=== PATIENT | female | born 1950 | race Caucasian/White ===

== ENCOUNTER 2019-10-04 13:48 | Emergency (ER) | payer OTHER, SELFPAY ==
[2019-10-04 13:49] VITALS: BP 160/74; PULSE 90; RESP 17; TEMP 36.7; O2SAT 99; BMI 17.9
--- NOTE | 2019-10-04 14:24 | EKG12_ITS ---
Test Reason : Blood Pressure : / mmHG Vent. Rate : 082 BPM Atrial Rate : 082 BPM P-R Int : 166 ms QRS Dur : 082 ms QT Int : 362 ms P-R-T Axes : 075 058 069 degrees QTc Int : 422 ms Normal sinus rhythm Normal ECG Confirmed by BRYANNA ALMANZAR MD ([id number]), assignment desk editor GLEN MARK ([id number]) on 10/06/2019 1:47:32 PM Referred By: AUGUSTIN Confirmed By:BRYANNA ALMANZAR MD
--- NOTE | 2019-10-04 14:24 | RAD_ITS ---
STUDY: X-RAY CHEST REASON FOR EXAM: Female, 68 years old. Cough and chest pain for 2 days. TECHNIQUE: PA and lateral views of the chest. COMPARISON: 10/11/2015. FINDINGS: There is an infiltrate in right middle lobe likely due to pneumonia. There is no demonstrated pleural abnormality. Normal size heart. Normal mediastinum and maria d. Normal visualized pulmonary arteries. Normal visualized aortic arch and descending thoracic aorta. Normal visualized thoracic spine. Normal visualized ribs, clavicles, and shoulders. There is no demonstrated abnormality of the visualized soft tissue structures of the upper abdomen. RAD/Chest PA and Lateral IMPRESSION: Right middle lobe infiltrate likely due to pneumonia. Electronically Signed: Gildardo Fleming MD at 14:59 EST Tel , Service support ,
[2019-10-04] MEDS: 0.9% Normal Saline 1,000 ML 999 ML IV (14:35)
[2019-10-04] MEDS: Acetaminophen 500 MG Tablet 1000 MG PO (14:35)
[2019-10-04 14:49] LABS: Absolute Lymphocyte Count 2.75 X10^3/uL (0.83-4.51); Absolute Neutrophil Count 14.6 X10^3/uL (2.0-7.7); Basophil# 0.04 X10^3/uL; Basophil% 0.2 % (0-1); Eosinophil# 0.08 X10^3/uL; Eosinophils% 0.4 % (0-5); Hematocrit 36.5 % (37-47); Hemoglobin 11.9 g/dL (12.0-15.0); Lymphocyte # 2.75 X10^3/ul (4.0); Lymphocyte % 14.4 % (19-41); Mean Corp Hgb Conc 32.6 g/dL (32-36); Mean Corpuscular Hgb 31.2 pg (27.0-32.0); Mean Corpuscular Volume 95.5 fL (81-99); Mean Platelet Vol. 9.9 fl (6.2-12.0); Monocyte# 1.49 X10^3/uL; Monocyte% 7.8 % (0-10); NRBC Flagged by Analyzer 0 % (0-5); Neutrophil # 14.58 X10^3/uL (2.7-7.7); Neutrophil % 76.6 % (47-70); Platelet Count 224 K/mm3 (150-450); RBC Distribution Width CV 13.7 % (11.6-14.6); RBC Distribution Width SD 48.5 fl (35.1-43.9); Red Blood Count 3.82 M/mm3 (4.2-5.4); White Blood Count 19.1 K/mm3 (4.4-11.0)
[2019-10-04 15:00] VITALS: BP 132/58; PULSE 84; RESP 13; O2SAT 99
[2019-10-04 15:15] LABS: Anion Gap 4 (5-15); BUN 19 mg/dL (7-18); BUN/Creat Ratio 20.8 RATIO (10-20); Calcium,Total 9.7 mg/dL (8.5-10.1); Chloride 104 mmol/L (98-107); Creatinine, Serum 0.91 mg/dL (0.55-1.02); EST Glomerular Filtration Rate 65 mL/min (>60); Est Glom Filt Rate - Afr Amer 78 mL/min (>60); Estimated Creatinine Clearance 38.32 ml/min; Glucose 93 mg/dL (74-106); Potassium 3.4 mmol/L (3.5-5.1); Sodium Level 138 mmol/L (136-145)
[2019-10-04 16:12] LABS: Lactic Acid 0.9 mmol/L (0.4-1.9)
--- NOTE | 2019-10-04 16:43 | ED.DCSUM_ITS ---
- ER Visit Summary Date of Service: 10/04/19 Chief Complaint: Cough History of Present Illness: The patient is a [address] Graham. She reports she has a cough that began 2 days ago. She denies any difficulty breathing. Her cough is nonproductive. She reports she had a fever to 100.5 degrees and chills. She does complain of myalgias and a headache that is 4-10 in severity. She does have a history of similar headaches. Patient reports that she has right-sided chest pain that began yesterday. Is a constant pain. It is aching and 7 out of 10 in severity. Is increased with deep breaths. There is no change with exertion. She did not have a flu shot this year. Physical Examination: Vitals: Stable. Afebrile. General: Well-nourished and well-developed. Head: Normocephalic atraumatic. Neck: Supple, no lymphadenopathy. No JVD. Nontender. Cardiovascular: Regular rate and rhythm. No murmurs. Respiratory: No respiratory distress. Clear to auscultation bilaterally. Abdominal: Soft, nontender, nondistended, normal bowel sounds. No guarding, rebound, or peritoneal signs. Back: Nontender. Extremities: Nontender, no edema. Skin: Normal color, no rash. Neurologic: Alert and oriented ?3. Cranial nerves II through XII are intact. Normal strength and sensation. Psych: Normal affect. Test Results: EKG is sinus at [address] changes. Troponin is negative despite greater than 12 hours of constant pain. Influenza is negative. Lactic acid is 0.9. Chem-7 shows a potassium of 3.4 and BUN of 19. CBC shows a white count of 19.1 with 77 segmented neutrophils and 14 lymphocytes. H&H is 11.9 36.5. Clinical Impression(s) from Imaging Studies Chest X-Ray 10/04/19 14:24 IMPRESSION: Right middle lobe infiltrate likely due to pneumonia. Electronically Signed: Gildardo Fleming MD at 14:59 EST Tel , Service support , Emergency Department Course and Treatment: Patient was given a dose of doxycycline IV. Her port score is 60. She feels well and would like to go home. Treatment Plan: Patient be discharged with doxycycline. Instructed to follow-up with her primary care physician in 5 days for another exam. Return to the emergency department for any worsening symptoms. Disposition: To home in improved and stable condition. Impression: 1. Pneumonia. This note was generated with [employer] dictation software. It may contain incorrect words, spelling, and punctuation that were not noted in review of the chart prior to signing ED Disposition - Plan for ED Patient: Instructions: PNEUMONIA (Adult) Prescriptions: Doxycycline 100 mg PO BID #14 cap Transmission Status: Pending to [facility]/pharmacy #[id number] Referrals: Fabian Graham MD [Primary Care Provider] - 3-5 Days
[2019-10-04 17:33] VITALS: BP 146/79; PULSE 82; RESP 20; O2SAT 97
[2019-10-04] MEDS: Doxycycline 100 MG CAPSULE PO (17:33)
--- NOTE | 2019-10-04 17:34 | ED.RN ---
THIS NURSE REVIEWED D/C INSTRUCTIONS WITH PT. PT VERBALIZED UNDERSTANDING OF INSTRUCTIONS. IV D/C. PT TOLERATED WELL. PT DENIES FURTHER NEEDS OR QUESTIONS AT THIS TIME. PT AMBULATES FROM ROOM ON OWN WITHOUT ASSISTANCE FROM STAFF
== END 2019-10-04 17:35 | disposition home or self-care (01) ==
PROVIDERS: Emergency Provider Emergency Medicine; Family Provider Family Medicine; PCP Family Medicine
DX: J18.9 Pneumonia, unspecified organism (principal); I10 Essential (primary) hypertension; Z79.899 Other long term (current) drug therapy
CPT/HCPCS: 71046; 80048; 83605; 84484; 85025; 87040; 87804; 93005; 96361; 96365; 96366; 99284; J7030; A4216

== ENCOUNTER → 2019-11-27 14:21 | Outpatient (CLI) | payer OTHER, SELFPAY ==
[2019-12-01 20:07] LABS: Alternaria tenuis <0.10 kU/L (Class 0); Ash, White <0.10 kU/L (Class 0); Aspergillus fumigatus <0.10 kU/L (Class 0); Bermuda Grass <0.10 kU/L (Class 0); Birch <0.10 kU/L (Class 0); Black Walnut <0.10 kU/L (Class 0); Cat Hair / Dander,Stand <0.10 kU/L (Class 0); Cedar, Mountain <0.10 kU/L (Class 0); Cladosporium herbarum <0.10 kU/L (Class 0); Cockroach, American <0.10 kU/L (Class 0); Cottonwood <0.10 kU/L (Class 0); D farinae Mite <0.10 kU/L (Class 0); D pteronyssinus <0.10 kU/L (Class 0); Dog Epithelia <0.10 kU/L (Class 0); Elm, American White <0.10 kU/L (Class 0); Immunoglobulin E < 2 IU/mL (6-495); Maple/Box Elder <0.10 kU/L (Class 0); Mulberry, White <0.10 kU/L (Class 0); Oak, White <0.10 kU/L (Class 0); Pecan <0.10 kU/L (Class 0); Penicillium Notatum <0.10 kU/L (Class 0); Pigweed, Rough <0.10 kU/L (Class 0); Ragweed, Short/Common <0.10 kU/L (Class 0); Russian Thistle <0.10 kU/L (Class 0); Sheep Sorrel <0.10 kU/L (Class 0); Sycamore, American <0.10 kU/L (Class 0); Timothy Grass <0.10 kU/L (Class 0)
[2019-12-01 21:23] LABS: Mouse Urine <0.10 kU/L (Class 0)
== END ==
PROVIDERS: PCP Family Medicine; Referring Provider Otolaryngology; Visit Provider Otolaryngology
DX: T78.40XA Allergy, unspecified, initial encounter (principal)
CPT/HCPCS: 36415; 82785; 86003

== ENCOUNTER → 2020-04-30 13:29 | Outpatient (CLI) | payer OTHER, SELFPAY ==
--- NOTE | 2020-04-30 13:44 | STE_ITS ---
Reason For Study: CHEST PAIN/PALPS Stress Results Protocol: Kurt Protocol Maximum Predicted HR: 149 bpm Target HR: 127 bpm % Maximum Predicted HR: 90 % DurationHeart Rate Stage (mm:ss) (bpm) BP Comment BASELINE 71 122/76 STAGE 1 3:00 110 182/58 STAGE 2 3:00 134 220/56SL SOB, BP ELEVATED, NO CHEST PAIN RECOVERY 86 150/60 Stress Duration: 6:00 mm:ss Maximum Stress HR: 134 bpm Baseline Echocardiogram Findings Stress Echo Wall motion Data Resting WM Intermediate WM Stress WM Interpretation Summary Exercise stress echo. 69-year-old lady with a history of hypertension. Stress protocol: Resting EKG demonstrates normal sinus rhythm with a rate of 73 bpm normal intervals are noted resting blood pressure is 122/76 mmHg. The patient exercised according to regular Kurt protocol for total duration of 6 minutes. The maximum heart rate was 144 bpm which was 96% of maximum predicted heart rate the maximum workload was 7 metabolic equivalents. The patient maintained sinus rhythm throughout the recording. At rest there were no ST or T wave changes noted to suggest ischemia at peak exercise upsloping ST changes only were noted with intermediate criteria for ischemia. The resting blood pressure was 122/76 with a peak blood pressure of 220/56 mmHg. Hypertensive response to exercise was noted. Stress echocardiographic images. Resting echocardiographic images demonstrated normal left ventricular systolic function with normal wall thickness there was mild mitral calcification noted. The estimated ejection fraction at rest was 55%. At peak exercise there was thickening of all barnes reduction in low ventricular cavity size and peaking of ejection fraction approximately 65%. No ischemia was noted. Conclusion: Normal exercise stress echo with no evidence of ischemia at a moderate workload. Normal resting and stress echocardiographic images. Good functional capacity. Ordering Physician: Renita Calderon Referring Physician: Renita Calderon Performed By: Prema Bledsoe, HALIE, RVT
== END ==
PROVIDERS: PCP Family Medicine; Referring Provider Registered Nurse; Visit Provider Registered Nurse
DX: R07.9 Chest pain, unspecified (principal); R00.2 Palpitations
CPT/HCPCS: 93017; 93350

== ENCOUNTER → 2020-07-08 15:55 | Outpatient (CLI) | payer OTHER, SELFPAY ==
--- NOTE | 2020-07-08 16:00 | BD_ITS ---
PROCEDURE: DUAL ENERGY X-RAY ABSORPTIOMETRY / DXA REASON FOR EXAM: Female, 69 years old. Screening exam TECHNIQUE: Bone Mineral Density (BMD) measurements of lumbar spine and bilateral hips were obtained. COMPARISON: None. FINDINGS: Lumbar Spine (L1-L2): (0.888) g/cm2/ T-score (-2.3) / Z-score (-0.6) Right Femur Total: (0.701) g/cm2/ T-score (-2.4) / Z-score (-0.9) BD/Dexa Bone Density Study IMPRESSION: The patient is considered osteopenic, as outlined above, according to World Health Organization (WHO) criteria. Fracture risk is moderate. Reference Information: The T-score is the number of standard deviations above or below the standard which is normal for young adults at their peak bone mineral density. The World Health Organization (WHO) interprets the T-scores as follows: Above -1 Normal bone density Between -1 and -2.5 Osteopenia Equal to / or below -2.5 Osteoporosis As a practical clinical guideline, osteopenia may be graded as follows: Mild -1 through -1.5 Moderate -1.6 through -2.0 Severe -2.1 through -2.4 The Z-score is the number of standard deviations above or below age-matched controls. A Z-score of less than -1.5 would be considered abnormal. References: 1. NIH Osteoporosis and Related Bone Diseases http://www.osteo.org 2. International Society for Clinical Densitometry http://www.iscd.org 3. National Osteoporosis Foundation http://www.nof.org Electronically Signed: Reilly Klein MD at 23:55 EDT , Service support ,
== END ==
PROVIDERS: PCP Family Medicine; Referring Provider Registered Nurse; Visit Provider Registered Nurse
DX: Z78.0 Asymptomatic menopausal state (principal)
CPT/HCPCS: 77080

== ENCOUNTER 2020-11-19 10:09 | Emergency (ER) | payer OTHER, SELFPAY ==
[2020-11-19 10:09] VITALS: BP 93/49; PULSE 84; RESP 18; TEMP 36.2; O2SAT 98; BMI 18.9
--- NOTE | 2020-11-19 10:41 | CT_ITS ---
STUDY: CT ABDOMEN AND PELVIS WITH CONTRAST REASON FOR EXAM: Female, 70 years old. DIARRHEA SINCE SUNDAY. ABDOMINAL PAIN. RADIATION DOSAGE (If Supplied By Facility): CTDIvol = ( 7.505 ) mGy, DLP = ( 238.60 ) mGycm TECHNIQUE: Transaxial images were obtained from the dome of the diaphragm to the symphysis pubis without oral contrast. IV 100mL Isovue-370 was administered. Sagittal and coronal images were reconstructed. Individualized dose optimization techniques were used for this CT. COMPARISON: None. FINDINGS: There is a 5.5 mm well-defined nodule in the central inferior portion of the right breast. Minimal increased markings in the lingular segment of the left upper lobe suggestive of atelectasis. The visualized portions of the heart are within normal limits. Normal liver. Normal gallbladder and extrahepatic biliary system. Normal spleen. Normal pancreas. Normal bilateral adrenal glands. 1.3 cm cyst in the upper pole of the right kidney. Normal left kidney. Normal visualized stomach. Normal small intestine. There are scattered colonic diverticula consistent with diverticulosis. The appendix is visualized and appears normal. There is diffuse atherosclerotic calcification of the abdominal aorta, without a demonstrated aneurysm. Normal inferior vena cava. There is borderline retroperitoneal lymphadenopathy with enlarged nodes no greater than 10mm in the short axis diameter. Normal urinary bladder. There is enlargement of uterus for the patient''s stated age. Within the body of uterus, is a 1.3 cm x 1.3 cm fibroid. Normal abdominal wall. There are degenerative changes of the visualized lumbar spine. Mild dextroscoliosis. CT/Abdomen/Pelvis W IV Cont ONLY IMPRESSION: Fibroid uterus. Sigmoid diverticulosis. Electronically Signed: Chris Mejia MD at 12:19 EST , Service support ,
--- NOTE | 2020-11-19 10:41 | ED.DCSUM_ITS ---
History of Present Illness Chief Complaint: Nausea/Vomiting/Diarrhea Informant: Patient Narrative: 70-year-old female presenting with diarrhea and nausea. She states she has been this way for the last 5 days. She does report a history of having problems with her diet for many years. She states that this started being worse after she had C. difficile colitis. Patient denies any recent antibiotics use. She states that she ate something that did not agree with her now she has diarrhea and nausea. She has generalized abdominal pain. She states that she has not followed up to have this problem addressed because she always feels like she is going to get better. She denies fever, urinary complaints, vaginal complaints, black or bloody stools. She does relate a history of having to eat very slowly and only certain foods. She is also lactose intolerant. She states that if she goes to her daughter's house to spend time with the family she cannot eat over there because of the high activity and it makes her nauseous. - Past Medical History (1) Gastroenteritis Status: Chronic (2) History of Clostridium difficile colitis Status: Chronic (3) Osteoarthritis Status: Chronic Past Medical History - Allergies and Home Meds Allergies/Adverse Reactions: Allergies Sulfa (Sulfonamide Antibiotics) Allergy (Verified 11/19/20 10:11) Unknown azithromycin [From Zithromax Z-Bruce] Adverse Reaction (Verified 11/19/20 10:11) Nausea Primary Care Physician: Fabian Graham MD [Primary Care Provider] - Prior records reviewed: Yes Past Medical History: - - Reviewed in problem list Surgical History: noncontributory Lives: Alone Smoking Status: Never smoker Alcohol: None Drugs: None - Family History Paternal Family History: Family History (Last Updated 02/14/18 @ 13:32 by Zenobia Thayer) Mother Hypertension Family History: Reports: No pertinent history - No History of colon cancer in first-degree family relative. Review of Systems General: Denies: Chills, Fever, Sweats Eyes: Denies: Visual changes - bilaterally, Diplopia ENT: Denies: Rhinorrhea, Sore throat Cardiovascular: Denies: Chest pain, Palpitations Respiratory: Denies: Dyspnea, Cough, Dyspnea on exertion Gastrointestinal: Reports: Abdominal pain, Nausea, Diarrhea Genitourinary: Denies: Dysuria, Hematuria, Frequency Musculoskeletal: Denies: Back pain, Extremity Pain Skin: Denies: Rash, Wounds Neurological: Denies: Headache, Weakness, Numbness Psych: Denies: Depression, Anxiety Physical Exam Vital Signs/Narrative: Vital Signs Temp Pulse Resp BP Pulse Ox 11/19/20 10:09 97.1 F L 84 18 93/49 L 98 General: Well nourished, No Acute Distress Head: Normocephalic, Atraumatic Eyes: Perrl, EOMI. Negative for: Scleral icterus ENT: Moist mucous membranes, No rhinorrhea Cardiovascular: Regular rate, Regular rhythm Respiratory: No distress, CTA bilaterally Abdomen: Soft, Nondistended, Tender - Mild generalized tenderness. Abdomen is nonperitoneal. No focal tenderness palpated. Extremities: Nontender, No edema Skin: Normal color, No rash. Negative for: Cyanosis, Diaphoresis Neurological: Alert, Oriented x3, Cranial nerves II-XII grossly intact Psychological: Normal affect, Normal Mood Diagnostic/Tx/Re-eval Clinical Impression(s) from Imaging Studies Abdomen/Pelvis CT 11/19/20 10:41 IMPRESSION: Fibroid uterus. Sigmoid diverticulosis. Electronically Signed: Chris Mejia MD at 12:19 EST , Service support , Laboratory Data 11/19/20 11/19/20 11/19/20 11:00 11:00 12:20 WBC 7.5 RBC 4.08 L Hgb 12.5 Hct 38.1 MCV 93.4 MCH 30.6 MCHC 32.8 RDW Std Deviation 45.0 H RDW Coeff of Pat 13.1 Plt Count 283 MPV 10.6 Immature Gran % (Auto) 0.500 Neut % (Auto) 73.9 H Lymph % (Auto) 21.1 [place] % (Auto) 4.1 Eos % (Auto) 0.1 Baso % (Auto) 0.3 Absolute Neuts (auto) 5.5 Absolute Lymphs (auto) 1.58 Nucleated RBC % 0 Sodium 135 L Potassium 3.7 Chloride 100 Carbon Dioxide 19.0 L Anion Gap 16 H BUN 29 H Creatinine 1.16 H Estim Creat Clear Calc 30.45 Est GFR (MDRD) Af Amer 59 L Est GFR (MDRD) Non-Af 49 L BUN/Creatinine Ratio 25.0 H Glucose 67 L Calcium 9.9 Total Bilirubin 0.50 AST 37 ALT 28 Alkaline Phosphatase 124 H Total Protein 7.7 Albumin 3.9 Globulin 3.8 Albumin/Globulin Ratio 1.0 Lipase 60 L Urine Color Yellow Urine Clarity Clear Urine pH 5.0 Ur Specific [place] 1.015 Urine Protein 15 H Urine Glucose (UA) Normal Urine Ketones 150 H Urine Occult Blood Negative Urine Nitrite Negative Urine Bilirubin Negative Urine Urobilinogen Normal Ur Leukocyte Esterase Negative Urine RBC 0 SEEN Urine WBC 0 SEEN Ur Squamous Epith Cells 0 SEEN Urine Bacteria 0 SEEN Urine Mucus 0 SEEN - Medical Decision Making Presents for concern of dehydration as she has had chronic diarrhea which is worsened over the last several days. She does state that she has generalized abdominal pain as well. Patient's lab work shows that she is dehydrated and she is given a liter of IV fluids. She was given Zofran for her nausea and on reevaluation she felt improved. CT of the abdomen pelvis shows no acute process. Patient will be given a prescription for Zofran for home so that she can stay hydrated. I recommended that she follow-up with her PCP for possible GI referral. She acknowledged understanding. Patient to be discharged at this time. Impression: 1. Nausea 2. Diarrhea 3. Abdominal pain ED Disposition - Plan for ED Patient: Disposition: Home or Assisted Living Instructions: ED Vomiting and Diarrhea ... Prescriptions: Ondansetron [Zofran Odt] 4 mg PO Q8H PRN PRN #14 tab PRN Reason: Nausea Transmission Status: Received by [facility]/pharmacy #[id number] Referrals: Fabian Graham MD [Primary Care Provider] -
[2020-11-19] MEDS: 0.9% Normal Saline 1,000 ML 1000 ML IV (11:01)
[2020-11-19] MEDS: Ondansetron 4 MG/2 ML Vial IV (11:03)
[2020-11-19 11:19] LABS: Absolute Lymphocyte Count 1.58 X10^3/uL (0.83-4.51); Absolute Neutrophil Count 5.5 X10^3/uL (2.0-7.7); Basophil# 0.02 X10^3/uL; Basophil% 0.3 % (0-1); Eosinophil# 0.01 X10^3/uL; Eosinophils% 0.1 % (0-5); Hematocrit 38.1 % (37-47); Hemoglobin 12.5 g/dL (12.0-15.0); Lymphocyte # 1.58 X10^3/ul (4.0); Lymphocyte % 21.1 % (19-41); Mean Corp Hgb Conc 32.8 g/dL (32-36); Mean Corpuscular Hgb 30.6 pg (27.0-32.0); Mean Corpuscular Volume 93.4 fL (81-99); Mean Platelet Vol. 10.6 fl (6.2-12.0); Monocyte# 0.31 X10^3/uL; Monocyte% 4.1 % (0-10); NRBC Flagged by Analyzer 0 % (0-5); Neutrophil # 5.54 X10^3/uL (2.7-7.7); Neutrophil % 73.9 % (47-70); Platelet Count 283 K/mm3 (150-450); RBC Distribution Width CV 13.1 % (11.6-14.6); Red Blood Count 4.08 M/mm3 (4.2-5.4); White Blood Count 7.5 K/mm3 (4.4-11.0)
[2020-11-19 11:37] LABS: AST(SGOT) 37 U/L (15-37); Alanine Aminotransfer ALT/SGPT 28 U/L (13-56); Albumin, Serum 3.9 g/dL (3.2-5.0); Alkaline Phosphatase 124 U/L (45-117); Anion Gap 16 (5-15); BUN 29 mg/dL (7-18); Calcium,Total 9.9 mg/dL (8.5-10.1); Chloride 100 mmol/L (98-107); Creatinine, Serum 1.16 mg/dL (0.55-1.02); EST Glomerular Filtration Rate 49 mL/min (>60); Est Glom Filt Rate - Afr Amer 59 mL/min (>60); Estimated Creatinine Clearance 30.45 ml/min; Globulin 3.8 g/dL (2.2-4.2); Glucose 67 mg/dL (74-106); Lipase 60 U/L (73-393); Potassium 3.7 mmol/L (3.5-5.1); Protein, Total 7.7 g/dL (6.4-8.2); Sodium Level 135 mmol/L (136-145)
[2020-11-19 12:24] VITALS: BP 147/46; PULSE 84; RESP 16; O2SAT 99
[2020-11-19 12:26] LABS: Bacteria 0 SEEN /hpf (None Seen); Mucous, Urine 0 SEEN /hpf (<or=2+); Red Blood Cells-Urine 0 SEEN /hpf (0-5); Squamous Epithelial Cells - UA 0 SEEN /hpf (5-10); White Blood Cells 0 SEEN /hpf (0-5)
[2020-11-19 12:30] LABS: Color, Urine Yellow (Yellow); Glucose, Dipstick Normal (Normal); Leukocyte Esterase-Dipstick Negative /ul (Negative); Nitrite-Dipstick Negative (Negative); Occult Blood-Urine Negative /ul (Negative); Protein-Dipstick 15 mg/dl (Negative); Specific Gravity, Urine 1.015 (1.002-1.030); Urine Bilirubin Dipstick Negative (Negative); Urine Clarity Clear (Clear); Urine Urobilinogen Normal (Normal)
[2020-11-19 12:34] LABS: Ketone-Dipstick 150 mg/dl (Negative)
== END 2020-11-19 12:52 | disposition home or self-care (01) ==
PROVIDERS: Emergency Provider Student in an Organized Health Care Education/Training Program; PCP Family Medicine
DX: R11.2 Nausea with vomiting, unspecified (principal); R19.7 Diarrhea, unspecified; R10.9 Unspecified abdominal pain; Z86.19 Personal history of other infectious and parasitic diseases
CPT/HCPCS: 74177; 80053; 81001; 83690; 85025; 96374; 99283; J7030; Q9967; J2405

== ENCOUNTER → 2020-11-22 09:34 | Outpatient (CLI) | payer OTHER, SELFPAY ==
[2020-11-22 07:51] VITALS: BMI 18.9
[2020-11-22] MEDS: 0.9% Normal Saline 1,000 ML 666.7 ML IV ×2 (09:59→11:31)
[2020-11-22] MEDS: 0.9% NaCl Peripheral Flush Adult/Peds IV (09:59)
[2020-11-22 10:00] VITALS: BP 135/41; PULSE 79; RESP 16; TEMP 36.1; O2SAT 99; BMI 18.9
[2020-11-22 13:07] VITALS: BP 138/54; PULSE 79
== END ==
PROVIDERS: PCP Family Medicine; Referring Provider Surgery; Visit Provider Surgery
DX: R19.7 Diarrhea, unspecified (principal); E86.0 Dehydration
CPT/HCPCS: 96369; 96370 ×2; 96360; 96361; J7030; A4216

== ENCOUNTER 2020-11-23 05:22 | Day surgery (SDC) | payer OTHER, SELFPAY ==
[2020-11-22 07:51] VITALS: BMI 18.9
[2020-11-22 10:00] VITALS: BMI 18.9
[2020-11-23] VITALS (7 sets, daily range): BP systolic 143–175; BP diastolic 59–75; PULSE 72–81; RESP 16; TEMP 36.1–36.7; O2SAT 97–100; BMI 18.1
--- NOTE | 2020-11-23 06:06 | PCM.HP.BLA ---
Problem List (1) Diarrhea Status: Acute Qualifiers: (2) Dehydration Status: Acute History and Physical Date of Admission: 11/23/20 Intake Visit Reasons: diarrhea Chief Complaint: diarrhea Allergies Sulfa (Sulfonamide Antibiotics) Allergy (Verified 11/22/20 07:53) Unknown azithromycin [From Zithromax Z-Bruce] Adverse Reaction (Verified 11/22/20 07:53) Nausea Medications Glucosamine/MSM/Chondroitin A [Glucosamine Chondroit MSM Tab] 1 ea PO DAILY 10/11/15 [History Confirmed 11/22/20] Lisinopril [Zestril] 20 mg PO DAILY 10/11/15 [History Confirmed 11/22/20] Multivitamin [Daily Multiple Vitamin] 1 ea PO DAILY 10/11/15 [History Confirmed 11/22/20] Loratadine [Claritin] 10 mg PO DAILY 02/04/17 [History Confirmed 11/22/20] hydrochlorothiazide 12.5 mg capsule 12.5 mg PO QDAY 02/14/18 [History Confirmed 11/22/20] potassium chloride 20 mEq tablet,extended release 8 meq PO BID 02/14/18 [History Confirmed 11/22/20] Ondansetron [Zofran Odt] 4 mg PO Q8H PRN PRN #14 tab 11/19/20 [Rx Confirmed 11/22/20] PFSH Medical History Hemorrhoid (Acute) History of Clostridium difficile colitis (Chronic) Osteoarthritis (Chronic) Chronic back pain (Acute) Hypertension (Chronic) Syncope (Acute) Gastroenteritis (Chronic) Diarrhea (Acute) Fatigue (Acute) Nausea (Acute) Sleep apnea (Acute) Weight loss (Acute) Surgical History S/P tonsillectomy (Acute) S/P colonoscopy (Acute ~01/2007) Family History (Updated 11/22/20 @ 07:51 by Shelby Gallego) Mother Hypertension Father Heart disease Cancer skin cancer Social History (Updated 11/22/20 @ 08:[address] Mikael Dominguez MD) Smoking Status: Never smoker alcohol intake: never substance use type: does not use HPI HPI HPI: LAURENCE KOROMA, is a 70 F who presents to the office today for surgical consultation regarding an acute exacerbation of her diarrhea. She was referred by Dr. Fabian Graham and a written copy of my surgical consult recommendations will return to him. This is a 70-year-old female. She has had problems with diarrhea dating all the way back to 2006. She states that she was hospitalized for 13 days with what ended up being C. difficile colitis. She had a colonoscopy done by Dr. Arnold Millan at that time. The patient states that it was very uncomfortable throughout the entire procedure and that because of that she has been very hesitant to proceed with another. She was actually seen by Dr. Alonzo from 2 years ago when his colonoscopy was recommended. The patient declined to did not schedule because of her previous episode. She states a week ago she had a takeout meal from [employer]. Soon thereafter she became ill. She had profuse diarrhea. She states that as she has been prescribed before she tried some Imodium. She states that first 4 days running she had diarrhea felt she was dehydrated she started taking her electrolyte drink. Now this is similar to multiple episodes that she has had. She did not notice any bright red blood per rectum or melena. Her concern this occasion is that the episode has lasted longer. It is for that reason then she went to the [facility] emergency room on November 19, 2020. A CT scan was obtained with contrast. This demonstrated an incidental 5.5 mm well-defined nodule in the central inferior portion of the right breast. She had had screening mammography done at [facility] May 2020 which were interpreted as normal. The CT scan also showed a fibroid uterus and sigmoid diverticulosis. There was borderline retroperitoneal adenopathy. To my view the gallbladder wall is very prominent. It measures only 2 mm. Radiology interpreted as normal. Her laboratory demonstrated a BUN of 29 and a creatinine of 1.16 with an estimated GFR of 49. Albumin was 3.9. Total protein 7.7. Lipase was 60. Alkaline phosphatase slightly elevated 124. The remainder of the liver function tests were normal. Potassium was normal at 3.7. Her white blood cell count was 7.5 with a hemoglobin 12.5 hematocrit 38.1 platelet count 283,000 with 73.9% neutrophils. The patient by report received a liter IV fluid and was discharged home. Then as an outpatient she submitted a stool analysis to the [facility]. Initial reports suggest that C. difficile and fecal leukocytes are still pending. Her fecal fat was negative. Other review suggesting Shigella and E. coli and Campylobacter and Shiga toxin and Salmonella were all not detected Abdomen/Pelvis CT [facility] [address] [place] [address] Abdomen/Pelvis W IV Cont ONLY MR#: [id number]:[id number] Name: LAURENCE KOROMA [facility] #:[id number] : 1950F 70 From: Chris Mejia MD PCP:Dr. Fabian Graham MD Status:REG ER Study:Abdomen/Pelvis W IV Cont ONLY Date of Exam:11/19/20 Exam#[id number] Ordering Dr: Garry Edwards DO STUDY: CT ABDOMEN AND PELVIS WITH CONTRAST REASON FOR EXAM: Female, 70 years old. DIARRHEA SINCE SUNDAY. ABDOMINAL PAIN. RADIATION DOSAGE (If Supplied By Facility): CTDIvol = ( 7.505 ) mGy, DLP = ( 238.60 ) mGycm TECHNIQUE: Transaxial images were obtained from the dome of the diaphragm to the symphysis pubis without oral contrast. IV 100mL Isovue-370 was administered. Sagittal and coronal images were reconstructed. Individualized dose optimization techniques were used for this CT. COMPARISON: None. FINDINGS: There is a 5.5 mm well-defined nodule in the central inferior portion of the right breast. Minimal increased markings in the lingular segment of the left upper lobe suggestive of atelectasis. The visualized portions of the heart are within normal limits. Normal liver. Normal gallbladder and extrahepatic biliary system. Normal spleen. Normal pancreas. Normal bilateral adrenal glands. 1.3 cm cyst in the upper pole of the right kidney. Normal left kidney. Normal visualized stomach. Normal small intestine. There are scattered colonic diverticula consistent with diverticulosis. The appendix is visualized and appears normal. There is diffuse atherosclerotic calcification of the abdominal aorta, without a demonstrated aneurysm. Normal inferior vena cava. There is borderline retroperitoneal lymphadenopathy with enlarged nodes no greater than 10mm in the short axis diameter. Normal urinary bladder. There is enlargement of uterus for the patient''s stated age. Within the body of uterus, is a 1.3 cm x 1.3 cm fibroid. Normal abdominal wall. There are degenerative changes of the visualized lumbar spine. Mild dextroscoliosis. CT/Abdomen/Pelvis W IV Cont ONLY IMPRESSION: Fibroid uterus. Sigmoid diverticulosis. Electronically Signed: Chris Mejia MD at 12:19 EST , Service support , HPI HPI HPI: LAURENCE KOROMA, is a 70 F who presents to the office today for Exam Const General: cooperative, frail appearing Nutritional Appearance: underweight Orientation: alert, awake Other: Patient appears fatigued and weak, appears somewhat pale HENMT Head: normal to inspection Eyes General: appearance normal, both eyes and all related structures Resp Effort & Inspection: normal respiratory effort Auscultation: clear to auscultation bilaterally Cardio Rate: regular rate Rhythm: regular rhythm GI Palpation: soft, no hepatosplenomegaly Auscultation: normal bowel sounds Musc Cervical Spine: normal cervical lordosis Neuro General: alert Cognition: normal cognition Extrem General: no calf tenderness Psych Mood: anxious mood Assessment & Plan Problems 1. Diarrhea, unspecified type R19.7 2. Dehydration E86.0 Plan When just discussing treatment options with the patient she became acutely unwell feeling lightheaded and dizzy. She was placed on the exam table and had a cool washcloth applied. Her heart rate did remain steady and easily palpable at the wrist. This seemed to be more of a anxiety response. I propose for the patient a combined esophagogastroduodenoscopy with possible biopsy and colonoscopy with possible biopsy or polypectomy as indicated. Inspection for eosinophilic esophagitis and H. pylori duodenal biopsy and microcytic colitis will be pursued. Subsequent to this if not revealing then I would consider a outpatient gallbladder ultrasound and hepatobiliary scan. Apparently the patient's mother later in her age had profuse diarrhea and ended up having abnormal gallbladder testing had her gallbladder removed and the diarrhea was resolved. If none of the above is revealing that I would consider either bar tacker sewing machine or GI referral. Her findings at that time would then be much more consistent with irritable bowel syndrome. It is of additional note that as of November 17, 2020 COVID-19 testing was negative. In detail with the patient's daughter present I discussed technique benefit risk complications alternatives. She has had an opportunity to ask and have questions answered. I have concerns that she will not be able to tolerate her bowel prep. Therefore 1 day prior to the planned prep I anticipate an outpatient treatment with 2 L of normal saline. Her incidentally identified right breast mass on CT apparently was not noted on her [facility] mammograms of May 2020. With that in mind I recommend that we obtain a right breast ultrasound. We are still awaiting her [facility] results of her fecal leukocytes and C. difficile I appreciate the opportunity of assisting with her surgical care. 70 minutes was spent in chart review and direct patient interview and planning management. Copy: Dr. Fabian Dominguez M.D., F.A.C.S. I have re-examined the patient. There are no clinical changes since date of exam. Procedure Criteria Procedure Type: Elective COVID Risk Discussion: The surgeon/proceduralist and patient have discussed in detail the risk of exposure to and/or potential harm posed by the COVID-19 virus with having a surgery/procedure at this time versus the risk of delaying the surgery/procedure. It is not possible to know either the risk of delaying the surgery or procedure or chance of getting an infection with perfect accuracy, but a joint decision was made between the patient and the surgeon/proceduralist to proceed at this time with the scheduled surgery/procedure as indicated on the consent form.
[2020-11-23] MEDS: Lactated Ringers 1,000 ML 100 ML IV (06:08)
--- NOTE | 2020-11-23 06:30 | EGD_PTH ---
PATIENT: LAURENCE KOROMA LOC: EN U#:[id number] AGE/SX: 70/F ROOM: RE11/23/[address]: Dr. Mikael Dominguez MD : 1950 BED: DIS: 11/23/2020 SPEC #: [id number] RECD: 11/23/20 11:48 STATUS: [place] #: [id number] YAMILET: 11/23/20 06:[address]: Mikael Dominguez DEPT: SURGICAL PATHOLOGY RECD BY: Starla Zarco ENTERED: 11/23/20 12:49 SP TYPE: EGD BIOPSY CRYSTAL DR: Dr. Fabian Graham MD Tissues: A - Duodenum, NOS B - Gastric mucous membrane C - Esophagus, NOS D - Esophagus, NOS E - Cecum, NOS F - COLON BIOPSY G - Ascending colon Procedures: Surgery Specimen Level IV HEADER OPERATION: [place] [place] DIAGNOSIS: Diarrhea, dehydration TISSUE SUBMITTED: A - Duodenum biopsy, B - Antrum biopsy for H. pylori and path, C - Distal esophagus biopsy, D - Mid esophagus biopsy, E - Biopsy of cecal polyp, F - Random colon biopsies, G - Ascending colon biopsy MICROSCOPIC DIAGNOSIS A. Duodenum, biopsy: Fragments of duodenal mucosa with focal minimal superficial erosion and associated acute and chronic inflammation. B. Antrum, biopsy: Mild gastritis. See microscopic description and comment. C. Distal esophagus, biopsy: Fragments of squamous mucosa with mild chronic inflammation. D. Mid esophagus, biopsy: Fragments of squamous epithelium, no pathologic diagnosis. E. Cecal polyp, biopsy: A fragment of colonic mucosa with focal minimal adenomatous changes. F. Colon, random biopsy: Fragments of colonic mucosa, no pathologic diagnosis. G. Ascending colon, biopsy: A fragment of colonic mucosa, no pathologic diagnosis. SJ:carmen 11/24/2020 COMMENT B. The results of immunohistochemistry for Helicobacter pylori will be reported separately ([id number]). Case has been reviewed in consultation with Dr. Raymond who concurs with the above diagnosis. IDC:AM MICROSCOPIC DESCRIPTION Slides are reviewed. B. The specimen shows fragments of gastric mucosa with chronic inflammatory cell infiltrates in the lamina propria consisting of lymphocytes and plasma cells, consistent with mild chronic gastritis. GROSS DESCRIPTION A - Received in fixative is one container labeled with the patient's name and designated duodenum biopsy. The specimen consists of multiple irregular fragments of light cifuentes soft tissue that in aggregate measure 1 x 0.3 x 0.1 cm. The specimen is totally submitted in one cassette. B - Received in fixative is one container labeled with the patient's name and designated antrum biopsy. The specimen consists of one irregular fragment of light cifuentes soft tissue that measures 0.3 x 0.3 x 0.1 cm. The specimen is totally submitted in one cassette. C - Received in fixative is one container labeled with the patient's name and designated distal esophagus. The specimen consists of multiple irregular fragments of light cifuentes soft tissue that in aggregate measure 0.5 x 0.5 x 0.1 cm. The specimen is totally submitted in one cassette. D - Received in fixative is one container labeled with the patient's name and designated mid esophagus biopsy. The specimen consists of two irregular fragments of light cifuentes soft tissue that in aggregate measure 0.5 x 0.2 x 0.1 cm. The specimen is totally submitted in one cassette. E - Received in fixative is one container labeled with the patient's name and designated biopsy of cecal polyp. The specimen consists of multiple irregular fragments of light cifuentes soft tissue that in aggregate measure 0.6 x 0.4 x 0.1 cm. The specimen is totally submitted in one cassette. F - Received in fixative is one container labeled with the patient's name and designated random colon biopsy. The specimen consists of multiple irregular fragments of light cifuentes soft tissue that in aggregate measure 1.5 x 0.5 x 0.1 cm. The specimen is totally submitted in one cassette. G - Received in fixative is one container labeled with the patient's name and designated ascending colon biopsy. The specimen consists of one irregular fragment of light cifuentes soft tissue that measures 0.3 x 0.2 x 0.1 cm. The specimen is totally submitted in one cassette. / SJ:rg 11/23/20 TC:3 CPT: 33544 x7
--- NOTE | 2020-11-23 06:30 | IMM_PTH ---
PATIENT: LAURENCE KOROMA LOC: EN U#:[id number] AGE/SX: 70/F ROOM: RE11/23/[address]: Dr. Mikael Dominguez MD : 1950 BED: DIS: 11/23/2020 SPEC #: [id number] RECD: 11/23/20 14:46 STATUS: [place] #: [id number] YAMILET: 11/23/20 06:[address]: Mikael Dominguez DEPT: IMMUNOHISTOCHEMISTRY RECD BY: Sirisha Gallagher ENTERED: 11/23/20 14:46 SP TYPE: IMMUNO OTHR DR: Dr. Fabian Graham MD Tissues: B - Stomach, NOS Procedures: H Pylori (initial) PHYSICIAN & INSTITUTION [place] [address] SPECIMEN INFORMATION: Tissue Source: B - Antrum biopsy Clinical Info: Diarrhea, dehydration Specimen Number: [id number] CPT code: 37896 METHODOLOGY: Deparaffinized sections of prefer/formalin-fixed tissue or PAP/DQ stained slides are incubated with monoclonal/polyclonal antibodies/oligonucleotide probes. Localization is made via biotin free immunoperoxidase method. Appropriate controls are performed and reacted as expected. Results on target cell population are indicated in the following table: RESULTS: ANTIBODY / CLONE RESULT Block B H Pylori (polyclonal) negative These tests were developed and their performance characteristics determined by [facility]. They may not have been cleared or approved by the U.S. Food and Drug Administration. The FDA has determined that such clearance or approval is not necessary. INTERPRETATION: B. Antrum, biopsy: Negative for Helicobacter pylori organisms. SJ:carmen 11/24/2020
--- NOTE | 2020-11-23 07:24 | OP.CCLET_ITS ---
11/23/2020 Fabian Graham MD Re : Upper GI endoscopy procedure for Paz Harrington Dear Dr. Graham This procedure was performed on Monday, November 23, 2020. My impressions and recommendations are as follows: Impressions : - LA Grade A reflux esophagitis. Biopsied. - Mild Schatzki ring. - 2 cm hiatal hernia. - Normal mid esophagus. Biopsied. - Chronic gastritis. Biopsied. - Duodenitis. Biopsied. Recommendations : - Discharge patient to home. - Resume previous diet. - Continue present medications. - Telephone my office for pathology results in 1 week. My findings are described in the full procedure note, which is enclosed. If I can be of further assistance, please feel free to contact me at Doctor phone number(s): Work: . Sincerely, Mikael Dominguez MD 11/23/2020 7:24:00 AM This report has been signed electronically.
--- NOTE | 2020-11-23 07:24 | OP.EGD_ITS ---
Patient Name: Paz Harrington Procedure Date: 11/23/2020 6:10 AM Date of : 1950 Age: 70 Procedure: Upper GI endoscopy Indications: Generalized abdominal pain Providers: Mikael Dominguez MD Referring MD: Mikael Dominguez MD Medicines: See the Anesthesia note for documentation of the administered medications Complications: No immediate complications. Procedure: Pre-Anesthesia Assessment: - Prior to the procedure, a History and Physical was performed, and patient medications and allergies were reviewed. The patient's tolerance of previous anesthesia was also reviewed. The risks and benefits of the procedure and the sedation options and risks were discussed with the patient. All questions were answered, and informed consent was obtained. Prior Anticoagulants: The patient has taken no previous anticoagulant or antiplatelet agents. ASA Grade Assessment: II - A patient with mild systemic disease. After reviewing the risks and benefits, the patient was deemed in satisfactory condition to undergo the procedure. After obtaining informed consent, the endoscope was passed under direct vision. Throughout the procedure, the patient's blood pressure, pulse, and oxygen saturations were monitored continuously. The gastroscope was introduced through the mouth, and advanced to the second part of duodenum. The upper GI endoscopy was accomplished without difficulty. The patient tolerated the procedure well. Scope In: 6:41:27 AM Scope Out: 6:50:07 AM Total Procedure Duration Time 0 hours 8 minutes 40 seconds Findings: LA Grade A (one or more mucosal breaks less than 5 mm, not extending between tops of 2 mucosal folds) esophagitis with no bleeding was found 38 cm from the incisors. Biopsies were taken with a cold forceps for histology. A mild Schatzki ring was found at the gastroesophageal junction. A 2 cm hiatal hernia was present. The mid esophagus was normal. Biopsies were taken with a cold forceps for histology. Diffuse mild inflammation characterized by erythema was found in the gastric antrum. Biopsies were taken with a cold forceps for histology. Diffuse moderate inflammation characterized by shallow ulcerations was found in the duodenal bulb. Biopsies were taken with a cold forceps for histology. Impression: - LA Grade A reflux esophagitis. Biopsied. - Mild Schatzki ring. - 2 cm hiatal hernia. - Normal mid esophagus. Biopsied. - Chronic gastritis. Biopsied. - Duodenitis. Biopsied. Recommendation: - Discharge patient to home. - Resume previous diet. - Continue present medications. - Telephone my office for pathology results in 1 week. Procedure Code(s): --- Professional --- 01904, Esophagogastroduodenoscopy, flexible, transoral; with biopsy, single or multiple Diagnosis Code(s): --- Professional --- K21.0, Gastro-esophageal reflux disease with esophagitis K22.2, Esophageal obstruction K44.9, Diaphragmatic hernia without obstruction or gangrene K29.50, Unspecified chronic gastritis without bleeding K29.80, Duodenitis without bleeding R10.84, Generalized abdominal pain CPT copyright 2017 [employer]. All rights reserved. The codes documented in this report are preliminary and upon type caster review may be revised to meet current compliance requirements. Mikael Dominguez MD 11/23/2020 7:24:00 AM This report has been signed electronically. Number of Addenda: 0 Note Initiated On: 11/23/2020 6:10 AM
--- NOTE | 2020-11-23 07:29 | OP.CCLET_ITS ---
11/23/2020 Fabian Graham MD Re : Colonoscopy procedure for Paz Harrington Dear Dr. Graham This procedure was performed on Monday, November 23, 2020. My impressions and recommendations are as follows: Impressions : - Decreased sphincter tone found on digital rectal exam. - Diverticulosis in the sigmoid colon. - Diverticulosis in the entire examined colon. - One 5 mm polyp in the cecum, removed with a cold biopsy forceps. Resected and retrieved. - Multiple non-bleeding colonic angiodysplastic lesions. Biopsied. - Tortuous colon. Biopsied. Recommendations : - Discharge patient to home. - Resume previous diet. - Continue present medications. - Repeat colonoscopy in 5 years for surveillance based on pathology results. - Telephone my office for pathology results in 1 week. My findings are described in the full procedure note, which is enclosed. If I can be of further assistance, please feel free to contact me at Doctor phone number(s): Work: . Sincerely, Mikael Dominguez MD 11/23/2020 7:28:53 AM This report has been signed electronically.
--- NOTE | 2020-11-23 07:29 | OP.COLON_ITS ---
Patient Name: Paz Harrington Procedure Date: 11/23/2020 6:52 AM Date of : 1950 Age: 70 Procedure: Colonoscopy Indications: Chronic diarrhea Providers: Mikael Dominguez MD Referring MD: Mikael Dominguez MD Medicines: See the Anesthesia note for documentation of the administered medications Patient Profile: Last Colonoscopy: 2006. Complications: No immediate complications. Procedure: Pre-Anesthesia Assessment: - Prior to the procedure, a History and Physical was performed, and patient medications and allergies were reviewed. The patient's tolerance of previous anesthesia was also reviewed. The risks and benefits of the procedure and the sedation options and risks were discussed with the patient. All questions were answered, and informed consent was obtained. Prior Anticoagulants: The patient has taken no previous anticoagulant or antiplatelet agents. ASA Grade Assessment: II - A patient with mild systemic disease. After reviewing the risks and benefits, the patient was deemed in satisfactory condition to undergo the procedure. After I obtained informed consent, the scope was passed under direct vision. Throughout the procedure, the patient's blood pressure, pulse, and oxygen saturations were monitored continuously. The Colonoscope was introduced through the anus and advanced to the cecum, identified by appendiceal orifice and ileocecal valve. The colonoscopy was performed without difficulty. The patient tolerated the procedure well. The quality of the bowel preparation was good. The ileocecal valve and the appendiceal orifice were photographed. Scope In: 6:54:22 AM Scope Withdrawal Time 0 hours 12 minutes 55 seconds Scope Out: 7:14:44 AM Total Procedure Duration Time 0 hours 20 minutes 22 seconds Findings: The digital rectal exam findings include decreased sphincter tone. Multiple diverticula were found in the sigmoid colon. Scattered diverticula were found in the entire colon. A 5 mm polyp was found in the cecum. The polyp was sessile. The polyp was removed with a cold biopsy forceps. Resection and retrieval were complete. Multiple small patchy angiodysplastic lesions without bleeding were found in the ascending colon. Biopsies were taken with a cold forceps for histology. The colon (entire examined portion) was moderately tortuous. Advancing the scope required using manual pressure. Biopsies for histology were taken with a cold forceps from the entire colon for evaluation of microscopic colitis. Impression: - Decreased sphincter tone found on digital rectal exam. - Diverticulosis in the sigmoid colon. - Diverticulosis in the entire examined colon. - One 5 mm polyp in the cecum, removed with a cold biopsy forceps. Resected and retrieved. - Multiple non-bleeding colonic angiodysplastic lesions. Biopsied. - Tortuous colon. Biopsied. Recommendation: - Discharge patient to home. - Resume previous diet. - Continue present medications. - Repeat colonoscopy in 5 years for surveillance based on pathology results. - Telephone my office for pathology results in 1 week. Procedure Code(s): --- Professional --- 75110, Colonoscopy, flexible; with biopsy, single or multiple Diagnosis Code(s): --- Professional --- K62.89, Other specified diseases of anus and rectum D12.0, Benign neoplasm of cecum K55.20, Angiodysplasia of colon without hemorrhage K52.9, Noninfective gastroenteritis and colitis, unspecified K57.30, Diverticulosis of large intestine without perforation or abscess without bleeding Q43.8, Other specified congenital malformations of intestine CPT copyright 2017 [employer]. All rights reserved. The codes documented in this report are preliminary and upon home school coordinator review may be revised to meet current compliance requirements. Mikael Dominguez MD 11/23/2020 7:28:53 AM This report has been signed electronically. Number of Addenda: 0 Note Initiated On: 11/23/2020 6:52 AM
== END 2020-11-23 09:04 | disposition home or self-care (01) ==
LOC: EN 05:22 → AC 05:22
PROVIDERS: PCP Family Medicine; Referring Provider Family Medicine; Visit Provider Surgery
PROC: 0DJD8ZZ Inspection of Lower Intestinal Tract, Via Natural or Artificial Opening Endoscopic (ICD-10-PCS; CPT 45378; principal; 2020-11-23 06:25)
DX: K52.9 Noninfective gastroenteritis and colitis, unspecified (principal); Z20.828 Contact with and (suspected) exposure to other viral communicable diseases; E86.0 Dehydration; Z79.899 Other long term (current) drug therapy; G47.30 Sleep apnea, unspecified; I10 Essential (primary) hypertension; M19.90 Unspecified osteoarthritis, unspecified site; Z87.19 Personal history of other diseases of the digestive system; N63.10 Unspecified lump in the right breast, unspecified quadrant; D25.9 Leiomyoma of uterus, unspecified; K57.30 Diverticulosis of large intestine without perforation or abscess without bleeding; K22.2 Esophageal obstruction; K44.9 Diaphragmatic hernia without obstruction or gangrene; K21.00 Gastro-esophageal reflux disease with esophagitis, without bleeding; K29.50 Unspecified chronic gastritis without bleeding; K29.80 Duodenitis without bleeding; Q43.8 Other specified congenital malformations of intestine; K55.20 Angiodysplasia of colon without hemorrhage
CPT/HCPCS: 43239; 45380; 87426; 88305; 88342; C9803; J7120

== ENCOUNTER → 2020-11-25 10:50 | Outpatient (CLI) | payer OTHER, SELFPAY ==
[2020-11-22 07:51] VITALS: BMI 18.9
[2020-11-23 05:43] VITALS: BMI 18.1
--- NOTE | 2020-11-25 10:51 | US_ITS ---
STUDY: ULTRASOUND BREAST - RIGHT REASON FOR EXAM: Female, 70 years old. Right breast nodule TECHNIQUE: Axial and longitudinal images of the RIGHT breast were performed with a high resolution ultrasound transducer. # OF IMAGES: 22 COMPARISON: None. FINDINGS: RIGHT Breast: There is a lesion in the retroareolar area. The lesion measures 5 x 4 x 5 mm in size. Slightly medial and superior to the level of the nipple. Posterior Enhancement: Yes. Posterior Shadowing: Margins: Sharp and jagged. Echogenicity: Hypoechoic. Compression effect on Shape: No change. US/Breast Limited Unilateral IMPRESSION: Suspicious retroareolar mass measures 5 mm. Ultrasound-guided biopsy is recommended. ASSESSMENT CATEGORY: BIRADS Category 4: Suspicious - Biopsy Should Be Considered. A letter regarding these results will be sent to the patient by the facility within 30 days. Electronically Signed: Angela Velazquez MD at 4:59 EST Tel , Service support ,
== END ==
PROVIDERS: PCP Family Medicine; Visit Provider Surgery
DX: N63.10 Unspecified lump in the right breast, unspecified quadrant (principal)
CPT/HCPCS: 76642

== ENCOUNTER 2020-12-16 09:47 | Outpatient (RCR) | payer OTHER, SELFPAY ==
[2020-12-16] MEDS: COVID-19 VACC, MRNA(PFIZER)/PF 30 MCG/0.3 ML SYRINGE IM (17:43)
[2021-01-06] MEDS: COVID-19 VACC, MRNA(PFIZER)/PF 30 MCG/0.3 ML SYRINGE IM (17:29)
== END 2021-03-22 23:59 ==
LOC: IMMUN 09:47
PROVIDERS: PCP Family Medicine; Referring Provider Family Medicine; Visit Provider Family Medicine
DX: Z23 Encounter for immunization (principal)
CPT/HCPCS: 0001A; 0002A; 91300

== ENCOUNTER → 2021-09-09 14:41 | Outpatient (CLI) | payer OTHER, SELFPAY ==
--- NOTE | 2021-09-09 14:47 | CT_ITS ---
INDICATION: SINUSITIS EXAMINATION: CT SINUSES - CT Sinuses W/O Contrast Injection TECHNIQUE: Helically acquired images were obtained of the paranasal sinuses. A radiation dose optimization technique was used for this scan. IV Contrast dosage and agent: COMPARISON: None. FINDINGS: FRONTAL SINUSES AND RECESSES: Mild right mucosal thickening. Left frontal sinus is clear. ETHMOID AIR CELLS: Mild bilateral ethmoid sinus mucosal thickening. MAXILLARY SINUSES: Clear. OSTIOMEATAL COMPLEXES: Clear and normally formed. SPHENOID SINUSES: Near complete opacification of the right sphenoid sinus. Trace left sphenoid sinus mucosal thickening. SPHENOETHMOIDAL RECESSES: Clear. ANCILLARY FINDINGS: NASAL TURBINATES: Unremarkable. NASAL SEPTUM: Midline. ORBITS: Unremarkable. VISUALIZED DENTITION: No periodontal osseous erosion. ANTERIOR CRANIAL FOSSA: Unremarkable. BONES: No destructive osseous lesions. No acute findings. CT/Sinus/Facial Bone IMPRESSION: Sinusitis predominantly involving the right sphenoid sinus and mild involvement of the right frontal, bilateral ethmoid, and left sphenoid sinus. Electronically Signed: Sekou Huff MD at 15:30 EST Tel , Service support ,
== END ==
PROVIDERS: PCP Family Medicine; Visit Provider Otolaryngology
DX: J32.8 Other chronic sinusitis (principal)
CPT/HCPCS: 70486

== ENCOUNTER 2022-01-11 13:05 | Emergency (ER) | payer OTHER, SELFPAY ==
[2022-01-11 13:06] VITALS: BP 181/72; PULSE 82; RESP 16; TEMP 36.4; O2SAT 99; BMI 18.7
--- NOTE | 2022-01-11 13:28 | ED.VIS.GI ---
HPI HPI - GI History of Present Illness Chief Complaint: Weakness Detail of Chief Complaint: Nausea and vomiting. Informant: patient Nausea/Vomiting/Emesis GI Symptom: Positive for Nausea and Vomiting Onset: Today Severity: Mild Diarrhea/Melena/Hematochezia GI Symptom: Negative for Diarrhea and Melena Associated Symptoms Associated Symptoms: Negative for Dysuria, Frequency, Hematuria and Urgency Narrative Narrative: 71-year-old female states she does not does not feel well. States she was feeling fine the last several days. Today around noon she started with nausea vomiting. Denies abdominal pain. Denies any chest pain. Denies any fever or chills. No diarrhea. No dysuria. States she has had normal bowel movements recently. She denies being around anyone else it has been sick. She was driven in to the emergency department by coworkers that she had episode nausea and vomiting on the way in. Prior similar symptoms: No Recent Illness/Hospitalization: No PFSH PFS Medical History (Updated 01/11/22 @ 14:[address] Black Jo MD) Chronic back pain Dehydration Diarrhea Diarrhea Fatigue Gastroenteritis Hemorrhoid History of Clostridium difficile colitis Hypertension Nausea Osteoarthritis Sleep apnea Syncope Weight loss Home Medications lisinopril 20 mg PO DAILY 10/11/15 [History Last Taken 11/23/20] multivitamin 1 ea PO DAILY 10/11/15 [History Last Taken Unknown] hydrochlorothiazide 12.5 mg capsule 12.5 mg PO QDAY 02/14/18 [History Last Taken Unknown] potassium chloride 20 mEq tablet,extended release 8 meq PO BID 02/14/18 [History Last Taken Unknown] gymnema leaf (bulk) 1 gm MC DAILY 11/22/20 [History Last Taken Unknown] ondansetron 4 mg PO Q6H PRN #7 tab 01/11/22 [Rx Last Taken Unknown] Allergy/AdvReac Type Severity Reaction Status Date / Time Sulfa (Sulfonamide Allergy Unknown Verified 01/11/22 13:08 Antibiotics) azithromycin AdvReac Nausea Verified 01/11/22 13:08 [From Zithromax Z-Bruce] Family History Mother Hypertension Father Heart disease Cancer skin cancer Surgical History S/P colonoscopy (~01/2007) S/P tonsillectomy Social History Smoking Status: Never smoker alcohol intake: never substance use type: does not use ROS ROS ED ROS Narrative Nausea and vomiting. Review of Systems ROS Unobtainable: Denies due to encephalopathy Constitutional Constitutional ED: Denies fever(s) or subjective ENT ENT ED: Denies ear pain Cardiovascular Cardiovascular: Denies chest pain or palpitations Respiratory/Chest Respiratory/Chest: Denies cough or dyspnea Gastrointestinal Gastrointestinal: Reports nausea and vomiting; Denies abdominal pain, constipation or diarrhea Genitourinary Genitourinary ED: Denies dysuria Musculoskeletal Musculoskeletal: Denies myalgias Integumentary Denies rash Neurologic Neurologic: Denies headache(s) Psychiatric Psychiatric: Denies depression Endocrine Endocrinology: Denies polyuria Hematologic/Lymphatic Hematologic/Lymphatic: Denies easy bruising Allergic/Immunologic Allergic/Immunologic ED: Denies urticaria EXAM Physical Exam Narrative Exam Narrative: 71-year-old female no acute distress. Vital signs stable afebrile. Initial blood pressure 181/72. She does not look septic or toxic. She is in no distress. H EENT exam unremarkable. Pupils round reactive light. No facial droop. Normal speech. Neck nontender. Lungs clear to auscultation bilaterally. Heart regular rate and rhythm no murmur. Chest wall nontender. Abdomen soft nontender. Nondistended normal bowel sounds no peritoneal signs. Moving all 4 extremities. Equal symmetrical confidential investigator strength. Dorsi plantarflexion intact. Neurologically she is awake and alert. Answering questions and following commands. Const Vital Signs: 01/11/22 13:06 01/11/22 13:31 Temperature 97.6 F L Temperature Source Temporal Pulse Rate 82 Respiratory Rate 16 Respiratory Effort Normal Non-Labored Respiratory Pattern Normal Blood Pressure 181/72 H Blood Pressure Mean 108 Pulse Ox 99 Oxygen Delivery Method Room Air Positive well nourished and well developed; Negative for obese, cachectic, contractures or unkempt General Appearance ED: well developed and NAD; Negative for unkempt, cachectic, contractures or pallor Nutritional Appearance: Negative for cachectic or obese HEENT Reports moist mucous membranes normocephalic and atraumatic; Negative for trauma or tenderness Eyes PERRL and EOMs intact bilaterally General Eye ED: Negative for pale conjunctiva or scleral icterus Neck no lymphadenopathy, supple and no JVD General: Negative for tenderness Resp normal respiratory effort and clear to auscultation bilaterally Auscultation: Negative for rales, rhonchi or wheezes Cardio regular rate, regular rhythm, S1 normal heart sound, S2 normal heart sound and no murmurs GI non-tender, non-distended and no masses Auscultation: normoactive bowel sounds Palpation: soft; Negative for tender, guarding or rigid Back/Spine no CVA tenderness General Back: Negative for CVA tenderness Extremity full ROM General Extremety ED: Negative for edema or tenderness General Extremity: Negative for edema Neuro moves all extremities Sensorium / Orientation: alert, oriented to person, oriented to place and oriented to time; Negative for confused, lethargic or stuporous Motor Exam: strength 5/5 throughout Psych mental status grossly normal and thought process normal Appearance: Negative for unkempt Skin no wounds General Skin Exam: Negative for jaundice or pallor Lesions: no lesions Rashes: no rashes MDM MDM MDM Narrative Medical decision making narrative: 71-year-old female with nausea vomiting. Really no other complaints to states she does not feel well. Exam benign. She will be treated with IV fluids. IV Zofran. Screening labs. EKG was obtained is unremarkable. Repeat exam patient is feeling better after IV Zofran. She is receiving IV fluids. She is awake and alert. She knows day, month and president. Daughter thought initially she seemed confused. Due to the nausea vomiting and confusion confusion I did order a CT of the brain. At this time she did not have any neurological deficits. She is awake and alert. Acting appropriately. Clinically I think this is a viral syndrome. Patient doing well at 3:05 PM. She will be discharged home. Radiologist read her CAT scan is no acute process. Test results were discussed with her and her daughter. Lab Data Attestation: I reviewed the patient's lab results. Lab results narrative: CBC. White blood cell count 8.1. H&H 12 and 37. Platelets normal. Electrolytes show potassium of 2.9. Anion gap is 7. BUN 24 creatinine 0.79. Liver enzymes unremarkable. Alk phos of 124. Glucose 123. Labs: Laboratory Results - last 24 hr 01/11/22 01/11/22 13:25 13:25 WBC 8.1 RBC 4.10 L Hgb 12.6 Hct 37.4 MCV 91.2 MCH 30.7 MCHC 33.7 RDW Std Deviation 44.7 H RDW Coeff of Pat 13.2 Plt Count 248 MPV 10.5 Immature Gran % (Auto) 0.200 Neut % (Auto) 41.3 L Lymph % (Auto) 48.2 H [place] % (Auto) 7.7 Eos % (Auto) 2.1 Baso % (Auto) 0.5 Absolute Neuts (auto) 3.3 Absolute Lymphs (auto) 3.88 Nucleated RBC % 0 Sodium 140 Potassium 2.9 L Chloride 106 Carbon Dioxide 27.0 Anion Gap 7 BUN 24 H Creatinine 0.79 Estim Creat Clear Calc 34.44 Est GFR (MDRD) Af Amer 92 Est GFR (MDRD) Non-Af 76 BUN/Creatinine Ratio 30.5 H Glucose 123 H Calcium 9.6 Total Bilirubin 0.30 AST 27 ALT 37 Alkaline Phosphatase 124 H Total Protein 7.4 Albumin 3.8 Globulin 3.6 Albumin/Globulin Ratio 1.1 Radiography Diagnostic Testing: Clinical Impression(s) from Imaging Studies Brain CT 01/11/22 13:55 IMPRESSION: Chronic involutional changes of the brain. Electronically Signed: Chris Mejia MD at 14:48 EDT , Rhythm Strip Rhythm Strip: Sinus Rhythm Rate: 70 Ectopy: None EKG Initial EKG: Attestation: I personally reviewed and interpreted this EKG as follows: Interpretation: Sinus Rhythm and No Acute Injury Pattern Comments: Normal sinus rhythm rate is 70 no acute signs of SD nor ischemia. Discharge Plan Triage Chief Complaint: Weakness ED Provider: Black Jo Dx/Rx/DC Orders Clinical Impression: Viral syndrome, Nausea & vomiting Instructions: ED Viral Syndrome (Adult), ED Vomiting (Adult) Prescriptions: New ondansetron 4 mg tablet,disintegrating 4 mg PO Q6H PRN (Reason: nausea and vomiting) Qty: 7 RF: 0 No Action potassium chloride 20 mEq tablet extended release 8 meq PO BID RF: 0 hydrochlorothiazide 12.5 mg capsule 12.5 mg PO QDAY RF: 0 multivitamin 1 EACH tablet 1 ea PO DAILY RF: 0 lisinopril 10 MG tablet 20 mg PO DAILY RF: 0 gymnema leaf (bulk) 1 GM powder 1 gm MC DAILY RF: 0 Primary Care Provider: Fabian Graham Referrals: Fabian Graham MD [Primary Care Provider] - 3-5 Days Activity Restrictions/Additional Instructions: Plenty of fluids and rest. Zofran as needed for nausea. Follow-up with your doctor return emergency department if you are feeling worse. Disposition Disposition: Home, Self Care
[2022-01-11 13:35] LABS: Absolute Lymphocyte Count 3.88 X10^3/uL (0.83-4.51); Absolute Neutrophil Count 3.3 X10^3/uL (2.0-7.7); Basophil# 0.04 X10^3/uL; Basophil% 0.5 % (0-1); Eosinophil# 0.17 X10^3/uL; Eosinophils% 2.1 % (0-5); Hematocrit 37.4 % (37-47); Hemoglobin 12.6 g/dL (12.0-15.0); Lymphocyte # 3.88 X10^3/ul (0.83-4.51); Lymphocyte % 48.2 % (19-41); Mean Corp Hgb Conc 33.7 g/dL (32-36); Mean Corpuscular Hgb 30.7 pg (27.0-32.0); Mean Corpuscular Volume 91.2 fL (81-99); Mean Platelet Vol. 10.5 fl (6.2-12.0); Monocyte# 0.62 X10^3/uL; Monocyte% 7.7 % (0-10); NRBC Flagged by Analyzer 0 % (0-5); Neutrophil # 3.32 X10^3/uL (2.7-7.7); Neutrophil % 41.3 % (47-70); Platelet Count 248 K/mm3 (150-450); RBC Distribution Width CV 13.2 % (11.6-14.6); RBC Distribution Width SD 44.7 fl (35.1-43.9); White Blood Count 8.1 K/mm3 (4.4-11.0)
--- NOTE | 2022-01-11 13:47 | EKG12_ITS ---
Test Reason : DIZZINESS Blood Pressure : / mmHG Vent. Rate : 070 BPM Atrial Rate : 070 BPM P-R Int : 172 ms QRS Dur : 086 ms QT Int : 404 ms P-R-T Axes : 080 071 078 degrees QTc Int : 436 ms Normal sinus rhythm Normal ECG Confirmed by MARITO VALERIO, BERENICE ([id number]), film editor YONAS CRUZ ([id number]) on 01/13/2022 2:13:27 PM Referred By: LISA Confirmed By:CHARLINE DEVI MD
[2022-01-11] MEDS: Ondansetron 4 MG/2 ML Vial IV (13:48)
[2022-01-11] MEDS: 0.9% Normal Saline 1,000 ML 1000 ML IV (13:49)
[2022-01-11 13:51] LABS: ALB/GLOB Ratio 1.1 RATIO (0.9-2.4); AST(SGOT) 27 U/L (15-37); Alanine Aminotransfer ALT/SGPT 37 U/L (13-56); Albumin, Serum 3.8 g/dL (3.2-5.0); Alkaline Phosphatase 124 U/L (45-117); Anion Gap 7 (5-15); BUN 24 mg/dL (7-18); BUN/Creat Ratio 30.5 RATIO (10-20); Calcium,Total 9.6 mg/dL (8.5-10.1); Chloride 106 mmol/L (98-107); Creatinine, Serum 0.79 mg/dL (0.55-1.02); EST Glomerular Filtration Rate 76 mL/min (>60); Est Glom Filt Rate - Afr Amer 92 mL/min (>60); Estimated Creatinine Clearance 34.44 ml/min; Globulin 3.6 g/dL (2.2-4.2); Glucose 123 mg/dL (74-106); Potassium 2.9 mmol/L (3.5-5.1); Protein, Total 7.4 g/dL (6.4-8.2); Sodium Level 140 mmol/L (136-145)
--- NOTE | 2022-01-11 13:55 | CT_ITS ---
STUDY: CT BRAIN WITHOUT CONTRAST REASON FOR EXAM: Female, 71 years old. Confusion RADIATION DOSAGE (If Supplied By Facility): CTDIvol = ( 44.99 ) mGy, DLP = ( 779.24 ) mGycm TECHNIQUE: Transaxial CT imaging of the brain was performed without administration of intravenous contrast material. Individualized dose optimization techniques were used for this CT. COMPARISON: Comparison is made with prior examination dated 09/09/2021. FINDINGS: Normal soft tissue structures. Normal calvarium. There is mild cerebral atrophy with widening of the extra-axial spaces and ventricular dilatation. There are areas of decreased attenuation within the white matter tracts of the supratentorial brain, consistent with microvascular disease changes. Normal basal ganglia and thalami. Normal brainstem. Normal cerebellum. There is no intracranial hemorrhage. There are no findings of an acute ischemic infarction. Normal visualized paranasal sinuses. CT/Brain/Head without Contrast IMPRESSION: Chronic involutional changes of the brain. Electronically Signed: Chris Mejia MD at 14:48 EDT ,
[2022-01-11 15:29] VITALS: BP 133/60; PULSE 73; RESP 17; O2SAT 98
== END 2022-01-11 15:31 | disposition home or self-care (01) ==
PROVIDERS: Emergency Provider Emergency Medicine; PCP Family Medicine; Visit Provider Emergency Medicine
DX: B34.9 Viral infection, unspecified (principal); R11.2 Nausea with vomiting, unspecified; I10 Essential (primary) hypertension; G47.30 Sleep apnea, unspecified; Z79.899 Other long term (current) drug therapy
CPT/HCPCS: 70450; 80053; 85025; 93005; 96361; 96374; 99283; J7030; A4216; J2405

== ENCOUNTER → 2023-03-15 | Outpatient (CLI) | payer OTHER, SELFPAY ==
[2023-03-15 15:54] LABS: Creatinine, Serum 0.72 mg/dL (0.55-1.02); EST Glomerular Filtration Rate 85 mL/min (>60); Est Glom Filt Rate - Afr Amer 103 mL/min (>60)
== END | disposition home or self-care (01) ==
LOC: LAB 14:03
PROVIDERS: PCP Family Medicine; Visit Provider Surgery Trauma Surgery
DX: I77.3 Arterial fibromuscular dysplasia (principal)
CPT/HCPCS: 36415; 82565

== ENCOUNTER → 2023-03-26 | Outpatient (CLI) | payer OTHER, SELFPAY ==
--- NOTE | 2023-03-26 16:35 | CT_ITS ---
STUDY: CTA HEAD AND NECK WITH CONTRAST REASON FOR EXAM: Female, 72 years old. 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 dysplasia RADIATION DOSAGE (If Supplied By Facility): CTDIvol = ( 22.32 ) mGy, DLP = ( 1229.82 ) mGycm TECHNIQUE: CT angiography was performed with a multi-detector CT scanner. Data acquisition was obtained from the skull base through the vertex following intravenous administration of IV 100mL Isovue-370. MIP images were reconstructed from the axial data set. Post-processing of the angiographic images was performed, with multiplanar reformation and 3D reconstruction. Individualized dose optimization techniques were used for this CT. COMPARISON: No relevant priors. FINDINGS: Normal bilateral petrous carotid arteries. There is calcified plaque formation of the right cavernous carotid artery, without a cross-sectional luminal stenosis. There is calcified plaque formation of the left cavernous carotid artery, without a cross-sectional luminal stenosis. Normal right A1 segments of the anterior cerebral artery. Normal left A1 segments of the anterior cerebral artery. Normal intact anterior communicating artery (ACOM). Normal bilateral A2 segments of the anterior cerebral arteries. Normal right M1 and M2 segments of the middle cerebral arteries, with a normal M1 bifurcation. Normal left M1 and M2 segments of the middle cerebral arteries, with a normal M1 bifurcation. Normal right posterior communicating artery (PCOM). Normal left posterior communicating artery (PCOM). Normal bilateral vertebral arteries. Normal basilar artery with a normal basilar bifurcation. The visualized bilateral superior cerebellar (SCA) arteries are normal. Normal bilateral P1, P2 and visualized P3 segments of the posterior cerebral arteries. There is no demonstrated aneurysm of the [place]. Mild degree of cerebral atrophy. Punctate calcifications in the basal ganglia bilaterally. Tiny hypodensity seen in the right lobe of the thyroid. AORTIC ARCH: There is atherosclerotic calcific plaque formation of the aortic arch and great vessels arising from the aortic arch, without a hemodynamically significant stenosis. There is a normal origin of the brachiocephalic, left common carotid, and left subclavian arteries. Atherosclerotic plaque formation at the origin of the left subclavian artery. RIGHT CAROTID ARTERIES: Normal right common carotid artery (CCA). Normal right common carotid bulb. There is mild atherosclerotic plaque formation of the origin of the right internal carotid artery with less than 50% cross sectional diameter stenosis. Normal visualized cervical portion of the right internal carotid artery. There is mild atherosclerotic plaque formation of the origin of the right external carotid artery with less than 50% cross sectional diameter stenosis. LEFT CAROTID ARTERIES: Normal left common carotid artery (CCA). Normal left common carotid bulb. Normal origin of the left internal carotid (ICA) artery without a hemodynamically significant stenosis. Normal visualized cervical portion of the left internal carotid artery. There is mild atherosclerotic plaque formation of the origin of the left external carotid artery with less than 50% cross sectional diameter stenosis. VERTEBRAL ARTERIES: Normal bilateral vertebral arteries. CT/CTA Head AND Neck W/ Contrast IMPRESSION: Mild plaque formation at the origin of the right internal carotid artery causing less than 50% stenosis. Calcific plaque at the origin of both right and left external carotid arteries causing less than 50% narrowing. Electronically Signed: Chris Mejia MD at 8:24 EDT ,
== END | disposition home or self-care (01) ==
LOC: CT 16:29
PROVIDERS: PCP Family Medicine; Referring Provider Surgery Trauma Surgery; Visit Provider Surgery Trauma Surgery
DX: Q89.9 Congenital malformation, unspecified (principal)
CPT/HCPCS: 70496; 70498; Q9967

== ENCOUNTER 2023-04-19 06:29 | Emergency (ER) | payer OTHER, SELFPAY ==
[2023-04-19 06:31] VITALS: BP 143/60; PULSE 86; RESP 18; TEMP 37.1; O2SAT 97; BMI 19.8
--- NOTE | 2023-04-19 07:11 | CT_ITS ---
STUDY: CT ABDOMEN AND PELVIS WITH CONTRAST REASON FOR EXAM: Female, 72 years old. LLQ pain, diarrhea RADIATION DOSAGE (If Supplied By Facility): CTDIvol = ( 8.71 ) mGy, DLP = ( 238.82 ) mGycm TECHNIQUE: Transaxial images were obtained from the dome of the diaphragm to the symphysis pubis without oral contrast. IV 100mL Isovue-300 was administered. Sagittal and coronal images were reconstructed. Individualized dose optimization techniques were used for this CT. COMPARISON: Comparison is made with prior study dated November 19, 2020. FINDINGS: Minimal linear atelectasis at the left lung base. Tiny subcentimeter cyst in the posterior aspect of the right lobe of the liver as seen on axial image #16. The visualized portions of the heart are within normal limits. Normal liver. Normal gallbladder and extrahepatic biliary system. Normal spleen. Normal pancreas. Normal bilateral adrenal glands. 7 mm cyst in the lateral aspect of the right kidney. Normal left kidney. Normal visualized stomach. Normal small intestine. There is diverticulosis, with thickening of the colon wall, and pericolonic inflammation changes consistent with acute diverticulitis. Small amount of free fluid in the cul-de-sac. The appendix is visualized and appears normal. There is diffuse atherosclerotic calcification of the abdominal aorta and its major visceral branches, without a demonstrated aneurysm. Normal inferior vena cava. Normal retroperitoneum. Normal urinary bladder. Fibroid uterus. Normal abdominal wall. There are degenerative changes of the visualized lumbar spine. Mild dextroscoliosis of the lumbar spine. CT/Abdomen/Pelvis W IV Cont ONLY IMPRESSION: Edematous changes seen in the sigmoid colon. Sigmoid diverticulosis and mild degree of diverticulitis. Small amount of fluid is seen in the cul-de-sac. Fibroid uterus. Electronically Signed: Chris Mejia MD at 9:25 EDT ,
--- NOTE | 2023-04-19 07:12 | EX.ED.DYSGE1 ---
HPI History of Present Illness Chief Complaint: Abd Pain Informant: patient Narrative Narrative: Patient presents with a nominal pain. Patient states she felt fine until shortly after lunch yesterday. She just had noodles peas and carrots which she has commonly. She also had a chocolate chip cookie made by somebody at home. She states sometimes she does not tolerate gluten and chocolate but sometimes she will. After eating the cookie she has had abdominal discomfort. She describes a diffuse area but all below the umbilicus. She denies nausea but states that she has not thrown up but feels sort of ill like she could. I think this likely is some mild nausea. She has also had diarrhea. It is mucousy white and has had a few spots of blood in it. She is not on any blood thinners. She denies any history of colitis but has had C. difficile colitis after antibiotics. But she has not had antibiotics recently. Vancomycin took care of that for her. She denies any abdominal surgeries. She has had colonoscopies. She knows that it showed she had C. difficile colitis but does not recall if it showed diverticulitis. No urinary symptoms. No back pain. She was also concerned because her blood pressure is normally about 150 and it was about 115-119 by EMS. She is also concerned that maybe the heat yesterday because of this. When she got into her car she started let the air conditioning run before she got in it but she heard on the news that the heat can cause problems with your digestive system. She was also concerned that she had some redness of her feet yesterday in the heat even though it is gone. They were not swollen. [facility] Medical History (Updated 04/19/23 @ 10:[address] Keenan Bowser MD) Aortic insufficiency Chronic back pain Dehydration Diarrhea Elevated plasma metanephrines Essential hypertension Fatigue LALO (generalized anxiety disorder) Gastroenteritis Hemorrhoid History of Clostridium difficile colitis Insomnia Nausea Osteoarthritis Osteoporosis Sleep apnea Syncope Weight loss Home Medications multivitamin 1 ea PO DAILY 10/11/15 [History Last Taken Unknown] hydrochlorothiazide 12.5 mg capsule 12.5 mg PO QDAY 02/14/18 [History Last Taken Unknown] potassium chloride 20 mEq tablet,extended release 8 meq PO BID 02/14/18 [History Last Taken Unknown] gymnema leaf (bulk) 100 % powder 1 g miscellaneous DAILY 11/22/20 [History Last Taken Unknown] calcium carbonate 600 mg calcium (1,500 mg) tablet 600 mg PO BID 03/15/23 [History Last Taken Unknown] acyclovir 800 mg tablet 800 mg PO DAILY FEVER BLISTER 04/18/23 [History Last Taken Unknown] alendronate 70 mg tablet 70 mg PO QWEEK 04/18/23 [History Last Taken Unknown] glucosamine 750 ql-ddzaqwozbc-otk no.1 625 mg-C 30 at-fqbh-fygd tablet 1 tab PO BID 04/18/23 [History Last Taken Unknown] lisinopril 40 mg tablet 40 mg PO DAILY 04/18/23 [History Last Taken Unknown] amoxicillin 875 mg-potassium clavulanate 125 mg tablet 875 mg (0.875 x 875-125 mg) PO Q12H #20 TABLETS 04/19/23 [Rx Last Taken Unknown] hydrocodone-acetaminophen 5-325mg 5mg-325mg 1 tab PO Q6H PRN PRN Pain 3 days #10 TABLETS 04/19/23 [Rx Last Taken Unknown] ondansetron 4 mg disintegrating tablet 4 mg PO Q8H PRN PRN Nausea #10 tabs 04/19/23 [Rx Last Taken Unknown] Allergy/AdvReac Type Severity Reaction Status Date / Time Sulfa (Sulfonamide Allergy Intermediate Hives Verified 04/19/23 06:34 Antibiotics) azithromycin AdvReac Nausea Verified 04/19/23 06:34 [From Zithromax Z-Bruce] Family History (Updated 04/19/23 @ 09:18 by Susan Orosco) Mother Hypertension Father Heart disease Cancer skin cancer Grandmother Heart disease CVA (cerebral vascular accident) Surgical History (Updated 04/19/23 @ 09:23 by Susan Orosco) History of colonoscopy History of tonsillectomy Social History Smoking Status: Never smoker alcohol intake: never substance use type: does not use ROS ROS ED ROS Narrative A complete review of systems was performed and is negative except as documented in the history of present illness. Some specific details below. Constitutional: No recent fevers but she might have had chills. EYE: No visual complaints or pain. ENT: No difficulty swallowing. No swelling. No pain. CV: No chest pain or palpitations. Respiratory: No dyspnea. No hemoptysis. No difficulty taking breaths. GI: Please see history of present illness. : No frequency dysuria or hematuria. Musculoskeletal: No recent trauma. No pains. Skin: No rash. Nondiaphoretic. Neuro: No weakness or numbness. Endocrine: No polyuria or polydipsia. EXAM Physical Exam Narrative Exam Narrative: CONSTITUTIONAL: Patient is nontoxic in appearance. The patient looks comfortable. HEENT: No notable trauma. Mucous membranes minimally dry. No sinus tenderness. No indication of pain with swallowing. EYES: No conjunctival injection. No proptosis. CARDIOVASCULAR: Regular rate. Regular rhythm. No notable murmur. No JVD. RESPIRATORY: No respiratory distress. Breathing is unlabored. No wheezes. No rhonchi. No rales. No pain with a deep breath. GASTROINTESTINAL: Not distended. Bowel sounds are normal. She does have some mild tenderness near the left lower quadrant even though she describes the pain as both sides she is only tender toward the left. There is no guarding rebound or mass noted. GENITOURINARY: No tenderness over the bladder. No CVA tenderness. MUSCULOSKELETAL: Atraumatic. No peripheral edema. No cord. No tenderness along the deep venous system. No asymmetry. NEUROLOGICAL: Patient is alert and appropriate. No focal deficit noted. SKIN: No noted rashes. No diaphoresis. PSYCHIATRIC: Patient is calm. Mood is appropriate. Const Vital Signs: 04/19/23 06:31 Temperature 98.7 F Temperature Source Temporal Pulse Rate 86 Respiratory Rate 18 Blood Pressure 143/60 H Blood Pressure Mean 87 Pulse Ox 97 Oxygen Delivery Method Room Air MDM MDM MDM Narrative Medical decision making narrative: My independent interpretation the patient's CT scan does show signs of sigmoid region diverticulitis. Final reading is pending. Patient's CBC shows elevated white count at 14.9. Normal hemoglobin and platelets. Patient's electrolytes show no marked abnormalities. She does have mild elevation of the glucose at 150 that can be followed. Patient's liver function test showed no acute process. Final CT reading does show findings consistent with diverticulitis. I had a long discussion again with the patient. I explained that there are newer studies stating that you can treat diverticulitis that is mild with just clear liquid diet slow advancing. We normally use antibiotics here. Patient would like to start antibiotics. I explained this does have a higher risk of C. difficile colitis but its not an unreasonable plan. She should still follow the clear liquid diet for at least a couple days. I will write for some pain meds. I will write for nausea medication. She states she has a very sensitive person and is very sensitive to all meds. I explained that she can use pain meds and nausea meds only on a as needed basis. We discussed reasons to return. I also explained she should follow-up with her physician to make sure she is improving. Lab Data Attestation: I reviewed the patient's lab results. Labs: Laboratory Results - last 24 hr 04/19/23 04/19/23 06:45 08:30 WBC 14.9 H RBC 4.14 L Hgb 12.6 Hct 38.0 MCV 91.8 MCH 30.4 MCHC 33.2 RDW Std Deviation 45.5 H RDW Coeff of Pat 13.4 Plt Count 242 MPV 10.9 Immature Gran % (Auto) 0.500 Neut % (Auto) 77.3 H Lymph % (Auto) 12.8 L Mcmullen % (Auto) 9.1 Eos % (Auto) 0.1 Baso % (Auto) 0.2 Absolute Neuts (auto) 11.5 H Absolute Lymphs (auto) 1.90 Nucleated RBC % 0 Sodium 136 Potassium 3.9 Chloride 104 Carbon Dioxide 24.0 Anion Gap 8 BUN 19 H Creatinine 0.96 Estim Creat Clear Calc 36.93 Est GFR (MDRD) Af Amer 73 Est GFR (MDRD) Non-Af 60 BUN/Creatinine Ratio 19.8 Glucose 150 H Calcium 8.9 Total Bilirubin 0.70 AST 18 ALT 16 Alkaline Phosphatase 87 Total Protein 7.2 Albumin 3.3 Globulin 3.9 Albumin/Globulin Ratio 0.8 L Urine Color Yellow Urine Clarity Sl. Cloudy Urine pH 7.0 Ur Specific [place] 1.010 Urine Protein 15 H Urine Glucose (UA) Normal Urine Ketones Negative Urine Occult Blood 10 H Urine Nitrite Negative Urine Bilirubin Negative Urine Urobilinogen Normal Ur Leukocyte Esterase 25 H Urine RBC 0 SEEN Urine WBC 0-5 SEEN Ur Squamous Epith Cells 0 SEEN Urine Bacteria 0 SEEN Hyaline Casts 0-5 SEEN Urine Mucus 0 SEEN Radiography Diagnostic Testing: Clinical Impression(s) from Imaging Studies Abdomen/Pelvis CT 04/19/23 07:11 IMPRESSION: Edematous changes seen in the sigmoid colon. Sigmoid diverticulosis and mild degree of diverticulitis. Small amount of fluid is seen in the cul-de-sac. Fibroid uterus. Electronically Signed: Chris Mejia MD at 9:25 EDT , Discharge Plan Triage Chief Complaint: Abd Pain ED Provider: Keenan Bowser Dx/Rx/DC Orders Clinical Impression: Diverticulitis, Hyperglycemia, Leukocytosis Instructions: ED Diverticulitis Prescriptions: New hydrocodone-acetaminophen [hydrocodone-acetaminophen] 5-325 mg tablet 1 tab PO Q6H PRN PRN (Reason: Pain) 3 Days Qty: 10 0RF ondansetron [ondansetron] 4 mg tablet,disintegrating 4 mg PO Q8H PRN PRN (Reason: Nausea) Qty: 10 0RF amoxicillin-pot clavulanate [amoxicillin-pot clavulanate] 875-125 mg tablet 875 mg PO Q12H Qty: 20 0RF No Action potassium chloride 20 mEq tablet extended release 8 meq PO BID hydrochlorothiazide 12.5 mg capsule 12.5 mg PO QDAY calcium carbonate 600 mg calcium (1,500 mg) tablet 600 mg PO BID alendronate 70 mg tablet 70 mg PO QWEEK acyclovir 800 mg tablet 800 mg PO DAILY lisinopril 40 mg tablet 40 mg PO DAILY vaahdaxy-sxge-qjz4-C-joan-bosw 750-625-30 mg tablet 1 tab PO BID Rx Instructions: give after food/meal multivitamin 1 EACH tablet 1 ea PO DAILY Patient Comments: supplement gymnema leaf (bulk) 1 GM powder 1 g MC DAILY Primary Care Provider: Fabian Graham Referrals: Fabian Graham MD [Primary Care Provider] - 3-5 Days Disposition Disposition: Home, Self Care
[2023-04-19] MEDS: 0.9% Normal Saline 1,000 ML 1000 ML IV (07:27)
[2023-04-19] MEDS: Ondansetron 4 MG/2 ML Vial IV (07:27)
[2023-04-19 07:41] LABS: Absolute Neutrophil Count 11.5 X10^3/uL (2.0-7.7); Basophil# 0.03 X10^3/uL; Basophil% 0.2 % (0-1); Eosinophil# 0.02 X10^3/uL; Eosinophils% 0.1 % (0-5); Hemoglobin 12.6 g/dL (12.0-15.0); Lymphocyte % 12.8 % (19-41); Mean Corp Hgb Conc 33.2 g/dL (32-36); Mean Corpuscular Hgb 30.4 pg (27.0-32.0); Mean Corpuscular Volume 91.8 fL (81-99); Mean Platelet Vol. 10.9 fl (6.2-12.0); Monocyte# 1.36 X10^3/uL; Monocyte% 9.1 % (0-10); NRBC Flagged by Analyzer 0 % (0-5); Neutrophil % 77.3 % (47-70); Platelet Count 242 K/mm3 (150-450); RBC Distribution Width CV 13.4 % (11.6-14.6); RBC Distribution Width SD 45.5 fl (35.1-43.9); Red Blood Count 4.14 M/mm3 (4.2-5.4); White Blood Count 14.9 K/mm3 (4.4-11.0)
[2023-04-19 07:57] LABS: ALB/GLOB Ratio 0.8 RATIO (0.9-2.4); AST(SGOT) 18 U/L (15-37); Alanine Aminotransfer ALT/SGPT 16 U/L (13-56); Albumin, Serum 3.3 g/dL (3.2-5.0); Alkaline Phosphatase 87 U/L (45-117); Anion Gap 8 (5-15); BUN 19 mg/dL (7-18); BUN/Creat Ratio 19.8 RATIO (10-20); Calcium,Total 8.9 mg/dL (8.5-10.1); Chloride 104 mmol/L (98-107); Creatinine, Serum 0.96 mg/dL (0.55-1.02); EST Glomerular Filtration Rate 60 mL/min (>60); Est Glom Filt Rate - Afr Amer 73 mL/min (>60); Estimated Creatinine Clearance 36.93 ml/min; Globulin 3.9 g/dL (2.2-4.2); Glucose 150 mg/dL (74-106); Potassium 3.9 mmol/L (3.5-5.1); Protein, Total 7.2 g/dL (6.4-8.2); Sodium Level 136 mmol/L (136-145)
[2023-04-19 08:30] VITALS: RESP 18
[2023-04-19 08:32] LABS: Bacteria 0 SEEN /hpf (None Seen); Mucous, Urine 0 SEEN /hpf (<or=2+); Red Blood Cells-Urine 0 SEEN /hpf (0-5); Squamous Epithelial Cells - UA 0 SEEN /hpf (5-10)
[2023-04-19 08:50] LABS: Color, Urine Yellow (Yellow); Glucose, Dipstick Normal (Normal); Ketone-Dipstick Negative (Negative); Leukocyte Esterase-Dipstick 25 /ul (Negative); Nitrite-Dipstick Negative (Negative); Occult Blood-Urine 10 /ul (Negative); Protein-Dipstick 15 mg/dl (Negative); Urine Bilirubin Dipstick Negative (Negative); Urine Clarity Sl. Cloudy (Clear); Urine Urobilinogen Normal (Normal)
[2023-04-19 09:08] LABS: Hyaline Cast 0-5 SEEN /lpf (0-5); White Blood Cells 0-5 SEEN /hpf (0-5)
== END 2023-04-19 10:21 | disposition home or self-care (01) ==
PROVIDERS: Emergency Provider Emergency Medicine; PCP Family Medicine; Visit Provider Emergency Medicine
DX: K57.32 Diverticulitis of large intestine without perforation or abscess without bleeding (principal); R73.9 Hyperglycemia, unspecified; D72.829 Elevated white blood cell count, unspecified; I10 Essential (primary) hypertension; M54.9 Dorsalgia, unspecified; G47.30 Sleep apnea, unspecified; G89.29 Other chronic pain; Z79.899 Other long term (current) drug therapy
CPT/HCPCS: 74177; 80053; 81001; 85025; 96361; 96374; 99284; J7030; Q9967; A4216; J2405

== ENCOUNTER 2023-04-27 05:43 | Inpatient (IN) | payer OTHER, MEDICARE, SELFPAY ==
[2023-04-27] VITALS (8 sets, daily range): BP systolic 105–146; BP diastolic 46–61; PULSE 79–95; RESP 14–20; TEMP 36.1–37.7; O2SAT 98–100; BMI 19.3
--- NOTE | 2023-04-27 05:54 | EKG12_ITS ---
Test Reason : DIZZINESS Blood Pressure : / mmHG Vent. Rate : 082 BPM Atrial Rate : 082 BPM P-R Int : 176 ms QRS Dur : 086 ms QT Int : 360 ms P-R-T Axes : 080 070 067 degrees QTc Int : 420 ms Normal sinus rhythm Normal ECG Confirmed by YOHAN VALERIO, BRYANNA ([id number]), editor managing newspaper YONAS CRUZ ([id number]) on 05/07/2023 12:16:19 PM Referred By: Confirmed By:BRYANNA ALMANZAR MD
--- NOTE | 2023-04-27 05:54 | CT_ITS ---
STUDY: CT ABDOMEN AND PELVIS WITH CONTRAST REASON FOR EXAM: Female, 72 years old. nausea, diarrhea, hypertension RADIATION DOSAGE (If Supplied By Facility): CTDIvol = ( 9.96 ) mGy, DLP = ( 306.56 ) mGycm TECHNIQUE: Transaxial images were obtained from the dome of the diaphragm to the symphysis pubis without oral contrast. ml of 75mL Isovue-370 contrast was administered. Sagittal and coronal images were reconstructed. Individualized dose optimization techniques were used for this CT. COMPARISON: CT of abdomen and pelvis dated April 19, 2023 FINDINGS: The visualized lung bases are unremarkable. The visualized portions of the heart are within normal limits. Stable small cysts near the falciform ligament of the liver. The liver is otherwise normal. A small amount of perihepatic ascites is also present. Normal gallbladder and extrahepatic biliary system. Normal spleen. Normal pancreas. Normal bilateral adrenal glands. Normal right kidney. Normal left kidney. Normal visualized stomach. Normal small intestine. There is mild thickening of the wall of the sigmoid colon. A few diverticula of the sigmoid colon are redemonstrated and are not inflamed. Unremarkable remaining aspects of the colon. Not The appendix is visualized and appears normal. There is diffuse atherosclerotic calcification of the abdominal aorta, without a demonstrated aneurysm. Normal inferior vena cava. Normal retroperitoneum. Normal urinary bladder. Small right side fibroid redemonstrated. Small amount of ascites or trace fluid noted in the pelvic cul-de-sac. Normal abdominal wall. There are diffuse degenerative changes of the visualized lumbar spine. CT/Abdomen/Pelvis W IV Cont ONLY IMPRESSION: Mild colitis 1. There is mild thickening of the wall of the sigmoid colon. A few diverticula of the sigmoid colon are redemonstrated and are not inflamed. Unremarkable remaining aspects of the colon. Not The appendix is visualized and appears normal. 2. Small amount of abdominal and pelvic ascites. Electronically Signed: Reilly Klein MD at 8:19 EDT Reading Location ID and State: [id number] / [facility] , Service support ,
--- NOTE | 2023-04-27 05:55 | EX.ED.DYSGE1 ---
HPI <Dr. Kaye Gardner MD - Last Filed: 04/27/23 07:02> History of Present Illness Chief Complaint: Hypotension Informant: patient Narrative Narrative: Patient presents via EMS secondary to dizziness and near syncope. Patient was seen in the ER last week with abdominal pain. She was diagnosed with diverticulitis and started on Augmentin. Shared decision making was made as the patient does have a history of C. difficile. Patient states that she has been trying to follow a clear liquid diet with everything he is running through her and she is having large amounts of diarrhea. She denies fever or chills. She has mild pain to the right lower quadrant. She denies having fever or chills. She states she is still urinating. Tonight she felt very lightheaded and as if her vision was going black and that prompted her to call EMS. EMS notes on arrival her initial blood pressure was 60/40. [facility] <Dr. Kaye Gardner MD - Last Filed: 04/27/23 07:02> [facility] Medical History Aortic insufficiency Chronic back pain Dehydration Diarrhea Elevated plasma metanephrines Essential hypertension Fatigue LALO (generalized anxiety disorder) Gastroenteritis Hemorrhoid History of Clostridium difficile colitis Insomnia Nausea Osteoarthritis Osteoporosis Sleep apnea Syncope Weight loss Home Medications multivitamin 1 ea PO DAILY 10/11/15 [History Last Taken Unknown] hydrochlorothiazide 12.5 mg capsule 12.5 mg PO QDAY 02/14/18 [History Last Taken Unknown] potassium chloride 20 mEq tablet,extended release 8 meq PO BID 02/14/18 [History Last Taken Unknown] gymnema leaf (bulk) 100 % powder 1 g miscellaneous DAILY 11/22/20 [History Last Taken Unknown] calcium carbonate 600 mg calcium (1,500 mg) tablet 600 mg PO BID 03/15/23 [History Last Taken Unknown] acyclovir 800 mg tablet 800 mg PO DAILY FEVER BLISTER 04/18/23 [History Last Taken Unknown] alendronate 70 mg tablet 70 mg PO QWEEK 04/18/23 [History Last Taken Unknown] glucosamine 750 yg-hgoildsuya-aen no.1 625 mg-C 30 kl-sfei-vvic tablet 1 tab PO BID 04/18/23 [History Last Taken Unknown] lisinopril 40 mg tablet 40 mg PO DAILY 04/18/23 [History Last Taken Unknown] amoxicillin 875 mg-potassium clavulanate 125 mg tablet 875 mg (0.875 x 875-125 mg) PO Q12H #20 TABLETS 04/19/23 [Rx Last Taken Unknown] hydrocodone-acetaminophen 5-325mg 5mg-325mg 1 tab PO Q6H PRN PRN Pain 3 days #10 TABLETS 04/19/23 [Rx Last Taken Unknown] ondansetron 4 mg disintegrating tablet 4 mg PO Q8H PRN PRN Nausea #10 tabs 04/19/23 [Rx Last Taken Unknown] Allergy/AdvReac Type Severity Reaction Status Date / Time Sulfa (Sulfonamide Allergy Intermediate Hives Verified 04/27/23 05:52 Antibiotics) azithromycin AdvReac Nausea Verified 04/27/23 05:52 [From Zithromax Z-Bruce] Family History Mother Hypertension Father Heart disease Cancer skin cancer Grandmother Heart disease CVA (cerebral vascular accident) Surgical History History of colonoscopy History of tonsillectomy Social History Smoking Status: Never smoker alcohol intake: never substance use type: does not use ROS <Dr. Kaye Gardner MD - Last Filed: 04/27/23 07:02> ROS ED Constitutional Constitutional ED: Denies chills or fever(s) Eyes Eyes: Denies change in vision or discharge from eye(s) ENT ENT ED: Denies discharge from eye(s), rhinorrhea or sore throat Cardiovascular Cardiovascular: Denies chest pain or palpitations Respiratory/Chest Respiratory/Chest: Denies cough or dyspnea Gastrointestinal Gastrointestinal: Reports abdominal pain and diarrhea; Denies vomiting Genitourinary Genitourinary ED: Denies dysuria Musculoskeletal Musculoskeletal: Denies back pain or extremity pain Integumentary Denies Abrasions or rash Neurologic Neurologic: Reports weakness; Denies headache(s) Psychiatric Psychiatric: Denies anxiety or depression Allergic/Immunologic Allergic/Immunologic ED: Denies lip swelling or urticaria EXAM <Dr. Kaye Gardner MD - Last Filed: 04/27/23 07:02> Physical Exam Const Vital Signs: 04/27/23 05:45 04/27/23 05:49 04/27/23 06:23 Temperature 97.0 F L Temperature Source Temporal Pulse Rate 79 85 Respiratory Rate 20 H 16 Respiratory Effort Normal Respiratory Pattern Normal Blood Pressure 105/46 L 115/46 L Blood Pressure Mean 65 69 Pulse Ox 98 98 Oxygen Delivery Method Room Air Room Air Positive well nourished and well developed General Appearance ED: well developed HEENT Reports dry mucous membranes Mouth ED: Yes dry mucous membranes Mouth: dry mucous membranes Eyes EOMs intact bilaterally Neck no lymphadenopathy Chest Wall inspection of chest normal and palpation of chest normal Resp normal respiratory effort and clear to auscultation bilaterally Cardio regular rate and regular rhythm GI GI Narrative: Mild lower abdominal tenderness palpation. No guarding or rebound. Hypoactive bowel sounds are present. Extremity normal to inspection Neuro oriented x3 Neuro Narrative: No focal neurologic deficits. Psych mental status grossly normal Skin no rashes or lesions noted <Dr. Tavon Rodriguez DO - Last Filed: 04/27/23 09:02> Physical Exam Const Vital Signs: 04/27/23 05:45 04/27/23 05:49 04/27/23 06:23 Temperature 97.0 F L Temperature Source Temporal Pulse Rate 79 85 Respiratory Rate 20 H 16 Respiratory Effort Normal Respiratory Pattern Normal Blood Pressure 105/46 L 115/46 L Blood Pressure Mean 65 69 Pulse Ox 98 98 Oxygen Delivery Method Room Air Room Air MDM <Dr. Kaye Gardner MD - Last Filed: 04/27/23 07:02> [facility] MDM Narrative Medical decision making narrative: IV fluids have been initiated by EMS. At time of my initial evaluation her systolic blood pressure is around 120. Additional IV fluid bolus was ordered. Labwork obtained to evaluate for leukocytosis, anemia, and electrolyte derangement. CT scan of the abdomen pelvis ordered to evaluate for progression of diverticulitis. Stool studies ordered given the patient's copious diarrhea and history of C. difficile. Lab Data Labs: Laboratory Results - last 24 hr 04/27/23 06:17 WBC 17.0 H RBC 4.12 L Hgb 12.4 Hct 38.4 MCV 93.2 MCH 30.1 MCHC 32.3 RDW Std Deviation 45.3 H RDW Coeff of Pat 13.2 Plt Count 266 MPV 10.2 Immature Gran % (Auto) 0.500 Neut % (Auto) 74.8 H Lymph % (Auto) 15.0 L [place] % (Auto) 9.2 Eos % (Auto) 0.1 Baso % (Auto) 0.4 Absolute Neuts (auto) 12.7 H Absolute Lymphs (auto) 2.54 Nucleated RBC % 0 Differential Comment SCANNED Diff Path Review February foll Sodium 133 L Potassium 3.7 Chloride 101 Carbon Dioxide 17.0 L Anion Gap 15 BUN 13 Creatinine 1.20 H Estim Creat Clear Calc 29.22 Est GFR (MDRD) Af Amer 56 L Est GFR (MDRD) Non-Af 47 L BUN/Creatinine Ratio 10.8 Glucose 70 L Calcium 8.9 Total Bilirubin 0.50 Direct Bilirubin 0.14 AST 27 ALT 24 Alkaline Phosphatase 72 Troponin I High Sens 6 Total Protein 6.6 Albumin 2.9 L Globulin 3.7 Lipase 18 Radiography Diagnostic Testing: Clinical Impression(s) from Imaging Studies Abdomen/Pelvis CT 04/27/23 05:54 IMPRESSION: Mild colitis 1. There is mild thickening of the wall of the sigmoid colon. A few diverticula of the sigmoid colon are redemonstrated and are not inflamed. Unremarkable remaining aspects of the colon. Not The appendix is visualized and appears normal. 2. Small amount of abdominal and pelvic ascites. Electronically Signed: Reilly Klein MD at 8:19 EDT , EKG Initial EKG: Attestation: I personally reviewed and interpreted this EKG as follows: Interpretation: Sinus Rhythm (Sinus 82 with no acute ischemia.) Treatment and Re-Evaluation :: Patient systolic blood pressure has remained between 105 and 125 since arrival to the emergency room. CBC reveals white count to be elevated to 17.0. This is increased when compared to her labs from 1 week ago. Differential reveals 75% neutrophils. Remainder blood work is pending at this time. Patient be signed out to oncoming physician for further evaluation and disposition. <Dr. Tavon Rodriguez, DO - Last Filed: 04/27/23 09:02> [facility] Lab Data Attestation: I reviewed the patient's lab results. Lab results narrative: DBC with mild leukocytosis concerning for systemic inflammation, no significant anemia or thrombocytopenia noted BMP without significant electrolyte abnormalities, there is no anion gap to suggest endorgan hypoperfusion, the patient's carbon dioxide is low and this test would suggest a component of metabolic acidosis there is mild acute kidney injury Lipase is wnl indicating no pancreatic inflammation. LFTs show no evidence of hepatobiliary pathology. Troponin is negative, no evidence of myocardial ischemia Initial EKG with normal sinus rhythm, normal axis, normal intervals, no STEMI Labs: Laboratory Results - last 24 hr 04/27/23 06:17 WBC 17.0 H RBC 4.12 L Hgb 12.4 Hct 38.4 MCV 93.2 MCH 30.1 MCHC 32.3 RDW Std Deviation 45.3 H RDW Coeff of Pat 13.2 Plt Count 266 MPV 10.2 Immature Gran % (Auto) 0.500 Neut % (Auto) 74.8 H Lymph % (Auto) 15.0 L [place] % (Auto) 9.2 Eos % (Auto) 0.1 Baso % (Auto) 0.4 Absolute Neuts (auto) 12.7 H Absolute Lymphs (auto) 2.54 Nucleated RBC % 0 Differential Comment SCANNED Diff Path Review May foll Sodium 133 L Potassium 3.7 Chloride 101 Carbon Dioxide 17.0 L Anion Gap 15 BUN 13 Creatinine 1.20 H Estim Creat Clear Calc 29.22 Est GFR (MDRD) Af Amer 56 L Est GFR (MDRD) Non-Af 47 L BUN/Creatinine Ratio 10.8 Glucose 70 L Calcium 8.9 Total Bilirubin 0.50 Direct Bilirubin 0.14 AST 27 ALT 24 Alkaline Phosphatase 72 Troponin I High Sens 6 Total Protein 6.6 Albumin 2.9 L Globulin 3.7 Lipase 18 Radiography Diagnostic Testing: Clinical Impression(s) from Imaging Studies Abdomen/Pelvis CT 04/27/23 05:54 IMPRESSION: Mild colitis 1. There is mild thickening of the wall of the sigmoid colon. A few diverticula of the sigmoid colon are redemonstrated and are not inflamed. Unremarkable remaining aspects of the colon. Not The appendix is visualized and appears normal. 2. Small amount of abdominal and pelvic ascites. Electronically Signed: Reilly Klein MD at 8:19 EDT Reading Location ID and State: [id number] / [place] , Service support , Treatment and Re-Evaluation :: Patient systolic blood pressure has remained between 105 and 125 since arrival to the emergency room. CBC reveals white count to be elevated to 17.0. This is increased when compared to her labs from 1 week ago. Differential reveals 75% neutrophils. Remainder blood work is pending at this time. Patient be signed out to oncoming physician for further evaluation and disposition. Patient was received from Dr. Quinteros at 7 AM No acute events under my care. Patient made hemodynamically stable. Repeat abdominal exam is benign. CT scan showed no evidence of perforated diverticula. Labs consistent with dehydration. Likely patient has C. difficile. Sent ova parasites, stool culture and C. difficile. Given the patient advanced age, hypotension multiple recent ED visits and inability to take oral antibiotics will admit for observation, hydration and further evaluation. Discussed the case with Dr. Guan. Discharge Plan Dx/Rx/DC Orders Clinical Impression: Near syncope, Hypotension, EVELYN (acute kidney injury) Disposition Disposition: Acute Care Hospital [facility]
[2023-04-27] MEDS: 0.9% Normal Saline 1,000 ML 1000 ML IV (06:05)
[2023-04-27 06:22] LABS: Absolute Lymphocyte Count 2.54 X10^3/uL (0.83-4.51); Absolute Neutrophil Count 12.7 X10^3/uL (2.0-7.7); Basophil# 0.07 X10^3/uL; Basophil% 0.4 % (0-1); Eosinophil# 0.01 X10^3/uL; Eosinophils% 0.1 % (0-5); Hematocrit 38.4 % (37-47); Hemoglobin 12.4 g/dL (12.0-15.0); Lymphocyte # 2.54 X10^3/ul (0.83-4.51); Mean Corp Hgb Conc 32.3 g/dL (32-36); Mean Corpuscular Hgb 30.1 pg (27.0-32.0); Mean Corpuscular Volume 93.2 fL (81-99); Mean Platelet Vol. 10.2 fl (6.2-12.0); Monocyte# 1.56 X10^3/uL; Monocyte% 9.2 % (0-10); NRBC Flagged by Analyzer 0 % (0-5); Neutrophil # 12.68 X10^3/uL (2.7-7.7); Neutrophil % 74.8 % (47-70); POSITIVE DIFFERENTIAL YES; Platelet Count 266 K/mm3 (150-450); RBC Distribution Width CV 13.2 % (11.6-14.6); RBC Distribution Width SD 45.3 fl (35.1-43.9); Red Blood Count 4.12 M/mm3 (4.2-5.4)
[2023-04-27 06:43] LABS: Differential Indicated SCAN CRITERIA MET
[2023-04-27] MEDS: 0.9% Normal Saline 1,000 ML 150 ML IV (07:08)
[2023-04-27 07:09] LABS: Differential Comment SCANNED
[2023-04-27 07:43] LABS: AST(SGOT) 27 U/L (15-37); Alanine Aminotransfer ALT/SGPT 24 U/L (13-56); Albumin, Serum 2.9 g/dL (3.2-5.0); Alkaline Phosphatase 72 U/L (45-117); Anion Gap 15 (5-15); BUN 13 mg/dL (7-18); BUN/Creat Ratio 10.8 RATIO (10-20); Bilirubin, Direct 0.14 mg/dL (0.00-0.30); Calcium,Total 8.9 mg/dL (8.5-10.1); Chloride 101 mmol/L (98-107); EST Glomerular Filtration Rate 47 mL/min (>60); Est Glom Filt Rate - Afr Amer 56 mL/min (>60); Estimated Creatinine Clearance 29.22 ml/min; Globulin 3.7 g/dL (2.2-4.2); Glucose 70 mg/dL (74-106); Potassium 3.7 mmol/L (3.5-5.1); Protein, Total 6.6 g/dL (6.4-8.2); Sodium Level 133 mmol/L (136-145)
[2023-04-27 07:55] LABS: Lipase 18 U/L (13-75); Troponin-I HS 6 pg/mL (3.0-54.0)
--- NOTE | 2023-04-27 08:58 | NURSING ---
DR MADAN HOYT
--- NOTE | 2023-04-27 09:04 | PCM.HP.STD ---
HPI - General General Date of Admission: 04/27/23 Date of Service: 04/27/23 Chief Complaint: Generalized weakness HPI Narrative LAURENCE KOROMA, is a 72 F who presents with generalized weakness. Patient had recently been diagnosed with acute diverticulitis discharged home on oral antibiotics from the emergency department. Patient reports progressive generalized weakness of 3 weeks duration. She also did notice diarrhea over the same period of time. In view of increasing fatigue patient presented to the emergency department. Patient was found to be hypotensive with systolic blood pressure in the 60s. Resuscitated with IV fluid. Patient underwent subsequent evaluation with CT of the abdomen and pelvis which demonstrated mild thickening of the wall of the sigmoid colon and a few diverticula of sigmoid colon not inflamed. She was also found to have leukocytosis. Patient was empirically started on vancomycin pending results of her C. difficile assay. Admitted to regular nursing floor for further management [facility] Medical History Aortic insufficiency Chronic back pain Dehydration Diarrhea Elevated plasma metanephrines Essential hypertension Fatigue LALO (generalized anxiety disorder) Gastroenteritis Hemorrhoid History of Clostridium difficile colitis Insomnia Nausea Osteoarthritis Osteoporosis Sleep apnea Syncope Weight loss Home Medications multivitamin 1 ea PO DAILY 10/11/15 [History Last Taken Unknown] hydrochlorothiazide 12.5 mg capsule 12.5 mg PO QDAY 02/14/18 [History Last Taken Unknown] potassium chloride 20 mEq tablet,extended release 8 meq PO BID 02/14/18 [History Last Taken Unknown] gymnema leaf (bulk) 100 % powder 1 g miscellaneous DAILY 11/22/20 [History Last Taken Unknown] calcium carbonate 600 mg calcium (1,500 mg) tablet 600 mg PO BID 03/15/23 [History Last Taken Unknown] acyclovir 800 mg tablet 800 mg PO DAILY FEVER BLISTER 04/18/23 [History Last Taken Unknown] alendronate 70 mg tablet 70 mg PO QWEEK 04/18/23 [History Last Taken Unknown] glucosamine 750 [id number]-qwz no.1 625 mg-C 30 zr-ihgq-dovp tablet 1 tab PO BID 04/18/23 [History Last Taken Unknown] lisinopril 40 mg tablet 40 mg PO DAILY 04/18/23 [History Last Taken Unknown] amoxicillin 875 mg-potassium clavulanate 125 mg tablet 875 mg (0.875 x 875-125 mg) PO Q12H #20 TABLETS 04/19/23 [Rx Last Taken Unknown] hydrocodone-acetaminophen 5-325mg 5mg-325mg 1 tab PO Q6H PRN PRN Pain 3 days #10 TABLETS 04/19/23 [Rx Last Taken Unknown] ondansetron 4 mg disintegrating tablet 4 mg PO Q8H PRN PRN Nausea #10 tabs 04/19/23 [Rx Last Taken Unknown] Allergy/AdvReac Type Severity Reaction Status Date / Time Sulfa (Sulfonamide Allergy Intermediate Hives Verified 04/27/23 05:52 Antibiotics) azithromycin AdvReac Nausea Verified 04/27/23 05:52 [From Zithromax Z-Bruce] Family History Mother Hypertension Father Heart disease Cancer skin cancer Grandmother Heart disease CVA (cerebral vascular accident) Surgical History History of colonoscopy History of tonsillectomy Social History Smoking Status: Never smoker alcohol intake: never substance use type: does not use ROS ROS Narrative GENERAL: denies fever, chills, night sweats, weight loss, anorexia HEENT: denies headache, sinus congestion, or drainage, dysphagia RESPIRATORY: denies cough, sputum production, shortness of breath, dyspnea on exertion CARDIAC: denies chest pain, palpitations, orthopnea, PND GASTROINTESTINAL: Abdominal pain and diarrhea GENITOURINARY: denies dysuria, urgency, frequency, heamaturia EXTREMITY: denies swelling MUSCULOSKELETAL: denies current joint pain or tenderness NEUROLOGIC: denies focal numbness, weakness, tingling HEMATOLOGIC: denies easy bruising and/or hemorrhage INTEGUMENT: denies rashes PSYCHIATRIC: denies suicidal or homicidal ideation Vital Signs Vital Signs Vital Signs: 04/27/23 05:45 04/27/23 05:49 04/27/23 06:23 Temperature 97.0 F L Temperature Source Temporal Pulse Rate 79 85 Respiratory Rate 20 H 16 Respiratory Effort Normal Respiratory Pattern Normal Blood Pressure 105/46 L 115/46 L Blood Pressure Mean 65 69 Pulse Ox 98 98 Oxygen Delivery Method Room Air Room Air Weight Weight: 45 kg Body Mass Index (BMI) 19.3 Physical Exam Narrative GENERAL: cooperative but frail looking HEENT: Atraumatic; normocephalic EYES; Anicteric, Normal Conjunctiva NECK; supple, normal thyroid, RESPIRATORY: Diminished to auscultation CARDIOVASCULAR: Regular S1 S2, GI: soft, normoactive bowel sounds, : No Renal angle tenderness; EXTREMITIES: No edema, no clubbing, MUSCULOSKELETAL: no muscle wasting NEURO: Awake; no lateralizing signs. SKIN: No Rash PSYCH; Flat affect Results Lab / Micro Data 04/27/23 06:17 04/27/23 06:17 Labs: Laboratory Results - last 24 hr 04/27/23 06:17: WBC 17.0 H, RBC 4.12 L, Hgb 12.4, Hct 38.4, MCV 93.2, MCH 30.1, MCHC 32.3, RDW Std Deviation 45.3 H, RDW Coeff of Pat 13.2, Plt Count 266, MPV 10.2, Immature Gran % (Auto) 0.500, Neut % (Auto) 74.8 H, Lymph % (Auto) 15.0 L, [place] % (Auto) 9.2, Eos % (Auto) 0.1, Baso % (Auto) 0.4, Absolute Neuts (auto) 12.7 H, Absolute Lymphs (auto) 2.54, Nucleated RBC % 0, Differential Comment SCANNED, Diff Path Review February, Sodium 133 L, Potassium 3.7, Chloride 101, Carbon Dioxide 17.0 L, Anion Gap 15, BUN 13, Creatinine 1.20 H, Estim Creat Clear Calc 29.22, Est GFR (MDRD) Af Amer 56 L, Est GFR (MDRD) Non-Af 47 L, BUN/Creatinine Ratio 10.8, Glucose 70 L, Calcium 8.9, Total Bilirubin 0.50, Direct Bilirubin 0.14, AST 27, ALT 24, Alkaline Phosphatase 72, Troponin I High Sens 6, Total Protein 6.6, Albumin 2.9 L, Globulin 3.7, Lipase 18 Radiology Impression Abdomen/Pelvis CT 04/27/23 05:54 IMPRESSION: Mild colitis 1. There is mild thickening of the wall of the sigmoid colon. A few diverticula of the sigmoid colon are redemonstrated and are not inflamed. Unremarkable remaining aspects of the colon. Not The appendix is visualized and appears normal. 2. Small amount of abdominal and pelvic ascites. Electronically Signed: Reilly Klein MD at 8:19 EDT Reading Location ID and State: [facility] / [place] , Service support , Assessment & Plan Assessment/Plan (1) EVELYN (acute kidney injury): (2) Hypotension: QUALIFIERS: Hypotension type: hypotension due to hypovolemia Qualified Code(s): I95.89 - Other hypotension; E86.1 - Hypovolemia (3) Diarrhea: QUALIFIERS: Diarrhea type: presumed infectious Qualified Code(s): R19.7 - Diarrhea, unspecified PLAN: Plan Patient is a 72-year-old lady presented with progressive generalized weakness with diarrhea and hypotension 1. Acute hypotension ? Secondary to hypovolemia as well as use of antihypertensive medication. Admitted to regular nursing floor patient started on IV fluid resuscitation with acute shift orthostatics ordered 2. Acute kidney injury ? Secondary to above patient on IV fluid with subsequent monitoring of electrolytes ordered 3. Diarrhea ? Presumed infectious diarrhea patient has history of C. difficile colitis. Patient was placed in enteric precautions pending results of C. difficile assay. Was also empirically started on p.o. vancomycin. CT of the abdomen and pelvis obtained demonstrated thickening of the sigmoid colon 4. Recent sigmoid diverticulitis ? There was no evidence of diverticulitis on CT of the abdomen and pelvis obtained on admission 5. Essential hypertension ? Patient antihypertensives placed on hold 6. Osteoporosis ? Patient is on alendronate q. weekly plan is to resume following patient discharge 7. Hyponatremia ? Secondary to hypovolemic hyponatremia on IV fluid with subsequent electrolytes monitoring ordered 8. DVT prophylaxis - On enoxaparin Time spent in the patient's overall evaluation,decision-making process, review of diagnostic data, adjustment of management, discussion with other providers, nursing nursing and ancillary staff involved in patient's care documentation, 75 minutes Advance planning; did discuss with the patient and family regarding advanced directives as well as CODE STATUS. Did explain the various scenarios involved ( FULL CODE, DNR CCA, DNR CCA with no intubation, and DNR CC and what each meant) elected to remain full code with CPR and intubation if needed. Order was placed. Time spent on discussion 18 minutes. Charges/Coding Visit Charges Inpatient E&M: 88078 Init Hosp L3 Procedures Hospitalists Procedures: 15121 Advncd Care Plan 30 Min
--- NOTE | 2023-04-27 09:09 | NURSING ---
301 OBS KITTOE HYPOTENSION, DIARRHEA, RENAL INSUFFICIENCY
[2023-04-27 10:50] LABS: Pathologist Review Reviewed
[2023-04-27] MEDS: KCl 20MEQ in D5NS 20 MEQ/1,000 ML IV.SOLN. 150 MEQ IV ×2 (11:21→17:59)
[2023-04-27] MEDS: Enoxaparin 30 MG/0.3 ML Syringe SC (11:24)
[2023-04-27] MEDS: Vancomycin 125 MG/5 ML Susp PO.SYRINGE PO ×3 (11:25→23:14)
--- NOTE | 2023-04-27 13:51 | CASEMGMT ---
GABBY BRUNER Discharge Planning Assessment: Face to Face with patient for initial transition planning/care coordination assessment.?GABBY BRUNER introduced self and role at [facility], pt alert, oriented x4, voices understanding, and is agreeable to participating in assessment.? Care providers, pharmacy,?and demographics verified. ? Admitting Dx: colitis, hypotension, EVELYN PCP: Santos Specialists: Russell (Vascular) Preferred Pharmacy: [facility] Insurance: MMO, MCR A Prescription Benefit:?Yes LNOK: daughter Amirah Living Arrangements: Pt [place] alone [place] a [place] with 5-6 steps to enter. Pt states she is independent with ADLs including self care and household tasks. 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 Transportation: Pt drives and denies any concerns with transportation DME/HHC/SNF: denies ? Plan: Pt states she plans to return to her own home at discharge with the support of her daughter. Denies any discharge needs or concerns at this time. Will continue to monitor and assist with DC needs as identified. Cheyenne Leon RN CM
[2023-04-27] MEDS: MELATONIN 3 MG TABLET PO (23:14)
[2023-04-28] MEDS: KCl 20MEQ in D5NS 20 MEQ/1,000 ML IV.SOLN. 150 MEQ IV (01:07)
[2023-04-28 03:01] VITALS: BP 121/55; PULSE 90; RESP 18; TEMP 36.7; O2SAT 97
[2023-04-28] MEDS: Vancomycin 125 MG/5 ML Susp PO.SYRINGE PO ×4 (06:16→23:24)
[2023-04-28 06:24] VITALS: BMI 20.7
[2023-04-28 06:38] LABS: Absolute Lymphocyte Count 1.74 X10^3/uL (0.83-4.51); Absolute Neutrophil Count 6.5 X10^3/uL (2.0-7.7); Basophil# 0.02 X10^3/uL; Basophil% 0.2 % (0-1); Eosinophil# 0.04 X10^3/uL; Eosinophils% 0.4 % (0-5); Hematocrit 31.6 % (37-47); Hemoglobin 10.3 g/dL (12.0-15.0); Lymphocyte # 1.74 X10^3/ul (0.83-4.51); Lymphocyte % 19.2 % (19-41); Mean Corp Hgb Conc 32.6 g/dL (32-36); Mean Corpuscular Hgb 29.7 pg (27.0-32.0); Mean Corpuscular Volume 91.1 fL (81-99); Mean Platelet Vol. 10.6 fl (6.2-12.0); Monocyte# 0.76 X10^3/uL; Monocyte% 8.4 % (0-10); NRBC Flagged by Analyzer 0 % (0-5); Neutrophil # 6.46 X10^3/uL (2.7-7.7); Neutrophil % 71.4 % (47-70); Platelet Count 223 K/mm3 (150-450); RBC Distribution Width CV 13.5 % (11.6-14.6); RBC Distribution Width SD 45.1 fl (35.1-43.9); Red Blood Count 3.47 M/mm3 (4.2-5.4); White Blood Count 9.1 K/mm3 (4.4-11.0)
[2023-04-28 07:05] LABS: Anion Gap 4 (5-15); BUN 5 mg/dL (7-18); BUN/Creat Ratio 9.7 RATIO (10-20); Calcium,Total 7.5 mg/dL (8.5-10.1); Chloride 118 mmol/L (98-107); Creatinine, Serum 0.52 mg/dL (0.55-1.02); EST Glomerular Filtration Rate 124 mL/min (>60); Est Glom Filt Rate - Afr Amer 150 mL/min (>60); Estimated Creatinine Clearance 35.45 ml/min; Glucose 153 mg/dL (74-106); Magnesium 1.9 mg/dL (1.6-2.6); Phosphorus 1.2 mg/dL (2.5-4.9); Potassium 3.8 mmol/L (3.5-5.1); Sodium Level 143 mmol/L (136-145)
--- NOTE | 2023-04-28 07:27 | PCM.PN.HOSP ---
Reason for Visit Reason for Visit: Diagnoses Hypovolemia (04/27/23) Other hypotension (04/27/23) Acute kidney failure, unspecified (04/27/23) Diarrhea, unspecified (04/27/23) Subjective Subjective Patient seen still complains of diarrhea. Stool for C. difficile still pending Objective Data Objective Data Vital Signs: Vital Signs Temp Pulse Resp BP Pulse Ox O2 Del Method 98.1 F 90 18 121/55 H 97 Room Air 04/28/23 03:01 04/28/23 03:01 04/28/23 03:01 04/28/23 03:01 04/28/23 03:01 04/28/23 03:22 Oxygen Delivery Method Room Air Weight: 47.9 kg Body Mass Index (BMI) 20.7 Intake & Output: Intake and Output for Last 24 Hours 04/26/23 04/27/23 04/28/23 23:59 23:59 23:59 Intake Total 2995 / 2995 1500 / 1500 Balance 2995 / 2995 1500 / 1500 Lab / Micro Data 04/28/23 05:20 04/28/23 05:20 Labs: Laboratory Results - last 24 hr 04/27/23 06:17: Diff Path Review Reviewed, Sodium 133 L, Potassium 3.7, Chloride 101, Carbon Dioxide 17.0 L, Anion Gap 15, BUN 13, Creatinine 1.20 H, Estim Creat Clear Calc 29.22, Est GFR (MDRD) Af Amer 56 L, Est GFR (MDRD) Non-Af 47 L, BUN/Creatinine Ratio 10.8, Glucose 70 L, Calcium 8.9, Total Bilirubin 0.50, Direct Bilirubin 0.14, AST 27, ALT 24, Alkaline Phosphatase 72, Troponin I High Sens 6, Total Protein 6.6, Albumin 2.9 L, Globulin 3.7, Lipase 18 04/28/23 05:20: WBC 9.1, RBC 3.47 L, Hgb 10.3 L, Hct 31.6 L, MCV 91.1, MCH 29.7, MCHC 32.6, RDW Std Deviation 45.1 H, RDW Coeff of Pat 13.5, Plt Count 223, MPV 10.6, Immature Gran % (Auto) 0.400, Neut % (Auto) 71.4 H, Lymph % (Auto) 19.2, [place] % (Auto) 8.4, Eos % (Auto) 0.4, Baso % (Auto) 0.2, Absolute Neuts (auto) 6.5, Absolute Lymphs (auto) 1.74, Nucleated RBC % 0, Sodium 143, Potassium 3.8, Chloride 118 H, Carbon Dioxide 21.0, Anion Gap 4 L, BUN 5 L, Creatinine 0.52 L, Estim Creat Clear Calc 35.45, Est GFR (MDRD) Af Amer 150, Est GFR (MDRD) Non-Af 124, BUN/Creatinine Ratio 9.7 L, Glucose 153 H, Calcium 7.5 L, Phosphorus 1.2 L, Magnesium 1.9 Radiography Diagnostic Testing: Radiology Impression Abdomen/Pelvis CT 04/27/23 05:54 IMPRESSION: Mild colitis 1. There is mild thickening of the wall of the sigmoid colon. A few diverticula of the sigmoid colon are redemonstrated and are not inflamed. Unremarkable remaining aspects of the colon. Not The appendix is visualized and appears normal. 2. Small amount of abdominal and pelvic ascites. Electronically Signed: Reilly Klein MD at 8:19 EDT Reading Location ID and State: [address] [place] [address] , Service support , Physical Exam Narrative GENERAL: cooperative but frail looking HEENT: Atraumatic; normocephalic EYES; Anicteric, Normal Conjunctiva NECK; supple, normal thyroid, RESPIRATORY: Diminished to auscultation CARDIOVASCULAR: Regular S1 S2, GI: soft, normoactive bowel sounds, : No Renal angle tenderness; EXTREMITIES: No edema, no clubbing, MUSCULOSKELETAL: no muscle wasting NEURO: Awake; no lateralizing signs. SKIN: No Rash PSYCH; Flat affect Assessment & Plan Assessment/Plan (1) EVELYN (acute kidney injury): (2) Hypotension: QUALIFIERS: Hypotension type: hypotension due to hypovolemia Qualified Code(s): I95.89 - Other hypotension; E86.1 - Hypovolemia (3) Diarrhea: QUALIFIERS: Diarrhea type: presumed infectious Qualified Code(s): R19.7 - Diarrhea, unspecified PLAN: Plan Patient is a 72-year-old lady presented with progressive generalized weakness with diarrhea and hypotension 1. Acute hypotension ? Secondary to hypovolemia as well as use of antihypertensive medication. Admitted to regular nursing floor patient started on IV fluid resuscitation with acute shift orthostatics ordered ? 04/28/2023; patient seen blood pressure has stabilized 2. Acute kidney injury ? Secondary to above patient on IV fluid with subsequent monitoring of electrolytes ordered ? 04/28/2023 EVELYN resolved 3. Diarrhea ? Presumed infectious diarrhea patient has history of C. difficile colitis. Patient was placed in enteric precautions pending results of C. difficile assay. Was also empirically started on p.o. vancomycin. CT of the abdomen and pelvis obtained demonstrated thickening of the sigmoid colon ? 04/28/2023;Patient seen still complains of diarrhea. Stool for C. difficile still pending 4. Recent sigmoid diverticulitis ? There was no evidence of diverticulitis on CT of the abdomen and pelvis obtained on admission 5. Essential hypertension ? Patient antihypertensives placed on hold 6. Osteoporosis ? Patient is on alendronate q. weekly plan is to resume following patient discharge 7. Hyponatremia ? Secondary to hypovolemic hyponatremia on IV fluid with subsequent electrolytes monitoring ordered 8. DVT prophylaxis - On enoxaparin Time spent in the patient's overall evaluation,decision-making process, review of diagnostic data, adjustment of management, discussion with other providers, nursing nursing and ancillary staff involved in patient's care documentation, 35 minutes Charges/Coding Visit Charges Inpatient E&M: 52205 [facility] [place] Hosp L2
[2023-04-28 09:00] VITALS: BP 139/61; PULSE 82; RESP 15; TEMP 37.1; O2SAT 99
[2023-04-28] MEDS: Enoxaparin 30 MG/0.3 ML Syringe SC (10:28)
[2023-04-28 14:58] VITALS: BP 154/64; PULSE 81; RESP 15; TEMP 36.7; O2SAT 99
[2023-04-28 20:49] VITALS: BP 170/67; PULSE 90; RESP 18; TEMP 37.7; O2SAT 99
[2023-04-28] MEDS: Lisinopril 40 MG Tablet PO (23:24)
[2023-04-28] MEDS: MELATONIN 3 MG TABLET PO (23:24)
[2023-04-29 03:42] VITALS: BP 152/68; PULSE 99; RESP 18; TEMP 36.8; O2SAT 98
[2023-04-29 05:26] VITALS: BMI 19.1
[2023-04-29] MEDS: Vancomycin 125 MG/5 ML Susp PO.SYRINGE PO ×4 (05:53→23:36)
[2023-04-29 06:09] LABS: Absolute Lymphocyte Count 2.69 X10^3/uL (0.83-4.51); Absolute Neutrophil Count 7.6 X10^3/uL (2.0-7.7); Basophil# 0.03 X10^3/uL; Basophil% 0.3 % (0-1); Eosinophil# 0.24 X10^3/uL; Eosinophils% 2.2 % (0-5); Hematocrit 37.1 % (37-47); Lymphocyte # 2.69 X10^3/ul (0.83-4.51); Lymphocyte % 24.1 % (19-41); Mean Corp Hgb Conc 32.3 g/dL (32-36); Mean Corpuscular Hgb 29.9 pg (27.0-32.0); Mean Corpuscular Volume 92.3 fL (81-99); Mean Platelet Vol. 10.9 fl (6.2-12.0); Monocyte# 0.57 X10^3/uL; Monocyte% 5.1 % (0-10); NRBC Flagged by Analyzer 0 % (0-5); Platelet Count 259 K/mm3 (150-450); RBC Distribution Width CV 13.5 % (11.6-14.6); RBC Distribution Width SD 46.2 fl (35.1-43.9); Red Blood Count 4.02 M/mm3 (4.2-5.4); White Blood Count 11.2 K/mm3 (4.4-11.0)
[2023-04-29 06:39] LABS: Anion Gap 5 (5-15); BUN 2 mg/dL (7-18); BUN/Creat Ratio 3.5 RATIO (10-20); Calcium,Total 8.5 mg/dL (8.5-10.1); Chloride 111 mmol/L (98-107); Creatinine, Serum 0.57 mg/dL (0.55-1.02); EST Glomerular Filtration Rate 111 mL/min (>60); Est Glom Filt Rate - Afr Amer 134 mL/min (>60); Estimated Creatinine Clearance 34.44 ml/min; Glucose 89 mg/dL (74-106); Potassium 3.7 mmol/L (3.5-5.1); Sodium Level 140 mmol/L (136-145)
--- NOTE | 2023-04-29 07:20 | PN.HOSP_ITS ---
Reason for Visit Reason for Visit: Diagnoses Hypovolemia (04/27/23) Other hypotension (04/27/23) Acute kidney failure, unspecified (04/27/23) Diarrhea, unspecified (04/27/23) Subjective Subjective Patient is to assess for significant back positive. Patient had been started on vancomycin on admission Objective Data Objective Data Vital Signs: Vital Signs Temp Pulse Resp BP Pulse Ox O2 Del Method 98.3 F 99 18 152/68 H 98 Room Air 04/29/23 03:42 04/29/23 03:42 04/29/23 03:42 04/29/23 03:42 04/29/23 03:42 04/29/23 04:00 Oxygen Delivery Method Room Air Weight: 44.2 kg Body Mass Index (BMI) 19.1 Intake & Output: Intake and Output for Last 24 Hours 04/27/23 04/28/23 04/29/23 23:59 23:59 23:59 Intake Total 2995 / 2995 2850 / 3050 300 / 300 Balance 2995 / 2995 2850 / 3050 300 / 300 Lab / Micro Data 04/29/23 05:08 04/29/23 05:08 Labs: Laboratory Results - last 24 hr 04/29/23 05:08: WBC 11.2 H, RBC 4.02 L, Hgb 12.0, Hct 37.1, MCV 92.3, MCH 29.9, MCHC 32.3, RDW Std Deviation 46.2 H, RDW Coeff of Pat 13.5, Plt Count 259, MPV 10.9, Immature Gran % (Auto) 0.300, Neut % (Auto) 68.0, Lymph % (Auto) 24.1, [place] % (Auto) 5.1, Eos % (Auto) 2.2, Baso % (Auto) 0.3, Absolute Neuts (auto) 7.6, Absolute Lymphs (auto) 2.69, Nucleated RBC % 0, Sodium 140, Potassium 3.7, Chloride 111 H, Carbon Dioxide 24.0, Anion Gap 5, BUN 2 L, Creatinine 0.57, Estim Creat Clear Calc 34.44, Est GFR (MDRD) Af Amer 134, Est GFR (MDRD) Non-Af 111, BUN/Creatinine Ratio 3.5 L, Glucose 89, Calcium 8.5 Micro: Microbiology 04/28/23 07:15 Stool Stool Lactoferrin - Final 04/28/23 07:15 Stool Enteric Bacteriology - Final 04/28/23 07:15 Stool C. difficile GDH Antigen & Toxins - Final Toxigenic C. difficile 04/28/23 07:15 Stool C. difficile DNA Amplification - Final Physical Exam Narrative GENERAL: cooperative but frail looking HEENT: Atraumatic; normocephalic EYES; Anicteric, Normal Conjunctiva NECK; supple, normal thyroid, RESPIRATORY: Diminished to auscultation CARDIOVASCULAR: Regular S1 S2, GI: soft, normoactive bowel sounds, : No Renal angle tenderness; EXTREMITIES: No edema, no clubbing, MUSCULOSKELETAL: no muscle wasting NEURO: Awake; no lateralizing signs. SKIN: No Rash PSYCH; Flat affect Assessment & Plan Assessment/Plan (1) EVELYN (acute kidney injury): (2) Hypotension: QUALIFIERS: Hypotension type: hypotension due to hypovolemia Qualified Code(s): I95.89 - Other hypotension; E86.1 - Hypovolemia (3) Diarrhea: QUALIFIERS: Diarrhea type: presumed infectious Qualified Code(s): R19.7 - Diarrhea, unspecified PLAN: Plan Patient is a 72-year-old lady presented with progressive generalized weakness with diarrhea and hypotension 1. Acute hypotension ? Secondary to hypovolemia as well as use of antihypertensive medication. Admitted to regular nursing floor patient started on IV fluid resuscitation with acute shift orthostatics ordered ? 04/28/2023; patient seen blood pressure has stabilized 2. Acute kidney injury ? Secondary to above patient on IV fluid with subsequent monitoring of electrolytes ordered ? 04/28/2023 EVELYN resolved 3. Diarrhea ? Presumed infectious diarrhea patient has history of C. difficile colitis. Patient was placed in enteric precautions pending results of C. difficile assay. Was also empirically started on p.o. vancomycin. CT of the abdomen and pelvis obtained demonstrated thickening of the sigmoid colon ? 04/28/2023;Patient seen still complains of diarrhea. Stool for C. difficile still pending ? 04/29/2023; Patient is to assess for significant back positive. Patient had been started on vancomycin on admission 4. Recent sigmoid diverticulitis ? There was no evidence of diverticulitis on CT of the abdomen and pelvis obtained on admission 5. Essential hypertension ? Patient antihypertensives placed on hold ? 04/29/2023 did resume patient antihypertensive 6. Osteoporosis ? Patient is on alendronate q. weekly plan is to resume following patient discharge 7. Hyponatremia ? Secondary to hypovolemic hyponatremia on IV fluid with subsequent electrolytes monitoring ordered 8. DVT prophylaxis - On enoxaparin Time spent in the patient's overall evaluation,decision-making process, review of diagnostic data, adjustment of management, discussion with other providers, nursing nursing and ancillary staff involved in patient's care documentation, 35 minutes Charges/Coding Visit Charges Inpatient E&M: 56859 [facility] Hosp L2
[2023-04-29 09:00] VITALS: BP 156/68; PULSE 73; RESP 18; TEMP 36.6; O2SAT 99
[2023-04-29] MEDS: Lisinopril 40 MG Tablet PO (10:27)
[2023-04-29] MEDS: Enoxaparin 30 MG/0.3 ML Syringe SC (10:27)
[2023-04-29 11:00] VITALS: PULSE 73; RESP 18; O2SAT 99
[2023-04-29] MEDS: Loratadine 10 MG Tablet PO (11:37)
[2023-04-29] MEDS: Calcium (Elemental) 500 MG Tablet PO ×2 (11:37→18:01)
[2023-04-29] MEDS: Potassium Chloride Oral Tablet 10 MEQ PO ×2 (11:37→18:01)
[2023-04-29] MEDS: hydroCHLOROthiazide 12.5mg 12.5 MG PO (11:37)
[2023-04-29] MEDS: Aspirin E.C. 81 MG Tablet PO (11:37)
[2023-04-29 15:00] VITALS: BP 154/76; PULSE 81; RESP 18; TEMP 36.6; O2SAT 99
[2023-04-29 16:43] VITALS: PULSE 81; RESP 18; O2SAT 99
[2023-04-29 21:00] VITALS: BP 143/59; PULSE 78; RESP 16; TEMP 37.8; O2SAT 100
[2023-04-29] MEDS: MELATONIN 3 MG TABLET PO (23:36)
[2023-04-30 03:00] VITALS: BP 155/73; PULSE 81; RESP 16; TEMP 36.7; O2SAT 97
[2023-04-30] MEDS: Vancomycin 125 MG/5 ML Susp PO.SYRINGE PO ×4 (05:37→23:49)
[2023-04-30 06:00] VITALS: BMI 18.6
[2023-04-30 06:18] LABS: Absolute Lymphocyte Count 2.15 X10^3/uL (0.83-4.51); Absolute Neutrophil Count 3.6 X10^3/uL (2.0-7.7); Basophil# 0.04 X10^3/uL; Basophil% 0.6 % (0-1); Eosinophil# 0.41 X10^3/uL; Eosinophils% 6.2 % (0-5); Hematocrit 33.9 % (37-47); Hemoglobin 11.7 g/dL (12.0-15.0); Lymphocyte # 2.15 X10^3/ul (0.83-4.51); Lymphocyte % 32.4 % (19-41); Mean Corp Hgb Conc 34.5 g/dL (32-36); Mean Corpuscular Volume 89.7 fL (81-99); Mean Platelet Vol. 10.1 fl (6.2-12.0); Monocyte# 0.43 X10^3/uL; Monocyte% 6.5 % (0-10); NRBC Flagged by Analyzer 0 % (0-5); Neutrophil # 3.58 X10^3/uL (2.7-7.7); Platelet Count 233 K/mm3 (150-450); RBC Distribution Width CV 13.2 % (11.6-14.6); RBC Distribution Width SD 43.8 fl (35.1-43.9); Red Blood Count 3.78 M/mm3 (4.2-5.4); White Blood Count 6.6 K/mm3 (4.4-11.0)
[2023-04-30 06:54] LABS: Anion Gap 4 (5-15); BUN 4 mg/dL (7-18); BUN/Creat Ratio 6.9 RATIO (10-20); Chloride 108 mmol/L (98-107); Creatinine, Serum 0.58 mg/dL (0.55-1.02); EST Glomerular Filtration Rate 109 mL/min (>60); Est Glom Filt Rate - Afr Amer 131 mL/min (>60); Estimated Creatinine Clearance 33.43 ml/min; Glucose 88 mg/dL (74-106); Potassium 3.5 mmol/L (3.5-5.1); Sodium Level 139 mmol/L (136-145)
[2023-04-30 09:09] VITALS: BP 153/66; PULSE 80; RESP 16; TEMP 36.6; O2SAT 98
[2023-04-30] MEDS: Aspirin E.C. 81 MG Tablet PO (09:20)
[2023-04-30] MEDS: Loratadine 10 MG Tablet PO (09:21)
[2023-04-30] MEDS: Calcium (Elemental) 500 MG Tablet PO ×2 (09:21→17:11)
[2023-04-30] MEDS: hydroCHLOROthiazide 12.5mg 12.5 MG PO (09:21)
[2023-04-30] MEDS: Potassium Chloride Oral Tablet 10 MEQ PO ×2 (09:21→17:11)
[2023-04-30] MEDS: Lisinopril 40 MG Tablet PO (09:22)
[2023-04-30] MEDS: Enoxaparin 40 MG/0.4 ML Syringe SC (10:35)
--- NOTE | 2023-04-30 12:02 | CASEMGMT ---
RN CM into pt room, pt sitting up in bed in no distress. Pt nurse reported pt would like medic alert information. Provided pt with printed handouts of options. Answered pt questions, pt denies further needs.
--- NOTE | 2023-04-30 13:01 | PCM.PN.HOSP ---
Reason for Visit Reason for Visit: Diagnoses Hypovolemia (04/27/23) Other hypotension (04/27/23) Acute kidney failure, unspecified (04/27/23) Diarrhea, unspecified (04/27/23) Subjective Subjective Feeling somewhat generally weak however better than she had been, 2 bowel movements since this a.m. and are having slightly more formed, no abdominal pain however has some increased grumbling. Tolerated full liquids Objective Data Objective Data Vital Signs: Vital Signs Temp Pulse Resp BP Pulse Ox O2 Del Method 97.9 F 80 16 153/66 H 98 Room Air 04/30/23 09:09 04/30/23 09:09 04/30/23 09:09 04/30/23 09:09 04/30/23 09:09 04/30/23 09:09 Oxygen Delivery Method Room Air Weight: 42.9 kg Body Mass Index (BMI) 18.6 Intake & Output: Intake and Output for Last 24 Hours 04/28/23 04/29/23 04/30/23 23:59 23:59 23:59 Intake Total 2850 / 3050 1200 / 1200 200 / 200 Balance 2850 / 3050 1200 / 1200 200 / 200 Lab / Micro Data 04/30/23 06:05 04/30/23 06:05 Labs: Laboratory Results - last 24 hr 04/30/23 06:05: WBC 6.6, RBC 3.78 L, Hgb 11.7 L, Hct 33.9 L, MCV 89.7, MCH 31.0, MCHC 34.5 D, RDW Std Deviation 43.8, RDW Coeff of Pat 13.2, Plt Count 233, MPV 10.1, Immature Gran % (Auto) 0.300, Neut % (Auto) 54.0, Lymph % (Auto) 32.4, [place] % (Auto) 6.5, Eos % (Auto) 6.2 H, Baso % (Auto) 0.6, Absolute Neuts (auto) 3.6, Absolute Lymphs (auto) 2.15, Nucleated RBC % 0, Sodium 139, Potassium 3.5, Chloride 108 H, Carbon Dioxide 27.0, Anion Gap 4 L, BUN 4 L, Creatinine 0.58, Estim Creat Clear Calc 33.43, Est GFR (MDRD) Af Amer 131, Est GFR (MDRD) Non-Af 109, BUN/Creatinine Ratio 6.9 L, Glucose 88, Calcium 9.0 Micro: Microbiology 04/28/23 07:15 Stool Stool Lactoferrin - Final 04/28/23 07:15 Stool Enteric Bacteriology - Final 04/28/23 07:15 Stool C. difficile GDH Antigen & Toxins - Final Toxigenic C. difficile 04/28/23 07:15 Stool C. difficile DNA Amplification - Final Physical Exam Narrative General: Alert, oriented, no apparent distress HEENT: Atraumatic, normocephalic Eyes: Anicteric, normal conjunctiva, extraocular movements grossly intact Neck: Supple Respiratory: Normal respiratory effort Cardiovascular: Regular rate GI: Soft, nontender, nondistended, active bowel sounds Extremities: No edema Musculoskeletal: Moving all extremities Neuro: No overt focal neurological deficits Skin: No rashes appreciated Psych: Cooperative Assessment & Plan Assessment/Plan (1) EVELYN (acute kidney injury): (2) Hypotension: QUALIFIERS: Hypotension type: hypotension due to hypovolemia Qualified Code(s): I95.89 - Other hypotension; E86.1 - Hypovolemia (3) Diarrhea: QUALIFIERS: Diarrhea type: presumed infectious Qualified Code(s): R19.7 - Diarrhea, unspecified (4) Clostridium difficile diarrhea: PLAN: Plan #Diarrhea secondary to C. difficile infection -In light of recent antibiotic use secondary to diverticulitis -CT abdomen pelvis on admission demonstrated mild thickening of the wall of the sigmoid colon but no inflammation of diverticula -On p.o. vancomycin every 6 hours started in the a.m. 04/27, did have previous C. difficile episode that was in 2005 so we will treat with a vancomycin taper -Will likely treat w/ vancomycin 125 mg orally 4 times daily for 10 days, 125 mg orally 2 times daily for 7 days, 125 mg orally once daily for 7 days and 125 mg every other day for 2 weeks -Advance diet today, if patient doing well and tolerating diet will consider DC tomorrow #Hypotension secondary to hypovolemia in addition to home blood pressure medications?resolved -Resolved with volume resuscitation -Advance diet as tolerating #Leukocytosis-secondary to C. difficile infection -Resolved #Acute kidney injury, prerenal, secondary to dehydration -Resolved #History of hypertension -Now that #2 has resolved patient was restarted on lisinopril and hydrochlorothiazide #DVT ppx: Lovenox subq Caitlin Cadena, MD Time spent in the patient's overall evaluation,decision-making process, review of diagnostic data, adjustment of management, discussion with other providers, nursing nursing and ancillary staff involved in patient's care documentation, 51 Minutes Charges/Coding Visit Charges Inpatient E&M: 33081 Subs Hosp L3
[2023-04-30 13:31] VITALS: BP 135/65; PULSE 79; RESP 16; TEMP 36.7; O2SAT 98
[2023-04-30 22:00] VITALS: BP 160/62; PULSE 76; RESP 16; TEMP 37; O2SAT 97
[2023-05-01 03:05] VITALS: BMI 18.4
[2023-05-01 05:00] VITALS: BP 154/77; PULSE 73; RESP 16; TEMP 36.9; O2SAT 97
[2023-05-01] MEDS: Vancomycin 125 MG/5 ML Susp PO.SYRINGE PO ×3 (05:33→16:38)
[2023-05-01 06:27] LABS: Absolute Lymphocyte Count 2.31 X10^3/uL (0.83-4.51); Basophil# 0.03 X10^3/uL; Basophil% 0.5 % (0-1); Eosinophil# 0.37 X10^3/uL; Eosinophils% 5.9 % (0-5); Hematocrit 36.5 % (37-47); Hemoglobin 12.4 g/dL (12.0-15.0); Lymphocyte # 2.31 X10^3/ul (0.83-4.51); Lymphocyte % 37.1 % (19-41); Mean Corpuscular Hgb 30.8 pg (27.0-32.0); Mean Corpuscular Volume 90.6 fL (81-99); Mean Platelet Vol. 10.8 fl (6.2-12.0); Monocyte# 0.47 X10^3/uL; Monocyte% 7.6 % (0-10); NRBC Flagged by Analyzer 0 % (0-5); Neutrophil # 3.01 X10^3/uL (2.7-7.7); Neutrophil % 48.4 % (47-70); Platelet Count 306 K/mm3 (150-450); RBC Distribution Width CV 13.2 % (11.6-14.6); RBC Distribution Width SD 44.3 fl (35.1-43.9); Red Blood Count 4.03 M/mm3 (4.2-5.4); White Blood Count 6.2 K/mm3 (4.4-11.0)
[2023-05-01 06:46] LABS: Anion Gap 4 (5-15); BUN 6 mg/dL (7-18); BUN/Creat Ratio 8.8 RATIO (10-20); Calcium,Total 9.8 mg/dL (8.5-10.1); Chloride 106 mmol/L (98-107); Creatinine, Serum 0.68 mg/dL (0.55-1.02); EST Glomerular Filtration Rate 90 mL/min (>60); Est Glom Filt Rate - Afr Amer 109 mL/min (>60); Estimated Creatinine Clearance 33.19 ml/min; Glucose 85 mg/dL (74-106); Potassium 3.9 mmol/L (3.5-5.1); Sodium Level 140 mmol/L (136-145)
[2023-05-01] MEDS: Aspirin E.C. 81 MG Tablet PO (08:20)
[2023-05-01] MEDS: Calcium (Elemental) 500 MG Tablet PO ×2 (08:20→16:38)
[2023-05-01] MEDS: Potassium Chloride Oral Tablet 10 MEQ PO ×2 (08:20→16:38)
[2023-05-01 10:22] VITALS: BP 157/62; PULSE 77; RESP 16; TEMP 36.8; O2SAT 97
[2023-05-01] MEDS: Enoxaparin 40 MG/0.4 ML Syringe SC (10:30)
[2023-05-01] MEDS: Loratadine 10 MG Tablet PO (10:30)
[2023-05-01] MEDS: Lisinopril 40 MG Tablet PO (10:30)
[2023-05-01] MEDS: hydroCHLOROthiazide 12.5mg 12.5 MG PO (10:30)
--- NOTE | 2023-05-01 11:40 | DCINST_ITS ---
Discharge Instructions Diet Discharge Diet: Light diet - advance as tolerated Activity Discharge Activity: - (Return to normal activity as tolerated) Follow Up Care Test Results: Test results from this visit will be discussed in further detail at your follow- up appointment, if applicable. Discharge Plan Admission Admit Date/Time: 04/27/23 08:58 Primary Reason for Your Visit: Diarrhea, weakness, low blood pressure Attending Provider: Caitlin Cadena Primary Care Provider: Fabian Graham Consulting Providers: Parth Guan Instructions Patient Instructions: C diff, Vancomycin Oral Capsule 125 mg Additional Instructions / Restrictions: DISCHARGE INSTRUCTIONS PLEASE READ *Please take this with you to your next doctors appointment* -You will need to complete a taper of vancomycin. You have 6 more days of vancomycin 125 mg 4 times daily followed by 125 mg orally 2 times daily for 7 days, 125 mg orally once daily for 7 days and 125 mg every other day for 2 weeks. This has been sent to your preferred pharmacy [facility] file[facility] -You indicated that you would like to follow-up with Dr. Quigley with GI upon discharge due to your intermittent GI problems and food sensitivities. Please call his office to schedule your establish care appointment (ph. [phone]) -Please call your primary care provider's office upon discharge to schedule a hospital follow up within 1 week. -For any concerning signs or symptoms please call 911 or proceed to the nearest emergency department Discharge Orders/Prescriptions Prescriptions: New vancomycin 125 mg capsule See Rx Instructions .ROUTE .COMPLEX Qty: 52 0RF Taper: Prednisone Taper 125 mg EVERY 6 HOURS for 4 Days and 0 Hour 125 mg TWICE A DAY for 7 Days and 0 Hour 125 mg DAILY for 3 Days and 0 Hour 125 mg EVERY OTHER DAY for 14 Days and 0 Hour Rx Instructions: 125 mg every 6 hours for 4 Days; 125 mg twice a day for 7 Days; 125 mg daily for 7 Days; 125 mg every other day for 14 Days Continued potassium chloride 20 mEq tablet extended release 8 meq PO BID hydrochlorothiazide 12.5 mg capsule 12.5 mg PO QDAY calcium carbonate 600 mg calcium (1,500 mg) tablet 600 mg PO BID alendronate 70 mg tablet 70 mg PO QWEEK Patient Comments: takes on sunday acyclovir 800 mg tablet 800 mg PO DAILY lisinopril 40 mg tablet 40 mg PO DAILY multivitamin 1 EACH tablet 1 ea PO DAILY Patient Comments: supplement aspirin [Ecotrin Low Strength] 81 mg tablet,delayed release (DR/EC) 81 mg PO DAILY loratadine [Claritin] 10 mg tablet 10 mg PO DAILY Held gymnema leaf (bulk) 1 GM powder 1 g MC DAILY Hold Instructions: Resume on 05/16/23. Discontinued [id number]-[id number] 750-625-30 mg tablet 1 tab PO BID Hold Instructions: Pt is ill Rx Instructions: give after food/meal hydrocodone-acetaminophen [hydrocodone-acetaminophen] 5-325 mg tablet 1 tab PO Q6H PRN PRN (Reason: Pain) 3 Days Qty: 10 0RF Hold Instructions: haven,t needed ondansetron [ondansetron] 4 mg tablet,disintegrating 4 mg PO Q8H PRN PRN (Reason: Nausea) Qty: 10 0RF Hold Instructions: doesn't need anymore amoxicillin-pot clavulanate [amoxicillin-pot clavulanate] 875-125 mg tablet 875 mg PO Q12H Qty: 20 0RF Referrals / Follow Up: Fabian Graham MD [Primary Care Provider] - Within 1 Week Aleksandar Quigley DO [Med Staff - Active Staff] - See Referral Note ( -You will need to follow-up with Dr. Quigley with GI in his office upon discharge. Please call his office to schedule an establish care appointment (ph. [phone])) Disposition Disposition (needs filled in before D/C Order can be placed): Home, Self Care
--- NOTE | 2023-05-01 11:50 | DS.PCM_ITS ---
Providers Date of Admission: 04/27/23 Date of Discharge: 05/01/23 Primary Care Physician: Dr. Fabian Graham MD Reason For Visit: HYPOTENSION, COLITIS Diagnosis Discharge Diagnosis (1) Clostridium difficile diarrhea: Status: Acute Code(s): A04.72 - Enterocolitis due to Clostridium difficile, not specified as recurrent (2) EVELYN (acute kidney injury): Status: Acute Code(s): N17.9 - Acute kidney failure, unspecified (3) Hypotension: Status: Acute Code(s): I95.9 - Hypotension, unspecified Qualifiers: Hypotension type: hypotension due to hypovolemia Qualified Code(s): I95.89 - Other hypotension; E86.1 - Hypovolemia Plan #Diarrhea secondary to C. difficile infection #Hypotension secondary to hypovolemia in addition to home blood pressure medications?resolved #Leukocytosis-secondary to C. difficile infection -Resolved #Acute kidney injury, prerenal, secondary to dehydration -Resolved #History of hypertension Medications at Discharge Home Medications multivitamin 1 ea PO DAILY supplement 10/11/15 hydrochlorothiazide 12.5 mg capsule 12.5 mg PO QDAY blood pressure 02/14/18 potassium chloride 20 mEq tablet,extended release 8 meq PO BID supplement 02/14/18 gymnema leaf (bulk) 100 % powder 1 g miscellaneous DAILY blood sugar 11/22/20 calcium carbonate 600 mg calcium (1,500 mg) tablet 600 mg PO BID supplement 03/15/23 acyclovir 800 mg tablet 800 mg PO DAILY FEVER BLISTER 04/18/23 alendronate 70 mg tablet 70 mg PO QWEEK bones 04/18/23 lisinopril 40 mg tablet 40 mg PO DAILY blood pressure 04/18/23 aspirin 81 mg tablet,delayed release (Ecotrin Low Strength) 81 mg PO DAILY blood thinner 04/27/23 loratadine 10 mg tablet (Claritin) 10 mg PO DAILY allergies 04/27/23 vancomycin 125 mg capsule See Rx Instructions .Route .COMPLEX #52 caps 05/01/23 Hospital Course Summary of Care Provided Minutes Spent on Discharge: 42 Hospital Course: 72-year-old female with history of C. difficile in 2005, anxiety, hypertension, food sensitivities presented to [facility] 04/27/2023 with generalized weakness. She had started having diarrhea and abdominal pain on 04/19 and was diagnosed with acute diverticulitis and discharged home on oral Augmentin from the ED. She is on a clear liquid diet and began to have increasi ng bowel movements and presented to the hospital and was found to have a systolic blood pressure in the 60s and was hypotensive which resolved with holding blood pressure medicines and resuscitating with IV fluids. CT abdomen and pelvis on presentation demonstrated mild thickening wall of sigmoid colon and few diverticula which were not inflamed. She was also found of leukocytosis. Given her history there is high concern for C. difficile and she was started on vancomycin, stool studies did reveal C. difficile. She inquired about an inpatient GI consult due to her various GI complaints over her life and her food sensitivities, after discussing she is agreeable to information to follow-up outpatient. She slowly had improvement in number of bowel movements and consistency and advancing diet. On day of discharge she reports she feels better than she had been though still little diffusely weak but is comfortable with going home. Discharge instructions as follows: -You will need to complete a taper of vancomycin. You have 6 more days of vancomycin 125 mg 4 times daily followed by 125 mg orally 2 times daily for 7 days, 125 mg orally once daily for 7 days and 125 mg every other day for 2 weeks. This has been sent to [facility] -You indicated that you would like to follow-up with Dr. Quigley with GI upon discharge due to your intermittent GI problems and food sensitivities. Please call his office to schedule your establish care appointment (ph. [phone]) -Please call your primary care provider's office upon discharge to schedule a hospital follow up within 1 week. -For any concerning signs or symptoms please call 911 or proceed to the nearest emergency department Physical Exam Narrative General: Alert, oriented, no apparent distress HEENT: Atraumatic, normocephalic Eyes: extraocular movements grossly intact Neck: Supple Respiratory: normal respiratory effort Cardiovascular: no edema appreciated GI: nondistended Extremities: Moving all extremities Neuro: No overt focal neurological deficits Psych: Cooperative Medical Records Data Medical Nutrition Assessment Dietitian: Malnutrition Criteria Met Start: 04/30/23 15:02 Freq: Status: Active Protocol: Document 04/30/23 15:02 NANDA (Rec: 04/30/23 15:02 [facility] [id number]) Nutrition Malnutrition Evidence of Malnutrition Exists Yes Malnutrition (severe): Acute Illness/Injury Evidenced By Suboptimal Energy Intake ( Severe),Weight Loss (Severe) Intake Problem Inadequate Oral Intake Status Inactive Problem Clinical Problem Acute Disease or Injury Related Malnutrition Etiology related to issues w/ diarrhea from taking ATB Signs/Symptoms as evidenced by clear liquid x 3 days, now advanced to full liquids and 6.5% wt loss x < 1 wk Status Active Problem Recommendation Dietitian Recommendations/Changes Will order 8 oz ensure clear tid w/ meals for increased nutrition if consumed As medically able, rec TREY to Transitional w/ goal of Regular low fiber diet Provide diet education prior to d/c as warranted by pt Weight / BMI Weight Weight: 42.6 kg Body Mass Index (BMI) 18.4 ABG / Lab / Microbiology Data 05/01/23 05:40 05/01/23 05:40 Laboratory: Laboratory Results - last 24 hr 05/01/23 05:40: WBC 6.2, RBC 4.03 L, Hgb 12.4, Hct 36.5 L, MCV 90.6, MCH 30.8, MCHC 34.0, RDW Std Deviation 44.3 H, RDW Coeff of Pat 13.2, Plt Count 306, MPV 10.8, Immature Gran % (Auto) 0.500, Neut % (Auto) 48.4, Lymph % (Auto) 37.1, Patrick % (Auto) 7.6, Eos % (Auto) 5.9 H, Baso % (Auto) 0.5, Absolute Neuts (auto) 3.0, Absolute Lymphs (auto) 2.31, Nucleated RBC % 0, Sodium 140, Potassium 3.9, Chloride 106, Carbon Dioxide 30.0, Anion Gap 4 L, BUN 6 L, Creatinine 0.68, Estim Creat Clear Calc 33.19, Est GFR (MDRD) Af Amer 109, Est GFR (MDRD) Non-Af 90, BUN/Creatinine Ratio 8.8 L, Glucose 85, Calcium 9.8 Microbiology: Microbiology 04/28/23 07:15 Stool Stool Lactoferrin - Final 04/28/23 07:15 Stool Enteric Bacteriology - Final 04/28/23 07:15 Stool C. difficile GDH Antigen & Toxins - Final Toxigenic C. difficile 04/28/23 07:15 Stool C. difficile DNA Amplification - Final D/C Instructions Discharge Diet: Light diet - advance as tolerated Meaningful Use Info Meaningful Use Diagnoses (Choose all that apply): None applicable Discharge Plan Admission Admit Date/Time: 04/27/23 08:58 Primary Reason for Your Visit: Diarrhea, weakness, low blood pressure Attending Provider: Caitlin Cadena Primary Care Provider: Fabian Graham Consulting Providers: Parth Guan Instructions Patient Instructions: C diff, Vancomycin Oral Capsule 125 mg Additional Instructions / Restrictions: DISCHARGE INSTRUCTIONS PLEASE READ *Please take this with you to your next doctors appointment* -You will need to complete a taper of vancomycin. You have 6 more days of vancomycin 125 mg 4 times daily followed by 125 mg orally 2 times daily for 7 days, 125 mg orally once daily for 7 days and 125 mg every other day for 2 weeks. This has been sent to [facility] pharmacy [facility] -You indicated that you would like to follow-up with Dr. Quigley with GI upon discharge due to your intermittent GI problems and food sensitivities. Please call his office to schedule your establish care appointment (ph. [phone]) -Please call your primary care provider's office upon discharge to schedule a hospital follow up within 1 week. -For any concerning signs or symptoms please call 911 or proceed to the nearest emergency department Discharge Orders/Prescriptions Prescriptions: New vancomycin 125 mg capsule See Rx Instructions .ROUTE .COMPLEX Qty: 52 0RF Taper: Prednisone Taper 125 mg EVERY 6 HOURS for 4 Days and 0 Hour 125 mg TWICE A DAY for 7 Days and 0 Hour 125 mg DAILY for 3 Days and 0 Hour 125 mg EVERY OTHER DAY for 14 Days and 0 Hour Rx Instructions: 125 mg every 6 hours for 4 Days; 125 mg twice a day for 7 Days; 125 mg daily for 7 Days; 125 mg every other day for 14 Days Continued potassium chloride 20 mEq tablet extended release 8 meq PO BID hydrochlorothiazide 12.5 mg capsule 12.5 mg PO QDAY calcium carbonate 600 mg calcium (1,500 mg) tablet 600 mg PO BID alendronate 70 mg tablet 70 mg PO QWEEK Patient Comments: takes on sunday acyclovir 800 mg tablet 800 mg PO DAILY lisinopril 40 mg tablet 40 mg PO DAILY multivitamin 1 EACH tablet 1 ea PO DAILY Patient Comments: supplement aspirin [Ecotrin Low Strength] 81 mg tablet,delayed release (DR/EC) 81 mg PO DAILY loratadine [Claritin] 10 mg tablet 10 mg PO DAILY Held gymnema leaf (bulk) 1 GM powder 1 g MC DAILY Hold Instructions: Resume on 05/16/23. Discontinued [id number]-[id number] 750-625-30 mg tablet 1 tab PO BID Hold Instructions: Pt is ill Rx Instructions: give after food/meal hydrocodone-acetaminophen [hydrocodone-acetaminophen] 5-325 mg tablet 1 tab PO Q6H PRN PRN (Reason: Pain) 3 Days Qty: 10 0RF Hold Instructions: haven,t needed ondansetron [ondansetron] 4 mg tablet,disintegrating 4 mg PO Q8H PRN PRN (Reason: Nausea) Qty: 10 0RF Hold Instructions: doesn't need anymore amoxicillin-pot clavulanate [amoxicillin-pot clavulanate] 875-125 mg tablet 875 mg PO Q12H Qty: 20 0RF Referrals / Follow Up: Fabian Graham MD [Primary Care Provider] - Within 1 Week Aleksandar Quigley DO [Med Staff - Active Staff] - See Referral Note ( -You will need to follow-up with Dr. Quigley with GI in his office upon discharge. Please call his office to schedule an establish care appointment (ph. [phone])) Disposition Disposition (needs filled in before D/C Order can be placed): Home, Self Care Charges/Coding Visit Charges Inpatient E&M: 43492 Disch Hosp >30min
--- NOTE | 2023-05-01 12:42 | PHA.DC_ITS ---
Pharmacy [facility] has performed discharge medication reconciliation and counseling for this patient. Patient counseled via telephone due to contact precautions. 1. VANCOMYCIN 125MG CAPSULE TAPER: 125MG PO Q6 X 4 DAYS, 125MG PO BID X 7 DAYS, 125MG PO DAILY X 7 DAYS, THEN 125MG PO EVERY OTHER DAY X 14 DAYS The patient's discharge medication list was reviewed for discrepancies and discrepancies were resolved. The patient was counseled on the following discharge medications and changes in medications for homegoing were reviewed. The Reason for Use, instructions for use, and potential side effects were reviewed for all new medications. The patient's questions regarding all of their medications were answered. The patient was able to verbally demonstrate an understanding of their discharge medications. Medications at Discharge Home Medications multivitamin 1 ea PO DAILY supplement 10/11/15 hydrochlorothiazide 12.5 mg capsule 12.5 mg PO QDAY blood pressure 02/14/18 potassium chloride 20 mEq tablet,extended release 8 meq PO BID supplement 02/14/18 gymnema leaf (bulk) 100 % powder 1 g miscellaneous DAILY blood sugar 11/22/20 calcium carbonate 600 mg calcium (1,500 mg) tablet 600 mg PO BID supplement 03/15/23 acyclovir 800 mg tablet 800 mg PO DAILY FEVER BLISTER 04/18/23 alendronate 70 mg tablet 70 mg PO QWEEK bones 04/18/23 lisinopril 40 mg tablet 40 mg PO DAILY blood pressure 04/18/23 aspirin 81 mg tablet,delayed release (Ecotrin Low Strength) 81 mg PO DAILY blood thinner 04/27/23 loratadine 10 mg tablet (Claritin) 10 mg PO DAILY allergies 04/27/23 vancomycin 125 mg capsule See Rx Instructions .Route .COMPLEX #52 caps 05/01/23
--- NOTE | 2023-05-01 13:07 | CHAPLAIN ---
Type of Pastoral Visit _x__ Initial Visit ___ Follow-up Visit ___ On-call Visit ___ General Patient Visit ___ Spiritual Assessment ___ Family Conference ___ Bereavement ___ Rapid Response ___ Code Blue ___ Other (describe below) Pastoral Care Referral From _x__ Patient ___ Family ___ Nurse ___ Physician ___ Refueling Ramp Supervisor ___ [employer] Set Up Technician ___ Other (describe below) Sacrament/Intervention _x__ Active listening ___ Anointing ___ Confucianism ___ Bereavement ___ Communion _x__ Beatris exploration ___ _x__ Life review _x__ Prayer ___ Reconciliation ___ Sacrament of Sick _x__ Supportive presence ___ Wedding ___ Other (describe below) Pastoral Comments patient gives long explanation of her health, life situation, work decisions, family, and beatris perspectives; pt is planning to go home today; pt given prayer support and opportunity to express herself; pt has concern for spiritual life of family
== END 2023-05-01 17:22 | disposition home or self-care (01) | DRG 371 ==
LOC: ED 09:02 → MS3 09:11
PROVIDERS: Emergency Medicine; Admitting Provider Internal Medicine; Emergency Provider Emergency Medicine; PCP Family Medicine; Visit Provider Internal Medicine
DX: A04.72 Enterocolitis due to Clostridium difficile, not specified as recurrent (principal); E43 Unspecified severe protein-calorie malnutrition; N17.9 Acute kidney failure, unspecified; E87.1 Hypo-osmolality and hyponatremia; Z68.1 Body mass index [BMI] 19.9 or less, adult; I95.89 Other hypotension; E86.0 Dehydration; E86.1 Hypovolemia; I10 Essential (primary) hypertension; K57.30 Diverticulosis of large intestine without perforation or abscess without bleeding; M81.0 Age-related osteoporosis without current pathological fracture; Z79.82 Long term (current) use of aspirin; Z79.899 Other long term (current) drug therapy
CPT/HCPCS: 36415; 74177; 80048; 80076; 83630; 83690; 83735; 84100; 84484; 85025; 87177; 87209; 87493; 87506; 93005; 94668; 99285; J7030; Q9967; A4216

== ENCOUNTER → 2023-08-07 | Outpatient (CLI) | payer MEDICARE, OTHER, SELFPAY ==
--- NOTE | 2023-08-07 13:47 | CT_ITS ---
STUDY: CT CHEST WITHOUT CONTRAST REASON FOR EXAM: Female, 72 years old. CP OVER READ ONLY RADIATION DOSAGE (If Supplied By Facility): CTDIvol = ( 12.19 ) mGy, DLP = ( 243.79 ) mGycm TECHNIQUE: Transaxial imaging was performed without the administration of intravenous contrast material. Individualized dose optimization techniques were used for this CT. COMPARISON: No relevant priors. FINDINGS: CHEST Findings suggestive for emphysematous changes. Focal linear scarring in the posterior aspect of the right middle lobe. There is no demonstrated pleural abnormality. There are calcifications of the coronary arteries. Calcification of the mitral valve annulus. Mild pericardial effusion along the posterior dependent portion of the pericardium. There are small lymph nodes within the mediastinum, which are normal in size and morphology most compatible with reactive lymph hyperplasia. Normal hilar regions. Normal unenhanced pulmonary arteries. There is atherosclerotic calcification of the aortic arch. There are degenerative changes of the thoracic spine. There is no demonstrated abnormality of the visualized upper abdomen. CT/Limited Chest CT Cardiac Only IMPRESSION: Coronary artery calcification. Consistent this changes with scarring in the posterior aspect of the right middle lobe. Electronically Signed: Chris eMjia MD at 15:33 EDT ,
--- NOTE | 2023-08-07 16:38 | CA.SCORE ---
Calcium Scoring Date of Study:: 08/07/23 Coronary Calcium Scoring: High-resolution Computed Tomographic imaging of the chest was performed on [08/07/23 ], with particular attention paid to the coronary arteries. Images from the examination were analyzed for the presence and extent of coronary artery calcification , using coronary calcium quantification software. The patient tolerated the procedure well and there were no complications. The results of the coronary calcification analysis are provided below. Findings Coronary Artery Left Main (LM): 0 Left Anterior Descending (LAD): 0 Left Circumflex (LCX): 0 Right Coronary Artery (RCA): 4.4 Total Agatston Score: 4.4 Percentile Rankin-50% Calcium Scoring Interpretation: Different methods to categorize the overall amount of coronary plaque. Overall amount CAC SIS Visual of coronary plaque P1 Mild -100 <2 1-2 vessels with mild amount of plaque P2 Moderate 101-300 3-4 1-2 vessels with moderate amount, 3 vessels with mild amount of plaque P3 Severe 301-999 5-7 3 vessels with moderate amount, 1 vessel with severe amount of plaque P4 Extensive >1000 >8 2-3 vessels with severe amount of plaque Calcium Score: Mild: 1-2 vessels w/mild amount of plaque Conclusion: Minimal to mild atherosclerotic plaquing noted.
== END | disposition home or self-care (01) ==
PROVIDERS: PCP Family Medicine; Referring Provider Internal Medicine Cardiovascular Disease; Visit Provider Internal Medicine Cardiovascular Disease
DX: I25.10 Atherosclerotic heart disease of native coronary artery without angina pectoris (principal); R07.89 Other chest pain
CPT/HCPCS: 75571; 76380

== ENCOUNTER 2023-11-26 23:43 | Emergency (ER) | payer MEDICARE, OTHER, SELFPAY ==
[2023-11-26 23:46] VITALS: BP 133/75; PULSE 96; RESP 18; TEMP 36.3; O2SAT 100
--- NOTE | 2023-11-26 23:57 | EDS_ITS ---
HPI HPI - GI History of Present Illness Chief Complaint: Nausea/Vomiting/Diarrhea Informant: patient, family and EMS Nausea/Vomiting/Emesis GI Symptom: Positive for Nausea and Vomiting Onset: Hours (1-2) Quality: Positive for Nonbilious; Negative for Blood streaks, Coffee ground or Hematemesis Severity: Severe Diarrhea/Melena/Hematochezia GI Symptom: Positive for Diarrhea; Negative for Melena or Hematochezia Onset: Hours (1-2) Severity: Moderate Associated Symptoms Associated Symptoms: Negative for Dysuria, Frequency or Hematuria Narrative Narrative: 73-year-old female called 911 after about an hour of intense vomiting or diarrhea. No blood. She felt she was going to pass out which is what made her call her daughter and then called 911. She did not lose consciousness. She denies any abdominal pain or fevers that she knows of. She states her stomach did not feel great earlier, also for dinner she just had a piece of toast. No travel out of the area recently. No known sick contacts with similar symptoms. She has history of C. difficile, she is not sure if the diarrhea smells similar this time. She last was on antibiotics within the past month for an ear infection, cefdinir. [facility] Medical History EVELYN (acute kidney injury) Aortic insufficiency Chronic back pain Dehydration Diarrhea Diverticulitis Elevated plasma metanephrines Essential hypertension Fatigue LALO (generalized anxiety disorder) Gastroenteritis Hemorrhoid History of Clostridium difficile colitis Hypotension Insomnia Nausea Near syncope Osteoarthritis Osteoporosis Sleep apnea Syncope Weight loss Home Medications multivitamin 1 ea PO DAILY supplement 10/11/15 [History Last Taken 04/21/23] hydrochlorothiazide 12.5 mg capsule 12.5 mg PO QDAY blood pressure 02/14/18 [History Last Taken 04/26/23] gymnema leaf (bulk) 100 % powder 1 g miscellaneous BID blood sugar 11/22/20 [History Last Taken 04/27/23] calcium carbonate 600 mg calcium (1,500 mg) tablet 600 mg PO BID supplement 03/15/23 [History Last Taken 04/21/23] alendronate 70 mg tablet 70 mg PO QWEEK bones 04/18/23 [History Last Taken 04/16/23] lisinopril 40 mg tablet 40 mg PO DAILY blood pressure 04/18/23 [History Last Taken 04/26/23] loratadine 10 mg tablet (Claritin) 10 mg PO DAILY allergies 04/27/23 [History Last Taken 04/26/23] acyclovir 800 mg tablet 800 mg PO DAILY PRN FEVER BLISTER 07/11/23 [History Last Taken Unknown] aspirin 81 mg chewable tablet 1 tab PO DAILY 11/27/23 [History Last Taken Unknown] cholecalciferol (vitamin D3) 10 mcg (400 unit) capsule (Vitamin D3) 10 mcg PO BID 11/27/23 [History Last Taken Unknown] fluticasone propionate 50 mcg/actuation nasal spray,suspension 2 spray intranasal BID 11/27/23 [History Last Taken Unknown] ondansetron 4 mg disintegrating tablet 8 mg (2 x 4 mg) PO Q8H PRN PRN Nausea #20 tabs 11/27/23 [Rx Last Taken Unknown] potassium chloride 8 mEq capsule,extended release 8 meq PO 11/27/23 [History Last Taken Unknown] Allergy/AdvReac Type Severity Reaction Status Date / Time ragweed pollen Allergy Intermediate Shortness Verified 11/26/23 23:46 of breath Sulfa (Sulfonamide Allergy Intermediate Hives Verified 11/26/23 23:46 Antibiotics) azithromycin AdvReac Nausea Verified 11/26/23 23:46 [From Zithromax Z-Bruce] Family History Mother Hypertension Father Heart disease Cancer skin cancer Grandmother Heart disease CVA (cerebral vascular accident) Surgical History History of colonoscopy History of tonsillectomy Social History Smoking Status: Never smoker alcohol intake: never substance use type: does not use ROS ROS ED Constitutional Constitutional ED: Reports fatigue; Denies chills or fever(s) Eyes Eyes: Denies change in vision or diplopia ENT ENT ED: Denies rhinorrhea or sore throat Cardiovascular Cardiovascular: Reports lightheadedness; Denies chest pain, palpitations or syncope Respiratory/Chest Respiratory/Chest: Denies cough or dyspnea Gastrointestinal Gastrointestinal: Reports diarrhea, nausea and vomiting; Denies abdominal pain or melena Genitourinary Genitourinary ED: Denies dysuria or hematuria Musculoskeletal Musculoskeletal: Denies back pain or neck pain Integumentary Denies abscess or rash Neurologic Neurologic: Denies headache(s), paresthesias or weakness Psychiatric Psychiatric: Denies suicidal thoughts EXAM Physical Exam Const Vital Signs: 11/26/23 23:46 11/27/23 00:32 Temperature 97.3 F L Temperature Source Temporal Pulse Rate 96 Respiratory Rate 18 16 Blood Pressure 133/75 H Blood Pressure Mean 94 Pulse Ox 100 Oxygen Delivery Method Room Air Positive well nourished and well developed General Appearance ED: well developed and NAD HEENT Reports moist mucous membranes normocephalic and atraumatic Eyes PERRL and EOMs intact bilaterally Neck full ROM and supple Resp normal respiratory effort and clear to auscultation bilaterally Cardio regular rate, regular rhythm and no murmurs Rate: Negative for tachycardic GI non-tender and non-distended Auscultation: normoactive bowel sounds Palpation: soft Back/Spine no CVA tenderness General Back: other FROM Extremity normal to inspection General Extremety ED: Negative for edema, pulses abnormal or tenderness General Extremity: Negative for edema or pulses abnormal Neuro oriented x3, CN's II-XII intact bilaterally and no sensory deficits noted Sensorium / Orientation: awake and alert Motor Exam: strength 5/5 throughout Psych thought process normal Mood & Affect: anxious Skin no rashes or lesions noted and no wounds MDM MDM MDM Narrative Medical decision making narrative: Patient was given IV fluids in addition to Zofran which did help her nausea, and she did feel little better. She had some diarrhea in the emergency department and we were able to get it to the lab, it was positive for white blood cell smear, negative for C. difficile, which was able to be finished during her stay. An enteric bacterial panel is sent and pending and will be run next shift. Her labs are noted. She does have some mild prerenal azotemia which we hopefully helped with all of the fluid she got here, and mild hypokalemia. Also leukocytosis. Given all this, bacterial etiologies are possible, as are viral etiologies that cause invasive/secretory diarrhea. Given her history of C. difficile and a negative test right now I do not recommend empiric treatment with antibiotics. At this time I recommend supportive care until the enteric bacterial panel returns, and at that time further decisions can be made. In the meantime I would avoid antidiarrheals, which she took prior to arrival. She takes probiotic and eat yogurt almost daily so I would recommend continuing that. After all these tests and fluids we got her up and she was not orthostatic and felt okay to go home. Lab Data Attestation: I reviewed the patient's lab results. Labs: Laboratory Results - last 24 hr 11/27/23 00:10 WBC 15.1 H RBC 4.43 Hgb 13.3 Hct 40.7 MCV 91.9 MCH 30.0 MCHC 32.7 RDW Std Deviation 47.4 H RDW Coeff of Pat 13.9 Plt Count 299 MPV 9.7 Immature Gran % (Auto) 0.900 Neut % (Auto) 78.5 H Lymph % (Auto) 12.7 L [place] % (Auto) 6.9 Eos % (Auto) 0.8 Baso % (Auto) 0.2 Absolute Neuts (auto) 11.8 H Absolute Lymphs (auto) 1.91 Nucleated RBC % 0 Sodium 143 Potassium 3.2 L Chloride 106 Carbon Dioxide 30.0 Anion Gap 7 BUN 29 H Creatinine 1.12 H Est GFR (MDRD) Af Amer 61 Est GFR (MDRD) Non-Af 50 L BUN/Creatinine Ratio 25.9 H Glucose 151 H Calcium 11.2 H Total Bilirubin 0.40 AST 20 ALT 17 Alkaline Phosphatase 92 Total Protein 8.2 Albumin 4.1 Globulin 4.1 Albumin/Globulin Ratio 1.0 Discharge Plan Triage Chief Complaint: Nausea/Vomiting/Diarrhea ED Provider: Christian Trejo Dx/Rx/DC Orders Clinical Impression: Acute infective gastroenteritis, Hypokalemia due to excessive gastrointestinal loss of potassium, Mild dehydration Instructions: ED Vomit Diarrhea Nonspec Adult Prescriptions: New ondansetron [ondansetron] 4 mg tablet,disintegrating 8 mg PO Q8H PRN PRN (Reason: Nausea) Qty: 20 0RF No Action hydrochlorothiazide 12.5 mg capsule 12.5 mg PO QDAY calcium carbonate 600 mg calcium (1,500 mg) tablet 600 mg PO BID alendronate 70 mg tablet 70 mg PO QWEEK Patient Comments: takes on sunday lisinopril 40 mg tablet 40 mg PO DAILY acyclovir 800 mg tablet 800 mg PO DAILY PRN (Reason: FEVER BLISTER) multivitamin 1 EACH tablet 1 ea PO DAILY Patient Comments: supplement gymnema leaf (bulk) 1 GM powder 1 g MC BID Hold Instructions: Resume on 05/16/23. loratadine [Claritin] 10 mg tablet 10 mg PO DAILY potassium chloride 8 mEq capsule, extended release 8 meq PO Patient Comments: Take 1 capsules by mouth two times a day. aspirin 81 mg tablet,chewable 1 tab PO DAILY fluticasone propionate 50 mcg/actuation spray,suspension 2 spray INTRANASAL BID Patient Comments: USE 2 SPRAYS IN EACH NOSTRIL ONCE DAILY. RINSE MOUTH AFTER USE. cholecalciferol (vitamin D3) [Vitamin D3] 10 mcg (400 unit) capsule 10 mcg PO BID Primary Care Provider: Fabian Graham Referrals: Fabian Graham MD [Primary Care Provider] - As soon as possible Activity Restrictions/Additional Instructions: - Use the nausea medicine as needed and do your best to stay hydrated is much as possible. Consider Gatorade or Powerade, since you may not feel like eating foods, and they have electrolytes and some sugar/calories (if you get the right kind). - Avoid antidiarrheals until you talk to your doctor about the results of the enteric bacterial PCR panel which should be performed sometime today 11/27. - Okay to continue probiotics/yogurt as tolerated/able. - Your potassium was a little low but we are not replacing it because it is a pill that tends to make people vomit more, which you already were doing. It is not significantly low. If you are drinking Gatorade/Powerade, you will help to replace some of it. Disposition Disposition: Home, Self Care
--- OUTSIDE RECORDS SUMMARY | 2023-11-27 00:15 | XMS RPT_ITS | CCD ---
Author Name Unknown Address [address] [place] [address] Organization [facility] Care Team Providers Care Grain Packer Name Role Phone Fabian Mcmullen MD Primary Care Provider KATIE GARCIA Attending Unavailable BENEDICT, FABIAN A Primary Care Unavailable KATIE GARCIA Attending Unavailable BENEDICT, FABIAN A Primary Care Unavailable BENEDICT, FABIAN A Primary Care Unavailable BENEDICT, FABIAN A Attending Unavailable BENEDICT, FABIAN A Primary Care Unavailable MOLLY LOPEZ Attending Unavailable BENEDICT, FABIAN A Primary Care Unavailable BENEDICT, FABIAN A Referring Unavailable CONSTANCE KLEIN Attending Unavailable BENEDICT, FABIAN A Primary Care Unavailable BENEDICT, FABIAN A Primary Care Unavailable BENEDICT, FABIAN A Referring Unavailable BENEDICT, FABIAN A Attending Unavailable BENEDICT, FABIAN A Primary Care Unavailable BENEDICT, FABIAN A Primary Care Unavailable NAHUN GOLDMAN Referring Unavailable BENEDICT, FABIAN A Primary Care Unavailable BENEDICT, FABIAN A Attending Unavailable CONSTANCE KLEIN Referring Unavailable CONSTANCE KLEIN Attending Unavailable BENEDICT, FABIAN A Primary Care Unavailable BENEDICT, FABIAN A Primary Care Unavailable BENEDICT, FABIAN A Attending Unavailable CONSTANCE KLEIN Attending Unavailable BENEDICT, FABIAN A Primary Care Unavailable CONSTANCE KLEIN Referring Unavailable BENEDICT, FABIAN A Primary Care Unavailable KATIE GARCIA Attending Unavailable BENEDICT, FABIAN A Primary Care Unavailable BENEDICT, FABIAN A Primary Care Unavailable BENEDICT, FABIAN A Referring Unavailable BENEDICT, FABIAN A Primary Care Unavailable BENEDICT, FABIAN A Primary Care Unavailable BENEDICT, FABIAN A Attending Unavailable BENEDICT, FABIAN A Primary Care Unavailable Allergies Allergy Classification Reported Allergen(s) Allergy Type Date of Onset Reaction(s) Facility (20 sources) Amoxicillin / Clavulanate; Translations: [AMOXICILLIN-POT CLAVULANATE] Drug Allergy 7 Intolerance [facility] Work Phone: (20 sources) Cat; Translations: [CATS] Propensity to adverse reactions 0 Intolerance [facility] Work Phone: (20 sources) Echinacea Preparation; Translations: [ECHINACEA] Drug Allergy 6 Swelling [facility] Work Phone: (20 sources) Pollen; Translations: [POLLEN] Propensity to adverse reactions 0 Intolerance [facility] Work Phone: (20 sources) Sulfonamides (Antibiotic); Translations: [SULFA (SULFONAMIDE ANTIBIOTICS)] Drug Allergy 7 Rash [facility] (20 sources) Ragweed; Translations: [RAGWEED] Propensity to adverse reactions 0 Intolerance [facility] Work Phone: Medications Current Medications Medication Drug Class(es) Dates Sig (Normalized) Sig (Original) doxycycline hyclate 100 mg oral tablet (3 sources) Tetracycline-clas s Drug Start: 08-03-2023 End: 08-10-2023 take 1 tablet by mouth twice daily doxycycline (VIBRA-TABS) 100 mg tablet Take 1 tablet by mouth two times a day for 7 days. 14 tablet 0 08/03/2023 08/10/2023 Active Completed/Discontinued Medications Medication Drug Class(es) Dates Sig (Normalized) Sig (Original) Acetaminophen / Chlorpheniramine (20 sources) Histamine-1 Receptor Antagonist End: 05-07-2023 acetaminophen/chlo rpheniramine (CORICIDIN HBP COLD AND FLU ORAL) Take by mouth. 0 05/07/2023 Discontinued Problems Active Problems Problem Classification Problem Date Documented Date Episodic/Chronic Anxiety disorders (20 sources) Generalized anxiety disorder; Translations: [Generalized anxiety disorder] Onset: 12-29-2020 12-29-2020 Chronic Chronic obstructive pulmonary disease and bronchiectasis (1 source) Bronchitis; Translations: [Bronchitis, not specified as acute or chronic] 08-03-2023 Episodic Diverticulosis and diverticulitis (19 sources) Diverticulitis; Translations: [Diverticulitis of intestine, part unspecified, without perforation or abscess without bleeding] Onset: 04-23-2023 04-23-2023 Chronic Essential hypertension (20 sources) Benign essential hypertension; Translations: [Essential (primary) hypertension] Onset: 06-13-2012 07-21-2017 Chronic Headache; including migraine (1 source) Headache; Translations: [Headache, unspecified headache type] Episodic Heart valve disorders (20 sources) Nonrheumatic aortic (valve) insufficiency; Translations: [Aortic valve disorders] Onset: 07-27-2022 Chronic Miscellaneous mental health disorders (4 sources) Primary insomnia; Translations: [Primary insomnia] Chronic Osteoporosis (20 sources) Senile osteoporosis; Translations: [Age-related osteoporosis without current pathological fracture] Onset: 11-30-2009 09-04-2022 Chronic Other circulatory disease (20 sources) 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; Translations: [Arterial fibromuscular dysplasia] Onset: 08-03-2022 Chronic Other circulatory disease (1 source) Arterial fibromuscular dysplasia; Translations: [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 dysplasia of both carotid arteries (HCC)] Onset: 04-20-2023 Chronic Other infections; including parasitic (2 sources) History of Clostridium difficile intestinal infection; Translations: [Personal history of other infectious and parasitic diseases] Onset: 11-20-2023 11-20-2023 Episodic Other lower respiratory disease (1 source) Cough; Translations: [Acute cough] Episodic Other nutritional; endocrine; and metabolic disorders (20 sources) Intolerance to lactose; Translations: [Lactose intolerance, unspecified] Onset: 11-29-2016 07-21-2017 Chronic Other upper respiratory disease (20 sources) Allergic rhinitis; Translations: [Allergic rhinitis, unspecified] Onset: 07-21-2017 07-21-2017 Chronic Other upper respiratory disease (1 source) Seasonal allergic rhinitis; Translations: [Other seasonal allergic rhinitis] Chronic Other upper respiratory disease (2 sources) Nasal sinus problem; Translations: [Other specified disorders of nose and nasal sinuses] Episodic Other upper respiratory disease (1 source) Nasal congestion; Translations: [Nasal congestion] 08-03-2023 Episodic Other upper respiratory infections (1 source) Bacterial sinusitis; Translations: [Chronic sinusitis, unspecified] Chronic Otitis media and related conditions (6 sources) Acute non-suppurative otitis media - serous; Translations: [Acute serous otitis media, right ear] Onset: 12-11-2022 Episodic Unclassified (1 source) Acute cough; Translations: [Acute cough] Onset: 08-03-2023 Past or Other Problems Problem Classification Problem Date Documented Da te Episodic/Chronic Acute and unspecified renal failure (1 source) Acute kidney failure, unspecified; Translations: [EVELYN (acute kidney injury) (HCC)] Onset: 05-07-2023 Episodic Administrative/social admission (20 sources) Advance directive discussed with patient; Translations: [Other specified counseling] Onset: 07-26-2022 Episodic Diabetes mellitus without complication (20 sources) High hemoglobin A1c level; Translations: [Other abnormal glucose] Onset: 05-14-2019 06-11-2019 Episodic Diseases of mouth; excluding dental (20 sources) Cheilitis; Translations: [Diseases of lips] Onset: 12-03-2011 07-21-2017 Episodic Immunizations and screening for infectious disease (5 sources) Exposure to streptococcal pharyngitis; Translations: [Contact with and (suspected) exposure to other bacterial communicable diseases] Onset: 12-11-2022 Episodic Intestinal infection (2 sources) Clostridium difficile colitis; Translations: [Enterocolitis due to Clostridium difficile, not specified as recurrent] Onset: 05-07-2023 05-14-2023 Episodic Mycoses (20 sources) Cheilitis caused by Carolina species; Translations: [Candidal cheilitis] Onset: 12-03-2011 07-21-2017 Episodic Other aftercare (20 sources) Patient encounter status; 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] Onset: 07-21-2017 07-06-2021 Episodic Other aftercare (1 source) Encounter for follow-up examination after completed treatment for conditions other than malignant neoplasm; Translations: [Hospital discharge follow-up] Onset: 05-07-2023 Episodic Other bone disease and musculoskeletal deformities (14 sources) Osteopenia; Translations: [Other specified disorders of bone density and structure, unspecified site] Onset: 11-30-2009 07-21-2017 Episodic Other circulatory disease (1 source) Hypotension, unspecified; Translations: [Hypotension, unspecified hypotension type] Onset: 05-07-2023 Episodic Other ear and sense organ disorders (3 sources) Otalgia, right ear; Translations: [Otalgia, unspecified] Onset: 12-11-2022 Episodic Other gastrointestinal disorders (6 sources) Loose stool; Translations: [Other fecal abnormalities] Onset: 07-10-2019 07-10-2019 Episodic Other inflammatory condition of skin (20 sources) Itching of skin; Translations: [Pruritus, unspecified] Onset: 12-03-2011 07-21-2017 Episodic Other inflammatory condition of skin (20 sources) Pruritus, unspecified; Translations: [Unspecified pruritic disorder] Onset: 12-03-2011 07-21-2017 Episodic Other nutritional; endocrine; and metabolic disorders (6 sources) Unintentional weight loss; Translations: [Abnormal weight loss] Onset: 07-10-2019 07-10-2019 Episodic Other screening for suspected conditions (not mental disorders or infectious disease) (20 sources) Catecholamine level - finding; Translations: [Other specified abnormal findings of blood chemistry] Onset: 07-21-2017 05-08-2018 Episodic Other upper respiratory disease (1 source) Other specified disorders of nose and nasal sinuses; Translations: [Sinus pressure] Onset: 12-11-2022 Episodic Other upper respiratory infections (4 sources) Sore throat symptom; Translations: [Acute pharyngitis, unspecified] Onset: 12-11-2022 Episodic Residual codes; unclassified (20 sources) Insomnia; Translations: [Insomnia, unspecified] Onset: 11-29-2016 07-21-2017 Episodic Residual codes; unclassified (1 source) Insomnia, unspecified; Translations: [Insomnia, unspecified type] Onset: 07-21-2017 Episodic Spondylosis; intervertebral disc disorders; other back problems (20 sources) Thoracic and lumbosacral neuritis; Translations: [Thoracic or lumbosacral neuritis or radiculitis, unspecified] Onset: 12-22-2008 07-21-2017 Episodic Viral infection (20 sources) Recurrent herpes simplex labialis; Translations: [Herpesviral vesicular dermatitis] Onset: 11-30-2009 07-21-2017 Episodic Results Test Name Value Interpretation Reference Range Facil ity Vital Signs Date Time Vital Sign Value Performing Clinician Paxton [email or web address] 11-16-2023 10:22-0500 Body temperature 97.7 [degF] Fabian Mcmullen MD Work Phone: [facility] 11-16-2023 10:22-0500 Body weight 44 kg Fabian Mcmullen MD Work Phone: [facility] 11-16-2023 10:22-0500 Diastolic blood pressure 74 mm[Hg] Fabian Mcmullen MD Work Phone: [facility] 11-16-2023 10:22-0500 Heart rate 76 /min Fabian Mcmullen MD Work Phone: [facility] 11-16-2023 10:22-0500 Respiratory rate 16 /min Fabian Mcmullen MD Work Phone: [facility] 11-16-2023 10:22-0500 Systolic blood pressure 148 mm[Hg] Fabian Mcmullen MD Work Phone: [facility] 08-08-2023 17:00-0400 Body height 151.1 cm Fabian Mcmullen MD Work Phone: [facility] 08-08-2023 17:00-0400 Body weight 42.64 kg Fabian Mcmullen MD Work Phone: [facility] 08-08-2023 17:00-0400 Diastolic blood pressure 68 mm[Hg] Fabian Mcmullen MD Work Phone: [facility] 08-08-2023 17:00-0400 Heart rate 84 /min Fabian Mcmullen MD Work Phone: [facility] 08-08-2023 17:00-0400 Respiratory rate 16 /min Fabian Mcmullen MD Work Phone: [facility] 08-08-2023 17:00-0400 Systolic blood pressure 128 mm[Hg] Fabian Mcmullen MD Work Phone: [facility] 08-03-2023 11:40-0400 Body temperature 99.3 [degF] Nahun Athy PA-C Work Phone: [facility] 08-03-2023 11:40-0400 Body weight 42.64 kg Nahun Athy PA-C Work Phone: [facility] 08-03-2023 11:40-0400 Diastolic blood pressure 73 mm[Hg] Nahun Athy PA-C Work Phone: [facility] 08-03-2023 11:40-0400 Heart rate 80 /min Nahun Athy PA-C Work Phone: [facility] 08-03-2023 11:40-0400 Respiratory rate 20 /min Nahun Athy PA-C Work Phone: [facility] 08-03-2023 11:40-0400 SaO2% (BldA) [Mass fraction] 98 % Nahun Athy PA-C Work Phone: [facility] 08-03-2023 11:40-0400 Systolic blood pressure 126 mm[Hg] Nahun Athy PA-C Work Phone: [facility] 05-14-2023 10:27-0400 Body weight 41.73 kg Katie Garcia [employer]IN [employer] GEOGRAPHER Work Phone: [facility] 05-14-2023 10:27-0400 Diastolic blood pressure 64 mm[Hg] Katie Garcia [employer]IN P[employer] GEOGRAPHER Work Phone: [facility] 05-14-2023 10:27-0400 Heart rate 72 /min Katie Garcia [employer]IN [employer] GEOGRAPHER Work Phone: [facility] 05-14-2023 10:27-0400 Respiratory rate 14 /min Katie Garcia TIN P[employer] GEOGRAPHER Work Phone: [facility] 05-14-2023 10:27-0400 Systolic blood pressure 120 mm[Hg] Katie Garcia TIN P[employer] GEOGRAPHER Work Phone: [facility] 04-23-2023 13:45-0400 Body temperature 98.49 [degF] Fabian Mcmullen MD Work Phone: [facility] 04-23-2023 13:45-0400 Body weight 43.09 kg Fabian Mcmullen MD Work Phone: [facility] 04-23-2023 13:45-0400 Diastolic blood pressure 64 mm[Hg] Fabian Mcmullen MD Work Phone: [facility] 04-23-2023 13:45-0400 Heart rate 89 /min Fabian Mcmullen MD Work Phone: [facility] 04-23-2023 13:45-0400 Respiratory rate 18 /min Fabian Mcmullen MD Work Phone: [facility] 04-23-2023 13:45-0400 SaO2% (BldA) [Mass fraction] 99 % Fabian Mcmullen MD Work Phone: [facility] 04-23-2023 13:45-0400 Systolic blood pressure 116 mm[Hg] Fabian Mcmullen MD Work Phone: [facility] 02-09-2023 12:19-0400 Diastolic blood pressure 56 mm[Hg] Constance Klein PA-C Work Phone: [facility] 02-09-2023 12:19-0400 Heart rate 66 /min Constance Klein PA-C Work Phone: [facility] 02-09-2023 12:19-0400 Systolic blood pressure 140 mm[Hg] Constance Klein PA-C Work Phone: [facility] 02-09-2023 11:57-0400 Body temperature 98.4 [degF] Constance Klein PA-C Work Phone: [facility] 02-09-2023 11:57-0400 Body weight 43.26 kg Constance Klein PA-C Work Phone: [facility] 02-09-2023 11:57-0400 Respiratory rate 16 /min Constance Klein PA-C Work Phone: [facility] 01-24-2023 16:18-0400 Diastolic blood pressure 70 mm[Hg] Fabian Mcmullen MD Work Phone: [facility] 01-24-2023 16:18-0400 Systolic blood pressure 172 mm[Hg] Fabian Mcmullen MD Work Phone: [facility] 01-24-2023 15:59-0400 Body weight 42.64 kg Fabian Mcmullen MD Work Phone: [facility] 01-24-2023 15:59-0400 Heart rate 64 /min Fabian Mcmullen MD Work Phone: [facility] 01-24-2023 15:59-0400 Respiratory rate 16 /min Fabian Mcmullen MD Work Phone: [facility] 01-16-2023 09:36-0400 Body temperature 97.81 [degF] Katie Garcia TIN P[employer] GEOGRAPHER Work Phone: [facility] 01-16-2023 09:36-0400 Body weight 42.19 kg Katie Garcia TIN [employer] GEOGRAPHER Work Phone: [facility] 01-16-2023 09:36-0400 Diastolic blood pressure 60 mm[Hg] Katie Garcia T[employer] P[employer] GEOGRAPHER Work Phone: [facility] 01-16-2023 09:36-0400 Heart rate 76 /min Katie Garcia T[employer] P[employer] GEOGRAPHER Work Phone: [facility] 01-16-2023 09:36-0400 Respiratory rate 14 /min Katie Garcia [employer] GEOGRAPHER Work Phone: [facility] 01-16-2023 09:36-0400 SaO2% (BldA) [Mass fraction] 99 % Katie Garcia [employer]IN P[employer] GEOGRAPHER Work Phone: [facility] 01-16-2023 09:36-0400 Systolic blood pressure 126 mm[Hg] Katie Garcia T[employer] P[employer] GEOGRAPHER Work Phone: [facility] 12-21-2022 08:27-0500 Body temperature 98.29 [degF] Fabian Mcmullen MD Work Phone: [facility] 12-21-2022 08:27-0500 Body weight 42.19 kg Fabian Mcmullen MD Work Phone: [facility] 12-21-2022 08:27-0500 Diastolic blood pressure 70 mm[Hg] Fabian Mcmullen MD Work Phone: [facility] 12-21-2022 08:27-0500 Heart rate 71 /min Fabian Mcmullen MD Work Phone: [facility] 12-21-2022 08:27-0500 Respiratory rate 14 /min Fabian Mcmullen MD Work Phone: [facility] 12-21-2022 08:27-0500 SaO2% (BldA) [Mass fraction] 100 % Fabian Mcmullen MD Work Phone: [facility] 12-21-2022 08:27-0500 Systolic blood pressure 128 mm[Hg] Fabian Mcmullen MD Work Phone: [facility] 12-11-2022 08:16-0500 Body temperature 99 [degF] Molly John [employer] GEOGR[employer]HER Work Phone: [facility] 12-11-2022 08:16-0500 Body weight 42.27 kg Molly John [employer] GEOGRAPHER Work Phone: [facility] 12-11-2022 08:16-0500 Diastolic blood pressure 78 mm[Hg] Molly John [employer] GEOGRAPHER Work Phone: [facility] 12-11-2022 08:16-0500 Heart rate 85 /min Molly John [employer] GEOGRAPHER Work Phone: [facility] 12-11-2022 08:16-0500 Respiratory rate 16 /min Molly John [employer] GEOGRAPHER Work Phone: [facility] 12-11-2022 08:16-0500 SaO2% (BldA) [Mass fraction] 100 % Molly John [employer] GEOGRAPHER Work Phone: [facility] 12-11-2022 08:16-0500 Systolic blood pressure 124 mm[Hg] Molly John [employer] GEOGR[employer]HER Work Phone: [facility] 09-06-2022 15:50-0500 Body temperature 99.39 [degF] Joelle Zurawick [employer] GEOGRAPHER Work Phone: [facility] 09-06-2022 15:50-0500 Body weight 42.82 kg Joelle Zurawick [employer] P[employer] GEOGRAPHER Work Phone: [facility] 09-06-2022 15:50-0500 Diastolic blood pressure 58 mm[Hg] Joelle Zurawick [employer] GEOGRAPHER Work Phone: [facility] 09-06-2022 15:50-0500 Heart rate 89 /min Joelle Zurawick [employer] GEOGRAPHER Work Phone: [facility] 09-06-2022 15:50-0500 Respiratory rate 16 /min Joelle Zurawick [employer]IN [employer] GEOGRAPHER Work Phone: [facility] 09-06-2022 15:50-0500 SaO2% (BldA) [Mass fraction] 97 % Joelle Zurawick [employer]IN P[employer] GEOGRAPHER Work Phone: [facility] 09-06-2022 15:50-0500 Systolic blood pressure 138 mm[Hg] Joelle Zurawick [employer] GEOGRAPHER Work Phone: [facility] 08-09-2022 15:20-0400 Body weight 42.82 kg Joelle Zurawick [employer]IN P[employer] GEOGRAPHER Work Phone: [facility] 08-09-2022 15:20-0400 Diastolic blood pressure 58 mm[Hg] Joelle Zurawick [employer] GEOGRAPHER Work Phone: [facility] 08-09-2022 15:20-0400 Heart rate 70 /min Joelle Zurawick [employer] GEOGRAPHER Work Phone: [facility] 08-09-2022 15:20-0400 Respiratory rate 14 /min Joelle Zurawick [employer] GEOGRAPHER Work Phone: [facility] 08-09-2022 15:20-0400 Systolic blood pressure 140 mm[Hg] Joelle Zurawick [employer] P[employer] GEOGRAPHER Work Phone: [facility] 07-26-2022 15:41-0400 Diastolic blood pressure 64 mm[Hg] Fabian Mcmullen MD Work Phone: [facility] 07-26-2022 15:41-0400 Systolic blood pressure 152 mm[Hg] Fabian Mcmullen MD Work Phone: [facility] 07-26-2022 15:20-0400 Body height 152.4 cm Fabian Mcmullen MD Work Phone: [facility] 07-26-2022 15:20-0400 Body weight 42.64 kg Fabian Mcmullen MD Work Phone: [facility] 07-26-2022 15:20-0400 Heart rate 70 /min Fabian Mcmullen MD Work Phone: [facility] 07-26-2022 15:20-0400 Respiratory rate 14 /min Fabian Mcmullen MD Work Phone: [facility] Encounters Encounter Date Encounter Type Care Provider Facility Start: 11-20-2023 Telephone encounter Fabian Mcmullen MD Work Phone: [facility] Procedures Date Procedure Procedure Detail Performing Clinician Start: 08-08-2023 INFLUENZA VACCINE, P RSV FREE, AGE 65+ YR, HIGH DOSE, QUADRIVALENT (FLUZONE HIGH-DOSE) Fabian Mcmullen MD Work Phone: Start: 07-30-2023 Lipid 1996 panel - S larry or Plasma Nahun Goldman PA-C Work Phone: Start: 02-27-2023 End: 02-27-2023 Mammography Bulk Order Provider Start: 01-24-2023 Lipid 1996 panel - S larry or Plasma Fabian Mcmullen MD Work Phone: Start: 12-11-2022 STREP A MOLECULAR (POC) Molly Lopez [employer] GEOGR[employer]HER Work Phone: Start: 08-09-2022 PFIZER-BIONTECH COVI D-19 BIVALENT BOOSTER VACCINE, AGE 12+ YR Joelle Katz [employer]IN [employer] GEOGRAPHER Work Phone: Start: 05-04-2021 Mammography Fabian mcbride MD Work Phone: Start: 11-23-2020 Colonoscopy Fabian mcbride MD Work Phone: Plan of Treatment Date Care Activity Detail Author Start: 07-30-2028 Lipid 1996 panel - S larry or Plasma Lipid Screening [facility] Start: 07-30-2028 Lipid panel [facility] Scre[facility] Start: 01-25-2028 Lipid 1996 panel - S larry or Plasma Lipid Screening [facility] Start: 01-25-2028 LIPID SCREEN LIPID SCREEN [facility] Start: 07-29-2027 LIPID SCREEN LIPID SCREEN [facility] Start: 07-30-2026 Diabetes Screening Diabetes Screenin g [facility] Start: 07-11-2026 LIPID SCREEN LIPID SCREEN [facility] Start: 05-07-2026 DIABETES SCREEN DIABETES SCREEN [facility] Start: 05-07-2026 Diabetes Screening Diabetes Screenin g [facility] Start: 01-24-2026 DIABETES SCREEN DIABETES SCREEN [facility] Start: 11-24-2025 COLORECTAL CANCER SCREENING COLORECTAL CANCER SCREENING [facility] Start: 11-24-2025 FECAL OCCULT BLOOD FECAL OCCULT BLOO D [facility] Start: 11-24-2025 Screening for malign ant neoplasm of colon [facility] Start: 07-29-2025 DIABETES SCREEN DIABETES SCREEN [facility] Start: 07-17-2025 DIABETES SCREEN DIABETES SCREEN [facility] Start: 01-06-2025 DIABETES SCREEN DIABETES SCREEN [facility] Start: 11-16-2024 Annual PCP Team [employer] Helper henry Disease Visit Annual PCP Team Chronic Disease Visit [facility] Start: 08-08-2024 Annual PCP Team [employer] Helper henry Disease Visit Annual PCP Team Chronic Disease Visit [facility] Start: 08-08-2024 BP Controlled (<130/80) BP Controlle d (<130/80) [facility] Start: 08-08-2024 RSV Vaccine (1 - 1-d ose 60+ series) RSV Vaccine (1 - 1-dose 60+ series) [facility] Immunizations Immunization Date Immunization Notes Care Provider Fa katy 08-08-2023 influenza (HD-IIV4) vaccine, age 65+ yr, high dose, quadrivalent, PF (FLUZONE HIGH-DOSE) Fabian Mcmullen MD Work Phone: [facility] 08-09-2022 COVID-19 booster vaccine, age 12+ yr, bivalent (SoundsupplyNTBrainsway) Joelle Katz [employer] GEOGRAPHER Work Phone: [facility] 07-26-2022 pneumococcal Conjuga te, unspecified formulation Fabian Mcmullen MD Work Phone: [facility] Work Phone: 07-26-2022 pneumococcal (PCV20) vaccine, 20 valent (PREVNAR 20) Fabian Mcmullen MD Work Phone: [facility] 07-25-2022 influenza, high dose seasonal, preservative-free Fabian Mcmullen MD Work Phone: [facility] Work Phone: 08-18-2021 COVID-19 vaccine, ag e 12+ yr (PFIZER-BIONTECH - PURPLE TOP) Fabian Mcmullen MD Work Phone: [facility] 07-06-2021 zoster vaccine recombinant Fabian Mcmullen MD Work Phone: [facility] 01-28-2021 zoster vaccine recombinant Fabian Mcmullen MD Work Phone: [facility] Work Phone: 01-06-2021 COVID-19 vaccine, ag e 12+ yr (PFIZER-BIONTECH - PURPLE TOP) Fabian Mcmullen MD Work Phone: [facility] Work Phone: 12-16-2020 COVID-19 vaccine, ag e 12+ yr (PFIZER-BIONTECH - PURPLE TOP) Fabian Mcmullen MD Work Phone: [facility] Work Phone: 10-31-2012 tetanus toxoid, redu jameson diphtheria toxoid, and acellular pertussis vaccine, adsorbed Fabian Mcmullen MD Work Phone: [facility] Payers Date Payer Category Payer Private Health Insurance [id number] 2023 Unknown [id number] 2023 Unknown [id number] 2014 Unknown MMO MMO [employer] [id number] 2014-Present [phone] [address] [address] [place] [address] Indemnity [id number] 2014 Unknown [id number] 2014 Unknown [id number] 2013 Medicare MEDICARE MEDICAR E A AND B [id number] 2013-Present [phone] [place] [address] Medicare [id number] 2013 Medicare [id number] Social History Date Type Detail Facility Start: 06-28-2016 End: 07-17-2022 Tobacco smoking status NHIS Never smoked tobacco [facility] Work Phone: Start: 01-04-2022 End: 11-20-2023 Alcohol intake Current non-drinker of alcohol (finding) [facility] Start: 04-12-2021 History SDOH Alcohol Frequency 1 [facility] Start: 04-12-2021 History SDOH Alcohol Std Drinks 98 [facility] Start: 04-12-2021 History SDOH Social Connections Phone 5 [facility] Start: 04-12-2021 History SDOH Social Connections Pentecostal 3 [facility] Start: 04-12-2021 History SDOH Physical Activity MPS 2 [facility] Start: 1950 Sex Assigned At Not on file [facility] Start: 12-27-2021 End: 09-06-2022 Exposure to SARS-CoV-2 (event) Not sure [facility] Work Phone: Start: 06-28-2016 End: 07-17-2022 Tobacco use and exposure Smokeless tobacco non-user [facility] Work Phone: Start: 04-12-2021 End: 03-08-2023 History of Social function [facility] Start: 04-12-2021 End: 03-08-2023 Social connection and isolation panel [facility] Do you belong to any clubs or organizations such as oriental orthodox groups, unions, fraternal or athletic groups, or school groups? Patient refused [facility] Are you now , , , , never or living with a partner? [facility] How often to you hav e a drink containing alcohol? Never [facility] Do you feel stress - tense, restless, nervous, or anxious, or unable to sleep at night because your mind is troubled all the time - these days [OSQ] Only a little [facility] (I/We) worried wheth er (my/our) food would run out before (I/we) got money to buy more. Never true [facility] Start: 04-12-2021 Gender identity Identifies as female gender (finding) [facility] Start: 04-12-2021 Sexual orientation Heterosexual (finding) [facility] Clinical Notes 12-03-2011 to 11-20-2023 Telephone Encounter - Kristen Griffin RN - 11/20/2023 12:36 PM ESTTelephone Encounter - Fabian Mcmullen MD - 11/20/2023 12:17 PM ESTPatient InstructionsPatient InstructionsPatient Instructions Note Date & Type Note Facility 11-20-2023 Miscellaneous Notes Formattin g of this note might be different from the original. Pt called and is notified of providers message and instructions. Pt voices understanding. Faxed Pt Snapshot to [facility] at fax # [phone]. Kristen Griffin RN Let patient know based on her last exam I would not place on a new course of antibiotics. Advise her to finish the prednisone and keep her appt with ENT. Please fax a copy of patient's Snap Shot to [facility]. Patient calls and wanted provider to know that she feels like she still feels like she has an infection in her ear. Patient reports that she has 3 tablets of prednisone left. Patient states that her ear is still plugged. Patient does have an appointment with Dr. Magallanes ENT on . Patient asking if provider has any other suggestions on antibiotics since she thinks she has ear infection? Patient asking if Dr. Magallanes's office has all information on what has been done with ear and patient's history of C-diff? Please review and advise, Corrie Harrington RN documented in this encounter [facility] 11-16-2023 Note HNO ID: [id number] Author: FABIAN MCMULLEN MD Service: ? Author Type: Physician Type: Progress Notes Filed: 11/16/2023 12:11 Note Text: Chief Complaint Patient presents with: Follow Up HPI Paz Harrington is a 73 year old female who presents here today for follow up on left ear infection. Patient indicated that she has finished the antibiotic and has seen no improvement. Still having issues hearing; pressure. Patient usually has sinus drainage. Ear feels blocked and sounds are muffled. No fevers or chills.. No facial pain. No productive cough. Has her typical sinus drainage. Office visit - 11/08/2023 Patient presents for left ear pressure and decreased hearing. Patient reports left ear feels full. Recently had covid and stopped taking her claritin daily. Denies fever, drainage or sinus pressure. Past medical history, appointments, medications, allergies reviewed. Previous Medical History PAST MEDICAL HISTORY Diagnosis Date Advance directive discussed with patient 07/26/2022 Discussed 07/2022 Age-related osteoporosis without current pathological fracture 11/30/2009 Candidal cheilitis 12/03/2011 Cheilitis: lower lip: along jennifer to lip mucosa 12/03/2011 Chronic allergic rhinitis 07/21/2017 Chronic right-sided low back pain 10/03/2016 Clostridium difficile colitis 2007 Diverticulosis 04/23/2023 Diverticulosis of colon Elevated hemoglobin A1c 05/14/2019 Elevated plasma metanephrines 01/27/2018 Saw endo and no concern for Pheo. 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 Thoracic or lumbosacral neuritis or radiculitis, unspecified 12/22/2008 Well adult exam 07/21/2017 last done: 05/14/2019 Previous Surgical History PAST SURGICAL HISTORY Procedure Laterality Date COLONOSCOPY FLX DX W/COLLJ SPEC WHEN PFRMD Colonoscopy FECAL OCCULT BLOOD TEST 07/28/2017 negative STRESS ECHO 04/30/2020 negative TONSILLECTOMY PRIMARY/SECONDARY AGE 12/> Age of 38 Family History FAMILY HISTORY Problem Relation Age of Onset Hypertension Mother Heart Father CHF Heart Paternal Grandmother Stroke Paternal Grandmother Diabetes Paternal Aunt Patient Allergies ALLERGIES Allergen Reactions Sulfa (Sulfonamide * Rash Augmentin [Amoxicil* Intolerance Patient had diarrhea and possibly a mild skin rash with prior use of Augmentin. She has subsequently taken amoxicillin and tolerated this without adverse reaction. Cats Intolerance Echinacea Swelling Pollen Intolerance Ragweed Intolerance Current Medications Current Outpatient Medications on File Prior to Visit Medication Sig Potassium Chloride (KLOR-CON 8) 8 mEq tablet Take 1 tablet by mouth two times a day. zolpidem (AMBIEN) 10 mg Take 1 tablet by mouth at bedtime as needed for up to 180 days. FOR INSOMNIA benzonatate (TESSALON PERLES) 100 mg capsule Take 2 capsules by mouth three times a day as needed. albuterol HFA (PROAIR HFA) 90 mcg/actuation inhaler Inhale 2 Puffs as instructed every 6 hours as needed. lisinopril (ZESTRIL) 40 mg tablet Take 1 tablet by mouth once daily. hydroCHLOROthiazide 12.5 mg capsule Take 1 capsule by mouth once daily. acyclovir (ZOVIRAX) 800 mg tablet 1 tablet three times daily. (Patient taking differently: 800 mg as needed.) alendronate (FOSAMAX) 70 mg tablet Take 1 tablet by mouth one time a week. In AM with cup of water on empty stomach. Nothing else by mouth and stay upright for 30 min. aspirin, enteric coated (ASPIRIN, ENTERIC COATED) 81 mg EC tablet Take 1 tablet by mouth once daily. acyclovir (ZOVIRAX) 800 mg tablet 1 tablet three times daily. cholecalciferol (VITAMIN D3) 1,000 unit tab tablet Take 1,000 Units by mouth twice daily. loratadine (CLARITIN) 10 mg tablet Take 1 tablet by mouth once daily. No current facility-administered medications on file prior to visit. Social History Social History Tobacco Use Smoking status: Never Smokeless tobacco: Never Vaping Use Vaping Use: Never used Substance Use Topics Alcohol use: No Drug use: No Review of Symptoms REVIEW OF SYSTEMS See HPI EXAM: BP 148/74 (BP Site: Left Arm, BP Position: Sitting, BP Cuff Size: Regular Adult) Pulse 76 Temp 36.5 ?C (97.7 ?F) (Tympanic) Resp 16 Wt 44 kg (97 lb) BMI 19.26 kg/m? General Appearance: Well appearing, alert, in no acute distress, well-hydrated, well nourished.. Eyes: Anicteric sclera. Pupils are equally round and reactive to light. Extraocular movements are intact. . (more content not included)... [facility] 11-16-2023 Instructions Fabian Mcmullen MD - 11/16/2023 10:[address] Mcmullen an update on how tour ear feels on Sunday 11/19 or 11/20. documented in this encounter [facility] 11-16-2023 History of Presen t illness Narrative Chief Complaint Patient presents with: Follow Up HPI Paz Harrington is a 73 year old female who presents here today for follow up on left ear infection. Patient indicated that she has finished the antibiotic and has seen no improvement. Still having issues hearing; pressure. Patient usually has sinus drainage. Ear feels blocked and sounds are muffled. No fevers or chills.. No facial pain. No productive cough. Has her typical sinus drainage. Office visit - 11/08/2023 Patient presents for left ear pressure and decreased hearing. Patient reports left ear feels full. Recently had covid and stopped taking her claritin daily. Denies fever, drainage or sinus pressure. Past medical history, appointments, medications, allergies reviewed. Previous Medical History PAST MEDICAL HISTORY Diagnosis Date Advance directive discussed with patient 07/26/2022 Discussed 07/2022 Age-related osteoporosis without current pathological fracture 11/30/2009 Candidal cheilitis 12/03/2011 Cheilitis: lower lip: along jennifer to lip mucosa 12/03/2011 Chronic allergic rhinitis 07/21/2017 Chronic right-sided low back pain 10/03/2016 Clostridium difficile colitis 2007 Diverticulosis 04/23/2023 Diverticulosis of colon Elevated hemoglobin A1c 05/14/2019 Elevated plasma metanephrines 01/27/2018 Saw endo and no concern for Pheo. 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 Thoracic or lumbosacral neuritis or radiculitis, unspecified 12/22/2008 Well adult exam 07/21/2017 last done: 05/14/2019 Previous Surgical History PAST SURGICAL HISTORY Procedure Laterality Date COLONOSCOPY FLX DX W/COLLJ SPEC WHEN PFRMD Colonoscopy FECAL OCCULT BLOOD TEST 07/28/2017 negative STRESS ECHO 04/30/2020 negative TONSILLECTOMY PRIMARY/SECONDARY AGE 12/> Age of 38 Family History FAMILY HISTORY Problem Relation Age of Onset Hypertension Mother Heart Father CHF Heart Paternal Grandmother Stroke Paternal Grandmother Diabetes Paternal Aunt Patient Allergies ALLERGIES Allergen Reactions Sulfa (Sulfonamide * Rash Augmentin [Amoxicil* Intolerance Patient had diarrhea and possibly a mild skin rash with prior use of Augmentin. She has subsequently taken amoxicillin and tolerated this without adverse reaction. Cats Intolerance Echinacea Swelling Pollen Intolerance Ragweed Intolerance Current Medications Current Outpatient Medications on File Prior to Visit Medication Sig Potassium Chloride (KLOR-CON 8) 8 mEq tablet Take 1 tablet by mouth two times a day. zolpidem (AMBIEN) 10 mg Take 1 tablet by mouth at bedtime as needed for up to 180 days. FOR INSOMNIA benzonatate (TESSALON PERLES) 100 mg capsule Take 2 capsules by mouth three times a day as needed. albuterol HFA (PROAIR HFA) 90 mcg/actuation inhaler Inhale 2 Puffs as instructed every 6 hours as needed. lisinopril (ZESTRIL) 40 mg tablet Take 1 tablet by mouth once daily. hydroCHLOROthiazide 12.5 mg capsule Take 1 capsule by mouth once daily. acyclovir (ZOVIRAX) 800 mg tablet 1 tablet three times daily. (Patient taking differently: 800 mg as needed.) alendronate (FOSAMAX) 70 mg tablet Take 1 tablet by mouth one time a week. In AM with cup of water on empty stomach. Nothing else by mouth and stay upright for 30 min. aspirin, enteric coated (ASPIRIN, ENTERIC COATED) 81 mg EC tablet Take 1 tablet by mouth once daily. acyclovir (ZOVIRAX) 800 mg tablet 1 tablet three times daily. cholecalciferol (VITAMIN D3) 1,000 unit tab tablet Take 1,000 Units by mouth twice daily. loratadine (CLARITIN) 10 mg tablet Take 1 tablet by mouth once daily. No current facility-administered medications on file prior to visit. Social History Social History Tobacco Use Smoking status: Never Smokeless tobacco: Never Vaping Use Vaping Use: Never used Substance Use Topics Alcohol use: No Drug use: No Review of Symptoms REVIEW OF SYSTEMS See HPI EXAM: BP 148/74 (BP Site: Left Arm, BP Position: Sitting, BP Cuff Size: Regular Adult) Pulse 76 Temp 36.5 C (97.7 F) (Tympanic) Resp 16 Wt 44 kg (97 lb) BMI 19.26 kg/m General Appearance: Well appearing, alert, in no acute distress, well-hydrated, well nourished.. Eyes: Anicteric sclera. Pupils are equally round and reactive to light. Extraocular movements are intact. . Ears: the right ear, canal and TM were normal. The left ear and canal were normal. The left TM is not bulging or erythematous and has a good light reflex. There is purulence behind the TM. . Nose/Sinuses: Nares normal, septum midline, mucosa normal, no drainage or sinus tenderness. Oropharynx: Lips, mucosa, and tongue normal, teeth and gums normal, oropharynx normal. Neck: Supple, no adenopathy; thyroid symmetric, normal size, no bruits. Lungs: Lungs clear to auscultation. No wheezing, rhonchi, rales.. Health Maintenance List BP Controlled (<130/80) Never done Covid-19 Vaccine( season) due on 06/15/2023 Advance Directive Discussion due on 10/15/2023 Depression Assessment due on 10/15/2023 DTaP,Tdap,Td Vaccine(2 - Td or Tdap) due on 08/08/2024 RSV Vaccine(1 - 1-dose 60+ series) due on 08/08/2024 Annual PCP Team Chronic Disease Visit due on 11/08/2024 Colorectal Cancer Screening due on 11/24/2025 Diabetes Screening due on 07/30/2026 Lipid Screening due on 07/30/2028 Bone Density Screening Completed Shingrix Vaccine Completed Pneumococcal Vaccine: 65+ Completed Mammogram Screening Discontinued Influenza Vaccine Discontinued Hepatitis C Screening Discontinued Data reviewed A/P ASSESSMENT/PLAN: 1. Eustachian tube disorder, left - ICD9: 381.9, ICD10: H69.92 (primary diagnosis) - feel this is the issue with the presence of the puss behind the TM. I do not feel she needs an extended course of antibiotics. - will treat with medrol dose pack and encouraged doing an antihistamine such as Claritin for a few weeks. 2. Non-recurrent acute serous otitis media of left ear - ICD9: 381.01, ICD10: H65.02 - see about Requested Prescriptions Signed Prescriptions Disp Refills methylPREDNISolone (MEDROL, JAEL,) 4 mg Dose-Pack 21 tablet 0 Sig: Follow dosing instructions, take with food. F/u routine of if not resolving. Patient to update me early next week. Fabian Mcmullen MD documented in this encounter [facility] 11-08-2023 Note HNO ID: [id number] Author: KATIE GARCIA APRN.GIS GEOGRAPHER Service: ? Author Type: Nurse Practitioner Type: Progress Notes Filed: 11/08/2023 18:40 Note Text: Chief Complaint No chief complaint on file. HPI Paz Harrington is a 73 year old female who presents here today for Above Complaints.. Patient presents for left ear pressure and decreased hearing. Patient reports left ear feels full. Recently had covid and stopped taking her claritin daily. Denies fever, drainage or sinus pressure. Past medical history, appointments, medications, allergies reviewed. Previous Medical History PAST MEDICAL HISTORY Diagnosis Date Advance directive discussed with patient 07/26/2022 Discussed 07/2022 Age-related osteoporosis without current pathological fracture 11/30/2009 Candidal cheilitis 12/03/2011 Cheilitis: lower lip: along jennifer to lip mucosa 12/03/2011 Chronic allergic rhinitis 07/21/2017 Chronic right-sided low back pain 10/03/2016 Clostridium difficile colitis 2007 Diverticulosis 04/23/2023 Diverticulosis of colon Elevated hemoglobin A1c 05/14/2019 Elevated plasma metanephrines 01/27/2018 Saw endo and no concern for Pheo. 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 Thoracic or lumbosacral neuritis or radiculitis, unspecified 12/22/2008 Well adult exam 07/21/2017 last done: 05/14/2019 Previous Surgical History PAST SURGICAL HISTORY Procedure Laterality Date COLONOSCOPY FLX DX W/COLLJ SPEC WHEN PFRMD Colonoscopy FECAL OCCULT BLOOD TEST 07/28/2017 negative STRESS ECHO 04/30/2020 negative TONSILLECTOMY PRIMARY/SECONDARY AGE 12/> Age of 38 Family History FAMILY HISTORY Problem Relation Age of Onset Hypertension Mother Heart Father CHF Heart Paternal Grandmother Stroke Paternal Grandmother Diabetes Paternal Aunt Patient Allergies ALLERGIES Allergen Reactions Sulfa (Sulfonamide * Rash Augmentin [Amoxicil* Intolerance Patient had diarrhea and possibly a mild skin rash with prior use of Augmentin. She has subsequently taken amoxicillin and tolerated this without adverse reaction. Cats Intolerance Echinacea Swelling Pollen Intolerance Ragweed Intolerance Current Medications Current Outpatient Medications on File Prior to Visit Medication Sig Potassium Chloride (KLOR-CON 8) 8 mEq tablet Take 1 tablet by mouth two times a day. zolpidem (AMBIEN) 10 mg Take 1 tablet by mouth at bedtime as needed for up to 180 days. FOR INSOMNIA benzonatate (TESSALON PERLES) 100 mg capsule Take 2 capsules by mouth three times a day as needed. albuterol HFA (PROAIR HFA) 90 mcg/actuation inhaler Inhale 2 Puffs as instructed every 6 hours as needed. lisinopril (ZESTRIL) 40 mg tablet Take 1 tablet by mouth once daily. hydroCHLOROthiazide 12.5 mg capsule Take 1 capsule by mouth once daily. acyclovir (ZOVIRAX) 800 mg tablet 1 tablet three times daily. (Patient taking differently: 800 mg as needed.) alendronate (FOSAMAX) 70 mg tablet Take 1 tablet by mouth one time a week. In AM with cup of water on empty stomach. Nothing else by mouth and stay upright for 30 min. aspirin, enteric coated (ASPIRIN, ENTERIC COATED) 81 mg EC tablet Take 1 tablet by mouth once daily. acyclovir (ZOVIRAX) 800 mg tablet 1 tablet three times daily. cholecalciferol (VITAMIN D3) 1,000 unit tab tablet Take 1,000 Units by mouth twice daily. loratadine (CLARITIN) 10 mg tablet Take 1 tablet by mouth once daily. No current facility-administered medications on file prior to visit. Social History Social History Tobacco Use Smoking status: Never Smokeless tobacco: Never Vaping Use Vaping Use: Never used Substance Use Topics Alcohol use: No Drug use: No Review of Symptoms REVIEW OF SYSTEMS SEE HPI EXAM: BP 134/70 Pulse 84 Resp 12 Wt 44.5 kg (98 lb) BMI 19.46 kg/m? General Appearance: Well appearing, alert, in no acute distress, well-hydrated, well nourished.. Ears: Positive findings: L TM: bulging, erythema and edema of ear canal: on left. Health Maintenance List Covid-19 Vaccine( season) due on 06/15/2023 Advance Directive Discussion due on 10/15/2023 Depression Assessment due on 10/15/2023 DTaP,Tdap,Td Vaccine(2 - Td or Tdap) due on 08/08/2024 RSV Vaccine(1 - 1-dose 60+ series) due on 08/08/2024 Mammogram Screening due on 02/28/2024 Annual PCP Team Chronic Disease Visit due on 08/08/2024 BP Controlled (<130/80) due on 10/10/2024 Colorectal Cancer Screening due on 11/15 (more content not included)... [facility] 10-10-2023 Note HNO ID: [id number] Author: Ernie Geronimo PA Service: ? Author Type: Physician Cloud Operations Engineer Type: Progress Notes Filed: 10/10/2023 4:04 PM Note Text: This note was created using SideStepriter. Subjective Paz Harrington is a 72 year old female. HPI 72-year-old female presents for sinus pressure, headache, congestion, cough x 2 days. Patient states 2 days ago she started getting sore throat, sinus congestion, postnasal drainage and cough. She has had a headache and some sinus pressure in the front of her face. No fevers. No sick contacts that she is aware of. No vomiting or diarrhea. No other complaints. She has taken Tylenol Sinus which helped with symptoms. PAST MEDICAL HISTORY Diagnosis Date Advance directive discussed with patient 07/26/2022 Discussed 07/2022 Age-related osteoporosis without current pathological fracture 11/30/2009 Candidal cheilitis 12/03/2011 Cheilitis: lower lip: along jennifer to lip mucosa 12/03/2011 Chronic allergic rhinitis 07/21/2017 Chronic right-sided low back pain 10/03/2016 Clostridium difficile colitis 2007 Diverticulosis 04/23/2023 Diverticulosis of colon Elevated hemoglobin A1c 05/14/2019 Elevated plasma metanephrines 01/27/2018 Saw endo and no concern for Pheo. 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 Thoracic or lumbosacral neuritis or radiculitis, unspecified 12/22/2008 Well adult exam 07/21/2017 last done: 05/14/2019 PAST SURGICAL HISTORY Procedure Laterality Date COLONOSCOPY FLX DX W/COLLJ SPEC WHEN PFRMD Colonoscopy FECAL OCCULT BLOOD TEST 07/28/2017 negative STRESS ECHO 04/30/2020 negative TONSILLECTOMY PRIMARY/SECONDARY AGE 12/> Age of 38 ALLERGIES Sulfa (Sulfonamide Antibiotics), Augmentin [Amoxicillin-Pot Clavulanate], Cats, Echinacea, Pollen, and Ragweed MEDICATIONS Potassium Chloride (KLOR-CON 8) 8 mEq tabletTake 1 tablet by mouth two times a day.Disp: 180 tabletRfl: 1 zolpidem (AMBIEN) 10 mgTake 1 tablet by mouth at bedtime as needed for up to 180 days. FOR INSOMNIADisp: 90 tabletRfl: 1 benzonatate (TESSALON PERLES) 100 mg capsuleTake 2 capsules by mouth three times a day as needed.Disp: 30 capsuleRfl: 0 albuterol HFA (PROAIR HFA) 90 mcg/actuation inhalerInhale 2 Puffs as instructed every 6 hours as needed.Disp: 1 EachRfl: 0 lisinopril (ZESTRIL) 40 mg tabletTake 1 tablet by mouth once daily.Disp: 30 tabletRfl: 5 hydroCHLOROthiazide 12.5 mg capsuleTake 1 capsule by mouth once daily.Disp: 90 capsuleRfl: 1 acyclovir (ZOVIRAX) 800 mg tablet1 tablet three times daily.Disp: 30 tabletRfl: 5 (Patient taking differently: 800 mg as needed.) alendronate (FOSAMAX) 70 mg tabletTake 1 tablet by mouth one time a week. In AM with cup of water on empty stomach. Nothing else by mouth and stay upright for 30 min.Disp: 12 tabletRfl: 3 aspirin, enteric coated (ASPIRIN, ENTERIC COATED) 81 mg EC tabletTake 1 tablet by mouth once daily.Disp: Rfl: acyclovir (ZOVIRAX) 800 mg tablet1 tablet three times daily.Disp: 30 tabletRfl: 1 cholecalciferol (VITAMIN D3) 1,000 unit tab tabletTake 1,000 Units by mouth twice daily.Disp: Rfl: loratadine (CLARITIN) 10 mg tabletTake 1 tablet by mouth once daily.Disp: 30 tabletRfl: 11 FAMILY HISTORY Problem Relation Age of Onset Hypertension Mother Heart Father CHF Heart Paternal Grandmother Stroke Paternal Grandmother Diabetes Paternal Aunt Social History Tobacco Use Smoking status: Never Smokeless tobacco: Never Vaping Use Vaping Use: Never used Substance Use Topics Alcohol use: No Drug use: No Review of Systems Constitutional: Negative for chills and fever. HENT: Positive for congestion, sinus pressure and sinus pain. Negative for ear pain and sore throat. Respiratory: Positive for cough. Negative for shortness of breath. Cardiovascular: Negative for chest pain. Gastrointestinal: Negative for diarrhea and vomiting. Neurological: Positive for headaches. Objective BP 110/58 Pulse 83 Temp 37 ?C (98.6 ?F) Resp 16 Wt 45 kg (99 lb 3.2 oz) SpO2 98% BMI 19.70 kg/m? Physical Exam Vitals and nursing note reviewed. Constitutional: General: She is not in acute distress. Appearance: Normal appearance. She is not toxic-appearing. HENT: Right Ear: Tympanic membrane and ear canal normal. Left Ear: Tympanic membrane and ear canal normal. Nose: Congestion present. Right Sinus: Frontal sinus tenderness present. Left Sinus: Frontal sinus tenderness present. Mouth/Throat: (more content not included)... [facility] 09-04-2023 Miscellaneous Notes Formattin g of this note is different from the original. The following approved medication requests have been transmitted electronically. Requested Prescriptions Signed Prescriptions Disp Refills Potassium Chloride (KLOR-CON 8) 8 mEq tablet 180 tablet 1 Sig: Take 1 tablet by mouth two times a day. Authorizing Provider: FABIAN MCMULLEN MD Letter mailed to provider and patient that brand Micro-K not covered and needs switched to klor-con 8. Rx pended please send to pharmacy, patient was notified on vm. Marianela Petersen Ma documented in this encounter [facility] 08-23-2023 Miscellaneous Notes Formattin g of this note might be different from the original. Message left on pt identified VM that scripts refilled. Susan Schneider Ma Et patient know scripts have been sent to [facility]: turn off the lights. The following approved medication requests have been transmitted electronically. Requested Prescriptions Signed Prescriptions Disp Refills zolpidem (AMBIEN) 10 mg 90 tablet 1 Sig: Take 1 tablet by mouth at bedtime as needed for up to 180 days. FOR INSOMNIA Authorizing Provider: FABIAN MCMULLEN potassium chloride SR (MICRO-K) 8 mEq cpER 180 capsule 1 Sig: Take 1 capsule by mouth two times a day. Authorizing Provider: FABIAN MCMULLEN MD Paz Harrington is calling Fabian Mcmullen MD today to change her Pharmacy due to problems with 2 medications at current Pharmacy: potassium chloride SR (MICRO-K) 8 mEq cpER zolpidem (AMBIEN) 10 mg Please send [facility], please send today. Patient has been identified by name and birthdate. Duration of symptoms: N/A Person calling: self Call patient at: at home [phone] (home) [phone] (cell) Was an appointment scheduled: No Closing statement: Results or non-symptom based questions: Thank you for calling [facility], your call will be returned within the next business day. Dionna Allan documented in this encounter [facility] 08-08-2023 Note HNO ID: [id number] Author: Fabian Mcmullen MD Service: ? Author Type: Physician Type: Progress Notes Filed: 08/08/2023 10:44 PM Note Text: Medicare Yearly Visit Medical B eligibilty date 06/15/2023 Date of last exam NA PAST MEDICAL HISTORY Diagnosis Date Advance directive discussed with patient 07/26/2022 Discussed 07/2022 Age-related osteoporosis without current pathological fracture 11/30/2009 Candidal cheilitis 12/03/2011 Cheilitis: lower lip: along jennifer to lip mucosa 12/03/2011 Chronic allergic rhinitis 07/21/2017 Chronic right-sided low back pain 10/03/2016 Clostridium difficile colitis 2007 Diverticulosis 04/23/2023 Diverticulosis of colon Elevated hemoglobin A1c 05/14/2019 Elevated plasma metanephrines 01/27/2018 Saw endo and no concern for Pheo. 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 Thoracic or lumbosacral neuritis or radiculitis, unspecified 12/22/2008 Well adult exam 07/21/2017 last done: 05/14/2019 PAST SURGICAL HISTORY Procedure Laterality Date COLONOSCOPY FLX DX W/COLLJ SPEC WHEN PFRMD Colonoscopy FECAL OCCULT BLOOD TEST 07/28/2017 negative STRESS ECHO 04/30/2020 negative TONSILLECTOMY PRIMARY/SECONDARY AGE 12/> Age of 38 ALLERGIES: Sulfa (Sulfonamide Antibiotics), Augmentin [Amoxicillin-Pot Clavulanate], Cats, Echinacea, Pollen, and Ragweed Medications reviewed: Yes FAMILY HISTORY Problem Relation Age of Onset Hypertension Mother Heart Father CHF Heart Paternal Grandmother Stroke Paternal Grandmother Diabetes Paternal Aunt SOCIAL HISTORY: Social History Tobacco Use Smoking status: Never Smokeless tobacco: Never Vaping Use Vaping Use: Never used Substance Use Topics Alcohol use: No Drug use: No Paz denies regular aerobic exercise. She watches her diet for sodium, low fat and low cholesterol most of the time. List of current specialists seen: - Dr. Osborn (vascular) - Dr. Scott End of Live Planning discussed including patients advanced directive wishes: Yes I am willing to follow Paz's advanced directives. PHQ-2 / Depression screen No risk of depresion Functional Ability/Safety Screen 1. Was the patient's timed Up and Go test unsteady or longer than 30 seconds? No 2. Does the patient need help with the phone, transportation, shopping,preparing meals, housework, laundry, medications or managing money? No 3. Does your home have rugs in the hallway, lack of grab bars in the bathroom (Y), lack of handrails on the stairs or have poor lighting? No Hearing Evaluation: within normal limits PHYSICAL EXAM BP 128/68 (BP Site: Left Arm, BP Position: Sitting, BP Cuff Size: Regular Adult) Pulse 84 Resp 16 Ht 151.1 cm (4' 11.5 ) Wt 42.6 kg (94 lb) BMI 18.67 kg/m? Alert and oriented X 3: YES Body mass index is 18.67 kg/m?. Visual acuity: seeing optho See below ASSESSMENT/PLAN: 72 year old female The following prevention plan was discussed during the office visit and provided to the patient: See below Fabian Mcmullen MD Chief Complaint Patient presents with: Medicare Wellness Exam HPI Paz Harrington is a 72 year old female who presents here today for Chronic Medical Conditions. and Medicare Annual Visit. Patient with Hx of HTN, insomnia, elevated A1c, allergic rhinitis, cold sores as well as those reviewed and addressed below and in ROS. Patient sees [facility] - last visit 08/07/2023. Had a recent T calcium score that came back low/mild. Past medical history, appointments, medications, allergies reviewed. Previous Medical History PAST MEDICAL HISTORY Diagnosis Date Advance directive discussed with patient 07/26/2022 Discussed 07/2022 Age-related osteoporosis without current pathological fracture 11/30/2009 Candidal cheilitis 12/03/2011 Cheilitis: lower lip: along jennifer to lip mucosa 12/03/2011 Chronic allergic rhinitis 07/21/2017 Chronic right-sided low back pain 10/03/2016 Clostridium difficile colitis 2007 Diverticulosis 04/23/2023 Diverticulosis of colon Elevated hemoglobin A1c 05/14/2019 Elevated plasma metanephrines 01/27/2018 Saw endo and no concern for Pheo. Essential hypertension, benign 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 dysplasia of both carotid arteries (HCC) 08/03/2022 US 07/2022 LALO (generalized anxiety disorder) 12/29/2020 Insomnia 11/29/2016 Lactose intolerance Lactose intolerance Mild AI (aortic insufficiency) 07/27/2022 Echo 07/2022 Normocytic anemia 09/14 (more content not included)... [facility] 08-08-2023 Instructions Fabian Mcmullen MD - 08/08/2023 5:15 PM EDT Consider getting the RSV vaccine from a local pharmacy. Consider getting a Tdap for tetanus update at the health dept. Please get lab done on or after prior to your next visit. documented in this encounter [facility] 08-08-2023 History of Presen t illness Narrative Medicare Yearly Visit Medical B eligibilty date 06/15/2023 Date of last exam NA PAST MEDICAL HISTORY Diagnosis Date Advance directive discussed with patient 07/26/2022 Discussed 07/2022 Age-related osteoporosis without current pathological fracture 11/30/2009 Candidal cheilitis 12/03/2011 Cheilitis: lower lip: along jennifer to lip mucosa 12/03/2011 Chronic allergic rhinitis 07/21/2017 Chronic right-sided low back pain 10/03/2016 Clostridium difficile colitis 2007 Diverticulosis 04/23/2023 Diverticulosis of colon Elevated hemoglobin A1c 05/14/2019 Elevated plasma metanephrines 01/27/2018 Saw endo and no concern for Pheo. 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 Thoracic or lumbosacral neuritis or radiculitis, unspecified 12/22/2008 Well adult exam 07/21/2017 last done: 05/14/2019 PAST SURGICAL HISTORY Procedure Laterality Date COLONOSCOPY FLX DX W/COLLJ SPEC WHEN PFRMD Colonoscopy FECAL OCCULT BLOOD TEST 07/28/2017 negative STRESS ECHO 04/30/2020 negative TONSILLECTOMY PRIMARY/SECONDARY AGE 12/> Age of 38 ALLERGIES: Sulfa (Sulfonamide Antibiotics), Augmentin [Amoxicillin-Pot Clavulanate], Cats, Echinacea, Pollen, and Ragweed Medications reviewed: Yes FAMILY HISTORY Problem Relation Age of Onset Hypertension Mother Heart Father CHF Heart Paternal Grandmother Stroke Paternal Grandmother Diabetes Paternal Aunt SOCIAL HISTORY: Social History Tobacco Use Smoking status: Never Smokeless tobacco: Never Vaping Use Vaping Use: Never used Substance Use Topics Alcohol use: No Drug use: No Paz denies regular aerobic exercise. She watches her diet for sodium, low fat and low cholesterol most of the time. List of current specialists seen: - Dr. Osborn (vascular) - Dr. Scott End of Live Planning discussed including patients advanced directive wishes: Yes I am willing to follow Paz's advanced directives. PHQ-2 / Depression screen No risk of depresion Functional Ability/Safety Screen 1. Was the patient's timed Up and Go test unsteady or longer than 30 seconds? No 2. Does the patient need help with the phone, transportation, shopping,preparing meals, housework, laundry, medications or managing money? No 3. Does your home have rugs in the hallway, lack of grab bars in the bathroom (Y), lack of handrails on the stairs or have poor lighting? No Hearing Evaluation: within normal limits PHYSICAL EXAM BP 128/68 (BP Site: Left Arm, BP Position: Sitting, BP Cuff Size: Regular Adult) Pulse 84 Resp 16 Ht 151.1 cm (4' 11.5 ) Wt 42.6 kg (94 lb) BMI 18.67 kg/m Alert and oriented X 3: YES Body mass index is 18.67 kg/m . Visual acuity: seeing optho See below ASSESSMENT/PLAN: 72 year old female The following prevention plan was discussed during the office visit and provided to the patient: See below Fabian Mcmullen MD Chief Complaint Patient presents with: Medicare Wellness Exam HPI Paz Harrington is a 72 year old female who presents here today for Chronic Medical Conditions. and Medicare Annual Visit. Patient with Hx of HTN, insomnia, elevated A1c, allergic rhinitis, cold sores as well as those reviewed and addressed below and in ROS. Patient sees [facility] - last visit 08/07/2023. Had a recent T calcium score that came back low/mild. Past medical history, appointments, medications, allergies reviewed. Previous Medical History PAST MEDICAL HISTORY Diagnosis Date Advance directive discussed with patient 07/26/2022 Discussed 07/2022 Age-related osteoporosis without current pathological fracture 11/30/2009 Candidal cheilitis 12/03/2011 Cheilitis: lower lip: along jennifer to lip mucosa 12/03/2011 Chronic allergic rhinitis 07/21/2017 Chronic right-sided low back pain 10/03/2016 Clostridium difficile colitis 2007 Diverticulosis 04/23/2023 Diverticulosis of colon Elevated hemoglobin A1c 05/14/2019 Elevated plasma metanephrines 01/27/2018 Saw endo and no concern for Pheo. 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/2009 Thoracic or lumbosacral neuritis or radiculitis, unspecified 12/22/2008 Well adult exam 07/21/2017 last done: 05/14/2019 Previous Surgical History PAST SURGICAL HISTORY Procedure Laterality Date COLONOSCOPY FLX DX W/COLLJ SPEC WHEN PFRMD Colonoscopy FECAL OCCULT BLOOD TEST 07/28/2017 negative STRESS ECHO 04/30/2020 negative TONSILLECTOMY PRIMARY/SECONDARY AGE 12/> Age of 38 Family History FAMILY HISTORY Problem Relation Age of Onset Hypertension Mother Heart Father CHF Heart Paternal Grandmother Stroke Paternal Grandmother Diabetes Paternal Aunt Patient Allergies ALLERGIES Allergen Reactions Sulfa (Sulfonamide * Rash Augmentin [Amoxicil* Intolerance Patient had diarrhea and possibly a mild skin rash with prior use of Augmentin. She has subsequently taken amoxicillin and tolerated this without adverse reaction. Cats Intolerance Echinacea Swelling Pollen Intolerance Ragweed Intolerance Current Medications Current Outpatient Medications on File Prior to Visit Medication Sig predniSONE (DELTASONE) 20 mg tablet Take 2 tablets by mouth once daily for 5 days. benzonatate (TESSALON PERLES) 100 mg capsule Take 2 capsules by mouth three times a day as needed. albuterol HFA (PROAIR HFA) 90 mcg/actuation inhaler Inhale 2 Puffs as instructed every 6 hours as needed. doxycycline (VIBRA-TABS) 100 mg tablet Take 1 tablet by mouth two times a day for 7 days. lisinopril (ZESTRIL) 40 mg tablet Take 1 tablet by mouth once daily. hydroCHLOROthiazide 12.5 mg capsule Take 1 capsule by mouth once daily. vancomycin (VANCOCIN) 125 mg capsule Take 125 mg by mouth four times daily. Patient is tapering medication. Last dose will be 06/04/23 potassium chloride SR (MICRO-K) 8 mEq cpER Take 1 capsule by mouth twice daily. zolpidem (AMBIEN) 10 mg Take 1 tablet by mouth at bedtime as needed for up to 180 days. FOR INSOMNIA acyclovir (ZOVIRAX) 800 mg tablet 1 tablet three times daily. alendronate (FOSAMAX) 70 mg tablet Take 1 tablet by mouth one time a week. In AM with cup of water on empty stomach. Nothing else by mouth and stay upright for 30 min. aspirin, enteric coated (ASPIRIN, ENTERIC COATED) 81 mg EC tablet Take 1 tablet by mouth once daily. acyclovir (ZOVIRAX) 800 mg tablet 1 tablet three times daily. cholecalciferol (VITAMIN D3) 1,000 unit tab tablet Take 1,000 Units by mouth twice daily. loratadine (CLARITIN) 10 mg tablet Take 1 tablet by mouth once daily. Current Facility-Administered Medications on File Prior to Visit Medication perflutren lipid microspheres 1.3 mL in NaCl (PF) 0.9% 10 mL injection (DEFINITY) sodium chloride 0.9 % (flush) 10 mL (BD POSIFLUSH) Social History Social History Tobacco Use Smoking status: Never Smokeless tobacco: Never Vaping Use Vaping Use: Never used Substance Use Topics Alcohol use: No Drug use: No Review of Symptoms REVIEW OF SYSTEMS GENERAL: No weight loss, malaise or fevers HEENT: Negative for frequent or significant headaches, No changes in hearing or vision, no nose bleeds or other nasal problems. Getting over bronchitis. NECK: Negative for lumps, goiter, pain and significant neck swelling RESPIRATORY: Negative for , hemoptysis, wheezing, COPD, dyspnea or shortness of breath. Slight cough but less. CARDIOVASCULAR: Negative for chest pain, leg swelling, hypertension, CHF or palpitations GI: No nausea, vomiting, or diarrhea, No heartburn or reflux symptoms, and no blood : No history of dysuria, frequency or incontinence MUSCULOSKELETAL: Negative for joint pain or swelling, back pain or muscle pain SKIN: Negative for lesions, rash, and itching PSYCH: Negative for sleep disturbance, mood disorder and recent psychosocial stressors HEMATOLOGY/LYMPHOLOGY: Negative for prolonged bleeding, bruising easily or swollen nodes ENDOCRINE: Negative for cold or heat intolerance, polyuria, polydipsia and goiter NEURO: No history of headaches, syncope, paralysis, seizures or tremors EXAM: BP 128/68 (BP Site: Left Arm, BP Position: Sitting, BP Cuff Size: Regular Adult) Pulse 84 Resp 16 Ht 151.1 cm (4' 11.5 ) Wt 42.6 kg (94 lb) BMI 18.67 kg/m Last 4 Encounter Wt Readings: Date: Wt: 08/08/2023 42.6 kg (94 lb) 08/03/2023 42.6 kg (94 lb) 05/14/2023 41.7 kg (92 lb) 05/07/2023 41.9 kg (92 lb 6 oz) General Appearance: Well appearing, alert, in no acute distress, well-hydrated, well nourished.. Skin: Skin color, texture, turgor normal, no suspicious rashes or lesions. Head: Normocephalic, no masses, lesions, tenderness or abnormalities. Eyes: Anicteric sclera. Pupils are equally round and reactive to light. Extraocular movements are intact. . Ears: External ears TM's normal, canals clear. Nose/Sinuses: Nares normal, septum midline, mucosa normal, no drainage or sinus tenderness. Oropharynx: Lips, mucosa, and tongue normal, teeth and gums normal, oropharynx normal. Neck: Supple, no adenopathy; thyroid symmetric, normal size, no bruits. Lungs: Lungs clear to auscultation. No wheezing, rhonchi, rales.. Heart: RRR without murmur, gallop, or rubs. No ectopy. Abdomen: Normal abdominal exam, Abdomen soft, non-tender. Bowel sounds normal. No masses, organomegaly. Extremities: No deformities, edema, skin discoloration, Good capillary refill. . Musculoskeletal: No joint swelling, deformity, or tenderness. Peripheral Pulses: Normal. Neurologic: Gait normal. Reflexes normal and symmetric. Sensation to light touch and crainal nerves 2-12 intact.. Health Maintenance List RSV Vaccine(1 - 1-dose 60+ series) Never done DTaP,Tdap,Td Vaccine(2 - Td or Tdap) due on 10/31/2022 Covid-19 Vaccine(2022- season) due on 06/15/2023 Mammogram Screening due on 02/28/2024 Annual PCP Team Chronic Disease Visit due on 05/14/2024 BP Controlled (<130/80) due on 08/03/2024 Colorectal Cancer Screening due on 11/24/2025 Diabetes Screening due on 07/30/2026 Lipid Screening due on 07/30/2028 Bone Density Screening Completed Advance Directive Discussion Completed Depression Assessment Completed Shingrix Vaccine Completed Pneumococcal Vaccine: 65+ Completed Influenza Vaccine Discontinued Hepatitis C Screening Discontinued Data reviewed Component Latest Ref Rng & Units 01/24/2023 07/30/2023 Color Yellow Yellow Clarity Clear Clear Glucose, Urine Negative Negative Bilirubin, Urine Negative Negative Ketones, Urine Negative Trace (A) Specific Remer, Ur 1.005 - 1.030 1.020 Hemoglobin/Blood,Ur Negative Negative pH, Urine <8.5 5.5 Protein, Urine Negative Trace (A) Urobilinogen 0.2-1.0 EU/dL 0.2 EU/dL Nitrites Negative Negative Leukest Negative Negative WBC, Urine 0-5 /HPF 0-5 /HPF RBC, Urine 0-2 /HPF 0-2 /HPF Bacteria Negative /HPF Negative Epithelial Cells /HPF None Seen Hyaline Cast 0 /LPF 4-10 /LPF (A) Protein, Total 6.3 - 8.0 g/dL 7.5 Albumin 3.9 - 4.9 g/dL 4.6 Calcium 8.5 - 10.2 mg/dL 9.8 Bilirubin, Total 0.2 - 1.3 mg/dL 0.3 Alkaline Phosphatase 34 - 123 U/L 84 AST 13 - 35 U/L 26 ALT 7 - 38 U/L 14 Glucose 74 - 99 mg/dL 77 BUN 7 - 21 mg/dL 16 Creatinine 0.58 - 0.96 mg/dL 0.80 Sodium 136 - 144 mmol/L 136 Potassium 3.7 - 5.1 mmol/L 4.6 Chloride 97 - 105 mmol/L 101 CO2 22 - 30 mmol/L 23 Anion Gap 9 - 18 mmol/L 12 eGFR >=60 mL/min/1.73m 77 Total Cholesterol, Nonfasting <200 mg/dL 160 163 Triglycerides, Nonfasting <150 mg/dL 121 62 HDL Cholesterol, Nonfasting >39 mg/dL 56 62 LDL Cholesterol, Nonfasting <100 mg/dL 80 89 Non HDL Cholesterol, Nonfasting <130 mg/dL 104 101 VLDL Cholesterol, Nonfasting <30 mg/dL 24 12 Total Chol/HDL Ratio, Nonfasting <5.10 mg/dL 2.86 2.63 LDL/HDL Ratio, Nonfasting <2.54 mg/dL 1.43 1.44 Hemoglobin A1C 4.3 - 5.6 % 5.6 5.7 (H) Estimated Average Glucose mg/dL 114 117 A/P ASSESSMENT/PLAN: 1. Encounter for Medicare annual wellness exam - ICD9: V70.0, ICD10: Z00.00 (primary diagnosis) - Counseled on healthy diet and regular exercise - Calcium intake with supplements or by diet of 1000 mg/day for under 50, 7901-3686 mg/day for 50+ - Patient was counseled [id number] by myself (the billing provider) for the following immunizations and vaccine components, including side effects: Influenza. Patient consents for immunization and understands risks and benefits. A VIS sheet on each immunization was given to the patient. - Follow up for annual exam in one year 2. Essential hypertension, benign - ICD9: 401.1, ICD10: I10 - Controlled - Continue current medications - Recommend home blood pressure monitoring, to bring results to next visit - Encouraged sodium restriction, DASH or Mediterranean diet - Recommend regular aerobic exercise 3. Elevated hemoglobin A1c - ICD9: 790.29, ICD10: R73.09 - discussed life style changes. 4. 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 dysplasia of both carotid arteries (HCC) - ICD9: 447.8, ICD10: I77.3 - seeing vascular. 5. LALO (generalized anxiety disorder) - ICD9: 300.02, ICD10: F41.1 - stable 6. Insomnia, unspecified type - ICD9: 780.52, ICD10: G47.00 - stable 7. Need for vaccination - ICD9: V05.9, ICD10: Z23 - INFLUENZA VACCINE, PRSV FREE, AGE 65+ YR, HIGH DOSE, QUADRIVALENT (FLUZONE HIGH-DOSE): given F/u 6 months routine check A1c I spent a total of 40 minutes on the date of the service which included preparing to see the patient, [id number] patient care, completing clinical documentation, performing a medically appropriate examination, counseling and educating the patient/family/caregiver and ordering medications, tests, or procedures. Patient was asked at end of visit if they had any questions or input regarding the plan of care we had discussed. Fabian Mcmullen MD documented in this encounter [facility] 08-08-2023 Note HNO ID: [id number] Author: Ashu Colmenares LPN Service: ? Author Type: ? Type: Progress Notes Filed: 08/08/2023 8:30 AM Note Text: Scan on 08/07/2023 4:47 PM by Yuly Mills PA-C: CT Scan Scan on 08/07/2023 3:44 PM by Yuly Mills PA-C: CT Scan [facility] 08-08-2023 History of Presen t illness Narrative Scan on 08/07/2023 4:47 PM by Yuly Mills PA-C: CT Scan Scan on 08/07/2023 3:44 PM by Yuly Mills PA-C: CT Scan documented in this encounter [facility] 08-03-2023 Note HNO ID: [id number] Author: Shital Hatfield RT(R) Service: Radiology Author Type: Technologist Type: Progress Notes Filed: 08/03/2023 12:17 PM Note Text: Radiology Service Progress Note PATIENT NAME: Paz Harrington DATE OF SERVICE: August 03, 2023 TIME: 12:08 PM PATIENT IDENTITY VERIFICATION COMPLETED USING TWO (2) IDENTIFIERS: Name and Date of confirmed by patient verbally. FALL SCREENING: Has the patient had 2 falls in the last year or 1 fall with injury or currently using an Ambulatory Assistive Device (Walker, Cane, Wheelchair, Crutches, etc.)? No PATIENT GENDER DATA: Female. status: : No status: NO. PATIENT RELEVANT IMPLANT DATA REVIEWED: Not Applicable RADIOLOGY DEPARTMENT: General X-ray: Exam(s) Completed: Chest X-Ray PERIPHERAL IV DATA: Not applicable SIGNED BY: RT Roxanna(R) August 03, 2023 12:08 PM [facility] 08-03-2023 Note HNO ID: [id number] Author: Nahun Goldman PA-C Service: ? Author Type: Physician Cloud Operations Engineer Type: Progress Notes Filed: 08/03/2023 1:28 PM Note Text: This note was created using English Helper. Subjective Paz Harrington is a 72 year old female. HPI Presents with cough over the past 3 weeks. She states she gets in coughing fits and just cannot stop. She denies any history of asthma or COPD. She is not a smoker. She also has had some nasal congestion. She does have a history of a balloon sinuplasty previously. No fever. No diarrhea or vomiting. She has tried multiple [id number] cough medications without relief. Review of Systems Constitutional: Negative. HENT: Positive for congestion, postnasal drip, rhinorrhea and sinus pressure. Negative for ear pain. Respiratory: Positive for cough. Negative for chest tightness, shortness of breath and wheezing. Cardiovascular: Negative. Gastrointestinal: Negative. Genitourinary: Negative. Musculoskeletal: Negative. All other systems reviewed and are negative. PAST MEDICAL HISTORY Diagnosis Date Advance directive discussed with patient 07/26/2022 Discussed 07/2022 Age-related osteoporosis without current pathological fracture 11/30/2009 Candidal cheilitis 12/03/2011 Cheilitis: lower lip: along jennifer to lip mucosa 12/03/2011 Chronic allergic rhinitis 07/21/2017 Chronic right-sided low back pain 10/03/2016 Clostridium difficile colitis 2007 Diverticulosis 04/23/2023 Diverticulosis of colon Elevated hemoglobin A1c 05/14/2019 Elevated plasma metanephrines 01/27/2018 Saw endo and no concern for Pheo. 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/2009 Thoracic or lumbosacral neuritis or radiculitis, unspecified 12/22/2008 Well adult exam 07/21/2017 last done: 05/14/2019 Current Outpatient Medications Medication Sig Dispense Refill lisinopril (ZESTRIL) 40 mg tablet Take 1 tablet by mouth once daily. 30 tablet 5 hydroCHLOROthiazide 12.5 mg capsule Take 1 capsule by mouth once daily. 90 capsule 1 vancomycin (VANCOCIN) 125 mg capsule Take 125 mg by mouth four times daily. Patient is tapering medication. Last dose will be 06/04/23 potassium chloride SR (MICRO-K) 8 mEq cpER Take 1 capsule by mouth twice daily. 180 capsule 1 zolpidem (AMBIEN) 10 mg Take 1 tablet by mouth at bedtime as needed for up to 180 days. FOR INSOMNIA 90 tablet 1 acyclovir (ZOVIRAX) 800 mg tablet 1 tablet three times daily. 30 tablet 5 alendronate (FOSAMAX) 70 mg tablet Take 1 tablet by mouth one time a week. In AM with cup of water on empty stomach. Nothing else by mouth and stay upright for 30 min. 12 tablet 3 aspirin, enteric coated (ASPIRIN, ENTERIC COATED) 81 mg EC tablet Take 1 tablet by mouth once daily. acyclovir (ZOVIRAX) 800 mg tablet 1 tablet three times daily. 30 tablet 1 cholecalciferol (VITAMIN D3) 1,000 unit tab tablet Take 1,000 Units by mouth twice daily. loratadine (CLARITIN) 10 mg tablet Take 1 tablet by mouth once daily. 30 tablet 11 predniSONE (DELTASONE) 20 mg tablet Take 2 tablets by mouth once daily for 5 days. 10 tablet 0 benzonatate (TESSALON PERLES) 100 mg capsule Take 2 capsules by mouth three times a day as needed. 30 capsule 0 albuterol HFA (PROAIR HFA) 90 mcg/actuation inhaler Inhale 2 Puffs as instructed every 6 hours as needed. 1 Each 0 doxycycline (VIBRA-TABS) 100 mg tablet Take 1 tablet by mouth two times a day for 7 days. 14 tablet 0 Current Facility-Administered Medications Medication Dose Route Frequency Provider Last Rate Last Admin perflutren lipid microspheres 1.3 mL in NaCl (PF) 0.9% 10 mL injection (DEFINITY) INTRAVENOUS DIRECTED PRN Fabian Mcmullen MD sodium chloride 0.9 % (flush) 10 mL (BD POSIFLUSH) 10 mL INTRAVENOUS DIRECTED PRFabian Cervantes MD PAST SURGICAL HISTORY Procedure Laterality Date COLONOSCOPY FLX DX W/COLLJ SPEC WHEN PFRMD Colonoscopy FECAL OCCULT BLOOD TEST 07/28/2017 negative STRESS ECHO 04/30/2020 negative TONSILLECTOMY PRIMARY/SECONDARY AGE 12/> Age of 38 FAMILY HISTORY Problem Relation Age of Onset Hypertension Mother Heart Father CHF Heart Paternal Grandmother Stroke Paternal Grandmother Diabetes Paternal Aunt Social History Tobacco Use Smoking status: Never Smokeless tobacco: Never Vaping Use Vaping Use: Never used Substance Use Topics Alcohol use: No Drug use: No Objective BP 126/73 Pulse 80 Temp 37.4 ?C (99.3 ?F) Resp 20 Wt 42.6 kg (94 lb) SpO2 98% BMI 18.45 kg/m? Physical Exam Vitals reviewed. Constitutional: Appearance: Normal appea (more content not included)... [facility] 08-03-2023 History of Presen t illness Narrative This note was created using English Helper. Subjective Paz Harrington is a 72 year old female. HPI Presents with cough over the past 3 weeks. She states she gets in coughing fits and just cannot stop. She denies any history of asthma or COPD. She is not a smoker. She also has had some nasal congestion. She does have a history of a balloon sinuplasty previously. No fever. No diarrhea or vomiting. She has tried multiple [id number] cough medications without relief. Review of Systems Constitutional: Negative. HENT: Positive for congestion, postnasal drip, rhinorrhea and sinus pressure. Negative for ear pain. Respiratory: Positive for cough. Negative for chest tightness, shortness of breath and wheezing. Cardiovascular: Negative. Gastrointestinal: Negative. Genitourinary: Negative. Musculoskeletal: Negative. All other systems reviewed and are negative. PAST MEDICAL HISTORY Diagnosis Date Advance directive discussed with patient 07/26/2022 Discussed 07/2022 Age-related osteoporosis without current pathological fracture 11/30/2009 Candidal cheilitis 12/03/2011 Cheilitis: lower lip: along jennifer to lip mucosa 12/03/2011 Chronic allergic rhinitis 07/21/2017 Chronic right-sided low back pain 10/03/2016 Clostridium difficile colitis 2007 Diverticulosis 04/23/2023 Diverticulosis of colon Elevated hemoglobin A1c 05/14/2019 Elevated plasma metanephrines 01/27/2018 Saw endo and no concern for Pheo. 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/2009 Thoracic or lumbosacral neuritis or radiculitis, unspecified 12/22/2008 Well adult exam 07/21/2017 last done: 05/14/2019 Current Outpatient Medications Medication Sig Dispense Refill lisinopril (ZESTRIL) 40 mg tablet Take 1 tablet by mouth once daily. 30 tablet 5 hydroCHLOROthiazide 12.5 mg capsule Take 1 capsule by mouth once daily. 90 capsule 1 vancomycin (VANCOCIN) 125 mg capsule Take 125 mg by mouth four times daily. Patient is tapering medication. Last dose will be 06/04/23 potassium chloride SR (MICRO-K) 8 mEq cpER Take 1 capsule by mouth twice daily. 180 capsule 1 zolpidem (AMBIEN) 10 mg Take 1 tablet by mouth at bedtime as needed for up to 180 days. FOR INSOMNIA 90 tablet 1 acyclovir (ZOVIRAX) 800 mg tablet 1 tablet three times daily. 30 tablet 5 alendronate (FOSAMAX) 70 mg tablet Take 1 tablet by mouth one time a week. In AM with cup of water on empty stomach. Nothing else by mouth and stay upright for 30 min. 12 tablet 3 aspirin, enteric coated (ASPIRIN, ENTERIC COATED) 81 mg EC tablet Take 1 tablet by mouth once daily. acyclovir (ZOVIRAX) 800 mg tablet 1 tablet three times daily. 30 tablet 1 cholecalciferol (VITAMIN D3) 1,000 unit tab tablet Take 1,000 Units by mouth twice daily. loratadine (CLARITIN) 10 mg tablet Take 1 tablet by mouth once daily. 30 tablet 11 predniSONE (DELTASONE) 20 mg tablet Take 2 tablets by mouth once daily for 5 days. 10 tablet 0 benzonatate (TESSALON PERLES) 100 mg capsule Take 2 capsules by mouth three times a day as needed. 30 capsule 0 albuterol HFA (PROAIR HFA) 90 mcg/actuation inhaler Inhale 2 Puffs as instructed every 6 hours as needed. 1 Each 0 doxycycline (VIBRA-TABS) 100 mg tablet Take 1 tablet by mouth two times a day for 7 days. 14 tablet 0 Current Facility-Administered Medications Medication Dose Route Frequency Provider Last Rate Last Admin perflutren lipid microspheres 1.3 mL in NaCl (PF) 0.9% 10 mL injection (DEFINITY) INTRAVENOUS DIRECTED PRN Fabian Mcmullen MD sodium chloride 0.9 % (flush) 10 mL (BD POSIFLUSH) 10 mL INTRAVENOUS DIRECTED PRN Fabian Mcmullen MD PAST SURGICAL HISTORY Procedure Laterality Date COLONOSCOPY FLX DX W/COLLJ SPEC WHEN PFRMD Colonoscopy FECAL OCCULT BLOOD TEST 07/28/2017 negative STRESS ECHO 04/30/2020 negative TONSILLECTOMY PRIMARY/SECONDARY AGE 12/> Age of 38 FAMILY HISTORY Problem Relation Age of Onset Hypertension Mother Heart Father CHF Heart Paternal Grandmother Stroke Paternal Grandmother Diabetes Paternal Aunt Social History Tobacco Use Smoking status: Never Smokeless tobacco: Never Vaping Use Vaping Use: Never used Substance Use Topics Alcohol use: No Drug use: No Objective BP 126/73 Pulse 80 Temp 37.4 C (99.3 F) Resp 20 Wt 42.6 kg (94 lb) SpO2 98% BMI 18.45 kg/m Physical Exam Vitals reviewed. Constitutional: Appearance: Normal appearance. HENT: Head: Normocephalic and atraumatic. Right Ear: Tympanic membrane, ear canal and external ear normal. Left Ear: Tympanic membrane, ear canal and external ear normal. Nose: Congestion present. Mouth/Throat: Mouth: Mucous membranes are moist. Pharynx: Oropharynx is clear. Cardiovascular: Rate and Rhythm: Normal rate and regular rhythm. Heart sounds: Normal heart sounds. Pulmonary: Effort: Pulmonary effort is normal. Breath sounds: Normal breath sounds. Musculoskeletal: Cervical back: Neck supple. Skin: General: Skin is warm and dry. Findings: No rash. Neurological: Mental Status: She is alert. Assessment and Plan ASSESSMENT/PLAN: 1. Bronchitis - ICD9: 490, ICD10: J40 (primary diagnosis) Clear. I feel she has a viral bronchitis. Prescription for prednisone, Tessalon, and albuterol. Follow-up with PCP if not improving. Patient acting normally here, in no distress. She is agreeable with plan. - XR CHEST 2V FRONTAL/LAT 2. Nasal congestion - ICD9: 478.19, ICD10: R09.81 Discussed with her I was not certain she has a bacterial sinusitis, to try the oral steroid and continue OTC antihistamine. If not improving in 2 or 3 days may fill the doxycycline. Patient has had C. difficile x2 and want to add to avoid any unneeded antibiotic. Nahun Goldman PA-C documented in this encounter [facility] 07-11-2023 Note HNO ID: [id number] Author: Ashu Colmenares LPN Service: ? Author Type: ? Type: Progress Notes Filed: 07/12/2023 3:03 PM Note Text: Scan on 07/11/2023 11:25 AM by ProviderYuly PA-C: Consultation - Cardiology [facility] 07-11-2023 History of Presen t illness Narrative Scan on 07/11/2023 11:25 AM by ProviderYuly PA-C: Consultation - Cardiology documented in this encounter [facility] 06-26-2023 Miscellaneous Notes Formattin g of this note might be different from the original. Pt notified of same. Pt realized she had an old bottle at home as well as a new bottle so she should have refills left. Ashu Colmenares LPN Let patient know she is not due for a refill of her Ambien any sooner then 08/08/2023. Patient has been identified by name and date of : Yes Requested Prescriptions Pending Prescriptions Disp Refills zolpidem (AMBIEN) 10 mg 90 tablet 1 Sig: Take 1 tablet by mouth at bedtime as needed for up to 180 days. FOR INSOMNIA RX INSTRUCTIONS: Patient aware RX will be sent to pharmacy. No need to notify patient. Heidy Thayer MA Rajwinder 04/2023 Nov 07/2023 Last refill; 01/2023 Patient is requesting 90 days. Patient has been identified by name and date of : Yes Last office visit in this department: 05/14/2023 RX INSTRUCTIONS: Patient aware RX will be sent to pharmacy. No need to notify patient. Patient phones requesting refills as follows: Requested Prescriptions Pending Prescriptions Disp Refills zolpidem (AMBIEN) 10 mg 90 tablet 1 Sig: Take 1 tablet by mouth at bedtime as needed for up to 180 days. FOR INSOMNIA Please review and advise. Nicky Prajapati documented in this encounter [facility] 06-14-2023 Miscellaneous Notes Formattin g of this note is different from the original. Patient has been identified by name and date of : Yes Last office visit in this department: 05/14/2023 RX INSTRUCTIONS: Patient aware RX will be sent to pharmacy. No need to notify patient. Patient phones requesting refills as follows: Requested Prescriptions Pending Prescriptions Disp Refills lisinopril (ZESTRIL) 40 mg tablet 30 tablet 5 Sig: Take 1 tablet by mouth once daily. hydroCHLOROthiazide 12.5 mg capsule 90 capsule 1 Sig: Take 1 capsule by mouth once daily. Please review and advise. Abimbola Allan documented in this encounter [facility] 05-15-2023 Miscellaneous Notes Formattin g of this note might be different from the original. Forms faxed to number given. Patient notified Chey Ponce Cma Forms completed and returned to [place] to be faxed. Type of form: Short-term Disability Form received via fax When form is completed, Fax form to [phone] Form has been forwarded to Nurse Practictioner: Katie Ponce Cma documented in this encounter [facility] 05-14-2023 Miscellaneous Notes Formattin g of this note might be different from the original. Addressed at office visit today. Patient reports her short term disability papers state she will return to work today, but employer won't let her come back unless she has a negative C-Diff result. Employer wants note stating she is negative C-diff. Reports today her stool is still yellow but formed and soft, but she is still having urgency when needing to have BM. Wears depends or pads. Reports she was seen in ER on 04-19, and admitted to Hospital from 04-27 to 05-01 with diverticulosis and c-diff. Has been taking vancomycin. Jayson rashid needs to receive fax today. Pt called in and reports she had been diagnosed with Diverticulitis and was put on antibiotics, then she developed c. Diff. She states she was in the hospital from 04/27-05/01, and is on a tapering dose of Vancomycin. Sh states her stool isn't completely formed and her last day of antibiotic is 06/04/23. She reports her work needs a letter stating that she is strong enough to return to work and if she should go back half days or full days. Then the Pt reports they also need a stool negative for c. Diff. Please call Pt and advise. documented in this encounter [facility] 05-14-2023 Note HNO ID: [id number] Author: Katie Garcia APRN.GIS GEOGRAPHER Service: ? Author Type: Nurse Practitioner Type: Progress Notes Filed: 05/14/2023 10:52 AM Note Text: Chief Complaint Patient presents with: Follow Up HPI Paz Harrington is a 72 year old female who presents here today for Above Complaints.. Patient presents for follow up. Patient was hospitalized for diverticulitis and developed C diff from antibiotics. Patient has been off work since then as she has been on vancomycin for the C diff. Patient reports her stools are still pudding like and yellow but no longer liquid. Patient continues to take vancomycin, she is currently down to twice daily then down to one dose daily for the next days then every other day for two weeks. Patient reports she is here to find out if it is ok for her to go back to work or if she needs her short term disability extended. Past medical history, appointments, medications, allergies reviewed. Previous Medical History PAST MEDICAL HISTORY Diagnosis Date Advance directive discussed with patient 07/26/2022 Discussed 07/2022 Age-related osteoporosis without current pathological fracture 11/30/2009 Candidal cheilitis 12/03/2011 Cheilitis: lower lip: along jennifer to lip mucosa 12/03/2011 Chronic allergic rhinitis 07/21/2017 Chronic right-sided low back pain 10/03/2016 Clostridium difficile colitis 2007 Diverticulosis 04/23/2023 Diverticulosis of colon Elevated hemoglobin A1c 05/14/2019 Elevated plasma metanephrines 01/27/2018 Saw endo and no concern for Pheo. 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/2009 Thoracic or lumbosacral neuritis or radiculitis, unspecified 12/22/2008 Well adult exam 07/21/2017 last done: 05/14/2019 Previous Surgical History PAST SURGICAL HISTORY Procedure Laterality Date COLONOSCOPY FLX DX W/COLLJ SPEC WHEN PFRMD Colonoscopy FECAL OCCULT BLOOD TEST 07/28/2017 negative STRESS ECHO 04/30/2020 negative TONSILLECTOMY PRIMARY/SECONDARY AGE 12/> Age of 38 Family History FAMILY HISTORY Problem Relation Age of Onset Hypertension Mother Heart Father CHF Heart Paternal Grandmother Stroke Paternal Grandmother Diabetes Paternal Aunt Patient Allergies ALLERGIES Allergen Reactions Sulfa (Sulfonamide * Rash Augmentin [Amoxicil* Intolerance Patient had diarrhea and possibly a mild skin rash with prior use of Augmentin. She has subsequently taken amoxicillin and tolerated this without adverse reaction. Cats Intolerance Echinacea Swelling Pollen Intolerance Ragweed Intolerance Current Medications Current Outpatient Medications on File Prior to Visit Medication Sig vancomycin (VANCOCIN) 125 mg capsule Take 125 mg by mouth four times daily. Patient is tapering medication. Last dose will be 06/04/23 potassium chloride SR (MICRO-K) 8 mEq cpER Take 1 capsule by mouth twice daily. zolpidem (AMBIEN) 10 mg Take 1 tablet by mouth at bedtime as needed for up to 180 days. FOR INSOMNIA acyclovir (ZOVIRAX) 800 mg tablet 1 tablet three times daily. lisinopril (ZESTRIL) 40 mg tablet Take 1 tablet by mouth once daily. hydroCHLOROthiazide (HYDRODIURIL, ESIDRIX) 12.5 mg capsule Take 1 capsule by mouth once daily. alendronate (FOSAMAX) 70 mg tablet Take 1 tablet by mouth one time a week. In AM with cup of water on empty stomach. Nothing else by mouth and stay upright for 30 min. aspirin, enteric coated (ASPIRIN, ENTERIC COATED) 81 mg EC tablet Take 1 tablet by mouth once daily. acyclovir (ZOVIRAX) 800 mg tablet 1 tablet three times daily. cholecalciferol (VITAMIN D3) 1,000 unit tab tablet Take 1,000 Units by mouth twice daily. loratadine (CLARITIN) 10 mg tablet Take 1 tablet by mouth once daily. Current Facility-Administered Medications on File Prior to Visit Medication perflutren lipid microspheres 1.3 mL in NaCl (PF) 0.9% 10 mL injection (DEFINITY) sodium chloride 0.9 % (flush) 10 mL (BD POSIFLUSH) Social History Social History Tobacco Use Smoking status: Never Smokeless tobacco: Never Vaping Use Vaping Use: Never used Substance Use Topics Alcohol use: No Drug use: No Review of Symptoms REVIEW OF SYSTEMS SEE HPI EXAM: BP 120/64 Pulse 72 Resp 14 Wt 41.7 kg (92 lb) BMI 18.06 kg/m? General Appearance: Well appearing, alert, in no acute distress, well-hydrated, well nourished.. Abdomen: Normal abdominal exam, Abdomen soft, non-tender. Bowel sounds normal. No masses, organomegaly Health Maintenance List DTAP,TDAP,TD(2 - Td or Tdap) due on 10/31/2022 COVID-19 VACCINE(5 - Pfizer series) due on (more content not included)... [facility] 05-14-2023 History of Presen t illness Narrative Chief Complaint Patient presents with: Follow Up HPI Paz Harrington is a 72 year old female who presents here today for Above Complaints.. Patient presents for follow up. Patient was hospitalized for diverticulitis and developed C diff from antibiotics. Patient has been off work since then as she has been on vancomycin for the C diff. Patient reports her stools are still pudding like and yellow but no longer liquid. Patient continues to take vancomycin, she is currently down to twice daily then down to one dose daily for the next days then every other day for two weeks. Patient reports she is here to find out if it is ok for her to go back to work or if she needs her short term disability extended. Past medical history, appointments, medications, allergies reviewed. Previous Medical History PAST MEDICAL HISTORY Diagnosis Date Advance directive discussed with patient 07/26/2022 Discussed 07/2022 Age-related osteoporosis without current pathological fracture 11/30/2009 Candidal cheilitis 12/03/2011 Cheilitis: lower lip: along jennifer to lip mucosa 12/03/2011 Chronic allergic rhinitis 07/21/2017 Chronic right-sided low back pain 10/03/2016 Clostridium difficile colitis 2007 Diverticulosis 04/23/2023 Diverticulosis of colon Elevated hemoglobin A1c 05/14/2019 Elevated plasma metanephrines 01/27/2018 Saw endo and no concern for Pheo. 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/2009 Thoracic or lumbosacral neuritis or radiculitis, unspecified 12/22/2008 Well adult exam 07/21/2017 last done: 05/14/2019 Previous Surgical History PAST SURGICAL HISTORY Procedure Laterality Date COLONOSCOPY FLX DX W/COLLJ SPEC WHEN PFRMD Colonoscopy FECAL OCCULT BLOOD TEST 07/28/2017 negative STRESS ECHO 04/30/2020 negative TONSILLECTOMY PRIMARY/SECONDARY AGE 12/> Age of 38 Family History FAMILY HISTORY Problem Relation Age of Onset Hypertension Mother Heart Father CHF Heart Paternal Grandmother Stroke Paternal Grandmother Diabetes Paternal Aunt Patient Allergies ALLERGIES Allergen Reactions Sulfa (Sulfonamide * Rash Augmentin [Amoxicil* Intolerance Patient had diarrhea and possibly a mild skin rash with prior use of Augmentin. She has subsequently taken amoxicillin and tolerated this without adverse reaction. Cats Intolerance Echinacea Swelling Pollen Intolerance Ragweed Intolerance Current Medications Current Outpatient Medications on File Prior to Visit Medication Sig vancomycin (VANCOCIN) 125 mg capsule Take 125 mg by mouth four times daily. Patient is tapering medication. Last dose will be 06/04/23 potassium chloride SR (MICRO-K) 8 mEq cpER Take 1 capsule by mouth twice daily. zolpidem (AMBIEN) 10 mg Take 1 tablet by mouth at bedtime as needed for up to 180 days. FOR INSOMNIA acyclovir (ZOVIRAX) 800 mg tablet 1 tablet three times daily. lisinopril (ZESTRIL) 40 mg tablet Take 1 tablet by mouth once daily. hydroCHLOROthiazide (HYDRODIURIL, ESIDRIX) 12.5 mg capsule Take 1 capsule by mouth once daily. alendronate (FOSAMAX) 70 mg tablet Take 1 tablet by mouth one time a week. In AM with cup of water on empty stomach. Nothing else by mouth and stay upright for 30 min. aspirin, enteric coated (ASPIRIN, ENTERIC COATED) 81 mg EC tablet Take 1 tablet by mouth once daily. acyclovir (ZOVIRAX) 800 mg tablet 1 tablet three times daily. cholecalciferol (VITAMIN D3) 1,000 unit tab tablet Take 1,000 Units by mouth twice daily. loratadine (CLARITIN) 10 mg tablet Take 1 tablet by mouth once daily. Current Facility-Administered Medications on File Prior to Visit Medication perflutren lipid microspheres 1.3 mL in NaCl (PF) 0.9% 10 mL injection (DEFINITY) sodium chloride 0.9 % (flush) 10 mL (BD POSIFLUSH) Social History Social History Tobacco Use Smoking status: Never Smokeless tobacco: Never Vaping Use Vaping Use: Never used Substance Use Topics Alcohol use: No Drug use: No Review of Symptoms REVIEW OF SYSTEMS SEE HPI EXAM: BP 120/64 Pulse 72 Resp 14 Wt 41.7 kg (92 lb) BMI 18.06 kg/m General Appearance: Well appearing, alert, in no acute distress, well-hydrated, well nourished.. Abdomen: Normal abdominal exam, Abdomen soft, non-tender. Bowel sounds normal. No masses, organomegaly Health Maintenance List DTAP,TDAP,TD(2 - Td or Tdap) due on 10/31/2022 COVID-19 VACCINE(5 - Pfizer series) due on 12/10/2022 MAMMOGRAM due on 02/28/2024 ANNUAL PCP TEAM CHRONIC DISEASE VISIT due on 05/07/2024 BP CONTROLLED (<130/80) due on 05/07/2024 COLORECTAL CANCER SCREENING due on 11/24/2025 DIABETES SCREEN due on 05/07/2026 LIPID SCREEN due on 01/25/2028 BONE DENSITY Completed ADVANCE DIRECTIVE DISCUSSION Completed DEPRESSION ASSESSMENT Completed SHINGRIX VACCINE Completed PNEUMOCOCCAL: 65+ Completed INFLUENZA Discontinued HEPATITIS C SCREENING Discontinued ASSESSMENT/PLAN: 1. C. difficile colitis - ICD9: 008.45, ICD10: A04.72 - patient written off work for 1 more week as she is still having some discomfort and continuing to have soft stools. Katie Garcia APRN.SONDRA documented in this encounter [facility] 05-07-2023 Note HNO ID: [id number] Author: oCnstance Klein PA-C Service: ? Author Type: Physician Cloud Operations Engineer Type: Progress Notes Filed: 05/07/2023 2:18 PM Note Text: Chief Complaint Patient presents with: Hospital F/U HPI Paz Harrington is a 72 year old female who presents here today for Hospital Discharge Follow up.. Patient has been in hospital twice in the past month. Initially presented on 04/19/23 for abdominal pain and was dx with diverticulitis by ER and discharged home. Tx with augmentin. After about 1 week, diarrhea worsened and on 04/27 she went back to ER due to the diarrhea. She was hypotensive with EVELYN and was found to have c. Diff. She was started on vanco and currently is taking an extended vanco taper for the next 3 weeks. She is still having loose stool. But is feeling better. Still has little energy. Past medical history, appointments, medications, allergies reviewed. Previous Medical History PAST MEDICAL HISTORY Diagnosis Date Advance directive discussed with patient 07/26/2022 Discussed 07/2022 Age-related osteoporosis without current pathological fracture 11/30/2009 Candidal cheilitis 12/03/2011 Cheilitis: lower lip: along jennifer to lip mucosa 12/03/2011 Chronic allergic rhinitis 07/21/2017 Chronic right-sided low back pain 10/03/2016 Clostridium difficile colitis 2007 Diverticulosis 04/23/2023 Diverticulosis of colon Elevated hemoglobin A1c 05/14/2019 Elevated plasma metanephrines 01/27/2018 Saw endo and no concern for Pheo. 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/2009 Thoracic or lumbosacral neuritis or radiculitis, unspecified 12/22/2008 Well adult exam 07/21/2017 last done: 05/14/2019 Previous Surgical History PAST SURGICAL HISTORY Procedure Laterality Date COLONOSCOPY FLX DX W/COLLJ SPEC WHEN PFRMD Colonoscopy FECAL OCCULT BLOOD TEST 07/28/2017 negative STRESS ECHO 04/30/2020 negative TONSILLECTOMY PRIMARY/SECONDARY AGE 12/> Age of 38 Family History FAMILY HISTORY Problem Relation Age of Onset Hypertension Mother Heart Father CHF Heart Paternal Grandmother Stroke Paternal Grandmother Diabetes Paternal Aunt Patient Allergies ALLERGIES Allergen Reactions Sulfa (Sulfonamide * Rash Augmentin [Amoxicil* Intolerance Patient had diarrhea and possibly a mild skin rash with prior use of Augmentin. She has subsequently taken amoxicillin and tolerated this without adverse reaction. Cats Intolerance Echinacea Swelling Pollen Intolerance Ragweed Intolerance Current Medications Current Outpatient Medications on File Prior to Visit Medication Sig vancomycin (VANCOCIN) 125 mg capsule Take 125 mg by mouth four times daily. Patient is tapering medication. Last dose will be 06/04/23 potassium chloride SR (MICRO-K) 8 mEq cpER Take 1 capsule by mouth twice daily. zolpidem (AMBIEN) 10 mg Take 1 tablet by mouth at bedtime as needed for up to 180 days. FOR INSOMNIA acyclovir (ZOVIRAX) 800 mg tablet 1 tablet three times daily. lisinopril (ZESTRIL) 40 mg tablet Take 1 tablet by mouth once daily. hydroCHLOROthiazide (HYDRODIURIL, ESIDRIX) 12.5 mg capsule Take 1 capsule by mouth once daily. alendronate (FOSAMAX) 70 mg tablet Take 1 tablet by mouth one time a week. In AM with cup of water on empty stomach. Nothing else by mouth and stay upright for 30 min. aspirin, enteric coated (ASPIRIN, ENTERIC COATED) 81 mg EC tablet Take 1 tablet by mouth once daily. acyclovir (ZOVIRAX) 800 mg tablet 1 tablet three times daily. loratadine (CLARITIN) 10 mg tablet Take 1 tablet by mouth once daily. amoxicillin-clavulanic acid (AUGMENTIN) 875-125 mg per tablet Take 1 tablet by mouth twice daily. Take 1 tablet my mouth every 12 hours (Patient not taking: Reported on 05/07/2023) multivitamin/iron/folic acid (CENTRUM WOMEN ORAL) Take by mouth. (Patient not taking: Reported on 05/07/2023) psyllium husk (DAILY FIBER ORAL) Take by mouth. phylicia-fiber daily (Patient not taking: No sig reported) cholecalciferol (VITAMIN D3) 1,000 unit tab tablet Take 1,000 Units by mouth twice daily. acetaminophen/chlorpheniramine (CORICIDIN HBP COLD AND FLU ORAL) Take by mouth. (Patient not taking: Reported on 05/07/2023) GYMNEMA LEAF, BULK, MISC (Patient not taking: Reported on 05/07/2023) Current Facility-Administered Medications on File Prior to Visit Medication perflutren lipid microspheres 1.3 mL in NaCl (PF) 0.9% 10 mL injection (DEFINITY) sodium chloride 0.9 % (flush) 10 mL (BD POSIFLUSH) Social History Social History Tobacco Use Smoking status: Never Smokeless tobacco: Jessi (more content not included)... [facility] 04-27-2023 Note HNO ID: [id number] Author: Marianela Petersen Ma Service: ? Author Type: ? Type: Progress Notes Filed: 04/29/2023 1:00 PM Note Text: Scan on 04/27/2023 9:38 AM by ProviderYuly PA-C: Consultation - Emergency Medicine Scan on 04/27/2023 11:11 AM by ProviderYuly PA-C Scan on 04/27/2023 8:23 AM by ProviderYuly PA-C: CT Scan [facility] 04-27-2023 History of Presen t illness Narrative Scan on 04/27/2023 9:38 AM by ProviderYuly PA-C: Consultation - Emergency Medicine Scan on 04/27/2023 11:11 AM by ProviderYuly PA-C Scan on 04/27/2023 8:23 AM by ProviderYuly PAJanetteC: CT Scan documented in this encounter [facility] 04-25-2023 Miscellaneous Notes Formattin g of this note might be different from the original. Pt notified of response & voiced understanding. Angela Stapleton LPN Possibly another 2-5 days. The fact it has improved is good. Patient calling to say she has taken four Imodium AD since Sunday afternoon. She is following the BRAT diet and is drinking lots of fluid including electrolyte water and broth. She says she is no longer having frequent diarrhea. She is only having diarrhea when she eats something. She had a little bit of apple sauce today and had diarrhea and gas immediately after eating. She is asking how long she should expect to have diarrhea? Liyah Gaming, RN documented in this encounter [facility] 04-23-2023 Note HNO ID: [id number] Author: Fabian Mcmullen MD Service: ? Author Type: Physician Type: Progress Notes Filed: 04/23/2023 3:29 PM Note Text: Chief Complaint Patient presents with: ED Follow-up HPI Paz Harrington is a 72 year old female who presents here today for ER Follow Up.. Office visit - Er follow up Patient was in [facility] for abdomenal pain/dehydration/felt like she was going to pass out so she called the squad. Had CT that showed diverticulosis with a small area of diverticulitis. She is currently on a clear fluids. Tried a piece of toast yesterday and instant diarrhea. Trying to keep up on her fluids as to not get dehydrated. Patient is currently taking Augmentin. Today is the first day that she has not had any abdominal pain and no fevers. No nausea or vomiting. Office visit - 6 month follow up 01/2023 Patient with Hx of HTN, insomnia, elevated A1c, allergic rhinitis, cold sores as well as those reviewed and addressed below and in ROS. Patient is here for 6 month follow up. Patient has questions regarding aspirin and why and results on ECHO/US in 07/2022. Past medical history, appointments, medications, allergies reviewed. Previous Medical History PAST MEDICAL HISTORY Diagnosis Date Advance directive discussed with patient 07/26/2022 Discussed 07/2022 Age-related osteoporosis without current pathological fracture 11/30/2009 Candidal cheilitis 12/03/2011 Cheilitis: lower lip: along jennifer to lip mucosa 12/03/2011 Chronic allergic rhinitis 07/21/2017 Chronic right-sided low back pain 10/03/2016 Clostridium difficile colitis 2007 Diverticulosis of colon Elevated hemoglobin A1c 05/14/2019 Elevated plasma metanephrines 01/27/2018 Saw endo and no concern for Pheo. 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/2009 Thoracic or lumbosacral neuritis or radiculitis, unspecified 12/22/2008 Well adult exam 07/21/2017 last done: 05/14/2019 Previous Surgical History PAST SURGICAL HISTORY Procedure Laterality Date COLONOSCOPY FLX DX W/COLLJ SPEC WHEN PFRMD Colonoscopy FECAL OCCULT BLOOD TEST 07/28/2017 negative STRESS ECHO 04/30/2020 negative TONSILLECTOMY PRIMARY/SECONDARY AGE 12/> Age of 38 Family History FAMILY HISTORY Problem Relation Age of Onset Hypertension Mother Heart Father CHF Heart Paternal Grandmother Stroke Paternal Grandmother Diabetes Paternal Aunt Patient Allergies ALLERGIES Allergen Reactions Sulfa (Sulfonamide * Rash Augmentin [Amoxicil* Intolerance Patient had diarrhea and possibly a mild skin rash with prior use of Augmentin. She has subsequently taken amoxicillin and tolerated this without adverse reaction. Cats Intolerance Echinacea Swelling Pollen Intolerance Ragweed Intolerance Current Medications Current Outpatient Medications on File Prior to Visit Medication Sig potassium chloride SR (MICRO-K) 8 mEq cpER Take 1 capsule by mouth twice daily. zolpidem (AMBIEN) 10 mg Take 1 tablet by mouth at bedtime as needed for up to 180 days. FOR INSOMNIA acyclovir (ZOVIRAX) 800 mg tablet 1 tablet three times daily. lisinopril (ZESTRIL) 40 mg tablet Take 1 tablet by mouth once daily. hydroCHLOROthiazide (HYDRODIURIL, ESIDRIX) 12.5 mg capsule Take 1 capsule by mouth once daily. alendronate (FOSAMAX) 70 mg tablet Take 1 tablet by mouth one time a week. In AM with cup of water on empty stomach. Nothing else by mouth and stay upright for 30 min. aspirin, enteric coated (ASPIRIN, ENTERIC COATED) 81 mg EC tablet Take 1 tablet by mouth once daily. multivitamin/iron/folic acid (CENTRUM WOMEN ORAL) Take by mouth. acyclovir (ZOVIRAX) 800 mg tablet 1 tablet three times daily. psyllium husk (DAILY FIBER ORAL) Take by mouth. phylicia-fiber daily (Patient not taking: No sig reported) cholecalciferol (VITAMIN D3) 1,000 unit tab tablet Take 1,000 Units by mouth twice daily. acetaminophen/chlorpheniramine (CORICIDIN HBP COLD AND FLU ORAL) Take by mouth. GYMNEMA LEAF, BULK, MISC loratadine (CLARITIN) 10 mg tablet Take 1 tablet by mouth once daily. Current Facility-Administered Medications on File Prior to Visit Medication perflutren lipid microspheres 1.3 mL in NaCl (PF) 0.9% 10 mL injection (DEFINITY) sodium chloride 0.9 % (flush) 10 mL (BD POSIFLUSH) Social History Social History Tobacco Use Smoking status: Never Smokeless tobacco: Never Vaping Use Vaping Use: Never used Substance Use Topics Alcohol use: No Drug use: No Review of Symptoms REVIEW OF SYSTEMS See HPI EXAM: BP 116/64 (BP Site: Right Arm, BP Position: Sitting, B (more content not included)... [facility] 04-23-2023 Instructions Fabian Mcmullen MD - 04/23/2023 2:02 PM EDT Ok to take imodium AD one tab every 8 hrs as needed. Stop if feel constipated. documented in this encounter [facility] 04-23-2023 History of Presen t illness Narrative Chief Complaint Patient presents with: ED Follow-up HPI Paz Harrington is a 72 year old female who presents here today for ER Follow Up.. Office visit - Er follow up Patient was in [facility] for abdomenal pain/dehydration/felt like she was going to pass out so she called the squad. Had CT that showed diverticulosis with a small area of diverticulitis. She is currently on a clear fluids. Tried a piece of toast yesterday and instant diarrhea. Trying to keep up on her fluids as to not get dehydrated. Patient is currently taking Augmentin. Today is the first day that she has not had any abdominal pain and no fevers. No nausea or vomiting. Office visit - 6 month follow up 01/2023 Patient with Hx of HTN, insomnia, elevated A1c, allergic rhinitis, cold sores as well as those reviewed and addressed below and in ROS. Patient is here for 6 month follow up. Patient has questions regarding aspirin and why and results on ECHO/US in 07/2022. Past medical history, appointments, medications, allergies reviewed. Previous Medical History PAST MEDICAL HISTORY Diagnosis Date Advance directive discussed with patient 07/26/2022 Discussed 07/2022 Age-related osteoporosis without current pathological fracture 11/30/2009 Candidal cheilitis 12/03/2011 Cheilitis: lower lip: along jennifer to lip mucosa 12/03/2011 Chronic allergic rhinitis 07/21/2017 Chronic right-sided low back pain 10/03/2016 Clostridium difficile colitis 2007 Diverticulosis of colon Elevated hemoglobin A1c 05/14/2019 Elevated plasma metanephrines 01/27/2018 Saw endo and no concern for Pheo. 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/2009 Thoracic or lumbosacral neuritis or radiculitis, unspecified 12/22/2008 Well adult exam 07/21/2017 last done: 05/14/2019 Previous Surgical History PAST SURGICAL HISTORY Procedure Laterality Date COLONOSCOPY FLX DX W/COLLJ SPEC WHEN PFRMD Colonoscopy FECAL OCCULT BLOOD TEST 07/28/2017 negative STRESS ECHO 04/30/2020 negative TONSILLECTOMY PRIMARY/SECONDARY AGE 12/> Age of 38 Family History FAMILY HISTORY Problem Relation Age of Onset Hypertension Mother Heart Father CHF Heart Paternal Grandmother Stroke Paternal Grandmother Diabetes Paternal Aunt Patient Allergies ALLERGIES Allergen Reactions Sulfa (Sulfonamide * Rash Augmentin [Amoxicil* Intolerance Patient had diarrhea and possibly a mild skin rash with prior use of Augmentin. She has subsequently taken amoxicillin and tolerated this without adverse reaction. Cats Intolerance Echinacea Swelling Pollen Intolerance Ragweed Intolerance Current Medications Current Outpatient Medications on File Prior to Visit Medication Sig potassium chloride SR (MICRO-K) 8 mEq cpER Take 1 capsule by mouth twice daily. zolpidem (AMBIEN) 10 mg Take 1 tablet by mouth at bedtime as needed for up to 180 days. FOR INSOMNIA acyclovir (ZOVIRAX) 800 mg tablet 1 tablet three times daily. lisinopril (ZESTRIL) 40 mg tablet Take 1 tablet by mouth once daily. hydroCHLOROthiazide (HYDRODIURIL, ESIDRIX) 12.5 mg capsule Take 1 capsule by mouth once daily. alendronate (FOSAMAX) 70 mg tablet Take 1 tablet by mouth one time a week. In AM with cup of water on empty stomach. Nothing else by mouth and stay upright for 30 min. aspirin, enteric coated (ASPIRIN, ENTERIC COATED) 81 mg EC tablet Take 1 tablet by mouth once daily. multivitamin/iron/folic acid (CENTRUM WOMEN ORAL) Take by mouth. acyclovir (ZOVIRAX) 800 mg tablet 1 tablet three times daily. psyllium husk (DAILY FIBER ORAL) Take by mouth. phylicia-fiber daily (Patient not taking: No sig reported) cholecalciferol (VITAMIN D3) 1,000 unit tab tablet Take 1,000 Units by mouth twice daily. acetaminophen/chlorpheniramine (CORICIDIN HBP COLD AND FLU ORAL) Take by mouth. GYMNEMA LEAF, BULK, MISC loratadine (CLARITIN) 10 mg tablet Take 1 tablet by mouth once daily. Current Facility-Administered Medications on File Prior to Visit Medication perflutren lipid microspheres 1.3 mL in NaCl (PF) 0.9% 10 mL injection (DEFINITY) sodium chloride 0.9 % (flush) 10 mL (BD POSIFLUSH) Social History Social History Tobacco Use Smoking status: Never Smokeless tobacco: Never Vaping Use Vaping Use: Never used Substance Use Topics Alcohol use: No Drug use: No Review of Symptoms REVIEW OF SYSTEMS See HPI EXAM: BP 116/64 (BP Site: Right Arm, BP Position: Sitting, BP Cuff Size: Regular Adult) Pulse 89 Temp 36.9 C (98.5 F) Resp 18 Wt 43.1 kg (95 lb) SpO2 99% BMI 18.55 kg/m General Appearance: Well appearing, alert, in no acute distress, well-hydrated, well nourished.. Abdomen: Abdomen soft, has mild tenderness in the left lower abdomen (per patient much improved).. Bowel sounds normal. No masses, organomegaly. Health Maintenance List DTAP,TDAP,TD(2 - Td or Tdap) due on 10/31/2022 COVID-19 VACCINE(5 - Pfizer series) due on 12/10/2022 MAMMOGRAM due on 02/28/2024 ANNUAL PCP TEAM CHRONIC DISEASE VISIT due on 03/08/2024 BP CONTROLLED (<130/80) due on 03/08/2024 COLORECTAL CANCER SCREENING due on 11/24/2025 DIABETES SCREEN due on 01/24/2026 LIPID SCREEN due on 01/25/2028 BONE DENSITY Completed ADVANCE DIRECTIVE DISCUSSION Completed DEPRESSION ASSESSMENT Completed SHINGRIX VACCINE Completed PNEUMOCOCCAL: 65+ Completed INFLUENZA Discontinued HEPATITIS C SCREENING Discontinued Data reviewed A/P ASSESSMENT/PLAN: 1. Diverticulitis - ICD9: 562.11, ICD10: K57.92 - patient to complete the Antibiotic. - advised on Brat diet. - advised Imodium AD no more then 1 every 8 hrs but stop if feels constipated. Fabian Mcmullen MD documented in this encounter [facility] 04-20-2023 Note HNO ID: [id number] Author: Marianela Petersen Ma Service: ? Author Type: ? Type: Progress Notes Filed: 04/20/2023 12:25 PM Note Text: Scan on 04/19/2023 1:01 PM by External Provider, PA-C: Consultation - Vascular Medicine/Vascular Surgery [facility] 04-20-2023 History of Presen t illness Narrative Scan on 04/19/2023 1:01 PM by External Provider, PA-C: Consultation - Vascular Medicine/Vascular Surgery documented in this encounter [facility] 04-19-2023 Note HNO ID: [id number] Author: Sumi Botello LPN Service: ? Author Type: ? Type: Progress Notes Filed: 04/19/2023 11:53 AM Note Text: Scan on 04/19/2023 9:31 AM by External Provider, PA-C: CT Scan Scan on 04/19/2023 10:19 AM by External Provider, PA-C: Consultation - Emergency Medicine [facility] 04-19-2023 History of Presen t illness Narrative Scan on 04/19/2023 9:31 AM by External Provider, PA-C: CT Scan Scan on 04/19/2023 10:19 AM by External Provider, PA-C: Consultation - Emergency Medicine documented in this encounter [facility] 03-19-2023 Note HNO ID: [id number] Author: Heidy Thayer MA Service: ? Author Type: Crane Mechanic Type: Progress Notes Filed: 03/19/2023 9:32 PM Note Text: Scan on 03/15/2023 2:21 PM by External Provider, PA-C: Consultation - Vascular Medicine/Vascular Surgery Scan on 03/15/2023 4:10 PM by External Provider, RISHABH: Cindy Thayer MA [facility] 03-19-2023 History of Presen t illness Narrative Scan on 03/15/2023 2:21 PM by External Provider, ELVIS-C: Consultation - Vascular Medicine/Vascular Surgery Scan on 03/15/2023 4:10 PM by External Provider, RISHABH: Cindy Thayer MA documented in this encounter [facility] 03-08-2023 Note HNO ID: [id number] Author: Constance Klein PA-C Service: ? Author Type: Physician Cloud Operations Engineer Type: Progress Notes Filed: 03/08/2023 12:39 PM Note Text: Chief Complaint Patient presents with: Recheck: Blood pressure HPI Paz Harrington is a 72 year old female who presents here today for BP recheck. . At last visit we increased lisinopril to 40mg. Patient has been doing well on this. She plans on cutting back her work hours. Past medical history, appointments, medications, allergies reviewed. Previous Medical History PAST MEDICAL HISTORY Diagnosis Date Advance directive discussed with patient 07/26/2022 Discussed 07/2022 Age-related osteoporosis without current pathological fracture 11/30/2009 Candidal cheilitis 12/03/2011 Cheilitis: lower lip: along jennifer to lip mucosa 12/03/2011 Chronic allergic rhinitis 07/21/2017 Chronic right-sided low back pain 10/03/2016 Clostridium difficile colitis 2007 Elevated hemoglobin A1c 05/14/2019 Elevated plasma metanephrines 01/27/2018 Saw endo and no concern for Pheo. Essential hypertension, benign 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 dysplasia of both carotid arteries (HCC) 08/03/2022 US 07/2022 LALO (generalized anxiety disorder) 12/29/2020 Insomnia 11/29/2016 Lactose intolerance Lactose intolerance Mild AI (aortic insufficiency) 07/27/2022 Echo 07/2022 Normocytic anemia 09/29/2016 just in 2015 Osteopenia 11/30/2009 Pruritus 12/03/2011 Recurrent cold sores 11/30/2009 Thoracic or lumbosacral neuritis or radiculitis, unspecified 12/22/2008 Well adult exam 07/21/2017 last done: 05/14/2019 Previous Surgical History PAST SURGICAL HISTORY Procedure Laterality Date COLONOSCOPY FLX DX W/COLLJ SPEC WHEN PFRMD Colonoscopy FECAL OCCULT BLOOD TEST 07/28/2017 negative STRESS ECHO 04/30/2020 negative TONSILLECTOMY PRIMARY/SECONDARY AGE 12/> Age of 38 Family History FAMILY HISTORY Problem Relation Age of Onset Hypertension Mother Heart Father CHF Heart Paternal Grandmother Stroke Paternal Grandmother Diabetes Paternal Aunt Patient Allergies ALLERGIES Allergen Reactions Sulfa (Sulfonamide * Rash Augmentin [Amoxicil* Intolerance Patient had diarrhea and possibly a mild skin rash with prior use of Augmentin. She has subsequently taken amoxicillin and tolerated this without adverse reaction. Cats Intolerance Echinacea Swelling Pollen Intolerance Ragweed Intolerance Current Medications Current Outpatient Medications on File Prior to Visit Medication Sig potassium chloride SR (MICRO-K) 8 mEq cpER Take 1 capsule by mouth twice daily. zolpidem (AMBIEN) 10 mg Take 1 tablet by mouth at bedtime as needed for up to 180 days. FOR INSOMNIA acyclovir (ZOVIRAX) 800 mg tablet 1 tablet three times daily. lisinopril (ZESTRIL) 40 mg tablet Take 1 tablet by mouth once daily. hydroCHLOROthiazide (HYDRODIURIL, ESIDRIX) 12.5 mg capsule Take 1 capsule by mouth once daily. alendronate (FOSAMAX) 70 mg tablet Take 1 tablet by mouth one time a week. In AM with cup of water on empty stomach. Nothing else by mouth and stay upright for 30 min. aspirin, enteric coated (ASPIRIN, ENTERIC COATED) 81 mg EC tablet Take 1 tablet by mouth once daily. multivitamin/iron/folic acid (CENTRUM WOMEN ORAL) Take by mouth. acyclovir (ZOVIRAX) 800 mg tablet 1 tablet three times daily. cholecalciferol (VITAMIN D3) 1,000 unit tab tablet Take 1,000 Units by mouth twice daily. acetaminophen/chlorpheniramine (CORICIDIN HBP COLD AND FLU ORAL) Take by mouth. GYMNEMA LEAF, BULK, MISC loratadine (CLARITIN) 10 mg tablet Take 1 tablet by mouth once daily. psyllium husk (DAILY FIBER ORAL) Take by mouth. phylicia-fiber daily (Patient not taking: No sig reported) Current Facility-Administered Medications on File Prior to Visit Medication perflutren lipid microspheres 1.3 mL in NaCl (PF) 0.9% 10 mL injection (DEFINITY) sodium chloride 0.9 % (flush) 10 mL (BD POSIFLUSH) Social History Social History Tobacco Use Smoking status: Never Smokeless tobacco: Never Vaping Use Vaping Use: Never used Substance Use Topics Alcohol use: No Drug use: No Review of Symptoms REVIEW OF SYSTEMS GENERAL: No weight loss, malaise or fevers EXAM: BP 136/68 (BP Site: Right Arm, BP Position: Sitting, BP Cuff Size: Regular Adult) Pulse 76 Temp 36.5 ?C (97.7 ?F) Resp 16 Wt 42.6 kg (94 lb) BMI 18.36 kg/m? General Appearance: Well appearing, alert, in no acute distress, well-hydrated, well nourished.. Health Maintenance List BP CONTROLLED (<130/80) Never done DTAP,TDAP,TD(2 - Td or Tdap) due on 10/31/2022 ANNUAL PCP TEAM CHRONIC DISEASE VISIT due on 02/10/2024 MAMMOGRAM due on 02/28/2024 COLORECTAL CANCER SCREENING due on 11/24/2025 DIABETES SCREEN due on 01/24/2026 LIPID SCREEN due on 01/25/2028 BONE DENSITY Completed ADVANCE DIRECTIVE DISCUSSION Completed DEPRESSION ASSESSMENT Completed SHINGRIX VACCINE Completed (more content not included)... [facility] 02-27-2023 Note HNO ID: [id number] Author: MALORIE Barr) Service: ? Author Type: Technologist Type: Progress Notes Filed: 02/27/2023 2:53 PM Note Text: Radiology Service Progress Note PATIENT NAME: Paz Harrington DATE OF SERVICE: February 27, 2023 TIME: 2:53 PM PATIENT IDENTITY VERIFICATION COMPLETED USING TWO (2) IDENTIFIERS: Name and Date of confirmed by patient verbally. FALL SCREENING: Has the patient had 2 falls in the last year or 1 fall with injury or currently using an Ambulatory Assistive Device (Walker, Cane, Wheelchair, Crutches, etc.)? No PATIENT GENDER DATA: Female. status: : No status: NO. PATIENT RELEVANT IMPLANT DATA REVIEWED: Not Applicable RADIOLOGY DEPARTMENT: Mammography PERIPHERAL IV DATA: Not applicable SIGNED BY: RT Momo(Debbie) February 27, 2023 2:53 PM [facility] 02-27-2023 History of Presen t illness Narrative Radiology Service Progress Note PATIENT NAME: Paz Harrington DATE OF SERVICE: February 27, 2023 TIME: 2:53 PM PATIENT IDENTITY VERIFICATION COMPLETED USING TWO (2) IDENTIFIERS: Name and Date of confirmed by patient verbally. FALL SCREENING: Has the patient had 2 falls in the last year or 1 fall with injury or currently using an Ambulatory Assistive Device (Walker, Cane, Wheelchair, Crutches, etc.)? No PATIENT GENDER DATA: Female. status: : No status: NO. PATIENT RELEVANT IMPLANT DATA REVIEWED: Not Applicable RADIOLOGY DEPARTMENT: Mammography PERIPHERAL IV DATA: Not applicable SIGNED BY: RT Momo(Debbie) February 27, 2023 2:53 PM documented in this encounter [facility] 02-09-2023 Note HNO ID: [id number] Author: Constance Klein PA-C Service: ? Author Type: Physician Cloud Operations Engineer Type: Progress Notes Filed: 02/09/2023 12:51 PM Note Text: Chief Complaint Patient presents with: Recheck: Blood pressure HPI Paz Harrington is a 72 year old female who presents here today for BP recheck. Patient's last visit BP was elevated. Patient does report general anxiety as potential contributor but also is still working at age 72. Home readings are comparable to office. Patient has some questions about FMD Last 3 Encounter BP Readings: Date: BP: 02/09/2023 140/56[bp aayush average[ 01/24/2023 172/70 01/16/2023 126/60 Past medical history, appointments, medications, allergies reviewed. Previous Medical History PAST MEDICAL HISTORY Diagnosis Date Advance directive discussed with patient 07/26/2022 Discussed 07/2022 Age-related osteoporosis without current pathological fracture 11/30/2009 Candidal cheilitis 12/03/2011 Cheilitis: lower lip: along jennifer to lip mucosa 12/03/2011 Chronic allergic rhinitis 07/21/2017 Chronic right-sided low back pain 10/03/2016 Clostridium difficile colitis 2007 Elevated hemoglobin A1c 05/14/2019 Elevated plasma metanephrines 01/27/2018 Saw endo and no concern for Pheo. 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/2009 Thoracic or lumbosacral neuritis or radiculitis, unspecified 12/22/2008 Well adult exam 07/21/2017 last done: 05/14/2019 Previous Surgical History PAST SURGICAL HISTORY Procedure Laterality Date COLONOSCOPY FLX DX W/COLLJ SPEC WHEN PFRMD Colonoscopy FECAL OCCULT BLOOD TEST 07/28/2017 negative STRESS ECHO 04/30/2020 negative TONSILLECTOMY PRIMARY/SECONDARY AGE 12/> Age of 38 Family History FAMILY HISTORY Problem Relation Age of Onset Hypertension Mother Heart Father CHF Heart Paternal Grandmother Stroke Paternal Grandmother Diabetes Paternal Aunt Patient Allergies ALLERGIES Allergen Reactions Sulfa (Sulfonamide * Rash Augmentin [Amoxicil* Intolerance Patient had diarrhea and possibly a mild skin rash with prior use of Augmentin. She has subsequently taken amoxicillin and tolerated this without adverse reaction. Cats Intolerance Echinacea Swelling Pollen Intolerance Ragweed Intolerance Current Medications Current Outpatient Medications on File Prior to Visit Medication Sig fluticasone (FLONASE) 50 mcg/actuation nasal spray Use 2 Sprays in each nostril once daily. Rinse mouth after use. hydroCHLOROthiazide (HYDRODIURIL, ESIDRIX) 12.5 mg capsule Take 1 capsule by mouth once daily. alendronate (FOSAMAX) 70 mg tablet Take 1 tablet by mouth one time a week. In AM with cup of water on empty stomach. Nothing else by mouth and stay upright for 30 min. aspirin, enteric coated (ASPIRIN, ENTERIC COATED) 81 mg EC tablet Take 1 tablet by mouth once daily. multivitamin/iron/folic acid (CENTRUM WOMEN ORAL) Take by mouth. acyclovir (ZOVIRAX) 800 mg tablet 1 tablet three times daily. cholecalciferol (VITAMIN D3) 1,000 unit tab tablet Take 1,000 Units by mouth twice daily. acetaminophen/chlorpheniramine (CORICIDIN HBP COLD AND FLU ORAL) Take by mouth. GYMNEMA LEAF, BULK, MISC loratadine (CLARITIN) 10 mg tablet Take 1 tablet by mouth once daily. psyllium husk (DAILY FIBER ORAL) Take by mouth. phylicia-fiber daily (Patient not taking: No sig reported) Current Facility-Administered Medications on File Prior to Visit Medication perflutren lipid microspheres 1.3 mL in NaCl (PF) 0.9% 10 mL injection (DEFINITY) sodium chloride 0.9 % (flush) 10 mL (BD POSIFLUSH) Social History Social History Tobacco Use Smoking status: Never Smokeless tobacco: Never Vaping Use Vaping Use: Never used Substance Use Topics Alcohol use: No Drug use: No Review of Symptoms REVIEW OF SYSTEMS GENERAL: No weight loss, malaise or fevers EXAM: BP 140/56 (BP Site: Left Arm, BP Position: Sitting, BP Cuff Size: Large Adult) Pulse 66 Temp 36.9 ?C (98.4 ?F) Resp 16 Wt 43.3 kg (95 lb 6 oz) BMI 18.63 kg/m? General Appearance: Well appearing, alert, in no acute distress, well-hydrated, well nourished.. Health Maintenance List BP CONTROLLED (<130/80) Never done MAMMOGRAM due on 05/04/2022 DTAP,TDAP,TD(2 - Td or Tdap) due on 10/31/2022 ANNUAL PCP TEAM CHRONIC DISEASE VISIT due on 01/25/2024 COLORECTAL CANCER SCREENING due on 11/24/2025 DIABETES SCREEN due on 01/24/2026 LIPID SCREEN due on 01/25/2028 BONE DENSITY Completed ADVANCE DIRECTIVE DISCUSSION Completed DEPRESSION ASSESSMENT Completed SHINGRIX VACCINE Comple (more content not included)... [facility] 02-09-2023 History of Presen t illness Narrative Chief Complaint Patient presents with: Recheck: Blood pressure HPI Paz Harrington is a 72 year old female who presents here today for BP recheck. Patient's last visit BP was elevated. Patient does report general anxiety as potential contributor but also is still working at age 72. Home readings are comparable to office. Patient has some questions about FMD Last 3 Encounter BP Readings: Date: BP: 02/09/2023 140/56[bp aayush average[ 01/24/2023 172/70 01/16/2023 126/60 Past medical history, appointments, medications, allergies reviewed. Previous Medical History PAST MEDICAL HISTORY Diagnosis Date Advance directive discussed with patient 07/26/2022 Discussed 07/2022 Age-related osteoporosis without current pathological fracture 11/30/2009 Candidal cheilitis 12/03/2011 Cheilitis: lower lip: along jennifer to lip mucosa 12/03/2011 Chronic allergic rhinitis 07/21/2017 Chronic right-sided low back pain 10/03/2016 Clostridium difficile colitis 2007 Elevated hemoglobin A1c 05/14/2019 Elevated plasma metanephrines 01/27/2018 Saw endo and no concern for Pheo. 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/2009 Thoracic or lumbosacral neuritis or radiculitis, unspecified 12/22/2008 Well adult exam 07/21/2017 last done: 05/14/2019 Previous Surgical History PAST SURGICAL HISTORY Procedure Laterality Date COLONOSCOPY FLX DX W/COLLJ SPEC WHEN PFRMD Colonoscopy FECAL OCCULT BLOOD TEST 07/28/2017 negative STRESS ECHO 04/30/2020 negative TONSILLECTOMY PRIMARY/SECONDARY AGE 12/> Age of 40 Family History FAMILY HISTORY Problem Relation Age of Onset Hypertension Mother Heart Father CHF Heart Paternal Grandmother Stroke Paternal Grandmother Diabetes Paternal Aunt Patient Allergies ALLERGIES Allergen Reactions Sulfa (Sulfonamide * Rash Augmentin [Amoxicil* Intolerance Patient had diarrhea and possibly a mild skin rash with prior use of Augmentin. She has subsequently taken amoxicillin and tolerated this without adverse reaction. Cats Intolerance Echinacea Swelling Pollen Intolerance Ragweed Intolerance Current Medications Current Outpatient Medications on File Prior to Visit Medication Sig fluticasone (FLONASE) 50 mcg/actuation nasal spray Use 2 Sprays in each nostril once daily. Rinse mouth after use. hydroCHLOROthiazide (HYDRODIURIL, ESIDRIX) 12.5 mg capsule Take 1 capsule by mouth once daily. alendronate (FOSAMAX) 70 mg tablet Take 1 tablet by mouth one time a week. In AM with cup of water on empty stomach. Nothing else by mouth and stay upright for 30 min. aspirin, enteric coated (ASPIRIN, ENTERIC COATED) 81 mg EC tablet Take 1 tablet by mouth once daily. multivitamin/iron/folic acid (CENTRUM WOMEN ORAL) Take by mouth. acyclovir (ZOVIRAX) 800 mg tablet 1 tablet three times daily. cholecalciferol (VITAMIN D3) 1,000 unit tab tablet Take 1,000 Units by mouth twice daily. acetaminophen/chlorpheniramine (CORICIDIN HBP COLD AND FLU ORAL) Take by mouth. GYMNEMA LEAF, BULK, MISC loratadine (CLARITIN) 10 mg tablet Take 1 tablet by mouth once daily. psyllium husk (DAILY FIBER ORAL) Take by mouth. phylicia-fiber daily (Patient not taking: No sig reported) Current Facility-Administered Medications on File Prior to Visit Medication perflutren lipid microspheres 1.3 mL in NaCl (PF) 0.9% 10 mL injection (DEFINITY) sodium chloride 0.9 % (flush) 10 mL (BD POSIFLUSH) Social History Social History Tobacco Use Smoking status: Never Smokeless tobacco: Never Vaping Use Vaping Use: Never used Substance Use Topics Alcohol use: No Drug use: No Review of Symptoms REVIEW OF SYSTEMS GENERAL: No weight loss, malaise or fevers EXAM: BP 140/56 (BP Site: Left Arm, BP Position: Sitting, BP Cuff Size: Large Adult) Pulse 66 Temp 36.9 C (98.4 F) Resp 16 Wt 43.3 kg (95 lb 6 oz) BMI 18.63 kg/m General Appearance: Well appearing, alert, in no acute distress, well-hydrated, well nourished.. Health Maintenance List BP CONTROLLED (<130/80) Never done MAMMOGRAM due on 05/04/2022 DTAP,TDAP,TD(2 - Td or Tdap) due on 10/31/2022 ANNUAL PCP TEAM CHRONIC DISEASE VISIT due on 01/25/2024 COLORECTAL CANCER SCREENING due on 11/24/2025 DIABETES SCREEN due on 01/24/2026 LIPID SCREEN due on 01/25/2028 BONE DENSITY Completed ADVANCE DIRECTIVE DISCUSSION Completed DEPRESSION ASSESSMENT Completed SHINGRIX VACCINE Completed COVID-19 VACCINE Completed PNEUMOCOCCAL: 65+ Completed INFLUENZA Discontinued HEPATITIS C SCREENING Discontinued Data reviewed ASSESSMENT/PLAN: 1. Essential hypertension, benign - ICD9: 401.1, ICD10: I10 (primary diagnosis) - suboptimal control - Continue current medication(s) - Increase lisinopril (Zestril/Prinivil) - Recommended regular aerobic exercise. - Recommend home blood pressure monitoring, to bring results in on next visit - Follow up in 1 month for BP recheck. - Goal of BP <130/80 2. Primary hypertension - ICD9: 401.9, ICD10: I10 As above 3. 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 dysplasia of both carotid arteries (HCC) - ICD9: 447.8, ICD10: I77.3 Discussed decreasing risk factors. Stay on aspirin 4. Primary insomnia - ICD9: 307.42, ICD10: F51.01 - ZOLPIDEM 10 MG TABLET 5. Recurrent cold sores - ICD9: 054.9, ICD10: B00.1 - ACYCLOVIR 800 MG TABLET Recheck in 1 month Constance Klein PA-C documented in this encounter [facility] 01-25-2023 Miscellaneous Notes Formattin g of this note might be different from the original. Patient called and notified of results and providers instructions. Patient verbalizes understanding. Peggy Jefferson RN Please let patient know her labs are normal. documented in this encounter [facility] 01-24-2023 Note HNO ID: [id number] Author: Fabian Mcmullen MD Service: ? Author Type: Physician Type: Progress Notes Filed: 01/24/2023 6:12 PM Note Text: Chief Complaint Patient presents with: F/U 6 months HPI Paz Harrington is a 72 year old female who presents here today for 6 month follow up. Office visit - 6 month follow up Patient with Hx of HTN, insomnia, elevated A1c, allergic rhinitis, cold sores as well as those reviewed and addressed below and in ROS. Patient is here for 6 month follow up. Patient has questions regarding aspirin and why and results on ECHO/US in 07/2022. Office visit- 07/26/2022 - wellness Patient with Hx of HTN, insomnia, elevated A1c, allergic rhinitis, cold sores as well as those reviewed and addressed below and in ROS. Since last being seen patient has not had any further dizziness. Past medical history, appointments, medications, allergies reviewed. Previous Medical History PAST MEDICAL HISTORY Diagnosis Date Advance directive discussed with patient 07/26/2022 Discussed 07/2022 Age-related osteoporosis without current pathological fracture 11/30/2009 Candidal cheilitis 12/03/2011 Cheilitis: lower lip: along jennifer to lip mucosa 12/03/2011 Chronic allergic rhinitis 07/21/2017 Chronic right-sided low back pain 10/03/2016 Clostridium difficile colitis 2007 Elevated hemoglobin A1c 05/14/2019 Elevated plasma metanephrines 01/27/2018 Saw endo and no concern for Pheo. 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/2009 Thoracic or lumbosacral neuritis or radiculitis, unspecified 12/22/2008 Well adult exam 07/21/2017 last done: 05/14/2019 Previous Surgical History PAST SURGICAL HISTORY Procedure Laterality Date COLONOSCOPY FLX DX W/COLLJ SPEC WHEN PFRMD Colonoscopy FECAL OCCULT BLOOD TEST 07/28/2017 negative STRESS ECHO 04/30/2020 negative TONSILLECTOMY PRIMARY/SECONDARY AGE 12/> Age of 38 Family History FAMILY HISTORY Problem Relation Age of Onset Hypertension Mother Heart Father CHF Heart Paternal Grandmother Stroke Paternal Grandmother Diabetes Paternal Aunt Patient Allergies ALLERGIES Allergen Reactions Sulfa (Sulfonamide * Rash Augmentin [Amoxicil* Intolerance Patient had diarrhea and possibly a mild skin rash with prior use of Augmentin. She has subsequently taken amoxicillin and tolerated this without adverse reaction. Cats Intolerance Echinacea Swelling Pollen Intolerance Ragweed Intolerance Current Medications Current Outpatient Medications on File Prior to Visit Medication Sig fluticasone (FLONASE) 50 mcg/actuation nasal spray Use 2 Sprays in each nostril once daily. Rinse mouth after use. hydroCHLOROthiazide (HYDRODIURIL, ESIDRIX) 12.5 mg capsule Take 1 capsule by mouth once daily. lisinopril (ZESTRIL,PRINIVIL) 30 mg tablet TAKE 1 TABLET BY MOUTH EVERY DAY alendronate (FOSAMAX) 70 mg tablet Take 1 tablet by mouth one time a week. In AM with cup of water on empty stomach. Nothing else by mouth and stay upright for 30 min. aspirin, enteric coated (ASPIRIN, ENTERIC COATED) 81 mg EC tablet Take 1 tablet by mouth once daily. potassium chloride SR (MICRO-K) 8 mEq cpER Take 1 capsule by mouth twice daily. zolpidem (AMBIEN) 10 mg Take 1 tablet by mouth at bedtime as needed for up to 180 days. FOR INSOMNIA multivitamin/iron/folic acid (CENTRUM WOMEN ORAL) Take by mouth. acyclovir (ZOVIRAX) 800 mg tablet 1 tablet three times daily. psyllium husk (DAILY FIBER ORAL) Take by mouth. phylicia-fiber daily (Patient not taking: No sig reported) cholecalciferol (VITAMIN D3) 1,000 unit tab tablet Take 1,000 Units by mouth twice daily. acetaminophen/chlorpheniramine (CORICIDIN HBP COLD AND FLU ORAL) Take by mouth. GYMNEMA LEAF, BULK, MISC loratadine (CLARITIN) 10 mg tablet Take 1 tablet by mouth once daily. Current Facility-Administered Medications on File Prior to Visit Medication perflutren lipid microspheres 1.3 mL in NaCl (PF) 0.9% 10 mL injection (DEFINITY) sodium chloride 0.9 % (flush) 10 mL (BD POSIFLUSH) Social History Social History Tobacco Use Smoking status: Never Smokeless tobacco: Never Vaping Use Vaping Use: Never used Substance Use Topics Alcohol use: No Drug use: No Review of Symptoms REVIEW OF SYSTEMS GENERAL: No weight loss, malaise or fevers NECK: Negative for lumps, goiter, pain and significant neck swelling RESPIRATORY: Negative for cough, hemoptysis, wheezing, COPD, dyspnea or shortness of breath CARDIOVASCULAR: Negative for chest pain, leg swelling, hypertension, CHF or palpitations PSYCH: Ne (more content not included)... [facility] 01-24-2023 Instructions Fabian Mcmullen MD - 01/24/2023 4:26 PM EDT Please get labs and urine test done on or after 07/13/2023 prior to your next visit. documented in this encounter [facility] 01-24-2023 History of Presen t illness Narrative Chief Complaint Patient presents with: F/U 6 months HPI Paz Harrington is a 72 year old female who presents here today for 6 month follow up. Office visit - 6 month follow up Patient with Hx of HTN, insomnia, elevated A1c, allergic rhinitis, cold sores as well as those reviewed and addressed below and in ROS. Patient is here for 6 month follow up. Patient has questions regarding aspirin and why and results on ECHO/US in 07/2022. Office visit- 07/26/2022 - wellness Patient with Hx of HTN, insomnia, elevated A1c, allergic rhinitis, cold sores as well as those reviewed and addressed below and in ROS. Since last being seen patient has not had any further dizziness. Past medical history, appointments, medications, allergies reviewed. Previous Medical History PAST MEDICAL HISTORY Diagnosis Date Advance directive discussed with patient 07/26/2022 Discussed 07/2022 Age-related osteoporosis without current pathological fracture 11/30/2009 Candidal cheilitis 12/03/2011 Cheilitis: lower lip: along jennifer to lip mucosa 12/03/2011 Chronic allergic rhinitis 07/21/2017 Chronic right-sided low back pain 10/03/2016 Clostridium difficile colitis 2007 Elevated hemoglobin A1c 05/14/2019 Elevated plasma metanephrines 01/27/2018 Saw endo and no concern for Pheo. Essential hypertension, benign 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 dysplasia of both carotid arteries (HCC) 08/03/2022 US 07/2022 LALO (generalized anxiety disorder) 12/29/2020 Insomnia 11/29/2016 Lactose intolerance Lactose intolerance Mild AI (aortic insufficiency) 07/27/2022 Echo 07/2022 Normocytic anemia 09/29/2016 just in 2015 Osteopenia 11/30/2009 Pruritus 12/03/2011 Recurrent cold sores 11/30/2009 Thoracic or lumbosacral neuritis or radiculitis, unspecified 12/22/2008 Well adult exam 07/21/2017 last done: 05/14/2019 Previous Surgical History PAST SURGICAL HISTORY Procedure Laterality Date COLONOSCOPY FLX DX W/COLLJ SPEC WHEN PFRMD Colonoscopy FECAL OCCULT BLOOD TEST 07/28/2017 negative STRESS ECHO 04/30/2020 negative TONSILLECTOMY PRIMARY/SECONDARY AGE 12/> Age of 38 Family History FAMILY HISTORY Problem Relation Age of Onset Hypertension Mother Heart Father CHF Heart Paternal Grandmother Stroke Paternal Grandmother Diabetes Paternal Aunt Patient Allergies ALLERGIES Allergen Reactions Sulfa (Sulfonamide * Rash Augmentin [Amoxicil* Intolerance Patient had diarrhea and possibly a mild skin rash with prior use of Augmentin. She has subsequently taken amoxicillin and tolerated this without adverse reaction. Cats Intolerance Echinacea Swelling Pollen Intolerance Ragweed Intolerance Current Medications Current Outpatient Medications on File Prior to Visit Medication Sig fluticasone (FLONASE) 50 mcg/actuation nasal spray Use 2 Sprays in each nostril once daily. Rinse mouth after use. hydroCHLOROthiazide (HYDRODIURIL, ESIDRIX) 12.5 mg capsule Take 1 capsule by mouth once daily. lisinopril (ZESTRIL,PRINIVIL) 30 mg tablet TAKE 1 TABLET BY MOUTH EVERY DAY alendronate (FOSAMAX) 70 mg tablet Take 1 tablet by mouth one time a week. In AM with cup of water on empty stomach. Nothing else by mouth and stay upright for 30 min. aspirin, enteric coated (ASPIRIN, ENTERIC COATED) 81 mg EC tablet Take 1 tablet by mouth once daily. potassium chloride SR (MICRO-K) 8 mEq cpER Take 1 capsule by mouth twice daily. zolpidem (AMBIEN) 10 mg Take 1 tablet by mouth at bedtime as needed for up to 180 days. FOR INSOMNIA multivitamin/iron/folic acid (CENTRUM WOMEN ORAL) Take by mouth. acyclovir (ZOVIRAX) 800 mg tablet 1 tablet three times daily. psyllium husk (DAILY FIBER ORAL) Take by mouth. phylicia-fiber daily (Patient not taking: No sig reported) cholecalciferol (VITAMIN D3) 1,000 unit tab tablet Take 1,000 Units by mouth twice daily. acetaminophen/chlorpheniramine (CORICIDIN HBP COLD AND FLU ORAL) Take by mouth. GYMNEMA LEAF, BULK, MISC loratadine (CLARITIN) 10 mg tablet Take 1 tablet by mouth once daily. Current Facility-Administered Medications on File Prior to Visit Medication perflutren lipid microspheres 1.3 mL in NaCl (PF) 0.9% 10 mL injection (DEFINITY) sodium chloride 0.9 % (flush) 10 mL (BD POSIFLUSH) Social History Social History Tobacco Use Smoking status: Never Smokeless tobacco: Never Vaping Use Vaping Use: Never used Substance Use Topics Alcohol use: No Drug use: No Review of Symptoms REVIEW OF SYSTEMS GENERAL: No weight loss, malaise or fevers NECK: Negative for lumps, goiter, pain and significant neck swelling RESPIRATORY: Negative for cough, hemoptysis, wheezing, COPD, dyspnea or shortness of breath CARDIOVASCULAR: Negative for chest pain, leg swelling, hypertension, CHF or palpitations PSYCH: Negative for sleep disturbance, mood disorder and recent psychosocial stressors. Anxiety from time to time is not as well controlled. ENDOCRINE: Negative for cold or heat intolerance, polyuria, polydipsia and goiter NEURO: No history of headaches, syncope, paralysis, seizures or tremors EXAM: BP 158/68 (BP Site: Left Arm, BP Position: Sitting, BP Cuff Size: Regular Adult) Pulse 64 Resp 16 Wt 42.6 kg (94 lb) BMI 18.36 kg/m BP 172/70 Pulse 64 Resp 16 Wt 42.6 kg (94 lb) BMI 18.36 kg/m Last 4 Encounter Wt Readings: Date: Wt: 01/24/2023 42.6 kg (94 lb) 01/16/2023 42.2 kg (93 lb) 12/21/2022 42.2 kg (93 lb) 12/11/2022 42.3 kg (93 lb 3.2 oz) General Appearance: Well appearing, alert, in no acute distress, well-hydrated, well nourished.. Neck: Supple, no adenopathy; thyroid symmetric, normal size, no bruits. Lungs: Lungs clear to auscultation. No wheezing, rhonchi, rales.. Heart: RRR without murmur, gallop, or rubs. No ectopy. Abdomen: Normal abdominal exam, Abdomen soft, non-tender. Bowel sounds normal. No masses, organomegaly. Extremities: No deformities, edema, skin discoloration, Peripheral Pulses: Normal. Neurologic: Gait normal. Sensation to light touch and crainal nerves 2-12 intact.. Health Maintenance List MAMMOGRAM due on 05/04/2022 ADVANCE DIRECTIVE DISCUSSION due on 10/15/2022 DEPRESSION ASSESSMENT due on 10/15/2022 DTAP,TDAP,TD(2 - Td or Tdap) due on 10/31/2022 ANNUAL PCP TEAM CHRONIC DISEASE VISIT due on 01/17/2024 BP CONTROLLED (<130/80) due on 01/17/2024 DIABETES SCREEN due on 07/29/2025 COLORECTAL CANCER SCREENING due on 11/24/2025 LIPID SCREEN due on 07/29/2027 BONE DENSITY Completed SHINGRIX VACCINE Completed COVID-19 VACCINE Completed PNEUMOCOCCAL: 65+ Completed INFLUENZA Discontinued HEPATITIS C SCREENING Discontinued Data reviewed A/P ASSESSMENT/PLAN: 1. Essential hypertension, benign - ICD9: 401.1, ICD10: I10 (primary diagnosis) - suboptimal control - Continue current medication(s) - Recommended regular aerobic exercise. - Recommend home blood pressure monitoring, to bring results in on next visit - Recheck in 2 weeks, sooner should new symptoms or problems arise. - Goal of BP <130/80 2. Elevated hemoglobin A1c - ICD9: 790.29, ICD10: R73.09 Chck - HGB A1C 3. LALO (generalized anxiety disorder) - ICD9: 300.02, ICD10: F41.1 - patient under some stress recently but manging well. 4. 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 dysplasia of both carotid arteries (HCC) - ICD9: 447.8, ICD10: I77.3 - cont baby aspirin. - check Lipid. 5. Insomnia, unspecified type - ICD9: 780.52, ICD10: G47.00 - stable no changes. 6. Advance directive discussed with patient - ICD9: V65.49, ICD10: Z71.89 - patient has packets to complete. F/u 2 weeks HTN check. F/u 6 months WAE check CMP, lipid, UA, A1c prior. Fabian Mcmullen MD documented in this encounter [facility] 01-16-2023 Note HNO ID: [id number] Author: Katie Garcia APRN.GIS GEOGRAPHER Service: ? Author Type: Nurse Practitioner Type: Progress Notes Filed: 01/16/2023 9:52 AM Note Text: Chief Complaint Patient presents with: Sore Throat HPI Paz Harrington is a 72 year old female who presents here today for Above Complaints.. Patient presents for sore throat. Patient reports that her granddaughter recently stayed with her and has strep. Patient states that yesterday she was feeling unwell but is not feeling as bad today. Patient reports the sore throat has been intermittent and may be related to allergies. Past medical history, appointments, medications, allergies reviewed. Previous Medical History PAST MEDICAL HISTORY Diagnosis Date Advance directive discussed with patient 07/26/2022 Discussed 07/2022 Age-related osteoporosis without current pathological fracture 11/30/2009 Candidal cheilitis 12/03/2011 Cheilitis: lower lip: along jennifer to lip mucosa 12/03/2011 Chronic allergic rhinitis 07/21/2017 Chronic right-sided low back pain 10/03/2016 Clostridium difficile colitis 2007 Elevated hemoglobin A1c 05/14/2019 Elevated plasma metanephrines 01/27/2018 Saw endo and no concern for Pheo. 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/2009 Thoracic or lumbosacral neuritis or radiculitis, unspecified 12/22/2008 Well adult exam 07/21/2017 last done: 05/14/2019 Previous Surgical History PAST SURGICAL HISTORY Procedure Laterality Date COLONOSCOPY FLX DX W/COLLJ SPEC WHEN PFRMD Colonoscopy FECAL OCCULT BLOOD TEST 07/28/2017 negative STRESS ECHO 04/30/2020 negative TONSILLECTOMY PRIMARY/SECONDARY AGE 12/> Age of 38 Family History FAMILY HISTORY Problem Relation Age of Onset Hypertension Mother Heart Father CHF Heart Paternal Grandmother Stroke Paternal Grandmother Diabetes Paternal Aunt Patient Allergies ALLERGIES Allergen Reactions Sulfa (Sulfonamide * Rash Augmentin [Amoxicil* Intolerance Patient had diarrhea and possibly a mild skin rash with prior use of Augmentin. She has subsequently taken amoxicillin and tolerated this without adverse reaction. Cats Intolerance Echinacea Swelling Pollen Intolerance Ragweed Intolerance Current Medications Current Outpatient Medications on File Prior to Visit Medication Sig fluticasone (FLONASE) 50 mcg/actuation nasal spray USE 2 SPRAYS IN EACH NOSTRIL ONCE DAILY. RINSE MOUTH AFTER USE. hydroCHLOROthiazide (HYDRODIURIL, ESIDRIX) 12.5 mg capsule Take 1 capsule by mouth once daily. lisinopril (ZESTRIL,PRINIVIL) 30 mg tablet TAKE 1 TABLET BY MOUTH EVERY DAY alendronate (FOSAMAX) 70 mg tablet Take 1 tablet by mouth one time a week. In AM with cup of water on empty stomach. Nothing else by mouth and stay upright for 30 min. aspirin, enteric coated (ASPIRIN, ENTERIC COATED) 81 mg EC tablet Take 1 tablet by mouth once daily. potassium chloride SR (MICRO-K) 8 mEq cpER Take 1 capsule by mouth twice daily. zolpidem (AMBIEN) 10 mg Take 1 tablet by mouth at bedtime as needed for up to 180 days. FOR INSOMNIA multivitamin/iron/folic acid (CENTRUM WOMEN ORAL) Take by mouth. acyclovir (ZOVIRAX) 800 mg tablet 1 tablet three times daily. psyllium husk (DAILY FIBER ORAL) Take by mouth. phylicia-fiber daily (Patient not taking: No sig reported) cholecalciferol (VITAMIN D3) 1,000 unit tab tablet Take 1,000 Units by mouth twice daily. acetaminophen/chlorpheniramine (CORICIDIN HBP COLD AND FLU ORAL) Take by mouth. GYMNEMA LEAF, BULK, MISC loratadine (CLARITIN) 10 mg tablet Take 1 tablet by mouth once daily. Current Facility-Administered Medications on File Prior to Visit Medication perflutren lipid microspheres 1.3 mL in NaCl (PF) 0.9% 10 mL injection (DEFINITY) sodium chloride 0.9 % (flush) 10 mL (BD POSIFLUSH) Social History Social History Tobacco Use Smoking status: Never Smokeless tobacco: Never Vaping Use Vaping Use: Never used Substance Use Topics Alcohol use: No Drug use: No Review of Symptoms REVIEW OF SYSTEMS SEE HPI EXAM: BP 126/60 Pulse 76 Temp 36.6 ?C (97.8 ?F) Resp 14 Wt 42.2 kg (93 lb) SpO2 99% BMI 18.16 kg/m? General Appearance: Well appearing, alert, in no acute distress, well-hydrated, well nourished.. Nose/Sinuses: Positive findings: clear rhinorrhea. Oropharynx: Positive findings: mild oropharyngeal erythema. Neck: Supple, no adenopathy; thyroid symmetric, normal size, no bruits. Health Maintenance List MAMMOGRAM due on 05/04/2022 ADVANCE DIRECTIVE DISCUSSION due on 10/15/2022 DEPRESSION ASSESSMENT due on (more content not included)... [facility] 01-16-2023 Instructions Katie Garcia APRN.CNP - 01/16/2023 9:49 AM EDT Restart claritin and flonase Encourage good fluid intake, use of warm salt water gargles, and use of throat lozenges. Follow up in 5 days if no improvement in symptoms documented in this encounter [facility] 01-16-2023 History of Presen t illness Narrative Chief Complaint Patient presents with: Sore Throat HPI Paz Harrington is a 72 year old female who presents here today for Above Complaints.. Patient presents for sore throat. Patient reports that her granddaughter recently stayed with her and has strep. Patient states that yesterday she was feeling unwell but is not feeling as bad today. Patient reports the sore throat has been intermittent and may be related to allergies. Past medical history, appointments, medications, allergies reviewed. Previous Medical History PAST MEDICAL HISTORY Diagnosis Date Advance directive discussed with patient 07/26/2022 Discussed 07/2022 Age-related osteoporosis without current pathological fracture 11/30/2009 Candidal cheilitis 12/03/2011 Cheilitis: lower lip: along jennifer to lip mucosa 12/03/2011 Chronic allergic rhinitis 07/21/2017 Chronic right-sided low back pain 10/03/2016 Clostridium difficile colitis 2007 Elevated hemoglobin A1c 05/14/2019 Elevated plasma metanephrines 01/27/2018 Saw endo and no concern for Pheo. 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/2009 Thoracic or lumbosacral neuritis or radiculitis, unspecified 12/22/2008 Well adult exam 07/21/2017 last done: 05/14/2019 Previous Surgical History PAST SURGICAL HISTORY Procedure Laterality Date COLONOSCOPY FLX DX W/COLLJ SPEC WHEN PFRMD Colonoscopy FECAL OCCULT BLOOD TEST 07/28/2017 negative STRESS ECHO 04/30/2020 negative TONSILLECTOMY PRIMARY/SECONDARY AGE 12/> Age of 38 Family History FAMILY HISTORY Problem Relation Age of Onset Hypertension Mother Heart Father CHF Heart Paternal Grandmother Stroke Paternal Grandmother Diabetes Paternal Aunt Patient Allergies ALLERGIES Allergen Reactions Sulfa (Sulfonamide * Rash Augmentin [Amoxicil* Intolerance Patient had diarrhea and possibly a mild skin rash with prior use of Augmentin. She has subsequently taken amoxicillin and tolerated this without adverse reaction. Cats Intolerance Echinacea Swelling Pollen Intolerance Ragweed Intolerance Current Medications Current Outpatient Medications on File Prior to Visit Medication Sig fluticasone (FLONASE) 50 mcg/actuation nasal spray USE 2 SPRAYS IN EACH NOSTRIL ONCE DAILY. RINSE MOUTH AFTER USE. hydroCHLOROthiazide (HYDRODIURIL, ESIDRIX) 12.5 mg capsule Take 1 capsule by mouth once daily. lisinopril (ZESTRIL,PRINIVIL) 30 mg tablet TAKE 1 TABLET BY MOUTH EVERY DAY alendronate (FOSAMAX) 70 mg tablet Take 1 tablet by mouth one time a week. In AM with cup of water on empty stomach. Nothing else by mouth and stay upright for 30 min. aspirin, enteric coated (ASPIRIN, ENTERIC COATED) 81 mg EC tablet Take 1 tablet by mouth once daily. potassium chloride SR (MICRO-K) 8 mEq cpER Take 1 capsule by mouth twice daily. zolpidem (AMBIEN) 10 mg Take 1 tablet by mouth at bedtime as needed for up to 180 days. FOR INSOMNIA multivitamin/iron/folic acid (CENTRUM WOMEN ORAL) Take by mouth. acyclovir (ZOVIRAX) 800 mg tablet 1 tablet three times daily. psyllium husk (DAILY FIBER ORAL) Take by mouth. phylicia-fiber daily (Patient not taking: No sig reported) cholecalciferol (VITAMIN D3) 1,000 unit tab tablet Take 1,000 Units by mouth twice daily. acetaminophen/chlorpheniramine (CORICIDIN HBP COLD AND FLU ORAL) Take by mouth. GYMNEMA LEAF, BULK, MISC loratadine (CLARITIN) 10 mg tablet Take 1 tablet by mouth once daily. Current Facility-Administered Medications on File Prior to Visit Medication perflutren lipid microspheres 1.3 mL in NaCl (PF) 0.9% 10 mL injection (DEFINITY) sodium chloride 0.9 % (flush) 10 mL (BD POSIFLUSH) Social History Social History Tobacco Use Smoking status: Never Smokeless tobacco: Never Vaping Use Vaping Use: Never used Substance Use Topics Alcohol use: No Drug use: No Review of Symptoms REVIEW OF SYSTEMS SEE HPI EXAM: BP 126/60 Pulse 76 Temp 36.6 C (97.8 F) Resp 14 Wt 42.2 kg (93 lb) SpO2 99% BMI 18.16 kg/m General Appearance: Well appearing, alert, in no acute distress, well-hydrated, well nourished.. Nose/Sinuses: Positive findings: clear rhinorrhea. Oropharynx: Positive findings: mild oropharyngeal erythema. Neck: Supple, no adenopathy; thyroid symmetric, normal size, no bruits. Health Maintenance List MAMMOGRAM due on 05/04/2022 ADVANCE DIRECTIVE DISCUSSION due on 10/15/2022 DEPRESSION ASSESSMENT due on 10/15/2022 DTAP,TDAP,TD(2 - Td or Tdap) due on 10/31/2022 ANNUAL PCP TEAM CHRONIC DISEASE VISIT due on 12/22/2023 BP CONTROLLED (<130/80) due on 12/22/2023 DIABETES SCREEN due on 07/29/2025 COLORECTAL CANCER SCREENING due on 11/24/2025 LIPID SCREEN due on 07/29/2027 BONE DENSITY Completed SHINGRIX VACCINE Completed COVID-19 VACCINE Completed PNEUMOCOCCAL: 65+ Completed INFLUENZA Discontinued HEPATITIS C SCREENING Discontinued ASSESSMENT/PLAN: 1. Seasonal allergic rhinitis, unspecified trigger - ICD9: 477.9, ICD10: J30.2 (primary diagnosis) -Restart claritin and flonase 2. Sore throat - ICD9: 462, ICD10: J02.9 - suspect viral - Discussed supportive care treatment with fluids, rest and analgesia. - The patient may also use warm salt water gargles, throat lozenges and/or OTC throat spray as needed and nasal saline gtts and suction prn. - The patient should follow up in 3-5 days if symptoms persist or worsen Katie Garcia APRN.GIS GEOGRAPHER documented in this encounter [facility] 01-02-2023 Miscellaneous Notes Formattin g of this note is different from the original. The following approved medication requests have been transmitted electronically. Requested Prescriptions Signed Prescriptions Disp Refills fluticasone (FLONASE) 50 mcg/actuation nasal spray 16 mL 1 Sig: USE 2 SPRAYS IN EACH NOSTRIL ONCE DAILY. RINSE MOUTH AFTER USE. Authorizing Provider: FABIAN MCMULLEN MD Patient has been identified by name and date of : Yes, Provider Dr. Mcmullen Date 01/02/23 Time 8:59 am Pharmacy phones for refill(s): Requested Prescriptions Pending Prescriptions Disp Refills fluticasone (FLONASE) 50 mcg/actuation nasal spray [Pharmacy Med Name: FLUTICASONE PROP 50 MCG SPRAY] 16 mL 1 Sig: USE 2 SPRAYS IN EACH NOSTRIL ONCE DAILY. RINSE MOUTH AFTER USE. Date of last office visit in primary care: 12/21/22 next apt 01/24/23 Last 2 Encounter Wt Readings: Date: Wt: 12/21/2022 42.2 kg (93 lb) 12/11/2022 42.3 kg (93 lb 3.2 oz) Previous labs/tests for medication: Not applicable Thank you. Michelle Sharpe LPN documented in this encounter [facility] 12-21-2022 Note HNO ID: [id number] Author: Fabian Mcmullen MD Service: ? Author Type: Physician Type: Progress Notes Filed: 12/21/2022 4:24 PM Note Text: Chief Complaint Patient presents with: Sinus Problem HPI Paz Harrington is a 72 year old female who presents here today for sinus infection finished her antibiotic that was prescribed on 12/11/2022. She has been having issues with right side of sinus. She had a nosebleed. She saw ENT about one year ago. She was tested for strep, flue and COVID and they were all neg. Patient is not a smoker. She complete the amoxil and the sore throat did resolve but still has pressure in the right maxillary sinus and behind the right ear. No fevers, chills, nasal drainage or productive cough. Past medical history, appointments, medications, allergies reviewed. Previous Medical History PAST MEDICAL HISTORY Diagnosis Date Advance directive discussed with patient 07/26/2022 Discussed 07/2022 Age-related osteoporosis without current pathological fracture 11/30/2009 Candidal cheilitis 12/03/2011 Cheilitis: lower lip: along jennifer to lip mucosa 12/03/2011 Chronic allergic rhinitis 07/21/2017 Chronic right-sided low back pain 10/03/2016 Clostridium difficile colitis 2007 Elevated hemoglobin A1c 05/14/2019 Elevated plasma metanephrines 01/27/2018 Saw endo and no concern for Pheo. 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/2009 Thoracic or lumbosacral neuritis or radiculitis, unspecified 12/22/2008 Well adult exam 07/21/2017 last done: 05/14/2019 Previous Surgical History PAST SURGICAL HISTORY Procedure Laterality Date COLONOSCOPY FLX DX W/COLLJ SPEC WHEN PFRMD Colonoscopy FECAL OCCULT BLOOD TEST 07/28/2017 negative STRESS ECHO 04/30/2020 negative TONSILLECTOMY PRIMARY/SECONDARY AGE 12/> Age of 40 Family History FAMILY HISTORY Problem Relation Age of Onset Hypertension Mother Heart Father CHF Heart Paternal Grandmother Stroke Paternal Grandmother Diabetes Paternal Aunt Patient Allergies ALLERGIES Allergen Reactions Sulfa (Sulfonamide * Rash Augmentin [Amoxicil* Intolerance Patient had diarrhea and possibly a mild skin rash with prior use of Augmentin. She has subsequently taken amoxicillin and tolerated this without adverse reaction. Cats Intolerance Echinacea Swelling Pollen Intolerance Ragweed Intolerance Current Medications Current Outpatient Medications on File Prior to Visit Medication Sig fluticasone (FLONASE) 50 mcg/actuation nasal spray Use 2 Sprays in each nostril once daily. Rinse mouth after use. amoxicillin (AMOXIL) 400 mg/5 mL suspension Take 6.3 mL by mouth twice daily for 10 days. hydroCHLOROthiazide (HYDRODIURIL, ESIDRIX) 12.5 mg capsule Take 1 capsule by mouth once daily. lisinopril (ZESTRIL,PRINIVIL) 30 mg tablet TAKE 1 TABLET BY MOUTH EVERY DAY alendronate (FOSAMAX) 70 mg tablet Take 1 tablet by mouth one time a week. In AM with cup of water on empty stomach. Nothing else by mouth and stay upright for 30 min. aspirin, enteric coated (ASPIRIN, ENTERIC COATED) 81 mg EC tablet Take 1 tablet by mouth once daily. potassium chloride SR (MICRO-K) 8 mEq cpER Take 1 capsule by mouth twice daily. zolpidem (AMBIEN) 10 mg Take 1 tablet by mouth at bedtime as needed for up to 180 days. FOR INSOMNIA multivitamin/iron/folic acid (CENTRUM WOMEN ORAL) Take by mouth. acyclovir (ZOVIRAX) 800 mg tablet 1 tablet three times daily. psyllium husk (DAILY FIBER ORAL) Take by mouth. phylicia-fiber daily (Patient not taking: No sig reported) cholecalciferol (VITAMIN D3) 1,000 unit tab tablet Take 1,000 Units by mouth twice daily. acetaminophen/chlorpheniramine (CORICIDIN HBP COLD AND FLU ORAL) Take by mouth. GYMNEMA LEAF, BULK, MISC triamcinolone acetonide (NASACORT AQ) 55 mcg nasal inhaler Use 2 Sprays in each nostril once daily. loratadine (CLARITIN) 10 mg tablet Take 1 tablet by mouth once daily. Current Facility-Administered Medications on File Prior to Visit Medication perflutren lipid microspheres 1.3 mL in NaCl (PF) 0.9% 10 mL injection (DEFINITY) sodium chloride 0.9 % (flush) 10 mL (BD POSIFLUSH) Social History Social History Tobacco Use Smoking status: Never Smokeless tobacco: Never Vaping Use Vaping Use: Never used Substance Use Topics Alcohol use: No Drug use: No Review of Symptoms REVIEW OF SYSTEMS See HPI EXAM: BP 128/70 (BP Site: Right Arm, BP Position: Sitting, BP Cuff Size: Regular Adult) Pulse 71 Temp 36.8 ?C (98.3 ?F) (Tympanic) Resp 14 Wt 42.2 kg (93 lb) SpO2 100% BMI 18.16 kg/m? (more content not included)... [facility] 12-21-2022 History of Presen t illness Narrative Chief Complaint Patient presents with: Sinus Problem HPI Paz Harrington is a 72 year old female who presents here today for sinus infection finished her antibiotic that was prescribed on 12/11/2022. She has been having issues with right side of sinus. She had a nosebleed. She saw ENT about one year ago. She was tested for strep, flue and COVID and they were all neg. Patient is not a smoker. She complete the amoxil and the sore throat did resolve but still has pressure in the right maxillary sinus and behind the right ear. No fevers, chills, nasal drainage or productive cough. Past medical history, appointments, medications, allergies reviewed. Previous Medical History PAST MEDICAL HISTORY Diagnosis Date Advance directive discussed with patient 07/26/2022 Discussed 07/2022 Age-related osteoporosis without current pathological fracture 11/30/2009 Candidal cheilitis 12/03/2011 Cheilitis: lower lip: along jennifer to lip mucosa 12/03/2011 Chronic allergic rhinitis 07/21/2017 Chronic right-sided low back pain 10/03/2016 Clostridium difficile colitis 2007 Elevated hemoglobin A1c 05/14/2019 Elevated plasma metanephrines 01/27/2018 Saw endo and no concern for Pheo. 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/2009 Thoracic or lumbosacral neuritis or radiculitis, unspecified 12/22/2008 Well adult exam 07/21/2017 last done: 05/14/2019 Previous Surgical History PAST SURGICAL HISTORY Procedure Laterality Date COLONOSCOPY FLX DX W/COLLJ SPEC WHEN PFRMD Colonoscopy FECAL OCCULT BLOOD TEST 07/28/2017 negative STRESS ECHO 04/30/2020 negative TONSILLECTOMY PRIMARY/SECONDARY AGE 12/> Age of 40 Family History FAMILY HISTORY Problem Relation Age of Onset Hypertension Mother Heart Father CHF Heart Paternal Grandmother Stroke Paternal Grandmother Diabetes Paternal Aunt Patient Allergies ALLERGIES Allergen Reactions Sulfa (Sulfonamide * Rash Augmentin [Amoxicil* Intolerance Patient had diarrhea and possibly a mild skin rash with prior use of Augmentin. She has subsequently taken amoxicillin and tolerated this without adverse reaction. Cats Intolerance Echinacea Swelling Pollen Intolerance Ragweed Intolerance Current Medications Current Outpatient Medications on File Prior to Visit Medication Sig fluticasone (FLONASE) 50 mcg/actuation nasal spray Use 2 Sprays in each nostril once daily. Rinse mouth after use. amoxicillin (AMOXIL) 400 mg/5 mL suspension Take 6.3 mL by mouth twice daily for 10 days. hydroCHLOROthiazide (HYDRODIURIL, ESIDRIX) 12.5 mg capsule Take 1 capsule by mouth once daily. lisinopril (ZESTRIL,PRINIVIL) 30 mg tablet TAKE 1 TABLET BY MOUTH EVERY DAY alendronate (FOSAMAX) 70 mg tablet Take 1 tablet by mouth one time a week. In AM with cup of water on empty stomach. Nothing else by mouth and stay upright for 30 min. aspirin, enteric coated (ASPIRIN, ENTERIC COATED) 81 mg EC tablet Take 1 tablet by mouth once daily. potassium chloride SR (MICRO-K) 8 mEq cpER Take 1 capsule by mouth twice daily. zolpidem (AMBIEN) 10 mg Take 1 tablet by mouth at bedtime as needed for up to 180 days. FOR INSOMNIA multivitamin/iron/folic acid (CENTRUM WOMEN ORAL) Take by mouth. acyclovir (ZOVIRAX) 800 mg tablet 1 tablet three times daily. psyllium husk (DAILY FIBER ORAL) Take by mouth. phylicia-fiber daily (Patient not taking: No sig reported) cholecalciferol (VITAMIN D3) 1,000 unit tab tablet Take 1,000 Units by mouth twice daily. acetaminophen/chlorpheniramine (CORICIDIN HBP COLD AND FLU ORAL) Take by mouth. GYMNEMA LEAF, BULK, MISC triamcinolone acetonide (NASACORT AQ) 55 mcg nasal inhaler Use 2 Sprays in each nostril once daily. loratadine (CLARITIN) 10 mg tablet Take 1 tablet by mouth once daily. Current Facility-Administered Medications on File Prior to Visit Medication perflutren lipid microspheres 1.3 mL in NaCl (PF) 0.9% 10 mL injection (DEFINITY) sodium chloride 0.9 % (flush) 10 mL (BD POSIFLUSH) Social History Social History Tobacco Use Smoking status: Never Smokeless tobacco: Never Vaping Use Vaping Use: Never used Substance Use Topics Alcohol use: No Drug use: No Review of Symptoms REVIEW OF SYSTEMS See HPI EXAM: BP 128/70 (BP Site: Right Arm, BP Position: Sitting, BP Cuff Size: Regular Adult) Pulse 71 Temp 36.8 C (98.3 F) (Tympanic) Resp 14 Wt 42.2 kg (93 lb) SpO2 100% BMI 18.16 kg/m General Appearance: Well appearing, alert, in no acute distress, well-hydrated, well nourished.. Ears: External ears normal, canals clear. Nose/Sinuses: Nares normal, septum midline, mucosa normal, no drainage mild maxillary sinus tenderness. No tenderness over the mastoids bilaterally. Oropharynx: Lips, mucosa, and tongue normal, teeth and gums normal, oropharynx normal. Neck: Supple, no adenopathy; thyroid symmetric, normal size, no bruits. Lungs: Lungs clear to auscultation. No wheezing, rhonchi, rales.. Heart: RRR without murmur, gallop, or rubs. No ectopy. Health Maintenance List MAMMOGRAM due on 05/04/2022 ADVANCE DIRECTIVE DISCUSSION due on 10/15/2022 DEPRESSION ASSESSMENT due on 10/15/2022 DTAP,TDAP,TD(2 - Td or Tdap) due on 10/31/2022 ANNUAL PCP TEAM CHRONIC DISEASE VISIT due on 12/11/2023 BP CONTROLLED (<130/80) due on 12/11/2023 DIABETES SCREEN due on 07/29/2025 COLORECTAL CANCER SCREENING due on 11/24/2025 LIPID SCREEN due on 07/29/2027 BONE DENSITY Completed SHINGRIX VACCINE Completed COVID-19 VACCINE Completed PNEUMOCOCCAL: 65+ Completed INFLUENZA Discontinued HEPATITIS C SCREENING Discontinued Data reviewed A/P ASSESSMENT/PLAN: 1. Bacterial sinusitis - ICD9: 473.9, 041.9, ICD10: J32.9, B96.89 - Will begin treatment with Levaquin 500 mg once a day for 10 day. Requested Prescriptions Signed Prescriptions Disp Refills levoFLOXacin (LEVAQUIN) 500 mg tablet 10 tablet 0 Sig: Take 1 tablet by mouth once daily for 10 days. Fabian Mcmullen MD documented in this encounter [facility] 12-15-2022 Miscellaneous Notes Formattin g of this note might be different from the original. Patient notified. Heidy Thayer MA Advise patient that I would not make a change in the antibiotic at this time. For over 90% of sore throat amoxil is enough to cover and much lest risk of causing diarrhea and C. Diff infection of the colon compared to Augmentin. Pt calling to ask PCP opinion/advise. Pt seen in on 12/11 for sore throat, sinus pressure and right ear pain. Strep, COVID and influenza all negative. Prescribed amoxicillin for 10 days along with Flonase. Pt is on day 5 of treatment and reports sore throat better-but still mildly sore, has mild cough with clear sputum, but right ear still with same discomfort as when seen in -rates ear pain 3 out of 10. States having a lot of popping and cracking in right ear and area behind her right ear is very sensitive when she touches it. She states she thinks Augmentin may be more beneficial for her ear infection, due to the clavulanate that is in Augmentin. Needs liquid or chewable form, if ordered. Please advise. Thank you. documented in this encounter [facility] 12-11-2022 Note HNO ID: [id number] Author: Molly Lopez APRN.GIS GEOGRAPHER Service: ? Author Type: Nurse Practitioner Type: Progress Notes Filed: 12/11/2022 11:34 AM Note Text: Chief Complaint Patient presents with: Sore Throat: X 2/3 days, Exposed to strep. Ear Pain: Right ear HPI Paz Harrington is a 72 year old female who presents here today for Above Complaints. Per nurse triage today 12/11/2022: Reason for call: Sore throat and right ear pain Outcome: Patient was conferenced to Kristen in [facility]oint[facility] for PCP scheduling. Reason for Disposition SEVERE (e.g., excruciating) throat pain Answer Assessment - Initial Assessment Questions 1. STREP EXPOSURE: yes, grand daughter this weekend, she stayed overnight 12/09/22 2. ONSET: 12/10/22 3. PROVEN STREP: yes, child was tested 12/10/22 4. STREP SYMPTOMS: constant sore throat rated 8/10, unable to describe, no pain medicine taken and right ear pain rated 3/10 5. VIRAL SYMPTOMS: fatigue, up since 0200, is probably drinking less fluids than normal today, but last urinated a couple of hours ago. 6. : n/a; postmenopausal Today: Early 2 days ago started with fatigue and sore throat. Right side of throat hurts worse than left. Has right ear pain and sinus pressure as well. Pain wakes her up. Has been up since 2:00 this morning. Normally has dry mouth, but is worse now. Suspect low-grade fever, has had chills. No change in normal body aches. Has not tried any medications. Past medical history, appointments, medications, allergies reviewed. Previous Medical History PAST MEDICAL HISTORY Diagnosis Date Advance directive discussed with patient 07/26/2022 Discussed 07/2022 Age-related osteoporosis without current pathological fracture 11/30/2009 Candidal cheilitis 12/03/2011 Cheilitis: lower lip: along jennifer to lip mucosa 12/03/2011 Chronic allergic rhinitis 07/21/2017 Chronic right-sided low back pain 10/03/2016 Clostridium difficile colitis 2007 Elevated hemoglobin A1c 05/14/2019 Elevated plasma metanephrines 01/27/2018 Saw endo and no concern for Pheo. 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/2009 Thoracic or lumbosacral neuritis or radiculitis, unspecified 12/22/2008 Well adult exam 07/21/2017 last done: 05/14/2019 Previous Surgical History PAST SURGICAL HISTORY Procedure Laterality Date COLONOSCOPY FLX DX W/COLLJ SPEC WHEN PFRMD Colonoscopy FECAL OCCULT BLOOD TEST 07/28/2017 negative STRESS ECHO 04/30/2020 negative TONSILLECTOMY PRIMARY/SECONDARY AGE 12/> Age of 38 Family History FAMILY HISTORY Problem Relation Age of Onset Hypertension Mother Heart Father CHF Heart Paternal Grandmother Stroke Paternal Grandmother Diabetes Paternal Aunt Patient Allergies ALLERGIES Allergen Reactions Sulfa (Sulfonamide * Rash Augmentin [Amoxicil* Intolerance Patient had diarrhea and possibly a mild skin rash with prior use of Augmentin. She has subsequently taken amoxicillin and tolerated this without adverse reaction. Cats Intolerance Echinacea Swelling Pollen Intolerance Ragweed Intolerance Current Medications Current Outpatient Medications on File Prior to Visit Medication Sig hydroCHLOROthiazide (HYDRODIURIL, ESIDRIX) 12.5 mg capsule Take 1 capsule by mouth once daily. lisinopril (ZESTRIL,PRINIVIL) 30 mg tablet TAKE 1 TABLET BY MOUTH EVERY DAY alendronate (FOSAMAX) 70 mg tablet Take 1 tablet by mouth one time a week. In AM with cup of water on empty stomach. Nothing else by mouth and stay upright for 30 min. aspirin, enteric coated (ASPIRIN, ENTERIC COATED) 81 mg EC tablet Take 1 tablet by mouth once daily. potassium chloride SR (MICRO-K) 8 mEq cpER Take 1 capsule by mouth twice daily. zolpidem (AMBIEN) 10 mg Take 1 tablet by mouth at bedtime as needed for up to 180 days. FOR INSOMNIA multivitamin/iron/folic acid (CENTRUM WOMEN ORAL) Take by mouth. acyclovir (ZOVIRAX) 800 mg tablet 1 tablet three times daily. cholecalciferol (VITAMIN D3) 1,000 unit tab tablet Take 1,000 Units by mouth twice daily. acetaminophen/chlorpheniramine (CORICIDIN HBP COLD AND FLU ORAL) Take by mouth. GYMNEMA LEAF, BULK, MISC triamcinolone acetonide (NASACORT AQ) 55 mcg nasal inhaler Use 2 Sprays in each nostril once daily. loratadine (CLARITIN) 10 mg tablet Take 1 tablet by mouth once daily. psyllium husk (DAILY FIBER ORAL) Take by mouth. phylicia-fiber daily (Patient not taking: No sig reported) Current Facility-Administered Medications on File Prior to Visit Medication perflutren lipid microspheres 1.3 mL in NaCl (PF) 0.9% 10 mL (more content not included)... [facility] 12-11-2022 History of Presen t illness Narrative Chief Complaint Patient presents with: Sore Throat: X 2/3 days, Exposed to strep. Ear Pain: Right ear HPI Paz Harrington is a 72 year old female who presents here today for Above Complaints. Per nurse triage today 12/11/2022: Reason for call: Sore throat and right ear pain Outcome: Patient was conferenced to Kristen in [facility]ointment Center for PCP scheduling. Reason for Disposition SEVERE (e.g., excruciating) throat pain Answer Assessment - Initial Assessment Questions 1. STREP EXPOSURE: yes, grand daughter this weekend, she stayed overnight 12/09/22 2. ONSET: 12/10/22 3. PROVEN STREP: yes, child was tested 12/10/22 4. STREP SYMPTOMS: constant sore throat rated 8/10, unable to describe, no pain medicine taken and right ear pain rated 3/10 5. VIRAL SYMPTOMS: fatigue, up since 0200, is probably drinking less fluids than normal today, but last urinated a couple of hours ago. 6. : n/a; postmenopausal Today: Early 2 days ago started with fatigue and sore throat. Right side of throat hurts worse than left. Has right ear pain and sinus pressure as well. Pain wakes her up. Has been up since 2:00 this morning. Normally has dry mouth, but is worse now. Suspect low-grade fever, has had chills. No change in normal body aches. Has not tried any medications. Past medical history, appointments, medications, allergies reviewed. Previous Medical History PAST MEDICAL HISTORY Diagnosis Date Advance directive discussed with patient 07/26/2022 Discussed 07/2022 Age-related osteoporosis without current pathological fracture 11/30/2009 Candidal cheilitis 12/03/2011 Cheilitis: lower lip: along jennifer to lip mucosa 12/03/2011 Chronic allergic rhinitis 07/21/2017 Chronic right-sided low back pain 10/03/2016 Clostridium difficile colitis 2006 Elevated hemoglobin A1c 05/14/2019 Elevated plasma metanephrines 01/27/2018 Saw endo and no concern for Pheo. 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/2009 Thoracic or lumbosacral neuritis or radiculitis, unspecified 12/22/2008 Well adult exam 07/21/2017 last done: 05/14/2019 Previous Surgical History PAST SURGICAL HISTORY Procedure Laterality Date COLONOSCOPY FLX DX W/COLLJ SPEC WHEN PFRMD Colonoscopy FECAL OCCULT BLOOD TEST 07/28/2017 negative STRESS ECHO 04/30/2020 negative TONSILLECTOMY PRIMARY/SECONDARY AGE 12/> Age of 38 Family History FAMILY HISTORY Problem Relation Age of Onset Hypertension Mother Heart Father CHF Heart Paternal Grandmother Stroke Paternal Grandmother Diabetes Paternal Aunt Patient Allergies ALLERGIES Allergen Reactions Sulfa (Sulfonamide * Rash Augmentin [Amoxicil* Intolerance Patient had diarrhea and possibly a mild skin rash with prior use of Augmentin. She has subsequently taken amoxicillin and tolerated this without adverse reaction. Cats Intolerance Echinacea Swelling Pollen Intolerance Ragweed Intolerance Current Medications Current Outpatient Medications on File Prior to Visit Medication Sig hydroCHLOROthiazide (HYDRODIURIL, ESIDRIX) 12.5 mg capsule Take 1 capsule by mouth once daily. lisinopril (ZESTRIL,PRINIVIL) 30 mg tablet TAKE 1 TABLET BY MOUTH EVERY DAY alendronate (FOSAMAX) 70 mg tablet Take 1 tablet by mouth one time a week. In AM with cup of water on empty stomach. Nothing else by mouth and stay upright for 30 min. aspirin, enteric coated (ASPIRIN, ENTERIC COATED) 81 mg EC tablet Take 1 tablet by mouth once daily. potassium chloride SR (MICRO-K) 8 mEq cpER Take 1 capsule by mouth twice daily. zolpidem (AMBIEN) 10 mg Take 1 tablet by mouth at bedtime as needed for up to 180 days. FOR INSOMNIA multivitamin/iron/folic acid (CENTRUM WOMEN ORAL) Take by mouth. acyclovir (ZOVIRAX) 800 mg tablet 1 tablet three times daily. cholecalciferol (VITAMIN D3) 1,000 unit tab tablet Take 1,000 Units by mouth twice daily. acetaminophen/chlorpheniramine (CORICIDIN HBP COLD AND FLU ORAL) Take by mouth. GYMNEMA LEAF, BULK, MISC triamcinolone acetonide (NASACORT AQ) 55 mcg nasal inhaler Use 2 Sprays in each nostril once daily. loratadine (CLARITIN) 10 mg tablet Take 1 tablet by mouth once daily. psyllium husk (DAILY FIBER ORAL) Take by mouth. phylicia-fiber daily (Patient not taking: No sig reported) Current Facility-Administered Medications on File Prior to Visit Medication perflutren lipid microspheres 1.3 mL in NaCl (PF) 0.9% 10 mL injection (DEFINITY) sodium chloride 0.9 % (flush) 10 mL (BD POSIFLUSH) Social History Social History Tobacco Use Smoking status: Never Smokeless tobacco: Never Vaping Use Vaping Use: Never used Substance Use Topics Alcohol use: No Drug use: No Review of Symptoms REVIEW OF SYSTEMS See HPI, otherwise negative EXAM: BP 124/78 (BP Site: Left Arm, BP Position: Sitting, BP Cuff Size: Regular Adult) Pulse 85 Temp 37.2 C (99 F) (Temporal) Resp 16 Wt 42.3 kg (93 lb 3.2 oz) SpO2 100% BMI 18.20 kg/m General Appearance: ill-appearing, non-toxic, alert, in no acute distress, well-hydrated, well nourished. Head: Normocephalic, no masses, lesions, tenderness or abnormalities. Eyes: Anicteric sclera. Pupils are equally round and reactive to light. Extraocular movements are intact. . Ears: clear fluid bubbles posterior to right TM. Nose/Sinuses: Nares normal, septum midline, mucosa normal, no drainage or sinus tenderness. Oropharynx: Lips, mucosa, and tongue normal, teeth and gums normal, oropharynx normal. Neck: Supple, no adenopathy; thyroid symmetric, normal size, no bruits. Lungs: Lungs clear to auscultation. No wheezing, rhonchi, rales.. Heart: RRR without murmur, gallop, or rubs. No ectopy. Health Maintenance List BP CONTROLLED (<130/80) Never done MAMMOGRAM due on 05/04/2022 ADVANCE DIRECTIVE DISCUSSION due on 10/15/2022 DEPRESSION ASSESSMENT due on 10/15/2022 DTAP,TDAP,TD(2 - Td or Tdap) due on 10/31/2022 ANNUAL PCP TEAM CHRONIC DISEASE VISIT due on 09/06/2023 DIABETES SCREEN due on 07/29/2025 COLORECTAL CANCER SCREENING due on 11/24/2025 LIPID SCREEN due on 07/29/2027 BONE DENSITY Completed SHINGRIX VACCINE Completed COVID-19 VACCINE Completed PNEUMOCOCCAL: 65+ Completed INFLUENZA Discontinued HEPATITIS C SCREENING Discontinued Data reviewed Previous records, office notes ASSESSMENT/PLAN: 1. Sore throat - ICD9: 462, ICD10: J02.9 (primary diagnosis) Suspect early strep throat r/t known exposure. R/o COVID, influenza. Tx with amoxicillin x10 days. Supportive care. Push fluids. - RAPID STREP TEST B/O - FLUTICASONE PROPIONATE 50 MCG/ACTUATION NASAL SPRAY,SUSPENSION - STREP A MOLECULAR (POC) - COVID WITH FLUA+B, ROUTINE - AMOXICILLIN 400 MG/5 ML ORAL SUSPENSION - GROUP A STREPTOCOCCUS BY PCR 2. Strep throat exposure - ICD9: V01.89, ICD10: Z20.818 Suspect early strep throat r/t known exposure. R/o COVID, influenza. Tx with amoxicillin x10 days. Supportive care. Push fluids. - RAPID STREP TEST B/O - FLUTICASONE PROPIONATE 50 MCG/ACTUATION NASAL SPRAY,SUSPENSION - STREP A MOLECULAR (POC) - COVID WITH FLUA+B, ROUTINE - AMOXICILLIN 400 MG/5 ML ORAL SUSPENSION - GROUP A STREPTOCOCCUS BY PCR 3. Sinus pressure - ICD9: 478.19, ICD10: J34.89 Suspect early strep throat r/t known exposure. R/o COVID, influenza. Tx with amoxicillin x10 days. Supportive care. Push fluids. - FLUTICASONE PROPIONATE 50 MCG/ACTUATION NASAL SPRAY,SUSPENSION - STREP A MOLECULAR (POC) - COVID WITH FLUA+B, ROUTINE - AMOXICILLIN 400 MG/5 ML ORAL SUSPENSION - GROUP A STREPTOCOCCUS BY PCR 4. Right ear pain - ICD9: 388.70, ICD10: H92.01 Suspect early strep throat r/t known exposure. R/o COVID, influenza. Tx with amoxicillin x10 days. Supportive care. Push fluids. - FLUTICASONE PROPIONATE 50 MCG/ACTUATION NASAL SPRAY,SUSPENSION - STREP A MOLECULAR (POC) - COVID WITH FLUA+B, ROUTINE - AMOXICILLIN 400 MG/5 ML ORAL SUSPENSION - GROUP A STREPTOCOCCUS BY PCR 5. Non-recurrent acute serous otitis media of right ear - ICD9: 381.01, ICD10: H65.01 Suspect early strep throat r/t known exposure. R/o COVID, influenza. Tx with amoxicillin x10 days. Supportive care. Push fluids. - FLUTICASONE PROPIONATE 50 MCG/ACTUATION NASAL SPRAY,SUSPENSION - STREP A MOLECULAR (POC) - COVID WITH FLUA+B, ROUTINE - AMOXICILLIN 400 MG/5 ML ORAL SUSPENSION - GROUP A STREPTOCOCCUS BY PCR Molly Lopez APRN.GIS GEOGRAPHER TEACHING PROVIDER (Physician/PA/TIN POURER) NOTE OF PERSONAL INVOLVEMENT IN CARE: I have personally seen and examined the patient and performed the medical decision-making components. I have reviewed the Advanced Practice Registered Nurse (TIN POURER) Student's documentation and verified the findings in the note as written. Any additions or changes are noted in bold/italics. Signature: Molly Lopez Date: 12/11/2022 Time: 11:34 AM documented in this encounter [facility] 12-11-2022 Miscellaneous Notes Formattin g of this note might be different from the original. Reason for call: Sore throat and right ear pain Outcome: Patient was conferenced to Kristen in [facility]ointment Center for PCP scheduling. Reason for Disposition SEVERE (e.g., excruciating) throat pain Answer Assessment - Initial Assessment Questions 1. STREP EXPOSURE: yes, grand daughter this weekend, she stayed overnight 12/09/22 2. ONSET: 12/10/22 3. PROVEN STREP: yes, child was tested 12/10/22 4. STREP SYMPTOMS: constant sore throat rated 8/10, unable to describe, no pain medicine taken and right ear pain rated 3/10 5. VIRAL SYMPTOMS: fatigue, up since 0200, is probably drinking less fluids than normal today, but last urinated a couple of hours ago. 6. : n/a; postmenopausal Protocols used: Strep Throat [id number] documented in this encounter [facility] 11-13-2022 Miscellaneous Notes Formattin g of this note is different from the original. Patient has been identified by name and date of : Yes Requested Prescriptions Pending Prescriptions Disp Refills hydroCHLOROthiazide (HYDRODIURIL, ESIDRIX) 12.5 mg capsule 90 capsule 1 Sig: Take 1 capsule by mouth once daily. RX INSTRUCTIONS: Patient aware RX will be sent to pharmacy. No need to notify patient. Kaci Kitchen RN documented in this encounter [facility] 10-20-2022 Miscellaneous Notes Formattin g of this note might be different from the original. Prescription was filled on 10/19/2022 Heidy Thayer MA Patient has been identified by name and date of : Yes Last office visit in this department: Visit date not found RX INSTRUCTIONS: Patient aware RX will be sent to pharmacy. No need to notify patient. Patient phones requesting refills as follows: Requested Prescriptions Pending Prescriptions Disp Refills lisinopril (ZESTRIL,PRINIVIL) 30 mg tablet 30 tablet 5 Sig: Take 1 tablet by mouth once daily. Please review and advise. Margaret Benton Pss documented in this encounter [facility] 10-19-2022 Miscellaneous Notes Formattin g of this note is different from the original. The following approved medication requests have been transmitted electronically. Requested Prescriptions Signed Prescriptions Disp Refills lisinopril (ZESTRIL,PRINIVIL) 30 mg tablet 30 tablet 5 Sig: TAKE 1 TABLET BY MOUTH EVERY DAY Authorizing Provider: CONSTANCE KLEIN PA-C Patient phones requesting refills as follows: Requested Prescriptions Pending Prescriptions Disp Refills lisinopril (ZESTRIL,PRINIVIL) 30 mg tablet [Pharmacy Med Name: LISINOPRIL 30 MG TABLET] 30 tablet 0 Sig: TAKE 1 TABLET BY MOUTH EVERY DAY RAJWINDER-09/06/22 Labs-07/26/22 NOV-01/24/22 med filled 09/06/22 Please review and advise. Paz Chang LPN documented in this encounter [facility] 09-08-2022 Miscellaneous Notes Formattin g of this note might be different from the original. Pt informed, verbalized understanding Amara Capone Ma No problem. Both rx sent to pharmacy. Tamiflu 2x per day x 5 days. Tessalone perles as needed for cough TID. Thank you, Joelle Katz APRN.GIS GEOGRAPHER The following approved medication requests have been transmitted electronically. Requested Prescriptions Pending Prescriptions Disp Refills oseltamivir (TAMIFLU) 75 mg capsule 10 capsule 0 Sig: Take 1 capsule by mouth twice daily for 5 days. benzonatate (TESSALON PERLES) 100 mg capsule 30 capsule 0 Sig: Take 1 capsule by mouth three times daily as needed for cough. Joelle Katz APRN.CNP Patient calling back asking if she can also have Tamiflu rx? Patient said she thinks her symptoms began Sunday, really feeling sick on Sunday. Please advise Pt informed, verbalized understanding. Pt asking if Rx for cough can be sent to [facility] in [place]. Amara Capone Ma Please call patient and let her know that COVID was negative. However, influenza A was positive. Please rest and increase fluids as much as possible. If symptoms do not improve within 5 days, please let us know. Thank you, Joelle Katz APRN.SONDRA documented in this encounter [facility] 09-06-2022 History of Presen t illness Narrative Chief Complaint Patient presents with: Follow Up: On / HPI Paz Harrington is a 71 year old female who presents here today for Above Complaints. Lexie is an established patient of Dr. Benedict MD. Lexie is following up with me today following BP medication change from our last visit. BP check--- Increased lisinopril to 30 mg daily at last visit. Pt reports tolerating increased dosage well. She states compliant with current blood pressure medication(s). She does check BP at home. Average home readings: 115-125/60-70s. Checks BP about every other day. She denies chest pain, shortness of breath, palpitations, dizziness, leg edema, headaches, or vision changes. Very slightly elevated BP from at home readings-- may be due to current illness. Cough/fatigue-- Pt reports sudden onset of cough, congestion, headache, and extreme fatigue since this morning. 5 year old grandchild with sinus infection and on antibiotic. Daughter dx positive with influenza yesterday. Has been around both of these sick contacts. Took afrin spray and OTC cold/flu medicine today -- didn't give much relief. Denies any CP, SOB, dizziness, or palpitations. Past medical history, appointments, medications, allergies reviewed. Previous Medical History PAST MEDICAL HISTORY Diagnosis Date Advance directive discussed with patient 07/26/2022 Discussed 07/2022 Age-related osteoporosis without current pathological fracture 11/30/2009 Candidal cheilitis 12/03/2011 Cheilitis: lower lip: along jennifer to lip mucosa 12/03/2011 Chronic allergic rhinitis 07/21/2017 Chronic right-sided low back pain 10/03/2016 Clostridium difficile colitis 2006 Elevated hemoglobin A1c 05/14/2019 Elevated plasma metanephrines 01/27/2018 Saw endo and no concern for Pheo. 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/2009 Thoracic or lumbosacral neuritis or radiculitis, unspecified 12/22/2008 Well adult exam 07/21/2017 last done: 05/14/2019 Previous Surgical History PAST SURGICAL HISTORY Procedure Laterality Date COLONOSCOPY FLX DX W/COLLJ SPEC WHEN PFRMD Colonoscopy FECAL OCCULT BLOOD TEST 07/28/2017 negative STRESS ECHO 04/30/2020 negative TONSILLECTOMY PRIMARY/SECONDARY AGE 12/> Age of 38 Family History FAMILY HISTORY Problem Relation Age of Onset Hypertension Mother Heart Father CHF Heart Paternal Grandmother Stroke Paternal Grandmother Diabetes Paternal Aunt Patient Allergies ALLERGIES Allergen Reactions Sulfa (Sulfonamide * Rash Augmentin [Amoxicil* Intolerance Patient had diarrhea and possibly a mild skin rash with prior use of Augmentin. She has subsequently taken amoxicillin and tolerated this without adverse reaction. Cats Intolerance Echinacea Swelling Pollen Intolerance Ragweed Intolerance Current Medications Current Outpatient Medications on File Prior to Visit Medication Sig alendronate (FOSAMAX) 70 mg tablet Take 1 tablet by mouth one time a week. In AM with cup of water on empty stomach. Nothing else by mouth and stay upright for 30 min. lisinopril (ZESTRIL,PRINIVIL) 30 mg tablet take 1 tablet by mouth once daily aspirin, enteric coated (ASPIRIN, ENTERIC COATED) 81 mg EC tablet Take 1 tablet by mouth once daily. zolpidem (AMBIEN) 10 mg Take 1 tablet by mouth at bedtime as needed for up to 180 days. FOR INSOMNIA hydroCHLOROthiazide (HYDRODIURIL, ESIDRIX) 12.5 mg capsule Take 1 capsule by mouth once daily. multivitamin/iron/folic acid (CENTRUM WOMEN ORAL) Take by mouth. acyclovir (ZOVIRAX) 800 mg tablet 1 tablet three times daily. cholecalciferol (VITAMIN D3) 1,000 unit tab tablet Take 1,000 Units by mouth twice daily. acetaminophen/chlorpheniramine (CORICIDIN HBP COLD AND FLU ORAL) Take by mouth. GYMNEMA LEAF, BULK, MISC triamcinolone acetonide (NASACORT AQ) 55 mcg nasal inhaler Use 2 Sprays in each nostril once daily. loratadine (CLARITIN) 10 mg tablet Take 1 tablet by mouth once daily. potassium chloride SR (MICRO-K) 8 mEq cpER Take 1 capsule by mouth twice daily. psyllium husk (DAILY FIBER ORAL) Take by mouth. phylicia-fiber daily (Patient not taking: Reported on 07/17/2022) Current Facility-Administered Medications on File Prior to Visit Medication perflutren lipid microspheres 1.3 mL in NaCl (PF) 0.9% 10 mL injection (DEFINITY) sodium chloride 0.9 % (flush) 10 mL (BD POSIFLUSH) Social History Social History Tobacco Use Smoking status: Never Smokeless tobacco: Never Vaping Use Vaping Use: Never used Substance Use Topics Alcohol use: No Drug use: No REVIEW OF SYSTEMS: as above Reviewed relevant PMHx, PSHx, Social Hx, current medications and allergies. Review of Symptoms REVIEW OF SYSTEMS See HPI. All other systems are negative. EXAM: BP 138/58 (BP Site: Left Arm, BP Position: Sitting, BP Cuff Size: Regular Adult) Pulse 89 Temp 37.4 C (99.4 F) Resp 16 Wt 42.8 kg (94 lb 6.4 oz) SpO2 97% BMI 18.44 kg/m General Appearance: Well appearing, alert, in no acute distress, well-hydrated, well nourished.. Skin: Skin color, texture, turgor normal, no suspicious rashes or lesions. Head: Normocephalic, no masses, lesions, tenderness or abnormalities. Eyes: Anicteric sclera. Pupils are equally round and reactive to light. Extraocular movements are intact. . Ears: External ears normal, canals clear. Nose/Sinuses: Nares normal, septum midline, mucosa normal, no drainage or sinus tenderness. Oropharynx: Lips, mucosa, and tongue normal, teeth and gums normal, oropharynx normal. Neck: Supple, no adenopathy; thyroid symmetric, normal size, no bruits. Back:no pain to palpation of vertebrae, good flexion and extension, good range of motion, no muscle tenderness, reflexes are 2+ and symmetric, motor and sensory appear to be normal, negative SLR test, no evidence of scoliosis Lungs: Lungs clear to auscultation. No wheezing, rhonchi, rales.. Heart: RRR without murmur, gallop, or rubs. No ectopy. Health Maintenance List BP CONTROLLED (<130/80) Never done MAMMOGRAM due on 05/04/2022 DTAP,TDAP,TD(2 - Td or Tdap) due on 10/31/2022 ANNUAL PCP TEAM CHRONIC DISEASE VISIT due on 08/09/2023 DIABETES SCREEN due on 07/29/2025 COLORECTAL CANCER SCREENING due on 11/24/2025 LIPID SCREEN due on 07/29/2027 BONE DENSITY Completed ADVANCE DIRECTIVE DISCUSSION Completed DEPRESSION ASSESSMENT Completed SHINGRIX VACCINE Completed COVID-19 VACCINE Completed PNEUMOCOCCAL: 65+ Completed INFLUENZA Discontinued HEPATITIS C SCREENING Discontinued ASSESSMENT/PLAN: 1. Primary hypertension - ICD9: 401.9, ICD10: I10 (primary diagnosis) - good control - factors affecting control of BP include acute illness. Home readings have all been WNL. - Continue current medication(s) - Encouraged dietary sodium restriction/DASH diet - Recommended regular aerobic exercise. - Recommend home blood pressure monitoring, to bring results in on next visit - Goal of BP <130/80 - Recommend home or pharmacy blood pressure monitoring - Recommended no refined sugar, low refined starch, healthy oil intake (olive oil), healthy protein (fish) along the lines of the Mediterranean diet. - LISINOPRIL 30 MG TABLET 2. Headache, unspecified headache type - ICD9: 784.0, ICD10: R51.9 Likely viral with sudden onset and sick contact diagnosis. COVID and flu testing in office -- discusses CDC guidelines. Check Mychart tomorrow due to holiday. Will relay results on Sunday via telephone call once in office. Increase fluids and rest. Discussed mucinex OTC for relief. Discussed red flag symptoms and when to seek immediate medical attention. - COVID WITH FLUA+B, ROUTINE 3. Acute cough - ICD9: 786.2, ICD10: R05.1 See above. - COVID WITH FLUA+B, ROUTINE RTO as needed if symptoms worsen. Prescription instructions reviewed with patient as applicable. Potential red flag symptoms discussed with the patient. Reviewed appropriate action plan to take if red flag symptoms occur. Patient agreeable to treatment plan. Joelle Katz APRN.SONDRA [address] [place] [address] documented in this encounter [facility] 09-05-2022 Miscellaneous Notes Formattin g of this note might be different from the original. Patient notified of Rx, verbalizes understanding of instructions. Paz Chang LPN Let patient know I looked back in her records and found she had been on Actonel back in 2008 but it does not say why it was stopped. I sent a script in for the fosamax and if any issues have her let me know. The following approved medication requests have been transmitted electronically. Requested Prescriptions Signed Prescriptions Disp Refills alendronate (FOSAMAX) 70 mg tablet 12 tablet 3 Sig: Take 1 tablet by mouth one time a week. In AM with cup of water on empty stomach. Nothing else by mouth and stay upright for 30 min. Authorizing Provider: FABIAN MCMULLEN MD Spoke with patient and gave results and instructions. Patient voiced understanding. Patient indicated that she has been taking the Vitamin D but not the calcium. She will re-start the calcium. She also mentioned that before seeing Dr. Mcmullen she was placed on a prescription for her bones but had a reaction. She was unable to remember the medication or the reaction. She is still willing to try the medication. Pharmacy verified. Heidy Thayer MA Let patient know her bone strength study shows her bones have become weaker and no shows changes consistent with osteoporosis. Based on these changes she has a 15% chance of a major bone fracture in the next 10 years. Advise would be to make sure she is getting 2,000 international unit(s) 's of Vit D a day. 600 mg of calcium twice a day and walking for exercise. I would also advise we start her on Fosamax 70 mg once a week. documented in this encounter [facility] 08-31-2022 Miscellaneous Notes Formattin g of this note is different from the original. Patient has been identified by name and date of : Yes Patient phones for refill(s): Requested Prescriptions Pending Prescriptions Disp Refills lisinopril (ZESTRIL,PRINIVIL) 30 mg tablet [Pharmacy Med Name: LISINOPRIL 30 MG TABLET] 30 tablet 0 Sig: take 1 tablet by mouth once daily Date of last office visit in primary care: 08/09/22 Please advise. Thank you. Hayley Gibbs LPN documented in this encounter [facility] 08-09-2022 Nurse Note Pt received her covid booster in office today as ordered. Pt tolerated well. documented in this encounter [facility] 08-09-2022 History of Presen t illness Narrative Chief Complaint Patient presents with: Blood Pressure: Htn, covid booster HPI Paz Harrington is a 71 year old female who presents here today for Above Complaints. Lexie is an established patient of Dr. Benedict MD. Lexie is a new patient to me today. Concerns today.. HTN -- On lisinopril 20 mg daily and HCTZ 12.5 mg daily With recent wellness exam visit with Dr. Mcmullen on 07/26, BP was elevated. Here today for BP check. She states compliant with current blood pressure medication(s). She does check BP at home. Average home readings: range from 120-150/80s. Has wrist and arm cuff she uses. She denies chest pain, shortness of breath, palpitations, dizziness, leg edema, headaches, or vision changes. Recent appointment with Dr. Mcmullen on 07/17 d/t dizziness-- these symptoms have subsided. Pt very hesitant and anxious about increasing HTN regimen. Came to appointment with printed out research of BP medication options. Interest in calcium channel ale per her own research. Reports mild dry mouth with lisinopril. Last 14 Encounter BP Readings: Date: BP: 08/09/2022 140/58 07/26/2022 152/64 07/17/2022 120/62 01/04/2022 130/68 09/12/2021 122/60 07/06/2021 114/70 04/13/2021 120/66 12/29/2020 112/60 12/22/2020 120/54 06/22/2020 134/72 04/21/2020 140/80 11/19/2019 132/70 11/05/2019 110/68 10/13/2019 136/76 Recent EKG, ECHO, and US carotids. Unremarkable. Recent lab work done. Potassium level WNL on recent CMP on 07/17/22. Past medical history, appointments, medications, allergies reviewed. Previous Medical History PAST MEDICAL HISTORY Diagnosis Date Advance directive discussed with patient 07/26/2022 Discussed 07/2022 Candidal cheilitis 12/03/2011 Cheilitis: lower lip: along jennifer to lip mucosa 12/03/2011 Chronic allergic rhinitis 07/21/2017 Chronic right-sided low back pain 10/03/2016 Clostridium difficile colitis 2007 Elevated hemoglobin A1c 05/14/2019 Elevated plasma metanephrines 01/27/2018 Saw endo and no concern for Pheo. 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/2009 Thoracic or lumbosacral neuritis or radiculitis, unspecified 12/22/2008 Well adult exam 07/21/2017 last done: 05/14/2019 Previous Surgical History PAST SURGICAL HISTORY Procedure Laterality Date COLONOSCOPY FLX DX W/COLLJ SPEC WHEN PFRMD Colonoscopy FECAL OCCULT BLOOD TEST 07/28/2017 negative STRESS ECHO 04/30/2020 negative TONSILLECTOMY PRIMARY/SECONDARY AGE 12/> Age of 38 Family History FAMILY HISTORY Problem Relation Age of Onset Hypertension Mother Heart Father CHF Heart Paternal Grandmother Stroke Paternal Grandmother Diabetes Paternal Aunt Patient Allergies ALLERGIES Allergen Reactions Sulfa (Sulfonamide * Rash Augmentin [Amoxicil* Intolerance Patient had diarrhea and possibly a mild skin rash with prior use of Augmentin. She has subsequently taken amoxicillin and tolerated this without adverse reaction. Cats Intolerance Echinacea Swelling Pollen Intolerance Ragweed Intolerance Current Medications Current Outpatient Medications on File Prior to Visit Medication Sig aspirin, enteric coated (ASPIRIN, ENTERIC COATED) 81 mg EC tablet Take 1 tablet by mouth once daily. potassium chloride SR (MICRO-K) 8 mEq cpER Take 1 capsule by mouth twice daily. zolpidem (AMBIEN) 10 mg Take 1 tablet by mouth at bedtime as needed for up to 180 days. FOR INSOMNIA hydroCHLOROthiazide (HYDRODIURIL, ESIDRIX) 12.5 mg capsule Take 1 capsule by mouth once daily. lisinopril (ZESTRIL, PRINIVIL) 20 mg tablet Take 1 tablet by mouth once daily. multivitamin/iron/folic acid (CENTRUM WOMEN ORAL) Take by mouth. acyclovir (ZOVIRAX) 800 mg tablet 1 tablet three times daily. cholecalciferol (VITAMIN D3) 1,000 unit tab tablet Take 1,000 Units by mouth twice daily. acetaminophen/chlorpheniramine (CORICIDIN HBP COLD AND FLU ORAL) Take by mouth. loratadine (CLARITIN) 10 mg tablet Take 1 tablet by mouth once daily. psyllium husk (DAILY FIBER ORAL) Take by mouth. phylicia-fiber daily (Patient not taking: Reported on 07/17/2022) GYMNEMA LEAF, BULK, MISC triamcinolone acetonide (NASACORT AQ) 55 mcg nasal inhaler Use 2 Sprays in each nostril once daily. Current Facility-Administered Medications on File Prior to Visit Medication perflutren lipid microspheres 1.3 mL in NaCl (PF) 0.9% 10 mL injection (DEFINITY) sodium chloride 0.9 % (flush) 10 mL (BD POSIFLUSH) Social History Social History Tobacco Use Smoking status: Never Smokeless tobacco: Never Vaping Use Vaping Use: Never used Substance Use Topics Alcohol use: No Drug use: No REVIEW OF SYSTEMS: as above Reviewed relevant PMHx, PSHx, Social Hx, current medications and allergies. Review of Symptoms REVIEW OF SYSTEMS See HPI. All other systems are negative. EXAM: BP 140/58 (BP Site: Left Arm, BP Position: Sitting, BP Cuff Size: Regular Adult) Pulse 70 Resp 14 Wt 42.8 kg (94 lb 6.4 oz) BMI 18.44 kg/m General Appearance: Well appearing, alert, in no acute distress, well-hydrated, well nourished.. Skin: Skin color, texture, turgor normal, no suspicious rashes or lesions. Head: Normocephalic, no masses, lesions, tenderness or abnormalities. Lungs: Lungs clear to auscultation. No wheezing, rhonchi, rales.. Heart: RRR without murmur, gallop, or rubs. No ectopy. Health Maintenance List BP CONTROLLED (<130/80) Never done COVID-19 VACCINE(4 - Booster for Pfizer series) due on 10/13/2021 MAMMOGRAM due on 05/04/2022 DTAP,TDAP,TD(2 - Td or Tdap) due on 10/31/2022 ANNUAL PCP TEAM CHRONIC DISEASE VISIT due on 07/26/2023 DIABETES SCREEN due on 07/29/2025 COLORECTAL CANCER SCREENING due on 11/24/2025 LIPID SCREEN due on 07/29/2027 BONE DENSITY Completed ADVANCE DIRECTIVE DISCUSSION Completed DEPRESSION ASSESSMENT Completed SHINGRIX VACCINE Completed PNEUMOCOCCAL: 65+ Completed INFLUENZA Discontinued HEPATITIS C SCREENING Discontinued ASSESSMENT/PLAN: 1. Essential hypertension, benign - ICD9: 401.1, ICD10: I10 (primary diagnosis) - suboptimal control - Increase lisinopril (Zestril/Prinivil) to 30 mg daily. Pt concerned for increase in dry mouth with increasing this medication dosage. RTO in 2 weeks for BP check. If dry mouth worsening, we discussed adding amlodipine to regimen instead if needed. Pt agreeable. Pt refused increasing HCTZ due to diuretic and increase in urination concerns. - Recommended regular aerobic exercise. - Recommend home blood pressure monitoring, to bring results in on next visit. Discussed need for new BP cuff due to readings more than 20 mmHg different than office reading. Pt agreeable. - Goal of BP <130/80 2. Encounter for immunization - ICD9: V03.89, ICD10: Z23 - P[employer]ER-[employer] COVID-19 BIVALENT BOOSTER VACCINE, AGE 12+ YR RTO in 2 weeks, sooner if needed. Prescription instructions reviewed with patient as applicable. Potential red flag symptoms discussed with the patient. Reviewed appropriate action plan to take if red flag symptoms occur. Patient agreeable to treatment plan. Joelle Katz APRN.SONDRA [address] [place] [address] documented in this encounter [facility] 08-03-2022 Miscellaneous Notes Formattin g of this note might be different from the original. Cubicl message sent to patient Chey Ponce Cma Let patient know the US of her neck arteries shows some fibrous scaring, however, there is no significant narrowing or blockage noted on either side. Treatment for this to prevent blockage is good BP control, lipid management (hers has been fine) and to start taking a baby aspirin 81 mg once a day. documented in this encounter [facility] 07-31-2022 Miscellaneous Notes Formattin g of this note might be different from the original. Patient notified and voiced understanding. Heidy Thayer MA Let patient know blood sugar A1c slightly elevated at 5.8%. Continue to try to reduce carbs, sugars and starches in diet. Lipid panel and UA were both ok. documented in this encounter [facility] 07-29-2022 Miscellaneous Notes Formattin g of this note might be different from the original. Left detailed message for patient with PCP instructions. Heidy Thayer MA Let patient know there is a A1c test with the labs already. Tell her when she comes in to tell the desk people she needs the three labs ordered 01/04/2022 and expected by 06/23/2022 completed. Patient asking if she should have her HGBA1c done again, she had hers done in 12/2021. Plans to come in the next couple of days to have the Lipid Panel and Urinalysis done. documented in this encounter [facility] 07-27-2022 Miscellaneous Notes Formattin g of this note might be different from the original. Patient notified. Verbalized understanding. Let patient know the thyroid lab and CBC were ok. The US of her heart showed normal function. There was mild leaking of one of the valves but this is common as we get older and will monitor for now. documented in this encounter [facility] 07-26-2022 History of Presen t illness Narrative Chief Complaint Patient presents with: Physical HPI Paz Harrington is a 71 year old female who presents here today for Medicare Annual Visit. Patient with Hx of HTN, insomnia, elevated A1c, allergic rhinitis, cold sores as well as those reviewed and addressed below and in ROS. Since last being seen patient has not had any further dizziness. Has been doing well no new concerns or issues. Past medical history, appointments, medications, allergies reviewed. Previous Medical History PAST MEDICAL HISTORY Diagnosis Date Candidal cheilitis 12/03/2011 Cheilitis: lower lip: along jennifer to lip mucosa 12/03/2011 Chronic allergic rhinitis 07/21/2017 Chronic right-sided low back pain 10/03/2016 Clostridium difficile colitis 2006 Elevated hemoglobin A1c 05/14/2019 Elevated plasma metanephrines 01/27/2018 Saw endo and no concern for Pheo. Essential hypertension, benign LALO (generalized anxiety disorder) 12/29/2020 Insomnia 11/29/2016 Lactose intolerance Lactose intolerance Normocytic anemia 09/29/2016 just in 2015 Osteopenia 11/30/2009 Pruritus 12/03/2011 Recurrent cold sores 11/30/2009 Thoracic or lumbosacral neuritis or radiculitis, unspecified 12/22/2008 Well adult exam 07/21/2017 last done: 05/14/2019 Previous Surgical History PAST SURGICAL HISTORY Procedure Laterality Date COLONOSCOPY FLX DX W/COLLJ SPEC WHEN PFRMD Colonoscopy FECAL OCCULT BLOOD TEST 07/28/2017 negative STRESS ECHO 04/30/2020 negative TONSILLECTOMY PRIMARY/SECONDARY AGE 12/> Age of 38 Family History FAMILY HISTORY Problem Relation Age of Onset Hypertension Mother Heart Father CHF Heart Paternal Grandmother Stroke Paternal Grandmother Diabetes Paternal Aunt Patient Allergies ALLERGIES Allergen Reactions Sulfa (Sulfonamide * Rash Augmentin [Amoxicil* Intolerance Patient had diarrhea and possibly a mild skin rash with prior use of Augmentin. She has subsequently taken amoxicillin and tolerated this without adverse reaction. Cats Intolerance Echinacea Swelling Pollen Intolerance Ragweed Intolerance Current Medications Current Outpatient Medications on File Prior to Visit Medication Sig hydroCHLOROthiazide (HYDRODIURIL, ESIDRIX) 12.5 mg capsule Take 1 capsule by mouth once daily. lisinopril (ZESTRIL, PRINIVIL) 20 mg tablet Take 1 tablet by mouth once daily. potassium chloride SR (MICRO-K) 8 mEq cpER Take 1 capsule by mouth twice daily. multivitamin/iron/folic acid (CENTRUM WOMEN ORAL) Take by mouth. zolpidem (AMBIEN) 10 mg Take 1 tablet by mouth at bedtime as needed for up to 180 days. FOR INSOMNIA acyclovir (ZOVIRAX) 800 mg tablet 1 tablet three times daily. psyllium husk (DAILY FIBER ORAL) Take by mouth. phylicia-fiber daily (Patient not taking: Reported on 07/17/2022) cholecalciferol (VITAMIN D3) 1,000 unit tab tablet Take 1,000 Units by mouth twice daily. acetaminophen/chlorpheniramine (CORICIDIN HBP COLD AND FLU ORAL) Take by mouth. GYMNEMA LEAF, BULK, MISC triamcinolone acetonide (NASACORT AQ) 55 mcg nasal inhaler Use 2 Sprays in each nostril once daily. loratadine (CLARITIN) 10 mg tablet Take 1 tablet by mouth once daily. Current Facility-Administered Medications on File Prior to Visit Medication perflutren lipid microspheres 1.3 mL in NaCl (PF) 0.9% 10 mL injection (DEFINITY) sodium chloride 0.9 % (flush) 10 mL (BD POSIFLUSH) Social History Social History Tobacco Use Smoking status: Never Smokeless tobacco: Never Vaping Use Vaping Use: Never used Substance Use Topics Alcohol use: No Drug use: No Review of Symptoms REVIEW OF SYSTEMS GENERAL: No weight loss, malaise or fevers HEENT: Negative for frequent or significant headaches, No changes in hearing or vision, no nose bleeds or other nasal problems. Had some ringing in the left ear the other day. NECK: Negative for lumps, goiter, pain and significant neck swelling RESPIRATORY: Negative for cough, hemoptysis, wheezing, COPD, dyspnea or shortness of breath CARDIOVASCULAR: Negative for chest pain, leg swelling, hypertension, CHF or palpitations GI: No nausea, vomiting, or diarrhea, No heartburn or reflux symptoms, and no blood : No history of dysuria, blood MUSCULOSKELETAL: Negative for joint pain or swelling, back pain or muscle pain SKIN: Negative for lesions, rash, and itching PSYCH: Negative for sleep disturbance, mood disorder and recent psychosocial stressors HEMATOLOGY/LYMPHOLOGY: Negative for prolonged bleeding, bruising easily or swollen nodes ENDOCRINE: Negative for cold or heat intolerance, polyuria, polydipsia and goiter NEURO: No history of headaches, syncope, paralysis, seizures or tremors EXAM: BP 148/72 (BP Site: Right Arm, BP Position: Sitting, BP Cuff Size: Regular Adult) Pulse 70 Resp 14 Ht 152.4 cm (5') Wt 42.6 kg (94 lb) BMI 18.36 kg/m BP 152/64 Pulse 70 Resp 14 Ht 152.4 cm (5') Wt 42.6 kg (94 lb) BMI 18.36 kg/m Last 4 Encounter Wt Readings: Date: Wt: 07/26/2022 42.6 kg (94 lb) 07/17/2022 41.7 kg (92 lb) 01/04/2022 43.5 kg (96 lb) 09/12/2021 42.9 kg (94 lb 9.6 oz) General Appearance: Well appearing, alert, in no acute distress, well-hydrated, well nourished.. Skin: Skin color, texture, turgor normal, no suspicious rashes or lesions. Head: Normocephalic, no masses, lesions, tenderness or abnormalities. Eyes: Anicteric sclera. Pupils are equally round and reactive to light. Extraocular movements are intact. . Ears: External ears, TM's normal, canals clear. Nose/Sinuses: Nares normal, septum midline, mucosa normal, no drainage or sinus tenderness. Oropharynx: Lips, mucosa, and tongue normal, teeth and gums normal, oropharynx normal. Neck: Supple, no adenopathy; thyroid symmetric, normal size, no bruits. Lungs: Lungs clear to auscultation. No wheezing, rhonchi, rales.. Heart: RRR without murmur, gallop, or rubs. No ectopy. Abdomen: Normal abdominal exam, Abdomen soft, non-tender. Bowel sounds normal. No masses, organomegaly. Extremities: No deformities, edema, skin discoloration, clubbing or cyanosis. Good capillary refill. . Musculoskeletal: Muscular strength intact, No joint swelling, deformity, or tenderness. Peripheral Pulses: Normal. Neurologic: Gait normal. Reflexes normal and symmetric. Sensation to light touch and crainal nerves 2-21 intact.. Health Maintenance List PNEUMOCOCCAL: 65+(1 - PCV) Never done COVID-19 VACCINE(4 - Booster for Pfizer series) due on 10/13/2021 ADVANCE DIRECTIVE DISCUSSION Never done DEPRESSION ASSESSMENT Never done MAMMOGRAM due on 05/04/2022 DTAP,TDAP,TD(2 - Td or Tdap) due on 10/31/2022 ANNUAL PCP TEAM CHRONIC DISEASE VISIT due on 07/17/2023 BP CONTROLLED (<130/80) due on 07/17/2023 DIABETES SCREEN due on 07/17/2025 COLORECTAL CANCER SCREENING due on 11/24/2025 LIPID SCREEN due on 07/11/2026 BONE DENSITY Completed SHINGRIX VACCINE Completed INFLUENZA Discontinued HEPATITIS C SCREENING Discontinued Data reviewed A/P ASSESSMENT/PLAN: 1. Well adult exam - ICD9: V70.0, ICD10: Z00.00 (primary diagnosis) - Counseled on healthy diet and regular exercise - Calcium intake with supplements or by diet of 1000 mg/day for under 50, 7313-1639 mg/day for 50+ - Patient was counseled [id number] by myself (the billing provider) for the following immunizations and vaccine components, including side effects: Pneumococcal . Patient consents for immunization and understands risks and benefits. A VIS sheet on each immunization was given to the patient. - Follow up for annual exam in one year - celestino have return for covid booster. 2. Primary insomnia - ICD9: 307.42, ICD10: F51.01 Cont - ZOLPIDEM 10 MG TABLET - PDMP website checked and validated. All prescriptions have been APPROPRIATELY filled. No suspicious activity was identified. 07/26/2022 by Fabian Mcmullen MD 3. Essential hypertension, benign - ICD9: 401.1, ICD10: I10 - suboptimal control. Patient slightly stressed today. - Recommended regular aerobic exercise. - Recommend home blood pressure monitoring, to bring results in on next visit - Recheck in 2 weeks, sooner should new symptoms or problems arise. - Goal of BP <130/80 4. Elevated hemoglobin A1c - ICD9: 790.29, ICD10: R73.09 - await labs 5. LALO (generalized anxiety disorder) - ICD9: 300.02, ICD10: F41.1 - stable 6. Chronic allergic rhinitis - ICD9: 477.9, ICD10: J30.9 - stable with current Tx. 7. Osteopenia, unspecified location - ICD9: 733.90, ICD10: M85.80 Check - DXA-AXIAL SKELETON 8. Advance directive discussed with patient - ICD9: V65.49, ICD10: Z71.89 - packets provided. 9. Encounter for immunization - ICD9: V03.89, ICD10: Z23 - PNEUMOCOCCAL VACCINE (PREVNAR 20): given Requested Prescriptions Signed Prescriptions Disp Refills potassium chloride SR (MICRO-K) 8 mEq cpER 180 capsule 1 Sig: Take 1 capsule by mouth twice daily. zolpidem (AMBIEN) 10 mg 90 tablet 1 Sig: Take 1 tablet by mouth at bedtime as needed for up to 180 days. FOR INSOMNIA F/u 2 weeks HTN med check and COVID Booster F/u 6 months routine Fabian Mcmullen MD documented in this encounter [facility] 07-18-2022 Miscellaneous Notes Formattin g of this note might be different from the original. Patient notified of results and provider's instructions. Patient verbalizes understanding. Ashu Colmenares LPN Let patient know her electrolyte panel was ok except showing she is dehydrated. Advise her to try to get 48-64 oz of water a day. documented in this encounter [facility] 07-17-2022 Miscellaneous Notes Formattin g of this note might be different from the original. Patient calls to report feeling light-headed 3 times on Sunday but not passing out. Nurse triage completed. Protocol recommends see provider within 24 hours. Patient agreeable. Appointment scheduled. Care advice reviewed. Patient verbalizes understanding. Reason for Disposition [1] MODERATE dizziness (e.g., interferes with normal activities) AND [2] has NOT been evaluated by physician for this (Exception: dizziness caused by heat exposure, sudden standing, or poor fluid intake) Answer Assessment - Initial Assessment Questions 1. DESCRIPTION: On Sunday, patient reports 3 episodes of standing at the stove and feeling like everything went black and she was going to pass out so she sat down. Patient not able to monitor BP at time of incident. Patient denies any symptoms of dehydration. 2. LIGHTHEADED: [place] faint with all over weakness. 3. VERTIGO: No spinning or tilting. 4. SEVERITY: - MODERATE: Feels unsteady when walking, but not falling; interferes with normal activities (e.g., school, work). Moderate on Sunday at the time but feeling per her normal now. Patient is working today and feels ok. 5. ONSET: Sunday 6. AGGRAVATING FACTORS: Standing and cooking at the time of all three episodes. 7. HEART RATE: Not able to monitor but reports she doesn't feel like her heart is racing. 8. CAUSE: Patient not certain but concerned that it could be her heart. 9. RECURRENT SYMPTOM: No 10. OTHER SYMPTOMS: Denies fever, chest pain, vomiting, diarrhea, or bleeding. 11. : NA Protocols used: Dizziness - [id number] documented in this encounter [facility] 05-24-2022 Miscellaneous Notes Formattin g of this note is different from the original. Pharmacy verified in [facility] Patient has been identified by name and date of : Yes Patient aware RX will be sent to pharmacy. No need to notify patient. Patient phones for refill(s): Requested Prescriptions Pending Prescriptions Disp Refills hydroCHLOROthiazide (HYDRODIURIL, ESIDRIX) 12.5 mg capsule 90 capsule 1 Sig: Take 1 capsule by mouth once daily. Date of last office visit : 01/04/2022 Date of next office visit : 07/26/2022 Last 2 Encounter Wt Readings: Date: Wt: 01/04/2022 43.5 kg (96 lb) 09/12/2021 42.9 kg (94 lb 9.6 oz) Please advise. Kaye Vazquez Pss documented in this encounter [facility] 02-06-2022 Miscellaneous Notes Patient has been identified by name and date of : Yes Pending Prescriptions Disp Refills POTASSIUM CHLORIDE ER 8 MEQ CAPSULE,EXTENDED RELEASE 180 capsule 1 Sig: Take 1 capsule by mouth twice daily. JOE: No RX INSTRUCTIONS: Patient aware RX will be sent to pharmacy. No need to notify patient. Heidy Thayer MA Rajwinder: 12/2021 Nov: 07/2022 Last refill: 01/04/2022 for 60 capsule. Patient needs 90 supply for insurance. Patient has been identified by name and date of : Yes Pending Prescriptions Disp Refills POTASSIUM CHLORIDE ER 8 MEQ CAPSULE,EXTENDED RELEASE 180 capsule 1 Sig: Take 1 capsule by mouth twice daily. JOE: No RX INSTRUCTIONS: Due to the insurance she needs this changed to 90 day supply. Patient aware RX will be sent to pharmacy. No need to notify patient. Dionna Barcenas Pss documented in this encounter [facility] 01-09-2022 Miscellaneous Notes Pt notified of results and provider message. Danielle Quarles LPN Left message for pt to contact office. Ashu Colmenares LPN Let patient know her blood sugar test improved to 5.7% vs 5.9%. Normal is 4.3-5.6% so continue working on reduced carbs and starches in diet. documented in this encounter [facility] documented as of this encounter (statuses as of 01/09/2022) [facility] History of Past illness Narrative* Problem Noted Date Resolved Date Lichen Planus: lower lip 12/03/2011 012 Actinic cheilitis 12/03/2011 04/25/2012 Seborrheic Keratosis 12/03/2011 04/25/2012 documented as of this encounter (statuses as of 02/06/2022) [address]19-2012 History of Past illness Narrative* Problem Noted Date Resolved Date Lichen Planus: lower lip 12/03/2011 012 Actinic cheilitis 12/03/2011 04/25/2012 Seborrheic Keratosis 12/03/2011 04/25/2012 documented as of this encounter (statuses as of 05/24/2022) [address]19-2012 History of Past illness Narrative* Problem Noted Date Resolved Date Lichen Planus: lower lip 12/03/2011 012 Actinic cheilitis 12/03/2011 04/25/2012 Seborrheic Keratosis 12/03/2011 04/25/2012 documented as of this encounter (statuses as of 06/19/2022) [address]19-2012 History of Past illness Narrative* Problem Noted Date Resolved Date Lichen Planus: lower lip 12/03/2011 012 Actinic cheilitis 12/03/2011 04/25/2012 Seborrheic Keratosis 12/03/2011 04/25/2012 documented as of this encounter (statuses as of 07/17/2022) [address]19-2012 History of Past illness Narrative* Problem Noted Date Resolved Date Lichen Planus: lower lip 12/03/2011 012 Actinic cheilitis 12/03/2011 04/25/2012 Seborrheic Keratosis 12/03/2011 04/25/2012 documented as of this encounter (statuses as of 07/18/2022) [address]19-2012 History of Past illness Narrative* Problem Noted Date Resolved Date Lichen Planus: lower lip 12/03/2011 012 Actinic cheilitis 12/03/2011 04/25/2012 Seborrheic Keratosis 12/03/2011 04/25/2012 documented as of this encounter (statuses as of 07/27/2022) [address]19-2012 History of Past illness Narrative* Problem Noted Date Resolved Date Lichen Planus: lower lip 12/03/2011 012 Actinic cheilitis 12/03/2011 04/25/2012 Seborrheic Keratosis 12/03/2011 04/25/2012 documented as of this encounter (statuses as of 07/27/2022) [address]19-2012 History of Past illness Narrative* Problem Noted Date Resolved Date Lichen Planus: lower lip 12/03/2011 012 Actinic cheilitis 12/03/2011 04/25/2012 Seborrheic Keratosis 12/03/2011 04/25/2012 documented as of this encounter (statuses as of 07/29/2022) [address]19-2012 History of Past illness Narrative* Problem Noted Date Resolved Date Lichen Planus: lower lip 12/03/2011 012 Actinic cheilitis 12/03/2011 04/25/2012 Seborrheic Keratosis 12/03/2011 04/25/2012 documented as of this encounter (statuses as of 07/31/2022) [address]19-2012 History of Past illness Narrative* Problem Noted Date Resolved Date Lichen Planus: lower lip 12/03/2011 012 Actinic cheilitis 12/03/2011 04/25/2012 Seborrheic Keratosis 12/03/2011 04/25/2012 documented as of this encounter (statuses as of 08/03/2022) [address]19-2012 History of Past illness Narrative* Problem Noted Date Resolved Date Lichen Planus: lower lip 12/03/2011 012 Actinic cheilitis 12/03/2011 04/25/2012 Seborrheic Keratosis 12/03/2011 04/25/2012 documented as of this encounter (statuses as of 08/09/2022) [address]19-2012 History of Past illness Narrative* Problem Noted Date Resolved Date Lichen Planus: lower lip 12/03/2011 012 Actinic cheilitis 12/03/2011 04/25/2012 Seborrheic Keratosis 12/03/2011 04/25/2012 documented as of this encounter (statuses as of 08/31/2022) [address]19-2012 History of Past illness Narrative* Problem Noted Date Resolved Date Lichen Planus: lower lip 12/03/2011 012 Actinic cheilitis 12/03/2011 04/25/2012 Seborrheic Keratosis 12/03/2011 04/25/2012 documented as of this encounter (statuses as of 09/06/2022) [address]19-2012 History of Past illness Narrative* Problem Noted Date Resolved Date Lichen Planus: lower lip 12/03/2011 012 Actinic cheilitis 12/03/2011 04/25/2012 Seborrheic Keratosis 12/03/2011 04/25/2012 documented as of this encounter (statuses as of 09/08/2022) [address]19-2012 History of Past illness Narrative* Problem Noted Date Resolved Date Lichen Planus: lower lip 12/03/2011 012 Actinic cheilitis 12/03/2011 04/25/2012 Seborrheic Keratosis 12/03/2011 04/25/2012 documented as of this encounter (statuses as of 09/08/2022) [address]19-2012 History of Past illness Narrative* Problem Noted Date Resolved Date Lichen Planus: lower lip 12/03/2011 012 Actinic cheilitis 12/03/2011 04/25/2012 Seborrheic Keratosis 12/03/2011 04/25/2012 documented as of this encounter (statuses as of 10/20/2022) [address]19-2012 History of Past illness Narrative* Problem Noted Date Resolved Date Lichen Planus: lower lip 12/03/2011 012 Actinic cheilitis 12/03/2011 04/25/2012 Seborrheic Keratosis 12/03/2011 04/25/2012 documented as of this encounter (statuses as of 10/20/2022) [address]19-2012 History of Past illness Narrative* Problem Noted Date Resolved Date Lichen Planus: lower lip 12/03/2011 012 Actinic cheilitis 12/03/2011 04/25/2012 Seborrheic Keratosis 12/03/2011 04/25/2012 documented as of this encounter (statuses as of 11/13/2022) [address]19-2012 History of Past illness Narrative* Problem Noted Date Resolved Date Lichen Planus: lower lip 12/03/2011 012 Actinic cheilitis 12/03/2011 04/25/2012 Seborrheic Keratosis 12/03/2011 04/25/2012 documented as of this encounter (statuses as of 12/11/2022) [facility] of Past illness Narrative* Problem Noted Date Resolved Date Lichen Planus: lower lip 12/03/2011 012 Actinic cheilitis 12/03/2011 04/25/2012 Seborrheic Keratosis 12/03/2011 04/25/2012 documented as of this encounter (statuses as of 12/11/2022) [facility] History of Past illness Narrative* Problem Noted Date Resolved Date Lichen Planus: lower lip 12/03/2011 012 Actinic cheilitis 12/03/2011 04/25/2012 Seborrheic Keratosis 12/03/2011 04/25/2012 documented as of this encounter (statuses as of 12/15/2022) [address]19-2012 History of Past illness Narrative* Problem Noted Date Resolved Date Lichen Planus: lower lip 12/03/2011 012 Actinic cheilitis 12/03/2011 04/25/2012 Seborrheic Keratosis 12/03/2011 04/25/2012 documented as of this encounter (statuses as of 12/22/2022) [address]19-2012 History of Past illness Narrative* Problem Noted Date Resolved Date Lichen Planus: lower lip 12/03/2011 012 Actinic cheilitis 12/03/2011 04/25/2012 Seborrheic Keratosis 12/03/2011 04/25/2012 documented as of this encounter (statuses as of 01/02/2023) [address]19-2012 History of Past illness Narrative* Problem Noted Date Resolved Date Lichen Planus: lower lip 12/03/2011 012 Actinic cheilitis 12/03/2011 04/25/2012 Seborrheic Keratosis 12/03/2011 04/25/2012 documented as of this encounter (statuses as of 01/16/2023) [address]19-2012 History of Past illness Narrative* Problem Noted Date Resolved Date Lichen Planus: lower lip 12/03/2011 012 Actinic cheilitis 12/03/2011 04/25/2012 Seborrheic Keratosis 12/03/2011 04/25/2012 documented as of this encounter (statuses as of 01/25/2023) [address]19-2012 History of Past illness Narrative* Problem Noted Date Resolved Date Lichen Planus: lower lip 12/03/2011 012 Actinic cheilitis 12/03/2011 04/25/2012 Seborrheic Keratosis 12/03/2011 04/25/2012 documented as of this encounter (statuses as of 01/26/2023) [address]19-2012 History of Past illness Narrative* Problem Noted Date Resolved Date Lichen Planus: lower lip 12/03/2011 012 Actinic cheilitis 12/03/2011 04/25/2012 Seborrheic Keratosis 12/03/2011 04/25/2012 documented as of this encounter (statuses as of 02/09/2023) [address]19-2012 History of Past illness Narrative* Problem Noted Date Resolved Date Lichen Planus: lower lip 12/03/2011 012 Actinic cheilitis 12/03/2011 04/25/2012 Seborrheic Keratosis 12/03/2011 04/25/2012 documented as of this encounter (statuses as of 03/20/2023) [address]19-2012 History of Past illness Narrative* Problem Noted Date Resolved Date Lichen Planus: lower lip 12/03/2011 012 Actinic cheilitis 12/03/2011 04/25/2012 Seborrheic Keratosis 12/03/2011 04/25/2012 documented as of this encounter (statuses as of 04/19/2023) [address]19-2012 History of Past illness Narrative* Problem Noted Date Resolved Date Lichen Planus: lower lip 12/03/2011 012 Actinic cheilitis 12/03/2011 04/25/2012 Seborrheic Keratosis 12/03/2011 04/25/2012 documented as of this encounter (statuses as of 04/20/2023) [address]19-2012 History of Past illness Narrative* Problem Noted Date Diagnosed Date Resolved Date Lichen Planus: lower lip 12/03/201109/2012 Actinic cheilitis 12/03/2011 04/25/2012 Seborrheic Keratosis 12/03/2011 012 documented as of this encounter (statuses as of 04/24/2023) [address]19-2012 History of Past illness Narrative* Problem Noted Date Diagnosed Date Resolved Date Lichen Planus: lower lip 12/03/201109/2012 Actinic cheilitis 12/03/2011 04/25/2012 Seborrheic Keratosis 12/03/2011 012 documented as of this encounter (statuses as of 04/26/2023) [address]19-2012 History of Past illness Narrative* Problem Noted Date Diagnosed Date Resolved Date Lichen Planus: lower lip 12/03/201109/2012 Actinic cheilitis 12/03/2011 04/25/2012 Seborrheic Keratosis 12/03/2011 012 documented as of this encounter (statuses as of 04/29/2023) [address]19-2012 History of Past illness Narrative* Problem Noted Date Diagnosed Date Resolved Date Lichen Planus: lower lip 12/03/201109/2012 Actinic cheilitis 12/03/2011 04/25/2012 Seborrheic Keratosis 12/03/2011 012 documented as of this encounter (statuses as of 05/14/2023) [facility] History of Past illness Narrative* Problem Noted Date Diagnosed Date Resolved Date Lichen Planus: lower lip 12/03/201109/2012 Actinic cheilitis 12/03/2011 04/25/2012 Seborrheic Keratosis 12/03/2011 012 documented as of this encounter (statuses as of 05/15/2023) [address]19-2012 History of Past illness Narrative* Problem Noted Date Diagnosed Date Resolved Date Lichen Planus: lower lip 12/03/201109/2012 Actinic cheilitis 12/03/2011 04/25/2012 Seborrheic Keratosis 12/03/2011 012 documented as of this encounter (statuses as of 05/15/2023) [facility] of [facility] illness Narrative* Problem Noted Date Diagnosed Date Resolved Date Lichen Planus: lower lip 12/03/201109/2012 Actinic cheilitis 12/03/2011 04/25/2012 Seborrheic Keratosis 12/03/2011 012 documented as of this encounter (statuses as of 06/14/2023) [address]19-2012 History of Past illness Narrative* Problem Noted Date Diagnosed Date Resolved Date Lichen Planus: lower lip 12/03/201109/2012 Actinic cheilitis 12/03/2011 04/25/2012 Seborrheic Keratosis 12/03/2011 012 documented as of this encounter (statuses as of 06/26/2023) [address]19-2012 History of Past illness Narrative* Problem Noted Date Diagnosed Date Resolved Date Lichen Planus: lower lip 12/03/201109/2012 Actinic cheilitis 12/03/2011 04/25/2012 Seborrheic Keratosis 12/03/2011 012 documented as of this encounter (statuses as of 07/13/2023) [address]19-2012 History of Past illness Narrative* Problem Noted Date Diagnosed Date Resolved Date Lichen Planus: lower lip 12/03/201109/2012 Actinic cheilitis 12/03/2011 04/25/2012 Seborrheic Keratosis 12/03/2011 012 documented as of this encounter (statuses as of 08/03/2023) [facility] of Past illness Narrative* Problem Noted Date Diagnosed Date Resolved Date Lichen Planus: lower lip 12/03/201109/2012 Actinic cheilitis 12/03/2011 04/25/2012 Seborrheic Keratosis 12/03/2011 012 documented as of this encounter (statuses as of 08/08/2023) [address]19-2012 History of Past illness Narrative* Problem Noted Date Diagnosed Date Resolved Date Lichen Planus: lower lip 12/03/201109/2012 Actinic cheilitis 12/03/2011 04/25/2012 Seborrheic Keratosis 12/03/2011 012 documented as of this encounter (statuses as of 08/09/2023) [address]19-2012 History of Past illness Narrative* Problem Noted Date Diagnosed Date Resolved Date Lichen Planus: lower lip 12/03/201109/2012 Actinic cheilitis 12/03/2011 04/25/2012 Seborrheic Keratosis 12/03/2011 012 documented as of this encounter (statuses as of 08/19/2023) [facility] History of Past illness Narrative* Problem Noted Date Diagnosed Date Resolved Date Lichen Planus: lower lip 12/03/201109/2012 Actinic cheilitis 12/03/2011 04/25/2012 Seborrheic Keratosis 12/03/2011 012 documented as of this encounter (statuses as of 08/23/2023) [facility] History of Past illness Narrative* Problem Noted Date Diagnosed Date Resolved Date Lichen Planus: lower lip 12/03/201109/2012 Actinic cheilitis 12/03/2011 04/25/2012 Seborrheic Keratosis 12/03/2011 012 documented as of this encounter (statuses as of 09/04/2023) [facility] History of Past illness Narrative* Problem Noted Date Diagnosed Date Resolved Date Lichen Planus: lower lip 12/03/201109/2012 Actinic cheilitis 12/03/2011 04/25/2012 Seborrheic Keratosis 12/03/2011 012 documented as of this encounter (statuses as of 09/05/2023) [facility] History of Past illness Narrative* Problem Noted Date Diagnosed Date Resolved Date Lichen Planus: lower lip 12/03/201109/2012 Actinic cheilitis 12/03/2011 04/25/2012 Seborrheic Keratosis 12/03/2011 012 documented as of this encounter (statuses as of 11/16/2023) [facility] History of Past illness Narrative* Problem Noted Date Diagnosed Date Resolved Date Lichen Planus: lower lip 12/03/201109/2012 Actinic cheilitis 12/03/2011 04/25/2012 Seborrheic Keratosis 12/03/2011 012 documented as of this encounter (statuses as of 11/20/2023) [facility] for screening mammogram for breast cancer [facility] Diagnosis Well adult exam- Primary Routine general medical examination at a health care facility Primary insomnia Persistent disorder of initiating or maintaining sleep Essential hypertension, benign Elevated hemoglobin A1c Other abnormal blood chemistry LALO (generalized anxiety disorder) Generalized anxiety disorder Chronic allergic rhinitis Allergic rhinitis, cause unspecified Osteopenia, unspecified location Advance directive discussed with patient Other specified counseling Encounter for immunization Need for other specified prophylactic vaccination against single bacterial disease [facility] Diagnosis Mild AI (aortic insufficiency) Aortic valve disorders [facility] Diagnosis 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 dysplasia of both carotid arteries (HCC) [facility] Diagnosis Essential hypertension, benign- Primary Encounter for immunization Need for other specified prophylactic vaccination against single bacterial disease documented in this encounter [facility] note* Diagnosis Primary hypertension- Primary Unspecified essential hypertension Headache, unspecified headache type Acute cough documented in this encounter [facility] note* Diagnosis Primary hypertension Unspecified essential hypertension [facility] Diagnosis Primary hypertension Unspecified essential hypertension [facility] Diagnosis Primary hypertension- Primary Unspecified essential hypertension [facility] Diagnosis Sore throat- Primary Acute pharyngitis Strep throat exposure Contact with or exposure to other communicable diseases Sinus pressure Other diseases of nasal cavity and sinuses Right ear pain Otalgia, unspecified Non-recurrent acute serous otitis media of right ear [facility] Diagnosis Bacterial sinusitis- Primary Unspecified sinusitis (chronic) [facility] Diagnosis Sore throat Acute pharyngitis Strep throat exposure Contact with or exposure to other communicable diseases Sinus pressure Other diseases of nasal cavity and sinuses Right ear pain Otalgia, unspecified Non-recurrent acute serous otitis media of right ear [facility] Diagnosis Seasonal allergic rhinitis, unspecified trigger- Primary Sore throat Acute pharyngitis [facility]* Diagnosis Essential hypertension, benign- Primary Elevated hemoglobin A1c Other abnormal blood chemistry LALO (generalized anxiety disorder) Generalized anxiety disorder 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 dysplasia of both carotid arteries (HCC) Insomnia, unspecified type Advance directive discussed with patient Other specified counseling [facility] Diagnosis Essential hypertension, benign- Primary Primary hypertension Unspecified essential hypertension 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 dysplasia of both carotid arteries (HCC) Primary insomnia Persistent disorder of initiating or maintaining sleep 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 difficile colitis- Primary Intestinal infection due to clostridium difficile [facility] Diagnosis Primary hypertension Unspecified essential hypertension [facility] Diagnosis Primary insomnia Persistent disorder of initiating or maintaining sleep [facility] Diagnosis Bronchitis- Primary Bronchitis, not specified as acute or chronic Nasal congestion Other diseases of nasal cavity and sinuses [facility]* Diagnosis Encounter for Medicare annual wellness exam- Primary Routine general medical examination at a health care facility Essential hypertension, benign Elevated hemoglobin A1c Other abnormal blood chemistry 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 dysplasia of both carotid arteries (HCC) LALO (generalized anxiety disorder) Generalized anxiety disorder Insomnia, unspecified type Need for vaccination Need for prophylactic vaccination and inoculation against unspecified single disease [facility] Diagnosis Encounter for screening mammogram for breast cancer [facility] Diagnosis Primary insomnia Persistent disorder of initiating or maintaining sleep documented in this encounter [facility]* Diagnosis Eustachian tube disorder, left- Primary Non-recurrent acute serous otitis media of left ear [facility] Diagnosis History of Clostridium difficile colitis Personal history of other diseases of digestive system documented in this encounter [facility] for referral (narrative)* Diagnostic Procedure Only (Routine) - Pending Review Specialty Diagnoses / Procedures Referred By Clive biggs Referred To Contact [facility] Diagnoses Encounter for screening mammogram for breast cancer Procedures SANDOVAL SCREENING SCREENING MAMMOGRAPHY BI 2-VIEW BREAST INC CAD Fabian Mcmullen MD [address] [place] [address] [facility] [address] [place] [address] Referral ID Status Reason Start Date Expiration Date Visits Requested Visits Authorized [id number] Pending Review Auto-Generat ed Referral 06/14/2022 07/14/2023 1 1 [facility] for referral (narrative)* Diagnostic Procedure Only (Routine) - Closed Specialty Diagnoses / Procedures Referred By Contac t Referred To Contact [facility] Diagnoses Encounter for screening mammogram for breast cancer Procedures SANDOVAL SCREENING SCREENING MAMMOGRAPHY BI 2-VIEW BREAST INC CAD Fabian Mcmullen MD [address] [place] [address] [facility] [address] [place] [address] Referral ID Status Reason Start Date Expiration Date V isits Requested Visits Authorized [id number] Closed Auto-Generate d Referral 06/14/2022 07/14/2023 1 1 [facility] for visit Narrative* Diagnostic Procedure Only (Routine) - Closed Specialty Diagnoses / Procedures Referred By Contac t Referred To Contact [facility] Diagnoses Encounter for screening mammogram for breast cancer Procedures SANDOVAL SCREENING SCREENING MAMMOGRAPHY BI 2-VIEW BREAST INC CAD Fabian Mcmullne MD [address] [place] [address] [facility] [address] [place] [address] Referral ID Status Reason Start Date Expiration Date V isits Requested Visits Authorized [id number] Closed Auto-Generate d Referral 06/14/2022 07/14/2023 1 1 [facility] [facility] Summary Purpose Family History No Family History Records Found Advance Directives No Advanced Directives Records Found Additional Source Comments Source Comments (unrecognize d section and content) In the event this informatio n is protected by the Federal Confidentiality of Alcohol and Drug Abuse Patient Records regulations: The Federal rules restrict any use of the information to criminally investigate or prosecute any alcohol or drug abuse patient.[facility] System[facility] the event this information is protected by the Federal Confidentiality of Alcohol and Drug Abuse Patient Records regulations: The Federal rules restrict any use of the information to criminally investigate or prosecute any alcohol or drug abuse patient.[facility] SystemIn the event this information is protected by the Federal Confidentiality of Alcohol and Drug Abuse Patient Records regulations: The Federal rules restrict any use of the information to criminally investigate or prosecute any alcohol or drug abuse patient.[facility] SystemIn the event this information is protected by the Federal Confidentiality of Alcohol and Drug Abuse Patient Records regulations: The Federal rules restrict any use of the information to criminally investigate or prosecute any alcohol or drug abuse patient.[facility] SystemIn the event this information is protected by the Federal Confidentiality of Alcohol and Drug Abuse Patient Records regulations: The Federal rules restrict any use of the information to criminally investigate or prosecute any alcohol or drug abuse patient.[facility] SystemIn the event this information is protected by the Federal Confidentiality of Alcohol and Drug Abuse Patient Records regulations: The Federal rules restrict any use of the information to criminally investigate or prosecute any alcohol or drug abuse patient.[facility] SystemIn the event this information is protected by the Federal Confidentiality of Alcohol and Drug Abuse Patient Records regulations: The Federal rules restrict any use of the information to criminally investigate or prosecute any alcohol or drug abuse patient.[facility] SystemIn the event this information is protected by the Federal Confidentiality of Alcohol and Drug Abuse Patient Records regulations: The Federal rules restrict any use of the information to criminally investigate or prosecute any alcohol or drug abuse patient.[facility] SystemIn the event this information is protected by the Federal Confidentiality of Alcohol and Drug Abuse Patient Records regulations: The Federal rules restrict any use of the information to criminally investigate or prosecute any alcohol or drug abuse patient.[facility] SystemIn the event this information is protected by the Federal Confidentiality of Alcohol and Drug Abuse Patient Records regulations: The Federal rules restrict any use of the information to criminally investigate or prosecute any alcohol or drug abuse patient.[facility] SystemIn the event this information is protected by the Federal Confidentiality of Alcohol and Drug Abuse Patient Records regulations: The Federal rules restrict any use of the information to criminally investigate or prosecute any alcohol or drug abuse patient.[facility] SystemIn the event this information is protected by the Federal Confidentiality of Alcohol and Drug Abuse Patient Records regulations: The Federal rules restrict any use of the information to criminally investigate or prosecute any alcohol or drug abuse patient.[facility] SystemIn the event this information is protected by the Federal Confidentiality of Alcohol and Drug Abuse Patient Records regulations: The Federal rules restrict any use of the information to criminally investigate or prosecute any alcohol or drug abuse patient.[facility] SystemIn the event this information is protected by the Federal Confidentiality of Alcohol and Drug Abuse Patient Records regulations: The Federal rules restrict any use of the information to criminally investigate or prosecute any alcohol or drug abuse patient.[facility] SystemIn the event this information is protected by the Federal Confidentiality of Alcohol and Drug Abuse Patient Records regulations: The Federal rules restrict any use of the information to criminally investigate or prosecute any alcohol or drug abuse patient.[facility] SystemIn the event this information is protected by the Federal Confidentiality of Alcohol and Drug Abuse Patient Records regulations: The Federal rules restrict any use of the information to criminally investigate or prosecute any alcohol or drug abuse patient.[facility] SystemIn the event this information is protected by the Federal Confidentiality of Alcohol and Drug Abuse Patient Records regulations: The Federal rules restrict any use of the information to criminally investigate or prosecute any alcohol or drug abuse patient.[facility] SystemIn the event this information is protected by the Federal Confidentiality of Alcohol and Drug Abuse Patient Records regulations: The Federal rules restrict any use of the information to criminally investigate or prosecute any alcohol or drug abuse patient.[facility] SystemIn the event this information is protected by the Federal Confidentiality of Alcohol and Drug Abuse Patient Records regulations: The Federal rules restrict any use of the information to criminally investigate or prosecute any alcohol or drug abuse patient.[facility] SystemIn the event this information is protected by the Federal Confidentiality of Alcohol and Drug Abuse Patient Records regulations: The Federal rules restrict any use of the information to criminally investigate or prosecute any alcohol or drug abuse patient.[facility] SystemIn the event this information is protected by the Federal Confidentiality of Alcohol and Drug Abuse Patient Records regulations: The Federal rules restrict any use of the information to criminally investigate or prosecute any alcohol or drug abuse patient.[facility] SystemIn the event this information is protected by the Federal Confidentiality of Alcohol and Drug Abuse Patient Records regulations: The Federal rules restrict any use of the information to criminally investigate or prosecute any alcohol or drug abuse patient.[facility] SystemIn the event this information is protected by the Federal Confidentiality of Alcohol and Drug Abuse Patient Records regulations: The Federal rules restrict any use of the information to criminally investigate or prosecute any alcohol or drug abuse patient.[facility] SystemIn the event this information is protected by the Federal Confidentiality of Alcohol and Drug Abuse Patient Records regulations: The Federal rules restrict any use of the information to criminally investigate or prosecute any alcohol or drug abuse patient.[facility] SystemIn the event this information is protected by the Federal Confidentiality of Alcohol and Drug Abuse Patient Records regulations: The Federal rules restrict any use of the information to criminally investigate or prosecute any alcohol or drug abuse patient.[facility] SystemIn the event this information is protected by the Federal Confidentiality of Alcohol and Drug Abuse Patient Records regulations: The Federal rules restrict any use of the information to criminally investigate or prosecute any alcohol or drug abuse patient.[facility] SystemIn the event this information is protected by the Federal Confidentiality of Alcohol and Drug Abuse Patient Records regulations: The Federal rules restrict any use of the information to criminally investigate or prosecute any alcohol or drug abuse patient.[facility] SystemIn the event this information is protected by the Federal Confidentiality of Alcohol and Drug Abuse Patient Records regulations: The Federal rules restrict any use of the information to criminally investigate or prosecute any alcohol or drug abuse patient.[facility] SystemIn the event this information is protected by the Federal Confidentiality of Alcohol and Drug Abuse Patient Records regulations: The Federal rules restrict any use of the information to criminally investigate or prosecute any alcohol or drug abuse patient.[facility] SystemIn the event this information is protected by the Federal Confidentiality of Alcohol and Drug Abuse Patient Records regulations: The Federal rules restrict any use of the information to criminally investigate or prosecute any alcohol or drug abuse patient.[facility] SystemIn the event this information is protected by the Federal Confidentiality of Alcohol and Drug Abuse Patient Records regulations: The Federal rules restrict any use of the information to criminally investigate or prosecute any alcohol or drug abuse patient.[facility] SystemIn the event this information is protected by the Federal Confidentiality of Alcohol and Drug Abuse Patient Records regulations: The Federal rules restrict any use of the information to criminally investigate or prosecute any alcohol or drug abuse patient.[facility] SystemIn the event this information is protected by the Federal Confidentiality of Alcohol and Drug Abuse Patient Records regulations: The Federal rules restrict any use of the information to criminally investigate or prosecute any alcohol or drug abuse patient.[facility] SystemIn the event this information is protected by the Federal Confidentiality of Alcohol and Drug Abuse Patient Records regulations: The Federal rules restrict any use of the information to criminally investigate or prosecute any alcohol or drug abuse patient.[facility] SystemIn the event this information is protected by the Federal Confidentiality of Alcohol and Drug Abuse Patient Records regulations: The Federal rules restrict any use of the information to criminally investigate or prosecute any alcohol or drug abuse patient.[facility] SystemIn the event this information is protected by the Federal Confidentiality of Alcohol and Drug Abuse Patient Records regulations: The Federal rules restrict any use of the information to criminally investigate or prosecute any alcohol or drug abuse patient.[facility] SystemIn the event this information is protected by the Federal Confidentiality of Alcohol and Drug Abuse Patient Records regulations: The Federal rules restrict any use of the information to criminally investigate or prosecute any alcohol or drug abuse patient.[facility] SystemIn the event this information is protected by the Federal Confidentiality of Alcohol and Drug Abuse Patient Records regulations: The Federal rules restrict any use of the information to criminally investigate or prosecute any alcohol or drug abuse patient.[facility] SystemIn the event this information is protected by the Federal Confidentiality of Alcohol and Drug Abuse Patient Records regulations: The Federal rules restrict any use of the information to criminally investigate or prosecute any alcohol or drug abuse patient.[facility] SystemIn the event this information is protected by the Federal Confidentiality of Alcohol and Drug Abuse Patient Records regulations: The Federal rules restrict any use of the information to criminally investigate or prosecute any alcohol or drug abuse patient.[facility] SystemIn the event this information is protected by the Federal Confidentiality of Alcohol and Drug Abuse Patient Records regulations: The Federal rules restrict any use of the information to criminally investigate or prosecute any alcohol or drug abuse patient.[facility] SystemIn the event this information is protected by the Federal Confidentiality of Alcohol and Drug Abuse Patient Records regulations: The Federal rules restrict any use of the information to criminally investigate or prosecute any alcohol or drug abuse patient.[facility] SystemIn the event this information is protected by the Federal Confidentiality of Alcohol and Drug Abuse Patient Records regulations: The Federal rules restrict any use of the information to criminally investigate or prosecute any alcohol or drug abuse patient.[facility] SystemIn the event this information is protected by the Federal Confidentiality of Alcohol and Drug Abuse Patient Records regulations: The Federal rules restrict any use of the information to criminally investigate or prosecute any alcohol or drug abuse patient.[facility] SystemIn the event this information is protected by the Federal Confidentiality of Alcohol and Drug Abuse Patient Records regulations: The Federal rules restrict any use of the information to criminally investigate or prosecute any alcohol or drug abuse patient.[facility] SystemIn the event this information is protected by the Federal Confidentiality of Alcohol and Drug Abuse Patient Records regulations: The Federal rules restrict any use of the information to criminally investigate or prosecute any alcohol or drug abuse patient.[facility] SystemIn the event this information is protected by the Federal Confidentiality of Alcohol and Drug Abuse Patient Records regulations: The Federal rules restrict any use of the information to criminally investigate or prosecute any alcohol or drug abuse patient.[facility] SystemIn the event this information is protected by the Federal Confidentiality of Alcohol and Drug Abuse Patient Records regulations: The Federal rules restrict any use of the information to criminally investigate or prosecute any alcohol or drug abuse patient.[facility] SystemIn the event this information is protected by the Federal Confidentiality of Alcohol and Drug Abuse Patient Records regulations: The Federal rules restrict any use of the information to criminally investigate or prosecute any alcohol or drug abuse patient.[facility] Reason for Visit (unrecogniz ed section and content) Reason Onset Date Comments Refill Request 02/06/2022 NEEDS 90 DAYS Reason Onset Date Comments Refill Request 05/24/2022 Reason Comments Dizziness Reason Comments Physical Reason Comments Question Reason Comments Blood Pressure Htn, covid booster Reason Comments Refill Request Reason Comments Follow Up On b/p Reason Onset Date Comments Refill Request 10/20/2022 Reason Comments Sore Throat Strep exposure Reason Comments Sore Throat X 2/3 days, Exposed to strep. Ear Pain Right ear Reason Comments Patient Question Patient Update Reason Comments Sinus Problem Reason Comments Sore Throat Reason Comments F/U 6 months Reason Comments Recheck Blood pressure Reason Comments Consult Vascular/labs Reason Comments ER consult Reason Comments ED Follow-up Reason Comments Patient Question Reason Comments Follow Up Reason Comments FMLA Paperwork Forms Short term disabilit y paperwork Reason Onset Date Comments Refill Request 06/14/2023 Reason Onset Date Comments Refill Request 06/25/2023 Reason Comments outside cardiology Reason Comments Cough Congestion x 3 weeks Reason Comments Medicare Wellness Exam Reason Comments Medication Problem Out of stock, changi ng to a new pharmacy Reason Comments Insurance Authorization Potassium chlori de Reason Comments Patient Update Care Teams (unrecognized sec tion and content) Grain Packer Relationship Specialty Start Date End Date Fabian Mcmullen MD [address] [place] [address] PCP - General Family Practice 07/21/17 Grain Packer Relationship Specialty Start Date End Date Fabian Mcmullen MD [facility] [place] [address] PCP - General Family Practice 07/21/17 Grain Packer Relationship Specialty Start Date End Date Fabian Mcmullen MD [address] [place] [id number] PCP - General Family Practice 07/21/17 Grain Packer Relationship Specialty Start Date End Date Fabian Mcmullen MD [address] [place] [address] PCP - General Family Medicine 07/21/17 Grain Packer Relationship Specialty Start Date End Date Fabian Mcmullen MD [address] [place] [address] PCP - General Family Medicine 07/21/17 Grain Packer Relationship Specialty Start Date End Date Fabian Mcmullen MD [address] [place] [address] PCP - General Family Medicine 07/21/17 Grain Packer Relationship Specialty Start Date End Date Fabian Mcmullen MD [address] [place] [address] [place] [address] PCP - General Family Medicine 07/21/17 Grain Packer Relationship Specialty Start Date End Date Fabian Mcmullen MD [address] [place] [address] [place] [address] PCP - General Family Medicine 07/21/17 Grain Packer Relationship Specialty Start Date End Date Fabian Mcmullen MD [address] [place] [address] PCP - General Family Medicine 07/21/17 Grain Packer Relationship Specialty Start Date End Date Fabian Mcmullen MD [address] [place] [address] PCP - General Family Medicine 07/21/17 Grain Packer Relationship Specialty Start Date End Date Fabian Mcmullen MD [facility] [place] [address] PCP - General Family Medicine 07/21/17 Grain Packer Relationship Specialty Start Date End Date Fabian Mcmullen MD [facility] [place] [address] PCP - General Family Medicine 07/21/17 Grain Packer Relationship Specialty Start Date End Date Fabian Mcmullen MD [facility] [place] [address] PCP - General Family Medicine 07/21/17 Grain Packer Relationship Specialty Start Date End Date Fabian Mcmullen MD [facility] [place] [address] PCP - General Family Medicine 07/21/17 Grain Packer Relationship Specialty Start Date End Date Fabian Mcmullen MD [facility] [place] [address] PCP - General Family Medicine 07/21/17 Grain Packer Relationship Specialty Start Date End Date Fabian Mcmullen MD [facility] [place] [address] PCP - General Family Medicine 07/21/17 Grain Packer Relationship Specialty Start Date End Date Fabian Mcmullen MD [facility] [place] [address] PCP - General Family Medicine 07/21/17 Grain Packer Relationship Specialty Start Date End Date Fabian Mcmullen MD [address] [place] [address] PCP - General Family Medicine 07/21/17 Grain Packer Relationship Specialty Start Date End Date Fabian Mcmullen MD [address] [place] [address] PCP - General Family Medicine 07/21/17 Grain Packer Relationship Specialty Start Date End Date Fabian Mcmullen MD [address] [place] [address] PCP - General Family Medicine 07/21/17 Grain Packer Relationship Specialty Start Date End Date Fabian Mcmullen MD [address] [place] [address] PCP - General Family Medicine 07/21/17 Grain Packer Relationship Specialty Start Date End Date Fabian Mcmullen MD [address] [place] [address] PCP - General Family Medicine 07/21/17 Grain Packer Relationship Specialty Start Date End Date Fabian Mcmullen MD [address] [place] [address] PCP - General Family Medicine 07/21/17 Grain Packer Relationship Specialty Start Date End Date Fabian Mcmullen MD [address] [place] [address] PCP - General Family Medicine 07/21/17 Grain Packer Relationship Specialty Start Date End Date Fabian Mcmullen MD [address] [place] [address] PCP - General Family Medicine 07/21/17 Grain Packer Relationship Specialty Start Date End Date Fabian Mcmullen MD [address] [place] [address] PCP - General Family Medicine 07/21/17 Grain Packer Relationship Specialty Start Date End Date Fabian Mcmullen MD [address] [place] [address] PCP - General Family [facility] 07/21/17 Grain Packer Relationship Specialty Start Date End Date Fabian Mcmullen MD [address] [place] [address] PCP - General [facility] 07/21/17 Grain Packer Relationship Specialty Start Date End Date Fabian Mcmullen MD [address] [place] [address] PCP - General Family [facility] 07/21/17 Grain Packer Relationship Specialty Start Date End Date Fabian Mcmullen MD [address] [place] [address] PCP - General Family Medicine 07/21/17 INFORMATION SOURCE (unrecogn ized section and content) FOR RECORDS PERTAINING TO PATIENTS WHO ARE OR HAVE BEEN ENROLLED IN A CHEMICAL DEPENDENCY/SUBSTANCEABUSE PROGRAM, SOME INFORMATION MAY BE OMITTED. This clinical summary was aggregated from multiple sources. Caution should be exercised in using it in the provision of clinical care. This summary normalizes information from multiple sources, and as a consequence, information in this document may materially change the coding, format and clinical context of patient data. In addition, data may be omitted in some cases. CLINICAL DECISIONS SHOULD BE BASED ON THE PRIMARY CLINICAL RECORDS. [facility]. provides no warranty or guarantee of the accuracy or completeness of information in this document.
[2023-11-27] MEDS: 0.9% Normal Saline (1000mL) 1,000 ML 1000 ML IV (00:17)
[2023-11-27] MEDS: Ondansetron 4 MG/2 ML Vial IV (00:18)
[2023-11-27 00:32] VITALS: RESP 16
[2023-11-27 00:32] LABS: Absolute Lymphocyte Count 1.91 X10^3/uL (0.83-4.51); Absolute Neutrophil Count 11.8 X10^3/uL (2.0-7.7); Basophil# 0.03 X10^3/uL; Basophil% 0.2 % (0-1); Eosinophil# 0.12 X10^3/uL; Eosinophils% 0.8 % (0-5); Hematocrit 40.7 % (37-47); Hemoglobin 13.3 g/dL (12.0-15.0); Lymphocyte # 1.91 X10^3/ul (0.83-4.51); Lymphocyte % 12.7 % (19-41); Mean Corp Hgb Conc 32.7 g/dL (32-36); Mean Corpuscular Volume 91.9 fL (81-99); Mean Platelet Vol. 9.7 fl (6.2-12.0); Monocyte# 1.04 X10^3/uL; Monocyte% 6.9 % (0-10); NRBC Flagged by Analyzer 0 % (0-5); Neutrophil # 11.84 X10^3/uL (2.7-7.7); Neutrophil % 78.5 % (47-70); Platelet Count 299 K/mm3 (150-450); RBC Distribution Width CV 13.9 % (11.6-14.6); RBC Distribution Width SD 47.4 fl (35.1-43.9); Red Blood Count 4.43 M/mm3 (4.2-5.4); White Blood Count 15.1 K/mm3 (4.4-11.0)
[2023-11-27 00:36] LABS: AST(SGOT) 20 U/L (15-37); Alanine Aminotransfer ALT/SGPT 17 U/L (13-56); Albumin, Serum 4.1 g/dL (3.2-5.0); Alkaline Phosphatase 92 U/L (45-117); Anion Gap 7 (5-15); BUN 29 mg/dL (7-18); BUN/Creat Ratio 25.9 RATIO (10-20); Calcium,Total 11.2 mg/dL (8.5-10.1); Chloride 106 mmol/L (98-107); Creatinine, Serum 1.12 mg/dL (0.55-1.02); EST Glomerular Filtration Rate 50 mL/min (>60); Est Glom Filt Rate - Afr Amer 61 mL/min (>60); Globulin 4.1 g/dL (2.2-4.2); Glucose 151 mg/dL (74-106); Potassium 3.2 mmol/L (3.5-5.1); Protein, Total 8.2 g/dL (6.4-8.2); Sodium Level 143 mmol/L (136-145)
[2023-11-27 02:00] VITALS: BP 106/51; PULSE 75; RESP 12; O2SAT 99
[2023-11-27] MEDS: 0.9% Normal Saline (1000mL) 1,000 ML 150 ML IV (02:17)
== END 2023-11-27 02:45 | disposition home or self-care (01) ==
PROVIDERS: Emergency Provider Emergency Medicine; PCP Family Medicine; Visit Provider Emergency Medicine
DX: A09 Infectious gastroenteritis and colitis, unspecified (principal); E87.6 Hypokalemia; E86.0 Dehydration; G47.30 Sleep apnea, unspecified; Z79.82 Long term (current) use of aspirin; Z79.899 Other long term (current) drug therapy
CPT/HCPCS: 80053; 83630; 85025; 87493; 87506; 96361; 96374; 99282; J2405

== ENCOUNTER → 2024-04-30 | Outpatient (CLI) | payer MEDICARE, OTHER, SELFPAY ==
--- NOTE | 2024-04-30 09:11 | CDU_ITS ---
Reason For Study: 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 dysplasia Rt. Velocities/BP Lt. Velocities/BP Prox CCA 76.5/12.7 cm/sec. Prox CCA 72.4/16.6 cm/sec. Mid CCA 69.9/16 cm/sec. Mid CCA 71/16 cm/sec. Dist CCA 62.2/14.9 cm/sec. Dist CCA 57.8/14.9 cm/sec. Prox ICA 51.6/16.6 cm/sec. Prox ICA 51.7/13.9 cm/sec. Mid ICA 102.7/26.5 cm/sec. Mid ICA 75.2/22.3 cm/sec. Dist ICA 118.1/31.4 cm/sec. Dist ICA 85.4/22.8 cm/sec. Rt. ICA/CCA = 1.69. Lt. ICA/CCA = 1.20. Prox ECA 50.6/5.3 cm/sec. Prox ECA 57.8/6.2 cm/sec. Rt. Vert. 31.9/10.1 cm/sec. Lt. Vert. 83/15.5 cm/sec. Right Extracranial There is intimal thickening but no significant atherosclerotic plaque noted in the right common carotid artery. There is heterogeneous, irregular atherosclerotic plaque noted in the right internal carotid artery. There is heterogeneous, irregular atherosclerotic plaque noted in the right external carotid artery. Antegrade flow is noted in the right vertebral artery. Left Extracranial There is intimal thickening but no significant atherosclerotic plaque noted in the left common carotid artery. There is intimal thickening but no significant atherosclerotic plaque noted in the left internal carotid artery. There is heterogeneous, irregular atherosclerotic plaque noted in the left external carotid artery. Antegrade flow is noted in the left vertebral artery. Procedure Carotid Duplex [id number]. This is a Carotid Duplex examination using B-mode, color flow and specral Doppler. Exam performed in department. VL/Carotid Duplex Ultrasound Interpretation Summary Mild (<50%) stenosis right extracranial internal carotid. Normal left extracranial internal carotid. Patent and antegrade vertebrals bilaterally. Ordering Physician: Deb Cheung Referring Physician: Fabian Graham Performed By: Amirah Knight RVT and Student
--- NOTE | 2024-04-30 09:11 | RDU_ITS ---
Reason For Study: 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 dysplasia Right Renal Artery Left Renal Artery Right renal artery ostium Left renal artery ostium 99.7/15.7 147.5/30.8 RSV/EDV. PSV/EDV. Right renal artery proximal Left renal artery proximal PSV/EDV 182.7/25.4 PSV/EDV. 103.3/23 . Right renal artery mid 141/24.3 Left renal artery mid 136.2/24.8 PSV/EDV. PSV/EDV . Right renal artery distal 99.7/13.9 Left renal artery distal 159.4/32.1 PSV/EDV. PSV/EDV. Right RAR 1.87. Left RAR 1.63. Right Renal Parenchyma Left Renal Parenchyma Upper Pole Medula 27.7/4.2 PSV/EDV. Left upper pole medulla 40.9/9 Right upper pole medulla EDR 0.2 . PSV/EDV . Right upper pole medulla R.I. Left upper pole medulla EDR 0.2 . 0.85 . Left upper pole medulla R.I. 0.78 . Upper [place] Cortx 30.4/4.3 PSV/EDV. UP Cortex 28/7.7 PSV/EDV. Right upper pole cortex EDR 0.2 . Left upper pole cortex EDR 0.3 . Right upper pole cortex R.I. 0.85 . Left upper pole cortex R.I. 0.72 . Right lower Pole medulla 29.4/5.3 Left lower Pole medulla 48/10.6 PSV/EDV . PSV/EDV . Right lower pole medulla EDR 0.2 . Left lower pole medulla EDR 0.2 . Right lower pole medulla R.I. Left lower pole medulla R.I. 0.78 . 0.82 . Lower Pole Cortx 20.7/5.3 PSV/EDV. Lower Pole Cortex 27.8/4.7 PSV/EDV. Left lower pole cortex EDR 0.3 . Right lower pole cortex EDR 0.2 . Left lower pole cortex R.I. 0.74 . Right lower pole cortex R.I. 0.83 . Left Renal Hilar Right Renal Hilar LT Hilar avg 117.7/21.1 PSV/EDV . Right Hilar avg 45.7/9.5 PSV/EDV. Left hilar acceleration time 40 Right hilar acceleration time 40 m/sec. m/sec. Left Renal Dimensions Right Renal Dimensions Left kidney size 9.86 cm . Right kidney size 9.43 cm . Left cortical dimension 1.44 cm . Right cortical dimension 0.98 cm . Aorta Proximal abdominal aorta 1.81 x 1.81 cm . Proximal abdominal aorta peak systolic velocity is 97.8 cm/sec . Distal abdominal aorta 1.05 x 1.03 cm . Distal abdominal aorta peak systolic velocity is 87.5 cm/sec . VL/Renal Artery Duplex Ultrasound Interpretation Summary Right renal artery patent with < 60% stenosis. Left renal artery patent with normal velocities and no evidence of stenosis. Right renal vein patent. Left renal vein patent. Right kidney normal in size. Left kidney normal in size. Ordering Physician: Deb Cheung Referring Physician: Fabian Graham Performed By: Amirah Knight RVT and Student
== END | disposition home or self-care (01) ==
LOC: CVS 08:49
PROVIDERS: PCP Family Medicine; Referring Provider Surgery Trauma Surgery; Visit Provider Surgery Trauma Surgery
DX: I77.3 Arterial fibromuscular dysplasia (principal); I65.21 Occlusion and stenosis of right carotid artery
CPT/HCPCS: 93880; 93975

== ENCOUNTER 2025-01-26 07:14 | Emergency (ER) | payer MEDICARE, OTHER, SELFPAY ==
[2025-01-26 07:14] VITALS: BP 142/63; PULSE 125; RESP 18; TEMP 37.2; O2SAT 98; BMI 20.2
[2025-01-26 07:16] VITALS: BP 168/69; PULSE 106; RESP 16; TEMP 36.7; O2SAT 98
--- NOTE | 2025-01-26 07:23 | CT_ITS ---
PROCEDURE: ABDOMEN/PELVIS W IV CONT ONLY 01/26/2025 REASON FOR EXAM: LLQ ABDOMINAL PAIN 4 days. Chills. History of diverticulitis. TECHNIQUE: Abdomen and pelvis CT with intravenous contrast. Coronal and Sagittal reconstruction series were provided. PATIENT PREPARATION: Per protocol One or more dose reduction techniques were used (e.g., Automated exposure control, adjustment of the mA and/or kV according to patient size, use of iterative reconstruction technique. 75 mL of Isovue-300 contrast was utilized for this examination. RADIATION DOSE SUMMARY: I do not see where this was calculated. COMPARISON: None FINDINGS: Lung bases: Unremarkable Liver: Normal size. No mass. Gallbladder: Calcified gallstone is seen there does not appear to be any pericholecystic fluid. Spleen: Normal size. Pancreas: Normal size without evidence of mass surrounding inflammation or ductal dilation. Adrenals: Unremarkable Kidneys: A 5 mm cyst is seen in the superior pole of the right kidney. A 7 mm cyst is seen in the midpole of the right kidney. The left kidney appears unremarkable Bladder: Is incompletely distended. No obvious filling defects are seen within the bladder. Reproductive Organs: Unremarkable Bowel: Diverticulosis is seen involving the transverse colon and descending colon. There appears to be mild diverticulitis involving the sigmoid colon. There is no abscess seen. There is no free air seen. Appendix: The appendix is not identified. There is no inflammatory process identified in the right lower quadrant to suggest appendicitis. Lymph nodes: Unremarkable. Vasculature: Mild diffuse atherosclerotic calcifications are noted. Bones: Degenerative changes of the lumbar spine are noted. There is a dextroscoliosis of the lumbar spine. Degenerative changes of the L3-L4, L4-L5, and L5-S1 disc spaces are noted. CT/Abdomen/Pelvis W IV Cont ONLY IMPRESSION: 1. There appears to be mild diverticulitis of the sigmoid colon. There is no free air seen. There is no abscess seen. There is no ascites seen. 2. Gallstone 3. 2 right renal cysts 4. Arteriosclerotic vascular disease of the aorta 5. Degenerative changes and levoscoliosis of the lumbar spine. Degenerative d isc disease is seen involving L3-L4, L4-L5, and L5-L6 Reading Location: [id number]
--- NOTE | 2025-01-26 07:24 | EKG12_ITS ---
Test Reason : GENERAL Blood Pressure : */* mmHG Vent. Rate : 102 BPM Atrial Rate : 102 BPM P-R Int : 164 ms QRS Dur : 80 ms QT Int : 332 ms P-R-T Axes : 68 74 71 degrees QTcB Int : 432 ms Sinus tachycardia Otherwise normal ECG Confirmed by Enoch Malik ([id number]), news videotape editor YONAS CRUZ ([id number]) on 01/27/2025 11:25:33 AM Referred By: Confirmed By: Enoch Malik
--- NOTE | 2025-01-26 07:24 | ED.VIS.GI ---
HPI HPI - GI History of Present Illness Chief Complaint: Abd Pain Detail of Chief Complaint: Abdominal pain Informant: patient Narrative Narrative: Patient presents to the emergency department complaint of abdominal pain that initially started 3 days ago. Pain located in the left lower quadrant and currently rates it an 8 out of 10. She denies fever although she had some sweats yesterday. Pain worse with certain movements. She has had similar pain in the past when she has had diverticulitis. Last episode of diverticulitis was in 2022. Patient denies any dysuria or frequency or urgency. She denies blood in her stool or black tarry stool. She has had no vomiting. [facility] Medical History EVELYN (acute kidney injury) Aortic insufficiency Chronic back pain Dehydration Diarrhea Diverticulitis Elevated plasma metanephrines Essential hypertension Fatigue LALO (generalized anxiety disorder) Gastroenteritis Hemorrhoid History of Clostridium difficile colitis Hypotension Insomnia Nausea Near syncope Osteoarthritis Osteoporosis Sleep apnea Syncope Weight loss Home Medications ?Medication ?Instructions ?Recorded ?Last Taken ?Type multivitamin 1 ea PO DAILY supplement 10/11/15 04/21/23 History hydrochlorothiazide 12.5 mg capsule 12.5 mg PO QDAY blood pressure 02/14/18 04/26/23 History calcium carbonate 600 mg PO BID supplement 03/15/23 04/21/23 History alendronate 70 mg tablet 70 mg PO QWEEK bones 04/18/23 04/16/23 History lisinopril 40 mg tablet 40 mg PO DAILY blood pressure 04/18/23 04/26/23 History loratadine 10 mg tablet (Claritin) 10 mg PO DAILY allergies 04/27/23 04/26/23 History acyclovir 800 mg tablet 800 mg PO DAILY PRN FEVER BLISTER 07/11/23 Unknown History aspirin 81 mg chewable tablet 1 tab PO DAILY 11/27/23 Unknown History cholecalciferol (vitamin D3) 10 10 mcg PO BID 11/27/23 Unknown History mcg (400 unit) capsule (Vitamin D3) fluticasone propionate 50 2 spray intranasal BID 11/27/23 Unknown History mcg/actuation nasal spray,suspension potassium chloride 8 mEq 8 meq PO DAILY 11/27/23 Unknown History capsule,extended release ciprofloxacin HCl 500 mg tablet 500 mg PO BID #14 TABLETS 01/26/25 Unknown Rx metronidazole 500 mg tablet 500 mg PO Q8H 7 days #21 tabs 01/26/25 Unknown Rx Allergy/AdvReac Type Severity Reaction Status Date / Time ragweed pollen Allergy Intermediate Shortness Verified 01/26/25 07:16 of breath Sulfa (Sulfonamide Allergy Intermediate Hives Verified 01/26/25 07:16 Antibiotics) azithromycin (From Zithromax AdvReac Nausea Verified 01/26/25 07:16 Z-Bruce) Family History Mother Hypertension Father Heart disease Cancer skin cancer Grandmother Heart disease CVA (cerebral vascular accident) Surgical History History of colonoscopy History of tonsillectomy Social History Smoking Status: Never smoker alcohol intake: never substance use type: does not use ROS ROS ED Review of Systems ROS Unobtainable: other Constitutional Constitutional ED: Reports lethargy; Denies chills, fever(s), sweats or weight loss Eyes Eyes: Denies blurry vision, change in vision or diplopia ENT ENT ED: Denies rhinorrhea or sore throat Cardiovascular Cardiovascular: Denies chest pain, orthopnea or racing heartbeat Respiratory/Chest Respiratory/Chest: Denies cough, dyspnea, dyspnea on exertion, orthopnea or sputum Gastrointestinal Gastrointestinal: Reports abdominal pain; Denies diarrhea, nausea or vomiting Genitourinary Genitourinary ED: Denies dysuria, hematuria or urinary frequency Musculoskeletal Musculoskeletal: Denies arthralgias, back pain, myalgias or neck pain Integumentary Denies abscess, Abrasions or rash Neurologic Neurologic: Denies headache(s) or weakness Psychiatric Psychiatric: Denies anxiety, depression or suicidal thoughts Endocrine Endocrinology: Denies polydipsia, polyphagia or polyuria Hematologic/Lymphatic Hematologic/Lymphatic: Denies easy bleeding, easy bruising or lymphadenopathy Allergic/Immunologic Allergic/Immunologic ED: Denies mouth swelling, tongue swelling or urticaria EXAM Physical Exam Const Vital Signs: 01/26/25 07:14 01/26/25 07:16 01/26/25 08:16 Temperature 98.9 F 98.1 F 97.9 F Temperature Source Oral Oral Temporal Pulse Rate 125 H 106 H 55 L Respiratory Rate 18 16 16 Blood Pressure 142/63 H 168/69 H 148/90 H Blood Pressure Mean 89 102 109 Pulse Ox 98 98 100 Oxygen Delivery Method Room Air Room Air Room Air Positive well nourished and well developed General Appearance ED: well developed and NAD HEENT Reports TM's clear and moist mucous membranes normocephalic and atraumatic; Negative for trauma or tenderness Tympanic Membrane ED: Yes TM's clear Eyes PERRL and EOMs intact bilaterally General Eye ED: Negative for pale conjunctiva or scleral icterus Neck no lymphadenopathy, supple and no JVD General: Negative for tenderness Chest Wall inspection of chest normal and palpation of chest normal Chest: Negative for tenderness Resp normal respiratory effort and clear to auscultation bilaterally Effort and Inspection: Negative for respiratory distress or pain with movement Auscultation: Negative for rhonchi, wheezes or diminished lung sounds Cardio regular rhythm, S1 normal heart sound, S2 normal heart sound and no murmurs Rate: tachycardic Peripheral Pulses: pulses 2+ throughout GI normal to inspection, nondistended, normoactive bowel sounds, soft to palpation, non-distended and no masses GI Narrative: Tenderness palpation over left lower quadrant with some guarding. There is no rebound, rigidity, or peritoneal signs. No masses palpated Back/Spine no CVA tenderness and no thoracic nor lumbar tenderness Extremity normal to inspection General Extremety ED: Negative for edema General Extremity: Negative for edema Neuro oriented x3, CN's II-XII intact bilaterally, no sensory deficits noted and gait normal Sensorium / Orientation: awake, alert, oriented to person, oriented to place and oriented to time Motor Exam: strength 5/5 throughout and strength abnormal Psych mental status grossly normal Skin no rashes or lesions noted and no wounds MDM MDM MDM Narrative Medical decision making narrative: Patient presents with left lower quadrant pain with history of diverticulitis. In the differential would be diverticulitis versus UTI or kidney stone or other acute process. Will be established. Labs will be obtained and a CT scan of the abdomen pelvis with IV contrast ordered. Will obtain an EKG as she was tachycardic on arrival. Patient CBC with differential count 12.8 with hemoglobin level 0.5 and platelet count of 270. Chemistries unremarkable. Urinalysis was negative for infection. Lactate normal at 1.4. CT scan of the abdomen pelvis showed acute diverticulitis of the sigmoid colon not complicated. Patient also with small gallstones and degenerative disc disease. Patient will be started on Cipro and Flagyl. She does not want thing for pain. Advised to follow-up with primary care physician within next 3 to 5 days. Vies to return if worsening pain, rectal bleeding, fever, or condition should worsen anyway. Lab Data Attestation: I reviewed the patient's lab results. Labs: Laboratory Results - last 24 hr 01/26/25 01/26/25 07:30 08:20 WBC 12.8 H RBC 3.83 L Hgb 11.5 L Hct 34.5 L MCV 90.1 MCH 30.0 MCHC 33.3 RDW Std Deviation 47.8 H RDW Coeff of Pat 14.5 Plt Count 270 MPV 10.4 Immature Gran % (Auto) 0.500 Neut % (Auto) 75.5 H Lymph % (Auto) 14.9 L [place] % (Auto) 8.7 Eos % (Auto) 0.3 Baso % (Auto) 0.1 Absolute Neuts (auto) 9.7 H Absolute Lymphs (auto) 1.91 Nucleated RBC % 0 Sodium 135 Potassium 3.6 Chloride 102 Carbon Dioxide 22.7 Anion Gap 10 BUN 20 H Creatinine 1.01 Estim Creat Clear Calc 34.04 L Est GFR (MDRD) Non-Af 58 L BUN/Creatinine Ratio 19.8 Glucose 116 H Lactic Acid 1.4 Calcium 9.5 Urine Color Yellow Urine Clarity Sl. Cloudy Urine pH 8.0 Ur Specific [place] 1.010 Urine Protein 15 H Urine Glucose (UA) Normal Urine Ketones Negative Urine Occult Blood Negative Urine Nitrite Negative Urine Bilirubin Negative Urine Urobilinogen Normal Ur Leukocyte Esterase 25 H Urine RBC 0 SEEN Urine WBC 0-5 SEEN Ur Squamous Epith Cells 0 SEEN Urine Bacteria 1+ Urine Mucus 0 SEEN EKG Initial EKG: Attestation: I personally reviewed and interpreted this EKG as follows: Comments: Sepsis sinus rhythm with ventricular rate of 102 bpm with no acute ST segment Discharge Plan Triage Chief Complaint: Abd Pain ED Provider: Isaura Shipley Dx/Rx/DC Orders Clinical Impression: Acute diverticulitis Instructions: ED Diverticulitis Prescriptions: New ciprofloxacin HCl 500 mg tablet 500 mg PO BID Qty: 14 0RF metronidazole 500 mg tablet 500 mg PO Q8H 7 Days Qty: 21 0RF No Action hydrochlorothiazide 12.5 mg capsule 12.5 mg PO QDAY calcium carbonate 600 mg calcium (1,500 mg) tablet 600 mg PO BID alendronate 70 mg tablet 70 mg PO QWEEK Patient Comments: takes on sunday lisinopril 40 mg tablet 40 mg PO DAILY acyclovir 800 mg tablet 800 mg PO DAILY PRN (Reason: FEVER BLISTER) multivitamin 1 EACH tablet 1 ea PO DAILY Patient Comments: supplement loratadine [Claritin] 10 mg tablet 10 mg PO DAILY potassium chloride 8 mEq capsule, extended release 8 meq PO DAILY Patient Comments: Take 1 capsules by mouth two times a day. aspirin 81 mg tablet,chewable 1 tab PO DAILY fluticasone propionate 50 mcg/actuation spray,suspension 2 spray INTRANASAL BID Patient Comments: USE 2 SPRAYS IN EACH NOSTRIL ONCE DAILY. RINSE MOUTH AFTER USE. cholecalciferol (vitamin D3) [Vitamin D3] 10 mcg (400 unit) capsule 10 mcg PO BID Primary Care Provider: Fabian Graham Referrals: Fabian Graham MD [Primary Care Provider] - 3-5 Days Print Language: Thai Disposition Disposition: Home, Self Care
[2025-01-26 07:44] LABS: Absolute Lymphocyte Count 1.91 X10^3/uL (0.83-4.51); Absolute Neutrophil Count 9.7 X10^3/uL (2.0-7.7); Basophil# 0.01 X10^3/uL; Basophil% 0.1 % (0-1); Eosinophil# 0.04 X10^3/uL; Eosinophils% 0.3 % (0-5); Hematocrit 34.5 % (37-47); Hemoglobin 11.5 g/dL (12.0-15.0); Lymphocyte # 1.91 X10^3/ul (0.83-4.51); Lymphocyte % 14.9 % (19-41); Mean Corp Hgb Conc 33.3 g/dL (32-36); Mean Corpuscular Volume 90.1 fL (81-99); Mean Platelet Vol. 10.4 fl (6.2-12.0); Monocyte# 1.11 X10^3/uL; Monocyte% 8.7 % (0-10); NRBC Flagged by Analyzer 0 % (0-5); Neutrophil # 9.68 X10^3/uL (2.7-7.7); Neutrophil % 75.5 % (47-70); Platelet Count 270 K/mm3 (150-450); RBC Distribution Width CV 14.5 % (11.6-14.6); RBC Distribution Width SD 47.8 fl (35.1-43.9); Red Blood Count 3.83 M/mm3 (4.2-5.4); White Blood Count 12.8 K/mm3 (4.4-11.0)
[2025-01-26 08:16] VITALS: BP 148/90; PULSE 55; RESP 16; TEMP 36.6; O2SAT 100
[2025-01-26 08:18] LABS: Lactic Acid 1.4 mmol/L (0.0-2.0)
[2025-01-26 08:19] LABS: Anion Gap 10 (5-15); BUN 20 mg/dL (4-19); BUN/Creat Ratio 19.8 RATIO (10-20); Calcium,Total 9.5 mg/dL (7.6-11.0); Carbon Dioxide 22.7 mmol/L (21.0-32.0); Chloride 102 mmol/L (98-108); Creatinine, Serum 1.01 mg/dL (0.70-1.20); EST Glomerular Filtration Rate 58 (>60); Estimated Creatinine Clearance 34.04 ml/min (50-250); Glucose 116 mg/dL (70-99); Potassium 3.6 mmol/L (3.3-5.1); Sodium Level 135 mmol/L (133-145)
[2025-01-26] MEDS: 0.9% Normal Saline (1000mL) 1,000 ML 125 ML IV (08:23)
[2025-01-26 08:36] LABS: Mucous, Urine 0 SEEN /hpf (<or=2+); Red Blood Cells-Urine 0 SEEN /hpf (0-5); Squamous Epithelial Cells - UA 0 SEEN /hpf (5-10)
[2025-01-26 09:08] LABS: Color, Urine Yellow (Yellow); Glucose, Dipstick Normal (Normal); Ketone-Dipstick Negative (Negative); Leukocyte Esterase-Dipstick 25 /ul (Negative); Nitrite-Dipstick Negative (Negative); Occult Blood-Urine Negative /ul (Negative); Protein-Dipstick 15 mg/dl (Negative); Urine Bilirubin Dipstick Negative (Negative); Urine Clarity Sl. Cloudy (Clear); Urine Urobilinogen Normal (Normal)
[2025-01-26 09:23] LABS: Bacteria 1+ /hpf (None Seen); White Blood Cells 0-5 SEEN /hpf (0-5)
[2025-01-26 10:00] VITALS: BP 118/78; PULSE 89; RESP 16; TEMP 37.2; O2SAT 98
[2025-01-26] MEDS: Ciprofloxacin 500 MG Tablet PO (10:56)
[2025-01-26] MEDS: metroNIDAZOLE 500 MG Tablet PO (10:56)
== END 2025-01-26 11:05 | disposition home or self-care (01) ==
PROVIDERS: Emergency Provider Emergency Medicine; PCP Family Medicine; Visit Provider Emergency Medicine
DX: K57.92 Diverticulitis of intestine, part unspecified, without perforation or abscess without bleeding (principal); I10 Essential (primary) hypertension; G47.30 Sleep apnea, unspecified; Z79.82 Long term (current) use of aspirin; Z79.899 Other long term (current) drug therapy
CPT/HCPCS: 74177; 80048; 81001; 83605; 85025; 93005; 99284; Q9967; A4216

== ENCOUNTER 2025-02-20 10:15 | Outpatient (CLI) | payer MEDICARE, OTHER, SELFPAY ==
[2025-02-20 11:31] LABS: Absolute Lymphocyte Count 2.13 X10^3/uL (0.83-4.51); Absolute Neutrophil Count 1.9 X10^3/uL (2.0-7.7); Basophil# 0.05 X10^3/uL; Basophil% 1.1 % (0-1); Eosinophil# 0.12 X10^3/uL; Eosinophils% 2.6 % (0-5); Hematocrit 33.4 % (37-47); Hemoglobin 11.1 g/dL (12.0-15.0); Lymphocyte # 2.13 X10^3/ul (0.83-4.51); Lymphocyte % 46.5 % (19-41); Mean Corp Hgb Conc 33.2 g/dL (32-36); Mean Corpuscular Hgb 29.7 pg (27.0-32.0); Mean Corpuscular Volume 89.3 fL (81-99); Mean Platelet Vol. 11.6 fl (6.2-12.0); Monocyte# 0.39 X10^3/uL; Monocyte% 8.5 % (0-10); NRBC Flagged by Analyzer 0 % (0-5); Neutrophil # 1.88 X10^3/uL (2.7-7.7); Neutrophil % 41.1 % (47-70); Platelet Count 256 K/mm3 (150-450); RBC Distribution Width SD 45.9 fl (35.1-43.9); Red Blood Count 3.74 M/mm3 (4.2-5.4); White Blood Count 4.6 K/mm3 (4.4-11.0)
[2025-02-20 11:35] LABS: Erythrocyte Sedimentation Rate 31 mm/hr (0-30)
[2025-02-20 12:15] LABS: ALB/GLOB Ratio 1.2 RATIO (0.9-2.4); AST(SGOT) 33 U/L (<=31); Alanine Aminotransfer ALT/SGPT 18 U/L (<=34); Albumin, Serum 4.2 g/dL (3.4-4.8); Alkaline Phosphatase 63 U/L (35-104); Anion Gap 13 (5-15); BUN 20 mg/dL (4-19); Calcium,Total 10.4 mg/dL (7.6-11.0); Carbon Dioxide 21.5 mmol/L (21.0-32.0); Chloride 105 mmol/L (98-108); EST Glomerular Filtration Rate 52 (>60); Globulin 3.4 g/dL (2.2-4.2); Glucose 87 mg/dL (70-99); Potassium 3.6 mmol/L (3.3-5.1); Protein, Total 7.5 g/dL (5.9-8.4); Sodium Level 139 mmol/L (133-145)
[2025-02-20 12:18] LABS: CRP < 3.00 mg/L (0.0-3.0)
[2025-02-25 19:08] LABS: Beef <0.10 kU/L (Class 0); Chocolate <0.10 kU/L (Class 0); Codfish <0.10 kU/L (Class 0); Corn <0.10 kU/L (Class 0); Egg, Whole <0.10 kU/L (Class 0); Milk (Cow) <0.10 kU/L (Class 0); Mussels <0.10 kU/L (Class 0); Peanut <0.10 kU/L (Class 0); Pork <0.10 kU/L (Class 0); Salmon <0.10 kU/L (Class 0); Shrimp <0.10 kU/L (Class 0); Soybean <0.10 kU/L (Class 0); Tuna <0.10 kU/L (Class 0); Wheat <0.10 kU/L (Class 0)
[2025-02-26 04:07] LABS: Albumin 3.6 g/dL (2.9-4.4); Alpha-1-Globulins 0.3 g/dL (0.0-0.4); Alpha-2-Globulins 0.8 g/dL (0.4-1.0); Cytoplasmic Ab (C-ANCA) <1:20 titer (Neg:<1:20); Endomysial Antibody IgA Negative (Negative); Gamma Globulin 1.2 g/dL (0.4-1.8); Immunoglobulin A 275 mg/dL (64-422); Immunoglobulin E 4 IU/mL (6-495); Immunoglobulin G 1242 mg/dL (586-1602); Immunoglobulin M 70 mg/dL (26-217); PROEL- TOTAL PROTEIN 7.1 g/dL (6.0-8.5); Perinuclear Ab (P-ANCA) <1:20 titer (Neg:<1:20); t-Transglutaminase IgA <2 U/mL (0-3)
== END 2025-02-20 23:59 | disposition home or self-care (01) ==
LOC: LAB 10:16
PROVIDERS: PCP Family Medicine; Referring Provider Internal Medicine Gastroenterology; Visit Provider Internal Medicine Gastroenterology
DX: A04.72 Enterocolitis due to Clostridium difficile, not specified as recurrent (principal); D64.9 Anemia, unspecified
CPT/HCPCS: 36415; 80053; 82784; 82785; 82941; 83516; 84165; 85025; 85652; 86003; 86005; 86037; 86140; 86255; 86334

== ENCOUNTER 2025-04-24 10:49 | Outpatient (CLI) | payer MEDICARE, OTHER, SELFPAY ==
--- NOTE | 2025-04-24 10:53 | CDU_ITS ---
Reason For Study Reason For Study: Fibromusscular dysplasia Rt. Velocities/BP Lt. Velocities/BP Prox CCA 77.8/17.3 cm/sec. Prox CCA 79.5/16.8 cm/sec. Mid CCA 72.1/14.5 cm/sec. Mid CCA 80.6/17.9 cm/sec. Dist CCA 72.1/13.5 cm/sec. Dist CCA 65.2/14.6 cm/sec. Prox ICA 35.5/15.4 cm/sec. Prox ICA 58.9/10.7 cm/sec. Mid ICA 86.3/26.7 cm/sec. Mid ICA 65.5/17.3 cm/sec. Dist ICA 115.6/27.9 cm/sec. Dist ICA 106.5/22.5 cm/sec. Rt. ICA/CCA = 1.60. Lt. ICA/CCA = 1.32. Prox ECA 84.4/6 cm/sec. Prox ECA 67.4/4.7 cm/sec. Rt. Vert. 59.7/13.5 cm/sec. Lt. Vert. 57.5/12.4 cm/sec. Right Extracranial There is intimal thickening but no significant atherosclerotic plaque noted in the right common carotid artery. There is heterogeneous, irregular atherosclerotic plaque noted in the right internal carotid artery. There is heterogeneous, irregular atherosclerotic plaque noted in the right external carotid artery. Antegrade flow is noted in the right vertebral artery. Left Extracranial There is intimal thickening but no significant atherosclerotic plaque noted in the left common carotid artery. There is intimal thickening but no significant atherosclerotic plaque noted in the left internal carotid artery. There is heterogeneous, irregular atherosclerotic plaque noted in the left external carotid artery. Antegrade flow is noted in the left vertebral artery. Procedure Carotid Duplex 65804. This is a Carotid Duplex examination using B-mode, color flow and specral Doppler. Exam performed in department. VL/Carotid Duplex Ultrasound Interpretation Summary Mild (<50%) stenosis right extracranial internal carotid. Normal left extracranial internal carotid. Patent and antegrade vertebrals bilaterally. Ordering Physician: Deb Cheung Referring Physician: Fabian Graham Performed By: Amirah Knight RVT
== END 2025-04-24 23:59 | disposition home or self-care (01) ==
PROVIDERS: PCP Family Medicine; Referring Provider Physician Assistant; Visit Provider Physician Assistant
DX: I77.3 Arterial fibromuscular dysplasia (principal)
CPT/HCPCS: 93880

== ENCOUNTER → 2025-05-15 | Outpatient (CLI) | payer MEDICARE, OTHER, SELFPAY ==
--- NOTE | 2025-05-15 08:53 | RDU_ITS ---
Reason For Study Reason For Study: FMD Right Renal Artery Left Renal Artery Right renal artery ostium 94.8/14.5 Left renal artery ostium 97.9/15.7 RSV/EDV. PSV/EDV. Right renal artery proximal 154.4/24.9 Left renal artery proximal PSV/EDV PSV/EDV. 119.8/23 . Right renal artery mid 115.6/24.9 PSV/EDV. Left renal artery mid 114.3/21.2 Right renal artery distal 92.4/23 PSV/EDV. PSV/EDV . Right RAR 2.05. Left renal artery distal 71.7/17.8 Right Renal Parenchyma PSV/EDV. Upper Pole Medula 46.2/17 PSV/EDV. Left RAR 1.59. Right upper pole medulla EDR 0.4 . Left Renal Parenchyma Right upper pole medulla R.I. 0.63 . Left upper pole medulla 36.6/8.4 Upper [place] Cortx 24.3/6 PSV/EDV. PSV/EDV . Right upper pole cortex EDR 0.2 . Left upper pole medulla EDR 0.77 . Right upper pole cortex R.I. 0.75 . Left upper pole medulla R.I. 0.2 . Right lower Pole medulla 33.9/6.4 UP Cortex 23.9/7.5 PSV/EDV. PSV/EDV . Left upper pole cortex EDR 0.3 . Right lower pole medulla EDR 0.2 . Left upper pole cortex R.I. 0.69 . Right lower pole medulla R.I. 0.81 . Left lower Pole medulla 40.3 PSV/EDV . Lower Pole Cortex 20.1/4.2 PSV/EDV. Left lower pole medulla EDR 0.2 . Right lower pole cortex EDR 0.2 . Left lower pole medulla R.I. 0.79 . Right lower pole cortex R.I. 0.79 . Lower Pole Cortx 25.7/7.5 PSV/EDV. Right Renal Hilar Left lower pole cortex EDR 0.3 . Right Hilar avg 54.4/9.7 PSV/EDV. Left lower pole cortex R.I. 0.71 . Right hilar acceleration time 70 m/sec. Left Renal Hilar Right Renal Dimensions LT Hilar avg 51.2/13.9 PSV/EDV . Right kidney size 9.32 cm . Left Renal Dimensions Right cortical dimension 0.85 cm . Left kidney size 10.11 cm . Left cortical dimension 1.45 cm . Aorta Proximal abdominal aorta 1.72 x 1.79 cm . Proximal abdominal aorta peak systolic velocity is 75.4 cm/sec . Distal abdominal aorta 1.23 x 1.24 cm . Distal abdominal aorta peak systolic velocity is 80.9 cm/sec . VL/Renal Artery Duplex Ultrasound Interpretation Summary Right renal artery patent with normal velocities and no evidence of stenosis. Left renal artery patent with normal velocities and no evidence of stenosis. Right renal vein patent. Left renal vein patent. Right kidney normal in size. Left kidney normal in size Ordering Physician: Deb Cheung Referring Physician: Fabian Graham Performed By: Amirah Knight RVT
== END | disposition home or self-care (01) ==
LOC: CVS 08:42
PROVIDERS: PCP Family Medicine; Referring Provider Physician Assistant; Visit Provider Physician Assistant
DX: I77.3 Arterial fibromuscular dysplasia (principal)
CPT/HCPCS: 93975

== ENCOUNTER → 2025-05-22 | Outpatient (CLI) | payer MEDICARE, OTHER, SELFPAY ==
--- NOTE | 2025-05-22 06:02 | CT_ITS ---
PROCEDURE: CTA HEAD AND NECK W/ CONTRAST 05/22/2025 CT head without contrast REASON FOR EXAM: FMD, NEW NECK/HEAD PAIN TECHNIQUE: CTA HEAD AND NECK W/ CONTRAST Multiplanar Sagittal and Coronal images were obtained. Multi planer sagittal axial and coronal CT head without contrast CONTRAST: Isovue 370 VOLUME: 100 mL One or more dose reduction techniques were used (e.g., Automated exposure control, adjustment of the mA and/or kV according to patient size, use of iterative reconstruction technique). RADIATION DOSE SUMMARY: CTDlvol: 11.43 mGy DLP: 420.0 mGycm COMPARISON: CTA head and neck March 27, 2023. FINDINGS: CT head: No acute intracranial abnormalities. No mass effect or midline shift. The craniocervical junction is unremarkable. No ventriculomegaly. The mastoid cells and paranasal sinuses are clear. CTA head and neck: Aortic Arch: Normal size and branching pattern. No significant atherosclerotic plaque. Brachiocephalic and Subclavians: Unremarkable RIGHT Carotid: Right CCA: Unremarkable. Right ICA: Beading appearance of the right internal carotid artery from the level of C2 to skull base which can be from atherosclerotic changes or fibromuscular dysplasia. No significant stenosis. Right ECA: Calcified plaque proximally. LEFT Carotid: Left CCA: Unremarkable. Left ICA: Unremarkable. Left ECA: Calcified plaque proximally. Vertebrals: Codominant. Arise from the subclavians. Both vertebrals form the basilar. RIGHT Vertebral: Unremarkable. LEFT Vertebral: Unremarkable. Anatomy: [place] anatomy is normal. Aneurysm or avm: No intracranial aneurysms or large vascular malformations are identified. Anterior cerebral arteries: Unremarkable: Middle cerebral arteries: Unremarkable. Basilar artery: Unremarkable. Posterior cerebral arteries: Atherosclerotic calcifications of the left posterior cerebral artery causing moderate stenosis. origin of the right posterior cerebral artery with no significant stenosis. Other major branches of the posterior circulation: Unremarkable. Major venous structures: Unremarkable. Other findings: Neck: No lymphadenopathy. Lungs: Lung apices are clear. Bones: Bones are unremarkable. CT/CTA Head AND Neck W/ Contrast IMPRESSION: No acute intracranial abnormalities. Beading appearance of the right internal carotid artery from the level of C2 to skull base which can be from atherosclerotic changes or fibromuscular dysplasia without hemodynamically significant stenosis . Atherosclerotic calcifications of the left posterior cerebral artery causing mo derate stenosis. Otherwise, no hemodynamically significant stenosis in the head and neck. Reading Location: [id number]
--- OUTSIDE RECORDS SUMMARY | 2025-05-22 06:07 | XMS RPT_ITS | CCD ---
Author Organization [facility] Care Team Providers Care Beauty Specialist Name Role Phone Fabian Mcmullen MD Primary Care Provider Dr. Fabian Mcmullen Primary Care Provider Dr. Fabian Mcmullen Referring Provider Dr. Alexei Wells Attending Provider [phone] Fabian Mcmullen MD Primary Care Provider Dr. Fabian Mcmullen Primary Care Provider Dr. Fabian Mcmullen Referring Provider [phone] Alexei Wells Attending Provider [phone] Tavon Rodriguez Emergency Provider [phone] Dr. Parth Guan Admit Provider Unavailable Dr. Parth Guan Attending Provider Unavailable Dr. Parth Guan Other Provider Unavailable Dr. Caitlin Cadena Attending Provider Dr. Caitlin Cadena Other Provider Dr. Edgar Scott Attending Provider [phone] Edgar Scott Referring Provider [phone] Edgar Scott Other Provider Ann SWEEP PRESS OPERATOR, FITZ-Maddie Ridley Attending Provider Dr. Fabian Mcmullen Primary Care Provider Dr. Edgar Scott Attending Provider [phone] Edgar Scott Referring Provider [phone] Edgar Scott Other Provider Ann SWEEP PRESS OPERATOR, FITZ-Maddie Ridley Attending Provider Fabian Mcmullen MD Primary Care Provider [phone] FABIAN MCMULLEN A Primary Care Unavailable ANA NIETO Attending Unavailable BENEDICT, FABIAN A Primary Care Unavailable ALEXEI KRUGER Attending Unavailable Benedict VALERIO, Fabian Heath Primary Care Provider Fabian Mcmullen MD Primary Care Provider Radha MODEL AND PATTERN SUPERVISOR.CARDROOM MANAGER, Katie Unavailable Ernie KEATING, Constance Unavailable Benedict VALERIO, Dr. Peralta Primary Care Provider Quinten STALEY, Dr. Delarosa Emergency Provider [phone] Benedict VALERIO, Fabian Heath Primary Care Provider Quinten STALEY, Dr. Delarosa Attending Provider [phone] Benedict VALERIO, Dr. Peralta Referring Provider Dr. Aleksandar Quigley DO Attending Provider Dann STALEY, Dr. Huertas Referring Provider Radha MODEL AND PATTERN SUPERVISOR.CARDROOM MANAGER, Katie Unavailable Ernie KEATING, Constance Unavailable Dr. Alexei Wells MD Attending Provider Deb Liriano Attending Provider [phone] Deb Liriano Referring Provider [phone] CONSTANCE KLEIN Referring Unavailable BENEDICT, FABIAN A Primary Care Unavailable CONSTANCE KLEIN Referring Unavailable BENEDICT, FABIAN A Primary Care Unavailable CONSTANCE KLEIN Attending Unavailable BENEDICT, FABIAN A Primary Care Unavailable BENEDICT, FABIAN A Referring Unavailable BENEDICT, FABIAN A Primary Care Unavailable KATIE CHAUDHARI Attending Unavailable BENEDICT, FABIAN A Primary Care Unavailable KATIE CHAUDHARI Attending Unavailable BENEDICT, FABIAN A Primary Care Unavailable BENEDICT, FABIAN A Primary Care Unavailable CONSTANCE KLEIN Attending Unavailable BENEDICT, FABIAN A Primary Care Unavailable BENEDICT, FABIAN A Referring Unavailable BENEDICT, FABIAN A Primary Care Unavailable CONSTANCE KLEIN Attending Unavailable CONSTANCE KLEIN Referring Unavailable BENEDICT, FABIAN A Primary Care Unavailable BENEDICT, FABIAN A Primary Care Unavailable BENEDICT, FABIAN A Attending Unavailable BENEDICT, FABIAN A Primary Care Unavailable CONSTANCE KLEIN Referring Unavailable CONSTANCE KLEIN Attending Unavailable BENEDICT, FABIAN A Primary Care Unavailable BENEDICT, FABIAN A Primary Care Unavailable BENEDICT, FABIAN A Referring Unavailable BENEDICT, FABIAN A Primary Care Unavailable BENEDICT, FABIAN A Referring Unavailable BENEDICT, FABIAN A Primary Care Unavailable CONSTANCE KLEIN Attending Unavailable BENEDICT, FABIAN A Primary Care Unavailable BENEDICT, FABIAN A Attending Unavailable Benedict, Fabian Referring Unavailable Benedict, Fabian Primary Care Unavailable Friend, Aleksandar Attending Unavailable Isaura Shipley Attending Unavailable Benedict, Fabian Primary Care Unavailable Benedict, Fabian Referring Unavailable Benedict, Fabian Primary Care Unavailable Gunpowder, Alexei Attending Unavailable Cheung, Deb Referring Unavailable Benedict, Fabian Primary Care Unavailable Gunpowder, Alexei Attending Unavailable Cheung, Deb Referring Unavailable Benedict, Fabian Primary Care Unavailable Cheung, Deb Attending Unavailable Cheung, Deb Referring Unavailable Benedict, Fabian Primary Care Unavailable Cheung, Deb Attending Unavailable Cheung, Deb Referring Unavailable Cheung, Deb Attending Unavailable Benedict, Fabian Primary Care Unavailable Benedict, Fabian Primary Care Unavailable Friend, Aleksandar Attending Unavailable Friend, Aleksandar Referring Unavailable Benedict, Fabian Primary Care Unavailable Russell, Alexei Attending Unavailable Benedict, Fabian Referring Unavailable Benedict, Fabian Primary Care Unavailable Russell, Alexei Attending Unavailable Benedict, Fabian Primary Care Unavailable Cheung, Deb Attending Unavailable Benedict, Fabian Referring Unavailable Benedict, Fabian Referring Unavailable Friend, Aleksandar Attending Unavailable Benedict, Fabian Primary Care Unavailable Allergies Allergy Classification Reported Allergen(s) Allergy Type Date of Onset Reaction(s) Facility (20 sources) Amoxicillin / Clavulanate; Translations: [AMOXICILLIN-POT CLAVULANATE] Drug Allergy 7 Intolerance, GI Intolerance [facility] Work Phone: (20 sources) Cat; Translations: [CATS] Propensity to adverse reactions 0 Intolerance [facility] Work Phone: (20 sources) Echinacea Preparation; Translations: [ECHINACEA] Drug Allergy 6 Swelling [facility] Work Phone: (20 sources) Pollen; Translations: [POLLEN] Propensity to adverse reactions 0 Intolerance [facility] Work Phone: (20 sources) Sulfonamides (Antibiotic); Translations: [SULFA (SULFONAMIDE ANTIBIOTICS)] Drug Allergy 7 Rash [facility] (20 sources) Ragweed; Translations: [RAGWEED] Propensity to adverse reactions 0 Intolerance, GI Intolerance [facility] Work Phone: (13 sources) Azithromycin Drug Allergy 2 Nausea [facility] (12 sources) Sulfonamides (Antibiotic) Allergy to substance 3 Hives [facility] (9 sources) Ragweed pollen; Translations: [ragweed pollen] Allergy to substance 3 Shortness of breath [facility] (4 sources) Pollen; Translations: [POLLEN EXTRACTS] Propensity to adverse reactions to drug 0 GI Intolerance [facility] (6 sources) Cat Dander; Translations: [CAT DANDER] Propensity to adverse reactions to drug 0 GI Intolerance [facility] Comment on above: Congestion (1 source) Azithromycin Drug Allergy 5 [facility] Rep[facility] (1 source) Sulfonamides (Antibiotic) Drug allergy (disorder) 5 [facility] Rep[facility] Medications Current Medications Medication Drug Class(es) Dates Sig (Normalized) Sig (Original) acyclovir 800 mg oral tablet (20 sources) Herpesvirus Nucleoside Analog DNA Polymerase Inhibitor, Herpes Simplex Virus Nucleoside Analog DNA Polymerase Inhibitor, Herpes Zoster Virus Nucleoside Analog DNA Polymerase Inhibitor Start: 04-18-2023 End: 07-11-2023 take 1 tablet by mouth once daily as needed for fever Acyclovir 800 mg tablet Active 800 mg PO DAILY as needed for FEVER BLISTER July 11, 2023 9:54am Start: 05-28-2020 End: 08-08-2024 acyclovir (ZOVIRAX) 800 mg t ablet Indications: Recurrent cold sores 1 tablet three times daily. 30 tablet 5 02/09/2023 Active Comment on above: 1 tablet three times daily. alendronic acid 70 mg oral tablet (20 sources) Bisphosphonate Start: 2 End: 5 take 1 tablet by mouth every week Alendronate 70 mg tablet Active 70 mg PO EVERY WEEK April 18, 2023 12:00am bones Start: 09-05-2022 alendronate (F OSAMAX) 70 MG tablet Take 1 (one) tablet (70 mg total) by mouth over 168 hr . 0 09/05/2022 Active Comment on above: Take 1 tablet by teresa one time a week. In AM with cup of water on empty stomach. Nothing else by mouth and stay upright for 30 min. aspirin 81 mg chewable tablet (20 sources) Platelet Aggregation Inhibitor, Nonsteroidal Anti-inflammatory Drug Start: 11-27-2023 Aspirin 81 mg tablet,chewable Active 1 {tbl} PO DAILY November 27, 2023 1:00am Start: 08-03-2022 End: 07-11-2023 take 1 tablet by mouth once daily Aspirin (Ecotrin Low Strength) 81 mg tablet,delayed release (DR/EC) Discontinued 81 mg PO DAILY April 27, 2023 12:00am July 11, 2023 10:51am blood thinner Comment on above: Take 1 tablet by teresa once daily. calcium carbonate 1500 mg oral tablet (12 sources) Start: 03-15-20 take 1 tablet by mouth twice daily Calcium Carbonate 600 mg calcium (1,500 mg) tablet Active 600 mg PO TWICE A DAY March 15, 2023 12:00am supplement cefadroxil 500 mg oral capsule (4 sources) Cephalosporin Antibacterial Start: 05-11-20 take 1 capsule by mouth twice daily cefADROxil (DURICEF) 500 mg capsule Take 1 capsule by mouth two times a day. 20 capsule 05/11/2025 Active doxycycline hyclate 100 mg oral tablet (3 sources) Tetracycline-class Drug Start: 08-03-20 23 End: 08-10-20 23 take 1 tablet by mouth twice daily doxycycline (VIBRA-TABS) 100 mg tablet Take 1 tablet by mouth two times a day for 7 days. 14 tablet 0 08/03/2023 08/10/2023 Active Comment on above: Take 1 tablet by teresa two times a day for 7 days. fluticasone propionate 0.05 mg/actuat metered dose nasal spray (20 sources) Corticosteroid Start: 01-29-20 24 End: 05-01-20 25 take 2 spray(s) by mouth once daily fluticasone (FLONASE) 50 mcg/actuation nasal spray Indications: Sore throat Use 2 sprays in each nostril once daily. Rinse mouth after use. 16 mL 2 02/12/2025 Active Start: 11-27-2023 End: 04-15-2025 Fluticasone Propionate 50 mc g/actuation spray,suspension Active 2 NMA INTRANASAL TWICE A DAY as needed April 15, 2025 1:17pm Start: 11-27-2023 Fluticasone Pr opionate Active 2 SPRAY INTRANASAL TWICE A DAY November 27, 2023 12:00am Start: 10-09-2023 take 2 spray(s) by m outh once daily fluticasone propionate (FLONASE) 50 mcg/actuation nasal spray USE 2 SPRAYS IN EACH NOSTRIL ONCE DAILY. RINSE MOUTH AFTER USE. 0 10/09/2023 Active Start: 01-02-2023 End: 02-15-2023 take 2 spray(s) by mouth once daily fluticasone (FLONASE) 50 mcg/actuation nasal spray Indications: Sore throat Use 2 Sprays in each nostril once daily. Rinse mouth after use. 16 mL 1 01/16/2023 02/15/2023 Active Start: 12-11-2022 End: 01-10-2023 take 2 spray(s) by mouth once daily fluticasone (FLONASE) 50 mcg/actuation nasal spray Indications: Sore throat , Strep throat exposure , Sinus pressure , Right ear pain , Non-recurrent acute serous otitis media of right ear Use 2 Sprays in each nostril once daily. Rinse mouth after use. 16 g 1 12/11/2022 01/02/2023 Discontinued Comment on above: Use 2 Sprays in each nostril once daily. Rinse mouth after use. Gymnema [place] (Bulk) (7 sources) Start: 11-22-2020 Gymnema [place] (Bulk) Active 1 [facility] DAILY November 22, 2020 11:16am Start: 11-22-2020 Gymnema [place] ( Bulk) Active 1 GM MC TWICE A DAY November 22, 2020 12:00am Start: 11-22-2020 Gymnema [place] ( Bulk) Active 1 [facility] DAILY November 22, 2020 1:00am hydroCHLOROthiazide 12.5 mg oral capsule (20 sources) Thiazide Diuretic Start: 02-14-2018 End: 12-15-2024 take 1 capsule by mouth once daily Hydrochlorothiazide 12.5 mg capsule Active 12.5 mg PO daily February 14, 2018 12:00am blood pressure Comment on above: Take 1 capsule by mo [facility] once daily. L.acid/L.casei/B.bif/B.l on/FOS (PROBIOTIC BLEND ORAL) (20 sources) L.acid/L.casei/B .bif/B. yevgeniy/FOS (PROBIOTIC BLEND ORAL) Take by mouth two times a day. refrigerated Active L.acid/L.casei/B .bif/B.yevgeniy/FOS (PROBIOTIC BLEND ORAL) Take by mouth. Active L.acid/L.casei/B .bif/B.yevgeniy/FOS (PROBIOTIC BLEND ORAL) Take by mouth. 0 Active Comment on above: Take by mouth. levoFLOXacin 500 mg oral tablet (1 source) Quinolone Antimicrobial Start: 12-22-19 End: 01-01-20 take 1 tablet by mouth once daily levoFLOXacin (LEVAQUIN) 500 mg tablet Take 1 tablet by mouth once daily for 10 days. 10 tablet 0 12/21/2022 12/31/2022 Active Comment on above: Take 1 tablet by [facility] once daily for 10 days. lisinopril 40 mg oral tablet (20 sources) Angiotensin Converting Enzyme Inhibitor Start: 09-08-20 End: 12-16-19 take 0.5 tablet by mouth twice daily lisinopril (ZESTRIL) 40 mg tablet Indications: Primary hypertension Take 0.5 tablets by mouth two times a day. 90 tablet 1 12/15/2024 Active Start: 03-15-2023 take 40 mg by mouth once daily Lisinopril Active 40 MG PO DAILY March 15, 2023 1:14pm Start: 02-09-2023 End: 09-08-2024 take 1 tablet by mouth once daily Lisinopril 40 mg tablet Active 40 mg PO DAILY April 18, 2023 12:00am blood pressure Start: 08-09-2022 End: 02-09-2023 take 1 tablet by mouth once daily lisinopril (ZESTRIL,PRINIVIL) 30 mg tablet Indications: Primary hypertension TAKE 1 TABLET BY MOUTH EVERY DAY 30 tablet 5 10/19/2022 02/09/2023 Discontinued Start: 04-27-2022 End: 08-09-2022 take 1 tablet by mouth once daily lisinopril (ZESTRIL, PRINIVIL) 20 mg tablet Take 1 tablet by mouth once daily. 90 tablet 1 04/27/2022 08/09/2022 Discontinued Start: 04-25-2021 End: 10-19-2021 take 1 tablet by mouth once daily lisinopril (ZESTRIL, PRINIVIL) 20 mg tablet Take 1 tablet by mouth once daily. 90 tablet 1 10/19/2021 Active Start: 2015 End: 03-15-2023 take 2 tablets by mouth once daily Lisinopril 10 MG tablet Discontinued 20 mg PO DAILY 2015 1:00am March 15, 2023 1:16pm Start: 2015 End: 03-15-2023 take 20 mg by mouth once daily Lisinopril Discontinued 20 MG PO DAILY 2015 12:00am March 15, 2023 12:16pm Comment on above: Take 1 tablet by teresa th once daily. take 1 tablet by teresa th once daily TAKE 1 TABLET BY TERESA TH EVERY DAY loratadine 10 mg oral tablet (20 sources) Start: 2011 take 1 tablet by mouth once daily Loratadine (Claritin) 10 mg tablet Active 10 mg PO DAILY April 27, 2023 12:00am allergies Comment on above: Take 1 tablet by teresa th once daily. methylPREDNISolone 4 mg oral tablet (4 sources) Corticosteroid Start: 2023 methylPREDNISolone (MEDROL DOSEPACK) 4 mg tablet TAKE BY MOUTH DIRECTED ON PACKAGE WITH FOOD 0 11/16/2023 Active Start: 11-16-2023 End: 11-22-2023 methylPREDNISolone (MEDROL, JAEL,) 4 mg Dose-Pack Follow dosing instructions, take with food. 21 tablet 0 11/16/2023 11/22/2023 Active Comment on above: Follow dosing instru ctions, take with food. multivit,iron,mineral s/lutein (CENTRUM SILVER ULTRA WOMEN'S ORAL) (20 sources) take 1 tablet by mouth once daily multivit,iron,minera ls/lutein (CENTRUM SILVER ULTRA WOMEN'S ORAL) Take by mouth. Take one tablet daily Active Multivitamin 1 EACH tablet (6 sources) Start: 10-11-20 Multivitamin 1 EACH tablet Active 1 NMA PO DAILY 2015 1:00am supplement Start: 2015 Multivitamin 1 EACH tablet Active 1 NMA PO DAILY 2015 1:00am Multivitamin preparation (7 sources) Start: 2015 Multivitamin A ctive 1 EACH PO DAILY 2015 6:03pm Start: 2015 Multivitamin A ctive 1 EACH PO DAILY 2015 12:00am Start: 2015 Multivitamin A ctive 1 EACH PO DAILY 2015 1:00am ondansetron 4 mg disintegrating oral tablet (20 sources) Serotonin-3 Receptor Antagonist Start: 11-27-2023 ondansetron (ZOFRAN-ODT) 4 MG disintegrating tablet Start: 11-27-2023 End: 01-26-2025 take 2 tablets by mouth every eight hours as needed for nausea Ondansetron 4 mg tablet,disintegrating Discontinued 8 mg PO EVERY 8 HOURS NEEDED as needed for Nausea November 27, 2023 1:00am January 26, 2025 7:25am Start: 11-27-2023 take 8 mg by mouth e very eight hours as needed Ondansetron Active 8 MG PO EVERY 8 HOURS NEEDED November 27, 2023 12:00am Start: 04-19-2023 End: 04-30-2023 take 1 tablet by mouth every eight hours as needed for nausea Ondansetron 4 mg tablet,disintegrating Discontinued 4 mg PO EVERY 8 HOURS NEEDED as needed for Nausea 10 0 April 19, 2023 12:00am April 30, 2023 3:17pm On Hold: doesn't need anymore Start: 01-11-2022 End: 03-15-2023 take 1 tablet by mouth every six hours as needed for nausea and vomiting Ondansetron 4 mg tablet,disintegrating Discontinued 4 mg PO EVERY 6 HOURS as needed for nausea and vomiting 7 0 January 11, 2022 12:00am March 15, 2023 1:16pm oseltamivir 75 mg oral capsule (1 source) Neuraminidase Inhibitor Start: 09-08-2022 End: 09-13-2022 take 1 capsule by mouth twice daily oseltamivir (TAMIFLU) 75 mg capsule Take 1 capsule by mouth twice daily for 5 days. 10 capsule 0 09/08/2022 09/13/2022 Active Comment on above: Take 1 capsule by [facility] twice daily for 5 days. potassium chloride 8 meq extended release oral capsule (20 sources) Start: 11-27-2023 take 1 capsule by mouth once daily Potassium Chloride 8 mEq capsule, extended release Active 8 meq PO DAILY November 27, 2023 1:00am Start: 09-04-2023 End: 05-11-2025 Potassium Chloride (KLOR-CON 8) 8 mEq tablet Take 1 tablet by mouth two times a day. 180 tablet 1 05/11/2025 Active Start: 07-06-2021 End: 09-04-2023 take 1 capsule by mouth twice daily potassium chloride SR (MICRO-K) 8 mEq cpER Take 1 capsule by mouth two times a day. 180 capsule 1 08/23/2023 09/04/2023 Discontinued (Not on Formulary) Start: 02-14-2018 End: 07-11-2023 take 8 mEq by mouth twice daily Potassium Chloride 20 mEq tablet extended release Discontinued 8 meq PO TWICE A DAY February 14, 2018 12:00am July 11, 2023 10:51am supplement Start: 02-14-2018 End: 07-11-2023 take 8 mEq by mouth twice daily Potassium Chloride Dis continued 8 MEQ PO TWICE A DAY February 13, 2018 11:00pm July 11, 2023 9:51am Comment on above: Take 1 capsule by [facility] twice daily. Take 1 capsule by [facility] two times a day. Take 1 tablet by [facility] two times a day. psyllium husk (METAMUCIL ORAL) (7 sources) psyllium husk (METAMUCIL ORAL) Take by mouth as directed. Active vancomycin 125 mg oral capsule (20 sources) Glycopeptide Antibacterial Start: End: take 1 capsule by mouth once daily vancomycin (VANCOCIN) 125 mg capsule Take 1 capsule by mouth once daily for 10 days. 10 capsule 05/11/2025 05/21/2025 Active Start: 05-01-2023 End: 07-11-2023 Vancomycin 125 mg capsule Discontinued 0 mg .ROUTE .COMPLEX 52 0 May 01, 2023 12:00am July 11, 2023 9:56am 125 mg every 6 hours for 4 Days; 125 mg twice a day for 7 Days; 125 mg daily for 7 Days; 125 mg every other day for 14 Days Please contact the information source for Taper Schedule details. End: 08-08-2023 take 1 capsule by mouth four times daily vancomycin (VANCOCIN) 125 mg capsule Take 125 mg by mouth four times daily. Patient is tapering medication. Last dose will be 06/04/23 08/08/2023 Discontinued (Course of therapy completed) Comment on above: Take 125 mg by mouth four times daily. Patient is tapering medication. Last dose will be 06/04/23 zolpidem tartrate 10 mg oral tablet (20 sources) gamma-Aminobutyric Acid-ergic Agonist Start: 07-06-2021 End: 08-29-2025 take 1 tablet by mouth at bedtime as needed zolpidem (AMBIEN) 10 mg Indications: Primary insomnia Take 1 tablet by mouth at bedtime as needed for up to 180 days. FOR INSOMNIA 90 tablet 1 03/02/2025 08/29/2025 Active Comment on above: Take 1 tablet by teresa th at bedtime as needed for up to 180 days. FOR INSOMNIA Completed/Discontinued Medications Medication Drug Class(es) Dates Sig (Normalized) Sig (Original) Acetaminophen / Chlorpheniramine (20 sources) Histamine-1 Receptor Antagonist End: 05-07-2023 acetaminophen/chlo rpheniramine (CORICIDIN HBP COLD AND FLU ORAL) Take by mouth. 05/07/2023 Discontinued End: 05-07-2023 acetaminophen/chlorphenirami ne (CORICIDIN HBP COLD AND FLU ORAL) Take by mouth. 0 05/07/2023 Discontinued acetaminophen/ch lorpheniramine (CORICIDIN HBP COLD AND FLU ORAL) Take by mouth. 0 Active Comment on above: Take by mouth. acetaminophen 325 mg / HYDROcodone bitartrate 5 mg oral tablet (10 sources) Opioid Agonist Start: 04-19-2023 End: 04-30-2023 Hydrocodone-Acetaminophen 5-325 mg tablet Discontinued 1 {tbl} PO EVERY 6 HOURS NEEDED as needed for Pain 10 3 0 April 19, 2023 April 30, 2023 3:17pm Diverticulitis On Hold: haven,t needed Start: 04-19-2023 End: 04-30-2023 take 1 tablet by mouth every six hours as needed Hydrocodone-Acetaminophen Discontinued 1 TABLET PO EVERY 6 HOURS NEEDED 10 April 19, 2023 April 30, 2023 2:17pm [id number] actuat albuterol 0.09 mg/actuat metered dose inhaler (20 sources) beta2-Adrenergic Agonist Start: 08-03-2023 End: 08-08-2024 take 2 puff(s) by inhalation every six hours as needed albuterol HFA (PROAIR HFA) 90 mcg/actuation inhaler Inhale 2 Puffs as instructed every 6 hours as needed. 1 Each 08/03/2023 08/08/2024 Discontinued (Course of therapy completed) Comment on above: Inhale 2 Puffs as instructed every 6 aren rs as needed. amoxicillin 80 mg/ml oral suspension (3 sources) Penicillin-class Antibacterial Start: 12-11-2022 End: 12-21-2022 take 6.3 mL by mouth twice daily amoxicillin (AMOXIL) 400 mg/5 mL suspension Indications: Sore throat , Strep throat exposure , Sinus pressure , Right ear pain , Non-recurrent acute serous otitis media of right ear Take 6.3 mL by mouth twice daily for 10 days. 130 mL 0 12/11/2022 12/21/2022 Comment on above: Take 6.3 mL by mouth twice daily for 10 days. amoxicillin 875 mg / clavulanate 125 mg oral tablet (14 sources) Penicillin-class Antibacterial Start: 04-19-2023 End: 04-30-2023 take 1 tablet by mouth every twelve hours Amoxicillin-Pot Clavulanate 875-125 mg tablet Discontinued 875 mg PO Q12H 20 0 April 19, 2023 12:00am April 30, 2023 3:17pm End: 01-04-2022 amoxicillin-clavulanate (AUG MENTIN) 400-57 mg/5 mL suspension Take by mouth twice daily. 01/04/2022 Discontinued take 1 tablet by teresa th twice daily, then take 1 tablet by mouth every twelve hours amoxicillin-clavulanic acid (AUGMENTIN) 875-125 mg per tablet Take 1 tablet by mouth twice daily. Take 1 tablet my mouth every 12 hours 0 Active Comment on above: Take 1 tablet by teresa twice daily. Take 1 tablet my mouth every 12 hours benzonatate 100 mg oral capsule (20 sources) Non-narcotic Antitussive Start: 3 End: 4 take 2 capsules by mouth every eight hours as needed benzonatate (TESSALON PERLES) 100 mg capsule Take 2 capsules by mouth three times a day as needed. 30 capsule 12/20/2023 08/08/2024 Discontinued (Course of therapy completed) Start: 09-08-2022 End: 10-08-2022 take 1 capsule by mouth every eight hours as needed benzonatate (TESSALON PERLES) 100 mg capsule Take 1 capsule by mouth three times daily as needed for cough. 30 capsule 0 09/08/2022 10/08/2022 Active Start: 09-12-2021 End: 01-04-2022 take 1 capsule by mouth every eight hours as needed for cough and cough Benzonatate 200 mg capsule Indications: Cough Take 1 capsule by mouth three times daily as needed. 20 capsule 09/12/2021 01/04/2022 Discontinued Comment on above: Take 1 capsule by mo [facility] three times daily as needed for cough. Take 2 capsules by [facility] three times a day as needed. Carica Papaya (PAPAYA ENZYME) chew (1 source) End: 01-05-20 Carica Papaya (PAPAYA ENZYME) chew Take by mouth. 01/04/2022 Discontinued (Discontinued by Patient) cholecalciferol 0.01 mg oral capsule (20 sources) Vitamin D Start: 11-27-19 24 End: 04-15-20 25 take 1 capsule by mouth twice daily Cholecalciferol (Vitamin D3) (Vitamin D3) 10 mcg (400 unit) capsule Discontinued 10 ug PO TWICE A DAY November 27, 2023 1:00am April 15, 2025 1:16pm Start: 11-27-2023 take 1 capsule by mo [facility] twice daily Cholecalciferol (Vitamin D3) (Vitamin D3) 10 mcg (400 unit) capsule Active 10 MCG PO TWICE A DAY November 27, 2023 12:00am End: 08-08-2024 take 1 tablet by mouth twice daily cholecalciferol (VITAMIN D3) 1,000 unit tab tablet Take 1,000 Units by mouth twice daily. 08/08/2024 Discontinued (Clinical Decision) Comment on above: Take 1,000 Units by mouth twice daily. ciprofloxacin 500 mg oral tablet (6 sources) Quinolone Antimicrobial Start: 01-27-20 End: 03-04-20 take 1 tablet by mouth twice daily Ciprofloxacin Hcl 500 mg tablet Discontinued 500 mg PO TWICE A DAY January 26, 2025 12:00am March 04, 2025 1:54pm Ntfurrxg-[id number]- Joan-Bosw (4 sources) Start: 04-18-20 End: 04-30-20 take 1 tablet by mouth twice daily at mealtime Koqfsikt-Qgxh-Ted9-C -Joan-Bosw Discontinued 1 TABLET PO TWICE A DAY April 17, 2023 11:00pm April 30, 2023 2:17pm give after food/meal Start: 04-18-2023 End: 04-30-2023 take 1 tablet by mouth twice daily at mealtime Zesfanej-Ntuk-Jvh4-C-Joan-Bosw Discontin ued 1 TABLET PO TWICE A DAY April 18, 2023 12:00am April 30, 2023 3:17pm give after food/meal Start: 04-18-2023 take 1 tablet by teresa twice daily at mealtime Kawhshpm-Gpdk-Arx6-C-Joan-Bosw Active 1 TABLET PO TWICE A DAY April 18, 2023 12:00am give after food/meal Feftvbow-Uhnz-Pjs3-C-Joan-Garrett sw 750-625-30 mg tablet (6 sources) Start: 04-18-2023 End: 04-30-2023 Gfigxqrp-Unac-Cyx3-C-Joan-Garrett sw 750-625-30 mg tablet Discontinued 1 {tbl} PO TWICE A DAY April 18, 2023 12:00am April 30, 2023 3:17pm joints On Hold: Pt is ill give after food/meal Start: 04-18-2023 End: 04-30-2023 Fzbdyvqg-Cgqk-Kon0-C-Joan-Garrett sw 750-625-30 mg tablet Discontinued 1 {tbl} PO TWICE A DAY April 18, 2023 12:00am April 30, 2023 3:17pm On Hold: Pt is ill give after food/meal Gymnema [place] (Bulk) 1 GM powder (6 sources) Start: 11-22-2020 End: 01-26-2025 Gymnema [place] (Bulk) 1 GM pow renetta Discontinued 1 g MC TWICE A DAY November 22, 2020 1:00am January 26, 2025 7:25am blood sugar Start: 11-22-2020 End: 01-26-2025 Gymnema [place] (Bulk) 1 GM pow renetta Discontinued 1 g MC TWICE A DAY November 22, 2020 1:00am January 26, 2025 7:25am GYMNEMA LEAF, BULK, MISC (20 sources) End: 05-07-2023 GYMNEMA LEAF, BULK, MISC Discontinued End: 05-07-2023 GYMNEMA LEAF, BULK, MISC GYMNEMA LEAF, BU LK, MISC metoprolol tartrate 50 mg oral tablet (8 sources) beta-Adrenergic Ale Start: 08-06-2023 End: 11-27-2023 take 1 tablet by mouth once Metoprolol Tartrate 50 mg tablet Discontinued 50 mg PO ONCE 1 0 August 06, 2023 12:00am November 27, 2023 2:09am Take one hour prior to test 08/07/23 metroNIDAZOLE 500 mg oral tablet (6 sources) Nitroimidazole Antimicrobial Start: 01-26-2025 End: 03-04-2025 take 1 tablet by mouth every eight hours Metronidazole 500 mg tablet Discontinued 500 mg PO Q8H 21 7 0 January 26, 2025 12:00am March 04, 2025 1:54pm multivitamin/iron/f olic acid (CENTRUM WOMEN ORAL) (20 sources) End: 05-07-2023 multivitamin/iron/ folic acid (CENTRUM WOMEN ORAL) Take by mouth. 0 05/07/2023 Discontinued multivitamin/iro n/folic acid (CENTRUM WOMEN ORAL) Take by mouth. 0 Active Comment on above: Take by mouth. perflutren lipid microspheres 1.3 mL in NaCl (PF) 0.9% 10 mL injection (DEFINITY) (20 sources) Start: 2 End: perflutren lipid microspheres 1.3 mL in NaCl (PF) 0.9% 10 mL injection (DEFINITY) predniSONE 20 mg oral tablet (3 sources) Start: 3 End: 3 take 2 tablets by mouth once daily predniSONE (DELTASONE) 20 mg tablet Take 2 tablets by mouth once daily for 5 days. 10 tablet 0 08/03/2023 08/08/2023 Discontinued (Course of therapy completed) Comment on above: Take 2 tablets by [facility] once daily for 5 days. psyllium husk (DAILY FIBER ORAL) (20 sources) End: 3 psyllium husk (DAILY FIBER ORAL) Take by mouth. phylicia-fiber daily 05/07/2023 Discontinued End: 05-07-2023 psyllium husk (DAILY FIBER O RAL) Take by mouth. phylicia-fiber daily 0 05/07/2023 Discontinued psyllium husk (D AILY FIBER ORAL) Take by mouth. phylicia-fiber daily 0 Active Comment on above: Take by mouth. phylicia- fiber daily 125 ml sodium chloride 9 mg/ml prefilled syringe (20 sources) Start: 07-17-20 22 End: 10-16-19 24 sodium chloride 0.9 % (flush) 10 mL (BD POSIFLUSH) triamcinolone acetonide 0.055 mg/actuat metered dose nasal spray (20 sources) Corticosteroid Start: 05-17-20 16 End: 01-03-20 23 take 2 spray(s) nasal route once daily triamcinolone acetonide (NASACORT AQ) 55 mcg nasal inhaler Indications: Allergic rhinitis, unspecified allergic rhinitis type Use 2 Sprays in each nostril once daily. 1 g 5 05/17/2016 01/02/2023 Discontinued Comment on above: Use 2 Sprays in each nostril once daily. Problems Active Problems Problem Classification Problem Date Documented Da te Episodic/Chronic Acute and unspecified renal failure (10 sources) Injury of kidney; Translations: [Acute kidney failure, unspecified] 04-27-2023 Episodic Acute bronchitis (2 sources) Viral bronchitis; Translations: [Acute bronchitis due to other specified organisms] 12-20-2023 Episodic Anxiety disorders (20 sources) Generalized anxiety disorder; Translations: [Generalized anxiety disorder] Onset: 1 12-29-2020 Chronic Bacterial infection; unspecified site (1 source) Other specified bacterial agents as the cause of diseases classified elsewhere; Translations: [Bacterial sinusitis] Onset: 5 Episodic Chronic obstructive pulmonary disease and bronchiectasis (1 source) Bronchitis; Translations: [Bronchitis, not specified as acute or chronic] 08-03-2023 Episodic Deficiency and other anemia (4 sources) Anemia; Translations: [Anemia, unspecified] 02-12-2025 Episodic Deficiency and other anemia (1 source) Anemia, unspecified; Translations: [Anemia, unspecified type] Onset: 5 Episodic Diseases of white blood cells (10 sources) Leukocytosis; Translations: [Elevated white blood cell count, unspecified] 04-19-2023 Chronic Disorders of teeth and jaw (2 sources) Pain of right temporomandibular joint; Translations: [Arthralgia of right temporomandibular joint] Onset: 5 05-11-2025 Episodic Diverticulosis and diverticulitis (20 sources) Diverticulitis; Translations: [Diverticulitis of intestine, part unspecified, without perforation or abscess without bleeding] Onset: 3 04-19-2023 Chronic Essential hypertension (20 sources) Benign essential hypertension; Translations: [Essential (primary) hypertension] Onset: 2 07-21-2017 Chronic Fluid and electrolyte disorders (20 sources) Dehydration; Translations: [Dehydration] 11-22-2020 Episodic Genitourinary symptoms and ill-defined conditions (2 sources) Nocturia; Translations: [Nocturia] Onset: 5 03-17-2025 Episodic Headache; including migraine (3 sources) Headache; Translations: [Headache, unspecified headache type] Episodic Headache; including migraine (2 sources) Headache; including migraine; Translations: [Headache, unspecified] Onset: 5 Heart valve disorders (20 sources) Nonrheumatic aortic (valve) insufficiency; Translations: [Aortic valve disorders] Onset: 2 Chronic Hemorrhoids (13 sources) Hemorrhoids; Translations: [Unspecified hemorrhoids] 11-22-2020 Episodic Immunizations and screening for infectious disease (3 sources) Exposure to streptococcal pharyngitis; Translations: [Contact with and (suspected) exposure to other bacterial communicable diseases] Episodic Intestinal infection (20 sources) Clostridium difficile colitis; Translations: [Enterocolitis due to Clostridium difficile, not specified as recurrent] Onset: 5 05-14-2023 Episodic Miscellaneous mental health disorders (8 sources) Primary insomnia; Translations: [Primary insomnia] Chronic Nausea and vomiting (13 sources) Nausea and vomiting; Translations: [Nausea with vomiting, unspecified] 01-19-2022 Episodic Noninfectious gastroenteritis (13 sources) Gastroenteritis; Translations: [Noninfective gastroenteritis and colitis, unspecified] 11-23-2020 Episodic Nonspecific chest pain (10 sources) Tight chest; Translations: [Other chest pain] 04-19-2023 Episodic Osteoarthritis (13 sources) Osteoarthritis; Translations: [Unspecified osteoarthritis, unspecified site] 11-22-2020 Chronic Osteoporosis (20 sources) Senile osteoporosis; Translations: [Age-related osteoporosis without current pathological fracture] Onset: 0 09-04-2022 Chronic Other circulatory disease (20 sources) 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; Translations: [Arterial fibromuscular dysplasia] Onset: 2 Chronic Other circulatory disease (14 sources) 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 dysplasia of wall of artery; Translations: [Arterial fibromuscular dysplasia] 03-15-2023 Chronic Comment on above: CTA- images reviewed , irregular contour of distal ICA, R>L, no significant stenosis Other circulatory disease (10 sources) Arterial fibromuscular dysplasia; Translations: [Other specified disorders of arteries and arterioles] Onset: 4 03-15-2023 Chronic Other circulatory disease (9 sources) Low blood pressure; Translations: [Hypotension, unspecified] 04-27-2023 Episodic Other circulatory disease (1 source) Hypotension, unspecified; Translations: [Hypotension, unspecified] 04-27-2023 Episodic Other ear and sense organ disorders (2 sources) Sensorineural hearing loss, bilateral; Translations: [Sensorineural hearing loss, bilateral] Onset: 4 12-04-2023 Chronic Other ear and sense organ disorders (1 source) Sensorineural hearing loss, bilateral; Translations: [Sensorineural hearing loss, bilateral] Onset: 4 Chronic Other ear and sense organ disorders (2 sources) Otalgia, right ear; Translations: [Otalgia, unspecified] Episodic Other ear and sense organ disorders (2 sources) Sudden hearing loss; Translations: [Sudden idiopathic hearing loss, left ear] 12-04-2023 Episodic Other ear and sense organ disorders (2 sources) Sudden idiopathic hearing loss, left ear; Translations: [Sudden idiopathic hearing loss, left ear] Onset: 4 Episodic Other gastrointestinal disorders (16 sources) Diarrhea; Translations: [Diarrhea, unspecified] 11-23-2020 Episodic Other infections; including parasitic (13 sources) H/O: colitis; Translations: [Personal history of other infectious and parasitic diseases] 11-22-2020 Episodic Other injuries and conditions due to external causes (1 source) Hematoma; Translations: [Other injury of unspecified body region, initial encounter] 04-28-2024 Episodic Other lower respiratory disease (3 sources) Cough; Translations: [Acute cough] Episodic Other nutritional; endocrine; and metabolic disorders (20 sources) Intolerance to lactose; Translations: [Lactose intolerance, unspecified] Onset: 7 07-21-2017 Chronic Other nutritional; endocrine; and metabolic disorders (1 source) Hypervitaminosis D; Translations: [Hypervitaminosis D] 08-08-2024 Chronic Other nutritional; endocrine; and metabolic disorders (1 source) Hypervitaminosis D; Translations: [High vitamin D level] Onset: 5 Chronic Other upper respiratory disease (20 sources) Allergic rhinitis; Translations: [Allergic rhinitis, unspecified] Onset: 7 07-21-2017 Chronic Other upper respiratory disease (1 source) Seasonal allergic rhinitis; Translations: [Other seasonal allergic rhinitis] Chronic Other upper respiratory disease (2 sources) Nasal sinus problem; Translations: [Other specified disorders of nose and nasal sinuses] Episodic Other upper respiratory disease (1 source) Nasal congestion; Translations: [Nasal congestion] 08-03-2023 Episodic Other upper respiratory infections (3 sources) Bacterial sinusitis; Translations: [Chronic sinusitis, unspecified] Onset: 5 Chronic Otitis media and related conditions (7 sources) Acute non-suppurative otitis media - serous; Translations: [Acute serous otitis media, right ear] Onset: 4 Episodic Spondylosis; intervertebral disc disorders; other back problems (20 sources) Thoracic and lumbosacral neuritis; Translations: [Thoracic or lumbosacral neuritis or radiculitis, unspecified] Onset: 9 07-21-2017 Episodic Syncope (20 sources) Syncope; Translations: [Syncope and collapse] 11-22-2020 Episodic Unclassified (1 source) Temporal pain; Translations: [Temporal pain] Onset: Viral infection (20 sources) Recurrent herpes simplex labialis; Translations: [Herpesviral vesicular dermatitis] Onset: 0 07-21-2017 Episodic Past or Other Problems Problem Classification Problem Date Documented Da te Episodic/Chronic Abdominal pain (1 source) Left lower quadrant pain; Translations: [Left lower quadrant pain] Onset: 01-30-2025 Episodic Administrative/social admission (20 sources) Advance directive discussed with patient; Translations: [Other specified counseling] Onset: 07-26-2022 Episodic Allergic reactions (20 sources) Actinic cheilitis; Translations: [Other specified acute skin changes due to ultraviolet radiation] Onset: 12-03-2011 Resolved: 04-25-2012 04-25-2012 Episodic Diabetes mellitus without complication (20 sources) High hemoglobin A1c level; Translations: [Other abnormal glucose] Onset: 05-14-2019 06-11-2019 Episodic Diseases of mouth; excluding dental (20 sources) Cheilitis; Translations: [Diseases of lips] Onset: 12-03-2011 07-21-2017 Episodic Mycoses (20 sources) Cheilitis caused by Carolina species; Translations: [Candidal cheilitis] Onset: 12-03-2011 07-21-2017 Episodic Other aftercare (20 sources) Patient encounter status; Translations: [Other fdc (current) drug therapy] Onset: 07-21-2017 07-06-2021 Episodic Other bone disease and musculoskeletal deformities (14 sources) Osteopenia; Translations: [Other specified disorders of bone density and structure, unspecified site] Onset: 11-30-2009 07-21-2017 Episodic Other gastrointestinal disorders (6 sources) Loose stool; Translations: [Other fecal abnormalities] Onset: 07-10-2019 07-10-2019 Episodic Other gastrointestinal disorders (2 sources) Diarrhea, unspecified; Translations: [Diarrhea] Onset: 02-13-2025 05-01-2023 Episodic Other infections; including parasitic (20 sources) History of Clostridium difficile intestinal infection; Translations: [Personal history of other infectious and parasitic diseases] Onset: 11-20-2023 11-20-2023 Episodic Other infections; including parasitic (1 source) Personal history of other infectious and parasitic diseases; Translations: [History of Clostridium difficile colitis] Onset: 11-20-2023 Episodic Other inflammatory condition of skin (20 sources) Itching of skin; Translations: [Pruritus, unspecified] Onset: 12-03-2011 07-21-2017 Episodic Other inflammatory condition of skin (20 sources) Pruritus, unspecified; Translations: [Unspecified pruritic disorder] Onset: 12-03-2011 07-21-2017 Episodic Other inflammatory condition of skin (20 sources) Lichen planus; Translations: [Lichen planus, unspecified] Onset: 12-03-2011 Resolved: 04-25-2012 04-25-2012 Episodic Other nutritional; endocrine; and metabolic disorders (6 sources) Unintentional weight loss; Translations: [Abnormal weight loss] Onset: 07-10-2019 07-10-2019 Episodic Other screening for suspected conditions (not mental disorders or infectious disease) (20 sources) Catecholamine level - finding; Translations: [Other specified abnormal findings of blood chemistry] Onset: 01-27-2018 05-08-2018 Episodic Other skin disorders (20 sources) Seborrheic keratosis; Translations: [Other seborrheic keratosis] Onset: 12-03-2011 Resolved: 04-25-2012 04-25-2012 Episodic Other upper respiratory infections (10 sources) Sore throat symptom; Translations: [Acute pharyngitis, unspecified] Onset: 09-30-2024 Episodic Residual codes; unclassified (20 sources) Insomnia; Translations: [Insomnia, unspecified] Onset: 11-29-2016 07-21-2017 Episodic Residual codes; unclassified (13 sources) History of colonoscopy; Translations: [Other specified postprocedural states] Onset: 10-15-2006 11-22-2020 Episodic Residual codes; unclassified (1 source) Insomnia, unspecified; Translations: [Insomnia, unspecified type] Onset: 07-21-2017 Episodic Results Test Name Value Interpretation Reference Range Facility /[facility] 05-20-2025 /[facility] [address] [place] [address] OFFICE VISIT Date of Service: 05/20/25 MR#: [id number] Acct: [id number] Name: LAURENCE KOROMA Rep #: [id number] : 1950 Provider: ELVIS Raza Age/Sex: 74/F [place] [facility] Status: Signed Intake Vital Signs 01/26/25 07:14 05/20/25 13:28 Height 5 ft Weight: 99 lb BP 142/63 H Blood Pressure Location Rt brachial Position Sitting Respiration 16 Pulse 85 Pulse Source Monitor Temp 98 F Temp Source Temporal Pulse Oximetry (%) 97 Oxygen Delivery Method room air Intake Visit Reasons: Pain in Head Chief Complaint: hypotension, colitis Is patient in pain?: Yes Pain scale (1-10): 5 Allergies ragweed pollen Allergy (Intermediate, Verified 05/20/25 13:28) Shortness of breath Sulfa (Sulfonamide Antibiotics) Allergy (Intermediate, Verified 05/20/25 13:28) Hives azithromycin (From Zithromax Z-Jael) Adverse Reaction (Verified 05/20/25 13:28) Nausea cat dander (cats) Adverse Reaction (Verified 05/20/25 13:28) Other Medications ???Medication ???Instructions ???Recorded ???Confirmed ???Type multivitamin 1 ea PO DAILY supplement 10/11/15 05/20/25 History hydrochlorothiazide 12.5 mg capsule 12.5 mg PO QDAY blood pressure 02/14/18 05/20/25 History calcium carbonate 600 mg PO BID supplement 03/15/23 05/20/25 History alendronate 70 mg tablet 70 mg PO QWEEK bones 04/18/2304/08 History lisinopril 40 mg tablet 40 mg PO DAILY blood pressure 03/0605/20/25 History loratadine 10 mg tablet (Claritin) 10 mg PO DAILY allergies 3 05/20/25 History acyclovir 800 mg tablet 800 mg PO DAILY PRN FEVER BLISTER 07/11/23 05/20/25 History aspirin 81 mg chewable tablet 1 tab PO DAILY 11/27/23 05/20/25 H istory potassium chloride 8 mEq 8 meq PO DAILY 11/27/23 05/20/25 H istory capsule,extended release fluticasone propionate 50 2 spray intranasal BID PRN 5 05/20/25 History mcg/actuation nasal spray,suspension Is last menstrual period known: No Post menopausal: Yes Patient : No Have you fallen in the past year?: No PFSH Medical History Diverticulitis EVELYN (acute kidney injury) Hypotension Near syncope Aortic insufficiency Insomnia LALO (generalized anxiety disorder) Elevated plasma metanephrines Osteoporosis Essential hypertension Dehydration Diarrhea Sleep apnea Fatigue Weight loss Nausea Hemorrhoid History of Clostridium difficile colitis Osteoarthritis Chronic back pain Syncope Gastroenteritis Surgical History History of tonsillectomy History of colonoscopy Family History Mother Hypertension Father Heart disease Cancer skin cancer Grandmother Heart disease CVA (cerebral vascular accident) Social History Smoking Status: Never smoker alcohol intake: never substance use type: does not use HPI HPI HPI: LAURENCE KOROMA, is a 74 F who presents to the office today with primary complaint of a right sided headache. She has followed with our office for surveillance of her known FMD; to this point, imaging has shown stable disease with carotid duplex 04/2025 showing <50% R ICA stenosis and renal artery duplex 05/2025 showing no stenosis. She shares that the week of 04/27/25 she developed this right-sided headache and it has been persistent since then. Initially, she reports the pain was rather significant but has abated slightly. She describes it as feeling primarily like a pressure, this is present primarily in the R temporal region but does extend behind her eye, to the top of her head and occipital region, onto her cheeks, down her jaw, and intermittently she notes pain/tightness in her neck and shoulder. She notes tenderness to palpation through these areas as well. She has tried tylenol, ibuprofen, heat, and ice with no measurable relief. She has not had any associated visual changes, weakness/numbness/parest hesias, dysarthria, vertigo. She saw her PCP regarding this last week and due to her history of chronic sinusitis was started on antibiotics for possible sinus infection to see if this offered benefit, she reports no associated congestion or other upper respiratory symptoms and has not seen improvement in her symptoms with antibiotics to this point. She notes her PCP plan was to trial course of steroids if antibiotics were not helpful in case of temporal arteritis. ROS General General: Yes fatigue; No weight change, appetite, colon cancer, breast cancer or weakness HEENT HEENT: No difficulty swallowing, eye injury, eye surgery, (more content not included)... Normal [facility] Renal Artery Duplex Ultrasou ndon 05-15-2025 Renal Artery Duplex Ultrasound [facility] [address] [place] [address] Renal Artery Duplex Ultrasound 05/15/25 0856 MR#: [id number] Acct: [id number] Name: LAURENCE KOROMA Rep #: [id number] : 1950 74 From: Alexei Wells MD Attending Dr: ELVIS Raza Status: REG CLI Ordering Dr: Deb Cheung Date: 05/15/25 Location: [facility] Sex: F C Admitted: Reason For Study Reason For Study: FMD Right Renal Artery Left Renal Artery Right renal artery ostium 94.8/14.5 Left renal artery ostium 97.9/15.7 RSV/EDV. PSV/EDV. Right renal artery proximal 154.4/24.9 Left renal artery proximal PSV/EDV PSV/EDV. 119.8/23 . Right renal artery mid 115.6/24.9 PSV/EDV. Left renal artery mid 114.3/21.2 Right renal artery distal 92.4/23 PSV/EDV. PSV/EDV . Right RAR 2.05. Left renal artery distal 71.7/17.8 Right Renal Parenchyma PSV/EDV. Upper Pole Medula 46.2/17 PSV/EDV. Left RAR 1.59. Right upper pole medulla EDR 0.4 . Left Renal Parenchyma Right upper pole medulla R.I. 0.63 . Left upper pole medulla 36.6/8.4 Upper [place] Cortx 24.3/6 PSV/EDV. PSV/EDV . Right upper pole cortex EDR 0.2 . Left upper pole medulla EDR 0.77 . Right upper pole cortex R.I. 0.75 . Left upper pole medulla R.I. 0.2 . Right lower Pole medulla 33.9/6.4 UP Cortex 23.9/7.5 PSV/EDV. PSV/EDV . Left upper pole cortex EDR 0.3 . Right lower pole medulla EDR 0.2 . Left upper pole cortex R.I. 0.69 . Right lower pole medulla R.I. 0.81 . Left lower Pole medulla 40.3 PSV/EDV . Lower Pole Cortex 20.1/4.2 PSV/EDV. Left lower pole medulla EDR 0.2 . Right lower pole cortex EDR 0.2 . Left lower pole medulla R.I. 0.79 . Right lower pole cortex R.I. 0.79 . Lower Pole Cortx 25.7/7.5 PSV/EDV. Right Renal Hilar Left lower pole cortex EDR 0.3 . Right Hilar avg 54.4/9.7 PSV/EDV. Left lower pole cortex R.I. 0.71 . Right hilar acceleration time 70 m/sec. Left Renal Hilar Right Renal Dimensions LT Hilar avg 51.2/13.9 PSV/EDV . Right kidney size 9.32 cm . Left Renal Dimensions Right cortical dimension 0.85 cm . Left kidney size 10.11 cm . Left cortical dimension 1.45 cm . Aorta Proximal abdominal aorta 1.72 x 1.79 cm . Proximal abdominal aorta peak systolic velocity is 75.4 cm/sec . Distal abdominal aorta 1.23 x 1.24 cm . Distal abdominal aorta peak systolic velocity is 80.9 cm/sec . VL/Renal Artery Duplex Ultrasound Interpretation Summary Right renal artery patent with normal velocities and no evidence of stenosis. Left renal artery patent with normal velocities and no evidence of stenosis. Right renal vein patent. Left renal vein patent. Right kidney normal in size. Left kidney normal in size Ordering Physician: Deb Cheung Referring Physician: Fabian Mcmullen Performed By: Amirah Knight T 05/18/25951 Date Alexei Wells MD CC: ELVIS Raza; Dr. Fabian Mcmullen MD Date Dictated: 05/15/25855 Date Transcribed: 05/18/25951 Presser Hand: Signed [facility] 05-13-2025 [facility] Telephone (FAMPWS) -------- LAURENCE KOROMA ([id number]) 1950 F Date Time Provider Department 05/13/25 [facility] During your visit today, we recorded the following information about you: Geri Gore LPN 05/13/2025 8:58 AM Signed Patient calling asking if she could have some sort of scan done to make sure it is sinus issues and not a tumor. She said her mosque pain is not any better at all, she has tender spot on top of her head when touched. Please advise Fabian Mcmullen MD 05/13/2025 9:26 AM Signed Let the patient know that based on my exam in the office and documentation insurance is not going to cover a head CT at this time. Please complete the antibiotic first. If pain not much better by next Wed let me know and then I would proceed with the steroid Tx we had discussed. Elmira Amos MA 05/13/2025 12:17 PM Signed Call to pt and notified her of message below from Provider. Pt will update if not improving. Asking what steroid treatment would do. Advised pt this can help reduce inflammation as possible dx of sinusitis. Pt understood, will take it one day at a time. Elmira Amos MA Allergies As of Date: 05/13/2025 Noted Allergy Reaction SULFA (SULFONAMIDE ANTIBIOTICS) 05/15/2007 2 - Rash AUGMENTIN (AMOXICILLIN-POT CLAVUL*05/15/2007 5 - Intolerance Comments: Patient had diarrhea and possibly a mild skin rash with prior use of Augmentin. She has subsequently taken amoxicillin and tolerated this without adverse reaction. CATS 12/24/2009 5 - Intolerance ECHINACEA 02/22/2016 7 - Swelling POLLEN 12/24/2009 5 - Intolerance RAGWEED 12/24/2009 5 - Intolerance Date Reviewed: 05/11/2025 Reviewed by: Fabian Mcmullen MD - Fully Assessed Reason for Visit: Patient Question [1477] Prescriptions as of 05/13/2025 - Potassium Chloride (KLOR-CON 8) 8 mEq tablet Take 1 tablet by mouth two times a day. - cefADROxil (DURICEF) 500 mg capsule Take 1 capsule by mouth two times a day. - vancomycin (VANCOCIN) 125 mg capsule Take 1 capsule by mouth once daily for 10 days. - psyllium husk (METAMUCIL ORAL) Take by mouth as directed. - zolpidem (AMBIEN) 10 mg Take 1 tablet by mouth at bedtime as needed for up to 180 days. FOR INSOMNIA - alendronate (FOSAMAX) 70 mg tablet Take 1 tablet by mouth one time a week. In AM with cup of water on empty stomach. Nothing else by mouth and stay upright for 30 min. - fluticasone (FLONASE) 50 mcg/actuation nasal spray Use 2 sprays in each nostril once daily. Rinse mouth after use. - lisinopril (ZESTRIL) 40 mg tablet Take 0.5 tablets by mouth two times a day. - hydroCHLOROthiazide 12.5 mg capsule Take 1 capsule by mouth once daily. - multivit,iron,minerals/l utein (CENTRUM SILVER ULTRA WOMEN'S ORAL) Take by mouth. Take one tablet daily - L.acid/L.casei/B.bif/B.l on/FOS (PROBIOTIC BLEND ORAL) Take by mouth two times a day. refrigerated - acyclovir (ZOVIRAX) 800 mg tablet 1 tablet three times daily. - aspirin, enteric coated (ASPIRIN, ENTERIC COATED) 81 mg EC tablet Take 1 tablet by mouth once daily. - loratadine (CLARITIN) 10 mg tablet Take 1 tablet by mouth once daily. 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] 11/30/2009 Cheilitis: lower lip: along jennifer to lip m*12/03/2011 Lichen Planus: lower lip [L43.9] 12/03/2011 04/25/2012 Candidal cheilitis [B37.83] 12/03/2011 Actinic cheilitis [L56.8] 12/03/2011 04/25/2012 Pruritus [L29.9] 12/03/2011 Seborrheic Keratosis [L82.1] 12/03/2011 04/25/2012 Essential hypertension, benign [I10] 06/13/2012 Chronic right-sided low back pain [M54.50, G89.*10/03/2016 Insomnia [G47.00] 11/29/2016 Lactose intolerance [E73.9] 11/29/2016 Encounter for gynecological examination without*07/21/2017 Encounter for screening mammogram for breast ca*07/21/2017 Encounter for Medicare annual wellness exam [Z0*07/21/2017 Chronic allergic rhinitis [J30.9] 07/21/2017 Elevated plasma metanephrines [R79.89] 01/27/2018 Screening for colon cancer [Z12.11] 11/13/2018 Elevated hemoglobin A1c [R73.09] 05/14/2019 LALO (generalized anxiety disorder) [F41.1] 12/29/2020 Medication management [Z79.899] 07/06/2021 Advance directive discussed with patient [Z71.8*07/26/2022 Mild AI (aortic insufficiency) [I35.1] 07/27/2022 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 dysplasia of both carotid arterie*08/03/2022 Diverticulosis [K57.90] 04/23/2023 History of Clostridium difficile colitis [Z86.1*11/20/2023 Encounter Status:Closed by ELMIRA AMOS on 05/13/25 Normal [facility] CBC W Auto Differential pane l (Bld)on 05-11-2025 Basophils (Bld) [#/Vol] 0.05 10*3/uL [facility] Basophils/100 WBC (Bld) 0.6 % C [facility] Differential cell count method Nom (Bld) Auto [facility] Eosinophils (Bld) [#/Vol] 0.17 10*3/uL [facility] Eosinophils/100 WBC (Bld) 2.1 % [facility] Erythrocyte distribution width (RBC) [Ratio] 14.6 % 11.5 - 15.0 % [facility] Hematocrit (Bld) [Volume fraction] 33.7 % Low 36.0 - 46.0 % [facility] Hemoglobin (Bld) [Mass/Vol] 10.8 g/dL Low 11.5 - 15.5 g/dL [facility] Immature granulocytes (Bld) [#/Vol] [facility] Immature granulocytes/100 WBC (Bld) 0.2 % [facility] Interpretation and review of laboratory results Abnormal [facility] Lymphocytes (Bld) [#/Vol] 2.66 10*3/uL [facility] Lymphocytes/100 WBC (Bld) 32.2 % [facility] MCH (RBC) [Entitic mass] 29.4 pg 26. 0 - 34.0 pg [facility] MCHC (RBC) [Mass/Vol] 32 g/dL 30.5 - 36.0 g/dL [facility] MCV (RBC) [Entitic vol] 91.8 fL 80.0 - 100.0 fL [facility] Monocytes (Bld) [#/Vol] 0.73 10*3/uL [facility] Monocytes/100 WBC (Bld) 8.8 % C [facility] Neutrophils (Bld) [#/Vol] 4.64 10*3/uL [facility] Neutrophils/100 WBC (Bld) 56.1 % [facility] Nucleated RBC (Bld) [#/Vol] [facility] Nucleated RBC/100 WBC (Bld) [Ratio] 0 % /100 WBC [facility] Platelet mean volume (Bld) [Entitic vol] 10.5 fL 9.0 - 12.7 fL [facility] Platelets (Bld) [#/Vol] 268 10*3/uL [facility] RBC (Bld) [#/Vol] 3.67 10*6/uL Low 3.90 - 5.20 m/uL [facility] WBC (Bld) [#/Vol] 8.27 10*3/uL [facility] Basophils (Bld) [#/Vol] 0.05 10*3/uL Normal <0.11 [facility] Comment on above: Order Comment: Speci men Type: BLOOD SPECIMENOrdering Facility: [facility] Address: [address] [place] [address] Performed By: #### 5 7021-8, 4536-7 ####[facility] LABCLIA [id number] [place] [address] [place] Basophils/100 WBC (Bld) 0.6 % Normal C [facility] Comment on above: Order Comment: Speci men Type: BLOOD SPECIMENOrdering Facility: [facility] Address: [address] [place] [address] Performed By: #### 5 7021-8, 4536-7 ####[facility] LABCLIA [id number] [place] [address] [place] Differential cell count method Nom (Bld) Auto Normal [facility] Comment on above: Order Comment: Speci men Type: BLOOD SPECIMENOrdering Facility: [facility] Address: [address] [place] [address] Performed By: #### 5 7021-8, 4536-7 ####[facility] LABCLIA [id number] [place] [address] [place] Eosinophils (Bld) [#/Vol] 0.17 10*3/uL Normal <0.46 [facility] Comment on above: Order Comment: Speci men Type: BLOOD SPECIMENOrdering Facility: [facility] Address: [address] [place] [address] Performed By: #### 5 7021-8, 4536-7 ####[facility] LABCLIA [id number] [place] [address] [place] Eosinophils/100 WBC (Bld) 2.1 % Normal [facility] Comment on above: Order Comment: Speci men Type: BLOOD SPECIMENOrdering Facility: [facility] Address: [address] [place] [address] Performed By: #### 5 7021-8, 4537-7 ####[facility] LABIA [id number] [place] [address] [place] Erythrocyte distribution width (RBC) [Ratio] 14.6 % Normal 11.5-15.0 [facility] Comment on above: Order Comment: Speci men Type: BLOOD SPECIMENOrdering Facility: [facility] Address: [address] [place] [address] Performed By: #### 5 7021-8, 4537-7 ####[facility] LABIA [id number] [place] [address] [place] Hematocrit (Bld) [Volume fraction] 33.7 % Low 36.0-46.0 [facility] Comment on above: Order Comment: Speci men Type: BLOOD SPECIMENOrdering Facility: [facility] Address: [address] [place] [address] Performed By: #### 5 7021-8, 4537-7 ####[facility] LABIA [id number] [place] [address] [place] Hemoglobin (Bld) [Mass/Vol] 10.8 g/dL Low 11.5-15.5 [facility] Comment on above: Order Comment: Speci men Type: BLOOD SPECIMENOrdering Facility: [facility] Address: [address] [place] [address] Performed By: #### 5 7021-8, 4537-7 ####[facility] LABIA [id number] [place] [address] [place] Immature granulocytes (Bld) [#/Vol] 10*3/uL Normal <0.10 [facility] Comment on above: Order Comment: Speci men Type: BLOOD SPECIMENOrdering Facility: [facility] Address: [address] [place] [address] Performed By: #### 5 7021-8, 7 ####[facility] LABCLIA [id number] [facility] [place] [address] [place] Immature granulocytes/100 WBC (Bld) 0.2 % Normal [facility] Comment on above: Order Comment: Speci men Type: BLOOD SPECIMENOrdering Facility: [facility] Address: [address] [place] [address] Performed By: #### 5 7021-8, 7 ####[facility] LABCLIA [id number] [place] [address] [place] Lymphocytes (Bld) [#/Vol] 2.66 10*3/uL Normal 1.00-4.0 0 [facility] Comment on above: Order Comment: Speci men Type: BLOOD SPECIMENOrdering Facility: [facility] Address: [address] [place] [address] Performed By: #### 5 7021-8, 7 ####[facility] LABCLIA [id number] [place] [address] [place] Lymphocytes/100 WBC (Bld) 32.2 % Normal [facility] Comment on above: Order Comment: Speci men Type: BLOOD SPECIMENOrdering Facility: [facility] Address: [address] [place] [address] Performed By: #### 5 7021-8, 7 ####[facility] LABCLIA [id number] [place] [address] [place] MCH (RBC) [Entitic mass] 29.4 pg Normal 26.0-34.0 [facility] Comment on above: Order Comment: Speci men Type: BLOOD SPECIMENOrdering Facility: [facility] Address: [address] [place] [address] Performed By: #### 5 7021-8, 4536-7 ####[facility] LABIA [id number] [place] [address] [place] MCHC (RBC) [Mass/Vol] 32.0 g/dL Normal 30.5-36.0 [facility] Comment on above: Order Comment: Speci men Type: BLOOD SPECIMENOrdering Facility: [facility] Address: [address] [place] [address] Performed By: #### 5 7021-8, 4536-7 ####[facility] LABIA [id number] [place] [address] [place] MCV (RBC) [Entitic vol] 91.8 fL Normal 80.0-100.0 C [facility] Comment on above: Order Comment: Speci men Type: BLOOD SPECIMENOrdering Facility: [facility] Address: [address] [place] [address] Performed By: #### 5 7021-8, 4536-7 ####[facility] LABIA [id number] [place] [address] [place] Monocytes (Bld) [#/Vol] 0.73 10*3/uL Normal <0.87 [facility] Comment on above: Order Comment: Speci men Type: BLOOD SPECIMENOrdering Facility: [facility] Address: [address] [place] [address] Performed By: #### 5 7021-8, 4536-7 ####[facility] LABIA [id number] [place] [address] [place] Monocytes/100 WBC (Bld) 8.8 % Normal C [facility] Comment on above: Order Comment: Speci men Type: BLOOD SPECIMENOrdering Facility: [facility] Address: [address] [place] [address] Performed By: #### 5 7021-8, 4536-7 ####[facility] LABCLIA [id number] [place] [address] [place] Neutrophils (Bld) [#/Vol] 4.64 10*3/uL Normal 1.45-7.5 0 [facility] Comment on above: Order Comment: Speci men Type: BLOOD SPECIMENOrdering Facility: [facility] Address: [address] [place] [address] Performed By: #### 5 7021-8, 4536-7 ####[facility] LABCLIA [id number] [place] [address] [place] Neutrophils/100 WBC (Bld) 56.1 % Normal [facility] Comment on above: Order Comment: Speci men Type: BLOOD SPECIMENOrdering Facility: [facility] Address: [address] [place] [address] Performed By: #### 5 7021-8, 7 ####[facility] LABCLIA [id number] [place] [address] [place] Nucleated RBC (Bld) [#/Vol] 10*3/uL Normal <0.01 [facility] Comment on above: Order Comment: Speci men Type: BLOOD SPECIMENOrdering Facility: [facility] Address: [address] [place] [address] Performed By: #### 5 7021-8, 7 ####[facility] LABCLIA [id number] [place] [address] [place] Nucleated RBC/100 WBC (Bld) [Ratio] 0.0 /100 WBC Normal [facility] Comment on above: Order Comment: Speci men Type: BLOOD SPECIMENOrdering Facility: [facility] Address: [address] [place] [address] Performed By: #### 5 7021-8, 7-7 ####[facility] LABCLIA [id number] [place] [address] [place] Platelet mean volume (Bld) [Entitic vol] 10.5 fL Normal 9.0-12.7 [facility] Comment on above: Order Comment: Speci men Type: BLOOD SPECIMENOrdering Facility: [facility] Address: [address] [place] [address] Performed By: #### 5 7021-8, 4537-7 ####[facility] LABCLIA [id number] [place] [address] [place] Platelets (Bld) [#/Vol] 268 10*3/uL Normal 150-400 [facility] Comment on above: Order Comment: Speci men Type: BLOOD SPECIMENOrdering Facility: [facility] Address: [address] [place] [address] Performed By: #### 5 7021-8, 4537-7 ####[facility] LABCLIA [id number] [place] [address] [place] RBC (Bld) [#/Vol] 3.67 10*6/uL Low 3.90-5.[address] [facility] Comment on above: Order Comment: Speci men Type: BLOOD SPECIMENOrdering Facility: [facility] Address: [address] [place] [address] Performed By: #### 5 7021-8, 4537-7 ####[facility] LABCLIA [id number] [place] [address] [place] WBC (Bld) [#/Vol] 8.27 10*3/uL Normal 3.70-11.[address] [facility] Comment on above: Order Comment: Speci men Type: BLOOD SPECIMENOrdering Facility: [facility] Address: [address] [place] [address] Performed By: #### 5 7021-8, 4537-7 ####[facility] LABCLIA [id number] [place] [address] [place] CNOVon 05-11-2025 CNOV Office Visit (FAMPWS ) -------- LAURENCE KOROMA ([id number]) 1950 F Date Time Provider Department 05/11/25 1:40 PM [facility] During your visit today, we recorded the following information about you: Pulse Respiration Blood pressure Weight 84/minute 16/minute 126/60 44.5 kg Fabian Mcmullen MD 05/11/2025 11:26 PM Signed Chief Complaint Patient presents with: Pain: Right mosque HPI Laurence Koroma is a 74 year old female who presents here today for an acute visit. Right jaw, mosque pain, and behind right eye for 7-10 days over the past 7-10 days. No sinus symptoms. Lexie Koroma is a 74-year-old female with a history of C. diff, presenting with right-sided cephalalgia and right eye pain, as well as acute onset of coccygeal pain. Lexie reports an onset of right-sided cephalalgia beginning the week of 04/27/2023. The pain is localized to the right temporal area and extends to the right eye and jaw, described as a constant ache. She has tried ibuprofen and Tylenol without relief and has also used ice and heat packs, which provided no significant improvement. She suspects the pain may be related to TMJ or sinus issues, noting tenderness in the right maxillary sinus area. She denies any recent head trauma, facial drooping, changes in vision, or new hearing loss. She also denies nausea, emesis, diarrhea, dysphagia, or drooling. She has a history of hearing loss in the right ear following a COVID-19 infection, which resolved after approximately 3 months. Additionally, Lexie reports acute onset of coccygeal pain upon waking on a recent Sunday morning, described as a severe ache that initially impaired her ability to walk. She denies any recent falls or trauma to the area and notes that the pain improves with ice application. She has not been sitting on hard surfaces for extended periods and has been able to ambulate more comfortably since the initial onset. She denies any known trauma to the area. She also reports a history of C. diff and is currently taking Florajen probiotics, 2 capsules daily, as recommended by a previous ER visit in January. She is concerned about the potential for recurrence of C. diff with antibiotic use. Past medical history, appointments, medications, allergies reviewed. [...] benign 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 dysplasia of both carotid arteries 08/03/2022 US 07/2022 LALO (generalized anxiety disorder) 12/29/2020 History of Clostridium difficile colitis 11/20/2023 Due to antibiotics. May need Vanco at same time as antibiotics to prevent recurrence. Would do Vanco 125 mg a day while on an antibiotic. 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 zolpidem (AMBIEN) 10 mg Take 1 tablet by mouth at bedtime as needed for up to 180 days. FOR INSOMNIA alendronate (FOSAMAX) 70 mg tablet Take 1 tablet by (more content not included)... Normal [facility] CRP SerPl-ncon 05-11-2025 CRP [Mass/Vol] mg/L Normal <0.9 [facility] Comment on above: Order Comment: Speci men Type: BLOOD SPECIMENOrdering Facility: [facility] Address: [address] [place] [address] Performed By: #### 1 988-5 ####[facility] LABCLIA [id number] [place] [address] [place] ESR Westergren method (Bld) [Velocity]on 05-11-2025 ESR (Bld) [Velocity] 26 mm/h High [facility] Interpretation and review of laboratory results Abnormal [facility] ESR (Bld) [Velocity] 26 mm/h High 0-20 [facility] Comment on above: Order Comment: Grazyna anton Type: BLOOD SPECIMENOrdering Facility: [facility] Address: [address] [place] [address] Performed By: #### 5 7021-8, 4537-7 ####[facility] LABIA [id number] [place] [address] [place] Duplex ultrasound of carotid artery reportOrdered By: Alexei Wells on 04-27-2025 Study report [facility] [address] [place] [address] Carotid Duplex Ultrasound 04/24/25 1116 MR#: [id number] Acct: [id number] Name: LAURENCE KOROMA Rep #:[id number] : 1950 74 From: Alexei Chase Attending Dr: ELVIS Raza Stat us: REG CLI Ordering Dr: Deb Cheung Date: Location: [facility] Sex: F C Admitted: Reason For Study Reason For Study: Fibromusscular dysplasia Rt. Velocities/BP Lt. Velocities/BP Prox CCA 77.8/17.3 cm/sec. Prox CCA 79.5/16.8 cm/sec. Mid CCA 72.1/14.5 cm/sec. Mid CCA 80.6/17.9 cm/sec. Dist CCA 72.1/13.5 cm/sec. Dist CCA 65.2/14.6 cm/sec. Prox ICA 35.5/15.4 cm/sec. Prox ICA 58.9/10.7 cm/sec. Mid ICA 86.3/26.7 cm/sec. Mid ICA 65.5/17.3 cm/sec. Dist ICA 115.6/27.9 cm/sec. Dist ICA 106.5/22.5 cm/sec. Rt. ICA/CCA = 1.60. Lt. ICA/CCA = 1.32. Prox ECA 84.4/6 cm/sec. Prox ECA 67.4/4.7 cm/sec. Rt. Vert. 59.7/13.5 cm/sec. Lt. Vert. 57.5/12.4 cm/sec. Right Extracranial There is intimal thickening but no significant atherosclerotic plaque noted in the right common carotid artery. There is heterogeneous, irregular atherosclerotic plaque noted in the right internal carotid artery. There is heterogeneous, irregular atherosclerotic plaque noted in the right external carotid artery. Antegrade flow is noted in the right vertebral artery. Left Extracranial There is intimal thickening but no significant atherosclerotic plaque noted in the left common carotid artery. There is intimal thickening but no significant atherosclerotic plaque noted in the left internal carotid artery. There is heterogeneous, irregular atherosclerotic plaque noted in the left external carotid artery. Antegrade flow is noted in the left vertebral artery. Procedure Carotid Duplex [id number]. This is a Carotid Duplex examination using B-mode, color flow and specral Doppler. Exam performed in department. VL/Carotid Duplex Ultrasound Interpretation Summary Mild (<50%) stenosis right extracranial internal carotid. Normal left extracranial internal carotid. Patent and antegrade vertebrals bilaterally. Ordering Physician: Deb Cheung Referring Physician: Fabian Mcmullen Performed By: Amirah Knight RVT 04/27/25 1230 Date _ Alexei Wells MD CC: ELVIS Raza; Dr. Fabian Mcmullen MD ~ Date Dictated: 04/24/25 1116 Date Transcribed: 04/27/25 1231 Presser Hand: Signed [facility] Work Phone: Carotid Duplex Ultrasoundon 04-24-2025 Carotid Duplex Ultrasound [facility] [address] [place] [address] Carotid Duplex Ultrasound 04/24/25 1116 MR#: [id number] Acct: [id number] Name: KOROMALAURENCE Kendal Rep #: [id number] : 1950 74 From: Alexei Wells MD Attending Dr: ELVIS Raza Status: REG CLI Ordering Dr: Deb Cheung Date: 04/24/25 Location: [facility] Sex: F C Admitted: Reason For Study Reason For Study: Fibromusscular dysplasia Rt. Velocities/BP Lt. Velocities/BP Prox CCA 77.8/17.3 cm/sec. Prox CCA 79.5/16.8 cm/sec. Mid CCA 72.1/14.5 cm/sec. Mid CCA 80.6/17.9 cm/sec. Dist CCA 72.1/13.5 cm/sec. Dist CCA 65.2/14.6 cm/sec. Prox ICA 35.5/15.4 cm/sec. Prox ICA 58.9/10.7 cm/sec. Mid ICA 86.3/26.7 cm/sec. Mid ICA 65.5/17.3 cm/sec. Dist ICA 115.6/27.9 cm/sec. Dist ICA 106.5/22.5 cm/sec. Rt. ICA/CCA = 1.60. Lt. ICA/CCA = 1.32. Prox ECA 84.4/6 cm/sec. Prox ECA 67.4/4.7 cm/sec. Rt. Vert. 59.7/13.5 cm/sec. Lt. Vert. 57.5/12.4 cm/sec. Right Extracranial There is intimal thickening but no significant atherosclerotic plaque noted in the right common carotid artery. There is heterogeneous, irregular atherosclerotic plaque noted in the right internal carotid artery. There is heterogeneous, irregular atherosclerotic plaque noted in the right external carotid artery. Antegrade flow is noted in the right vertebral artery. Left Extracranial There is intimal thickening but no significant atherosclerotic plaque noted in the left common carotid artery. There is intimal thickening but no significant atherosclerotic plaque noted in the left internal carotid artery. There is heterogeneous, irregular atherosclerotic plaque noted in the left external carotid artery. Antegrade flow is noted in the left vertebral artery. Procedure Carotid Duplex 27473. This is a Carotid Duplex examination using B-mode, color flow and specral Doppler. Exam performed in department. VL/Carotid Duplex Ultrasound Interpretation Summary Mild (<50%) stenosis right extracranial internal carotid. Normal left extracranial internal carotid. Patent and antegrade vertebrals bilaterally. Ordering Physician: Deb Cheung Referring Physician: Fabian Mcmullen Performed By: Amirah Knight RVT 04/27/25 1230 Date Alexei Wells MD CC: ELVIS Raza; Dr. Fabian Mcumllen MD Date Dictated: 04/24/25 1116 Date Transcribed: 04/27/25 1231 Presser Hand: Signed Normal [facility] MR/BMS.BVSon 04-15-2025 MR/BMS.BVS [facility] [address] [place] [address] OFFICE VISIT Date of Service: 04/15/25 MR#: [id number] Acct: [id number] Name: LAURENCE KOROMA Rep #: [id number] : 1950 Provider: Dr. Alexei Wells MD Age/Sex: 74/F Location: [facility] Status: Signed Intake Vital Signs 01/26/25 07:14 04/15/25 13:15 Height 5 ft Weight: 95 lb 8 oz BP 136/60 H Blood Pressure Location Lt brachial Position Sitting Respiration 16 Pulse 76 Pulse Source Monitor Temp 98.2 F Temp Source Temporal Pulse Oximetry (%) 99 Oxygen Delivery Method room air Intake Visit Reasons: 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 Dysplasia of carotid arteries Is patient in pain?: No Allergies ragweed pollen Allergy (Intermediate, Verified 04/15/25 13:16) Shortness of breath Sulfa (Sulfonamide Antibiotics) Allergy (Intermediate, Verified 04/15/25 13:16) Hives azithromycin (From Zithromax Z-Jael) Adverse Reaction (Verified 04/15/25 13:16) Nausea Medications ???Medication ???Instructions ???Recorded ???Confirmed ???Type multivitamin 1 ea PO DAILY supplement 10/11/15 04/15/25 History hydrochlorothiazide 12.5 mg capsule 12.5 mg PO QDAY blood pressure 02/14/18 04/15/25 History calcium carbonate 600 mg PO BID supplement 03/15/23 04/15/25 History alendronate 70 mg tablet 70 mg PO QWEEK bones 04/18/23 0712/09 History lisinopril 40 mg tablet 40 mg PO DAILY blood pressure 07/03/0604/15/25 History loratadine 10 mg tablet (Claritin) 10 mg PO DAILY allergies 3 04/15/25 History acyclovir 800 mg tablet 800 mg PO DAILY PRN FEVER BLISTER 07/11/23 04/15/25 History aspirin 81 mg chewable tablet 1 tab PO DAILY 11/27/23 04/15/25 H istory potassium chloride 8 mEq 8 meq PO DAILY 11/27/23 04/15/25 H istory capsule,extended release fluticasone propionate 50 2 spray intranasal BID PRN 5 04/15/25 History mcg/actuation nasal spray,suspension Is last menstrual period known: No Post menopausal: Yes Patient : No Have you fallen in the past year?: No PFSH Medical History Diverticulitis EVELYN (acute kidney injury) Hypotension Near syncope Aortic insufficiency Insomnia LALO (generalized anxiety disorder) Elevated plasma metanephrines Osteoporosis Essential hypertension Dehydration Diarrhea Sleep apnea Fatigue Weight loss Nausea Hemorrhoid History of Clostridium difficile colitis Osteoarthritis Chronic back pain Syncope Gastroenteritis Surgical History History of tonsillectomy History of colonoscopy Family History Mother Hypertension Father Heart disease Cancer skin cancer Grandmother Heart disease CVA (cerebral vascular accident) Social History Smoking Status: Never smoker alcohol intake: never substance use type: does not use HPI HPI HPI: LAURENCE KOROMA, is a 74 F who presents to the office today for follow up of known carotid FMD with CTA demonstrating R>L contour irregularity without stenosis. Duplex has correlates with CTA. Since last being seen she has denied episodes of numbness/weakness/vision loss/speech difficulty. She has hypertension that is well controlled. Taking ASA 81 daily. In the past she has had renal duplex and abdomen CT that did not reveal renal artery abnormalities that would indicate FMD presence. ROS General General: No weight change, appetite, fatigue, colon cancer, breast cancer or weakness HEENT HEENT: No difficulty swallowing, eye injury, eye surgery, swollen glands or hoarseness Endo Endocrine: No thyroid disease, diabetes mellitus, thyroid cancer, Hair loss, heat intolerance or cold intolerance Skin Skin: No rash or changing moles Musc Musculoskeletal: Yes arthritis and joint pain; No back problems, rheumatoid arthritis or gout Cardio Cardiovascular: Yes high blood pressure; No murmur, pacemaker, heart disease, atrial fibrillation, heart attack, heart stent, palpitations, shortness of breath with exertion or chest pain Psych Psychiatric: No depression, anxiety or hearing voices Resp Respiratory: No shortness of breath, No sleep apnea, No cough, No COPD, No asthma, No emphysema and No wheezing Gastro Gastrointestinal: No abdominal pain, No nausea or vomiting, No diarrhea, No constipation, No blood in stool, No acid reflux, No hemorrhoids, No ulcers, No gallbladder problem and No black,tarry stools Rasta Hematologic: No blood thinners, No blood disorders, No bleeding, No anemia and No blood clots Neuro Neurologic: No system reviewed and no additional complaints, except as documented (more content not included)... Normal [facility] 03-17-2025 [facility] Office Visit (FAMWS ) -------- LAURENCE KOROMA ([id number]) 1950 F Date Time Provider Department 03/17/25 12:00 PM [facility] During your visit today, we recorded the following information about you: Temperature Pulse Respiration Blood pressure 97.1 degrees 73/minute 16/minute 122/62 Weight 43.5 kg Constance Klein PA-C 03/17/2025 1:55 PM Signed Chief Complaint Patient presents with: Recheck: GI issues HPI Laurenceradames Koroma is a 74 year old female who presents here today for wellness visit. Saw Dr Quigley, taking 1tbs metamucil with 10oz and daily probiotic. Avoids greasy food. Still having soft stools, no blood or mucus in stool. Denies melena. Has been waking up to go to bathroom in the middle of the night for the past 6 months. Past medical history, appointments, medications, allergies reviewed. [...] benign 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 dysplasia of both carotid arteries 08/03/2022 US 07/2022 LALO (generalized anxiety disorder) 12/29/2020 History of Clostridium difficile colitis 11/20/2023 Due to antibiotics. May need Vanco at same time as antibiotics to prevent recurrence. Would do Vanco 125 mg a day while on an antibiotic. 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 zolpidem (AMBIEN) 10 mg Take 1 tablet by mouth at bedtime as needed for up to 180 days. FOR INSOMNIA alendronate (FOSAMAX) 70 mg tablet Take 1 tablet by mouth one time a week. In AM with cup of water on empty stomach. Nothing else by mouth and stay upright for 30 min. fluticasone (FLONASE) 50 mcg/actuation nasal spray Use 2 sprays in each nostril once daily. Rinse mouth after use. lisinopril (ZESTRIL) 40 mg tablet Take 0.5 tablets by mouth two times a day. hydroCHLOROthiazide 12.5 mg capsule Take 1 capsule by mouth once daily. Potassium Chloride (KLOR-CON 8) 8 mEq tablet Take 1 tablet by mouth two times a day. multivit,iron,minerals/l utein (CENTRUM SILVER ULTRA WOMEN'S ORAL) Take by mouth. Take one tablet daily L.acid/L.casei/B.bif/B.l on/FOS (PROBIOTIC BLEND ORAL) Take by mouth. acyclovir (ZOVIRAX) 800 mg tablet 1 tablet three times daily. aspirin, enteric coated (ASPIRIN, ENTERIC COATED) 81 mg EC tablet Take 1 tablet by mouth once daily. loratadine (CLARITIN) 10 mg tablet Take 1 tablet by mouth once daily. No current facility-administered medications on file prior to visit. Social History Social History Tobacco Use Smoking status: Never Smokeless tobacco: Never Vaping Use Vaping status: Never Used Substance Use Topics Alcohol use: No Drug use: No Review of Symptoms REVIEW OF SYSTEMS RESPIRATORY: Negative for cough,dyspnea or shortness of breath CARDIOVASCULAR: Negative for chest pain, leg swelling or palpitations GI: No nausea or vomiting EXAM: BP 122/62 (BP Site: Right Arm, BP Position: Sitting, BP Cuff Size: Re (more content not included)... Normal [facility] Urinalysis complete panel (U )on 03-17-2025 Bacteria LM.HPF (Urine sed) [#/Area] Negative Normal Negative [facility] Comment on above: Order Comment: Speci men Type: URINE SPECIMENOrdering Facility: [facility] Address: [address] [place] [address] Performed By: #### 2 4356-8 ####[facility] LABCLIA [id number] [place] [address] [place] Bilirubin Ql (U) Negative Normal Negative [facility] Comment on above: Order Comment: Speci men Type: URINE SPECIMENOrdering Facility: [facility] Address: [address] [place] [address] Performed By: #### 2 4356-8 ####[facility] LABCLIA [id number] [place] [address] [place] Clarity (Unsp spec) Clear Normal Clear [facility] Comment on above: Order Comment: Speci men Type: URINE SPECIMENOrdering Facility: [facility] Address: [address] [place] [address] Performed By: #### 2 4356-8 ####[facility] LABCLIA [id number] [place] [address] [place] [facility] Color (U) Yellow Normal Yellow [facility] Comment on above: Order Comment: Speci men Type: URINE SPECIMENOrdering Facility: [facility] Address: [address] [place] [address] Performed By: #### 2 4356-8 ####[facility] LABCLIA [id number] [place] [address] [place] Epithelial cells LM.HPF (Urine sed) [#/Area] None Seen Normal [facility] Comment on above: Order Comment: Speci men Type: URINE SPECIMENOrdering Facility: [facility] Address: [address] [place], [place] [id number] Performed By: #### 2 4356-8 ####[facility] LABCLIA [id number] [place] [id number] [place] Glucose Test strip (U) [Mass/Vol] Negative Normal Negative [facility] Comment on above: Order Comment: Speci men Type: URINE SPECIMENOrdering Facility: [facility] Address: [address] [place] [address] Performed By: #### 2 4356-8 ####[facility] LABCLIA [id number] [place] [address] [place] Hemoglobin Ql (U) Negative Normal Negative [facility] Comment on above: Order Comment: Speci men Type: URINE SPECIMENOrdering Facility: [facility] Address: [address] [place] [address] Performed By: #### 2 4356-8 ####[facility] LABCLIA [id number] [place] [address] [place] Hyaline casts (Urine sed) [#/Area] 0 /[LPF] Normal 0 /LPF [facility] Comment on above: Order Comment: Speci men Type: URINE SPECIMENOrdering Facility: [facility] Address: [address] [place] [address] Performed By: #### 2 4356-8 ####[facility] LABCLIA [id number] [place] [address] [place] Ketones Ql (U) Negative Normal Negative [facility] Comment on above: Order Comment: Speci men Type: URINE SPECIMENOrdering Facility: [facility] Address: [address] [place] [address] Performed By: #### 2 4356-8 ####[facility] LABCLIA [id number] [place] [address] [place] Leukocyte esterase Test strip Ql (U) Negative Normal Negative [facility] Comment on above: Order Comment: Speci men Type: URINE SPECIMENOrdering Facility: [facility] Address: [address] [place] [address] Performed By: #### 2 4356-8 ####[facility] LABCLIA [id number] [place] [address] [place] Nitrite Ql (U) Negative Normal Negative [facility] Comment on above: Order Comment: Speci men Type: URINE SPECIMENOrdering Facility: [facility] Address: [address] [place] [address] Performed By: #### 2 4356-8 ####[facility] LABCLIA [id number] [place] [id number] [place] pH (U) 6.0 [pH] Normal <8.5 [facility] Comment on above: Order Comment: Speci men Type: URINE SPECIMENOrdering Facility: [facility] Address: [address] [place] [address] Performed By: #### 2 4356-8 ####[facility] LABIA [id number] [place] [address] [place] Protein (U) [Mass/Vol] Negative Normal Negative [facility] Comment on above: Order Comment: Speci men Type: URINE SPECIMENOrdering Facility: [facility] Address: [address] [place] [address] Performed By: #### 2 4356-8 ####[facility] LABIA [id number] [place] [address] [place] RBC LM.HPF (Urine sed) [#/Area] 0-2 /HPF Normal 0-2 /HPF [facility] Comment on above: Order Comment: Speci men Type: URINE SPECIMENOrdering Facility: [facility] Address: [address] [place] [address] Performed By: #### 2 4356-8 ####[facility] LABIA [id number] [place] [id number] [place] Specific gravity (U) [Rel density] 1.016 Normal 1.005-1.03 0 [facility] Comment on above: Order Comment: Speci men Type: URINE SPECIMENOrdering Facility: [facility] Address: [address] [place] [address] Performed By: #### 2 4356-8 ####[facility] LABIA [id number] [place] [address] [place] Urobilinogen Ql (U) 0.2 EU/dL Normal 0.2-1.0 EU/dL [facility] Comment on above: Order Comment: Speci men Type: URINE SPECIMENOrdering Facility: [facility] Address: [address] [place] [address] Performed By: #### 2 4356-8 ####[facility] LABIA [id number] [place] [address] [place] WBC LM.HPF (Urine sed) [#/Area] 0-5 /HPF Normal 0-5 /HPF [facility] Comment on above: Order Comment: Speci men Type: URINE SPECIMENOrdering Facility: [facility] Address: [address] [place] [address] Performed By: #### 2 4356-8 ####[facility] [id number] [place] [address] [place] CBC W Auto Differential pane l (Bld)on 03-06-2025 Basophils (Bld) [#/Vol] 0.04 10*3/uL Normal <0.11 [facility] Comment on above: Order Comment: Speci men Type: BLOOD SPECIMENOrdering Facility: [facility] Address: [address] [place] [address] Performed By: #### 5 7021-8 ####[facility] LABIA [id number] [place] [address] [place] Basophils/100 WBC (Bld) 0.7 % Normal C [facility] Comment on above: Order Comment: Speci men Type: BLOOD SPECIMENOrdering Facility: [facility] Address: [address] [place] [address] Performed By: #### 5 7021-8 ####[facility] [id number] [address] [place] Differential cell count method Nom (Bld) Auto Normal [facility] Comment on above: Order Comment: Speci men Type: BLOOD SPECIMENOrdering Facility: [facility] Address: [address] [place] [address] Performed By: #### 5 7021-8 ####[facility] LABCLIA [id number] [place] [address] [place] Eosinophils (Bld) [#/Vol] 0.10 10*3/uL Normal <0.46 [facility] Comment on above: Order Comment: Speci men Type: BLOOD SPECIMENOrdering Facility: [facility] Address: [address] [place] [address] Performed By: #### 5 7021-8 ####[facility] LABCLIA [id number] [place] [address] [place] Eosinophils/100 WBC (Bld) 1.7 % Normal [facility] Comment on above: Order Comment: Speci men Type: BLOOD SPECIMENOrdering Facility: [facility] Address: [address] [place] [address] Performed By: #### 5 7021-8 ####[facility] LABCLIA [id number] [place] [address] [place] Erythrocyte distribution width (RBC) [Ratio] 14.3 % Normal 11.5-15.0 [facility] Comment on above: Order Comment: Speci men Type: BLOOD SPECIMENOrdering Facility: [facility] Address: [address] [place] [address] Performed By: #### 5 7021-8 ####[facility] LABCLIA [id number] [address] [place] Hematocrit (Bld) [Volume fraction] 36.7 % Normal 36.0-46.0 [facility] Comment on above: Order Comment: Speci men Type: BLOOD SPECIMENOrdering Facility: [facility] Address: [address] [place] [address] Performed By: #### 5 7021-8 ####[facility] LABCLIA [id number] [place] [address] [place] Hemoglobin (Bld) [Mass/Vol] 11.6 g/dL Normal 11.5-15.5 [facility] Comment on above: Order Comment: Speci men Type: BLOOD SPECIMENOrdering Facility: [facility] Address: [address] [place] [address] Performed By: #### 5 7021-8 ####[facility] LABCLIA [id number] [address], [place] [address] [place] Immature granulocytes (Bld) [#/Vol] 10*3/uL Normal <0.10 [facility] Comment on above: Order Comment: Speci men Type: BLOOD SPECIMENOrdering Facility: [facility] Address: [address] [place] [address] Performed By: #### 5 7021-8 ####[facility] LABCLIA [id number] [address], [place] [address] [place] Immature granulocytes/100 WBC (Bld) 0.2 % Normal [facility] Comment on above: Order Comment: Speci men Type: BLOOD SPECIMENOrdering Facility: [facility] Address: [address] [place] [address] Performed By: #### 5 7021-8 ####[facility] LABCLIA [id number] [place] [id number] [place] Lymphocytes (Bld) [#/Vol] 2.99 10*3/uL Normal 1.00-4.0 0 [facility] Comment on above: Order Comment: Speci men Type: BLOOD SPECIMENOrdering Facility: [facility] Address: [address] [place] [address] Performed By: #### 5 7021-8 ####[facility] LABCLIA [id number] [place] [id number] [place] Lymphocytes/100 WBC (Bld) 51.6 % Normal [facility] Comment on above: Order Comment: Speci men Type: BLOOD SPECIMENOrdering Facility: [facility] Address: [address] [place] [address] Performed By: #### 5 7021-8 ####[facility] LABIA [id number] [place] [address] [place] MCH (RBC) [Entitic mass] 28.6 pg Normal 26.0-34.0 [facility] Comment on above: Order Comment: Speci men Type: BLOOD SPECIMENOrdering Facility: [facility] Address: [address] [place] [address] Performed By: #### 5 7021-8 ####[facility] LABIA [id number] [place] [address] [place] MCHC (RBC) [Mass/Vol] 31.6 g/dL Normal 30.5-36.0 [facility] Comment on above: Order Comment: Speci men Type: BLOOD SPECIMENOrdering Facility: [facility] Address: [address] [place] [address] Performed By: #### 5 7021-8 ####[facility] LABIA [id number] [place] [address] [place] MCV (RBC) [Entitic vol] 90.4 fL Normal 80.0-100.0 C [facility] Comment on above: Order Comment: Speci men Type: BLOOD SPECIMENOrdering Facility: [facility] Address: [address] [place] [address] Performed By: #### 5 7021-8 ####[facility] LABIA [id number] [place] [address] [place] Monocytes (Bld) [#/Vol] 0.56 10*3/uL Normal <0.87 [facility] Comment on above: Order Comment: Speci men Type: BLOOD SPECIMENOrdering Facility: [facility] Address: [address] [place] [address] Performed By: #### 5 7021-8 ####[facility] LABCLIA [id number] [place] [address] [place] Monocytes/100 WBC (Bld) 9.7 % Normal [facility] Comment on above: Order Comment: Speci men Type: BLOOD SPECIMENOrdering Facility: [facility] Address: [address] [place] [address] Performed By: #### 5 7021-8 ####[facility] LABCLIA [id number] [place] [address] [place] Neutrophils (Bld) [#/Vol] 2.10 10*3/uL Normal 1.45-7.5 0 [facility] Comment on above: Order Comment: Speci men Type: BLOOD SPECIMENOrdering Facility: [facility] Address: [address] [place] [address] Performed By: #### 5 7021-8 ####[facility] LABCLIA [id number] [address] [place] Neutrophils/100 WBC (Bld) 36.1 % Normal [facility] Comment on above: Order Comment: Speci men Type: BLOOD SPECIMENOrdering Facility: [facility] Address: [address] [place] [address] Performed By: #### 5 7021-8 ####[facility] LABCLIA [id number] [place] [address] [place] Nucleated RBC (Bld) [#/Vol] 10*3/uL Normal <0.01 [facility] Comment on above: Order Comment: Speci men Type: BLOOD SPECIMENOrdering Facility: [facility] Address: [address] [place] [address] Performed By: #### 5 7021-8 ####[facility] LABCLIA [id number] [place] [id number] [place] Nucleated RBC/100 WBC (Bld) [Ratio] 0.0 /100 WBC Normal [facility] Comment on above: Order Comment: Speci men Type: BLOOD SPECIMENOrdering Facility: [facility] Address: [address] [place] [address] Performed By: #### 5 7021-8 ####[facility] LABCLIA [id number] [place] [address] [place] Platelet mean volume (Bld) [Entitic vol] 11.7 fL Normal 9.0-12.7 [facility] Comment on above: Order Comment: Speci men Type: BLOOD SPECIMENOrdering Facility: [facility] Address: [address] [place] [address] Performed By: #### 5 7021-8 ####[facility] LABCLIA [id number] [place] [address] [place] Platelets (Bld) [#/Vol] 246 10*3/uL Normal 150-400 [facility] Comment on above: Order Comment: Speci men Type: BLOOD SPECIMENOrdering Facility: [facility] Address: [address] [place] [address] Performed By: #### 5 7021-8 ####[facility] LABIA [id number] [place] [address] [place] RBC (Bld) [#/Vol] 4.06 10*6/uL Normal 3.90-5.[address] [facility] Comment on above: Order Comment: Speci men Type: BLOOD SPECIMENOrdering Facility: [facility] Address: [address] [place] [address] Performed By: #### 5 7021-8 ####[facility] LABCLIA [id number] [place] [id number] [place] WBC (Bld) [#/Vol] 5.80 10*3/uL Normal 3.70-11.[address] [facility] Comment on above: Order Comment: Speci men Type: BLOOD SPECIMENOrdering Facility: [facility] [address] [facility] [place] [address] Performed By: #### 5 7021-8 ####[facility] LABCLIA [id number] [address] [id number] [place] [address] [place] Gastroenterology Visit Repor ton 03-04-2025 Gastroenterology Visit Report [facility] [address] [place] [address] OFFICE VISIT Date of Service: 03/04/25 MR#: [id number] Acct: [id number] Name: LAURENCE KOROMA Kendal Rep #: [id number] : 1950 Provider: Aleksandar Quigley DO Age/Sex: 74/F [place] [facility] Status: Signed Intake Vital Signs 01/26/25 07:14 Height 5 ft Intake Visit Reasons: diverticulitis moving forward plan Allergies ragweed pollen Allergy (Intermediate, Verified 02/20/25 09:06) Shortness of breath Sulfa (Sulfonamide Antibiotics) Allergy (Intermediate, Verified 02/20/25 09:06) Hives azithromycin (From Zithromax Z-Jael) Adverse Reaction (Verified 02/20/25 09:06) Nausea Medications ???Medication ???Instructions ???Recorded ???Confirmed ???Type multivitamin 1 ea PO DAILY supplement 10/11/15 03/04/25 History hydrochlorothiazide 12.5 mg capsule 12.5 mg PO QDAY blood pressure 02/14/18 03/04/25 History calcium carbonate 600 mg PO BID supplement 03/15/23 03/04/25 History alendronate 70 mg tablet 70 mg PO QWEEK bones 04/18/2302/13 History lisinopril 40 mg tablet 40 mg PO DAILY blood pressure 03/0603/04/25 History loratadine 10 mg tablet (Claritin) 10 mg PO DAILY allergies 3 03/04/25 History acyclovir 800 mg tablet 800 mg PO DAILY PRN FEVER BLISTER 07/11/23 03/04/25 History aspirin 81 mg chewable tablet 1 tab PO DAILY 11/27/23 03/04/25 H istory cholecalciferol (vitamin D3) 10 10 mcg PO BID 11/27/23 03/04/25 Hi story mcg (400 unit) capsule (Vitamin D3) fluticasone propionate 50 2 spray intranasal BID 11/27/23 History mcg/actuation nasal spray,suspension potassium chloride 8 mEq 8 meq PO DAILY 11/27/23 03/04/25 H istory capsule,extended release Have you fallen in the past year?: No PFS Medical History (Updated 02/20/25 @ 16:[address] Huertas Friend, DO) Diverticulitis EVELYN (acute kidney injury) Hypotension Near syncope Aortic insufficiency Insomnia LALO (generalized anxiety disorder) Elevated plasma metanephrines Osteoporosis Essential hypertension Dehydration Diarrhea Sleep apnea Fatigue Weight loss Nausea Hemorrhoid History of Clostridium difficile colitis Osteoarthritis Chronic back pain Syncope Gastroenteritis Surgical History History of tonsillectomy History of colonoscopy Family History Mother Hypertension Father Heart disease Cancer skin cancer Grandmother Heart disease CVA (cerebral vascular accident) Social History Smoking Status: Never smoker alcohol intake: never substance use type: does not use HPI HPI Details: LAURENCE KOROMA, is a 74 F who presents to the office today for follow up. EGD and Colonoscopy with Dr Dominguez 2.07.05 EGD LA Grade A reflux esophagitis. Biopsied. Mild Schatzki ring. 2 cm hiatal hernia. Normal mid esophagus. Biopsied. Chronic gastritis. Biopsied. Duodenitis. Biopsied. Colonoscopy Decreased sphincter tone found on digital rectal exam. Diverticulosis in the sigmoid colon. Diverticulosis in the entire examined colon. One 5 mm polyp in the cecum, removed with a cold biopsy forceps. Resected and retrieved. Multiple non-bleeding colonic angiodysplastic lesions. Biopsied. Tortuous colon. Biopsied. abd/pelvis CT 01.26.25 1. There appears to be mild diverticulitis of the sigmoid colon. There is no free air seen. There is no abscess seen. There is no ascites seen. 2. Gallstone 3. 2 right renal cysts 4. Arteriosclerotic vascular disease of the aorta 5. Degenerative changes and levoscoliosis of the lumbar spine. Degenerative disc disease is seen involving L3-L4, L4-L5, and L5-L6 *BGI established 5 Pt recently seen at [facility] ER for diverticulitis. Was treated with Cipro and Flagyl. States she last had diverticulitis in 2022. States the ATB helped with the abdominal pain but still has urgent loose stools. Mostly in the morning. She said she doesn't do well with ATB as she has a hx of C.diff. Last had in 2006. States she has been on the BRAT diet and has been taking probiotics. OV 03.04.25 pt reports that she would like more information regarding her diverticular disease and would also like more information regarding nutrition. Pt reports that her stools have been more regular since starting metamucil. ROS Const Constitutional: Positive for weight change (weight loss); No fatigue or fever(s) ENT ENT: No difficulty swallowing Gastro GI: Positive for change in bowel habits; No abdominal pain, belching, bloating, change in stool character, coffee ground emesis, constipation, cramping, diarrhea, heartburn, difficulty swallowing, feeling full early, excessive flatus, (more content not included)... Normal [facility] ANCAon 02-26-2025 Atypical pANCA <1:20 Normal Neg:<1:20 [facility] Comment on above: Result Comment: The atypical pANCA pattern has been observed in a significant percentage of patients with ulcerative colitis, primary sclerosing cholangitis and autoimmune hepatitis. Performed By: #### L 3100.3425, L3300.1200, L5500.0550, L3200.1100, L3410.2400, L501.6710, L101.9900, L3300.1800, L500.4050, L100.0100 ####[facility] [address] [place], [address] Cytoplasmic Ab <1:20 Normal Neg:<1:20 [facility] Comment on above: Performed By: #### L 3100.3425, L3300.1200, L5500.0550, L3200.1100, L3410.2400, L501.6710, L101.9900, L3300.1800, L500.4050, L100.0100 ####[facility] [address] [place], [address] Perinuclear Ab. <1:20 Normal Neg:<1:20 [facility] Comment on above: Result Comment: The presence of positive fluorescence exhibiting P-ANCA or C-ANCA patterns alone is not specific for the diagnosis of Lata's Granulomatosis (WG) or microscopic polyangiitis. Decisions about treatment should not be based solely on ANCA IFA results. The [employer] ANCA [employer] Consensus recommends follow up testing of positive sera with both MS- 3 and MPO-ANCA enzyme immunoassays. As many as 5% serum samples are positive only by EIA. Ref. AM J Clin Pathol 1999;111:507-513. Performed By: #### L 3100.3425, L3300.1200, L5500.0550, L3200.1100, L3410.2400, L501.6710, L101.9900, L3300.1800, L500.4050, L100.0100 ####[facility] [address] [place], [place], [phone] Celiac Disease Profileon ENDOMYSIAL IGA Negative Normal Negative [facility] Comment on above: Performed By: #### L 3100.3425, L3300.1200, L5500.0550, L3200.1100, L3410.2400, L501.6710, L101.9900, L3300.1800, L500.4050, L100.0100 ####[facility] [address] [place], [place], [phone] tTG IGA <2 Normal 0-3 [facility] Comment on above: Result Comment: Nega tive 0 - 3 Weak Positive 4 - 10 Positive >10 Tissue Transglutaminase (tTG) has been identified as the endomysial antigen. Studies have demonstr- ated that endomysial IgA antibodies have over 99% specificity for gluten sensitive enteropathy. Performed By: #### L 3100.3425, L3300.1200, L5500.0550, L3200.1100, L3410.2400, L501.6710, L101.9900, L3300.1800, L500.4050, L100.0100 ####[facility] [address] [place], [place], [phone] Gastrin, Serumon 02-26-2025 GASTRIN TNP Normal . [facility] Comment on above: Result Comment: No pj austin serum received. CONTACTED YOUR FACILITY VIA EMAIL ON 02-23-2025 Siemens Walleptte 2000 Immunochemiluminometric assay (ICMA) Values obtained with different assay methods or kits cannot be used interchangeably. Results cannot be interpreted as absolute evidence of the presence or absence of malignant disease. Performed By: #### L 3100.3425, L3300.1200, L5500.0550, L3200.1100, L3410.2400, L501.6710, L101.9900, L3300.1800, L500.4050, L100.0100 ####[facility] [address] [place], [place], [address] DAFNE + Protein Elect, Serumon 02-26-2025 Albumin [Mass/Vol] 3.6 g/dL Normal 2.9-4.4 [facility] Comment on above: Order Comment: N Performed By: #### L 3100.3425, L3300.1200, L5500.0550, L3200.1100, L3410.2400, L501.6710, L101.9900, L3300.1800, L500.4050, L100.0100 ####[facility] [address] [place], [place], [phone] Albumin/Globulin [Mass ratio] 1.1 {ratio} Normal 0.7-1.7 [facility] Comment on above: Order Comment: N Performed By: #### L 3100.3425, L3300.1200, L5500.0550, L3200.1100, L3410.2400, L501.6710, L101.9900, L3300.1800, L500.4050, L100.0100 ####[facility] [address] [place], [address] VALAG-8-MBQO 0.3 g/dL Normal 0.0-0.4 [facility] Comment on above: Order Comment: N Performed By: #### L 3100.3425, L3300.1200, L5500.0550, L3200.1100, L3410.2400, L501.6710, L101.9900, L3300.1800, L500.4050, L100.0100 ####[facility] [address] [place], [place], [phone]) XHNRR-5-BNGE 0.8 g/dL Normal 0.4-1.0 [facility] Comment on above: Order Comment: N Performed By: #### L 3100.3425, L3300.1200, L5500.0550, L3200.1100, L3410.2400, L501.6710, L101.9900, L3300.1800, L500.4050, L100.0100 ####[facility] [address] [place], [place], [phone]) BETA GLOBULIN 1.1 g/dL Normal 0.7-1.3 [facility] Comment on above: Order Comment: N Performed By: #### L 3100.3425, L3300.1200, L5500.0550, L3200.1100, L3410.2400, L501.6710, L101.9900, L3300.1800, L500.4050, L100.0100 ####[facility] [address] [place], [place], [phone]) GAMMA GLOBULIN 1.2 g/dL Normal 0.4-1.8 [facility] Comment on above: Order Comment: N Performed By: #### L 3100.3425, L3300.1200, L5500.0550, L3200.1100, L3410.2400, L501.6710, L101.9900, L3300.1800, L500.4050, L100.0100 ####[facility] [address] [place], [address] Globulin (S) [Mass/Vol] 3.5 g/dL Normal 2.2-3.9 [facility] Comment on above: Order Comment: N Performed By: #### L 3100.3425, L3300.1200, L5500.0550, L3200.1100, L3410.2400, L501.6710, L101.9900, L3300.1800, L500.4050, L100.0100 ####[facility] [address] [place], [address] DAFNE RESULT,S Comment Normal . [facility] Comment on above: Order Comment: N Result Comment: No m onoclonality detected. Performed By: #### L 3100.3425, L3300.1200, L5500.0550, L3200.1100, L3410.2400, L501.6710, L101.9900, L3300.1800, L500.4050, L100.0100 ####[facility] [address] [place], [address] IMMUNOGLOB A QN 275 mg/dL Normal 64-422 [facility] Comment on above: Order Comment: N Performed By: #### L 3100.3425, L3300.1200, L5500.0550, L3200.1100, L3410.2400, L501.6710, L101.9900, L3300.1800, L500.4050, L100.0100 ####[facility] [address] [place], [address] IMMUNOGLOB G QN 1242 mg/dL Normal 586-1602 [facility] Comment on above: Order Comment: N Performed By: #### L 3100.3425, L3300.1200, L5500.0550, L3200.1100, L3410.2400, L501.6710, L101.9900, L3300.1800, L500.4050, L100.0100 ####[facility] [address] [place], [place], [phone] IMMUNOGLOB M QN 70 mg/dL Normal 26-217 [facility] Comment on above: Order Comment: N Performed By: #### L 3100.3425, L3300.1200, L5500.0550, L3200.1100, L3410.2400, L501.6710, L101.9900, L3300.1800, L500.4050, L100.0100 ####[facility] [address] [place], [place], [phone] M-Luis Not Observed Normal Not Observed [facility] Comment on above: Order Comment: N Performed By: #### L 3100.3425, L3300.1200, L5500.0550, L3200.1100, L3410.2400, L501.6710, L101.9900, L3300.1800, L500.4050, L100.0100 ####[facility] [address] [place], [place], [phone] NOTE: Comment Normal . [facility] Comment on above: Order Comment: N Result Comment: Prot ein electrophoresis scan will follow via computer, mail, or physical therapist delivery. Performed By: #### L 3100.3425, L3300.1200, L5500.0550, L3200.1100, L3410.2400, L501.6710, L101.9900, L3300.1800, L500.4050, L100.0100 ####[facility] [address] [place], [place], [phone] Protein [Mass/Vol] 7.1 g/dL Normal 6.0-8.5 [facility] Comment on above: Order Comment: N Performed By: #### L 3100.3425, L3300.1200, L5500.0550, L3200.1100, L3410.2400, L501.6710, L101.9900, L3300.1800, L500.4050, L100.0100 ####[facility] [address] [place], [address] Immunoglobulins G/A/M/Dwaine IMMUNOGLOB E QN 4 IU/mL Low 6-495 [facility] Comment on above: Order Comment: N Performed By: #### L 3100.3425, L3300.1200, L5500.0550, L3200.1100, L3410.2400, L501.6710, L101.9900, L3300.1800, L500.4050, L100.0100 ####[facility] [address] [place], [address] L5500.0550on 02-25-2025 BEEF <0.10 Normal Class 0 [facility] Comment on above: Performed By: #### L 3100.3425, L3300.1200, L5500.0550, L3200.1100, L3410.2400, L501.6710, L101.9900, L3300.1800, L500.4050, L100.0100 ####[facility] [address] [place], [place], [phone] CHOCOLATE <0.10 Normal Class 0 [facility] Comment on above: Performed By: #### L 3100.3425, L3300.1200, L5500.0550, L3200.1100, L3410.2400, L501.6710, L101.9900, L3300.1800, L500.4050, L100.0100 ####[facility] [address] [place], [address] CODFISH <0.10 Normal Class 0 [facility] Comment on above: Performed By: #### L 3100.3425, L3300.1200, L5500.0550, L3200.1100, L3410.2400, L501.6710, L101.9900, L3300.1800, L500.4050, L100.0100 ####[facility] [address] [place], [place], [phone] COMMENT Comment Normal . [facility] Comment on above: Result Comment: Cata liriano of Specific IgE Class Description of Class ----- < 0.10 0 Negative 0.10 - 0.31 0/I Equivocal/Low 0.32 - 0.55 I Low 0.56 - 1.40 II Moderate 1.41 - 3.90 III High 3.91 - 19.00 IV Very High 19.01 - 100.00 V Very High >100.00 Very High Performed By: #### L 3100.3425, L3300.1200, L5500.0550, L3200.1100, L3410.2400, L501.6710, L101.9900, L3300.1800, L500.4050, L100.0100 ####[facility] [address] [place], [place], [phone] CORN <0.10 Normal Class 0 [facility] Comment on above: Performed By: #### L 3100.3425, L3300.1200, L5500.0550, L3200.1100, L3410.2400, L501.6710, L101.9900, L3300.1800, L500.4050, L100.0100 ####[facility] [address] [place], [place], [phone] EGG, WHOLE <0.10 Normal Class 0 [facility] Comment on above: Result Comment: Perf ormed at: [facility] [address] [id number] [employer] Warm Up: Kerwin Ni MD, Phone: [phone] Performed By: #### L 3100.3425, L3300.1200, L5500.0550, L3200.1100, L3410.2400, L501.6710, L101.9900, L3300.1800, L500.4050, L100.0100 ####[facility] [address] [place], [place], [phone]) MILK (COW) <0.10 Normal Class 0 [facility] Comment on above: Performed By: #### L 3100.3425, L3300.1200, L5500.0550, L3200.1100, L3410.2400, L501.6710, L101.9900, L3300.1800, L500.4050, L100.0100 ####[facility] [address] [place], [place], [phone]) MUSSELS <0.10 Normal Class 0 [facility] Comment on above: Performed By: #### L 3100.3425, L3300.1200, L5500.0550, L3200.1100, L3410.2400, L501.6710, L101.9900, L3300.1800, L500.4050, L100.0100 ####[facility] [address] [place], [place], [phone]) PEANUT <0.10 Normal Class 0 [facility] Comment on above: Performed By: #### L 3100.3425, L3300.1200, L5500.0550, L3200.1100, L3410.2400, L501.6710, L101.9900, L3300.1800, L500.4050, L100.0100 ####[facility] [address] [place], [place], [phone](348) PORK <0.10 Normal Class 0 [facility] Comment on above: Performed By: #### L 3100.3425, L3300.1200, L5500.0550, L3200.1100, L3410.2400, L501.6710, L101.9900, L3300.1800, L500.4050, L100.0100 ####[facility] [address] [place], [place], [phone](225) SALMON <0.10 Normal Class 0 [facility] Comment on above: Performed By: #### L 3100.3425, L3300.1200, L5500.0550, L3200.1100, L3410.2400, L501.6710, L101.9900, L3300.1800, L500.4050, L100.0100 ####[facility] [address] [place], [place], [phone] SHRIMP <0.10 Normal Class 0 [facility] Comment on above: Performed By: #### L 3100.3425, L3300.1200, L5500.0550, L3200.1100, L3410.2400, L501.6710, L101.9900, L3300.1800, L500.4050, L100.0100 ####[facility] [address] [place], [address] SOYBEAN <0.10 Normal Class 0 [facility] Comment on above: Performed By: #### L 3100.3425, L3300.1200, L5500.0550, L3200.1100, L3410.2400, L501.6710, L101.9900, L3300.1800, L500.4050, L100.0100 ####[facility] [address] [place], [place], [phone] TUNA <0.10 Normal Class 0 [facility] Comment on above: Performed By: #### L 3100.3425, L3300.1200, L5500.0550, L3200.1100, L3410.2400, L501.6710, L101.9900, L3300.1800, L500.4050, L100.0100 ####[facility] [address] [place], [place], [phone] WHEAT <0.10 Normal Class 0 [facility] Comment on above: Performed By: #### L 3100.3425, L3300.1200, L5500.0550, L3200.1100, L3410.2400, L501.6710, L101.9900, L3300.1800, L500.4050, L100.0100 ####[facility] [address] [place], [address] Absolute lymphocyte countOrd ered By: Aleksandar Quigley on 02-20-2025 Lymphocytes Auto (Unsp spec) [#/Vol] 2.13 10*3/uL 0.83-4.51 [facility] Absolute neutrophil countOrd ered By: Aleksandarprasad Quigley on 02-20-2025 Neutrophils (Bld) [#/Vol] 1.9 10*3/uL Low 2.0-7.7 [facility] Albumin Elph [Mass/Vol]Order ed By: Aleksandarrosalee Quigley on 02-20-2025 Albumin [Mass/Vol] 3.6 g/dL 2.9-4.4 [facility] Anion gap in Serum or Plasma Ordered By: Aleksandarprasad Quigley on 02-20-2025 Anion gap [Moles/Vol] 13 mmol/L 5-15 [facility] Automated lymphocyte count a s percentage of total leukocytesOrdered By: Aleksandarprasad Quigley on 02-20-2025 Lymphocytes/100 WBC Auto (Unsp spec) 46.5 % High 19-41 [facility] BUN/creatinine ratioOrdered By: Aleksandarrosalee Quigley on 02-20-2025 Urea nitrogen/Creatinine [Mass ratio] 18.0 mg/mg 10-20 [facility] Basophil percentageOrdered B y: Aleksandar Quigley on 02-20-2025 Basophils/100 WBC (Bld) 1.1 % High 0-1 [facility] Bilirubin, totalOrdered By: Aleksandar Quigley on 02-20-2025 Bilirubin [Mass/Vol] 0.30 mg/dL 0.00-1.30 [facility] CBC W/Diff, Automatedon Absolute Lymph 2.13 X10 3/uL Normal 0.83-4.51 [facility] Comment on above: Performed By: #### L 3100.3425, L3300.1200, L5500.0550, L3200.1100, L3410.2400, L501.6710, L101.9900, L3300.1800, L500.4050, L100.0100 #### [facility] [address] [place], [phone]) Absolute Neut 1.9 X10 3/uL Low 2.0-7.7 [facility] Comment on above: Performed By: #### L 3100.3425, L3300.1200, L5500.0550, L3200.1100, L3410.2400, L501.6710, L101.9900, L3300.1800, L500.4050, L100.0100 #### [facility] [address] [place], [address] [phone]) Basophils/100 WBC (Bld) 1.1 % High 0-1 [facility] Comment on above: Performed By: #### L 3100.3425, L3300.1200, L5500.0550, L3200.1100, L3410.2400, L501.6710, L101.9900, L3300.1800, L500.4050, L100.0100 #### [facility] [address] [place], [address] Eosinophils/100 WBC (Bld) 2.6 % Normal 0-5 [facility] Comment on above: Performed By: #### L 3100.3425, L3300.1200, L5500.0550, L3200.1100, L3410.2400, L501.6710, L101.9900, L3300.1800, L500.4050, L100.0100 #### [facility] [address] [place], [address] Erythrocyte distribution width (RBC) [Ratio] 14.0 % Normal 11.6-14.6 [facility] Comment on above: Performed By: #### L 3100.3425, L3300.1200, L5500.0550, L3200.1100, L3410.2400, L501.6710, L101.9900, L3300.1800, L500.4050, L100.0100 #### [facility] [address] [place], [address] Hematocrit (Bld) [Volume fraction] 33.4 % Low 37-47 [facility] Comment on above: Performed By: #### L 3100.3425, L3300.1200, L5500.0550, L3200.1100, L3410.2400, L501.6710, L101.9900, L3300.1800, L500.4050, L100.0100 #### [facility] [address] [place], [address] Hemoglobin (Bld) [Mass/Vol] 11.1 g/dL Low 12.0-15.0 [facility] Comment on above: Performed By: #### L 3100.3425, L3300.1200, L5500.0550, L3200.1100, L3410.2400, L501.6710, L101.9900, L3300.1800, L500.4050, L100.0100 #### [facility] [address] [facility] [place], [address] IG% 0.200 Normal 0.0-0.9 [facility] Comment on above: Result Comment: IG% - Immature Granulocytes (promyelocytes, myelocytes and metamyelocytes) > 1% indicates that a LEFT SHIFT is Present. Performed By: #### L 3100.3425, L3300.1200, L5500.0550, L3200.1100, L3410.2400, L501.6710, L101.9900, L3300.1800, L500.4050, L100.0100 #### [facility] [address] [place], [address] Lymphocytes/100 WBC (Bld) 46.5 % High 19-41 [facility] Comment on above: Performed By: #### L 3100.3425, L3300.1200, L5500.0550, L3200.1100, L3410.2400, L501.6710, L101.9900, L3300.1800, L500.4050, L100.0100 #### [facility] [address] [place], [address] MCH (RBC) [Entitic mass] 29.7 pg Normal 27.0-32.0 [facility] Comment on above: Performed By: #### L 3100.3425, L3300.1200, L5500.0550, L3200.1100, L3410.2400, L501.6710, L101.9900, L3300.1800, L500.4050, L100.0100 #### [facility] [address] [place], [address] MCHC (RBC) [Mass/Vol] 33.2 g/dL Normal 32-36 [facility] Comment on above: Performed By: #### L 3100.3425, L3300.1200, L5500.0550, L3200.1100, L3410.2400, L501.6710, L101.9900, L3300.1800, L500.4050, L100.0100 #### [facility] [address] [facility] [place], [address] MCV (RBC) [Entitic vol] 89.3 fL Normal 81-99 [facility] Comment on above: Performed By: #### L 3100.3425, L3300.1200, L5500.0550, L3200.1100, L3410.2400, L501.6710, L101.9900, L3300.1800, L500.4050, L100.0100 #### [facility] [address] [facility] [place], [address] Monocytes/100 WBC (Bld) 8.5 % Normal 0-10 [facility] Comment on above: Performed By: #### L 3100.3425, L3300.1200, L5500.0550, L3200.1100, L3410.2400, L501.6710, L101.9900, L3300.1800, L500.4050, L100.0100 #### [facility] [address] [place], [address] (266) Neutrophils/100 WBC (Bld) 41.1 % Low 47-70 [facility] Comment on above: Performed By: #### L 3100.3425, L3300.1200, L5500.0550, L3200.1100, L3410.2400, L501.6710, L101.9900, L3300.1800, L500.4050, L100.0100 #### [facility] [address] [place], [address] ([phone]) Nucleated RBC (Bld) [#/Vol] 0 10*3/uL Normal 0-5 [facility] Comment on above: Performed By: #### L 3100.3425, L3300.1200, L5500.0550, L3200.1100, L3410.2400, L501.6710, L101.9900, L3300.1800, L500.4050, L100.0100 #### [facility] [address] [place], [address] (244) Platelet mean volume (Bld) [Entitic vol] 11.6 fL Normal 6.2-12.0 [facility] Comment on above: Performed By: #### L 3100.3425, L3300.1200, L5500.0550, L3200.1100, L3410.2400, L501.6710, L101.9900, L3300.1800, L500.4050, L100.0100 #### [facility] [address] [place], [address] ([phone]) Platelets (Bld) [#/Vol] 256 10*3/uL Normal 150-450 [facility] Comment on above: Performed By: #### L 3100.3425, L3300.1200, L5500.0550, L3200.1100, L3410.2400, L501.6710, L101.9900, L3300.1800, L500.4050, L100.0100 #### [facility] [address] [place], [place], [phone] RBC (Bld) [#/Vol] 3.74 10*6/uL Low 4.2-5.4 [facility] Comment on above: Performed By: #### L 3100.3425, L3300.1200, L5500.0550, L3200.1100, L3410.2400, L501.6710, L101.9900, L3300.1800, L500.4050, L100.0100 #### [facility] [address] [place], [address] RDW SD 45.9 fl High 35.1-43.9 [facility] Comment on above: Performed By: #### L 3100.3425, L3300.1200, L5500.0550, L3200.1100, L3410.2400, L501.6710, L101.9900, L3300.1800, L500.4050, L100.0100 #### [facility] [address] [place], [place], [phone] WBC (Bld) [#/Vol] 4.6 10*3/uL Normal 4.4-11.0 [facility] Comment on above: Performed By: #### L 3100.3425, L3300.1200, L5500.0550, L3200.1100, L3410.2400, L501.6710, L101.9900, L3300.1800, L500.4050, L100.0100 #### [facility] [address] [place], [place], [phone] CRPon 02-20-2025 C-REACTIVE PROT < 3.00 Normal 0.0-3.0 [facility] Comment on above: Performed By: #### L 3100.3425, L3300.1200, L5500.0550, L3200.1100, L3410.2400, L501.6710, L101.9900, L3300.1800, L500.4050, L100.0100 ####[facility] [address], [address] Carbon dioxide, total [Moles /volume] in Central venous bloodOrdered By: Aleksandar Quigley on 02-20-2025 CO2 [Moles/Vol] 21.5 mmol/L 21.0-32.0 [facility] Chloride assayOrdered By: Ra elis Quigley on 02-20-2025 Chloride [Moles/Vol] 105 mmol/L 98-108 [facility] Comprehensive Metabolic Prof ilon 02-20-2025 Albumin [Mass/Vol] 4.2 g/dL Normal 3.4-4.8 [facility] Comment on above: Performed By: #### L 3100.3425, L3300.1200, L5500.0550, L3200.1100, L3410.2400, L501.6710, L101.9900, L3300.1800, L500.4050, L100.0100 #### [facility] [address] [place], [address] Albumin/Globulin [Mass ratio] 1.2 {ratio} Normal 0.9-2.4 [facility] Comment on above: Performed By: #### L 3100.3425, L3300.1200, L5500.0550, L3200.1100, L3410.2400, L501.6710, L101.9900, L3300.1800, L500.4050, L100.0100 #### [facility] [address] [place], [address] ALK PHOS 63 U/L Normal 35-104 [facility] Comment on above: Performed By: #### L 3100.3425, L3300.1200, L5500.0550, L3200.1100, L3410.2400, L501.6710, L101.9900, L3300.1800, L500.4050, L100.0100 #### [facility] [address] [place], [address] ALT [Catalytic activity/Vol] 18 U/L Normal <=34 [facility] Comment on above: Performed By: #### L 3100.3425, L3300.1200, L5500.0550, L3200.1100, L3410.2400, L501.6710, L101.9900, L3300.1800, L500.4050, L100.0100 #### [facility] [address] [place], [address] AST [Catalytic activity/Vol] 33 U/L High <=31 [facility] Comment on above: Performed By: #### L 3100.3425, L3300.1200, L5500.0550, L3200.1100, L3410.2400, L501.6710, L101.9900, L3300.1800, L500.4050, L100.0100 #### [facility] [address] [place], [place], [phone] Bilirubin [Mass/Vol] 0.30 mg/dL Normal 0.00-1.30 [facility] Comment on above: Performed By: #### L 3100.3425, L3300.1200, L5500.0550, L3200.1100, L3410.2400, L501.6710, L101.9900, L3300.1800, L500.4050, L100.0100 #### [facility] [address] [place], [place], [phone] BUN/CRE 18.0 RATIO Normal 10-20 [facility] Comment on above: Performed By: #### L 3100.3425, L3300.1200, L5500.0550, L3200.1100, L3410.2400, L501.6710, L101.9900, L3300.1800, L500.4050, L100.0100 #### [facility] [address] [place], [place], [phone] ([phone] Calcium [Mass/Vol] 10.4 mg/dL Normal 7.6-11.0 [facility] Comment on above: Performed By: #### L 3100.3425, L3300.1200, L5500.0550, L3200.1100, L3410.2400, L501.6710, L101.9900, L3300.1800, L500.4050, L100.0100 #### [facility] [address] [place], [address] Chloride [Moles/Vol] 105 mmol/L Normal 98-108 [facility] Comment on above: Performed By: #### L 3100.3425, L3300.1200, L5500.0550, L3200.1100, L3410.2400, L501.6710, L101.9900, L3300.1800, L500.4050, L100.0100 #### [facility] [address] [place], [place], [phone] ([phone]) CO2 [Moles/Vol] 21.5 mmol/L Normal 21.0-32.0 [facility] Comment on above: Performed By: #### L 3100.3425, L3300.1200, L5500.0550, L3200.1100, L3410.2400, L501.6710, L101.9900, L3300.1800, L500.4050, L100.0100 #### [facility] [address] [place], [place], [phone] ([phone]) Creatinine [Mass/Vol] 1.10 mg/dL Normal 0.70-1.20 [facility] Comment on above: Performed By: #### L 3100.3425, L3300.1200, L5500.0550, L3200.1100, L3410.2400, L501.6710, L101.9900, L3300.1800, L500.4050, L100.0100 #### [facility] [address] [place], [place], [phone] (094) GAP 13 Normal 5-15 [facility] Comment on above: Performed By: #### L 3100.3425, L3300.1200, L5500.0550, L3200.1100, L3410.2400, L501.6710, L101.9900, L3300.1800, L500.4050, L100.0100 #### [facility] [address] [place], [place], [phone] ([phone]) GFR/1.73 sq M.predicted among non-blacks MDRD (S/P/Bld) [Vol rate/Area] 52 mL/min/{1.73_m2} Low >60 [facility] Comment on above: Result Comment: mL/m in/1.73m2 CKD-EPI Creatinine Equation (2020) Performed By: #### L 3100.3425, L3300.1200, L5500.0550, L3200.1100, L3410.2400, L501.6710, L101.9900, L3300.1800, L500.4050, L100.0100 #### [facility] [address] [place], [place], [phone] (542) Globulin (S) [Mass/Vol] 3.4 g/dL Normal 2.2-4.2 [facility] Comment on above: Performed By: #### L 3100.3425, L3300.1200, L5500.0550, L3200.1100, L3410.2400, L501.6710, L101.9900, L3300.1800, L500.4050, L100.0100 #### [facility] [address] [place], [place], [phone] (994) Glucose [Mass/Vol] 87 mg/dL Normal 70-99 [facility] Comment on above: Performed By: #### L 3100.3425, L3300.1200, L5500.0550, L3200.1100, L3410.2400, L501.6710, L101.9900, L3300.1800, L500.4050, L100.0100 #### [facility] [address] [place], [address] Potassium [Moles/Vol] 3.6 mmol/L Normal 3.3-5.1 [facility] Comment on above: Performed By: #### L 3100.3425, L3300.1200, L5500.0550, L3200.1100, L3410.2400, L501.6710, L101.9900, L3300.1800, L500.4050, L100.0100 #### [facility] [address], [address] Sodium [Moles/Vol] 139 mmol/L Normal 133-145 [facility] Comment on above: Performed By: #### L 3100.3425, L3300.1200, L5500.0550, L3200.1100, L3410.2400, L501.6710, L101.9900, L3300.1800, L500.4050, L100.0100 #### [facility] [address] [place], [address] T PROT 7.5 g/dL Normal 5.9-8.4 [facility] Comment on above: Performed By: #### L 3100.3425, L3300.1200, L5500.0550, L3200.1100, L3410.2400, L501.6710, L101.9900, L3300.1800, L500.4050, L100.0100 #### [facility] [address] [place], [address] Urea nitrogen [Mass/Vol] 20 mg/dL High 4-19 [facility] Comment on above: Performed By: #### L 3100.3425, L3300.1200, L5500.0550, L3200.1100, L3410.2400, L501.6710, L101.9900, L3300.1800, L500.4050, L100.0100 #### [facility] [address] [place], [place], [phone] Eosinophil percentageOrdered By: Aleksandar Quigley on 02-20-2025 Eosinophils/100 WBC (Bld) 2.6 % 0-5 [facility] Erythrocyte Sed Rateon 02-20 SED RATE 31 mm/hr High 0-30 [facility] Comment on above: Performed By: #### L 3100.3425, L3300.1200, L5500.0550, L3200.1100, L3410.2400, L501.6710, L101.9900, L3300.1800, L500.4050, L100.0100 #### [facility] [address] [place], [address] Erythrocyte distribution wid th ratioOrdered By: Aleksandar Quigley on 02-20-2025 Erythrocyte distribution width (RBC) [Ratio] 14.0 % 11.6-14.6 [facility] Erythrocyte distribution wid th standard deviationOrdered By: Aleksandar Quigley on 02-20-2025 Erythrocyte distribution width (RBC) [Ratio] 45.9 fl High 35.1-43.9 [facility] Erythrocyte sedimentation ra teOrdered By: Aleksandar Quigley on 02-20-2025 ESR (Bld) [Velocity] 31 mm/h High 0-30 [facility] Gastrin, serumOrdered By: Ra elis Quigley on 02-20-2025 Gastrin [Mass/Vol] TNP [facility] Comment on above: Test not performedNo frozen serum received.CONTACTED YOUR FACILITY VIA EMAIL ON [id number] Immulite 2000 Immunochemiluminometric assay (ICMA)Values obtained with different assay methods or kits cannotbe used interchangeably. Results cannot be interpreted asabsolute evidence of the presence or absence of malignantdisease. Gastroenterology Visit Repor ton 02-20-2025 Gastroenterology Visit Report [facility] [address] [place] [address] OFFICE VISIT Date of Service: 02/20/25 MR#: [id number] Acct: [id number] Name: LAURENCE KOROMA Rep #: [id number] : 1950 Provider: Aleksandar Quigley DO Age/Sex: 74/F Location: [facility] [place] Status: Signed Intake Vital Signs 01/26/25 07:14 Height 5 ft Intake Visit Reasons: Diverticulitis flare Allergies ragweed pollen Allergy (Intermediate, Verified 02/20/25 09:06) Shortness of breath Sulfa (Sulfonamide Antibiotics) Allergy (Intermediate, Verified 02/20/25 09:06) Hives azithromycin (From Zithromax Z-Jael) Adverse Reaction (Verified 02/20/25 09:06) Nausea Medications ???Medication ???Instructions ???Recorded ???Confirmed ???Type multivitamin 1 ea PO DAILY supplement 10/11/15 02/20/25 History hydrochlorothiazide 12.5 mg capsule 12.5 mg PO QDAY blood pressure 02/14/18 02/20/25 History calcium carbonate 600 mg PO BID supplement 03/15/23 02/20/25 History alendronate 70 mg tablet 70 mg PO QWEEK bones 04/18/2307/09 History lisinopril 40 mg tablet 40 mg PO DAILY blood pressure 03/0602/20/25 History loratadine 10 mg tablet (Claritin) 10 mg PO DAILY allergies 3 02/20/25 History acyclovir 800 mg tablet 800 mg PO DAILY PRN FEVER BLISTER 07/11/23 02/20/25 History aspirin 81 mg chewable tablet 1 tab PO DAILY 11/27/23 02/20/25 H istory cholecalciferol (vitamin D3) 10 10 mcg PO BID 11/27/23 02/20/25 Hi story mcg (400 unit) capsule (Vitamin D3) fluticasone propionate 50 2 spray intranasal BID 11/27/23 History mcg/actuation nasal spray,suspension potassium chloride 8 mEq 8 meq PO DAILY 11/27/23 02/20/25 H istory capsule,extended release ciprofloxacin HCl 500 mg tablet 500 mg PO BID #14 TABLETS 01/26/25 02/20/25 Rx metronidazole 500 mg tablet 500 mg PO Q8H 7 days #21 tabs 01/1302/20/25 Rx Have you fallen in the past year?: No PFSH Medical History (Updated 02/20/25 @ 16:[address] Huertas Friend, DO) Diverticulitis EVELYN (acute kidney injury) Hypotension Near syncope Aortic insufficiency Insomnia LALO (generalized anxiety disorder) Elevated plasma metanephrines Osteoporosis Essential hypertension Dehydration Diarrhea Sleep apnea Fatigue Weight loss Nausea Hemorrhoid History of Clostridium difficile colitis Osteoarthritis Chronic back pain Syncope Gastroenteritis Surgical History History of tonsillectomy History of colonoscopy Family History Mother Hypertension Father Heart disease Cancer skin cancer Grandmother Heart disease CVA (cerebral vascular accident) Social History Smoking Status: Never smoker alcohol intake: never substance use type: does not use HPI HPI Details: LAURENCE KOROMA, is a 74 F who presents to the office today for initial consult. Pt recently seen at [facility] ER for diverticulitis. Was treated with Cipro and Flagyl. States she last had diverticulitis in 2022. States the ATB helped with the abdominal pain but still has urgent loose stools. Mostly in the morning. She said she doesn't do well with ATB as she has a hx of C.diff. Last had in 2006. States she has been on the BRAT diet and has been taking probiotics. ROS Const Constitutional: No fatigue, fever(s) or weight change ENT ENT: No difficulty swallowing Gastro GI: No abdominal pain, belching, bloating, change in bowel habits, change in stool character, coffee ground emesis, constipation, cramping, diarrhea, heartburn, difficulty swallowing, feeling full early, excessive flatus, incontinent of stools, Vomiting blood/hematemesis, Blood in stool, loose stools, Black,tarry stools, nausea/dyspepsia, pain with swallowing, vomiting or other Musc Musculoskeletal: No joint pain Skin Skin: No yellowing of the eye or itchy eyes Psych Psychiatric: No anxiety and No depression Endo Endocrine: No fatigue or weight change Aller/Imm Allergy/Immunologic: No itchy eyes Rasta/Lymp Hematologic/Lymphatic: No easy bleeding or easy bruising Exam Const General: cooperative and healthy appearing Nutritional Appearance: average body habitus Orientation: oriented x3 Eyes General: appearance normal, both eyes and all related structures Sclera: sclerae normal Resp Effort Inspection: normal respiratory effort Auscultation: Bilateral: Clear to Auscultation Cardio Rate: regular rate Rhythm: regular rhythm GI Inspection: normal to inspection Palpation: no hepatosplenomegaly Rectal Exam: deferred Assessment and Plan Assessment and Plan (1) Clostridium difficile diarrhea: Status: Acute (2) Diverticulitis: Sta (more content not included)... Normal [facility] Glomerular filtration rate ( GFR) estimation/1.73 sq m using serum, plasma, or whole bOrdered By: Aleksandar Quigley on 02-20-2025 GFR/1.73 sq M.predicted among non-blacks MDRD (S/P/Bld) [Vol rate/Area] 52 mL/min/{1.73_m2} Low >60 [facility] Comment on above: mL/min/1.73m2 CKD-EP I Creatinine Equation (2020) Hematocrit Auto (Bld) [Volum e fraction]Ordered By: Aleksandar Quigley on 02-20-2025 Hematocrit (Bld) [Volume fraction] 33.4 % Low 37-47 [facility] Hemoglobin measurementOrdere d By: Aleksandar Quigley on 02-20-2025 Hemoglobin (Bld) [Mass/Vol] 11.1 g/dL Low 12.0-15.0 [facility] IgEOrdered By: Aleksandar chase on 02-20-2025 IgE 4 IU/mL Low 6-495 [facility] Immature granulocytes/100 WB C Auto (Bld)Ordered By: Aleksandar Quigley on 02-20-2025 Immature granulocytes/100 WBC (Bld) 0.200 % 0.0-0.9 [facility] Comment on above: IG% - Immature Granu locytes (promyelocytes, myelocytes and metamyelocytes) > 1% indicates that a LEFT SHIFT is Present. Interpretation of serum or p lasma protein pattern by immunofixation (narrative resultOrdered By: Aleksandar Quigley on 02-20-2025 Protein Fractions Immunofixation Leo [Interp] Not Observed g/dL Not Observed [facility] - Chemistry and C hemistry - challengeOrdered By: Aleksandar Quigley on 02-20-2025 AST [Catalytic activity/Vol] 33 U/L High <32 [facility] - Miscellaneous t estsOrdered By: Aleksandar Quigley on 02-20-2025 Service comment (Unsp spec) [Interp] Comment . [facility] Comment on above: Levels of Specific I gE Class Description of Class ----- < 0.10 0 Negative 0.10 - 0.31 0/I Equivocal/Low 0.32 - 0.55 I Low 0.56 - 1.40 II Moderate 1.41 - 3.90 III High 3.91 - 19.00 IV Very High 19.01 - 100.00 V Very High >100.00 Very High MCV (mean corpuscular volume ) determinationOrdered By: Aleksandar Quigley on 02-20-2025 MCV (RBC) [Entitic vol] 89.3 fL 81-99 [facility] Mean corpuscular hemoglobin (MCH) determinationOrdered By: Aleksandar Quigley on 02-20-2025 MCH (RBC) [Entitic mass] 29.7 pg 27.0-32.0 [facility] Mean corpuscular hemoglobin concentration (MCHC) determinationOrdered By: Aleksandar Quigley on 02-20-2025 MCHC (RBC) [Mass/Vol] 33.2 g/dL 32-36 [facility] Mean platelet volume determi nationOrdered By: Aleksandar Quigley on 02-20-2025 Platelet mean volume (Bld) [Entitic vol] 11.6 fL 6.2-12.0 [facility] Monocyte percentageOrdered B y: Aleksandar Quigley on 02-20-2025 Monocytes/100 WBC (Bld) 8.5 % 0-10 [facility] Neutrophil percentageOrdered By: Aleksandar Quigley on 02-20-2025 Neutrophils/100 WBC (Bld) 41.1 % Low 47-70 [facility] No Panel InformationOrdered By: Aleksandar Quigley on 02-20-2025 Addendum Document Comment . [facility] Comment on above: Protein electrophore sis scan will follow via computer,mail, or physical therapist delivery. Nucleated red blood cell per centageOrdered By: Aleksandar Quigley on 02-20-2025 Nucleated RBC/100 WBC (Bld) [Ratio] 0 % 0-5 [facility] Platelet countOrdered By: Ra elis Quigley on 02-20-2025 Platelets (Bld) [#/Vol] 256 10*3/uL 150-450 [facility] Potassium measurement (mass/ volume)Ordered By: Aleksandar Quigley on 02-20-2025 Potassium (Unsp spec) [Mass/Vol] 3.6 mmol/L 3.3-5.1 [facility] RBC Auto (Bld) [#/Vol]Ordere d By: Aleksandar Quigley on 02-20-2025 RBC (Bld) [#/Vol] 3.74 10*6/uL Low 4.2-5.4 [facility] Serum beef IgE antibody assa y (units/volume)Ordered By: Aleksandar Quigley on 02-20-2025 Beef IgE Qn (S) <0.10 kU/L Class 0 [facility] Serum classic neutrophil cyt oplasmic antibody assay (units/volume)Ordered By: Aleksandar Quigley on 02-20-2025 Neutrophil cytoplasmic Ab.classic Qn (S) <1:20 titer Neg:<1:20 [facility] Serum codfish IgE antibody a ssay (units/volume)Ordered By: Aleksandar Quigley on 02-20-2025 Codfish IgE Qn (S) <0.10 kU/L Class 0 [facility] Serum corn IgE antibody assa y (units/volume)Ordered By: Aleksandar Quigley on 02-20-2025 [place] IgE Qn (S) <0.10 kU/L Class 0 [facility] Serum cow milk IgE antibody assay (units/volume)Ordered By: Aleksandar Quigley on 02-20-2025 Cow milk IgE Qn (S) <0.10 kU/L Class 0 [facility] Serum creatinine measurement (mass/volume)Ordered By: Aleksandar Quigley on 02-20-2025 Creatinine [Mass/Vol] 1.10 mg/dL 0.70-1.20 [facility] Serum globulin measurementOr dered By: Aleksandar Quigley on 02-20-2025 Globulin (S) [Mass/Vol] 3.4 g/dL 2.2-4.2 [facility] Serum globulin measurement ( mass/volume)Ordered By: Aleksandar Quigley on 02-20-2025 Globulin (S) [Mass/Vol] 3.5 g/dL 2.2-3.9 [facility] Serum glucose measurement (m ass/volume)Ordered By: Aleksandar Quigley on 02-20-2025 Glucose [Mass/Vol] 87 mg/dL 70-99 [facility] Serum or plasma C reactive p rotein measurement (mass/volume)Ordered By: Aleksandar Quigley on 02-20-2025 CRP [Mass/Vol] mg/L 0.0-3.0 [facility] Serum or plasma IgA measurem ent (mass/volume)Ordered By: Aleksandar Quigley on 02-20-2025 IgA [Mass/Vol] 275 mg/dL 64-422 [facility] Serum or plasma IgG measurem ent (mass/volume)Ordered By: Aleksandar Quigley on 02-20-2025 IgG [Mass/Vol] 1242 mg/dL [phone] [facility] Serum or plasma alanine floyd otransferase (ALT) measurementOrdered By: Aleksandar Quigley on 02-20-2025 ALT [Catalytic activity/Vol] 18 U/L <35 [facility] Serum or plasma albumin nikunj urement (mass/volume)Ordered By: Aleksandar Quigley on 02-20-2025 Albumin [Mass/Vol] 4.2 g/dL 3.4-4.8 [facility] Serum or plasma albumin/glob ulin mass ratioOrdered By: Aleksandar Quigley on 02-20-2025 Albumin/Globulin [Mass ratio] 1.2 {ratio} 0.9-2.4 [facility] Serum or plasma alkaline ravi sphatase measurementOrdered By: Aleksandar Quigley on 02-20-2025 ALP [Catalytic activity/Vol] 63 U/L 35-104 [facility] Serum or plasma alpha 1 glob ulin measurement by electrophoresis (mass/volume)Ordered By: Aleksandar Quigley on 02-20-2025 Alpha 1 globulin Elph [Mass/Vol] 0.3 g/dL 0.0-0.4 [facility] Alpha 1 globulin Elph [Mass/Vol] 0.8 g/dL 0.4-1.0 [facility] Serum or plasma beta globuli n measurement by electrophoresis (mass/volume)Ordered By: Aleksandar Quigley on 02-20-2025 Beta globulin Elph [Mass/Vol] 1.1 g/dL 0.7-1.3 [facility] Serum or plasma calcium nikunj urement (mass/volume)Ordered By: Aleksandar Quigley on 02-20-2025 Calcium [Mass/Vol] 10.4 mg/dL 7.6-11.0 [facility] Serum or plasma gamma globul in measurement by electrophoresis (mass/volume)Ordered By: Aleksandar Quigley on 02-20-2025 Gamma globulin Elph [Mass/Vol] 1.2 g/dL 0.4-1.8 [facility] Serum or plasma immunoelectr ophoresis interpretation (nominal result)Ordered By: Aleksandar Quigley on 02-20-2025 Interpretation IEP [Interp] Comment . [facility] Comment on above: No monoclonality det ected. Serum or plasma protein nikunj urement (mass/volume)Ordered By: Aleksandar Quigley on 02-20-2025 Protein [Mass/Vol] 7.1 g/dL 6.0-8.5 [facility] Serum or plasma urea nitroge n measurement (mass/volume)Ordered By: Aleksandar Quigley on 02-20-2025 Urea nitrogen [Mass/Vol] 20 mg/dL High 4-19 [facility] Serum peanut IgE antibody as say (units/volume)Ordered By: Aleksandar Quigley on 02-20-2025 Peanut IgE Qn (S) <0.10 kU/L Class 0 [facility] Serum perinuclear neutrophil cytoplasmic antibody titer by immunofluorescenceOrdered By: Aleksandar Quigley on 02-20-2025 Neutrophil cytoplasmic Ab.perinuclear IF (S) [Titer] <1:20 titer Neg:<1:20 [facility] Comment on above: The presence of posi tive fluorescence exhibiting P-ANCA orC-ANCA patterns alone is not specific for the diagnosis ofWegener's Granulomatosis (WG) or microscopic polyangiitis.Decisions about treatment should not be based solely onANCA IFA results. The [employer] ANCA Group Consensusrecommends follow up testing of positive sera with both MS-3 and MPO-ANCA enzyme immunoassays. As many as 5% serumsamples are positive only by EIA. Ref. AM J Clin [id number];111:507-513. Serum pork IgE antibody assa y (units/volume)Ordered By: Aleksandar Quigley on 02-20-2025 Pork IgE Qn (S) <0.10 kU/L Class 0 [facility] Serum salmon IgE antibody as say (units/volume)Ordered By: Aleksandar Quigley on 02-20-2025 Godley IgE Qn (S) <0.10 kU/L Class 0 [facility] Serum soybean IgE antibody a ssay (units/volume)Ordered By: Aleksandar Quigley on 02-20-2025 Soybean IgE Qn (S) <0.10 kU/L Class 0 [facility] Serum tissue transglutaminas e (tTG) IgA antibody assay (units/volume)Ordered By: Aleksandar Quigley on 02-20-2025 tTG IgA Qn (S) <2 U/mL 0-3 [facility] Comment on above: Negative 0 - 3 Weak Positive 4 - 10 Positive >10 Tissue Transglutaminase (tTG) has been identified as the endomysial antigen. Studies have demonstr- ated that endomysial IgA antibodies have over 99% specificity for gluten sensitive enteropathy. Serum tuna IgE antibody assa y (units/volume)Ordered By: Aleksandar Quigley on 02-20-2025 Tuna IgE Qn (S) <0.10 kU/L Class 0 [facility] Serum wheat IgE antibody ass ay (units/volume)Ordered By: Aleksandar Quigley on 02-20-2025 Wheat IgE Qn (S) <0.10 kU/L Class 0 [facility] Serum whole egg IgE antibody assay (units/volume)Ordered By: Aleksandar Quigley on 02-20-2025 Whole Egg IgE Qn (S) <0.10 kU/L Class 0 [facility] Comment on above: Performed at: [address] [id number] Director: Kerwin Ni MD, Phone: [phone] Sodium levelOrdered By: Rose románrosalee Friend on 02-20-2025 Sodium [Moles/Vol] 139 mmol/L 133-145 [facility] Total proteinOrdered By: dulce blainerosalee Friend on 02-20-2025 Protein [Mass/Vol] 7.5 g/dL 5.9-8.4 [facility] White blood cell (WBC) count Ordered By: Aleksandar Friend on 02-20-2025 WBC (Bld) [#/Vol] 4.6 10*3/uL 4.4-11.0 [facility] CNPNon 02-16-2025 CNPN Telephone (FAMWS) -------- LAURENCE KOROMA ([id number]) 1950 F Date Time Provider Department 02/16/25 [facility] During your visit today, we recorded the following information about you: Margaret Reyes RN 02/17/2025 8:24 AM Signed Opened in error. Margaret Reyes RN Allergies As of Date: 02/16/2025 Noted Allergy Reaction SULFA (SULFONAMIDE ANTIBIOTICS) 05/15/2007 2 - Rash AUGMENTIN (AMOXICILLIN-POT CLAVUL*05/15/2007 5 - Intolerance Comments: Patient had diarrhea and possibly a mild skin rash with prior use of Augmentin. She has subsequently taken amoxicillin and tolerated this without adverse reaction. CATS 12/24/2009 5 - Intolerance ECHINACEA 02/22/2016 7 - Swelling POLLEN 12/24/2009 5 - Intolerance RAGWEED 12/24/2009 5 - Intolerance Date Reviewed: 02/12/2025 Reviewed by: Elina Mckenzie LPN - Fully Assessed Prescriptions as of 02/17/2025 - fluticasone (FLONASE) 50 mcg/actuation nasal spray Use 2 sprays in each nostril once daily. Rinse mouth after use. - lisinopril (ZESTRIL) 40 mg tablet Take 0.5 tablets by mouth two times a day. - hydroCHLOROthiazide 12.5 mg capsule Take 1 capsule by mouth once daily. - Potassium Chloride (KLOR-CON 8) 8 mEq tablet Take 1 tablet by mouth two times a day. - zolpidem (AMBIEN) 10 mg Take 1 tablet by mouth at bedtime as needed for up to 180 days. FOR INSOMNIA - multivit,iron,minerals/l utein (CENTRUM SILVER ULTRA WOMEN'S ORAL) Take by mouth. Take one tablet daily - alendronate (FOSAMAX) 70 mg tablet Take 1 tablet by mouth one time a week. In AM with cup of water on empty stomach. Nothing else by mouth and stay upright for 30 min. - L.acid/L.casei/B.bif/B.l on/FOS (PROBIOTIC BLEND ORAL) Take by mouth. - acyclovir (ZOVIRAX) 800 mg tablet 1 tablet three times daily. - aspirin, enteric coated (ASPIRIN, ENTERIC COATED) 81 mg EC tablet Take 1 tablet by mouth once daily. - loratadine (CLARITIN) 10 mg tablet Take 1 tablet by mouth once daily. 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] 11/30/2009 Cheilitis: lower lip: along jennifer to lip m*12/03/2011 Lichen Planus: lower lip [L43.9] 12/03/2011 04/25/2012 Candidal cheilitis [B37.83] 12/03/2011 Actinic cheilitis [L56.8] 12/03/2011 04/25/2012 Pruritus [L29.9] 12/03/2011 Seborrheic Keratosis [L82.1] 12/03/2011 04/25/2012 Essential hypertension, benign [I10] 06/13/2012 Chronic right-sided low back pain [M54.50, G89.*10/03/2016 Insomnia [G47.00] 11/29/2016 Lactose intolerance [E73.9] 11/29/2016 Encounter for gynecological examination without*07/21/2017 Encounter for screening mammogram for breast ca*07/21/2017 Encounter for Medicare annual wellness exam [Z0*07/21/2017 Chronic allergic rhinitis [J30.9] 07/21/2017 Elevated plasma metanephrines [R79.89] 01/27/2018 Screening for colon cancer [Z12.11] 11/13/2018 Elevated hemoglobin A1c [R73.09] 05/14/2019 LALO (generalized anxiety disorder) [F41.1] 12/29/2020 Medication management [Z79.899] 07/06/2021 Advance directive discussed with patient [Z71.8*07/26/2022 Mild AI (aortic insufficiency) [I35.1] 07/27/2022 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 dysplasia of both carotid arterie*08/03/2022 Diverticulosis [K57.90] 04/23/2023 History of Clostridium difficile colitis [Z86.1*11/20/2023 Encounter Status:Closed by MARGARET REYES on 02/17/25 Normal [facility] C diff Tox gens Stl Ql BRITTANI+p robeon 02-15-2025 C. difficile toxin genes BRITTANI+probe Ql (Stl) Negative Normal Negative for C. difficile toxin by PCR [facility] Comment on above: Order Comment: Speci men Type: STOOL SPECIMENOrdering Facility: [facility] Address: [address] [place] [address] Performed By: #### 5 4067-4 ####[facility] LABIA [id number] [place] [address] [place] G lamblia+Cryptosp Ag Stl Ql IAon 02-15-2025 G. lamblia+Cryptosporidium sp Ag IA Ql (Stl) CRYPTOSPORIDIUM ANTIGEN BY EIA: Negative for Cryptosporidium by EIA. GIARDIA ANTIGEN BY EIA: Negative for Giardia lamblia by EIA. Normal [facility] Comment on above: Performed By: #### 7 9390-1, 99406-8 ####[facility] LABIA [id number] [place] [address] [place] Gastrointestinal pathogens i dentified BRITTANI+probe Nom (Stl)on 02-15-2025 Campylobacter sp DNA BRITTANI+probe Nom (Unsp spec) Not detected Normal Not Detected [facility] Comment on above: Order Comment: Speci men Type: STOOL SPECIMENOrdering Facility: [facility] Address: [address] [place] [address] Performed By: #### 7 9390-1, 72013-0 ####[facility] LABCLIA [id number] [place] [address] [place] Salmonella sp DNA BRITTANI+probe Ql (Unsp spec) Not detected Normal Not Detected [facility] Comment on above: Order Comment: Speci men Type: STOOL SPECIMENOrdering Facility: [facility] Address: [address] [place] [address] Performed By: #### 7 9390-1, 76059-0 ####[facility] LABIA [id number] [address] [place] Shiga toxin stx gene BRITTNAI+probe Nom (Unsp spec) Not detected Normal Not Detected [facility] Comment on above: Order Comment: Speci men Type: STOOL SPECIMENOrdering Facility: [facility] Address: [address] [place] [address] Performed By: #### 7 9390-1, 22542-2 ####[facility] LABIA [id number] [address] [place] Shigella sp DNA BRITTANI+probe Ql (Unsp spec) Not detected Normal Not Detected [facility] Comment on above: Order Comment: Speci men Type: STOOL SPECIMENOrdering Facility: [facility] Address: [address] [place] [address] Performed By: #### 7 9390-1, 45094-2 ####[facility] LABIA [id number] [place] [address] [place] Ferritin SerPl-mCncon 2024 Ferritin [Mass/Vol] 153.0 ng/mL Normal 14.7-205.1 [facility] Comment on above: Order Comment: Speci men Type: BLOOD SPECIMENOrdering Facility: [facility] Address: [address] [place] [address] Performed By: #### 2 276-4, 56136-1, 3016-3 ####[facility] LABCLIA [id number] [place] [address] [place] Folate SerPl-ncon 02-14-20 25 Folate [Mass/Vol] ng/mL Normal >4.7 [facility] Comment on above: Order Comment: Speci men Type: BLOOD SPECIMENOrdering Facility: [facility] Address: [address] [place] [address] Result Comment: A re sult of > 20 ng/mL is not necessarily indicative of a pathologic or treatable condition: it reflects a limitation of the test methodology. Assay reference range: 4.8 to 24.2 ng/mL. Suitable for detection of folate deficiency. Reference: Folate III (Folate III) [package insert V 1.0 Armenian]. [facility], [place], [place]: August 2015. Performed By: #### 2 132-9, 2284-8 ####[facility] LABIA [id number] [place] [address] [place] Hemoccult Stl Ql IAon 2024 Lower GI hemoglobin IA Ql (Stl) Negative Normal Negative [facility] Comment on above: Order Comment: Speci men Type: STOOL SPECIMENOrdering Facility: [facility] Address: [address] [place] [address] Performed By: #### 2 9771-3 ####[facility] LABIA [id number] [place] [address] [place] Iron and Iron binding capaci ty panelon 02-13-2025 Iron [Mass/Vol] 60 ug/dL Normal 41-186 [facility] Comment on above: Order Comment: Speci men Type: BLOOD SPECIMENOrdering Facility: [facility] Address: [address] [place] [address] Performed By: #### 2 276-4, 71444-9, 3016-3 ####[facility] LABIA [id number] [address] [address] [place] Iron binding capacity [Mass/Vol] 284 ug/dL Normal 232-386 [facility] Comment on above: Order Comment: Speci men Type: BLOOD SPECIMENOrdering Facility: [facility] Address: [address] [place], [place] [id number] Performed By: #### 2 276-4, 52159-6, 3016-3 ####[facility] [id number] [place] [id number] [place] Iron/TIBC [Molar ratio] 21.1 % Normal 15.0-57.0 C [facility] Comment on above: Order Comment: Speci men Type: BLOOD SPECIMENOrdering Facility: [facility] Address: [address] [place] [address] Performed By: #### 2 276-4, 94551-2, 3016-3 ####[facility] [id number] [place] [id number] [place] TSH SerPl-aCncon 02-13-2025 TSH Qn 2.370 m[IU]/L Normal 0.270-4.20 0 [facility] Comment on above: Order Comment: Speci men Type: BLOOD SPECIMENOrdering Facility: [facility] Address: [address] [place] [address] Performed By: #### 2 276-4, 45508-5, 3016-3 ####[facility] [id number] [place] [id number] [place] Vit B12 SerPl-mCncon 025 Cobalamin (Vitamin B12) [Mass/Vol] 1281 pg/mL High 232-1245 [facility] Comment on above: Order Comment: Speci men Type: BLOOD SPECIMENOrdering Facility: [facility] Address: [address] [place], [place] [address] [address] Performed By: #### 2 132-9, 2284-8 ####[facility] TEODORA [id number] [place] [address] [place] CNOVon 02-12-2025 CNOV Office Visit (FAMPWS ) -------- LAURENCE KOROMA ([id number]) 1950 F Date Time Provider Department 02/12/25 1:20 PM [facility] During your visit today, we recorded the following information about you: Temperature Pulse Respiration Blood pressure 98.6 degrees 80/minute 16/minute 128/60 Weight 44.2 kg Constance Klein PA-C 02/12/2025 2:42 PM Signed Chief Complaint Patient presents with: Follow Up: Diverticulitis HPI Laurence Kendal Koroma is a 74 year old female who presents here today for Above Complaints.. Gastrointestinal Symptoms: - Persistent GI upset, difficulty retaining food; primarily consuming clear liquids, Jell-O, and broth. - Recent attempt to eat soft noodles resulted in very soft stool the following morning. - Avoids eating before leaving home due to fear of incontinence; wears a pad for protection. - Denies current abdominal pain. - Recent weight loss over the past three weeks. - History of C. diff x2. - Recent ER visit on January 26, received two antibiotics. - Taking probiotics BID and consuming small amounts of yogurt. - Colonoscopy in November [address] Mikael Benson revealed inflammation and diverticulosis in the sigmoid colon; a 5 mm polyp in the cecum was removed for biopsy. - Family history of diverticulosis in mother, who is 95 years old. Anemia: - Recent labs showed low blood count. - Has not been eating normally or taking multivitamins. Past medical history, appointments, medications, allergies reviewed. [...] benign 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 dysplasia of both carotid arteries 08/03/2022 US 07/2022 LALO (generalized anxiety disorder) 12/29/2020 History of Clostridium difficile colitis 11/20/2023 Due to antibiotics. May need Vanco at same time as antibiotics to prevent recurrence. Would do Vanco 125 mg a day while on an antibiotic. 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 hydroCHLOROthiazide 12.5 mg capsule Take 1 capsule by mouth once daily. Potassium Chloride (KLOR-CON 8) 8 mEq tablet Take 1 tablet by mouth two times a day. zolpidem (AMBIEN) 10 mg Take 1 tablet by mouth at bedtime as needed for up to 180 days. FOR INSOMNIA multivit,iron,minerals/l utein (CENTRUM SILVER ULTRA WOMEN'S ORAL) Take by mouth. Take one tablet daily fluticasone (FLONASE) 50 mcg/actuation nasal spray Use 2 Sprays in each nostril once daily. Rinse mouth after use. alendronate (FOSAMAX) 70 mg tablet Take 1 tablet by mouth one time a week. In AM with cup of water on empty stomach. Nothing else by mouth and stay upright for 30 min. L.acid/L.casei/B.bif/B.l on/FOS (PROBIOTIC BLEND ORAL) Take by mouth. acyclovir (ZOVIRAX) 800 mg tablet 1 tablet three times daily. aspirin, enteric coated (ASPIRIN, ENTERIC COATED) 81 mg EC tablet Take 1 tablet by mouth once daily. loratadine (CLA (more content not included)... Normal [facility] LAURENCE KOROMA ([id number]) 1950 F Date Time Provider Department 02/11/25 [facility]AB[facility] During your visit today, we recorded the following information about you: Osmar Bradford, RN 02/11/2025 10:51 AM Signed Pt reports she has appt with Eric Klein tomorrow at 1:20 pm. Pt reports she has not received the results of the CT scan done at [facility] ER on 01/26/25. Asking if provider would review those results with her at appt. Constance Klein PA-C 02/11/2025 11:08 AM Signed Her Visit with me is a routine 6 month exam. Not ER follow up. Looks like she had her ER follow up with [facility] on 01/29. It looks like the CT showed diverticulitis which is what she was treated for. If she is still having symptoms we will focus on discussing that during visit and decide next steps, and the reschedule her for the routine health visit. Elina Mckenzie LPN 02/11/2025 12:02 PM Signed Pt notified of Constance's message and verbalizes understanding. States when she saw [facility] they didn't talk about the CT scan. She has been taking 2 probiotics daily as [facility] recommended. She states that she does not want to get C-diff like she has had in the past. Advises that she knows her colon is not healed yet. Has been mostly having a clear liquid diet. She did try yogurt yesterday. She did have one piece of toast at one point. States she has a soft stool after eating. She is not sure which way she wants to go with visit tomorrow. She will let us know tomorrow. Offered a sooner appointment tomorrow morning but pt states her morning is not good tomorrow. Advised pt we can reschedule her 6 month f/u. Pt states she knows the labs she did for visit will be off and pt is worried about that. KELLI Naranjo Rayanne, PA-C 02/11/2025 12:18 PM Signed Will discuss tomorrow. Allergies As of Date: 02/11/2025 Noted Allergy Reaction SULFA (SULFONAMIDE ANTIBIOTICS) 05/15/2007 2 - Rash AUGMENTIN (AMOXICILLIN-POT CLAVUL*05/15/2007 5 - Intolerance Comments: Patient had diarrhea and possibly a mild skin rash with prior use of Augmentin. She has subsequently taken amoxicillin and tolerated this without adverse reaction. CATS 12/24/2009 5 - Intolerance ECHINACEA 02/22/2016 7 - Swelling POLLEN 12/24/2009 5 - Intolerance RAGWEED 12/24/2009 5 - Intolerance Date Reviewed: 01/29/2025 Reviewed by: Chey Ponce MA - Fully Assessed Reason for Visit: Patient Question [2717] Prescriptions as of 02/11/2025 - lisinopril (ZESTRIL) 40 mg tablet Take 0.5 tablets by mouth two times a day. - hydroCHLOROthiazide 12.5 mg capsule Take 1 capsule by mouth once daily. - Potassium Chloride (KLOR-CON 8) 8 mEq tablet Take 1 tablet by mouth two times a day. - zolpidem (AMBIEN) 10 mg Take 1 tablet by mouth at bedtime as needed for up to 180 days. FOR INSOMNIA - multivit,iron,minerals/l utein (CENTRUM SILVER ULTRA WOMEN'S ORAL) Take by mouth. Take one tablet daily - fluticasone (FLONASE) 50 mcg/actuation nasal spray Use 2 Sprays in each nostril once daily. Rinse mouth after use. - alendronate (FOSAMAX) 70 mg tablet Take 1 tablet by mouth one time a week. In AM with cup of water on empty stomach. Nothing else by mouth and stay upright for 30 min. - L.acid/L.casei/B.bif/B.l on/FOS (PROBIOTIC BLEND ORAL) Take by mouth. - acyclovir (ZOVIRAX) 800 mg tablet 1 tablet three times daily. - aspirin, enteric coated (ASPIRIN, ENTERIC COATED) 81 mg EC tablet Take 1 tablet by mouth once daily. - loratadine (CLARITIN) 10 mg tablet Take 1 tablet by mouth once daily. 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] 11/30/2009 Cheilitis: lower lip: along jennifer to lip m*12/03/2011 Lichen Planus: lower lip [L43.9] 12/03/2011 04/25/2012 Candidal cheilitis [B37.83] 12/03/2011 Actinic cheilitis [L56.8] 12/03/2011 04/25/2012 Pruritus [L29.9] 12/03/2011 Seborrheic Keratosis [L82.1] 12/03/2011 04/25/2012 Essential hypertension, benign [I10] 06/13/2012 Chronic right-sided low back pain [M54.50, G89.*10/03/2016 Insomnia [G47.00] 11/29/2016 Lactose intolerance [E73.9] 11/29/2016 Encounter for gynecological examination without*07/21/2017 Encounter for screening mammogram for breast ca*07/21/2017 Encounter for Medicare annual wellness exam [Z0*07/21/2017 Chronic allergic rhinitis [J30.9] 07/21/2017 Elevated plasma metanephrines [R79.89] 01/27/2018 Screening for colon cancer [Z12.11] 11/13/2018 Elevated hemoglobin A1c [R73.09] 05/14/2019 LALO (generalized anxiety disorder) [F41.1] 12/29/2020 Medication management [Z79.899] 07/06/2021 Advance directive discussed with patient [Z71.8*07/26/2022 Mild AI (aortic insufficiency) [I35.1] 07/27/2022 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 dysplasia of (more content not included)... Normal [facility] 25(OH)D3 [facility] 25-hydroxyvitamin D3 [Mass/Vol] 71.0 ng/mL Normal 31.0-80.0 [facility] Comment on above: Order Comment: Speci men Type: BLOOD SPECIMENOrdering Facility: [facility] Address: [address] [place] [address] Performed By: #### 1 989-3 ####[facility] [id number] [place] [address] [place] CBC W Auto Differential pane l (Bld)on 02-09-2025 Basophils (Bld) [#/Vol] 0.04 10*3/uL Normal <0.11 [facility] Comment on above: Order Comment: Speci men Type: BLOOD SPECIMENOrdering Facility: [facility] Address: [address] [place] [address] Performed By: #### 5 7021-8 ####[facility] [id number] [place] [address] [place] Basophils/100 WBC (Bld) 0.7 % Normal C [facility] Comment on above: Order Comment: Speci men Type: BLOOD SPECIMENOrdering Facility: [facility] Address: [address] [place] [address] Performed By: #### 5 7021-8 ####[facility] LABCLIA [id number] [place] [address] [place] Differential cell count method Nom (Bld) Auto Normal [facility] Comment on above: Order Comment: Speci men Type: BLOOD SPECIMENOrdering Facility: [facility] Address: [address] [place] [address] Performed By: #### 5 7021-8 ####[facility] LABCLIA [id number] [place] [address] [place] Eosinophils (Bld) [#/Vol] 0.11 10*3/uL Normal <0.46 [facility] Comment on above: Order Comment: Speci men Type: BLOOD SPECIMENOrdering Facility: [facility] Address: [address] [place] [address] Performed By: #### 5 7021-8 ####[facility] LABCLIA [id number] [place] [address] [place] Eosinophils/100 WBC (Bld) 1.8 % Normal [facility] Comment on above: Order Comment: Speci men Type: BLOOD SPECIMENOrdering Facility: [facility] Address: [address] [place] [address] Performed By: #### 5 7021-8 ####[facility] LABCLIA [id number] [place] [address] [place] Erythrocyte distribution width (RBC) [Ratio] 14.5 % Normal 11.5-15.0 [facility] Comment on above: Order Comment: Speci men Type: BLOOD SPECIMENOrdering Facility: [facility] Address: [address] [place] [address] Performed By: #### 5 7021-8 ####[facility] LABCLIA [id number] [place] [address] [place] Hematocrit (Bld) [Volume fraction] 32.5 % Low 36.0-46.0 [facility] Comment on above: Order Comment: Speci men Type: BLOOD SPECIMENOrdering Facility: [facility] Address: [address] [place] [address] Performed By: #### 5 7021-8 ####[facility] LABCLIA [id number] [place] [address] [place] Hemoglobin (Bld) [Mass/Vol] 10.5 g/dL Low 11.5-15.5 [facility] Comment on above: Order Comment: Speci men Type: BLOOD SPECIMENOrdering Facility: [facility] Address: [address] [place] [address] Performed By: #### 5 7021-8 ####[facility] LABCLIA [id number] [place] [address] [place] Immature granulocytes (Bld) [#/Vol] 0.03 10*3/uL Normal <0.10 [facility] Comment on above: Order Comment: Speci men Type: BLOOD SPECIMENOrdering Facility: [facility] Address: [address] [place] [address] Performed By: #### 5 7021-8 ####[facility] LABCLIA [id number] [place] [address] [place] Immature granulocytes/100 WBC (Bld) 0.5 % Normal [facility] Comment on above: Order Comment: Speci men Type: BLOOD SPECIMENOrdering Facility: [facility] Address: [address] [place] [address] Performed By: #### 5 7021-8 ####[facility] LABCLIA [id number] [place] [address] [place] Lymphocytes (Bld) [#/Vol] 1.98 10*3/uL Normal 1.00-4.0 0 [facility] Comment on above: Order Comment: Speci men Type: BLOOD SPECIMENOrdering Facility: [facility] Address: [address] [place] [address] Performed By: #### 5 7021-8 ####[facility] LABIA [id number] [place] [address] [place] Lymphocytes/100 WBC (Bld) 33.1 % Normal [facility] Comment on above: Order Comment: Speci men Type: BLOOD SPECIMENOrdering Facility: [facility] Address: [address] [place] [address] Performed By: #### 5 7021-8 ####[facility] LABIA [id number] [place] [address] [place] MCH (RBC) [Entitic mass] 28.9 pg Normal 26.0-34.0 [facility] Comment on above: Order Comment: Speci men Type: BLOOD SPECIMENOrdering Facility: [facility] Address: [address] [place] [address] Performed By: #### 5 7021-8 ####[facility] LABIA [id number] [place] [address] [place] MCHC (RBC) [Mass/Vol] 32.3 g/dL Normal 30.5-36.0 [facility] Comment on above: Order Comment: Speci men Type: BLOOD SPECIMENOrdering Facility: [facility] Address: [address] [place] [address] Performed By: #### 5 7021-8 ####[facility] LABIA [id number] [place] [address] [place] MCV (RBC) [Entitic vol] 89.5 fL Normal 80.0-100.0 C [facility] Comment on above: Order Comment: Speci men Type: BLOOD SPECIMENOrdering Facility: [facility] Address: [address] [place] [address] Performed By: #### 5 7021-8 ####[facility] LABIA [id number] [address] [address] [place] Monocytes (Bld) [#/Vol] 0.48 10*3/uL Normal <0.87 [facility] Comment on above: Order Comment: Speci men Type: BLOOD SPECIMENOrdering Facility: [facility] Address: [address] [place] [address] Performed By: #### 5 7021-8 ####[facility] LABCLIA [id number] [facility] [address], [place] [address] [place] Monocytes/100 WBC (Bld) 8.0 % Normal [facility] Comment on above: Order Comment: Speci men Type: BLOOD SPECIMENOrdering Facility: [facility] Address: [address] [place] [address] Performed By: #### 5 7021-8 ####[facility] LABCLIA [id number] [place] [address] [place] Neutrophils (Bld) [#/Vol] 3.35 10*3/uL Normal 1.45-7.5 0 [facility] Comment on above: Order Comment: Speci men Type: BLOOD SPECIMENOrdering Facility: [facility] Address: [address] [place] [address] Performed By: #### 5 7021-8 ####[facility] LABCLIA [id number] [facility] [address], [place] [address] [place] Neutrophils/100 WBC (Bld) 55.9 % Normal [facility] Comment on above: Order Comment: Speci men Type: BLOOD SPECIMENOrdering Facility: [facility] Address: [address] [place] [address] Performed By: #### 5 7021-8 ####[facility] LABCLIA [id number] [facility] [place] [address] [place] Nucleated RBC (Bld) [#/Vol] 10*3/uL Normal <0.01 [facility] Comment on above: Order Comment: Speci men Type: BLOOD SPECIMENOrdering Facility: [facility] Address: [address] [place] [address] Performed By: #### 5 7021-8 ####[facility] LABIA [id number] [place] [address] [place] Nucleated RBC/100 WBC (Bld) [Ratio] 0.0 /100 WBC Normal [facility] Comment on above: Order Comment: Speci men Type: BLOOD SPECIMENOrdering Facility: [facility] Address: [address] [place] [address] Performed By: #### 5 7021-8 ####[facility] LABIA [id number] [place] [address] [place] Platelet mean volume (Bld) [Entitic vol] 10.9 fL Normal 9.0-12.7 [facility] Comment on above: Order Comment: Speci men Type: BLOOD SPECIMENOrdering Facility: [facility] Address: [address] [place] [address] Performed By: #### 5 7021-8 ####[facility] LABIA [id number] [place] [address] [place] Platelets (Bld) [#/Vol] 329 10*3/uL Normal 150-400 [facility] Comment on above: Order Comment: Speci men Type: BLOOD SPECIMENOrdering Facility: [facility] Address: [address] [place] [address] Performed By: #### 5 7021-8 ####[facility] LABIA [id number] [address] [address] [place] RBC (Bld) [#/Vol] 3.63 10*6/uL Low 3.90-5.[address] [facility] Comment on above: Order Comment: Speci men Type: BLOOD SPECIMENOrdering Facility: [facility] Address: [address] [place] [address] Performed By: #### 5 7021-8 ####[facility] LABCLIA [id number] [place] [id number] [place] WBC (Bld) [#/Vol] 5.99 10*3/uL Normal 3.70-11.[address] [facility] Comment on above: Order Comment: Speci men Type: BLOOD SPECIMENOrdering Facility: [facility] Address: [address] [place] [address] Performed By: #### 5 7021-8 ####[facility] LABCLIA [id number] [place] [id number] [place] CNPLatosha 02-09-2025 SONDRAN Telephone (JORGEWS) -------- LAURENCE KOROMA ([id number]) 1950 F Date Time Provider Department 02/09/25 CONSTANCE KLEIN During your visit today, we recorded the following information about you: Danielle Quarles LPN 02/09/2025 10:27 AM Signed Pt has an appt 02/12 with Constance Klein PA-C. There are labs ordered for pt: lipid, HbA1C, and Vit D 25. Pt reports a couple of weeks ago she had to go to ER for diverticulitis flare-up. Pt reports she was put on two atb. Pt had concerns about getting C-diff since she had in the past. Pt reports she has been eating broth, toast, jellow, plain potatoes and noodles, probiotic yogurt. Pt reports stool is soft but no diarrhea. Pt reports her stomach still does not feel back to normal. Pt had ER f/u 01/29/25 with Katie Chaudhari CNP. Pt is asking with other labs if she should get a cbc to check white count. Please review and advise. KELLI Adams Rayanne, PA-C 02/09/2025 10:31 AM Signed Cbc added Elina Mckenzie LPN 02/09/2025 11:21 AM Signed Pt notified of additional lab order. Elina Mckenzie LPN Allergies As of Date: 02/09/2025 Noted Allergy Reaction SULFA (SULFONAMIDE ANTIBIOTICS) 05/15/2007 2 - Rash AUGMENTIN (AMOXICILLIN-POT CLAVUL*05/15/2007 5 - Intolerance Comments: Patient had diarrhea and possibly a mild skin rash with prior use of Augmentin. She has subsequently taken amoxicillin and tolerated this without adverse reaction. CATS 12/24/2009 5 - Intolerance ECHINACEA 02/22/2016 7 - Swelling POLLEN 12/24/2009 5 - Intolerance RAGWEED 12/24/2009 5 - Intolerance Date Reviewed: 01/29/2025 Reviewed by: Chey Ponce MA - Fully Assessed Reason for Visit: lab order question/appt 02/12 [Other] Primary Visit Diagnosis:Essential hypertension, benign [I10] Order(s):COMPLETE BLOOD COUNT AND DIFFERENTIAL [SQCBCDIF] Order #: [id number] FUTURE Prescriptions as of 02/09/2025 - lisinopril (ZESTRIL) 40 mg tablet Take 0.5 tablets by mouth two times a day. - hydroCHLOROthiazide 12.5 mg capsule Take 1 capsule by mouth once daily. - Potassium Chloride (KLOR-CON 8) 8 mEq tablet Take 1 tablet by mouth two times a day. - zolpidem (AMBIEN) 10 mg Take 1 tablet by mouth at bedtime as needed for up to 180 days. FOR INSOMNIA - multivit,iron,minerals/l utein (CENTRUM SILVER ULTRA WOMEN'S ORAL) Take by mouth. Take one tablet daily - fluticasone (FLONASE) 50 mcg/actuation nasal spray Use 2 Sprays in each nostril once daily. Rinse mouth after use. - alendronate (FOSAMAX) 70 mg tablet Take 1 tablet by mouth one time a week. In AM with cup of water on empty stomach. Nothing else by mouth and stay upright for 30 min. - L.acid/L.casei/B.bif/B.l on/FOS (PROBIOTIC BLEND ORAL) Take by mouth. - acyclovir (ZOVIRAX) 800 mg tablet 1 tablet three times daily. - aspirin, enteric coated (ASPIRIN, ENTERIC COATED) 81 mg EC tablet Take 1 tablet by mouth once daily. - loratadine (CLARITIN) 10 mg tablet Take 1 tablet by mouth once daily. 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] 11/30/2009 Cheilitis: lower lip: along jennifer to lip m*12/03/2011 Lichen Planus: lower lip [L43.9] 12/03/2011 04/25/2012 Candidal cheilitis [B37.83] 12/03/2011 Actinic cheilitis [L56.8] 12/03/2011 04/25/2012 Pruritus [L29.9] 12/03/2011 Seborrheic Keratosis [L82.1] 12/03/2011 04/25/2012 Essential hypertension, benign [I10] 06/13/2012 Chronic right-sided low back pain [M54.50, G89.*10/03/2016 Insomnia [G47.00] 11/29/2016 Lactose intolerance [E73.9] 11/29/2016 Encounter for gynecological examination without*07/21/2017 Encounter for screening mammogram for breast ca*07/21/2017 Encounter for Medicare annual wellness exam [Z0*07/21/2017 Chronic allergic rhinitis [J30.9] 07/21/2017 Elevated plasma metanephrines [R79.89] 01/27/2018 Screening for colon cancer [Z12.11] 11/13/2018 Elevated hemoglobin A1c [R73.09] 05/14/2019 LALO (generalized anxiety disorder) [F41.1] 12/29/2020 Medication management [Z79.899] 07/06/2021 Advance directive discussed with patient [Z71.8*07/26/2022 Mild AI (aortic insufficiency) [I35.1] 07/27/2022 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 dysplasia of both carotid arterie*08/03/2022 Diverticulosis [K57.90] 04/23/2023 History of Clostridium difficile colitis [Z86.1*11/20/2023 Encounter Status:Closed by ELINA MCKENZIE on 02/09/25 Normal [facility] HbA1c (Bld)on 02-09-2025 Average glucose Estimated from glycated hemoglobin (Bld) [Mass/Vol] 126 mg/dL Normal [facility] Comment on above: Order Comment: rGazyna anton Type: BLOOD SPECIMENOrdering Facility: [facility] Address: [address] [place] [address] Result Comment: eAG: (Estimated average glucose) is a calculated value from HgbA1c and is medical field representative of the average blood glucose level in the last 2-3 month period. Performed By: #### 5 5454-3 ####[facility] LABIA [id number] [place] [address] [place] HbA1c (Bld) [Mass fraction] 6.0 % High 4.3-5.6 [facility] Comment on above: Order Comment: Grazyna anton Type: BLOOD SPECIMENOrdering Facility: [facility] Address: [address] [place] [address] Result Comment: Amer ican Diabetes Association guidelines indicate that patients with HgbA1c in the range 5.7-6.4% are at increased risk for development of diabetes, and intervention by lifestyle modification may be beneficial. HgbA1c greater or equal to 6.5% is considered diagnostic of diabetes. Performed By: #### 5 5454-3 ####[facility] LABIA [id number] [place] [address] [place] LIPID PANEL, NONFASTINGon Cholesterol [Mass/Vol] 142 mg/dL Normal <200 [facility] Comment on above: Order Comment: Grazyna anton Type: BLOOD SPECIMENOrdering Facility: [facility] Address: [address] [place] [address] Result Comment: <200 mg/dL, Desirable 200-239 mg/dL, Borderline high >239 mg/dL, High Performed By: #### L IPNF ####[facility] LABCLIA [id number] [place] [address] [place] HDL CHOLESTEROL, NF 41 mg/dL Normal >[address] [facility] Comment on above: Order Comment: Specyasmin anton Type: BLOOD SPECIMENOrdering Facility: [facility] Address: [address] [place] [address] Result Comment: 40-5 9 mg/dL, Acceptable >59 mg/dL, High: Negative risk factor for coronary heart disease <40 mg/dL, Low: Positive risk factor for coronary heart disease Performed By: #### L IPNF ####[facility] LABCLIA [id number] [address] OF [facility] LDL CHOLESTEROL CALCULATED, NF 84 mg/dL Normal <100 [facility] Comment on above: Order Comment: Stephyasmin anton Type: BLOOD SPECIMENOrdering Facility: [facility] Address: [address] [place] [address] Result Comment: <100 mg/dL, Optimal 100-129 mg/dL, Near optimal/above optimal 130-159 mg/dL, Borderline high 160-189 mg/dL, High >189 mg/dL, Very high Secondary prevention optimal LDL Cholesterol levels are recommended to be <70 mg/dL LDL cholesterol is calculated using the Mar-NIH equation. Performed By: #### L IPNF ####[facility] LABCLIA [id number] [address] OF [facility] LDL/HDL RATIO, NF 2.05 mg/dL Normal <2.54 [facility] Comment on above: Order Comment: Grazyna anton Type: BLOOD SPECIMENOrdering Facility: [facility] Address: [address] [place] [address] Result Comment: Refe rence: 1. National Cholesterol Education Program ATP III Guideline At-A-Glance Quick Desk Reference: National Heart, Lung, and Blood [place]. National Institutes of Health. 2001: NIH Publication No. 01-3305. 2. An International Atherosclerosis Society position paper: global recommendations for the management of dyslipidemia: executive summary, Atherosclerosis. 2014: 232(2):410-413. Performed By: #### L IPNF ####[facility] LABCLIA [id number] [place] [address] [place] NON HDL CHOL, NF 101 mg/dL Normal <130 [facility] Comment on above: Order Comment: Speci men Type: BLOOD SPECIMENOrdering Facility: [facility] Address: [address] [place] [address] Result Comment: <130 mg/dL, Optimal 130-159 mg/dL, Near optimal/above optimal 160-189 mg/dL, Borderline high 190-219 mg/dL, High >219 mg/dL, Very high Secondary prevention optimal non HDL Cholesterol levels are recommended to be <100 mg/dL Performed By: #### L IPNF ####[facility] LABCLIA [id number] [place] [address] [place] T CHOL/HDL RATIO NF 3.46 mg/dL Normal <5.[address] [facility] Comment on above: Order Comment: Speci men Type: BLOOD SPECIMENOrdering Facility: [facility] Address: [address] [place] [address] Performed By: #### L IPNF ####[facility] LABCLIA [id number] [place] [address] [place] TRIGLYCERIDES, NF 91 mg/dL Normal <150 [facility] Comment on above: Order Comment: Speci men Type: BLOOD SPECIMENOrdering Facility: [facility] Address: [address] [place] [address] Result Comment: <150 mg/dL, Normal 150-199 mg/dL, Borderline high 200-499 mg/dL, High >499 mg/dL, Very high Performed By: #### L IPNF ####[facility] LABCLIA [id number] [place] [address] [place] VLDL CHOLESTEROL, NF 14 mg/dL Normal <30 [facility] Comment on above: Order Comment: Speci men Type: BLOOD SPECIMENOrdering Facility: [facility] Address: [address] [place] [address] Performed By: #### L IPNF ####[facility] LABCLIA [id number] [address] [address] [place] CNOVon 01-29-2025 CNOV Office Visit (FAMPWS ) -------- LAURENCE KOROMA ([id number]) 1950 F Date Time Provider Department 01/29/25 1:20 PM KATIE CHAUDHARI During your visit today, we recorded the following information about you: Pulse Blood pressure Weight 96/minute 108/64 46 kg Katie Chaudhari APRN.CARDROOM MANAGER 01/29/2025 1:31 PM Signed Chief Complaint Patient presents with: ER F/U HPI Laurence Koroma is a 74 year old female who presents here today for Above Complaints.. Patient presents for ER follow up. Patient was diagnosed with diverticulitis and started on cipro and flagyl. Patient reports she began having frequent episodes of diarrhea just in the morning since starting antibiotics. Patient does have a history of Cdiff and is concerned she may have it again. Past medical history, appointments, medications, allergies reviewed. [...] US 07/2022 LALO (generalized anxiety disorder) 12/29/2020 History of Clostridium difficile colitis 11/20/2023 Due to antibiotics. May need Vanco at same time as antibiotics to prevent recurrence. Would do Vanco 125 mg a day while on an antibiotic. 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 hydroCHLOROthiazide 12.5 mg capsule Take 1 capsule by mouth once daily. Potassium Chloride (KLOR-CON 8) 8 mEq tablet Take 1 tablet by mouth two times a day. zolpidem (AMBIEN) 10 mg Take 1 tablet by mouth at bedtime as needed for up to 180 days. FOR INSOMNIA multivit,iron,minerals/l utein (CENTRUM SILVER ULTRA WOMEN'S ORAL) Take by mouth. Take one tablet daily fluticasone (FLONASE) 50 mcg/actuation nasal spray Use 2 Sprays in each nostril once daily. Rinse mouth after use. alendronate (FOSAMAX) 70 mg tablet Take 1 tablet by mouth one time a week. In AM with cup of water on empty stomach. Nothing else by mouth and stay upright for 30 min. L.acid/L.casei/B.bif/B.l on/FOS (PROBIOTIC BLEND ORAL) Take by mouth. acyclovir (ZOVIRAX) 800 mg tablet 1 tablet three times daily. (Patient taking differently: 800 mg as needed.) aspirin, enteric coated (ASPIRIN, ENTERIC COATED) 81 mg EC tablet Take 1 tablet by mouth once daily. loratadine (CLARITIN) 10 mg tablet Take 1 tablet by mouth once daily. No current facility-administered medications on file prior to visit. Social History Social History Tobacco Use Smoking status: Never Smokeless tobacco: Never Vaping Use Vaping status: Never Used Substance Use Topics Alcohol use: No Drug use: No Review of Symptoms REVIEW OF SYSTEMS SEE HPI EXAM: BP 108/64 Pulse 96 Wt 46 kg (101 lb 6.6 oz) BMI 20.48 kg/m? General Appearance: Well appearing, alert, in no acute distress, well-hydrated, well nourished. Abdomen: Positive findings: tenderness moderate LLQ. Health Maint (more content not included)... Normal [facility] 01-27-2025 [facility] Telephone (FAMPWS) -------- LAURENCE KOROMA ([id number]) 1950 F Date Time Provider Department 01/27/25 [facility] During your visit today, we recorded the following information about you: Margaret Reyes, RN 01/27/2025 10:50 AM Signed Patient went to [facility] ER yesterday and was diagnosed with diverticulitis. Was ordered Cipro and Flagyl Patient made ER F/U appt for this Sunday with Katie Chaudhari CNP, as advised. Patient reports that the last two times she was given antibiotics like this, she developed C-Diff, causing hospitalization thae last time, which was in 2022. She has began the Cipro and Flagyl yesterday as ordered by [facility] and this morning has began with watery and loose stools. She expresses concern for developing C-Diff. Hydration has been encouraged along with a review of what foods to avoid. She started taking a probiotoc, called [employer]. Patient asking provider if there is anything she should be doing or watching for in the mean time between now and her appt with Katie on Sunday? She wants to avoid getting C-Diff again or having to go back to the hospital in the future. GABBY Garsia Danielle, WAYLON.CARDROOM MANAGER 01/27/2025 12:01 PM Signed Unfortunately Cdiff can occur with any antibiotic use. Would recommend patient stay well hydrated and keep track of amount of loose stools each day. Elmira Amos MA 01/27/2025 12:30 PM Signed Call to patient, received VM. LM to return call to office and speak with Triage Nurse. Please update pt on Provider's response below. MISHEL Ventura M Robin, RN 01/27/2025 1:22 PM Signed Pt returned call and given provider's message below with verbalized understanding. Corrie Koroma RN 01/28/2025 8:48 AM Signed Patient calls and wanted provider to know that she has had diarrhea yesterday and today. Patient wanted provider aware of this. Corrie Koroma RN Allergies As of Date: 01/27/2025 Noted Allergy Reaction SULFA (SULFONAMIDE ANTIBIOTICS) 05/15/2007 2 - Rash AUGMENTIN (AMOXICILLIN-POT CLAVUL*05/15/2007 5 - Intolerance Comments: Patient had diarrhea and possibly a mild skin rash with prior use of Augmentin. She has subsequently taken amoxicillin and tolerated this without adverse reaction. CATS 12/24/2009 5 - Intolerance ECHINACEA 02/22/2016 7 - Swelling POLLEN 12/24/2009 5 - Intolerance RAGWEED 12/24/2009 5 - Intolerance Date Reviewed: 09/30/2024 Reviewed by: Chey Ponce MA - Fully Assessed Reason for Visit: Patient Update [1234] Prescriptions as of 01/28/2025 - lisinopril (ZESTRIL) 40 mg tablet Take 0.5 tablets by mouth two times a day. - hydroCHLOROthiazide 12.5 mg capsule Take 1 capsule by mouth once daily. - Potassium Chloride (KLOR-CON 8) 8 mEq tablet Take 1 tablet by mouth two times a day. - zolpidem (AMBIEN) 10 mg Take 1 tablet by mouth at bedtime as needed for up to 180 days. FOR INSOMNIA - multivit,iron,minerals/l utein (CENTRUM SILVER ULTRA WOMEN'S ORAL) Take by mouth. Take one tablet daily - fluticasone (FLONASE) 50 mcg/actuation nasal spray Use 2 Sprays in each nostril once daily. Rinse mouth after use. - alendronate (FOSAMAX) 70 mg tablet Take 1 tablet by mouth one time a week. In AM with cup of water on empty stomach. Nothing else by mouth and stay upright for 30 min. - L.acid/L.casei/B.bif/B.l on/FOS (PROBIOTIC BLEND ORAL) Take by mouth. - acyclovir (ZOVIRAX) 800 mg tablet 1 tablet three times daily. - aspirin, enteric coated (ASPIRIN, ENTERIC COATED) 81 mg EC tablet Take 1 tablet by mouth once daily. - loratadine (CLARITIN) 10 mg tablet Take 1 tablet by mouth once daily. 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] 11/30/2009 Cheilitis: lower lip: along jennifer to lip m*12/03/2011 Lichen Planus: lower lip [L43.9] 12/03/2011 04/25/2012 Candidal cheilitis [B37.83] 12/03/2011 Actinic cheilitis [L56.8] 12/03/2011 04/25/2012 Pruritus [L29.9] 12/03/2011 Seborrheic Keratosis [L82.1] 12/03/2011 04/25/2012 Essential hypertension, benign [I10] 06/13/2012 Chronic right-sided low back pain [M54.50, G89.*10/03/2016 Insomnia [G47.00] 11/29/2016 Lactose intolerance [E73.9] 11/29/2016 Encounter for gynecological examination without*07/21/2017 Encounter for screening mammogram for breast ca*07/21/2017 Encounter for Medicare annual wellness exam [Z0*07/21/2017 Chronic allergic rhinitis [J30.9] 07/21/2017 Elevated plasma metanephrines [R79.89] 01/27/2018 Screening for colon cancer [Z12.11] 11/13/2018 Elevated hemoglobin A1c [R73.09] 05/14/2019 LALO (generalized anxiety disorder) [F41.1] 12/29/2020 Medication management [Z79.899] 07/06/2021 Advance directive discussed with patient [Z71.8*07/26/2022 Mild AI (aortic insuffi (more content not included)... Normal [facility] 12 Lead EKGon 01-26-2025 12 Lead EKG [facility] Cardi[facility] Services [address] [place] [address] 12 Lead EKG 01/26/25 0735 MR#: [id number] Acct: [id number] Name: LAURENCE KOROMA Rep #: [id number] : 1950 74 From: Enoch Malik MD Attending Dr: Status: DEP ER Ordering Dr: Isaura Shipley DO Date: 01/26/25 Location: ED Sex: F C Admitted: Test Reason : GENERAL Blood Pressure : */* mmHG Vent. Rate : 102 BPM Atrial Rate : 102 BPM P-R Int : 164 ms QRS Dur : 80 ms QT Int : 332 ms P-R-T Axes : 68 74 71 degrees QTcB Int : 432 ms Sinus tachycardia Otherwise normal ECG Confirmed by Enoch Malik ([id number]), manuscript editor KRISTEN CRUZ ([id number]) on 01/27/2025 11:25:33 AM Referred By: Confirmed By: Enoch Malik 01/27/25 1125 Date Enoch Malik MD CC: Dr. Fabian Mcmullen MD; Dr. Isaura Shipley DO Signed Normal [facility] Abdomen/Pelvis W IV Cont ONL Yon 01-26-2025 Abdomen/Pelvis W IV Cont ONLY [facility] Imaging Services [address] [place] [address] Abdomen/Pelvis W IV Cont ONLY MR#: [id number] Acct: [id number] Name: LAURENCE KOROMA Rep #: [id number] : 1950 F 74 From: Ca Pérez PCP: Dr. Fabian Mcmullen MD Status: DEP Study: Abdomen/Pelvis W IV Cont ONLY Date of Exam: Exam# [id number] Ordering Dr: Isaura Shipley DO PROCEDURE: ABDOMEN/PELVIS W IV CONT ONLY 01/26/2025 REASON FOR EXAM: LLQ ABDOMINAL PAIN 4 days. Chills. History of diverticulitis. TECHNIQUE: Abdomen and pelvis CT with intravenous contrast. Coronal and Sagittal reconstruction series were provided. PATIENT PREPARATION: Per protocol One or more dose reduction techniques were used (e.g., Automated exposure control, adjustment of the mA and/or kV according to patient size, use of iterative reconstruction technique. 75 mL of Isovue-300 contrast was utilized for this examination. RADIATION DOSE SUMMARY: I do not see where this was calculated. COMPARISON: None FINDINGS: Lung bases: Unremarkable Liver: Normal size. No mass. Gallbladder: Calcified gallstone is seen there does not appear to be any pericholecystic fluid. Spleen: Normal size. Pancreas: Normal size without evidence of mass surrounding inflammation or ductal dilation. Adrenals: Unremarkable Kidneys: A 5 mm cyst is seen in the superior pole of the right kidney. A 7 mm cyst is seen in the midpole of the right kidney. The left kidney appears unremarkable Bladder: Is incompletely distended. No obvious filling defects are seen within the bladder. Reproductive Organs: Unremarkable Bowel: Diverticulosis is seen involving the transverse colon and descending colon. There appears to be mild diverticulitis involving the sigmoid colon. There is no abscess seen. There is no free air seen. Appendix: The appendix is not identified. There is no inflammatory process identified in the right lower quadrant to suggest appendicitis. Lymph nodes: Unremarkable. Vasculature: Mild diffuse atherosclerotic calcifications are noted. Bones: Degenerative changes of the lumbar spine are noted. There is a dextroscoliosis of the lumbar spine. Degenerative changes of the L3-L4, L4-L5, and L5-S1 disc spaces are noted. CT/Abdomen/Pelvis W IV Cont ONLY IMPRESSION: 1. There appears to be mild diverticulitis of the sigmoid colon. There is no free air seen. There is no abscess seen. There is no ascites seen. 2. Gallstone 3. 2 right renal cysts 4. Arteriosclerotic vascular disease of the aorta 5. Degenerative changes and levoscoliosis of the lumbar spine. Degenerative disc disease is seen involving L3-L4, L4-L5, and L5-L6 Reading Location: [id number] CC: Dr. Fabian Mcmullen MD; Dr. Isaura Shipley DO Presser Hand: Signed Normal [facility] Absolute lymphocyte countOrd ered By: Isaura Shipley on 01-26-2025 Lymphocytes Auto (Unsp spec) [#/Vol] 1.91 10*3/uL 0.83-4.51 [facility] Absolute neutrophil countOrd ered By: Isaura Shipley on 01-26-2025 Neutrophils (Bld) [#/Vol] 9.7 10*3/uL High 2.0-7.7 [facility] Anion gap in Serum or Plasma Ordered By: Isaura Shipley on 01-26-2025 Anion gap [Moles/Vol] 10 mmol/L 5-15 [facility] Automated lymphocyte count a s percentage of total leukocytesOrdered By: Isaura Shipley on 01-26-2025 Lymphocytes/100 WBC Auto (Unsp spec) 14.9 % Low 19-41 [facility] BUN/creatinine ratioOrdered By: Isaura Shipley on 01-26-2025 Urea nitrogen/Creatinine [Mass ratio] 19.8 mg/mg 10-20 [facility] Basic Metabolic Profile (BMP )on 01-26-2025 BUN/CRE 19.8 RATIO Normal 10-20 [facility] Comment on above: Performed By: #### L 503.6005, L500.2500, L100.0100 #### [facility] [address] [place], [address] Calcium [Mass/Vol] 9.5 mg/dL Normal 7.6-11.0 [facility] Comment on above: Performed By: #### L 503.6005, L500.2500, L100.0100 #### [facility] [address] [place], [address] Chloride [Moles/Vol] 102 mmol/L Normal 98-108 [facility] Comment on above: Performed By: #### L 503.6005, L500.2500, L100.0100 #### [facility] [address] [place], [address] CO2 [Moles/Vol] 22.7 mmol/L Normal 21.0-32.0 [facility] Comment on above: Performed By: #### L 503.6005, L500.2500, L100.0100 #### [facility] [address] [place], [address] Creatinine [Mass/Vol] 1.01 mg/dL Normal 0.70-1.20 [facility] Comment on above: Performed By: #### L 503.6005, L500.2500, L100.0100 #### [facility] [address] [place], [address] ECRCL 34.04 ml/min Low 50-250 [facility] Comment on above: Performed By: #### L 503.6005, L500.2500, L100.0100 #### [facility] [address] [place], [address] GAP 10 Normal 5-15 [facility] Comment on above: Performed By: #### L 503.6005, L500.2500, L100.0100 #### [facility] [address] [place], [address] GFR/1.73 sq M.predicted among non-blacks MDRD (S/P/Bld) [Vol rate/Area] 58 mL/min/{1.73_m2} Low >60 [facility] Comment on above: Result Comment: mL/m in/1.73m2 CKD-EPI Creatinine Equation (2020) Performed By: #### L 503.6005, L500.2500, L100.0100 #### [facility] [address] [place], [address] Glucose [Mass/Vol] 116 mg/dL High 70-99 [facility] Comment on above: Performed By: #### L 503.6005, L500.2500, L100.0100 #### [facility] [address] [place], [address] Potassium [Moles/Vol] 3.6 mmol/L Normal 3.3-5.1 [facility] Comment on above: Performed By: #### L 503.6005, L500.2500, L100.0100 #### [facility] [address] [place], [address] Sodium [Moles/Vol] 135 mmol/L Normal 133-145 [facility] Comment on above: Performed By: #### L 503.6005, L500.2500, L100.0100 #### [facility] [address] [place], [address] Urea nitrogen [Mass/Vol] 20 mg/dL High 4-19 [facility] Comment on above: Performed By: #### L 503.6005, L500.2500, L100.0100 #### [facility] [address] [place], [address] Basophil percentageOrdered B y: Remus Quinten on 01-26-2025 Basophils/100 WBC (Bld) 0.1 % 0-1 [facility] Bilirubin Test strip Ql (U)O rdered By: Remus Ungradha on 01-26-2025 Bilirubin Ql (U) Negative Negative [facility] CBC W/Diff, Automatedon 01-13 Absolute Lymph 1.91 X10 3/uL Normal 0.83-4.51 [facility] Comment on above: Performed By: #### L 503.6005, L500.2500, L100.0100 #### [facility] [address] [place], [address] Absolute Neut 9.7 X10 3/uL High 2.0-7.7 [facility] Comment on above: Performed By: #### L 503.6005, L500.2500, L100.0100 #### [facility] [address] [place], [address] Basophils/100 WBC (Bld) 0.1 % Normal 0-1 [facility] Comment on above: Performed By: #### L 503.6005, L500.2500, L100.0100 #### [facility] [address] [place], [address] Eosinophils/100 WBC (Bld) 0.3 % Normal 0-5 [facility] Comment on above: Performed By: #### L 503.6005, L500.2500, L100.0100 #### [facility] [address] [place], [address] Erythrocyte distribution width (RBC) [Ratio] 14.5 % Normal 11.6-14.6 [facility] Comment on above: Performed By: #### L 503.6005, L500.2500, L100.0100 #### [facility] [address] [place], [address] Hematocrit (Bld) [Volume fraction] 34.5 % Low 37-47 [facility] Comment on above: Performed By: #### L 503.6005, L500.2500, L100.0100 #### [facility] [address] [place], [address] Hemoglobin (Bld) [Mass/Vol] 11.5 g/dL Low 12.0-15.0 [facility] Comment on above: Performed By: #### L 503.6005, L500.2500, L100.0100 #### [facility] [address] [place], [address] IG% 0.500 Normal 0.0-0.9 [facility] Comment on above: Result Comment: IG% - Immature Granulocytes (promyelocytes, myelocytes and metamyelocytes) > 1% indicates that a LEFT SHIFT is Present. Performed By: #### L 503.6005, L500.2500, L100.0100 #### [facility] [address] [place], [address] Lymphocytes/100 WBC (Bld) 14.9 % Low 19-41 [facility] Comment on above: Performed By: #### L 503.6005, L500.2500, L100.0100 #### [facility] [address] [place], [address] MCH (RBC) [Entitic mass] 30.0 pg Normal 27.0-32.0 [facility] Comment on above: Performed By: #### L 503.6005, L500.2500, L100.0100 #### [facility] [address] [place], [address] MCHC (RBC) [Mass/Vol] 33.3 g/dL Normal 32-36 [facility] Comment on above: Performed By: #### L 503.6005, L500.2500, L100.0100 #### [facility] [address] [place], [address] MCV (RBC) [Entitic vol] 90.1 fL Normal 81-99 [facility] Comment on above: Performed By: #### L 503.6005, L500.2500, L100.0100 #### [facility] [address] [place], [address] Monocytes/100 WBC (Bld) 8.7 % Normal 0-10 [facility] Comment on above: Performed By: #### L 503.6005, L500.2500, L100.0100 #### [facility] [address] [place], [address] Neutrophils/100 WBC (Bld) 75.5 % High 47-70 [facility] Comment on above: Performed By: #### L 503.6005, L500.2500, L100.0100 #### [facility] [address] [place], [address] Nucleated RBC (Bld) [#/Vol] 0 10*3/uL Normal 0-5 [facility] Comment on above: Performed By: #### L 503.6005, L500.2500, L100.0100 #### [facility] [address] [place], [address] Platelet mean volume (Bld) [Entitic vol] 10.4 fL Normal 6.2-12.0 [facility] Comment on above: Performed By: #### L 503.6005, L500.2500, L100.0100 #### [facility] [address] [place], [address] Platelets (Bld) [#/Vol] 270 10*3/uL Normal 150-450 [facility] Comment on above: Performed By: #### L 503.6005, L500.2500, L100.0100 #### [facility] [address] [place], [address] RBC (Bld) [#/Vol] 3.83 10*6/uL Low 4.2-5.4 [facility] Comment on above: Performed By: #### L 503.6005, L500.2500, L100.0100 #### [facility] [address] [place], [address] RDW SD 47.8 fl High 35.1-43.9 [facility] Comment on above: Performed By: #### L 503.6005, L500.2500, L100.0100 #### [facility] [address] [place], [address] WBC (Bld) [#/Vol] 12.8 10*3/uL High 4.4-11.0 [facility] Comment on above: Performed By: #### L 503.6005, L500.2500, L100.0100 #### [facility] [address] [place], [address] Carbon dioxide, total [Moles /volume] in Central venous bloodOrdered By: Isaura Shipley on 01-26-2025 CO2 [Moles/Vol] 22.7 mmol/L 21.0-32.0 [facility] Chloride assayOrdered By: Toshia Shipley on 01-26-2025 Chloride [Moles/Vol] 102 mmol/L 98-108 [facility] Emergency Department Summary on 01-26-2025 Emergency Department Summary [facility] Medical Records Department [address] [place] [address] Emergency Department Summary 01/26/25 MR#: [id number] Acct: [id number] Name: LAURENCE OKROMA Rep #: [id number] : 1950 74 From: Isaura Shipley DO PCP: Dr. Fabian Mcmullen MD Status:DEP ER Location: ED HPI HPI - GI History of Present Illness Chief Complaint: Abd Pain Detail of Chief Complaint: Abdominal pain Informant: patient Narrative Narrative: Patient presents to the emergency department complaint of abdominal pain that initially started 3 days ago. Pain located in the left lower quadrant and currently rates it an 8 out of 10. She denies fever although she had some sweats yesterday. Pain worse with certain movements. She has had similar pain in the past when she has had diverticulitis. Last episode of diverticulitis was in 2022. Patient denies any dysuria or frequency or urgency. She denies blood in her stool or black tarry stool. She has had no vomiting. [facility] Medical History EVELYN (acute kidney injury) Aortic insufficiency Chronic back pain Dehydration Diarrhea Diverticulitis Elevated plasma metanephrines Essential hypertension Fatigue LALO (generalized anxiety disorder) Gastroenteritis Hemorrhoid History of Clostridium difficile colitis Hypotension Insomnia Nausea Near syncope Osteoarthritis Osteoporosis Sleep apnea Syncope Weight loss Home Medications ???Medication ???Instructions ???Recorded ???Last Taken ???Type multivitamin 1 ea PO DAILY supplement 10/11/15 04/21/23 History hydrochlorothiazide 12.5 mg capsule 12.5 mg PO QDAY blood pressure 02/14/18 04/26/23 History calcium carbonate 600 mg PO BID supplement 03/15/23 04/21/23 History alendronate 70 mg tablet 70 mg PO QWEEK bones 04/18/2301/04 History lisinopril 40 mg tablet 40 mg PO DAILY blood pressure 03/0604/26/23 History loratadine 10 mg tablet (Claritin) 10 mg PO DAILY allergies 3 04/26/23 History acyclovir 800 mg tablet 800 mg PO DAILY PRN FEVER BLISTER 07/11/23 Unknown History aspirin 81 mg chewable tablet 1 tab PO DAILY 11/27/23 Unknown Olayinka mathias cholecalciferol (vitamin D3) 10 10 mcg PO BID 11/27/23 Unknown His tory mcg (400 unit) capsule (Vitamin D3) fluticasone propionate 50 2 spray intranasal BID 11/27/23 Un known History mcg/actuation nasal spray,suspension potassium chloride 8 mEq 8 meq PO DAILY 11/27/23 Unknown Olayinka mathias capsule,extended release ciprofloxacin HCl 500 mg tablet 500 mg PO BID #14 TABLETS 01/26/25 Unknown Rx metronidazole 500 mg tablet 500 mg PO Q8H 7 days #21 tabs 01/13 02/06 Unknown Rx Allergy/AdvReac Type Severity Reaction Status Date / Time ragweed pollen Allergy Intermediate Shortness Verified 01/26/25 07:16 of breath Sulfa (Sulfonamide Allergy Intermediate Hives Verified 01/26/25 07:16 Antibiotics) azithromycin (From Zithromax AdvReac Nausea Verified 01/26/25 07:16 Z-Jael) Family History Mother Hypertension Father Heart disease Cancer skin cancer Grandmother Heart disease CVA (cerebral vascular accident) Surgical History History of colonoscopy History of tonsillectomy Social History Smoking Status: Never smoker alcohol intake: never substance use type: does not use ROS ROS ED Review of Systems ROS Unobtainable: other Constitutional Constitutional ED: Reports lethargy; Denies chills, fever(s), sweats or weight loss Eyes Eyes: Denies blurry vision, change in vision or diplopia ENT ENT ED: Denies rhinorrhea or sore throat Cardiovascular Cardiovascular: Denies chest pain, orthopnea or racing heartbeat Respiratory/Chest Respiratory/Chest: Denies cough, dyspnea, dyspnea on exertion, orthopnea or sputum Gastrointestinal Gastrointestinal: Reports abdominal pain; Denies diarrhea, nausea or vomiting Genitourinary Genitourinary ED: Denies dysuria, hematuria or urinary frequency Musculoskeletal Musculoskeletal: Denies arthralgias, back pain, myalgias or neck pain Integumentary Denies abscess, Abrasions or rash Neurologic Neurologic: Denies headache(s) or weakness Psychiatric Psychiatric: Denies anxiety, depression or suicidal thoughts Endocrine Endocrinology: Denies polydipsia, polyphagia or polyuria Hematologic/Lymphatic Hematologic/Lymphatic: Denies easy bleeding, easy bruising or lymphadenopathy Allergic/Immunologic Allergic/Immunologic ED: Denies mouth swelling, tongue swelling or urticaria EXAM Physical Exam Const Vital Signs: 01/26/25 07:14 01/26/25 07:16 01/26/25 08:16 Temperature 98.9 F 98.1 (more content not included)... Normal [facility] Eosinophil percentageOrdered By: Isaura Shipley on 01-26-2025 Eosinophils/100 WBC (Bld) 0.3 % 0-5 [facility] Epithelial cells.squamous LM Ql (Urine sed)Ordered By: Isaura Shipley on 01-26-2025 Epithelial cells.squamous LM.HPF (Urine sed) [#/Area] 0 /[HPF] 5-10 [facility] Erythrocyte distribution wid th (RBC) [Ratio]Ordered By: Isaura Shipley on 01-26-2025 Erythrocyte distribution width (RBC) [Entitic vol] 47.8 fL High 35.1-43.9 [facility] Erythrocyte distribution wid th ratioOrdered By: Isaura Shipley on 01-26-2025 Erythrocyte distribution width (RBC) [Ratio] 14.5 % 11.6-14.6 [facility] Erythrocyte distribution wid th standard deviationOrdered By: Remus Ungradha on 01-26-2025 Erythrocyte distribution width (RBC) [Ratio] 47.8 fl High 35.1-43.9 [facility] Estimation of creatinine jacobo aranceOrdered By: Isaura Shipley on 01-26-2025 Estimated Creatinine Clearance Calc 34.04 ml/min Low 50-250 [facility] GFR/1.73 sq M.predicted omer g non-blacks MDRD (S/P/Bld) [Vol rate/Area]Ordered By: Isaura Shipley on 01-26-2025 Estimated GFR (MDRD) Non-Af Amer 58 Low >60 [facility] Comment on above: mL/min/1.73m2 CKD-EP I Creatinine Equation (2020) Glomerular filtration rate ( GFR) estimation/1.73 sq m using serum, plasma, or whole bOrdered By: Isaura Shipley on 01-26-2025 GFR/1.73 sq M.predicted among non-blacks MDRD (S/P/Bld) [Vol rate/Area] 58 mL/min/{1.73_m2} Low >60 [facility] Comment on above: mL/min/1.73m2 CKD-EP I Creatinine Equation (2020) Glucose Ql (U)Ordered By: Toshia Shipley on 01-26-2025 Urine Glucose (UA) Normal mg/dl Normal [facility] Hematocrit Auto (Bld) [Volum e fraction]Ordered By: Isaura Shipley 01-26-2025 Hematocrit (Bld) [Volume fraction] 34.5 % Low 37-47 [facility] Hemoglobin measurementOrdere d By: Isaura Shipley on 01-26-2025 Hemoglobin (Bld) [Mass/Vol] 11.5 g/dL Low 12.0-15.0 [facility] Immature granulocytes/100 WB C Auto (Bld)Ordered By: Isaura Shipley 01-26-2025 Immature granulocytes/100 WBC (Bld) 0.500 % 0.0-0.9 [facility] Comment on above: IG% - Immature Granu locytes (promyelocytes, myelocytes and metamyelocytes) > 1% indicates that a LEFT SHIFT is Present. Ketones Test strip Ql (U)Ord ered By: Isaura Shipley on 01-26-2025 Ketones Ql (U) Negative Negative [facility] Lactic Acidon 01-26-2025 Lactate [Moles/Vol] 1.4 mmol/L Normal 0.0-2.0 [facility] Comment on above: Order Comment: Y Performed By: #### L 503.6005, L500.2500, L100.0100 #### [facility] [place], [address] Lactic acid measurementOrder ed By: Isaura Shipley on 01-26-2025 Lactate [Moles/Vol] 1.4 mmol/L 0.0-2.0 [facility] Lymphocytes Auto (Unsp spec) [#/Vol]Ordered By: Isaura Shipley on 01-26-2025 Lymphocytes (Bld) [#/Vol] 1.91 10*3/uL 0.83-4.5 1 [facility] Lymphocytes/100 WBC Auto (Un sp spec)Ordered By: Isaura Shipley on 01-26-2025 Lymphocytes/100 WBC (Bld) 14.9 % Low 19-41 [facility] MCV (mean corpuscular volume ) determinationOrdered By: Isaura Shipley on 01-26-2025 MCV (RBC) [Entitic vol] 90.1 fL 81-99 [facility] Mean corpuscular hemoglobin (MCH) determinationOrdered By: Isaura Shipley on 01-26-2025 MCH (RBC) [Entitic mass] 30.0 pg 27.0-32.0 [facility] Mean corpuscular hemoglobin concentration (MCHC) determinationOrdered By: Isaura Shipley on 01-26-2025 MCHC (RBC) [Mass/Vol] 33.3 g/dL 32-36 [facility] Mean platelet volume determi nationOrdered By: Isaura Shipley on 01-26-2025 Platelet mean volume (Bld) [Entitic vol] 10.4 fL 6.2-12.0 [facility] Microscopic analysis of urin e for red blood cells (RBC)Ordered By: Isaura Shipley on 01-26-2025 Microscopic analysis of urine for red blood cells (RBC) 0 SEEN /hpf 0-5 [facility] Urine RBC 0 SEEN /hpf 0-5 [facility] Monocyte percentageOrdered B y: Rem Ungradha on 01-26-2025 Monocytes/100 WBC (Bld) 8.7 % 0-10 [facility] Mucus LM Ql (Urine sed)Order ed By: Rem Ungradha on 01-26-2025 Mucus Ql (Urine sed) 0 SEEN /hpf [facility] Neutrophil percentageOrdered By: Remus Ungur on 01-26-2025 Neutrophils/100 WBC (Bld) 75.5 % High 47-70 [facility] Nitrite Test strip Ql (U)Ord ered By: Remus Ungur on 01-26-2025 Nitrite Ql (U) Negative Negative [facility] Nucleated red blood cell per centageOrdered By: Rem Ungur on 01-26-2025 Nucleated RBC/100 WBC (Bld) [Ratio] 0 % 0-5 [facility] Platelet countOrdered By: Toshia Shipley on 01-26-2025 Platelets (Bld) [#/Vol] 270 10*3/uL 150-450 [facility] Potassium (Unsp spec) [Mass/ Vol]Ordered By: Rem Ungradha on 01-26-2025 Potassium [Moles/Vol] 3.6 mmol/L 3.3-5.1 [facility] Potassium measurement (mass/ volume)Ordered By: Rem Ungradha on 01-26-2025 Potassium (Unsp spec) [Mass/Vol] 3.6 mmol/L 3.3-5.1 [facility] Protein Test strip Ql (U)Ord ered By: Remus Ungradha on 01-26-2025 Protein Ql (U) 15 mg/dl High Negative [facility] RBC Auto (Bld) [#/Vol]Ordere d By: Remus Ungur on 01-26-2025 RBC (Bld) [#/Vol] 3.83 10*6/uL Low 4.2-5.4 [facility] Serum creatinine measurement (mass/volume)Ordered By: Rem Ungradha on 01-26-2025 Creatinine [Mass/Vol] 1.01 mg/dL 0.70-1.20 [facility] Serum glucose measurement (m ass/volume)Ordered By: Rem Ungradha on 01-26-2025 Glucose [Mass/Vol] 116 mg/dL High 70-99 [facility] Serum or plasma calcium nikunj urement (mass/volume)Ordered By: Isaura Shipley on 01-26-2025 Calcium [Mass/Vol] 9.5 mg/dL 7.6-11.0 [facility] Serum or plasma urea nitroge n measurement (mass/volume)Ordered By: Isaura Shipley on 01-26-2025 Urea nitrogen [Mass/Vol] 20 mg/dL High 4-19 [facility] Sodium levelOrdered By: Aicha Shipley on 01-26-2025 Sodium [Moles/Vol] 135 mmol/L 133-145 [facility] Squamous epithelial cells de tection in urine sediment by light microscopyOrdered By: Isaura Shipley on 01-26-2025 Epithelial cells.squamous LM Ql (Urine sed) 0 SEEN /hpf - [facility] Urinalysis, Completeon 01-26 BACTERIA 1+ /hpf Normal None Seen [facility] Comment on above: Order Comment: CLEAN CATCH Performed By: #### L 400.0001 #### [facility] [address] [place], [address] WBC 0-5 SEEN Normal 0-5 [facility] Comment on above: Order Comment: CLEAN CATCH Performed By: #### L 400.0001 #### [facility] [address] [place], [address] EPI,SQUAMOUS 0 SEEN Normal 5-10 [facility] Comment on above: Order Comment: CLEAN CATCH Performed By: #### L 400.0001 #### [facility] [address] [place], [address] Mucus Ql (Urine sed) 0 SEEN Normal [facility] Comment on above: Order Comment: CLEAN CATCH Performed By: #### L 400.0001 #### [facility] [address] [place], [address] RBC 0 SEEN Normal 0-5 [facility] Comment on above: Order Comment: CLEAN CATCH Performed By: #### L 400.0001 #### [facility] [address] [place], [address] Urine blood detectionOrdered By: Remus Quinten on 01-26-2025 Urine Occult Blood Negative Negative [facility] Urine clarityOrdered By: Rem us Quinten on 01-26-2025 Clarity (U) Sl. Cloudy Clear [facility] Urine color determinationOrd ered By: Remus Shipley on 01-26-2025 Color (U) Yellow Yellow [facility] Urine glucose detectionOrder ed By: Remus Quinten on 01-26-2025 Glucose Ql (U) Normal mg/dl Normal [facility] Urine leukocyte esterase det ection by dipstickOrdered By: Remus Shipley on 01-26-2025 Leukocyte esterase Test strip Ql (U) 25 /ul High Negative [facility] Urine pHOrdered By: Isaura Un gur on 01-26-2025 pH (U) 8.0 [pH] 5.0 - 8.0 [facility] Urine sediment bacteria coun t by microscopy (number/high power field)Ordered By: Isaura Shipley on 01-26-2025 Bacteria LM.HPF (Urine sed) [#/Area] 1 /[HPF] None Seen [facility] Urine specific gravity measu rementOrdered By: Remus Shipley on 01-26-2025 Specific gravity (U) [Rel density] 1.010 1.002-1.03 0 [facility] Urine urobilinogen measureme ntOrdered By: Remus Quinten on 01-26-2025 Urobilinogen Ql (U) Normal mg/dl Normal [facility] Urobilinogen Ql (U)Ordered B y: Remus Ungradha on 01-26-2025 Urine Urobilinogen Normal mg/dl Normal [facility] White blood cell (WBC) count Ordered By: Remus Quinten on 01-26-2025 WBC (Bld) [#/Vol] 12.8 10*3/uL High 4.4-11.0 [facility] White blood cell countOrdere d By: Remus Quinten on 01-26-2025 Urine WBC 0-5 SEEN /hpf 0-5 [facility] White blood cell count 0-5 SEEN /hpf 0-5 [facility] CNOVon 09-30-2024 CNOV Office Visit (FAMPWS ) -------- LAURENCE KOROMA ([id number]) 1950 F Date Time Provider Department 09/30/24 10:20 AM KATIE CHAUDHARIPWS During your visit today, we recorded the following information about you: Pulse Respiration Blood pressure Weight 90/minute 14/minute 135/71 45.4 kg Katie Chaudhari, WAYLON.CARDROOM MANAGER 09/30/2024 10:32 AM Signed Chief Complaint Patient presents with: Cough HPI Laurence Koroma is a 73 year old female who presents here today for Above Complaints.. Patient presents for cough, sore throat, congestion x5 days. Patient reports she is feeling better, cough and sore throat continue. Taking coricidin, flonase, and mucinex along with salt water gargles. Past medical history, appointments, medications, allergies reviewed. [...] US 07/2022 LALO (generalized anxiety disorder) 12/29/2020 History of Clostridium difficile colitis 11/20/2023 Due to antibiotics. May need Vanco at same time as antibiotics to prevent recurrence. Would do Vanco 125 mg a day while on an antibiotic. Insomnia 11/29/2016 Lactose intolerance Lactose intolerance Mild [...] on File Prior to Visit Medication Sig zolpidem (AMBIEN) 10 mg Take 1 tablet by mouth at bedtime as needed for up to 180 days. FOR INSOMNIA lisinopril (ZESTRIL) 40 mg tablet Take 0.5 tablets by mouth two times a day. multivit,iron,minerals/l utein (CENTRUM SILVER ULTRA WOMEN'S ORAL) Take by mouth. Take one tablet daily hydroCHLOROthiazide 12.5 mg capsule Take 1 capsule by mouth once daily. fluticasone (FLONASE) 50 mcg/actuation nasal spray Use 2 Sprays in each nostril once daily. Rinse mouth after use. Potassium Chloride (KLOR-CON 8) 8 mEq tablet Take 1 tablet by mouth two times a day. alendronate (FOSAMAX) 70 mg tablet Take 1 tablet by mouth one time a week. In AM with cup of water on empty stomach. Nothing else by mouth and stay upright for 30 min. L.acid/L.casei/B.bif/B.l on/FOS (PROBIOTIC BLEND ORAL) Take by mouth. acyclovir (ZOVIRAX) 800 mg tablet 1 tablet three times daily. (Patient taking differently: 800 mg as needed.) aspirin, enteric coated (ASPIRIN, ENTERIC COATED) 81 mg EC tablet Take 1 tablet by mouth once daily. loratadine (CLARITIN) 10 mg tablet Take 1 tablet by mouth once daily. No current facility-administered medications on file prior to visit. Social History Social History Tobacco Use Smoking status: Never Smokeless tobacco: Never Vaping Use Vaping status: Never Used Substance Use Topics Alcohol use: No Drug use: No Review of Symptoms REVIEW OF SYSTEMS SEE HPI EXAM: BP 135/71 Pulse 90 Resp 14 Wt 45.4 kg (100 lb) SpO2 99% BMI 20.20 kg/m? General Appearance: Well appearing, alert, in no acute distress, well-hydrated, well nourished.. Nose/Sinuses: Nares normal, septum midline, mucosa normal, no drainage or sinus tenderness. Oropharynx: Lips, mucosa, and tongue n (more content not included)... Normal [facility] 09-29-2024 [facility] LAURENCE KOROMA ([id number]) 1950 F Date Time Provider Department 09/29/24 FABIAN MCMULLEN [facility] During your visit today, we recorded the following information about you: Fabian Mcmullen MD 09/29/2024 4:22 PM Signed Let patient know her bone strength study shows improvement. Cont the fosamax. Also make sure she is trying to get 2,000 international unit(s) 's of Vit D a day, Calcium 600-800 mg twice a day and walking for exercise. Corrie Koroma RN 09/29/2024 5:13 PM Signed Patient notified of results and provider's instructions. Patient verbalizes understanding. Provider had recommended that patient stop her vitamin D previously due to vitamin D levels being elevated. Patient has been taking [employer] brand of Calcium with Vitamin D3 600 mg with 400 international unit(s) of Vitamin D3. Patient asking if this is ok? Patient also has been taking the Centrum multiple that has 1,000 international unit(s) of vitamin D. Patient asking if taking the multiple and calcium if that is enough vitamin D? GABBY Polk Jeffrey A, MD 09/30/2024 10:20 AM Signed Let patient know what she is taking is good. Sol Lowery MA 09/30/2024 11:04 AM Signed Patient notified. Sol Lowery MA Allergies As of Date: 09/29/2024 Noted Allergy Reaction SULFA (SULFONAMIDE ANTIBIOTICS) 05/15/2007 2 - Rash AUGMENTIN (AMOXICILLIN-POT CLAVUL*05/15/2007 5 - Intolerance Comments: Patient had diarrhea and possibly a mild skin rash with prior use of Augmentin. She has subsequently taken amoxicillin and tolerated this without adverse reaction. CATS 12/24/2009 5 - Intolerance ECHINACEA 02/22/2016 7 - Swelling POLLEN 12/24/2009 5 - Intolerance RAGWEED 12/24/2009 5 - Intolerance Date Reviewed: 09/22/2024 Reviewed by: Elina Mckenzie LPN - Fully Assessed Reason for Visit: Results [95] Primary Visit Diagnosis:Age-related osteoporosis without current pathological fracture [M81.0] Prescriptions as of 09/30/2024 - zolpidem (AMBIEN) 10 mg Take 1 tablet by mouth at bedtime as needed for up to 180 days. FOR INSOMNIA - lisinopril (ZESTRIL) 40 mg tablet Take 0.5 tablets by mouth two times a day. - multivit,iron,minerals/l utein (CENTRUM SILVER ULTRA WOMEN'S ORAL) Take by mouth. Take one tablet daily - hydroCHLOROthiazide 12.5 mg capsule Take 1 capsule by mouth once daily. - fluticasone (FLONASE) 50 mcg/actuation nasal spray Use 2 Sprays in each nostril once daily. Rinse mouth after use. - Potassium Chloride (KLOR-CON 8) 8 mEq tablet Take 1 tablet by mouth two times a day. - alendronate (FOSAMAX) 70 mg tablet Take 1 tablet by mouth one time a week. In AM with cup of water on empty stomach. Nothing else by mouth and stay upright for 30 min. - L.acid/L.casei/B.bif/B.l on/FOS (PROBIOTIC BLEND ORAL) Take by mouth. - acyclovir (ZOVIRAX) 800 mg tablet 1 tablet three times daily. - aspirin, enteric coated (ASPIRIN, ENTERIC COATED) 81 mg EC tablet Take 1 tablet by mouth once daily. - loratadine (CLARITIN) 10 mg tablet Take 1 tablet by mouth once daily. 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] 11/30/2009 Cheilitis: lower lip: along jennifer to lip m*12/03/2011 Lichen Planus: lower lip [L43.9] 12/03/2011 04/25/2012 Candidal cheilitis [B37.83] 12/03/2011 Actinic cheilitis [L56.8] 12/03/2011 04/25/2012 Pruritus [L29.9] 12/03/2011 Seborrheic Keratosis [L82.1] 12/03/2011 04/25/2012 Essential hypertension, benign [I10] 06/13/2012 Chronic right-sided low back pain [M54.50, G89.*10/03/2016 Insomnia [G47.00] 11/29/2016 Lactose intolerance [E73.9] 11/29/2016 Encounter for gynecological examination without*07/21/2017 Encounter for screening mammogram for breast ca*07/21/2017 Encounter for Medicare annual wellness exam [Z0*07/21/2017 Chronic allergic rhinitis [J30.9] 07/21/2017 Elevated plasma metanephrines [R79.89] 01/27/2018 Screening for colon cancer [Z12.11] 11/13/2018 Elevated hemoglobin A1c [R73.09] 05/14/2019 LALO (generalized anxiety disorder) [F41.1] 12/29/2020 Medication management [Z79.899] 07/06/2021 Advance directive discussed with patient [Z71.8*07/26/2022 Mild AI (aortic insufficiency) [I35.1] 07/27/2022 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 dysplasia of both carotid arterie*08/03/2022 Diverticulosis [K57.90] 04/23/2023 History of Clostridium difficile colitis [Z86.1*11/20/2023 Encounter Status:Closed by SOL LOWERY on 09/30/24 Normal [facility] Telephone ([facility]) -------- LAURENCE KOROMA ([id number]) 1950 F Date Time Provider Department 09/29/24 [facility] During your visit today, we recorded the following information about you: Frank Sharpe LPN 09/29/2024 3:42 PM Signed Pt calling to et an apt to be seen. PT started with cough and sore throat Sunday09-26-24. Pt losing her voice. Pt denies fever. COVID tested negative. Pt treating symptoms with OTC medications and gargling with salt water. Pt thinks she may be getting little better. Pt will be going to visiting elderly relatives this weekend and does not want to get anyone sick. Pt declining to come in today and requesting early apt tomorrow 09-30-24. Pt booked for apt 09-30-24 with provider/team. Frank Sharpe LPN Allergies As of Date: 09/29/2024 Noted Allergy Reaction SULFA (SULFONAMIDE ANTIBIOTICS) 05/15/2007 2 - Rash AUGMENTIN (AMOXICILLIN-POT CLAVUL*05/15/2007 5 - Intolerance Comments: Patient had diarrhea and possibly a mild skin rash with prior use of Augmentin. She has subsequently taken amoxicillin and tolerated this without adverse reaction. CATS 12/24/2009 5 - Intolerance ECHINACEA 02/22/2016 7 - Swelling POLLEN 12/24/2009 5 - Intolerance RAGWEED 12/24/2009 5 - Intolerance Date Reviewed: 09/22/2024 Reviewed by: Elina Mckenzie LPN - Fully Assessed Reason for Visit: Future Appointment [256] Prescriptions as of 09/29/2024 - zolpidem (AMBIEN) 10 mg Take 1 tablet by mouth at bedtime as needed for up to 180 days. FOR INSOMNIA - lisinopril (ZESTRIL) 40 mg tablet Take 0.5 tablets by mouth two times a day. - multivit,iron,minerals/l utein (CENTRUM SILVER ULTRA WOMEN'S ORAL) Take by mouth. Take one tablet daily - hydroCHLOROthiazide 12.5 mg capsule Take 1 capsule by mouth once daily. - fluticasone (FLONASE) 50 mcg/actuation nasal spray Use 2 Sprays in each nostril once daily. Rinse mouth after use. - Potassium Chloride (KLOR-CON 8) 8 mEq tablet Take 1 tablet by mouth two times a day. - alendronate (FOSAMAX) 70 mg tablet Take 1 tablet by mouth one time a week. In AM with cup of water on empty stomach. Nothing else by mouth and stay upright for 30 min. - L.acid/L.casei/B.bif/B.l on/FOS (PROBIOTIC BLEND ORAL) Take by mouth. - acyclovir (ZOVIRAX) 800 mg tablet 1 tablet three times daily. - aspirin, enteric coated (ASPIRIN, ENTERIC COATED) 81 mg EC tablet Take 1 tablet by mouth once daily. - loratadine (CLARITIN) 10 mg tablet Take 1 tablet by mouth once daily. 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] 11/30/2009 Cheilitis: lower lip: along jennifer to lip m*12/03/2011 Lichen Planus: lower lip [L43.9] 12/03/2011 04/25/2012 Candidal cheilitis [B37.83] 12/03/2011 Actinic cheilitis [L56.8] 12/03/2011 04/25/2012 Pruritus [L29.9] 12/03/2011 Seborrheic Keratosis [L82.1] 12/03/2011 04/25/2012 Essential hypertension, benign [I10] 06/13/2012 Chronic right-sided low back pain [M54.50, G89.*10/03/2016 Insomnia [G47.00] 11/29/2016 Lactose intolerance [E73.9] 11/29/2016 Encounter for gynecological examination without*07/21/2017 Encounter for screening mammogram for breast ca*07/21/2017 Encounter for Medicare annual wellness exam [Z0*07/21/2017 Chronic allergic rhinitis [J30.9] 07/21/2017 Elevated plasma metanephrines [R79.89] 01/27/2018 Screening for colon cancer [Z12.11] 11/13/2018 Elevated hemoglobin A1c [R73.09] 05/14/2019 LALO (generalized anxiety disorder) [F41.1] 12/29/2020 Medication management [Z79.899] 07/06/2021 Advance directive discussed with patient [Z71.8*07/26/2022 Mild AI (aortic insufficiency) [I35.1] 07/27/2022 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 dysplasia of both carotid arterie*08/03/2022 Diverticulosis [K57.90] 04/23/2023 History of Clostridium difficile colitis [Z86.1*11/20/2023 Encounter Status:Closed by FRANK SHARPE on 09/29/24 Normal [facility] BD DXA - AXIAL SKELETONon BD DXA - AXIAL SKELETON * * *Final Repor t* * * DATE OF EXAM: Sep 26 2024 1:24PM [facility] 0804 - BD DXA - AXIAL SKELETON / PROCEDURE REASON: Age-related osteoporosis without current pathological fracture * * * * Physician Interpretation * * * * EXAMINATION: DXA BONE DENSITOMETRY BD DXA - AXIAL SKELETON, BD DXA TRABECLR BONE SCORE (TBS) PATIENT DEMOGRAPHICS: Age: 73 years, Gender: Female SCANNER INFORMATION: DXA Model: [employer] C 48849 Date Scanned: 09/26/2024 1:24 PM CLINICAL HISTORY: DIAGNOSTIC Age-related osteoporosis without current pathological fracture . RISK FACTORS FOR OSTEOPOROSIS AND ASSOCIATED FRACTURES REPORTED BY THIS PATIENT: Please refer to Bone Health Questionnaire in the EMR CURRENT THERAPY: Please refer to Bone Health Questionnaire in the EMR TECHNICAL LIMITATIONS: None RESULTS: Lumbar spine (L1, L2, L3, L4): 0.938 g/cm2, T-score -1.0, Z-score 1.5 Lumbar spine: 2021: 0.848 g/cm2 Statistically significant increase Right Femoral Neck: 0.592 g/cm2, T-score -2.3, Z-score -0.2 Right Femoral Neck: 2021: 0.562 g/cm2 Statistically significant increase Right Total Hip: 0.690 g/cm2, T-score -2.1, Z-score -0.2 Right Total Hip: 2021: 0.636 g/cm2 Statistically significant increase Left Femoral Neck: 0.553 g/cm2, T-score -2.7, Z-score -0.5 Left Femoral Neck: 2021: 0.536 g/cm2 No statistically significant change Left Total Hip: 0.737 g/cm2, T-score -1.7, Z-score 0.1 Left Total Hip: 2021: 0.686 g/cm2 Statistically significant increase CHANGE IS STATISTICALLY SIGNIFICANT IN THE SPINE OR HIP IF GREATER THAN OR EQUAL TO 0.04 g/cm2 VERTEBRAL FRACTURE ASSESSMENT Not performed. TRABECULAR BONE ASSESSMENT TBS score: 1.364 Bone micro-architecture: Normal (> 1.310) IMPRESSION: THE LOWEST T-SCORE IS -2.7 IN THE LEFT HIP 1) DIAGNOSIS (based on BMD alone): OSTEOPOROSIS Caution: Medical conditions other than osteoporosis may cause low bone density, such as osteomalacia or renal osteodystrophy. Clinical correlation is necessary. 2) FRACTURE RISK (Based on TBS adjusted FRAX): 10-year absolute fracture risk: - major osteoporotic fracture = 12 % - hip fracture = 4.0 % - A diagnosis of Osteoporosis, a 10 year probability of hip fracture greater than or equal to 3% or a 10 year probability of any major osteoporosis-related fracture greater than or equal to 20% should be considered for treatment. - DXA scanner generated FRAX calculations may slightly differ from online FRAX calculations due to differences in software versions. - All recommendations and calculations are to be considered as guidelines and should not replace sound clinical judgement - Caution: Fracture risk may be increased independent of BMD in patients with corticosteroid use, age greater than 65 years, or a history of prior fragility fracture. RECOMMENDATIONS: Follow-up in 2 years or as clinically indicated. Patients that are taking corticosteroids, are transplant recipients or have hyperparathyroidism should have annual follow-up. Follow-up scans should always be done on the same machine for accurate comparison. FOR MORE INFORMATION ABOUT DIAGNOSIS AND TREATMENT: [facility] Osteoporosis and Metabolic Bone Disease:? www.ccf.org/arthritis/os ariel National Osteoporosis Foundation:? www.nof.org International Society of Clinical Densitometry www.iscd.org Presser Hand: APRIL Transcribe Date/Time: Sep 29 2024 6:32A Dictated by : DM SINGLETON MD This examination was interpreted and the report reviewed and electronically signed by: DM SINGLETON MD on Sep 29 2024 6:34AM EST [id number] Normal [facility] BD DXA TRABECLR BONE SCORE ( TBS)on 09-26-2024 BD DXA TRABECLR BONE SCORE (TBS) * * *Final Report* * * DATE OF EXAM: Sep 26 2024 1:24PM [facility] [id number] - BD DXA TRABECLR BONE SCORE (TBS) / PROCEDURE REASON: Age-related osteoporosis without current pathological fracture * * * * Physician Interpretation * * * * EXAMINATION: DXA BONE DENSITOMETRY BD DXA - AXIAL SKELETON, BD DXA TRABECLR BONE SCORE (TBS) PATIENT DEMOGRAPHICS: Age: 73 years, Gender: Female SCANNER INFORMATION: DXA Model: [employer] C 10017 Date Scanned: 09/26/2024 1:24 PM CLINICAL HISTORY: DIAGNOSTIC Age-related osteoporosis without current pathological fracture . RISK FACTORS FOR OSTEOPOROSIS AND ASSOCIATED FRACTURES REPORTED BY THIS PATIENT: Please refer to Bone Health Questionnaire in the EMR CURRENT THERAPY: Please refer to Bone Health Questionnaire in the EMR TECHNICAL LIMITATIONS: None RESULTS: Lumbar spine (L1, L2, L3, L4): 0.938 g/cm2, T-score -1.0, Z-score 1.5 Lumbar spine: 2021: 0.848 g/cm2 Statistically significant increase Right Femoral Neck: 0.592 g/cm2, T-score -2.3, Z-score -0.2 Right Femoral Neck: 2021: 0.562 g/cm2 Statistically significant increase Right Total Hip: 0.690 g/cm2, T-score -2.1, Z-score -0.2 Right Total Hip: 2021: 0.636 g/cm2 Statistically significant increase Left Femoral Neck: 0.553 g/cm2, T-score -2.7, Z-score -0.5 Left Femoral Neck: 2021: 0.536 g/cm2 No statistically significant change Left Total Hip: 0.737 g/cm2, T-score -1.7, Z-score 0.1 Left Total Hip: 2021: 0.686 g/cm2 Statistically significant increase CHANGE IS STATISTICALLY SIGNIFICANT IN THE SPINE OR HIP IF GREATER THAN OR EQUAL TO 0.04 g/cm2 VERTEBRAL FRACTURE ASSESSMENT Not performed. TRABECULAR BONE ASSESSMENT TBS score: 1.364 Bone micro-architecture: Normal (> 1.310) IMPRESSION: THE LOWEST T-SCORE IS -2.7 IN THE LEFT HIP 1) DIAGNOSIS (based on BMD alone): OSTEOPOROSIS Caution: Medical conditions other than osteoporosis may cause low bone density, such as osteomalacia or renal osteodystrophy. Clinical correlation is necessary. 2) FRACTURE RISK (Based on TBS adjusted FRAX): 10-year absolute fracture risk: - major osteoporotic fracture = 12 % - hip fracture = 4.0 % - A diagnosis of Osteoporosis, a 10 year probability of hip fracture greater than or equal to 3% or a 10 year probability of any major osteoporosis-related fracture greater than or equal to 20% should be considered for treatment. - DXA scanner generated FRAX calculations may slightly differ from online FRAX calculations due to differences in software versions. - All recommendations and calculations are to be considered as guidelines and should not replace sound clinical judgement - Caution: Fracture risk may be increased independent of BMD in patients with corticosteroid use, age greater than 65 years, or a history of prior fragility fracture. RECOMMENDATIONS: Follow-up in 2 years or as clinically indicated. Patients that are taking corticosteroids, are transplant recipients or have hyperparathyroidism should have annual follow-up. Follow-up scans should always be done on the same machine for accurate comparison. FOR MORE INFORMATION ABOUT DIAGNOSIS AND TREATMENT: [facility] Osteoporosis and Metabolic Bone Disease:? www.ccf.org/arthritis/os ariel National Osteoporosis Foundation:? www.nof.org International Society of Clinical Densitometry www.iscd.org Presser Hand: APRIL Transcribe Date/Time: Sep 29 2024 6:32A Dictated by : DM SINGLETON MD This examination was interpreted and the report reviewed and electronically signed by: DM SINGLETON MD on Sep 29 2024 6:34AM EST [id number] [facility] CNOVon 09-22-2024 CNOV Office Visit (FAMPWS ) -------- LAURENCE KOROMA ([id number]) 1950 F Date Time Provider Department 09/22/24 11:40 AM [facility] During your visit today, we recorded the following information about you: Temperature Pulse Respiration Blood pressure 98 degrees 81/minute 16/minute 127/70 Weight 45.8 kg Constance Klein PA-C 09/22/2024 12:03 PM Signed Chief Complaint Patient presents with: Follow Up: Blood presuure HPI Laurence J Len is a 73 year old female who presents here today for BP recheck. At last visit we had patient change the timing on her BP medications. She does have overall better readings. Mostly 120-130s/60-70s. She still has occasional high bp of 150s/70s. No concerns Past medical history, appointments, medications, allergies reviewed. [...] US 07/2022 LALO (generalized anxiety disorder) 12/29/2020 History of Clostridium difficile colitis 11/20/2023 Due to antibiotics. May need Vanco at same time as antibiotics to prevent recurrence. Would do Vanco 125 mg a day while on an antibiotic. Insomnia 11/29/2016 Lactose intolerance Lactose intolerance Mild [...] on File Prior to Visit Medication Sig zolpidem (AMBIEN) 10 mg Take 1 tablet by mouth at bedtime as needed for up to 180 days. FOR INSOMNIA lisinopril (ZESTRIL) 40 mg tablet Take 0.5 tablets by mouth two times a day. multivit,iron,minerals/l utein (CENTRUM SILVER ULTRA WOMEN'S ORAL) Take by mouth. Take one tablet daily hydroCHLOROthiazide 12.5 mg capsule Take 1 capsule by mouth once daily. fluticasone (FLONASE) 50 mcg/actuation nasal spray Use 2 Sprays in each nostril once daily. Rinse mouth after use. Potassium Chloride (KLOR-CON 8) 8 mEq tablet Take 1 tablet by mouth two times a day. alendronate (FOSAMAX) 70 mg tablet Take 1 tablet by mouth one time a week. In AM with cup of water on empty stomach. Nothing else by mouth and stay upright for 30 min. L.acid/L.casei/B.bif/B.l on/FOS (PROBIOTIC BLEND ORAL) Take by mouth. acyclovir (ZOVIRAX) 800 mg tablet 1 tablet three times daily. (Patient taking differently: 800 mg as needed.) aspirin, enteric coated (ASPIRIN, ENTERIC COATED) 81 mg EC tablet Take 1 tablet by mouth once daily. loratadine (CLARITIN) 10 mg tablet Take 1 tablet by mouth once daily. No current facility-administered medications on file prior to visit. Social History Social History Tobacco Use Smoking status: Never Smokeless tobacco: Never Vaping Use Vaping status: Never Used Substance Use Topics Alcohol use: No Drug use: No Review of Symptoms REVIEW OF SYSTEMS See hpi EXAM: BP 127/70 (BP Site: Left Arm, BP Position: Sitting, BP Cuff Size: Regular Adult) Pulse 81 Temp 36.7 ?C (98 ?F) Resp 16 Wt 45.8 kg (101 lb) SpO2 96% BMI 20.40 kg/m? General Appearance: Well appearing, alert, in no acute distress, well-hydrated, well nourished.. Health Mainte (more content not included)... Normal [facility] 09-09-2024 [facility] Telephone ([facility]) -------- LAURENCE KOROMA ([id number]) 1950 F Date Time Provider Department 09/09/24 FABIAN MCMULLEN [facility] During your visit today, we recorded the following information about you: Fabian Mcmullen MD 09/09/2024 10:02 AM Signed Let p[t know her liver functions are back to normal. Testing for Hepatitis A, B and C were all Neg. Her Vit D is better but still higher then we need it. Besides her Centrum Silver ad vise her to look at any other over the counter meds to see if they have Vit D in them and try to cut them out. Sol Lowery MA 09/09/2024 11:10 AM Signed Patient notified and voiced understanding. Sol Lowery MA Allergies As of Date: 09/09/2024 Noted Allergy Reaction SULFA (SULFONAMIDE ANTIBIOTICS) 05/15/2007 2 - Rash AUGMENTIN (AMOXICILLIN-POT CLAVUL*05/15/2007 5 - Intolerance Comments: Patient had diarrhea and possibly a mild skin rash with prior use of Augmentin. She has subsequently taken amoxicillin and tolerated this without adverse reaction. CATS 12/24/2009 5 - Intolerance ECHINACEA 02/22/2016 7 - Swelling POLLEN 12/24/2009 5 - Intolerance RAGWEED 12/24/2009 5 - Intolerance Date Reviewed: 09/08/2024 Reviewed by: Angela Stapleton LPN - Fully Assessed Reason for Visit: Results [95] Prescriptions as of 09/09/2024 - zolpidem (AMBIEN) 10 mg Take 1 tablet by mouth at bedtime as needed for up to 180 days. FOR INSOMNIA - lisinopril (ZESTRIL) 40 mg tablet Take 0.5 tablets by mouth two times a day. - multivit,iron,minerals/l utein (CENTRUM SILVER ULTRA WOMEN'S ORAL) Take by mouth. Take one tablet daily - hydroCHLOROthiazide 12.5 mg capsule Take 1 capsule by mouth once daily. - fluticasone (FLONASE) 50 mcg/actuation nasal spray Use 2 Sprays in each nostril once daily. Rinse mouth after use. - Potassium Chloride (KLOR-CON 8) 8 mEq tablet Take 1 tablet by mouth two times a day. - alendronate (FOSAMAX) 70 mg tablet Take 1 tablet by mouth one time a week. In AM with cup of water on empty stomach. Nothing else by mouth and stay upright for 30 min. - L.acid/L.casei/B.bif/B.l on/FOS (PROBIOTIC BLEND ORAL) Take by mouth. - acyclovir (ZOVIRAX) 800 mg tablet 1 tablet three times daily. - aspirin, enteric coated (ASPIRIN, ENTERIC COATED) 81 mg EC tablet Take 1 tablet by mouth once daily. - loratadine (CLARITIN) 10 mg tablet Take 1 tablet by mouth once daily. 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] 11/30/2009 Cheilitis: lower lip: along jennifer to lip m*12/03/2011 Lichen Planus: lower lip [L43.9] 12/03/2011 04/25/2012 Candidal cheilitis [B37.83] 12/03/2011 Actinic cheilitis [L56.8] 12/03/2011 04/25/2012 Pruritus [L29.9] 12/03/2011 Seborrheic Keratosis [L82.1] 12/03/2011 04/25/2012 Essential hypertension, benign [I10] 06/13/2012 Chronic right-sided low back pain [M54.50, G89.*10/03/2016 Insomnia [G47.00] 11/29/2016 Lactose intolerance [E73.9] 11/29/2016 Encounter for gynecological examination without*07/21/2017 Encounter for screening mammogram for breast ca*07/21/2017 Encounter for Medicare annual wellness exam [Z0*07/21/2017 Chronic allergic rhinitis [J30.9] 07/21/2017 Elevated plasma metanephrines [R79.89] 01/27/2018 Screening for colon cancer [Z12.11] 11/13/2018 Elevated hemoglobin A1c [R73.09] 05/14/2019 LALO (generalized anxiety disorder) [F41.1] 12/29/2020 Medication management [Z79.899] 07/06/2021 Advance directive discussed with patient [Z71.8*07/26/2022 Mild AI (aortic insufficiency) [I35.1] 07/27/2022 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 dysplasia of both carotid arterie*08/03/2022 Diverticulosis [K57.90] 04/23/2023 History of Clostridium difficile colitis [Z86.1*11/20/2023 Encounter Status:Closed by SOL LOWERY on 09/09/24 Normal [facility] 25(OH)D3 [facility] [place] 2023 25-hydroxyvitamin D3 [Mass/Vol] 84.6 ng/mL High 31.0-80.0 [facility] Comment on above: Order Comment: Speci men Type: BLOOD SPECIMEN Ordering Facility: [facility] Address: [address] [place] [address] Result Comment: Clas sification of 25 [place] Vitamin D status: Deficiency/Insufficiency: < or = 30 ng/ml. Sufficiency/Optimal Levels: 31-80 ng/mL Toxicity: > 100 ng/mL. Test performed by chemiluminescent immunoassay. Performed By: #### 1 989-3 #### [facility] CLIA [id number] [address] [place] [address] [place] [id number] [facility] CNOVon 09-08-2024 CNOV Office Visit (FAMWS ) -------- LAURENCE KOROMA Kendal ([id number]) 1950 F Date Time Provider Department 09/08/24 11:40 AM [facility] During your visit today, we recorded the following information about you: Temperature Pulse Respiration Blood pressure 97.9 degrees 88/minute 16/minute 118/69 Weight 45.4 kg Constance Klein PA-C 09/08/2024 12:03 PM Signed Chief Complaint Patient presents with: 2 wk BP check HPI Laurence Koroma is a 73 year old female who presents here today for Above Complaints.. 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 When she checks her BP around 11am it has been normal. Patient states that she typically takes her medication at 8am. No S/s of HTN. Past medical history, appointments, medications, allergies reviewed. [...] US 07/2022 LALO (generalized anxiety disorder) 12/29/2020 History of Clostridium difficile colitis 11/20/2023 Due to antibiotics. May need Vanco at same time as antibiotics to prevent recurrence. Would do Vanco 125 mg a day while on an antibiotic. Insomnia 11/29/2016 Lactose intolerance Lactose intolerance Mild [...] on File Prior to Visit Medication Sig multivit,iron,minerals/l utein (CENTRUM SILVER ULTRA WOMEN'S ORAL) Take by mouth. Take one tablet daily lisinopril (ZESTRIL) 40 mg tablet Take 1 tablet by mouth once daily. hydroCHLOROthiazide 12.5 mg capsule Take 1 capsule by mouth once daily. fluticasone (FLONASE) 50 mcg/actuation nasal spray Use 2 Sprays in each nostril once daily. Rinse mouth after use. Potassium Chloride (KLOR-CON 8) 8 mEq tablet Take 1 tablet by mouth two times a day. zolpidem (AMBIEN) 10 mg Take 1 tablet by mouth at bedtime as needed for up to 180 days. FOR INSOMNIA alendronate (FOSAMAX) 70 mg tablet Take 1 tablet by mouth one time a week. In AM with cup of water on empty stomach. Nothing else by mouth and stay upright for 30 min. L.acid/L.casei/B.bif/B.l on/FOS (PROBIOTIC BLEND ORAL) Take by mouth. acyclovir (ZOVIRAX) 800 mg tablet 1 tablet three times daily. (Patient taking differently: 800 mg as needed.) aspirin, enteric coated (ASPIRIN, ENTERIC COATED) 81 mg EC tablet Take 1 tablet by mouth once daily. loratadine (CLARITIN) 10 mg tablet Take 1 tablet by mouth once daily. No current facility-administered medications on file prior to visit. Social History Social History Tobacco Use Smoking status: Never Smokeless tobacco: Never Vaping Use Vaping status: Never Used Substance Use Topics Alcohol use: No Drug use: No Review of Symptoms REVIEW OF SYSTEMS GENERAL: No weight loss, malaise or fevers RESPIRATORY: Negative for cough, hemoptysis, wheezing, COPD, dyspnea or shortness of breath CARDIOVASCULAR: Negative for chest pain, leg swelling, hypertension, CHF or palpitations EXAM: BP 118/69 Pulse 88 Tem (more content not included)... Normal [facility] HAV IgM Ser Qlon 09-08-2024 HAV IgM Ql (S) Negative Normal Negative [facility] Comment on above: Order Comment: Speci men Type: BLOOD SPECIMENOrdering Facility: [facility] Address: [address] [place] [address] Result Comment: No e vidence of recent infection with Hepatitis A virus. Performed By: #### 5 195-3, 12935-0, 30729-0 ####[facility] [id number] [place] [address] [place] HBV core IgM Ser Qlon 2023 HBV core IgM Ql (S) Negative Normal Negative [facility] Comment on above: Order Comment: Speci men Type: BLOOD SPECIMENOrdering Facility: [facility] Address: [address] [place] [address] Result Comment: No e vidence of recent infection with Hepatitis B virus. Should recent infection be suspected, repeat testing may be considered 3-4 weeks after this draw. Performed By: #### 5 195-3, 51543-4, 28373-6 ####[facility] [id number] [place] [address] [place] HBV surface Ag Ser Qlon 08-16 HBV surface Ag Ql (S) Negative Normal Negative [facility] Comment on above: Order Comment: Speci men Type: BLOOD SPECIMENOrdering Facility: [facility] Address: [address] [place] [address] Performed By: #### 5 195-3, 64866-7, 21181-0 ####[facility] [id number] [place] [address] [place] HCV RNA BRITTANI+probe Qnon 09-08 HCV RNA BRITTANI+probe Ql Not detected Normal Not detected [facility] Comment on above: Order Comment: Speci men Type: BLOOD SPECIMENOrdering Facility: [facility] Address: [address] [place] [address] Performed By: #### 1 1011-4 ####[facility]IA [id number] [place] [address] [place] Hepatic function 2000 panelo n 09-08-2024 Albumin [Mass/Vol] 4.3 g/dL Normal 3.9-4.9 [facility] Comment on above: Order Comment: Speci men Type: BLOOD SPECIMENOrdering Facility: [facility] Address: [address] [place] [address] Performed By: #### 2 4325-3 ####[facility] [id number] [place] [address] [place] ALP [Catalytic activity/Vol] 78 U/L Normal 34-123 [facility] Comment on above: Order Comment: Speci men Type: BLOOD SPECIMENOrdering Facility: [facility] Address: [address] [id number] Performed By: #### 2 4325-3 ####[facility] [id number] [place] [address] [place] ALT [Catalytic activity/Vol] 15 U/L Normal 7-38 [facility] Comment on above: Order Comment: Speci men Type: BLOOD SPECIMENOrdering Facility: [facility] Address: [facility] [place] [address] Performed By: #### 2 4325-3 ####[facility] [id number] [place] [address] [place] AST [Catalytic activity/Vol] 29 U/L Normal 13-35 [facility] Comment on above: Order Comment: Speci men Type: BLOOD SPECIMENOrdering Facility: [facility] Address: [address] [place] [address] Performed By: #### 2 4325-3 ####[facility] [id number] [place] [address] [place] Bilirubin [Mass/Vol] 0.3 mg/dL Normal 0.2-1.3 [facility] Comment on above: Order Comment: Speci men Type: BLOOD SPECIMENOrdering Facility: [facility] Address: [address] [place] [address] Performed By: #### 2 4325-3 ####[facility] [id number] [place] [address] [place] Bilirubin.conjugated [Mass/Vol] mg/dL Normal <0.2 [facility] Comment on above: Order Comment: Speci men Type: BLOOD SPECIMENOrdering Facility: [facility] Address: [address] [place] [address] Performed By: #### 2 4325-3 ####[facility]IA [id number] [place] [address] [place] Protein [Mass/Vol] 7.3 g/dL Normal 6.3-8.0 [facility] Comment on above: Order Comment: Speci men Type: BLOOD SPECIMENOrdering Facility: [facility] Address: [address] [place] [address] Performed By: #### 2 4325-3 ####[facility]CL[facility] [id number] [id number] OF [facility] CNOVon 08-25-2024 CNOV Office Visit (FAMPWS ) -------- LAURENCE KOROMA ([id number]) 1950 F Date Time Provider Department 08/25/24 11:40 AM [facility] During your visit today, we recorded the following information about you: Pulse Blood pressure Weight 97/minute 118/62 45.5 kg Laurence Steele LPN 08/25/2024 11:34 AM Signed 08/25/2024: Home BP Cuff Validated. Home BP: 119/49 Office BP: 118/62 Constance Klein PA-C 08/25/2024 12:17 PM Signed Chief Complaint Patient presents with: Follow Up: Blood pressure HPI Laurence Koroma is a 73 year old female who presents here today for BP recheck. Patient has been checking BP at home. Ranges from 130-150/60s. No s/s of high blood pressure. Past medical history, appointments, medications, allergies [...] US 07/2022 LALO (generalized anxiety disorder) 12/29/2020 History of Clostridium difficile colitis 11/20/2023 Due to antibiotics. May need Vanco at same time as antibiotics to prevent recurrence. Would do Vanco 125 mg a day while on an antibiotic. Insomnia 11/29/2016 Lactose intolerance Lactose intolerance Mild [...] on File Prior to Visit Medication Sig lisinopril (ZESTRIL) 40 mg tablet Take 1 tablet by mouth once daily. hydroCHLOROthiazide 12.5 mg capsule Take 1 capsule by mouth once daily. Potassium Chloride (KLOR-CON 8) 8 mEq tablet Take 1 tablet by mouth two times a day. multivit,iron,minerals/l utein (CENTRUM SILVER ULTRA WOMEN'S ORAL) Take by mouth. Take one tablet daily fluticasone (FLONASE) 50 mcg/actuation nasal spray Use 2 Sprays in each nostril once daily. Rinse mouth after use. zolpidem (AMBIEN) 10 mg Take 1 tablet by mouth at bedtime as needed for up to 180 days. FOR INSOMNIA alendronate (FOSAMAX) 70 mg tablet Take 1 tablet by mouth one time a week. In AM with cup of water on empty stomach. Nothing else by mouth and stay upright for 30 min. L.acid/L.casei/B.bif/B.l on/FOS (PROBIOTIC BLEND ORAL) Take by mouth. acyclovir (ZOVIRAX) 800 mg tablet 1 tablet three times daily. (Patient taking differently: 800 mg as needed.) aspirin, enteric coated (ASPIRIN, ENTERIC COATED) 81 mg EC tablet Take 1 tablet by mouth once daily. loratadine (CLARITIN) 10 mg tablet Take 1 tablet by mouth once daily. No current facility-administered medications on file prior to visit. Social History Social History Tobacco Use Smoking status: Never Smokeless tobacco: Never Vaping Use Vaping status: Never Used Substance Use Topics Alcohol use: No Drug use: No Review of Symptoms REVIEW OF SYSTEMS Denies chest pain and shortness of breath. EXAM: BP 118/62 Pulse 97 Wt 45.5 kg (100 lb 3.2 oz) SpO2 100% BMI 20.24 kg/m? General Appearance: Well appearing, alert, in no acute distress, well-hydrated, well nourished.. Health Maintenance List BP Controlled (<130/80) Never done DTaP,Tdap,Td Vaccine(2 - Td or Tdap) due on (more content not included)... Normal [facility] CNOVon 08-08-2024 CNOV Office Visit (FAMPWS ) -------- LAURENCE KOROMA ([id number]) 1950 F Date Time Provider Department 08/08/24 11:40 AM FABIAN MCMULLEN FAMPWS During your visit today, we recorded the following information about you: Pulse Respiration Blood pressure Weight 72/minute 16/minute 164/68 45.8 kg Height 1.499 m Fabian Mcmullen MD 08/08/2024 1:19 PM Signed Laurence Koroma is a 73 year old female here for a Medicare wellness visit. Medicare Health Risk Assessment General Health Very good Exercise: Minutes/Day 0 min Exercise: Days/Week 0 days Alcohol: Daily Use Monthly or less Alcohol: Drinks/Day 1 or 2 Alcohol: 6 or more drinks Never Feel off balance No Concerns: Teeth/Dentures No Concerns: Sexual function No Troubled by feelings None of the above Frequency: Eating healthy diet Nearly every day ADLs requiring help None of the above Safety precautions in home/vehicle No Smoke, vape, chews tobacco No Difficulty hearing No Difficulty seeing No Current Providers Specialists: I have reviewed specialist-related care of the patient in the medical record. Current care team: Patient Care Team: Fabian Mcmullen MD as PCP - General (Family Medicine) Dr. Wells: Vascular GRANTS DIRECTOR Optho Medical/Family history review Reviewed and updated problem list, medical/surgical/family/ social history, medications, and allergies. Opioid use review Opioid Medications (last 90 days) No data to display Anxiety/Depression screening PHQ-2 Score: 0 (Lower risk for depression) Recommendation: no further intervention at this time Cognitive screening Score: 5 Cognitive screening reviewed and No further action needed (score 3-5). Functional Observation Was the patient's Timed Up AND Go test unsteady or >= 12 seconds? No Advance Care Planning Patient did not wish or was not able to name a surrogate decision maker or provide an advance care plan Measurements BP 152/70 (BP Site: Right Arm, BP Position: Sitting, BP Cuff Size: Regular Adult) Pulse 72 Resp 16 Ht 149.9 cm (4' 11) Wt 45.8 kg (101 lb) BMI 20.40 kg/m? Vision Screening: Follows with optometry/ophthalmology Assessment/Plan Medicare annual wellness visit, subsequent (Z00.00) - Counseled on healthy diet and regular exercise - Fall avoidance information provided - Personalized prevention plan provided See HPI Chief Complaint Patient presents with: Medicare Wellness Exam HPI Laurence Koroma is a 73 year old female who presents here today for Chronic Medical Conditions. and Medicare Annual Visit. Patient with hx HTN, elevated A1c, LALO, insomnia, and those as below. Patient has josé luis doing ok. No new issues or concerns. Past medical history, appointments, medications, allergies reviewed. [...] US 07/2022 LALO (generalized anxiety disorder) 12/29/2020 History of Clostridium difficile colitis 11/20/2023 Due to antibiotics. May need Vanco at same time as antibiotics to prevent recurrence. Would do Vanco 125 mg a day while on an antibiotic. Insomnia 11/29/2016 Lactose intolerance Lactose intolerance Mild [...] with prior use of Augmentin. She has subs (more content not included)... Normal [facility] CNPLatosha 07-31-2024 [facility] -------- KOROMALAURENCE ([id number]) 1950 F Date Time Provider Department 07/31/24 [facility] During your visit today, we recorded the following information about you: Constance Klein PA-C 07/31/2024 8:15 AM Signed Labs will be discussed at upcoming visit but her vit D is high. We have in the system that she is only on 2000 international unit(s) daily of Vit D. Is this correct? No other vitamins that have vit D? RISHABH London Sherill A, LPN 07/31/2024 8:29 AM Signed Spoke with pt and reviewed results. Pt advises that she takes vit D3 1000 international unit(s) twice daily and takes Centrum Silver multivitamin which has 1000 international unit(s) of vit D3 so she takes a total of 3000 international unit(s) vit D 3 daily. KELLI Naranjo Rayanne, PA-C 07/31/2024 8:32 AM Signed Have her decrease to just 1000 international unit(s) at this time and then discuss with Dr. Mcmullen at upcoming visit. RISHABH London Sherill A, LPN 07/31/2024 8:39 AM Signed Pt notified of Constance's instructions. Pt verbalizes understanding and repeats instructions back correctly. Elina Mckenzie LPN Allergies As of Date: 07/31/2024 Noted Allergy Reaction SULFA (SULFONAMIDE ANTIBIOTICS) 05/15/2007 2 - Rash AUGMENTIN (AMOXICILLIN-POT CLAVUL*05/15/2007 5 - Intolerance Comments: Patient had diarrhea and possibly a mild skin rash with prior use of Augmentin. She has subsequently taken amoxicillin and tolerated this without adverse reaction. CATS 12/24/2009 5 - Intolerance ECHINACEA 02/22/2016 7 - Swelling POLLEN 12/24/2009 5 - Intolerance RAGWEED 12/24/2009 5 - Intolerance Date Reviewed: 04/28/2024 Reviewed by: Chey Ponce MA - Fully Assessed Reason for Visit: Results [95] Prescriptions as of 07/31/2024 - lisinopril (ZESTRIL) 40 mg tablet Take 1 tablet by mouth once daily. - hydroCHLOROthiazide 12.5 mg capsule Take 1 capsule by mouth once daily. - fluticasone (FLONASE) 50 mcg/actuation nasal spray Use 2 Sprays in each nostril once daily. Rinse mouth after use. - Potassium Chloride (KLOR-CON 8) 8 mEq tablet Take 1 tablet by mouth two times a day. - zolpidem (AMBIEN) 10 mg Take 1 tablet by mouth at bedtime as needed for up to 180 days. FOR INSOMNIA - benzonatate (TESSALON PERLES) 100 mg capsule Take 2 capsules by mouth three times a day as needed. - alendronate (FOSAMAX) 70 mg tablet Take 1 tablet by mouth one time a week. In AM with cup of water on empty stomach. Nothing else by mouth and stay upright for 30 min. - L.acid/L.casei/B.bif/B.l on/FOS (PROBIOTIC BLEND ORAL) Take by mouth. - albuterol HFA (PROAIR HFA) 90 mcg/actuation inhaler Inhale 2 Puffs as instructed every 6 hours as needed. - acyclovir (ZOVIRAX) 800 mg tablet 1 tablet three times daily. - aspirin, enteric coated (ASPIRIN, ENTERIC COATED) 81 mg EC tablet Take 1 tablet by mouth once daily. - acyclovir (ZOVIRAX) 800 mg tablet 1 tablet three times daily. - cholecalciferol (VITAMIN D3) 1,000 unit tab tablet Take 1,000 Units by mouth twice daily. - loratadine (CLARITIN) 10 mg tablet Take 1 tablet by mouth once daily. 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] 11/30/2009 Cheilitis: lower lip: along jennifer to lip m*12/03/2011 Lichen Planus: lower lip [L43.9] 12/03/2011 04/25/2012 Candidal cheilitis [B37.83] 12/03/2011 Actinic cheilitis [L56.8] 12/03/2011 04/25/2012 Pruritus [L29.9] 12/03/2011 Seborrheic Keratosis [L82.1] 12/03/2011 04/25/2012 Essential hypertension, benign [I10] 06/13/2012 Chronic right-sided low back pain [M54.50, G89.*10/03/2016 Insomnia [G47.00] 11/29/2016 Lactose intolerance [E73.9] 11/29/2016 Encounter for gynecological examination without*07/21/2017 Encounter for screening mammogram for breast ca*07/21/2017 Encounter for Medicare annual wellness exam [Z0*07/21/2017 Chronic allergic rhinitis [J30.9] 07/21/2017 Elevated plasma metanephrines [R79.89] 01/27/2018 Screening for colon cancer [Z12.11] 11/13/2018 Elevated hemoglobin A1c [R73.09] 05/14/2019 LALO (generalized anxiety disorder) [F41.1] 12/29/2020 Medication management [Z79.899] 07/06/2021 Advance directive discussed with patient [Z71.8*07/26/2022 Mild AI (aortic insufficiency) [I35.1] 07/27/2022 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 dysplasia of both carotid arterie*08/03/2022 Diverticulosis [K57.90] 04/23/2023 History of Clostridium difficile colitis [Z86.1*11/20/2023 Encounter Status:Closed by ELINA MCKENZIE on 07/31/24 Normal [facility] 25(OH)D3 [facility] 2023 25-hydroxyvitamin D3 [Mass/Vol] 102.0 ng/mL High 31.0-80.0 [facility] Comment on above: Order Comment: Speci men Type: BLOOD SPECIMENOrdering Facility: [facility] Address: [address] [place] [address] Result Comment: Clas sification of 25 [place] Vitamin D status: Deficiency/Insufficiency: < or = 30 ng/ml. Sufficiency/Optimal Levels: 31-80 ng/mL Toxicity: > 100 ng/mL. Test performed by chemiluminescent immunoassay. Performed By: #### 1 989-3 ####[facility] [id number] [place] [address] [place] CBC W Auto Differential pane l (Bld)on 07-30-2024 Basophils (Bld) [#/Vol] 0.03 10*3/uL Normal <0.11 [facility] Comment on above: Order Comment: Speci men Type: BLOOD SPECIMEN [facility]ing [facility]: [facility] Address: [address] [place] [address] Performed By: #### 5 7021-8 #### [facility] CLIA [id number] [address] [place] [address] [place] Basophils/100 WBC (Bld) 0.5 % Normal C [facility] Comment on above: Order Comment: Speci men Type: BLOOD SPECIMEN [facility]ing Facility: [facility] Address: [address] [place] [address] Performed By: #### 5 7021-8 #### [facility] CLIA [id number] [address] [place] [address] [place] Differential cell count method Nom (Bld) Auto Normal [facility] Comment on above: Order Comment: Speci men Type: BLOOD SPECIMEN [facility]: [facility] Address: [address] [place] [address] Performed By: #### 5 7021-8 #### [facility] CLIA [id number] [address] [place] [address] [place] Eosinophils (Bld) [#/Vol] 0.13 10*3/uL Normal <0.46 [facility] Comment on above: Order Comment: Speci men Type: BLOOD SPECIMEN [facility]ing [facility]: [facility] Address: [address] [place] [address] Performed By: #### 5 7021-8 #### [facility] CLIA [id number] [address] [place] [address] [place] Eosinophils/100 WBC (Bld) 2.0 % Normal [facility] Comment on above: Order Comment: Speci men Type: BLOOD SPECIMEN [facility]ing [facility]: [facility] Address: [address] [place] [address] Performed By: #### 5 7021-8 #### [facility] CLIA [id number] [address] [place] [address] [place] Erythrocyte distribution width (RBC) [Ratio] 14.2 % Normal 11.5-15.0 [facility] Comment on above: Order Comment: Speci men Type: BLOOD SPECIMEN [facility]ing [facility]: [facility] Address: [address] [place] [address] Performed By: #### 5 7021-8 #### [facility] CLIA [id number] [address] [place] [address] [place] Hematocrit (Bld) [Volume fraction] 36.9 % Normal 36.0-46.0 [facility] Comment on above: Order Comment: Speci men Type: BLOOD SPECIMEN [facility]ing [facility]: [facility] Address: [address] [place] [address] Performed By: #### 5 7021-8 #### [facility] CLIA [id number] [address] [place] [address] [place] Hemoglobin (Bld) [Mass/Vol] 11.9 g/dL Normal 11.5-15.5 [facility] Comment on above: Order Comment: Speci men Type: BLOOD SPECIMEN [facility] Address: [address] [place] [address] Performed By: #### 5 7021-8 #### [facility] CLIA [id number] [address] [place] [address] [place] Immature granulocytes (Bld) [#/Vol] 10*3/uL Normal <0.10 [facility] Comment on above: Order Comment: Speci men Type: BLOOD SPECIMEN [facility]ing [facility]: [facility] Address: [address] [place] [address] Performed By: #### 5 7021-8 #### [facility] CLIA [id number] [address] [place] [address] [place] Immature granulocytes/100 WBC (Bld) 0.3 % Normal [facility] Comment on above: Order Comment: Speci men Type: BLOOD SPECIMEN [facility]ing [facility] Address: [address] [place] [address] Performed By: #### 5 7021-8 #### [facility] CLIA [id number] [address] [place] [address] [place] Lymphocytes (Bld) [#/Vol] 2.50 10*3/uL Normal 1.00-4.0 0 [facility] Comment on above: Order Comment: Speci men Type: BLOOD SPECIMEN [facility]ing [facility]: [facility] Address: [address] [place] [address] Performed By: #### 5 7021-8 #### [facility] CLIA [id number] [address] [place] [address] [place] Lymphocytes/100 WBC (Bld) 38.2 % Normal [facility] Comment on above: Order Comment: Speci men Type: BLOOD SPECIMEN [facility]ing [facility]: [facility] Address: [address] [place] [address] Performed By: #### 5 7021-8 #### [facility] CLIA [id number] [address] [place] [address] [place] MCH (RBC) [Entitic mass] 30.1 pg Normal 26.0-34.0 [facility] Comment on above: Order Comment: Speci men Type: BLOOD SPECIMEN [facility]ing [facility]: [facility] Address: [address] [place] [address] Performed By: #### 5 7021-8 #### [facility] CLIA [id number] [address] [place] [address] [place] MCHC (RBC) [Mass/Vol] 32.2 g/dL Normal 30.5-36.0 [facility] Comment on above: Order Comment: Speci men Type: BLOOD SPECIMEN [facility] Address: [address] [place] [address] Performed By: #### 5 7021-8 #### [facility] CLIA [id number] [address] [place] [address] [place] MCV (RBC) [Entitic vol] 93.4 fL Normal 80.0-100.0 [facility] Comment on above: Order Comment: Speci men Type: BLOOD SPECIMEN [facility]ing [facility] Address: [address] [place] [address] Performed By: #### 5 7021-8 #### [facility] CLIA [id number] [address] [place] [address] [place] Monocytes (Bld) [#/Vol] 0.52 10*3/uL Normal <0.87 [facility] Comment on above: Order Comment: Speci men Type: BLOOD SPECIMEN [facility]ing [facility] Address: [address] [place] [address] Performed By: #### 5 7021-8 #### [facility] CLIA [id number] [address] [place] [address] [place] Monocytes/100 WBC (Bld) 7.9 % Normal C [facility] Comment on above: Order Comment: Speci men Type: BLOOD SPECIMEN [facility]ing [facility] Address: [address] [place] [address] Performed By: #### 5 7021-8 #### [facility] CLIA [id number] [address] [place] [address] [place] Neutrophils (Bld) [#/Vol] 3.35 10*3/uL Normal 1.45-7.5 0 [facility] Comment on above: Order Comment: Speci men Type: BLOOD SPECIMEN [facility] Address: [address] [place] [address] Performed By: #### 5 7021-8 #### [facility] CLIA [id number] [address] [place] [address] [place] Neutrophils/100 WBC (Bld) 51.1 % Normal [facility] Comment on above: Order Comment: Speci men Type: BLOOD SPECIMEN [facility] Address: [address] [place] [address] Performed By: #### 5 7021-8 #### [facility] CLIA [id number] [address] [place] [address] [place] Nucleated RBC (Bld) [#/Vol] 10*3/uL Normal <0.01 [facility] Comment on above: Order Comment: Speci men Type: BLOOD SPECIMEN [facility] Address: [address] [place] [address] Performed By: #### 5 7021-8 #### [facility] CLIA [id number] [address] [place] [address] [place] Nucleated RBC/100 WBC (Bld) [Ratio] 0.0 /100 WBC Normal [facility] Comment on above: Order Comment: Speci men Type: BLOOD SPECIMEN [facility] Address: [address] [place] [address] Performed By: #### 5 7021-8 #### [facility] CLIA [id number] [address] [place] [address] [place] Platelet mean volume (Bld) [Entitic vol] 10.4 fL Normal 9.0-12.7 [facility] Comment on above: Order Comment: Speci men Type: BLOOD SPECIMEN [facility] Address: [address] [place] [address] Performed By: #### 5 7021-8 #### [facility] CLIA [id number] [address] [place] [address] [place] Platelets (Bld) [#/Vol] 307 10*3/uL Normal 150-400 [facility] Comment on above: Order Comment: Speci men Type: BLOOD SPECIMEN [facility] Address: [address] [place] [address] Performed By: #### 5 7021-8 #### [facility] CLIA [id number] [address] [place] [address] [place] RBC (Bld) [#/Vol] 3.95 10*6/uL Normal 3.90-5.[address] [facility] Comment on above: Order Comment: Speci men Type: BLOOD SPECIMEN [facility] Address: [address] [place] [address] Performed By: #### 5 7021-8 #### [facility] CLIA [id number] [address] [place] [address] [place] WBC (Bld) [#/Vol] 6.55 10*3/uL Normal 3.70-11.[address] [facility] Comment on above: Order Comment: Speci men Type: BLOOD SPECIMEN [facility] Address: [address] [place] [address] Performed By: #### 5 7021-8 #### [facility] CLIA [id number] [address] [place] [address] [place] Comprehensive metabolic 2000 panelon 07-30-2024 Albumin [Mass/Vol] 4.3 g/dL Normal 3.9-4.9 [facility] Comment on above: Order Comment: Speci men Type: BLOOD SPECIMENOrdering Facility: [facility] Address: [address] [place] [address] Performed By: #### 2 4323-8, LIPNF ####[facility] [id number] [place] [address] [place] ALP [Catalytic activity/Vol] 92 U/L Normal 34-123 [facility] Comment on above: Order Comment: Speci men Type: BLOOD SPECIMENOrdering Facility: [facility] Address: [address] [place] [address] Performed By: #### 2 4323-8, LIPNF ####[facility] [id number] [place] [address] [place] ALT [Catalytic activity/Vol] 29 U/L Normal 7-38 [facility] Comment on above: Order Comment: Speci men Type: BLOOD SPECIMENOrdering Facility: [facility] Address: [address] [place] [address] Performed By: #### 2 4323-8, LIPNF ####[facility] [id number] [place] [address] [place] Anion gap [Moles/Vol] 12 mmol/L Normal 8-15 [facility] Comment on above: Order Comment: Speci men Type: BLOOD SPECIMENOrdering Facility: [facility] Address: [address] [place] [address] Performed By: #### 2 4323-8, LIPNF ####[facility] [id number] [place] [address] [place] AST [Catalytic activity/Vol] 40 U/L High 13-35 [facility] Comment on above: Order Comment: Speci men Type: BLOOD SPECIMENOrdering Facility: [facility] Address: [address] [place], [place] [id number] Performed By: #### 2 4323-8, LIPNF ####[facility] [id number] [place] [address] [place] Bilirubin [Mass/Vol] 0.2 mg/dL Normal 0.2-1.3 [facility] Comment on above: Order Comment: Speci men Type: BLOOD SPECIMENOrdering Facility: [facility] Address: [address] [id number] Performed By: #### 2 4323-8, LIPNF ####[facility]IA [id number] [place] [id number] [place] Calcium [Mass/Vol] 10.0 mg/dL Normal 8.5-10.2 [facility] Comment on above: Order Comment: Speci men Type: BLOOD SPECIMENOrdering Facility: [facility] Address: [address] [place], [place] [address] Performed By: #### 2 4323-8, LIPNF ####[facility] [id number] [place] [address] [place] Chloride [Moles/Vol] 104 mmol/L Normal 98-107 [facility] Comment on above: Order Comment: Speci men Type: BLOOD SPECIMENOrdering Facility: [facility] Address: [address] [place], [place] [address] Performed By: #### 2 4323-8, LIPNF ####[facility] [id number] [place] [address] [place] CO2 [Moles/Vol] 24 mmol/L Normal 22-30 [facility] Comment on above: Order Comment: Speci men Type: BLOOD SPECIMENOrdering Facility: [facility] Address: [address] [place], [place] [address] Performed By: #### 2 4323-8, LIPNF ####[facility] [id number] [place] [id number] [place] Creatinine [Mass/Vol] 0.92 mg/dL Normal 0.58-0.96 [facility] Comment on above: Order Comment: Speci men Type: BLOOD SPECIMENOrdering Facility: [facility] Address: [address] [place], [place] [address] Performed By: #### 2 4323-8, LIPNF ####[facility] [id number] [place] [address] [place] Creatinine and Glomerular filtration rate.predicted panel (S/P/Bld) 65 mL/min/1.73m??? Normal >=60 [facility] Comment on above: Order Comment: Grazyna anton Type: BLOOD SPECIMENOrdering Facility: [facility] Address: [address] [place] [address] Result Comment: Sarah mated Glomerular Filtration Rate (eGFR) is calculated using the 2020 CKD-EPI creatinine equation. This equation utilizes serum creatinine, sex, and age as parameters. The creatinine assay has traceable calibration to isotope dilution-mass spectrometry. Refer to KDIGO guidelines for clinical interpretation. In patients with unstable renal function, e.g. those with acute kidney injury, the eGFR may not accurately reflect actual GFR. Performed By: #### 2 4323-8, LIPNF ####[facility] [id number] [place] [address] [place] Glucose [Mass/Vol] 85 mg/dL Normal 74-99 [facility] Comment on above: Order Comment: Grazyna anton Type: BLOOD SPECIMENOrdering Facility: [facility] Address: [address] [place] [address] Result Comment: The [place] Diabetes [employer] (ADA) provides guidance for cutoff values for fasting glucose and random glucose. The ADA defines fasting as no caloric intake for at least 8 hours. Fasting plasma glucose results between 100 to 125 mg/dL indicate increased risk for diabetes (prediabetes). Fasting plasma glucose results greater than or equal to 126 mg/dL meet the criteria for diagnosis of diabetes. In the absence of unequivocal hyperglycemia, results should be confirmed by repeat testing. In a patient with classic symptoms of hyperglycemia or hyperglycemic crisis, random plasma glucose results greater than or equal to 200 mg/dL meet the criteria for diagnosis of diabetes. Reference: Standards of Medical Care in Diabetes 2016, [place] [employer]. Diabetes Care. 2016.39(Suppl 1). Performed By: #### 2 4323-8, LIPNF ####[facility] [id number] [place] [address] [place] Potassium [Moles/Vol] 4.0 mmol/L Normal 3.7-5.1 [facility] Comment on above: Order Comment: Speci men Type: BLOOD SPECIMENOrdering Facility: [facility] Address: [address] [place] [address] Performed By: #### 2 4323-8, LIPNF ####[facility] [id number] [place] [address] [place] Protein [Mass/Vol] 7.5 g/dL Normal 6.3-8.0 [facility] Comment on above: Order Comment: Speci men Type: BLOOD SPECIMENOrdering Facility: [facility] Address: [address] [place] [address] Performed By: #### 2 4323-8, LIPNF ####[facility]IA [id number] [place] [address] [place] Sodium [Moles/Vol] 140 mmol/L Normal 136-144 [facility] Comment on above: Order Comment: Speci men Type: BLOOD SPECIMENOrdering Facility: [facility] Address: [address] [place] [address] Performed By: #### 2 4323-8, LIPNF ####[facility] [id number] [place] [address] [place] Urea nitrogen [Mass/Vol] 22 mg/dL High 7-21 [facility] Comment on above: Order Comment: Speci men Type: BLOOD SPECIMENOrdering Facility: [facility] Address: [address] [place] [address] Performed By: #### 2 4323-8, LIPNF ####[facility] [id number] [place] [address] [place] HbA1c (Bld)on 07-30-2024 Average glucose Estimated from glycated hemoglobin (Bld) [Mass/Vol] 117 mg/dL Normal [facility] Comment on above: Order Comment: Grazyna anton Type: BLOOD SPECIMENOrdering Facility: [facility] Address: [address] [place] [address] Result Comment: eAG: (Estimated average glucose) is a calculated value from HgbA1c and is medical field representative of the average blood glucose level in the last 2-3 month period. Performed By: #### 5 5454-3 ####[facility] [id number] [place] [address] [place] HbA1c (Bld) [Mass fraction] 5.7 % High 4.3-5.6 [facility] Comment on above: Order Comment: Grazyna anton Type: BLOOD SPECIMENOrdering Facility: [facility] Address: [address] [place] [address] Result Comment: [place] Diabetes Association guidelines indicate that patients with HgbA1c in the range 5.7-6.4% are at increased risk for development of diabetes, and intervention by lifestyle modification may be beneficial. HgbA1c greater or equal to 6.5% is considered diagnostic of diabetes. Performed By: #### 5 5454-3 ####[facility] [id number] [place] [address] [place] LIPID PANEL, NONFASTINGon Cholesterol [Mass/Vol] 207 mg/dL High <200 [facility] Comment on above: Order Comment: Grazyna anton Type: BLOOD SPECIMENOrdering Facility: [facility] Address: [address] [place] [address] Result Comment: <200 mg/dL, Desirable 200-239 mg/dL, Borderline high >239 mg/dL, High Performed By: #### 2 4323-8, LIPNF ####[facility] [id number] [address] [place] HDL CHOLESTEROL, NF 56 mg/dL Normal >[address] [facility] Comment on above: Order Comment: Grazyna anton Type: BLOOD SPECIMENOrdering Facility: [facility] Address: [address] [place], [place] [id number] Result Comment: 40-5 9 mg/dL, Acceptable >59 mg/dL, High: Negative risk factor for coronary heart disease <40 mg/dL, Low: Positive risk factor for coronary heart disease Performed By: #### 2 4323-8, LIPNF ####[facility] [id number] [place] [address] [place] LDL CHOLESTEROL, NF 128 mg/dL High <[address] [facility] Comment on above: Order Comment: Speci men Type: BLOOD SPECIMENOrdering Facility: [facility] Address: [address] [place] [address] Result Comment: <100 mg/dL, Optimal 100-129 mg/dL, Near optimal/above optimal 130-159 mg/dL, Borderline high 160-189 mg/dL, High >189 mg/dL, Very high Secondary prevention optimal LDL Cholesterol levels are recommended to be < 70 mg/dL Performed By: #### 2 4323-8, LIPNF ####[facility] [id number] [address] [place] LDL/HDL RATIO, NF 2.29 mg/dL Normal <2.54 [facility] Comment on above: Order Comment: Speci men Type: BLOOD SPECIMENOrdering Facility: [facility] Address: [address] [place] [address] Result Comment: Refe rence: 1. National Cholesterol Education Program ATP III Guideline At-A-Glance Quick Desk Reference: National Heart, Lung, and Blood [place]. National Institutes of Health. 2001: NIH Publication No. 01-3305. 2. An International Atherosclerosis Society position paper: global recommendations for the management of dyslipidemia: executive summary, Atherosclerosis. 2014: 232(2):410-413. Performed By: #### 2 4323-8, LIPNF ####[facility] [id number] [place] [address] [place] NON HDL CHOL, NF 151 mg/dL High <130 [facility] Comment on above: Order Comment: Speci men Type: BLOOD SPECIMENOrdering Facility: [facility] Address: [address] [place] [address] Result Comment: <130 mg/dL, Optimal 130-159 mg/dL, Near optimal/above optimal 160-189 mg/dL, Borderline high 190-219 mg/dL, High >219 mg/dL, Very high Secondary prevention optimal non HDL Cholesterol levels are recommended to be <100 mg/dL Performed By: #### 2 4323-8, LIPNF ####[facility] [id number] [place] [address] [place] T CHOL/HDL RATIO NF 3.70 mg/dL Normal <5.[address] [facility] Comment on above: Order Comment: Speci men Type: BLOOD SPECIMENOrdering Facility: [facility] Address: [address] [place] [address] Performed By: #### 2 4323-8, LIPNF ####[facility] LABCLIA [id number] [place] [address] [place] TRIGLYCERIDES, NF 116 mg/dL Normal <150 [facility] Comment on above: Order Comment: Speci men Type: BLOOD SPECIMENOrdering Facility: [facility] Address: [address] [place] [address] Result Comment: <150 mg/dL, Normal 150-199 mg/dL, Borderline high 200-499 mg/dL, High >499 mg/dL, Very high Performed By: #### 2 4323-8, LIPNF ####[facility] LABCLIA [id number] [place] [address] [place] VLDL CHOLESTEROL, NF 23 mg/dL Normal <30 [facility] Comment on above: Order Comment: Speci men Type: BLOOD SPECIMENOrdering Facility: [facility] Address: [address] [place] [address] Performed By: #### 2 4323-8, LIPNF ####[facility] LABCLIA [id number] [place] [address] [place] XR Chest PA and Lateralon IMPRESSION: No acute radiographic abnormality. Presser Hand: APRIL Transcribe Date/Time: Dec 23 2023 12:36A Dictated by : ROBERTO ASH MD This examination was interpreted and the report reviewed and electronically signed by: ROBERTO ASH MD on Dec 23 2023 12:36AM [facility] DIVISION OF RADIOLOGY * * *Final Report* * * DATE OF EXAM: Dec 20 2023 1:31PM WOX 5291 - XR CHEST 2V FRONTAL/LAT / PROCEDURE REASON: Viral bronchitis * * * * Physician Interpretation * * * * EXAMINATION: CHEST RADIOGRAPH (2 VIEW FRONTAL & LATERAL) CLINICAL HISTORY: Viral bronchitis MQ: XC2_6 EXAM DATE/TIME: 12/20/2023 1:31 PM COMPARISON: 08/03/2023 RESULT: Lines, tubes, and devices: None. Lungs and pleura: No consolidation. No lung mass. No pleural effusion. No pneumothorax. Cardiomediastinal silhouette: Normal cardiomediastinal silhouette. Bones and soft tissues: Unremarkable. DIVISION OF RADIOLOGY Provider, [facility] - 12/23/2023 * * *Final Report* * * DATE OF EXAM: Dec 20 2023 1:31PM WOX 5291 - XR CHEST 2V FRONTAL/LAT / PROCEDURE REASON: Viral bronchitis * * * * Physician Interpretation * * * * EXAMINATION: CHEST RADIOGRAPH (2 VIEW FRONTAL & LATERAL) CLINICAL HISTORY: Viral bronchitis MQ: XC2_6 EXAM DATE/TIME: 12/20/2023 1:31 PM COMPARISON: 08/03/2023 RESULT: Lines, tubes, and devices: None. Lungs and pleura: No consolidation. No lung mass. No pleural effusion. No pneumothorax. Cardiomediastinal silhouette: Normal cardiomediastinal silhouette. Bones and soft tissues: Unremarkable. IMPRESSION IMPRESSION: No acute radiographic abnormality. Presser Hand: APRIL Transcribe Date/Time: Dec 23 2023 12:36A Dictated by : ROBERTO ASH MD This examination was interpreted and the report reviewed and electronically signed by: ROBERTO ASH MD on Dec 23 2023 12:36AM [facility] XR Chest PA and LateralOrder ed By: [facility]cf Provider on 12-23-2023 [facility] XR Chest PA and Lateralon Radiology Study observation (narrative) [facility] Absolute lymphocyte countOrd ered By: Christian Yuone on 11-27-2023 Lymphocytes Auto (Unsp spec) [#/Vol] 1.91 10*3/uL 0.83-4.51 [facility] Automated lymphocyte count a s percentage of total leukocytesOrdered By: Christian Trejo on 11-27-2023 Lymphocytes/100 WBC Auto (Unsp spec) 12.7 % 19-41 [facility] Basophil percentageOrdered B y: Christian Trejo on 11-27-2023 Basophils/100 WBC (Bld) 0.2 % 0-1 [facility] Bilirubin [Mass/Vol] 0.40 mg/dL 0.20-1.00 [facility] Comment on above: For patients on eltr ombopag therapy, use of Dimension Addison TBIL is not recommended. Chloride [Moles/Vol] 106 mmol/L 98-107 [facility] Eosinophils/100 WBC (Bld) 0.8 % 0-5 [facility] Glucose [Mass/Vol] 151 mg/dL 74-106 [facility] Comment on above: Fasting Glucose resu lt greater than or equal to 126 mg/dL suggests DIABETES MELLITUS per A.D.A. criteria. Hemoglobin (Bld) [Mass/Vol] 13.3 g/dL 12.0-15.0 [facility] Monocytes/100 WBC (Bld) 6.9 % 0-10 [facility] Neutrophils (Bld) [#/Vol] 11.8 10*3/uL 2.0-7.7 [facility] Neutrophils/100 WBC (Bld) 78.5 % 47-70 [facility] Potassium [Moles/Vol] 3.2 mmol/L 3.5-5.1 [facility] Protein [Mass/Vol] 8.2 g/dL 6.4-8.2 [facility] Sodium [Moles/Vol] 143 mmol/L 136-145 [facility] WBC (Bld) [#/Vol] 15.1 10*3/uL 4.4-11.0 [facility] Determination of erythrocyte mean corpuscular volume (MCV)Ordered By: Christian Trejo on 11-27-2023 MCV (RBC) [Entitic vol] 91.9 fL 81-99 [facility] Erythrocyte distribution wid th ratioOrdered By: Christian Trejo on 11-27-2023 Erythrocyte distribution width (RBC) [Ratio] 13.9 % 11.6-14.6 [facility] Erythrocyte distribution wid th standard deviationOrdered By: Christian Trejo on 11-27-2023 Erythrocyte distribution width (RBC) [Entitic vol] 47.4 fL 35.1-43.9 [facility] Hematocrit Auto (Bld) [Volum e fraction]Ordered By: Christian Trejo on 11-27-2023 Hematocrit (Bld) [Volume fraction] 40.7 % 37-47 [facility] Immature granulocytes/100 WB C Auto (Bld)Ordered By: Christian rTejo on 11-27-2023 Immature granulocytes/100 WBC (Bld) 0.900 % 0.0-0.9 [facility] Comment on above: IG% - Immature Granu locytes (promyelocytes, myelocytes and metamyelocytes) > 1% indicates that a LEFT SHIFT is Present. Laboratory - Chemistry and C hemistry - challengeOrdered By: Christian Trejo on 11-27-2023 Albumin/Globulin [Mass ratio] 1.0 {ratio} 0.9-2.4 [facility] ALP [Catalytic activity/Vol] 92 U/L 45-117 [facility] ALT [Catalytic activity/Vol] 17 U/L 13-56 [facility] CO2 [Moles/Vol] 30.0 mmol/L 21.0-32.0 [facility] Globulin (S) [Mass/Vol] 4.1 g/dL 2.2-4.2 [facility] Urea nitrogen/Creatinine [Mass ratio] 25.9 mg/mg 10-20 [facility] Laboratory - Hematology and Cell countsOrdered By: Christian Trejo on 11-27-2023 MCH (RBC) [Entitic mass] 30.0 pg 27.0-32.0 [facility] MCHC (RBC) [Mass/Vol] 32.7 g/dL 32-36 [facility] Nucleated RBC/100 WBC (Bld) [Ratio] 0 % 0-5 [facility] Platelet mean volume (Bld) [Entitic vol] 9.7 fL 6.2-12.0 [facility] Platelets (Bld) [#/Vol] 299 10*3/uL 150-450 [facility] No Panel InformationOrdered By: Christian Trejo on 11-27-2023 Estimated GFR (MDRD) Amer 61 mL/min >60 [facility] Comment on above: GFR Calc Estimated GFR (MDRD) Non-Af Amer 50 mL/min >60 [facility] Comment on above: Non- GFR Calc RBC Auto (Bld) [#/Vol]Ordere d By: Christian Trejo on 11-27-2023 RBC (Bld) [#/Vol] 4.43 10*6/uL 4.2-5.4 [facility] Serum or plasma calcium nikunj urement (mass/volume)Ordered By: Christian Trejo on 11-27-2023 Calcium [Mass/Vol] 11.2 mg/dL 8.5-10.1 [facility] Serum or plasma creatinine m easurement (mass/volume)Ordered By: Christian Trejo on 11-27-2023 Creatinine [Mass/Vol] 1.12 mg/dL 0.55-1.02 [facility] Comment on above: The validity of the calculated GFR & GFRAA in patients over 70 years has not been determined. Clinical correlation is essential. Serum or plasma urea nitroge n measurement (mass/volume)Ordered By: Christian Trejo on 11-27-2023 Urea nitrogen [Mass/Vol] 29 mg/dL 7-18 [facility] Thin prep Papanicolaou smear with manual screeningOrdered By: Christian Trejo on 11-27-2023 Thin prep Papanicolaou smear with manual screening 4.1 g/dL 3.2-5.0 [facility] Thin prep Papanicolaou smear with manual screening 20 U/L 15-37 [facility] Thin prep Papanicolaou smear with manual screening 7 5-15 [facility] XR CHEST 2V FRONTAL/LATon [facility] XR Chest PA and Lateralon IMPRESSION: No acute radiographic abnormality. Presser Hand: APRIL Transcribe Date/Time: Aug 03 2023 12:22P Dictated by : JENNIFER VILLANUEVA DO This examination was interpreted and the report reviewed and electronically signed by: JENNIFER VILLANUEVA DO on Aug 03 2023 12:25PM [facility] DIVISION OF RADIOLOGY * * *Final Report* * * DATE OF EXAM: Aug 03 2023 12:17PM WOX 5291 - XR CHEST 2V FRONTAL/LAT / PROCEDURE REASON: Acute cough * * * * Physician Interpretation * * * * EXAMINATION: CHEST RADIOGRAPH (2 VIEW FRONTAL & LATERAL) PATIENT/TECHNOLOGIST PROVIDED HISTORY: cough and congestion for 3 weeks CLINICAL HISTORY: 72 years old Female with Acute cough MQ: XC2_6 EXAM DATE/TIME: 08/03/2023 12:17 PM COMPARISON: Radiographs 09/12/2021, 07/12/2019 RESULT: Lines, tubes, and devices: None. Lungs and pleura: No consolidation. No pleural effusion or pneumothorax. Cardiomediastinal silhouette: Normal cardiomediastinal silhouette. Bones and soft tissues: Endplate degenerative changes in the thoracic spine. DIVISION OF RADIOLOGY Provider, [facility] - 08/03/2023 * * *Final Report* * * DATE OF EXAM: Aug 03 2023 12:17PM WOX 5291 - XR CHEST 2V FRONTAL/LAT / PROCEDURE REASON: Acute cough * * * * Physician Interpretation * * * * EXAMINATION: CHEST RADIOGRAPH (2 VIEW FRONTAL & LATERAL) PATIENT/TECHNOLOGIST PROVIDED HISTORY: cough and congestion for 3 weeks CLINICAL HISTORY: 72 years old Female with Acute cough MQ: XC2_6 EXAM DATE/TIME: 08/03/2023 12:17 PM COMPARISON: Radiographs 09/12/2021, 07/12/2019 RESULT: Lines, tubes, and devices: None. Lungs and pleura: No consolidation. No pleural effusion or pneumothorax. Cardiomediastinal silhouette: Normal cardiomediastinal silhouette. Bones and soft tissues: Endplate degenerative changes in the thoracic spine. IMPRESSION IMPRESSION: No acute radiographic abnormality. Presser Hand: APRIL Transcribe Date/Time: Aug 03 2023 12:22P Dictated by : JENNIFER VILLANUEVA DO This examination was interpreted and the report reviewed and electronically signed by: JENNIFER VILLANUEVA DO on Aug 03 2023 12:25PM EST [facility] Radiology Study observation (narrative) Yoselin chase [facility] XR Chest PA and LateralOrder ed By: [facility] Provider on 08-03-2023 [facility] Absolute lymphocyte countOrd ered By: Caitlin Cadena on 05-01-2023 Lymphocytes Auto (Unsp spec) [#/Vol] 2.31 10*3/uL 0.83-4.51 [facility] Basophil percentageOrdered B y: Caitlin Cadena on 05-01-2023 Basophils/100 WBC (Bld) 0.5 % 0-1 [facility] Chloride [Moles/Vol] 106 mmol/L 98-107 [facility] Eosinophils/100 WBC (Bld) 5.9 % 0-5 [facility] Glucose [Mass/Vol] 85 mg/dL 74-106 [facility] Neutrophils (Bld) [#/Vol] 3.0 10*3/uL 2.0-7.7 [facility] Neutrophils/100 WBC (Bld) 48.4 % 47-70 [facility] Potassium [Moles/Vol] 3.9 mmol/L 3.5-5.1 [facility] Sodium [Moles/Vol] 140 mmol/L 136-145 [facility] WBC (Bld) [#/Vol] 6.2 10*3/uL 4.4-11.0 [facility] Blood erythrocytes count (nu mber/volume)Ordered By: Caitlin Cadena on 05-01-2023 RBC (Bld) [#/Vol] 4.03 10*6/uL 4.2-5.4 [facility] Blood hemoglobin measurement (mass/volume)Ordered By: Caitlin Cadena on 05-01-2023 Hemoglobin (Bld) [Mass/Vol] 12.4 g/dL 12.0-15.0 [facility] Blood lymphocytes/100 leukoc ytesOrdered By: Caitlin Cadena on 05-01-2023 Lymphocytes/100 WBC (Bld) 37.1 % 19-41 [facility] Blood monocytes/100 leukocyt esOrdered By: Caitlin Cadena on 05-01-2023 Monocytes/100 WBC (Bld) 7.6 % 0-10 [facility] Blood platelet mean volumeOr dered By: Caitlin Cadena on 05-01-2023 Platelet mean volume (Bld) [Entitic vol] 10.8 fL 6.2-12.0 [facility] Determination of erythrocyte mean corpuscular volume (MCV)Ordered By: Caitlin Cadena on 05-01-2023 MCV (RBC) [Entitic vol] 90.6 fL 81-99 [facility] Hematocrit Auto (Bld) [Volum e fraction]Ordered By: Caitlin Cadena on 05-01-2023 Hematocrit (Bld) [Volume fraction] 36.5 % 37-47 [facility] Laboratory - Chemistry and C hemistry - challengeOrdered By: Caitlin Cadena on 05-01-2023 CO2 [Moles/Vol] 30.0 mmol/L 21.0-32.0 [facility] Urea nitrogen/Creatinine [Mass ratio] 8.8 mg/mg 10-20 [facility] Laboratory - Hematology and Cell countsOrdered By: Caitlin Cadena on 05-01-2023 Erythrocyte distribution width (RBC) [Entitic vol] 44.3 fL 35.1-43.9 [facility] Erythrocyte distribution width (RBC) [Ratio] 13.2 % 11.6-14.6 [facility] Immature granulocytes/100 WBC (Bld) 0.500 % 0.0-0.9 [facility] Comment on above: IG% - Immature Granu locytes (promyelocytes, myelocytes and metamyelocytes) > 1% indicates that a LEFT SHIFT is Present. MCH (RBC) [Entitic mass] 30.8 pg 27.0-32.0 [facility] Nucleated RBC/100 WBC (Bld) [Ratio] 0 % 0-5 [facility] MCHC Auto (RBC) [Mass/Vol]Or dered By: Caitlin Cadena on 05-01-2023 MCHC (RBC) [Mass/Vol] 34.0 g/dL 32-36 [facility] No Panel InformationOrdered By: Caitlin Cadena on 05-01-2023 Estimated Creatinine Clearance Calc 33.19 ml/min [facility] Estimated GFR (MDRD) Amer 109 mL/min >60 [facility] Comment on above: GFR Calc Estimated GFR (MDRD) Non-Af Amer 90 mL/min >60 [facility] Comment on above: Non- GFR Calc Platelets bldOrdered By: Lolis Cadena on 05-01-2023 Platelets (Bld) [#/Vol] 306 10*3/uL 150-450 [facility] Serum or plasma calcium nikunj urement (mass/volume)Ordered By: Caitlin Cadena on 05-01-2023 Calcium [Mass/Vol] 9.8 mg/dL 8.5-10.1 [facility] Serum or plasma creatinine m easurement (mass/volume)Ordered By: Caitlin Cadena on 05-01-2023 Creatinine [Mass/Vol] 0.68 mg/dL 0.55-1.02 [facility] Comment on above: The validity of the calculated GFR & GFRAA in patients over 70 years has not been determined. Clinical correlation is essential. Serum or plasma urea nitroge n measurement (mass/volume)Ordered By: Caitlin Cadena on 05-01-2023 Urea nitrogen [Mass/Vol] 6 mg/dL 7-18 [facility] Thin prep Papanicolaou smear with manual screeningOrdered By: Caitlin Cadena on 05-01-2023 Thin prep Papanicolaou smear with manual screening 4 5-15 [facility] Basophil percentageOrdered B y: Parth Guan on 04-28-2023 Basophil percentage 1.2 mg/dL 2.5-4.9 [facility] C. difficile Ql (Stl)Ordered By: Kaye Gardner on 04-28-2023 C. difficile GDH Antigen & Toxins Toxigenic C. difficile [facility] Clostridium difficile detect ion by polymerase chain reactionOrdered By: Kaye Gardner on 04-28-2023 C. difficile DNA BRITTANI+probe Ql (Unsp spec) [facility] Laboratory - Chemistry and C hemistry - challengeOrdered By: Parth Guan on 04-28-2023 Magnesium [Mass/Vol] 1.9 mg/dL 1.6-2.6 [facility] Ova and parasitesOrdered By: Kaye Gardner on 04-28-2023 Ova and parasites identified LM Nom (Unsp spec) [facility] Stool enteric pathogen panel by probe and target amplification methodOrdered By: Kaye Gardner on 04-28-2023 Gastrointestinal pathogens panel BRITTANI+probe (Stl) [facility] Stool lactoferrin detection by immunoassayOrdered By: Kaye Gardner on 04-28-2023 Lactoferrin IA Ql (Stl) [facility] Absolute lymphocyte countOrd ered By: Kaye Gardner on 04-27-2023 Lymphocytes Auto (Unsp spec) [#/Vol] 2.54 10*3/uL 0.83-4.51 [facility] Basophil percentageOrdered B y: Kaye Gardner on 04-27-2023 Basophils/100 WBC (Bld) 0.4 % 0-1 [facility] Bilirubin [Mass/Vol] 0.50 mg/dL 0.20-1.00 [facility] Comment on above: For patients on eltr ombopag therapy, use of Dimension [place] TBIL is not recommended. Chloride [Moles/Vol] 101 mmol/L 98-107 [facility] Eosinophils/100 WBC (Bld) 0.1 % 0-5 [facility] Glucose [Mass/Vol] 70 mg/dL 74-106 [facility] Neutrophils (Bld) [#/Vol] 12.7 10*3/uL 2.0-7.7 [facility] Neutrophils/100 WBC (Bld) 74.8 % 47-70 [facility] Potassium [Moles/Vol] 3.7 mmol/L 3.5-5.1 [facility] Protein [Mass/Vol] 6.6 g/dL 6.4-8.2 [facility] Sodium [Moles/Vol] 133 mmol/L 136-145 [facility] WBC (Bld) [#/Vol] 17.0 10*3/uL 4.4-11.0 [facility] Blood erythrocytes count (nu mber/volume)Ordered By: Kaye Gardner on 04-27-2023 RBC (Bld) [#/Vol] 4.12 10*6/uL 4.2-5.4 [facility] Blood hemoglobin measurement (mass/volume)Ordered By: Kaye Gardner on 04-27-2023 Hemoglobin (Bld) [Mass/Vol] 12.4 g/dL 12.0-15.0 [facility] Blood lymphocytes/100 leukoc ytesOrdered By: Kaye Gardner on 04-27-2023 Lymphocytes/100 WBC (Bld) 15.0 % 19-41 [facility] Blood manual differential co mment interpretation (narrative result)Ordered By: Kaye Gardner on 04-27-2023 Manual differential comment Leo (Bld) [Interp] SCANNED [facility] Comment on above: MONOCYTOSIS Blood monocytes/100 leukocyt esOrdered By: Kaye Gardner on 04-27-2023 Monocytes/100 WBC (Bld) 9.2 % 0-10 [facility] Blood platelet mean volumeOr dered By: Kaye Gardner on 04-27-2023 Platelet mean volume (Bld) [Entitic vol] 10.2 fL 6.2-12.0 [facility] Determination of erythrocyte mean corpuscular volume (MCV)Ordered By: Kaye Gardner on 04-27-2023 MCV (RBC) [Entitic vol] 93.2 fL 81-99 [facility] Direct bilirubinOrdered By: Kaye Gardner on 04-27-2023 Bilirubin.direct [Mass/Vol] 0.14 mg/dL 0.00-0.30 [facility] Hematocrit Auto (Bld) [Volum e fraction]Ordered By: Kaye Gardner on 04-27-2023 Hematocrit (Bld) [Volume fraction] 38.4 % 37-47 [facility] Laboratory - Chemistry and C hemistry - challengeOrdered By: Kaye Gardner on 04-27-2023 ALP [Catalytic activity/Vol] 72 U/L 45-117 [facility] ALT [Catalytic activity/Vol] 24 U/L 13-56 [facility] CO2 [Moles/Vol] 17.0 mmol/L 21.0-32.0 [facility] Globulin (S) [Mass/Vol] 3.7 g/dL 2.2-4.2 [facility] Urea nitrogen/Creatinine [Mass ratio] 10.8 mg/mg 10-20 [facility] Laboratory - Chemistry and C hemistry - challengeOrdered By: Tavon Rodriguez on 04-27-2023 Lipase [Catalytic activity/Vol] 18 U/L 13-75 [facility] Comment on above: Please note:LIPASE r evised reference range effective 23. New Lipase methodology. Expected to produce lower values than the previous assay method. NEW Reference Range: 13 - 75 U/L Laboratory - Hematology and Cell countsOrdered By: Kaye Gardner on 04-27-2023 Erythrocyte distribution width (RBC) [Entitic vol] 45.3 fL 35.1-43.9 [facility] Erythrocyte distribution width (RBC) [Ratio] 13.2 % 11.6-14.6 [facility] Immature granulocytes/100 WBC (Bld) 0.500 % 0.0-0.9 [facility] Comment on above: IG% - Immature Granu locytes (promyelocytes, myelocytes and metamyelocytes) > 1% indicates that a LEFT SHIFT is Present. MCH (RBC) [Entitic mass] 30.1 pg 27.0-32.0 [facility] Nucleated RBC/100 WBC (Bld) [Ratio] 0 % 0-5 [facility] MCHC Auto (RBC) [Mass/Vol]Or dered By: Kaye Gardner on 04-27-2023 MCHC (RBC) [Mass/Vol] 32.3 g/dL 32-36 [facility] No Panel InformationOrdered By: Kaye Gardner on 04-27-2023 Estimated Creatinine Clearance Calc 29.22 ml/min [facility] Estimated GFR (MDRD) Amer 56 mL/min >60 [facility] Comment on above: GFR Calc Estimated GFR (MDRD) Non-Af Amer 47 mL/min >60 [facility] Comment on above: Non- GFR Calc No Panel InformationOrdered By: Tavon Rodriguez on 04-27-2023 Troponin I High Sensitivity 6 pg/mL 3.0-54.0 [facility] Comment on above: Please Note: New Joanne t Units and Gender Specific Reference Ranges. For more information see Policy Stat Procedure Addison High Sensitivity Troponin (TNIH) and attachments. Platelets bldOrdered By: Nhung Gardner on 04-27-2023 Platelets (Bld) [#/Vol] 266 10*3/uL 150-450 [facility] Review by pathologistOrdered By: Kaye Gardner on 04-27-2023 Pathologist review Leo (Unsp spec) [Interp] Anuja coley [facility] Pathologist review Leo (Unsp spec) [Interp] Reviewed [facility] Comment on above: Previous reported re sult: Anuja coley Edited by: THEA on 04/27/23:1050Neutrophilic leukocytosis.Clinical correlation necessary.Javed Dasilva M.D. 04/27/23 AMENDED REPORT 04/27/23 1050 PATH REV previously reported as: Anuja brijesh Serum or plasma albumin nikunj urement (mass/volume)Ordered By: Kaye Gardner on 04-27-2023 Albumin [Mass/Vol] 2.9 g/dL 3.2-5.0 [facility] Serum or plasma calcium nikunj urement (mass/volume)Ordered By: Kaye Gardner on 04-27-2023 Calcium [Mass/Vol] 8.9 mg/dL 8.5-10.1 [facility] Serum or plasma creatinine m easurement (mass/volume)Ordered By: Kaye Gardner on 04-27-2023 Creatinine [Mass/Vol] 1.20 mg/dL 0.55-1.02 [facility] Comment on above: The validity of the calculated GFR & GFRAA in patients over 70 years has not been determined. Clinical correlation is essential. Serum or plasma urea nitroge n measurement (mass/volume)Ordered By: Kaye Gardner on 04-27-2023 Urea nitrogen [Mass/Vol] 13 mg/dL 7-18 [facility] Thin prep Papanicolaou smear with manual screeningOrdered By: Kaye Gardner on 04-27-2023 Thin prep Papanicolaou smear with manual screening 27 U/L 15-37 [facility] Thin prep Papanicolaou smear with manual screening 15 5-15 [facility] Absolute lymphocyte countOrd ered By: Keenan Bowser on 04-19-2023 Lymphocytes Auto (Unsp spec) [#/Vol] 1.90 10*3/uL 0.83-4.51 [facility] Basophil percentageOrdered B y: Keenan Bowser on 04-19-2023 Basophil percentage 0-5 SEEN /hpf 0-5 [facility] Basophils/100 WBC (Bld) 0.2 % 0-1 [facility] Bilirubin [Mass/Vol] 0.70 mg/dL 0.20-1.00 [facility] Comment on above: For patients on eltr ombopag therapy, use of Dimension Addison TBIL is not recommended. Chloride [Moles/Vol] 104 mmol/L 98-107 [facility] Eosinophils/100 WBC (Bld) 0.1 % 0-5 [facility] Glucose [Mass/Vol] 150 mg/dL 74-106 [facility] Comment on above: Fasting Glucose resu lt greater than or equal to 126 mg/dL suggests DIABETES MELLITUS per A.D.A. criteria. Neutrophils (Bld) [#/Vol] 11.5 10*3/uL 2.0-7.7 [facility] Neutrophils/100 WBC (Bld) 77.3 % 47-70 [facility] Potassium [Moles/Vol] 3.9 mmol/L 3.5-5.1 [facility] Protein [Mass/Vol] 7.2 g/dL 6.4-8.2 [facility] Sodium [Moles/Vol] 136 mmol/L 136-145 [facility] WBC (Bld) [#/Vol] 14.9 10*3/uL 4.4-11.0 [facility] Bilirubin Test strip Ql (U)O rdered By: Keenan Bowser on 04-19-2023 Bilirubin Ql (U) Negative Negative [facility] Blood erythrocytes count (nu mber/volume)Ordered By: Keenan Bowser on 04-19-2023 RBC (Bld) [#/Vol] 4.14 10*6/uL 4.2-5.4 [facility] Blood hemoglobin measurement (mass/volume)Ordered By: Keenan Bowser on 04-19-2023 Hemoglobin (Bld) [Mass/Vol] 12.6 g/dL 12.0-15.0 [facility] Blood lymphocytes/100 leukoc ytesOrdered By: Keenan Bowser on 04-19-2023 Lymphocytes/100 WBC (Bld) 12.8 % 19-41 [facility] Blood monocytes/100 leukocyt esOrdered By: Keenan Bowser on 04-19-2023 Monocytes/100 WBC (Bld) 9.1 % 0-10 [facility] Blood platelet mean volumeOr dered By: Keenan Bowser on 04-19-2023 Platelet mean volume (Bld) [Entitic vol] 10.9 fL 6.2-12.0 [facility] Determination of erythrocyte mean corpuscular volume (MCV)Ordered By: Keenan Bowser on 04-19-2023 MCV (RBC) [Entitic vol] 91.8 fL 81-99 [facility] Hematocrit Auto (Bld) [Volum e fraction]Ordered By: Keenan Bowser on 04-19-2023 Hematocrit (Bld) [Volume fraction] 38.0 % 37-47 [facility] Hyaline casts LM.LPF (Urine sed) [#/Area]Ordered By: Keenan Bwoser on 04-19-2023 Hyaline casts (Urine sed) [#/Area] 0 /[LPF] 0-5 [facility] Ketones Test strip Ql (U)Ord ered By: Keenan Bowser on 04-19-2023 Ketones Ql (U) Negative Negative [facility] Laboratory - Chemistry and C hemistry - challengeOrdered By: Keenan Bowser on 04-19-2023 ALP [Catalytic activity/Vol] 87 U/L 45-117 [facility] ALT [Catalytic activity/Vol] 16 U/L 13-56 [facility] CO2 [Moles/Vol] 24.0 mmol/L 21.0-32.0 [facility] Globulin (S) [Mass/Vol] 3.9 g/dL 2.2-4.2 [facility] Urea nitrogen/Creatinine [Mass ratio] 19.8 mg/mg 10-20 [facility] Laboratory - Hematology and Cell countsOrdered By: Keenan Bowser on 04-19-2023 Erythrocyte distribution width (RBC) [Entitic vol] 45.5 fL 35.1-43.9 [facility] Erythrocyte distribution width (RBC) [Ratio] 13.4 % 11.6-14.6 [facility] Immature granulocytes/100 WBC (Bld) 0.500 % 0.0-0.9 [facility] Comment on above: IG% - Immature Granu locytes (promyelocytes, myelocytes and metamyelocytes) > 1% indicates that a LEFT SHIFT is Present. MCH (RBC) [Entitic mass] 30.4 pg 27.0-32.0 [facility] Nucleated RBC/100 WBC (Bld) [Ratio] 0 % 0-5 [facility] MCHC Auto (RBC) [Mass/Vol]Or dered By: Keenan Bowser on 04-19-2023 MCHC (RBC) [Mass/Vol] 33.2 g/dL 32-36 [facility] Mucus LM Ql (Urine sed)Order ed By: Keenan Bowser on 04-19-2023 Mucus Ql (Urine sed) 0 SEEN /hpf [facility] Nitrite Test strip Ql (U)Ord ered By: Keenan Bowser on 04-19-2023 Nitrite Ql (U) Negative Negative [facility] No Panel InformationOrdered By: Keenan Bowser on 04-19-2023 Estimated Creatinine Clearance Calc 36.93 ml/min [facility] Estimated GFR (MDRD) Amer 73 mL/min >60 [facility] Comment on above: GFR Calc Estimated GFR (MDRD) Non-Af Amer 60 mL/min >60 [facility] Comment on above: Non- GFR Calc Platelets bldOrdered By: Anthony Bowser on 04-19-2023 Platelets (Bld) [#/Vol] 242 10*3/uL 150-450 [facility] Protein Test strip Ql (U)Ord ered By: Keenan Bowser on 04-19-2023 Protein Ql (U) 15 mg/dl Negative [facility] Serum or plasma albumin nikunj urement (mass/volume)Ordered By: Keenan Bowser on 04-19-2023 Albumin [Mass/Vol] 3.3 g/dL 3.2-5.0 [facility] Serum or plasma albumin/glob ulin mass ratioOrdered By: Keenan Bowser on 04-19-2023 Albumin/Globulin [Mass ratio] 0.8 {ratio} 0.9-2.4 [facility] Serum or plasma calcium nikunj urement (mass/volume)Ordered By: Keenan Bowser on 04-19-2023 Calcium [Mass/Vol] 8.9 mg/dL 8.5-10.1 [facility] Serum or plasma creatinine m easurement (mass/volume)Ordered By: Keenan Bowser on 04-19-2023 Creatinine [Mass/Vol] 0.96 mg/dL 0.55-1.02 [facility] Comment on above: The validity of the calculated GFR & GFRAA in patients over 70 years has not been determined. Clinical correlation is essential. Serum or plasma urea nitroge n measurement (mass/volume)Ordered By: Keenan Bowser on 04-19-2023 Urea nitrogen [Mass/Vol] 19 mg/dL 7-18 [facility] Squamous epithelial cells de tection in urine sediment by light microscopyOrdered By: Keenan Bowser on 04-19-2023 Epithelial cells.squamous LM Ql (Urine sed) 0 SEEN /hpf 5-10 [facility] Thin prep Papanicolaou smear with manual screeningOrdered By: Keenan Bowser on 04-19-2023 Thin prep Papanicolaou smear with manual screening 18 U/L 15-37 [facility] Thin prep Papanicolaou smear with manual screening 8 5-15 [facility] Urine blood detectionOrdered By: Keenan Bowser on 04-19-2023 RBC Ql (U) 10 /ul Negative [facility] RBC Ql (U) 0 SEEN /hpf 0-5 [facility] Urine clarityOrdered By: Anthony Bowser on 04-19-2023 Clarity (U) Sl. Cloudy Clear [facility] Urine color determinationOrd ered By: Keenan Bowser on 04-19-2023 Color (U) Yellow Yellow [facility] Urine glucose detectionOrder ed By: Keenan Bowser on 04-19-2023 Glucose Ql (U) Normal mg/dl Normal [facility] Urine leukocyte esterase det ection by dipstickOrdered By: Keenan Bowser on 04-19-2023 Leukocyte esterase Test strip Ql (U) 25 /ul Negative [facility] Urine pHOrdered By: Keenan hobson on 04-19-2023 pH (U) 7.0 [pH] 5.0 - 8.0 [facility] Urine sediment bacteria coun t by microscopy (number/high power field)Ordered By: Keenan Bowser on 04-19-2023 Bacteria LM.HPF (Urine sed) [#/Area] 0 /[HPF] None Seen [facility] Urine specific gravity measu rementOrdered By: Keenan Bowser on 04-19-2023 Specific gravity (U) [Rel density] 1.010 1.002-1.03 0 [facility] Urobilinogen Auto test strip Ql (U)Ordered By: Keenan Bowser on 04-19-2023 Urobilinogen Ql (U) Normal mg/dl Normal [facility] No Panel InformationOrdered By: Dr. Wells on 03-15-2023 Estimated GFR (MDRD) Amer 103 mL/min >60 [facility] Comment on above: GFR Calc Estimated GFR (MDRD) Non-Af Amer 85 mL/min >60 [facility] Comment on above: Non- GFR Calc Serum or plasma creatinine m easurement (mass/volume)Ordered By: Dr. Wells on 03-15-2023 Creatinine [Mass/Vol] 0.72 mg/dL 0.55-1.02 [facility] Comment on above: The validity of the calculated GFR & GFRAA in patients over 70 years has not been determined. Clinical correlation is essential. SANDOVAL SCREENINGon 02-27-2023 [facility] HbA1c (Bld)on 01-25-2023 Average glucose Estimated from glycated hemoglobin (Bld) [Mass/Vol] 114 mg/dL [facility] HbA1c (Bld) [Mass fraction] 5.6 % 4.3 - 5.6 % [facility] LIPID PANEL, NONFASTINGon Cholesterol [Mass/Vol] 160 mg/dL <200 mg/dL [facility] HDL Cholesterol, Nonfasting 56 mg/dL >39 mg/dL [facility] LDL Cholesterol, Nonfasting 80 mg/dL <100 mg/dL [facility] LDL/HDL Ratio, Nonfasting 1.43 mg/dL <2 .54 mg/dL [facility] Non HDL Cholesterol, Nonfasting 104 mg/dL <130 mg/dL [facility] Total Chol/HDL Ratio, Nonfasting 2.86 mg/dL <5.10 mg/dL [facility] Triglycerides, Nonfasting 121 mg/dL <150 mg/dL [facility] VLDL Cholesterol, Nonfasting 24 mg/dL <30 mg/dL [facility] STREP A MOLECULAR (POC)on Procedural Control Valid [facility] Strep A (POCT) Negative Negative [facility] Absolute lymphocyte counton 01-11-2022 Lymphocytes Auto (Unsp spec) [#/Vol] 3.88 10*3/uL 0.83-4.51 [facility] Work Phone: Basophil percentageon 2021 Basophils/100 WBC (Bld) 0.5 % 0-1 [facility] Work Phone: Bilirubin [Mass/Vol] 0.30 mg/dL 0.20-1.00 [facility] Work Phone: [phone] Comment on above: For patients on eltr ombopag therapy, use of Dimension [place] TBIL is not recommended. Chloride [Moles/Vol] 106 mmol/L 98-107 [facility] Work Phone: Eosinophils/100 WBC (Bld) 2.1 % 0-5 [facility] Work Phone: Glucose [Mass/Vol] 123 mg/dL 74-106 [facility] Work Phone: [phone] Comment on above: Fasting Glucose resu lt from 100 to 125 mg/dL suggests IMPAIRED HOMEOSTASIS per A.D.A. criteria. Neutrophils (Bld) [#/Vol] 3.3 10*3/uL 2.0-7.7 [facility] Work Phone: Neutrophils/100 WBC (Bld) 41.3 % 47-70 [facility] Work Phone: Potassium [Moles/Vol] 2.9 mmol/L 3.5-5.1 [facility] Work Phone: Protein [Mass/Vol] 7.4 g/dL 6.4-8.2 [facility] Work Phone: Sodium [Moles/Vol] 140 mmol/L 136-145 [facility] Work Phone: WBC (Bld) [#/Vol] 8.1 10*3/uL 4.4-11.0 [facility] Work Phone: Blood erythrocytes count (nu mber/volume)on 01-11-2022 RBC (Bld) [#/Vol] 4.10 10*6/uL 4.2-5.4 [facility] Work Phone: Blood hemoglobin measurement (mass/volume)on 01-11-2022 Hemoglobin (Bld) [Mass/Vol] 12.6 g/dL 12.0-15.0 [facility] Work Phone: Blood lymphocytes/100 leukoc yteson 01-11-2022 Lymphocytes/100 WBC (Bld) 48.2 % 19-41 [facility] Work Phone: Blood monocytes/100 leukocyt eson 01-11-2022 Monocytes/100 WBC (Bld) 7.7 % 0-10 [facility] Work Phone: [phone] Blood platelet mean volumeon 01-11-2022 Platelet mean volume (Bld) [Entitic vol] 10.5 fL 6.2-12.0 [facility] Work Phone: Determination of erythrocyte mean corpuscular volume (MCV)on 01-11-2022 MCV (RBC) [Entitic vol] 91.2 fL 81-99 [facility] Work Phone: Hematocrit Auto (Bld) [Volum e fraction]on 01-11-2022 Hematocrit (Bld) [Volume fraction] 37.4 % 37-47 [facility] Work Phone: Laboratory - Chemistry and C hemistry - challengeon 01-11-2022 ALP [Catalytic activity/Vol] 124 U/L 45-117 [facility] Work Phone: ALT [Catalytic activity/Vol] 37 U/L 13-56 [facility] Work Phone: [phone] CO2 [Moles/Vol] 27.0 mmol/L 21.0-32.0 [facility] Work Phone: [phone] Globulin (S) [Mass/Vol] 3.6 g/dL 2.2-4.2 [facility] Work Phone: [phone] Urea nitrogen/Creatinine [Mass ratio] 30.5 mg/mg 10-20 [facility] Work Phone: Laboratory - Hematology and Cell countson 01-11-2022 Erythrocyte distribution width (RBC) [Entitic vol] 44.7 fL 35.1-43.9 [facility] Work Phone: Erythrocyte distribution width (RBC) [Ratio] 13.2 % 11.6-14.6 [facility] Work Phone: Immature granulocytes/100 WBC (Bld) 0.200 % 0.0-0.9 [facility] Work Phone: Comment on above: IG% - Immature Granu locytes (promyelocytes, myelocytes and metamyelocytes) > 1% indicates that a LEFT SHIFT is Present. MCH (RBC) [Entitic mass] 30.7 pg 27.0-32.0 [facility] Work Phone: Nucleated RBC/100 WBC (Bld) [Ratio] 0 % 0-5 [facility] Work Phone: MCHC Auto (RBC) [Mass/Vol]on 01-11-2022 MCHC (RBC) [Mass/Vol] 33.7 g/dL 32-36 [facility] Work Phone: No Panel Informationon 01-11 Estimated Creatinine Clearance Calc 34.44 ml/min [facility] Work Phone: Estimated GFR (MDRD) Amer 92 mL/min >60 [facility] Work Phone: Comment on above: GFR Calc Estimated GFR (MDRD) Non-Af Amer 76 mL/min >60 [facility] Work Phone: Comment on above: Non- GFR Calc Platelets bldon 01-11-2022 Platelets (Bld) [#/Vol] 248 10*3/uL 150-450 [facility] Work Phone: Serum or plasma albumin nikunj urement (mass/volume)on 01-11-2022 Albumin [Mass/Vol] 3.8 g/dL 3.2-5.0 [facility] Work Phone: Serum or plasma albumin/glob ulin mass ratioon 01-11-2022 Albumin/Globulin [Mass ratio] 1.1 {ratio} 0.9-2.4 [facility] Work Phone: Serum or plasma calcium nikunj urement (mass/volume)on 01-11-2022 Calcium [Mass/Vol] 9.6 mg/dL 8.5-10.1 [facility] Work Phone: Serum or plasma creatinine m easurement (mass/volume)on 01-11-2022 Creatinine [Mass/Vol] 0.79 mg/dL 0.55-1.02 [facility] Work Phone: Comment on above: The validity of the calculated GFR & GFRAA in patients over 70 years has not been determined. Clinical correlation is essential. Serum or plasma urea nitroge n measurement (mass/volume)on 01-11-2022 Urea nitrogen [Mass/Vol] 24 mg/dL 7-18 [facility] Work Phone: Thin prep Papanicolaou smear with manual screeningon 01-11-2022 Thin prep Papanicolaou smear with manual screening 27 U/L 15-37 [facility] Work Phone: Thin prep Papanicolaou smear with manual screening 7 5-15 [facility] Work Phone: XR Chest PA and Lateralon IMPRESSION: No acute radiographic abnormality. Presser Hand: APRIL Transcribe Date/Time: Sep 12 2021 10:06A Dictated by : DM SINGLETON MD This examination was interpreted and the report reviewed and electronically signed by: DM SINGLETON MD on Sep 12 2021 10:06AM [facility] DIVISION OF RADIOLOGY * * *Final Report* * * DATE OF EXAM: Sep 12 2021 9:35AM WOX [id number] - XR CHEST 2V FRONTAL/LAT / PROCEDURE REASON: Cough * * * * Physician Interpretation * * * * EXAMINATION: CHEST RADIOGRAPH (2 VIEW FRONTAL & LATERAL) CLINICAL HISTORY: Cough MQ: [id number] EXAM DATE/TIME: 09/12/2021 9:35 AM COMPARISON: Chest x-ray dated July 12, 2019 RESULT: Lines, tubes, and devices: None. Lungs and pleura: No consolidation. No lung mass. No pleural effusion. No pneumothorax. Cardiomediastinal silhouette: Normal cardiomediastinal silhouette. Bones and soft tissues: Osseous demineralization. Stable curvature of the lower thoracic/lumbar spine. Mild degenerative changes in the spine. DIVISION OF RADIOLOGY Provider, Mary phoenix [place] - 09/12/2021 * * *Final Report* * * DATE OF EXAM: Sep 12 2021 9:35AM WOX [id number] - XR CHEST 2V FRONTAL/LAT / PROCEDURE REASON: Cough * * * * Physician Interpretation * * * * EXAMINATION: CHEST RADIOGRAPH (2 VIEW FRONTAL & LATERAL) CLINICAL HISTORY: Cough MQ: [id number] EXAM DATE/TIME: 09/12/2021 9:35 AM COMPARISON: Chest x-ray dated July 12, 2019 RESULT: Lines, tubes, and devices: None. Lungs and pleura: No consolidation. No lung mass. No pleural effusion. No pneumothorax. Cardiomediastinal silhouette: Normal cardiomediastinal silhouette. Bones and soft tissues: Osseous demineralization. Stable curvature of the lower thoracic/lumbar spine. Mild degenerative changes in the spine. IMPRESSION IMPRESSION: No acute radiographic abnormality. Presser Hand: PSCB Transcribe Date/Time: Sep 12 2021 10:06A Dictated by : DM SINGLETON MD This examination was interpreted and the report reviewed and electronically signed by: DM SINGLETON MD on Sep 12 2021 10:06AM EST [facility] Radiology Study observation (narrative) [facility] XR Chest PA and LateralOrder ed By: [facility] Provider on 09-12-2021 [facility] Vital Signs Date Time Vital Sign Value Performing Clinician Facility 05-20-2025 13:28-0400 Body temperature 98 [degF] Dr. Fabian Mcmullen MD Work Phone: [facility] 05-20-2025 13:28-0400 Body weight 44.[address] Fabian Mcmullen MD Work Phone: [facility] 05-20-2025 13:28-040 Diastolic blood pressure 63 mm[Hg] Dr. Fabian Mcmullen MD Work Phone: [facility] 05-20-2025 13:28-0400 Heart rate 85 /min Dr. Fabian Mcmullen MD Work Phone: [facility] 05-20-2025 13:28-0400 Respiratory rate 16 /min Dr. Fabian Mcmullen MD Work Phone: [facility] 05-20-2025 13:28-0400 SaO2% (BldA) [Mass fraction] 97 % Dr. Fabian Mcmullen MD Work Phone: [facility] 05-20-2025 13:28-0400 Systolic blood pressure 142 mm[Hg] Dr. Fabian Mcmullen MD Work Phone: [facility] 05-11-2025 13:48-0400 Body mass index (BMI) [Ratio] 19.79 kg/m2 Fabian Mcmullen MD Work Phone: [facility] 05-11-2025 13:48-0400 Body weight 44.45 kg Fabian Mcmullen MD Work Phone: [facility] 05-11-2025 13:48-0400 Diastolic blood pressure 60 mm[Hg] Fabian Mcmullen MD Work Phone: [facility] 05-11-2025 13:48-0400 Heart rate 84 /min Fabian Mcmullen MD Work Phone: [facility] 05-11-2025 13:48-0400 Respiratory rate 16 /min Fabian Mcmullen MD Work Phone: [facility] 05-11-2025 13:48-0400 Systolic blood pressure 126 mm[Hg] Fabian Mcmullen MD Work Phone: [facility] 04-15-2025 13:15-0400 Body temperature 98.2 [degF] Dr. Fabian Mcmullen MD Work Phone: [facility] 04-15-2025 13:15-0400 Body weight 43.[address] Fabian Mcmullen MD Work Phone: [facility] 04-15-2025 13:15-0400 Diastolic blood pressure 60 mm[Hg] Dr. Fabian Mcmullen MD Work Phone: [facility] 04-15-2025 13:15-0400 Heart rate 76 /min Dr. Fabian Mcmullen MD Work Phone: [facility] 04-15-2025 13:15-0400 Respiratory rate 16 /min Dr. Fabian Mcmullen MD Work Phone: [facility] 04-15-2025 13:15-0400 SaO2% (BldA) [Mass fraction] 99 % Dr. Fabian Mcmullen MD Work Phone: [facility] 04-15-2025 13:15-0400 Systolic blood pressure 136 mm[Hg] Dr. Fabian Mcmullen MD Work Phone: [facility] 03-17-2025 11:52-0400 Body mass index (BMI) [Ratio] 19.39 kg/m2 Constance Klein PA-C Work Phone: [facility] 03-17-2025 11:52-0400 Body temperature 97.11 [degF] Constance Klein PA-C Work Phone: [facility] 03-17-2025 11:52-0400 Body weight 43.55 kg Constance Klein PA-C Work Phone: [facility] 03-17-2025 11:52-0400 Diastolic blood pressure 62 mm[Hg] Constance Klein PA-C Work Phone: [facility] 03-17-2025 11:52-0400 Heart rate 73 /min Constance Klein PA-C Work Phone: [facility] 03-17-2025 11:52-0400 Respiratory rate 16 /min Constance Klein PA-C Work Phone: [facility] 03-17-2025 11:52-0400 SaO2% (BldA) [Mass fraction] 99 % Constance Klein PA-C Work Phone: [facility] 03-17-2025 11:52-0400 Systolic blood pressure 122 mm[Hg] Constance Klein PA-C Work Phone: [facility] 02-12-2025 13:35-0400 Body mass index (BMI) [Ratio] 19.67 kg/m2 Constance Klein PA-C Work Phone: [facility] 02-12-2025 13:35-0400 Body temperature 98.6 [degF] Constance Klein PA-C Work Phone: [facility] 02-12-2025 13:35-0400 Body weight 44.17 kg Constance Klein PA-C Work Phone: [facility] 02-12-2025 13:35-0400 Diastolic blood pressure 60 mm[Hg] Constance Klein PA-C Work Phone: [facility] 02-12-2025 13:35-0400 Heart rate 80 /min Constance Klein PA-C Work Phone: [facility] 02-12-2025 13:35-0400 Respiratory rate 16 /min Constance Klein PA-C Work Phone: [facility] 02-12-2025 13:35-0400 SaO2% (BldA) [Mass fraction] 96 % Constance Klein PA-C Work Phone: [facility] 02-12-2025 13:35-0400 Systolic blood pressure 128 mm[Hg] Constance Klein PA-C Work Phone: [facility] 01-29-2025 13:04-0400 Body mass index (BMI) [Ratio] 20.48 kg/m2 Katie Chaudhari APRN.CARDROOM MANAGER Work Phone: [facility] 01-29-2025 13:04-0400 Body weight 46 kg Katie Chaudhari APRN.CARDROOM MANAGER Work Phone: [facility] 01-29-2025 13:04-0400 Diastolic blood pressure 64 mm[Hg] Katie Chaudhari APRN.CARDROOM MANAGER Work Phone: [facility] 01-29-2025 13:04-0400 Heart rate 96 /min Katie Chaudhari APRN.CARDROOM MANAGER Work Phone: [facility] 01-29-2025 13:04-0400 Systolic blood pressure 108 mm[Hg] Katie Chaudhari APRN.CARDROOM MANAGER Work Phone: [facility] 01-26-2025 10:00-0400 Body temperature 98.9 [degF] Dr. Fabian Mcmullen MD Work Phone: [phone] [place] [address] 01-26-2025 10:00-0400 Diastolic blood pressure 78 mm[Hg] Dr. Fabian Mcmullen MD Work Phone: [phone] [place] [address] 01-26-2025 10:00-0400 Heart rate 89 /min Dr. Fabian Mcmullen MD Work Phone: [phone] [address] [place] [address] 01-26-2025 10:00-0400 Respiratory rate 16 /min Dr. Fabian Mcmullen MD Work Phone: 1(024)068-931896 [place] [address] 01-26-2025 10:00-0400 SaO2% (BldA) [Mass fraction] 98 % Dr. Fabian Mcmullen MD Work Phone: 8(589)488-953925 [place] [address] 01-26-2025 10:00-0400 Systolic blood pressure 118 mm[Hg] Dr. Fabian Mcmullen MD Work Phone: 6(922)256-808225 [place] [address] 01-26-2025 07:14-0400 Body height 152.[address] Fabian Mcmullen MD Work Phone: 4(610)169-502525 [place] [address] 01-26-2025 07:14-0400 Body mass index (BMI) [Ratio] 20.2 kg/m2 Dr. Fabian Mcmullen MD Work Phone: 8(422)211-986125 [place] [address] 01-26-2025 07:14-0400 Body weight 46.[address] Fabian Mcmullen MD Work Phone: 7(743)828-263825 [place] [address] 09-30-2024 10:16-0500 Body mass index (BMI) [Ratio] 20.2 kg/m2 Katie Chaudhari APRN.CARDROOM MANAGER Work Phone: [facility] 09-30-2024 10:16-0500 Body weight 45.36 kg Katie Chaudhari APRN.CARDROOM MANAGER Work Phone: [facility] 09-30-2024 10:16-0500 Diastolic blood pressure 71 mm[Hg] Katie Chaudhari APRN.CARDROOM MANAGER Work Phone: [facility] 09-30-2024 10:16-0500 Heart rate 90 /min Katie Chaudhari MODEL AND PATTERN SUPERVISOR.CARDROOM MANAGER Work Phone: [facility] 09-30-2024 10:16-0500 Respiratory rate 14 /min Katie Chaudhari MODEL AND PATTERN SUPERVISOR.CARDROOM MANAGER Work Phone: [facility] 09-30-2024 10:16-0500 SaO2% (BldA) [Mass fraction] 99 % Katie Chaudhari APRN.CARDROOM MANAGER Work Phone: [facility] 09-30-2024 10:16-0500 Systolic blood pressure 135 mm[Hg] Katie Chaudhari APRN.CARDROOM MANAGER Work Phone: [facility] 09-22-2024 11:30-0500 Body mass index (BMI) [Ratio] 20.4 kg/m2 Constance Klein PA-C Work Phone: [facility] 09-22-2024 11:30-0500 Body temperature 98.01 [degF] Constance Klein PA-C Work Phone: [facility] 09-22-2024 11:30-0500 Body weight 45.81 kg Constance Klein PA-C Work Phone: [facility] 09-22-2024 11:30-0500 Diastolic blood pressure 70 mm[Hg] Constance Klein PA-C Work Phone: [facility] 09-22-2024 11:30-0500 Heart rate 81 /min Constance Klein PA-C Work Phone: [facility] 09-22-2024 11:30-0500 Respiratory rate 16 /min Constance Klein PA-C Work Phone: [facility] 09-22-2024 11:30-0500 SaO2% (BldA) [Mass fraction] 96 % Constance Klein PA-C Work Phone: [facility] 09-22-2024 11:30-0500 Systolic blood pressure 127 mm[Hg] Constance Klein PA-C Work Phone: [facility] 09-08-2024 11:15-0500 Body mass index (BMI) [Ratio] 20.2 kg/m2 Constance Klein PA-C Work Phone: [facility] 09-08-2024 11:15-0500 Body temperature 97.9 [degF] Constance Klein PA-C Work Phone: [facility] 09-08-2024 11:15-0500 Body weight 45.36 kg Constance Klein PA-C Work Phone: [facility] 09-08-2024 11:15-0500 Diastolic blood pressure 69 mm[Hg] Constance Klein PA-C Work Phone: [facility] 09-08-2024 11:15-0500 Heart rate 88 /min Constance Klein PA-C Work Phone: [facility] 09-08-2024 11:15-0500 Respiratory rate 16 /min Constance Klein PA-C Work Phone: [facility] 09-08-2024 11:15-0500 SaO2% (BldA) [Mass fraction] 100 % Constance Klein PA-C Work Phone: [facility] 09-08-2024 11:15-0500 Systolic blood pressure 118 mm[Hg] Constance Klein PA-C Work Phone: [facility] 08-25-2024 11:25-0500 Body mass index (BMI) [Ratio] 20.24 kg/m2 Constance Klein PA-C Work Phone: [facility] 08-25-2024 11:25-0500 Body weight 45.45 kg Constance Klein PA-C Work Phone: [facility] 08-25-2024 11:25-0500 Diastolic blood pressure 62 mm[Hg] Constance Klein PA-C Work Phone: [facility] 08-25-2024 11:25-0500 Heart rate 97 /min Constance Klein PA-C Work Phone: [facility] 08-25-2024 11:25-0500 SaO2% (BldA) [Mass fraction] 100 % Constance RODRIGUESC Work Phone: [facility] 08-25-2024 11:25-0500 Systolic blood pressure 118 mm[Hg] Constance Klein PA-C Work Phone: [facility] 08-08-2024 13:12-0400 Diastolic blood pressure 68 mm[Hg] Fabian Mcmullen MD Work Phone: [facility] Comment on above: Aayush BP 08-08-2024 13:12-0400 Systolic blood pressure 164 mm[Hg] Fabian Mcmullen MD Work Phone: [facility] Comment on above: Aayush BP 08-08-2024 11:50-0400 Body height 149.9 cm Fabian Mcmullen MD Work Phone: [facility] 08-08-2024 11:50-0400 Body mass index (BMI) [Ratio] 20.4 kg/m2 Fabian Mcmullen MD Work Phone: [facility] 08-08-2024 11:50-0400 Body weight 45.81 kg Fabian Mcmullen MD Work Phone: [facility] 08-08-2024 11:50-0400 Heart rate 72 /min Fabian Mcmullen MD Work Phone: [facility] 08-08-2024 11:50-0400 Respiratory rate 16 /min Fabian Mcmullen MD Work Phone: [facility] 04-28-2024 09:00-0400 Body mass index (BMI) [Ratio] 19.66 kg/m2 Katie Chaudhari APRN.CNP Work Phone: [facility] 04-28-2024 09:00-0400 Body weight 44.91 kg Katie Chaudhari MODEL AND PATTERN SUPERVISOR.CARDROOM MANAGER Work Phone: [facility] 04-28-2024 09:00-0400 Diastolic blood pressure 73 mm[Hg] Katie Chaudhari MODEL AND PATTERN SUPERVISOR.CARDROOM MANAGER Work Phone: [facility] 04-28-2024 09:00-0400 Heart rate 75 /min Katie Chaudhari MODEL AND PATTERN SUPERVISOR.CARDROOM MANAGER Work Phone: [facility] 04-28-2024 09:00-0400 Respiratory rate 14 /min Katie Chaudhari MODEL AND PATTERN SUPERVISOR.CARDROOM MANAGER Work Phone: [facility] 04-28-2024 09:00-0400 Systolic blood pressure 153 mm[Hg] Katie Chaudhari MODEL AND PATTERN SUPERVISOR.CARDROOM MANAGER Work Phone: [facility] 02-07-2024 13:38-0400 Body mass index (BMI) [Ratio] 19.46 kg/m2 Constance Klein PA-C Work Phone: [facility] 02-07-2024 13:38-0400 Body temperature 98.4 [degF] Constance Klein PA-C Work Phone: [facility] 02-07-2024 13:38-0400 Body weight 44.45 kg Constance Klein PA-C Work Phone: [facility] 02-07-2024 13:38-0400 Diastolic blood pressure 58 mm[Hg] Constance Klein PA-C Work Phone: [facility] 02-07-2024 13:38-0400 Heart rate 79 /min Constance Klein PA-C Work Phone: [facility] 02-07-2024 13:38-0400 Respiratory rate 16 /min Constance Klein PA-C Work Phone: [facility] 02-07-2024 13:38-0400 SaO2% (BldA) [Mass fraction] 98 % Constance Klein PA-C Work Phone: [facility] 02-07-2024 13:38-0400 Systolic blood pressure 130 mm[Hg] Constance Klein PA-C Work Phone: [facility] 12-20-2023 12:53-0500 Body temperature 99 [degF] Constance Klein PA-C Work Phone: [facility] 12-20-2023 12:53-0500 Body weight 44.91 kg Constance Klein PA-C Work Phone: [facility] 12-20-2023 12:53-0500 Diastolic blood pressure 60 mm[Hg] Constance Klein PA-C Work Phone: [facility] 12-20-2023 12:53-0500 Heart rate 100 /min Constance Klein PA-C Work Phone: [facility] 12-20-2023 12:53-0500 Respiratory rate 16 /min Constance Klein PA-C Work Phone: [facility] 12-20-2023 12:53-0500 SaO2% (BldA) [Mass fraction] 97 % Constance Klein PA-C Work Phone: [facility] 12-20-2023 12:53-0500 Systolic blood pressure 116 mm[Hg] Constance Klein PA-C Work Phone: [facility] 12-04-2023 08:06-0500 Body temperature 97.3 [degF] Alexei Kruger MD Work Phone: [facility] 12-04-2023 08:06-0500 Body weight 44.36 kg Alexei Kruger MD Work Phone: [facility] 11-27-2023 14:00-0500 Diastolic blood pressure 51 mm[Hg] Dr. Fabian Mcmullen Work Phone: [facility] 11-27-2023 14:00-0500 Heart rate 75 /min Dr. Fabian Mcmullen Work Phone: [facility] 11-27-2023 14:00-0500 Respiratory rate 12 /min Dr. Fabian Mcmullen Work Phone: [facility] 11-27-2023 14:00-0500 SaO2% (BldA) [Mass fraction] 99 % Dr. Fabian Mcmullen Work Phone: [facility] 11-27-2023 14:00-0500 Systolic blood pressure 106 mm[Hg] Dr. Fabian Mcmullen Work Phone: [facility] 11-26-2023 23:46-0500 Body height 152.[address] Fabian Mcmullen Work Phone: [facility] 11-26-2023 23:46-0500 Body temperature 97.3 [degF] Dr. Fabian Mcmullen Work Phone: [facility] 11-16-2023 10:22-0500 Body temperature 97.7 [degF] Fabian Mcmullen MD Work Phone: [facility] 11-16-2023 10:22-0500 Body weight 44 kg Fabian Mcmullen MD Work Phone: [facility] 11-16-2023 10:22-0500 Diastolic blood pressure 74 mm[Hg] Fabian Mcmullen MD Work Phone: [facility] 11-16-2023 10:22-0500 Heart rate 76 /min Fabian Mcmullen MD Work Phone: [facility] 11-16-2023 10:22-0500 Respiratory rate 16 /min Fabian Mcmullen MD Work Phone: [facility] 11-16-2023 10:22-0500 Systolic blood pressure 148 mm[Hg] Fabian Mcmullen MD Work Phone: [facility] 08-08-2023 17:00-0400 Body height 151.1 cm Fabian Mcmullen MD Work Phone: [facility] 08-08-2023 17:00-0400 Body weight 42.64 kg Fabian Mcmullen MD Work Phone: [facility] 08-08-2023 17:00-0400 Diastolic blood pressure 68 mm[Hg] Fabian Mcmullen MD Work Phone: [facility] 08-08-2023 17:00-0400 Heart rate 84 /min Fabian Mcmullen MD Work Phone: [facility] 08-08-2023 17:00-0400 Respiratory rate 16 /min Fabian Mcmullen MD Work Phone: [facility] 08-08-2023 17:00-0400 Systolic blood pressure 128 mm[Hg] Fabian Mcmullen MD Work Phone: [facility] 08-03-2023 11:40-0400 Body temperature 99.3 [degF] Daniela Athy PA-C Work Phone: [facility] 08-03-2023 11:40-0400 Body weight 42.64 kg Daniela Athy PA-C Work Phone: [facility] 08-03-2023 11:40-0400 Diastolic blood pressure 73 mm[Hg] Daniela Athy PA-C Work Phone: [facility] 08-03-2023 11:40-0400 Heart rate 80 /min Daniela Athy PA-C Work Phone: [facility] 08-03-2023 11:40-0400 Respiratory rate 20 /min Daniela Athy PA-C Work Phone: [facility] 08-03-2023 11:40-0400 SaO2% (BldA) [Mass fraction] 98 % Daniela Athy PA-C Work Phone: [facility] 08-03-2023 11:40-0400 Systolic blood pressure 126 mm[Hg] Daniela Athy PA-C Work Phone: [facility] 07-11-2023 09:49-0400 Body height 152.[address] Fabian Mcmullen Work Phone: [facility] 07-11-2023 09:49-0400 Body mass index (BMI) [Ratio] 17.9 kg/m2 Dr. Fabian Mcmullen Work Phone: [facility] 07-11-2023 09:49-0400 Body weight 41.[address] Fabian Mcmullen Work Phone: [facility] 07-11-2023 09:49-0400 Diastolic blood pressure 72 mm[Hg] Dr. Fabian Mcmullen Work Phone: [facility] 07-11-2023 09:49-0400 Heart rate 74 /min Dr. Fabian Mcmullen Work Phone: [facility] 07-11-2023 09:49-0400 Respiratory rate 16 /min Dr. Fabian Mcmullen Work Phone: [facility] 07-11-2023 09:49-0400 Systolic blood pressure 134 mm[Hg] Dr. Fabian Mcmullen Work Phone: [facility] 05-14-2023 10:27-0400 Body weight 41.73 kg Katie Chaudhari MODEL AND PATTERN SUPERVISOR.CARDROOM MANAGER Work Phone: [facility] 05-14-2023 10:27-0400 Diastolic blood pressure 64 mm[Hg] Katie Chaudhari APRN.CARDROOM MANAGER Work Phone: [facility] 05-14-2023 10:27-0400 Heart rate 72 /min Katie Chaudhari APRN.CARDROOM MANAGER Work Phone: [facility] 05-14-2023 10:27-0400 Respiratory rate 14 /min Katie Chaudhari APRN.CARDROOM MANAGER Work Phone: [facility] 05-14-2023 10:27-0400 Systolic blood pressure 120 mm[Hg] Katie Chaudhari APRN.CARDROOM MANAGER Work Phone: [facility] 05-01-2023 10:22-0400 Body temperature 98.2 [degF] Dr. Fabian Mcmullen Work Phone: [facility] 05-01-2023 10:22-0400 Diastolic blood pressure 62 mm[Hg] Dr. Fabian Mcmullen Work Phone: [facility] 05-01-2023 10:22-0400 Heart rate 77 /min Dr. Fabian Mcmullen Work Phone: 1(992)531-541725 [place] [address] 05-01-2023 10:22-0400 Respiratory rate 16 /min Dr. Fabian Mcmullen Work Phone: 5(243)393-881096 [place] [address] 05-01-2023 10:22-0400 SaO2% (BldA) [Mass fraction] 97 % Dr. Fabian Mcmullen Work Phone: 1(356)053-132096 [place] [address] 05-01-2023 10:22-0400 Systolic blood pressure 157 mm[Hg] Dr. Fabian Mcmullen Work Phone: 5(432)140-578696 [place] [address] 05-01-2023 03:05-0400 Body mass index (BMI) [Ratio] 18.4 kg/m2 Dr. Fabian Mcmullen Work Phone: 3(326)909-858996 [place] [address] 05-01-2023 03:05-0400 Body weight 42.[address] Fabian Mcmullen Work Phone: 1(934)351-841796 [place] [address] 04-27-2023 08:58-0400 Body temperature 98 [degF] Dr. Fabian Mcmullen Work Phone: 5(839)877-424396 [place] [address] 04-27-2023 08:58-0400 Diastolic blood pressure 55 mm[Hg] Dr. Fabian Mcmullen Work Phone: 2(633)154-733796 [place] [address] 04-27-2023 08:58-0400 Heart rate 84 /min Dr. Fabian Mcmullen Work Phone: 4(297)979-106796 [place] [address] 04-27-2023 08:58-0400 Respiratory rate 14 /min Dr. Fabian Mcmullen Work Phone: 1(691)573-960196 [place] [address] 04-27-2023 08:58-0400 SaO2% (BldA) [Mass fraction] 99 % Dr. Fabian Mcmullen Work Phone: 4(226)443-660796 [place] [address] 04-27-2023 08:58-0400 Systolic blood pressure 141 mm[Hg] Dr. Fabian Mcmullen Work Phone: 0(695)246-234496 [place] [address] 04-27-2023 05:45-0400 Body height 152.[address] Fabian Mcmullen Work Phone: 0(260)407-562596 [place] [address] 04-27-2023 05:45-0400 Body mass index (BMI) [Ratio] 19.3 kg/m2 Dr. Fabian Mcmullen Work Phone: [facility] 04-27-2023 05:45-0400 Body weight [address] Fabian Mcmullen Work Phone: [facility] 04-23-2023 13:45-0400 Body temperature 98.49 [degF] Fabian Mcmullen MD Work Phone: [facility] 04-23-2023 13:45-0400 Body weight 43.09 kg Fabian Mcmullen MD Work Phone: 4(062)893-451700 [place] [address] 04-23-2023 13:45-0400 Diastolic blood pressure 64 mm[Hg] Fabian Mcmullen MD Work Phone: 9(956)018-437700 [place] [address] 04-23-2023 13:45-0400 Heart rate 89 /min Fabian Mcmullen MD Work Phone: [facility] 04-23-2023 13:45-0400 Respiratory rate 18 /min Fabian Mcmullen MD Work Phone: [facility] 04-23-2023 13:45-0400 SaO2% (BldA) [Mass fraction] 99 % Fabian Mcmullen MD Work Phone: [facility] 04-23-2023 13:45-0400 Systolic blood pressure 116 mm[Hg] Fabian Mcmullen MD Work Phone: [facility] 04-19-2023 08:30-0400 Respiratory rate 18 /min Dr. Fabian Mcmullen Work Phone: [facility] 04-19-2023 06:31-0400 Body height 152.[address] Fabian Mcmullen Work Phone: [facility] 04-19-2023 06:31-0400 Body mass index (BMI) [Ratio] 19.8 kg/m2 Dr. Fabian Mcmullen Work Phone: 3(510)822-128025 [place] [address] 04-19-2023 06:31-0400 Body temperature 98.7 [degF] Dr. Fabian Mcmullen Work Phone: 3(628)163-852625 [place] [address] 04-19-2023 06:31-0400 Body weight 46.[address] Fabian Mcmullen Work Phone: 2(763)669-193496 [place] [address] 04-19-2023 06:31-0400 Diastolic blood pressure 60 mm[Hg] Dr. Fabian Mcmullen Work Phone: 5(257)043-083796 [place] [address] 04-19-2023 06:31-0400 Heart rate 86 /min Dr. Fabian Mcmullen Work Phone: 9(915)823-863796 [place] [address] 04-19-2023 06:31-0400 SaO2% (BldA) [Mass fraction] 97 % Dr. Fabian Mcmullen Work Phone: 8(067)513-385496 [place] [address] 04-19-2023 06:31-0400 Systolic blood pressure 143 mm[Hg] Dr. Fabian Mcmullen Work Phone: 0(736)801-004696 [place] [address] 04-18-2023 15:26-0400 Body temperature 98.2 [degF] Dr. Fabian Mcmullen Work Phone: 7(538)812-843096 [place] [address] 04-18-2023 15:26-0400 Body weight 45.[address] Fabian Mcmullen Work Phone: 4(734)839-754596 [place] [address] 04-18-2023 15:26-0400 Diastolic blood pressure 67 mm[Hg] Dr. Fabian Mcmullen Work Phone: 3(266)296-375796 [place] [address] 04-18-2023 15:26-0400 Heart rate 75 /min Dr. Fabian Mcmullen Work Phone: 4(625)446-202596 [place] [address] 04-18-2023 15:26-0400 Respiratory rate 16 /min Dr. Fabian Mcmullen Work Phone: 3(045)272-042896 [place] [address] 04-18-2023 15:26-0400 SaO2% (BldA) [Mass fraction] 99 % Dr. Fabian Mcmullen Work Phone: 1(105)492-170296 [place] [address] 04-18-2023 15:26-0400 Systolic blood pressure 155 mm[Hg] Dr. Fabian Mcmullen Work Phone: [facility] 03-15-2023 13:08-0400 Body weight 43.[address] Fabian Mcmullen Work Phone: [facility] 03-15-2023 13:08-0400 Diastolic blood pressure 68 mm[Hg] Dr. Fabian Mcmullen Work Phone: [facility] 03-15-2023 13:08-0400 Heart rate 70 /min Dr. Fabian Mcmullen Work Phone: [facility] 03-15-2023 13:08-0400 Respiratory rate 16 /min Dr. Fabian Mcmullen Work Phone: [facility] 03-15-2023 13:08-0400 SaO2% (BldA) [Mass fraction] 98 % Dr. Fabian Mcmullen Work Phone: [facility] 03-15-2023 13:08-0400 Systolic blood pressure 148 mm[Hg] Dr. Fabian Mcmullen Work Phone: [facility] 02-09-2023 12:19-0400 Diastolic blood pressure 56 mm[Hg] Constance Klein PA-C Work Phone: [facility] 02-09-2023 12:19-0400 Heart rate 66 /min Constance Klein PA-C Work Phone: [facility] 02-09-2023 12:19-0400 Systolic blood pressure 140 mm[Hg] Constance Klein PA-C Work Phone: [facility] 02-09-2023 11:57-0400 Body temperature 98.4 [degF] Constance Klein PA-C Work Phone: [facility] 02-09-2023 11:57-0400 Body weight 43.26 kg Constance Klein PA-C Work Phone: [facility] 02-09-2023 11:57-0400 Respiratory rate 16 /min Constance Klein PA-C Work Phone: [facility] 01-24-2023 16:18-0400 Diastolic blood pressure 70 mm[Hg] Fabian Mcmullen MD Work Phone: [facility] 01-24-2023 16:18-0400 Systolic blood pressure 172 mm[Hg] Fabian Mcmullen MD Work Phone: [facility] 01-24-2023 15:59-0400 Body weight 42.64 kg Fabian Mcmullen MD Work Phone: [facility] 01-24-2023 15:59-0400 Heart rate 64 /min Fabian Mcmullen MD Work Phone: [facility] 01-24-2023 15:59-0400 Respiratory rate 16 /min Fabian Mcmullen MD Work Phone: [facility] 01-16-2023 09:36-0400 Body temperature 97.81 [degF] Katie Chaudhari APRN.CARDROOM MANAGER Work Phone: [facility] 01-16-2023 09:36-0400 Body weight 42.19 kg Katie Chaudhari APRN.CARDROOM MANAGER Work Phone: [facility] 01-16-2023 09:36-0400 Diastolic blood pressure 60 mm[Hg] Katie Chaudhari APRN.CARDROOM MANAGER Work Phone: [facility] 01-16-2023 09:36-0400 Heart rate 76 /min Katie Chaudhari APRN.CARDROOM MANAGER Work Phone: [facility] 01-16-2023 09:36-0400 Respiratory rate 14 /min Katie Chaudhari APRN.CARDROOM MANAGER Work Phone: [facility] 01-16-2023 09:36-0400 SaO2% (BldA) [Mass fraction] 99 % aKtie Chaudhari APRN.CARDROOM MANAGER Work Phone: [facility] 01-16-2023 09:36-0400 Systolic blood pressure 126 mm[Hg] Katie Chaudhari APRN.CARDROOM MANAGER Work Phone: [facility] 12-21-2022 08:27-0500 Body temperature 98.29 [degF] Fabian Mcmullen MD Work Phone: [facility] 12-21-2022 08:27-0500 Body weight 42.19 kg Fabian Mcmullen MD Work Phone: [facility] 12-21-2022 08:27-0500 Diastolic blood pressure 70 mm[Hg] Fabian Mcmullen MD Work Phone: [facility] 12-21-2022 08:27-0500 Heart rate 71 /min Fabian Mcmullen MD Work Phone: [facility] 12-21-2022 08:27-0500 Respiratory rate 14 /min Fabian Mcmullen MD Work Phone: [facility] 12-21-2022 08:27-0500 SaO2% (BldA) [Mass fraction] 100 % Fabian Mcmullen MD Work Phone: [facility] 12-21-2022 08:27-0500 Systolic blood pressure 128 mm[Hg] Fabian Mcmullen MD Work Phone: [facility] 12-11-2022 08:16-0500 Body temperature 99 [degF] Nikky John MODEL AND PATTERN SUPERVISOR.CARDROOM MANAGER Work Phone: [facility] 12-11-2022 08:16-0500 Body weight 42.27 kg Nikky John MODEL AND PATTERN SUPERVISOR.CARDROOM MANAGER Work Phone: [facility] 12-11-2022 08:16-0500 Diastolic blood pressure 78 mm[Hg] Nikky John MODEL AND PATTERN SUPERVISOR.CARDROOM MANAGER Work Phone: [facility] 12-11-2022 08:16-0500 Heart rate 85 /min Inkky John MODEL AND PATTERN SUPERVISOR.CARDROOM MANAGER Work Phone: [facility] 12-11-2022 08:16-0500 Respiratory rate 16 /min Nikky John MODEL AND PATTERN SUPERVISOR.CARDROOM MANAGER Work Phone: [facility] 12-11-2022 08:16-0500 SaO2% (BldA) [Mass fraction] 100 % Nikky John MODEL AND PATTERN SUPERVISOR.CARDROOM MANAGER Work Phone: [facility] 12-11-2022 08:16-0500 Systolic blood pressure 124 mm[Hg] Nikky Trujilloutzman MODEL AND PATTERN SUPERVISOR.CARDROOM MANAGER Work Phone: [facility] 09-06-2022 15:50-0500 Body temperature 99.39 [degF] Joelle Zurawick MODEL AND PATTERN SUPERVISOR.CARDROOM MANAGER Work Phone: [facility] 09-06-2022 15:50-0500 Body weight 42.82 kg Joelle Zurawick MODEL AND PATTERN SUPERVISOR.CARDROOM MANAGER Work Phone: [facility] 09-06-2022 15:50-0500 Diastolic blood pressure 58 mm[Hg] Joelle Zurawick MODEL AND PATTERN SUPERVISOR.CARDROOM MANAGER Work Phone: [facility] 09-06-2022 15:50-0500 Heart rate 89 /min Joelle Zurawick MODEL AND PATTERN SUPERVISOR.CARDROOM MANAGER Work Phone: [facility] 09-06-2022 15:50-0500 Respiratory rate 16 /min Joelle Zurawick MODEL AND PATTERN SUPERVISOR.CARDROOM MANAGER Work Phone: [facility] 09-06-2022 15:50-0500 SaO2% (BldA) [Mass fraction] 97 % Jeolle Zurawick MODEL AND PATTERN SUPERVISOR.CARDROOM MANAGER Work Phone: [facility] 09-06-2022 15:50-0500 Systolic blood pressure 138 mm[Hg] Joelle Zurawick MODEL AND PATTERN SUPERVISOR.CARDROOM MANAGER Work Phone: [facility] 08-09-2022 15:20-0400 Body weight 42.82 kg Joelle Zurawick MODEL AND PATTERN SUPERVISOR.CARDROOM MANAGER Work Phone: [facility] 08-09-2022 15:20-0400 Diastolic blood pressure 58 mm[Hg] Joelle Zurawick MODEL AND PATTERN SUPERVISOR.CARDROOM MANAGER Work Phone: [facility] 08-09-2022 15:20-0400 Heart rate 70 /min Joelle Zurawick MODEL AND PATTERN SUPERVISOR.CARDROOM MANAGER Work Phone: [facility] 08-09-2022 15:20-0400 Respiratory rate 14 /min Joelle Zurawick MODEL AND PATTERN SUPERVISOR.CARDROOM MANAGER Work Phone: [facility] 08-09-2022 15:20-0400 Systolic blood pressure 140 mm[Hg] Joelle Zurrosyck MODEL AND PATTERN SUPERVISOR.CARDROOM MANAGER Work Phone: [facility] 07-26-2022 15:41-0400 Diastolic blood pressure 64 mm[Hg] Fabian Mcmullen MD Work Phone: [facility] 07-26-2022 15:41-0400 Systolic blood pressure 152 mm[Hg] Fabian Mcmullen MD Work Phone: [facility] 07-26-2022 15:20-0400 Body height 152.4 cm Fabian Mcmullen MD Work Phone: [facility] 07-26-2022 15:20-0400 Body weight 42.64 kg Fabian Mcmullen MD Work Phone: [facility] 07-26-2022 15:20-0400 Heart rate 70 /min Fabian Mcmullen MD Work Phone: [facility] 07-26-2022 15:20-0400 Respiratory rate 14 /min Fabian Mcmullen MD Work Phone: [facility] 01-11-2022 15:29-0400 Diastolic blood pressure 60 mm[Hg] [facility] Work Phone: 01-11-2022 15:29-0400 Heart rate 73 /min [facility] Work Phone: 01-11-2022 15:29-0400 Respiratory rate 17 /min [facility] Work Phone: 01-11-2022 15:29-0400 SaO2% (BldA) [Mass fraction] 98 % [facility] Work Phone: 01-11-2022 15:29-0400 Systolic blood pressure 133 mm[Hg] [facility] Work Phone: 01-11-2022 13:06-0400 Body height 152.4 cm [facility] Work Phone: 01-11-2022 13:06-0400 Body mass index (BMI) [Ratio] 18.7 kg/m2 [facility] Work Phone: 01-11-2022 13:06-0400 Body temperature 97.6 [degF] [facility] Work Phone: 01-11-2022 13:06-0400 Body weight 43.54 kg [facility] Work Phone: Encounters Encounter Date Encounter Type Care Provider Facility Start: 05-22-2025 ambulatory Deb Cheung Facility:[facility] Start: 05-20-2025 End: 05-20-2025 Patient encounter procedure Deb LEAL -[facility] Work Phone: Start: 05-20-2025 End: 05-20-[address] Fabian Mcmullen MD Work Phone: -[facility] Start: 05-18-2025 ambulatory Fabian Mcmullen Facility :[facility] Start: 05-18-2025 End: 05-18-2025 Chart abstracting Fabian Mcmullen MD Work Phone: [facility] [place] Comment on above: Abstract (Non [facility] te sting - Renal Artery US) Start: 05-15-2025 Non-patient / Non-visit Dr. Sacha Wells MD -[facility] Start: 05-15-2025 Patient encounter procedure Deb LEAL -Cardiovascular Services Work Phone: Start: 05-15-2025 ambulatory Fabian Mcmullen Facility :[facility] Start: 05-13-2025 End: 05-13-2025 Telephone encounter Fabian Mcmullen MD Work Phone: [facility] [place] Comment on above: Patient Question Start: 05-12-2025 End: 05-13-2025 Follow-up encounter Fabian Mcmullen MD Work Phone: [facility] [place] Comment on above: Results Start: 05-11-2025 End: 05-11-2025 ambulatory FABIAN MCMULLEN Facility:[facility] Start: 05-11-2025 End: 05-11-2025 Patient encounter procedure Fabian Mcmullen MD Work Phone: [facility] [place] Comment on above: Bacterial sinusitis (Primary Dx); Temporal pain; Arthralgia of right temporomandibular joint Start: 05-11-2025 End: 05-11-2025 ambulatory FABIAN MCMULLEN Facility:[facility] Start: 04-27-2025 End: 04-27-2025 Chart abstracting Fabian Mcmullen MD Work Phone: [facility] [place] Comment on above: Outside Testing (Car otid US) Start: 04-24-2025 Non-patient / Non-visit Dr. Sacha Wells MD -[facility] Start: 04-24-2025 End: 04-24-2025 Patient encounter procedure Deb LEAL -Cardiovascular Services Work Phone: Start: 04-24-2025 End: 04-24-[address] Fabian Mcmullen MD Work Phone: -Cardiovascular Services Start: 04-15-2025 End: 04-15-[address] Alexei Wells MD -[facility] Work Phone: Start: 04-15-2025 End: 04-15-[address] Fabian Mcmullen MD Work Phone: -[facility] Start: 03-18-2025 End: 03-18-2025 Follow-up encounter Constance Klein PA-C Work Phone: [facility] [place] Comment on above: Results Start: 03-17-2025 End: 03-17-2025 ambulatory FABIAN MCMULLEN Facility:[facility] Start: 03-17-2025 End: 03-17-2025 Office outpatient visit 25 minutes Constance Klein PA-C Work Phone: [facility] [place] Comment on above: Essential hypertensi on, benign (Primary Dx); LALO (generalized anxiety disorder); Elevated hemoglobin A1c; Insomnia, unspecified type; Age-related osteoporosis without current pathological fracture; 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 dysplasia of both carotid arteries; Nocturia Start: 03-17-2025 End: 03-17-2025 ambulatory CONSTANCE KLEIN Facility:[facility] Start: 03-10-2025 End: 03-10-2025 Follow-up encounter Constance Klein PA-C Work Phone: [facility] [place] Start: 03-06-2025 End: 03-06-2025 ambulatory CONSTANCE KLEIN Facility:[facility] Start: 03-04-2025 End: 03-04-2025 Patient encounter procedure Aleksandar Quigley DO [facility] Work Phone: Start: 03-04-2025 End: 03-04-[address] Fabian Mcmullen MD Work Phone: [facility] Work Phone: Start: 03-02-2025 End: 03-02-2025 Refill Fabian Mcmullen MD Work Phone: [facility] [place] Comment on above: Refill Request Start: 02-26-2025 End: 02-26-2025 Chart abstracting Fabian Mcmullen MD Work Phone: [facility] [place] Comment on above: Outside Pbos-Cvo-WIG Ordered Start: 02-20-2025 End: 02-20-2025 Chart abstracting Fabian Mcmullen MD Work Phone: [facility] [place] Comment on above: Outside Lmjn-Rpz-PLX Ordered Start: 02-20-2025 End: 02-20-[address] Fabian Mcmullen MD Work Phone: [facility] Work Phone: Start: 02-20-2025 End: 02-20-2025 Patient encounter procedure Aleksandarprasad Quigley DO -Laboratory Work Phone: Start: 02-20-2025 End: 02-20-2025 Patient encounter procedure Aleksandar Dann [facility] Work Phone: Start: 02-20-2025 End: 02-20-2025 ambulatory Fabian Mcmullen [place] Start: 02-20-2025 End: 02-20-2025 ambulatory Fabian Mcmullen Facility:[facility] Start: 02-16-2025 End: 02-17-2025 Follow-up encounter Constance Klein PA-C Work Phone: [facility] [place] Start: 02-16-2025 End: 02-17-2025 Telephone encounter Fabian Mcmullen MD Work Phone: [facility] [place] Start: 02-13-2025 End: 02-13-2025 ambulatory CONSTANCE KLEIN Facility:[facility] Start: 02-12-2025 End: 02-12-2025 Office outpatient visit 25 minutes Constance Klein PA-C Work Phone: [facility] [place] Comment on above: Diarrhea, unspecifie d type (Primary Dx); Diverticulosis; Diverticulitis; History of Clostridium difficile colitis; Anemia, unspecified type; Sore throat Start: 02-12-2025 End: 02-12-2025 ambulatory CONSTANCEHa KLEIN Facility:[facility] Start: 02-11-2025 End: 02-11-2025 Telephone encounter Fabian Mcmullen MD Work Phone: [facility] [place] Comment on above: Patient Question Start: 02-09-2025 End: 02-09-2025 ambulatory FABIAN MCMULLEN Facility:[facility] Start: 01-29-2025 End: 01-29-2025 Patient encounter procedure Katie Chaudhari APRN.CARDROOM MANAGER Work Phone: [facility] [place] Comment on above: Diverticulitis (Prim ashlyn Dx); History of Clostridium difficile colitis; Diarrhea, unspecified type Start: 01-29-2025 End: 01-29-2025 ambulatory KATIE CHAUDHARI Facility:[facility] Start: 01-27-2025 End: 01-27-2025 Chart abstracting Sol Lowery MA [facility] [place] Comment on above: ER F/U ([facility] ER ) Start: 01-27-2025 End: 01-27-2025 Telephone encounter Fabian Mcmullen MD Work Phone: [facility] [place] Comment on above: Patient Update Start: 01-26-2025 End: 01-26-2025 Emergency department patient visit Dr. Fabian Mcmullen MD Work Phone: -Emergency Department Work Phone: Start: 12-15-2024 End: 12-15-2024 Refill Fabian Mcmullen MD Work Phone: [address] [place] [address] Comment on above: Refill Request Start: 10-06-2024 End: 10-06-2024 Refill Fabian Mcmullen MD Work Phone: [facility] Comment on above: Refill Request Start: 09-30-2024 End: 09-30-2024 Patient encounter procedure Katie Chaudhari MODEL AND PATTERN SUPERVISOR.CARDROOM MANAGER Work Phone: [facility] [place] Comment on above: URI, acute (Primary Dx) Start: 09-30-2024 End: 09-30-2024 ambulatory KATIE CHAUDHARI Facility:[facility] Start: 09-29-2024 End: 09-30-2024 Telephone encounter Fabian Mcmullen MD Work Phone: [facility] [place] Comment on above: Future Appointment Results Start: 09-26-2024 End: 09-26-2024 ambulatory FABIAN MCMULLEN Facility:[facility] Start: 09-26-2024 End: 09-26-2024 Subsequent hospital visit by physician Bone Density [facility] Work Phone: Radiology Comment on above: Age-related osteopor osis without current pathological fracture [M81.0] Start: 09-22-2024 End: 09-22-2024 ambulatory FABIAN MCMULLEN Facility:[facility] Start: 09-22-2024 End: 09-22-2024 Patient encounter procedure Constance Klein PA-C Work Phone: [facility] [place] Comment on above: Essential hypertensi on, benign (Primary Dx) Start: 09-09-2024 End: 09-09-2024 Refill Fabian Mcmullen MD Work Phone: [facility] [place] Comment on above: Refill Request Results Start: 09-08-2024 End: 09-08-2024 Office outpatient visit 25 minutes Constance Klein PA-C Work Phone: [facility] [place] Comment on above: Primary hypertension Start: 09-08-2024 End: 09-08-2024 ambulatory FABIAN MCMULLEN Facility:[facility] Start: 08-25-2024 End: 08-25-2024 ambulatory FABIAN MCMULLEN Facility:[facility] Start: 08-25-2024 End: 08-25-2024 Patient encounter procedure Constance Klein PA-C Work Phone: [facility] [place] Comment on above: Essential hypertensi on, benign (Primary Dx) Start: 08-08-2024 End: 08-08-2024 ambulatory FABIAN MCMULLEN Facility:[facility] Start: 08-08-2024 End: 08-08-2024 Patient encounter procedure Fabian Mcmullen MD Work Phone: [facility] [place] Comment on above: Encounter for Medica re annual wellness exam (Primary Dx); Essential hypertension, benign; Elevated hemoglobin A1c; 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 dysplasia of both carotid arteries (HCC); LALO (generalized anxiety disorder); Mild AI (aortic insufficiency); Age-related osteoporosis without current pathological fracture; Advance directive discussed with patient; Screening for depression; Elevated LFTs; High vitamin D level; Insomnia, unspecified type Start: 07-31-2024 End: 07-31-2024 Telephone encounter Constance Klein PA-C Work Phone: [facility] [place] Comment on above: Results Start: 07-30-2024 End: 07-30-2024 ambulatory CONSTANCE KLEIN Facility:[facility] Start: 07-14-2024 End: 07-14-2024 Refill Fabian Mcmullen MD Work Phone: [facility] [place] Comment on above: Patient had refill-e nc not needed Start: 06-06-2024 End: 06-06-2024 Refill Fabian Mcmullen MD Work Phone: [facility] [place] Comment on above: Refill Request Start: 05-26-2024 Refill Fabian obrien MD Work Phone: [facility] [place] Comment on above: Refill Request Start: 05-05-2024 Chart abstracting Sol Jeovany MA [facility] [place] Comment on above: Results ([facility] ) Start: 04-28-2024 ambulatory Noemi Delacruz RN NURSE DIE LAY OUT WORKER Comment on above: Arm Injury (Bruising , discomfort and swelling of right forearm) Start: 04-28-2024 End: 04-28-2024 Patient encounter procedure Katie Chaudhari APRN.CNP Work Phone: [facility] [place] Comment on above: Hematoma and contusi on (Primary Dx) Start: 03-28-2024 Refill Fabian obrien MD Work Phone: [facility] [place] Comment on above: Refill Request Start: 03-12-2024 Refill Fabian obrien MD Work Phone: [facility] Start: 02-07-2024 End: 02-07-2024 Patient encounter procedure Constance Klein PA-C Work Phone: [facility] [place] Comment on above: Essential hypertensi on, benign (Primary Dx); LALO (generalized anxiety disorder); Insomnia, unspecified type; Elevated hemoglobin A1c; Age-related osteoporosis without current pathological fracture; Mild AI (aortic insufficiency) Start: 01-29-2024 Telephone encounter Fabian Mcmullen MD Work Phone: [facility] [place] Comment on above: Results Start: 12-24-2023 Telephone encounter Constance dobbins PA-C Work Phone: [facility] [place] Comment on above: Results Start: 12-20-2023 End: 12-20-2023 Subsequent hospital visit by physician Xr [facility] [place] Work Phone: Radiology Comment on above: Viral bronchitis [J2 0.8] Start: 12-20-2023 End: 12-20-2023 Patient encounter procedure Constance Klein PA-C Work Phone: [facility] [place] Comment on above: Viral bronchitis (Pr imary Dx); URI, acute Start: 12-11-2023 Refill Fabian obrien MD Work Phone: [facility] [place] Comment on above: Refill Request Start: 12-04-2023 End: 12-04-2023 ambulatory FABIAN MCMULLEN [facility] Start: 12-04-2023 End: 12-04-2023 Clinical Support Ana Espinal Work Phone: [facility] Comment on above: Sensorineural hearin g loss, bilateral (Primary Dx); Sudden hearing loss, left Start: 12-04-2023 End: 12-04-2023 Office outpatient new 30 minutes Alexei Kruger MD Work Phone: [facility] [place] Comment on above: Sudden hearing loss, left (Primary Dx); Disorder of left eustachian tube Start: 12-03-2023 Orders Only Kristen Garner MA [facility] Start: 11-29-2023 Chart abstracting Fabian mcbride MD Work Phone: [facility] [place] Comment on above: ER Discharge Summary Start: 11-26-2023 End: 11-27-2023 Emergency department patient visit Dr. Fabian Mcmullen Work Phone: [facility]-Emergency Department Work Phone: Start: 11-20-2023 Telephone encounter Fabian Mcmullen MD Work Phone: [facility] [place] Comment on above: Patient Update Start: 11-16-2023 End: 11-16-2023 Patient encounter procedure Fabian Mcmullen MD Work Phone: [facility] [place] Comment on above: Eustachian tube diso rder, left (Primary Dx); Non-recurrent acute serous otitis media of left ear Start: 09-04-2023 Telephone encounter Sol Lowery MA [facility] [place] Comment on above: Insurance Authorizat ion (Potassium chloride ) Start: 08-23-2023 Telephone encounter Fabian Mcmullen MD Work Phone: [facility] [place] Comment on above: Medication Problem ( Out of stock, changing to a new pharmacy) Start: 08-08-2023 Chart abstracting Fabian mcbride MD Work Phone: [facility] [place] Start: 08-08-2023 End: 08-08-2023 Patient encounter procedure Fabian Mcmullen MD Work Phone: [facility] Work Phone: Comment on above: Encounter for Medica re annual wellness exam (Primary Dx); Essential hypertension, benign; Elevated hemoglobin A1c; 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 dysplasia of both carotid arteries (HCC); LALO (generalized anxiety disorder); Insomnia, unspecified type; Need for vaccination Start: 08-07-2023 Non-patient / Non-visit Dr. mK Mcmullen Work Phone: [facility] Work Phone: Start: 08-07-2023 End: 08-07-[address] Fabian Mcmullen Work Phone: [facility] Work Phone: Start: 08-07-2023 End: 08-07-[address] Fabian Mcmullen Work Phone: [facility] Work Phone: Start: 08-03-2023 End: 08-03-2023 Subsequent hospital visit by physician Xr [facility] Work Phone: Radiology Comment on above: Acute cough [R05.1] Start: 08-03-2023 End: 08-03-2023 Patient encounter procedure Daniela Mcdowell PA-C Work Phone: [facility] Comment on above: Bronchitis (Primary Dx); Nasal congestion Start: 07-11-2023 Chart abstracting Fabian mcbride MD Work Phone: [facility] Comment on above: outside cardiology Start: 07-11-2023 End: 07-11-[address] Fabian Mcmullen Work Phone: [facility] Work Phone: Start: 06-25-2023 Refill Fabain obrien MD Work Phone: [facility] Comment on above: Refill Request Start: 06-14-2023 Refill Fabian obrien MD Work Phone: [facility] Comment on above: Refill Request Start: 05-14-2023 Telephone encounter Katie odonnell APRN.CARDROOM MANAGER Work Phone: [facility] Comment on above: FMLA Paperwork; Form s (Short term disability paperwork ) Start: 05-14-2023 End: 05-14-2023 Patient encounter procedure Katie Chaudhari APRN.CARDROOM MANAGER Work Phone: [facility] Comment on above: C. difficile colitis (Primary Dx) Start: 05-11-2023 Telephone encounter Fabian Mcmullen MD Work Phone: [facility] Comment on above: Patient Question Start: 05-01-2023 Non-patient / Non-visit Dr. Km Mcmullen Work Phone: [facility] Work Phone: Start: 04-30-2023 Non-patient / Non-visit Dr. Km Mcmullen Work Phone: [facility] Work Phone: Start: 04-29-2023 Non-patient / Non-visit Dr. Km Mcmullen Work Phone: [facility] Work Phone: Start: 04-28-2023 Non-patient / Non-visit Dr. Km Mcmullen Work Phone: [facility] Work Phone: Start: 04-27-2023 Chart abstracting Fabian mcbride MD Work Phone: [facility] Start: 04-27-2023 Non-patient / Non-visit Dr. Km Mcmullen Work Phone: [facility] Work Phone: Start: 04-27-2023 End: 05-01-2023 Evaluation and management of inpatient Dr. Fabian Mcmullen Work Phone: [facility]-Medical Surgical 3 Work Phone: Start: 04-25-2023 Telephone encounter Fabian Mcmullen MD Work Phone: [facility] Comment on above: Patient Question Start: 04-23-2023 End: 04-23-2023 Patient encounter procedure Fabian Mcmuleln MD Work Phone: [facility] Comment on above: Diverticulitis (Prim ashlyn Dx); Diverticulosis Start: 04-20-2023 Chart abstracting Fabian mcbride MD Work Phone: [facility] [place] Start: 04-19-2023 Chart abstracting Fabian mcbride MD Work Phone: [facility] Comment on above: ER consult Start: 04-19-2023 End: 04-19-2023 Emergency department patient visit Dr. Fabian Mcmullen Work Phone: [facility]-Emergency Department Work Phone: Start: 04-18-2023 End: 04-18-[address] Fabian Mcmullen Work Phone: [facility] Work Phone: Start: 03-26-2023 End: 03-26-[address] Fabian Mcmullen Work Phone: [facility] Work Phone: Start: 03-26-2023 End: 03-26-[address] Fabian Mcmullen Work Phone: [facility] Start: 03-19-2023 Chart abstracting Fabian mcbride MD Work Phone: [facility] Comment on above: Consult (Vascular/la bs ) Start: 03-15-2023 End: 03-15-[address] Fabian Mcmullen Work Phone: [facility] Work Phone: Start: 03-15-2023 End: 03-15-[address] Fabian Mcmullen Work Phone: [facility]-Laboratory Start: 03-15-2023 End: 03-15-[address] Fabian Mcmullen Work Phone: [facility] Start: 02-27-2023 End: 02-27-2023 Subsequent hospital visit by physician Screen Mammo [facility] Comment on above: Encounter for screen ing mammogram for breast cancer [Z12.31] Start: 02-09-2023 End: 02-09-2023 Office outpatient visit 25 minutes Constance Klein PA-C Work Phone: [facility] Comment on above: Essential hypertensi on, benign (Primary Dx); Primary hypertension; 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 dysplasia of both carotid arteries (HCC); Primary insomnia; Recurrent cold sores Start: 01-25-2023 Telephone encounter Katie odonnell APRN.CARDROOM MANAGER Work Phone: [facility] Comment on above: Results Start: 01-24-2023 End: 01-24-2023 Patient encounter procedure Fabian Mcmullen MD Work Phone: [facility] Comment on above: Essential hypertensi on, benign (Primary Dx); Elevated hemoglobin A1c; LALO (generalized anxiety disorder); 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 dysplasia of both carotid arteries (HCC); Insomnia, unspecified type; Advance directive discussed with patient Start: 01-16-2023 End: 01-16-2023 Patient encounter procedure Katie Chaudhari APRN.CARDROOM MANAGER Work Phone: [facility] Comment on above: Seasonal allergic rh initis, unspecified trigger (Primary Dx); Sore throat Start: 01-02-2023 Refill Nikky darnell APRN.CARDROOM MANAGER Work Phone: [facility] Comment on above: Refill Request Start: 12-21-2022 End: 12-21-2022 Patient encounter procedure [facility] Mcmullen MD [facility] Comment on above: Bacterial sinusitis (Primary Dx) Start: 12-15-2022 Telephone encounter Fabian Mcmullen MD Work Phone: [facility] Comment on above: Patient Question; Pa tient Update Start: 12-11-2022 ambulatory Adrian Brice RN NURSE DIE LAY OUT WORKER Comment on above: Sore Throat (Strep e xposure/) Start: 12-11-2022 End: 12-11-2022 Patient encounter procedure Nikky Lopez MODEL AND PATTERN SUPERVISOR.CARDROOM MANAGER Work Phone: [facility] Comment on above: Sore throat (Primary Dx); Strep throat exposure; Sinus pressure; Right ear pain; Non-recurrent acute serous otitis media of right ear Start: 11-13-2022 Refill Fabian obrien MD Work Phone: [facility] Comment on above: Refill Request Start: 10-20-2022 Refill Fabian obrien MD Work Phone: [address] [place] [address] Comment on above: Refill Request Start: 10-19-2022 Refill Joelle Mccarthy MODEL AND PATTERN SUPERVISOR.CARDROOM MANAGER Work Phone: [facility] Comment on above: Refill Request Start: 09-08-2022 Telephone encounter Joelle benites MODEL AND PATTERN SUPERVISOR.CARDROOM MANAGER Work Phone: [facility] Comment on above: Results Start: 09-06-2022 End: 09-06-2022 Patient encounter procedure Joelle Katz MODEL AND PATTERN SUPERVISOR.CARDROOM MANAGER Work Phone: [facility] Comment on above: Primary hypertension (Primary Dx); Headache, unspecified headache type; Acute cough Start: 09-04-2022 Telephone encounter Fabian Mcmullen MD Work Phone: [facility] Comment on above: Results Start: 08-31-2022 Refill Joelle Henry goldman MODEL AND PATTERN SUPERVISOR.CARDROOM MANAGER Work Phone: [facility] Comment on above: Refill Request Start: 08-09-2022 End: 08-09-2022 Patient encounter procedure Joellecarmen Katz MODEL AND PATTERN SUPERVISOR.CARDROOM MANAGER [facility] Comment on above: Essential hypertensi on, benign (Primary Dx); Encounter for immunization Start: 08-03-2022 Telephone encounter Fabian Mcmullen MD Work Phone: [facility] [place] Comment on above: Results Start: 07-30-2022 Telephone encounter Fabian Mcmullen MD Work Phone: [facility] [place] Comment on above: Results Start: 07-28-2022 Telephone encounter Fabian Mcmullen MD Work Phone: [facility] [place] Comment on above: Question Start: 07-27-2022 Telephone encounter Fabian Mcmullen MD Work Phone: [facility] [place] Comment on above: Results Start: 07-26-2022 End: 07-26-2022 Patient encounter procedure Fabian Mcmullen MD Work Phone: [facility] Comment on above: Well adult exam ([place] adrian Dx); Primary insomnia; Essential hypertension, benign; Elevated hemoglobin A1c; LALO (generalized anxiety disorder); Chronic allergic rhinitis; Osteopenia, unspecified location; Advance directive discussed with patient; Encounter for immunization Start: 07-26-2022 End: 07-26-2022 Patient encounter status Fabian Mcmullen MD Work Phone: [facility] [place] Start: 07-18-2022 Telephone encounter Fabian Mcmullen MD Work Phone: [facility] Comment on above: Results Start: 07-17-2022 ambulatory Fabian obrien MD Work Phone: [facility] Comment on above: Dizziness Start: 06-14-2022 ambulatory Fabian obrien MD Work Phone: [facility] Start: 05-24-2022 Refill Fabian obrien MD Work Phone: [facility] [place] Comment on above: Refill Request Start: 02-06-2022 Refill Fabian obrien MD Work Phone: [facility] Comment on above: Refill Request (NEED S 90 DAYS) Start: 01-11-2022 End: 01-11-2022 Emergency department patient visit [facility] Start: 01-07-2022 Telephone encounter Fabian Mcmullen MD Work Phone: [facility] [place] Comment on above: Results Start: 09-12-2021 End: 09-12-2021 Subsequent hospital visit by physician X[facility] [place] Work Phone: Radiology Comment on above: Cough [R05.9] Start: 07-06-2021 Patient encounter status Paco Mcmullen MD Work Phone: [facility] Work Phone: Start: 07-21-2017 Patient encounter status Paco Mcmullen MD Work Phone: [facility] Work Phone: Procedures Date Procedure Procedure Detail Performing Clinician Start: 02-20-2025 Albumin/Globulin ratio Dr. Fabian Mcmullen MD Work Phone: Start: 02-20-[address] Hitesh Mcmullen MD Work Phone: Comment on above: The atypical pANCA p attern has been observed in asignificant percentage of patients with ulcerative colitis,primary sclerosing cholangitis and autoimmune hepatitis. Start: 02-20-[address] Black Mcmullen MD Work Phone: Start: 02-20-2025 Endomysial antibody IgA level Dr. Fabian Mcmullen MD Work Phone: Start: 02-20-[address] Hans Mcmullen MD Work Phone: Start: 02-20-[address] Fabian Mcmullen MD Work Phone: Start: 02-20-[address] Hans Mcmullen MD Work Phone: Start: 01-26-2025 Urnls dip stick/tabl et reagent auto microscopy Dr. Fabian Mcmullen MD Work Phone: Start: 01-26-[address] Fabian Mcmullen MD Work Phone: Start: 01-26-2025 Computed tomography of abdomen and pelvis with intravenous contrast Dr. Fabian Mcmullen MD Work Phone: Start: 08-08-2024 Adult depression scr eening assessment Fabian Mcmullen MD Work Phone: Start: 07-30-2024 Lipid 1996 panel - S larry or Plasma Constance Klein PA-C Work Phone: Start: 12-20-2023 Radiologic exam ches t 2 views Constance Klein PA-C Work Phone: Start: 08-08-2023 INFLUENZA VACCINE, P RSV FREE, AGE 65+ YR, HIGH DOSE, QUADRIVALENT (FLUZONE HIGH-DOSE) Fabian Mcmullen MD Work Phone: Start: 08-07-2023 CT angiography of co ronary arteries Dr. Fabian Mcmullen Work Phone: Start: 08-03-2023 Radiologic exam ches t 2 views Daniela Debbie Mcdowell PA-C Work Phone: Start: 07-30-2023 Lipid 1996 panel - S larry or Plasma Daniela July LEAL-C Work Phone: Start: 04-28-[address] diff[address] e detection Dr. Fabian Mcmullen Work Phone: Start: 04-28-[address] Fabian Mcmullen Work Phone: Start: 04-28-[address] Fabian Mcmullen Work Phone: Start: 04-28-2023 Ova [place] parasites identification Dr. Fabian Mcmullen Work Phone: Start: 04-27-2023 Computed tomography of abdomen and pelvis with intravenous contrast Dr. Fabian Mcmullen Work Phone: Start: 04-19-2023 Computed tomography of abdomen and pelvis with intravenous contrast Dr. Fabian Mcmullen Work Phone: Start: 03-26-2023 CT angiography of he ad and neck Dr. Fabian Mcmullen Work Phone: Start: 02-27-2023 End: 02-27-2023 Mammography Bulk Order Provider Start: 01-24-2023 Lipid 1996 panel - S larry or Plasma Fabian Mcmullen MD Work Phone: Start: 12-11-2022 STREP A MOLECULAR (POC) Nikky Lopez MODEL AND PATTERN SUPERVISOR.CARDROOM MANAGER Work Phone: Start: 08-09-2022 PFIZER-BIONTECH COVI D-19 BIVALENT BOOSTER VACCINE, AGE 12+ YR Joelle Katz MODEL AND PATTERN SUPERVISOR.CARDROOM MANAGER Work Phone: Start: 01-11-2022 CT of head without contrast Start: 09-12-2021 Radiologic exam ches t 2 views Cristina Tobarlogsukhwinder MODEL AND PATTERN SUPERVISOR.CARDROOM MANAGER Work Phone: Start: 05-04-2021 Mammography Fabian mcbride MD Work Phone: Start: 11-23-2020 Colonoscopy Fabian mcbride MD Work Phone: History of tonsillectomy S/P tonsillectom y Plan of Treatment Date Care Activity Detail Author Start: 07-30-2029 Lipid panel Lipid Screening [facility] Start: 07-30-2028 Lipid 1996 panel - S larry or Plasma Lipid Screening [facility] Start: 07-30-2028 Lipid panel Lipid Screening [facility] Start: 02-10-2028 [facility] Start: 01-25-2028 Lipid 1996 panel - S larry or Plasma Lipid Screening [facility] Start: 01-25-2028 LIPID SCREEN LIPID SCREEN [facility] Start: 07-30-2027 Diabetes Screening Diabetes [facility] Start: 07-29-2027 LIPID SCREEN LIPID SCREEN [facility] Start: 01-29-2027 Diabetes Screening Diabetes Screenin g [facility] Start: 09-26-2026 Screening for osteoporosis Bone Dens ity Screening [facility] Start: 07-30-2026 Diabetes Screening Diabetes Screenin [facility] Start: 07-11-2026 LIPID SCREEN LIPID SCREEN [facility] Start: 05-11-2026 Annual PCP Team Care Information Associate henry Disease Visit Annual PCP Team Chronic Disease Visit [facility] Start: 05-07-2026 DIABETES SCREEN DIABETES SCREEN [facility] Start: 05-07-2026 Diabetes Screening Diabetes Screenin g [facility] Start: 03-17-2026 Annual PCP Team Care Information Associate henry Disease Visit Annual PCP Team Chronic Disease Visit [facility] Start: 03-17-2026 BP Controlled (<130/80) BP Controlle d (<130/80) [facility] Start: 02-12-2026 Annual PCP Team Care Information Associate henry Disease Visit Annual PCP Team Chronic Disease Visit [facility] Start: 02-12-2026 BP Controlled (<130/80) BP Controlle d (<130/80) [facility] Start: 01-29-2026 Annual PCP Team Care Information Associate henry Disease Visit Annual PCP Team Chronic Disease Visit [facility] Start: 01-29-2026 BP Controlled (<130/80) BP Controlle d (<130/80) [facility] Start: 01-24-2026 DIABETES SCREEN DIABETES SCREEN [facility] Start: 11-24-2025 COLORECTAL CANCER SCREENING COLORECTAL CANCER SCREENING [facility] Start: 11-24-2025 FECAL OCCULT BLOOD FECAL OCCULT BLOO D [facility] Start: 11-24-2025 Screening for malign ant neoplasm of colon [facility] Start: 09-30-2025 Annual PCP Team Care Information Associate henry Disease Visit Annual PCP Team Chronic Disease Visit [facility] Start: 09-23-2025 End: 09-23-2025 Patient encounter procedure [facility] [place] Comment on above: Medicare Wellness Start: 09-22-2025 Annual PCP Team Care Information Associate henry Disease Visit Annual PCP Team Chronic Disease Visit [facility] Start: 09-22-2025 BP Controlled (<130/80) BP Controlle d (<130/80) [facility] Start: 09-08-2025 Annual PCP Team Care Information Associate henry Disease Visit Annual PCP Team Chronic Disease Visit [facility] Start: 09-08-2025 BP Controlled (<130/80) BP Controlle d (<130/80) [facility] Start: 08-25-2025 Annual PCP Team Care Information Associate henry Disease Visit Annual PCP Team Chronic Disease Visit [facility] Start: 08-25-2025 BP Controlled (<130/80) BP Controlle d (<130/80) [facility] Start: 08-08-2025 Annual PCP Team Care Information Associate henry Disease Visit Annual PCP Team Chronic Disease Visit [facility] Start: 08-08-2025 Depression Screening Depression Scre ening [facility] Start: 08-08-2025 Medicare Annual Well ness Visit Medicare Annual Wellness Visit [facility] Start: 07-29-2025 DIABETES SCREEN DIABETES SCREEN [facility] Start: 07-17-2025 DIABETES SCREEN DIABETES SCREEN [facility] Start: 06-12-2025 End: 09-11-2025 CBC W Auto Differential panel - Blood COMPLETE BLOOD COUNT AND DIFFERENTIAL Lab Routine Anemia, unspecified type Expected: 06/12/2025, Expires: 09/11/2025 [facility] Comment on above: Expected: 06/12/2025 , Expires: 09/11/2025 Start: 06-12-2025 End: 09-11-2025 Cobalamin (Vitamin B12) [Mass/volume] in Serum or Plasma VITAMIN B12 Lab Routine Anemia, unspecified type Expected: 06/12/2025, Expires: 09/11/2025 [facility] Work Phone: Comment on above: Expected: 06/12/2025 , Expires: 09/11/2025 Start: 06-12-2025 End: 09-11-2025 Ferritin [Mass/volume] in Serum or Plasma FERRITIN Lab Routine Anemia, unspecified type Expected: 06/12/2025, Expires: 09/11/2025 [facility] Comment on above: Expected: 06/12/2025 , Expires: 09/11/2025 Start: 06-12-2025 End: 09-11-2025 Folate [Mass/volume] in Serum or Plasma FOLATE, SERUM Lab Routine Anemia, unspecified type Expected: 06/12/2025, Expires: 09/11/2025 [facility] Comment on above: Expected: 06/12/2025 , Expires: 09/11/2025 Start: 06-12-2025 End: 09-11-2025 Iron and Iron binding capacity panel - Serum or Plasma IRON AND TIBC Lab Routine Anemia, unspecified type Expected: 06/12/2025, Expires: 09/11/2025 [facility] Comment on above: Expected: 06/12/2025 , Expires: 09/11/2025 Start: 05-25-2025 End: 05-25-2025 Patient encounter procedure 05/25/2025 11:00 AM EDT Office Visit [facility] [address] [place] [address] Fabian Mcmullen MD [address] [place], [place] [id number] 2 week f/u right temporal [place] [facility] Comment on above: 2 week f/u right tem poral [place] Start: 05-11-2025 End: 08-10-2025 C reactive protein [Mass/volume] in Serum or Plasma [facility] Work Phone: Comment on above: Expected: 05/11/2025 , Expires: 08/10/2025 Start: 04-28-2025 Annual PCP Team Care Information Associate henry Disease Visit Annual PCP Team Chronic Disease Visit [facility] Start: 03-19-2025 End: 06-18-2025 CBC W Auto Differential panel - Blood COMPLETE BLOOD COUNT AND DIFFERENTIAL Lab Routine Anemia, unspecified type Expected: 03/19/2025, Expires: 06/18/2025 [facility] Work Phone: Comment on above: Expected: 03/19/2025 , Expires: 06/18/2025 Start: 03-17-2025 End: 06-16-2025 Urinalysis complete panel - Urine [facility] Work Phone: Comment on above: Expected: 03/17/2025 , Expires: 06/16/2025 Start: 03-17-2025 End: 03-17-2025 Patient encounter procedure 03/17/2025 12:00 PM EDT Office Visit [facility] [address] [place] [address] Constance Klein PA-C [address] [place] [address] routine f/u and recheck GI issues [facility] Comment on above: routine f/u and rech melvin GI issues Start: 02-20-2025 Celiac disease screen [facility] Start: 02-20-2025 Gastrin [Mass/volume ] in Serum or Plasma [facility] Start: 02-20-2025 Immunoglobulin measurement [facility] Start: 02-20-2025 Serum immunofixation [facility] Start: 02-20-2025 [facility] Start: 02-12-2025 End: 05-14-2025 Cobalamin (Vitamin B12) [Mass/volume] in Serum or Plasma VITAMIN B12 Lab Routine Anemia, unspecified type Expected: 02/12/2025, Expires: 05/14/2025 [facility] Comment on above: Expected: 02/12/2025 , Expires: 05/14/2025 Start: 02-12-2025 End: 05-14-2025 Ferritin [Mass/volume] in Serum or Plasma FERRITIN Lab Routine Anemia, unspecified type Expected: 02/12/2025, Expires: 05/14/2025 [facility] Comment on above: Expected: 02/12/2025 , Expires: 05/14/2025 Start: 02-12-2025 End: 05-14-2025 Folate [Mass/volume] in Serum or Plasma FOLATE, SERUM Lab Routine Anemia, unspecified type Expected: 02/12/2025, Expires: 05/14/2025 [facility] Comment on above: Expected: 02/12/2025 , Expires: 05/14/2025 Start: 02-12-2025 End: 05-14-2025 Iron and Iron binding capacity panel - Serum or Plasma IRON AND TIBC Lab Routine Anemia, unspecified type Expected: 02/12/2025, Expires: 05/14/2025 [facility] Comment on above: Expected: 02/12/2025 , Expires: 05/14/2025 Start: 02-12-2025 End: 05-14-2025 Thyrotropin [Units/volume] in Serum or Plasma THYROID STIMULATING HORMONE Lab Routine Diarrhea, unspecified type Expected: 02/12/2025, Expires: 05/14/2025 [facility] Comment on above: Expected: 02/12/2025 , Expires: 05/14/2025 Start: 02-12-2025 End: 02-12-2025 Patient encounter procedure 02/12/2025 1:20 PM EDT Office Visit [facility] [address] [place] [address] Constance Klein PA-C [address] [facility], [place] [id number] 6 month follow up [facility] Comment on above: 6 month follow up Start: 02-06-2025 Annual PCP Team Care Information Associate henry Disease Visit Annual PCP Team Chronic Disease Visit [facility] Start: 02-06-2025 End: 02-06-2025 Patient encounter procedure 02/06/2025 12:20 PM EDT Office Visit [facility] [address] [facility], [place] [id number] Constance Klein PA-C [address] [facility], [place] [phone] 6 month follow up [facility] Comment on above: 6 month follow up Start: 01-30-2025 End: 01-30-2025 Patient encounter procedure 01/30/2025 9:40 AM EDT Office Visit [facility] [address] [facility], [place] [phone] Katie Chaudhari APRN.CARDROOM MANAGER [address] [facility], [place] [phone] ER F/U ([facility] 01/26/25-diverticulitis) [facility] Comment on above: ER F/U ([facility] 01/26/25- diverticulitis) Start: 01-26-2025 End: 01-26-2025 [facility] Start: 01-26-2025 Computed tomography of abdomen and pelvis with intravenous contrast Abdomen/Pelvis W IV Cont ONLY [facility] Start: 01-26-2025 CT Abdomen and Pelvi s W contrast IV [facility] Start: 01-23-2025 End: 04-24-2025 25-hydroxyvitamin D3 [Mass/volume] in Serum or Plasma VITAMIN D 25 HYDROXY Lab Routine High vitamin D level Expected: 01/23/2025, Expires: 04/24/2025 [facility] Comment on above: Expected: 01/23/2025 , Expires: 04/24/2025 Start: 01-23-2025 End: 04-24-2025 Hemoglobin A1c in Blood HEMOGLOBIN A1C Lab Routine Elevated hemoglobin A1c Expected: 01/23/2025, Expires: 04/24/2025 [facility] Comment on above: Expected: 01/23/2025 , Expires: 04/24/2025 Start: 01-23-2025 End: 04-24-2025 LIPID PANEL, NONFASTING LIPID PANEL, NONFASTING Lab Routine Essential hypertension, benign 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 dysplasia of both carotid arteries (HCC) Expected: 01/23/2025, Expires: 04/24/2025 [facility] Comment on above: Expected: 01/23/2025 , Expires: 04/24/2025 Start: 01-06-2025 DIABETES SCREEN DIABETES SCREEN [facility] Start: 12-19-2024 Annual PCP Team Care Information Associate henry Disease Visit Annual PCP Team Chronic Disease Visit [facility] Start: 12-19-2024 BP Controlled (<130/80) BP Controlle d (<130/80) [facility] Start: 11-16-2024 Annual PCP Team Care Information Associate henry Disease Visit Annual PCP Team Chronic Disease Visit [facility] Start: 10-15-2024 Advance Directive Discussion Advance Directive Discussion [facility] Start: 09-30-2024 End: 09-30-2024 Patient encounter procedure 09/30/2024 10:20 AM EST Office Visit [facility] [address] [place] [phone] Katie Chaudhari APRN.[facility] [address] [place], [place] [address] cough has decreased, sore throat, loosing voice. x 4 days [facility] Comment on above: cough has decreased, sore throat, loosing voice. x 4 days Start: 09-26-2024 End: 09-26-2024 Patient encounter procedure 09/26/2024 1:05 PM EST Appointment Radiology [address] [place] [id number] Age-related osteoporosis without current pathological fracture [M81.0] Radiology Comment on above: Age-related osteopor osis without current pathological fracture [M81.0] Start: 09-22-2024 End: 09-22-2024 Patient encounter procedure 09/22/2024 11:40 AM EST Office Visit [facility] [address] [place] [phone] Constance Klein PA-C [address] [place] [address] 2 wk BP check [facility] Comment on above: 2 wk BP check Start: 09-08-2024 End: 09-08-2024 Patient encounter procedure 09/08/2024 11:40 AM EST Office Visit [facility] [place] [address] [facility] [place] [address] Constance Klein PA-C [address] [place] [address] 2 week bp f/u [facility] Comment on above: 2 week bp f/u Start: 09-05-2024 End: 12-05-2024 25-hydroxyvitamin D3 [Mass/volume] in Serum or Plasma VITAMIN D 25 HYDROXY Lab Routine High vitamin D level Expected: 09/05/2024, Expires: 12/05/2024 [facility] Comment on above: Expected: 09/05/2024 , Expires: 12/05/2024 Start: 09-05-2024 End: 12-05-2024 HEP ACUTE PANEL/RNA HEP ACUTE PANEL/RNA Lab Routine Elevated LFTs Expected: 09/05/2024, Expires: 12/05/2024 [facility] Comment on above: Expected: 09/05/2024 , Expires: 12/05/2024 Start: 09-05-2024 End: 12-05-2024 Hepatic function 2000 panel - Serum or Plasma HEPATIC FUNCTION PNL Lab Routine Elevated LFTs Expected: 09/05/2024, Expires: 12/05/2024 [facility] Comment on above: Expected: 09/05/2024 , Expires: 12/05/2024 Start: 09-04-2024 Screening for osteoporosis Bone Dens ity Screening [facility] Start: 08-25-2024 End: 08-25-2024 Patient encounter procedure 08/25/2024 11:40 AM EST Office Visit [facility] [address] [place] [address] Constance Klein PA-C [address] [place] [address] 2 week follow up - BP [facility] Comment on above: 2 week follow up - B P Start: 08-08-2024 End: 11-07-2024 25-hydroxyvitamin D3 [Mass/volume] in Serum or Plasma VITAMIN D 25 HYDROXY Lab Routine Age-related osteoporosis without current pathological fracture Expected: 08/08/2024, Expires: 11/07/2024 [facility] Comment on above: Expected: 08/08/2024 , Expires: 11/07/2024 Start: 08-08-2024 Annual PCP Team Care Information Associate henry Disease Visit Annual PCP Team Chronic Disease Visit [facility] Start: 08-08-2024 BP Controlled (<130/80) BP Controlle d (<130/80) [facility] Start: 08-08-2024 End: 11-07-2024 CBC W Auto Differential panel - Blood COMPLETE BLOOD COUNT AND DIFFERENTIAL Lab Routine Essential hypertension, benign Mild AI (aortic insufficiency) Expected: 08/08/2024, Expires: 11/07/2024 [facility] Comment on above: Expected: 08/08/2024 , Expires: 11/07/2024 Start: 08-08-2024 End: 11-07-2024 Comprehensive metabolic 2000 panel - Serum or Plasma COMPREHENSIVE METABOLIC PANEL Lab Routine Essential hypertension, benign Expected: 08/08/2024, Expires: 11/07/2024 [facility] Work Phone: Comment on above: Expected: 08/08/2024 , Expires: 11/07/2024 Start: 08-08-2024 End: 11-07-2024 Hemoglobin A1c in Blood HEMOGLOBIN A1C Lab Routine Elevated hemoglobin A1c Expected: 08/08/2024, Expires: 11/07/2024 [facility] Comment on above: Expected: 08/08/2024 , Expires: 11/07/2024 Start: 08-08-2024 End: 11-07-2024 LIPID PANEL, NONFASTING LIPID PANEL, NONFASTING Lab Routine Essential hypertension, benign Elevated hemoglobin A1c Mild AI (aortic insufficiency) Expected: 08/08/2024, Expires: 11/07/2024 [facility] Comment on above: Expected: 08/08/2024 , Expires: 11/07/2024 Start: 08-08-2024 RSV Vaccine (1 - 1-d ose 60+ series) RSV Vaccine (1 - 1-dose 60+ series) [facility] Comment on above: Postponed from 10/11 (Insurance Coverage) Start: 08-08-2024 RSV Vaccine (1 - 1-d ose 75+ series) RSV Vaccine (1 - 1-dose 75+ series) [facility] Comment on above: Postponed from 10/11 (Insurance Coverage) Start: 08-08-2024 Urine microalbumin profile DTa P,Tdap,Td Vaccine (2 - Td or Tdap) [facility] Comment on above: Postponed from 10/31 (Insurance Coverage) Start: 08-08-2024 End: 08-08-2024 Patient encounter procedure 08/08/2024 11:40 AM EDT Office Visit [facility] [address] [place], [place] [phone] Fabian Mcmullen MD [address] [place], [place] [phone] Medicare Wellness Exam [facility] Comment on above: Medicare Wellness Ex am Start: 08-03-2024 BP Controlled (<130/80) BP Controlle d (<130/80) [facility] Start: 06-15-2024 Covid-19 Vaccine ( season) Covid-19 Vaccine () [facility] Start: 06-15-2024 Covid-19 Vaccine ( season) Covid-19 Vaccine ( season) [facility] Start: 05-14-2024 ANNUAL PCP TEAM ROUSTABOUT HAND HENRY DISEASE VISIT ANNUAL PCP TEAM CHRONIC DISEASE VISIT [facility] Start: 05-14-2024 BP CONTROLLED (<130/80) BP CONTROLLE D (<130/80) [facility] Start: 04-23-2024 ANNUAL PCP TEAM ROUSTABOUT HAND HENRY DISEASE VISIT ANNUAL PCP TEAM CHRONIC DISEASE VISIT [facility] Start: 04-23-2024 BP CONTROLLED (<130/80) BP CONTROLLE D (<130/80) [facility] Start: 03-08-2024 ANNUAL PCP TEAM ROUSTABOUT HAND HENRY DISEASE VISIT ANNUAL PCP TEAM CHRONIC DISEASE VISIT [facility] Start: 03-08-2024 BP CONTROLLED (<130/80) BP CONTROLLE D (<130/80) [facility] Start: 03-04-2024 End: 03-04-2024 Patient encounter procedure 03/04/2024 2:15 PM EDT [facility] [facility] [address] [place] [id number] Alexei Kruger MD [facility] [address] [address] [facility] Start: 02-28-2024 [facility] Start: 02-10-2024 ANNUAL PCP TEAM ROUSTABOUT HAND HENRY DISEASE VISIT ANNUAL PCP TEAM CHRONIC DISEASE VISIT [facility] Start: 01-25-2024 ANNUAL PCP TEAM ROUSTABOUT HAND HENRY DISEASE VISIT ANNUAL PCP TEAM CHRONIC DISEASE VISIT [facility] Start: 01-25-2024 End: 04-25-2024 Hemoglobin A1c in Blood HGB A1C Lab Routine Elevated hemoglobin A1c Expected: 01/25/2024, Expires: 04/25/2024 [facility] Work Phone: Comment on above: Expected: 01/25/2024 , Expires: 04/25/2024 Start: 01-17-2024 ANNUAL PCP TEAM ROUSTABOUT HAND HENRY DISEASE VISIT ANNUAL PCP TEAM CHRONIC DISEASE VISIT [facility] Start: 01-17-2024 BP CONTROLLED (<130/80) BP CONTROLLE D (<130/80) [facility] Start: 12-22-2023 ANNUAL PCP TEAM ROUSTABOUT HAND HENRY DISEASE VISIT ANNUAL PCP TEAM CHRONIC DISEASE VISIT [facility] Start: 12-22-2023 BP CONTROLLED (<130/80) BP CONTROLLE D (<130/80) [facility] Start: 12-11-2023 ANNUAL PCP TEAM ROUSTABOUT HAND HENRY DISEASE VISIT ANNUAL PCP TEAM CHRONIC DISEASE VISIT [facility] Start: 12-11-2023 BP CONTROLLED (<130/80) BP CONTROLLE D (<130/80) [facility] Start: 12-04-2023 End: 12-04-2023 Patient encounter procedure [facility] Start: 11-27-2023 [facility] Start: 11-27-2023 [facility] Start: 11-26-2023 Enteric precautions [facility] Start: 10-15-2023 Advance Directive Discussion Advance Directive Discussion [facility] Start: 10-15-2023 Behavioral Health Screening Behavioral Health Screening [facility] Start: 10-15-2023 Depression Assessment Depression Ass essment [facility] Start: 2023 RSV Vaccine (1 - 1-d ose 75+ series) RSV Vaccine (1 - 1-dose 75+ series) [facility] Start: 09-06-2023 ANNUAL PCP TEAM ROUSTABOUT HAND HENRY DISEASE VISIT ANNUAL PCP TEAM CHRONIC DISEASE VISIT [facility] Start: 08-09-2023 ANNUAL PCP TEAM ROUSTABOUT HAND HENRY DISEASE VISIT ANNUAL PCP TEAM CHRONIC DISEASE VISIT [facility] Start: 07-26-2023 ANNUAL PCP TEAM ROUSTABOUT HAND HENRY DISEASE VISIT ANNUAL PCP TEAM CHRONIC DISEASE VISIT [facility] Start: 07-17-2023 ANNUAL PCP TEAM ROUSTABOUT HAND HENRY DISEASE VISIT ANNUAL PCP TEAM CHRONIC DISEASE VISIT [facility] Start: 07-17-2023 BP CONTROLLED (<130/80) BP CONTROLLE D (<130/80) [facility] Start: 07-13-2023 End: 09-12-2023 Comprehensive metabolic 2000 panel - Serum or Plasma COMP METABOLIC PANEL Lab Routine Essential hypertension, benign Elevated hemoglobin A1c Expected: 07/13/2023, Expires: 09/12/2023 [facility] Work Phone: Comment on above: Expected: 07/13/2023 , Expires: 09/12/2023 Start: 07-13-2023 End: 09-12-2023 Hemoglobin A1c in Blood HGB A1C Lab Routine Elevated hemoglobin A1c Expected: 07/13/2023, Expires: 09/12/2023 [facility] Work Phone: Comment on above: Expected: 07/13/2023 , Expires: 09/12/2023 Start: 07-13-2023 End: 09-12-2023 LIPID PANEL, NONFASTING LIPID PANEL, NONFASTING Lab Routine Essential hypertension, benign 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 dysplasia of both carotid arteries (HCC) Expected: 07/13/2023, Expires: 09/12/2023 [facility] Work Phone: Comment on above: Expected: 07/13/2023 , Expires: 09/12/2023 Start: 07-13-2023 End: 09-12-2023 Urinalysis complete panel - Urine URINALYSIS, WITH MICROSCOPIC Lab Routine Essential hypertension, benign Expected: 07/13/2023, Expires: 09/12/2023 [facility] Work Phone: Comment on above: Expected: 07/13/2023 , Expires: 09/12/2023 Start: 06-15-2023 Covid-19 Vaccine () Covid-19 Vaccine () [facility] Start: 05-01-2023 Patient discharge [facility] Start: 04-27-2023 Following clinical p athway protocol [facility] Start: 04-27-2023 Ambulation without limitation [facility] Start: 04-27-2023 Assessment of risk o f venous thromboembolism [facility] Start: 04-27-2023 Insertion of cathete r into peripheral vein [facility] Start: 04-27-2023 Providing care accor ding to standard [facility] Start: 04-27-2023 Provision of activit y privileges [facility] Start: 04-27-2023 [facility] Start: 04-27-2023 Clostridioides diffi cile [Presence] in Stool [facility] Start: 04-27-2023 Verification routine [facility] Start: 04-27-2023 Admission procedure [facility] Start: 04-27-2023 Enteric precautions [facility] Start: 04-27-2023 [facility] Start: 01-04-2023 ANNUAL PCP TEAM ROUSTABOUT HAND HENRY DISEASE VISIT ANNUAL PCP TEAM CHRONIC DISEASE VISIT [facility] Start: 12-11-2022 End: 12-25-2022 Influenza virus A and B RNA and SARS-CoV-2 (COVID-19) N gene panel - Respiratory specimen by BRITTANI with probe detection COVID WITH FLUA+B, ROUTINE Microbiology Routine Sore throat Strep throat exposure Sinus pressure Right ear pain Non-recurrent acute serous otitis media of right ear Expected: 12/11/2022, Expires: 12/25/2022 [facility] Work Phone: Comment on above: Expected: 12/11/2022 , Expires: 12/25/2022 Start: 12-10-2022 COVID-19 VACCINE (5 - Pfizer series) COVID-19 VACCINE (5 - Pfizer series) [facility] Start: 10-31-2022 Tetanus vaccination Tetanus: Every 1 0yrs [facility] Start: 10-31-2022 Urine microalbumin profile [facility] Start: 10-15-2022 ADVANCE DIRECTIVE DISCUSSION ADVANCE DIRECTIVE DISCUSSION [facility] Start: 10-15-2022 DEPRESSION ASSESSMENT DEPRESSION ASS ESSMENT [facility] Start: 05-04-2022 Mammography MAMMOGRAM [facility] Start: 05-04-2022 Screening for malign ant neoplasm of breast Mammogram [facility] Start: 12-16-2021 COVID-19 VACCINE (4 - Booster for Pfizer series) COVID-19 VACCINE (4 - Booster for Pfizer series) [facility] Start: 11-23-2021 Colonoscopy COLONOSCOPY [facility] Start: 11-23-2021 Screening for malign ant neoplasm of colon Colonoscopy [facility] Start: 10-15-2021 ADVANCE DIRECTIVE DISCUSSION ADVANCE DIRECTIVE DISCUSSION [facility] Start: 10-15-2021 DEPRESSION ASSESSMENT DEPRESSION ASS ESSMENT [facility] Start: 10-13-2021 COVID-19 VACCINE (4 - Booster for Pfizer series) COVID-19 VACCINE (4 - Booster for Pfizer series) [facility] Start: 07-30-2018 Screening for malign ant neoplasm of colon [facility] Start: 2013 Fall risk assessment Falls Risk Asse ssment [facility] Start: 2013 Pneumococcal Vaccine : Age 65+ (1 of 1 - PCV) Pneumococcal Vaccine: Age 65+ (1 of 1 - PCV) [facility] Start: 2013 PNEUMOCOCCAL: 65+ (1 - PCV) PNEUMOCOCCAL: 65+ (1 - PCV) [facility] Start: 2008 RSV Vaccine (1 - 1-d ose 60+ series) RSV Vaccine (1 - 1-dose 60+ series) [facility] Start: 1998 Screening for malign ant neoplasm of colon Flexible sigmoidoscopy [facility] Start: 1993 COLOGUARD (FIT-DNA) COLOGUARD (FIT-D NA) [facility] Start: [address] COLONOGRAPHY [facility] Start: 1993 Screening for malign ant neoplasm of colon [facility] Start: 1993 SIGMOIDOSCOPY SIGMOIDOSCOPY [facility] Start: 1966 Anxiety Screening Anxiety Screening [facility] Start: 1966 BP CONTROLLED (<130/80) BP CONTROLLE D (<130/80) [facility] Start: 1966 Depression Screening Depression Scre ening [facility] Start: 1966 Hepatitis C screening Hepatitis C Sc reening [facility] Start: 1960 Depression screening using PHQ-9 (Patient Health Questionnaire 9) score Depression Screening (PHQ-2/9) [facility] Start: 1951 History and physical examination, annual for health maintenance Wellness Visit [facility] Start: 1948 Screening for malign ant neoplasm of colon [facility] Albumin [Moles/volum e] in Serum or Plasma [facility] Albumin/Globulin ratio [facility] End: 09-07-2025 BD DXA TRABECULAR BONE SCORE (TBS) BD DXA TRABECULAR BONE SCORE (TBS) Radiology Routine Age-related osteoporosis without current pathological fracture 1 Occurrences starting 08/08/2024 until 09/07/2025 [facility] Comment on above: 1 Occurrences starti ng 08/08/2024 until 09/07/2025 BD DXA TRABECULAR GARRETT NE SCORE (TBS) BD DXA TRABECULAR BONE SCORE (TBS) Radiology Routine Age-related osteoporosis without current pathological fracture 09/26/2024 1:24 PM EST [facility] Beef IgE Ab [Units/v olume] in Serum [facility] Chocolate IgE Ab [Units/volume] in Serum [facility] Clostridioides diffi cile DNA [Presence] in Unspecified specimen by BRITTANI with probe detection [facility] Clostridioides diffi cile toxin genes [Presence] in Stool by BRITTANI with probe detection CLOSTRIDIUM DIFFICILE TOXIN BY PCR Lab Routine Diarrhea, unspecified type Diverticulosis Diverticulitis History of Clostridium difficile colitis Ordered: 02/12/2025 [facility] Comment on above: Ordered: 02/12/2025 Codfish IgE Ab [Units/volume] in Serum [facility] Monroe IgE Ab [Units/v olume] in Serum [facility] Cow milk IgE Ab [Units/volume] in Serum [facility] CTA Head vessels and Neck vessels W contrast IV [facility] CTA Head vessels and Neck vessels W contrast IV [facility] End: 08-25-2023 Dxa bone density study 1/> sites axial skel DXA-AXIAL SKELETON Radiology Routine Osteopenia, unspecified location 1 Occurrences starting 07/26/2022 until 08/25/2023 [facility] Work Phone: Comment on above: 1 Occurrences starti ng 07/26/2022 until 08/25/2023 End: 09-07-2025 DXA Skeletal system.axial Views for bone density DXA-AXIAL SKELETON Radiology Routine Age-related osteoporosis without current pathological fracture 1 Occurrences starting 08/08/2024 until 09/07/2025 [facility] Work Phone: Comment on above: 1 Occurrences starti ng 08/08/2024 until 09/07/2025 DXA Skeletal system. axial Views for bone density DXA-AXIAL SKELETON Radiology Routine Age-related osteoporosis without current pathological fracture 09/26/2024 1:24 PM EST [facility] Work Phone: Electrophoresis: [id number] [facility] Electrophoresis: ashley ma globulin [facility] ENTERIC BACTERIAL PA LANE BY PCR ENTERIC BACTERIAL PANEL BY PCR Lab Routine Diarrhea, unspecified type Diverticulosis Diverticulitis History of Clostridium difficile colitis Ordered: 02/12/2025 [facility] Work Phone: Comment on above: Ordered: 02/12/2025 Food RAST [facility] Gastrointestinal pat hogens panel - Stool by BRITTANI with probe detection [facility] Gastrointestinal pat hogens panel - Stool by BRITTANI with probe detection [facility] Globulin measurement [facility] GROUP A STREPTOCOCCU S BY PCR GROUP A STREPTOCOCCUS BY PCR Lab Routine Sore throat Strep throat exposure Sinus pressure Right ear pain Non-recurrent acute serous otitis media of right ear 12/11/2022 11:11 AM EST [facility] Work Phone: Hemoglobin.gastroint estina l.lower [Presence] in Stool by Immunoassay IMMUNOCHEMICAL FECAL OCCULT BLOOD TEST Lab Routine Diarrhea, unspecified type Anemia, unspecified type Ordered: 02/12/2025 [facility] Comment on above: Ordered: 02/12/2025 IgA [Mass/volume] in Serum or Plasma [facility] IgE [Units/volume] i n Serum or Plasma [facility] IgG [Mass/volume] in Serum or Plasma [facility] IgM [Mass/volume] in Serum or Plasma [facility] Influenza virus A an d B RNA and SARS-CoV-2 (COVID-19) N gene panel - Respiratory specimen by BRITTANI with probe detection COVID WITH FLUA+B, ROUTINE Microbiology Routine Headache, unspecified headache type Acute cough Ordered: 09/06/2022 [facility] Work Phone: Comment on above: Ordered: 09/06/2022 Laboratory data interpretation [facility] Lactoferrin [Presenc e] in Stool by Immunoassay [facility] Neutrophil cytoplasm ic Ab.classic [Units/volume] in Serum [facility] Ova and parasites identified in Unspecified specimen by Light microscopy [facility] P-ANCA measurement [facility] Patient Education [facility] Work Phone: Patient referral [facility] Work Phone: Peanut IgE Ab [Units/volume] in Serum [facility] Pork IgE Ab [Units/v olume] in Serum [facility] Protein electrophore sis panel - Serum or Plasma [facility] RAPID STREP TEST B/O RAPID STREP TEST B/O Lab Routine Sore throat Strep throat exposure Ordered: 12/11/2022 [facility] Work Phone: Comment on above: Ordered: 12/11/2022 Godley IgE Ab [Units/volume] in Serum [facility] End: 07-14-2023 Screening mammography bi 2-view breast inc cad SANDOVAL SCREENING Radiology Routine Encounter for screening mammogram for breast cancer 1 Occurrences starting 06/14/2022 until 07/14/2023 [facility] Work Phone: Comment on above: 1 Occurrences starti ng 06/14/2022 until 07/14/2023 Shrimp IgE Ab [Units/volume] in Serum [facility] Soybean IgE Ab [Units/volume] in Serum [facility] STREP A MOLECULAR (POC) STREP A MOLECULAR (POC) Microbiology Routine Sore throat Strep throat exposure Sinus pressure Right ear pain Non-recurrent acute serous otitis media of right ear Ordered: 12/11/2022 [facility] Work Phone: Comment on above: Ordered: 12/11/2022 Tissue transglutamin ase IgA Ab [Units/volume] in Serum [facility] Tuna IgE Ab [Units/v olume] in Serum [facility] US Carotid arteries [facility] US Renal artery [facility] Wheat IgE Ab [Units/volume] in Serum [facility] Whole Egg IgE Ab [Units/volume] in Serum [facility] End: 01-18-2025 XR Chest PA and Lateral XR CHEST 2V FRONTAL/LAT Radiology Routine Viral bronchitis 1 Occurrences starting 12/20/2023 until 01/18/2025 [facility] Work Phone: Comment on above: 1 Occurrences starti ng 12/20/2023 until 01/18/2025 XR Chest PA and Lateral XR CHEST 2V FRONTAL/LAT Radiology Routine Viral bronchitis 12/20/2023 1:31 PM EST [facility] Work Phone: [facility] Immunizations Immunization Date Immunization Notes Care Provider Darren burns 08-08-2023 influenza (HD-IIV4) vaccine, age 65+ yr, high dose, quadrivalent, PF (FLUZONE HIGH-DOSE) Fabian Mcmullen MD Work Phone: [facility] 08-09-2022 COVID-19 booster vaccine, age 12+ yr, bivalent (PFIZER-BIONTECH) Joelle Katz [employer]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 Work Phone: [facility] 07-26-2022 pneumococcal Conjuga te, unspecified formulation Fabian Mcmullen MD Work Phone: [facility] Work Phone: 07-26-2022 pneumococcal (PCV20) vaccine, 20 valent (PREVNAR 20) Fabian Mcmullen MD Work Phone: [facility] 07-25-2022 influenza, high dose seasonal, preservative-free Fabian Mcmullen MD Work Phone: [facility] Work Phone: 08-18-2021 COVID-19 vaccine, ag e 12+ yr (PFIZER-BIONTECH - PURPLE [facility]) Fabian Mcmullen MD Work Phone: [facility] 07-06-2021 zoster vaccine recombinant Fabian Mcmullen MD Work Phone: [facility] 01-28-2021 zoster vaccine recombinant Fabian Mcmullen MD Work Phone: [facility] Work Phone: 01-06-2021 COVID-19 vaccine, ag e 12+ yr (PFIZER-BIONTECH - PURPLE TOP) Fabian Mcmullen MD Work Phone: [facility] Work Phone: 12-16-2020 COVID-19 vaccine, ag e 12+ yr (PFIZER-BIONTECH - PURPLE TOP) Fabian Mcmullen MD Work Phone: [facility] Work Phone: 10-31-2012 tetanus toxoid, redu jameson diphtheria toxoid, and acellular pertussis vaccine, adsorbed Fabian Mcmullen MD Work Phone: [facility] Payers Date Payer Category Payer Self-pay [id number] 2023 Medicare [id number] 2023 Private Health Insurance [id number] 2023 Unknown [id number] 2014 Unknown MMO MMO MHS [id number] 2014-Present [phone] [address] [address] [place] [address] Indemnity [id number] 2014 Unknown [id number] 2013 Medicare [id number] 2013 Medicare [id number] 2012 Unknown [id number] 1948 Unknown [id number] 1948 Unknown [id number] Unknown [facility] PACKAGE PLAN [id number] Unknown [id number] 462 Unknown [id number] 462 Unknown [id number] 462 Unknown [id number] 462 Unknown [id number] 462 Unknown [id number]. 462 Unknown [id number] 462 Unknown [id number] 462 Unknown [id number] 462 Unknown [id number] 462 Unknown [id number] 462 Unknown [id number] 462 Social History Date Type Detail Facility Start: 06-28-2016 End: 01-26-2025 Tobacco smoking status NHIS Never smoked tobacco [facility] Work Phone: Start: 01-04-2022 End: 05-11-2025 Alcohol intake Current non-drinker of alcohol (finding) [facility] Start: 04-12-2021 History SDOH Alcohol Frequency 1 [facility] Start: 04-12-2021 History SDOH Alcohol Std Drinks 98 [facility] Start: 04-12-2021 History SDOH Social Connections Phone 5 [facility] Start: 04-12-2021 History SDOH Social Connections Baptism 3 [facility] Start: 04-12-2021 History SDOH Physical Activity MPS 2 [facility] Start: 1950 Sex Assigned At Not on file [facility] Start: 08-13-2021 End: 09-06-2022 Exposure to SARS-CoV-2 (event) Not sure [facility] Work Phone: Start: 01-11-2022 End: 11-26-2023 Tobacco smoking status NHIS Unknown if ever smoked [facility] Start: 11-19-2020 None [facility] Start: 11-19-2020 Alone [facility] Start: 1950 Sex Assigned At Female [facility] Start: 06-28-2016 End: 07-17-2022 Tobacco use and exposure Smokeless tobacco non-user [facility] Work Phone: Start: 04-12-2021 End: 03-08-2023 History of Social function [facility] Start: 04-12-2021 End: 03-08-2023 Social connection and isolation [facility] Do you belong to any clubs or organizations such as advent groups, unions, fraternal or athletic groups, or school groups? Patient refused [facility] Are you now , , , , never or living with a partner? [facility] How often to you hav e a drink containing alcohol? Never [facility] Do you feel stress - tense, restless, nervous, or anxious, or unable to sleep at night because your mind is troubled all the time - these days [OSQ] Only a little [facility] (I/We) worried franchesca er (my/our) food would run out before (I/we) got money to buy more. Never true [facility] Start: 04-12-2021 Gender identity Identifies as female gender (finding) [facility] Start: 04-12-2021 Sexual orientation Heterosexual (finding) [facility] Start: 12-04-2023 Alcohol intake Lifetime non-drinker (finding) [facility] How often to you hav e a drink containing alcohol? Monthly or less [facility] How many standard dr inks containing alcohol do you have on a typical day? 1 or 2 [facility] Start: 01-26-2025 Sex Female (finding) [facility] Goals Date Patient Goal Desired Activity /State Functional Status Date Assessment Result Facility 05-01-2023 Functional status Ambulates [facility] Work Phone: 05-03-2015 Are you deaf, or do you have serious difficulty hearing No 05/03/2015 8:06 AM Frances Carter Ma No [facility] 05-03-2015 Are you blind, or do you have serious difficulty seeing, even when wearing glasses No 05/03/2015 8:06 AM Frances Carter Ma No [facility] 05-03-2015 Do you have serious difficulty walking or climbing stairs No 05/03/2015 8:06 AM Frances Carter Ma No [facility] 05-03-2015 Do you have difficul ty dressing or bathing No 05/03/2015 8:06 AM Frances Carter Ma No [facility] 05-03-2015 Because of a physica l, mental, or emotional condition, do you have difficulty doing errands alone such as visiting a physician's office or shopping No 05/03/2015 8:06 AM Frances Carter Ma No [facility] Mental Status Date Assessment Result Facility 04-30-2023 Cognitive function Voice/Name [facility] Work Phone: 04-27-2023 Cognitive function Level Of Cons ciousness Awake;Alert;Appropriate;Fol lows Commands [facility] Work Phone: 01-11-2022 Cognitive function Level Of Cons ciousness Awake;Alert;Appropriate;Fol lows Commands [facility] Work Phone: 05-03-2015 Because of a physica l, mental, or emotional condition, do you have serious difficulty concentrating, remembering, or making decisions No 05/03/2015 8:06 AM EDT Frances Panchal Ma No [facility] Clinical Notes 12-03-2011 to 05-18-2025 Elmira Amos MA - 05/18/2025 2:47 PM EDTTelephone Encounter - Elmira Amos MA - 05/13/2025 12:13 PM EDTTelephone Encounter - Elmira Amos MA - 05/13/2025 12:13 PM EDTPatient Instructions Note Date & Type Note Facility 05-18-2025 Note HNO ID: [id number] Author: ELMIRA AMOS MA Service: ? Author Type: Assistant Site Manager Type: Progress Notes Filed: 05/18/2025 14:48 Note Text: Renal Artery US, non-[facility] ordered. Elmira Amos MA View External Imaging - Renal artery [ID [id number]] [facility] 05-18-2025 History of Presen t illness Narrative Renal Artery US, non-[facility] ordered. Elmira Amos MA View External Imaging - Renal artery [ID [id number]] documented in this encounter [facility] 05-13-2025 Telephone encounter Note Call to pt and notified her of message below from Provider. Pt will update if not improving. Asking what steroid treatment would do. Advised pt this can help reduce inflammation as possible dx of sinusitis. Pt understood, will take it one day at a time. Elmira Amos MA [facility] 05-13-2025 Miscellaneous Notes Call to pt and notified her of message below from Provider. Pt will update if not improving. Asking what steroid treatment would do. Advised pt this can help reduce inflammation as possible dx of sinusitis. Pt understood, will take it one day at a time. Elmira Amos MA Let the patient know that based on my exam in the office and documentation insurance is not going to cover a head CT at this time. Please complete the antibiotic first. If pain not much better by next Wed let me know and then I would proceed with the steroid Tx we had discussed. Patient calling asking if she could have some sort of scan done to make sure it is sinus issues and not a tumor. She said her mosque pain is not any better at all, she has tender spot on top of her head when touched. Please advise documented in this encounter [facility] 05-13-2025 Telephone encounter Note Let the patient know that based on my exam in the office and documentation insurance is not going to cover a head CT at this time. Please complete the antibiotic first. If pain not much better by next Wed let me know and then I would proceed with the steroid Tx we had discussed. [facility] 05-13-2025 Telephone encounter Note Patient calling asking if she could have some sort of scan done to make sure it is sinus issues and not a tumor. She said her mosque pain is not any better at all, she has tender spot on top of her head when touched. Please advise [facility] 05-13-2025 Telephone encounter Note Patient returned call and went over notes from Dr Mcmullen with understanding. [facility] 05-13-2025 Miscellaneous Notes Patient returned call and went over notes from Dr Mcmullen with understanding. The mildly elevated ESR is most likely due to the suspected sinus infection. The number can be raised due to any type of inflammation including arthritis. Call to pt and notified her of results below from Provider. Pt asking additional questions asking what causes mildly elevated ESR? Is this related her sinuses can cause this number to increase. She discussed why her anemia is mild? What can cause this. Discussed with pt this could be a transient or variation and this is why we are completing labs in 1 month to check and see if still mildly low or back WNL. Pt reports in January, she had this happen due to a diverticulitis flare up. Notified pt I would route her concerns to Provider to review and advise. Elmira Amos MA Let patient know her ESR was only mildly elevated at 26 and her CRP was normal. So not temporal arteritis. Her CBC only shows a mild anemia again. Placed labs to recheck in a month. I would prefer to hold off on placing her on prednisone since if this is a sinusitis it can lesson ability to resolve it sooner with the antibiotic. documented in this encounter [facility] 05-12-2025 Telephone encounter Note The mildly elevated ESR is most likely due to the suspected sinus infection. The number can be raised due to any type of inflammation including arthritis. [facility] 05-12-2025 Telephone encounter Note Call to pt and notified her of results below from Provider. Pt asking additional questions asking what causes mildly elevated ESR? Is this related her sinuses can cause this number to increase. She discussed why her anemia is mild? What can cause this. Discussed with pt this could be a transient or variation and this is why we are completing labs in 1 month to check and see if still mildly low or back WNL. Pt reports in January, she had this happen due to a diverticulitis flare up. Notified pt I would route her concerns to Provider to review and advise. Elmira Amos MA [facility] 05-12-2025 Telephone encounter Note Let patient know her ESR was only mildly elevated at 26 and her CRP was normal. So not temporal arteritis. Her CBC only shows a mild anemia again. Placed labs to recheck in a month. I would prefer to hold off on placing her on prednisone since if this is a sinusitis it can lesson ability to resolve it sooner with the antibiotic. [facility] 05-11-2025 Instructions Fabian Mcmullen MD - 05/11/2025 2:56 PM EDT We discussed your right-sided head and facial pain: - I suspect this may be related to a sinus infection, given your tenderness over the right maxillary sinus and the nature of your symptoms. - I have ordered blood work, including an erythrocyte sedimentation rate (ESR), to rule out temporal arteritis, which is an inflammatory condition that can cause similar symptoms. You do not need to fast for this test, and results should be available by tomorrow. - I have prescribed Ceftriaxone (antibiotic) to take twice daily for 10 days to treat a possible sinus infection. - To reduce your risk of C. diff recurrence, I have also prescribed Vancomycin (1 tablet daily for 10 days) to take alongside the antibiotic. - Continue taking your probiotic (Floragen) twice daily, ensuring it contains at least 5 billion organisms per dose. - Follow up with me in 2 weeks to reassess your symptoms and review your blood work results. We discussed your tailbone pain: - Your tailbone pain may be related to muscle strain or tightness. Continue using ice packs as needed for relief. - If the pain worsens or does not improve, please let me know. We discussed your history of C. diff: - You are at increased risk for C. diff recurrence with antibiotics. To minimize this risk, you will take Vancomycin alongside your prescribed antibiotic and continue your probiotic regimen. - If you develop diarrhea, abdominal pain, or other concerning symptoms, please contact me immediately. Medications: - Ceftriaxone: Take 1 tablet twice daily for 10 days. - Vancomycin: Take 1 tablet daily for 10 days. - Probiotic (Floragen): Continue taking 2 tablets daily, ensuring each dose contains at least 5 billion organisms. Follow-Up: - Complete your blood work today. - Follow up with me in 2 weeks to review your progress and test results. If you experience any new or worsening symptoms, such as vision changes, severe headache, or other concerning issues, please contact the office or seek medical attention promptly. documented in this encounter [facility] 05-11-2025 Note HNO ID: [id number] Author: FABIAN MCMULLEN MD Service: ? Author Type: Physician Type: Progress Notes Filed: 05/11/2025 23:26 Note Text: Chief Complaint Patient presents with: Pain: Right mosque HPI Laurence Koroma is a 74 year old female who presents here today for an acute visit. Right jaw, mosque pain, and behind right eye for 7-10 days over the past 7-10 days. No sinus symptoms. Lexie Koroma is a 74-year-old female with a history of C. diff, presenting with right-sided cephalalgia and right eye pain, as well as acute onset of coccygeal pain. Lexie reports an onset of right-sided cephalalgia beginning the week of 04/27/2023. The pain is localized to the right temporal area and extends to the right eye and jaw, described as a constant ache. She has tried ibuprofen and Tylenol without relief and has also used ice and heat packs, which provided no significant improvement. She suspects the pain may be related to TMJ or sinus issues, noting tenderness in the right maxillary sinus area. She denies any recent head trauma, facial drooping, changes in vision, or new hearing loss. She also denies nausea, emesis, diarrhea, dysphagia, or drooling. She has a history of hearing loss in the right ear following a COVID-19 infection, which resolved after approximately 3 months. Additionally, Lexie reports acute onset of coccygeal pain upon waking on a recent Sunday morning, described as a severe ache that initially impaired her ability to walk. She denies any recent falls or trauma to the area and notes that the pain improves with ice application. She has not been sitting on hard surfaces for extended periods and has been able to ambulate more comfortably since the initial onset. She denies any known trauma to the area. She also reports a history of C. diff and is currently taking Florajen probiotics, 2 capsules daily, as recommended by a previous ER visit in January. She is concerned about the potential for recurrence of C. diff with antibiotic use. Past medical history, appointments, medications, allergies reviewed. [...] benign 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 dysplasia of both carotid arteries 08/03/2022 US 07/2022 LALO (generalized anxiety disorder) 12/29/2020 History of Clostridium difficile colitis 11/20/2023 Due to antibiotics. May need Vanco at same time as antibiotics to prevent recurrence. Would do Vanco 125 mg a day while on an antibiotic. 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 zolpidem (AMBIEN) 10 mg Take 1 tablet by mouth at bedtime as needed for up to 180 days. FOR INSOMNIA alendronate (FOSAMAX) 70 mg tablet Take 1 tablet by mouth one time a week. In AM with cup of water on empty stomach. Nothing else by mouth and stay upright for 30 min. fluticasone (FLONASE) 50 mcg/actuation nasal spray Use 2 sprays in each nostril once daily. Rinse mouth after use. lisinopril (ZESTRIL) 40 mg tablet Ta (more content not included)... [facility] 05-11-2025 History of Presen t illness Narrative Chief Complaint Patient presents with: Pain: Right mosque HPI Laurence Koroma is a 74 year old female who presents here today for an acute visit. Right jaw, mosque pain, and behind right eye for 7-10 days over the past 7-10 days. No sinus symptoms. Lexie Koroma is a 74-year-old female with a history of C. diff, presenting with right-sided cephalalgia and right eye pain, as well as acute onset of coccygeal pain. Lexie reports an onset of right-sided cephalalgia beginning the week of 04/27/2023. The pain is localized to the right temporal area and extends to the right eye and jaw, described as a constant ache. She has tried ibuprofen and Tylenol without relief and has also used ice and heat packs, which provided no significant improvement. She suspects the pain may be related to TMJ or sinus issues, noting tenderness in the right maxillary sinus area. She denies any recent head trauma, facial drooping, changes in vision, or new hearing loss. She also denies nausea, emesis, diarrhea, dysphagia, or drooling. She has a history of hearing loss in the right ear following a COVID-19 infection, which resolved after approximately 3 months. Additionally, Lexie reports acute onset of coccygeal pain upon waking on a recent Sunday morning, described as a severe ache that initially impaired her ability to walk. She denies any recent falls or trauma to the area and notes that the pain improves with ice application. She has not been sitting on hard surfaces for extended periods and has been able to ambulate more comfortably since the initial onset. She denies any known trauma to the area. She also reports a history of C. diff and is currently taking Florajen probiotics, 2 capsules daily, as recommended by a previous ER visit in January. She is concerned about the potential for recurrence of C. diff with antibiotic use. Past medical history, appointments, medications, allergies reviewed. [...] benign 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 dysplasia of both carotid arteries 08/03/2022 US 07/2022 LALO (generalized anxiety disorder) 12/29/2020 History of Clostridium difficile colitis 11/20/2023 Due to antibiotics. May need Vanco at same time as antibiotics to prevent recurrence. Would do Vanco 125 mg a day while on an antibiotic. 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 zolpidem (AMBIEN) 10 mg Take 1 tablet by mouth at bedtime as needed for up to 180 days. FOR INSOMNIA alendronate (FOSAMAX) 70 mg tablet Take 1 tablet by mouth one time a week. In AM with cup of water on empty stomach. Nothing else by mouth and stay upright for 30 min. fluticasone (FLONASE) 50 mcg/actuation nasal spray Use 2 sprays in each nostril once daily. Rinse mouth after use. lisinopril (ZESTRIL) 40 mg tablet Take 0.5 tablets by mouth two times a day. hydroCHLOROthiazide 12.5 mg capsule Take 1 capsule by mouth once daily. Potassium Chloride (KLOR-CON 8) 8 mEq tablet Take 1 tablet by mouth two times a day. multivit,iron,minerals/lutein (CENTRUM SILVER ULTRA WOMEN'S ORAL) Take by mouth. Take one tablet daily L.acid/L.casei/B.bif/B.yevgeniy/FOS (PROBIOTIC BLEND ORAL) Take by mouth. acyclovir (ZOVIRAX) 800 mg tablet 1 tablet three times daily. aspirin, enteric coated (ASPIRIN, ENTERIC COATED) 81 mg EC tablet Take 1 tablet by mouth once daily. loratadine (CLARITIN) 10 mg tablet Take 1 tablet by mouth once daily. No current facility-administered medications on file prior to visit. Social History Social History Tobacco Use Smoking status: Never Smokeless tobacco: Never Vaping Use Vaping status: Never Used Substance Use Topics Alcohol use: No Drug use: No Review of Symptoms REVIEW OF SYSTEMS SEE HPI EXAM: BP 126/60 (BP Site: Right Arm, BP Position: Sitting, BP Cuff Size: Regular Adult) Pulse 84 Resp 16 Wt 44.5 kg (98 lb) BMI 19.79 kg/m General Appearance: Well appearing, alert, in no acute distress, well-hydrated, well nourished.. Head: Normocephalic, no masses, lesions, tenderness or abnormalities. Eyes: Anicteric sclera. Pupils are equally round and reactive to light. Extraocular movements are intact. Fundic exam was grossly normal. Ears: External ears, TM's normal, canals clear. Nose/Sinuses: Nares normal, septum midline, mucosa normal, no drainage. Has right sided fontal and maxillary sinus tenderness. Oropharynx: Lips, mucosa, and tongue normal, teeth and gums normal, oropharynx normal. Mil tenderness ove the right TMJ., no popping or dislocation upon opening and closing the jaw. Neck: Supple, no adenopathy; thyroid symmetric, normal size, no bruits. Musculoskeletal: Muscular strength intact, No joint swelling, deformity, or tenderness. Neurologic: Gait normal. Reflexes normal and symmetric. Sensation to light touch and crainal nerves 2-12 intact.. Health Maintenance List DTaP,Tdap,Td Vaccine(2 - Td or Tdap) due on 10/31/2022 RSV Vaccine(1 - 1-dose 75+ series) Never done Advance Directive Discussion due on 10/15/2024 Depression Screening due on 08/08/2025 Medicare Annual Wellness Visit due on 08/08/2025 Annual PCP Team Chronic Disease Visit due on 05/11/2026 Bone Density Screening due on 09/26/2026 Diabetes Screening due on 02/10/2028 Shingrix Vaccine Completed Pneumococcal Vaccine: 50+ Completed Mammogram Screening Discontinued Influenza Vaccine Discontinued Colorectal Cancer Screening Discontinued Hepatitis C Screening Discontinued Data reviewed Assessment and Plan 1. Bacterial sinusitis (J32.9) Tenderness over the right maxillary sinus on exam. No significant nasal discharge or postnasal drip observed. Differential diagnosis includes sinusitis. - Initiated treatment with Duricef 500 mg PO BID for 10 days. - Due to history of C. diff, prescribed vancomycin 125 mg PO daily for 10 days to prevent recurrence. - Continue current probiotic regimen, ensuring at least 5 billion CFUs per dose. - Ordered ESR to rule out temporal arteritis; results expected by tomorrow. - Follow-up in 2 weeks to assess response to treatment. - also ordered CBC and CRP 2. Temporal pain (R51.9) Arthralgia of right temporomandibular joint (M26.621) Persistent aching pain in the right temporal region, extending to the right eye and jaw. No significant popping or grinding of the TMJ observed on exam. Differential diagnosis includes TMJ arthralgia and temporal arteritis. - Await ESR results to rule out temporal arteritis. - If ESR is not significantly elevated, consider a short course of low-dose prednisone. - Follow-up in 2 weeks to reassess symptoms and adjust treatment as necessary. Requested Prescriptions Signed Prescriptions Disp Refills Potassium Chloride (KLOR-CON 8) 8 mEq tablet 180 tablet 1 Sig: Take 1 tablet by mouth two times a day. cefADROxil (DURICEF) 500 mg capsule 20 capsule 0 Sig: Take 1 capsule by mouth two times a day. vancomycin (VANCOCIN) 125 mg capsule 10 capsule 0 Sig: Take 1 capsule by mouth once daily for 10 days. F/u 2 weeks to reassess. Fabian Mcmullen MD I spent a total of 33 minutes on the date of the service which included preparing to see the patient, [id number] patient care, completing clinical documentation, performing a medically appropriate examination, counseling and educating the patient/family/caregiver and ordering medications, tests, or procedures. Recording using [employer] software for draft documentation of the visit was discussed with the patient/authorized medical field representative; all questions welcomed and answered. Patient/authorized medical field representative agreed to proceed documented in this encounter [facility] 04-27-2025 Note HNO ID: [id number] Author: ELMIRA AMOS MA Service: ? Author Type: Assistant Site Manager Type: Progress Notes Filed: 04/27/2025 14:33 Note Text: Carotid Duplex US. View External Imaging - Carotid duplex [ID [id number]] [facility] 04-27-2025 History of Presen t illness Narrative Carotid Duplex US. View External Imaging - Carotid duplex [ID [id number]] documented in this encounter [facility] 03-18-2025 Telephone encounter Note Patient notified and voiced understanding. Sol Lowery MA [facility] 03-18-2025 Miscellaneous Notes Patient notified and voiced understanding. Sol Lowery MA Urine is normal. Constance Klein PA-C documented in this encounter [facility] 03-18-2025 Telephone encounter Note Urine is normal. Constance Klein PA-C [facility] 03-17-2025 Note HNO ID: [id number] Author: CONSTANCE KLEIN PA-C Service: ? Author Type: Physician Social Media Project Manager Type: Progress Notes Filed: 03/17/2025 13:55 Note Text: Chief Complaint Patient presents with: Recheck: GI issues HPI Laurence Koroma is a 74 year old female who presents here today for wellness visit. Saw Dr Dnan, taking 1tbs metamucil with 10oz and daily probiotic. Avoids greasy food. Still having soft stools, no blood or mucus in stool. Denies melena. Has been waking up to go to bathroom in the middle of the night for the past 6 months. Past medical history, appointments, medications, allergies reviewed. [...] benign 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 dysplasia of both carotid arteries 08/03/2022 US 07/2022 LALO (generalized anxiety disorder) 12/29/2020 History of Clostridium difficile colitis 11/20/2023 Due to antibiotics. May need Vanco at same time as antibiotics to prevent recurrence. Would do Vanco 125 mg a day while on an antibiotic. 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 zolpidem (AMBIEN) 10 mg Take 1 tablet by mouth at bedtime as needed for up to 180 days. FOR INSOMNIA alendronate (FOSAMAX) 70 mg tablet Take 1 tablet by mouth one time a week. In AM with cup of water on empty stomach. Nothing else by mouth and stay upright for 30 min. fluticasone (FLONASE) 50 mcg/actuation nasal spray Use 2 sprays in each nostril once daily. Rinse mouth after use. lisinopril (ZESTRIL) 40 mg tablet Take 0.5 tablets by mouth two times a day. hydroCHLOROthiazide 12.5 mg capsule Take 1 capsule by mouth once daily. Potassium Chloride (KLOR-CON 8) 8 mEq tablet Take 1 tablet by mouth two times a day. multivit,iron,minerals/lutein (CENTRUM SILVER ULTRA WOMEN'S ORAL) Take by mouth. Take one tablet daily L.acid/L.casei/B.bif/B.yevgeniy/FOS (PROBIOTIC BLEND ORAL) Take by mouth. acyclovir (ZOVIRAX) 800 mg tablet 1 tablet three times daily. aspirin, enteric coated (ASPIRIN, ENTERIC COATED) 81 mg EC tablet Take 1 tablet by mouth once daily. loratadine (CLARITIN) 10 mg tablet Take 1 tablet by mouth once daily. No current facility-administered medications on file prior to visit. Social History Social History Tobacco Use Smoking status: Never Smokeless tobacco: Never Vaping Use Vaping status: Never Used Substance Use Topics Alcohol use: No Drug use: No Review of Symptoms REVIEW OF SYSTEMS RESPIRATORY: Negative for cough,dyspnea or shortness of breath CARDIOVASCULAR: Negative for chest pain, leg swelling or palpitations GI: No nausea or vomiting EXAM: BP 122/62 (BP Site: Right Arm, BP Position: Sitting, BP Cuff Size: Regular Adult) Pulse 73 Temp 36.2 ?C (97.1 ?F) Resp 16 Wt 43.5 kg (96 lb) SpO2 99% BMI 19.39 kg/m? Lungs: Lungs clear to auscultation. No wheezing, rhonchi, rales.. Heart: RRR without murmur, gallop, or rubs. No ectopy. Health Maintenance List DTaP,Tdap,Td Vaccine(2 - T (more content not included)... [facility] 03-17-2025 History of Presen t illness Narrative Chief Complaint Patient presents with: Recheck: GI issues HPI Laurence Koroma is a 74 year old female who presents here today for wellness visit. Saw Dr Dann, taking 1tbs metamucil with 10oz and daily probiotic. Avoids greasy food. Still having soft stools, no blood or mucus in stool. Denies melena. Has been waking up to go to bathroom in the middle of the night for the past 6 months. Past medical history, appointments, medications, allergies reviewed. [...] benign 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 dysplasia of both carotid arteries 08/03/2022 US 07/2022 LALO (generalized anxiety disorder) 12/29/2020 History of Clostridium difficile colitis 11/20/2023 Due to antibiotics. May need Vanco at same time as antibiotics to prevent recurrence. Would do Vanco 125 mg a day while on an antibiotic. 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 zolpidem (AMBIEN) 10 mg Take 1 tablet by mouth at bedtime as needed for up to 180 days. FOR INSOMNIA alendronate (FOSAMAX) 70 mg tablet Take 1 tablet by mouth one time a week. In AM with cup of water on empty stomach. Nothing else by mouth and stay upright for 30 min. fluticasone (FLONASE) 50 mcg/actuation nasal spray Use 2 sprays in each nostril once daily. Rinse mouth after use. lisinopril (ZESTRIL) 40 mg tablet Take 0.5 tablets by mouth two times a day. hydroCHLOROthiazide 12.5 mg capsule Take 1 capsule by mouth once daily. Potassium Chloride (KLOR-CON 8) 8 mEq tablet Take 1 tablet by mouth two times a day. multivit,iron,minerals/lutein (CENTRUM SILVER ULTRA WOMEN'S ORAL) Take by mouth. Take one tablet daily L.acid/L.casei/B.bif/B.yevgeniy/FOS (PROBIOTIC BLEND ORAL) Take by mouth. acyclovir (ZOVIRAX) 800 mg tablet 1 tablet three times daily. aspirin, enteric coated (ASPIRIN, ENTERIC COATED) 81 mg EC tablet Take 1 tablet by mouth once daily. loratadine (CLARITIN) 10 mg tablet Take 1 tablet by mouth once daily. No current facility-administered medications on file prior to visit. Social History Social History Tobacco Use Smoking status: Never Smokeless tobacco: Never Vaping Use Vaping status: Never Used Substance Use Topics Alcohol use: No Drug use: No Review of Symptoms REVIEW OF SYSTEMS RESPIRATORY: Negative for cough,dyspnea or shortness of breath CARDIOVASCULAR: Negative for chest pain, leg swelling or palpitations GI: No nausea or vomiting EXAM: BP 122/62 (BP Site: Right Arm, BP Position: Sitting, BP Cuff Size: Regular Adult) Pulse 73 Temp 36.2 C (97.1 F) Resp 16 Wt 43.5 kg (96 lb) SpO2 99% BMI 19.39 kg/m Lungs: Lungs clear to auscultation. No wheezing, rhonchi, rales.. Heart: RRR without murmur, gallop, or rubs. No ectopy. Health Maintenance List DTaP,Tdap,Td Vaccine(2 - Td or Tdap) due on 10/31/2022 RSV Vaccine(1 - 1-dose 75+ series) Never done Advance Directive Discussion due on 10/15/2024 Depression Screening due on 08/08/2025 Annual PCP Team Chronic Disease Visit due on 02/12/2026 BP Controlled (<130/80) due on 02/12/2026 Bone Density Screening due on 09/26/2026 Diabetes Screening due on 02/10/2028 Shingrix Vaccine Completed Pneumococcal Vaccine: 50+ Completed Mammogram Screening Discontinued Influenza Vaccine Discontinued Colorectal Cancer Screening Discontinued Hepatitis C Screening Discontinued Covid-19 Vaccine Discontinued Data reviewed Latest Ref Rng 02/09/2025 02/13/2025 03/06/2025 WBC 3.70 - 11.00 k/uL 5.99 5.80 RBC 3.90 - 5.20 m/uL 3.63 (L) 4.06 Hemoglobin 11.5 - 15.5 g/dL 10.5 (L) 11.6 Hematocrit 36.0 - 46.0 % 32.5 (L) 36.7 MCV 80.0 - 100.0 fL 89.5 90.4 MCH 26.0 - 34.0 pg 28.9 28.6 MCHC 30.5 - 36.0 g/dL 32.3 31.6 RDW-CV 11.5 - 15.0 % 14.5 14.3 Platelet Count 150 - 400 k/uL 329 246 MPV 9.0 - 12.7 fL 10.9 11.7 Neut% % 55.9 36.1 Abs Neut (ANC) 1.45 - 7.50 k/uL 3.35 2.10 Lymph% % 33.1 51.6 Abs Lymph 1.00 - 4.00 k/uL 1.98 2.99 [place]% % 8.0 9.7 Abs [place] <0.87 k/uL 0.48 0.56 Eosin% % 1.8 1.7 Abs Eosin <0.46 k/uL 0.11 0.10 Baso% % 0.7 0.7 Abs Baso <0.11 k/uL 0.04 0.04 Immature Gran % % 0.5 0.2 IMMATURE GRANS (ABS) <0.10 k/uL 0.03 <0.03 NRBC /100 WBC 0.0 0.0 Absolute nRBC <0.01 k/uL <0.01 <0.01 DTYPE Auto Auto Total Cholesterol, Nonfasting <200 mg/dL 142 Triglycerides, Nonfasting <150 mg/dL 91 HDL Cholesterol, Nonfasting >39 mg/dL 41 LDL Cholesterol Calculated, Nonfasting <100 mg/dL 84 Non HDL Cholesterol, Nonfasting <130 mg/dL 101 VLDL Cholesterol, Nonfasting <30 mg/dL 14 Total Chol/HDL Ratio, Nonfasting <5.10 mg/dL 3.46 LDL/HDL Ratio, Nonfasting <2.54 mg/dL 2.05 Iron 41 - 186 ug/dL 60 TIBC 232 - 386 ug/dL 284 Transferrin Saturation 15.0 - 57.0 % 21.1 Hemoglobin A1C 4.3 - 5.6 % 6.0 (H) Estimated Average Glucose mg/dL 126 Vitamin D 25 Hydroxy 31.0 - 80.0 ng/mL 71.0 Occult Blood, Stool Negative Negative Ferritin 14.7 - 205.1 ng/mL 153.0 Folate >4.7 ng/mL >20.0 Vitamin B12 232 - 1,245 pg/mL 1,281 (H) TSH 0.270 - 4.200 mIU/L 2.370 Legend: (L) Low (H) High ASSESSMENT/PLAN: 1. Essential hypertension, benign - ICD9: 401.1, ICD10: I10 (primary diagnosis) Well controlled on current regimen 2. LALO (generalized anxiety disorder) - ICD9: 300.02, ICD10: F41.1 No new concerns 3. Elevated hemoglobin A1c - ICD9: 790.29, ICD10: R73.09 A1C slightly increased from 5.7 7 mon ago to 6.0 now, will continue to monitor and informed patient to work on diet and avoid excess sugar and carbs. 4. Insomnia, unspecified type - ICD9: 780.52, ICD10: G47.00 No new concerns 5. Age-related osteoporosis without current pathological fracture - ICD9: 733.01, ICD10: M81.0 No new concerns, last Dexa scan completed in Sep 2024. 6. 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 dysplasia of both carotid arteries - ICD9: 447.8, ICD10: I77.3 Patient to follow up with vascular medicine to reestablish care and complete any necessary repeat US imaging for monitoring of FMD. - CONSULT TO VASCULAR MEDICINE 7. Nocturia - ICD9: 788.43, ICD10: R35.1 - URINALYSIS, WITH MICROSCOPIC Patient to follow up in 6 months or will contact us sooner with any concerns. Ariana PARISI I have personally seen and examined the patient and performed the medical-decision making components. I have reviewed the Physician Social Media Project Manager (PA) student's documentation and verified the findings in the note as written. Any additions or changes are noted in bold/italics. Cnostance Klein PA-C documented in this encounter [facility] 03-10-2025 Telephone encounter Note Pt notified of same. Elina Mckenzie LPN [facility] 03-10-2025 Miscellaneous Notes Pt notified of same. Elina Mckenzie LPN Repeat CBC is normal. Constance Klein PA-C documented in this encounter [facility] 03-10-2025 Telephone encounter Note Repeat CBC is normal. Constance Klein PA-C [facility] 03-02-2025 Telephone encounter Note The following approved medication requests have been transmitted electronically. Requested Prescriptions Signed Prescriptions Disp Refills zolpidem (AMBIEN) 10 mg 90 tablet 1 Sig: Take 1 tablet by mouth at bedtime as needed for up to 180 days. FOR INSOMNIA Authorizing Provider: CONSTANCE KLEIN alendronate (FOSAMAX) 70 mg tablet 12 tablet 3 Sig: Take 1 tablet by mouth one time a week. In AM with cup of water on empty stomach. Nothing else by mouth and stay upright for 30 min. Authorizing Provider: CONSTANCE KLEIN PA-C [facility] 03-02-2025 Miscellaneous Notes The following approved medication requests have been transmitted electronically. Requested Prescriptions Signed Prescriptions Disp Refills zolpidem (AMBIEN) 10 mg 90 tablet 1 Sig: Take 1 tablet by mouth at bedtime as needed for up to 180 days. FOR INSOMNIA Authorizing Provider: CONSTANCE KLEIN alendronate (FOSAMAX) 70 mg tablet 12 tablet 3 Sig: Take 1 tablet by mouth one time a week. In AM with cup of water on empty stomach. Nothing else by mouth and stay upright for 30 min. Authorizing Provider: CONSTANCE KLEIN PA-C Prescription Refill Information The patient has been identified by name and date of : Yes Caregiver verified no other encounters exist for this prescription request: Yes Caregiver confirmed with patient/requestor that no other refills are due, in the near future, with this provider at this time: Yes The last office visit in the department: 02/12/25 Does the patient have a future office visit with this provider/department: Yes Requested Prescriptions Pending Prescriptions Disp Refills zolpidem (AMBIEN) 10 mg 90 tablet 1 Sig: Take 1 tablet by mouth at bedtime as needed for up to 180 days. FOR INSOMNIA alendronate (FOSAMAX) 70 mg tablet 12 tablet 3 Sig: Take 1 tablet by mouth one time a week. In AM with cup of water on empty stomach. Nothing else by mouth and stay upright for 30 min. Elina Mckenzie LPN March 02, 2025 1:34 PM Prescription Refill Information The patient has been identified by name and date of : Yes Caregiver verified no other encounters exist for this prescription request: Yes Caregiver confirmed with patient/requestor that no other refills are due, in the near future, with this provider at this time: Yes The last office visit in the department: 02/12/25 Does the patient have a future office visit with this provider/department: Yes Requested Prescriptions Pending Prescriptions Disp Refills zolpidem (AMBIEN) 10 mg 90 tablet 1 Sig: Take 1 tablet by mouth at bedtime as needed for up to 180 days. FOR INSOMNIA alendronate (FOSAMAX) 70 mg tablet 12 tablet 3 Sig: Take 1 tablet by mouth one time a week. In AM with cup of water on empty stomach. Nothing else by mouth and stay upright for 30 min. Dionna Allan March 02, 2025 10:16 AM documented in this encounter [facility] 03-02-2025 Telephone encounter Note Prescription Refill Information The patient has been identified by name and date of : Yes Caregiver verified no other encounters exist for this prescription request: Yes Caregiver confirmed with patient/requestor that no other refills are due, in the near future, with this provider at this time: Yes The last office visit in the department: 02/12/25 Does the patient have a future office visit with this provider/department: Yes Requested Prescriptions Pending Prescriptions Disp Refills zolpidem (AMBIEN) 10 mg 90 tablet 1 Sig: Take 1 tablet by mouth at bedtime as needed for up to 180 days. FOR INSOMNIA alendronate (FOSAMAX) 70 mg tablet 12 tablet 3 Sig: Take 1 tablet by mouth one time a week. In AM with cup of water on empty stomach. Nothing else by mouth and stay upright for 30 min. Elina Mckenzie LPN March 02, 2025 1:34 PM [facility] 03-02-2025 Telephone encounter Note Prescription Refill Information The patient has been identified by name and date of : Yes Caregiver verified no other encounters exist for this prescription request: Yes Caregiver confirmed with patient/requestor that no other refills are due, in the near future, with this provider at this time: Yes The last office visit in the department: 02/12/25 Does the patient have a future office visit with this provider/department: Yes Requested Prescriptions Pending Prescriptions Disp Refills zolpidem (AMBIEN) 10 mg 90 tablet 1 Sig: Take 1 tablet by mouth at bedtime as needed for up to 180 days. FOR INSOMNIA alendronate (FOSAMAX) 70 mg tablet 12 tablet 3 Sig: Take 1 tablet by mouth one time a week. In AM with cup of water on empty stomach. Nothing else by mouth and stay upright for 30 min. Dionna Allan March 02, 2025 10:16 AM [facility] 02-26-2025 Note HNO ID: [id number] Author: ELINA MCKENZIE LPN Service: ? Author Type: LICENSED NURSE Type: Progress Notes Filed: 02/26/2025 07:22 Note Text: Scan on 02/25/2025 7:35 PM by Yuly Mills PA-C: Miscellaneous Lab Scan on 02/26/2025 4:35 AM by Yuly Mills PA-C: Miscellaneous Lab [facility] 02-26-2025 History of Presen t illness Narrative Scan on 02/25/2025 7:35 PM by Yuly Mills PA-C: Miscellaneous Lab Scan on 02/26/2025 4:35 AM by Yuly Mills PA-C: Miscellaneous Lab documented in this encounter [facility] 02-20-2025 Note HNO ID: [id number] Author: ELINA MCKENZIE LPN Service: ? Author Type: LICENSED NURSE Type: Progress Notes Filed: 02/20/2025 13:19 Note Text: Scan on 02/20/2025 12:41 PM by Yuly Mills PA-C: Chemistry Scan on 02/20/2025 12:14 PM by Yuly Mills PA-C: Hematology [facility] 02-20-2025 History of Presen t illness Narrative Scan on 02/20/2025 12:41 PM by Yuly Mills PA-C: Chemistry Scan on 02/20/2025 12:14 PM by Yuly Mills PA-C: Hematology documented in this encounter [facility] 02-20-2025 Evaluation note Diagnosis Onset Date Resolution Clostridium difficile diarrhea acute February 20, 2025 8: 51am Diverticulitis acute February 20, 2 025 8:51am [facility] Work Phone: [phone]) 231-566805-09-2025 Evaluation note* Diagnosis Onset Date Resolution Status Admit Date Clostridium difficile diarrhea acute February 20, 2025 8:51am Diverticulitis acute February 20, 2 025 8:51am Clostridium difficile diarrhea acute March 04, 2025 1:34pm Diverticulitis acute March 04, 2025 1:34pm [place] [employer] [facility] Work Phone: [phone]) 572-763405-09-2025 Evaluation note* Diagnosis Onset Date Resolution Status Admit Date Clostridium difficile diarrhea acute February 20, 2025 8:51am Diverticulitis acute February 20, 2 025 8:51am Clostridium difficile diarrhea acute March 04, 2025 1:34pm Diverticulitis acute March 04, 2025 1:34pm 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 dysplasia chronic J mary 2024 1:00pm [facility] Work Phone: [phone]) 693-864705-09-2025 Evaluation note* Diagnosis Onset Date Resolution Status Admit Date Clostridium difficile diarrhea acute February 20, 2025 8:51am Diverticulitis acute February 20, 2 025 8:51am Clostridium difficile diarrhea acute March 04, 2025 1:34pm Diverticulitis acute March 04, 2025 1:34pm 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 dysplasia chronic J mary 2024 1:00pm Headache noneactive May 20 1:15pm [facility] Work Phone: [phone]) 650-926605-06-2025 Telephone encounter Note* Telephone Encounter - Elina Mckenzie LPN - 02/17/2025 12:18 PM EDT Patient notified of results and provider's instructions. Patient verbalizes understanding. Pt advises that she has an appointment this 02/20/[address] Quigley. Copy of stool studies faxed to Dr Quigley's office. Elina Mckenzie LPN [facility]05-06-2025 Miscellaneous Notes* Telephone Encounter - Elina Mckenzie LPN - 02/17/2025 12:18 PM EDT Patient notified of results and provider's instructions. Patient verbalizes understanding. Pt advises that she has an appointment this 02/20/[address] at [address] Quigley. Copy of stool studies faxed to Dr Quigley's office. Elina Mckenzie LPN * Telephone Encounter - Constance Klein PA-C - 02/17/2025 10:49 AM EDT Stool tests are negative. I will defer further testing for gastro. She can do cbc before appointment. That's fine. Just want to trend. Constance Klein PA-C * Telephone Encounter - Elina Mckenzie LPN - 02/16/2025 1:43 PM EDT Pt notified of same, verbalizes understanding. Pt states she has ov f/u with you 03/17/25. Questions if you want the labs completed prior to her ov since this is close to one month. Pt aware she will be contacted after review by Constance. Pt states her system is still meddsed up for the past 3 weeks. States she has mostly been eating broth,jello and water. Has had a plain potato and had some boiled white fish over the weekend. States sometimes she has diarrhea and yesterday she did not have a bowel movement at all. Was able to bringin a sample today. Pt still very concerned about possibly having C-diff. Advised pt she will be contacted once Constance has the results back. Pt verbalizes understanding. Elina Mckenzie LPN * Telephone Encounter - Constance Klein PA-C - 02/16/2025 10:39 AM EDT Additional labs are all wnl. Repeat CBC in 1 month to trend values. Still waiting on some of the stool results. Constance Klein PA-C [facility] Tele[facility] encounter Note * Telephone Encounter - Constance Klein PA-C - 02/17/2025 10:49 AM EDT Stool tests are negative. I will defer further testing for gastro. She can do cbc before appointment. That's fine. Just want to trend. Constance Klein PA-C [facility]05-06-2025 Telephone encounter Note* Telephone Encounter - Margaret Reyes RN - 02/17/2025 8:24 AM EDT Opened in error. Margaret Reyes RN [facility]05-06-2025 Miscellaneous Notes* Telephone Encounter - Margaret Reyes RN - 02/17/2025 8:24 AM EDT Opened in error. Margaret Reyes RN [facility] Telephone encounter Note * Telephone Encounter - Elina Mckenzie LPN - 02/16/2025 1:43 PM EDT Pt notified of same, verbalizes understanding. Pt states she has ov f/u with you 03/17/25. Questions if you want the labs completed prior to her ov since this is close to one month. Pt aware she will be contacted after review by Constance. Pt states her system is still meddsed up for the past 3 weeks. States she has mostly been eating broth,jello and water. Has had a plain potato and had some boiled white fish over the weekend. States sometimes she has diarrhea and yesterday she did not have a bowel movement at all. Was able to bringin a sample today. Pt still very concerned about possibly having C-diff. Advised pt she will be contacted once Constance has the results back. Pt verbalizes understanding. Elina Mckenzie LPN [facility]05-05-2025 Telephone encounter Note* Telephone Encounter - Constance Klein PA-C - 02/16/2025 10:39 AM EDT Additional labs are all wnl. Repeat CBC in 1 month to trend values. Still waiting on some of the stool results. Constance Klein PA-C [facility]05-01-2025 NoteHNO ID: [id number] Author: CONSTANCE KLEIN PA-C Service: ? Author Type: Physician Social Media Project Manager Type: Progress Notes Filed: 02/12/2025 14:42 Note Text: Chief Complaint Patient presents with: Follow Up: Diverticulitis HPI Laurence Koroma is a 74 year old female who presents here today for Above Complaints.. Gastrointestinal Symptoms: - Persistent GI upset, difficulty retaining food; primarily consuming clear liquids, Jell-O, and broth. - Recent attempt to eat soft noodles resulted in very soft stool the following morning. - Avoids eating before leaving home due to fear of incontinence; wears a pad for protection. - Denies current abdominal pain. - Recent weight loss over the past three weeks. - History of C. diff x2. - Recent ER visit on January 26, received two antibiotics. - Taking probiotics BID and consuming small amounts of yogurt. - Colonoscopy in November [address] Mikael Benson revealed inflammation and diverticulosis in the sigmoid colon; a 5 mm polyp in the cecum was removed for biopsy. - Family history of diverticulosis in mother, who is 95 years old. Anemia: - Recent labs showed low blood count. - Has not been eating normally or taking multivitamins. Past medical history, appointments, medications, allergies reviewed. [...] benign 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 dysplasia of both carotid arteries 08/03/2022 US 07/2022 LALO (generalized anxiety disorder) 12/29/2020 History of Clostridium difficile colitis 11/20/2023 Due to antibiotics. May need Vanco at same time as antibiotics to prevent recurrence. Would do Vanco 125 mg a day while on an antibiotic. 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 hydroCHLOROthiazide 12.5 mg capsule Take 1 capsule by mouth once daily. Potassium Chloride (KLOR-CON 8) 8 mEq tablet Take 1 tablet by mouth two times a day. zolpidem (AMBIEN) 10 mg Take 1 tablet by mouth at bedtime as needed for up to 180 days. FOR INSOMNIA multivit,iron,minerals/lutein (CENTRUM SILVER ULTRA WOMEN'S ORAL) Take by mouth. Take one tablet daily fluticasone (FLONASE) 50 mcg/actuation nasal spray Use 2 Sprays in each nostril once daily. Rinse mouth after use. alendronate (FOSAMAX) 70 mg tablet Take 1 tablet by mouth one time a week. In AM with cup of water on empty stomach. Nothing else by mouth and stay upright for 30 min. L.acid/L.casei/B.bif/B.yevgeniy/FOS (PROBIOTIC BLEND ORAL) Take by mouth. acyclovir (ZOVIRAX) 800 mg tablet 1 tablet three times daily. aspirin, enteric coated (ASPIRIN, ENTERIC COATED) 81 mg EC tablet Take 1 tablet by mouth once daily. loratadine (CLARITIN) 10 mg tablet Take 1 tablet by mouth once daily. No current facility-administered medications on file prior to visit. Social History Social History Tobacco Use Smoking status: Never Smokeless tobacco: Never Vaping Use Vaping status: Never Used Substance Use Topics (more content not included)...[facility]05-01-2025 History of Present illness Narrative* Constance Klein PA-C - 02/12/2025 1:51 PM EDT Chief Complaint Patient presents with: Follow Up: Diverticulitis HPI Laurence Koroma is a 74 year old female who presents here today for Above Complaints.. Gastrointestinal Symptoms: - Persistent GI upset, difficulty retaining food; primarily consuming clear liquids, Jell-O, and broth. - Recent attempt to eat soft noodles resulted in very soft stool the following morning. - Avoids eating before leaving home due to fear of incontinence; wears a pad for protection. - Denies current abdominal pain. - Recent weight loss over the past three weeks. - History of C. diff x2. - Recent ER visit on January 26, received two antibiotics. - Taking probiotics BID and consuming small amounts of yogurt. - Colonoscopy in [place] [address] Mikael Benson revealed inflammation and diverticulosis in thesigmoid colon; a 5 mm polyp in the cecum was removed for biopsy. - Family history of diverticulosis in mother, who is 95 years old. Anemia: - Recent labs showed low blood count. - Has not been eating normally or taking multivitamins. Past medical history, appointments, medications, allergies reviewed. [...] benign 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 dysplasia of both carotid arteries 08/03/2022 US 07/2022 LALO (generalized anxiety disorder) 12/29/2020 History of Clostridium difficile colitis 11/20/2023 Due to antibiotics. May need Vanco at same time as antibiotics to prevent recurrence. Would do Vanco 125 mg a day while on an antibiotic. 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 hydroCHLOROthiazide 12.5 mg capsule Take 1 capsule by mouth once daily. Potassium Chloride (KLOR-CON 8) 8 mEq tablet Take 1 tablet by mouth two times a day. zolpidem (AMBIEN) 10 mg Take 1 tablet by mouth at bedtime as needed for up to 180 days. FOR INSOMNIA multivit,iron,minerals/lutein (CENTRUM SILVER ULTRA WOMEN'S ORAL) Take by mouth. Take one tablet daily fluticasone (FLONASE) 50 mcg/actuation nasal spray Use 2 Sprays in each nostril once daily. Rinse mouth after use. alendronate (FOSAMAX) 70 mg tablet Take 1 tablet by mouth one time a week. In AM with cup of water on empty stomach. Nothing else by mouth and stay upright for 30 min. L.acid/L.casei/B.bif/B.yevgeniy/FOS (PROBIOTIC BLEND ORAL) Take by mouth. acyclovir (ZOVIRAX) 800 mg tablet 1 tablet three times daily. aspirin, enteric coated (ASPIRIN, ENTERIC COATED) 81 mg EC tablet Take 1 tablet by mouth once daily. loratadine (CLARITIN) 10 mg tablet Take 1 tablet by mouth once daily. No current facility-administered medications on file prior to visit. Social History Social History Tobacco Use Smoking status: Never Smokeless tobacco: Never Vaping Use Vaping status: Never Used Substance Use Topics Alcohol use: No Drug use: No Review of Symptoms REVIEW OF SYSTEMS SEE HPI EXAM: BP 128/60 (BP Site: Right Arm, BP Position: Sitting, BP Cuff Size: Regular Adult) Pulse 80 Temp37 C (98.6 F) Resp 16 Wt 44.2 kg (97 lb 6 oz) SpO2 96% BMI 19.67 kg/m General Appearance: Well appearing, alert, in no acute distress, well-hydrated, well nourished.. Lungs: Lungs clear to auscultation. No wheezing, rhonchi, rales.. Heart: RRR without murmur, gallop, or rubs. No ectopy. Abdomen: Abdomen soft, non-tender. Bowel sounds normal. No masses, organomegaly. Health Maintenance List DTaP,Tdap,Td Vaccine(2 - Td or Tdap) due on 10/31/2022 RSV Vaccine(1 - 1-dose 75+ series) Never done Advance Directive Discussion due on 10/15/2024 Depression Screening due on 08/08/2025 Annual PCP Team Chronic Disease Visit due on 02/12/2026 BP Controlled (<130/80) due on 02/12/2026 Bone Density Screening due on 09/26/2026 Diabetes Screening due on 02/10/2028 Shingrix Vaccine Completed Pneumococcal Vaccine: 50+ Completed Mammogram Screening Discontinued Influenza Vaccine Discontinued Colorectal Cancer Screening Discontinued Hepatitis C Screening Discontinued Covid-19 Vaccine Discontinued Data reviewed Assessment and Plan 1. Diarrhea, unspecified type (R19.7) 2. Diverticulosis (K57.90) 3. Diverticulitis (K57.92) - Persistent diarrhea and dietary sensitivities, including intolerance to whole milk, greasy foods,and raw vegetables. Recent colonoscopy in November 2020 revealed diverticulosis in the sigmoid colon and a 5 mm polyp in the cecum, which was removed and biopsied. - Ordered stool studies to rule out infectious causes. - Referred to gastroenterology for further evaluation and potential colonoscopy to assess for colitis or other underlying causes. - Advised patient to continue a clear liquid diet and monitor symptoms closely. 4. History of Clostridium difficile colitis (Z86.19) - Patient has a history of C. difficile colitis and is currently taking probiotics to prevent recurrence. - Continue probiotic use. 5. Anemia, unspecified type (D64.9) - Recent labs indicate mild anemia. - Ordered additional labs to check iron, folate, B12, and ferritin levels. - Will repeat blood work in 1-2 months to monitor for improvement. 6. Sore throat (J02.9) Constance Klein PA-C Recording using [employer] software for draft documentation of the visit was discussed with the patient/authorized medical field representative; all questions welcomed and answered. Patient/authorized medical field representative agreed to proceed documented in this encounterReg[facility] Telephone encounter Note * Telephone Encounter - Constance Klein PA-C - 02/11/2025 12:18 PM EDT Will discuss tomorrow. [facility]04-30-2025 Miscellaneous Notes* Telephone Encounter - Constance Klein PA-C - 02/11/2025 12:18 PM EDT Will discuss tomorrow. * Telephone Encounter - Elina Mckenzie LPN - 02/11/2025 11:56 AM EDT Pt notified of Constance's message and verbalizes understanding. States when she saw [facility] they didn'ttalk about the CT scan. She has been taking 2 probiotics daily as [facility] recommended. She states thatshe does not want to get C-diff like she has had in the past. Advises that she knows her colon is not healed yet. Has been mostly having a clear liquid diet. She did try yogurt yesterday. She did have one piece of toast at one point. States she has a soft stool after eating. She is not sure which way she wants to go with visit tomorrow. She will let us know tomorrow. Offered a sooner appointment tomorrow morning but pt states her morning is not good tomorrow. Advised pt we can reschedule her 6 month f/u. Pt states she knows the labs she did for visit will be off and pt is worried about that. Elina Mckenzie LPN * Telephone Encounter - Constance Klein PA-C - 02/11/2025 10:56 AM EDT Her Visit with me is a routine 6 month exam. Not ER follow up. Looks like she had her ER follow up with [facility] on 01/29. It looks like the CT showed diverticulitis which is what she was treated for. If she is still having symptoms we will focus on discussing that during visit and decide next steps, and the reschedule her for the routine health visit. * Telephone Encounter - Osmar Bradford RN - 02/11/2025 10:49 AM EDT Pt reports she has appt with Eric Ernie tomorrow at 1:20 pm. Pt reports she has not received the results of the CT scan done at [facility] ER on 01/26/25. Asking if provider would review those results with her at appt. documented in this encounterReg[facility]04-30-2025 Telephone encounter Note * Telephone Encounter - Elina Mckenzie LPN - 02/11/2025 11:56 AM EDT Pt notified of Constance's message and verbalizes understanding. States when she saw [facility] they didn'ttalk about the CT scan. She has been taking 2 probiotics daily as [facility] recommended. She states thatshe does not want to get C-diff like she has had in the past. Advises that she knows her colon is not healed yet. Has been mostly having a clear liquid diet. She did try yogurt yesterday. She did have one piece of toast at one point. States she has a soft stool after eating. She is not sure which way she wants to go with visit tomorrow. She will let us know tomorrow. Offered a sooner appointment tomorrow morning but pt states her morning is not good tomorrow. Advised pt we can reschedule her 6 month f/u. Pt states she knows the labs she did for visit will be off and pt is worried about that. Elina Mckenzie LPN [facility]04-30-[facility] Telephone encounter Note* Telephone Encounter - Constance Klein PA-C - 02/11/2025 10:56 AM EDT Her Visit with me is a routine 6 month exam. Not ER follow up. Looks like she had her ER follow up with [facility] on 01/29. It looks like the CT showed diverticulitis which is what she was treated for. If she is still having symptoms we will focus on discussing that during visit and decide next steps, and the reschedule her for the routine health visit. [facility]04-30-[facility]25 Telephone encounter Note* Telephone Encounter - Osmar Bradford RN - 02/11/2025 10:49 AM EDT Pt reports she has appt with Eric Klein tomorrow at 1:20 pm. Pt reports she has not received the results of the CT scan done at [facility] ER on 01/26/25. Asking if provider would review those results with her at appt. [facility]04-17-2025 NoteHNO ID: [id number] Author: KATIE CHAUDHARI APRN.CARDROOM MANAGER Service: ? Author Type: Nurse Practitioner Type: Progress Notes Filed: 01/29/2025 13:31 Note Text: Chief Complaint Patient presents with: ER F/U HPI Laurence Koroma is a 74 year old female who presents here today for Above Complaints.. Patient presents for ER follow up. Patient was diagnosed with diverticulitis and started on cipro and flagyl. Patient reports she began having frequent episodes of diarrhea just in the morning since starting antibiotics. Patient does have a history of Cdiff and is concerned she may have it again. Past medical history, appointments, medications, allergies reviewed. [...] US 07/2022 LALO (generalized anxiety disorder) 12/29/2020 History of Clostridium difficile colitis 11/20/2023 Due to antibiotics. May need Vanco at same time as antibiotics to prevent recurrence. Would do Vanco 125 mg a day while on an antibiotic. 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 hydroCHLOROthiazide 12.5 mg capsule Take 1 capsule by mouth once daily. Potassium Chloride (KLOR-CON 8) 8 mEq tablet Take 1 tablet by mouth two times a day. zolpidem (AMBIEN) 10 mg Take 1 tablet by mouth at bedtime as needed for up to 180 days. FOR INSOMNIA multivit,iron,minerals/lutein (CENTRUM SILVER ULTRA WOMEN'S ORAL) Take by mouth. Take one tablet daily fluticasone (FLONASE) 50 mcg/actuation nasal spray Use 2 Sprays in each nostril once daily. Rinse mouth after use. alendronate (FOSAMAX) 70 mg tablet Take 1 tablet by mouth one time a week. In AM with cup of water on empty stomach. Nothing else by mouth and stay upright for 30 min. L.acid/L.casei/B.bif/B.yevgeniy/FOS (PROBIOTIC BLEND ORAL) Take by mouth. acyclovir (ZOVIRAX) 800 mg tablet 1 tablet three times daily. (Patient taking differently: 800 mg as needed.) aspirin, enteric coated (ASPIRIN, ENTERIC COATED) 81 mg EC tablet Take 1 tablet by mouth once daily. loratadine (CLARITIN) 10 mg tablet Take 1 tablet by mouth once daily. No current facility-administered medications on file prior to visit. Social History Social History Tobacco Use Smoking status: Never Smokeless tobacco: Never Vaping Use Vaping status: Never Used Substance Use Topics Alcohol use: No Drug use: No Review of Symptoms REVIEW OF SYSTEMS SEE HPI EXAM: BP 108/64 Pulse 96 Wt 46 kg (101 lb 6.6 oz) BMI 20.48 kg/m? General Appearance: Well appearing, alert, in no acute distress, well-hydrated, well nourished. Abdomen: Positive findings: tenderness moderate LLQ. Health Maintenance List BP Controlled (<130/80) Never done DTaP,Tdap,Td Vaccine(2 - Td or Tdap) due on 10/31/2022 RSV Vaccine(1 - 1-dose 75+ series) Never done Advance Directive Discussion due on 10/15/2024 Depression Screening due on (more content not included)...[facility]04-17-2025 History of Present illness Narrative* Katie Chaudhari, WAYLON.CARDROOM MANAGER - 01/29/2025 1:09 PM EDT Chief Complaint Patient presents with: ER F/U HPI Laurence Koroma is a 74 year old female who presents here today for Above Complaints.. Patient presents for ER follow up. Patient was diagnosed with diverticulitis and started on cipro and flagyl. Patient reports she began having frequent episodes of diarrhea just in the morning since starting antibiotics. Patient does have a history of Cdiff and is concerned she may have it again. Past medical history, appointments, medications, allergies reviewed. [...] US 07/2022 LALO (generalized anxiety disorder) 12/29/2020 History of Clostridium difficile colitis 11/20/2023 Due to antibiotics. May need Vanco at same time as antibiotics to prevent recurrence. Would do Vanco 125 mg a day while on an antibiotic. 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 hydroCHLOROthiazide 12.5 mg capsule Take 1 capsule by mouth once daily. Potassium Chloride (KLOR-CON 8) 8 mEq tablet Take 1 tablet by mouth two times a day. zolpidem (AMBIEN) 10 mg Take 1 tablet by mouth at bedtime as needed for up to 180 days. FOR INSOMNIA multivit,iron,minerals/lutein (CENTRUM SILVER ULTRA WOMEN'S ORAL) Take by mouth. Take one tablet daily fluticasone (FLONASE) 50 mcg/actuation nasal spray Use 2 Sprays in each nostril once daily. Rinse mouth after use. alendronate (FOSAMAX) 70 mg tablet Take 1 tablet by mouth one time a week. In AM with cup of water on empty stomach. Nothing else by mouth and stay upright for 30 min. L.acid/L.casei/B.bif/B.yevgeniy/FOS (PROBIOTIC BLEND ORAL) Take by mouth. acyclovir (ZOVIRAX) 800 mg tablet 1 tablet three times daily. (Patient taking differently: 800 mg as needed.) aspirin, enteric coated (ASPIRIN, ENTERIC COATED) 81 mg EC tablet Take 1 tablet by mouth once daily. loratadine (CLARITIN) 10 mg tablet Take 1 tablet by mouth once daily. No current facility-administered medications on file prior to visit. Social History Social History Tobacco Use Smoking status: Never Smokeless tobacco: Never Vaping Use Vaping status: Never Used Substance Use Topics Alcohol use: No Drug use: No Review of Symptoms REVIEW OF SYSTEMS SEE HPI EXAM: BP 108/64 Pulse 96 Wt 46 kg (101 lb 6.6 oz) BMI 20.48 kg/m General Appearance: Well appearing, alert, in no acute distress, well-hydrated, well nourished. Abdomen: Positive findings: tenderness moderate LLQ. Health Maintenance List BP Controlled (<130/80) Never done DTaP,Tdap,Td Vaccine(2 - Td or Tdap) due on 10/31/2022 RSV Vaccine(1 - 1-dose 75+ series) Never done Advance Directive Discussion due on 10/15/2024 Depression Screening due on 08/08/2025 Annual PCP Team Chronic Disease Visit due on 09/30/2025 Bone Density Screening due on 09/26/2026 Diabetes Screening due on 07/30/2027 Shingrix Vaccine Completed Pneumococcal Vaccine: 50+ Completed Mammogram Screening Discontinued Influenza Vaccine Discontinued Colorectal Cancer Screening Discontinued Hepatitis C Screening Discontinued Covid-19 Vaccine Discontinued ASSESSMENT/PLAN: 1. Diverticulitis - ICD9: 562.11, ICD10: K57.92 (primary diagnosis) -Continue ciprofloxacin and metronidazole -Continue probiotics 2. History of Clostridium difficile colitis - ICD9: V12.79, ICD10: Z86.19 -Continue ciprofloxacin and metrodinazole -Continue probiotics 3. Diarrhea, unspecified type - ICD9: 787.91, ICD10: R19.7 -Continue ciprofloxacin and metronidazole -Continue probiotics Patient to send MCM or call in for update regarding BM's. If patient is continuing to have frequentBM's will order stool studies. Katie Chaudhari APRN.SODNRA documented in this encounterRegency [facility]04-15-2025 NoteHNO ID: [id number] Author: SOL LOWERY MA Service: ? Author Type: Assistant Site Manager Type: Progress Notes Filed: 01/27/2025 14:53 Note Text: Scan on 01/26/2025 3:24 PM by ProviderYuly PA-C: Consultation - Emergency Medicine Appointment ER - Katie 01/30/2025 Sol Lowery [facility]04-15-2025 History of Present illness Narrative* Sol Lowery MA - 01/27/2025 2:52 PM EDT Scan on 01/26/2025 3:24 PM by Yuly Mills PA-C: Consultation - Emergency Medicine Appointment ER - Katie 01/30/2025 Sol Lowery MA documented in this encounterRegency [facility]04-15-2025 Telephone encounter Note * Telephone Encounter - Osmar Bradford RN - 01/27/2025 1:20 PM EDT Pt returned call and given provider's message below with verbalized understanding. [facility]04-15-2025 Miscellaneous Notes* Telephone Encounter - Osmar Bradford RN - 01/27/2025 1:20 PM EDT Pt returned call and given provider's message below with verbalized understanding. * Telephone Encounter - Elmira Amos MA - 01/27/2025 12:28 PM EDT Call to patient, received VM. LM to return call to office and speak with Triage Nurse. Please update pt on Provider's response below. Elmira Amos MA * Telephone Encounter - Katie Chaudhari APRN.CNP - 01/27/2025 11:59 AM EDT Unfortunately Cdiff can occur with any antibiotic use. Would recommend patient stay well hydrated and keep track of amount of loose stools each day. * Telephone Encounter - Margaret Reyes RN - 01/27/2025 10:41 AM EDT Patient went to [facility] ER yesterday and was diagnosed with diverticulitis. Was ordered Cipro and Flagyl Patient made ER F/U appt for this Sunday with Katie Chaudhari CNP, as advised. Patient reports that the last two times she was given antibiotics like this, she developed C-Diff, causing hospitalization thae last time, which was in 2022. She has began the Cipro and Flagyl yesterday as ordered by [facility] and this morning has began with watery and loose stools. She expresses concernfor developing C- Diff. Hydration has been encouraged along with a review of what foods to avoid. She started taking a probiotoc, called [employer]. Patient asking provider if there is anything she should be doing or watching for in the mean time between now and her appt with Katie on Sunday? She wants to avoid getting C-Diff again or having to go back to the hospital in the future. Margaret Reyes RN documented in this encounterRegency [facility]04-15-2025 Telephone encounter Note * Telephone Encounter - Elmira Amos MA - 01/27/2025 12:28 PM EDT Call to patient, received VM. LM to return call to office and speak with Triage Nurse. Please update pt on Provider's response below. Elmira Amos MA [facility]04-15-2025 Telephone encounter Note* Telephone Encounter - Katie Chaudhari APRN.CNP - 01/27/2025 11:59 AM EDT Unfortunately Cdiff can occur with any antibiotic use. Would recommend patient stay well hydrated and keep track of amount of loose stools each day. [facility]04-15-2025 Telephone encounter Note* Telephone Encounter - Margaret Reyes RN - 01/27/2025 10:41 AM EDT Patient went to [facility] ER yesterday and was diagnosed with diverticulitis. Was ordered Cipro and Flagyl Patient made ER F/U appt for this Sunday with Katie Chaudhari CNP, as advised. Patient reports that the last two times she was given antibiotics like this, she developed C-Diff, causing hospitalization thae last time, which was in 2022. She has began the Cipro and Flagyl yesterday as ordered by [facility] and this morning has began with watery and loose stools. She expresses concernfor developing C- Diff. Hydration has been encouraged along with a review of what foods to avoid. She started taking a probiotoc, called [employer]. Patient asking provider if there is anything she should be doing or watching for in the mean time between now and her appt with Katie on Sunday? She wants to avoid getting C-Diff again or having to go back to the hospital in the future. Margaret Reyes RN [facility]03-03-2025 Telephone encounter Note* Telephone Encounter - Sol Lowery MA - 12/15/2024 2:39 PM EST Prescription Refill Information The patient has been identified by name and date of : Yes Caregiver verified no other encounters exist for this prescription request: Yes Caregiver confirmed with patient/requestor that no other refills are due, in the near future, with this provider at this time: Yes The last office visit in the department: 07/2024 Does the patient have a future office visit with this provider/department: Yes Requested Prescriptions Pending Prescriptions Disp Refills lisinopril (ZESTRIL) 40 mg tablet 90 tablet Sig: Take 0.5 tablets by mouth two times a day. hydroCHLOROthiazide 12.5 mg capsule 90 capsule 1 Sig: Take 1 capsule by mouth once daily. Sol Lowery MA December 15, 2024 2:39 PM [facility]03-03-2025 Miscellaneous Notes* Telephone Encounter - Sol Lowery MA - 12/15/2024 2:39 PM EST Prescription Refill Information The patient has been identified by name and date of : Yes Caregiver verified no other encounters exist for this prescription request: Yes Caregiver confirmed with patient/requestor that no other refills are due, in the near future, with this provider at this time: Yes The last office visit in the department: 07/2024 Does the patient have a future office visit with this provider/department: Yes Requested Prescriptions Pending Prescriptions Disp Refills lisinopril (ZESTRIL) 40 mg tablet 90 tablet Sig: Take 0.5 tablets by mouth two times a day. hydroCHLOROthiazide 12.5 mg capsule 90 capsule 1 Sig: Take 1 capsule by mouth once daily. Sol Lowery MA December 15, 2024 2:39 PM * Telephone Encounter - Margaret Ferrera - 12/15/2024 1:27 PM EST Prescription Refill Information The patient has been identified by name and date of : Yes Caregiver verified no other encounters exist for this prescription request: Yes Caregiver confirmed with patient/requestor that no other refills are due, in the near future, with this provider at this time: Yes The last office visit in the department: Does the patient have a future office visit with this provider/department: Yes Requested Prescriptions Pending Prescriptions Disp Refills lisinopril (ZESTRIL) 40 mg tablet 90 tablet Sig: Take 0.5 tablets by mouth two times a day. hydroCHLOROthiazide 12.5 mg capsule 90 capsule 1 Sig: Take 1 capsule by mouth once daily. Margaret Allan December 15, 2024 1:28 PM documented in this encounterRegency [facility]03-03-2025 Telephone encounter Note * Telephone Encounter - Margaret Ferrera - 12/15/2024 1:27 PM EST Prescription Refill Information The patient has been identified by name and date of : Yes Caregiver verified no other encounters exist for this prescription request: Yes Caregiver confirmed with patient/requestor that no other refills are due, in the near future, with this provider at this time: Yes The last office visit in the department: Does the patient have a future office visit with this provider/department: Yes Requested Prescriptions Pending Prescriptions Disp Refills lisinopril (ZESTRIL) 40 mg tablet 90 tablet Sig: Take 0.5 tablets by mouth two times a day. hydroCHLOROthiazide 12.5 mg capsule 90 capsule 1 Sig: Take 1 capsule by mouth once daily. Margaret Allan December 15, 2024 1:28 PM [facility]12-23-2024 Telephone encounter Note* Telephone Encounter - Sol Lowery MA - 10/06/2024 12:03 PM EST Prescription Refill Information The patient has been identified by name and date of : Yes Caregiver verified no other encounters exist for this prescription request: Yes Caregiver confirmed with patient/requestor that no other refills are due, in the near future, with this provider at this time: Yes The last office visit in the department: Does the patient have a future office visit with this provider/department: Yes 01/2025 Requested Prescriptions Pending Prescriptions Disp Refills Potassium Chloride (KLOR-CON 8) 8 mEq tablet 180 tablet 1 Sig: Take 1 tablet by mouth two times a day. Sol Lowery MA October 06, 2024 12:03 PM [facility] Miscellaneous Notes* Telephone Encounter - Sol Lowery MA - 10/06/2024 12:03 PM EST Prescription Refill Information The patient has been identified by name and date of : Yes Caregiver verified no other encounters exist for this prescription request: Yes Caregiver confirmed with patient/requestor that no other refills are due, in the near future, with this provider at this time: Yes The last office visit in the department: Does the patient have a future office visit with this provider/department: Yes 01/2025 Requested Prescriptions Pending Prescriptions Disp Refills Potassium Chloride (KLOR-CON 8) 8 mEq tablet 180 tablet 1 Sig: Take 1 tablet by mouth two times a day. Sol Lowery MA October 06, 2024 12:03 PM * Telephone Encounter - Johanna Aguirre - 10/06/2024 11:58 AM EST Prescription Refill Information The patient has been identified by name and date of : Yes Caregiver verified no other encounters exist for this prescription request: Yes Caregiver confirmed with patient/requestor that no other refills are due, in the near future, with this provider at this time: Yes The last office visit in the department: 09/22/2024 Does the patient have a future office visit with this provider/department: Yes Requested Prescriptions Pending Prescriptions Disp Refills Potassium Chloride (KLOR-CON 8) 8 mEq tablet 180 tablet 1 Sig: Take 1 tablet by mouth two times a day. [facility], 2024 11:59 AM documented in this encounterReg[facility]24 Telephone encounter Note * Telephone Encounter - Johanna Aguirre - 10/06/2024 11:58 AM EST Prescription Refill Information The patient has been identified by name and date of : Yes Caregiver verified no other encounters exist for this prescription request: Yes Caregiver confirmed with patient/requestor that no other refills are due, in the near future, with this provider at this time: Yes The last office visit in the department: 09/22/2024 Does the patient have a future office visit with this provider/department: Yes Requested Prescriptions Pending Prescriptions Disp Refills Potassium Chloride (KLOR-CON 8) 8 mEq tablet 180 tablet 1 Sig: Take 1 tablet by mouth two times a day. Johanna [facility] October 06, 2024 11:59 AM [facility]12-17-2024 Telephone encounter Note* Telephone Encounter - Sol Lowery MA - 09/30/2024 11:02 AM EST Patient notified. Sol Lowery MA [facility]12-17-2024 Miscellaneous Notes* Telephone Encounter - Sol Lowery MA - 09/30/2024 11:02 AM EST Patient notified. Sol Lowery MA * Telephone Encounter - Fabian Mcmullen MD - 09/30/2024 10:19 AM EST Let patient know what she is taking is good. * Telephone Encounter - Corrie Koroma RN - 09/29/2024 4:52 PM EST Patient notified of results and provider's instructions. Patient verbalizes understanding. Provider had recommended that patient stop her vitamin D previously due to vitamin D levels being elevated. Patient has been taking Nature Made brand of Calcium with Vitamin D3 600 mg with 400 international unit(s) of Vitamin D3. Patient asking if this is ok? Patient also has been taking the Centrum multiple that has 1,000 international unit(s) of vitamin D. Patient asking if taking the multiple and calcium if that is enough vitamin D? Corrie Koroma RN * Telephone Encounter - Fabian Mcmullen MD - 09/29/2024 4:19 PM EST Let patient know her bone strength study shows improvement. Cont the fosamax. Also make sure she istrying to get 2,000 international unit(s) 's of Vit D a day, Calcium 600-800 mg twice a day and walking for exercise. documented in this encounterRegency Hospital [facility]12-17-2024 NoteHNO ID: [id number] Author: KATIE CHAUDHARI APRN.[facility] Service: ? Author Type: Nurse Practitioner Type: Progress Notes Filed: 09/30/2024 10:32 Note Text: Chief Complaint Patient presents with: Cough HPI Laurence Koroma is a 73 year old female who presents here today for Above Complaints.. Patient presents for cough, sore throat, congestion x5 days. Patient reports she is feeling better, cough and sore throat continue. Taking coricidin, flonase, and mucinex along with salt water gargles. Past medical history, appointments, medications, allergies reviewed. [...] both carotid arteries (HCC) 08/03/2022 US 07/2022 LAOL (generalized anxiety disorder) 12/29/2020 History of Clostridium difficile colitis 11/20/2023 Due to antibiotics. May need Vanco at same time as antibiotics to prevent recurrence. Would do Vanco 125 mg a day while on an antibiotic. Insomnia 11/29/2016 Lactose intolerance Lactose intolerance Mild [...] on File Prior to Visit Medication Sig zolpidem (AMBIEN) 10 mg Take 1 tablet by mouth at bedtime as needed for up to 180 days. FOR INSOMNIA lisinopril (ZESTRIL) 40 mg tablet Take 0.5 tablets by mouth two times a day. multivit,iron,minerals/lutein (CENTRUM SILVER ULTRA WOMEN'S ORAL) Take by mouth. Take one tablet daily hydroCHLOROthiazide 12.5 mg capsule Take 1 capsule by mouth once daily. fluticasone (FLONASE) 50 mcg/actuation nasal spray Use 2 Sprays in each nostril once daily. Rinse mouth after use. Potassium Chloride (KLOR-CON 8) 8 mEq tablet Take 1 tablet by mouth two times a day. alendronate (FOSAMAX) 70 mg tablet Take 1 tablet by mouth one time a week. In AM with cup of water on empty stomach. Nothing else by mouth and stay upright for 30 min. L.acid/L.casei/B.bif/B.yevgeniy/FOS (PROBIOTIC BLEND ORAL) Take by mouth. acyclovir (ZOVIRAX) 800 mg tablet 1 tablet three times daily. (Patient taking differently: 800 mg as needed.) aspirin, enteric coated (ASPIRIN, ENTERIC COATED) 81 mg EC tablet Take 1 tablet by mouth once daily. loratadine (CLARITIN) 10 mg tablet Take 1 tablet by mouth once daily. No current facility-administered medications on file prior to visit. Social History Social History Tobacco Use Smoking status: Never Smokeless tobacco: Never Vaping Use Vaping status: Never Used Substance Use Topics Alcohol use: No Drug use: No Review of Symptoms REVIEW OF SYSTEMS SEE HPI EXAM: BP 135/71 Pulse 90 Resp 14 Wt 45.4 kg (100 lb) SpO2 99% BMI 20.20 kg/m? General Appearance: Well appearing, alert, in no acute distress, well-hydrated, well nourished.. Nose/Sinuses: Nares normal, septum midline, mucosa normal, no drainage or sinus tenderness. Oropharynx: Lips, mucosa, and tongue normal, teeth and gums normal, oropharynx normal. Neck: Supple, no adenopathy; thyroid symmetric, normal size, no bruits. Lungs: Lungs clear to auscultation. No wheezing, rhonchi, rales.. Heart: RRR without murmur, gallop, or rubs. No ectopy. Health Maintenan (more content not included)...[facility] 09-30-2024 History of Present illness Narrative* Katei Chaudhari APRN.[facility] - 09/30/2024 10:28 AM EST Chief Complaint Patient presents with: Cough HPI Laurence Koroma is a 73 year old female who presents here today for Above Complaints.. Patient presents for cough, sore throat, congestion x5 days. Patient reports she is feeling better,cough and sore throat continue. Taking coricidin, flonase, and mucinex along with salt water gargles. Past medical history, appointments, medications, allergies reviewed. [...] US 07/2022 LALO (generalized anxiety disorder) 12/29/2020 History of Clostridium difficile colitis 11/20/2023 Due to antibiotics. May need Vanco at same time as antibiotics to prevent recurrence. Would do Vanco 125 mg a day while on an antibiotic. Insomnia 11/29/2016 Lactose intolerance Lactose intolerance Mild [...] on File Prior to Visit Medication Sig zolpidem (AMBIEN) 10 mg Take 1 tablet by mouth at bedtime as needed for up to 180 days. FOR INSOMNIA lisinopril (ZESTRIL) 40 mg tablet Take 0.5 tablets by mouth two times a day. multivit,iron,minerals/lutein (CENTRUM SILVER ULTRA WOMEN'S ORAL) Take by mouth. Take one tablet daily hydroCHLOROthiazide 12.5 mg capsule Take 1 capsule by mouth once daily. fluticasone (FLONASE) 50 mcg/actuation nasal spray Use 2 Sprays in each nostril once daily. Rinse mouth after use. Potassium Chloride (KLOR-CON 8) 8 mEq tablet Take 1 tablet by mouth two times a day. alendronate (FOSAMAX) 70 mg tablet Take 1 tablet by mouth one time a week. In AM with cup of water on empty stomach. Nothing else by mouth and stay upright for 30 min. L.acid/L.casei/B.bif/B.yevgeniy/FOS (PROBIOTIC BLEND ORAL) Take by mouth. acyclovir (ZOVIRAX) 800 mg tablet 1 tablet three times daily. (Patient taking differently: 800 mg as needed.) aspirin, enteric coated (ASPIRIN, ENTERIC COATED) 81 mg EC tablet Take 1 tablet by mouth once daily. loratadine (CLARITIN) 10 mg tablet Take 1 tablet by mouth once daily. No current facility-administered medications on file prior to visit. Social History Social History Tobacco Use Smoking status: Never Smokeless tobacco: Never Vaping Use Vaping status: Never Used Substance Use Topics Alcohol use: No Drug use: No Review of Symptoms REVIEW OF SYSTEMS SEE HPI EXAM: BP 135/71 Pulse 90 Resp 14 Wt 45.4 kg (100 lb) SpO2 99% BMI 20.20 kg/m General Appearance: Well appearing, alert, in no acute distress, well-hydrated, well nourished.. Nose/Sinuses: Nares normal, septum midline, mucosa normal, no drainage or sinus tenderness. Oropharynx: Lips, mucosa, and tongue normal, teeth and gums normal, oropharynx normal. Neck: Supple, no adenopathy; thyroid symmetric, normal size, no bruits. Lungs: Lungs clear to auscultation. No wheezing, rhonchi, rales.. Heart: RRR without murmur, gallop, or rubs. No ectopy. Health Maintenance List DTaP,Tdap,Td Vaccine(2 - Td or Tdap) due on 10/31/2022 RSV Vaccine(1 - 1-dose 75+ series) Never done Depression Screening due on 08/08/2025 Annual PCP Team Chronic Disease Visit due on 09/22/2025 BP Controlled (<130/80) due on 09/22/2025 Colorectal Cancer Screening due on 11/24/2025 Bone Density Screening due on 09/26/2026 Diabetes Screening due on 07/30/2027 Lipid Screening due on 07/30/2029 Advance Directive Discussion Completed Shingrix Vaccine Completed Pneumococcal Vaccine: 50+ Completed Mammogram Screening Discontinued Influenza Vaccine Discontinued Hepatitis C Screening Discontinued Covid-19 Vaccine Discontinued ASSESSMENT/PLAN: 1. URI, acute - ICD9: 465.9, ICD10: J06.9 - Discussed viral etiology and rationale for treatment. - Symptomatic treatment with prn analgesia - Supportive care with fluids and rest - The patient may also use OTC decongestants prn, OTC cough and cold meds as needed, and warm salt water gargles, throat lozenges and/or OTC throat spray as needed. - Follow up in 3-5 days if symptoms persist or sooner if worsening of symptoms Katie Chaudhari APRN.[employer] documented in this encounterRegency Hospital [facility]12-17-2024 Telephone encounter Note * Telephone Encounter - Fabian Mcmullen MD - 09/30/2024 10:19 AM EST Let patient know what she is taking is good. [facility]12-16-2024 Telephone encounter Note* Telephone Encounter - Corrie Koroma RN - 09/29/2024 4:52 PM EST Patient notified of results and provider's instructions. Patient verbalizes understanding. Provider had recommended that patient stop her vitamin D previously due to vitamin D levels being elevated. Patient has been taking Nature Made brand of Calcium with Vitamin D3 600 mg with 400 international unit(s) of Vitamin D3. Patient asking if this is ok? Patient also has been taking the Centrum multiple that has 1,000 international unit(s) of vitamin D. Patient asking if taking the multiple and calcium if that is enough vitamin D? Corrie Koroma RN [facility]12-16-2024 Telephone encounter Note* Telephone Encounter - Fabian Mcmullen MD - 09/29/2024 4:19 PM EST Let patient know her bone strength study shows improvement. Cont the fosamax. Also make sure she istrying to get 2,000 international unit(s) 's of Vit D a day, Calcium 600-800 mg twice a day and walking for exercise. [facility]12-16-2024 Telephone encounter Note* Telephone Encounter - Frank Sharpe LPN - 09/29/2024 3:37 PM EST Pt calling to et an apt to be seen. PT started with cough and sore throat Sunday09-26-24. Pt losing her voice. Pt denies fever. COVID tested negative. Pt treating symptoms with OTC medications and gargling with salt water. Pt thinks she may be getting little better. Pt will be going to visiting elderly relatives this weekend and does not want to get anyone sick. Pt declining to come in today andrequesting early apt tomorrow 09-30-24. Pt booked for apt 09-30-24 with provider/team. Frank Sharpe LPN [facility]12-16-2024 Miscellaneous Notes* Telephone Encounter - Frank Sharpe LPN - 09/29/2024 3:37 PM EST Pt calling to et an apt to be seen. PT started with cough and sore throat Sunday09-26-24. Pt losing her voice. Pt denies fever. COVID tested negative. Pt treating symptoms with OTC medications and gargling with salt water. Pt thinks she may be getting little better. Pt will be going to visiting elderly relatives this weekend and does not want to get anyone sick. Pt declining to come in today andrequesting early apt tomorrow 09-30-24. Pt booked for apt 09-30-24 with provider/team. Frank Sharpe LPN documented in this encounterRegency Hospital [facility]12-13-2024 History of Present illness Narrative* Mehnaz Alfonso RT(R) - 09/26/2024 1:05 PM EST Radiology Service Progress Note PATIENT NAME: Laurence Koroma DATE OF SERVICE: September 26, 2024 TIME: 12:59 PM PATIENT IDENTITY VERIFICATION COMPLETED USING TWO (2) IDENTIFIERS: Name and Date of confirmedby patient verbally. FALL SCREENING: Has the patient had 2 falls in the last year or 1 fall with injury or currently using an Ambulatory Assistive Device (Walker, Cane, Wheelchair, Crutches, etc.)? No PATIENT GENDER DATA: Female. status: : No status: NO. PATIENT RELEVANT IMPLANT DATA REVIEWED: Not Applicable PATIENT PRESENTS WITH AN IMPLANTABLE OR ATTACHED ROLLING MACHINE OPERATOR AUTOMATIC: No RADIOLOGY DEPARTMENT: Bone Density PERIPHERAL IV DATA: Not applicable SIGNED BY: RT Bijal(Debbie) September 26, 2024 12:59 PM documented in this encounterRegency Hospital [facility]12-13-2024 NoteHNO ID: [id number] Author: MEHNAZ ALFONSO RT(Debbie) Service: ? Author Type: Technologist Type: Progress Notes Filed: 09/26/2024 13:08 Note Text: Radiology Service Progress Note PATIENT NAME: Laurence Koroma DATE OF SERVICE: September 26, 2024 TIME: 12:59 PM PATIENT IDENTITY VERIFICATION COMPLETED USING TWO (2) IDENTIFIERS: Name and Date of confirmed by patient verbally. FALL SCREENING: Has the patient had 2 falls in the last year or 1 fall with injury or currently using an Ambulatory Assistive Device (Walker, Cane, Wheelchair, Crutches, etc.)? No PATIENT GENDER DATA: Female. status: : No status: NO. PATIENT RELEVANT IMPLANT DATA REVIEWED: Not Applicable PATIENT PRESENTS WITH AN IMPLANTABLE OR ATTACHED ROLLING MACHINE OPERATOR AUTOMATIC: No RADIOLOGY DEPARTMENT: Bone Density PERIPHERAL IV DATA: Not applicable SIGNED BY: RT Bijal(R) September 26, 2024 12:59 [facility]12-09-2024 NoteHNO ID: [id number] Author: CONSTANCE KLEIN PA-C Service: ? Author Type: Physician Social Media Project Manager Type: Progress Notes Filed: 09/22/2024 12:03 Note Text: Chief Complaint Patient presents with: Follow Up: Blood presuure HPI Laurence Koroma is a 73 year old female who presents here today for BP recheck. At last visit we had patient change the timing on her BP medications. She does have overall better readings. Mostly 120-130s/60-70s. She still has occasional high bp of 150s/70s. No concerns Past medical history, appointments, medications, allergies reviewed. [...] US 07/2022 LALO (generalized anxiety disorder) 12/29/2020 History of Clostridium difficile colitis 11/20/2023 Due to antibiotics. May need Vanco at same time as antibiotics to prevent recurrence. Would do Vanco 125 mg a day while on an antibiotic. Insomnia 11/29/2016 Lactose intolerance Lactose intolerance Mild [...] on File Prior to Visit Medication Sig zolpidem (AMBIEN) 10 mg Take 1 tablet by mouth at bedtime as needed for up to 180 days. FOR INSOMNIA lisinopril (ZESTRIL) 40 mg tablet Take 0.5 tablets by mouth two times a day. multivit,iron,minerals/lutein (CENTRUM SILVER ULTRA WOMEN'S ORAL) Take by mouth. Take one tablet daily hydroCHLOROthiazide 12.5 mg capsule Take 1 capsule by mouth once daily. fluticasone (FLONASE) 50 mcg/actuation nasal spray Use 2 Sprays in each nostril once daily. Rinse mouth after use. Potassium Chloride (KLOR-CON 8) 8 mEq tablet Take 1 tablet by mouth two times a day. alendronate (FOSAMAX) 70 mg tablet Take 1 tablet by mouth one time a week. In AM with cup of water on empty stomach. Nothing else by mouth and stay upright for 30 min. L.acid/L.casei/B.bif/B.yevgeniy/FOS (PROBIOTIC BLEND ORAL) Take by mouth. acyclovir (ZOVIRAX) 800 mg tablet 1 tablet three times daily. (Patient taking differently: 800 mg as needed.) aspirin, enteric coated (ASPIRIN, ENTERIC COATED) 81 mg EC tablet Take 1 tablet by mouth once daily. loratadine (CLARITIN) 10 mg tablet Take 1 tablet by mouth once daily. No current facility-administered medications on file prior to visit. Social History Social History Tobacco Use Smoking status: Never Smokeless tobacco: Never Vaping Use Vaping status: Never Used Substance Use Topics Alcohol use: No Drug use: No Review of Symptoms REVIEW OF SYSTEMS See hpi EXAM: BP 127/70 (BP Site: Left Arm, BP Position: Sitting, BP Cuff Size: Regular Adult) Pulse 81 Temp 36.7 ?C (98 ?F) Resp 16 Wt 45.8 kg (101 lb) SpO2 96% BMI 20.40 kg/m? General Appearance: Well appearing, alert, in no acute distress, well-hydrated, well nourished.. Health Maintenance List DTaP,Tdap,Td Vaccine(2 - Td or Tdap) due on 10/31/2022 RSV Vaccine(1 - 1-dose 75+ series) Never done Bone Density Screening due on 09/04/2024 Depression Screening due on 08/08/2025 BP Controlled (<130/80) due on 09/08/2025 Annual PCP Team Chronic Disease Visit due on (more content not included)... [facility]12-09-2024 History of Present illness Narrative* Constance Klein PA-C - 09/22/2024 11:39 AM EST Chief Complaint Patient presents with: Follow Up: Blood presuure HPI Laurence Koroma is a 73 year old female who presents here today for BP recheck. At last visit we had patient change the timing on her BP medications. She does have overall better readings. Mostly 120-130s/60-70s. She still has occasional high bp of 150s/70s. No concerns Past medical history, appointments, medications, allergies reviewed. [...] US 07/2022 LALO (generalized anxiety disorder) 12/29/2020 History of Clostridium difficile colitis 11/20/2023 Due to antibiotics. May need Vanco at same time as antibiotics to prevent recurrence. Would do Vanco 125 mg a day while on an antibiotic. Insomnia 11/29/2016 Lactose intolerance Lactose intolerance Mild [...] on File Prior to Visit Medication Sig zolpidem (AMBIEN) 10 mg Take 1 tablet by mouth at bedtime as needed for up to 180 days. FOR INSOMNIA lisinopril (ZESTRIL) 40 mg tablet Take 0.5 tablets by mouth two times a day. multivit,iron,minerals/lutein (CENTRUM SILVER ULTRA WOMEN'S ORAL) Take by mouth. Take one tablet daily hydroCHLOROthiazide 12.5 mg capsule Take 1 capsule by mouth once daily. fluticasone (FLONASE) 50 mcg/actuation nasal spray Use 2 Sprays in each nostril once daily. Rinse mouth after use. Potassium Chloride (KLOR-CON 8) 8 mEq tablet Take 1 tablet by mouth two times a day. alendronate (FOSAMAX) 70 mg tablet Take 1 tablet by mouth one time a week. In AM with cup of water on empty stomach. Nothing else by mouth and stay upright for 30 min. L.acid/L.casei/B.bif/B.yevgeniy/FOS (PROBIOTIC BLEND ORAL) Take by mouth. acyclovir (ZOVIRAX) 800 mg tablet 1 tablet three times daily. (Patient taking differently: 800 mg as needed.) aspirin, enteric coated (ASPIRIN, ENTERIC COATED) 81 mg EC tablet Take 1 tablet by mouth once daily. loratadine (CLARITIN) 10 mg tablet Take 1 tablet by mouth once daily. No current facility-administered medications on file prior to visit. Social History Social History Tobacco Use Smoking status: Never Smokeless tobacco: Never Vaping Use Vaping status: Never Used Substance Use Topics Alcohol use: No Drug use: No Review of Symptoms REVIEW OF SYSTEMS See hpi EXAM: BP 127/70 (BP Site: Left Arm, BP Position: Sitting, BP Cuff Size: Regular Adult) Pulse 81 Temp 36.7 C (98 F) Resp 16 Wt 45.8 kg (101 lb) SpO2 96% BMI 20.40 kg/m General Appearance: Well appearing, alert, in no acute distress, well-hydrated, well nourished.. Health Maintenance List DTaP,Tdap,Td Vaccine(2 - Td or Tdap) due on 10/31/2022 RSV Vaccine(1 - 1-dose 75+ series) Never done Bone Density Screening due on 09/04/2024 Depression Screening due on 08/08/2025 BP Controlled (<130/80) due on 09/08/2025 Annual PCP Team Chronic Disease Visit due on 09/22/2025 Colorectal Cancer Screening due on 11/24/2025 Diabetes Screening due on 07/30/2027 Lipid Screening due on 07/30/2029 Advance Directive Discussion Completed Shingrix Vaccine Completed Pneumococcal Vaccine: 65+ Completed Mammogram Screening Discontinued Influenza Vaccine Discontinued Hepatitis C Screening Discontinued Covid-19 Vaccine Discontinued Data reviewed ASSESSMENT/PLAN: 1. Essential hypertension, benign - ICD9: 401.1, ICD10: I10 - Improving control - Continue current medications - Recommend home blood pressure monitoring, to bring results to next visit - Encouraged sodium restriction, DASH or Mediterranean diet - Recommend regular aerobic exercise Constance Klein PA-C documented in this encounterRegency [facility]11-26-2024 Telephone encounter Note * Telephone Encounter - Sol Lowery MA - 09/09/2024 11:10 AM EST Patient notified and voiced understanding. Sol Lowery MA [facility]11-26-2024 Miscellaneous Notes* Telephone Encounter - Sol Lowery MA - 09/09/2024 11:10 AM EST Patient notified and voiced understanding. Sol Lowery MA * Telephone Encounter - Fabian Mcmullen MD - 09/09/2024 9:59 AM EST Let p[t know her liver functions are back to normal. Testing for Hepatitis A, B and C were all Neg. Her Vit D is better but still higher then we need it. Besides her Centrum Silver ad vise her to look at any other over the counter meds to see if they have Vit D in them and try to cut them out. documented in this encounterRegency Hospital [facility]11-26-2024 Telephone encounter Note * Telephone Encounter - Fabian Mcmullen MD - 09/09/2024 9:59 AM EST Let p[t know her liver functions are back to normal. Testing for Hepatitis A, B and C were all Neg. Her Vit D is better but still higher then we need it. Besides her Centrum Silver ad vise her to look at any other over the counter meds to see if they have Vit D in them and try to cut them out. [facility]11-26-2024 Telephone encounter Note* Telephone Encounter - Fabian Mcmullen MD - 09/09/2024 9:57 AM EST The following approved medication requests have been transmitted electronically. Requested Prescriptions Signed Prescriptions Disp Refills zolpidem (AMBIEN) 10 mg 90 tablet 1 Sig: Take 1 tablet by mouth at bedtime as needed for up to 180 days. FOR INSOMNIA Authorizing Provider: FABIAN MCMULLEN MD PDMP website checked and validated. All prescriptions have been APPROPRIATELY filled. No suspiciousactivity was identified. 09/09/2024 by Fabian Mcmullen MD [facility]11-26-2024 Miscellaneous Notes* Telephone Encounter - Fabian Mcmullen MD - 09/09/2024 9:57 AM EST The following approved medication requests have been transmitted electronically. Requested Prescriptions Signed Prescriptions Disp Refills zolpidem (AMBIEN) 10 mg 90 tablet 1 Sig: Take 1 tablet by mouth at bedtime as needed for up to 180 days. FOR INSOMNIA Authorizing Provider: FABIAN MCMULLEN MD PDMP website checked and validated. All prescriptions have been APPROPRIATELY filled. No suspiciousactivity was identified. 09/09/2024 by Fabian Mcmullen MD * Telephone Encounter - Cristina Ware - 09/09/2024 9:42 AM EST Patient has been identified by name and date of : Yes, Patient phones for refill(s): Requested Prescriptions Pending Prescriptions Disp Refills zolpidem (AMBIEN) 10 mg 90 tablet 1 Sig: Take 1 tablet by mouth at bedtime as needed for up to 180 days. FOR INSOMNIA Date of last office visit in primary care: 09/08/2024 Date of next office visit in primary care: 09/22/2024 Please advise. Thank you. Cristina Ware. documented in this encounterRegency Hospital [facility]11-26-2024 Telephone encounter Note * Telephone Encounter - Cristina Ware - 09/09/2024 9:42 AM EST Patient has been identified by name and date of : Yes, Patient phones for refill(s): Requested Prescriptions Pending Prescriptions Disp Refills zolpidem (AMBIEN) 10 mg 90 tablet 1 Sig: Take 1 tablet by mouth at bedtime as needed for up to 180 days. FOR INSOMNIA Date of last office visit in primary care: 09/08/2024 Date of next office visit in primary care: 09/22/2024 Please advise. Thank you. Cristina Ware. [facility]11-25-2024 NoteHNO ID: [id number] Author: CONSTANCE KLEIN PA-C Service: ? Author Type: Physician Social Media Project Manager Type: Progress Notes Filed: 09/08/2024 12:03 Note Text: Chief Complaint Patient presents with: 2 wk BP check HPI Laurence Koroma is a 73 year old female who presents here today for Above Complaints.. 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 When she checks her BP around 11am it has been normal. Patient states that she typically takes her medication at 8am. No S/s of HTN. Past medical history, appointments, medications, allergies reviewed. [...] US 07/2022 LALO (generalized anxiety disorder) 12/29/2020 History of Clostridium difficile colitis 11/20/2023 Due to antibiotics. May need Vanco at same time as antibiotics to prevent recurrence. Would do Vanco 125 mg a day while on an antibiotic. Insomnia 11/29/2016 Lactose intolerance Lactose intolerance Mild [...] on File Prior to Visit Medication Sig multivit,iron,minerals/lutein (CENTRUM SILVER ULTRA WOMEN'S ORAL) Take by mouth. Take one tablet daily lisinopril (ZESTRIL) 40 mg tablet Take 1 tablet by mouth once daily. hydroCHLOROthiazide 12.5 mg capsule Take 1 capsule by mouth once daily. fluticasone (FLONASE) 50 mcg/actuation nasal spray Use 2 Sprays in each nostril once daily. Rinse mouth after use. Potassium Chloride (KLOR-CON 8) 8 mEq tablet Take 1 tablet by mouth two times a day. zolpidem (AMBIEN) 10 mg Take 1 tablet by mouth at bedtime as needed for up to 180 days. FOR INSOMNIA alendronate (FOSAMAX) 70 mg tablet Take 1 tablet by mouth one time a week. In AM with cup of water on empty stomach. Nothing else by mouth and stay upright for 30 min. L.acid/L.casei/B.bif/B.yevgeniy/FOS (PROBIOTIC BLEND ORAL) Take by mouth. acyclovir (ZOVIRAX) 800 mg tablet 1 tablet three times daily. (Patient taking differently: 800 mg as needed.) aspirin, enteric coated (ASPIRIN, ENTERIC COATED) 81 mg EC tablet Take 1 tablet by mouth once daily. loratadine (CLARITIN) 10 mg tablet Take 1 tablet by mouth once daily. No current facility-administered medications on file prior to visit. Social History Social History Tobacco Use Smoking status: Never Smokeless tobacco: Never Vaping Use Vaping status: Never Used Substance Use Topics Alcohol use: No Drug use: No Review of Symptoms REVIEW OF SYSTEMS GENERAL: No weight loss, malaise or fevers RESPIRATORY: Negative for cough, hemoptysis, wheezing, COPD, dyspnea or shortness of breath CARDIOVASCULAR: Negative for chest pain, leg swelling, hypertension, CHF or palpitations EXAM: BP 118/69 Pulse 88 Temp 36.6 ?C (97.9 ?F) (Tympanic) Resp 16 Wt 45.4 kg (100 lb) SpO2 100% BMI 20.20 kg/m? General Appearance: Well appearing, alert, in no acute distress, well-hydrated, well nourished.. Health Maintenance List DTaP,Tdap,Td Vaccine(2 - Td or Tdap) due on 10/31/2022 RSV Vaccine(1 - (more content not included)...[facility] 09-08-2024 History of Present illness Narrative* Constance Klein PA-C - 09/08/2024 11:31 AM EST Chief Complaint Patient presents with: 2 wk BP check HPI Laurence Koroma is a 73 year old female who presents here today for Above Complaints.. 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 When she checks her BP around 11am it has been normal. Patient states that she typically takes her medication at 8am. No S/s of HTN. Past medical history, appointments, medications, allergies reviewed. [...] US 07/2022 LALO (generalized anxiety disorder) 12/29/2020 History of Clostridium difficile colitis 11/20/2023 Due to antibiotics. May need Vanco at same time as antibiotics to prevent recurrence. Would do Vanco 125 mg a day while on an antibiotic. Insomnia 11/29/2016 Lactose intolerance Lactose intolerance Mild [...] on File Prior to Visit Medication Sig multivit,iron,minerals/lutein (CENTRUM SILVER ULTRA WOMEN'S ORAL) Take by mouth. Take one tablet daily lisinopril (ZESTRIL) 40 mg tablet Take 1 tablet by mouth once daily. hydroCHLOROthiazide 12.5 mg capsule Take 1 capsule by mouth once daily. fluticasone (FLONASE) 50 mcg/actuation nasal spray Use 2 Sprays in each nostril once daily. Rinse mouth after use. Potassium Chloride (KLOR-CON 8) 8 mEq tablet Take 1 tablet by mouth two times a day. zolpidem (AMBIEN) 10 mg Take 1 tablet by mouth at bedtime as needed for up to 180 days. FOR INSOMNIA alendronate (FOSAMAX) 70 mg tablet Take 1 tablet by mouth one time a week. In AM with cup of water on empty stomach. Nothing else by mouth and stay upright for 30 min. L.acid/L.casei/B.bif/B.yevgeniy/FOS (PROBIOTIC BLEND ORAL) Take by mouth. acyclovir (ZOVIRAX) 800 mg tablet 1 tablet three times daily. (Patient taking differently: 800 mg as needed.) aspirin, enteric coated (ASPIRIN, ENTERIC COATED) 81 mg EC tablet Take 1 tablet by mouth once daily. loratadine (CLARITIN) 10 mg tablet Take 1 tablet by mouth once daily. No current facility-administered medications on file prior to visit. Social History Social History Tobacco Use Smoking status: Never Smokeless tobacco: Never Vaping Use Vaping status: Never Used Substance Use Topics Alcohol use: No Drug use: No Review of Symptoms REVIEW OF SYSTEMS GENERAL: No weight loss, malaise or fevers RESPIRATORY: Negative for cough, hemoptysis, wheezing, COPD, dyspnea or shortness of breath CARDIOVASCULAR: Negative for chest pain, leg swelling, hypertension, CHF or palpitations EXAM: BP 118/69 Pulse 88 Temp 36.6 C (97.9 F) (Tympanic) Resp 16 Wt 45.4 kg (100 lb) SpO2 100% BMI 20.20 kg/m General Appearance: Well appearing, alert, in no acute distress, well-hydrated, well nourished.. Health Maintenance List DTaP,Tdap,Td Vaccine(2 - Td or Tdap) due on 10/31/2022 RSV Vaccine(1 - 1-dose 75+ series) Never done Bone Density Screening due on 09/04/2024 Depression Screening due on 08/08/2025 Annual PCP Team Chronic Disease Visit due on 08/25/2025 BP Controlled (<130/80) due on 08/25/2025 Colorectal Cancer Screening due on 11/24/2025 Diabetes Screening due on 07/30/2027 Lipid Screening due on 07/30/2029 Advance Directive Discussion Completed Shingrix Vaccine Completed Pneumococcal Vaccine: 65+ Completed Mammogram Screening Discontinued Influenza Vaccine Discontinued Hepatitis C Screening Discontinued Covid-19 Vaccine Discontinued Data reviewed ASSESSMENT/PLAN: 1. Primary hypertension - ICD9: 401.9, ICD10: I10 Home readings are variable. But it appears that she is not getting a full 24hrs from her medications. Will see if splitting the dose into 20mg twice a day gives us better coverage. Patient agreeable to this plan. Recheck in 2 weeks. - Recommend home blood pressure monitoring, to bring results to next visit - Encouraged sodium restriction, DASH or Mediterranean diet - Recommend regular aerobic exercise - LISINOPRIL 40 MG TABLET Constance Klein PA-C [facility]24 NoteHNO ID: [id number] Author: CONSTANCE KLEIN PA-C Service: ? Author Type: Physician Social Media Project Manager Type: Progress Notes Filed: 08/25/2024 12:17 Note Text: Chief Complaint Patient presents with: Follow Up: Blood pressure HPI Laurence Koroma is a 73 year old female who presents here today for BP recheck. Patient has been checking BP at home. Ranges from 130-150/60s. No s/s of high blood pressure. Past medical history, appointments, medications, allergies [...] US 07/2022 LALO (generalized anxiety disorder) 12/29/2020 History of Clostridium difficile colitis 11/20/2023 Due to antibiotics. May need Vanco at same time as antibiotics to prevent recurrence. Would do Vanco 125 mg a day while on an antibiotic. Insomnia 11/29/2016 Lactose intolerance Lactose intolerance Mild [...] on File Prior to Visit Medication Sig lisinopril (ZESTRIL) 40 mg tablet Take 1 tablet by mouth once daily. hydroCHLOROthiazide 12.5 mg capsule Take 1 capsule by mouth once daily. Potassium Chloride (KLOR-CON 8) 8 mEq tablet Take 1 tablet by mouth two times a day. multivit,iron,minerals/lutein (CENTRUM SILVER ULTRA WOMEN'S ORAL) Take by mouth. Take one tablet daily fluticasone (FLONASE) 50 mcg/actuation nasal spray Use 2 Sprays in each nostril once daily. Rinse mouth after use. zolpidem (AMBIEN) 10 mg Take 1 tablet by mouth at bedtime as needed for up to 180 days. FOR INSOMNIA alendronate (FOSAMAX) 70 mg tablet Take 1 tablet by mouth one time a week. In AM with cup of water on empty stomach. Nothing else by mouth and stay upright for 30 min. L.acid/L.casei/B.bif/B.yevgeniy/FOS (PROBIOTIC BLEND ORAL) Take by mouth. acyclovir (ZOVIRAX) 800 mg tablet 1 tablet three times daily. (Patient taking differently: 800 mg as needed.) aspirin, enteric coated (ASPIRIN, ENTERIC COATED) 81 mg EC tablet Take 1 tablet by mouth once daily. loratadine (CLARITIN) 10 mg tablet Take 1 tablet by mouth once daily. No current facility-administered medications on file prior to visit. Social History Social History Tobacco Use Smoking status: Never Smokeless tobacco: Never Vaping Use Vaping status: Never Used Substance Use Topics Alcohol use: No Drug use: No Review of Symptoms REVIEW OF SYSTEMS Denies chest pain and shortness of breath. EXAM: BP 118/62 Pulse 97 Wt 45.5 kg (100 lb 3.2 oz) SpO2 100% BMI 20.24 kg/m? General Appearance: Well appearing, alert, in no acute distress, well-hydrated, well nourished.. Health Maintenance List BP Controlled (<130/80) Never done DTaP,Tdap,Td Vaccine(2 - Td or Tdap) due on 10/31/2022 RSV Vaccine(1 - 1-dose 75+ series) Never done Bone Density Screening due on 09/04/2024 Depression Screening due on 08/08/2025 Annual PCP Team Chronic Disease Visit due on 08/25/2025 Colorectal Cancer Screening due on 11/24/2025 Diabetes Screening due on 07/30/2027 Lipid Screening due on 07/30/2029 Advance Directive Discussion Completed [place] (more content not included)...[facility]11-11-2024 History of Present illness Narrative* Constance Klein PA-C - 08/25/2024 11:39 AM EST Chief Complaint Patient presents with: Follow Up: Blood pressure HPI Laurence Koroma is a 73 year old female who presents here today for BP recheck. Patient has been checking BP at home. Ranges from 130-150/60s. No s/s of high blood pressure. Past medical history, appointments, medications, allergies [...] US 07/2022 LALO (generalized anxiety disorder) 12/29/2020 History of Clostridium difficile colitis 11/20/2023 Due to antibiotics. May need Vanco at same time as antibiotics to prevent recurrence. Would do Vanco 125 mg a day while on an antibiotic. Insomnia 11/29/2016 Lactose intolerance Lactose intolerance Mild [...] on File Prior to Visit Medication Sig lisinopril (ZESTRIL) 40 mg tablet Take 1 tablet by mouth once daily. hydroCHLOROthiazide 12.5 mg capsule Take 1 capsule by mouth once daily. Potassium Chloride (KLOR-CON 8) 8 mEq tablet Take 1 tablet by mouth two times a day. multivit,iron,minerals/lutein (CENTRUM SILVER ULTRA WOMEN'S ORAL) Take by mouth. Take one tablet daily fluticasone (FLONASE) 50 mcg/actuation nasal spray Use 2 Sprays in each nostril once daily. Rinse mouth after use. zolpidem (AMBIEN) 10 mg Take 1 tablet by mouth at bedtime as needed for up to 180 days. FOR INSOMNIA alendronate (FOSAMAX) 70 mg tablet Take 1 tablet by mouth one time a week. In AM with cup of water on empty stomach. Nothing else by mouth and stay upright for 30 min. L.acid/L.casei/B.bif/B.yevgeniy/FOS (PROBIOTIC BLEND ORAL) Take by mouth. acyclovir (ZOVIRAX) 800 mg tablet 1 tablet three times daily. (Patient taking differently: 800 mg as needed.) aspirin, enteric coated (ASPIRIN, ENTERIC COATED) 81 mg EC tablet Take 1 tablet by mouth once daily. loratadine (CLARITIN) 10 mg tablet Take 1 tablet by mouth once daily. No current facility-administered medications on file prior to visit. Social History Social History Tobacco Use Smoking status: Never Smokeless tobacco: Never Vaping Use Vaping status: Never Used Substance Use Topics Alcohol use: No Drug use: No Review of Symptoms REVIEW OF SYSTEMS Denies chest pain and shortness of breath. EXAM: BP 118/62 Pulse 97 Wt 45.5 kg (100 lb 3.2 oz) SpO2 100% BMI 20.24 kg/m General Appearance: Well appearing, alert, in no acute distress, well-hydrated, well nourished.. Health Maintenance List BP Controlled (<130/80) Never done DTaP,Tdap,Td Vaccine(2 - Td or Tdap) due on 10/31/2022 RSV Vaccine(1 - 1-dose 75+ series) Never done Bone Density Screening due on 09/04/2024 Depression Screening due on 08/08/2025 Annual PCP Team Chronic Disease Visit due on 08/25/2025 Colorectal Cancer Screening due on 11/24/2025 Diabetes Screening due on 07/30/2027 Lipid Screening due on 07/30/2029 Advance Directive Discussion Completed Shingrix Vaccine Completed Pneumococcal Vaccine: 65+ Completed Mammogram Screening Discontinued Influenza Vaccine Discontinued Hepatitis C Screening Discontinued Covid-19 Vaccine Discontinued Data reviewed ASSESSMENT/PLAN: 1. Essential hypertension, benign - ICD9: 401.1, ICD10: I10 Today's reading is normal. Systolic Home readings are still elevated at times. But diastolic okay. I would like patient to change up timing of BP readings each day so we can see if there is a trend. Follow up in 2 weeks. Constance Klein PA-C documented [facility] Nurse Note* Laurence Steele LPN - 08/25/2024 11:31 AM EST 08/25/2024: Home BP Cuff Validated. Home BP: 119/49 Office BP: 118/62 [facility]11-11-[facility] Nurse Note* Laurence Steele LPN - 08/25/2024 11:31 AM EST 08/25/2024: Home BP Cuff Validated. Home BP: 119/49 Office BP: 118/62 documented in this encounterReg[facility]10-25-2024 Nurse Note* Sol Lowery MA - 08/08/2024 1:13 PM EDT Aayush bp Average 164/68 171/69 165/65 162/67 163/70 169/67 172/69 Sol Lowery MA [facility]10-25-[facility] Nurse Note* Sol Lowery MA - 08/08/2024 1:13 PM EDT Aayush bp Average 164/68 171/69 165/65 162/67 163/70 169/67 172/69 Sol Lowery MA documented in this encounterReg[facility]10-25-2024 Instructions* Patient Instructions* Fabian Mcmullen MD - 08/08/2024 12:09 PM EDT Please get repeat Vit D and liver labs on or after 09/05/2024. Stop the extra Vit D since your getting a 1000 international unit(s) 's in you multi vit. Please get labs done on or after 01/23/2025 prior to your next visit. Screening schedule The following prevention plan is recommended: Depression Screening Never done BP Controlled (<130/80) Never done Advance Directive Discussion due on 10/15/2023 Covid-19 Vaccine() due on 06/15/2024 Bone Density Screening due on 09/04/2024 WHAT YOU CAN DO TO PREVENT FALLS Many falls can be prevented. By making some changes, you can lower your chances of falling. Four things YOU can do to prevent falls for you* and your caregiver 1. Begin a regular exercise program Exercise is one of the most important ways to lower your chances of falling. It makes you stronger and helps you feel better. Exercises that improve balance and coordination (like Zheng Chi) are the most helpful. Lack of exercise leads to weakness and increases your chances of falling. Ask your doctor or health care provider about the best type of exercise program for you. 2. Have your health care provider review your medicines Have your doctor or pharmacist review all the medicines you take, even [id number] medicines. As you get older, the way medicines work in your body can change. Some medicines, or combinations of medicines, can make you sleepy or dizzy andcan cause you to fall. 3. Have your vision checked Have your eyes checked by an eye doctor at least once a year. You may be wearing the wrong glasses or have a condition like glaucoma or cataracts that limits your vision. Poor vision can increase your chances of falling. 4. Make your home safer About half of all falls happen at home. To make your home safer: Remove things you can trip over (like papers, books, clothes, and shoes) from stairs and places where you walk. Remove small throw rugs or use double-sided tape to keep the rugs from slipping. Keep items you use often in cabinets you can reach easily without using a step stool. Have grab bars put in next to your toilet and in the tub or shower. Use non-slip mats in the bathtub and on shower floors. Improve the lighting in your home. As you get older, you need brighter lights to see well. Hang light-weight curtains or shades to reduce glare. Have handrails and lights put in on all staircases. Wear shoes both inside and outside the house. Avoid going barefoot or wearing slippers. For more information, contact: Centers for Disease Control and Prevention www.cdc.gov/injury * This information may not apply if you have certain medical conditions. documented in this encounterReg[facility]10-25-2024 NoteHNO ID: [id number] Author: FABIAN MCMULLEN MD Service: ? Author Type: Physician Type: Progress Notes Filed: 08/08/2024 13:19 Note Text: Laurence Koroma is a 73 year old female here for a Medicare wellness visit. Medicare Health Risk Assessment General Health Very good Exercise: Minutes/Day 0 min Exercise: Days/Week 0 days Alcohol: Daily Use Monthly or less Alcohol: Drinks/Day 1 or 2 Alcohol: 6 or more drinks Never Feel off balance No Concerns: Teeth/Dentures No Concerns: Sexual function No Troubled by feelings None of the above Frequency: Eating healthy diet Nearly every day ADLs requiring help None of the above Safety precautions in home/vehicle No Smoke, vape, chews tobacco No Difficulty hearing No Difficulty seeing No Current Providers Specialists: I have reviewed specialist-related care of the patient in the medical record. Current care team: Patient Care Team: Fabian Mcmullen MD as PCP - General (Family Medicine) Dr. Wells: Vascular GRANTS DIRECTOR Optho Medical/Family history review Reviewed and updated problem list, medical/surgical/family/social history, medications, and allergies. Opioid use review Opioid Medications (last 90 days) No data to display Anxiety/Depression screening PHQ-2 Score: 0 (Lower risk for depression) Recommendation: no further intervention at this time Cognitive screening Score: 5 Cognitive screening reviewed and No further action needed (score 3-5). Functional Observation Was the patient's Timed Up AND Go test unsteady or >= 12 seconds? No Advance Care Planning Patient did not wish or was not able to name a surrogate decision maker or provide an advance care plan Measurements BP 152/70 (BP Site: Right Arm, BP Position: Sitting, BP Cuff Size: Regular Adult) Pulse 72 Resp 16 Ht 149.9 cm (4' 11) Wt 45.8 kg (101 lb) BMI 20.40 kg/m? Vision Screening: Follows with optometry/ophthalmology Assessment/Plan Medicare annual wellness visit, subsequent (Z00.00) - Counseled on healthy diet and regular exercise - Fall avoidance information provided - Personalized prevention plan provided See HPI Chief Complaint Patient presents with: Medicare Wellness Exam HPI Laurence Koroma is a 73 year old female who presents here today for Chronic Medical Conditions. and Medicare Annual Visit. Patient with hx HTN, elevated A1c, LALO, insomnia, and those as below. Patient has josé luis doing ok. No new issues or concerns. Past medical history, appointments, medications, allergies reviewed. [...] US 07/2022 LALO (generalized anxiety disorder) 12/29/2020 History of Clostridium difficile colitis 11/20/2023 Due to antibiotics. May need Vanco at same time as antibiotics to prevent recurrence. Would do Vanco 125 mg a day while on an antibiotic. Insomnia 11/29/2016 Lactose intolerance Lactose intolerance Mild [...] on File Prior to Visit Medication Sig lisinopril (ZESTRIL) 40 mg tablet Take 1 tab (more content not included)... [facility]10-25-[facility] History of Present illness Narrative* Fabian Mcmullen MD - 08/08/2024 11:43 AM EDT Images from the original note were not included. Laurence Koroma is a 73 year old female here for a Medicare wellness visit. Medicare Health Risk Assessment General Health Very good Exercise: Minutes/Day 0 min Exercise: Days/Week 0 days Alcohol: Daily Use Monthly or less Alcohol: Drinks/Day 1 or 2 Alcohol: 6 or more drinks Never Feel off balance No Concerns: Teeth/Dentures No Concerns: Sexual function No Troubled by feelings None of the above Frequency: Eating healthy diet Nearly every day ADLs requiring help None of the above Safety precautions in home/vehicle No Smoke, vape, chews tobacco No Difficulty hearing No Difficulty seeing No Current Providers Specialists: I have reviewed specialist-related care of the patient in the medical record. Current care team: Patient Care Team: Fabian Mcmullen MD as PCP - General (Family Medicine) Dr. Wells: Vascular GRANTS DIRECTOR Optho Medical/Family history review Reviewed and updated problem list, medical/surgical/family/social history, medications, and allergies. Opioid use review Opioid Medications (last 90 days) No data to display Anxiety/Depression screening PHQ-2 Score: 0 (Lower risk for depression) Recommendation: no further intervention at this time Cognitive screening Score: 5 Cognitive screening reviewed and No further action needed (score 3-5). Functional Observation Was the patient's Timed Up & Go test unsteady or >= 12 seconds? No Advance Care Planning Patient did not wish or was not able to name a surrogate decision maker or provide an advance care plan Measurements BP 152/70 (BP Site: Right Arm, BP Position: Sitting, BP Cuff Size: Regular Adult) Pulse 72 Resp16 Ht 149.9 cm (4' 11) Wt 45.8 kg (101 lb) BMI 20.40 kg/m Vision Screening: Follows with optometry/ophthalmology Assessment/Plan Medicare annual wellness visit, subsequent (Z00.00) - Counseled on healthy diet and regular exercise - Fall avoidance information provided - Personalized prevention plan provided See HPI Chief Complaint Patient presents with: Medicare Wellness Exam HPI Laurence Koroma is a 73 year old female who presents here today for Chronic Medical Conditions. andMedicare Annual Visit. Patient with hx HTN, elevated A1c, LALO, insomnia, and those as below. Patient has josé luis doing ok. No new issues or concerns. Past medical history, appointments, medications, allergies reviewed. [...] US 07/2022 LALO (generalized anxiety disorder) 12/29/2020 History of Clostridium difficile colitis 11/20/2023 Due to antibiotics. May need Vanco at same time as antibiotics to prevent recurrence. Would do Vanco 125 mg a day while on an antibiotic. Insomnia 11/29/2016 Lactose intolerance Lactose intolerance Mild [...] on File Prior to Visit Medication Sig lisinopril (ZESTRIL) 40 mg tablet Take 1 tablet by mouth once daily. hydroCHLOROthiazide 12.5 mg capsule Take 1 capsule by mouth once daily. fluticasone (FLONASE) 50 mcg/actuation nasal spray Use 2 Sprays in each nostril once daily. Rinse mouth after use. Potassium Chloride (KLOR-CON 8) 8 mEq tablet Take 1 tablet by mouth two times a day. zolpidem (AMBIEN) 10 mg Take 1 tablet by mouth at bedtime as needed for up to 180 days. FOR INSOMNIA benzonatate (TESSALON PERLES) 100 mg capsule Take 2 capsules by mouth three times a day as needed. alendronate (FOSAMAX) 70 mg tablet Take 1 tablet by mouth one time a week. In AM with cup of water on empty stomach. Nothing else by mouth and stay upright for 30 min. L.acid/L.casei/B.bif/B.yevgeniy/FOS (PROBIOTIC BLEND ORAL) Take by mouth. albuterol HFA (PROAIR HFA) 90 mcg/actuation inhaler Inhale 2 Puffs as instructed every 6 hours as needed. (Patient not taking: Reported on 12/20/2023) acyclovir (ZOVIRAX) 800 mg tablet 1 tablet three times daily. (Patient taking differently: 800 mg as needed.) aspirin, enteric coated (ASPIRIN, ENTERIC COATED) 81 [...] Never Smokeless tobacco: Never Vaping Use Vaping status: Never Used Substance Use Topics Alcohol use: No Drug use: No Review of Symptoms REVIEW OF SYSTEMS GENERAL: No weight loss, malaise or fevers HEENT: Negative for frequent or significant headaches, No changes in hearing or vision, no nose bleeds or other nasal problems NECK: Negative for lumps, goiter, pain and significant neck swelling. Has pain from time to time. RESPIRATORY: Negative for cough, hemoptysis, wheezing, COPD, dyspnea or shortness of breath CARDIOVASCULAR: Negative for chest pain, leg swelling, hypertension, CHF or palpitations GI: No nausea, vomiting, or diarrhea, No heartburn or reflux symptoms, and no blood : No history of dysuria, frequency or blood MUSCULOSKELETAL: Negative for joint pain or swelling, back pain or muscle pain: see neck SKIN: Negative for lesions, rash, and itching PSYCH: Negative for sleep disturbance, mood disorder and recent psychosocial stressors. HEMATOLOGY/LYMPHOLOGY: Negative for prolonged bleeding, bruising easily or swollen nodes ENDOCRINE: Negative for cold or heat intolerance, polyuria, polydipsia and goiter NEURO: No history of headaches, syncope, paralysis, seizures or tremors EXAM: BP 152/70 (BP Site: Right Arm, BP Position: Sitting, BP Cuff Size: Regular Adult) Pulse 72 Resp16 Ht 149.9 cm (4' 11) Wt 45.8 kg (101 lb) BMI 20.40 kg/m BP 142/70 Pulse 72 Resp 16 Ht 149.9 cm (4' 11) Wt 45.8 kg (101 lb) BMI 20.40 kg/m BP 164/68 Pulse 72 Resp 16 Ht 149.9 cm (4' 11) Wt 45.8 kg (101 lb) BMI 20.40 kg/m Last 6 Encounter Wt Readings: Date: Wt: 08/08/2024 45.8 kg (101 lb) 04/28/2024 44.9 kg (99 lb) 02/07/2024 44.5 kg (98 lb) 12/20/2023 44.9 kg (99 lb) 11/16/2023 44 kg (97 lb) 11/08/2023 44.5 kg (98 lb) General Appearance: Well appearing, alert, in no acute distress, well-hydrated, well nourished. andThin. Skin: Skin color, texture, turgor normal, no [...] symmetric. Sensation to light touch and crainal nerves2-12 intact.. Health Maintenance List Depression Screening Never done BP Controlled (<130/80) Never done Advance Directive Discussion due on 10/15/2023 Covid-19 Vaccine( season) due on 06/15/2024 Bone Density Screening due on 09/04/2024 DTaP,Tdap,Td Vaccine(2 - Td or Tdap) due on 08/08/2024 RSV Vaccine(1 - 1-dose 75+ series) due on 08/08/2024 Annual PCP Team Chronic Disease Visit due on 04/28/2025 Colorectal Cancer Screening due on 11/24/2025 Diabetes Screening due on 07/30/2027 Lipid Screening due on 07/30/2029 Shingrix Vaccine Completed Pneumococcal Vaccine: 65+ Completed Mammogram Screening Discontinued Influenza Vaccine Discontinued Hepatitis C Screening Discontinued Data reviewed Latest Ref Rng 07/30/2023 01/30/2024 07/30/2024 WBC 3.70 - 11.00 k/uL 6.55 RBC 3.90 - 5.20 m/uL 3.95 Hemoglobin 11.5 - 15.5 g/dL 11.9 Hematocrit 36.0 - 46.0 % 36.9 MCV 80.0 - 100.0 fL 93.4 MCH 26.0 - 34.0 pg 30.1 MCHC 30.5 - 36.0 g/dL 32.2 RDW-CV 11.5 - 15.0 % 14.2 Platelet Count 150 - 400 k/uL 307 MPV 9.0 - 12.7 fL 10.4 Neut% % 51.1 Abs Neut (ANC) 1.45 - 7.50 k/uL 3.35 Lymph% % 38.2 Abs Lymph 1.00 - 4.00 k/uL 2.50 [place]% % 7.9 Abs [place] <0.87 k/uL 0.52 Eosin% % 2.0 Abs Eosin <0.46 k/uL 0.13 Baso% % 0.5 Abs Baso <0.11 k/uL 0.03 Immature Gran % % 0.3 IMMATURE GRANS (ABS) <0.10 k/uL <0.03 NRBC /100 WBC 0.0 Absolute nRBC <0.01 k/uL <0.01 DTYPE Auto Color Yellow Yellow Clarity Clear Clear Glucose, Urine Negative Negative Bilirubin, Urine Negative Negative Ketones, Urine Negative Trace ! Specific [place], Ur 1.005 - 1.030 1.020 Hemoglobin/Blood,Ur Negative Negative pH, Urine <8.5 5.5 Protein, Urine Negative Trace ! Urobilinogen 0.2-1.0 EU/dL 0.2 EU/dL Nitrites Negative Negative Leukest Negative Negative WBC, Urine 0-5 /HPF 0-5 /HPF RBC, Urine 0-2 /HPF 0-2 /HPF Bacteria Negative /HPF Negative Epithelial Cells /HPF None Seen Hyaline Cast 0 /LPF 4-10 /LPF ! Protein, Total 6.3 - 8.0 g/dL 7.5 7.5 Albumin 3.9 - 4.9 g/dL 4.6 4.3 Calcium 8.5 - 10.2 mg/dL 9.8 10.0 Bilirubin, Total 0.2 - 1.3 mg/dL 0.3 0.2 Alkaline Phosphatase 34 - 123 U/L 84 92 AST 13 - 35 U/L 26 40 (H) ALT 7 - 38 U/L 14 29 Glucose 74 - 99 mg/dL 77 85 BUN 7 - 21 mg/dL 16 22 (H) Creatinine 0.58 - 0.96 mg/dL 0.80 0.92 Sodium 136 - 144 mmol/L 136 140 Potassium 3.7 - 5.1 mmol/L 4.6 4.0 Chloride 98 - 107 mmol/L 101 104 CO2 22 - 30 mmol/L 23 24 Anion Gap 8 - 15 mmol/L 12 12 eGFR >=60 mL/min/1.73m 77 65 Total Cholesterol, Nonfasting <200 mg/dL 163 207 (H) Triglycerides, Nonfasting <150 mg/dL 62 116 HDL Cholesterol, Nonfasting >39 mg/dL 62 56 LDL Cholesterol, Nonfasting <100 mg/dL 89 128 (H) Non HDL Cholesterol, Nonfasting <130 mg/dL 101 151 (H) VLDL Cholesterol, Nonfasting <30 mg/dL 12 23 Total Chol/HDL Ratio, Nonfasting <5.10 mg/dL 2.63 3.70 LDL/HDL Ratio, Nonfasting <2.54 mg/dL 1.44 2.29 Hemoglobin A1C 4.3 - 5.6 % 5.7 (H) 5.4 5.7 (H) Estimated Average Glucose mg/dL 117 108 117 Vitamin D 25 Hydroxy 31.0 - 80.0 ng/mL 102.0 (H) A/P ASSESSMENT/PLAN: 1. Encounter for Medicare annual wellness exam - ICD9: V70.0, ICD10: Z00.00 (primary diagnosis) - Counseled on healthy diet and regular exercise - Follow up for annual exam in one year - p thinking about getting Flu vaccine. 2. Essential hypertension, benign - ICD9: 401.1, ICD10: I10 - Uncontrolled - Continue current medications - Recommend home blood pressure monitoring, to bring results to next visit - Encouraged sodium restriction, DASH or Mediterranean diet - Recommend regular aerobic exercise - f/u in 2 weeks and if still elevated Tx will need adjusted. 3. Elevated hemoglobin A1c - ICD9: 790.29, ICD10: R73.09 - slightly increased. Patient to cont dietary change fr control. 4. 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 dysplasia of both carotid arteries (HCC) - ICD9: 447.8, ICD10: I77.3 - follows with Vascular for management. 5. LALO (generalized anxiety disorder) - ICD9: 300.02, ICD10: F41.1 - stale not needing meds. 6. Mild AI (aortic insufficiency) - ICD9: 424.1, ICD10: I35.1 - PE was normal. 7. Age-related osteoporosis without current pathological fracture - ICD9: 733.01, ICD10: M81.0 - Reviewed the need for Calcium and Vitamin D supplements and weight bearing exercise as tolerated Check - DXA-AXIAL SKELETON - BD DXA TRABECULAR BONE SCORE (TBS) 8. Advance directive discussed with patient - ICD9: V65.49, ICD10: Z71.89 - patient has packets. 9. Screening for depression - ICD9: V79.0, ICD10: Z13.31 - DEPRESSION SCREENING 10. Elevated LFTs - ICD9: 790.6, ICD10: R79.89 In a month check - HEPATIC FUNCTION PNL - HEP ACUTE PANEL/RNA 11. High vitamin D level - ICD9: 278.4, ICD10: E67.3 In a month check - VITAMIN D 25 HYDROXY ASSESSMENT/PLAN: 12. Insomnia, unspecified type - ICD9: 780.52, ICD10: G47.00 - cont Ambien. F/u 6 months routine. Check Lipid, Vit D and A1c. F/u 2 weeks HTN med check. If still elevated her Tx will need adjusted. I spent a total of 40 minutes on the date of the service which included preparing to see the patient, [id number] patient care, completing clinical documentation, performing a medically appropriate examination, counseling and educating the patient/family/caregiver and ordering medications, tests, or procedures. Fabian Mcmullen MD documented in [facility] encounterReg[facility] Telephone encounter Note * Telephone Encounter - Elina Mckenzie LPN - 07/31/2024 8:39 AM EDT Pt notified of Constance's instructions. Pt verbalizes understanding and repeats instructions back correctly. Elina Mckenzie LPN [facility]10-17-2024 Miscellaneous Notes* Telephone Encounter - Elina Mckenzie LPN - 07/31/2024 8:39 AM EDT Pt notified of Constance's instructions. Pt verbalizes understanding and repeats instructions back correctly. Elina Mckenzie LPN * Telephone Encounter - Constance Klein PA-C - 07/31/2024 8:31 AM EDT Have her decrease to just 1000 international unit(s) at this time and then discuss with Dr. Mcmullen at upcoming visit. Constance Klein PA-C * Telephone Encounter - Elina Mckenzie LPN - 07/31/2024 8:27 AM EDT Spoke with pt and reviewed results. Pt advises that she takes vit D3 1000 international unit(s) twice daily and takes Centrum Silver multivitamin which has 1000 international unit(s) of vit D3 so shetakes a total of 3000 international unit(s) vit D 3 daily. Elina Mckenzie LPN * Telephone Encounter - Constance Klein PA-C - 07/31/2024 8:13 AM EDT Labs will be discussed at upcoming visit but her vit D is high. We have in the system that she is only on 2000 international unit(s) daily of Vit D. Is this correct? No other vitamins that have vit D? Constance Klein PA-C documented in this encounterReg[facility]10-17-2024 Telephone encounter Note * Telephone Encounter - Constance Klein PA-C - 07/31/2024 8:31 AM EDT Have her decrease to just 1000 international unit(s) at this time and then discuss with Dr. Mcmullen at upcoming visit. Constance Klein PA-C [facility]10-17-2024 Telephone encounter Note* Telephone Encounter - Elina Mckenzie LPN - 07/31/2024 8:27 AM EDT Spoke with pt and reviewed results. Pt advises that she takes vit D3 1000 international unit(s) twice daily and takes Centrum Silver multivitamin which has 1000 international unit(s) of vit D3 so shetakes a total of 3000 international unit(s) vit D 3 daily. Elina Mckenzie LPN [facility]10-17-2024 Telephone encounter Note* Telephone Encounter - Constance Klein PA-C - 07/31/2024 8:13 AM EDT Labs will be discussed at upcoming visit but her vit D is high. We have in the system that she is only on 2000 international unit(s) daily of Vit D. Is this correct? No other vitamins that have vit D? Constance Klein PA-C [facility]08-23-2024 Telephone encounter Note* Telephone Encounter - Heidy Mckeon - 06/06/2024 11:01 AM EDT Patient is requesting [facility] for pharmacy. [facility]08-23-[facility] Miscellaneous Notes* Telephone Encounter - Heidy Mckeon - 06/06/2024 11:01 AM EDT Patient is requesting [facility] for pharmacy. * Telephone Encounter - Heidy Mckeon - 06/06/2024 10:58 AM EDT Prescription Refill Information The patient has been identified by name and date of : Yes Caregiver verified no other encounters exist for this prescription request: Yes Caregiver confirmed with patient/requestor that no other refills are due, in the near future, with this provider at this time: Yes The last office visit in the department: 04-28-24 Does the patient have a future office visit with this provider/department: Yes Requested Prescriptions Pending Prescriptions Disp Refills lisinopril (ZESTRIL) 40 mg tablet 90 tablet 1 Sig: Take 1 tablet by mouth once daily. hydroCHLOROthiazide 12.5 mg capsule 90 capsule 1 Sig: Take 1 capsule by mouth once daily. Heidy Mckeon June 06, 2024 11:00 AM documented in this encounterReg[facility]08-23-2024 Telephone encounter Note * Telephone Encounter - Heidy Mckeon - 06/06/2024 10:58 AM EDT Prescription Refill Information The patient has been identified by name and date of : Yes Caregiver verified no other encounters exist for this prescription request: Yes Caregiver confirmed with patient/requestor that no other refills are due, in the near future, with this provider at this time: Yes The last office visit in the department: 04-28-24 Does the patient have a future office visit with this provider/department: Yes Requested Prescriptions Pending Prescriptions Disp Refills lisinopril (ZESTRIL) 40 mg tablet 90 tablet 1 Sig: Take 1 tablet by mouth once daily. hydroCHLOROthiazide 12.5 mg capsule 90 capsule 1 Sig: Take 1 capsule by mouth once daily. Heidy Mckeon June 06, 2024 11:00 AM [facility]08-12-2024 Telephone encounter Note* Telephone Encounter - Sol Lowery MA - 05/26/2024 9:36 AM EDT Prescription Refill Information The patient has been identified by name and date of : Yes Caregiver verified no other encounters exist for this prescription request: Yes Caregiver confirmed with patient/requestor that no other refills are due, in the near future, with this provider at this time: Yes The last office visit in the department: 04/2024 Does the patient have a future office visit with this provider/department: Yes 07/2024 Last refill: 01/2024 Requested Prescriptions Pending Prescriptions Disp Refills fluticasone (FLONASE) 50 mcg/actuation nasal spray 16 mL 2 Sig: Use 2 Sprays in each nostril once daily. Rinse mouth after use. Sol Lowery MA May 26, 2024 9:36 AM T [facility]08-12-2024 Miscellaneous Notes* Telephone Encounter - Sol Lowery MA - 05/26/2024 9:36 AM EDT Prescription Refill Information The patient has been identified by name and date of : Yes Caregiver verified no other encounters exist for this prescription request: Yes Caregiver confirmed with patient/requestor that no other refills are due, in the near future, with this provider at this time: Yes The last office visit in the department: 04/2024 Does the patient have a future office visit with this provider/department: Yes 07/2024 Last refill: 01/2024 Requested Prescriptions Pending Prescriptions Disp Refills fluticasone (FLONASE) 50 mcg/actuation nasal spray 16 mL 2 Sig: Use 2 Sprays in each nostril once daily. Rinse mouth after use. Sol Lowery MA May 26, 2024 9:36 AM * Telephone Encounter - Heidy Mckeon - 05/26/2024 8:14 AM EDT Prescription Refill Information The patient has been identified by name and date of : Yes Caregiver verified no other encounters exist for this prescription request: Yes Caregiver confirmed with patient/requestor that no other refills are due, in the near future, with this provider at this time: Yes The last office visit in the department: 04-28-23 Does the patient have a future office visit with this provider/department: Yes Requested Prescriptions Pending Prescriptions Disp Refills fluticasone (FLONASE) 50 mcg/actuation nasal spray 16 mL 2 Sig: Use 2 Sprays in each nostril once daily. Rinse mouth after use. Heidy Mckeon May 26, 2024 8:14 AM documented in this encounterReg[facility]08-12-2024 Telephone encounter Note * Telephone Encounter - Heidy Mckeon - 05/26/2024 8:14 AM EDT Prescription Refill Information The patient has been identified by name and date of : Yes Caregiver verified no other encounters exist for this prescription request: Yes Caregiver confirmed with patient/requestor that no other refills are due, in the near future, with this provider at this time: Yes The last office visit in the department: 04-28-23 Does the patient have a future office visit with this provider/department: Yes Requested Prescriptions Pending Prescriptions Disp Refills fluticasone (FLONASE) 50 mcg/actuation nasal spray 16 mL 2 Sig: Use 2 Sprays in each nostril once daily. Rinse mouth after use. Heidy Mckeon May 26, 2024 8:14 AM [facility]07-22-2024 History of Present illness Narrative* Sol Lowery MA - 05/05/2024 2:57 PM EDT Scan on 05/01/2024 5:33 PM by Provider, Yuly PAJanetteC: Ultrasound Scan on 05/01/2024 5:35 PM by Provider, Yuly, PA-C: Ultrasound Carotid and Renal US. Sol Lowery MA documented in this encounterReg[facility]07-15-2024 History of Present illness Narrative* Katie Chaudhari APRN.CARDROOM MANAGER - 04/28/2024 9:03 AM EDT Chief Complaint Patient presents with: Bleeding/Bruising: Bruising on right arm X 2 days HPI Laurence Koroma is a 73 year old female who presents here today for Above Complaints.. Patient presents for bruising to right arm. Patient was holding a baby and had many bangles on her arm. After she put the baby down she had right arm pain, stinging, burning. Bruising has decreased considerably. Past medical history, appointments, medications, allergies reviewed. [...] US 07/2022 LALO (generalized anxiety disorder) 12/29/2020 History of Clostridium difficile colitis 11/20/2023 Due to antibiotics. May need Vanco at same time as antibiotics to prevent recurrence. Would do Vanco 125 mg a day while on an antibiotic. Insomnia 11/29/2016 Lactose intolerance Lactose intolerance Mild [...] for up to 180 days. FOR INSOMNIA fluticasone (FLONASE) 50 mcg/actuation nasal spray Use 2 Sprays in each nostril once daily. Rinse mouth after use. benzonatate (TESSALON PERLES) 100 mg capsule Take 2 capsules by mouth three times a day as needed. lisinopril (ZESTRIL) 40 mg tablet Take 1 tablet by mouth once daily. alendronate (FOSAMAX) 70 mg tablet Take 1 tablet by mouth one time a week. In AM with cup of water on empty stomach. Nothing else by mouth and stay upright for 30 min. hydroCHLOROthiazide 12.5 mg capsule Take 1 capsule by mouth once daily. L.acid/L.casei/B.bif/B.yevgeniy/FOS (PROBIOTIC BLEND ORAL) Take by mouth. albuterol HFA (PROAIR HFA) 90 mcg/actuation inhaler Inhale 2 Puffs as instructed every 6 hours as needed. (Patient not taking: Reported on 12/20/2023) acyclovir (ZOVIRAX) 800 mg tablet 1 tablet three times daily. (Patient taking differently: 800 mg as needed.) aspirin, enteric coated (ASPIRIN, ENTERIC COATED) 81 [...] REVIEW OF SYSTEMS SEE HPI EXAM: BP 153/73 Pulse 75 Resp 14 Wt 44.9 kg (99 lb) BMI 19.66 kg/m General Appearance: Well appearing, alert, in no acute distress, well-hydrated, well nourished.. Skin: Positives: Ecchymosis: Right arm, 2cm x 2cm hematoma with bruising extending another 4cm x 1.5cm medially. No redness, warmth noted. Health Maintenance List BP Controlled (<130/80) Never done Covid-19 Vaccine(2022- season) due on 06/15/2023 Advance Directive Discussion due on 10/15/2023 Behavioral Health Screening Never done DTaP,Tdap,Td Vaccine(2 - Td or Tdap) due on 08/08/2024 RSV Vaccine(1 - 1-dose 60+ series) due on 08/08/2024 Bone Density Screening due on 09/04/2024 Annual PCP Team Chronic Disease Visit due on 02/06/2025 Colorectal Cancer Screening due on 11/24/2025 Diabetes Screening due on 01/29/2027 Lipid Screening due on 07/30/2028 Shingrix Vaccine Completed Pneumococcal Vaccine: 65+ Completed Mammogram Screening Discontinued Influenza Vaccine Discontinued Hepatitis C Screening Discontinued ASSESSMENT/PLAN: 1. Hematoma and contusion - ICD9: 924.9, ICD10: T14.8XXA -Continue to ice area 20min 3 times daily. -Patient instructed to monitor area for warmth, redness, or drainage. If redness or warmth patient to follow up with provider. Katie Chaudhari APRN.CARDROOM MANAGER documented in this encounterReg[facility]07-15-2024 Telephone encounter Note * Telephone Encounter - Noemi Delacruz RN - 04/28/2024 7:54 AM EDT Reason for call: Bruising and lump on right inner forearm that started yesterday evening. Mild to moderate discomfort. Outcome: Advised to be seen within 4 hours. Caller conferenced to Lizzy in appointment center, to be scheduled in office of PCP. Caller also given alternate options for care including [facility], emergency department for worsening symptoms. Reason for Disposition Large swelling or bruise (> 2 inches or 5 cm) Advised to be seen within 4 hours due to patient anxiety regarding condition. Answer Assessment - Initial Assessment Questions 1. MECHANISM: Was holding a baby yesterday, while wearing bracelets that were pressing against arm. 2. ONSET: Yesterday afternoon. 3. LOCATION: right forearm, 3.5 to 4 inches above wrist on right arm on inner area. 4. APPEARANCE of INJURY: Has a red area and a bump under skin that is the size of a pea. Red. 5. SEVERITY: Can use the arm normally. 6. SWELLING or BRUISING: Bruising from around wrist to elbow yesterday. Today bruising is covering 2 inches around the lump. 7. PAIN: Today has a dull ache between mild to moderate in the area of right forearm described. Has taken two baby aspirin(takes daily, was not taken for pain.) Last dose this morning at 730 am. Using cold compresses, unsure if this is helping the pain. 8. TETANUS: Last documented in 2012. 9. OTHER SYMPTOMS: Denies numbness/tingling. [place] a tingling and stinging on this area of arm yesterday. This lasted while she was driving for an hour and a half. Still stinging later that evening yesterday. [place] lightheaded yesterday evening. Eating and drinking normally, urinating normally. Patient feels she has a blood clot. 10. : n/a Protocols used: Arm [id number] [facility]07-15-2024 Miscellaneous Notes* Telephone Encounter - Noemi Delacruz RN - 04/28/2024 7:54 AM EDT Reason for call: Bruising and lump on right inner forearm that started yesterday evening. Mild to moderate discomfort. Outcome: Advised to be seen within 4 hours. Caller conferenced to Lizzy in appointment center, to be scheduled in office of PCP. Caller also given alternate options for care including [facility], emergency department for worsening symptoms. Reason for Disposition Large swelling or bruise (> 2 inches or 5 cm) Advised to be seen within 4 hours due to patient anxiety regarding condition. Answer Assessment - Initial Assessment Questions 1. MECHANISM: Was holding a baby yesterday, while wearing bracelets that were pressing against arm. 2. ONSET: Yesterday afternoon. 3. LOCATION: right forearm, 3.5 to 4 inches above wrist on right arm on inner area. 4. APPEARANCE of INJURY: Has a red area and a bump under skin that is the size of a pea. Red. 5. SEVERITY: Can use the arm normally. 6. SWELLING or BRUISING: Bruising from around wrist to elbow yesterday. Today bruising is covering 2 inches around the lump. 7. PAIN: Today has a dull ache between mild to moderate in the area of right forearm described. Has taken two baby aspirin(takes daily, was not taken for pain.) Last dose this morning at 730 am. Using cold compresses, unsure if this is helping the pain. 8. TETANUS: Last documented in 2012. 9. OTHER SYMPTOMS: Denies numbness/tingling. [place] a tingling and stinging on this area of arm yesterday. This lasted while she was driving for an hour and a half. Still stinging later that evening yesterday. [place] lightheaded yesterday evening. Eating and drinking normally, urinating normally. Patient feels she has a blood clot. 10. : n/a Protocols used: Arm [id number] documented in this encounterReg[facility]06-14-2024 Telephone encounter Note * Telephone Encounter - Kaye Pacheco - 03/28/2024 9:28 AM EDT Prescription Refill Information The patient has been identified by name and date of : Yes Caregiver verified no other encounters exist for this prescription request: Yes Caregiver confirmed with patient/requestor that no other refills are due, in the near future, with this provider at this time: Yes The last office visit in the department: 02-07-24 Does the patient have a future office visit with this provider/department: Yes Requested Prescriptions Pending Prescriptions Disp Refills Potassium Chloride (KLOR-CON 8) 8 mEq tablet 180 tablet 1 Sig: Take 1 tablet by mouth two times a day. Kaye Allan March 28, 2024 9:29 AM [facility] Work Phone: [phone] Miscellaneous Notes* Telephone Encounter - Kaye Pacheco - 03/28/2024 9:28 AM EDT Prescription Refill Information The patient has been identified by name and date of : Yes Caregiver verified no other encounters exist for this prescription request: Yes Caregiver confirmed with patient/requestor that no other refills are due, in the near future, with this provider at this time: Yes The last office visit in the department: 02-07-24 Does the patient have a future office visit with this provider/department: Yes Requested Prescriptions Pending Prescriptions Disp Refills Potassium Chloride (KLOR-CON 8) 8 mEq tablet 180 tablet 1 Sig: Take 1 tablet by mouth two times a day. Kaye Allan March 28, 2024 9:29 AM documented in this encounterRegency [facility]05-29-2024 Telephone encounter Note * Telephone Encounter - Fabian Mcmullen MD - 03/12/2024 6:21 PM EDT The following approved medication requests have been transmitted electronically. Requested Prescriptions Signed Prescriptions Disp Refills zolpidem (AMBIEN) 10 mg 90 tablet 1 Sig: Take 1 tablet by mouth at bedtime as needed for up to 180 days. FOR INSOMNIA Authorizing Provider: FABIAN MCMULLEN MD [facility]05-29-2024 Miscellaneous Notes* Telephone Encounter - Fabian Mcmullen MD - 03/12/2024 6:21 PM EDT The following approved medication requests have been transmitted electronically. Requested Prescriptions Signed Prescriptions Disp Refills zolpidem (AMBIEN) 10 mg 90 tablet 1 Sig: Take 1 tablet by mouth at bedtime as needed for up to 180 days. FOR INSOMNIA Authorizing Provider: FABIAN MCMULLEN MD * Telephone Encounter - Johanna Aguirre - 03/12/2024 4:53 PM EDT Patient has been identified by name and date of : Yes, Provider Fabian Mcmullen MD Date 03/12/2024 Time 4:54 pm Patient phones for refill(s): Requested Prescriptions Pending Prescriptions Disp Refills zolpidem (AMBIEN) 10 mg 90 tablet 1 Sig: Take 1 tablet by mouth at bedtime as needed for up to 180 days. FOR INSOMNIA Date of last office visit in primary care:02/07/2024 Date of next office visit in primary care: 08/08/2024 Please advise. Thank you. Johanna Oswald. documented in this encounterRegency [facility]05-29-2024 Telephone encounter Note * Telephone Encounter - Johanna Aguirre - 03/12/2024 4:53 PM EDT Patient has been identified by name and date of : Yes, Provider Fabian Mcmullen MD Date 03/12/2024 Time 4:54 pm Patient phones for refill(s): Requested Prescriptions Pending Prescriptions Disp Refills zolpidem (AMBIEN) 10 mg 90 tablet 1 Sig: Take 1 tablet by mouth at bedtime as needed for up to 180 days. FOR INSOMNIA Date of last office visit in primary care:02/07/2024 Date of next office visit in primary care: 08/08/2024 Please advise. Thank you. Johanna Oswald. [facility]04-25-2024 History of Present illness Narrative* Constance Klein PA-C - 02/07/2024 2:01 PM EDT Chief Complaint Patient presents with: Follow Up: 6 month FU HPI Laurence Koroma is a 73 year old female who presents here today for Chronic Medical Conditions.. Patient with hx HTN, elevated A1c, LALO, insomnia, and those as below. No concerns today. Past medical history, appointments, medications, allergies reviewed. [...] US 07/2022 LALO (generalized anxiety disorder) 12/29/2020 History of Clostridium difficile colitis 11/20/2023 Due to antibiotics. May need Vanco at same time as antibiotics to prevent recurrence. Would do Vanco 125 mg a day while on an antibiotic. Insomnia 11/29/2016 Lactose intolerance Lactose intolerance Mild [...] nostril once daily. Rinse mouth after use. benzonatate (TESSALON PERLES) 100 mg capsule Take 2 capsules by mouth three times a day as needed. lisinopril (ZESTRIL) 40 mg tablet Take 1 tablet by mouth once daily. alendronate (FOSAMAX) 70 mg tablet Take 1 tablet by mouth one time a week. In AM with cup of water on empty stomach. Nothing else by mouth and stay upright for 30 min. hydroCHLOROthiazide 12.5 mg capsule Take 1 capsule by mouth once daily. L.acid/L.casei/B.bif/B.yevgeniy/FOS (PROBIOTIC BLEND ORAL) Take by mouth. Potassium Chloride (KLOR-CON 8) 8 mEq tablet Take 1 tablet by mouth two times a day. zolpidem (AMBIEN) 10 mg Take 1 tablet by mouth at bedtime as needed for up to 180 days. FOR INSOMNIA aspirin, enteric coated (ASPIRIN, ENTERIC COATED) 81 mg EC tablet Take 1 tablet by mouth once daily. acyclovir (ZOVIRAX) 800 mg tablet 1 tablet three times daily. cholecalciferol (VITAMIN D3) 1,000 unit tab tablet Take 1,000 Units by mouth twice daily. loratadine (CLARITIN) 10 mg tablet Take 1 tablet by mouth once daily. albuterol HFA (PROAIR HFA) 90 mcg/actuation inhaler Inhale 2 Puffs as instructed every 6 hours as needed. (Patient not taking: Reported on 12/20/2023) acyclovir (ZOVIRAX) 800 mg tablet 1 tablet three times daily. (Patient taking differently: 800 mg as needed.) No current facility-administered medications on file prior [...] pain, leg swelling, hypertension, CHF or palpitations NEURO: No history of headaches, syncope, paralysis, seizures or tremors EXAM: BP 130/58 (BP Site: Left Arm, BP Position: Sitting, BP Cuff Size: Regular Adult) Pulse 79 Temp 36.9 C (98.4 F) (Left Tympanic) Resp 16 Wt 44.5 kg (98 lb) SpO2 98% BMI 19.46 kg/m General Appearance: Well appearing, alert, in no acute distress, well-hydrated, well nourished.. Neck: Supple, no adenopathy; thyroid symmetric, normal size, no bruits. Lungs: Lungs clear to auscultation. No wheezing, rhonchi, rales.. Heart: RRR without murmur, gallop, or rubs. No ectopy. Extremities: No deformities, edema, skin discoloration, clubbing or cyanosis. Good capillary refill. . Peripheral Pulses: Normal. Health Maintenance List BP Controlled (<130/80) Never done Covid-19 Vaccine(2022- season) due on 06/15/2023 Advance Directive Discussion due on 10/15/2023 Behavioral Health Screening Never done DTaP,Tdap,Td Vaccine(2 - Td or Tdap) due on 08/08/2024 RSV Vaccine(1 - 1-dose 60+ series) due on 08/08/2024 Bone Density Screening due on 09/04/2024 Annual PCP Team Chronic Disease Visit due on 02/06/2025 Colorectal Cancer Screening due on 11/24/2025 Diabetes Screening due on 01/29/2027 Lipid Screening due on 07/30/2028 Shingrix Vaccine Completed Pneumococcal Vaccine: 65+ Completed Mammogram Screening Discontinued Influenza Vaccine Discontinued Hepatitis C Screening Discontinued Data reviewed Latest Ref Rng 01/30/2024 Hemoglobin A1C 4.3 - 5.6 % 5.4 Estimated Average Glucose mg/dL 108 ASSESSMENT/PLAN: 1. Essential hypertension, benign - ICD9: 401.1, ICD10: I10 (primary diagnosis) - Controlled - Continue current medications - Recommend home blood pressure monitoring, to bring results to next visit - Encouraged sodium restriction, DASH or Mediterranean diet - Recommend regular aerobic exercise - COMPREHENSIVE METABOLIC PANEL - COMPLETE BLOOD COUNT AND DIFFERENTIAL - LIPID PANEL, NONFASTING 2. LALO (generalized anxiety disorder) - ICD9: 300.02, ICD10: F41.1 stable 3. Insomnia, unspecified type - ICD9: 780.52, ICD10: G47.00 stable 4. Elevated hemoglobin A1c - ICD9: 790.29, ICD10: R73.09 improve - HEMOGLOBIN A1C - LIPID PANEL, NONFASTING 5. Age-related osteoporosis without current pathological fracture - ICD9: 733.01, ICD10: M81.0 - Reviewed the need for Calcium and Vitamin D supplements and weight bearing exercise as tolerated - VITAMIN D 25 HYDROXY 6. Mild AI (aortic insufficiency) - ICD9: 424.1, ICD10: I35.1 - COMPLETE BLOOD COUNT AND DIFFERENTIAL - LIPID PANEL, NONFASTING Follow up in 6 months with labs prior. Constance Klein PA-C documented in this encounterReg[facility]04-16-[facility]24 Miscellaneous Notes* Telephone Encounter - Sol Lowery MA - 01/29/2024 11:09 AM EDT Patient notified and voiced understanding. Sol Lowery MA * Telephone Encounter - Constance Klein PA-C - 01/29/2024 9:30 AM EDT The following approved medication requests have been transmitted electronically. Requested Prescriptions Signed Prescriptions Disp Refills fluticasone (FLONASE) 50 mcg/actuation nasal spray 16 mL 2 Sig: Use 2 Sprays in each nostril once daily. Rinse mouth after use. Authorizing Provider: CONSTANCE KLEIN PA-C * Telephone Encounter - [place] Dionna Allan - 01/29/2024 9:09 AM EDT Lexie is calling Fabian Mcmullen MD today to request medication that is not on her current list: fluticasone (FLONASE) 50 mcg/actuation nasal spray 16 mL 1 01/16/2023 02/15/2023 Sig: Use 2 Sprays in each nostril once daily. Rinse mouth after use. Sent to pharmacy as: fluticasone (FLONASE) 50 mcg/actuation nasal spray Class: Normal Route: EACH NOSTRIL Order: [id number] E-Prescribing Status: Receipt confirmed by pharmacy (01/16/2023 9:49 AM EDT) Please send to [facility] today, out of medication. Patient has been identified by name and birthdate. Duration of symptoms: N/A Person calling: self Call patient at: on cell [phone] (home) [phone] (cell) Was an appointment scheduled: No Closing statement: Results or non-symptom based questions: Thank you for calling [facility], your call will be returned within the next business day. Dionna Barcenas Pss documented in this encounterRegency Hospital [facility]03-11-2024 Miscellaneous Notes* Telephone Encounter - Danielle Quarles LPN - 12/24/2023 12:05 PM EDT Pt called back in and was advised of results. Danielle Quarles LPN * Telephone Encounter - Elina Mckenzie LPN - 12/24/2023 11:51 AM EDT Left message of same on pt's identified vm. Elina Mckenzie LPN * Telephone Encounter - Constance Klein PA-C - 12/24/2023 11:28 AM EDT Patient's xray was normal. Constance Klein PA-C documented in this encounterRegency Hospital [facility]03-07-2024 History of Present illness Narrative* Halley Evans RT(R) - 12/20/2023 1:20 PM EST Radiology Service Progress Note PATIENT NAME: Laurence Koroma DATE OF SERVICE: December 20, 2023 TIME: 1:20 PM PATIENT IDENTITY VERIFICATION COMPLETED USING TWO (2) IDENTIFIERS: Name and Date of confirmedby patient verbally. FALL SCREENING: Has the patient had 2 falls in the last year or 1 fall with injury or currently using an Ambulatory Assistive Device (Walker, Cane, Wheelchair, Crutches, etc.)? No PATIENT GENDER DATA: Female. status: : No status: NO. 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 Patient reports cough for the past 3-4 days. Worse at night. Home covid test negative. Denies shortness of breath or chest pain No fevers. Patient's granddaughter did have illness last week but not sure what she had. Has been using flonase. Past medical history, appointments, medications, allergies reviewed. [...] US 07/2022 LALO (generalized anxiety disorder) 12/29/2020 History of Clostridium difficile colitis 11/20/2023 Due to antibiotics. May need Vanco at same time as antibiotics to prevent recurrence. Would do Vanco 125 mg a day while on an antibiotic. Insomnia 11/29/2016 Lactose intolerance Lactose intolerance Mild [...] on File Prior to Visit Medication Sig lisinopril (ZESTRIL) 40 mg tablet Take 1 tablet by mouth once daily. alendronate (FOSAMAX) 70 mg tablet Take 1 tablet by mouth one time a week. In AM with cup of water on empty stomach. Nothing else by mouth and stay upright for 30 min. hydroCHLOROthiazide 12.5 mg capsule Take 1 capsule by mouth once daily. L.acid/L.casei/B.bif/B.yevgeniy/FOS (PROBIOTIC BLEND ORAL) Take by mouth. Potassium Chloride (KLOR-CON 8) 8 mEq tablet Take 1 tablet by mouth two times a day. zolpidem (AMBIEN) 10 mg Take 1 tablet by mouth at bedtime as needed for up to 180 days. FOR INSOMNIA benzonatate (TESSALON PERLES) 100 mg capsule Take 2 capsules by mouth three times a day as needed. acyclovir (ZOVIRAX) 800 mg tablet 1 tablet three times daily. (Patient taking differently: 800 mg as needed.) aspirin, enteric coated (ASPIRIN, ENTERIC COATED) 81 mg EC tablet Take 1 tablet by mouth once daily. acyclovir (ZOVIRAX) 800 mg tablet 1 tablet three times daily. cholecalciferol (VITAMIN D3) 1,000 unit tab tablet Take 1,000 Units by mouth twice daily. loratadine (CLARITIN) 10 mg tablet Take 1 tablet by mouth once daily. albuterol HFA (PROAIR HFA) 90 mcg/actuation inhaler Inhale 2 Puffs as instructed every 6 hours as needed. (Patient not taking: Reported on 12/20/2023) No current facility-administered medications on file prior to visit. Social History Social History Tobacco Use Smoking status: Never Smokeless tobacco: Never Vaping Use Vaping Use: Never used Substance Use Topics Alcohol use: No Drug use: No Review of Symptoms REVIEW OF SYSTEMS See hpi EXAM: BP 116/60 (BP Site: Right Arm, BP Position: Sitting, BP Cuff Size: Regular Adult) Pulse 100 Temp 37.2 C (99 F) Resp 16 Wt 44.9 kg (99 lb) SpO2 97% BMI 19.66 kg/m General Appearance: Well appearing, alert, in [...] rubs. No ectopy. Health Maintenance List BP Controlled (<130/80) Never done Covid-19 Vaccine(2022- season) due on 06/15/2023 Advance Directive Discussion due on 10/15/2023 Depression Assessment due on 10/15/2023 DTaP,Tdap,Td Vaccine(2 - Td or Tdap) due on 08/08/2024 RSV Vaccine(1 - 1-dose 60+ series) due on 08/08/2024 Annual PCP Team Chronic Disease Visit due on 11/16/2024 Colorectal Cancer Screening due on 11/24/2025 Diabetes Screening due on 07/30/2026 Lipid Screening due on 07/30/2028 Bone Density Screening Completed Shingrix Vaccine Completed Pneumococcal Vaccine: 65+ Completed Mammogram Screening Discontinued Influenza Vaccine Discontinued Hepatitis C Screening Discontinued Data reviewed ASSESSMENT/PLAN: 1. Viral bronchitis - ICD9: 466.0, ICD10: J20.8 (primary diagnosis) Continue symptom care. Will get CXR to rule out developing pneumonia. - XR CHEST 2V FRONTAL/LAT 2. URI, acute - ICD9: 465.9, ICD10: J06.9 - Discussed viral etiology and rationale for treatment. - Symptomatic treatment with prn analgesia - Supportive care with fluids and rest Follow up prn. Constance Klein PA-C documented in this encounterRegency Hospital [facility]02-27-2024 Miscellaneous Notes* Telephone Encounter - Elina Mckenzie LPN - 12/11/2023 11:46 AM EST Pt notified of same. 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 Pt will check with pharmacy.Elina Mckenzie LPN * Telephone Encounter - Constance Klein PA-C - 12/11/2023 11:23 AM EST Patient is not due for refill of ambien. Recently filled at pharmacy on 12/10 for a 90 day supply. Advise her to request refill closer to time that it is due. Otherwise prescriptions sent. Constance Klein PA-C * Telephone Encounter - Elina Mckenzie LPN - 12/11/2023 10:30 AM EST Per message below pt is requesting 90 day supply of medications Patient has been identified by name and date of : Yes, Provider Dr Mcmullen Date 12/11/23 Time 10:32 am Patient phones for refill(s): Requested Prescriptions Pending Prescriptions Disp Refills lisinopril (ZESTRIL) 40 mg tablet 90 tablet 1 Sig: Take 1 tablet by mouth once daily. alendronate (FOSAMAX) 70 mg tablet 12 tablet 3 Sig: Take 1 tablet by mouth one time a week. In AM with cup of water on empty stomach. Nothing elseby mouth and stay upright for 30 min. zolpidem (AMBIEN) 10 mg 90 tablet 1 Sig: Take 1 tablet by mouth at bedtime as needed for up to 180 days. FOR INSOMNIA hydroCHLOROthiazide 12.5 mg capsule 90 capsule 1 Sig: Take 1 capsule by mouth once daily. Date of last office visit in primary care: 11/16/2023 Date of next office visit in primary care: 02/07/2024 Please advise. Thank you. Elina Mckenzie LPN. * Telephone Encounter - Heidy Mckeon - 12/11/2023 9:12 AM EST Patient has been identified by name and date of : Patient phones for refill(s): Requested Prescriptions Pending Prescriptions Disp Refills lisinopril (ZESTRIL) 40 mg tablet 30 tablet 5 Sig: Take 1 tablet by mouth once daily. alendronate (FOSAMAX) 70 mg tablet 12 tablet 3 Sig: Take 1 tablet by mouth one time a week. In AM with cup of water on empty stomach. Nothing elseby mouth and stay upright for 30 min. zolpidem (AMBIEN) 10 mg 90 tablet 1 Sig: Take 1 tablet by mouth at bedtime as needed for up to 180 days. FOR INSOMNIA hydroCHLOROthiazide 12.5 mg capsule 90 capsule 1 Sig: Take 1 capsule by mouth once daily. Date of last office visit in primary care: 11/16/2023 Date of next office visit in primary care: 02/07/2024 Patient asking for 90 day refill. Please advise. Thank you. Heidy Mckeon. documented in this encounterRegency Hospital [facility]02-20-2024 History of Present illness Narrative* Ana Nieto AuD - 12/04/2023 8:20 AM EST Images from the original note were not included. [facility] [address] [id number] Name: Laurence Koroma : 1950 Date: 12/04/23 History & Purpose of Evaluation: Laurence Koroma was seen today for audiologic assessment at the request of Alexei Kruger MD. Ms. Koroma' chief auditory complaint was hearing loss in both ears, with recent progression in the left ear. Ms. Koroma noticed the decline of hearing the first week of October 2023, following illness with Covid. She had also used a neti pot around the time her hearing declined, and she wondered if there was an association with that. Please see below for other pertinent case history information as reported by Ms. Koroma. Otologic Symptoms R L Noise Exposure Y N Medical Y N Hearing Loss [x] [x] Occupational [] [x] Hypertension [x] [] Tinnitus [] [] Recreational [] [x] Diabetes [] [x] Otalgia [] [] [] [x] Hypercholesterolemia [] [x] Otorrhea [] [] Heart Disease [] [x] Aural Fullness [] [x] Family History-parents [x] [] Stroke [] [x] Meniere s Disease [] [] Cancer [] [x] Y N Sp./Lang. Skills Ear Surgery R L Vertigo [] [x] Appropriate [x] [] PE Tubes [] [] Dizziness [] [x] In Therapy [] [x] Mastoidectomy [] [] Imbalance [] [x] Social Acoustic Neuroma [] [] Vestibular Rehab [] [x] Depression [] [x] Tympanoplasty [] [] Hearing aids: none Other: Results: Otoscopy: Performed by Dr. Kruger prior to testing. Puretone Air & Bone Conduction Audiometry: Right ear: sensorineural hearing loss, moderate in the low frequencies through 500 Hz, rising to mild through 4000 Hz, sloping to moderate at 8000 Hz. Left ear: sensorineural hearing loss, moderate in the low frequencies through 500 Hz, rising to mild through 2000 Hz, sloping to severe at 8000 Hz. An additional conductive component was noted at 3000 Hz. Speech Audiometry: Speech recognition thresholds were in good agreement with puretone averages. Word recognition was excellent (98% in the right ear and 96% in the left ear) when assessed at levels above normal conversational loudness using recorded male voice. Immittance Audiometry: Tympanometry revealed normal ear canal volume, normal static compliance, and normal resting pressure (Jerger type A) in the right ear. Tympanometry in the left ear revealed normal ear canal volume, normal static compliance, and negative resting pressure (Jerger type C). Impression: Middle ear testing was consistent with normal middle ear function in the right ear and negative pressure in the left ear. Puretone audiometry was consistent with a mild-moderate sensorineural hearingloss in the right ear and a moderate- severe mixed hearing loss in the left ear. This hearing loss is expected to interfere with communication, especially in difficult listening situations. Ms. Koroma is a candidate for amplification with hearing aids. Recommendations: Follow up with Dr. Kruger. Further testing and/or re-evaluation at Dr. Kruger' discretion. Hearing aids are recommended, following otologic clearance at Dr. Kruger' discretion. The above was explained to Ms. Koroma and she expressed understanding. Electronically Signed by: Teddy Win, [facility] 12/04/23 8:20 AM Audiogram: documented in this [id number] History of Present illness Narrative* Alexei Kruger MD - 12/04/2023 8:07 AM EST [facility] [address] [facility] [place] [address] [facility] [id number] Dept: [phone] Alexei Kruger MD Laurence Koroma 73 y.o. female Patient presents with a chief complaint of Establish Care (New patient hearing loss after covid ) Temp 97.3 F (36.3 C) Wt 44.4 kg (97 lb 12.8 oz) History of Presenting Illness: The patient/caregiver reports a history of complaint with the following features: Onset: started after respiratory illness, COVID Timing: abrupt onset Duration: 2 months Quality: hearing loss on left, popping, and ache, slowly improving hearing Location: left ear Severity: pain mild Risk factors: associated COVID infection Alleviating factors: no relief with antibiotic and oral steroid Aggravating factors: nothing makes it worse Associated factors: no vertigo, no tinnitus Review of systems covering 10 systems is reviewed and pertinent positives and negatives are noted as above. History reviewed. No pertinent past medical history. Current Outpatient Medications: albuterol 90 mcg/actuation inhaler, Inhale 2 (two) puffs every 6 (six) hours as needed ., Disp: , Rfl: alendronate (FOSAMAX) 70 MG tablet, Take 1 (one) tablet (70 mg total) by mouth over 168 hr ., Disp:, Rfl: aspirin 81 MG EC tablet, Take 1 (one) tablet (81 mg total) by mouth daily ., Disp: , Rfl: fluticasone propionate (FLONASE) 50 mcg/actuation nasal spray, USE 2 SPRAYS IN EACH NOSTRIL ONCE DAILY. RINSE MOUTH AFTER USE., Disp: , Rfl: hydroCHLOROthiazide (MICROZIDE) 12.5 mg capsule, Take 1 (one) capsule (12.5 mg total) by mouth daily ., Disp: , Rfl: lisinopriL (PRINIVIL,ZESTRIL) 40 MG tablet, Take 1 (one) tablet (40 mg total) by mouth daily ., Disp: , Rfl: methylPREDNISolone (MEDROL DOSEPACK) 4 mg tablet, TAKE BY MOUTH DIRECTED ON PACKAGE WITH FOOD, Disp: , Rfl: ondansetron (ZOFRAN-ODT) 4 MG disintegrating tablet, , Disp: , Rfl: cholecalciferol, vitamin D3, 1,000 unit tablet, Take 1 (one) tablet (1,000 Units total) by mouth 2 (two) times a day ., Disp: , Rfl: Allergies Allergen Reactions Sulfa (Sulfonamide Antibiotics) Rash Amoxicillin-Pot Clavulanate GI Intolerance Patient had diarrhea and possibly a mild skin rash with prior use of Augmentin. She has subsequently taken amoxicillin and tolerated this without adverse reaction. Cat Dander GI Intolerance Echinacea Swelling Pollen Extracts GI Intolerance Ragweed GI Intolerance History reviewed. No pertinent surgical history. Social History Socioeconomic History Marital status: Tobacco Use Smoking status: Never Smokeless tobacco: Never Substance and Sexual Activity Alcohol use: Never Drug use: Never History reviewed. No pertinent family history. PHYSICAL EXAM: The patient was examined today 12/04/2023 with findings as follows: CONSTITUTIONAL: General Appearance: well-appearing, nontoxic, alert, no acute distress Communication: understanding at normal conversational tones, normal voicing, speech intelligible HEAD/FACE: Head: atraumatic, normocephalic, no lesions Facial Inspection: no lesions, healthy skin Facial Strength: motor strength normal, symmetric strength, symmetric movement Sinuses: no sinus tenderness Salivary Glands: no enlargements of parotid glands, no tenderness of parotid glands, no masses of parotid glands, clear salivary flow on palpation from Stensen's ducts, no duct stones of Stensen's duct, no enlargement of submandibular glands, no tenderness of submandibular glands, no masses of subma ndibular glands, clear salivary flow from Tita's ducts, no stones of Tita's ducts Temporomandibular Joint: no crepitus with motion, no tenderness on palpation, no trismus, motion symmetric EYES: Pupils: PERRLA, extra-ocular movements intact, no nystagmus, sclera white, no redness of eyes, no watering of eyes EARS: Bilateral External Ears: no pits, no tags Right External Ear: normally formed, no lesions, no mastoid tenderness Left External Ear: normally formed, no lesions, no mastoid tenderness Right External Auditory Canal: normal, healthy skin, no obstructing cerumen, no discharge Left External Auditory Canal: normal, healthy skin, no obstructing cerumen, no discharge Right Tympanic Membrane: normal landmarks, translucent, mobile to pneumatic otoscopy, no perforation Left Tympanic Membrane: normal landmarks, translucent, mobile to pneumatic otoscopy, no perforation Hearing: intact to spoken voice, intact to finger rub, Joy midline, Right Ear: Rinne AC>BC, Left Left Ear: Rinne AC>BC NOSE: Nasal Skin: no lesions, no lacerations, no scars Nasal Dorsum: symmetric with no visible or palpable deformities Nasal Tip: normal symmetric nasal tip, normal nasal valves Nasal Mucosa: normal, pink and moist Septum: not markedly deformed, midline, no exposed vessels, no bleeding, no septal granuloma Turbinates: normal size and conformation Nasopharynx: normal ORAL CAVITY/MOUTH: Lips, teeth, gums: normal lips, normal gums, dentition intact, no dental pain on palpation Oral Mucosa: normal, moist, no lesions Palate: normal hard palate, normal soft palate, symmetric palatal elevation Floor of Mouth: normal floor of mouth Tongue: normal tongue, no lesions, no edema, no masses, normal mucosa, mobile Tonsils: normal tonsils, symmetric, no lesions Posterior pharynx: normal NECK: Neck: no masses, trachea midline, normal range of motion, no cysts or pits, no tenderness to palpation Thyroid: normal thyroid, no enlargement, no tenderness, no nodules LYMPH NODES: Cervical: no palpable lymph node enlargement SKIN: General Appearance: no lesions, warm and dry, normal turgor, no bruising NEUROLOGICAL SYSTEM: Orientation: oriented to time, oriented to place, oriented to person Cranial Nerves: Cranial Nerves II-XII intact, normal facial movement PSYCHIATRIC: Mood and affect: normal mood, normal affect Assessment and Plan: She presents with a sudden loss of hearing associated with COVID infection. This was attributed to effusion, but did not improve with antibiotic and steroid treatment. I se no middle ear fluid on exam and tuning fork testing is normal and not suggestive of a conductive hearing loss from effusion. As this was reportedly observed by her PCP, transient middle ear fluid seems most likely. Audiometric testing is performed today and independently reviewed and interpreted. This shows a mild-moderate left mixed loss and mild-moderate right loss with excellent speech discrimination. Tympanometry shows a blunted negative pressure on the left and normal on the right. This is consistent with a resolving inflammatory process and is less suggestive of a sudden sensorineural loss, although this cannot be excluded given the normal ear exam today. On either count, a good recovery is noted which suggests and excellent prognosis. Repeat testing to ensure full resolution is advised with return for any loss of hearing in the interim. The causes of hearing loss are discussed in the context of the patient's history and exam findings.We have discussed that exposure to excess environmental noise can result in worsened symptoms and that hearing protection in high noise environments is recommended. We have discussed that hearing aids can be helpful when hearing loss is disruptive and the features of hearing loss that respond well to amplification. An appointment with the check and transfer beader in the office is offered if the patient wishesto explore options in this regard. The patient and/or caregiver is able to state an understanding of these recommendations and is agreeable to the treatment plan. 1. Sudden hearing loss, left Ambulatory referral to Audiology 2. Disorder of left eustachian tube Return in about 3 months (around 03/03/2024) for Hearing test. The patient and/or caregiver is to notify the office if no improvement or worsening of symptoms is noted prior to the scheduled follow-up for sooner evaluation. The patient and/or caregiver is able to state an understanding of these recommendations and is agreeable to the treatment plan. --Alexei Kruger MD on 12/04/2023 at 9:22 AM An electronic signature was used to authenticate this note. * Kristen Garner MA - 12/04/2023 8:04 AM EST Review of Systems Constitutional: Positive for activity change and fatigue. HENT: Positive for congestion and sinus pain. Negative for ear pain. Eyes: Positive for redness. Respiratory: Positive for cough and shortness of breath. Cardiovascular: Positive for chest pain. Endocrine: Positive for polyphagia. Genitourinary: Positive for difficulty urinating, frequency and urgency. Neurological: Positive for dizziness and light-headedness. documented in this [id number] History of Present illness Narrative* Elina Mckenzie LPN - 11/29/2023 8:19 AM EST Scan on 11/27/2023 3:15 AM by Provider, RISHABH Emery: Consultation - Emergency Medicine documented in this encounterReg[facility]24 Miscellaneous Notes* Telephone Encounter - Kristen Griffin RN - 11/20/2023 12:36 PM EST Pt called and is notified of providers message and instructions. Pt voices understanding. Faxed Pt Snapshot to [facility] at fax # [phone]. Kristen Griffin RN * Telephone Encounter - Fabian Mcmullen MD - 11/20/2023 12:17 PM EST Let patient know based on her last exam I would not place on a new course of antibiotics. Advise her to finish the prednisone and keep her appt with ENT. Please fax a copy of patient's Snap Shot to [facility]. * Telephone Encounter - Corrie Koroma RN - 11/20/2023 8:39 AM EST Patient calls and wanted provider to know [...] of C-diff? Please review and advise, Corrie Koroma RN documented in this encounterRegency [facility]02-02-2024 Instructions* Patient Instructions* Fabian Mcmullen MD - 11/16/2023 10:[address] Mcmullen an update on how tour ear feels on Sunday 11/19 or 11/20. documented in this encounterRegency [facility]02-02-2024 History of Present illness Narrative* Fabian Mcmullen MD - 11/16/2023 10:14 AM EST Chief Complaint Patient presents with: Follow Up HPI Laurence Koroma is a 73 year old female who [...] List BP Controlled (<130/80) Never done Covid-19 Vaccine() due on 06/15/2023 Advance Directive Discussion due [...] an antihistamine such as Claritin for a fewweeks. 2. Non-recurrent acute serous otitis media of left ear - ICD9: 381.01, ICD10: H65.02 - see about Requested Prescriptions Signed Prescriptions Disp Refills methylPREDNISolone (MEDROL, JAEL,) 4 mg Dose-Pack 21 tablet 0 Sig: Follow dosing instructions, take with food. F/u routine of if not resolving. Patient to update me early next week. Fabian Mcmullen MD documented in this encounterRegency [facility]11-21-2023 Miscellaneous Notes* Telephone Encounter - Fabian Mcmullen MD - 09/04/2023 2:59 PM EST The following approved medication requests have been transmitted electronically. Requested Prescriptions Signed Prescriptions Disp Refills Potassium Chloride (KLOR-CON 8) 8 mEq tablet 180 tablet 1 Sig: Take 1 tablet by mouth two times a day. Authorizing Provider: FABIAN MCMULLEN MD * Telephone Encounter - Marianela Petersen Ma - 09/04/2023 2:27 PM EST Letter mailed to provider and patient that brand Micro-K not covered and needs switched to klor-con8. Rx pended please send to pharmacy, patient was notified on vm. Marianela Petersen Ma documented in this encounterRegency [facility]11-09-2023 Miscellaneous Notes* Telephone Encounter - Susan Schneider Ma - 08/23/2023 10:20 AM EST Message left on pt identified VM that scripts refilled. Susna Schneider Ma * Telephone Encounter - Fabian Mcmullen MD - 08/23/2023 10:17 AM EST Et patient know scripts have been sent to [facility]. The following approved medication requests have been [...] a day. Authorizing Provider: FABIAN MCMULLEN MD * Telephone Encounter - [place] Dionna Allan - 08/23/2023 10:05 AM EST Laurence Koroma is calling Fabian Mcmullen MD today to change her Pharmacy due to problems with 2 medications at current Pharmacy: potassium chloride SR (MICRO-K) 8 mEq cpER zolpidem (AMBIEN) 10 mg Please send [facility], please send today. Patient has been identified by name and birthdate. Duration of symptoms: N/A Person calling: self Call patient at: at home [phone] (home) [phone] (cell) Was an appointment scheduled: No Closing statement: Results or non-symptom based questions: Thank you for calling [facility], your call will be returned within the next business day. Dionna Allan documented in this encounterRegency Hospital [facility]10-25-2023 Instructions* Patient Instructions* Fabian Mcmullen MD - 08/08/2023 5:15 PM EDT Consider getting the RSV vaccine from a local pharmacy. Consider getting a Tdap for tetanus update at the health dept. Please get lab done on or after prior to your next visit. documented in this encounterRegency [facility]10-25-2023 History of Present illness Narrative* Fabian Mcmullen MD - 08/08/2023 4:47 PM EDT Medicare Yearly Visit Medical B eligibilty date [...] Topics Alcohol use: No Drug use: No Laurence denies regular aerobic exercise. She watches her diet for sodium, low fat and low cholesterol most of the time. List of current specialists seen: - Dr. Osborn (vascular) - Dr. Scott End of Live Planning discussed including patients advanced directive wishes: Yes I am willing to follow Laurence's advanced directives. PHQ-2 / Depression screen No [...] 84 Resp 16 Ht 151.1 cm (4' 11.5) Wt 42.6 kg (94 lb) BMI 18.67 kg/m Alert and oriented X 3: YES Body mass index is 18.67 kg/m . Visual acuity: seeing optho See below ASSESSMENT/PLAN: 72 year old female The following prevention plan was discussed during the office visit and provided to the patient: See below Fabian Mcmullen MD Chief Complaint Patient presents with: Medicare Wellness Exam HPI Laurence Koroma is a 72 year old female who presents here today for Chronic Medical Conditions. andMedicare Annual Visit. Patient with Hx of HTN, insomnia, elevated A1c, allergic rhinitis, cold sores as well as those reviewed and addressed below and in ROS. Patient sees [facility] - last visit 08/07/2023. Had [...] 84 Resp 16 Ht 151.1 cm (4' 11.5) Wt 42.6 kg (94 lb) BMI 18.67 [...] symmetric. Sensation to light touch and crainal nerves2-12 intact.. Health Maintenance List RSV Vaccine(1 - [...] Negative Ketones, Urine Negative Trace (A) Specific [place], Ur 1.005 - 1.030 1.020 Hemoglobin/Blood,Ur Negative [...] diet of 1000 mg/day for under 50, 1200- 1500 mg/day for 50+ - Patient was counseled [id number] by myself (the billing provider) for the [...] which included preparing to see the patient, eeua-[id number] patient care, completing clinical documentation, performing a medically appropriate examination, counseling and educating the patient/family/caregiver and ordering medications, tests, or procedures. Patient was asked at end of visit if they had any questions or input regarding the plan of care we had discussed. Fabian Mcmullen MD documented in this encounterRegency [facility]10-25-2023 History of Present illness Narrative* Elina Mckenzie LPN - 08/08/2023 7:59 AM EDT Scan on 08/07/2023 4:47 PM by ProviderYuly PA-C: CT Scan Scan on 08/07/2023 3:44 PM by ProviderYuly PA-C: CT Scan documented in this encounterRegency [facility]10-20-2023 History of Present illness Narrative* Shital Hatfield RT(R) - 08/03/2023 12:10 PM EDT Radiology Service Progress Note PATIENT NAME: Laurence Koroma DATE OF SERVICE: August 03, 2023 TIME: 12:08 PM PATIENT IDENTITY VERIFICATION COMPLETED USING TWO (2) IDENTIFIERS: Name and Date of confirmedby patient verbally. FALL SCREENING: Has the patient [...] RT Roxanna(R) August 03, 2023 12:08 PM documented in this encounterRegency [facility]10-20-2023 History of Present illness Narrative* Daniela Mcdowell PA-C - 08/03/2023 12:00 PM EDT This note was created using AutoRef.comriter. Subjective Laurence Koroma is a 72 year old female. HPI Presents with cough over the past 3 weeks. She states she gets in coughing fits and just cannot stop. She denies any history of asthma or COPD. She is not a smoker. She also has had some nasal congestion. She does have a history of a balloon sinuplasty previously. No fever. No diarrhea or vomiting.She has tried multiple ayrq-nng-dxcekpq cough medications without relief. Review of Systems [...] times a day for 7 days. 14 tablet0 Current Facility-Administered Medications Medication Dose Route Frequency [...] to add to avoid any unneeded antibiotic. Daniela Mcdowell PA-C documented in this encounterRegency [facility]09-27-2023 History of Present illness Narrative* Elina Mckenzie LPN - 07/11/2023 11:41 AM EDT Scan on 07/11/2023 11:25 AM by Provider, RISHABH Emery: Consultation - Cardiology documented in this encounterRegency [facility]09-12-2023 Miscellaneous Notes* Telephone Encounter - Elina Mckenzie LPN - 06/26/2023 10:34 AM EDT Pt notified of same. Pt realized she had an old bottle at home as well as a new bottle so she should have refills left. Elina Mckenzie LPN * Telephone Encounter - Fabian Mcmullen MD - 06/25/2023 5:37 PM EDT Let patient know she is not due for a refill of her Ambien any sooner then 08/08/2023. * Telephone Encounter - Sol Lowery MA - 06/25/2023 10:09 AM EDT Patient has been identified by name and date of : Yes Requested Prescriptions Pending Prescriptions Disp Refills zolpidem (AMBIEN) 10 mg 90 tablet 1 Sig: Take 1 tablet by mouth at bedtime as needed for up to 180 days. FOR INSOMNIA RX INSTRUCTIONS: Patient aware RX will be sent to pharmacy. No need to notify patient. Sol Lowery MA Rajwinder 04/2023 Nov 07/2023 Last refill; 01/2023 * Telephone Encounter - Nicky Prajapati - 06/25/2023 9:45 AM EDT Patient is requesting 90 days. Patient has [...] and advise. Nicky Prajapati documented in this encounterRegency [facility]08-31-2023 Miscellaneous Notes* Telephone Encounter - Abimbola Palomares - 06/14/2023 8:37 AM EDT Patient has been identified by name and [...] and advise. Abimbola Allan documented in this encounterRegency [facility]08-01-2023 Miscellaneous Notes* Telephone Encounter - Chey Ponce Cma - 05/15/2023 9:21 AM EDT Forms faxed to number given. Patient notified Chey Ponce Cma * Telephone Encounter - Katie Chaudhari APRN.CARDROOM MANAGER - 05/15/2023 9:16 AM EDT Forms completed and returned to [place] to be faxed. * Telephone Encounter - Chey Ponce Cma - 05/14/2023 3:33 PM EDT Type of form: Short-term Disability Form received via fax When form is completed, Fax form to [phone] Form has been forwarded to Nurse Practictioner: Katie Rameshswisher Lesley documented in this encounterRegency [facility]07-31-2023 Miscellaneous Notes* Telephone Encounter - Fabian Mcmullen MD - 05/14/2023 7:38 PM EDT Addressed at office visit today. * Telephone Encounter - Osmar Bradford RN - 05/14/2023 8:41 AM EDT Patient reports her short term disability papers [...] and admitted to Hospital from 04-27 to 18 with diverticulosis and c-diff. Has been taking vancomycin. Jayson rashid needs to receive fax today. * Telephone Encounter - Krsiten Griffin RN - 05/11/2023 9:22 AM EDT Pt called in and reports she had [...] they also need a stool negative for c.Diff. Please call Pt and advise. documented in this encounterRegency [facility]07-31-2023 History of Present illness Narrative* Katie Chaudhari APRN.CARDROOM MANAGER - 05/14/2023 10:32 AM EDT Chief Complaint Patient presents with: Follow Up HPI Laurence Koroma is a 72 year old female who [...] is still having some discomfort and continuing tohave soft stools. Katie Chaudhari APRN.CARDROOM MANAGER documented in this encounterRegency [facility]07-14-2023 History of Present illness Narrative* Marianela Petersen Ma - 04/27/2023 11:46 AM EDT Scan on 04/27/2023 9:38 AM by Provider, External, RISHABH: Consultation - Emergency Medicine Scan on 04/27/2023 11:11 AM by ProviderYuly PA-C Scan on 04/27/2023 8:23 AM by ProviderYuly PA-C: CT Scan documented in this encounterRegency [facility]07-14-2023 Discharge summary Author Tavon Rodriguez [facility] April 27, 2023 9:02am Note Date/Time April 27, 2023 5:58 am [facility] Medical Records Department [address] [place] [address] Emergency Department Summary 04/27/23 MR#: [id number] Acct: [id number] Name: LAURENCE KOROMA Rep #:[id number] : 1950 72 From: Kaye Gardner MD PCP: Dr. Fabian Mcmullen MD Status:REG ER Location: ED HPI <Dr. Kaye Gardner MD - Last Filed: 04/27/23 07:02> History of Present Illness Chief Complaint: Hypotension Informant: patient Narrative Narrative: Patient presents via EMS secondary to dizziness and near syncope. Patient was seen in the ER last week with abdominal pain. She was diagnosed with diverticulitis and started on Augmentin. Shared decision making was made as thepatient does have a history of C. difficile. Patient states that she has been trying to follow a clear liquid diet with everything he is running through her and she is having large amounts of diarrhea. She denies fever or chills. She has mild pain to the right lower quadrant. She denies having fever or chills. She states she is still urinating. Tonight she felt very lightheaded and as if her vision was going black and that prompted her to call EMS. EMS notes on arrival her initial blood pressure was 60/40. [facility] <Dr. Kaye Gardner MD - Last Filed: 04/27/23 07:02> [facility] Medical History Aortic insufficiency Chronic back pain Dehydration Diarrhea Elevated plasma metanephrines Essential hypertension Fatigue LALO (generalized anxiety disorder) Gastroenteritis Hemorrhoid History of Clostridium difficile colitis Insomnia Nausea Osteoarthritis Osteoporosis Sleep apnea Syncope Weight loss Home Medications multivitamin 1 ea PO DAILY 10/11/15 [History Last Taken Unknown] hydrochlorothiazide 12.5 mg capsule 12.5 mg PO QDAY 02/14/18 [History Last Taken Unknown] potassium chloride 20 mEq tablet,extended release 8 meq PO BID 02/14/18 [History Last Taken Unknown] jatindera leaf (bulk) 100 % powder 1 g miscellaneous DAILY 11/22/20 [History Last Taken Unknown] calcium carbonate 600 mg calcium (1,500 mg) tablet 600 mg PO BID 03/15/23 [History Last Taken Unknown] acyclovir 800 mg tablet 800 mg PO DAILY FEVER BLISTER 04/18/23 [History Last Taken Unknown] alendronate 70 mg tablet 70 mg PO QWEEK 04/18/23 [History Last Taken Unknown] glucosamine 750 ms-dkwtvjuqlp-zrg no.1 625 mg-C 30 ag-vntl-ikhf tablet 1 tab PO BID 04/18/23 [History Last Taken Unknown] lisinopril 40 mg tablet 40 mg PO DAILY 04/18/23 [History Last Taken Unknown] amoxicillin 875 mg-potassium clavulanate 125 mg tablet 875 mg (0.875 x 875-125 mg) PO Q12H #20 TABLETS 04/19/23 [Rx Last Taken Unknown] hydrocodone-acetaminophen 5-325mg 5mg-325mg 1 tab PO Q6H PRN PRN Pain 3 days #10TABLETS 04/19/23 [Rx Last Taken Unknown] ondansetron 4 mg disintegrating tablet 4 mg PO Q8H PRN PRN Nausea #10 tabs 04/19/23 [Rx Last Taken Unknown] Allergy/AdvReac Type Severity Reaction Status Date / Time Sulfa (Sulfonamide Allergy Intermediate Hives Verified 04/27/23 05:52 Antibiotics) azithromycin AdvReac Nausea Verified 04/27/23 05:52 [From Zithromax Z-Jael] Family History Mother Hypertension Father Heart disease Cancer skin cancer Grandmother Heart disease CVA (cerebral vascular accident) Surgical History History of colonoscopy History of tonsillectomy Social History Smoking Status: Never smoker alcohol intake: never substance use type: does not use ROS <Dr. Kaye Gardner MD - Last Filed: 04/27/23 07:02> ROS ED Constitutional Constitutional ED: Denies chills or fever(s) Eyes Eyes: Denies change in vision or discharge from eye(s) ENT ENT ED: Denies discharge from eye(s), rhinorrhea or sore throat Cardiovascular Cardiovascular: Denies chest pain or palpitations Respiratory/Chest Respiratory/Chest: Denies cough or dyspnea Gastrointestinal Gastrointestinal: Reports abdominal pain and diarrhea; Denies vomiting Genitourinary Genitourinary ED: Denies dysuria Musculoskeletal Musculoskeletal: Denies back pain or extremity pain Integumentary Denies Abrasions or rash Neurologic Neurologic: Reports weakness; Denies headache(s) Psychiatric Psychiatric: Denies anxiety or depression Allergic/Immunologic Allergic/Immunologic ED: Denies lip swelling or urticaria EXAM <Dr. Kaye Gardner MD - Last Filed: 04/27/23 07:02> Physical Exam Const Vital Signs: 04/27/23 05:45 04/27/23 05:49 04/27/23 06:23 Temperature 97.0 F L Temperature Source Temporal Pulse Rate 79 85 Respiratory Rate 20 H 16 Respiratory Effort Normal Respiratory Pattern Normal Blood Pressure 105/46 L 115/46 L Blood Pressure Mean 65 69 Pulse Ox 98 98 Oxygen Delivery Method Room Air Room Air Positive well nourished and well developed General Appearance ED: well developed HEENT Reports dry mucous membranes Mouth ED: Yes dry mucous membranes Mouth: dry mucous membranes Eyes EOMs intact bilaterally Neck no lymphadenopathy Chest Wall inspection of chest normal and palpation of chest normal Resp normal respiratory effort and clear to auscultation bilaterally Cardio regular rate and regular rhythm GI GI Narrative: Mild lower abdominal tenderness palpation. No guarding or rebound. Hypoactive bowel sounds are present. Extremity normal to inspection Neuro oriented x3 Neuro Narrative: No focal neurologic deficits. Psych mental status grossly normal Skin no rashes or lesions noted <Dr. Tavon Rodriguez DO - Last Filed: 04/27/23 09:02> Physical Exam Const Vital Signs: 04/27/23 05:45 04/27/23 05:49 04/27/23 06:23 Temperature 97.0 F L Temperature Source Temporal Pulse Rate 79 85 Respiratory Rate 20 H 16 Respiratory Effort Normal Respiratory Pattern Normal Blood Pressure 105/46 L 115/46 L Blood Pressure Mean 65 69 Pulse Ox 98 98 Oxygen Delivery Method Room Air Room Air [facility] <Dr. Kaye Gardner MD - Last Filed: 04/27/23 07:02> [facility] Narrative Medical decision making narrative: IV fluids have been initiated by EMS. At time of my initial evaluation her systolic blood pressure is around 120. Additional IV fluid bolus was ordered. Labwork obtained to evaluate for leukocytosis, anemia, and electrolyte derangement. CT scan of the abdomen pelvis ordered to evaluate for progression of diverticulitis. Stool studies ordered given the patient's copious diarrhea and history of C. difficile. Lab Data Labs: Laboratory Results - last 24 hr 04/27/23 06:17 WBC 17.0 H RBC 4.12 L Hgb 12.4 Hct 38.4 MCV 93.2 MCH 30.1 MCHC 32.3 RDW Std Deviation 45.3 H RDW Coeff of Pat 13.2 Plt Count 266 MPV 10.2 Immature Gran % (Auto) 0.500 Neut % (Auto) 74.8 H Lymph % (Auto) 15.0 L [place] % (Auto) 9.2 Eos % (Auto) 0.1 Baso % (Auto) 0.4 Absolute Neuts (auto) 12.7 H Absolute Lymphs (auto) 2.54 Nucleated RBC % 0 Differential Comment SCANNED Diff Path Review May foll Sodium 133 L Potassium 3.7 Chloride 101 Carbon Dioxide 17.0 L Anion Gap 15 BUN 13 Creatinine 1.20 H Estim Creat Clear Calc 29.22 Est GFR (MDRD) Af Amer 56 L Est GFR (MDRD) Non-Af 47 L BUN/Creatinine Ratio 10.8 Glucose 70 L Calcium 8.9 Total Bilirubin 0.50 Direct Bilirubin 0.14 AST 27 ALT 24 Alkaline Phosphatase 72 Troponin I High Sens 6 Total Protein 6.6 Albumin 2.9 L Globulin 3.7 Lipase 18 Radiography Diagnostic Testing: Clinical Impression(s) from Imaging Studies Abdomen/Pelvis CT 04/27/23 05:54 IMPRESSION: Mild colitis 1. There is mild thickening of the wall of the sigmoid colon. A few diverticula of the sigmoid colon are redemonstrated and are not inflamed. Unremarkable remaining aspects of the colon. Not The appendix is visualized and appears normal. 2. Small amount of abdominal and pelvic ascites. Electronically Signed: Reilly Klein MD at 8:19 EDT , EKG Initial EKG: Attestation: I personally reviewed and interpreted this EKG as follows: Interpretation: Sinus Rhythm (Sinus 82 with no acute ischemia.) Treatment and Re-Evaluation :: Patient systolic blood pressure has remained between 105 and 125 since arrival to the emergency room. CBC reveals white count to be elevated to 17.0. This isincreased when compared to her labs from 1 week ago. Differential reveals 75% neutrophils. Remainder blood work is pending at this time. [facility] and [facility]. <Dr. Tavon Rodriguez, DO - Last Filed: 04/27/23 09:02> [facility] Lab Data Attestation: I reviewed the patient's lab results. Lab results narrative: DBC with mild leukocytosis concerning for systemic inflammation, no significant anemia or thrombocytopenia noted BMP without significant electrolyte abnormalities, there is no anion gap to suggest endorgan hypoperfusion, the patient's carbon dioxide is low and this test would suggest a component of metabolic acidosis there is mild acute kidney injury Lipase is wnl indicating no pancreatic inflammation. LFTs show no evidence of hepatobiliary pathology. Troponin is negative, no evidence of myocardial ischemia Initial EKG with normal sinus rhythm, normal axis, normal intervals, no STEMI Labs: Laboratory Results - last 24 hr 04/27/23 06:17 WBC 17.0 H RBC 4.12 L Hgb 12.4 Hct 38.4 MCV 93.2 MCH 30.1 MCHC 32.3 RDW Std Deviation 45.3 H RDW Coeff of Pat 13.2 Plt Count 266 MPV 10.2 Immature Gran % (Auto) 0.500 Neut % (Auto) 74.8 H Lymph % (Auto) 15.0 L [place] % (Auto) 9.2 Eos % (Auto) 0.1 Baso % (Auto) 0.4 Absolute Neuts (auto) 12.7 H Absolute Lymphs (auto) 2.54 Nucleated RBC % 0 Differential Comment SCANNED Diff Path Review May foll Sodium 133 L Potassium 3.7 Chloride 101 Carbon Dioxide 17.0 L Anion Gap 15 BUN 13 Creatinine 1.20 H Estim Creat Clear Calc 29.22 Est GFR (MDRD) Af Amer 56 L Est GFR (MDRD) Non-Af 47 L BUN/Creatinine Ratio 10.8 Glucose 70 L Calcium 8.9 Total Bilirubin 0.50 Direct Bilirubin 0.14 AST 27 ALT 24 Alkaline Phosphatase 72 Troponin I High Sens 6 Total Protein 6.6 Albumin 2.9 L Globulin 3.7 Lipase 18 Radiography Diagnostic Testing: Clinical Impression(s) from Imaging Studies Abdomen/Pelvis CT 04/27/23 05:54 IMPRESSION: Mild colitis 1. There is mild thickening of the wall of the sigmoid colon. A few diverticula of the sigmoid colon are redemonstrated and are not inflamed. Unremarkable remaining aspects of the colon. Not The appendix is visualized and appears normal. 2. Small amount of abdominal and pelvic ascites. Electronically Signed: Reilly Klein MD at 8:19 EDT Reading Location ID and State: [facility] / [place] , Service support , Treatment and Re-Evaluation :: Patient systolic blood pressure has remained between 105 and 125 since arrival to the emergency room. CBC reveals white count to be elevated to 17.0. This isincreased when compared to her labs from 1 week ago. Differential reveals 75% neutrophils. Remainder blood work is pending at this time. Patient be signed out to oncomingphysician for further evaluation and disposition. Patient was received from Dr. Quinteros at 7 AM No acute events under my care. Patient made hemodynamically stable. Repeat abdominal exam is benign. CT scan showed no evidence of perforated diverticula. Labs consistent with dehydration. Likely patient has C. difficile. Sent ova parasites, stool culture and C. difficile. Given the patient advanced age, hypotension multiple recent ED visits and inability to take oral antibiotics will admit for observation, hydration and further evaluation. Discussed the case with Dr. Guan. Discharge Plan Dx/Rx/DC Orders Clinical Impression: Near syncope, Hypotension, EVELYN (acute kidney injury) Disposition Disposition: Acute Care [facility] What to do if you have Problems For any increased pain, shortness of breath, bleeding, nausea or vomiting, chestpain, or any unexpected problems, contact your Primary Care Provider. Call [facility] ([phone]) or report to the closest Emergency Room. Call 911 if necessary. 04/27/23 07 <Electronically signed by Kaye Gardner MD> Cosigner Signature (if applicable): 04/27/23901 <Electronically signed by Tavon Rodriguez DO> CC: Dr. Fabian Mcmullen MD ~ Signed [facility] Work Phone: [phone]) 224-398807-12-2023 Miscellaneous Notes* Telephone Encounter - Angela Stapleton LPN - 04/25/2023 4:05 PM EDT Pt notified of response & voiced understanding. Angela Stapleton LPN * Telephone Encounter - Fabian Mcmullen MD - 04/25/2023 3:02 PM EDT Possibly another 2-5 days. The fact it has improved is good. * Telephone Encounter - Liyah Gaming RN - 04/25/2023 1:46 PM EDT Patient calling to say she has taken [...] diarrhea? Liyah Gaming, RN documented in this encounterRegency [facility]07-10-2023 Instructions* Patient Instructions* Fabian Mcmullen MD - 04/23/2023 2:02 PM EDT Ok to take imodium AD one tab every 8 hrs as needed. Stop if feel constipated. documented in this encounterRegency Hospital [facility]07-10-2023 History of Present illness Narrative* Fabian Mcmullen MD - 04/23/2023 1:27 PM EDT Chief Complaint Patient presents with: ED Follow-up HPI Laurence Koroma is a 72 year old female who presents here today for ER Follow Up.. Office visit - Er follow up Patient was in [facility] for abdomenal pain/dehydration/felt like she was going to pass out so she calledthe squad. Had CT that showed diverticulosis with [...] BP Cuff Size: Regular Adult) Pulse 89 Temp36.9 C (98.5 F) Resp 18 Wt 43.1 [...] constipated. Fabian Mcmullen MD documented in this encounterRegency Hospital [facility]07-07-2023 History of Present illness Narrative* Marianela Petersen Ma - 04/20/2023 9:38 AM EDT Scan on 04/19/2023 1:01 PM by External Provider, PAJanetteC: Consultation - Vascular Medicine/Vascular Surgery documented in this encounterRegency Hospital [facility]07-06-2023 History of Present illness Narrative* Sumi Botello LPN - 04/19/2023 11:50 AM EDT Scan on 04/19/2023 9:31 AM by External Provider, PAJanetteC: CT Scan Scan on 04/19/2023 10:19 AM by External Provider, PA-C: Consultation - Emergency Medicine documented in this encounterRegency Hospital [facility]07-06-2023 Discharge summary Author Keenan Bowser [facility] April 19, 2023 10:11am Note Date/Time April 19, 2023 7:15a m [facility] Medical Records Department [address] [place] [address] Emergency Department Summary 04/19/23 MR#: [id number] Acct: [id number] Name: LAURENCE KOROMA Rep #:[id number] : 1950 72 From: Keenan Bowser MD PCP: Dr. Fabian Mcmullen MD Status:REG ER Location: ED HPI History of Present Illness Chief Complaint: Abd Pain Informant: patient Narrative Narrative: Patient presents with a nominal pain. Patient states she felt fine until shortly after lunch yesterday. She just had noodles peas and carrots which she has commonly. She also had a chocolate chip cookie made by somebody at home. She states sometimes she does not tolerate gluten and chocolate but sometimes she will. After eating the cookie she has had abdominal discomfort. She describes a diffuse area but all below the umbilicus. She denies nausea but states that she has not thrown up but feels sort of ill like she could. I think this likely is some mild nausea. She has also had diarrhea. It is mucousy white and has had a few spots of blood in it. She is not on any blood thinners. She denies any history of colitis but has hadC. difficile colitis after antibiotics. But she has not had antibiotics recently. Vancomycin took care of that for her. She denies any abdominal surgeries. She has had colonoscopies. She knows that it showed she had C. difficile colitis but does not recall if it showed diverticulitis. No urinary symptoms. No back pain. She was also concerned because her blood pressure is normally about 150 and it was about 115-119 by EMS. She is also concerned that maybe the heat yesterday because of this. When she got into her car she startedlet the air conditioning run before she got in it but she heard on the news thatthe heat can cause problems with your digestive system. She was also concerned that she had some redness of her feet yesterday in the heat even though it is gone. They were not swollen. [facility] Medical History (Updated 04/19/23 @ 10:[address] Keenan Bowser MD) Aortic insufficiency Chronic back pain Dehydration Diarrhea Elevated plasma metanephrines Essential hypertension Fatigue LALO (generalized anxiety disorder) Gastroenteritis Hemorrhoid History of Clostridium difficile colitis Insomnia Nausea Osteoarthritis Osteoporosis Sleep apnea Syncope Weight loss Home Medications multivitamin 1 ea PO DAILY 10/11/15 [History Last Taken Unknown] hydrochlorothiazide 12.5 mg capsule 12.5 mg PO QDAY 02/14/18 [History Last Taken Unknown] potassium chloride 20 mEq tablet,extended release 8 meq PO BID 02/14/18 [History Last Taken Unknown] gymnema leaf (bulk) 100 % powder 1 g miscellaneous DAILY 11/22/20 [History Last Taken Unknown] calcium carbonate 600 mg calcium (1,500 mg) tablet 600 mg PO BID 03/15/23 [History Last Taken Unknown] acyclovir 800 mg tablet 800 mg PO DAILY FEVER BLISTER 04/18/23 [History Last Taken Unknown] alendronate 70 mg tablet 70 mg PO QWEEK 04/18/23 [History Last Taken Unknown] glucosamine 750 dq-sqvsvpyzty-oim no.1 625 mg-C 30 ae-yduq-rlkg tablet 1 tab PO BID 04/18/23 [History Last Taken Unknown] lisinopril 40 mg tablet 40 mg PO DAILY 04/18/23 [History Last Taken Unknown] amoxicillin 875 mg-potassium clavulanate 125 mg tablet 875 mg (0.875 x 875-125 mg) PO Q12H #20 TABLETS 04/19/23 [Rx Last Taken Unknown] hydrocodone-acetaminophen 5-325mg 5mg-325mg 1 tab PO Q6H PRN PRN Pain 3 days #10TABLETS 04/19/23 [Rx Last Taken Unknown] ondansetron 4 mg disintegrating tablet 4 mg PO Q8H PRN PRN Nausea #10 tabs 04/19/23 [Rx Last Taken Unknown] Allergy/AdvReac Type Severity Reaction Status Date / Time Sulfa (Sulfonamide Allergy Intermediate Hives Verified 04/19/23 06:34 Antibiotics) azithromycin AdvReac Nausea Verified 04/19/23 06:34 [From Zithromax Z-Jael] Family History (Updated 04/19/23 @ 09:18 by Susan Orosco) Mother Hypertension Father Heart disease Cancer skin cancer Grandmother Heart disease CVA (cerebral vascular accident) Surgical History (Updated 04/19/23 @ 09:23 by Susan Orosco) History of colonoscopy History of tonsillectomy Social History Smoking Status: Never smoker alcohol intake: never substance use type: does not use ROS ROS ED ROS Narrative A complete review of systems was performed and is negative except as documented in the history of present illness. Some specific details below. Constitutional: No recent fevers but she might have had chills. EYE: No visual complaints or pain. ENT: No difficulty swallowing. No swelling. No pain. CV: No chest pain or palpitations. Respiratory: No dyspnea. No hemoptysis. No difficulty taking breaths. GI: Please see history of present illness. : No frequency dysuria or hematuria. Musculoskeletal: No recent trauma. No pains. Skin: No rash. Nondiaphoretic. Neuro: No weakness or numbness. Endocrine: No polyuria or polydipsia. EXAM Physical Exam Narrative Exam Narrative: CONSTITUTIONAL: Patient is nontoxic in appearance. The patient looks comfortable. HEENT: No notable trauma. Mucous membranes minimally dry. No sinus tenderness. No indication of pain with swallowing. EYES: No conjunctival injection. No proptosis. CARDIOVASCULAR: Regular rate. Regular rhythm. No notable murmur. No JVD. RESPIRATORY: No respiratory distress. Breathing is unlabored. No wheezes. No rhonchi. No rales. No pain with a deep breath. GASTROINTESTINAL: Not distended. Bowel sounds are normal. She does have some mild tenderness near the left lower quadrant even though she describes the pain as both sides she is only tender toward the left. There is no guarding rebound or mass noted. GENITOURINARY: No tenderness over the bladder. No CVA tenderness. MUSCULOSKELETAL: Atraumatic. No peripheral edema. No cord. No tenderness along the deep venous system. No asymmetry. NEUROLOGICAL: Patient is alert and appropriate. No focal deficit noted. SKIN: No noted rashes. No diaphoresis. PSYCHIATRIC: Patient is calm. Mood is appropriate. Const Vital Signs: 04/19/23 06:31 Temperature 98.7 F Temperature Source Temporal Pulse Rate 86 Respiratory Rate 18 Blood Pressure 143/60 H Blood Pressure Mean 87 Pulse Ox 97 Oxygen Delivery Method Room Air MDM MDM MDM Narrative Medical decision making narrative: My independent interpretation the patient's CT scan does show signs of sigmoid region diverticulitis. Final reading is pending. Patient's CBC shows elevated white count at 14.9. Normal hemoglobin and platelets. Patient's electrolytes show no marked abnormalities. She does have mild elevation of the glucose at 150 that can be followed. Patient's liver function test showed no acute process. Final CT reading does show findings consistent with diverticulitis. I had a long discussion again with the patient. I explained that there are newer studies stating that you can treat diverticulitis that is mild with just clear liquid diet slow advancing. We normally use antibiotics here. Patient would like to start antibiotics. I explained this does have a higher risk of C.difficile colitis but its not an unreasonable plan. She should still follow theclear liquid diet for at least a couple days. I will write for some pain meds. I will write for nausea medication. She states she has a very sensitive person and is very sensitive to all meds. I explained that she can use pain meds and nausea meds only on a as needed basis. We discussed reasons to return. I also explained she should follow-up with her physician to make sure she is improving. Lab Data Attestation: I reviewed the patient's lab results. Labs: Laboratory Results - last 24 hr 04/19/23 04/19/23 06:45 08:30 WBC 14.9 H RBC 4.14 L Hgb 12.6 Hct 38.0 MCV 91.8 MCH 30.4 MCHC 33.2 RDW Std Deviation 45.5 H RDW Coeff of Pat 13.4 Plt Count 242 MPV 10.9 Immature Gran % (Auto) 0.500 Neut % (Auto) 77.3 H Lymph % (Auto) 12.8 L [place] % (Auto) 9.1 Eos % (Auto) 0.1 Baso % (Auto) 0.2 Absolute Neuts (auto) 11.5 H Absolute Lymphs (auto) 1.90 Nucleated RBC % 0 Sodium 136 Potassium 3.9 Chloride 104 Carbon Dioxide 24.0 Anion Gap 8 BUN 19 H Creatinine 0.96 Estim Creat Clear Calc 36.93 Est GFR (MDRD) Af Amer 73 Est GFR (MDRD) Non-Af 60 BUN/Creatinine Ratio 19.8 Glucose 150 H Calcium 8.9 Total Bilirubin 0.70 AST 18 ALT 16 Alkaline Phosphatase 87 Total Protein 7.2 Albumin 3.3 Globulin 3.9 Albumin/Globulin Ratio 0.8 L Urine Color Yellow Urine Clarity Sl. Cloudy Urine pH 7.0 Ur Specific [place] 1.010 Urine Protein 15 H Urine Glucose (UA) Normal Urine Ketones Negative Urine Occult Blood 10 H Urine Nitrite Negative Urine Bilirubin Negative Urine Urobilinogen Normal Ur Leukocyte Esterase 25 H Urine RBC 0 SEEN Urine WBC 0-5 SEEN Ur Squamous Epith Cells 0 SEEN Urine Bacteria 0 SEEN Hyaline Casts 0-5 SEEN Urine Mucus 0 SEEN Radiography Diagnostic Testing: Clinical Impression(s) from Imaging Studies Abdomen/Pelvis CT 04/19/23 07:11 IMPRESSION: Edematous changes seen in the sigmoid colon. Sigmoid diverticulosis and mild degree of diverticulitis. Small amount of fluid is seen in the cul-de-sac. Fibroid uterus. Electronically Signed: Chris Mejia MD at 9:25 EDT , Discharge Plan Triage Chief Complaint: Abd Pain ED Provider: Keenan Bowser Dx/Rx/DC Orders Clinical Impression: Diverticulitis, Hyperglycemia, Leukocytosis Instructions: ED Diverticulitis Prescriptions: New hydrocodone-acetaminophen [hydrocodone-acetaminophen] 5-325 mg tablet 1 tab PO Q6H PRN PRN (Reason: Pain) 3 Days Qty: 10 0RF ondansetron [ondansetron] 4 mg tablet,disintegrating 4 mg PO Q8H PRN PRN (Reason: Nausea) Qty: 10 0RF amoxicillin-pot clavulanate [amoxicillin-pot clavulanate] 875-125 mg tablet 875 mg PO Q12H Qty: 20 0RF No Action potassium chloride 20 mEq tablet extended release 8 meq PO BID hydrochlorothiazide 12.5 mg capsule 12.5 mg PO QDAY calcium carbonate 600 mg calcium (1,500 mg) tablet 600 mg PO BID alendronate 70 mg tablet 70 mg PO QWEEK acyclovir 800 mg tablet 800 mg PO DAILY lisinopril 40 mg tablet 40 mg PO DAILY wswcaget-vwdw-xzk4-C-joan-bosw 750-625-30 mg tablet 1 tab PO BID Rx Instructions: give after food/meal multivitamin 1 EACH tablet 1 ea PO DAILY Patient Comments: supplement gymnema leaf (bulk) 1 GM powder 1 g MC DAILY Primary Care Provider: Fabian Mcmullen Referrals: Fabian Mcmullen MD [Primary Care Provider] - 3-5 Days Disposition Disposition: Home, Self Care What to do if you have Problems For any increased pain, shortness of breath, bleeding, nausea or vomiting, chestpain, or any unexpected problems, contact your Primary Care Provider. Call [facility] ([phone]) or report to the closest Emergency Room. Call 911 if necessary. 04/19/23 1011 <Electronically signed by Keenan Bowser MD> Cosigner Signature (if applicable): CC: Dr. Fabian Mcmullen MD ~ Signed [facility] Work Phone: 1(620) 876-741706-05-2023 History of Present illness Narrative* Sol Lowery MA - 03/19/2023 1:45 PM EDT Scan on 03/15/2023 2:21 PM by External Provider, PAJanetteC: Consultation - Vascular Medicine/Vascular Surgery Scan on 03/15/2023 4:10 PM by External Provider, RISHABH: Chemistry Sol Lowery MA documented in this encounterRegency Hospital [facility]05-16-2023 History of Present illness Narrative* Elena Hayward RT(R) - 02/27/2023 3:00 PM EDT Radiology Service Progress Note PATIENT NAME: Laurence Koroma DATE OF SERVICE: February 27, 2023 TIME: 2:53 PM PATIENT IDENTITY VERIFICATION COMPLETED USING TWO (2) IDENTIFIERS: Name and Date of confirmedby patient verbally. FALL SCREENING: Has the patient [...] 27, 2023 2:53 PM documented in this encounterRegency Hospital [facility]04-28-2023 History of Present illness Narrative* Constance Klein PA-C - 02/09/2023 12:20 PM EDT Chief Complaint Patient presents with: Recheck: Blood pressure HPI Laurence Koroma is a 72 year old female who [...] month Constance Klein PA-C documented in this encounterRegency Hospital [facility]04-13-2023 Miscellaneous Notes* Telephone Encounter - Peggy Jefferson RN - 01/25/2023 10:00 AM EDT Patient called and notified of results and providers instructions. Patient verbalizes understanding. Peggy Jefferson RN * Telephone Encounter - Katie Chaudhari APRN.CNP - 01/25/2023 9:56 AM EDT Please let patient know her labs are normal. documented in this encounterRegency Hospital [facility]04-12-2023 Instructions* Patient Instructions* Fabian Mcmullen MD - 01/24/2023 4:26 PM EDT Please get labs and urine test done on or after 07/13/2023 prior to your next visit. documented in this encounterRegency Hospital [facility]04-12-2023 History of Present illness Narrative* Fabian Mcmullen MD - 01/24/2023 4:00 PM EDT Chief Complaint Patient presents with: F/U 6 months HPI Laurence Koroma is a 72 year old female who [...] prior. Fabian Mcmullen MD documented in this encounterRegency Hospital [facility]04-04-2023 Instructions* Patient Instructions* Katie Chaudhari APRN.CNP - 01/16/2023 9:49 AM EDT Restart claritin and flonase Encourage good fluid intake, use of warm salt water gargles, and use of throat lozenges. Follow up in 5 days if no improvement in symptoms documented in this encounterRegency Hospital [facility]04-04-2023 History of Present illness Narrative* Katie Chaudhari APRN.CNP - 01/16/2023 9:39 AM EDT Chief Complaint Patient presents with: Sore Throat HPI Laurence Koroma is a 72 year old female who [...] days if symptoms persist or worsen Katie Chaudhari APRN.CARDROOM MANAGER documented in this encounterRegency Hospital [facility]03-21-2023 Miscellaneous Notes* Telephone Encounter - Fabian Mcmullen MD - 01/02/2023 10:41 AM EDT The following approved medication requests have been transmitted electronically. Requested Prescriptions Signed Prescriptions Disp Refills fluticasone (FLONASE) 50 mcg/actuation nasal spray 16 mL 1 Sig: USE 2 SPRAYS IN EACH NOSTRIL ONCE DAILY. RINSE MOUTH AFTER USE. Authorizing Provider: FABIAN MCMULLEN MD * Telephone Encounter - Frank Sharpe LPN - 01/02/2023 8:58 AM EDT Patient has been identified by name and [...] labs/tests for medication: Not applicable Thank you. Frank Sharpe LPN documented in this encounterRegency Hospital [facility]03-09-2023 History of Present illness Narrative* Fabian Mcmullen MD - 12/21/2022 8:24 AM EST Chief Complaint Patient presents with: Sinus Problem HPI Laurence Koroma is a 72 year old female who [...] BP Cuff Size: Regular Adult) Pulse 71 Temp36.8 C (98.3 F) (Tympanic) Resp 14 Wt [...] days. Fabian Mcmullen MD documented in this encounterRegency Hospital [facility]03-03-2023 Miscellaneous Notes* Telephone Encounter - Sol Lowery MA - 12/15/2022 3:56 PM EST Patient notified. Sol Lowery MA * Telephone Encounter - Fabian Mcmullen MD - 12/15/2022 3:20 PM EST Advise patient that I would not make a change in the antibiotic at this time. For over 90% of sore throat amoxil is enough to cover and much lest risk of causing diarrhea and C. Diff infection of thecolon compared to Augmentin. * Telephone Encounter - Margaret Reyes RN - 12/15/2022 11:12 AM EST Pt calling to ask PCP opinion/advise. Pt [...] with same discomfort as when seen in EC-rates ear pain 3 out of10. States having a lot of popping and cracking in right ear and area behind her right ear is verysensitive when she touches it. She states she thinks Augmentin may be more beneficial for her ear infection, due to the clavulanate that is in Augmentin. Needs liquid or chewable form, if ordered. Please advise. Thank you. documented in this encounterRegency Hospital [facility]02-27-2023 History of Present illness Narrative* Nikky Lopez APRN.CARDROOM MANAGER - 12/11/2022 8:23 AM EST Chief Complaint Patient presents with: Sore Throat: X 2/3 days, Exposed to strep. Ear Pain: Right ear HPI Laurence Koroma is a 72 year old female who [...] ill-appearing, non-toxic, alert, in no acute distress, well- hydrated, well nourished. Head: Normocephalic, no masses, lesions, [...] SUSPENSION - GROUP A STREPTOCOCCUS BY PCR Nikky Lopez APRN.CARDROOM MANAGER TEACHING PROVIDER (Physician/PA/MODEL AND PATTERN SUPERVISOR) NOTE OF PERSONAL INVOLVEMENT IN CARE: I have personally seen and examined the patient and performed the medical decision-making components. I have reviewed the Advanced Practice Registered Nurse (MODEL AND PATTERN SUPERVISOR) Student's documentation and verified the findings in the note as written. Any additions or changes are noted in bold/italics. Signature: Nikky Lopez Date: 12/11/2022 Time: 11:34 AM documented in this encounterRegency Hospital [facility]02-27-2023 Miscellaneous Notes* Telephone Encounter - Adrian Brice RN - 12/11/2022 6:10 AM EST Reason for call: Sore throat and right [...] : n/a; postmenopausal Protocols used: Strep Throat [id number]-[id number]-HR documented in this encounterRegency Hospital [facility] East01-30-2023 Miscellaneous Notes* Telephone Encounter - Kaci Kitchen RN - 11/13/2022 10:09 AM EST Patient has been identified by name and date of : Yes Requested Prescriptions Pending Prescriptions Disp Refills hydroCHLOROthiazide (HYDRODIURIL, ESIDRIX) 12.5 mg capsule 90 capsule 1 Sig: Take 1 capsule by mouth once daily. RX INSTRUCTIONS: Patient aware RX will be sent to pharmacy. No need to notify patient. Kaci Kitchen RN documented in this encounterRegency Hospital [facility]01-06-2023 Miscellaneous Notes* Telephone Encounter - Sol Lowery MA - 10/20/2022 9:50 AM EST Prescription was filled on 10/19/2022 Sol Lowery MA * Telephone Encounter - Margaret Allan - 10/20/2022 8:45 AM EST Patient has been identified by name and [...] once daily. Please review and advise. Margaret Allan documented in this encounterRegency Hospital [facility]01-05-2023 Miscellaneous Notes* Telephone Encounter - Constance Klein PA-C - 10/19/2022 1:08 PM EST The following approved medication requests have been transmitted electronically. Requested Prescriptions Signed Prescriptions Disp Refills lisinopril (ZESTRIL,PRINIVIL) 30 mg tablet 30 tablet 5 Sig: TAKE 1 TABLET BY MOUTH EVERY DAY Authorizing Provider: CONSTANCE KLEIN PA-C * Telephone Encounter - Laurence Chang LPN - 10/19/2022 12:50 PM EST Patient phones requesting refills as follows: Requested Prescriptions Pending Prescriptions Disp Refills lisinopril (ZESTRIL,PRINIVIL) 30 mg tablet [Pharmacy Med Name: LISINOPRIL 30 MG TABLET] 30 tablet 0 Sig: TAKE 1 TABLET BY MOUTH EVERY DAY RAJWINDER-09/06/22 Labs-07/26/22 NOV-01/24/22 med filled 09/06/22 Please review and advise. Laurence Chang LPN documented in this encounterRegency Hospital [facility]11-25-2022 Miscellaneous Notes* Telephone Encounter - Amara Capone Ma - 09/08/2022 1:45 PM EST Pt informed, verbalized understanding Amara Capone Ma * Telephone Encounter - Joelle Katz APRN.CARDROOM MANAGER - 09/08/2022 12:33 PM EST No problem. Both rx sent to pharmacy. Tamiflu 2x per day x 5 days. Tessalone perles as needed for cough TID. Thank you, Joelle Katz APRN.CNP The following approved medication requests have been transmitted electronically. Requested Prescriptions Pending Prescriptions Disp Refills oseltamivir (TAMIFLU) 75 mg capsule 10 capsule 0 Sig: Take 1 capsule by mouth twice daily for 5 days. benzonatate (TESSALON PERLES) 100 mg capsule 30 capsule 0 Sig: Take 1 capsule by mouth three times daily as needed for cough. Joelle Katz APRN.SONDRA * Telephone Encounter - Geri Gore LPN - 09/08/2022 10:27 AM EST Patient calling back asking if she can also have Tamiflu rx? Patient said she thinks her symptoms began Sunday, really feeling sick on Sunday. Please advise * Telephone Encounter - Amara Capone Ma - 09/08/2022 10:16 AM EST Pt informed, verbalized understanding. Pt asking if Rx for cough can be sent to [facility] in [place]. Amara Capone Ma * Telephone Encounter - Joelle Katz APRN.CNP - 09/08/2022 7:30 AM EST Please call patient and let her know that COVID was negative. However, influenza A was positive. Please rest and increase fluids as much as possible. If symptoms do not improve within 5 days, please let us know. Thank you, Joelle Katz APRN.CNP documented in this encounterRegency Hospital [facility]11-23-2022 History of Present illness Narrative* Joelle Katz APRN.CNP - 09/06/2022 4:12 PM EST Chief Complaint Patient presents with: Follow Up: On b/p HPI Laurence Koroma is a 71 year old female who [...] and extension, good range of motion, no muscletenderness, reflexes are 2+ and symmetric, motor and [...] starch, healthy oil intake (olive oil), healthy protein(fish) along the lines of the Mediterranean diet. [...] Patient agreeable to treatment plan. Joelle Katz APRN.CARDROOM MANAGER [address] [place] [address] documented [facility]22 Miscellaneous Notes* Telephone Encounter - Laurence Chang LPN - 09/05/2022 11:33 AM EST Patient notified of Rx, verbalizes understanding of instructions. Laurence Chang LPN * Telephone Encounter - Fabian Mcmullen MD - 09/05/2022 11:15 AM EST Let patient know I looked back in her records and found she had been on Actonel back in 2008 but itdoes not say why it was stopped. I [...] cup of water on empty stomach. Nothing elseby mouth and stay upright for 30 min. Authorizing Provider: FABIAN MCMULLEN MD * Telephone Encounter - Sol Lowery MA - 09/05/2022 8:30 AM EST Spoke with patient and gave results and instructions. Patient voiced understanding. Patient indicated that she has been taking the Vitamin D but not the calcium. She will re-start thecalcium. She also mentioned that before seeing Dr. Mcmullen she was placed on a prescription for her bones buthad a reaction. She was unable to remember the medication or the reaction. She is still willing to try the medication. Pharmacy verified. Sol Lowery MA * Telephone Encounter - Fabian Mcmullen MD - 09/04/2022 9:12 PM EST Let patient know her bone strength study [...] mg once a week. documented in this [facility]11-17-2022 Miscellaneous Notes* Telephone Encounter - Hayley Gibbs LPN - 08/31/2022 11:14 AM EST Patient has been identified by name and date of : Yes Patient phones for refill(s): Requested Prescriptions Pending Prescriptions Disp Refills lisinopril (ZESTRIL,PRINIVIL) 30 mg tablet [Pharmacy Med Name: LISINOPRIL 30 MG TABLET] 30 tablet 0 Sig: take 1 tablet by mouth once daily Date of last office visit in primary care: 08/09/22 Please advise. Thank you. Hayley Gibbs LPN documented in this [facility]10-26-2022 Nurse Note* Angi Rosales LPN - 08/09/2022 4:47 PM EDT Pt received her covid booster in office today as ordered. Pt tolerated well. documented in this [facility]10-26-2022 History of Present illness Narrative* Joelle Katz APRN.CARDROOM MANAGER - 08/09/2022 3:33 PM EDT Chief Complaint Patient presents with: Blood Pressure: Htn, covid booster HPI Laurence Koroma is a 71 year old female who [...] Patient agreeable to treatment plan. Joelle Katz APRN.CARDROOM MANAGER [address] [place] [address] documented in this encounterReg[facility]10-20-2022 Miscellaneous Notes* Telephone Encounter - Chey Ponce Cma - 08/03/2022 11:28 AM EDT [employer] message sent to patient Chey Kris Sutton * Telephone Encounter - Fabian Mcmullen MD - 08/03/2022 10:16 AM EDT Let patient know the US of her neck arteries shows some fibrous scaring, however, there is no significant narrowing or blockage noted on either side. Treatment for this to prevent blockage is good BPcontrol, lipid management (hers has been fine) and to start taking a baby aspirin 81 mg once a day. documented in this encounterReg[facility]10-17-2022 Miscellaneous Notes* Telephone Encounter - Sol Lowery MA - 07/31/2022 9:15 AM EDT Patient notified and voiced understanding. Sol Lowery MA * Telephone Encounter - Fabian Mcmullen MD - 07/30/2022 8:56 PM EDT Let patient know blood sugar A1c slightly elevated at 5.8%. Continue to try to reduce carbs, sugarsand starches in diet. Lipid panel and UA were both ok. documented in this encounterReg[facility]10-15-2022 Miscellaneous Notes* Telephone Encounter - Sol Lowery MA - 07/29/2022 11:08 AM EDT Left detailed message for patient with PCP instructions. Sol Lowery MA * Telephone Encounter - Fabian Mcmullen MD - 07/28/2022 5:20 PM EDT Let patient know there is a A1c test with the labs already. Tell her when she comes in to tell the desk people she needs the three labs ordered 01/04/2022 and expected by 06/23/2022 completed. * Telephone Encounter - Bety Prieto LPN - 07/28/2022 3:01 PM EDT Patient asking if she should have her HGBA1c done again, she had hers done in 12/2021. Plans to comein the next couple of days to have the Lipid Panel and Urinalysis done. documented in this encounterReg[facility]10-13-2022 Miscellaneous Notes* Telephone Encounter - Hayley Gibbs LPN - 07/27/2022 4:12 PM EDT Patient notified. Verbalized understanding. * Telephone Encounter - Fabian Mcmullen MD - 07/27/2022 3:39 PM EDT Let patient know the thyroid lab and CBC were ok. The US of her heart showed normal function. There was mild leaking of one of the valves but this iscommon as we get older and will monitor for now. documented in this encounterReg[facility]10-12-2022 History of Present illness Narrative* Fabian Mcmullen MD - 07/26/2022 3:20 PM EDT Chief Complaint Patient presents with: Physical HPI Laurence Koroma is a 71 year old female who [...] BP Cuff Size: Regular Adult) Pulse 70 Resp14 Ht 152.4 cm (5') Wt 42.6 kg [...] symmetric. Sensation to light touch and crainal nerves2-21 intact.. Health Maintenance List PNEUMOCOCCAL: 65+(1 - [...] diet of 1000 mg/day for under 50, 1200- 1500 mg/day for 50+ - Patient was counseled [id number] by myself (the billing provider) for the [...] All prescriptions have been APPROPRIATELY filled. No suspiciousactivity was identified. 07/26/2022 by Fabian Mcmullen MD [...] routine Fabian Mcmullen MD documented in this encounterReg[facility]10-04-2022 Miscellaneous Notes* Telephone Encounter - Elina Mckenzie LPN - 07/18/2022 1:15 PM EDT Patient notified of results and provider's instructions. Patient verbalizes understanding. Elina Mckenzie LPN * Telephone Encounter - Fabian Mcmullen MD - 07/18/2022 12:53 PM EDT Let patient know her electrolyte panel was ok except showing she is dehydrated. Advise her to try to get 48-64 oz of water a day. documented in this encounterReg[facility]10-03-2022 Miscellaneous Notes* Telephone Encounter - Peggy Jefferson RN - 07/17/2022 8:41 AM EDT Patient calls to report feeling light-headed 3 [...] denies any symptoms of dehydration. 2. LIGHTHEADED: [place] faint with all over weakness. 3. VERTIGO: No spinning or tilting. 4. SEVERITY: - MODERATE: Feels unsteady when walking, but not falling; interferes with normal activities (e.g., school, work). Moderate on Sunday at the time but feeling per her normal now. Patient is working today and feelsok. 5. ONSET: Sunday 6. AGGRAVATING FACTORS: Standing [...] 11. : NA Protocols used: Dizziness - [id number] documented in this encounterReg[facility]08-10-2022 Miscellaneous Notes* Telephone Encounter - Kaye Osmar Vazquez [facility] - 05/24/2022 10:11 AM EDT Pharmacy verified in [facility] Patient has been identified by name [...] advise. Kaye Vazquez Pss documented in this encounterReg[facility]04-25-2022 Miscellaneous Notes* Telephone Encounter - Sol Lowery MA - 02/06/2022 11:04 AM EDT Patient has been identified by name and date of : Yes Pending Prescriptions Disp Refills POTASSIUM CHLORIDE ER 8 MEQ CAPSULE,EXTENDED RELEASE 180 capsule 1 Sig: Take 1 capsule by mouth twice daily. JOE: No RX INSTRUCTIONS: Patient aware RX will be sent to pharmacy. No need to notify patient. Sol Lowery MA Rajwinder: 12/2021 Nov: 07/2022 Last refill: 01/04/2022 for 60 capsule. Patient needs 90 supply for insurance. * Telephone Encounter - Dionna Barcenas Pss - 02/06/2022 9:18 AM EDT Patient has been identified by name and date of : Yes Pending Prescriptions Disp Refills POTASSIUM CHLORIDE ER 8 MEQ CAPSULE,EXTENDED RELEASE 180 capsule 1 Sig: Take 1 capsule by mouth twice daily. JOE: No RX INSTRUCTIONS: Due to the insurance she needs this changed to 90 day supply. Patient aware RX will be sent to pharmacy. No need to notify patient. Dionna Allan documented in this encounterReg[facility]03-28-2022 Miscellaneous Notes* Telephone Encounter - Danielle Quarles LPN - 01/09/2022 9:01 AM EDT Pt notified of results and provider message. Danielle Quarles LPN * Telephone Encounter - Elina Mckenzie LPN - 01/09/2022 8:52 AM EDT Left message for pt to contact office. Elina Mckenzie LPN * Telephone Encounter - Fabian Mcmullen MD - 01/07/2022 11:58 AM EDT Let patient know her blood sugar test improved to 5.7% vs 5.9%. Normal is 4.3- 5.6% so continue working on reduced carbs and starches in diet. documented in this encounterRegency [facility]11-29-2021 History of Present illness Narrative* Shital Hatfield RT(R) - 09/12/2021 9:20 AM EST Radiology Service Progress Note PATIENT NAME: Laurence Koroma DATE OF SERVICE: September 12, 2021 TIME: 9:27 AM PATIENT IDENTITY VERIFICATION COMPLETED USING TWO (2) IDENTIFIERS: Name and Date of confirmedby patient verbally. FALL SCREENING: Has the patient [...] DATA: Not applicable SIGNED BY: RT Roxanna(R) September 12, 2021 9:27 AM documented in this encounterRegency [facility]02-19-2012 History of Past illness Narrative* Problem Noted Date Resolved Date Lichen Planus: lower lip 12/03/2011 012 Actinic cheilitis 12/03/2011 04/25/2012 Seborrheic Keratosis 12/03/2011 04/25/2012 documented as of this encounter (statuses as of 01/09/2022) [address]19-2012 History of Past illness Narrative* Problem Noted Date Resolved Date Lichen Planus: lower lip 12/03/2011 012 Actinic cheilitis 12/03/2011 04/25/2012 Seborrheic Keratosis 12/03/2011 04/25/2012 documented as of this encounter (statuses as of 02/06/2022) [address]19-2012 History of Past illness Narrative* Problem Noted Date Resolved Date Lichen Planus: lower lip 12/03/2011 012 Actinic cheilitis 12/03/2011 04/25/2012 Seborrheic Keratosis 12/03/2011 04/25/2012 documented as of this encounter (statuses as of 05/24/2022) [address]19-2012 History of Past illness Narrative* Problem Noted Date Resolved Date Lichen Planus: lower lip 12/03/2011 012 Actinic cheilitis 12/03/2011 04/25/2012 Seborrheic Keratosis 12/03/2011 04/25/2012 documented as of this encounter (statuses as of 06/19/2022) [address]19-2012 History of Past illness Narrative* Problem Noted Date Resolved Date Lichen Planus: lower lip 12/03/2011 012 Actinic cheilitis 12/03/2011 04/25/2012 Seborrheic Keratosis 12/03/2011 04/25/2012 documented as of this encounter (statuses as of 07/17/2022) [address]19-2012 History of Past illness Narrative* Problem Noted Date Resolved Date Lichen Planus: lower lip 12/03/2011 012 Actinic cheilitis 12/03/2011 04/25/2012 Seborrheic Keratosis 12/03/2011 04/25/2012 documented as of this encounter (statuses as of 07/18/2022) [address]19-2012 History of Past illness Narrative* Problem Noted Date Resolved Date Lichen Planus: lower lip 12/03/2011 07/12/2 012 Actinic cheilitis 12/03/2011 04/25/2012 Seborrheic Keratosis 12/03/2011 04/25/2012 documented as of this encounter (statuses as of 07/27/2022) [address]19-2012 History of Past illness Narrative* Problem Noted Date Resolved Date Lichen Planus: lower lip 12/03/2011 012 Actinic cheilitis 12/03/2011 04/25/2012 Seborrheic Keratosis 12/03/2011 04/25/2012 documented as of this encounter (statuses as of 07/27/2022) [address]19-2012 History of Past illness Narrative* Problem Noted Date Resolved Date Lichen Planus: lower lip 12/03/2011 012 Actinic cheilitis 12/03/2011 04/25/2012 Seborrheic Keratosis 12/03/2011 04/25/2012 documented as of this encounter (statuses as of 07/29/2022) [address]19-2012 History of Past illness Narrative* Problem Noted Date Resolved Date Lichen Planus: lower lip 12/03/2011 012 Actinic cheilitis 12/03/2011 04/25/2012 Seborrheic Keratosis 12/03/2011 04/25/2012 documented as of this encounter (statuses as of 07/31/2022) [facility] illness Narrative* Problem Noted Date Resolved Date Lichen Planus: lower lip 12/03/2011 012 Actinic cheilitis 12/03/2011 04/25/2012 Seborrheic Keratosis 12/03/2011 04/25/2012 documented as of this encounter (statuses as of 08/03/2022) [address]19-2012 History of Past illness Narrative* Problem Noted Date Resolved Date Lichen Planus: lower lip 12/03/2011 012 Actinic cheilitis 12/03/2011 04/25/2012 Seborrheic Keratosis 12/03/2011 04/25/2012 documented as of this encounter (statuses as of 08/09/2022) [address]19-2012 History of Past illness Narrative* Problem Noted Date Resolved Date Lichen Planus: lower lip 12/03/2011 012 Actinic cheilitis 12/03/2011 04/25/2012 Seborrheic Keratosis 12/03/2011 04/25/2012 documented as of this encounter (statuses as of 08/31/2022) [address]19-2012 History of Past illness Narrative* Problem Noted Date Resolved Date Lichen Planus: lower lip 12/03/2011 012 Actinic cheilitis 12/03/2011 04/25/2012 Seborrheic Keratosis 12/03/2011 04/25/2012 documented as of this encounter (statuses as of 09/06/2022) [address]19-2012 History of Past illness Narrative* Problem Noted Date Resolved Date Lichen Planus: lower lip 12/03/2011 012 Actinic cheilitis 12/03/2011 04/25/2012 Seborrheic Keratosis 12/03/2011 04/25/2012 documented as of this encounter (statuses as of 09/08/2022) [address]19-2012 History of Past illness Narrative* Problem Noted Date Resolved Date Lichen Planus: lower lip 12/03/2011 012 Actinic cheilitis 12/03/2011 04/25/2012 Seborrheic Keratosis 12/03/2011 04/25/2012 documented as of this encounter (statuses as of 09/08/2022) [facility] Narrative* Problem Noted Date Resolved Date Lichen Planus: lower lip 12/03/2011 012 Actinic cheilitis 12/03/2011 04/25/2012 Seborrheic Keratosis 12/03/2011 04/25/2012 documented as of this encounter (statuses as of 10/20/2022) [address]19-2012 History of Past illness Narrative* Problem Noted Date Resolved Date Lichen Planus: lower lip 12/03/2011 012 Actinic cheilitis 12/03/2011 04/25/2012 Seborrheic Keratosis 12/03/2011 04/25/2012 documented as of this encounter (statuses as of 10/20/2022) [address]19-2012 History of Past illness Narrative* Problem Noted Date Resolved Date Lichen Planus: lower lip 12/03/2011 012 Actinic cheilitis 12/03/2011 04/25/2012 Seborrheic Keratosis 12/03/2011 04/25/2012 documented as of this encounter (statuses as of 11/13/2022) [facility] of [facility] illness Narrative* Problem Noted Date Resolved Date Lichen Planus: lower lip 12/03/2011 012 Actinic cheilitis 12/03/2011 04/25/2012 Seborrheic Keratosis 12/03/2011 04/25/2012 documented as of this encounter (statuses as of 12/11/2022) [facility] Narrative* Problem Noted Date Resolved Date Lichen Planus: lower lip 12/03/2011 012 Actinic cheilitis 12/03/2011 04/25/2012 Seborrheic Keratosis 12/03/2011 04/25/2012 documented as of this encounter (statuses as of 12/11/2022) [address]19-2012 History of Past illness Narrative* Problem Noted Date Resolved Date Lichen Planus: lower lip 12/03/2011 012 Actinic cheilitis 12/03/2011 04/25/2012 Seborrheic Keratosis 12/03/2011 04/25/2012 documented as of this encounter (statuses as of 12/15/2022) [facility] Narrative* Problem Noted Date Resolved Date Lichen Planus: lower lip 12/03/2011 012 Actinic cheilitis 12/03/2011 04/25/2012 Seborrheic Keratosis 12/03/2011 04/25/2012 documented as of this encounter (statuses as of 12/22/2022) [facility] Narrative* Problem Noted Date Resolved Date Lichen Planus: lower lip 12/03/2011 012 Actinic cheilitis 12/03/2011 04/25/2012 Seborrheic Keratosis 12/03/2011 04/25/2012 documented as of this encounter (statuses as of 01/02/2023) [address]19-2012 History of Past illness Narrative* Problem Noted Date Resolved Date Lichen Planus: lower lip 12/03/2011 012 Actinic cheilitis 12/03/2011 04/25/2012 Seborrheic Keratosis 12/03/2011 04/25/2012 documented as of this encounter (statuses as of 01/16/2023) [facility] of Past illness Narrative* Problem Noted Date Resolved Date Lichen Planus: lower lip 12/03/2011 012 Actinic cheilitis 12/03/2011 04/25/2012 Seborrheic Keratosis 12/03/2011 04/25/2012 documented as of this encounter (statuses as of 01/25/2023) [address]19-2012 History of Past illness Narrative* Problem Noted Date Resolved Date Lichen Planus: lower lip 12/03/2011 012 Actinic cheilitis 12/03/2011 04/25/2012 Seborrheic Keratosis 12/03/2011 04/25/2012 documented as of this encounter (statuses as of 01/26/2023) [address]19-2012 History of Past illness Narrative* Problem Noted Date Resolved Date Lichen Planus: lower lip 12/03/2011 012 Actinic cheilitis 12/03/2011 04/25/2012 Seborrheic Keratosis 12/03/2011 04/25/2012 documented as of this encounter (statuses as of 02/09/2023) [address]19-2012 History of Past illness Narrative* Problem Noted Date Resolved Date Lichen Planus: lower lip 12/03/2011 012 Actinic cheilitis 12/03/2011 04/25/2012 Seborrheic Keratosis 12/03/2011 04/25/2012 documented as of this encounter (statuses as of 03/20/2023) [facility] of Past [facility] Narrative* Problem Noted Date Resolved Date Lichen Planus: lower lip 12/03/2011 012 Actinic cheilitis 12/03/2011 04/25/2012 Seborrheic Keratosis 12/03/2011 04/25/2012 documented as of this encounter (statuses as of 04/19/2023) [address]19-2012 History of Past illness Narrative* Problem Noted Date Resolved Date Lichen Planus: lower lip 12/03/2011 012 Actinic cheilitis 12/03/2011 04/25/2012 Seborrheic Keratosis 12/03/2011 04/25/2012 documented as of this encounter (statuses as of 04/20/2023) [facility] of Past illness Narrative* Problem Noted Date Diagnosed Date Resolved Date Lichen Planus: lower lip 12/03/201109/2012 Actinic cheilitis 12/03/2011 04/25/2012 Seborrheic Keratosis 12/03/2011 012 documented as of this encounter (statuses as of 04/24/2023) [address]19-2012 History of Past illness Narrative* Problem Noted Date Diagnosed Date Resolved Date Lichen Planus: lower lip 12/03/201109/2012 Actinic cheilitis 12/03/2011 04/25/2012 Seborrheic Keratosis 12/03/2011 012 documented as of this encounter (statuses as of 04/26/2023) [address]19-2012 History of Past illness Narrative* Problem Noted Date Diagnosed Date Resolved Date Lichen Planus: lower lip 12/03/201109/2012 Actinic cheilitis 12/03/2011 04/25/2012 Seborrheic Keratosis 12/03/2011 012 documented as of this encounter (statuses as of 04/29/2023) [address]19-2012 History of Past illness Narrative* Problem Noted Date Diagnosed Date Resolved Date Lichen Planus: lower lip 12/03/201109/2012 Actinic cheilitis 12/03/2011 04/25/2012 Seborrheic Keratosis 12/03/2011 012 documented as of this encounter (statuses as of 05/14/2023) [address]19-2012 History of Past illness Narrative* Problem Noted Date Diagnosed Date Resolved Date Lichen Planus: lower lip 12/03/201109/2012 Actinic cheilitis 12/03/2011 04/25/2012 Seborrheic Keratosis 12/03/2011 012 documented as of this encounter (statuses as of 05/15/2023) [address]19-2012 History of Past illness Narrative* Problem Noted Date Diagnosed Date Resolved Date Lichen Planus: lower lip 12/03/201109/2012 Actinic cheilitis 12/03/2011 04/25/2012 Seborrheic Keratosis 12/03/2011 012 documented as of this encounter (statuses as of 05/15/2023) [facility] of Past illness Narrative* Problem Noted Date Diagnosed Date Resolved Date Lichen Planus: lower lip 12/03/201109/2012 Actinic cheilitis 12/03/2011 04/25/2012 Seborrheic Keratosis 12/03/2011 012 documented as of this encounter (statuses as of 06/14/2023) [facility] of Past illness Narrative* Problem Noted Date Diagnosed Date Resolved Date Lichen Planus: lower lip 12/03/201109/2012 Actinic cheilitis 12/03/2011 04/25/2012 Seborrheic Keratosis 12/03/2011 012 documented as of this encounter (statuses as of 06/26/2023) [facility] of Past illness Narrative* Problem Noted Date Diagnosed Date Resolved Date Lichen Planus: lower lip 12/03/201109/2012 Actinic cheilitis 12/03/2011 04/25/2012 Seborrheic Keratosis 12/03/2011 012 documented as of this encounter (statuses as of 07/13/2023) [facility] of Past illness Narrative* Problem Noted Date Diagnosed Date Resolved Date Lichen Planus: lower lip 12/03/201109/2012 Actinic cheilitis 12/03/2011 04/25/2012 Seborrheic Keratosis 12/03/2011 012 documented as of this encounter (statuses as of 08/03/2023) [facility] of Past [facility] Narrative* Problem Noted Date Diagnosed Date Resolved Date Lichen Planus: lower lip 12/03/201109/2012 Actinic cheilitis 12/03/2011 04/25/2012 Seborrheic Keratosis 12/03/2011 012 documented as of this encounter (statuses as of 08/08/2023) [facility] Narrative* Problem Noted Date Diagnosed Date Resolved Date Lichen Planus: lower lip 12/03/201109/2012 Actinic cheilitis 12/03/2011 04/25/2012 Seborrheic Keratosis 12/03/2011 012 documented as of this encounter (statuses as of 08/09/2023) [facility] of Past illness Narrative* Problem Noted Date Diagnosed Date Resolved Date Lichen Planus: lower lip 12/03/201109/2012 Actinic cheilitis 12/03/2011 04/25/2012 Seborrheic Keratosis 12/03/2011 012 documented as of this encounter (statuses as of 08/19/2023) [facility] Past illness Narrative* Problem Noted Date Diagnosed Date Resolved Date Lichen Planus: lower lip 12/03/201109/2012 Actinic cheilitis 12/03/2011 04/25/2012 Seborrheic Keratosis 12/03/2011 012 documented as of this encounter (statuses as of 08/23/2023) [facility] of Past illness Narrative* Problem Noted Date Diagnosed Date Resolved Date Lichen Planus: lower lip 12/03/201109/2012 Actinic cheilitis 12/03/2011 04/25/2012 Seborrheic Keratosis 12/03/2011 012 documented as of this encounter (statuses as of 09/04/2023) [address]19-2012 History of Past illness Narrative* Problem Noted Date Diagnosed Date Resolved Date Lichen Planus: lower lip 12/03/201109/2012 Actinic cheilitis 12/03/2011 04/25/2012 Seborrheic Keratosis 12/03/2011 012 documented as of this encounter (statuses as of 09/05/2023) [facility] History of Past illness Narrative* Problem Noted Date Diagnosed Date Resolved Date Lichen Planus: lower lip 12/03/201109/2012 Actinic cheilitis 12/03/2011 04/25/2012 Seborrheic Keratosis 12/03/2011 012 documented as of this encounter (statuses as of 11/16/2023) [address]19-2012 History of Past illness Narrative* Problem Noted Date Diagnosed Date Resolved Date Lichen Planus: lower lip 12/03/201109/2012 Actinic cheilitis 12/03/2011 04/25/2012 Seborrheic Keratosis 12/03/2011 012 documented as of this encounter (statuses as of 11/20/2023) [address]19-2012 History of Past illness Narrative* Problem Noted Date Diagnosed Date Resolved Date Lichen Planus: lower lip 12/03/201109/2012 Actinic cheilitis 12/03/2011 04/25/2012 Seborrheic Keratosis 12/03/2011 012 documented as of this encounter (statuses as of 11/29/2023) [address]19-2012 History of Past illness Narrative* Problem Noted Date Diagnosed Date Resolved Date Lichen Planus: lower lip 12/03/201109/2012 Actinic cheilitis 12/03/2011 04/25/2012 Seborrheic Keratosis 12/03/2011 012 documented as of this encounter (statuses as of 12/12/2023) [facility] History of Past illness Narrative* Problem Noted Date Diagnosed Date Resolved Date Lichen Planus: lower lip 12/03/201109/2012 Actinic cheilitis 12/03/2011 04/25/2012 Seborrheic Keratosis 12/03/2011 012 documented as of this encounter (statuses as of 12/20/2023) [address]19-2012 History of Past illness Narrative* Problem Noted Date Diagnosed Date Resolved Date Lichen Planus: lower lip 12/03/201109/2012 Actinic cheilitis 12/03/2011 04/25/2012 Seborrheic Keratosis 12/03/2011 012 documented as of this encounter (statuses as of 12/24/2023) [facility]02-19-2012 History of Past illness Narrative* Problem Noted Date Diagnosed Date Resolved Date Lichen Planus: lower lip 12/03/201109/2012 Actinic cheilitis 12/03/2011 04/25/2012 Seborrheic Keratosis 12/03/2011 012 documented as of this encounter (statuses as of 01/30/2024) [facility] noteNo assessment information availableWMercy [facility] Work Phone: Evaluation note* Diagnosis Encounter for screening mammogram for breast cancer [facility] Diagnosis Well adult exam- Primary Routine [...] single bacterial disease [facility]* Diagnosis Mild AI (aortic insufficiency) Aortic valve disorders [facility]* Diagnosis 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 dysplasia of both carotid arteries (HCC) [facility]* Diagnosis Essential hypertension, benign- Primary Encounter for immunization Need for other specified prophylactic vaccination against single bacterial disease [facility] Diagnosis Primary hypertension- Primary Unspecified essential hypertension Headache, unspecified headache type Acute cough [facility] Diagnosis Primary hypertension Unspecified essential hypertension [facility] Diagnosis Primary hypertension Unspecified essential hypertension [facility] Diagnosis Primary hypertension- Primary Unspecified essential hypertension [facility] Diagnosis Sore throat- Primary Acute pharyngitis Strep throat exposure Contact with or exposure to other communicable diseases Sinus pressure Other diseases of nasal cavity and sinuses Right ear pain Otalgia, unspecified Non-recurrent acute serous otitis media of right ear [facility] Diagnosis Bacterial sinusitis- Primary Unspecified sinusitis (chronic) [facility]* Diagnosis Sore throat Acute pharyngitis Strep throat exposure Contact with or exposure to other communicable diseases Sinus pressure Other diseases of nasal cavity and sinuses Right ear pain Otalgia, unspecified Non-recurrent acute serous otitis media of right ear [facility]* Diagnosis Seasonal allergic rhinitis, unspecified trigger- Primary Sore throat Acute pharyngitis [facility]* Diagnosis Essential hypertension, benign- Primary Elevated hemoglobin A1c Other abnormal blood chemistry LALO (generalized anxiety disorder) Generalized anxiety disorder 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 dysplasia of both carotid arteries (HCC) Insomnia, unspecified type Advance directive discussed with patient Other specified counseling [facility] Diagnosis Essential hypertension, benign- Primary Primary hypertension Unspecified essential hypertension 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 dysplasia of both carotid arteries (HCC) Primary insomnia Persistent disorder of initiating or maintaining sleep 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 [facility]* Diagnosis Onset Date Resolution Status 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 [facility] Work Phone: Evaluation note* Diagnosis Onset Date Resolution Status 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 [facility] Work Phone: Evaluation note* Diagnosis 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 dysplasia of both carotid arteries (HCC) [facility]* Diagnosis Diverticulitis- Primary Diverticulitis of colon (without mention of hemorrhage) Diverticulosis Diverticulosis of colon (without mention of hemorrhage) [facility] Diagnosis Onset Date Resolution Status 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 difficile colitis- Primary Intestinal infection due to clostridium difficile [facility]* Diagnosis Primary hypertension Unspecified essential hypertension [facility]* Diagnosis Primary insomnia Persistent disorder of initiating or maintaining sleep [facility]* Diagnosis Bronchitis- Primary Bronchitis, not specified as acute or chronic Nasal congestion Other diseases of nasal cavity and sinuses [facility] Diagnosis Encounter for Medicare annual wellness exam- Primary Routine general medical examination at a health care facility Essential hypertension, benign Elevated hemoglobin A1c Other abnormal blood chemistry 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 dysplasia of both carotid arteries (HCC) LALO (generalized anxiety disorder) Generalized anxiety disorder Insomnia, unspecified type Need for vaccination Need for prophylactic vaccination and inoculation against unspecified single disease [facility] Diagnosis Onset Date Resolution Status 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 Clostridium difficile diarrhea acute Diarrhea acute Aortic insufficiency chronic Essential hypertension [facility] Work Phone: Evaluation note* Diagnosis Encounter for screening mammogram for breast cancer [facility]* Diagnosis Primary insomnia Persistent disorder of initiating or maintaining sleep documented in this encounter [facility] note* Diagnosis Eustachian tube disorder, left- Primary Non-recurrent acute serous otitis media of left ear documented in this encounter [facility] note* Diagnosis History of Clostridium difficile colitis Personal history of other diseases of digestive system documented in this encounter [facility] note* Diagnosis Sudden hearing loss, left- Primary Disorder of left eustachian tube documented in this encounter [facility]* Diagnosis Sensorineural hearing loss, bilateral- Primary Sudden hearing loss, left documented in this encounter [facility] note* Diagnosis Primary hypertension Unspecified essential hypertension Primary insomnia Persistent disorder of initiating or maintaining sleep documented in this encounter [facility] note* Diagnosis Viral bronchitis- Primary Acute bronchitis URI, acute Acute upper respiratory infections of unspecified site documented [facility]* Diagnosis Sore throat Acute pharyngitis documented in this encounter [facility] note* Diagnosis Essential hypertension, benign- Primary LALO (generalized anxiety disorder) Generalized anxiety disorder Insomnia, unspecified type Elevated hemoglobin A1c Other abnormal blood chemistry Age-related osteoporosis without current pathological fracture Senile osteoporosis Mild AI (aortic insufficiency) Aortic valve disorders documented in this encounter [facility] note* Diagnosis Primary insomnia Persistent disorder of initiating or maintaining sleep documented in this encounter [facility] note* Diagnosis Hematoma and contusion- Primary [facility]* Diagnosis Sore throat Acute pharyngitis [facility]* Diagnosis Primary hypertension Unspecified essential hypertension [facility]* Diagnosis Viral bronchitis Acute bronchitis documented [facility]* Diagnosis Acute cough documented in [facility]* Diagnosis Cough [facility]* Diagnosis Encounter for Medicare annual wellness exam- Primary Routine general medical examination at a health care facility Essential hypertension, benign Elevated hemoglobin A1c Other abnormal blood chemistry 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 dysplasia of both carotid arteries (HCC) LALO (generalized anxiety disorder) Generalized anxiety disorder Mild AI (aortic insufficiency) Aortic valve disorders Age-related osteoporosis without current pathological fracture Senile osteoporosis Advance directive discussed with patient Other specified counseling Screening for depression Elevated LFTs Other abnormal blood chemistry High vitamin D level Hypervitaminosis D Insomnia, unspecified type documented [facility] this [facility]* Diagnosis Essential hypertension, benign- Primary [facility]* Diagnosis Primary hypertension Unspecified essential hypertension documented in this encounter [facility] note* Diagnosis Primary insomnia Persistent disorder of initiating or maintaining sleep documented in this encounter [facility] note* Diagnosis Essential hypertension, benign- Primary [facility]* Diagnosis Age-related osteoporosis without current pathological fracture Senile osteoporosis [facility]* Diagnosis Age-related osteoporosis without current pathological fracture- Primary Senile osteoporosis documented in this encounter [facility] note* Diagnosis URI, acute- Primary Acute upper respiratory infections of unspecified site [facility]* Diagnosis Primary hypertension Unspecified essential hypertension [facility]* Diagnosis Diverticulitis- Primary Diverticulitis of colon (without mention of hemorrhage) History of Clostridium difficile colitis Personal history of other diseases of digestive system Diarrhea, unspecified type documented [facility] this [facility]* Diagnosis Diarrhea, unspecified type- Primary Diverticulosis Diverticulosis of colon (without mention of hemorrhage) Diverticulitis Diverticulitis of colon (without mention of hemorrhage) History of Clostridium difficile colitis Personal history of other diseases of digestive system Anemia, unspecified type Sore throat Acute pharyngitis documented in this [facility]* Diagnosis Anemia, unspecified type- Primary documented in this [facility]* Diagnosis Primary insomnia Persistent disorder of initiating or maintaining sleep documented [facility] this [facility]* Diagnosis Essential hypertension, benign- Primary LALO (generalized anxiety disorder) Generalized anxiety disorder Elevated hemoglobin A1c Other abnormal blood chemistry Insomnia, unspecified type Age-related osteoporosis without current pathological fracture Senile osteoporosis 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 dysplasia of both carotid arteries Nocturia documented in this encounter [facility] note* Diagnosis Bacterial sinusitis- Primary Unspecified sinusitis (chronic) Temporal pain Headache Arthralgia of right temporomandibular joint Arthralgia of temporomandibular joint [facility] Anemia, unspecified type- Primary [facility] Additional Instructions Plenty of fluids and rest. Zofran as needed for nausea. Follow-up with your doctor return emergency department if you are feeling worse. [facility] Work Phone: Hospital Discharge instructions Additional Instructions - Use the nausea medicine as needed and do your best to stay hydrated is much as possible. Consider Gatorade or Powerade, since you may not feel like eating foods, and they have electrolytes and some sugar/calories (if you get the right kind). - Avoid antidiarrheals until you talk to your doctor about the results of the enteric bacterial PCR panel which should be performed sometime today 11/27. - Okay to continue probiotics/yogurt as tolerated/able. - Your potassium was a little low but we are not replacing it because it is a pill that tends to make people vomit more, which you already were doing. It is not significantly low. If you are drinking Gatorade/Powerade, you will help to replace some of it.[facility] Work Phone: Reason for referral (narrative)* Diagnostic Procedure Only (Routine) - Pending Review Specialty Diagnoses / Procedures Referred By Clive biggs Referred To Contact [facility] IMAGING Diagnoses Encounter for screening mammogram for breast cancer Procedures SANDOVAL SCREENING SCREENING MAMMOGRAPHY BI 2-VIEW BREAST INC Fabian Srivastava MD [address] [place] [address] [facility] [address] [place] [address] Referral ID Status Reason Start Date Expiration Date Visits Requested Visits Authorized [id number] Pending Review Auto-Generat ed Referral 06/14/2022 07/14/2023 1 1 [facility] for referral (narrative)* Diagnostic Procedure Only (Routine) - Closed Specialty Diagnoses / Procedures Referred By Clive biggs Referred To Contact [facility] IMAG[facility] Diagnoses Encounter for screening mammogram for breast cancer Procedures SANDOVAL SCREENING SCREENING MAMMOGRAPHY BI 2-VIEW BREAST INC Fabian Srivastava MD [address] [place] [address] [facility] [address] [place] [address] Referral ID Status Reason Start Date Expiration Date V isits Requested Visits Authorized [id number] Closed Auto-Generate d Referral 06/14/2022 07/14/2023 1 1 [facility] for referral (narrative)* Diagnostic Procedure Only (Routine) - Authorized Specialty Diagnoses / Procedures Referred By Contac t Referred To Contact XR IMAGING Diagnoses Age-related osteoporosis without current pathological fracture Procedures DXA-AXIAL SKELETON DXA BONE DENSITY STUDY 1/> SITES Fabian Crook MD [address] [place] [id number] Xr Imaging [facility] Referral ID Status Reason Start Date Expiration Date Visits Requested Visits Authorized [id number] Authorized Auto-Generat ed Referral 09/07/2025 1 1 [facility] for referral (narrative)No reason for referral information availableWMercy Health [facility] Work Phone: Reknch for visit Narrative* Diagnostic Procedure Only (Routine) - Closed Specialty Diagnoses / Procedures Referred By Contac t Referred To Contact [facility] IMAG[facility] Diagnoses Encounter for screening mammogram for breast cancer Procedures SANDOVAL SCREENING SCREENING MAMMOGRAPHY BI 2-VIEW BREAST INC Fabian Srivastava MD [address] [place] [address] [facility] [address] [place] [address] Referral ID Status Reason Start Date Expiration Date V isits Requested Visits Authorized [id number] Closed Auto-Generate d Referral 06/14/2022 07/14/2023 1 1 [facility] for visit Narrative* Diagnostic Procedure Only (Routine) - Closed Specialty Diagnoses / Procedures Referred By Contac t Referred To Contact XR IMAGING Diagnoses Age-related osteoporosis without current pathological fracture Procedures DXA-AXIAL SKELETON DXA BONE DENSITY STUDY 1/> SITES AXIAL Fabian Glez MD [address] [place] [address] [place] [address] Referral ID Status Reason Start Date Expiration Date V isits Requested Visits Authorized [id number] Closed Auto-Generate d Referral 08/08/2024 09/07/2025 1 1 [facility] Chief Complaint and Reason for Visit Chief Complaint WEAKNESS Chief Complaint FIBROMUSCULAR DYSPLA JUAN MANUEL e order Reason for Visit 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 dyspla juan manuel Chief Complaint FIBROMUSCULAR DYSPLA JUAN MANUEL e order ARTERIAL FIBROMUSCULAR DYSPLASIA Reason for Visit 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 dyspla juan manuel Chief Complaint FIBROMUSCULAR DYSPLA JUAN MANUEL e order ARTERIAL FIBROMUSCULAR DYSPLASIA DISCUSS CT RESULTS ABDOMINAL PAIN Reason for Visit 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 dyspla juan manuel 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 dysplasia Chief Complaint FIBROMUSCULAR DYSPLA JUAN MANUEL e order ARTERIAL FIBROMUSCULAR DYSPLASIA DISCUSS CT RESULTS ABDOMINAL PAIN HYPOTENSION, COLITIS Reason for Visit 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 dyspla juan manuel 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 dysplasia EVELYN (acute kidney injury) Hypotension Near syncope Chief Complaint DISCUSS CT RESULTS ABDOMINAL PAIN HYPOTENSION, COLITIS HYPOTENSION, COLITIS HYPOTENSION, COLITIS HYPOTENSION, COLITIS HYPOTENSION, COLITIS HYPOTENSION, COLITIS TACHYCARDIA / CHEST TIGHTNESS (SELF) CHEST PAIN CHEST PAIN Amb Documentation Reason for Visit 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 dyspla juan manuel Clostridium difficile diarrhea Diarrhea Aortic insufficiency Essential hypertension Chief Complaint CHEST PAIN CHEST PAIN Amb Documentation n/v/d Chief Complaint Admit Date abd pain January 26, 2025 7:1 4am Chief Complaint Admit Date abd pain January 26, 2025 7:1 4am Diverticulitis flare February 20, 2025 8:51a m INT LAB ORDERS February 20, 2025 10:15a m Reason for Visit Admit Date Clostridium difficile diarrhea February 20, 2025 8:51am Diverticulitis February 20, 2025 8:51am Chief Complaint Admit Date abd pain January 26, 2025 7:1 4am Diverticulitis flare February 20, 2025 8:51a m INT LAB ORDERS February 20, 2025 10:15a m diverticulitis moving forward plan February 132024 1:34pm Chief Complaint Admit Date abd pain January 26, 2025 7:1 4am Diverticulitis flare February 20, 2025 8:51a m INT LAB ORDERS February 20, 2025 10:15a m diverticulitis moving forward plan February 132024 1:34pm 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 Dysplasia of carotid arter ies April 15, 2025 1:00pm Reason for Visit Admit Date Clostridium difficile diarrhea February 20, 2025 8:51am Diverticulitis February 20, 2025 8:51am Clostridium difficile diarrhea March 04, 2025 1:34pm Diverticulitis March 04, 2025 1:34p m Chief Complaint Admit Date abd pain January 26, 2025 7:1 4am Diverticulitis flare February 20, 2025 8:51a m INT LAB ORDERS February 20, 2025 10:15a m diverticulitis moving forward plan February 132024 1:34pm 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 Dysplasia of carotid arter ies April 15, 2025 1:00pm FIBROMUSCULAR DYSPLASIA April 24, 2025 10:49am Reason for Visit Admit Date Clostridium difficile diarrhea February 20, 2025 8:51am Diverticulitis February 20, 2025 8:51am Clostridium difficile diarrhea March 04, 2025 1:34pm Diverticulitis March 04, 2025 1:34p m 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 dysplasia April 15, 2025 1 :00pm Chief Complaint Admit Date abd pain January 26, 2025 7:1 4am Diverticulitis flare February 20, 2025 8:51a m INT LAB ORDERS February 20, 2025 10:15a m diverticulitis moving forward plan February 132024 1:34pm 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 Dysplasia of carotid arter ies April 15, 2025 1:00pm FIBROMUSCULAR DYSPLASIA April 24, 2025 10:49am ARTERIAL FOBROMUSCULAR DYSPLASIA May 15, 2025 8:40am Pain in Head May 20, 2025 1:1 5pm Reason for Visit Admit Date Clostridium difficile diarrhea February 20, 2025 8:51am Diverticulitis February 20, 2025 8:51am Clostridium difficile diarrhea March 04, 2025 1:34pm Diverticulitis March 04, 2025 1:34p m 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 dysplasia April 15, 2025 1 :00pm Headache May 20, 2025 1:1 5pm Family History No Family History Records Found Relationship Condition Age at Onset Recorded Date/T hazel mother Hypertension Unknown father Cardiac disease Unknown Malignant neoplasm Unknown Relationship Condition Age at Onset Recorded Date/T hazel mother Hypertension Unknown father Cardiac disease Unknown Malignant neoplasm Unknown grandmother Cardiac disease Unknown Cerebrovascular accident (CVA) Unknown Advance Directives No Advanced Directives Records Found Advance Directive Response Recorded Date/ Time Advance Directives No September 7:53pm Living Will No January 11, 2022 1:31pm Power of Constitutional Law Professor No January 11 1:31pm Advance Directive Response Recorded Date/ Time Advance Directives No September 7:53pm Living Will No April 19, 2023 6 :38am Power of Constitutional Law Professor No April 19, 2023 6:38am Advance Directive Response Recorded Date/ Time Advance Directives No September 7:53pm Living Will No April 27, 2023 5:53am Power of Constitutional Law Professor No April 27 5:53am Advance Directive Response Recorded Date/ Time Advance Directives No September 7:53pm Living Will No April 27, 2023 10:45am Power of Constitutional Law Professor No April 27 10:45am Advance Directive Response Recorded Date/ Time Advance Directives No September 6:53pm Living Will No November 26 11:48pm Power of Constitutional Law Professor No November 26, 2023 11:48pm Advance Directive Response Recorded Date/ Time Living Will No January 26, 2025 7:20am Do you have a Healthcare Power of Constitutional Law Professor? No January 26, 2025 7:20am Advance Directives No September 7:53pm Advance Directive Response Recorded Date/ Time Living Will No November 27 12:48am Do you have a Healthcare Power of Constitutional Law Professor? No November 27, 2023 12:48am Living Will No January 26, 2025 7:20am Do you have a Healthcare Power of Constitutional Law Professor? No January 26, 2025 7:20am Advance Directives No September 7:53pm Reason for Referral Specialty Diagnoses / Procedures Referred By Contac t Referred To Contact Audiology Diagnoses Sudden hearing loss, left Kruger, Alexei Lin MD [address] [place] [address] [address] [place] [address] [facility] [address] [place] [address] Referral ID Status Reason Start Date Expiration Date V isits Requested Visits Authorized [id number] Pending Review 12/04/2023 12/03/2024 1 1 Summary Purpose Additional Source Comments Source Comments (unrecognize d section and content) In the event this informatio n is protected by the Federal Confidentiality of Alcohol and Drug Abuse Patient Records regulations: The Federal rules restrict any use of the information to criminally investigate or prosecute any alcohol or drug abuse patient.[facility] the event this information is protected by the Federal Confidentiality of Alcohol and Drug Abuse Patient Records regulations: The Federal rules restrict any use of the information to criminally investigate or prosecute any alcohol or drug abuse patient.[facility]In the event this information is protected by the Federal Confidentiality of Alcohol and Drug Abuse Patient Records regulations: The Federal rules restrict any use of the information to criminally investigate or prosecute any alcohol or drug abuse patient.[facility] EastIn the event this information is protected by the Federal Confidentiality of Alcohol and Drug Abuse Patient Records regulations: The Federal rules restrict any use of the information to criminally investigate or prosecute any alcohol or drug abuse patient.[facility] EastIn the event this information is protected by the Federal Confidentiality of Alcohol and Drug Abuse Patient Records regulations: The Federal rules restrict any use of the information to criminally investigate or prosecute any alcohol or drug abuse patient.[facility] EastIn the event this information is protected by the Federal Confidentiality of Alcohol and Drug Abuse Patient Records regulations: The Federal rules restrict any use of the information to criminally investigate or prosecute any alcohol or drug abuse patient.[facility] EastIn the event this information is protected by the Federal Confidentiality of Alcohol and Drug Abuse Patient Records regulations: The Federal rules restrict any use of the information to criminally investigate or prosecute any alcohol or drug abuse patient.[facility] EastIn the event this information is protected by the Federal Confidentiality of Alcohol and Drug Abuse Patient Records regulations: The Federal rules restrict any use of the information to criminally investigate or prosecute any alcohol or drug abuse patient.[facility]In the event this information is protected by the Federal Confidentiality of Alcohol and Drug Abuse Patient Records regulations: The Federal rules restrict any use of the information to criminally investigate or prosecute any alcohol or drug abuse patient.[facility] EastIn the event this information is protected by the Federal Confidentiality of Alcohol and Drug Abuse Patient Records regulations: The Federal rules restrict any use of the information to criminally investigate or prosecute any alcohol or drug abuse patient.[facility] EastIn the event this information is protected by the Federal Confidentiality of Alcohol and Drug Abuse Patient Records regulations: The Federal rules restrict any use of the information to criminally investigate or prosecute any alcohol or drug abuse patient.[facility] EastIn the event this information is protected by the Federal Confidentiality of Alcohol and Drug Abuse Patient Records regulations: The Federal rules restrict any use of the information to criminally investigate or prosecute any alcohol or drug abuse patient.[facility] EastIn the event this information is protected by the Federal Confidentiality of Alcohol and Drug Abuse Patient Records regulations: The Federal rules restrict any use of the information to criminally investigate or prosecute any alcohol or drug abuse patient.[facility] EastIn the event this information is protected by the Federal Confidentiality of Alcohol and Drug Abuse Patient Records regulations: The Federal rules restrict any use of the information to criminally investigate or prosecute any alcohol or drug abuse patient.[facility] EastIn the event this information is protected by the Federal Confidentiality of Alcohol and Drug Abuse Patient Records regulations: The Federal rules restrict any use of the information to criminally investigate or prosecute any alcohol or drug abuse patient.[facility] EastIn the event this information is protected by the Federal Confidentiality of Alcohol and Drug Abuse Patient Records regulations: The Federal rules restrict any use of the information to criminally investigate or prosecute any alcohol or drug abuse patient.[facility] EastIn the event this information is protected by the Federal Confidentiality of Alcohol and Drug Abuse Patient Records regulations: The Federal rules restrict any use of the information to criminally investigate or prosecute any alcohol or drug abuse patient.[facility] EastIn the event this information is protected by the Federal Confidentiality of Alcohol and Drug Abuse Patient Records regulations: The Federal rules restrict any use of the information to criminally investigate or prosecute any alcohol or drug abuse patient.[facility] EastIn the event this information is protected by the Federal Confidentiality of Alcohol and Drug Abuse Patient Records regulations: The Federal rules restrict any use of the information to criminally investigate or prosecute any alcohol or drug abuse patient.[facility]In the event this information is protected by the Federal Confidentiality of Alcohol and Drug Abuse Patient Records regulations: The Federal rules restrict any use of the information to criminally investigate or prosecute any alcohol or drug abuse patient.[facility] EastIn the event this information is protected by the Federal Confidentiality of Alcohol and Drug Abuse Patient Records regulations: The Federal rules restrict any use of the information to criminally investigate or prosecute any alcohol or drug abuse patient.[facility]In the event this information is protected by the Federal Confidentiality of Alcohol and Drug Abuse Patient Records regulations: The Federal rules restrict any use of the information to criminally investigate or prosecute any alcohol or drug abuse patient.[facility]In the event this information is protected by the Federal Confidentiality of Alcohol and Drug Abuse Patient Records regulations: The Federal rules restrict any use of the information to criminally investigate or prosecute any alcohol or drug abuse patient.[facility] EastIn the event this information is protected by the Federal Confidentiality of Alcohol and Drug Abuse Patient Records regulations: The Federal rules restrict any use of the information to criminally investigate or prosecute any alcohol or drug abuse patient.[facility]In the event this information is protected by the Federal Confidentiality of Alcohol and Drug Abuse Patient Records regulations: The Federal rules restrict any use of the information to criminally investigate or prosecute any alcohol or drug abuse patient.[facility] EastIn the event this information is protected by the Federal Confidentiality of Alcohol and Drug Abuse Patient Records regulations: The Federal rules restrict any use of the information to criminally investigate or prosecute any alcohol or drug abuse patient.[facility]In the event this information is protected by the Federal Confidentiality of Alcohol and Drug Abuse Patient Records regulations: The Federal rules restrict any use of the information to criminally investigate or prosecute any alcohol or drug abuse patient.[facility]In the event this information is protected by the Federal Confidentiality of Alcohol and Drug Abuse Patient Records regulations: The Federal rules restrict any use of the information to criminally investigate or prosecute any alcohol or drug abuse patient.[facility]In the event this information is protected by the Federal Confidentiality of Alcohol and Drug Abuse Patient Records regulations: The Federal rules restrict any use of the information to criminally investigate or prosecute any alcohol or drug abuse patient.[facility] EastIn the event this information is protected by the Federal Confidentiality of Alcohol and Drug Abuse Patient Records regulations: The Federal rules restrict any use of the information to criminally investigate or prosecute any alcohol or drug abuse patient.[facility]In the event this information is protected by the Federal Confidentiality of Alcohol and Drug Abuse Patient Records regulations: The Federal rules restrict any use of the information to criminally investigate or prosecute any alcohol or drug abuse patient.[facility]In the event this information is protected by the Federal Confidentiality of Alcohol and Drug Abuse Patient Records regulations: The Federal rules restrict any use of the information to criminally investigate or prosecute any alcohol or drug abuse patient.[facility]In the event this information is protected by the Federal Confidentiality of Alcohol and Drug Abuse Patient Records regulations: The Federal rules restrict any use of the information to criminally investigate or prosecute any alcohol or drug abuse patient.[facility]In the event this information is protected by the Federal Confidentiality of Alcohol and Drug Abuse Patient Records regulations: The Federal rules restrict any use of the information to criminally investigate or prosecute any alcohol or drug abuse patient.[facility]In the event this information is protected by the Federal Confidentiality of Alcohol and Drug Abuse Patient Records regulations: The Federal rules restrict any use of the information to criminally investigate or prosecute any alcohol or drug abuse patient.[facility]In the event this information is protected by the Federal Confidentiality of Alcohol and Drug Abuse Patient Records regulations: The Federal rules restrict any use of the information to criminally investigate or prosecute any alcohol or drug abuse patient.[facility]In the event this information is protected by the Federal Confidentiality of Alcohol and Drug Abuse Patient Records regulations: The Federal rules restrict any use of the information to criminally investigate or prosecute any alcohol or drug abuse patient.[facility]In the event this information is protected by the Federal Confidentiality of Alcohol and Drug Abuse Patient Records regulations: The Federal rules restrict any use of the information to criminally investigate or prosecute any alcohol or drug abuse patient.[facility]In the event this information is protected by the Federal Confidentiality of Alcohol and Drug Abuse Patient Records regulations: The Federal rules restrict any use of the information to criminally investigate or prosecute any alcohol or drug abuse patient.[facility]In the event this information is protected by the Federal Confidentiality of Alcohol and Drug Abuse Patient Records regulations: The Federal rules restrict any use of the information to criminally investigate or prosecute any alcohol or drug abuse patient.[facility]In the event this information is protected by the Federal Confidentiality of Alcohol and Drug Abuse Patient Records regulations: The Federal rules restrict any use of the information to criminally investigate or prosecute any alcohol or drug abuse patient.[facility]In the event this information is protected by the Federal Confidentiality of Alcohol and Drug Abuse Patient Records regulations: The Federal rules restrict any use of the information to criminally investigate or prosecute any alcohol or drug abuse patient.[facility]In the event this information is protected by the Federal Confidentiality of Alcohol and Drug Abuse Patient Records regulations: The Federal rules restrict any use of the information to criminally investigate or prosecute any alcohol or drug abuse patient.[facility]In the event this information is protected by the Federal Confidentiality of Alcohol and Drug Abuse Patient Records regulations: The Federal rules restrict any use of the information to criminally investigate or prosecute any alcohol or drug abuse patient.[facility]In the event this information is protected by the Federal Confidentiality of Alcohol and Drug Abuse Patient Records regulations: The Federal rules restrict any use of the information to criminally investigate or prosecute any alcohol or drug abuse patient.[facility]In the event this information is protected by the Federal Confidentiality of Alcohol and Drug Abuse Patient Records regulations: The Federal rules restrict any use of the information to criminally investigate or prosecute any alcohol or drug abuse patient.[facility]In the event this information is protected by the Federal Confidentiality of Alcohol and Drug Abuse Patient Records regulations: The Federal rules restrict any use of the information to criminally investigate or prosecute any alcohol or drug abuse patient.[facility]In the event this information is protected by the Federal Confidentiality of Alcohol and Drug Abuse Patient Records regulations: The Federal rules restrict any use of the information to criminally investigate or prosecute any alcohol or drug abuse patient.[facility]In the event this information is protected by the Federal Confidentiality of Alcohol and Drug Abuse Patient Records regulations: The Federal rules restrict any use of the information to criminally investigate or prosecute any alcohol or drug abuse patient.[facility]In the event this information is protected by the Federal Confidentiality of Alcohol and Drug Abuse Patient Records regulations: The Federal rules restrict any use of the information to criminally investigate or prosecute any alcohol or drug abuse patient.[facility]In the event this information is protected by the Federal Confidentiality of Alcohol and Drug Abuse Patient Records regulations: The Federal rules restrict any use of the information to criminally investigate or prosecute any alcohol or drug abuse patient.[facility]In the event this information is protected by the Federal Confidentiality of Alcohol and Drug Abuse Patient Records regulations: The Federal rules restrict any use of the information to criminally investigate or prosecute any alcohol or drug abuse patient.[facility]In the event this information is protected by the Federal Confidentiality of Alcohol and Drug Abuse Patient Records regulations: The Federal rules restrict any use of the information to criminally investigate or prosecute any alcohol or drug abuse patient.[facility]In the event this information is protected by the Federal Confidentiality of Alcohol and Drug Abuse Patient Records regulations: The Federal rules restrict any use of the information to criminally investigate or prosecute any alcohol or drug abuse patient.[facility]In the event this information is protected by the Federal Confidentiality of Alcohol and Drug Abuse Patient Records regulations: The Federal rules restrict any use of the information to criminally investigate or prosecute any alcohol or drug abuse patient.[facility]In the event this information is protected by the Federal Confidentiality of Alcohol and Drug Abuse Patient Records regulations: The Federal rules restrict any use of the information to criminally investigate or prosecute any alcohol or drug abuse patient.[facility]In the event this information is protected by the Federal Confidentiality of Alcohol and Drug Abuse Patient Records regulations: The Federal rules restrict any use of the information to criminally investigate or prosecute any alcohol or drug abuse patient.[facility]In the event this information is protected by the Federal Confidentiality of Alcohol and Drug Abuse Patient Records regulations: The Federal rules restrict any use of the information to criminally investigate or prosecute any alcohol or drug abuse patient.[facility]In the event this information is protected by the Federal Confidentiality of Alcohol and Drug Abuse Patient Records regulations: The Federal rules restrict any use of the information to criminally investigate or prosecute any alcohol or drug abuse patient.[facility]In the event this information is protected by the Federal Confidentiality of Alcohol and Drug Abuse Patient Records regulations: The Federal rules restrict any use of the information to criminally investigate or prosecute any alcohol or drug abuse patient.[facility]In the event this information is protected by the Federal Confidentiality of Alcohol and Drug Abuse Patient Records regulations: The Federal rules restrict any use of the information to criminally investigate or prosecute any alcohol or drug abuse patient.[facility]In the event this information is protected by the Federal Confidentiality of Alcohol and Drug Abuse Patient Records regulations: The Federal rules restrict any use of the information to criminally investigate or prosecute any alcohol or drug abuse patient.[facility]In the event this information is protected by the Federal Confidentiality of Alcohol and Drug Abuse Patient Records regulations: The Federal rules restrict any use of the information to criminally investigate or prosecute any alcohol or drug abuse patient.[facility]In the event this information is protected by the Federal Confidentiality of Alcohol and Drug Abuse Patient Records regulations: The Federal rules restrict any use of the information to criminally investigate or prosecute any alcohol or drug abuse patient.[facility]In the event this information is protected by the Federal Confidentiality of Alcohol and Drug Abuse Patient Records regulations: The Federal rules restrict any use of the information to criminally investigate or prosecute any alcohol or drug abuse patient.[facility]In the event this information is protected by the Federal Confidentiality of Alcohol and Drug Abuse Patient Records regulations: The Federal rules restrict any use of the information to criminally investigate or prosecute any alcohol or drug abuse patient.[facility]In the event this information is protected by the Federal Confidentiality of Alcohol and Drug Abuse Patient Records regulations: The Federal rules restrict any use of the information to criminally investigate or prosecute any alcohol or drug abuse patient.[facility]In the event this information is protected by the Federal Confidentiality of Alcohol and Drug Abuse Patient Records regulations: The Federal rules restrict any use of the information to criminally investigate or prosecute any alcohol or drug abuse patient.[facility]In the event this information is protected by the Federal Confidentiality of Alcohol and Drug Abuse Patient Records regulations: The Federal rules restrict any use of the information to criminally investigate or prosecute any alcohol or drug abuse patient.[facility]In the event this information is protected by the Federal Confidentiality of Alcohol and Drug Abuse Patient Records regulations: The Federal rules restrict any use of the information to criminally investigate or prosecute any alcohol or drug abuse patient.[facility]In the event this information is protected by the Federal Confidentiality of Alcohol and Drug Abuse Patient Records regulations: The Federal rules restrict any use of the information to criminally investigate or prosecute any alcohol or drug abuse patient.[facility]In the event this information is protected by the Federal Confidentiality of Alcohol and Drug Abuse Patient Records regulations: The Federal rules restrict any use of the information to criminally investigate or prosecute any alcohol or drug abuse patient.[facility]In the event this information is protected by the Federal Confidentiality of Alcohol and Drug Abuse Patient Records regulations: The Federal rules restrict any use of the information to criminally investigate or prosecute any alcohol or drug abuse patient.[facility]In the event this information is protected by the Federal Confidentiality of Alcohol and Drug Abuse Patient Records regulations: The Federal rules restrict any use of the information to criminally investigate or prosecute any alcohol or drug abuse patient.[facility]In the event this information is protected by the Federal Confidentiality of Alcohol and Drug Abuse Patient Records regulations: The Federal rules restrict any use of the information to criminally investigate or prosecute any alcohol or drug abuse patient.[facility]In the event this information is protected by the Federal Confidentiality of Alcohol and Drug Abuse Patient Records regulations: The Federal rules restrict any use of the information to criminally investigate or prosecute any alcohol or drug abuse patient.[facility]In the event this information is protected by the Federal Confidentiality of Alcohol and Drug Abuse Patient Records regulations: The Federal rules restrict any use of the information to criminally investigate or prosecute any alcohol or drug abuse patient.[facility]In the event this information is protected by the Federal Confidentiality of Alcohol and Drug Abuse Patient Records regulations: The Federal rules restrict any use of the information to criminally investigate or prosecute any alcohol or drug abuse patient.[facility]In the event this information is protected by the Federal Confidentiality of Alcohol and Drug Abuse Patient Records regulations: The Federal rules restrict any use of the information to criminally investigate or prosecute any alcohol or drug abuse patient.[facility]In the event this information is protected by the Federal Confidentiality of Alcohol and Drug Abuse Patient Records regulations: The Federal rules restrict any use of the information to criminally investigate or prosecute any alcohol or drug abuse patient.[facility]In the event this information is protected by the Federal Confidentiality of Alcohol and Drug Abuse Patient Records regulations: The Federal rules restrict any use of the information to criminally investigate or prosecute any alcohol or drug abuse patient.[facility]In the event this information is protected by the Federal Confidentiality of Alcohol and Drug Abuse Patient Records regulations: The Federal rules restrict any use of the information to criminally investigate or prosecute any alcohol or drug abuse patient.[facility]In the event this information is protected by the Federal Confidentiality of Alcohol and Drug Abuse Patient Records regulations: The Federal rules restrict any use of the information to criminally investigate or prosecute any alcohol or drug abuse patient.[facility]In the event this information is protected by the Federal Confidentiality of Alcohol and Drug Abuse Patient Records regulations: The Federal rules restrict any use of the information to criminally investigate or prosecute any alcohol or drug abuse patient.[facility] EastIn the event this information is protected by the Federal Confidentiality of Alcohol and Drug Abuse Patient Records regulations: The Federal rules restrict any use of the information to criminally investigate or prosecute any alcohol or drug abuse patient.[facility] EastIn the event this information is protected by the Federal Confidentiality of Alcohol and Drug Abuse Patient Records regulations: The Federal rules restrict any use of the information to criminally investigate or prosecute any alcohol or drug abuse patient.[facility] EastIn the event this information is protected by the Federal Confidentiality of Alcohol and Drug Abuse Patient Records regulations: The Federal rules restrict any use of the information to criminally investigate or prosecute any alcohol or drug abuse patient.[facility] EastIn the event this information is protected by the Federal Confidentiality of Alcohol and Drug Abuse Patient Records regulations: The Federal rules restrict any use of the information to criminally investigate or prosecute any alcohol or drug abuse patient.[facility] EastIn the event this information is protected by the Federal Confidentiality of Alcohol and Drug Abuse Patient Records regulations: The Federal rules restrict any use of the information to criminally investigate or prosecute any alcohol or drug abuse patient.[facility] EastIn the event this information is protected by the Federal Confidentiality of Alcohol and Drug Abuse Patient Records regulations: The Federal rules restrict any use of the information to criminally investigate or prosecute any alcohol or drug abuse patient.[facility] EastIn the event this information is protected by the Federal Confidentiality of Alcohol and Drug Abuse Patient Records regulations: The Federal rules restrict any use of the information to criminally investigate or prosecute any alcohol or drug abuse patient.[facility] EastIn the event this information is protected by the Federal Confidentiality of Alcohol and Drug Abuse Patient Records regulations: The Federal rules restrict any use of the information to criminally investigate or prosecute any alcohol or drug abuse patient.[facility] EastIn the event this information is protected by the Federal Confidentiality of Alcohol and Drug Abuse Patient Records regulations: The Federal rules restrict any use of the information to criminally investigate or prosecute any alcohol or drug abuse patient.[facility] EastIn the event this information is protected by the Federal Confidentiality of Alcohol and Drug Abuse Patient Records regulations: The Federal rules restrict any use of the information to criminally investigate or prosecute any alcohol or drug abuse patient.[facility] EastIn the event this information is protected by the Federal Confidentiality of Alcohol and Drug Abuse Patient Records regulations: The Federal rules restrict any use of the information to criminally investigate or prosecute any alcohol or drug abuse patient.[facility] EastIn the event this information is protected by the Federal Confidentiality of Alcohol and Drug Abuse Patient Records regulations: The Federal rules restrict any use of the information to criminally investigate or prosecute any alcohol or drug abuse patient.[facility] EastIn the event this information is protected by the Federal Confidentiality of Alcohol and Drug Abuse Patient Records regulations: The Federal rules restrict any use of the information to criminally investigate or prosecute any alcohol or drug abuse patient.[facility] Reason for Visit (unrecogniz ed section and content) Reason Comments Results Reason Onset Date Comments Refill Request 02/06/2022 [...] Potassium chlori de Reason Comments Patient Update Reason Comments ER Discharge Summary Reason Comments Establish Care New patient hearing loss after covid Specialty Diagnoses / Procedures Referred By Clive biggs Referred To Contact Audiology Diagnoses Sudden hearing loss, left Alexei Kruger MD [address] [facility] [address] [place] [address] [facility] [address] [place], [place] [id number] Referral ID Status Reason Start Date Expiration Date V isits Requested Visits Authorized [id number] Pending Review 12/04/2023 12/03/2024 1 1 Reason Onset Date Comments Refill Request 12/11/2023 Reason Comments Cough Reason Comments Follow Up 6 month FU Reason Onset Date Comments Refill Request 03/28/2024 Reason Comments Arm Injury Bruising, discomfort and swelling of right forearm Reason Comments Bleeding/Bruising Bruising on right ar m X 2 days Reason Comments Results [facility] Reason Onset Date Comments Refill Request 05/26/2024 Reason Onset Date Comments Refill Request 06/06/2024 Reason Onset Date Comments Patient had refill-enc not needed 07/14/2024 Reason Comments Medicare Wellness Exam Reason Comments Follow Up Blood pressure Reason Comments 2 wk BP check Reason Onset Date Comments Refill Request 09/09/2024 Reason Comments Follow Up Blood presuure Reason Comments Future Appointment Reason Onset Date Comments Refill Request 12/15/2024 Reason Comments ER F/U [facility] ER Reason Comments ER F/U Reason Comments Follow Up Diverticulitis Reason Comments Outside [id number] Ordered Reason Onset Date Comments Refill Request 03/02/2025 Reason Onset Date Comments Results 03/18/2025 Reason Comments Recheck GI issues Reason Comments Outside Testing Carotid US Reason Comments Pain Right mosque Reason Onset Date Comments Results 05/12/2025 Reason Comments Abstract Non [facility] testing - Re nal Artery US Care Teams (unrecognized sec tion and content) Beauty Specialist Relationship Specialty Start Date End Date Fabian Mcmullen MD [address] [place], [place] [id number] PCP - General Family Practice 07/21/17 Beauty Specialist Relationship Specialty Start Date End Date Fabian Mcmullen MD [address] [place], [place] [id number] PCP - General Family Practice 07/21/17 Beauty Specialist Relationship Specialty Start Date End Date Fabian Mcmullen MD [address] [place], [place] [id number] PCP - General Family Practice 07/21/17 Beauty Specialist Relationship Specialty Start Date End Date Fabian Mcmullen MD [address] [place] [address] PCP - General Family Practice 07/21/17 Beauty Specialist Relationship Specialty Start Date End Date Fabian Mcmullen MD [facility] [place] [address] PCP - General Family Medicine 07/21/17 Beauty Specialist Relationship Specialty Start Date End Date Fabian Mcmullen MD [facility] [place] [address] PCP - General Family Medicine 07/21/17 Beauty Specialist Relationship Specialty Start Date End Date Fabian Mcmullen MD [address] [place] [address], [place] [address] PCP - General Family Medicine 07/21/17 Beauty Specialist Relationship Specialty Start Date End Date Fabian Mcmullen MD [address] [place] [address], [place] [address] PCP - General Family Medicine 07/21/17 Beauty Specialist Relationship Specialty Start Date End Date Fabian Mcmullen MD [address] [place] [address], [place] [address] PCP - General Family Medicine 07/21/17 Beauty Specialist Relationship Specialty Start Date End Date Fabian Mcmullen MD [facility] [place] [address] PCP - General Family Medicine 07/21/17 Beauty Specialist Relationship Specialty Start Date End Date Fabian Mcmullen MD [address] [place] [address], [place] [address] PCP - General Family Medicine 07/21/17 Beauty Specialist Relationship Specialty Start Date End Date Fabian Mcmullen MD [facility] [place] [address] PCP - General Family Medicine 07/21/17 Beauty Specialist Relationship Specialty Start Date End Date Fabian Mcmullen MD [address] [place] [address] PCP - General Family Medicine 07/21/17 Beauty Specialist Relationship Specialty Start Date End Date Fabian Mcmullen MD [address] [place] [address] PCP - General Family Medicine 07/21/17 Beauty Specialist Relationship Specialty Start Date End Date Fabian Mcmullen MD [address] [place] [address] PCP - General Family Medicine 07/21/17 Beauty Specialist Relationship Specialty Start Date End Date Fabian Mcmullen MD [facility] [place] [address] PCP - General Family Medicine 07/21/17 Beauty Specialist Relationship Specialty Start Date End Date Fabian Mcmullen MD [address] [place] [address] PCP - General Family Medicine 07/21/17 Beauty Specialist Relationship Specialty Start Date End Date Fabian Mcmullen MD [address] [facility] [place] [address] PCP - General Family Medicine 07/21/17 Beauty Specialist Relationship Specialty Start Date End Date Fabian Mcmullen MD [address] [place] [address] PCP - General Family Medicine 07/21/17 Beauty Specialist Relationship Specialty Start Date End Date Fabian Mcmullen MD [facility] [place] [address] PCP - General Family Medicine 07/21/17 Team Status: Active Member Role Status Dates Dr. Fabian Mcmullen MD Family Provider Active Dr. Fabian Mcmullen MD Primary Care Provider Active Team Status: Inactive Member Role Status Dates Dr. Fabian Mcmullen MD Primary Care Provider, Referri ng Provider Active Dr. Alexei Wells MD Attending Provider Active Team Status: Inactive Member Role Status Dates Dr. Fabian Mcmullen MD Primary Care Provider Active Dr. Alexei Wells MD Attending Provider Active Team Status: Inactive Member Role Status Dates Dr. Fabian Mcmullen MD Primary Care Provider Active Dr. Alexei Wells MD Attending Provider, Referring Pro vider Active Team Status: Inactive Member Role Status Dates Dr. Fabian Mcmullen MD Primary Care Provider Active Dr. Keenan Bowser MD Emergency Provider Active Beauty Specialist Relationship Specialty Start Date End Date Fabian Mcmullen MD [address] [place] [address] PCP - General Family Medicine 07/21/17 Beauty Specialist Relationship Specialty Start Date End Date Fabian Mcmullen MD [address] [place] [address] PCP - General Family Medicine 07/21/17 Team Status: Inactive Member Role Status Dates Dr. Fabian Mcmullen MD Primary Care Provider Active Dr. Keenan Bowser MD Attending Provider, Emergency Provider Active Team Status: Active Member Role Status Dates Dr. Fabian Mcmullen MD Primary Care Provider Active Dr. Tavon Rodriguez DO Emergency Provider Active Dr. Parth Guan MD Admit Provider, Attending Provid er Active Beauty Specialist Relationship Specialty Start Date End Date Fabian Mcmullen MD [address] [place] [address] PCP - General Family Medicine 07/21/17 Beauty Specialist Relationship Specialty Start Date End Date Fabian Mcmullen MD [address] [place] [address] PCP - General Family Medicine 07/21/17 Beauty Specialist Relationship Specialty Start Date End Date Fabian Mcmullen MD [address] [place] [address] PCP - General Family Medicine 07/21/17 Beauty Specialist Relationship Specialty Start Date End Date Fabian Mcmullen MD [address] [place] [address] PCP - General Family Medicine 07/21/17 Beauty Specialist Relationship Specialty Start Date End Date Fabian Mcmullen MD [address] [place] [address] PCP - General Family Medicine 07/21/17 Beauty Specialist Relationship Specialty Start Date End Date Fabian Mcmullen MD [address] [place] [address] PCP - General Family Medicine 07/21/17 Team Status: Active Member Role Status Dates Dr. Fabian Mcmullen MD Primary Care Provider Active Dr. Tavon Rodriguez DO Emergency Provider Active Dr. Parth Guan MD Admit Provider, At tending Provider, Other Provider Active Team Status: Active Member Role Status Dates Dr. Fabian Mcmullen MD Primary Care Provider Active Dr. Tavon Rodriguez DO Emergency Provider Active Dr. Parth Guan MD Admit Provider, Other Provider A ctive Dr. Caitlin Cadena MD Attending Provider, Other Provid er Active Team Status: Inactive Member Role Status Dates Dr. Fabian Mcmullen MD Primary Care Provider, Referri ng Provider Active Dr. Edgar Scott MD Attending Provider Active Team Status: Active Member Role Status Dates Dr. Fabian Mcmullen MD Primary Care Provider Active Dr. Edgar Scott MD Attending Provider, Referring Provider, Other Provider Active Team Status: Active Member Role Status Dates Dr. Fabian Mcmullen MD Primary Care Provider Active Gerhard Juarez SWEEP PRESS OPERATOR, SWEEP PRESS OPERATOR-C Attending Provider Active Team Status: Inactive Member Role Status Dates Dr. Fabian Mcmullen MD Primary Care Provider Active Dr. Edgar Scott MD Attending Provider, Referring Pro vider Active Team Status: Inactive Member Role Status Dates Dr. Fabian Mcmullen MD Primary Care Provider Active Dr. Tavon Rodriguez DO Emergency Provider Active Dr. Parth Guan MD Admit Provider, Other Provider A ctive Dr. Caitlin Cadena MD Attending Provider Active Beauty Specialist Relationship Specialty Start Date End Date Fabian Mcmullen MD [address] [place] [address] PCP - General Family Medicine 07/21/17 Beauty Specialist Relationship Specialty Start Date End Date Fabian Mcmullen MD [address] [place] [address] PCP - General Family Medicine 07/21/17 Beauty Specialist Relationship Specialty Start Date End Date Fabian Mcmullen MD [address] [place] [address] PCP - General Family Medicine 07/21/17 Team Status: Inactive Member Role Status Dates Dr. Fabian Mcmullen MD Primary Care Provider Active Dr. Christian Trejo MD Emergency Provider Active Beauty Specialist Relationship Specialty Start Date End Date Fabian Mcmullen MD [address] [place] [address] [phone] (Work) PCP - General Family Medicine 11/14/23 Beauty Specialist Relationship Specialty Start Date End Date Fabian Mcmullen MD [address] [place] [address] [phone] (Work) PCP - General Family Medicine 11/14/23 Beauty Specialist Relationship Specialty Start Date End Date Fabian Mcmullen MD [address] [place] [address] [phone] (Work) PCP - General Family Medicine 11/14/23 Beauty Specialist Relationship Specialty Start Date End Date Fabian Mcmullen MD [address] [place] [address] PCP - General Family Medicine 07/21/17 Beauty Specialist Relationship Specialty Start Date End Date Fabian Mcmullen MD [address] [place] [address] PCP - General Family Medicine 07/21/17 Beauty Specialist Relationship Specialty Start Date End Date Fabian Mcmullen MD [address] [place] [address] PCP - General Family Medicine 07/21/17 Beauty Specialist Relationship Specialty [place] [address] [place] [address] PCP - General Family Medicine 07/21/17 Beauty Specialist Relationship Specialty Start Date End Date Fabian Mcmullen MD [address] [place] [address] PCP - General Family Medicine 07/21/17 Beauty Specialist Relationship Specialty Start Date End Date Fabian Mcmullen MD [address] [place] [address] PCP - General Family Medicine 07/21/17 Katie Chaudhari APRN.CNP [address] [place] [address] Pony Cylinder Press Operator Family Medicine 09/20/24 Constance Klein PA-C [address] [place] [address] Pony Cylinder Press Operator Family Medicine 09/20/24 Beauty Specialist Relationship Specialty Start Date End Date Fabian Mcmullen MD [address] [place] [address] PCP - General Family Medicine 07/21/17 Katie Chaudhari APRN.CARDROOM MANAGER [address] [place] [address] Pony Cylinder Press Operator Family Medicine 09/20/24 Constance Klein PA-C [address] [place] [address] Pony Cylinder Press Operator Family Medicine 09/20/24 Beauty Specialist Relationship Specialty Start Date End Date Fabian Mcmullen MD [address] [place] [address] PCP - General Family Medicine 07/21/17 Katie Chaudhari APRN.CARDROOM MANAGER [address] [place] [address] Pony Cylinder Press Operator Family Medicine 09/20/24 Constance Klein PA-C [address] [place] [address] Pony Cylinder Press Operator Family Medicine 09/20/24 Beauty Specialist Relationship Specialty Start Date End Date Fabian Mcmullen MD [address] [place] [address] PCP - General Family Medicine 07/21/17 Katie Chaudhari APRN.CARDROOM MANAGER [address] [place] [address] Pony Cylinder Press Operator Family Medicine 09/20/24 Constance Klein PA-C [address] [place] [address] Pony Cylinder Press Operator Family Medicine 09/20/24 Beauty Specialist Relationship Specialty Start Date End Date Fabian Mcmullen MD [address] [place], [place] [address] PCP - General Family Medicine 07/21/17 Katie Chaudhari APRN.CARDROOM MANAGER [address] [place], [place] [address] [facility] 09/20/24 Constance Klein PA-C [address] [place], [place] [address] [facility] 09/20/24 Team Status: Active Member Role Status Dates Dr. Fabian Mcmullen MD Primary Care Provider Active Team Status: Inactive Member Role Status Dates Dr. Fabian Mcmullen MD Primary Care Provider Active Start: January 26, 2025 End: January 26, 2025 Dr. Isaura Shipley , Emergency Provider Active S tart: January 26, 2025 End: January 26, 2025 Beauty Specialist Relationship Specialty Start Date End Date Fabian Mcmullen MD [address] [place] [address] PCP - General Family Medicine 01/19/25 Katie Chaudhari, WAYLON.CARDROOM MANAGER [address] [place], [place] [address] [facility] 09/20/24 Constance Klein PA-C [address] [place], [place] [address] [facility] 09/20/24 Beauty Specialist Relationship Specialty Start Date End Date Fabian Mcmullen MD [address] [place] [address] PCP - General Family Medicine 01/19/25 Katie Chaudhari, MODEL AND PATTERN SUPERVISOR.CARDROOM MANAGER [address] [place] [address] Pony Cylinder Press Operator Family Medicine 09/20/24 Constance Klein PA-C [address] [place] [address] Pony Cylinder Press Operator [facility] 09/20/24 Beauty Specialist Relationship Specialty Start Date End Date Fabian Mcmullen MD [address] [place] [address] PCP - General Family Medicine 01/19/25 Katie Chaudhari, MODEL AND PATTERN SUPERVISOR.CARDROOM MANAGER [facility] [place] [address] Pony Cylinder Press Operator Family Medicine 09/20/24 Constance Klein PA-C [address] [place] [address] Pony Cylinder [facility] Beauty Specialist Relationship Specialty Start Date End Date Fabian Mcmullen MD [address] [place] [address] PCP - General Family Medicine 01/19/25 Katie Chaudhari, MODEL AND PATTERN SUPERVISOR.CARDROOM MANAGER [address] [place] [address] Pony Cylinder Press Operator Family Medicine 09/20/24 Constance Klein PA-C [address] [place] [address] Pony Cylinder Press Operator Family Medicine 09/20/24 Beauty Specialist Relationship Specialty Start Date End Date Fabian Mcmullen MD [address] [place] [address] PCP - General Family Medicine 01/19/25 Katie Chaudhari APRN.CARDROOM MANAGER [facility] [place] [address] Pony Cylinder Press Operator [facility] 09/20/24 Constance Klein PA-C [address] [place] [address] Pony Cylinder [facility] 09/20/24 Beauty Specialist Relationship Specialty Start Date End Date Fabian Mcmullen MD [address] [place] [address] PCP - General Family Medicine 01/19/25 Katie Chaudhari APRN.CARDROOM MANAGER [facility] [place] [address] Pony Cylinder Press Operator [facility] 09/20/24 Constance Klein PA-C [address] [place] [address] [facility] 09/20/24 Team Status: Inactive Member Role Status Dates Dr. Fabian Mcmullen MD Primary Care Provider Active Start: January 26, 2025 End: January 26, 2025 Dr. Isaura Shipley , DO Attending Provider Active S tart: January 26, 2025 End: January 26, 2025 Dr. Isaura Shipley , DO Emergency Provider Active S tart: January 26, 2025 End: January 26, 2025 Team Status: Inactive Member Role Status Dates Dr. Fabian Mcmullen MD Primary Care Provider Active Start: February 20, 2025 End: February 20, 2025 Dr. Fabian Mcmullen MD Referring Provider Active Start: February 20, 2025 End: February 20, 2025 Dr. Aleksandar Quigley DO Attending Provider Active Start: February 20, 2025 End: February 20, 2025 Team Status: Inactive Member Role Status Dates Dr. Fabian Mcmullen MD Primary Care Provider Active Start: February 20, 2025 End: February 20, 2025 Dr. Aleksandar Quigley DO Attending Provider Active Start: February 20, 2025 End: February 20, 2025 Dr. Aleksandar Quigley DO Referring Provider Active Start: February 20, 2025 End: February 20, 2025 Beauty Specialist Relationship Specialty Start Date End Date Fabian Mcmullen MD [address] [place], [place] [address] PCP - General Family Medicine 01/19/25 Constance Klein PA-C [address] [place], [place] [address] [facility] 09/20/24 Team Status: Inactive Member Role Status Dates Dr. Fabian Mcmullen MD Primary Care Provider Active Start: March 04, 2025 End: March 04, 2025 Dr. Fabian Mcmullen MD Referring Provider Active Start: March 04, 2025 End: March 04, 2025 Dr. Aleksandar Quigley DO Attending Provider Active Start: March 04, 2025 End: March 04, 2025 Beauty Specialist Relationship Specialty Start Date End Date Fabian Mcmullen MD [address] [place], [place] [address] PCP - General Family Medicine 01/19/25 Constance Klein PA-C [address] [place], [place] [address] [facility] 09/20/24 Beauty Specialist Relationship Specialty Start Date End Date Fabian Mcmullen MD [address] [place], [place] [id number] PCP - General Family Medicine 01/19/25 Katie Chaudhari APRN.CARDROOM MANAGER [address] [place] [address] [facility] 03/16/25 Constance Klein PA-C [address] [place], [place] [address] [facility] 03/16/25 Beauty Specialist Relationship Specialty Start Date End Date Fabian Mcmullen MD [address] [place] [address] PCP - General Family Medicine 01/19/25 Katie Chaudhari APRN.CARDROOM MANAGER [address] [place] [address] [facility] 03/16/25 Constance Klein PA-C [facility] [place], [place] [address] [facility] 03/16/25 Team Status: Active Member Role/Relationship Status Dates Dr. Fabian Mcmullen MD Primary Care Provider Active Team Status: Inactive Member Role/Relationship Status Dates Dr. Fabian Mcmullen MD Primary Care Provider Active Start: January 26, 2025 End: January 26, 2025 Dr. Isaura Shipley DO Attending Provider Active S tart: January 26, 2025 End: January 26, 2025 Dr. Isaura Shipley DO Emergency Provider Active S tart: January 26, 2025 End: January 26, 2025 Team Status: Inactive Member Role/Relationship Status Dates Dr. Fabian Mcmullen MD Primary Care Provider Active Start: February 20, 2025 End: February 20, 2025 Dr. Fabian Mcmullen MD Referring Provider Active Start: February 20, 2025 End: February 20, 2025 Dr. Aleksandar Quigley DO Attending Provider Active Start: February 20, 2025 End: February 20, 2025 Team Status: Inactive Member Role/Relationship Status Dates Dr. Fabian Mcmullen MD Primary Care Provider Active Start: February 20, 2025 End: February 20, 2025 Dr. Aleksandar Quigley DO Attending Provider Active Start: February 20, 2025 End: February 20, 2025 Dr. Aleksandar Quigley DO Referring Provider Active Start: February 20, 2025 End: February 20, 2025 Team Status: Inactive Member Role/Relationship Status Dates Dr. Fabian Mcmullen MD Primary Care Provider Active Start: March 04, 2025 End: March 04, 2025 Dr. Fabian Mcmullen MD Referring Provider Active Start: March 04, 2025 End: March 04, 2025 Dr. Aleksandar Quigley DO Attending Provider Active Start: March 04, 2025 End: March 04, 2025 Team Status: Inactive Member Role/Relationship Status Dates Dr. Fabian Mcmullen MD Primary Care Provider Active Start: April 15, 2025 End: April 15, 2025 Dr. Fabian Mcmullen MD Referring Provider Active Start: April 15, 2025 End: April 15, 2025 Dr. Alexei Wells MD Attending Provider Active S tart: April 15, 2025 End: April 15, 2025 Beauty Specialist Relationship Specialty Start Date End Date Fabian Mcmullen MD [address] [place] [address] PCP - General Family Medicine 01/19/25 Katie Chaudhari APRN.CNP [address] [place] [address] [facility] 03/16/25 Constance Klein PA-C [address] [place] [address] [facility] 03/16/25 Team Status: Inactive Member Role/Relationship Status Dates Dr. Fabian Mcmullen MD Primary Care Provider Active Start: April 24, 2025 End: April 24, 2025 ELVIS Raza Attending Provider Active Star t: April 24, 2025 End: April 24, 2025 ELVIS Raza Referring Provider Active Star t: April 24, 2025 End: April 24, 2025 Team Status: Active Member Role/Relationship Status Dates Dr. Fabian Mcmullen MD Primary Care Provider Active Start: April 24, 2025 Dr. Alexei Wells MD Attending Provider Active S tart: April 24, 2025 Beauty Specialist Relationship Specialty Start Date End Date aFbian Mcmullen MD [address] [place] [address] PCP - General Family Medicine 01/19/25 Katie Chaudhari, WAYLON.CARDROOM MANAGER [facility] [place] [address] Pony Cylinder Press Operator Family Medicine 03/16/25 Constance Klein PA-C [address] [place] [id number] Pony Cylinder Press Operator Family Medicine 03/16/25 Beauty Specialist Relationship Specialty Start Date End Date Fabian Mcmullen MD [address] [place] [address] PCP - General Family Medicine 01/19/25 Katie Chaudhari, WAYLON.CARDROOM MANAGER [address] [place] [id number] Pony Cylinder Press Operator Family Medicine 03/16/25 Constance Klein PA-C [address] [place] [address] Pony Cylinder Press Operator Family Medicine 03/16/25 Beauty Specialist Relationship Specialty Start Date End Date Fabian Mcmullen MD [address] [place] [address] PCP - General Family Medicine 01/19/25 Katie Chaudhari, MODEL AND PATTERN SUPERVISOR.CARDROOM MANAGER [address] [place] [address] Pony Cylinder Press Operator Family Medicine 03/16/25 Constance Klein PA-C [address] [place], [place] [id number] [employer] Cylinder Press [facility] 03/16/25 Beauty Specialist Relationship Specialty Start Date End Date Fabian Mcmullen MD [address] [place] [id number] PCP - General Family Medicine 01/19/25 Katie Chaudhari, MODEL AND PATTERN SUPERVISOR.CARDROOM MANAGER [address] [place] [id number] Pony Cylinder Press Operator Family Medicine 03/16/25 Constance Klein PA-C [facility] [place], [place] [id number] [facility] 03/16/25 Team Status: Active Member Role/Relationship Status Dates Dr. Fabian Mcmullen MD Primary Care Provider Active Start: May 15, 2025 ELVIS Raza Attending Provider Active Star t: May 15, 2025 ELVIS Raza Referring Provider Active Star t: May 15, 2025 Team Status: Active Member Role/Relationship Status Dates Dr. Fabian Mcmullen MD Primary Care Provider Active Start: May 15, 2025 Dr. Alexei Wells MD Attending Provider Active S tart: May 15, 2025 Team Status: Inactive Member Role/Relationship Status Dates Dr. Fabian Mcmullen MD Primary Care Provider Active Start: May 20, 2025 End: May 20, 2025 Dr. Fabian Mcmullen MD Referring Provider Active Start: May 20, 2025 End: May 20, 2025 ELVIS Raza Attending Provider Active Star t: May 20, 2025 End: May 20, 2025 Goals (unrecognized section and content) Goals may be documented in a n alternate sectionGoals may be documented in an alternate sectionGoals may be documented in an alternate sectionGoals may be documented in an alternate sectionGoals may be documented in an alternate sectionGoals may be documented in an alternate sectionGoals may be documented in an alternate sectionGoals may be documented in an alternate sectionGoals may be documented in an alternate sectionGoals may be documented in an alternate sectionGoals may be documented in an alternate sectionGoals may be documented in an alternate section INFORMATION SOURCE (unrecogn ized section and content) DATE CREATED AUTHOR 12/05/2023 [facility] DATE CREATED AUTHOR AUTHOR'S ORGANIZ ATION 05/20/2025 [facility] DATE CREATED AUTHOR AUTHOR'S ORGANIZ ATION 05/21/2025 [facility] FOR RECORDS PERTAINING TO PATIENTS WHO ARE [...] BE BASED ON THE PRIMARY CLINICAL RECORDS. [employer] provides no warranty or guarantee of the accuracy or completeness of information in this document.
== END | disposition home or self-care (01) ==
LOC: CT 06:02
PROVIDERS: PCP Family Medicine; Referring Provider Physician Assistant; Visit Provider Physician Assistant
DX: I77.3 Arterial fibromuscular dysplasia (principal); R51.9 Headache, unspecified
CPT/HCPCS: 70496; 70498; Q9967; A4216

== ENCOUNTER 2025-10-09 14:04 | Emergency (ER) | payer MEDICARE, OTHER, SELFPAY ==
[2025-10-09] VITALS (7 sets, daily range): BP systolic 171–195; BP diastolic 64–79; PULSE 71–89; RESP 16–18; TEMP 36.1; O2SAT 100
--- NOTE | 2025-10-09 15:26 | CT_ITS ---
PROCEDURE: ABDOMEN/PELVIS W IV CONT ONLY 10/09/2025 REASON FOR EXAM: LLQ WITH PERITONEAL FINDINGS, HX DIVERTICULITIS TECHNIQUE: Procedure Code: [id number] Modality: CT Procedure: ABDOMEN/PELVIS W IV CONT ONLY Coronal and Sagittal reconstruction series were provided. CONTRAST: 100 cc of Isovue 370. One or more dose reduction techniques were used (e.g., Automated exposure control, adjustment of the mA and/or kV according to patient size, use of iterative reconstruction technique. COMPARISON: CT abdomen and pelvis 01/26/2025 FINDINGS: Lung bases: Unremarkable. Liver: Normal size. No mass.. Gallbladder: Unremarkable. No biliary ductal dilatation. Spleen: Normal size. Pancreas: Normal size without evidence of mass surrounding inflammation or ductal dilation. Adrenals: No adrenal masses. Kidneys: Normal renal sizes. No hydronephrosis. Bladder: Unremarkable. Reproductive Organs: Normal uterine size and contour. Ovaries are unremarkable. Bowel: Extensive colonic diverticulosis with thickening of the sigmoid colon concerning for sigmoiditis/diverticulitis. No bowel obstruction. No abscess formation. Appendix: Normal. Lymph nodes: Unremarkable. Vasculature: Diffuse atherosclerotic calcifications. No aneurysm. Peritoneum / Retroperitoneum: No free fluid or air. Bones: S-shaped scoliosis and degenerate changes of the visualized spine. No acute fractures. CT/Abdomen/Pelvis W IV Cont ONLY IMPRESSION: Colonic diverticulosis with thickening of the sigmoid colon concerning for sigm oiditis/diverticulitis. Reading Location: [facility]
[2025-10-09 15:29] LABS: Hematocrit 39.0 % (37-47); Hemoglobin 12.5 g/dL (12.0-15.0); Immature Granulocytes Count 0.020 X10^3/uL (0.0-0.0); Mean Corp Hgb Conc 32.1 g/dL (32-36); Mean Corpuscular Volume 90.7 fL (81-99); Mean Platelet Vol. 10.2 fl (6.2-12.0); NRBC Flagged by Analyzer 0 % (0-5); Platelet Count 259 K/mm3 (150-450); RBC Distribution Width CV 13.9 % (11.6-14.6); RBC Distribution Width SD 46.6 fl (35.1-43.9); Red Blood Count 4.30 M/mm3 (4.2-5.4); White Blood Count 7.4 K/mm3 (4.4-11.0)
--- OUTSIDE RECORDS SUMMARY | 2025-10-09 15:32 | XMS RPT_ITS | CCD ---
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 Fabian Mcmullen Primary Care Provider Dr. Fabian Mcmullen Referring Provider Dr. Alexei Wells Attending Provider [phone] Fabian Mcmullen MD Primary Care Provider Dr. Fabian Mcmullen Primary Care Provider Dr. Fabian Mcmullen Referring Provider Dr. Alexei Wells Attending Provider [phone] Tavon Rodriguez Emergency Provider Dr. Parth Guan Admit Provider Unavailable Dr. Parth Guan Attending Provider Unavailable Dr. Parth Guan Other Provider Unavailable Dr. Caitlin Cadena Attending Provider Dr. Caitlin Cadena Other Provider Dr. Edgar Scott Attending Provider [phone] Edgar Scott Referring Provider [phone] Edgar Scott Other Provider Roof DECORATOR HAND, FITZ-Maddie Ridley Attending Provider Dr. Fabian Mcmullen Primary Care Provider Dr. Edgar Scott Attending Provider [phone] Edgar Scott Referring Provider [phone] Edgar Scott Other Provider Roof DECORATOR HAND, DECORATOR HAND-Maddie Ridley Attending Provider Benedict VALERIO, Fabian Heath Primary Care Provider [phone] FABIAN MCMULLEN Primary Care Unavailable ANA NIETO Attending Unavailable FABIAN MCMULLEN A Primary Care Unavailable ALEXEI KRUGER Attending Unavailable Fabian Mcmullen MD Primary Care Provider Fabian Mcmullen MD Primary Care Provider Radha ENGLISH COMPOSITION TEACHER.CAMPGROUND ATTENDANT, Katie Unavailable Travis Klein PA-Ce Unavailable Dr. Fabian Mcmullen MD Primary Care Provider Quinten STALEY, Dr. Delarosa Emergency Provider Benedict VALERIO, Fabian Heath Primary Care Provider Quinten STALEY, Dr. Delarosa Attending Provider Benedict VALERIO, Dr. Peralta Referring Provider Dann STALEY, Dr. Huertas Attending Provider Dann DO, Dr. Huertas Ref[facility] ENGLISH COMPOSITION TEACHER.CAMPGROUND ATTENDANT, Katie Unavailable Ernie KEATING Constance Unavailable Dr. Alexei Wells MD Attending Provider [phone] Deb Liriano Attending Provider [phone] Deb Liriano Referring Provider [phone] Fabian Mcmullen MD Primary Care Provider Fabian Mcmullen Referring Unavailable Aleksandar Quigley Attending Unavailable Benedict, Fabian Primary Care Unavailable Isaura Shipley Attending Unavailable Benedict, Fabian Primary Care Unavailable Benedict, Fabian Referring Unavailable Benedict, Fabian Primary Care Unavailable Alexei Wells Attending Unavailable Cheung, Deb Referring Unavailable Benedict, Fabian Primary Care Unavailable Cheung, Deb Attending Unavailable Benedict, Fabian Primary Care Unavailable Cheung, Deb Attending Unavailable Cheung, Deb Referring Unavailable Benedict, Fabian Primary Care Unavailable Aleksandar Quigley Attending Unavailable Aleksandar Quigley Referring Unavailable Cheung, Deb Referring Unavailable Benedict, Fabian Primary Care Unavailable Cheung, Deb Attending Unavailable Cheung, Deb Attending Unavailable Benedict, Fabian Primary Care Unavailable Benedict, Fabian Referring Unavailable Benedict, Fabian Referring Unavailable Benedict, Fabian Primary Care Unavailable Aleksandar Quigley Attending Unavailable Benedict, Fabian Primary Care Unavailable Cheung, Deb Referring Unavailable [place], Alexei Attending Unavailable Benedict, Fabian Primary Care Unavailable [place], Alexei Attending Unavailable Benedict, Fabian Referring Unavailable Cheung, Deb Referring Unavailable Benedict, Fabian Primary Care Unavailable [place], Alexei Attending Unavailable CONSTANCE KLEIN Referring Unavailable VLADIMIR MCGHEE Attending Unavailable BENEDICT, FABIAN A Primary Care Unavailable BENEDICT, FABIAN A Primary Care Unavailable CONSTANCE KLEIN Referring Unavailable BENEDICT, FABIAN A Primary Care Unavailable CONSTANCE KLEIN Attending Unavailable CONSTANCE KLEIN Referring Unavailable BENEDICT, FABIAN A Primary Care Unavailable BENEDICT, FABIAN A Primary Care Unavailable VLADIMIR MCGHEE Attending Unavailable CONSTANCE KLEIN Referring Unavailable CONSTANCE KLEIN Referring Unavailable BENEDICT, FABIAN A Primary Care Unavailable VLADIMIR MCGHEE Attending Unavailable BENEDICT, FABIAN A Primary Care Unavailable CONSTANCE KLEIN Attending Unavailable BENEDICT, FABIAN A Attending Unavailable BENEDICT, FABIAN A Primary Care Unavailable BENEDICT, FABIAN A Primary Care Unavailable CONSTANCE KLEIN Referring Unavailable LAISHA NEVAREZ Attending Unavailable BENEDICT, FABIAN A Primary Care Unavailable CONSTANCE KLEIN Attending Unavailable CONSTANCE KLEIN Referring Unavailable BENEDICT, FABIAN A Primary Care Unavailable VLADIMIR MCGHEE Attending Unavailable BENEDICT, FABIAN A Primary Care Unavailable KATIE CHAUDHARI Attending Unavailable BENEDICT, FABIAN A Referring Unavailable BENEDICT, FABIAN A Primary Care Unavailable BENEDICT, FABIAN A Primary Care Unavailable BENEDICT, FABIAN A Referring Unavailable BENEDICT, FABIAN A Primary Care Unavailable ERNIE, CONSTANCE Referring Unavailable BENEDICT, FABIAN A Primary Care Unavailable CONSTANCE KLEIN Attending Unavailable BENEDICT, FABIAN A Referring Unavailable BENEDICT, FABIAN A Primary Care Unavailable BENEDICT, FABIAN A Primary Care Unavailable CONSTANCE KLEIN Attending Unavailable BENEDICT, FABINA A Referring Unavailable BENEDICT, FABIAN A Primary Care Unavailable BENEDICT, FABIAN A Primary Care Unavailable KATIE CHAUDHARI Attending Unavailable BENEDICT, FABIAN A Primary Care Unavailable CONSTANCE KLEIN Attending Unavailable BENEDICT, FABIAN A Attending Unavailable FABIAN MCMULLEN Primary Care Unavailable FABIAN MCMULLEN Primary Care Unavailable FABIAN MCMULLEN Referring Unavailable GUIDO JEFFERS Attending Unavailable FABIAN MCMULLEN Primary Care Unavailable CONSTANCE KLEIN Referring Unavailable Allergies Allergy Classification Reported Allergen(s) Allergy Type Date of Onset Reaction(s) Facility (20 sources) Amoxicillin / Clavulanate; Translations: [AMOXICILLIN-POT CLAVULANATE] Drug Allergy 7 Intolerance, GI Intolerance [facility] Work Phone: (20 sources) Cat; Translations: [CATS] Propensity to adverse reactions 0 Intolerance [facility] Work Phone: (20 sources) Echinacea Preparation; Translations: [ECHINACEA] Drug Allergy 6 Swelling [facility] Work Phone: (20 sources) Pollen; Translations: [POLLEN] Propensity to adverse reactions 0 Intolerance [facility] Work Phone: (20 sources) Sulfonamides (Antibiotic); Translations: [SULFA (SULFONAMIDE ANTIBIOTICS)] Drug Allergy 7 Rash [facility] (20 sources) Ragweed; Translations: [RAGWEED] Propensity to adverse reactions 0 Intolerance, GI Intolerance [facility] Work Phone: (15 sources) Azithromycin Drug Allergy 2 Nausea [facility] (14 sources) Sulfonamides (Antibiotic) Allergy to substance 3 Hives [facility] (11 sources) Ragweed pollen; Translations: [ragweed pollen] Allergy to substance 3 Shortness of breath [facility] (4 sources) Pollen; Translations: [POLLEN EXTRACTS] Propensity to adverse reactions to drug 0 GI Intolerance [facility] (8 sources) Cat Dander; Translations: [CAT DANDER] Propensity to adverse reactions to drug 0 GI Intolerance [facility] Comment on above: Congestion (1 source) Azithromycin Drug Allergy 5 [facility] (1 source) Sulfonamides (Antibiotic) Drug allergy (disorder) 5 [facility] Medications Current Medications Medication Drug Class(es) [...] tablet (20 sources) Bisphosphonate Start: 2 End: take 1 tablet by mouth every week in the morning alendronate (FOSAMAX) 70 mg tablet Take 1 tablet by mouth one time a week. In AM with cup of water on empty stomach. Nothing else by mouth and stay upright for 30 min. 12 tablet 3 03/02/2025 Active Start: 09-05-2022 alendronate (F OSAMAX) 70 MG tablet Take 1 (one) tablet (70 mg total) by mouth over 168 hr . 0 09/05/2022 Active Comment on above: Take 1 tablet by teresa th one time a week. In AM with [...] Take 1 tablet by mouth once daily. 08/03/2022 Active Comment on above: Take 1 tablet by teresa th once daily. calcium carbonate 1500 mg oral tablet (14 sources) Start: take 1 tablet by mouth twice daily Calcium Carbonate 600 mg calcium (1,500 mg) tablet Active 600 mg PO TWICE A DAY March 15, 2023 12:00am supplement doxycycline hyclate 100 mg oral tablet (3 sources) Tetracycline-class Drug Start: 3 End: 3 take 1 tablet by mouth twice daily doxycycline (VIBRA-TABS) 100 mg tablet Take 1 tablet by mouth two times a day for 7 days. 14 tablet 0 08/03/2023 08/10/2023 Active Comment on above: Take 1 tablet by teresa two times a day for 7 days. fluticasone propionate 0.05 mg/actuat metered dose nasal spray (20 sources) Corticosteroid Start: 5 take 2 spray(s) by mouth once daily fluticasone (FLONASE) 50 mcg/actuation nasal spray Indications: Sore throat Use 2 sprays in each nostril once daily. Rinse mouth after use. 16 mL 2 06/30/2025 Active Start: 01-29-2024 End: 06-29-2025 take 2 spray(s) by mouth once daily fluticasone (FLONASE) 50 mcg/actuation nasal spray Indications: Sore throat Use 2 sprays in each nostril once daily. Rinse mouth after use. 16 mL 2 02/12/2025 06/29/2025 Discontinued Start: 11-27-2023 End: 04-15-2025 Fluticasone Propionate 50 mcg/actuation spray,suspension Active 2 NMA INTRANASAL TWICE A DAY as needed April 15, 2025 1:17pm Start: 11-27-2023 Fluticasone Pr opionate Active 2 SPRAY INTRANASAL TWICE A DAY November 27, 2023 12:00am Start: 10-09-2023 take 2 spray(s) by [facility] once daily fluticasone propionate (FLONASE) 50 mcg/actuation [...] once daily. Rinse mouth after use. Gymnema Brockway (Bulk) (7 sources) Start: 11-22-2020 Gymnema Brockway (Bulk) Active 1 GM MC DAILY November 22, 2020 11:16am Start: 11-22-2020 Gymnema [place]way ( Bulk) Active 1 GM MC TWICE A DAY November 22, 2020 12:00am Start: 11-22-2020 Gymnema [place]way ( Bulk) Active 1 GM MC DAILY November 22, 2020 1:00am hydroCHLOROthiazide 12.5 mg oral capsule (20 sources) Thiazide Diuretic Start: 02-14-2018 End: 12-15-2024 take 1 capsule by mouth once daily hydroCHLOROthiazide 12.5 mg capsule Indications: Primary hypertension Take 1 capsule by mouth once daily. 90 capsule 1 12/15/2024 Active Comment on above: Take 1 capsule by [facility] once daily. L.acid/L.casei/B.bif/B.l on/FOS (PROBIOTIC BLEND ORAL) [...] Take 1 tablet by teresa th once daily for 10 days. lisinopril 40 mg oral tablet (20 sources) Angiotensin Converting Enzyme Inhibitor Start: 06-30-20 take 0.5 tablet by mouth twice daily lisinopril (ZESTRIL) 40 mg tablet Indications: Primary hypertension Take 0.5 tablets by mouth two times a day. 90 tablet 1 06/30/2025 Active Start: 09-08-2024 End: 06-29-2025 take 0.5 tablet by mouth twice daily lisinopril (ZESTRIL) 40 mg tablet Indications: Primary hypertension Take 0.5 tablets by mouth two times a day. 90 tablet 1 12/15/2024 06/29/2025 Discontinued Start: 03-15-2023 take 40 mg by mouth [...] take 1 tablet by mouth once daily loratadine (CLARITIN) 10 mg tablet Take 1 tablet by mouth once daily. 30 tablet 11 04/25/2012 Active Comment on above: Take 1 tablet [...] tablet daily Active Multivitamin 1 EACH tablet (8 sources) Start: 10-11-20 15 Multivitamin 1 EACH tablet Active 1 NMA [...] 8 HOURS NEEDED as needed for Nausea 20 November 27, 2023 1:00am January 26, 2025 [...] as needed for nausea and vomiting 7 January 11, 2022 12:00am March 15, 2023 1:16pm oseltamivir 75 mg oral capsule (1 source) Neuraminidase Inhibitor Start: 09-08-2022 End: 09-13-2022 take 1 capsule by mouth twice daily oseltamivir (TAMIFLU) 75 mg capsule Take 1 capsule by mouth twice daily for 5 days. 10 capsule 0 09/08/2022 09/13/2022 Active Comment on above: Take 1 capsule by [facility] twice daily for 5 days. potassium chloride 8 meq extended release oral tablet (20 sources) Start: 11-27-2023 take 1 capsule [...] on above: Take 1 capsule by mo ut twice daily. Take 1 capsule by mo uth two times a day. Take 1 tablet by teresa two times a day. psyllium husk (METAMUCIL ORAL) (12 sources) psyllium husk (METAMUCIL ORAL) Take by [...] / HYDROcodone bitartrate 5 mg oral tablet (12 sources) Opioid Agonist Start: 04-19-2023 End: 04-30-2023 Hydrocodone-Acetaminophen 5-325 mg tablet Discontinued 1 {tbl} PO EVERY 6 HOURS NEEDED as needed for Pain 10 3 0 April 19, 2023 April 30, 2023 3:17pm Diverticulitis On Hold: haven,t needed Start: 04-19-2023 End: 04-30-2023 take 1 tablet by mouth every six hours as needed Hydrocodone-Acetaminophen Discontinued 1 TABLET PO EVERY 6 HOURS NEEDED 10 3 April 19, 2023 April 30, 2023 2:17pm [id number] 200 actuat albuterol 0.09 mg/actuat metered dose [...] mg / clavulanate 125 mg oral tablet (16 sources) Penicillin-class Antibacterial Start: 04-19-2023 End: 04-30-2023 [...] above: Take 1 tablet by teresa th twice daily. Take 1 tablet my mouth every 12 hours benzonatate 100 mg oral capsule (20 sources) Non-narcotic Antitussive Start: End: take 2 capsules by mouth every eight [...] on above: Take 1 capsule by mo [facility] three times daily as needed for cough. Take 2 capsules by [facility] three times a day as needed. Carica Papaya (PAPAYA ENZYME) chew (1 source) End: Carica Papaya (PAPAYA ENZYME) chew Take by mouth. 01/04/2022 Discontinued (Discontinued by Patient) cefadroxil 500 mg oral capsule (5 sources) Cephalosporin Antibacterial Start: End: take 1 capsule by mouth twice daily cefADROxil (DURICEF) 500 mg capsule Take 1 capsule by mouth two times a day. 20 capsule 05/11/2025 05/26/2025 Discontinued cholecalciferol 0.01 mg oral capsule (20 sources) Vitamin D Start: End: take 1 capsule by mouth twice daily Cholecalciferol (Vitamin D3) (Vitamin D3) 10 mcg (400 unit) capsule Discontinued 10 ug PO TWICE A DAY November 27, 2023 1:00am April 15, 2025 1:16pm Start: 11-27-2023 take 1 capsule by [facility] twice daily Cholecalciferol (Vitamin D3) (Vitamin D3) [...] twice daily. ciprofloxacin 500 mg oral tablet (8 sources) Quinolone Antimicrobial Start: 01-27-20 End: 03-04-20 take 1 tablet by mouth twice daily Ciprofloxacin Hcl 500 mg tablet Discontinued 500 mg PO TWICE A DAY January 26, 2025 12:00am March 04, 2025 1:54pm Uyerubdr-Rfnr-Cuc4-C- Joan-Bosw (4 sources) Start: 04-18-20 End: 07-17-20 23 take 1 tablet by mouth twice daily at mealtime Zaejphad-Xsue-Ufe1-C -Joan-Bosw Discontinued 1 TABLET PO TWICE A DAY April 17, 2023 11:00pm April 30, 2023 2:17pm give after food/meal Start: 04-18-2023 End: 04-30-2023 take 1 tablet by mouth twice daily at mealtime Njkozbdc-Asaw-Ihi6-C-Joan-Bosw Discontin ued 1 TABLET PO TWICE A DAY April 18, 2023 12:00am April 30, 2023 3:17pm give after food/meal Start: 04-18-2023 take 1 tablet by teresa th twice daily at mealtime Qgznqerz-Iszu-Ebg6-C-Joan-Bosw Active 1 TABLET PO TWICE A DAY April 18, 2023 12:00am give after food/meal Idtwkibc-Khcy-Dbc8-C-Joan-Garrett sw 750-625-30 mg tablet (8 sources) Start: 04-18-2023 End: 04-30-2023 Yiahcstb-Mkrx-Noc3-C-Joan-Garrett sw 750-625-30 mg tablet Discontinued 1 {tbl} PO TWICE A DAY April 18, 2023 12:00am April 30, 2023 3:17pm joints On Hold: Pt is ill give after food/meal Start: 04-18-2023 End: 04-30-2023 Pgggltdo-Nmul-Fgq3-C-Joan-Garrett sw 750-625-30 mg tablet Discontinued 1 {tbl} PO TWICE A DAY April 18, 2023 12:00am April 30, 2023 3:17pm On Hold: Pt is ill give after food/meal Gymnema Brockway (Bulk) 1 GM powder (8 sources) Start: 11-22-2020 End: 01-26-2025 Gymnema [place]way (Bulk) 1 GM pow renetta Discontinued 1 g MC TWICE A DAY November 22, 2020 1:00am January 26, 2025 7:25am blood sugar Start: 11-22-2020 End: 01-26-2025 Gymnema [place]way (Bulk) 1 GM pow renetta Discontinued 1 g MC TWICE A DAY November 22, 2020 1:00am January 26, 2025 7:25am GYMNEMA LEAF, BULK, MISC (20 sources) End: 05-07-2023 GYMNEMA LEAF, BULK, MISC Discontinued End: 05-07-2023 GYMNEMA LEAF, BULK, MISC GYMNEMA LEAF, BU LK, MISC metoprolol tartrate 50 mg oral tablet (10 sources) beta-Adrenergic Ale Start: 08-06-2023 End: 11-27-2023 take 1 tablet by mouth once Metoprolol Tartrate 50 mg tablet Discontinued 50 mg PO ONCE 1 0 August 06, 2023 12:00am November 27, 2023 2:09am Take one hour prior to test 08/07/23 metroNIDAZOLE 500 mg oral tablet (8 sources) Nitroimidazole Antimicrobial Start: 01-26-2025 End: 03-04-2025 [...] injection (DEFINITY) (20 sources) Start: 2 End: 4 perflutren lipid microspheres 1.3 mL in NaCl (PF) 0.9% 10 mL injection (DEFINITY) predniSONE 20 mg oral tablet (3 sources) Start: 3 End: 3 take 2 tablets by mouth once daily predniSONE (DELTASONE) 20 mg tablet Take 2 tablets by mouth once daily for 5 days. 10 tablet 0 08/03/2023 08/08/2023 Discontinued (Course of therapy completed) Comment on above: Take 2 tablets by mo ut once daily for 5 days. psyllium husk [...] mg/ml prefilled syringe (20 sources) Start: 07-17-20 End: 10-16-19 sodium chloride 0.9 % (flush) 10 mL (BD POSIFLUSH) triamcinolone acetonide 0.055 mg/actuat metered dose nasal spray (20 sources) Corticosteroid Start: 05-17-20 16 End: 01-03-20 take 2 spray(s) nasal route once daily triamcinolone acetonide (NASACORT AQ) 55 mcg nasal inhaler Indications: Allergic rhinitis, unspecified allergic rhinitis type Use 2 Sprays in each nostril once daily. 1 g 5 05/17/2016 01/02/2023 Discontinued Comment on above: Use 2 Sprays in each nostril once daily. Problems Active Problems Problem Classification Problem Date Documented Da te Episodic/Chronic Acute and unspecified renal failure (12 sources) Injury of kidney; Translations: [Acute kidney [...] sources) Anemia; Translations: [Anemia, unspecified] 02-12-2025 Episodic Diseases of white blood cells (12 sources) Leukocytosis; Translations: [Elevated white blood cell count, unspecified] 04-19-2023 Chronic Disorders of teeth and jaw (3 sources) Pain of right temporomandibular joint; Translations: [...] (20 sources) Dehydration; Translations: [Dehydration] 11-22-2020 Episodic Headache; including migraine (16 sources) Headache; Translations: [Headache, unspecified headache type] Onset: 5 Episodic Headache; including migraine (2 sources) Headache; including migraine; Translations: [Headache, unspecified] Onset: 5 Heart valve disorders (20 sources) Nonrheumatic aortic (valve) insufficiency; Translations: [Aortic valve disorders] Onset: 2 Chronic Hemorrhoids (15 sources) Hemorrhoids; Translations: [Unspecified hemorrhoids] 11-22-2020 Episodic [...] Translations: [Primary insomnia] Chronic Nausea and vomiting (15 sources) Nausea and vomiting; Translations: [Nausea with vomiting, unspecified] 01-19-2022 Episodic Noninfectious gastroenteritis (15 sources) Gastroenteritis; Translations: [Noninfective gastroenteritis and colitis, unspecified] 11-23-2020 Episodic Nonspecific chest pain (12 sources) Tight chest; Translations: [Other chest pain] 04-19-2023 Episodic Osteoarthritis (15 sources) Osteoarthritis; Translations: [Unspecified osteoarthritis, unspecified site] 11-22-2020 Chronic Osteoporosis (20 sources) Senile osteoporosis; Translations: [Age-related osteoporosis without current pathological fracture] Onset: 0 09-04-2022 Chronic Other circulatory disease (20 sources) 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; Translations: [Arterial fibromuscular dysplasia] Onset: 2 Chronic Other circulatory disease (20 sources) 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 dysplasia of wall of artery; Translations: [Arterial fibromuscular dysplasia] 03-15-2023 Chronic Comment on above: CTA- images reviewed , irregular contour of distal ICA, R>L, no significant stenosis Other circulatory disease (9 sources) Arterial fibromuscular dysplasia; Translations: [Other specified disorders of arteries and arterioles] Onset: 4 03-15-2023 Chronic Other circulatory disease (11 sources) Low blood pressure; Translations: [Hypotension, unspecified] 04-27-2023 Episodic Other circulatory disease (1 source) Hypotension, unspecified; Translations: [Hypotension, unspecified] 04-27-2023 Episodic Other connective tissue disease (7 sources) Problem of neck; Translations: [Other symptoms and signs involving the musculoskeletal system] Onset: 5 05-26-2025 Episodic Other connective tissue disease (1 source) Other symptoms and signs involving the musculoskeletal system; Translations: [Neck tightness] Onset: 5 Episodic Other ear and sense organ disorders [...] ear] Onset: 4 Episodic Other gastrointestinal disorders (18 sources) Diarrhea; Translations: [Diarrhea, unspecified] 11-23-2020 Episodic Other infections; including parasitic (15 sources) H/O: colitis; Translations: [Personal history of [...] D; Translations: [High vitamin D level] Onset: 4 Chronic Other upper respiratory disease (20 sources) [...] otitis media, right ear] Onset: 4 Episodic Syncope (20 sources) Syncope; Translations: [Syncope and collapse] 11-22-2020 Episodic Unclassified (1 source) Problem of neck 05-26-2025 Unclassified (1 source) Temporal pain; Translations: [Temporal pain] Onset: 5 Past or Other Problems Problem Classification Problem [...] radiation] Onset: 12-03-2011 Resolved: 04-25-2012 04-25-2012 Episodic Deficiency and other anemia (1 source) Anemia, unspecified; Translations: [Anemia, unspecified type] Onset: 03-06-2025 Episodic Diabetes mellitus without complication (20 sources) High hemoglobin A1c level; Translations: [Other abnormal glucose] Onset: 05-14-2019 06-11-2019 Episodic Diseases of mouth; excluding dental (20 sources) Cheilitis; Translations: [Diseases of lips] Onset: 12-03-2011 07-21-2017 Episodic Genitourinary symptoms and ill-defined conditions (2 sources) Nocturia; Translations: [Nocturia] Onset: 03-17-2025 03-17-2025 Episodic Mycoses (20 sources) Cheilitis caused by Carolina species; Translations: [Candidal cheilitis] Onset: 12-03-2011 07-21-2017 Episodic Other aftercare (20 sources) Patient encounter status; Translations: [Other vermin exterminator (current) drug therapy] Onset: 07-21-2017 07-06-2021 Episodic Other bone disease and musculoskeletal deformities (14 sources) Osteopenia; Translations: [Other specified disorders of bone density and structure, unspecified site] Onset: 11-30-2009 07-21-2017 Episodic Other gastrointestinal disorders (6 sources) Loose stool; Translations: [Other fecal abnormalities] Onset: 07-10-2019 07-10-2019 Episodic Other gastrointestinal disorders (2 sources) Diarrhea, unspecified; Translations: [Diarrhea] Onset: 02-12-2025 05-01-2023 Episodic Other infections; including parasitic (20 [...] 04-25-2012 04-25-2012 Episodic Other upper respiratory infections (11 sources) Sore throat symptom; Translations: [Acute pharyngitis, unspecified] Onset: 09-30-2024 Episodic Residual codes; unclassified (20 sources) Insomnia; Translations: [Insomnia, unspecified] Onset: 11-29-2016 07-21-2017 Episodic Residual codes; unclassified (15 sources) History of colonoscopy; Translations: [Other specified [...] Test Name Value Interpretation Reference Range Facility [facility] 08-05-2025 CNTHERAPY OT/PT/Speech Visit (PTWS) -------- FRANCILAURENCE Kendal ([id number]) 1950 F Date Time Provider Department 08/05/25 10:30 AM VLADIMIR MCGHEE PTWS Date Time Provider Department Center 08/05/2025 10:30 AM [id number], SEAN PTWS Dorene Renteria Reason for Visit: PT Discharge [752] Primary Visit Diagnosis:Headache, unspecified headache type [R51.9] Other Visit Diagnosis:Neck tightness [R29.898] Allergies As of Date: 08/05/2025 Noted Allergy Reaction SULFA (SULFONAMIDE ANTIBIOTICS) 05/15/2007 [...] RAGWEED 12/24/2009 5 - Intolerance Date Reviewed: 07/07/2025 Reviewed by: Laisha Nevarez PA-C - Fully Assessed Prescriptions as of 08/06/2025 - hydroCHLOROthiazide 12.5 mg capsule Take 1 capsule by mouth once daily. - alendronate (FOSAMAX) 70 mg tablet Take 1 tablet by mouth one time a week. In AM with cup of water on empty stomach. Nothing else by mouth and stay upright for 30 min. - lisinopril (ZESTRIL) 40 mg tablet Take 0.5 tablets by mouth two times a day. - fluticasone (FLONASE) 50 mcg/actuation nasal spray Use 2 sprays in each nostril once daily. Rinse mouth after use. - Potassium Chloride (KLOR-CON 8) 8 mEq tablet Take 1 tablet by mouth two times a day. - psyllium husk (METAMUCIL ORAL) Take by [...] Take 1 tablet by mouth once daily. Normal [facility] CNTHERAPYon 07-24-2025 CNTHERAPY OT/PT/Speech Visit (PTWS) -------- LAURENCE KOROMA ([id number]) 1950 F Date Time Provider Department 07/24/25 11:15 AM VLADIMIR MCGHEE PTWS Date Time Provider Department [place] 07/24/2025 11:15 AM [id number], SEAN PTWS Dorene Renteria Reason for Visit: Physical Therapy [503] Primary Visit Diagnosis:Headache, unspecified headache type [R51.9] Other Visit Diagnosis:Neck tightness [R29.898] Allergies As of Date: 07/24/2025 Noted Allergy Reaction SULFA (SULFONAMIDE ANTIBIOTICS) 05/15/2007 [...] RAGWEED 12/24/2009 5 - Intolerance Date Reviewed: 07/07/2025 Reviewed by: Laisha Nevarez PA-C - Fully Assessed Prescriptions as of 07/24/2025 - hydroCHLOROthiazide 12.5 mg capsule Take 1 capsule by mouth once daily. - alendronate (FOSAMAX) 70 mg tablet Take 1 tablet by mouth one time a week. In AM with cup of water on empty stomach. Nothing else by mouth and stay upright for 30 min. - lisinopril (ZESTRIL) 40 mg tablet Take 0.5 tablets by mouth two times a day. - fluticasone (FLONASE) 50 mcg/actuation nasal spray Use 2 sprays in each nostril once daily. Rinse mouth after use. - Potassium Chloride (KLOR-CON 8) 8 mEq tablet Take 1 tablet by mouth two times a day. - psyllium husk (METAMUCIL ORAL) Take by [...] Take 1 tablet by mouth once daily. Normal [facility] CNTHERAPYon 07-08-2025 CNTHERAPY OT/PT/Speech Visit (PTWS) -------- LAURENCE KOROMA ([id number]) 1950 F Date Time Provider Department 07/08/25 10:30 AM VLADIMIR MCGHEE PTWS Date Time Provider Department [place] 07/08/2025 10:30 AM [id number], SEAN PTWS Dorene Renteria Reason for Visit: PT Progress Note [7806] Primary Visit Diagnosis:Headache, unspecified headache type [R51.9] Other Visit Diagnosis:Neck tightness [R29.898] Allergies As of Date: 07/08/2025 Noted Allergy Reaction SULFA (SULFONAMIDE ANTIBIOTICS) 05/15/2007 [...] RAGWEED 12/24/2009 5 - Intolerance Date Reviewed: 07/07/2025 Reviewed by: Laisha Nevarez PA-C - Fully Assessed Prescriptions as of 07/10/2025 - lisinopril (ZESTRIL) 40 mg tablet Take 0.5 tablets by mouth two times a day. - fluticasone (FLONASE) 50 mcg/actuation nasal spray Use 2 sprays in each nostril once daily. Rinse mouth after use. - Potassium Chloride (KLOR-CON 8) 8 mEq tablet Take 1 tablet by mouth two times a day. - psyllium husk (METAMUCIL ORAL) Take by [...] and stay upright for 30 min. - hydroCHLOROthiazide 12.5 mg capsule Take 1 [...] Take 1 tablet by mouth once daily. Normal [facility] CNOVon 07-07-2025 CNOV Office Visit (NEMOWS ) -------- LAURENCE KOROMA ([id number]) 1950 F Date Time Provider Department 07/07/25 8:30 AM LAISHA NEVAREZ During your visit today, we recorded the following information about you: Pulse Respiration Blood pressure Weight 87/minute 16/minute 174/72 44.9 kg Laisha Nevarez PA-C 07/07/2025 9:32 AM Signed [facility] Date: July 07, 2025 Patient Name: Laurence Koroma Referring provider: Constance Klein PA-C [address] [facility] [address] Consult requested for headache by Constance Klein PA-C. Recommendations will be communicated via shared medical record or US mail. Primary physician: Fabian Mcmullen [address] [place] [id number] Reason for Evaluation: Headaches Subjective HPI Laurence Koroma is a 74 year old female who presents for evaluation of headache. Constance Klein PA-C is the referring provider. Dr. Fabian Mcmullen MD is the PCP. Chart review: Saw PCP for CLAYTON on 05/26/25 Headache and Eye Pain: - Onset: Began around April 26. - Location: Initially behind the eye, now a dull ache in the temporal area. - Duration: Persistent for about a month. - Severity: Initially more painful, now subsided to a dull ache. - Associated Symptoms: Sensitivity and tenderness in the head, no visible rash or redness. - Aggravating Factors: Physical activity and rushing around. - Alleviating Factors: Antibiotic treatment. - Denies known trauma or injury. - Recent CT scan showed no significant issues in the arteries around the head. - Lexie has a history of poor posture and neck issues, previously treated with physical therapy. - Scheduled dental appointment to check for potential bite issues contributing to the pain. Sent to PT, CRP and ESR negative. Patient presents for evaluation of headache. Started in April, located to the right jew and was originally at the posterior aspect of the head as well but this is resolved. 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 However imaging not related to headaches. Continue to follow with primary care who started physical therapy and notes some moderate improvement in her symptoms since that time. Also follow-up with her dentist who recommended a bite guard but patient does not want to use this. Headache is now mild and only occurs some days but still to the right jew. At 1 point she did have a curtain coming over her right eye but this only happened once and improved with stretching. No other symptoms associated with this head pain. Has not taken anything for it as she does not like to take medications. Has never happened before. Notes that she is under a lot of stress with her daughter and son-in-law financially and feels this is contributing. Did see her eye doctor last Sunday with normal evaluation. Current Headache treatment Preventative: none Abortive: OTC Medications effective? no Previous imaging: CTA head and neck Previous Medications: Lisinopril Headache Description Onset: April Total headache days per month: almost daily Total headache attacks per month: almost daily Headache free days: Yes Duration of attacks: on and off Severity of headaches? mild Onset to Peak: gradual Location: right jew. Aura: None Prodrome:none. Accompanying symptoms: once she had a curtain over the right eye but then went away after stretching. Quality:just a pain. Worse with activity: No Triggers: stress. Cough/sneeze/valsalva as trigger: no Positional changes: No Most common time of day for headache to begin:would wake up with it. ROS Review of Systems CONSTITUTIONAL: No reported fevers, chills, night sweats, or significant unintentional weight loss. EYES: No visual changes indicated. No eye pain or orbital swelling reported. HEENT: No hearing changes or vertiginous symptoms indicated. No history of nose bleeds reported. RESPIRATORY: No reported cough, wheezing and dyspnea. CARDIOVASCULAR: Negative for significant chest pain and palpitations per report. GI: Negative for significant abdominal discomfort, blood in stools or black stools reported. No recent reported change in bowel habits. : No reported history of incontinence. No dark/cola colored urine reported. MUSCLOSKELETAL: No history of significant joint pain or swelling, or myalgias reported. SKIN: Negative for pertinent lesions, rash, and itching per report. HEMATOLOGY/ONCOLOGY: Negative for reported prolonged bleeding, bruising easily, and swollen nodes. ENDOCRINE: Negative for reported significant cold or heat intolerance, no reported goitrous neck swelling or polydipsia PSYCH: No reported depression or anxiety symptoms. No reported SI or HI. NEURO: Per HPI a (more content not included)... Normal [facility] CNTHERAPYon 06-26-2025 CNTHERAPY OT/PT/Speech Visit (PTWS) -------- LAURENCE KOROMA ([id number]) 1950 F Date Time Provider Department 06/26/25 10:30 AM GUIDO JEFFERS PTWS Date Time Provider Department Center 06/26/2025 10:30 AM [id number], JOSEPH PTWS Dorene Renteria Reason for Visit: Physical Therapy [503] Primary Visit Diagnosis:Headache, unspecified headache type [R51.9] Other Visit Diagnosis:Neck tightness [R29.898] Allergies As of Date: 06/26/2025 Noted Allergy Reaction SULFA (SULFONAMIDE ANTIBIOTICS) 05/15/2007 [...] RAGWEED 12/24/2009 5 - Intolerance Date Reviewed: 05/26/2025 Reviewed by: Elina Mckenzie LPN - Fully Assessed Prescriptions as of 06/26/2025 - Potassium Chloride (KLOR-CON 8) 8 mEq tablet Take 1 tablet by mouth two times a day. - psyllium husk (METAMUCIL ORAL) Take by [...] Take 1 tablet by mouth once daily. Normal [facility] CBC W Auto Differential pane l (Bld)on 06-11-2025 Basophils (Bld) [#/Vol] 0.07 10*3/uL Normal <0.11 [facility] Comment on above: Order Comment: Speci men Type: BLOOD SPECIMENOrdering Facility: [facility] Address: [address] [place] [address] Performed By: #### 5 7021-8 ####[facility] LABCLIA [id number] [place] [address] [place] Basophils/100 WBC (Bld) 1.0 % Normal C [facility] Comment on above: Order Comment: Speci men Type: BLOOD SPECIMENOrdering Facility: [facility] Address: [address] [place] [address] Performed By: #### 5 7021-8 ####[facility] LABCLIA [id number] [address], [place] [address] [place] Differential cell count method Nom (Bld) Auto Normal [facility] Comment on above: Order Comment: Speci men Type: BLOOD SPECIMENOrdering Facility: [facility] Address: [address] [place] [address] Performed By: #### 5 7021-8 ####[facility] LABCLIA [id number] [address], [place] [address] [place] Eosinophils (Bld) [#/Vol] 0.22 10*3/uL Normal <0.46 [facility] Comment on above: Order Comment: Speci men Type: BLOOD SPECIMENOrdering Facility: [facility] Address: [address] [place] [address] Performed By: #### 5 7021-8 ####[facility] LABCLIA [id number] [place] [address] [place] Eosinophils/100 WBC (Bld) 3.2 % Normal [facility] Comment on above: Order Comment: Speci men Type: BLOOD SPECIMENOrdering Facility: [facility] Address: [address] [place] [address] Performed By: #### 5 7021-8 ####[facility] LABCLIA [id number] [address], [place] [address] [place] Erythrocyte distribution width (RBC) [Ratio] 14.3 % Normal 11.5-15.0 [facility] Comment on above: Order Comment: Speci men Type: BLOOD SPECIMENOrdering Facility: [facility] Address: [address] [place] [address] Performed By: #### 5 7021-8 ####[facility] LABCLIA [id number] [address], [facility] [place] Hematocrit (Bld) [Volume fraction] 37.3 % Normal 36.0-46.0 [facility] Comment on above: Order Comment: Speci men Type: BLOOD SPECIMENOrdering Facility: [facility] Address: [address] [place] [address] Performed By: #### 5 7021-8 ####[facility] LABCLIA [id number] [place] [address] [place] Hemoglobin (Bld) [Mass/Vol] 12.4 g/dL Normal 11.5-15.5 [facility] Comment on above: Order Comment: Speci men Type: BLOOD SPECIMENOrdering Facility: [facility] Address: [address] [place] [address] Performed By: #### 5 7021-8 ####[facility] LABCLIA [id number] [place] [address] [place] Immature granulocytes (Bld) [#/Vol] 0.06 10*3/uL Normal <0.10 [facility] Comment on above: Order Comment: Speci men Type: BLOOD SPECIMENOrdering Facility: [facility] Address: [address] [place] [address] Performed By: #### 5 7021-8 ####[facility] LABCLIA [id number] [place] [address] [place] Immature granulocytes/100 WBC (Bld) 0.9 % Normal [facility] Comment on above: Order Comment: Speci men Type: BLOOD SPECIMENOrdering Facility: [facility] Address: [address] [place] [address] Performed By: #### 5 7021-8 ####[facility] LABCLIA [id number] [place] [address] [place] Lymphocytes (Bld) [#/Vol] 2.76 10*3/uL Normal 1.00-4.0 0 [facility] Comment on above: Order Comment: Speci men Type: BLOOD SPECIMENOrdering Facility: [facility] Address: [address] [place] [address] Performed By: #### 5 7021-8 ####[facility] LABCLIA [id number] [place] [address] [place] Lymphocytes/100 WBC (Bld) 40.4 % Normal [facility] Comment on above: Order Comment: Speci men Type: BLOOD SPECIMENOrdering Facility: [facility] Address: [address] [place] [address] Performed By: #### 5 7021-8 ####[facility] LABCLIA [id number] [place] [address] [place] MCH (RBC) [Entitic mass] 30.5 pg Normal 26.0-34.0 [facility] Comment on above: Order Comment: Speci men Type: BLOOD SPECIMENOrdering Facility: [facility] Address: [address] [place] [address] Performed By: #### 5 7021-8 ####[facility] LABIA [id number] [place] [address] [place] MCHC (RBC) [Mass/Vol] 33.2 g/dL Normal 30.5-36.0 [facility] Comment on above: Order Comment: Speci men Type: BLOOD SPECIMENOrdering Facility: [facility] Address: [address] [place] [address] Performed By: #### 5 7021-8 ####[facility] LABIA [id number] [place] [address] [place] MCV (RBC) [Entitic vol] 91.6 fL Normal 80.0-100.0 C [facility] Comment on above: Order Comment: Speci men Type: BLOOD SPECIMENOrdering Facility: [facility] Address: [address] [place] [address] Performed By: #### 5 7021-8 ####[facility] LABCLIA [id number] [place] [address] [place] Monocytes (Bld) [#/Vol] 0.57 10*3/uL Normal <0.87 [facility] Comment on above: Order Comment: Speci men Type: BLOOD SPECIMENOrdering Facility: [facility] Address: [address] [place] [address] Performed By: #### 5 7021-8 ####[facility] LABCLIA [id number] [place] [address] [place] Monocytes/100 WBC (Bld) 8.3 % Normal [facility] Comment on above: Order Comment: Speci men Type: BLOOD SPECIMENOrdering Facility: [facility] Address: [address] [place] [address] Performed By: #### 5 7021-8 ####[facility] LABIA [id number] [place] [address] [place] Neutrophils (Bld) [#/Vol] 3.15 10*3/uL Normal 1.45-7.5 0 [facility] Comment on above: Order Comment: Speci men Type: BLOOD SPECIMENOrdering Facility: [facility] Address: [address] [place] [address] Performed By: #### 5 7021-8 ####[facility] LABIA [id number] [address] [place] Neutrophils/100 WBC (Bld) 46.2 % Normal [facility] Comment on above: Order Comment: Speci men Type: BLOOD SPECIMENOrdering Facility: [facility] Address: [address] [place] [address] Performed By: #### 5 7021-8 ####[facility] LABIA [id number] [place] [address] [place] Nucleated RBC (Bld) [#/Vol] 10*3/uL Normal <0.01 [facility] Comment on above: Order Comment: Speci men Type: BLOOD SPECIMENOrdering Facility: [facility] Address: [address] [place] [address] Performed By: #### 5 7021-8 ####[facility] LABCLIA [id number] [address] [place] [address] [place] Nucleated RBC/100 WBC (Bld) [Ratio] 0.0 /100 WBC Normal [facility] Comment on above: Order Comment: Speci men Type: BLOOD SPECIMENOrdering Facility: [facility] Address: [address] [place] [address] Performed By: #### 5 7021-8 ####[facility] LABCLIA [id number] [address] [place] [address] [place] Platelet mean volume (Bld) [Entitic vol] 10.9 fL Normal 9.0-12.7 [facility] Comment on above: Order Comment: Speci men Type: BLOOD SPECIMENOrdering Facility: [facility] Address: [address] [place] [address] Performed By: #### 5 7021-8 ####[facility] LABIA [id number] [place] [address] [place] Platelets (Bld) [#/Vol] 293 10*3/uL Normal 150-400 [facility] Comment on above: Order Comment: Speci men Type: BLOOD SPECIMENOrdering Facility: [facility] Address: [address] [place] [address] Performed By: #### 5 7021-8 ####[facility] LABIA [id number] [address], [facility] [place] RBC (Bld) [#/Vol] 4.07 10*6/uL Normal 3.90-5.20 [facility] Comment on above: Order Comment: Speci men Type: BLOOD SPECIMENOrdering Facility: [facility] Address: [address] [place] [address] Performed By: #### 5 7021-8 ####[facility] LABIA [id number] [address] [place] [address] [place] WBC (Bld) [#/Vol] 6.83 10*3/uL Normal 3.70-11.00 [facility] Comment on above: Order Comment: Speci men Type: BLOOD SPECIMENOrdering Facility: [facility] Address: [address] [place] [address] Performed By: #### 5 7021-8 ####[facility] LABCLIA [id number] [place] [address] [place] Ferritin SerPl-ncon 2024 Ferritin [Mass/Vol] 38.3 ng/mL Normal 14.7-205.1 [facility] Comment on above: Order Comment: Speci men Type: BLOOD SPECIMENOrdering Facility: [facility] Address: [address] [place] [address] Performed By: #### 2 284-8, 16638-6, 2275-4, 9 ####[facility] LABCLIA [id number] [place] [address] [place] Folate SerPl-ncon 06-11-20 25 Folate [Mass/Vol] ng/mL Normal >4.7 [facility] Comment on above: Order Comment: Speci men Type: BLOOD SPECIMENOrdering Facility: [facility] Address: [address] [place] [address] Result Comment: A re sult of > 20 ng/mL is not necessarily indicative of a pathologic or treatable condition: it reflects a limitation of the test methodology. Assay reference range: 4.8 to 24.2 ng/mL. Suitable for detection of folate deficiency. Reference: Folate III (Folate III) [package insert V 1.0 Croatian]. [facility], [place], [place]: August 2015. Performed By: #### 2 284-8, 06106-6, 2275-4, 9 ####[facility] LABCLIA [id number] [place] [address] [place] Iron and Iron binding capaci ty panelon 06-11-2025 Iron [Mass/Vol] 57 ug/dL Normal 41-186 [facility] Comment on above: Order Comment: Speci men Type: BLOOD SPECIMENOrdering Facility: [facility] Address: [address] [place] [address] Performed By: #### 2 284-8, 40482-7, 2276-01, 2132-06 ####[facility] LABCLIA [id number] [place] [address] [place] Iron binding capacity [Mass/Vol] 365 ug/dL Normal 232-386 [facility] Comment on above: Order Comment: Speci men Type: BLOOD SPECIMENOrdering Facility: [facility] Address: [address] [place] [address] Performed By: #### 2 284-8, 53226-1, 2276-01, 2132-06 ####[facility] LABCLIA [id number] [address] [place] Iron/TIBC [Molar ratio] 15.6 % Normal 15.0-57.[address] [facility] Comment on above: Order Comment: Speci men Type: BLOOD SPECIMENOrdering Facility: [facility] Address: [address] [place] [address] Performed By: #### 2 284-8, 15109-2, 2276-01, 2132-06 ####[facility] LABCLIA [id number] [place] [address] [place] Vit B12 [facility] 06-11-2 025 Cobalamin (Vitamin B12) [Mass/Vol] 662 pg/mL Normal 232-1245 [facility] Comment on above: Order Comment: Speci men Type: BLOOD SPECIMENOrdering Facility: [facility] Address: [address] [place] [address] Performed By: #### 2 284-8, 97830-3, 2276-01, 2132-06 ####[facility] LABCLIA [id number] [place] [address] [place] [id number] 06-09-2025 [id number] HNO ID: [id number] Author: VLADIMIR MCGHEE PT Service: ? Author Type: Physical Therapist Type: [id number] Filed: 06/09/2025 14:06 Note Text: [facility] Physical Therapy Plan of Care Certification Patient Name: Laurence Koroma : 1950 [facility] #: [id number] Date: 06/09/2025 To: Constance Klein PA-C From Therapist: Vladimir Mcghee PT RE: Patient Certification/ Recertification Your review, approval and electronic signature are required in order to comply with Payor: MEDICARE / Plan: MEDICARE A AND B / Product Type: Medicare / regulations. The identified Physical Therapy PLAN OF CARE for the patient is as follows: R51.9 Headache, unspecified headache type (primary encounter diagnosis) R29.898 Neck tightness PLAN OF CARE: Assessment: Laurence Koroma presents with chief complaint of neck pain and CLAYTON's that interferes with heavy exertion, physical activities, sleeping, cleaning, cooking . The patient presents with impairments in ADL's, overall function, range of motion, symptom management, and tissue tenderness. Patient did not complete the PROMIS? (Patient Reported Outcome Measures Information System). Prognosis for therapy is Fair due to: clinical presentation, chronic nature of impairments, advanced age, multiple co- morbidities . The patient will benefit from skilled therapy services to meet the goals established for this plan of care as noted below. Goals for Episode of Care: established Independent in a Home Exercise Program. Patient will decrease pain rating by 2 points to meet minimal clinical important difference for numeric pain rating scale. Restore pain free cervical ROM to minimal to nil limitations to allow for decreased pain and improved functional mobility. Drive with no aggravation of pain/symptoms. Sleep throughout the night without pain/symptoms. Patient will demonstrate 50% reduction is cervical and fascial muscles upon palpation. Time Frame for Goals and Treatment : 08/09/25 Planned Interventions, Frequency, and Duration: Current Frequency: 1x/week Duration: 8 weeks Total Number of Visits Planned: 8 Planned Treatment Interventions: Therapeutic exercise (54123), Neuromuscular re-education (60522), Manual therapy (51146), Therapeutic activities (09043), Self-fci management (55081), Patient/Family/Caregiver Education, Body Mechanics Training PLAN FOR NEXT VISIT: Gentle manual. No manipulations or anything higher than grade 2-3 mobs due to vascular history. Assess compliance with initial stretches and HEP Patient demonstrates good understanding of plan of care and treatment. The above goals and plan of care were discussed and agreed upon by patient/family. For further details regarding this patient refer to the Physical Therapy electronically documented visit dated 06/09/2025. Provider Attestation I have reviewed the treatment plan for Laurence Koroma [facility]# [id number] for the period of 06/09/25 -- 08/09/25, established on 06/09/2025. Signature certifies the need for therapy services. Normal [facility] CNTHERAPYon 06-09-2025 CNTHERAPY OT/PT/Speech Visit (PTWS) -------- LAURENCE KOROMA ([id number]) 1950 F Date Time Provider Department 06/09/25 10:00 AM VLADIMIR MCGHEE PTEVELIN Date Time Provider Department Center 06/09/2025 10:00 AM [id number], SEAN PTWS [employer] Reason for Visit: PT Eval [747] Primary Visit Diagnosis:Headache, unspecified headache type [R51.9] Other Visit Diagnosis:Neck tightness [R29.898] Allergies As of Date: 06/09/2025 Noted Allergy Reaction SULFA (SULFONAMIDE ANTIBIOTICS) 05/15/2007 [...] RAGWEED 12/24/2009 5 - Intolerance Date Reviewed: 05/26/2025 Reviewed by: Elina Mckenzie LPN - Fully Assessed Prescriptions as of 06/09/2025 - Potassium Chloride (KLOR-CON 8) 8 mEq tablet Take 1 tablet by mouth two times a day. - psyllium husk (METAMUCIL ORAL) Take by [...] Take 1 tablet by mouth once daily. 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 Date: 06-09-2025 Prepared By: Vladimir Mcghee Program Notes Exercises - Seated Neck Sidebending Stretch - 3 x daily - 7 x weekly - 1 sets - 3 reps - Seated Chin Tuck with Neck Elongation - 1 x daily - 7 x weekly - 3 sets - 10 reps - Seated Cervical Rotation AROM - 1 x daily - 7 x weekly - 3 sets - 10 reps Normal [facility] THERAPY NTon 06-09-2025 THERAPY NT HNO ID: [id number] Author: VLADIMIR MCGHEE PT Service: ? Author Type: Physical Therapist Type: Therapy (PT/OT/Speech/Resp) Filed: 06/09/2025 10:42 Note Text: Program_ID:[id number] Access Code: [email or web address] URL: [email or web address]/ Date: 06-09-2025 Prepared By: Vladimir Mcghee Program Notes Exercises - Seated Neck Sidebending Stretch - 3 x daily - 7 x weekly - 1 sets - 3 reps - Seated Chin Tuck with Neck Elongation - 1 x daily - 7 x weekly - 3 sets - 10 reps - Seated Cervical Rotation AROM - 1 x daily - 7 x weekly - 3 sets - 10 reps Normal [facility] CNOVon 05-26-2025 CNOV Office Visit (JORGEWS ) -------- LAURENCE KOROMA ([id number]) 1950 F Date Time Provider Department 05/26/25 10:00 AM CONSTANCE KLEIN During your visit today, we recorded the following information about you: Temperature Pulse Blood pressure Weight 97.5 degrees 75/minute 124/66 45.4 kg Constance Klein PA-C 05/26/2025 11:25 AM Signed Chief Complaint Patient presents with: Follow Up: headache HPI Laurence Koroma is a 74 year old female who presents here today for Above Complaints.. Headache and Eye Pain: - Onset: Began around April 26. - Location: Initially behind the eye, now a dull ache in the temporal area. - Duration: Persistent for about a month. - Severity: Initially more painful, now subsided to a dull ache. - Associated Symptoms: Sensitivity and tenderness in the head, no visible rash or redness. - Aggravating Factors: Physical activity and rushing around. - Alleviating Factors: Antibiotic treatment. - Denies known trauma or injury. - Recent CT scan showed no significant issues in the arteries around the head. - Lexie has a history of poor posture and neck issues, previously treated with physical therapy. - Scheduled dental appointment to check for potential bite issues contributing to the pain. 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 Dysplasia: - Recent scan on May 22 showed no blood clot. 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 - Lexie is under the care of Dr. Wells, a vascular specialist, and is scheduled for annual scans. Past medical history, appointments, medications, allergies reviewed. [...] tablet by mouth two times a day. psyllium husk (METAMUCIL ORAL) Take by mouth [...] Take 1 capsule by mouth once daily. multivit,iron,minerals/l utein (CENTRUM SILVER ULTRA WOMEN'S ORAL) Take by mouth. Take one tablet daily L.acid/L.casei/B.bif/B.l on/FOS (PROBIOTIC BLEND ORAL) Take by mouth two times a day. refrigerated acyclovir (ZOVI (more content not included)... Normal [facility] CTA Head AND Neck W/ Contras ton 05-22-2025 CTA Head AND Neck W/ Contrast [facility] Imaging Services [address] [place], [place] [address] CTA Head AND Neck W/ Contrast MR#: [id number] Acct: [id number] Name: LAURENCE KOROMA Rep #: [id number] : 1950 F 74 From: Aldo Willett MD PCP: Dr. Fabian Mcmullen MD Status: REG CLI Study: CTA Head AND Neck W/ Contrast Date of Exam: Exam# [id number] Ordering Dr: Deb Cheung PROCEDURE: CTA HEAD AND NECK W/ CONTRAST 05/22/2025 CT head without contrast REASON FOR EXAM: FMD, NEW NECK/HEAD PAIN TECHNIQUE: CTA HEAD AND NECK W/ CONTRAST Multiplanar Sagittal and Coronal images were obtained. Multi planer sagittal axial and coronal CT head without contrast CONTRAST: Isovue 370 VOLUME: 100 mL One or more dose reduction techniques were used (e.g., Automated exposure control, adjustment of the mA and/or kV according to patient size, use of iterative reconstruction technique). RADIATION DOSE SUMMARY: CTDlvol: 11.43 mGy DLP: 420.0 mGycm COMPARISON: CTA head and neck March 27, 2023. FINDINGS: CT head: No acute intracranial abnormalities. No mass effect or midline shift. The craniocervical junction is unremarkable. No ventriculomegaly. The mastoid cells and paranasal sinuses are clear. CTA head and neck: Aortic Arch: Normal size and branching pattern. No significant atherosclerotic plaque. Brachiocephalic and Subclavians: Unremarkable RIGHT Carotid: Right CCA: Unremarkable. Right ICA: Beading appearance of the right internal carotid artery from the level of C2 to skull base which can be from atherosclerotic changes or fibromuscular dysplasia. No significant stenosis. Right ECA: Calcified plaque proximally. LEFT Carotid: Left CCA: Unremarkable. Left ICA: Unremarkable. Left ECA: Calcified plaque proximally. Vertebrals: Codominant. Arise from the subclavians. Both vertebrals form the basilar. RIGHT Vertebral: Unremarkable. LEFT Vertebral: Unremarkable. Anatomy: Ramona of [place] anatomy is normal. Aneurysm or avm: No intracranial aneurysms or large vascular malformations are identified. Anterior cerebral arteries: Unremarkable: Middle cerebral arteries: Unremarkable. Basilar artery: Unremarkable. Posterior cerebral arteries: Atherosclerotic calcifications of the left posterior cerebral artery causing moderate stenosis. origin of the right posterior cerebral artery with no significant stenosis. Other major branches of the posterior circulation: Unremarkable. Major venous structures: Unremarkable. Other findings: Neck: No lymphadenopathy. Lungs: Lung apices are clear. Bones: Bones are unremarkable. CT/CTA Head AND Neck W/ Contrast IMPRESSION: No acute intracranial abnormalities. Beading appearance of the right internal carotid artery from the level of C2 to skull base which can be from atherosclerotic changes or fibromuscular dysplasia without hemodynamically significant stenosis. Atherosclerotic calcifications of the left posterior cerebral artery causing moderate stenosis. Otherwise, no hemodynamically significant stenosis in the head and neck. Reading Location: [facility] CC: ELVIS Raza; Dr. Fabian Mcmullen MD Mud Temperer: Signed Normal [facility] MR/BMS.BVSon 05-20-2025 MR/BMS.BVS [facility] [address] [place] [address] OFFICE VISIT Date of Service: 05/20/25 MR#: [id number] Acct: [id number] Name: LAURENCE KOROMA Rep #: [id number] : 1950 Provider: ELVIS Raza Age/Sex: 74/F Location: [facility] Status: Signed Intake Vital Signs 01/26/25 [...] eye surgery, (more content not included)... Normal [facility] Duplex ultrasound of renal a rtery reportOrdered By: Alexei Wells on 05-18-2025 Study report [facility] Cardi[facility] [address] [place] [address] Renal Artery Duplex Ultrasound 05/15/25 0856 MR#: [id number] Acct: [id number] Name: LAURENCE KOROMA Rep #:[id number] : 1950 74 From: Alexei Chase Attending Dr: ELVIS Raza Stat us: REG CLI Ordering Dr: Deb Cheung Date: Location: [facility] Sex: F C Admitted: Reason [...] 1.79 cm . Proximal abdominal aorta peak systolicvelocity is 75.4 cm/sec . Distal abdominal aorta [...] Fabian Mcmullen Performed By: Amirah Knight RVT 05/18/25951 Date _ Alexei Wells MD CC: ELVIS Raza; Dr. Fabian Mcmullen MD ~ Date Dictated: 05/15/25855 Date Transcribed: 05/18/25951 Mud Temperer: Signed [facility] Work Phone: Renal Artery Duplex Ultrasou ndon 05-15-2025 Renal Artery Duplex Ultrasound [facility] [place] [address] Renal Artery Duplex Ultrasound 05/15/25855 MR#: [id number] Acct: [id number] Name: LAURENCE KOROMA Rep #: [id number] : 1950 74 From: Alexei Wells MD Attending Dr: ELVIS Raza Status: REG CLI Ordering Dr: Deb Cheung Date: 05/15/25 Location: [facility] Sex: F C Admitted: Reason [...] size Ordering Physician: Deb Cheung Referring Physician: Fabina Mcmullen Performed By: Amirah Knight, [facility] 05/18/25951 Date Alexei Wells MD CC: ELVIS Raza; Dr. Fabian Mcmullen MD Date Dictated: 05/15/25855 Date Transcribed: 05/18/25951 Mud Temperer: Signed [facility] 05-13-2025 [facility] Telephone (FAMPWS) -------- LAURENCE KOROMA ([id number]) 1950 F Date Time Provider Department 05/13/25 FABIAN MCMULLEN During your visit today, we recorded the following information about you: Geri Gore LPN 05/13/2025 8:58 AM Signed Patient calling asking if she could have some sort of scan done to make sure it is sinus issues and not a tumor. She said her jew pain is not any better at all, [...] Fully Assessed Reason for Visit: Patient Question [5287] Prescriptions as of 05/13/2025 - Potassium Chloride [...] Status:Closed by ELMIRA AMOS on 05/13/25 Normal [facility] CBC W Auto Differential pane l (Bld)on 05-11-2025 Basophils (Bld) [#/Vol] 0.05 10*3/uL [facility] Basophils/100 WBC (Bld) 0.6 % C [facility] Differential cell count method Nom (Bld) Auto [facility] Eosinophils (Bld) [#/Vol] 0.17 10*3/uL [facility] Eosinophils/100 WBC (Bld) 2.1 % [facility] Erythrocyte distribution width (RBC) [Ratio] 14.6 % 11.5 - 15.0 % [facility] Hematocrit (Bld) [Volume fraction] 33.7 % Low 36.0 - 46.0 % [facility] Hemoglobin (Bld) [Mass/Vol] 10.8 g/dL Low 11.5 - 15.5 g/dL [facility] Immature granulocytes (Bld) [#/Vol] NINF [facility] Immature granulocytes/100 WBC (Bld) 0.2 % [facility] Interpretation and review of laboratory results Abnormal [facility] Lymphocytes (Bld) [#/Vol] 2.66 10*3/uL [facility] Lymphocytes/100 WBC (Bld) 32.2 % [facility] MCH (RBC) [Entitic mass] 29.4 pg 26. 0 - 34.0 pg [facility] MCHC (RBC) [Mass/Vol] 32 g/dL 30.5 - 36.0 g/dL [facility] MCV (RBC) [Entitic vol] 91.8 fL 80.0 - 100.0 fL [facility] Monocytes (Bld) [#/Vol] 0.73 10*3/uL [facility] Monocytes/100 WBC (Bld) 8.8 % [facility] Neutrophils (Bld) [#/Vol] 4.64 10*3/uL [facility] Neutrophils/100 WBC (Bld) 56.1 % [facility] Nucleated RBC (Bld) [#/Vol] [facility] MARYVALEF [facility] Nucleated RBC/100 WBC (Bld) [Ratio] 0 % /100 WBC [facility] Platelet mean volume (Bld) [Entitic vol] 10.5 fL 9.0 - 12.7 fL [facility] Platelets (Bld) [#/Vol] 268 10*3/uL [facility] RBC (Bld) [#/Vol] 3.67 10*6/uL Low 3.90 - 5.20 m/uL [facility] WBC (Bld) [#/Vol] 8.27 10*3/uL [facility] Basophils (Bld) [#/Vol] 0.05 10*3/uL Normal <0.11 [facility] Comment on above: Order Comment: Speci men Type: BLOOD SPECIMENOrdering Facility: [facility] Address: [address] [place] [address] Performed By: #### 5 7021-8, 4537-7 ####[facility] LABCLIA [id number] [address] [place] Basophils/100 WBC (Bld) 0.6 % Normal [facility] Comment on above: Order Comment: Speci men Type: BLOOD SPECIMENOrdering Facility: [facility] Address: [address] [place] [address] Performed By: #### 5 7021-8, 7 ####[facility] LABCLIA [id number] [place] [address] [place] Differential cell count method Nom (Bld) Auto Normal [facility] Comment on above: Order Comment: Speci men Type: BLOOD SPECIMENOrdering Facility: [facility] Address: [address] [place] [address] Performed By: #### 5 7021-8, 4537-04 ####[facility] LABCLIA [id number] [place] [address] [place] Eosinophils (Bld) [#/Vol] 0.17 10*3/uL Normal <0.46 [facility] Comment on above: Order Comment: Speci men Type: BLOOD SPECIMENOrdering Facility: [facility] Address: [address] [place] [address] Performed By: #### 5 7021-8, 4537-04 ####[facility] LABCLIA [id number] [address] [place] Eosinophils/100 WBC (Bld) 2.1 % Normal [facility] Comment on above: Order Comment: Speci men Type: BLOOD SPECIMENOrdering Facility: [facility] Address: [address] [place] [address] Performed By: #### 5 7021-8, 4537-04 ####[facility] LABCLIA [id number] [address] [place] Erythrocyte distribution width (RBC) [Ratio] 14.6 % Normal 11.5-15.0 [facility] Comment on above: Order Comment: Speci men Type: BLOOD SPECIMENOrdering Facility: [facility] Address: [address] [place] [address] Performed By: #### 5 7021-8, 4536-7 ####[facility] LABIA [id number] [place] [address] [place] Hematocrit (Bld) [Volume fraction] 33.7 % Low 36.0-46.0 [facility] Comment on above: Order Comment: Speci men Type: BLOOD SPECIMENOrdering Facility: [facility] Address: [address] [place] [address] Performed By: #### 5 7021-8, 4536-7 ####[facility] LABIA [id number] [place] [address] [place] Hemoglobin (Bld) [Mass/Vol] 10.8 g/dL Low 11.5-15.5 [facility] Comment on above: Order Comment: Speci men Type: BLOOD SPECIMENOrdering Facility: [facility] Address: [address] [place] [address] Performed By: #### 5 7021-8, 7 ####[facility] LABIA [id number] [place] [address] [place] Immature granulocytes (Bld) [#/Vol] 10*3/uL Normal <0.10 [facility] Comment on above: Order Comment: Speci men Type: BLOOD SPECIMENOrdering Facility: [facility] Address: [address] [place] [address] Performed By: #### 5 7021-8, 7 ####[facility] LABIA [id number] [place] [address] [place] Immature granulocytes/100 WBC (Bld) 0.2 % Normal [facility] Comment on above: Order Comment: Speci men Type: BLOOD SPECIMENOrdering Facility: [facility] Address: [address] [place] [address] Performed By: #### 5 7021-8, 7 ####[facility] LABCLIA [id number] [address] [place] [address] [place] Lymphocytes (Bld) [#/Vol] 2.66 10*3/uL Normal 1.00-4.0 0 [facility] Comment on above: Order Comment: Speci men Type: BLOOD SPECIMENOrdering Facility: [facility] Address: [address] [place] [address] Performed By: #### 5 7021-8, 7 ####[facility] LABCLIA [id number] [address], [place] [address] [place] Lymphocytes/100 WBC (Bld) 32.2 % Normal [facility] Comment on above: Order Comment: Speci men Type: BLOOD SPECIMENOrdering Facility: [facility] Address: [address] [place] [address] Performed By: #### 5 7021-8, 4536-7 ####[facility] LABCLIA [id number] [address], [place] [address] [place] MCH (RBC) [Entitic mass] 29.4 pg Normal 26.0-34.0 [facility] Comment on above: Order Comment: Speci men Type: BLOOD SPECIMENOrdering Facility: [facility] Address: [address] [place] [address] Performed By: #### 5 7021-8, 7 ####[facility] LABCLIA [id number] [address] [address] [place] MCHC (RBC) [Mass/Vol] 32.0 g/dL Normal 30.5-36.0 [facility] Comment on above: Order Comment: Speci men Type: BLOOD SPECIMENOrdering Facility: [facility] Address: [address] [place] [address] Performed By: #### 5 7021-8, 4537-7 ####[facility] LABCLIA [id number] [place] [address] [place] MCV (RBC) [Entitic vol] 91.8 fL Normal 80.0-100.0 C [facility] Comment on above: Order Comment: Speci men Type: BLOOD SPECIMENOrdering Facility: [facility] Address: [address] [place] [address] Performed By: #### 5 7021-8, 4537-7 ####[facility] LABCLIA [id number] [place] [address] [place] Monocytes (Bld) [#/Vol] 0.73 10*3/uL Normal <0.87 [facility] Comment on above: Order Comment: Speci men Type: BLOOD SPECIMENOrdering Facility: [facility] Address: [address] [place] [address] Performed By: #### 5 7021-8, 7-7 ####[facility] LABCLIA [id number] [place] [address] [place] Monocytes/100 WBC (Bld) 8.8 % Normal [facility] Comment on above: Order Comment: Speci men Type: BLOOD SPECIMENOrdering Facility: [facility] Address: [address] [place] [address] Performed By: #### 5 7021-8, 4536-7 ####[facility] LABCLIA [id number] [place] [address] [place] Neutrophils (Bld) [#/Vol] 4.64 10*3/uL Normal 1.45-7.5 0 [facility] Comment on above: Order Comment: Speci men Type: BLOOD SPECIMENOrdering Facility: [facility] Address: [address] [place] [address] Performed By: #### 5 7021-8, 4537-7 ####[facility] LABCLIA [id number] [place] [address] [place] Neutrophils/100 WBC (Bld) 56.1 % Normal [facility] Comment on above: Order Comment: Speci men Type: BLOOD SPECIMENOrdering Facility: [facility] Address: [address] [place] [address] Performed By: #### 5 7021-8, 4536-7 ####[facility] LABIA [id number] [place] [address] [place] Nucleated RBC (Bld) [#/Vol] 10*3/uL Normal <0.01 [facility] Comment on above: Order Comment: Speci men Type: BLOOD SPECIMENOrdering Facility: [facility] Address: [address] [place] [address] Performed By: #### 5 7021-8, 453-7 ####[facility] LABIA [id number] [place] [address] [place] Nucleated RBC/100 WBC (Bld) [Ratio] 0.0 /100 WBC Normal [facility] Comment on above: Order Comment: Speci men Type: BLOOD SPECIMENOrdering Facility: [facility] Address: [address] [place] [address] Performed By: #### 5 7021-8, 4536-7 ####[facility] LABIA [id number] [place] [address] [place] Platelet mean volume (Bld) [Entitic vol] 10.5 fL Normal 9.0-12.7 [facility] Comment on above: Order Comment: Speci men Type: BLOOD SPECIMENOrdering Facility: [facility] Address: [address] [place] [address] Performed By: #### 5 7021-8, 4536-7 ####[facility] LABIA [id number] [place] [address] [place] Platelets (Bld) [#/Vol] 268 10*3/uL Normal 150-400 [facility] Comment on above: Order Comment: Speci men Type: BLOOD SPECIMENOrdering Facility: [facility] Address: [address] [place] [address] Performed By: #### 5 7021-8, 4537-7 ####[facility] LABCLIA [id number] [place] [address] [place] RBC (Bld) [#/Vol] 3.67 10*6/uL Low 3.90-5.20 [facility] Comment on above: Order Comment: Speci men Type: BLOOD SPECIMENOrdering Facility: [facility] Address: [address] [place] [address] Performed By: #### 5 7021-8, 4537-7 ####[facility] LABIA [id number] [place] [address] [place] WBC (Bld) [#/Vol] 8.27 10*3/uL Normal 3.70-11.00 [facility] Comment on above: Order Comment: Speci men Type: BLOOD SPECIMENOrdering Facility: [facility] Address: [address] [place] [address] Performed By: #### 5 7021-8, 4537-7 ####[facility] LABIA [id number] [place] [address] [place] CNOVon 05-11-2025 CNOV Office Visit (FAMPWS ) -------- LAURENCE KOROMA ([id number]) 1950 F Date Time Provider Department 05/11/25 1:40 PM FABIAN MCMULLEN During your visit today, we recorded the following information about you: Pulse Respiration Blood pressure Weight 84/minute 16/minute 126/60 44.5 kg Fabian Mcmullen MD 05/11/2025 11:26 PM Signed Chief Complaint Patient presents with: Pain: Right jew HPI Laurence Koroma is a 74 year old female who presents here today for an acute visit. Right jaw, jew pain, and behind right eye for 7-10 [...] tablet by (more content not included)... Normal [facility] CRP SerPl-mCncon 05-11-2025 CRP [Mass/Vol] mg/L Normal <0.9 [facility] Comment on above: Order Comment: Speci men Type: BLOOD SPECIMENOrdering Facility: [facility] Address: [address] [place] [address] Performed By: #### 1 988-5 ####[facility] LABCLIA [id number] [place] [address] [place] ESR Westergren method (Bld) [Velocity]on 05-11-2025 ESR (Bld) [Velocity] 26 mm/h High [facility] Interpretation and review of laboratory results Abnormal [facility] ESR (Bld) [Velocity] 26 mm/h High 0-20 [facility] Comment on above: Order Comment: Speci men Type: BLOOD SPECIMENOrdering Facility: [facility] Address: [address] [place] [address] Performed By: #### 5 7021-8, 4537-7 ####[facility] LABCLIA [id number] [place] [address] [place] Duplex ultrasound of carotid artery reportOrdered By: Alexei Wells on 04-27-2025 Study report [facility] [address] [place] [address] Carotid Duplex Ultrasound 04/24/25 1116 MR#: [id number] Acct: [id number] Name: LAURENCE KOROMA Kendal Rep #:[id number] : 1950 74 From: Alexei Chase Attending Dr: ELVIS Raza Stat us: REG CLI Ordering Dr: Deb Cheung Date: Location: [facility] Sex: F C Admitted: Reason [...] the left vertebral artery. Procedure Carotid Duplex 85433. This is a Carotid Duplex examination using B-mode, color flow and specral Doppler. Exam performed in department. VL/Carotid Duplex Ultrasound Interpretation Summary Mild (<50%) stenosis right extracranial internal carotid. Normal left extracranial internal carotid. Patent and antegrade vertebrals bilaterally. Ordering Physician: Deb Cheung Referring Physician: Fabian Mcmullen Performed By: Amirah Knight RVT 04/27/25 1230 Date _ Alexie Wells MD CC: ELVIS Raza; Dr. Fabian Mcmullen MD ~ Date Dictated: 04/24/25 1116 Date Transcribed: 04/27/25 1231 Mud Temperer: Signed [facility] Work Phone: Carotid Duplex Ultrasoundon 04-24-2025 Carotid Duplex Ultrasound [facility] Cardiovascular Services [address] [place] [address] Carotid Duplex Ultrasound 04/24/251115 MR#: [id number] Acct: [id number] Name: LAURENCE KOROMA Rep #: [id number] : 1950 74 From: Alexei Wells MD Attending Dr: ELVSI Raza Status: REG CLI Ordering Dr: Deb [...] the left vertebral artery. Procedure Carotid Duplex 89617. This is a Carotid Duplex examination using B-mode, color flow and specral Doppler. Exam performed in department. VL/Carotid Duplex Ultrasound Interpretation Summary Mild (<50%) stenosis right extracranial internal carotid. Normal left extracranial internal carotid. Patent and antegrade vertebrals bilaterally. Ordering Physician: Deb Cheung Referring Physician: Fabian Mcmullen Performed By: Amirah Knight, Haylee 04/27/25 1230 Date Alexei Wells MD CC: ELVIS Raza; Dr. Fabian Mcmullen MD Date Dictated: 04/24/25 1116 Date Transcribed: 04/27/25 1231 Mud Temperer: Signed Normal [facility] MR/BMS.Lynette 04-15-2025 MR/BMS.ERIKA [facility] [address] [place] [address] OFFICE VISIT Date of Service: 04/15/25 MR#: [id number] Acct: [id number] Name: LAURENCE KOROMA Rep #: [id number] : 1950 Provider: Dr. Alexei Wells MD Age/Sex: 74/F Location[facility] Status: Signed Intake Vital Signs 01/26/25 07:14 [...] mg tablet 70 mg PO QWEEK bones 04/18/2312/09 History lisinopril 40 mg tablet 40 mg PO DAILY blood pressure 03/0604/15/25 History loratadine 10 mg tablet (Claritin) 10 [...] as documented (more content not included)... Normal [facility] CNOVon 03-17-2025 CNOV Office Visit (FAMPWS ) -------- LAURENCE KOROMA ([id number]) 1950 F Date Time Provider Department 03/17/25 12:00 PM [facility] During your visit today, we recorded the following information about you: Temperature Pulse Respiration Blood pressure 97.1 degrees 73/minute 16/minute 122/62 Weight 43.5 kg Constance Klein PA-C 03/17/2025 1:55 PM Signed Chief Complaint Patient presents with: Recheck: GI issues HPI Laurence J Koroma is a 74 year old female [...] Size: Re (more content not included)... Normal [facility] Urinalysis complete panel (U )on 03-17-2025 Bacteria LM.HPF (Urine sed) [#/Area] Negative Normal Negative [facility] Comment on above: Order Comment: Speci men Type: URINE SPECIMENOrdering Facility: [facility] Address: [address] [place] [address] Performed By: #### 2 4356-8 ####[facility] LABCLIA [id number] [place] [address] [place] Bilirubin Ql (U) Negative Normal Negative [facility] Comment on above: Order Comment: Speci men Type: URINE SPECIMENOrdering Facility: [facility] Address: [address] [place] [address] Performed By: #### 2 4356-8 ####[facility] LABCLIA [id number] [place] [address] [place] Clarity (Unsp spec) Clear Normal Clear [facility] Comment on above: Order Comment: Speci men Type: URINE SPECIMENOrdering Facility: [facility] Address: [address] [place] [address] Performed By: #### 2 4356-8 ####[facility] LABCLIA [id number] [place] [address] [place] Color (U) Yellow Normal Yellow [facility] Comment on above: Order Comment: Speci men Type: URINE SPECIMENOrdering Facility: [facility] Address: [address] [place] [address] Performed By: #### 2 4356-8 ####[facility] LABCLIA [id number] [place] [address] [place] Epithelial cells LM.HPF (Urine sed) [#/Area] None Seen Normal [facility] Comment on above: Order Comment: Speci men Type: URINE SPECIMENOrdering Facility: [facility] Address: [address] [place] [address] Performed By: #### 2 4356-8 ####[facility] LABCLIA [id number] [place] [address] [place] Glucose Test strip (U) [Mass/Vol] Negative Normal Negative [facility] Comment on above: Order Comment: Speci men Type: URINE SPECIMENOrdering Facility: [facility] Address: [address] [place] [address] Performed By: #### 2 4356-8 ####[facility] LABCLIA [id number] [place] [address] [place] Hemoglobin Ql (U) Negative Normal Negative [facility] Comment on above: Order Comment: Speci men Type: URINE SPECIMENOrdering Facility: [facility] Address: [address] [place] [address] Performed By: #### 2 4356-8 ####[facility] LABCLIA [id number] [place] [address] [place] Hyaline casts (Urine sed) [#/Area] 0 /[LPF] Normal 0 /LPF [facility] Comment on above: Order Comment: Speci men Type: URINE SPECIMENOrdering Facility: [facility] Address: [address] [place] [address] Performed By: #### 2 4356-8 ####[facility] LABCLIA [id number] [facility] [address] [place] [address] [place] Ketones Ql (U) Negative Normal Negative [facility] Comment on above: Order Comment: Speci men Type: URINE SPECIMENOrdering Facility: [facility] Address: [address] [place] [address] Performed By: #### 2 4356-8 ####[facility] LABCLIA [id number] [facility] [address], [place] [address] [place] Leukocyte esterase Test strip Ql (U) Negative Normal Negative [facility] Comment on above: Order Comment: Speci men Type: URINE SPECIMENOrdering Facility: [facility] Address: [address] [place] [address] Performed By: #### 2 4356-8 ####[facility] LABCLIA [id number] [facility] [address], [facility]95 [place] Nitrite Ql (U) Negative Normal Negative [facility] Comment on above: Order Comment: Speci men Type: URINE SPECIMENOrdering Facility: [facility] Address: [address] [place] [address] Performed By: #### 2 4356-8 ####[facility] LABCLIA [id number] [facility] [address], [facility] [place] pH (U) 6.0 [pH] Normal <8.5 [facility] Comment on above: Order Comment: Speci men Type: URINE SPECIMENOrdering Facility: [facility] Address: [address] [place] [address] Performed By: #### 2 4356-8 ####[facility] LABCLIA [id number] [place] [address] [place] Protein (U) [Mass/Vol] Negative Normal Negative [facility] Comment on above: Order Comment: Speci men Type: URINE SPECIMENOrdering Facility: [facility] Address: [address] [place] [address] Performed By: #### 2 4356-8 ####[facility] LABIA [id number] [place] [address] [place] RBC LM.HPF (Urine sed) [#/Area] 0-2 /HPF Normal 0-2 /HPF [facility] Comment on above: Order Comment: Speci men Type: URINE SPECIMENOrdering Facility: [facility] Address: [address] [place] [address] Performed By: #### 2 4356-8 ####[facility] LABIA [id number] [address] [place] Specific gravity (U) [Rel density] 1.016 Normal 1.005-1.03 0 [facility] Comment on above: Order Comment: Speci men Type: URINE SPECIMENOrdering Facility: [facility] Address: [address] [place] [address] Performed By: #### 2 4356-8 ####[facility] LABIA [id number] [address] [place] Urobilinogen Ql (U) 0.2 EU/dL Normal 0.2-1.0 EU/dL [facility] Comment on above: Order Comment: Speci men Type: URINE SPECIMENOrdering Facility: [facility] Address: [address] [place] [address] Performed By: #### 2 4356-8 ####[facility] LABIA [id number] [place] [address] [place] WBC LM.HPF (Urine sed) [#/Area] 0-5 /HPF Normal 0-5 /HPF [facility] Comment on above: Order Comment: Speci men Type: URINE SPECIMENOrdering Facility: [facility] Address: [address] [place] [address] Performed By: #### 2 4356-8 ####[facility] LABCLIA [id number] [place] [address] [place] CBC W Auto Differential pane l (Bld)on 03-06-2025 Basophils (Bld) [#/Vol] 0.04 10*3/uL Normal <0.11 [facility] Comment on above: Order Comment: Speci men Type: BLOOD SPECIMENOrdering Facility: [facility] Address: [address] [place] [address] Performed By: #### 5 7021-8 ####[facility] LABCLIA [id number] [place] [address] [place] Basophils/100 WBC (Bld) 0.7 % Normal C [facility] Comment on above: Order Comment: Speci men Type: BLOOD SPECIMENOrdering Facility: [facility] Address: [address] [place] [address] Performed By: #### 5 7021-8 ####[facility] LABCLIA [id number] [place] [address] [place] Differential cell count method Nom (Bld) Auto Normal [facility] Comment on above: Order Comment: Speci men Type: BLOOD SPECIMENOrdering Facility: [facility] Address: [address] [place] [address] Performed By: #### 5 7021-8 ####[facility] LABCLIA [id number] [place] [address] [place] Eosinophils (Bld) [#/Vol] 0.10 10*3/uL Normal <0.46 [facility] Comment on above: Order Comment: Speci men Type: BLOOD SPECIMENOrdering Facility: [facility] Address: [address] [place] [address] Performed By: #### 5 7021-8 ####[facility] LABCLIA [id number] [address], [facility]95 [place] Eosinophils/100 WBC (Bld) 1.7 % Normal [facility] Comment on above: Order Comment: Speci men Type: BLOOD SPECIMENOrdering Facility: [facility] Address: [address] [place] [address] Performed By: #### 5 7021-8 ####[facility] LABCLIA [id number] [address], [place] [address] [place] Erythrocyte distribution width (RBC) [Ratio] 14.3 % Normal 11.5-15.0 [facility] Comment on above: Order Comment: Speci men Type: BLOOD SPECIMENOrdering Facility: [facility] Address: [address] [place] [address] Performed By: #### 5 7021-8 ####[facility] LABIA [id number] [place] [address] [place] Hematocrit (Bld) [Volume fraction] 36.7 % Normal 36.0-46.0 [facility] Comment on above: Order Comment: Speci men Type: BLOOD SPECIMENOrdering Facility: [facility] Address: [address] [place] [address] Performed By: #### 5 7021-8 ####[facility] LABCLIA [id number] [place] [address] [place] Hemoglobin (Bld) [Mass/Vol] 11.6 g/dL Normal 11.5-15.5 [facility] Comment on above: Order Comment: Speci men Type: BLOOD SPECIMENOrdering Facility: [facility] Address: [address] [place] [address] Performed By: #### 5 7021-8 ####[facility] LABCLIA [id number] [address], [facility]95 [place] Immature granulocytes (Bld) [#/Vol] 10*3/uL Normal <0.10 [facility] Comment on above: Order Comment: Speci men Type: BLOOD SPECIMENOrdering Facility: [facility] Address: [address] [place] [address] Performed By: #### 5 7021-8 ####[facility] LABCLIA [id number] [address] [address] [place] Immature granulocytes/100 WBC (Bld) 0.2 % Normal [facility] Comment on above: Order Comment: Speci men Type: BLOOD SPECIMENOrdering Facility: [facility] Address: [address] [place] [address] Performed By: #### 5 7021-8 ####[facility] LABCLIA [id number] [address], [place] [address] [place] Lymphocytes (Bld) [#/Vol] 2.99 10*3/uL Normal 1.00-4.0 0 [facility] Comment on above: Order Comment: Speci men Type: BLOOD SPECIMENOrdering Facility: [facility] Address: [address] [place] [address] Performed By: #### 5 7021-8 ####[facility] LABCLIA [id number] [place] [address] [place] Lymphocytes/100 WBC (Bld) 51.6 % Normal [facility] Comment on above: Order Comment: Speci men Type: BLOOD SPECIMENOrdering Facility: [facility] Address: [address] [place] [address] Performed By: #### 5 7021-8 ####[facility] LABCLIA [id number] [address] [address] [place] MCH (RBC) [Entitic mass] 28.6 pg Normal 26.0-34.0 [facility] Comment on above: Order Comment: Speci men Type: BLOOD SPECIMENOrdering Facility: [facility] Address: [address] [place] [address] Performed By: #### 5 7021-8 ####[facility] LABCLIA [id number] [place] [address] [place] MCHC (RBC) [Mass/Vol] 31.6 g/dL Normal 30.5-36.0 [facility] Comment on above: Order Comment: Speci men Type: BLOOD SPECIMENOrdering Facility: [facility] Address: [address] [place] [address] Performed By: #### 5 7021-8 ####[facility] LABCLIA [id number] [place] [address] [place] MCV (RBC) [Entitic vol] 90.4 fL Normal 80.0-100.0 C [facility] Comment on above: Order Comment: Speci men Type: BLOOD SPECIMENOrdering Facility: [facility] Address: [address] [place] [address] Performed By: #### 5 7021-8 ####[facility] LABIA [id number] [place] [address] [place] Monocytes (Bld) [#/Vol] 0.56 10*3/uL Normal <0.87 [facility] Comment on above: Order Comment: Speci men Type: BLOOD SPECIMENOrdering Facility: [facility] Address: [address] [place] [address] Performed By: #### 5 7021-8 ####[facility] LABCLIA [id number] [place] [address] [place] Monocytes/100 WBC (Bld) 9.7 % Normal C [facility] Comment on above: Order Comment: Speci men Type: BLOOD SPECIMENOrdering Facility: [facility] Address: [address] [place] [address] Performed By: #### 5 7021-8 ####[facility] LABIA [id number] [place] [address] [place] Neutrophils (Bld) [#/Vol] 2.10 10*3/uL Normal 1.45-7.5 0 [facility] Comment on above: Order Comment: Speci men Type: BLOOD SPECIMENOrdering Facility: [facility] Address: [address] [place] [address] Performed By: #### 5 7021-8 ####[facility] LABCLIA [id number] [facility] [place] [address] [place] Neutrophils/100 WBC (Bld) 36.1 % Normal [facility] Comment on above: Order Comment: Speci men Type: BLOOD SPECIMENOrdering Facility: [facility] Address: [address] [place] [address] Performed By: #### 5 7021-8 ####[facility] LABCLIA [id number] [place] [address] [place] Nucleated RBC (Bld) [#/Vol] 10*3/uL Normal <0.01 [facility] Comment on above: Order Comment: Speci men Type: BLOOD SPECIMENOrdering Facility: [facility] Address: [address] [place] [address] Performed By: #### 5 7021-8 ####[facility] LABCLIA [id number] [place] [address] [place] Nucleated RBC/100 WBC (Bld) [Ratio] 0.0 /100 WBC Normal [facility] Comment on above: Order Comment: Speci men Type: BLOOD SPECIMENOrdering Facility: [facility] Address: [address] [place] [address] Performed By: #### 5 7021-8 ####[facility] LABCLIA [id number] [place] [address] [place] Platelet mean volume (Bld) [Entitic vol] 11.7 fL Normal 9.0-12.7 [facility] Comment on above: Order Comment: Speci men Type: BLOOD SPECIMENOrdering Facility: [facility] Address: [address] [place] [address] Performed By: #### 5 7021-8 ####[facility] LABCLIA [id number] [place] [address] [place] Platelets (Bld) [#/Vol] 246 10*3/uL Normal 150-400 [facility] Comment on above: Order Comment: Speci men Type: BLOOD SPECIMENOrdering Facility: [facility] Address: [address] [place] [address] Performed By: #### 5 7021-8 ####[facility] LABCLIA [id number] [place] [address] [place] RBC (Bld) [#/Vol] 4.06 10*6/uL Normal 3.90-5.20 [facility] Comment on above: Order Comment: Speci men Type: BLOOD SPECIMENOrdering Facility: [facility] Address: [address] [place] [address] Performed By: #### 5 7021-8 ####[facility] LABIA [id number] [place] [address] [place] WBC (Bld) [#/Vol] 5.80 10*3/uL Normal 3.70-11.00 [facility] Comment on above: Order Comment: Speci men Type: BLOOD SPECIMENOrdering Facility: [facility] Address: [address] [place] [address] Performed By: #### 5 7021-8 ####[facility] LABIA [id number] [place] [address] [place] Gastroenterology Visit Repor ton 03-04-2025 Gastroenterology Visit Report [facility] [address] [place] [address] OFFICE VISIT Date of Service: 03/04/25 MR#: [id number] Acct: [id number] Name: LAURENCE KOROMA Rep #: [id number] : 1950 Provider: Aleksandar Quigley DO Age/Sex: 74/F [facility] [facility] Status: Signed Intake Vital Signs 01/26/25 [...] you fallen in the past year?: No [facility] Medical History (Updated 02/20/25 @ 16:[address] Huertas Friend, ) Diverticulitis EVELYN (acute kidney injury) Hypotension Near [...] up. EGD and Colonoscopy with Dr Dominguez 11.23.20 EGD LA Grade A reflux esophagitis. Biopsied. [...] diet and has been taking probiotics. OV 5 pt reports that she would like more [...] excessive flatus, (more content not included)... Normal [facility] ANCAon 02-26-2025 Atypical pANCA <1:20 Normal Neg:<1:20 [facility] Comment on above: Result Comment: The atypical pANCA pattern has been observed in a significant percentage of patients with ulcerative colitis, primary sclerosing cholangitis and autoimmune hepatitis. Performed By: #### L 3100.3425, L3300.1200, L5500.0550, L3200.1100, L3410.2400, L501.6710, L101.9900, L3300.1800, L500.4050, L100.0100 ####[facility] [address] [facility] [place], [place], [phone] Cytoplasmic Ab <1:20 Normal Neg:<1:20 [facility] Comment on above: Performed By: #### L 3100.3425, L3300.1200, L5500.0550, L3200.1100, L3410.2400, L501.6710, L101.9900, L3300.1800, L500.4050, L100.0100 ####[facility] [address] [facility]. [place], [place], [phone] Perinuclear Ab. <1:20 Normal Neg:<1:20 [facility] Comment on above: Result Comment: The presence of positive fluorescence exhibiting P-ANCA or C-ANCA patterns alone is not specific for the diagnosis of Lata's Granulomatosis (WG) or microscopic polyangiitis. Decisions about treatment should not be based solely on ANCA IFA results. The International ANCA Group Consensus recommends follow up testing of positive sera with both DE- 3 and MPO-ANCA enzyme immunoassays. As many as 5% serum samples are positive only by EIA. Ref. AM J Clin Pathol 1999;111:507-513. Performed By: #### L 3100.3425, L3300.1200, L5500.0550, L3200.1100, L3410.2400, L501.6710, L101.9900, L3300.1800, L500.4050, L100.0100 ####[facility] [address] [place], [place], [phone] Celiac Disease Profileon ENDOMYSIAL IGA Negative Normal Negative [facility] Comment on above: Performed By: #### L 3100.3425, L3300.1200, L5500.0550, L3200.1100, L3410.2400, L501.6710, L101.9900, L3300.1800, L500.4050, L100.0100 ####[facility] [address] [place], [address] tTG IGA <2 Normal 0-3 [facility] Comment on above: Result Comment: Nega tive 0 - 3 Weak Positive 4 - 10 Positive >10 Tissue Transglutaminase (tTG) has been identified as the endomysial antigen. Studies have demonstr- ated that endomysial IgA antibodies have over 99% specificity for gluten sensitive enteropathy. Performed By: #### L 3100.3425, L3300.1200, L5500.0550, L3200.1100, L3410.2400, L501.6710, L101.9900, L3300.1800, L500.4050, L100.0100 ####[facility] [address] [place], [place], [phone] Gastrin, Serumon 02-26-2025 GASTRIN TNP Normal . [facility] Comment on above: Result Comment: No f ygzen serum received. CONTACTED YOUR FACILITY VIA EMAIL ON 02-23-2025 Siemens Overinteractive Mediaulite 2000 Immunochemiluminometric assay (ICMA) Values obtained with different assay methods or kits cannot be used interchangeably. Results cannot be interpreted as absolute evidence of the presence or absence of malignant disease. Performed By: #### L 3100.3425, L3300.1200, L5500.0550, L3200.1100, L3410.2400, L501.6710, L101.9900, L3300.1800, L500.4050, L100.0100 ####[facility] [address] [place], [place], [phone]) DAFNE + Protein Elect, Serumon 02-26-2025 Albumin [Mass/Vol] 3.6 g/dL Normal 2.9-4.4 [facility] Comment on above: Order Comment: N Performed By: #### L 3100.3425, L3300.1200, L5500.0550, L3200.1100, L3410.2400, L501.6710, L101.9900, L3300.1800, L500.4050, L100.0100 ####[facility] [address] [place], [place], [phone](915) Albumin/Globulin [Mass ratio] 1.1 {ratio} Normal 0.7-1.7 [facility] Comment on above: Order Comment: N Performed By: #### L 3100.3425, L3300.1200, L5500.0550, L3200.1100, L3410.2400, L501.6710, L101.9900, L3300.1800, L500.4050, L100.0100 ####[facility] [address] [place], [place], [phone]) YSGRT-3-IQRP 0.3 g/dL Normal 0.0-0.4 [facility] Comment on above: Order Comment: N Performed By: #### L 3100.3425, L3300.1200, L5500.0550, L3200.1100, L3410.2400, L501.6710, L101.9900, L3300.1800, L500.4050, L100.0100 ####[facility] [address] [place], [place], [phone](430) LYCLB-4-KTTR 0.8 g/dL Normal 0.4-1.0 [facility] Comment on above: Order Comment: N Performed By: #### L 3100.3425, L3300.1200, L5500.0550, L3200.1100, L3410.2400, L501.6710, L101.9900, L3300.1800, L500.4050, L100.0100 ####[facility] [address] [place], [place], [phone](979) BETA GLOBULIN 1.1 g/dL Normal 0.7-1.3 [facility] Comment on above: Order Comment: N Performed By: #### L 3100.3425, L3300.1200, L5500.0550, L3200.1100, L3410.2400, L501.6710, L101.9900, L3300.1800, L500.4050, L100.0100 ####[facility] [address] [place], [place], [phone](085) GAMMA GLOBULIN 1.2 g/dL Normal 0.4-1.8 [facility] Comment on above: Order Comment: N Performed By: #### L 3100.3425, L3300.1200, L5500.0550, L3200.1100, L3410.2400, L501.6710, L101.9900, L3300.1800, L500.4050, L100.0100 ####[facility] [address] [place], [place], [phone](244) Globulin (S) [Mass/Vol] 3.5 g/dL Normal 2.2-3.9 [facility] Comment on above: Order Comment: N Performed By: #### L 3100.3425, L3300.1200, L5500.0550, L3200.1100, L3410.2400, L501.6710, L101.9900, L3300.1800, L500.4050, L100.0100 ####[facility] [address] [place], [place], [phone](002) DAFNE RESULT,S Comment Normal . [facility] Comment on above: Order Comment: N Result Comment: No m onoclonality detected. Performed By: #### L 3100.3425, L3300.1200, L5500.0550, L3200.1100, L3410.2400, L501.6710, L101.9900, L3300.1800, L500.4050, L100.0100 ####[facility] [address] [place], [place], [phone](180) IMMUNOGLOB A QN 275 mg/dL Normal 64-422 [facility] Comment on above: Order Comment: N Performed By: #### L 3100.3425, L3300.1200, L5500.0550, L3200.1100, L3410.2400, L501.6710, L101.9900, L3300.1800, L500.4050, L100.0100 ####[facility] [address] [place], [address] IMMUNOGLOB G QN 1242 mg/dL Normal 586-1602 [facility] Comment on above: Order Comment: N Performed By: #### L 3100.3425, L3300.1200, L5500.0550, L3200.1100, L3410.2400, L501.6710, L101.9900, L3300.1800, L500.4050, L100.0100 ####[facility] [address] [place], [address] IMMUNOGLOB M QN 70 mg/dL Normal 26-217 [facility] Comment on above: Order Comment: N Performed By: #### L 3100.3425, L3300.1200, L5500.0550, L3200.1100, L3410.2400, L501.6710, L101.9900, L3300.1800, L500.4050, L100.0100 ####[facility] [address] [place], [address] M-Luis Not Observed Normal Not Observed [facility] Comment on above: Order Comment: N Performed By: #### L 3100.3425, L3300.1200, L5500.0550, L3200.1100, L3410.2400, L501.6710, L101.9900, L3300.1800, L500.4050, L100.0100 ####[facility] [address] [place], [place], [phone] NOTE: Comment Normal . [facility] Comment on above: Order Comment: N Result Comment: Prot ein electrophoresis scan will follow via computer, mail, or balance clerk delivery. Performed By: #### L 3100.3425, L3300.1200, L5500.0550, L3200.1100, L3410.2400, L501.6710, L101.9900, L3300.1800, L500.4050, L100.0100 ####[facility] [address] [place], [address] Protein [Mass/Vol] 7.1 g/dL Normal 6.0-8.5 [facility] Comment on above: Order Comment: N Performed By: #### L 3100.3425, L3300.1200, L5500.0550, L3200.1100, L3410.2400, L501.6710, L101.9900, L3300.1800, L500.4050, L100.0100 ####[facility] [address] [place], [address] Immunoglobulins G/A/M/Dwaine IMMUNOGLOB E QN 4 IU/mL Low 6-495 [facility] Comment on above: Order Comment: N Performed By: #### L 3100.3425, L3300.1200, L5500.0550, L3200.1100, L3410.2400, L501.6710, L101.9900, L3300.1800, L500.4050, L100.0100 ####[facility] [address] [place], [address] L5500.0550on 02-25-2025 BEEF <0.10 Normal Class 0 [facility] Comment on above: Performed By: #### L 3100.3425, L3300.1200, L5500.0550, L3200.1100, L3410.2400, L501.6710, L101.9900, L3300.1800, L500.4050, L100.0100 ####[facility] [address] [place], [place], [id number] CHOCOLATE <0.10 Normal Class 0 [facility] Comment on above: Performed By: #### L 3100.3425, L3300.1200, L5500.0550, L3200.1100, L3410.2400, L501.6710, L101.9900, L3300.1800, L500.4050, L100.0100 ####[facility] [address] [place], [place], [phone] CODFISH <0.10 Normal Class 0 [facility] Comment on above: Performed By: #### L 3100.3425, L3300.1200, L5500.0550, L3200.1100, L3410.2400, L501.6710, L101.9900, L3300.1800, L500.4050, L100.0100 ####[facility] [address] [place], [place], [phone] COMMENT Comment Normal . [facility] Comment on above: Result Comment: Cata liriano [...] L3200.1100, L3410.2400, L501.6710, L101.9900, L3300.1800, L500.4050, L100.0100 ####[facility] [address] [place], [place], [id number] CORN <0.10 Normal Class 0 [facility] Comment on above: Performed By: #### L 3100.3425, L3300.1200, L5500.0550, L3200.1100, L3410.2400, L501.6710, L101.9900, L3300.1800, L500.4050, L100.0100 ####[facility] [address] [place], [address] EGG, WHOLE <0.10 Normal Class 0 [facility] Comment on above: Result Comment: Perf ormed at: - [facility] [id number] Blood Bank Manager: Kerwin Ni MD, Phone: [phone] Performed By: #### L 3100.3425, L3300.1200, L5500.0550, L3200.1100, L3410.2400, L501.6710, L101.9900, L3300.1800, L500.4050, L100.0100 ####[facility] [address] [place], [place], [phone] MILK (COW) <0.10 Normal Class 0 [facility] Comment on above: Performed By: #### L 3100.3425, L3300.1200, L5500.0550, L3200.1100, L3410.2400, L501.6710, L101.9900, L3300.1800, L500.4050, L100.0100 ####[facility] [address] [place], [place], [id number] MUSSELS <0.10 Normal Class 0 [facility] Comment on above: Performed By: #### L 3100.3425, L3300.1200, L5500.0550, L3200.1100, L3410.2400, L501.6710, L101.9900, L3300.1800, L500.4050, L100.0100 ####[facility] [address] [place], [address] PEANUT <0.10 Normal Class 0 [facility] Comment on above: Performed By: #### L 3100.3425, L3300.1200, L5500.0550, L3200.1100, L3410.2400, L501.6710, L101.9900, L3300.1800, L500.4050, L100.0100 ####[facility] [address] [place], [address] PORK <0.10 Normal Class 0 [facility] Comment on above: Performed By: #### L 3100.3425, L3300.1200, L5500.0550, L3200.1100, L3410.2400, L501.6710, L101.9900, L3300.1800, L500.4050, L100.0100 ####[facility] [address] [facility] [place], [address] SALMON <0.10 Normal Class 0 [facility] Comment on above: Performed By: #### L 3100.3425, L3300.1200, L5500.0550, L3200.1100, L3410.2400, L501.6710, L101.9900, L3300.1800, L500.4050, L100.0100 ####[facility] [address] [place], [address] SHRIMP <0.10 Normal Class 0 [facility] Comment on above: Performed By: #### L 3100.3425, L3300.1200, L5500.0550, L3200.1100, L3410.2400, L501.6710, L101.9900, L3300.1800, L500.4050, L100.0100 ####[facility] [address] [place], [place], [phone] SOYBEAN <0.10 Normal Class 0 [facility] Comment on above: Performed By: #### L 3100.3425, L3300.1200, L5500.0550, L3200.1100, L3410.2400, L501.6710, L101.9900, L3300.1800, L500.4050, L100.0100 ####[facility] [address] [place], [address] TUNA <0.10 Normal Class 0 [facility] Comment on above: Performed By: #### L 3100.3425, L3300.1200, L5500.0550, L3200.1100, L3410.2400, L501.6710, L101.9900, L3300.1800, L500.4050, L100.0100 ####[facility] [address] [place], [address] WHEAT <0.10 Normal Class 0 [facility] Comment on above: Performed By: #### L 3100.3425, L3300.1200, L5500.0550, L3200.1100, L3410.2400, L501.6710, L101.9900, L3300.1800, L500.4050, L100.0100 ####[facility] [address] [place], [place], [phone] Absolute lymphocyte countOrd ered By: Aleksandar Quigley on 02-20-2025 Lymphocytes Auto (Unsp spec) [#/Vol] 2.13 10*3/uL 0.83-4.51 [facility] Absolute neutrophil countOrd ered By: Aleksandar Quigley on 02-20-2025 Neutrophils (Bld) [#/Vol] 1.9 10*3/uL Low 2.0-7.7 [facility] Albumin Elph [Mass/Vol]Order ed By: Aleksandar Quigley on 02-20-2025 Albumin [Mass/Vol] 3.6 g/dL 2.9-4.4 [facility] Anion gap in Serum or Plasma Ordered By: Aleksandarrosalee Quigley on 02-20-2025 Anion gap [Moles/Vol] 13 mmol/L 5-15 [facility] Automated lymphocyte count a s percentage of total leukocytesOrdered By: Aleksandar Friend on 02-20-2025 Lymphocytes/100 WBC Auto (Unsp spec) 46.5 % High 19-41 [facility] BUN/creatinine ratioOrdered By: Aleksandarrosalee Quigley on 02-20-2025 Urea nitrogen/Creatinine [Mass ratio] 18.0 mg/mg 10-20 [facility] Basophil percentageOrdered B y: Aleksandar Friend on 02-20-2025 Basophils/100 WBC (Bld) 1.1 % High 0-1 [facility] Bilirubin, totalOrdered By: Aleksandarrosalee Quigley on 02-20-2025 Bilirubin [Mass/Vol] 0.30 mg/dL 0.00-1.30 [facility] CBC W/Diff, Automatedon Absolute Lymph 2.13 X10 3/uL Normal 0.83-4.51 [facility] Comment on above: Performed By: #### L 3100.3425, L3300.1200, L5500.0550, L3200.1100, L3410.2400, L501.6710, L101.9900, L3300.1800, L500.4050, L100.0100 #### [facility] [address] [place], [address] (745) Absolute Neut 1.9 X10 3/uL Low 2.0-7.7 [facility] Comment on above: Performed By: #### L 3100.3425, L3300.1200, L5500.0550, L3200.1100, L3410.2400, L501.6710, L101.9900, L3300.1800, L500.4050, L100.0100 #### [facility] [address] [place], [place], [phone] (830) Basophils/100 WBC (Bld) 1.1 % High 0-1 [facility] Comment on above: Performed By: #### L 3100.3425, L3300.1200, L5500.0550, L3200.1100, L3410.2400, L501.6710, L101.9900, L3300.1800, L500.4050, L100.0100 #### [facility] [address] [place], [address] (036) Eosinophils/100 WBC (Bld) 2.6 % Normal 0-5 [facility] Comment on above: Performed By: #### L 3100.3425, L3300.1200, L5500.0550, L3200.1100, L3410.2400, L501.6710, L101.9900, L3300.1800, L500.4050, L100.0100 #### [facility] [address] [place], [address] (624) Erythrocyte distribution width (RBC) [Ratio] 14.0 % Normal 11.6-14.6 [facility] Comment on above: Performed By: #### L 3100.3425, L3300.1200, L5500.0550, L3200.1100, L3410.2400, L501.6710, L101.9900, L3300.1800, L500.4050, L100.0100 #### [facility] [address] [place], [address] (599) Hematocrit (Bld) [Volume fraction] 33.4 % Low 37-47 [facility] Comment on above: Performed By: #### L 3100.3425, L3300.1200, L5500.0550, L3200.1100, L3410.2400, L501.6710, L101.9900, L3300.1800, L500.4050, L100.0100 #### [facility] [address] [place], [address] (124) Hemoglobin (Bld) [Mass/Vol] 11.1 g/dL Low 12.0-15.0 [facility] Comment on above: Performed By: #### L 3100.3425, L3300.1200, L5500.0550, L3200.1100, L3410.2400, L501.6710, L101.9900, L3300.1800, L500.4050, L100.0100 #### [facility] [address] [place], [address] IG% 0.200 Normal 0.0-0.9 [facility] Comment on above: Result Comment: IG% - Immature Granulocytes (promyelocytes, myelocytes and metamyelocytes) > 1% indicates that a LEFT SHIFT is Present. Performed By: #### L 3100.3425, L3300.1200, L5500.0550, L3200.1100, L3410.2400, L501.6710, L101.9900, L3300.1800, L500.4050, L100.0100 #### [facility] [address] [place], [address] Lymphocytes/100 WBC (Bld) 46.5 % High 19-41 [facility] Comment on above: Performed By: #### L 3100.3425, L3300.1200, L5500.0550, L3200.1100, L3410.2400, L501.6710, L101.9900, L3300.1800, L500.4050, L100.0100 #### [facility] [address] [place], [address] MCH (RBC) [Entitic mass] 29.7 pg Normal 27.0-32.0 [facility] Comment on above: Performed By: #### L 3100.3425, L3300.1200, L5500.0550, L3200.1100, L3410.2400, L501.6710, L101.9900, L3300.1800, L500.4050, L100.0100 #### [facility] [address] [place], [address] MCHC (RBC) [Mass/Vol] 33.2 g/dL Normal 32-36 [facility] Comment on above: Performed By: #### L 3100.3425, L3300.1200, L5500.0550, L3200.1100, L3410.2400, L501.6710, L101.9900, L3300.1800, L500.4050, L100.0100 #### [facility] [address] [place], [address] MCV (RBC) [Entitic vol] 89.3 fL Normal 81-99 [facility] Comment on above: Performed By: #### L 3100.3425, L3300.1200, L5500.0550, L3200.1100, L3410.2400, L501.6710, L101.9900, L3300.1800, L500.4050, L100.0100 #### [facility] [address] [facility] [place], [address] Monocytes/100 WBC (Bld) 8.5 % Normal 0-10 [facility] Comment on above: Performed By: #### L 3100.3425, L3300.1200, L5500.0550, L3200.1100, L3410.2400, L501.6710, L101.9900, L3300.1800, L500.4050, L100.0100 #### [facility] [address] [place], [address] Neutrophils/100 WBC (Bld) 41.1 % Low 47-70 [facility] Comment on above: Performed By: #### L 3100.3425, L3300.1200, L5500.0550, L3200.1100, L3410.2400, L501.6710, L101.9900, L3300.1800, L500.4050, L100.0100 #### [facility] [address] [place], [address] Nucleated RBC (Bld) [#/Vol] 0 10*3/uL Normal 0-5 [facility] Comment on above: Performed By: #### L 3100.3425, L3300.1200, L5500.0550, L3200.1100, L3410.2400, L501.6710, L101.9900, L3300.1800, L500.4050, L100.0100 #### [facility] [address] [place], [address] Platelet mean volume (Bld) [Entitic vol] 11.6 fL Normal 6.2-12.0 [facility] Comment on above: Performed By: #### L 3100.3425, L3300.1200, L5500.0550, L3200.1100, L3410.2400, L501.6710, L101.9900, L3300.1800, L500.4050, L100.0100 #### [facility] [address] [place], [place], [phone] (563) Platelets (Bld) [#/Vol] 256 10*3/uL Normal 150-450 [facility] Comment on above: Performed By: #### L 3100.3425, L3300.1200, L5500.0550, L3200.1100, L3410.2400, L501.6710, L101.9900, L3300.1800, L500.4050, L100.0100 #### [facility] [address] [place], [place], [phone] (279) RBC (Bld) [#/Vol] 3.74 10*6/uL Low 4.2-5.4 [facility] Comment on above: Performed By: #### L 3100.3425, L3300.1200, L5500.0550, L3200.1100, L3410.2400, L501.6710, L101.9900, L3300.1800, L500.4050, L100.0100 #### [facility] [address] [place], [address] (768) RDW SD 45.9 fl High 35.1-43.9 [facility] Comment on above: Performed By: #### L 3100.3425, L3300.1200, L5500.0550, L3200.1100, L3410.2400, L501.6710, L101.9900, L3300.1800, L500.4050, L100.0100 #### [facility] [address] [place], [place], [phone] WBC (Bld) [#/Vol] 4.6 10*3/uL Normal 4.4-11.0 [facility] Comment on above: Performed By: #### L 3100.3425, L3300.1200, L5500.0550, L3200.1100, L3410.2400, L501.6710, L101.9900, L3300.1800, L500.4050, L100.0100 #### [facility] [address] [place], [place], [phone] CRPon 02-20-2025 C-REACTIVE PROT < 3.00 Normal 0.0-3.0 [facility] Comment on above: Performed By: #### L 3100.3425, L3300.1200, L5500.0550, L3200.1100, L3410.2400, L501.6710, L101.9900, L3300.1800, L500.4050, L100.0100 ####[facility] [address] [place], [place], [phone] Carbon dioxide, total [Moles /volume] in Central venous bloodOrdered By: Aleksandar Quigley on 02-20-2025 CO2 [Moles/Vol] 21.5 mmol/L 21.0-32.0 [facility] Chloride assayOrdered By: Ra elis Quigley on 02-20-2025 Chloride [Moles/Vol] 105 mmol/L 98-108 [facility] Comprehensive Metabolic Prof ilon 02-20-2025 Albumin [Mass/Vol] 4.2 g/dL Normal 3.4-4.8 [facility] Comment on above: Performed By: #### L 3100.3425, L3300.1200, L5500.0550, L3200.1100, L3410.2400, L501.6710, L101.9900, L3300.1800, L500.4050, L100.0100 #### [facility] [address] [place], [place], [phone] (829) Albumin/Globulin [Mass ratio] 1.2 {ratio} Normal 0.9-2.4 [facility] Comment on above: Performed By: #### L 3100.3425, L3300.1200, L5500.0550, L3200.1100, L3410.2400, L501.6710, L101.9900, L3300.1800, L500.4050, L100.0100 #### [facility] [address] [place], [place], [phone] (590) ALK PHOS 63 U/L Normal 35-104 [facility] Comment on above: Performed By: #### L 3100.3425, L3300.1200, L5500.0550, L3200.1100, L3410.2400, L501.6710, L101.9900, L3300.1800, L500.4050, L100.0100 #### [facility] [address] [place], [place], [phone] (301) ALT [Catalytic activity/Vol] 18 U/L Normal <=34 [facility] Comment on above: Performed By: #### L 3100.3425, L3300.1200, L5500.0550, L3200.1100, L3410.2400, L501.6710, L101.9900, L3300.1800, L500.4050, L100.0100 #### [facility] [address] [place], [address] AST [Catalytic activity/Vol] 33 U/L High <=31 [facility] Comment on above: Performed By: #### L 3100.3425, L3300.1200, L5500.0550, L3200.1100, L3410.2400, L501.6710, L101.9900, L3300.1800, L500.4050, L100.0100 #### [facility] [address] [place], [address] Bilirubin [Mass/Vol] 0.30 mg/dL Normal 0.00-1.30 [facility] Comment on above: Performed By: #### L 3100.3425, L3300.1200, L5500.0550, L3200.1100, L3410.2400, L501.6710, L101.9900, L3300.1800, L500.4050, L100.0100 #### [facility] [address] [place], [address] BUN/CRE 18.0 RATIO Normal 10-20 [facility] Comment on above: Performed By: #### L 3100.3425, L3300.1200, L5500.0550, L3200.1100, L3410.2400, L501.6710, L101.9900, L3300.1800, L500.4050, L100.0100 #### [facility] [address] [place], [address] Calcium [Mass/Vol] 10.4 mg/dL Normal 7.6-11.0 [facility] Comment on above: Performed By: #### L 3100.3425, L3300.1200, L5500.0550, L3200.1100, L3410.2400, L501.6710, L101.9900, L3300.1800, L500.4050, L100.0100 #### [facility] [address] [place], [address] Chloride [Moles/Vol] 105 mmol/L Normal 98-108 [facility] Comment on above: Performed By: #### L 3100.3425, L3300.1200, L5500.0550, L3200.1100, L3410.2400, L501.6710, L101.9900, L3300.1800, L500.4050, L100.0100 #### [facility] [address] [place], [address] CO2 [Moles/Vol] 21.5 mmol/L Normal 21.0-32.0 [facility] Comment on above: Performed By: #### L 3100.3425, L3300.1200, L5500.0550, L3200.1100, L3410.2400, L501.6710, L101.9900, L3300.1800, L500.4050, L100.0100 #### [facility] [address] [place], [address] Creatinine [Mass/Vol] 1.10 mg/dL Normal 0.70-1.20 [facility] Comment on above: Performed By: #### L 3100.3425, L3300.1200, L5500.0550, L3200.1100, L3410.2400, L501.6710, L101.9900, L3300.1800, L500.4050, L100.0100 #### [facility] [address] [place], [address] GAP 13 Normal 5-15 [facility] Comment on above: Performed By: #### L 3100.3425, L3300.1200, L5500.0550, L3200.1100, L3410.2400, L501.6710, L101.9900, L3300.1800, L500.4050, L100.0100 #### [facility] [address] [place], [address] GFR/1.73 sq M.predicted among non-blacks MDRD (S/P/Bld) [Vol rate/Area] 52 mL/min/{1.73_m2} Low >60 [facility] Comment on above: Result Comment: mL/m in/1.73m2 CKD-EPI Creatinine Equation (2020) Performed By: #### L 3100.3425, L3300.1200, L5500.0550, L3200.1100, L3410.2400, L501.6710, L101.9900, L3300.1800, L500.4050, L100.0100 #### [facility] [address] [place], [address] Globulin (S) [Mass/Vol] 3.4 g/dL Normal 2.2-4.2 [facility] Comment on above: Performed By: #### L 3100.3425, L3300.1200, L5500.0550, L3200.1100, L3410.2400, L501.6710, L101.9900, L3300.1800, L500.4050, L100.0100 #### [facility] [address] [place], [address] Glucose [Mass/Vol] 87 mg/dL Normal 70-99 [facility] Comment on above: Performed By: #### L 3100.3425, L3300.1200, L5500.0550, L3200.1100, L3410.2400, L501.6710, L101.9900, L3300.1800, L500.4050, L100.0100 #### [facility] [address] [place], [address] Potassium [Moles/Vol] 3.6 mmol/L Normal 3.3-5.1 [facility] Comment on above: Performed By: #### L 3100.3425, L3300.1200, L5500.0550, L3200.1100, L3410.2400, L501.6710, L101.9900, L3300.1800, L500.4050, L100.0100 #### [facility] [address] [place], [address] Sodium [Moles/Vol] 139 mmol/L Normal 133-145 [facility] Comment on above: Performed By: #### L 3100.3425, L3300.1200, L5500.0550, L3200.1100, L3410.2400, L501.6710, L101.9900, L3300.1800, L500.4050, L100.0100 #### [facility] [address] [place], [place], [phone] (545) T PROT 7.5 g/dL Normal 5.9-8.4 [facility] Comment on above: Performed By: #### L 3100.3425, L3300.1200, L5500.0550, L3200.1100, L3410.2400, L501.6710, L101.9900, L3300.1800, L500.4050, L100.0100 #### [facility] [address] [place], [place], [id number] Urea nitrogen [Mass/Vol] 20 mg/dL High 4-19 [facility] Comment on above: Performed By: #### L 3100.3425, L3300.1200, L5500.0550, L3200.1100, L3410.2400, L501.6710, L101.9900, L3300.1800, L500.4050, L100.0100 #### [facility] [address], [place], [phone] (559) Eosinophil percentageOrdered By: Aleksandar Quigley on 02-20-2025 Eosinophils/100 WBC (Bld) 2.6 % 0-5 [facility] Erythrocyte Sed Rateon 02-20 SED RATE 31 mm/hr High 0-30 [facility] Comment on above: Performed By: #### L 3100.3425, L3300.1200, L5500.0550, L3200.1100, L3410.2400, L501.6710, L101.9900, L3300.1800, L500.4050, L100.0100 #### [facility] [address] [place], [place], [id number] Erythrocyte distribution wid th ratioOrdered By: Aleksandar Quigley on 02-20-2025 Erythrocyte distribution width (RBC) [Ratio] 14.0 % 11.6-14.6 [facility] Erythrocyte distribution wid th standard deviationOrdered By: Aleksandarrosalee Quigley on 02-20-2025 Erythrocyte distribution width (RBC) [Ratio] 45.9 fl High 35.1-43.9 [facility] Erythrocyte sedimentation ra teOrdered By: Aleksandar Friend on 02-20-2025 ESR (Bld) [Velocity] 31 mm/h High 0-30 [facility] Gastrin, serumOrdered By: Ra gillis Friend on 02-20-2025 Gastrin [Mass/Vol] TNP [facility] Comment on above: Test not performedNo frozen serum received.CONTACTED YOUR FACILITY VIA EMAIL ON [id number] [employer] 2000 Immunochemiluminometric assay (ICMA)Values obtained with different assay methods or kits cannotbe used interchangeably. Results cannot be interpreted asabsolute evidence of the presence or absence of malignantdisease. Gastroenterology Visit Repor ton 02-20-2025 Gastroenterology Visit Report [facility] [address] [address] OFFICE VISIT Date of Service: 02/20/25 MR#: [id number] Acct: [id number] Name: FRANCILAURENCE Kendal Rep #: [id number] : 1950 Provider: Aleksandar Quigley DO Age/Sex: 74/F Location[facility] Status: Signed Intake Vital Signs 01/26/25 07:14 [...] Diverticulitis: Sta (more content not included)... Normal [facility] Glomerular filtration rate ( GFR) estimation/1.73 sq m using serum, plasma, or whole bOrdered By: Aleksandar Friend on 02-20-2025 GFR/1.73 sq M.predicted among non-blacks MDRD (S/P/Bld) [Vol rate/Area] 52 mL/min/{1.73_m2} Low >60 [facility] Comment on above: mL/min/1.73m2 CKD-EP I Creatinine Equation (2020) Hematocrit Auto (Bld) [Volum e fraction]Ordered By: Aleksandar Quigley on 02-20-2025 Hematocrit (Bld) [Volume fraction] 33.4 % Low 37-47 [facility] Hemoglobin measurementOrdere d By: Aleksandar Quigley on 02-20-2025 Hemoglobin (Bld) [Mass/Vol] 11.1 g/dL Low 12.0-15.0 [facility] IgEOrdered By: Aleksandar Medina d on 02-20-2025 IgE 4 IU/mL Low 6-495 [facility] Immature granulocytes/100 WB C Auto (Bld)Ordered By: Aleksandar Quigley on 02-20-2025 Immature granulocytes/100 WBC (Bld) 0.200 % 0.0-0.9 [facility] Comment on above: IG% - Immature Granu locytes (promyelocytes, myelocytes and metamyelocytes) > 1% indicates that a LEFT SHIFT is Present. Interpretation of serum or p lasma protein pattern by immunofixation (narrative resultOrdered By: Aleksandar Quigley on 02-20-2025 Protein Fractions Immunofixation Leo [Interp] Not Observed g/dL Not Observed [facility] - Chemistry and C hemistry - challengeOrdered By: Aleksandar Quigley on 02-20-2025 AST [Catalytic activity/Vol] 33 U/L High <32 [facility] - Miscellaneous t estsOrdered By: Aleksandar Quigley on 02-20-2025 Service comment (Unsp spec) [Interp] Comment . [facility] Comment on above: Levels of Specific I [...] (RBC) [Entitic vol] 89.3 fL 81-99 [facility] Mean corpuscular hemoglobin (MCH) determinationOrdered By: Aleksandar Quigley on 02-20-2025 MCH (RBC) [Entitic mass] 29.7 pg 27.0-32.0 [facility] Mean corpuscular hemoglobin concentration (MCHC) determinationOrdered By: Aleksandar Quigley on 02-20-2025 MCHC (RBC) [Mass/Vol] 33.2 g/dL 32-36 [facility] Mean platelet volume determi nationOrdered By: Aleksandar Quigley on 02-20-2025 Platelet mean volume (Bld) [Entitic vol] 11.6 fL 6.2-12.0 [facility] Monocyte percentageOrdered B y: Aleksandar Quigley on 02-20-2025 Monocytes/100 WBC (Bld) 8.5 % 0-10 [facility] Neutrophil percentageOrdered By: Aleksandar Quigley on 02-20-2025 Neutrophils/100 WBC (Bld) 41.1 % Low 47-70 [facility] No Panel InformationOrdered By: Aleksandar Quigley on 02-20-2025 Addendum Document Comment . [facility] Comment on above: Protein electrophore sis scan will follow via computer,mail, or balance clerk delivery. Nucleated red blood cell per centageOrdered By: Aleksandar Quigley on 02-20-2025 Nucleated RBC/100 WBC (Bld) [Ratio] 0 % 0-5 [facility] Platelet countOrdered By: Ra elis Quigley on 02-20-2025 Platelets (Bld) [#/Vol] 256 10*3/uL 150-450 [facility] Potassium measurement (mass/ volume)Ordered By: Aleksandar Quigley on 02-20-2025 Potassium (Unsp spec) [Mass/Vol] 3.6 mmol/L 3.3-5.1 [facility] RBC Auto (Bld) [#/Vol]Ordere d By: Aleksandar Quigley on 02-20-2025 RBC (Bld) [#/Vol] 3.74 10*6/uL Low 4.2-5.4 [facility] Serum beef IgE antibody assa y (units/volume)Ordered By: Aleksandar Quigley on 02-20-2025 Beef IgE Qn (S) <0.10 kU/L Class 0 [facility] Serum classic neutrophil cyt oplasmic antibody assay (units/volume)Ordered By: Aleksandar Quigley on 02-20-2025 Neutrophil cytoplasmic Ab.classic Qn (S) <1:20 titer Neg:<1:20 [facility] Serum codfish IgE antibody a ssay (units/volume)Ordered By: Aleksandar Quigley on 02-20-2025 Codfish IgE Qn (S) <0.10 kU/L Class 0 [facility] Serum corn IgE antibody assa y (units/volume)Ordered By: Aleksandar Quigley on 02-20-2025 Dodge IgE Qn (S) <0.10 kU/L Class 0 [facility] Serum cow milk IgE antibody assay (units/volume)Ordered By: Aleksandar Quigley on 02-20-2025 Cow milk IgE Qn (S) <0.10 kU/L Class 0 [facility] Serum creatinine measurement (mass/volume)Ordered By: Aleksandar Quigley on 02-20-2025 Creatinine [Mass/Vol] 1.10 mg/dL 0.70-1.20 [facility] Serum globulin measurementOr dered By: Aleksandar Quigley on 02-20-2025 Globulin (S) [Mass/Vol] 3.4 g/dL 2.2-4.2 [facility] Serum globulin measurement ( mass/volume)Ordered By: Aleksandar Quigley on 02-20-2025 Globulin (S) [Mass/Vol] 3.5 g/dL 2.2-3.9 [facility] Serum glucose measurement (m ass/volume)Ordered By: Aleksandar Quigley on 02-20-2025 Glucose [Mass/Vol] 87 mg/dL 70-99 [facility] Serum or plasma C reactive p rotein measurement (mass/volume)Ordered By: Aleksandar Quigley on 02-20-2025 CRP [Mass/Vol] mg/L 0.0-3.0 [facility] Serum or plasma IgA measurem ent (mass/volume)Ordered By: Aleksandar Quigley on 02-20-2025 IgA [Mass/Vol] 275 mg/dL 64-422 [facility] Serum or plasma IgG measurem ent (mass/volume)Ordered By: Aleksandar Quigley on 02-20-2025 IgG [Mass/Vol] 1242 mg/dL 586-1602 [facility] Serum or plasma alanine floyd otransferase (ALT) measurementOrdered By: Aleksandar Quigley on 02-20-2025 ALT [Catalytic activity/Vol] 18 U/L <35 [facility] Serum or plasma albumin nikunj urement (mass/volume)Ordered By: Aleksandar Quigley on 02-20-2025 Albumin [Mass/Vol] 4.2 g/dL 3.4-4.8 [facility] Serum or plasma albumin/glob ulin mass ratioOrdered By: Aleksandar Quigley on 02-20-2025 Albumin/Globulin [Mass ratio] 1.2 {ratio} 0.9-2.4 [facility] Serum or plasma alkaline ravi sphatase measurementOrdered By: Aleksandar Quigley on 02-20-2025 ALP [Catalytic activity/Vol] 63 U/L 35-104 [facility] Serum or plasma alpha 1 glob ulin measurement by electrophoresis (mass/volume)Ordered By: Aleksandar Quigley on 02-20-2025 Alpha 1 globulin Elph [Mass/Vol] 0.3 g/dL 0.0-0.4 [facility] Alpha 1 globulin Elph [Mass/Vol] 0.8 g/dL 0.4-1.0 [facility] Serum or plasma beta globuli n measurement by electrophoresis (mass/volume)Ordered By: Aleksandar Quigley on 02-20-2025 Beta globulin Elph [Mass/Vol] 1.1 g/dL 0.7-1.3 [facility] Serum or plasma calcium nikunj urement (mass/volume)Ordered By: Aleksandar Quigley on 02-20-2025 Calcium [Mass/Vol] 10.4 mg/dL 7.6-11.0 [facility] Serum or plasma gamma globul in measurement by electrophoresis (mass/volume)Ordered By: Aleksandar Quigley on 02-20-2025 Gamma globulin Elph [Mass/Vol] 1.2 g/dL 0.4-1.8 [facility] Serum or plasma immunoelectr ophoresis interpretation (nominal result)Ordered By: Aleksandar Quigley on 02-20-2025 Interpretation IEP [Interp] Comment . [facility] Comment on above: No monoclonality det ected. Serum or plasma protein nikunj urement (mass/volume)Ordered By: Aleksandar Quigley on 02-20-2025 Protein [Mass/Vol] 7.1 g/dL 6.0-8.5 [facility] Serum or plasma urea nitroge n measurement (mass/volume)Ordered By: Aleksandar Quigley on 02-20-2025 Urea nitrogen [Mass/Vol] 20 mg/dL High 4-19 [facility] Serum peanut IgE antibody as say (units/volume)Ordered By: Aleksandar Quigley on 02-20-2025 Peanut IgE Qn (S) <0.10 kU/L Class 0 [facility] Serum perinuclear neutrophil cytoplasmic antibody titer by immunofluorescenceOrdered By: Aleksandar Quigley on 02-20-2025 Neutrophil cytoplasmic Ab.perinuclear IF (S) [Titer] <1:20 titer Neg:<1:20 [facility] Comment on above: The presence of posi tive fluorescence exhibiting P-ANCA orC-ANCA patterns alone is not specific for the diagnosis ofWegener's Granulomatosis (WG) or microscopic polyangiitis.Decisions about treatment should not be based solely onANCA IFA results. The [employer] ANCA Group Consensusrecommends follow up testing of positive sera with both DE-3 and MPO-ANCA enzyme immunoassays. As many as 5% serumsamples are positive only by EIA. Ref. AM J Clin Uwcmml8510;111:507-513. Serum pork IgE antibody assa y (units/volume)Ordered By: Aleksandar Quigley on 02-20-2025 Pork IgE Qn (S) <0.10 kU/L Class 0 [facility] Serum salmon IgE antibody as say (units/volume)Ordered By: Aleksandar Quigley on 02-20-2025 [place] IgE Qn (S) <0.10 kU/L Class 0 [facility] Serum soybean IgE antibody a ssay (units/volume)Ordered By: Aleksandar Quigley on 02-20-2025 Soybean IgE Qn (S) <0.10 kU/L Class 0 [facility] Serum tissue transglutaminas e (tTG) IgA antibody assay (units/volume)Ordered By: Aleksandar Quigley on 02-20-2025 tTG IgA Qn (S) <2 U/mL 0-3 [facility] Comment on above: Negative 0 - 3 Weak Positive 4 - 10 Positive >10 Tissue Transglutaminase (tTG) has been identified as the endomysial antigen. Studies have demonstr- ated that endomysial IgA antibodies have over 99% specificity for gluten sensitive enteropathy. Serum tuna IgE antibody assa y (units/volume)Ordered By: Aleksandar Quigley on 02-20-2025 Tuna IgE Qn (S) <0.10 kU/L Class 0 [facility] Serum wheat IgE antibody ass ay (units/volume)Ordered By: Aleksandar Quigley on 02-20-2025 Wheat IgE Qn (S) <0.10 kU/L Class 0 [facility] Serum whole egg IgE antibody assay (units/volume)Ordered By: Aleksandar Quigley on 02-20-2025 Whole Egg IgE Qn (S) <0.10 kU/L Class 0 [facility] Comment on above: Performed at: [address] [id number] Director: Kerwin Ni MD, Phone: [phone] Sodium levelOrdered By: Rose Cage on 02-20-2025 Sodium [Moles/Vol] 139 mmol/L 133-145 [facility] Total proteinOrdered By: Osmani Quigley on 02-20-2025 Protein [Mass/Vol] 7.5 g/dL 5.9-8.4 [facility] White blood cell (WBC) count Ordered By: Aleksandar Quigley on 02-20-2025 WBC (Bld) [#/Vol] 4.6 10*3/uL 4.4-11.0 [facility] CNPNon 02-16-2025 CNPN Telephone (FAMWS) -------- FRANCILAURENCE Kendal ([id number]) 1950 F Date Time Provider Department 02/16/25 FABIAN MCMULLEN During your visit today, we recorded the [...] Status:Closed by MARGARET REYES on 02/17/25 Normal [facility] C diff Tox gens Stl Ql BRITTANI+p robeon 02-15-2025 C. difficile toxin genes BRITTANI+probe Ql (Stl) Negative Normal Negative for C. difficile toxin by PCR [facility] Comment on above: Order Comment: Speci men Type: STOOL SPECIMENOrdering Facility: [facility] Address: [address] [place] [address] Performed By: #### 5 4067-4 ####[facility] [id number] [place] [address] [place] G lamblia+Cryptosp Ag Stl Ql IAon 02-15-2025 G. lamblia+Cryptosporidium sp Ag IA Ql (Stl) CRYPTOSPORIDIUM ANTIGEN BY EIA: Negative for Cryptosporidium by EIA. GIARDIA ANTIGEN BY EIA: Negative for Giardia lamblia by EIA. Normal [facility] Comment on above: Performed By: #### 7 9390-1, 10318-1 ####[facility] [id number] [place] [address] [place] Gastrointestinal pathogens i dentified BRITTANI+probe Nom (Stl)on 02-15-2025 Campylobacter sp DNA BRITTANI+probe Nom (Unsp spec) Not detected Normal Not Detected [facility] Comment on above: Order Comment: Speci men Type: STOOL SPECIMENOrdering Facility: [facility] Address: [address] [place] [address] Performed By: #### 7 9390-1, 23021-0 ####[facility] [id number] [place] [address] [place] Salmonella sp DNA BRITTANI+probe Ql (Unsp spec) Not detected Normal Not Detected [facility] Comment on above: Order Comment: Speci men Type: STOOL SPECIMENOrdering Facility: [facility] Address: [address] [place] [address] Performed By: #### 7 9390-1, 43596-9 ####[facility] [id number] [place] [address] [place] Shiga toxin stx gene BRITTANI+probe Nom (Unsp spec) Not detected Normal Not Detected [facility] Comment on above: Order Comment: Speci men Type: STOOL SPECIMENOrdering Facility: [facility] Address: [address] [place] [address] Performed By: #### 7 9390-1, 94084-8 ####[facility] [id number] [address] [place] Shigella sp DNA BRITTANI+probe Ql (Unsp spec) Not detected Normal Not Detected [facility] Comment on above: Order Comment: Speci men Type: STOOL SPECIMENOrdering Facility: [facility] Address: [address] [place] [address] Performed By: #### 7 9390-1, 72596-2 ####[facility] [id number] [place] [address] [place] Ferritin SerPl-mCncon 2024 Ferritin [Mass/Vol] 153.0 ng/mL Normal 14.7-205.1 [facility] Comment on above: Order Comment: Speci men Type: BLOOD SPECIMENOrdering Facility: [facility] Address: [address] [place] [address] Performed By: #### 5 0190-8, 3016-3, 2276-4 ####[facility] [id number] [place] [address] [place] Folate SerPl-mCncon 02-14-20 25 Folate [Mass/Vol] ng/mL Normal >4.7 [facility] Comment on above: Order Comment: Speci men Type: BLOOD SPECIMENOrdering Facility: [facility] Address: [address], [place] [address] Result Comment: A re sult of > 20 ng/mL is not necessarily indicative of a pathologic or treatable condition: it reflects a limitation of the test methodology. Assay reference range: 4.8 to 24.2 ng/mL. Suitable for detection of folate deficiency. Reference: Folate III (Folate III) [package insert V 1.0 Croatian]. Omar Hammerless, [place], [place]: August 2015. Performed By: #### 2 284-8, 2132-9 ####[facility] [id number] [place] [address] [place] Hemoccult Stl Ql IAon 2024 Lower GI hemoglobin IA Ql (Stl) Negative Normal Negative [facility] Comment on above: Order Comment: Speci men Type: STOOL SPECIMENOrdering Facility: [facility] Address: [address] [place] [address] Performed By: #### 2 9771-3 ####[facility] [id number] [place] [address] [place] Iron and Iron binding capaci ty panelon 02-13-2025 Iron [Mass/Vol] 60 ug/dL Normal 41-186 [facility] Comment on above: Order Comment: Speci men Type: BLOOD SPECIMENOrdering Facility: [facility] Address: [address] [place] [address] Performed By: #### 5 0190-8, 3016-3, 2275-4 ####[facility] [id number] [place] [address] [place] Iron binding capacity [Mass/Vol] 284 ug/dL Normal 232-386 [facility] Comment on above: Order Comment: Speci men Type: BLOOD SPECIMENOrdering Facility: [facility] Address: [address] [place] [address] Performed By: #### 5 0190-8, 3016-3, 6-4 ####[facility] [id number] [place] [address] [place] Iron/TIBC [Molar ratio] 21.1 % Normal 15.0-57.0 C [facility] Comment on above: Order Comment: Speci men Type: BLOOD SPECIMENOrdering Facility: [facility] Address: [address] [place] [address] Performed By: #### 5 0190-8, 3016-3, 6-4 ####[facility] [id number] [address] OF [facility] TSH SerPl-aCncon 02-13-2025 TSH Qn 2.370 m[IU]/L Normal 0.270-4.20 0 [facility] Comment on above: Order Comment: Speci men Type: BLOOD SPECIMENOrdering Facility: [facility] Address: [address] [place] [address] Performed By: #### 5 0190-8, 3016-3, 6-4 ####[facility] [id number] [address] OF [facility] Vit B12 SerPl-mCncon 025 Cobalamin (Vitamin B12) [Mass/Vol] 1281 pg/mL High 232-1245 [facility] Comment on above: Order Comment: Speci men Type: BLOOD SPECIMENOrdering Facility: [facility] Address: [address] [place] [address] Performed By: #### 2 284-8, 2132-9 ####[facility] [id number] [address] [place] CNOVon 02-12-2025 CNOV Office Visit (FAMPWS ) -------- LAURENCE KOROMA ([id number]) 1950 F Date Time Provider Department 02/12/25 1:20 PM CONSTANCE KLEIN During your visit today, we [...] loratadine (CLA (more content not included)... Normal [facility] 02-11-2025 CNPN Telephone (FAMPWS) -------- LAURENCE KOROMA ([id number]) 1950 F Date Time Provider Department 02/11/25 [facility] visit today, we recorded the following information about you: Osmar Bradford, GABBY 02/11/2025 10:51 AM Signed Pt reports she [...] and pt is worried about that. Elina Mckenzie, Constance Carr PA-C 02/11/2025 12:18 PM Signed Will discuss [...] Fully Assessed Reason for Visit: Patient Question [3237] Prescriptions as of 02/11/2025 - lisinopril (ZESTRIL) [...] dysplasia of (more content not included)... Normal [facility] 25(OH)D3 SerPl-ncon 2024 25-hydroxyvitamin D3 [Mass/Vol] 71.0 ng/mL Normal 31.0-80.0 [facility] Comment on above: Order Comment: Speci men Type: BLOOD SPECIMENOrdering Facility: [facility] Address: [address] [place] [address] Performed By: #### 1 989-3 ####[facility] [id number] [place] [address] [place] CBC W Auto Differential pane l (Bld)on 02-09-2025 Basophils (Bld) [#/Vol] 0.04 10*3/uL Normal <0.11 [facility] Comment on above: Order Comment: Speci men Type: BLOOD SPECIMENOrdering Facility: [facility] Address: [address] [place] [address] Performed By: #### 5 7021-8 ####[facility] [id number] [place] [address] [place] Basophils/100 WBC (Bld) 0.7 % Normal [facility] Comment on above: Order Comment: Speci men Type: BLOOD SPECIMENOrdering Facility: [facility] Address: [address] [place] [address] Performed By: #### 5 7021-8 ####[facility] [id number] [place] [address] [place] Differential cell count method Nom (Bld) Auto Normal [facility] Comment on above: Order Comment: Speci men Type: BLOOD SPECIMENOrdering Facility: [facility] Address: [address] [place] [address] Performed By: #### 5 7021-8 ####[facility] [id number] [place] [address] [place] Eosinophils (Bld) [#/Vol] 0.11 10*3/uL Normal <0.46 [facility] Comment on above: Order Comment: Speci men Type: BLOOD SPECIMENOrdering Facility: [facility] Address: [address] [place] [address] Performed By: #### 5 7021-8 ####[facility] [id number] [address] [place] [address] [place] Eosinophils/100 WBC (Bld) 1.8 % Normal [facility] Comment on above: Order Comment: Speci men Type: BLOOD SPECIMENOrdering Facility: [facility] Address: [address] [place] [address] Performed By: #### 5 7021-8 ####[facility] [id number] [address], [place] [address] [place] Erythrocyte distribution width (RBC) [Ratio] 14.5 % Normal 11.5-15.0 [facility] Comment on above: Order Comment: Speci men Type: BLOOD SPECIMENOrdering Facility: [facility] Address: [address] [place] [address] Performed By: #### 5 7021-8 ####[facility] [id number] [address], [facility] [place] Hematocrit (Bld) [Volume fraction] 32.5 % Low 36.0-46.0 [facility] Comment on above: Order Comment: Speci men Type: BLOOD SPECIMENOrdering Facility: [facility] Address: [address] [place] [address] Performed By: #### 5 7021-8 ####[facility] [id number] [place] [address] [place] Hemoglobin (Bld) [Mass/Vol] 10.5 g/dL Low 11.5-15.5 [facility] Comment on above: Order Comment: Speci men Type: BLOOD SPECIMENOrdering Facility: [facility] Address: [address] [place] [address] Performed By: #### 5 7021-8 ####[facility] [id number] [place] [address] [place] Immature granulocytes (Bld) [#/Vol] 0.03 10*3/uL Normal <0.10 [facility] Comment on above: Order Comment: Speci men Type: BLOOD SPECIMENOrdering Facility: [facility] Address: [address] [place] [address] Performed By: #### 5 7021-8 ####[facility] [id number] [place] [address] [place] Immature granulocytes/100 WBC (Bld) 0.5 % Normal [facility] Comment on above: Order Comment: Speci men Type: BLOOD SPECIMENOrdering Facility: [facility] Address: [address] [place] [address] Performed By: #### 5 7021-8 ####[facility] [id number] [place] [address] [place] Lymphocytes (Bld) [#/Vol] 1.98 10*3/uL Normal 1.00-4.0 0 [facility] Comment on above: Order Comment: Speci men Type: BLOOD SPECIMENOrdering Facility: [facility] Address: [address] [place] [address] Performed By: #### 5 7021-8 ####[facility] [id number] [place] [address] [place] Lymphocytes/100 WBC (Bld) 33.1 % Normal [facility] Comment on above: Order Comment: Speci men Type: BLOOD SPECIMENOrdering Facility: [facility] Address: [address] [place] [address] Performed By: #### 5 7021-8 ####[facility] [id number] [place] [address] [place] MCH (RBC) [Entitic mass] 28.9 pg Normal 26.0-34.0 [facility] Comment on above: Order Comment: Speci men Type: BLOOD SPECIMENOrdering Facility: [facility] Address: [address] [place] [address] Performed By: #### 5 7021-8 ####[facility] [id number] [place] [address] [place] MCHC (RBC) [Mass/Vol] 32.3 g/dL Normal 30.5-36.0 [facility] Comment on above: Order Comment: Speci men Type: BLOOD SPECIMENOrdering Facility: [facility] Address: [address] [place] [address] Performed By: #### 5 7021-8 ####[facility] [id number] [place] [address] [place] MCV (RBC) [Entitic vol] 89.5 fL Normal 80.0-100.0 C [facility] Comment on above: Order Comment: Speci men Type: BLOOD SPECIMENOrdering Facility: [facility] Address: [address] [place] [address] Performed By: #### 5 7021-8 ####[facility] [id number] [place] [address] [place] Monocytes (Bld) [#/Vol] 0.48 10*3/uL Normal <0.87 [facility] Comment on above: Order Comment: Speci men Type: BLOOD SPECIMENOrdering Facility: [facility] Address: [address] [place] [address] Performed By: #### 5 7021-8 ####[facility] [id number] [place] [address] [place] Monocytes/100 WBC (Bld) 8.0 % Normal C [facility] Comment on above: Order Comment: Speci men Type: BLOOD SPECIMENOrdering Facility: [facility] Address: [address] [place] [address] Performed By: #### 5 7021-8 ####[facility] [id number] [place] [address] [place] Neutrophils (Bld) [#/Vol] 3.35 10*3/uL Normal 1.45-7.5 0 [facility] Comment on above: Order Comment: Speci men Type: BLOOD SPECIMENOrdering Facility: [facility] Address: [address] [place] [address] Performed By: #### 5 7021-8 ####[facility] [id number] [place] [address] [place] Neutrophils/100 WBC (Bld) 55.9 % Normal [facility] Comment on above: Order Comment: Speci men Type: BLOOD SPECIMENOrdering Facility: [facility] Address: [address] [place] [address] Performed By: #### 5 7021-8 ####[facility] [id number] [address], [place] [address] [place] Nucleated RBC (Bld) [#/Vol] 10*3/uL Normal <0.01 [facility] Comment on above: Order Comment: Speci men Type: BLOOD SPECIMENOrdering Facility: [facility] Address: [address] [place] [address] Performed By: #### 5 7021-8 ####[facility] [id number] [facility] [facility] [place] [address], [facility] [place] Nucleated RBC/100 WBC (Bld) [Ratio] 0.0 /100 WBC Normal [facility] Comment on above: Order Comment: Speci men Type: BLOOD SPECIMENOrdering Facility: [facility] Address: [address] [place] [address] Performed By: #### 5 7021-8 ####[facility] LABCLIA [id number] [place] [address] [place] Platelet mean volume (Bld) [Entitic vol] 10.9 fL Normal 9.0-12.7 [facility] Comment on above: Order Comment: Speci men Type: BLOOD SPECIMENOrdering Facility: [facility] Address: [address] [place] [address] Performed By: #### 5 7021-8 ####[facility] LABIA [id number] [place] [address] [place] Platelets (Bld) [#/Vol] 329 10*3/uL Normal 150-400 [facility] Comment on above: Order Comment: Speci men Type: BLOOD SPECIMENOrdering Facility: [facility] Address: [address] [place] [address] Performed By: #### 5 7021-8 ####[facility] LABIA [id number] [place] [address] [place] RBC (Bld) [#/Vol] 3.63 10*6/uL Low 3.90-5.20 [facility] Comment on above: Order Comment: Speci men Type: BLOOD SPECIMENOrdering Facility: [facility] Address: [address] [place] [address] Performed By: #### 5 7021-8 ####[facility] LABIA [id number] [place] [address] [place] WBC (Bld) [#/Vol] 5.99 10*3/uL Normal 3.70-11.00 [facility] Comment on above: Order Comment: Speci men Type: BLOOD SPECIMENOrdering Facility: [facility] Address: [address] [place] [address] Performed By: #### 5 7021-8 ####[facility] LABIA [id number] [place] [address] [place] Benedict 02-09-2025 [facility] -------- LAURENCE KOROMA ([id number]) 1950 F Date Time Provider Department 02/09/25 [...] BLOOD COUNT AND DIFFERENTIAL [SQCBCDIF] Order #: [id number] FUTURE Prescriptions as of 02/09/2025 - lisinopril [...] Status:Closed by ELINA MCKENZIE on 02/09/25 Normal [facility] HbA1c (Bld)on 02-09-2025 Average glucose Estimated from glycated hemoglobin (Bld) [Mass/Vol] 126 mg/dL Normal [facility] Comment on above: Order Comment: Speci men Type: BLOOD SPECIMENOrdering Facility: [facility] Address: [address] [place] [address] Result Comment: eAG: (Estimated average glucose) is a calculated value from HgbA1c and is call center support representative of the average blood glucose level in the last 2-3 month period. Performed By: #### 5 5454-3 ####[facility] LABCLIA [id number] [place] [address] [place] HbA1c (Bld) [Mass fraction] 6.0 % High 4.3-5.6 [facility] Comment on above: Order Comment: Grazyna anton Type: BLOOD SPECIMENOrdering Facility: [facility] Address: [address] [place] [address] Result Comment: Amer ican Diabetes Association guidelines indicate that patients with HgbA1c in the range 5.7-6.4% are at increased risk for development of diabetes, and intervention by lifestyle modification may be beneficial. HgbA1c greater or equal to 6.5% is considered diagnostic of diabetes. Performed By: #### 5 5454-3 ####[facility] LABCLIA [id number] [address] OF [facility] LIPID PANEL, NONFASTINGon Cholesterol [Mass/Vol] 142 mg/dL Normal <200 [facility] Comment on above: Order Comment: Grazyna anton Type: BLOOD SPECIMENOrdering Facility: [facility] Address: [address] [place] [address] Result Comment: <200 mg/dL, Desirable 200-239 mg/dL, Borderline high >239 mg/dL, High Performed By: #### L IPNF ####[facility] LABIA [id number] [address] [place] HDL CHOLESTEROL, NF 41 mg/dL Normal >39 [facility] Comment on above: Order Comment: Grazyna anton Type: BLOOD SPECIMENOrdering Facility: [facility] Address: [address] [place] [address] Result Comment: 40-5 9 mg/dL, Acceptable >59 mg/dL, High: Negative risk factor for coronary heart disease <40 mg/dL, Low: Positive risk factor for coronary heart disease Performed By: #### L IPNF ####[facility] LABIA [id number] [address] OF [place] LDL CHOLESTEROL CALCULATED, NF 84 mg/dL Normal <100 [facility] Comment on above: Order Comment: Stephyasmin anton Type: BLOOD SPECIMENOrdering Facility: [facility] Address: [address] [place] [address] Result Comment: <100 mg/dL, Optimal 100-129 mg/dL, Near optimal/above optimal 130-159 mg/dL, Borderline high 160-189 mg/dL, High >189 mg/dL, Very high Secondary prevention optimal LDL Cholesterol levels are recommended to be <70 mg/dL LDL cholesterol is calculated using the Mar-NIH equation. Performed By: #### L IPNF ####[facility] LABIA [id number] [address] LDL/HDL RATIO, NF 2.05 mg/dL Normal <2.54 [facility] Comment on above: Order Comment: Grazyna anton Type: BLOOD SPECIMENOrdering Facility: [facility] Address: [address] [place] [address] Result Comment: Refe rence: 1. National Cholesterol Education Program ATP III Guideline At-A-Glance Quick Desk Reference: National Heart, Lung, and Blood Wilson. National Institutes of Health. 2001: NIH Publication No. 01-3305. 2. An International Atherosclerosis Society position paper: global recommendations for the management of dyslipidemia: executive summary, Atherosclerosis. 2014: 232(2):410-413. Performed By: #### L IPNF ####[facility] LABIA [id number] [address] NON HDL CHOL, NF 101 mg/dL Normal <130 [facility] Comment on above: Order Comment: Grazyna anton Type: BLOOD SPECIMENOrdering Facility: [facility] Address: [address] [place] [address] Result Comment: <130 mg/dL, Optimal 130-159 mg/dL, Near optimal/above optimal 160-189 mg/dL, Borderline high 190-219 mg/dL, High >219 mg/dL, Very high Secondary prevention optimal non HDL Cholesterol levels are recommended to be <100 mg/dL Performed By: #### L IPNF ####[facility] LABCLIA [id number] [address] STATES OF [facility] T CHOL/HDL RATIO NF 3.46 mg/dL Normal <5.10 [facility] Comment on above: Order Comment: Speci men Type: BLOOD SPECIMENOrdering Facility: [facility] Address: [address] [place] [address] Performed By: #### L IPNF ####[facility] LABCLIA [id number] [address] [place] TRIGLYCERIDES, NF 91 mg/dL Normal <150 [facility] Comment on above: Order Comment: Speci men Type: BLOOD SPECIMENOrdering Facility: [facility] Address: [address] [place] [address] Result Comment: <150 mg/dL, Normal 150-199 mg/dL, Borderline high 200-499 mg/dL, High >499 mg/dL, Very high Performed By: #### L IPNF ####[facility] LABCLIA [id number] [address] OF [facility] VLDL CHOLESTEROL, NF 14 mg/dL Normal <30 [facility] Comment on above: Order Comment: Speci men Type: BLOOD SPECIMENOrdering Facility: [facility] Address: [address] [place] [address] Performed By: #### L IPNF ####[facility] LABCLIA [id number] [address] OF [facility] CNOVon 01-29-2025 CNOV Office Visit (JORGEWS ) -------- LAURENCE KOROMA ([id number]) 1950 F Date Time Provider Department 01/29/25 1:20 PM KATIE CHAUDHARI During your visit today, we recorded the following information about you: Pulse Blood pressure Weight 96/minute 108/64 46 kg Katie Chaudhari, WAYLON.CAMPGROUND ATTENDANT 01/29/2025 1:31 PM Signed Chief Complaint Patient [...] Health Maint (more content not included)... [facility] (FAMPWS) -------- LAURENCE KOROMA Kendal ([id number]) 1950 F Date Time Provider Department 01/27/25 [facility]EN [facility] During your visit today, we recorded the following information about you: Margaret Reyes RN 01/27/2025 10:50 AM Signed Patient went [...] avoid. She started taking a probiotoc, called Eyesquadgen. Patient asking provider if there is anything she should be doing or watching for in the mean time between now and her appt with Katie on Sunday? She wants to avoid getting C-Diff again or having to go back to the hospital in the future. GABBY Garsia Danielle, APRN.SONDRA 01/27/2025 12:01 PM Signed Unfortunately Cdiff can occur with any antibiotic use. Would recommend patient stay well hydrated and keep track of amount of loose stools each day. Elmira Amos MA 01/27/2025 12:30 PM Signed Call to patient, received VM. EVANS to return call to office and speak [...] (aortic insuffi (more content not included)... Normal [facility] 12 Lead EKGon 01-26-2025 12 Lead EKG [facility] Cardi[facility] Services [address] [place] [address] 12 Lead EKG 01/26/25 0735 MR#: [id number] Acct: [id number] Name: LAURENCE KOROMA Rep #: [id number] : 1950 74 From: Enoch Malik MD [...] normal ECG Confirmed by Enoch Malik ([id number]), fashion editor KRISTEN CRUZ ([id number]) on 01/27/2025 11:25:33 AM Referred By: Confirmed By: Enoch Malik 01/27/25 1125 Date Enoch Malik MD CC: Dr. Fabian Mcmullen MD; Dr. Isaura Shipley DO Signed Normal [facility] Abdomen/Pelvis W IV Cont ONL Yon 01-26-2025 Abdomen/Pelvis W IV Cont ONLY [facility] Imaging Services [address] [place] [address] [id number] Abdomen/Pelvis W IV Cont ONLY MR#: [id number] Acct: [id number] Name: LAURENCE KOROMA Rep #: [id number] : 1950 F 74 From: Ca Pérez PCP: Dr. Fabian Mcmullen MD Status: DEP ER Study: Abdomen/Pelvis W IV Cont ONLY Date of Exam: Exam# [id number] Ordering Dr: Isaura Shipley DO PROCEDURE: ABDOMEN/PELVIS [...] involving L3-L4, L4-L5, and L5-L6 Reading Location: [id number] CC: Dr. Fabian Mcmullen MD; Dr. Isaura Shipley DO Mud Temperer: Signed Normal [facility] Absolute lymphocyte countOrd ered By: Isaura Shipley on 01-26-2025 Lymphocytes Auto (Unsp spec) [#/Vol] 1.91 10*3/uL 0.83-4.51 [facility] Absolute neutrophil countOrd ered By: Isaura Shipley on 01-26-2025 Neutrophils (Bld) [#/Vol] 9.7 10*3/uL High 2.0-7.7 [facility] Anion gap in Serum or Plasma Ordered By: Isaura Shipley on 01-26-2025 Anion gap [Moles/Vol] 10 mmol/L 5-15 [facility] Automated lymphocyte count a s percentage of total leukocytesOrdered By: Isaura Shipley on 01-26-2025 Lymphocytes/100 WBC Auto (Unsp spec) 14.9 % Low 19-41 [facility] BUN/creatinine ratioOrdered By: Isaura Shipley on 01-26-2025 Urea nitrogen/Creatinine [Mass ratio] 19.8 mg/mg 10- [facility] Basic Metabolic Profile (BMP )on 01-26-2025 BUN/CRE 19.8 RATIO Normal - [facility] Comment on above: Performed By: #### L 503.6005, L500.2500, L100.0100 #### [facility] [address] [place], [address] Calcium [Mass/Vol] 9.5 mg/dL Normal 7.6-11.0 [facility] Comment on above: Performed By: #### L 503.6005, L500.2500, L100.0100 #### [facility] [address] [place], [address] Chloride [Moles/Vol] 102 mmol/L Normal 98-108 [facility] Comment on above: Performed By: #### L 503.6005, L500.2500, L100.0100 #### [facility] [address] [place], [address] CO2 [Moles/Vol] 22.7 mmol/L Normal 21.0-32.0 [facility] Comment on above: Performed By: #### L 503.6005, L500.2500, L100.0100 #### [facility] [address] [place], [address] Creatinine [Mass/Vol] 1.01 mg/dL Normal 0.70-1.20 [facility] Comment on above: Performed By: #### L 503.6005, L500.2500, L100.0100 #### [facility] [address] [place], [address] ECRCL 34.04 ml/min Low 50-250 [facility] Comment on above: Performed By: #### L 503.6005, L500.2500, L100.0100 #### [facility] [address] [place], [address] GAP 10 Normal 5-15 [facility] Comment on above: Performed By: #### L 503.6005, L500.2500, L100.0100 #### [facility] [address] [place], [address] GFR/1.73 sq M.predicted among non-blacks MDRD (S/P/Bld) [Vol rate/Area] 58 mL/min/{1.73_m2} Low >60 [facility] Comment on above: Result Comment: mL/m in/1.73m2 CKD-EPI Creatinine Equation (2020) Performed By: #### L 503.6005, L500.2500, L100.0100 #### [facility] [address] [place], [address] Glucose [Mass/Vol] 116 mg/dL High 70-99 [facility] Comment on above: Performed By: #### L 503.6005, L500.2500, L100.0100 #### [facility] [address] [place], [address] Potassium [Moles/Vol] 3.6 mmol/L Normal 3.3-5.1 [facility] Comment on above: Performed By: #### L 503.6005, L500.2500, L100.0100 #### [facility] [address] [place], [address] Sodium [Moles/Vol] 135 mmol/L Normal 133-145 [facility] Comment on above: Performed By: #### L 503.6005, L500.2500, L100.0100 #### [facility] [address] [place], [address] Urea nitrogen [Mass/Vol] 20 mg/dL High - [facility] Comment on above: Performed By: #### L 503.6005, L500.2500, L100.0100 #### [facility] [address] [place], [address] Basophil percentageOrdered B y: Isaura Shipley on 01-26-2025 Basophils/100 WBC (Bld) 0.1 % 0-1 [facility] Bilirubin Test strip Ql (U)O rdered By: Isaura Shipley on 01-26-2025 Bilirubin Ql (U) Negative Negative [facility] CBC W/Diff, Automatedon 01-13 Absolute Lymph 1.91 X10 3/uL Normal 0.83-4.51 [facility] Comment on above: Performed By: #### L 503.6005, L500.2500, L100.0100 #### [facility] [address] [place], [address] Absolute Neut 9.7 X10 3/uL High 2.0-7.7 [facility] Comment on above: Performed By: #### L 503.6005, L500.2500, L100.0100 #### [facility] [address] [place], [address] Basophils/100 WBC (Bld) 0.1 % Normal 0-1 [facility] Comment on above: Performed By: #### L 503.6005, L500.2500, L100.0100 #### [facility] [address] [place], [address] Eosinophils/100 WBC (Bld) 0.3 % Normal 0-5 [facility] Comment on above: Performed By: #### L 503.6005, L500.2500, L100.0100 #### [facility] [address], [address] Erythrocyte distribution width (RBC) [Ratio] 14.5 % Normal 11.6-14.6 [facility] Comment on above: Performed By: #### L 503.6005, L500.2500, L100.0100 #### [facility] [address] [place], [address] Hematocrit (Bld) [Volume fraction] 34.5 % Low 37-47 [facility] Comment on above: Performed By: #### L 503.6005, L500.2500, L100.0100 #### [facility] [address] [place], [address] Hemoglobin (Bld) [Mass/Vol] 11.5 g/dL Low 12.0-15.0 [facility] Comment on above: Performed By: #### L 503.6005, L500.2500, L100.0100 #### [facility] [address] [place], [address] IG% 0.500 Normal 0.0-0.9 [facility] Comment on above: Result Comment: IG% - Immature Granulocytes (promyelocytes, myelocytes and metamyelocytes) > 1% indicates that a LEFT SHIFT is Present. Performed By: #### L 503.6005, L500.2500, L100.0100 #### [facility] [address] [place], [address] Lymphocytes/100 WBC (Bld) 14.9 % Low 19-41 [facility] Comment on above: Performed By: #### L 503.6005, L500.2500, L100.0100 #### [facility] [address] [place], [address] MCH (RBC) [Entitic mass] 30.0 pg Normal 27.0-32.0 [facility] Comment on above: Performed By: #### L 503.6005, L500.2500, L100.0100 #### [facility] [address] [place], [address] MCHC (RBC) [Mass/Vol] 33.3 g/dL Normal 32-36 [facility] Comment on above: Performed By: #### L 503.6005, L500.2500, L100.0100 #### [facility] [address] [place], [address] MCV (RBC) [Entitic vol] 90.1 fL Normal 81-99 [facility] Comment on above: Performed By: #### L 503.6005, L500.2500, L100.0100 #### [facility] [address] [place], [address] Monocytes/100 WBC (Bld) 8.7 % Normal 0-10 [facility] Comment on above: Performed By: #### L 503.6005, L500.2500, L100.0100 #### [facility] [address] [place], [address] Neutrophils/100 WBC (Bld) 75.5 % High 47-70 [facility] Comment on above: Performed By: #### L 503.6005, L500.2500, L100.0100 #### [facility] [address] [place], [address] Nucleated RBC (Bld) [#/Vol] 0 10*3/uL Normal 0-5 [facility] Comment on above: Performed By: #### L 503.6005, L500.2500, L100.0100 #### [facility] [address] [place], [address] Platelet mean volume (Bld) [Entitic vol] 10.4 fL Normal 6.2-12.0 [facility] Comment on above: Performed By: #### L 503.6005, L500.2500, L100.0100 #### [facility] [address] [place], [address] Platelets (Bld) [#/Vol] 270 10*3/uL Normal 150-450 [facility] Comment on above: Performed By: #### L 503.6005, L500.2500, L100.0100 #### [facility] [address] [place], [address] RBC (Bld) [#/Vol] 3.83 10*6/uL Low 4.2-5.4 [facility] Comment on above: Performed By: #### L 503.6005, L500.2500, L100.0100 #### [facility] [address] [place], [address] RDW SD 47.8 fl High 35.1-43.9 [facility] Comment on above: Performed By: #### L 503.6005, L500.2500, L100.0100 #### [facility] [address] [place], [address] WBC (Bld) [#/Vol] 12.8 10*3/uL High 4.4-11.0 [facility] Comment on above: Performed By: #### L 503.6005, L500.2500, L100.0100 #### [facility] [address] [place], [address] Carbon dioxide, total [Moles /volume] in Central venous bloodOrdered By: Isaura Shipley on 01-26-2025 CO2 [Moles/Vol] 22.7 mmol/L 21.0-32.0 [facility] Chloride assayOrdered By: Toshia Shipley on 01-26-2025 Chloride [Moles/Vol] 102 mmol/L 98-108 [facility] Emergency Department Summary on 01-26-2025 Emergency Department Summary [facility] Medical Records Department [address] [place] [address] Emergency Department Summary 01/26/25 MR#: [id number] Acct: [id number] Name: LAURENCE KOROMA Rep #: [id number] : 1950 74 From: Isaura Shipley DO [...] tarry stool. She has had no vomiting. [facility] Medical History EVELYN (acute kidney injury) Aortic [...] F 98.1 (more content not included)... Normal [facility] Eosinophil percentageOrdered By: Isaura Shipley on 01-26-2025 Eosinophils/100 WBC (Bld) 0.3 % 0-5 [facility] Epithelial cells.squamous LM Ql (Urine sed)Ordered By: Isaura Shipley on 01-26-2025 Epithelial cells.squamous LM.HPF (Urine sed) [#/Area] 0 /[HPF] 5-10 [facility] Erythrocyte distribution wid th (RBC) [Ratio]Ordered By: Isaura Shipley on 01-26-2025 Erythrocyte distribution width (RBC) [Entitic vol] 47.8 fL High 35.1-43.9 [facility] Erythrocyte distribution wid th ratioOrdered By: Isaura Shipley on 01-26-2025 Erythrocyte distribution width (RBC) [Ratio] 14.5 % 11.6-14.6 [facility] Erythrocyte distribution wid th standard deviationOrdered By: [facility] Shipley on 01-26-2025 Erythrocyte distribution width (RBC) [Ratio] 47.8 fl High 35.1-43.9 [facility] Estimation of creatinine jacobo aranceOrdered By: Isaura Shipley on 01-26-2025 Estimated Creatinine Clearance Calc 34.04 ml/min Low 50-250 [facility] GFR/1.73 sq M.predicted omer g non-blacks MDRD (S/P/Bld) [Vol rate/Area]Ordered By: Isaura Shipley on 01-26-2025 Estimated GFR (MDRD) Non-Af Amer 58 Low >60 [facility] Comment on above: mL/min/1.73m2 CKD-EP I Creatinine Equation (2020) Glomerular filtration rate ( GFR) estimation/1.73 sq m using serum, plasma, or whole bOrdered By: Isaura Shipley on 01-26-2025 GFR/1.73 sq M.predicted among non-blacks MDRD (S/P/Bld) [Vol rate/Area] 58 mL/min/{1.73_m2} Low >60 [facility] Comment on above: mL/min/1.73m2 CKD-EP I Creatinine Equation (2020) Glucose Ql (U)Ordered By: Toshia Shipley on 01-26-2025 Urine Glucose (UA) Normal mg/dl Normal [facility] Hematocrit Auto (Bld) [Volum e fraction]Ordered By: Isaura Shipley on 01-26-2025 Hematocrit (Bld) [Volume fraction] 34.5 % Low 37-47 [facility] Hemoglobin measurementOrdere d By: Isaura Shipley on 01-26-2025 Hemoglobin (Bld) [Mass/Vol] 11.5 g/dL Low 12.0-15.0 [facility] Immature granulocytes/100 WB C Auto (Bld)Ordered By: Isaura Shipley on 01-26-2025 Immature granulocytes/100 WBC (Bld) 0.500 % 0.0-0.9 [facility] Comment on above: IG% - Immature Granu locytes (promyelocytes, myelocytes and metamyelocytes) > 1% indicates that a LEFT SHIFT is Present. Ketones Test strip Ql (U)Ord ered By: Isaura Shipley on 01-26-2025 Ketones Ql (U) Negative Negative [facility] Lactic Acidon 01-26-2025 Lactate [Moles/Vol] 1.4 mmol/L Normal 0.0-2.0 [facility] Comment on above: Order Comment: Y Performed By: #### L 503.6000, L500.2500, L100.0100 #### [facility] [place], [address] Lactic acid measurementOrder ed By: Isaura Shipley on 01-26-2025 Lactate [Moles/Vol] 1.4 mmol/L 0.0-2.0 [facility] Lymphocytes Auto (Unsp spec) [#/Vol]Ordered By: Isaura Shipley on 01-26-2025 Lymphocytes (Bld) [#/Vol] 1.91 10*3/uL 0.83-4.5 1 [facility] Lymphocytes/100 WBC Auto (Un sp spec)Ordered By: Isaura Shipley on 01-26-2025 Lymphocytes/100 WBC (Bld) 14.9 % Low 19-41 [facility] MCV (mean corpuscular volume ) determinationOrdered By: Isaura Shipley on 01-26-2025 MCV (RBC) [Entitic vol] 90.1 fL 81-99 [facility] Mean corpuscular hemoglobin (MCH) determinationOrdered By: Isaura Shipley on 01-26-2025 MCH (RBC) [Entitic mass] 30.0 pg 27.0-32.0 [facility] Mean corpuscular hemoglobin concentration (MCHC) determinationOrdered By: Isaura Shipley on 01-26-2025 MCHC (RBC) [Mass/Vol] 33.3 g/dL 32-36 [facility] Mean platelet volume determi nationOrdered By: Isaura Shipley on 01-26-2025 Platelet mean volume (Bld) [Entitic vol] 10.4 fL 6.2-12.0 [facility] Microscopic analysis of urin e for red blood cells (RBC)Ordered By: Isaura Shipley on 01-26-2025 Microscopic analysis of urine for red blood cells (RBC) 0 SEEN /hpf 0-5 [facility] Urine RBC 0 SEEN /hpf 0-5 [facility] Monocyte percentageOrdered B y: Isaura Shipley on 01-26-2025 Monocytes/100 WBC (Bld) 8.7 % 0-10 [facility] Mucus LM Ql (Urine sed)Order ed By: Isaura Shipley on 01-26-2025 Mucus Ql (Urine sed) 0 SEEN /hpf [facility] Neutrophil percentageOrdered By: Isaura Shipley on 01-26-2025 Neutrophils/100 WBC (Bld) 75.5 % High 47-70 [facility] Nitrite Test strip Ql (U)Ord ered By: Isaura Shipley on 01-26-2025 Nitrite Ql (U) Negative Negative [facility] Nucleated red blood cell per centageOrdered By: Isaura Shipley on 01-26-2025 Nucleated RBC/100 WBC (Bld) [Ratio] 0 % 0-5 [facility] Platelet countOrdered By: Toshia Shipley on 01-26-2025 Platelets (Bld) [#/Vol] 270 10*3/uL 150-450 [facility] Potassium (Unsp spec) [Mass/ Vol]Ordered By: Isaura Shipley on 01-26-2025 Potassium [Moles/Vol] 3.6 mmol/L 3.3-5.1 [facility] Potassium measurement (mass/ volume)Ordered By: Isaura Shipley on 01-26-2025 Potassium (Unsp spec) [Mass/Vol] 3.6 mmol/L 3.3-5.1 [facility] Protein Test strip Ql (U)Ord ered By: Isaura Shipley on 01-26-2025 Protein Ql (U) 15 mg/dl High Negative [facility] RBC Auto (Bld) [#/Vol]Ordere d By: Isaura Shipley on 01-26-2025 RBC (Bld) [#/Vol] 3.83 10*6/uL Low 4.2-5.4 [facility] Serum creatinine measurement (mass/volume)Ordered By: Isaura Shipley on 01-26-2025 Creatinine [Mass/Vol] 1.01 mg/dL 0.70-1.20 [facility] Serum glucose measurement (m ass/volume)Ordered By: Isaura Shipley on 01-26-2025 Glucose [Mass/Vol] 116 mg/dL High 70-99 [facility] Serum or plasma calcium nikunj urement (mass/volume)Ordered By: Isaura Shipley on 01-26-2025 Calcium [Mass/Vol] 9.5 mg/dL 7.6-11.0 [facility] Serum or plasma urea nitroge n measurement (mass/volume)Ordered By: Isaura Shipley on 01-26-2025 Urea nitrogen [Mass/Vol] 20 mg/dL High 4-19 [facility] Sodium levelOrdered By: Aicha Shipley on 01-26-2025 Sodium [Moles/Vol] 135 mmol/L 133-145 [facility] Squamous epithelial cells de tection in urine sediment by light microscopyOrdered By: Isaura Shipley on 01-26-2025 Epithelial cells.squamous LM Ql (Urine sed) 0 SEEN /hpf 5-10 [facility] Urinalysis, Completeon 01-26 BACTERIA 1+ /hpf Normal None Seen [facility] Comment on above: Order Comment: CLEAN CATCH Performed By: #### L 400.0001 #### [facility] [address] [place], [address] WBC 0-5 SEEN Normal 0-5 [facility] Comment on above: Order Comment: CLEAN CATCH Performed By: #### L 400.0001 #### [facility] [address] [place], [address] EPI,SQUAMOUS 0 SEEN Normal 5-10 [facility] Comment on above: Order Comment: CLEAN CATCH Performed By: #### L 400.0001 #### [facility] [address] [place], [address] Mucus Ql (Urine sed) 0 SEEN Normal [facility] Comment on above: Order Comment: CLEAN CATCH Performed By: #### L 400.0001 #### [facility] [address] [place], [address] RBC 0 SEEN Normal [address] [place] [address] Comment on above: Order Comment: CLEAN CATCH Performed By: #### L 400.0001 #### [facility] [address] [place], [address] Urine blood detectionOrdered By: Isaura Shipley on 01-26-2025 Urine Occult Blood Negative Negative [facility] Urine clarityOrdered By: Rem us Shipley on 01-26-2025 Clarity (U) Sl. Cloudy Clear [facility] Urine color determinationOrd ered By: Isaura Shipley on 01-26-2025 Color (U) Yellow Yellow [facility] Urine glucose detectionOrder ed By: Isaura Shipley on 01-26-2025 Glucose Ql (U) Normal mg/dl Normal [facility] Urine leukocyte esterase det ection by dipstickOrdered By: Isaura Shipley on 01-26-2025 Leukocyte esterase Test strip Ql (U) 25 /ul High Negative [facility] Urine pHOrdered By: Isaura Un gur on 01-26-2025 pH (U) 8.0 [pH] 5.0 - 8.0 [facility] Urine sediment bacteria coun t by microscopy (number/high power field)Ordered By: Isaura Shipley on 01-26-2025 Bacteria LM.HPF (Urine sed) [#/Area] 1 /[HPF] None Seen [facility] Urine specific gravity measu rementOrdered By: Remus Shipley on 01-26-2025 Specific gravity (U) [Rel density] 1.010 1.002-1.03 0 [facility] Urine urobilinogen measureme ntOrdered By: Idalmisus Quinten on 01-26-2025 Urobilinogen Ql (U) Normal mg/dl Normal [facility] Urobilinogen Ql (U)Ordered B y: Remus Quinten on 01-26-2025 Urine Urobilinogen Normal mg/dl Normal [facility] White blood cell (WBC) count Ordered By: Isaura Shipley on 01-26-2025 WBC (Bld) [#/Vol] 12.8 10*3/uL High 4.4-11.0 [facility] White blood cell countOrdere d By: Remus Quinten on 01-26-2025 Urine WBC 0-5 SEEN /hpf 0-5 [facility] White blood cell count 0-5 SEEN /hpf 0-5 [facility] CNOVon 09-30-2024 CNOV Office Visit (JORGEWS ) -------- LAURENCE KOROMA ([id number]) 1950 F Date Time Provider Department 09/30/24 10:20 AM KATIE CHAUDHARI During your visit today, we recorded the following information about you: Pulse Respiration Blood pressure Weight 90/minute 14/minute 135/71 45.4 kg Katie Chaudhari, WAYLON.CAMPGROUND ATTENDANT 09/30/2024 10:32 AM Signed Chief Complaint Patient [...] tongue n (more content not included)... [facility] LAURENCE KOR[facility] ([id number]) 1950 F Date Time Provider Department 09/29/[address] [facility] During your visit today, we recorded the [...] Status:Closed by SOL LOWERY on 09/30/24 Normal [facility] CNPN Telephone (FAMPWS) -------- LAURENCE KOROMA ([id number]) 1950 F Date Time Provider Department 09/29/24 FABIAN MCMULLEN During your visit today, we recorded the [...] Status:Closed by FRANK SHARPE on 09/29/24 Normal [facility] BD DXA - AXIAL SKELETONon BD DXA - AXIAL SKELETON * * *Final Repor t* * * DATE OF EXAM: Sep 26 2024 1:24PM WR 0804 - BD DXA - AXIAL SKELETON / PROCEDURE REASON: Age-related osteoporosis without current pathological fracture * * * * Physician Interpretation * * * * EXAMINATION: DXA BONE DENSITOMETRY BD DXA - AXIAL SKELETON, BD DXA TRABECLR BONE SCORE (TBS) PATIENT DEMOGRAPHICS: Age: 73 years, Gender: Female SCANNER INFORMATION: DXA Model: Paxera - McAfee C [id number] Date Scanned: 09/26/2024 1:24 PM CLINICAL HISTORY: [...] FOR MORE INFORMATION ABOUT DIAGNOSIS AND TREATMENT: [facility] for Osteoporosis and Metabolic Bone Disease:? www.ccf.org/arthritis/os ariel National Osteoporosis Foundation:? www.nof.org International Society of Clinical Densitometry www.iscd.org Mud Temperer: APRIL Transcribe Date/Time: Sep 29 2024 6:32A Dictated by : DM SINGLETON MD This examination was interpreted and the report reviewed and electronically signed by: DM SINGLETON MD on Sep 29 2024 6:34AM EST [id number] -[id number] Normal [facility] BD DXA TRABECLR BONE SCORE ( TBS)on 09-26-2024 BD DXA TRABECLR BONE SCORE (TBS) * * *Final Report* * * DATE OF EXAM: Sep 26 2024 1:24PM [facility] 0801 - BD DXA TRABECLR BONE SCORE (TBS) / PROCEDURE REASON: Age-related osteoporosis without current pathological fracture * * * * Physician Interpretation * * * * EXAMINATION: DXA BONE DENSITOMETRY BD DXA - AXIAL SKELETON, BD DXA TRABECLR BONE SCORE (TBS) PATIENT DEMOGRAPHICS: Age: 73 years, Gender: Female SCANNER INFORMATION: DXA Model: Paxera - McAfee C 57627 Date Scanned: 09/26/2024 1:24 PM CLINICAL HISTORY: [...] FOR MORE INFORMATION ABOUT DIAGNOSIS AND TREATMENT: [facility] for Osteoporosis and Metabolic Bone Disease:? www.ccf.org/arthritis/os ariel National Osteoporosis Foundation:? www.nof.org International Society of Clinical Densitometry www.iscd.org Mud Temperer: APRIL Transcribe Date/Time: Sep 29 2024 6:32A Dictated by : DM SINGLETON MD This examination was interpreted and the report reviewed and electronically signed by: DM SINGLETON MD on Sep 29 2024 6:34AM EST [id number] -2.7 Normal [facility] CNOVon 09-22-2024 CNOV Office Visit (FAMPWS ) -------- LAURENCE KOORMA ([id number]) 1950 F Date Time Provider Department 09/22/24 11:40 AM [facility] During your visit today, we recorded [...] Health Mainte (more content not included)... Normal [facility] LAURENCE KOROMA ([id number]) 1950 F Date Time Provider Department 09/09/[address] [facility] During your visit today, we recorded the [...] Status:Closed by SOL LOWERY on 09/09/24 Normal [facility] 25(OH)D3 [facility] 2023 25-hydroxyvitamin D3 [Mass/Vol] 84.6 ng/mL High 31.0-80.0 [facility] Comment on above: Order Comment: Speci men Type: BLOOD SPECIMENOrdering Facility: [facility] Address: [address] [place] [address] Result Comment: Clas sification of 25 [place] Vitamin D status: Deficiency/Insufficiency: < or = 30 ng/ml. Sufficiency/Optimal Levels: 31-80 ng/mL Toxicity: > 100 ng/mL. Test performed by chemiluminescent immunoassay. 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 When she checks her [...] 86 Tem (more content not included)... Normal [facility] HAV IgM Ser Qlon 09-08-2024 HAV IgM Ql (S) Negative Normal Negative [facility] Comment on above: Order Comment: Speci men Type: BLOOD SPECIMENOrdering Facility: [facility] Address: [address] [place] [address] Result Comment: No e vidence of recent infection with Hepatitis A virus. Performed By: #### 3 1204-1, 22746-5, 5194-12 ####[facility] [id number] [place] [address] [place] HBV core IgM Ser Qlon 2023 HBV core IgM Ql (S) Negative Normal Negative [facility] Comment on above: Order Comment: Speci men Type: BLOOD SPECIMENOrdering Facility: [facility] Address: [address] [place] [address] Result Comment: No e vidence of recent infection with Hepatitis B virus. Should recent infection be suspected, repeat testing may be considered 3-4 weeks after this draw. Performed By: #### 3 1204-1, 86588-4, 5194-12 ####[facility] [id number] [place] [address] [place] HBV surface Ag Ser Qlon 08-16 HBV surface Ag Ql (S) Negative Normal Negative [facility] Comment on above: Order Comment: Speci men Type: BLOOD SPECIMENOrdering Facility: [facility] Address: [address] [place] [address] Performed By: #### 3 1204-1, 78746-4, 5194-12 ####[facility] [id number] [place] [address] [place] HCV RNA BRITTANI+probe Qnon 09-08 HCV RNA BRITTANI+probe Ql Not detected Normal Not detected [facility] Comment on above: Order Comment: Speci men Type: BLOOD SPECIMENOrdering Facility: [facility] Address: [address] [place] [address] Performed By: #### 1 1011-4 ####[facility]IA [id number] [place] [address] [place] Hepatic function 2000 panelo n 09-08-2024 Albumin [Mass/Vol] 4.3 g/dL Normal 3.9-4.9 [facility] Comment on above: Order Comment: Speci men Type: BLOOD SPECIMENOrdering Facility: [facility] Address: [address] [place] [address] Performed By: #### 2 4325-3 ####[facility]IA [id number] [place] [address] [place] ALP [Catalytic activity/Vol] 78 U/L Normal 34-123 [facility] Comment on above: Order Comment: Speci men Type: BLOOD SPECIMENOrdering Facility: [facility] Address: [address] [place] [address] Performed By: #### 2 4325-3 ####[facility]IA [id number] [place] [address] [place] ALT [Catalytic activity/Vol] 15 U/L Normal 7-38 [facility] Comment on above: Order Comment: Speci men Type: BLOOD SPECIMENOrdering Facility: [facility] Address: [address] [place] [address] Performed By: #### 2 4325-3 ####[facility]IA [id number] [place] [address] [place] AST [Catalytic activity/Vol] 29 U/L Normal 13-35 [facility] Comment on above: Order Comment: Speci men Type: BLOOD SPECIMENOrdering Facility: [facility] Address: [address] [place] [address] Performed By: #### 2 4325-3 ####[facility] [id number] [place] [address] [place] Bilirubin [Mass/Vol] 0.3 mg/dL Normal 0.2-1.3 [facility] Comment on above: Order Comment: Speci men Type: BLOOD SPECIMENOrdering Facility: [facility] Address: [address] [place] [address] Performed By: #### 2 4325-3 ####[facility]IA [id number] [place] [address] [place] Bilirubin.conjugated [Mass/Vol] mg/dL Normal <0.2 [facility] Comment on above: Order Comment: Speci men Type: BLOOD SPECIMENOrdering Facility: [facility] Address: [address] [place] [address] Performed By: #### 2 4325-3 ####[facility] LABIA [id number] [place] [address] [place] Protein [Mass/Vol] 7.3 g/dL Normal 6.3-8.0 [facility] Comment on above: Order Comment: Speci men Type: BLOOD SPECIMENOrdering Facility: [facility] Address: [address] [place] [address] Performed By: #### 2 4325-3 ####[facility]IA [id number] [place] [address] [place] CNOVon 08-25-2024 CNOV Office Visit (FAMPWS ) -------- LAURENCE KOROMA ([id number]) 1950 F Date Time Provider Department 08/25/24 11:40 AM CONSTANCE KLEIN During your visit today, we recorded the following information about you: Pulse Blood pressure Weight 97/minute 118/62 45.5 kg Laurence Steele LPN 08/25/2024 11:34 AM Signed 08/25/2024: Home BP Cuff Validated. Home BP: 119/49 Office BP: 118/62 Cnostance Klein PA-C 08/25/2024 12:17 PM Signed Chief [...] due on (more content not included)... Normal [facility] CNOVon 08-08-2024 CNOV Office Visit (FAMPWS ) -------- LAURENCE KOROMA ([id number]) 1950 F Date Time Provider Department 08/08/24 11:40 AM FABIAN MCMULLEN During your visit today, we recorded the [...] - General (Family Medicine) Dr. Wells: Vascular [employer] CARTOONIST Optho Medical/Family history review Reviewed and updated [...] has subs (more content not included)... Normal [facility] XR Chest PA and Lateralon IMPRESSION: No acute radiographic abnormality. Mud Temperer: PSCB Transcribe Date/Time: Dec 23 2023 12:36A Dictated by : ROBERTO ASH MD This examination was interpreted and the report reviewed and electronically signed by: ROBERTO ASH MD on Dec 23 2023 12:36AM [facility] DIVISION OF RADIOLOGY * * *Final Report* [...] soft tissues: Unremarkable. DIVISION OF RADIOLOGY Provider, [facility] [place] - 12/23/2023 * * *Final Report* * [...] Unremarkable. IMPRESSION IMPRESSION: No acute radiographic abnormality. Mud Temperer: PSCB Transcribe Date/Time: Dec 23 2023 12:36A Dictated by : ROBERTO ASH MD This examination was interpreted and the report reviewed and electronically signed by: ROBERTO ASH MD on Dec 23 2023 12:36AM EST [facility] XR Chest PA and LateralOrder ed By: Cc Provider on 12-23-2023 [facility] XR Chest PA and Lateralon Radiology Study observation (narrative) [facility] Absolute lymphocyte countOrd ered By: Christian Trejo on 11-27-2023 Lymphocytes Auto (Unsp spec) [#/Vol] 1.91 10*3/uL 0.83-4.51 [facility] Automated lymphocyte count a s percentage of total leukocytesOrdered By: Christian Trejo on 11-27-2023 Lymphocytes/100 WBC Auto (Unsp spec) 12.7 % 19-41 [facility] Basophil percentageOrdered B y: Christian Trejo on 11-27-2023 Basophils/100 WBC (Bld) 0.2 % 0-1 [facility] Bilirubin [Mass/Vol] 0.40 mg/dL 0.20-1.00 [facility] Comment on above: For patients on eltr ombopag therapy, use of Dimension [place] TBIL is not recommended. Chloride [Moles/Vol] 106 mmol/L 98-107 [facility] Eosinophils/100 WBC (Bld) 0.8 % 0-5 [facility] Glucose [Mass/Vol] 151 mg/dL 74-106 [facility] Comment on above: Fasting Glucose resu lt greater than or equal to 126 mg/dL suggests DIABETES MELLITUS per A.D.A. criteria. Hemoglobin (Bld) [Mass/Vol] 13.3 g/dL 12.0-15.0 [facility] Monocytes/100 WBC (Bld) 6.9 % 0-10 [facility] Neutrophils (Bld) [#/Vol] 11.8 10*3/uL 2.0-7.7 [facility] Neutrophils/100 WBC (Bld) 78.5 % 47-70 [facility] Potassium [Moles/Vol] 3.2 mmol/L 3.5-5.1 [facility] Protein [Mass/Vol] 8.2 g/dL 6.4-8.2 [facility] Sodium [Moles/Vol] 143 mmol/L 136-145 [facility] WBC (Bld) [#/Vol] 15.1 10*3/uL 4.4-11.0 [facility] Determination of erythrocyte mean corpuscular volume (MCV)Ordered By: Christian Trejo on 11-27-2023 MCV (RBC) [Entitic vol] 91.9 fL 81-99 [facility] Erythrocyte distribution wid th ratioOrdered By: Christian Trejo on 11-27-2023 Erythrocyte distribution width (RBC) [Ratio] 13.9 % 11.6-14.6 [facility] Erythrocyte distribution wid th standard deviationOrdered By: Christian Trejo on 11-27-2023 Erythrocyte distribution width (RBC) [Entitic vol] 47.4 fL 35.1-43.9 [facility] Hematocrit Auto (Bld) [Volum e fraction]Ordered By: Christian Trejo on 11-27-2023 Hematocrit (Bld) [Volume fraction] 40.7 % 37-47 [facility] Immature granulocytes/100 WB C Auto (Bld)Ordered By: Christian Trejo on 11-27-2023 Immature granulocytes/100 WBC (Bld) 0.900 % 0.0-0.9 [facility] Comment on above: IG% - Immature Granu locytes (promyelocytes, myelocytes and metamyelocytes) > 1% indicates that a LEFT SHIFT is Present. Laboratory - Chemistry and C hemistry - challengeOrdered By: Christian Trejo on 11-27-2023 Albumin/Globulin [Mass ratio] 1.0 {ratio} 0.9-2.4 [facility] ALP [Catalytic activity/Vol] 92 U/L 45-117 [facility] ALT [Catalytic activity/Vol] 17 U/L 13-56 [facility] CO2 [Moles/Vol] 30.0 mmol/L 21.0-32.0 [facility] Globulin (S) [Mass/Vol] 4.1 g/dL 2.2-4.2 [facility] Urea nitrogen/Creatinine [Mass ratio] 25.9 mg/mg 10-20 [facility] - Hematology and Cell countsOrdered By: Christian Trejo on 11-27-2023 MCH (RBC) [Entitic mass] 30.0 pg 27.0-32.0 [facility] MCHC (RBC) [Mass/Vol] 32.7 g/dL 32-36 [facility] Nucleated RBC/100 WBC (Bld) [Ratio] 0 % 0-5 [facility] Platelet mean volume (Bld) [Entitic vol] 9.7 fL 6.2-12.0 [facility] Platelets (Bld) [#/Vol] 299 10*3/uL 150-450 [facility] No Panel InformationOrdered By: Christian Trejo on 11-27-2023 Estimated GFR (MDRD) Amer 61 mL/min >60 [facility] Comment on above: GFR Calc Estimated GFR (MDRD) Non-Af Amer 50 mL/min >60 [facility] Comment on above: Non- GFR Calc RBC Auto (Bld) [#/Vol]Ordere d By: Christian Trejo on 11-27-2023 RBC (Bld) [#/Vol] 4.43 10*6/uL 4.2-5.4 [facility] Serum or plasma calcium nikunj urement (mass/volume)Ordered By: Christian Trejo on 11-27-2023 Calcium [Mass/Vol] 11.2 mg/dL 8.5-10.1 [facility] Serum or plasma creatinine m easurement (mass/volume)Ordered By: Christian Trejo on 11-27-2023 Creatinine [Mass/Vol] 1.12 mg/dL 0.55-1.02 [facility] Comment on above: The validity of the calculated GFR & GFRAA in patients over 70 years has not been determined. Clinical correlation is essential. Serum or plasma urea nitroge n measurement (mass/volume)Ordered By: Christian Trejo on 11-27-2023 Urea nitrogen [Mass/Vol] 29 mg/dL 7-18 [facility] Thin prep Papanicolaou smear with manual screeningOrdered By: Christian Trejo on 11-27-2023 Thin prep Papanicolaou smear with manual screening 4.1 g/dL 3.2-5.0 [facility] Thin prep Papanicolaou smear with manual screening 20 U/L 15-37 [facility] Thin prep Papanicolaou smear with manual screening 7 5-15 [facility] XR CHEST 2V FRONTAL/LATon [facility] XR Chest PA and Lateralon IMPRESSION: No acute radiographic abnormality. Mud Temperer: APRIL Transcribe Date/Time: Aug 03 2023 12:22P Dictated by : JENNIFER VILLANUEVA DO This examination was interpreted and the report reviewed and electronically signed by: JENNIFER VILLANUEVA DO on Aug 03 2023 12:25PM [facility] DIVISION OF RADIOLOGY * * *Final Report* [...] the thoracic spine. DIVISION OF RADIOLOGY Provider, Mary Joshua [facility] - 08/03/2023 * * *Final Report* [...] spine. IMPRESSION IMPRESSION: No acute radiographic abnormality. Mud Temperer: PSCB Transcribe Date/Time: Aug 03 2023 12:22P Dictated by : JENNIFER VILLANUEVA DO This examination was interpreted and the report reviewed and electronically signed by: JENNIFER VILLANUEVA DO on Aug 03 2023 12:25PM EST [facility] Radiology Study observation (narrative) Yoselin chase [facility] XR Chest PA and LateralOrder ed By: Ccf Provider on 08-03-2023 [facility] Absolute lymphocyte countOrd ered By: Caitlin Cadena on 05-01-2023 Lymphocytes Auto (Unsp spec) [#/Vol] 2.31 10*3/uL 0.83-4.51 [facility] Basophil percentageOrdered B y: Caitlin Cadena on 05-01-2023 Basophils/100 WBC (Bld) 0.5 % 0-1 [facility] Chloride [Moles/Vol] 106 mmol/L 98-107 [facility] Eosin[facility]/100 WBC (Bld) 5.9 % 0-5 [facility] Glucose [Mass/Vol] 85 mg/dL 74-106 [facility] Neutrophils (Bld) [#/Vol] 3.0 10*3/uL 2.0-7.7 [facility] Neutrophils/100 WBC (Bld) 48.4 % 47-70 [facility] Potassium [Moles/Vol] 3.9 mmol/L 3.5-5.1 [facility] Sodium [Moles/Vol] 140 mmol/L 136-145 [facility] WBC (Bld) [#/Vol] 6.2 10*3/uL 4.4-11.0 [facility] Blood erythrocytes count (nu mber/volume)Ordered By: Caitlin Cadena on 05-01-2023 RBC (Bld) [#/Vol] 4.03 10*6/uL 4.2-5.4 [facility] Blood hemoglobin measurement (mass/volume)Ordered By: Caitlin Cadena on 05-01-2023 Hemoglobin (Bld) [Mass/Vol] 12.4 g/dL 12.0-15.0 [facility] Blood lymphocytes/100 leukoc ytesOrdered By: Caitlin Cadena on 05-01-2023 Lymphocytes/100 WBC (Bld) 37.1 % 19-41 [facility] Blood monocytes/100 leukocyt esOrdered By: Caitlin Cadena on 05-01-2023 Monocytes/100 WBC (Bld) 7.6 % 0-10 [facility] Blood platelet mean volumeOr dered By: Caitlin Cadena on 05-01-2023 Platelet mean volume (Bld) [Entitic vol] 10.8 fL 6.2-12.0 [facility] Determination of erythrocyte mean corpuscular volume (MCV)Ordered By: Caitlin aCdena on 05-01-2023 MCV (RBC) [Entitic vol] 90.6 fL 81-99 [facility] Hematocrit Auto (Bld) [Volum e fraction]Ordered By: Caitlin Cadena on 05-01-2023 Hematocrit (Bld) [Volume fraction] 36.5 % 37-47 [facility] - Chemistry and C hemistry - challengeOrdered By: Caitlin Cadena on 05-01-2023 CO2 [Moles/Vol] 30.0 mmol/L 21.0-32.0 [facility] Urea nitrogen/Creatinine [Mass ratio] 8.8 mg/mg 10-20 [facility] - Hematology and Cell countsOrdered By: Caitlin Cadena on 05-01-2023 Erythrocyte distribution width (RBC) [Entitic vol] 44.3 fL 35.1-43.9 [facility] Erythrocyte distribution width (RBC) [Ratio] 13.2 % 11.6-14.6 [facility] Immature granulocytes/100 WBC (Bld) 0.500 % 0.0-0.9 [facility] Comment on above: IG% - Immature Granu locytes (promyelocytes, myelocytes and metamyelocytes) > 1% indicates that a LEFT SHIFT is Present. MCH (RBC) [Entitic mass] 30.8 pg 27.0-32.0 [facility] Nucleated RBC/100 WBC (Bld) [Ratio] 0 % 0-5 [facility] MCHC Auto (RBC) [Mass/Vol]Or dered By: Caitlin Cadena on 05-01-2023 MCHC (RBC) [Mass/Vol] 34.0 g/dL 32-36 [facility] No Panel InformationOrdered By: Caitlin Cadena on 05-01-2023 Estimated Creatinine Clearance Calc 33.19 ml/min [facility] Estimated GFR (MDRD) Amer 109 mL/min >60 [facility] Comment on above: GFR Calc Estimated GFR (MDRD) Non-Af Amer 90 mL/min >60 [facility] Comment on above: Non- GFR Calc Platelets bldOrdered By: Lolis Cadena on 05-01-2023 Platelets (Bld) [#/Vol] 306 10*3/uL 150-450 [facility] Serum or plasma calcium nikunj urement (mass/volume)Ordered By: Caitlin Cadena on 05-01-2023 Calcium [Mass/Vol] 9.8 mg/dL 8.5-10.1 [facility] Serum or plasma creatinine m easurement (mass/volume)Ordered By: Caitlin Cadena on 05-01-2023 Creatinine [Mass/Vol] 0.68 mg/dL 0.55-1.02 [facility] Comment on above: The validity of the calculated GFR & GFRAA in patients over 70 years has not been determined. Clinical correlation is essential. Serum or plasma urea nitroge n measurement (mass/volume)Ordered By: Caitlin Cadena on 05-01-2023 Urea nitrogen [Mass/Vol] 6 mg/dL 7-18 [facility] Thin prep Papanicolaou smear with manual screeningOrdered By: Caitlin Cadena on 05-01-2023 Thin prep Papanicolaou smear with manual screening 4 5-15 [facility] Basophil percentageOrdered B y: Parth Guan on 04-28-2023 Basophil percentage 1.2 mg/dL 2.5-4.9 [facility] C. difficile Ql (Stl)Ordered By: Kaye Gardner on 04-28-2023 C. difficile [facility] Antigen & Toxins Toxigenic C. difficile [facility] Clostridium difficile detect ion by polymerase chain reactionOrdered By: Kaye Gardner on 04-28-2023 C. difficile DNA BRITTANI+probe Ql (Unsp spec) [facility] Laboratory - Chemistry and C hemistry - challengeOrdered By: Parth Guan on 04-28-2023 Magnesium [Mass/Vol] 1.9 mg/dL 1.6-2.6 [facility] Ova and parasitesOrdered By: Kaye Gardner on 04-28-2023 Ova and parasites identified LM Nom (Unsp spec) [facility] Stool enteric pathogen panel by probe and target amplification methodOrdered By: Kaye Gardner on 04-28-2023 Gastrointestinal pathogens panel BRITTANI+probe (Stl) [facility] Stool lactoferrin detection by immunoassayOrdered By: Kaye Gardner on 04-28-2023 Lactoferrin IA Ql (Stl) [facility] Absolute lymphocyte countOrd ered By: Kaye Gardner on 04-27-2023 Lymphocytes Auto (Unsp spec) [#/Vol] 2.54 10*3/uL 0.83-4.51 [facility] Basophil percentageOrdered B y: Kaye Gardner on 04-27-2023 Basophils/100 WBC (Bld) 0.4 % 0-1 [facility] Bilirubin [Mass/Vol] 0.50 mg/dL 0.20-1.00 [facility] Comment on above: For patients on eltr ombopag therapy, use of Dimension [place] TBIL is not recommended. Chloride [Moles/Vol] 101 mmol/L 98-107 [facility] Eosinophils/100 WBC (Bld) 0.1 % 0-5 [facility] Glucose [Mass/Vol] 70 mg/dL 74-106 [facility] Neutrophils (Bld) [#/Vol] 12.7 10*3/uL 2.0-7.7 [facility] Neutrophils/100 WBC (Bld) 74.8 % 47-70 [facility] Potassium [Moles/Vol] 3.7 mmol/L 3.5-5.1 [facility] Protein [Mass/Vol] 6.6 g/dL 6.4-8.2 [facility] Sodium [Moles/Vol] 133 mmol/L 136-145 [facility] WBC (Bld) [#/Vol] 17.0 10*3/uL 4.4-11.0 [facility] Blood erythrocytes count (nu mber/volume)Ordered By: Kaye Gardner on 04-27-2023 RBC (Bld) [#/Vol] 4.12 10*6/uL 4.2-5.4 [facility] Blood hemoglobin measurement (mass/volume)Ordered By: Kaye Gardner on 04-27-2023 Hemoglobin (Bld) [Mass/Vol] 12.4 g/dL 12.0-15.0 [facility] Blood lymphocytes/100 leukoc ytesOrdered By: Kaye Gardner on 04-27-2023 Lymphocytes/100 WBC (Bld) 15.0 % 19-41 [facility] Blood manual differential co mment interpretation (narrative result)Ordered By: Kaye Gardner on 04-27-2023 Manual differential comment Leo (Bld) [Interp] SCANNED [facility] Comment on above: MONOCYTOSIS Blood monocytes/100 leukocyt esOrdered By: Kaye Gardner on 04-27-2023 Monocytes/100 WBC (Bld) 9.2 % 0-10 [facility] Blood platelet mean volumeOr dered By: Kaye Gardner on 04-27-2023 Platelet mean volume (Bld) [Entitic vol] 10.2 fL 6.2-12.0 [facility] Determination of erythrocyte mean corpuscular volume (MCV)Ordered By: Kaye Gardner on 04-27-2023 MCV (RBC) [Entitic vol] 93.2 fL 81-99 [facility] Direct bilirubinOrdered By: Kaye Gardner on 04-27-2023 Bilirubin.direct [Mass/Vol] 0.14 mg/dL 0.00-0.30 [facility] Hematocrit Auto (Bld) [Volum e fraction]Ordered By: Kaye Gardner on 04-27-2023 Hematocrit (Bld) [Volume fraction] 38.4 % 37-47 [facility] Laboratory - Chemistry and C hemistry - challengeOrdered By: Kaye Gardner on 04-27-2023 ALP [Catalytic activity/Vol] 72 U/L 45-117 [facility] ALT [Catalytic activity/Vol] 24 U/L 13-56 [facility] CO2 [Moles/Vol] 17.0 mmol/L 21.0-32.0 [facility] Globulin (S) [Mass/Vol] 3.7 g/dL 2.2-4.2 [facility] Urea nitrogen/Creatinine [Mass ratio] 10.8 mg/mg 10-20 [facility] Laboratory - Chemistry and C hemistry - challengeOrdered By: Tavon Rodriguez on 04-27-2023 Lipase [Catalytic activity/Vol] 18 U/L 13-75 [facility] Comment on above: Please note:LIPASE r evised reference range effective 23. New Lipase methodology. Expected to produce lower values than the previous assay method. NEW Reference Range: 13 - 75 U/L Laboratory - Hematology and Cell countsOrdered By: Kaye Gardner on 04-27-2023 Erythrocyte distribution width (RBC) [Entitic vol] 45.3 fL 35.1-43.9 [facility] Erythrocyte distribution width (RBC) [Ratio] 13.2 % 11.6-14.6 [facility] Immature granulocytes/100 WBC (Bld) 0.500 % 0.0-0.9 [facility] Comment on above: IG% - Immature Granu locytes (promyelocytes, myelocytes and metamyelocytes) > 1% indicates that a LEFT SHIFT is Present. MCH (RBC) [Entitic mass] 30.1 pg 27.0-32.0 [facility] Nucleated RBC/100 WBC (Bld) [Ratio] 0 % 0-5 [facility] ([facility]) [Mass/Vol]Or dered By: Kaye Gardner on 04-27-2023 MCHC (RBC) [Mass/Vol] 32.3 g/dL 32-36 [facility] No Panel InformationOrdered By: Kaye Gardner on 04-27-2023 Estimated Creatinine Clearance Calc 29.22 ml/min [facility] Estimated GFR (MDRD) Amer 56 mL/min >60 [facility] Comment on above: GFR Calc Estimated GFR (MDRD) Non-Af Amer 47 mL/min >60 [facility] Comment on above: Non- GFR Calc No Panel InformationOrdered By: Tavon Rodriguez on 04-27-2023 Troponin I High Sensitivity 6 pg/mL 3.0-54.0 [facility] Comment on above: Please Note: New Joanne t Units and Gender Specific Reference Ranges. For more information see Policy Stat Procedure [place] High Sensitivity Troponin (TNIH) and attachments. Platelets bldOrdered By: Nhung Gardner on 04-27-2023 Platelets (Bld) [#/Vol] 266 10*3/uL 150-450 [facility] Review by pathologistOrdered By: Kaye Gardner on 04-27-2023 Pathologist review Leo (Unsp spec) [Interp] Anuja coley [facility] Pathologist review Leo (Unsp spec) [Interp] Reviewed [facility] Comment on above: Previous reported re sult: Anuja coley Edited by: THEA on 04/27/23:1050Neutrophilic leukocytosis.Clinical correlation necessary.Javed Dasilva M.D. 04/27/23 AMENDED REPORT 04/27/23 1050 PATH REV previously reported as: Anuja coley Serum or plasma albumin nikunj urement (mass/volume)Ordered By: Kaye Gardner on 04-27-2023 Albumin [Mass/Vol] 2.9 g/dL 3.2-5.0 [facility] Serum or plasma calcium nikunj urement (mass/volume)Ordered By: Kaye Gardner on 04-27-2023 Calcium [Mass/Vol] 8.9 mg/dL 8.5-10.1 [facility] Serum or plasma creatinine m easurement (mass/volume)Ordered By: Kaye Gardner on 04-27-2023 Creatinine [Mass/Vol] 1.20 mg/dL 0.55-1.02 [facility] Comment on above: The validity of the calculated GFR & GFRAA in patients over 70 years has not been determined. Clinical correlation is essential. Serum or plasma urea nitroge n measurement (mass/volume)Ordered By: Kaye Gardner on 04-27-2023 Urea nitrogen [Mass/Vol] 13 mg/dL 7-18 [facility] Thin prep Papanicolaou smear with manual screeningOrdered By: Kaye Gardner on 04-27-2023 Thin prep Papanicolaou smear with manual screening 27 U/L 15-37 [facility] Thin prep Papanicolaou smear with manual screening 15 5-15 [facility] Absolute lymphocyte countOrd ered By: Keenan Bowser on 04-19-2023 Lymphocytes Auto (Unsp spec) [#/Vol] 1.90 10*3/uL 0.83-4.51 [facility] Basophil percentageOrdered B y: Keenan Bowser on 04-19-2023 Basophil percentage 0-5 SEEN /hpf 0-5 [facility] Basophils/100 WBC (Bld) 0.2 % 0-1 [facility] Bilirubin [Mass/Vol] 0.70 mg/dL 0.20-1.00 [facility] Comment on above: For patients on eltr ombopag therapy, use of Dimension [place] TBIL is not recommended. Chloride [Moles/Vol] 104 mmol/L 98-107 [facility] Eosinophils/100 WBC (Bld) 0.1 % 0-5 [facility] Glucose [Mass/Vol] 150 mg/dL 74-106 [facility] Comment on above: Fasting Glucose resu lt greater than or equal to 126 mg/dL suggests DIABETES MELLITUS per A.D.A. criteria. Neutrophils (Bld) [#/Vol] 11.5 10*3/uL 2.0-7.7 [facility] Neutrophils/100 WBC (Bld) 77.3 % 47-70 [facility] Potassium [Moles/Vol] 3.9 mmol/L 3.5-5.1 [facility] Protein [Mass/Vol] 7.2 g/dL 6.4-8.2 [facility] Sodium [Moles/Vol] 136 mmol/L 136-145 [facility] WBC (Bld) [#/Vol] 14.9 10*3/uL 4.4-11.0 [facility] Bilirubin Test strip Ql (U)O rdered By: Keenan Bowser on 04-19-2023 Bilirubin Ql (U) Negative Negative [facility] Blood erythrocytes count (nu mber/volume)Ordered By: Keenan Bowser on 04-19-2023 RBC (Bld) [#/Vol] 4.14 10*6/uL 4.2-5.4 [facility] Blood hemoglobin measurement (mass/volume)Ordered By: Keenan Bowser on 04-19-2023 Hemoglobin (Bld) [Mass/Vol] 12.6 g/dL 12.0-15.0 [facility] Blood lymphocytes/100 leukoc ytesOrdered By: Keenan Bowser on 04-19-2023 Lymphocytes/100 WBC (Bld) 12.8 % 19-41 [facility] Blood monocytes/100 leukocyt esOrdered By: Keenan Bowser on 04-19-2023 Monocytes/100 WBC (Bld) 9.1 % 0-10 [facility] Blood platelet mean volumeOr dered By: Keenan Bowser on 04-19-2023 Platelet mean volume (Bld) [Entitic vol] 10.9 fL 6.2-12.0 [facility] Determination of erythrocyte mean corpuscular volume (MCV)Ordered By: Keenan Bowser on 04-19-2023 MCV (RBC) [Entitic vol] 91.8 fL 81-99 [facility] Hematocrit Auto (Bld) [Volum e fraction]Ordered By: Keenan Bowser on 04-19-2023 Hematocrit (Bld) [Volume fraction] 38.0 % 37-47 [facility] Hyaline casts LM.LPF (Urine sed) [#/Area]Ordered By: Keenan Bowser on 04-19-2023 Hyaline casts (Urine sed) [#/Area] 0 /[LPF] 0-5 [facility] Ketones Test strip Ql (U)Ord ered By: Keenan Bowser on 04-19-2023 Ketones Ql (U) Negative Negative [facility] Laboratory - Chemistry and C hemistry - challengeOrdered By: Keenan Bowser on 04-19-2023 ALP [Catalytic activity/Vol] 87 U/L 45-117 [facility] ALT [Catalytic activity/Vol] 16 U/L 13-56 [facility] CO2 [Moles/Vol] 24.0 mmol/L 21.0-32.0 [facility] Globulin (S) [Mass/Vol] 3.9 g/dL 2.2-4.2 [facility] Urea nitrogen/Creatinine [Mass ratio] 19.8 mg/mg 10-20 [facility] Laboratory - Hematology and Cell countsOrdered By: Keenan Bowser on 04-19-2023 Erythrocyte distribution width (RBC) [Entitic vol] 45.5 fL 35.1-43.9 [facility] Erythrocyte distribution width (RBC) [Ratio] 13.4 % 11.6-14.6 [facility] Immature granulocytes/100 WBC (Bld) 0.500 % 0.0-0.9 [facility] Comment on above: IG% - Immature Granu locytes (promyelocytes, myelocytes and metamyelocytes) > 1% indicates that a LEFT SHIFT is Present. MCH (RBC) [Entitic mass] 30.4 pg 27.0-32.0 [facility] Nucleated RBC/100 WBC (Bld) [Ratio] 0 % 0-5 [facility] MCHC Auto (RBC) [Mass/Vol]Or dered By: Keenan Bowser on 04-19-2023 MCHC (RBC) [Mass/Vol] 33.2 g/dL 32-36 [facility] Mucus LM Ql (Urine sed)Order ed By: Keenan Bowser on 04-19-2023 Mucus Ql (Urine sed) 0 SEEN /hpf [facility] Nitrite Test strip Ql (U)Ord ered By: Keenan Bowser on 04-19-2023 Nitrite Ql (U) Negative Negative [facility] No Panel InformationOrdered By: Keenan Bowser on 04-19-2023 Estimated Creatinine Clearance Calc 36.93 ml/min [facility] Estimated GFR (MDRD) Amer 73 mL/min >60 [facility] Comment on above: GFR Calc Estimated GFR (MDRD) Non-Af Amer 60 mL/min >60 [facility] Comment on above: Non- GFR Calc Platelets bldOrdered By: Anthony Bowser on 04-19-2023 Platelets (Bld) [#/Vol] 242 10*3/uL 150-450 [facility] Protein Test strip Ql (U)Ord ered By: Keenan Bowser on 04-19-2023 Protein Ql (U) 15 mg/dl Negative [facility] Serum or plasma albumin nikunj urement (mass/volume)Ordered By: Keenan Bowser on 04-19-2023 Albumin [Mass/Vol] 3.3 g/dL 3.2-5.0 [facility] Serum or plasma albumin/glob ulin mass ratioOrdered By: Keenan Bowser on 04-19-2023 Albumin/Globulin [Mass ratio] 0.8 {ratio} 0.9-2.4 [facility] Serum or plasma calcium nikunj urement (mass/volume)Ordered By: Keenan Bowser on 04-19-2023 Calcium [Mass/Vol] 8.9 mg/dL 8.5-10.1 [facility] Serum or plasma creatinine m easurement (mass/volume)Ordered By: Keenan Bowser on 04-19-2023 Creatinine [Mass/Vol] 0.96 mg/dL 0.55-1.02 [facility] Comment on above: The validity of the calculated GFR & GFRAA in patients over 70 years has not been determined. Clinical correlation is essential. Serum or plasma urea nitroge n measurement (mass/volume)Ordered By: Keenan Bowser on 04-19-2023 Urea nitrogen [Mass/Vol] 19 mg/dL 7-18 [facility] Squamous epithelial cells de tection in urine sediment by light microscopyOrdered By: Keenan Bowser on 04-19-2023 Epithelial cells.squamous LM Ql (Urine sed) 0 SEEN /hpf 5-10 [facility] Thin prep Papanicolaou smear with manual screeningOrdered By: Keenan Bowser on 04-19-2023 Thin prep Papanicolaou smear with manual screening 18 U/L 15-37 [facility] Thin prep Papanicolaou smear with manual screening 8 5-15 [facility] Urine blood detectionOrdered By: Keenan Bowser on 04-19-2023 RBC Ql (U) 10 /ul Negative [facility] RBC Ql (U) 0 SEEN /hpf 0-5 [facility] Urine clarityOrdered By: Anthony Bowser on 04-19-2023 Clarity (U) Sl. Cloudy Clear [facility] Urine color determinationOrd ered By: Keenan Bowser on 04-19-2023 Color (U) Yellow Yellow [facility] Urine glucose detectionOrder ed By: Keenan Bowser on 04-19-2023 Glucose Ql (U) Normal mg/dl Normal [facility] Urine leukocyte esterase det ection by dipstickOrdered By: Keenan Bowser on 04-19-2023 Leukocyte esterase Test strip Ql (U) 25 /ul Negative [facility] Urine pHOrdered By: Keenan hobson on 04-19-2023 pH (U) 7.0 [pH] 5.0 - 8.0 [facility] Urine sediment bacteria coun t by microscopy (number/high power field)Ordered By: Keenan Bowser on 04-19-2023 Bacteria LM.HPF (Urine sed) [#/Area] 0 /[HPF] None Seen [facility] Urine specific gravity measu rementOrdered By: Keenan Bowser on 04-19-2023 Specific gravity (U) [Rel density] 1.010 1.002-1.03 0 [facility] Urobilinogen Auto test strip Ql (U)Ordered By: Keenan Bowser on 04-19-2023 Urobilinogen Ql (U) Normal mg/dl Normal [facility] No Panel InformationOrdered By: Dr. Wells on 03-15-2023 Estimated GFR (MDRD) Amer 103 mL/min >60 [facility] Comment on above: GFR Calc Estimated GFR (MDRD) Non-Af Amer 85 mL/min >60 [facility] Comment on above: Non- GFR Calc Serum or plasma creatinine m easurement (mass/volume)Ordered By: Dr. Wells on 03-15-2023 Creatinine [Mass/Vol] 0.72 mg/dL 0.55-1.02 [facility] Comment on above: The validity of the calculated GFR & GFRAA in patients over 70 years has not been determined. Clinical correlation is essential. SANDOVAL SCREENINGon 02-27-2023 [facility] HbA1c (Bld)on 01-25-2023 Average glucose Estimated from glycated hemoglobin (Bld) [Mass/Vol] 114 mg/dL [facility] HbA1c (Bld) [Mass fraction] 5.6 % 4.3 - 5.6 % [facility] LIPID PANEL, NONFASTINGon Cholesterol [Mass/Vol] 160 mg/dL <200 mg/dL [facility] HDL Cholesterol, Nonfasting 56 mg/dL >39 mg/dL [facility] LDL Cholesterol, Nonfasting 80 mg/dL <100 mg/dL [facility] LDL/HDL Ratio, Nonfasting 1.43 mg/dL <2 .54 mg/dL [facility] Non HDL Cholesterol, Nonfasting 104 mg/dL <130 mg/dL [facility] Total Chol/HDL Ratio, Nonfasting 2.86 mg/dL <5.10 mg/dL [facility] Triglycerides, Nonfasting 121 mg/dL <150 mg/dL [facility] VLDL Cholesterol, Nonfasting 24 mg/dL <30 mg/dL [facility] STREP A MOLECULAR (POC)on Procedural Control Valid [facility] Strep A (POCT) Negative Negative [facility] Absolute lymphocyte counton 01-11-2022 Lymphocytes Auto (Unsp spec) [#/Vol] 3.88 10*3/uL 0.83-4.51 [facility] Work Phone: Basophil percentageon 2021 Basophils/100 WBC (Bld) 0.5 % 0-1 [facility] Work Phone: Bilirubin [Mass/Vol] 0.30 mg/dL 0.20-1.00 [facility] Work Phone: Comment on above: For patients on eltr ombopag therapy, use of Dimension [place] TBIL is not recommended. Chloride [Moles/Vol] 106 mmol/L 98-107 [facility] Work Phone: [phone] Eosinophils/100 WBC (Bld) 2.1 % 0-5 [facility] Work Phone: Glucose [Mass/Vol] 123 mg/dL 74-106 [facility] Work Phone: Comment on above: Fasting Glucose resu lt from 100 to 125 mg/dL suggests IMPAIRED HOMEOSTASIS per A.D.A. criteria. Neutrophils (Bld) [#/Vol] 3.3 10*3/uL 2.0-7.7 [facility] Work Phone: Neutrophils/100 WBC (Bld) 41.3 % 47-70 [facility] Work Phone: Potassium [Moles/Vol] 2.9 mmol/L 3.5-5.1 [facility] Work Phone: Protein [Mass/Vol] 7.4 g/dL 6.4-8.2 [facility] Work Phone: Sodium [Moles/Vol] 140 mmol/L 136-145 [facility] Work Phone: WBC (Bld) [#/Vol] 8.1 10*3/uL 4.4-11.0 [facility] Work Phone: Blood erythrocytes count (nu mber/volume)on 01-11-2022 RBC (Bld) [#/Vol] 4.10 10*6/uL 4.2-5.4 [facility] Work Phone: Blood hemoglobin measurement (mass/volume)on 01-11-2022 Hemoglobin (Bld) [Mass/Vol] 12.6 g/dL 12.0-15.0 [facility] Work Phone: Blood lymphocytes/100 leukoc yteson 01-11-2022 Lymphocytes/100 WBC (Bld) 48.2 % 19-41 [facility] Work Phone: Blood monocytes/100 leukocyt eson 01-11-2022 Monocytes/100 WBC (Bld) 7.7 % 0-10 [facility] Work Phone: Blood platelet mean volumeon 01-11-2022 Platelet mean volume (Bld) [Entitic vol] 10.5 fL 6.2-12.0 [facility] Work Phone: Determination of erythrocyte mean corpuscular volume (MCV)on 01-11-2022 MCV (RBC) [Entitic vol] 91.2 fL 81-99 [facility] Work Phone: [phone] Hematocrit Auto (Bld) [Volum e fraction]on 01-11-2022 Hematocrit (Bld) [Volume fraction] 37.4 % 37-47 [facility] Work Phone: [phone] Laboratory - Chemistry and C hemistry - challengeon 01-11-2022 ALP [Catalytic activity/Vol] 124 U/L 45-117 [facility] Work Phone: ALT [Catalytic activity/Vol] 37 U/L 13-56 [facility] Work Phone: CO2 [Moles/Vol] 27.0 mmol/L 21.0-32.0 [facility] Work Phone: [phone] Globulin (S) [Mass/Vol] 3.6 g/dL 2.2-4.2 [facility] Work Phone: [phone] Urea nitrogen/Creatinine [Mass ratio] 30.5 mg/mg 10-20 [facility] Work Phone: [phone] Laboratory - Hematology and Cell countson 01-11-2022 Erythrocyte distribution width (RBC) [Entitic vol] 44.7 fL 35.1-43.9 [facility]: [phone] Erythrocyte distribution width (RBC) [Ratio] 13.2 % 11.6-14.6 [facility] Work Phone: [phone] Immature granulocytes/100 WBC (Bld) 0.200 % 0.0-0.9 [facility] Work Phone: [phone] Comment on above: IG% - Immature Granu locytes (promyelocytes, myelocytes and metamyelocytes) > 1% indicates that a LEFT SHIFT is Present. MCH (RBC) [Entitic mass] 30.7 pg 27.0-32.0 [facility] Work Phone: [phone] Nucleated RBC/100 WBC (Bld) [Ratio] 0 % 0-5 [facility] Work Phone: MCHC Auto (RBC) [Mass/Vol]on 01-11-2022 MCHC (RBC) [Mass/Vol] 33.7 g/dL 32-36 [facility] Work Phone: No Panel Informationon 01-11 Estimated Creatinine Clearance Calc 34.44 ml/min [facility] Work Phone: Estimated GFR (MDRD) Amer 92 mL/min >60 [facility] Work Phone: Comment on above: GFR Calc Estimated GFR (MDRD) Non-Af Amer 76 mL/min >60 [facility] Work Phone: Comment on above: Non- GFR Calc Platelets bldon 01-11-2022 Platelets (Bld) [#/Vol] 248 10*3/uL 150-450 [facility] Work Phone: Serum or plasma albumin nikunj urement (mass/volume)on 01-11-2022 Albumin [Mass/Vol] 3.8 g/dL 3.2-5.0 [facility] Work Phone: Serum or plasma albumin/glob ulin mass ratioon 01-11-2022 Albumin/Globulin [Mass ratio] 1.1 {ratio} 0.9-2.4 [facility] Work Phone: Serum or plasma calcium nikunj urement (mass/volume)on 01-11-2022 Calcium [Mass/Vol] 9.6 mg/dL 8.5-10.1 [facility] Work Phone: Serum or plasma creatinine m easurement (mass/volume)on 01-11-2022 Creatinine [Mass/Vol] 0.79 mg/dL 0.55-1.02 [facility] Work Phone: Comment on above: The validity of the calculated GFR & GFRAA in patients over 70 years has not been determined. Clinical correlation is essential. Serum or plasma urea nitroge n measurement (mass/volume)on 01-11-2022 Urea nitrogen [Mass/Vol] 24 mg/dL 7-18 [facility] Work Phone: Thin prep Papanicolaou smear with manual screeningon 01-11-2022 Thin prep Papanicolaou smear with manual screening 27 U/L 15-37 [facility] Work Phone: Thin prep Papanicolaou smear with manual screening 7 5-15 [facility] Work Phone: XR Chest PA and Lateralon IMPRESSION: No acute radiographic abnormality. Mud Temperer: PSCB Transcribe Date/Time: Sep 12 2021 10:06A Dictated by : DM SINGLETON MD This examination was interpreted and the report reviewed and electronically signed by: DM SINGLETON MD on Sep 12 2021 10:06AM [facility] DIVISION OF RADIOLOGY * * *Final Report* [...] in the spine. DIVISION OF RADIOLOGY Provider, [facility] - 09/12/2021 * * *Final Report* * [...] spine. IMPRESSION IMPRESSION: No acute radiographic abnormality. Mud Temperer: APRIL Transcribe Date/Time: Sep 12 2021 10:06A Dictated by : DM SINGLETON MD This examination was interpreted and the report reviewed and electronically signed by: DM SINGLETON MD on Sep 12 2021 10:06AM EST [facility] Radiology Study observation (narrative) Yoselin chase [facility] XR Chest PA and LateralOrder ed By: [facility] Provider on 09-12-2021 [facility] Vital Signs Date Time Vital Sign Value Performing Clinician Facility 05-26-2025 09:43-0400 Body mass index (BMI) [Ratio] 20.2 kg/m2 [facility] Work Phone: [facility] 05-26-2025 09:43-0400 Body temperature 97.5 [degF] [facility] Work Phone: [facility] 05-26-2025 09:43-0400 Body weight 45.36 kg [facility] Work Phone: [facility] 05-26-2025 09:43-0400 Diastolic blood pressure 66 mm[Hg] Constance LEAL-C Work Phone: [facility] 05-26-2025 09:43-0400 Heart rate 75 /min Constance LEAL-C Work Phone: [facility] 05-26-2025 09:43-0400 SaO2% (BldA) [Mass fraction] 100 % Constance LEAL-C Work Phone: [facility] 05-26-2025 09:43-0400 Systolic blood pressure 124 mm[Hg] Constance Klein PA-C Work Phone: [facility] 05-20-2025 13:28-0400 Body temperature 98 [degF] Dr. Fabian Mcmullen MD Work Phone: [facility] 05-20-2025 13:28-0400 Body weight 44.[address] Fabian Mcmullen MD Work Phone: [facility] 05-20-2025 13:28-0400 Diastolic blood pressure 63 mm[Hg] Dr. Fabian Mcmullen MD Work Phone: [facility] 05-20-2025 13:28-0400 Heart rate 85 /min Dr. Fabian Mcmullen MD Work Phone: [facility] 05-20-2025 13:28-0400 Respiratory rate 16 /min Dr. Fabian Mcmullen MD Work Phone: [facility] 05-20-2025 13:28-0400 SaO2% (BldA) [Mass fraction] 97 % Dr. Fabian Mcmullen MD Work Phone: [facility] 05-20-2025 13:28-0400 Systolic blood pressure 142 mm[Hg] Dr. Fabian Mcmullen MD Work Phone: [facility] 05-11-2025 13:48-0400 Body mass index (BMI) [Ratio] 19.79 kg/m2 Fabian Mcmullen MD Work Phone: [facility] 05-11-2025 13:48-0400 Body weight 44.45 kg Fabian Mcmullen MD Work Phone: [facility] 05-11-2025 13:48-0400 Diastolic blood pressure 60 mm[Hg] Fabian Mcmullen MD Work Phone: [facility] 05-11-2025 13:48-0400 Heart rate 84 /min Fabian Mcmullen MD Work Phone: [facility] 05-11-2025 13:48-0400 Respiratory rate 16 /min Fabian Mcmullen MD Work Phone: [facility] 05-11-2025 13:48-0400 Systolic blood pressure 126 mm[Hg] Fabian Mcmullen MD Work Phone: [facility] 04-15-2025 13:15-0400 Body temperature 98.2 [degF] Dr. Fabian Mcmullen MD Work Phone: [facility] 04-15-2025 13:15-0400 Body weight 43.[address] Fabian Mcmullen MD Work Phone: [facility] 04-15-2025 13:15-0400 Diastolic blood pressure 60 mm[Hg] Dr. Fabian Mcmullen MD Work Phone: 7(770)974-937370 [place] [address] 04-15-2025 13:15-0400 Heart rate 76 /min Dr. Fabian Mcmullen MD Work Phone: 3(478)125-916096 [place] [address] 04-15-2025 13:15-0400 Respiratory rate 16 /min Dr. Fabian Mcmullen MD Work Phone: 0(658)227-895070 [place] [address] 04-15-2025 13:15-0400 SaO2% (BldA) [Mass fraction] 99 % Dr. Fabian Mcmullen MD Work Phone: 1(029)859-866470 [place] [address] 04-15-2025 13:15-0400 Systolic blood pressure 136 mm[Hg] Dr. Fabian Mcmullen MD Work Phone: 8(404)072-018970 [place] [address] 03-17-2025 11:52-0400 Body mass index (BMI) [Ratio] 19.39 kg/m2 Constance Klein PA-C Work Phone: [facility] 03-17-2025 11:52-0400 Body temperature 97.11 [degF] Constance Klein PA-C Work Phone: [facility] 03-17-2025 11:52-0400 Body weight 43.55 kg Constance Klein PA-C Work Phone: [facility] 03-17-2025 11:52-0400 Diastolic blood pressure 62 mm[Hg] Constance Klein PA-C Work Phone: [facility] 03-17-2025 11:52-0400 Heart rate 73 /min Constance Klein PA-C Work Phone: [facility] 03-17-2025 11:52-0400 Respiratory rate 16 /min Constance Klein PA-C Work Phone: [facility] 03-17-2025 11:52-0400 SaO2% (BldA) [Mass fraction] 99 % Constance Klein PA-C Work Phone: [facility] 03-17-2025 11:52-0400 Systolic blood pressure 122 mm[Hg] Constance Klein PA-C Work Phone: [facility] 02-12-2025 13:35-0400 Body mass index (BMI) [Ratio] 19.67 kg/m2 Constance Klein PA-C Work Phone: [facility] 02-12-2025 13:35-0400 Body temperature 98.6 [degF] Constance Klein PA-C Work Phone: [facility] 02-12-2025 13:35-0400 Body weight 44.17 kg Constance Klein PA-C Work Phone: [facility] 02-12-2025 13:35-0400 Diastolic blood pressure 60 mm[Hg] Constance Klein PA-C Work Phone: [facility] 02-12-2025 13:35-0400 Heart rate 80 /min Constance Klein PA-C Work Phone: [facility] 02-12-2025 13:35-0400 Respiratory rate 16 /min Constance Klein PA-C Work Phone: [facility] 02-12-2025 13:35-0400 SaO2% (BldA) [Mass fraction] 96 % Constance Klein PA-C Work Phone: [facility] 02-12-2025 13:35-0400 Systolic blood pressure 128 mm[Hg] Constance Klein PA-C Work Phone: [facility] 01-29-2025 13:04-0400 Body mass index (BMI) [Ratio] 20.48 kg/m2 Katie Chaudhari APRN.CNP Work Phone: [facility] 01-29-2025 13:04-0400 Body weight 46 kg Katie Chaudhari ENGLISH COMPOSITION TEACHER.CAMPGROUND ATTENDANT Work Phone: [facility] 01-29-2025 13:04-0400 Diastolic blood pressure 64 mm[Hg] Katie Chaudhari ENGLISH COMPOSITION TEACHER.CAMPGROUND ATTENDANT Work Phone: [facility] 01-29-2025 13:04-0400 Heart rate 96 /min Katie Chaudhari ENGLISH COMPOSITION TEACHER.CAMPGROUND ATTENDANT Work Phone: [facility] 01-29-2025 13:04-0400 Systolic blood pressure 108 mm[Hg] Katie Chaudhari ENGLISH COMPOSITION TEACHER.CAMPGROUND ATTENDANT Work Phone: [facility] 01-26-2025 10:00-0400 Body temperature 98.9 [degF] Dr. Fabian Mcmullen MD Work Phone: [facility] 01-26-2025 10:00-0400 Diastolic blood pressure 78 mm[Hg] Dr. Fabian Mcmullen MD Work Phone: [facility] 01-26-2025 10:00-0400 Heart rate 89 /min Dr. Fabian Mcmullen MD Work Phone: [facility] 01-26-2025 10:00-0400 Respiratory rate 16 /min Dr. Fabian Mcmullen MD Work Phone: [facility] 01-26-2025 10:00-0400 SaO2% (BldA) [Mass fraction] 98 % Dr. Fabian Mcmullen MD Work Phone: [facility] 01-26-2025 10:00-0400 Systolic blood pressure 118 mm[Hg] Dr. Fabian Mcmullen MD Work Phone: [facility] 01-26-2025 07:14-0400 Body height 152.[address] Fabian Mcmullen MD Work Phone: [facility] 01-26-2025 07:14-0400 Body mass index (BMI) [Ratio] 20.2 kg/m2 Dr. Fabian Mcmullen MD Work Phone: [facility] 01-26-2025 07:14-0400 Body weight 46.[address] Fabian Mcmullen MD Work Phone: [facility] 09-30-2024 10:16-0500 Body mass index (BMI) [Ratio] 20.2 kg/m2 Katie Chaudhari APRN.CAMPGROUND ATTENDANT Work Phone: [facility] 09-30-2024 10:16-0500 Body weight 45.36 kg Katie Chaudhari ENGLISH COMPOSITION TEACHER.CAMPGROUND ATTENDANT Work Phone: [facility] 09-30-2024 10:16-0500 Diastolic blood pressure 71 mm[Hg] Katie Chaudhari ENGLISH COMPOSITION TEACHER.CAMPGROUND ATTENDANT Work Phone: [facility] 09-30-2024 10:16-0500 Heart rate 90 /min Katie Chaudhari ENGLISH COMPOSITION TEACHER.CAMPGROUND ATTENDANT Work Phone: [facility] 09-30-2024 10:16-0500 Respiratory rate 14 /min Katie Chaudhari ENGLISH COMPOSITION TEACHER.CAMPGROUND ATTENDANT Work Phone: [facility] 09-30-2024 10:16-0500 SaO2% (BldA) [Mass fraction] 99 % Katie Chaudhari ENGLISH COMPOSITION TEACHER.CAMPGROUND ATTENDANT Work Phone: [facility] 09-30-2024 10:16-0500 Systolic blood pressure 135 mm[Hg] Katie Chaudhari ENGLISH COMPOSITION TEACHER.CAMPGROUND ATTENDANT Work Phone: [facility] 09-22-2024 11:30-0500 Body mass index (BMI) [Ratio] 20.4 kg/m2 Constance Klein PA-C Work Phone: [facility] 09-22-2024 11:30-0500 Body temperature 98.01 [degF] Constance Klein PA-C Work Phone: [facility] 09-22-2024 11:30-0500 Body weight 45.81 kg Constance Klein PA-C Work Phone: [facility] 09-22-2024 11:30-0500 Diastolic blood pressure 70 mm[Hg] Constance Klein PA-C Work Phone: [facility] 09-22-2024 11:30-0500 Heart rate 81 /min Constance Klein PA-C Work Phone: [facility] 09-22-2024 11:30-0500 Respiratory rate 16 /min Constance Klein PA-C Work Phone: [facility] 09-22-2024 11:30-0500 SaO2% (BldA) [Mass fraction] 96 % Constance Klein PA-C Work Phone: [facility] 09-22-2024 11:30-0500 Systolic blood pressure 127 mm[Hg] Constance Klein PA-C Work Phone: [facility] 09-08-2024 11:15-0500 Body mass index (BMI) [Ratio] 20.2 kg/m2 Constance Klein PA-C Work Phone: [facility] 09-08-2024 11:15-0500 Body temperature 97.9 [degF] Constance Klein PA-C Work Phone: [facility] 09-08-2024 11:15-0500 Body weight 45.36 kg Constance Klein PA-C Work Phone: [facility] 09-08-2024 11:15-0500 Diastolic blood pressure 69 mm[Hg] Constance Klein PA-C Work Phone: [facility] 09-08-2024 11:15-0500 Heart rate 88 /min Constance Klein PA-C Work Phone: [facility] 09-08-2024 11:15-0500 Respiratory rate 16 /min Constance Klein PA-C Work Phone: [facility] 09-08-2024 11:15-0500 SaO2% (BldA) [Mass fraction] 100 % Constance Klein PA-C Work Phone: [facility] 09-08-2024 11:15-0500 Systolic blood pressure 118 mm[Hg] Constance Klein PA-C Work Phone: [facility] 08-25-2024 11:25-0500 Body mass index (BMI) [Ratio] 20.24 kg/m2 Constance Klein PA-C Work Phone: [facility] 08-25-2024 11:25-0500 Body weight 45.45 kg Constance Klein PA-C Work Phone: [facility] 08-25-2024 11:25-0500 Diastolic blood pressure 62 mm[Hg] Constance Klein PA-C Work Phone: [facility] 08-25-2024 11:25-0500 Heart rate 97 /min Constance Klein PA-C Work Phone: [facility] 08-25-2024 11:25-0500 SaO2% (BldA) [Mass fraction] 100 % Constance Klein PA-C Work Phone: [facility] 08-25-2024 11:25-0500 Systolic blood pressure 118 mm[Hg] Constance LEAL-C Work Phone: [facility] 08-08-2024 13:12-0400 Diastolic blood pressure 68 mm[Hg] Fabian Mcmullen MD Work Phone: [facility] Comment on above: Aayush BP 08-08-2024 13:12-0400 Systolic blood pressure 164 mm[Hg] Fabian Mcmullen MD Work Phone: [facility] Comment on above: Aayush BP 08-08-2024 11:50-0400 Body height 149.9 cm Fabian Mcmullen MD Work Phone: [facility] 08-08-2024 11:50-0400 Body mass index (BMI) [Ratio] 20.4 kg/m2 Fabian Mcmullen MD Work Phone: [facility] 08-08-2024 11:50-0400 Body weight 45.81 kg Fabian Mcmullen MD Work Phone: [facility] 08-08-2024 11:50-0400 Heart rate 72 /min Fabian Mcmullen MD Work Phone: [facility] 08-08-2024 11:50-0400 Respiratory rate 16 /min Fabian Mcmullen MD Work Phone: [facility] 04-28-2024 09:00-0400 Body mass index (BMI) [Ratio] 19.66 kg/m2 Katie Chaudhari APRN.CAMPGROUND ATTENDANT Work Phone: [facility] 04-28-2024 09:00-0400 Body weight 44.91 kg Katie Chaudhari ENGLISH COMPOSITION TEACHER.CAMPGROUND ATTENDANT Work Phone: [facility] 04-28-2024 09:00-0400 Diastolic blood pressure 73 mm[Hg] Katie Chaudhari ENGLISH COMPOSITION TEACHER.CAMPGROUND ATTENDANT Work Phone: [facility] 04-28-2024 09:00-0400 Heart rate 75 /min Katie Chaudhari ENGLISH COMPOSITION TEACHER.CAMPGROUND ATTENDANT Work Phone: [facility] 04-28-2024 09:00-0400 Respiratory rate 14 /min Katie Chaudhari ENGLISH COMPOSITION TEACHER.CAMPGROUND ATTENDANT Work Phone: [facility] 04-28-2024 09:00-0400 Systolic blood pressure 153 mm[Hg] Katie Chaudhari ENGLISH COMPOSITION TEACHER.CAMPGROUND ATTENDANT Work Phone: [facility] 02-07-2024 13:38-0400 Body mass index (BMI) [Ratio] 19.46 kg/m2 Constance Klein PA-C Work Phone: [facility] 02-07-2024 13:38-0400 Body temperature 98.4 [degF] Constance Klein PA-C Work Phone: [facility] 02-07-2024 13:38-0400 Body weight 44.45 kg Constance Klein PA-C Work Phone: [facility] 02-07-2024 13:38-0400 Diastolic blood pressure 58 mm[Hg] Constance Klein PA-C Work Phone: [facility] 02-07-2024 13:38-0400 Heart rate 79 /min Constance Klein PA-C Work Phone: [facility] 02-07-2024 13:38-0400 Respiratory rate 16 /min Constance Klein PA-C Work Phone: [facility] 02-07-2024 13:38-0400 SaO2% (BldA) [Mass fraction] 98 % Constance Klein PA-C Work Phone: [facility] 02-07-2024 13:38-0400 Systolic blood pressure 130 mm[Hg] Constance Klein PA-C Work Phone: [facility] 12-20-2023 12:53-0500 Body temperature 99 [degF] Constance Klein PA-C Work Phone: [facility] 12-20-2023 12:53-0500 Body weight 44.91 kg Constance Klein PA-C Work Phone: [facility] 12-20-2023 12:53-0500 Diastolic blood pressure 60 mm[Hg] Constance Klein PA-C Work Phone: [facility] 12-20-2023 12:53-0500 Heart rate 100 /min Constance Klein PA-C Work Phone: [facility] 12-20-2023 12:53-0500 Respiratory rate 16 /min Constance Klein PA-C Work Phone: [facility] 12-20-2023 12:53-0500 SaO2% (BldA) [Mass fraction] 97 % Constance Klein PA-C Work Phone: [facility] 12-20-2023 12:53-0500 Systolic blood pressure 116 mm[Hg] Constance Klein PA-C Work Phone: [facility] 12-04-2023 08:06-0500 Body temperature 97.3 [degF] Alexei Kruger MD Work Phone: [facility] 12-04-2023 08:06-0500 Body weight 44.36 kg Alexei Kruger MD Work Phone: [facility] 11-27-2023 14:00-0500 Diastolic blood pressure 51 mm[Hg] Dr. Fabian Mcmullen Work Phone: [facility] 11-27-2023 14:00-0500 Heart rate 75 /min Dr. Fabian Mcmullen Work Phone: [facility] 11-27-2023 14:00-0500 Respiratory rate 12 /min Dr. Fabian Mcmullen Work Phone: [facility] 11-27-2023 14:00-0500 SaO2% (BldA) [Mass fraction] 99 % Dr. Fabian Mcmullen Work Phone: [facility] 11-27-2023 14:00-0500 Systolic blood pressure 106 mm[Hg] Dr. Fabian Mcmullen Work Phone: [facility] 11-26-2023 23:46-0500 Body height 152.[address] Fabian Mcmullen Work Phone: [facility] 11-26-2023 23:46-0500 Body temperature 97.3 [degF] Dr. Fabian Mcmullen Work Phone: [facility] 11-16-2023 10:22-0500 Body temperature 97.7 [degF] Fabian Mcmullen MD Work Phone: [facility] 11-16-2023 10:22-0500 Body weight 44 kg Fabian Mcmullen MD Work Phone: [facility] 11-16-2023 10:22-0500 Diastolic blood pressure 74 mm[Hg] Fabian Mcmullen MD Work Phone: [facility] 11-16-2023 10:22-0500 Heart rate 76 /min Fabian Mcmullen MD Work Phone: [facility] 11-16-2023 10:22-0500 Respiratory rate 16 /min Fabian Mcmullen MD Work Phone: [facility] 11-16-2023 10:22-0500 Systolic blood pressure 148 mm[Hg] Fabian Mcmullen MD Work Phone: [facility] 08-08-2023 17:00-0400 Body height 151.1 cm Fabian Mcmullen MD Work Phone: [facility] 08-08-2023 17:00-0400 Body weight 42.64 kg Fabian Mcmullen MD Work Phone: [facility] 08-08-2023 17:00-0400 Diastolic blood pressure 68 mm[Hg] Fabian Mcmullen MD Work Phone: [facility] 08-08-2023 17:00-0400 Heart rate 84 /min Fabian Mcmullen MD Work Phone: [facility] 08-08-2023 17:00-0400 Respiratory rate 16 /min Fabian Mcmullen MD Work Phone: [facility] 08-08-2023 17:00-0400 Systolic blood pressure 128 mm[Hg] Fabian Mcmullen MD Work Phone: [facility] 08-03-2023 11:40-0400 Body temperature 99.3 [degF] Daniela Athy PA-C Work Phone: [facility] 08-03-2023 11:40-0400 Body weight 42.64 kg Daniela Athy PA-C Work Phone: [facility] 08-03-2023 11:40-0400 Diastolic blood pressure 73 mm[Hg] Daniela Athy PA-C Work Phone: [facility] 08-03-2023 11:40-0400 Heart rate 80 /min Daniela Athy PA-C Work Phone: [facility] 08-03-2023 11:40-0400 Respiratory rate 20 /min Daniela Athy PA-C Work Phone: [facility] 08-03-2023 11:40-0400 SaO2% (BldA) [Mass fraction] 98 % Daniela Athy PA-C Work Phone: [facility] 08-03-2023 11:40-0400 Systolic blood pressure 126 mm[Hg] Daniela Athy PA-C Work Phone: [facility] 07-11-2023 09:49-0400 Body height 152.[address] Fabian Mcmullen Work Phone: [facility] 07-11-2023 09:49-0400 Body mass index (BMI) [Ratio] 17.9 kg/m2 Dr. Fabian Mcmullen Work Phone: [facility] 07-11-2023 09:49-0400 Body weight 41.[address] Fabian Mcmullen Work Phone: [facility] 07-11-2023 09:49-0400 Diastolic blood pressure 72 mm[Hg] Dr. Fabian Mcmullen Work Phone: [facility] 07-11-2023 09:49-0400 Heart rate 74 /min Dr. Fabian Mcmullen Work Phone: 9(082)037-471296 [place] [address] 07-11-2023 09:49-0400 Respiratory rate 16 /min Dr. Fabian Mcmullen Work Phone: [facility] 07-11-2023 09:49-0400 Systolic blood pressure 134 mm[Hg] Dr. Fabian Mcmullen Work Phone: [facility] 05-14-2023 10:27-0400 Body weight 41.73 kg Katie Chaudhari APRN.CAMPGROUND ATTENDANT Work Phone: [facility] 05-14-2023 10:27-0400 Diastolic blood pressure 64 mm[Hg] Katie Chaudhari APRN.CAMPGROUND ATTENDANT Work Phone: [facility] 05-14-2023 10:27-0400 Heart rate 72 /min Katie Chaudhari APRN.CAMPGROUND ATTENDANT Work Phone: [facility] 05-14-2023 10:27-0400 Respiratory rate 14 /min Katie Chaudhari APRN.CAMPGROUND ATTENDANT Work Phone: [facility] 05-14-2023 10:27-0400 Systolic blood pressure 120 mm[Hg] Katie Chaudhari APRN.CAMPGROUND ATTENDANT Work Phone: [facility] 05-01-2023 10:22-0400 Body temperature 98.2 [degF] Dr. Fabian Mcmullen Work Phone: 6(331)050-220896 [place] [address] 05-01-2023 10:22-0400 Diastolic blood pressure 62 mm[Hg] Dr. Fabian Mcmullen Work Phone: 1(642)172-283996 [place] [address] 05-01-2023 10:22-0400 Heart rate 77 /min Dr. Fabian Mcmullen Work Phone: 3(797)814-599596 [place] [address] 05-01-2023 10:22-0400 Respiratory rate 16 /min Dr. Fabian Mcmullen Work Phone: 0(237)758-117396 [place] [address] 05-01-2023 10:22-0400 SaO2% (BldA) [Mass fraction] 97 % Dr. Fabian Mcmullen Work Phone: 5(073)584-971596 [place] [address] 05-01-2023 10:22-0400 Systolic blood pressure 157 mm[Hg] Dr. Fabian Mcmullen Work Phone: 8(686)504-756596 [place] [address] 05-01-2023 03:05-0400 Body mass index (BMI) [Ratio] 18.4 kg/m2 Dr. Fabian Mcmullen Work Phone: 0(377)398-395696 [place] [address] 05-01-2023 03:05-0400 Body weight 42.[address] Fabian Mcmullen Work Phone: 0(211)069-105396 [place] [address] 04-27-2023 08:58-0400 Body temperature 98 [degF] Dr. Fabian Mcmullen Work Phone: 6(427)330-259796 [place] [address] 04-27-2023 08:58-0400 Diastolic blood pressure 55 mm[Hg] Dr. Fabian Mcmullen Work Phone: 3(044)553-589596 [place] [address] 04-27-2023 08:58-0400 Heart rate 84 /min Dr. Fabian Mcmullen Work Phone: 8(882)764-060096 [place] [address] 04-27-2023 08:58-0400 Respiratory rate 14 /min Dr. Fabian Mcmullen Work Phone: 7(466)168-640996 [place] [address] 04-27-2023 08:58-0400 SaO2% (BldA) [Mass fraction] 99 % Dr. Fabian Mcmullen Work Phone: [facility] 04-27-2023 08:58-0400 Systolic blood pressure 141 mm[Hg] Dr. Fabian Mcmullen Work Phone: [facility] 04-27-2023 05:45-0400 Body height 152.[address] Fabian Mcmullen Work Phone: [facility] 04-27-2023 05:45-0400 Body mass index (BMI) [Ratio] 19.3 kg/m2 Dr. Fabian Mcmullen Work Phone: 0(938)973-093970 [place] [address] 04-27-2023 05:45-0400 Body weight [address] Fabian Mcmullen Work Phone: [facility] 04-23-2023 13:45-0400 Body temperature 98.49 [degF] Fabian Mcmullen MD Work Phone: [facility] 04-23-2023 13:45-0400 Body weight 43.09 kg Fabian Mcmullen MD Work Phone: [facility] 04-23-2023 13:45-0400 Diastolic blood pressure 64 mm[Hg] Fabian Mcmullen MD Work Phone: [facility] 04-23-2023 13:45-0400 Heart rate 89 /min Fabian Mcmullen MD Work Phone: [facility] 04-23-2023 13:45-0400 Respiratory rate 18 /min Fabian Mcmullen MD Work Phone: [facility] 04-23-2023 13:45-0400 SaO2% (BldA) [Mass fraction] 99 % Fabian Mcmullen MD Work Phone: [facility] 04-23-2023 13:45-0400 Systolic blood pressure 116 mm[Hg] Fabian Mcmullen MD Work Phone: [facility] 04-19-2023 08:30-0400 Respiratory rate 18 /min Dr. Fabian Mcmullen Work Phone: 5(410)868-447438 [place] [address] 04-19-2023 06:31-0400 Body height 152.[address] Fabian Mcmullen Work Phone: 9(176)769-520296 [place] [address] 04-19-2023 06:31-0400 Body mass index (BMI) [Ratio] 19.8 kg/m2 Dr. Fabian Mcmullen Work Phone: 1(195)313-884996 [place] [address] 04-19-2023 06:31-0400 Body temperature 98.7 [degF] Dr. Fabian Mcmullen Work Phone: 4(410)704-840896 [place] [address] 04-19-2023 06:31-0400 Body weight 46.[address] Fabian Mcmullen Work Phone: 5(426)348-372196 [place] [address] 04-19-2023 06:31-0400 Diastolic blood pressure 60 mm[Hg] Dr. Fabian Mcmullen Work Phone: 3(454)679-754796 [place] [address] 04-19-2023 06:31-0400 Heart rate 86 /min Dr. Fabian Mcmullen Work Phone: 1(905)710-517696 [place] [address] 04-19-2023 06:31-0400 SaO2% (BldA) [Mass fraction] 97 % Dr. Fabian Mcmullen Work Phone: 4(637)762-005796 [place] [address] 04-19-2023 06:31-0400 Systolic blood pressure 143 mm[Hg] Dr. Fabian Mcmullen Work Phone: 8(829)655-061296 [place] [address] 04-18-2023 15:26-0400 Body temperature 98.2 [degF] Dr. Fabian Mcmullen Work Phone: 5(663)035-895396 [place] [address] 04-18-2023 15:26-0400 Body weight 45.[address] Fabian Mcmullen Work Phone: 1(841)531-220896 [place] [address] 04-18-2023 15:26-0400 Diastolic blood pressure 67 mm[Hg] Dr. Fabian Mcmullen Work Phone: 7(328)091-714496 [place] [address] 04-18-2023 15:26-0400 Heart rate 75 /min Dr. Fabian Mcmullen Work Phone: 8(220)579-243770 [place] [address] 04-18-2023 15:26-0400 Respiratory rate 16 /min Dr. Fabian Mcmullen Work Phone: [facility] 04-18-2023 15:26-0400 SaO2% (BldA) [Mass fraction] 99 % Dr. Fabian Mcmullen Work Phone: [facility] 04-18-2023 15:26-0400 Systolic blood pressure 155 mm[Hg] Dr. Fabian Mcmullen Work Phone: 8(978)891-329070 [place] [address] 03-15-2023 13:08-0400 Body weight 43.[address] Fabian Mcmullen Work Phone: 7(697)251-743096 [place] [address] 03-15-2023 13:08-0400 Diastolic blood pressure 68 mm[Hg] Dr. Fabian Mcmullen Work Phone: 4(103)726-391596 [place] [address] 03-15-2023 13:08-0400 Heart rate 70 /min Dr. Fabian Mcmullen Work Phone: 4(544)660-692570 [place] [address] 03-15-2023 13:08-0400 Respiratory rate 16 /min Dr. Fabian Mcmullen Work Phone: [facility] 03-15-2023 13:08-0400 SaO2% (BldA) [Mass fraction] 98 % Dr. Fabian Mcmullen Work Phone: [facility] 03-15-2023 13:08-0400 Systolic blood pressure 148 mm[Hg] Dr. Fabian Mcmullen Work Phone: [facility] 02-09-2023 12:19-0400 Diastolic blood pressure 56 mm[Hg] Constance Klein PA-C Work Phone: [facility] 02-09-2023 12:19-0400 Heart rate 66 /min Constance Klein PA-C Work Phone: [facility] 02-09-2023 12:19-0400 Systolic blood pressure 140 mm[Hg] Constance LEAL-C Work Phone: [facility] 02-09-2023 11:57-0400 Body temperature 98.4 [degF] Constance Klein PA-C Work Phone: [facility] 02-09-2023 11:57-0400 Body weight 43.26 kg Constance Klein PA-C Work Phone: [facility] 02-09-2023 11:57-0400 Respiratory rate 16 /min Constance Klein PA-C Work Phone: [facility] 01-24-2023 16:18-0400 Diastolic blood pressure 70 mm[Hg] Fabian Mcmullen MD Work Phone: [facility] 01-24-2023 16:18-0400 Systolic blood pressure 172 mm[Hg] Fabian Mcmullen MD Work Phone: [facility] 01-24-2023 15:59-0400 Body weight 42.64 kg Fabian Mcmullen MD Work Phone: [facility] 01-24-2023 15:59-0400 Heart rate 64 /min Fabian Mcmullen MD Work Phone: [facility] 01-24-2023 15:59-0400 Respiratory rate 16 /min Fabian Mcmullen MD Work Phone: [facility] 01-16-2023 09:36-0400 Body temperature 97.81 [degF] Katie Chaudhari APRN.CAMPGROUND ATTENDANT Work Phone: [facility] 01-16-2023 09:36-0400 Body weight 42.19 kg Katie Chaudhari APRN.CAMPGROUND ATTENDANT Work Phone: [facility] 01-16-2023 09:36-0400 Diastolic blood pressure 60 mm[Hg] Katie Chaudhari APRN.CAMPGROUND ATTENDANT Work Phone: [facility] 01-16-2023 09:36-0400 Heart rate 76 /min Katie Chaudhari APRN.CAMPGROUND ATTENDANT Work Phone: [facility] 01-16-2023 09:36-0400 Respiratory rate 14 /min Katie Chaudhari APRN.CAMPGROUND ATTENDANT Work Phone: [facility] 01-16-2023 09:36-0400 SaO2% (BldA) [Mass fraction] 99 % Katie Chaudhari ENGLISH COMPOSITION TEACHER.CAMPGROUND ATTENDANT Work Phone: [facility] 01-16-2023 09:36-0400 Systolic blood pressure 126 mm[Hg] Katie Chaudhari ENGLISH COMPOSITION TEACHER.CAMPGROUND ATTENDANT Work Phone: [facility] 12-21-2022 08:27-0500 Body temperature 98.29 [degF] Fabian Mcmullen MD Work Phone: [facility] 12-21-2022 08:27-0500 Body weight 42.19 kg Fabian Mcmullen MD Work Phone: [facility] 12-21-2022 08:27-0500 Diastolic blood pressure 70 mm[Hg] Fabian Mcmullen MD Work Phone: [facility] 12-21-2022 08:27-0500 Heart rate 71 /min Fabian Mcmullen MD Work Phone: [facility] 12-21-2022 08:27-0500 Respiratory rate 14 /min Fabian Mcmullen MD Work Phone: [facility] 12-21-2022 08:27-0500 SaO2% (BldA) [Mass fraction] 100 % Fabian Mcmullen MD Work Phone: [facility] 12-21-2022 08:27-0500 Systolic blood pressure 128 mm[Hg] Fabian Mcmullen MD Work Phone: [facility] 12-11-2022 08:16-0500 Body temperature 99 [degF] Nikky John ENGLISH COMPOSITION TEACHER.CAMPGROUND ATTENDANT Work Phone: [facility] 12-11-2022 08:16-0500 Body weight 42.27 kg Nikky John ENGLISH COMPOSITION TEACHER.CAMPGROUND ATTENDANT Work Phone: [facility] 12-11-2022 08:16-0500 Diastolic blood pressure 78 mm[Hg] Nikky John ENGLISH COMPOSITION TEACHER.CAMPGROUND ATTENDANT Work Phone: [facility] 12-11-2022 08:16-0500 Heart rate 85 /min Nikky John ENGLISH COMPOSITION TEACHER.CAMPGROUND ATTENDANT Work Phone: [facility] 12-11-2022 08:16-0500 Respiratory rate 16 /min Nikky John ENGLISH COMPOSITION TEACHER.CAMPGROUND ATTENDANT Work Phone: [facility] 12-11-2022 08:16-0500 SaO2% (BldA) [Mass fraction] 100 % Nikky John ENGLISH COMPOSITION TEACHER.CAMPGROUND ATTENDANT Work Phone: [facility] 12-11-2022 08:16-0500 Systolic blood pressure 124 mm[Hg] Nikky John ENGLISH COMPOSITION TEACHER.CAMPGROUND ATTENDANT Work Phone: [facility] 09-06-2022 15:50-0500 Body temperature 99.39 [degF] Joelle Zurawick ENGLISH COMPOSITION TEACHER.CAMPGROUND ATTENDANT Work Phone: [facility] 09-06-2022 15:50-0500 Body weight 42.82 kg Joelle Zurawick ENGLISH COMPOSITION TEACHER.CAMPGROUND ATTENDANT Work Phone: [facility] 09-06-2022 15:50-0500 Diastolic blood pressure 58 mm[Hg] Joelle Zurawick ENGLISH COMPOSITION TEACHER.CAMPGROUND ATTENDANT Work Phone: [facility] 09-06-2022 15:50-0500 Heart rate 89 /min Joelle Zurawick ENGLISH COMPOSITION TEACHER.CAMPGROUND ATTENDANT Work Phone: [facility] 09-06-2022 15:50-0500 Respiratory rate 16 /min Joelle Zurawick ENGLISH COMPOSITION TEACHER.CAMPGROUND ATTENDANT Work Phone: [facility] 09-06-2022 15:50-0500 SaO2% (BldA) [Mass fraction] 97 % Joelle Zurawick ENGLISH COMPOSITION TEACHER.CAMPGROUND ATTENDANT Work Phone: [facility] 09-06-2022 15:50-0500 Systolic blood pressure 138 mm[Hg] Joelle Zurawick ENGLISH COMPOSITION TEACHER.CAMPGROUND ATTENDANT Work Phone: [facility] 08-09-2022 15:20-0400 Body weight 42.82 kg Joelle Zurawick ENGLISH COMPOSITION TEACHER.CAMPGROUND ATTENDANT Work Phone: [facility] 08-09-2022 15:20-0400 Diastolic blood pressure 58 mm[Hg] Joelle Zurawick ENGLISH COMPOSITION TEACHER.CAMPGROUND ATTENDANT Work Phone: [facility] 08-09-2022 15:20-0400 Heart rate 70 /min Joelle Zurawick ENGLISH COMPOSITION TEACHER.CAMPGROUND ATTENDANT Work Phone: [facility] 08-09-2022 15:20-0400 Respiratory rate 14 /min Joelle Zurawick ENGLISH COMPOSITION TEACHER.CAMPGROUND ATTENDANT Work Phone: [facility] 08-09-2022 15:20-0400 Systolic blood pressure 140 mm[Hg] Joelle Zurawick ENGLISH COMPOSITION TEACHER.CAMPGROUND ATTENDANT Work Phone: [facility] 07-26-2022 15:41-0400 Diastolic blood pressure 64 mm[Hg] Fabian Mcmullen MD Work Phone: [facility] 07-26-2022 15:41-0400 Systolic blood pressure 152 mm[Hg] Fabian Mcmullen MD Work Phone: [facility] 07-26-2022 15:20-0400 Body height 152.4 cm Fabian Mcmullen MD Work Phone: [facility] 07-26-2022 15:20-0400 Body weight 42.64 kg Fabian Mcmullen MD Work Phone: [facility] 07-26-2022 15:20-0400 Heart rate 70 /min Fabian Mcmullen MD Work Phone: [facility] 07-26-2022 15:20-0400 Respiratory rate 14 /min Fabian Mcmullen MD Work Phone: [facility] 01-11-2022 15:29-0400 Diastolic blood pressure 60 mm[Hg] [facility] Work Phone: 01-11-2022 15:29-0400 Heart rate 73 /min [facility] Work Phone: 01-11-2022 15:29-0400 Respiratory rate 17 /min [facility] Work Phone: 01-11-2022 15:29-0400 SaO2% (BldA) [Mass fraction] 98 % [facility] Work Phone: 01-11-2022 15:29-0400 Systolic blood pressure 133 mm[Hg] [facility] Work Phone: 01-11-2022 13:06-0400 Body height 152.4 cm [facility] Work Phone: 01-11-2022 13:06-0400 Body mass index (BMI) [Ratio] 18.7 kg/m2 [facility] Work Phone: 01-11-2022 13:06-0400 Body temperature 97.6 [degF] [facility] Work Phone: 01-11-2022 13:06-0400 Body weight 43.54 kg [facility] Work Phone: Encounters Encounter Date Encounter Type Care Provider Facility Start: 08-05-2025 End: 08-05-2025 ambulatory CONSTANCE KLEIN Facility:[facility] Start: 07-24-2025 End: 07-24-2025 ambulatory CONSTANCE KLEIN Facility:[facility] Start: 07-08-2025 End: 07-08-2025 ambulatory FABIAN MCMULLEN Facility:[facility] Start: 07-07-2025 End: 07-07-2025 ambulatory FABIAN MCMULLEN Facility:[facility] Start: 06-29-2025 End: 06-30-2025 Refill Fabian Mcmullen MD Work Phone: Family [facility] Comment on above: Refill Request Start: 06-26-2025 End: 06-26-2025 ambulatory Guido Jeffers PT Work Phone: [facility] Comment on above: Headache, unspecifie d headache type (Primary Dx); Neck tightness Start: 06-11-2025 End: 06-12-2025 Follow-up encounter Fabian Mcmullen MD Work Phone: [facility] Start: 06-11-2025 End: 06-11-2025 ambulatory FABIAN MCMULLEN Facility:[facility] Start: 06-09-2025 End: 06-09-2025 ambulatory Vladimir Mcghee [facility] Comment on above: Headache, unspecifie d headache type (Primary Dx); Neck tightness Start: 05-26-2025 End: 05-26-2025 Office outpatient visit 15 minutes Constance Klein PA-C Work Phone: [facility] Comment on above: Headache, unspecifie d headache type (Primary Dx); Temporal pain; Neck tightness; 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 dysplasia Start: 05-26-2025 End: 05-26-2025 ambulatory FABIAN MCMULLEN Facility:[facility] Start: 05-22-2025 End: 05-22-[address] Fabian Mcmullen MD Work Phone: -Cat Scan [facility] Start: 05-22-2025 End: 05-22-2025 Patient encounter procedure Deb LEAL -Cat Scan [facility] Work Phone: Start: 05-22-2025 End: 05-22-2025 ambulatory Fabian Mcmullen Facility:[facility] Start: 05-20-2025 End: 05-20-2025 Patient encounter procedure Deb LEAL -[facility] Work Phone: Start: 05-20-2025 End: 05-20-[address] Fabian Mcmullen MD Work Phone: -[facility] Start: 05-18-2025 ambulatory Fabian Mcmullen Facility :[facility] Start: 05-18-2025 End: 05-18-2025 Chart abstracting Fabian Mcmullen MD Work Phone: [facility] Comment on above: Abstract (Non [facility] te sting - Renal Artery US) Start: 05-15-2025 Non-patient / Non-visit Dr. Sacha Wells MD -[facility] Start: 05-15-2025 End: 05-15-[address] Fabian Mcmullen MD Work Phone: -Cardiovascular Services Start: 05-15-2025 End: 05-15-2025 Patient encounter procedure Deb LEAL -[facility] Work Phone: Start: 05-15-2025 End: 05-15-2025 ambulatory Deb Cheung Facility:[facility] Start: 05-13-2025 End: 05-13-2025 Telephone encounter Fabian Mcmullen MD Work Phone: [facility] Comment on above: Patient Question Start: 05-12-2025 End: 05-13-2025 Follow-up encounter Fabian Mcmullen MD Work Phone: [facility] Comment on above: Results Start: 05-11-2025 End: 05-11-2025 ambulatory FABIAN MCMULLEN Facility:[facility] Start: 05-11-2025 End: 05-11-2025 Patient encounter procedure Fabian Mcmullen MD Work Phone: [facility] Comment on above: Bacterial sinusitis (Primary Dx); Temporal pain; Arthralgia of right temporomandibular joint Start: 05-11-2025 End: 05-11-2025 ambulatory FABIAN MCMULLEN Facility:[facility] Start: 04-27-2025 End: 04-27-2025 Chart abstracting Fabian Mcmullen MD Work Phone: [facility] Comment on above: Outside Testing (Car otid US) Start: 04-24-2025 Non-patient / Non-visit Dr. Sacha Wells MD -[facility] Start: 04-24-2025 End: 04-24-2025 Patient encounter procedure Deb LEAL -Cardiovascular Services Work Phone: Start: 04-24-2025 End: 04-24-[address] Fabian Mcmullen MD Work Phone: -Cardiovascular Services Start: 04-15-2025 End: 04-15-[address] Alexei Wells MD -[facility] Work Phone: Start: 04-15-2025 End: 04-15-[address] Fabian Mcmullen MD Work Phone: -[facility] Start: 03-18-2025 End: 03-18-2025 Follow-up encounter Constance Klein PA-C Work Phone: [facility] Comment on above: Results Start: 03-17-2025 End: 03-17-2025 ambulatory CONSTANCE KLEIN Facility:[facility] Start: 03-17-2025 End: 03-17-2025 Office outpatient visit 25 minutes Constance Klein PA-C Work Phone: [facility] Comment on above: Essential hypertensi on, benign (Primary Dx); LALO (generalized anxiety disorder); Elevated hemoglobin A1c; Insomnia, unspecified type; Age-related osteoporosis without current pathological fracture; 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 dysplasia of both carotid arteries; Nocturia Start: 03-17-2025 End: 03-17-2025 ambulatory FABIAN MCMULLEN Facility:[facility] Start: 03-10-2025 End: 03-10-2025 Follow-up encounter Constance Klein PA-C Work Phone: [facility] Start: 03-06-2025 End: 03-06-2025 ambulatory FABIAN MCMULLEN Facility:[facility] Start: 03-04-2025 End: 03-04-2025 Patient encounter procedure Aleksandar Quigley -[facility] Work Phone: Start: 03-04-2025 End: 03-04-[address] Fabian Mcmullen MD Work Phone: [facility] Work Phone: Start: 03-02-2025 End: 03-02-2025 Refill Fabian Mcmullen MD Work Phone: [facility] [place] Comment on above: Refill Request Start: 02-26-2025 End: 02-26-2025 Chart abstracting Fabian Mcmullen MD Work Phone: [facility] [place] Comment on above: Outside Tpxq-Nzn-YLC Ordered Start: 02-20-2025 End: 02-20-2025 Chart abstracting Fabian Mcmullen MD Work Phone: [facility] Comment on above: Outside Dzcc-Ste-YZE Ordered Start: 02-20-2025 End: 02-20-[address] Fabian Mcmullen MD Work Phone: [facility] Work Phone: Start: 02-20-2025 End: 02-20-2025 Patient encounter procedure Aleksandar Quigley DO -Laboratory Work Phone: Start: 02-20-2025 End: 02-20-2025 Patient encounter procedure Aleksandar Quigley DO -[facility] Work Phone: Start: 02-20-2025 End: 02-20-2025 ambulatory Fabian Mcmullen Facility[facility] Start: 02-20-2025 End: 02-20-2025 ambulatory Fabian Mcmullen Facility:[facility] Start: 02-16-2025 End: 02-17-2025 Follow-up encounter Constance Klein PA-C Work Phone: [facility] [place] Start: 02-16-2025 End: 02-17-2025 Telephone encounter Fabian Mcmullen MD Work Phone: [facility] [place] Start: 02-13-2025 End: 02-13-2025 ambulatory FABIAN MCMULLEN Facility:[facility] Start: 02-12-2025 End: 02-12-2025 Office outpatient visit 25 minutes Constance Klein PA-C Work Phone: [facility] [place] Comment on above: Diarrhea, unspecifie d type (Primary Dx); Diverticulosis; Diverticulitis; History of Clostridium difficile colitis; Anemia, unspecified type; Sore throat Start: 02-12-2025 End: 02-12-2025 ambulatory FABIAN MCMULLEN Facility:[facility] Start: 02-11-2025 End: 02-11-2025 Telephone encounter Fabian Mcmullen MD Work Phone: [facility] [place] Comment on above: Patient Question Start: 02-09-2025 End: 02-09-2025 ambulatory FABIAN MCMULLEN Facility:[facility] Start: 01-29-2025 End: 01-29-2025 Patient encounter procedure Katie Chaudhari APRN.CAMPGROUND ATTENDANT Work Phone: [facility] [place] Comment on above: Diverticulitis (Prim ashlyn Dx); History of Clostridium difficile colitis; Diarrhea, unspecified type Start: 01-29-2025 End: 01-29-2025 ambulatory FABIAN MCMULLEN Facility:[facility] Start: 01-27-2025 End: 01-27-2025 Chart abstracting Sol Lowery MA [facility] [place] Comment on above: ER F/U ([facility] ER ) Start: 01-27-2025 End: 01-27-2025 Telephone encounter Fabian Mcmullen MD Work Phone: [facility] [place] Comment on above: Patient Update Start: 01-26-2025 End: 01-26-2025 Emergency department patient visit Dr. Fabian Mcmullen MD Work Phone: -Emergency Department Work Phone: Start: 12-15-2024 End: 12-15-2024 Refill Fabian Mcmullen MD Work Phone: [address] [place] [address] Comment on above: Refill Request Start: 10-06-2024 End: 10-06-2024 Refill Fabian Mcmullen MD Work Phone: [facility] Comment on above: Refill Request Start: 09-30-2024 End: 09-30-2024 Patient encounter procedure Katie Chaudhari APRN.CAMPGROUND ATTENDANT Work Phone: [facility] [place] Comment on above: URI, acute (Primary Dx) Start: 09-30-2024 End: 09-30-2024 ambulatory FABIAN MCMULLEN Facility:[facility] Start: 09-29-2024 End: 09-30-2024 Telephone encounter Fabian Mcmullen MD Work Phone: [facility] [place] Comment on above: Future Appointment Results Start: 09-26-2024 End: 09-26-2024 ambulatory FABIAN MCMULLEN Facility:[facility] Start: 09-26-2024 End: 09-26-2024 Subsequent hospital visit by physician Bone Density [facility] Work Phone: Radiology Comment on above: Age-related osteopor osis without current pathological fracture [M81.0] Start: 09-22-2024 End: 09-22-2024 ambulatory FABIAN MCMULLEN Facility:[facility] Start: 09-22-2024 End: 09-22-2024 Patient encounter procedure Constance Klein PA-C Work Phone: Family [facility] [place] Comment on above: Essential hypertensi on, benign (Primary Dx) Start: 09-09-2024 End: 09-09-2024 Refill Fabian Mcmullen MD Work Phone: [facility] [place] Comment on above: Refill Request Results Start: 09-08-2024 End: 09-08-2024 Office outpatient visit 25 minutes Constance Klein PA-C Work Phone: [facility] [place] Comment on above: Primary hypertension Start: 09-08-2024 End: 09-08-2024 [facility] Ivana MCMULLEN Facility:[facility] Start: 08-25-2024 End: 08-25-2024 [facility] FABIAN MCMULLEN Facility:[facility] Start: 08-25-2024 End: 08-25-2024 Patient encounter procedure Constance Klein PA-C Work Phone: [facility] [place] Comment on above: Essential hypertensi on, benign (Primary Dx) Start: 08-08-2024 End: 08-08-2024 ambulatory FABIAN MCMULLEN Facility:[facility] Start: 08-08-2024 End: 08-08-2024 Patient encounter procedure Fabian Mcmullen MD Work Phone: [facility] [place] Comment on above: Encounter for [...] encounter Constance Klein PA-C Work Phone: [facility] [place] Comment on above: Results Start: 07-14-2024 End: 07-14-2024 Refill [facility] Comment on above: Patient had refill-e nc not needed Start: 06-06-2024 End: 06-06-2024 Refill Fabian Mcmullen MD Work Phone: [facility] [place] Comment on above: Refill Request Start: 05-26-2024 Refill Fabian obrien MD Work Phone: [facility] [place] Comment on above: Refill Request Start: 05-05-2024 Chart abstracting Sol Lowery [facility] [place] Comment on above: Results ([facility] - ) Start: 04-28-2024 ambulatory Noemi Delacruz RN NURSE BEHAVIORAL MEDICAL DIRECTOR Comment on above: Arm Injury (Bruising , discomfort and swelling of right forearm) Start: 04-28-2024 End: 04-28-2024 Patient encounter procedure Katie Chaudhari APRN.CNP [facility] Comment on above: Hematoma and contusi on (Primary Dx) Start: 03-28-2024 Refill Fab[facility]rien MD [facility] Comment on above: Refill Request Start: 03-12-2024 Refill Fabian obrien MD Work Phone: [facility] Start: 02-07-2024 End: 02-07-2024 Patient encounter procedure Constance Klein PA-C Work Phone: [facility] [place] Comment on above: Essential hypertensi on, benign (Primary Dx); LALO (generalized anxiety disorder); Insomnia, unspecified type; Elevated hemoglobin A1c; Age-related osteoporosis without current pathological fracture; Mild AI (aortic insufficiency) Start: 01-29-2024 Telephone encounter Fabian Mcmullen MD Work Phone: [facility] [place] Comment on above: Results Start: 12-24-2023 Telephone encounter Constance dobbins PA-C Work Phone: [facility] [place] Comment on above: Results Start: 12-20-2023 End: 12-20-2023 Subsequent hospital visit by physician Alexandro [facility] [place] Work Phone: Radiology Comment on above: Viral bronchitis [J2 0.8] Start: 12-20-2023 End: 12-20-2023 Patient encounter procedure Constance Klein PA-C Work Phone: [facility] [place] Comment on above: Viral bronchitis (Pr imary Dx); URI, acute Start: 12-11-2023 Refill Fabian obrien MD Work Phone: [facility] [place] Comment on above: Refill Request Start: 12-04-2023 End: 12-04-2023 ambulatory FABIAN MCMULLEN [facility] Start: 12-04-2023 End: 12-04-2023 Clinical Support Ana Espinal Work Phone: [facility] Comment on above: Sensorineural hearin g loss, bilateral (Primary Dx); Sudden hearing loss, left Start: 12-04-2023 End: 12-04-2023 Office outpatient new 30 minutes Alexei Kruger MD Work Phone: [facility] Comment on above: Sudden hearing loss, left (Primary Dx); Disorder of left eustachian tube Start: 12-03-2023 Orders Only Kristen Garner MA [facility] Start: 11-29-2023 Chart abstracting Fabian mcbride MD Work Phone: [facility] [place] Comment on above: ER Discharge Summary Start: 11-26-2023 End: 11-27-2023 Emergency department patient visit Dr. Fabian Mcmullen Work Phone: [place] [facility]-Emergency Department Work Phone: Start: 11-20-2023 Telephone encounter Fabian Mcmullen MD Work Phone: [facility] [place] Comment on above: Patient Update Start: 11-16-2023 End: 11-16-2023 Patient encounter procedure Fabian Mcmullen MD Work Phone: [facility] Comment on above: Eustachian tube diso rder, left (Primary Dx); Non-recurrent acute serous otitis media of left ear Start: 09-04-2023 Telephone encounter Sol Lowery MA [facility] Comment on above: Insurance Authorizat ion (Potassium chloride ) Start: 08-23-2023 Telephone encounter Fabian Mcmullen MD Work Phone: [facility] Comment on above: Medication Problem ( Out of stock, changing to a new pharmacy) Start: 08-08-2023 Chart abstracting Fabian mcbride MD Work Phone: [facility] Start: 08-08-2023 End: 08-08-2023 Patient encounter procedure Fabian Mcmullen MD Work Phone: [facility] Work Phone: Comment on above: Encounter for Medica re annual wellness exam (Primary Dx); Essential hypertension, benign; Elevated hemoglobin A1c; 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 dysplasia of both carotid arteries (HCC); LALO (generalized anxiety disorder); Insomnia, unspecified type; Need for vaccination Start: 08-07-2023 Non-patient / Non-visit Dr. Km Mcmullen Work Phone: [facility] Work Phone: Start: 08-07-2023 End: 08-07-[address] Fabian Mcmullen Work Phone: [facility] Work Phone: Start: 08-07-2023 End: 08-07-[address] Fabian Mcmullen Work Phone: [facility]-Cat Scan, [facility] Work Phone: Start: 08-03-2023 End: 08-03-2023 Subsequent hospital visit by physician Xr [facility] Work Phone: Radiology Comment on above: Acute cough [R05.1] Start: 08-03-2023 End: 08-03-2023 Patient encounter procedure Daniela Mcdowell PA-C Work Phone: [facility] Comment on above: Bronchitis (Primary Dx); Nasal congestion Start: 07-11-2023 Chart abstracting Fabian mcbride MD Work Phone: [facility] Comment on above: outside cardiology Start: 07-11-2023 End: 07-11-[address] Fabian Mcmullen Work Phone: [facility] Work Phone: Start: 06-25-2023 Refill Fabian obrien MD Work Phone: [facility] Comment on above: Refill Request Start: 06-14-2023 Refill Fabian obrien MD Work Phone: [facility] Comment on above: Refill Request Start: 05-14-2023 Telephone encounter Katie odonnell ENGLISH COMPOSITION TEACHER.CAMPGROUND ATTENDANT Work Phone: [facility] Comment on above: FMLA Paperwork; Form s (Short term disability paperwork ) Start: 05-14-2023 End: 05-14-2023 Patient encounter procedure Katie Chaudhari ENGLISH COMPOSITION TEACHER.CAMPGROUND ATTENDANT Work Phone: [facility] Comment on above: C. difficile colitis (Primary Dx) Start: 05-11-2023 Telephone encounter Fabian Mcmullen MD Work Phone: [facility] Comment on above: Patient Question Start: 05-01-2023 Non-patient / Non-visit Dr. Km Mcmullen Work Phone: [facility] Work Phone: Start: 04-30-2023 Non-patient / Non-visit Dr. Km Mcmullen Work Phone: [facility] Work Phone: Start: 04-29-2023 Non-patient / Non-visit Dr. Km Mcmullen Work Phone: [facility] Work Phone: Start: 04-28-2023 Non-patient / Non-visit Dr. Km Mcmullen Work Phone: [facility] Work Phone: Start: 04-27-2023 Chart abstracting Fabian mcbride MD Work Phone: [facility] [place] Start: 04-27-2023 Non-patient / Non-visit Dr. Km Mcmullen Work Phone: [facility] Work Phone: Start: 04-27-2023 End: 05-01-2023 Evaluation and management of inpatient Dr. Fabian Mcmullen [facility] Work Phone: Start: 04-25-2023 Telephone encounter Fabian Mcmullen MD Work Phone: [facility] Comment on above: Patient Question Start: 04-23-2023 End: 04-23-2023 Patient encounter procedure Fabian Mcmullen MD Work Phone: [facility] Comment on above: Diverticulitis (Prim ashlyn Dx); Diverticulosis Start: 04-20-2023 Chart abstracting [facility] Start: 04-19-2023 Chart abstracting Fabian mcbride MD Work Phone: [facility] Comment on above: ER consult Start: 04-19-2023 End: 04-19-2023 Emergency department patient visit Dr. Fabian Mcmullen Work Phone: [facility] Work Phone: Start: 04-18-2023 End: 04-18-[address] Fabian Mcmullen Work Phone: [facility] Work Phone: Start: 03-26-2023 End: 03-26-[address] Fabian Mcmullen Work Phone: [facility] Work Phone: Start: 03-26-2023 End: 03-26-[address] Fabian Mcmullen Work Phone: [facility] Start: 03-19-2023 Chart abstracting Fabian mcbride MD Work Phone: [facility] Comment on above: Consult (Vascular/la bs ) Start: 03-15-2023 End: 03-15-[address] Fabian Mcmullen Work Phone: [facility] Work Phone: Start: 03-15-2023 End: 03-15-[address] Fabian Mcmullen Work Phone: [facility] Start: 03-15-2023 End: 03-15-[address] Fabian Mcmullen Work Phone: [facility] Start: 02-27-2023 End: 02-27-2023 Subsequent hospital visit by physician Screen Mammo [facility] Comment on above: Encounter for screen ing mammogram for breast cancer [Z12.31] Start: 02-09-2023 End: 02-09-2023 Office outpatient visit 25 minutes Constance Klein PA-C Work Phone: [facility] Comment on above: Essential hypertensi on, benign (Primary Dx); Primary hypertension; 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 dysplasia of both carotid arteries (HCC); Primary insomnia; Recurrent cold sores Start: 01-25-2023 Telephone encounter Katie odonnell APRN.CNP Work Phone: [facility] Comment on above: Results Start: 01-24-2023 End: 01-24-2023 Patient encounter procedure Fabian Mcmullen MD Work Phone: [facility] Comment on above: Essential hypertensi on, benign (Primary Dx); Elevated hemoglobin A1c; LALO (generalized anxiety disorder); 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 dysplasia of both carotid arteries (HCC); Insomnia, unspecified type; Advance directive discussed with patient Start: 01-16-2023 End: 01-16-2023 Patient encounter procedure Katie Chaudhari ENGLISH COMPOSITION TEACHER.CAMPGROUND ATTENDANT Work Phone: [facility] [place] Comment on above: Seasonal allergic rh initis, unspecified trigger (Primary Dx); Sore throat Start: 01-02-2023 Refill Nikky darnell ENGLISH COMPOSITION TEACHER.CAMPGROUND ATTENDANT Work Phone: [facility] [place] Comment on above: Refill Request Start: 12-21-2022 End: 12-21-2022 Patient encounter procedure Fabian Mcmullen MD Work Phone: [facility] [place] Comment on above: Bacterial sinusitis (Primary Dx) Start: 12-15-2022 Telephone encounter Fabian Mcmullen MD Work Phone: [facility] [place] Comment on above: Patient Question; Pa tient Update Start: 12-11-2022 ambulatory Adrian Brice RN NURSE BEHAVIORAL MEDICAL DIRECTOR Comment on above: Sore Throat (Strep e xposure/) Start: 12-11-2022 End: 12-11-2022 Patient encounter procedure Nikky Lopez ENGLISH COMPOSITION TEACHER.CAMPGROUND ATTENDANT Work Phone: [facility] [place] Comment on above: Sore throat (Primary Dx); Strep throat exposure; Sinus pressure; Right ear pain; Non-recurrent acute serous otitis media of right ear Start: 11-13-2022 Refill Fabian obrien MD Work Phone: [facility] Comment on above: Refill Request Start: 10-20-2022 Refill Fabian obrien MD Work Phone: [address] [place] [address] Comment on above: Refill Request Start: 10-19-2022 Refill Joelle Mccarthy ENGLISH COMPOSITION TEACHER.CAMPGROUND ATTENDANT Work Phone: [facility] [place] Comment on above: Refill Request Start: 09-08-2022 Telephone encounter Joelle benites ENGLISH COMPOSITION TEACHER.CAMPGROUND ATTENDANT Work Phone: [facility] [place] Comment on above: Results Start: 09-06-2022 End: 09-06-2022 Patient encounter procedure Joelle Katz ENGLISH COMPOSITION TEACHER.CAMPGROUND ATTENDANT Work Phone: [facility] [place] Comment on above: Primary hypertension (Primary Dx); Headache, unspecified headache type; Acute cough Start: 09-04-2022 Telephone encounter Fabian Mcmullen MD Work Phone: [facility] [place] Comment on above: Results Start: 08-31-2022 Refill Joelle Ashleymaddie goldman ENGLISH COMPOSITION TEACHER.CAMPGROUND ATTENDANT Work Phone: [facility] [place] Comment on above: Refill Request Start: 08-09-2022 End: 08-09-2022 Patient encounter procedure Joelle Ashleymarc ENGLISH COMPOSITION TEACHER.CAMPGROUND ATTENDANT Work Phone: [facility] [place] Comment on above: Essential hypertensi on, benign (Primary Dx); Encounter for immunization Start: 08-03-2022 Telephone encounter Fabian Mcmullen MD Work Phone: [facility] [place] Comment on above: Results Start: 07-30-2022 Telephone encounter Fabian Mcmullen MD Work Phone: [facility] [place] Comment on above: Results Start: 07-28-2022 Telephone encounter Fabian Mcmullen MD Work Phone: [facility] [place] Comment on above: Question Start: 07-27-2022 Telephone encounter Fabian Mcmullen MD Work Phone: [facility] [place] Comment on above: Results Start: 07-26-2022 End: 07-26-2022 Patient encounter procedure Fabian Mcmullen MD Work Phone: [facility] [place] Comment on above: Well adult exam ([place] adrian Dx); Primary insomnia; Essential hypertension, benign; Elevated hemoglobin A1c; LALO (generalized anxiety disorder); Chronic allergic rhinitis; Osteopenia, unspecified location; Advance directive discussed with patient; Encounter for immunization Start: 07-26-2022 End: 07-26-2022 Patient encounter status Fabian Mcmullen MD Work Phone: [facility] [place] Start: 07-18-2022 Telephone encounter Fabian Mcmullen MD Work Phone: [facility] [place] Comment on above: Results Start: 07-17-2022 ambulatory Fabian obrien MD Work Phone: [facility] [place] Comment on above: Dizziness Start: 06-14-2022 ambulatory Fabian obrien MD Work Phone: [facility] [place] Start: 05-24-2022 Refill Fabian obrien MD Work Phone: [facility] Comment on above: Refill Request Start: 02-06-2022 Refill Fabian obrien MD Work Phone: [facility] Comment on above: Refill Request (NEED S 90 DAYS) Start: 01-11-2022 End: 01-11-2022 [facility] Start: 01-07-2022 Telephone encounter Fabian Mcmullen MD Work Phone: [facility] Comment on above: Results Start: 09-12-2021 End: 09-12-2021 Subsequent hospital visit by physician [facility] Work Phone: Radiology Comment on above: Cough [R05.9] Start: 07-06-2021 Patient encounter status Paco Mcmullen MD Work Phone: [facility] Work Phone: Start: 07-21-2017 Patient encounter status Paco Mcmullen MD Work Phone: [facility] Work Phone: Procedures Date Procedure Procedure Detail Performing Clinician Start: 05-22-2025 CT angiography of he ad and neck Dr. Fabian Mcmullen MD Work Phone: Start: 02-20-2025 Albumin/Globulin ratio Dr. Fabian Mcmullen [...] Radiologic exam ches t 2 views Daniela Mcdowell PANadine Work Phone: Start: 07-30-2023 Lipid 1996 panel - S larry or Plasma Daniela Mcdowell PA-C Work Phone: Start: 04-28-2023 Clostridium difficil e [...] 12-11-2022 STREP A MOLECULAR (POC) Nikky Lopez ENGLISH COMPOSITION TEACHER.CAMPGROUND ATTENDANT Work Phone: Start: 08-09-2022 PFIZER-BIONTECH COVI D-19 BIVALENT BOOSTER VACCINE, AGE 12+ YR Joelle Katz ENGLISH COMPOSITION TEACHER.CAMPGROUND ATTENDANT Work Phone: Start: 01-11-2022 CT of head without contrast Start: 09-12-2021 Radiologic exam ches t 2 views Cristina Lezama ENGLISH COMPOSITION TEACHER.CAMPGROUND ATTENDANT Work Phone: Start: 05-04-2021 Mammography Fabian mcbride MD Work Phone: Start: 11-23-2020 Colonoscopy Fabian mcbride MD Work Phone: History of tonsillectomy S/P tonsillectom y Plan of Treatment Date Care Activity Detail Author Start: 07-30-2029 Lipid panel Lipid Screening [facility] Start: 07-30-2028 Lipid 1996 panel - S larry or Plasma Lipid Screening [facility] Start: 07-30-2028 Lipid panel Lipid Screening [facility] Start: 02-10-2028 Diabetes Screening Diabetes Screenin g [facility] Start: 01-25-2028 Lipid 1996 panel - S larry or Plasma Lipid Screening [facility] Start: 01-25-2028 LIPID SCREEN LIPID SCREEN [facility] Start: 07-30-2027 Diabetes Screening Diabetes Screenin g [facility] Start: 07-29-2027 LIPID SCREEN LIPID SCREEN [facility] Start: 01-29-2027 Diabetes Screening Diabetes Screenin g [facility] Start: 09-26-2026 Screening for osteoporosis Bone Dens ity Screening [facility] Start: 07-30-2026 Diabetes Screening Diabetes Screenin g [facility] Start: 07-11-2026 LIPID SCREEN LIPID SCREEN [facility] Start: 05-26-2026 Annual PCP Team Gear Setter henry Disease Visit Annual PCP Team Chronic Disease Visit [facility] Start: 05-11-2026 Annual PCP Team Gear Setter henry Disease Visit Annual PCP Team Chronic Disease Visit [facility] Start: 05-07-2026 DIABETES SCREEN DIABETES SCREEN [facility] Start: 05-07-2026 Diabetes Screening Diabetes Screenin g [facility] Start: 03-17-2026 Annual PCP Team Gear Setter henry Disease Visit Annual PCP Team Chronic Disease Visit [facility] Start: 03-17-2026 BP Controlled (<130/80) BP Controlle d (<130/80) [facility] Start: 02-12-2026 Annual PCP Team Gear Setter henry Disease Visit Annual PCP Team Chronic Disease Visit [facility] Start: 02-12-2026 BP Controlled (<130/80) BP Controlle d (<130/80) [facility] Start: 01-29-2026 Annual PCP Team Gear Setter henry Disease Visit Annual PCP Team Chronic Disease Visit [facility] Start: 01-29-2026 BP Controlled (<130/80) BP Controlle d (<130/80) [facility] Start: 01-24-2026 DIABETES SCREEN DIABETES SCREEN [facility] Start: 11-24-2025 COLORECTAL CANCER SCREENING COLORECTAL CANCER SCREENING [facility] Start: 11-24-2025 FECAL OCCULT BLOOD FECAL OCCULT BLOO D [facility] Start: 11-24-2025 Screening for malign ant neoplasm of colon [facility] Start: 09-30-2025 Annual PCP Team Gear Setter henry Disease Visit Annual PCP Team Chronic Disease Visit [facility] Start: 09-23-2025 End: 09-23-2025 Patient encounter procedure [facility] [place] Comment on above: Medicare Wellness Start: 09-22-2025 Annual PCP Team Gear Setter henry Disease Visit Annual PCP Team Chronic Disease Visit [facility] Start: 09-22-2025 BP Controlled (<130/80) BP Controlle d (<130/80) [facility] Start: 09-08-2025 Annual PCP Team Gear Setter henry Disease Visit Annual PCP Team Chronic Disease Visit [facility] Start: 09-08-2025 BP Controlled (<130/80) BP Controlle d (<130/80) [facility] Start: 08-25-2025 Annual PCP Team Gear Setter henry Disease Visit Annual PCP Team Chronic Disease Visit [facility] Start: 08-25-2025 BP Controlled (<130/80) BP Controlle d (<130/80) [facility] Start: 08-08-2025 Annual PCP Team Gear Setter henry Disease Visit Annual PCP Team Chronic Disease Visit [facility] Start: 08-08-2025 Depression Screening Depression Scre ening [facility] Start: 08-08-2025 Medicare Annual Well ness Visit Medicare Annual Wellness Visit [facility] Start: 07-29-2025 DIABETES SCREEN DIABETES SCREEN [facility] Start: 07-17-2025 DIABETES SCREEN DIABETES SCREEN [facility] Start: 07-15-2025 End: 07-15-2025 ambulatory 07/15/2025 9:45 AM EDT OT/PT/Speech Visit [facility] [address] [place] [address] Taz, Vladimir, PT Headache, unspecified headache type [R51.9]; Neck tightness [R29.898] [facility] Comment on above: Headache, unspecifie d headache type [R51.9]; Neck tightness [R29.898] Start: 07-08-2025 End: 07-08-2025 ambulatory 07/08/2025 10:30 AM EDT OT/PT/Speech Visit [facility] [address] [place] [address] Taz, Vladimir, PT Headache, unspecified headache type [R51.9]; Neck tightness [R29.898] [facility] Comment on above: Headache, unspecifie d headache type [R51.9]; Neck tightness [R29.898] Start: 07-07-2025 End: 07-07-2025 Patient encounter procedure 07/07/2025 8:30 AM EDT Office Visit Neurology [address] [facility] [place] [address] Laisha Nevarez PA-C [address] [facility] [place] [address] Headache, unspecified headache type [R51.9]; Temporal pain [R51.9] Neurology Comment on above: Headache, unspecifie d headache type [R51.9]; Temporal pain [R51.9] Start: 06-30-2025 End: 06-30-2025 ambulatory 06/30/2025 10:15 AM EDT OT/PT/Speech Visit [facility] [address] [place] [address] Jada Castellanos, ASSISTANT SHIFT SUPERVISOR [address] [place] [address] Headache, unspecified headache type [R51.9]; Neck tightness [R29.898] [facility] Comment on above: Headache, unspecifie d headache type [R51.9]; Neck tightness [R29.898] Start: 06-26-2025 End: 06-26-2025 ambulatory 06/26/2025 10:30 AM EDT OT/PT/Speech Visit [facility] [address] [place] [address] [place] [address] [address] [place], [place] [id number] Headache, unspecified headache type [R51.9]; Neck tightness [R29.898] [facility] Comment on above: Headache, unspecifie d headache type [R51.9]; Neck tightness [R29.898] Start: 06-12-2025 End: 09-11-2025 CBC W Auto Differential panel - Blood COMPLETE BLOOD COUNT AND DIFFERENTIAL Lab Routine Anemia, unspecified type Expected: 06/12/2025, Expires: 09/11/2025 [facility] Comment on above: Expected: 06/12/2025 , Expires: 09/11/2025 Start: 06-12-2025 End: 09-11-2025 Cobalamin (Vitamin B12) [Mass/volume] in Serum or Plasma VITAMIN B12 Lab Routine Anemia, unspecified type Expected: 06/12/2025, Expires: 09/11/2025 [facility] Work Phone: Comment on above: Expected: 06/12/2025 , Expires: 09/11/2025 Start: 06-12-2025 End: 09-11-2025 Ferritin [Mass/volume] in Serum or Plasma FERRITIN Lab Routine Anemia, unspecified type Expected: 06/12/2025, Expires: 09/11/2025 [facility] Comment on above: Expected: 06/12/2025 , Expires: 09/11/2025 Start: 06-12-2025 End: 09-11-2025 Folate [Mass/volume] in Serum or Plasma FOLATE, SERUM Lab Routine Anemia, unspecified type Expected: 06/12/2025, Expires: 09/11/2025 [facility] Comment on above: Expected: 06/12/2025 , Expires: 09/11/2025 Start: 06-12-2025 End: 09-11-2025 Iron and Iron binding capacity panel - Serum or Plasma IRON AND TIBC Lab Routine Anemia, unspecified type Expected: 06/12/2025, Expires: 09/11/2025 [facility] Comment on above: Expected: 06/12/2025 , Expires: 09/11/2025 Start: 06-09-2025 End: 06-09-2025 ambulatory 06/09/2025 10:00 AM EDT OT/PT/Speech Visit [facility] [address] [place] [address] Vladimir Mcghee, PT Headache, unspecified headache type [R51.9]; Neck tightness [R29.898] [facility] Comment on above: Headache, unspecifie d headache type [R51.9]; Neck tightness [R29.898] Start: 05-25-2025 End: 05-25-2025 Patient encounter procedure 05/25/2025 11:00 AM EDT Office Visit [facility] [address] [place] [address] Fabian Mcmullen MD [address] [place] [address] 2 week f/u right temporal CLAYTON [facility] Comment on above: 2 week f/u right tem poral [place] Start: 05-11-2025 End: 08-10-2025 C reactive protein [Mass/volume] in Serum or Plasma [facility] Work Phone: Comment on above: Expected: 05/11/2025 , Expires: 08/10/2025 Start: 04-28-2025 Annual PCP Team Gear Setter henry Disease Visit Annual PCP Team Chronic Disease Visit [facility] Start: 03-19-2025 End: 06-18-2025 CBC W Auto Differential panel - Blood COMPLETE BLOOD COUNT AND DIFFERENTIAL Lab Routine Anemia, unspecified type Expected: 03/19/2025, Expires: 06/18/2025 [facility] Work Phone: Comment on above: Expected: 03/19/2025 , Expires: 06/18/2025 Start: 03-17-2025 End: 06-16-2025 Urinalysis complete panel - Urine [facility] Work Phone: Comment on above: Expected: 03/17/2025 , Expires: 06/16/2025 Start: 03-17-2025 End: 03-17-2025 Patient encounter procedure 03/17/2025 12:00 PM EDT Office Visit [facility] [place] [address] [place], [place] [id number] Constance Klein PA-C [address] [place] [address] routine f/u and recheck GI issues [facility] Comment on above: routine f/u and rech melvin GI issues Start: 02-20-2025 Celiac disease screen [facility] Start: 02-20-2025 Gastrin [Mass/volume ] in Serum or Plasma [facility] Start: 02-20-2025 Immunoglobulin measurement [facility] Start: 02-20-2025 Serum immunofixation [facility] Start: 02-20-2025 [facility] Start: 02-12-2025 End: 05-14-2025 Cobalamin (Vitamin B12) [Mass/volume] in Serum or Plasma VITAMIN B12 Lab Routine Anemia, unspecified type Expected: 02/12/2025, Expires: 05/14/2025 [facility] Comment on above: Expected: 02/12/2025 , Expires: 05/14/2025 Start: 02-12-2025 End: 05-14-2025 Ferritin [Mass/volume] in Serum or Plasma FERRITIN Lab Routine Anemia, unspecified type Expected: 02/12/2025, Expires: 05/14/2025 [facility] Comment on above: Expected: 02/12/2025 , Expires: 05/14/2025 Start: 02-12-2025 End: 05-14-2025 Folate [Mass/volume] in Serum or Plasma FOLATE, SERUM Lab Routine Anemia, unspecified type Expected: 02/12/2025, Expires: 05/14/2025 [facility] Comment on above: Expected: 02/12/2025 , Expires: 05/14/2025 Start: 02-12-2025 End: 05-14-2025 Iron and Iron binding capacity panel - Serum or Plasma IRON AND TIBC Lab Routine Anemia, unspecified type Expected: 02/12/2025, Expires: 05/14/2025 [facility] Comment on above: Expected: 02/12/2025 , Expires: 05/14/2025 Start: 02-12-2025 End: 05-14-2025 Thyrotropin [Units/volume] in Serum or Plasma THYROID STIMULATING HORMONE Lab Routine Diarrhea, unspecified type Expected: 02/12/2025, Expires: 05/14/2025 [facility] Comment on above: Expected: 02/12/2025 , Expires: 05/14/2025 Start: 02-12-2025 End: 02-12-2025 Patient encounter procedure 02/12/2025 1:20 PM EDT Office Visit [facility] [place] [address] [place] [address] Constance Klein PA-C [address] [facility] [place] [address] 6 month follow up [facility] [place] Comment on above: 6 month follow up Start: 02-06-2025 Annual PCP Team Gear Setter 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 Disease Visit Annual PCP Team Chronic Disease Visit [facility] Start: 02-06-2025 End: 02-06-2025 Patient encounter procedure 02/06/2025 12:20 PM EDT Office Visit [facility] [place] [address] [facility] [place] [address] Constance Klein PA-C [address] [facility] [place] [address] 6 month follow up [facility] [place] Comment on above: 6 month follow up Start: 01-30-2025 End: 01-30-2025 Patient encounter procedure 01/30/2025 9:40 AM EDT Office Visit [facility] [place] [address] [place] [address] Katie Chaudhari APRN.CAMPGROUND ATTENDANT [address] [facility] [place] [address] ER F/U ([facility] 01/26/25-diverticulitis) [facility] [place] Comment on above: ER F/U ([facility] 01/26/25- diverticulitis) Start: 01-26-2025 End: 01-26-2025 [facility] Start: 01-26-2025 Computed tomography of abdomen and pelvis with intravenous contrast Abdomen/Pelvis W IV Cont ONLY [facility] Start: 01-26-2025 CT Abdomen and Pelvi s W contrast IV [facility] Start: 01-23-2025 End: 04-24-2025 25-hydroxyvitamin D3 [Mass/volume] in Serum or Plasma VITAMIN D 25 HYDROXY Lab Routine High vitamin D level Expected: 01/23/2025, Expires: 04/24/2025 [facility] Comment on above: Expected: 01/23/2025 , Expires: 04/24/2025 Start: 01-23-2025 End: 04-24-2025 Hemoglobin A1c in Blood HEMOGLOBIN A1C Lab Routine Elevated hemoglobin A1c Expected: 01/23/2025, Expires: 04/24/2025 [facility] Comment on above: Expected: 01/23/2025 , Expires: 04/24/2025 Start: 01-23-2025 End: 04-24-2025 LIPID PANEL, NONFASTING LIPID PANEL, NONFASTING Lab Routine Essential hypertension, benign 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 dysplasia of both carotid arteries (HCC) Expected: 01/23/2025, Expires: 04/24/2025 [facility] Comment on above: Expected: 01/23/2025 , Expires: 04/24/2025 Start: 01-06-2025 DIABETES SCREEN DIABETES SCREEN [facility] Start: 12-19-2024 Annual PCP Team Gear Setter henry Disease Visit Annual PCP Team Chronic Disease Visit [facility] Start: 12-19-2024 BP Controlled (<130/80) BP Controlle d (<130/80) [facility] Start: 11-16-2024 Annual PCP Team Gear Setter henry Disease Visit Annual PCP Team Chronic Disease Visit [facility] Start: 10-15-2024 Advance Directive Discussion Advance Directive Discussion [facility] Start: 09-30-2024 End: 09-30-2024 Patient encounter procedure 09/30/2024 10:20 AM EST Office Visit [facility] [place] [address] [place] [id number] Katie Chaudhari APRN.[facility] [address], [place] [id number] cough has decreased, sore throat, loosing voice. x 4 days [facility] [place] Comment on above: cough has decreased, sore throat, loosing voice. x 4 days Start: 09-26-2024 End: 09-26-2024 Patient encounter procedure 09/26/2024 1:05 PM EST Appointment Radiology [address] [place] [id number] Age-related osteoporosis without current pathological fracture [M81.0] Radiology Comment on above: Age-related osteopor osis without current pathological fracture [M81.0] Start: 09-22-2024 End: 09-22-2024 Patient encounter procedure 09/22/2024 11:40 AM EST Office Visit [facility] [place] [address] [place] [address] Constance Klein PA-C [address] [place] [address] 2 wk BP check [facility] [place] Comment on above: 2 wk BP check Start: 09-08-2024 End: 09-08-2024 Patient encounter procedure 09/08/2024 11:40 AM EST Office Visit [facility] [place] [address] [place] [address] Constance Klein PA-C [address] [place] [address] 2 week bp f/u [facility] [place] Comment on above: 2 week bp f/u Start: 09-05-2024 End: 12-05-2024 25-hydroxyvitamin D3 [Mass/volume] in Serum or Plasma VITAMIN D 25 HYDROXY Lab Routine High vitamin D level Expected: 09/05/2024, Expires: 12/05/2024 [facility] Comment on above: Expected: 09/05/2024 , Expires: 12/05/2024 Start: 09-05-2024 End: 12-05-2024 HEP ACUTE PANEL/RNA HEP ACUTE PANEL/RNA Lab Routine Elevated LFTs Expected: 09/05/2024, Expires: 12/05/2024 [facility] Comment on above: Expected: 09/05/2024 , Expires: 12/05/2024 Start: 09-05-2024 End: 12-05-2024 Hepatic function 2000 panel - Serum or Plasma HEPATIC FUNCTION PNL Lab Routine Elevated LFTs Expected: 09/05/2024, Expires: 12/05/2024 [facility] Comment on above: Expected: 09/05/2024 , Expires: 12/05/2024 Start: 09-04-2024 Screening for osteoporosis Bone Dens ity Screening [facility] Start: 08-25-2024 End: 08-25-2024 Patient encounter procedure 08/25/2024 11:40 AM EST Office Visit [facility] [place] [address] [place] [id number] Constance Klein PA-C [address] [place] [address] 2 week follow up - BP [facility] [place] Comment on above: 2 week follow up - B P Start: 08-08-2024 End: 11-07-2024 25-hydroxyvitamin D3 [Mass/volume] in Serum or Plasma VITAMIN D 25 HYDROXY Lab Routine Age-related osteoporosis without current pathological fracture Expected: 08/08/2024, Expires: 11/07/2024 [facility] Comment on above: Expected: 08/08/2024 , Expires: 11/07/2024 Start: 08-08-2024 Annual PCP Team Gear Setter henry Disease Visit Annual PCP Team Chronic Disease Visit [facility] Start: 08-08-2024 BP Controlled (<130/80) BP Controlle d (<130/80) [facility] Start: 08-08-2024 End: 11-07-2024 CBC W Auto Differential panel - Blood COMPLETE BLOOD COUNT AND DIFFERENTIAL Lab Routine Essential hypertension, benign Mild AI (aortic insufficiency) Expected: 08/08/2024, Expires: 11/07/2024 [facility] Comment on above: Expected: 08/08/2024 , Expires: 11/07/2024 Start: 08-08-2024 End: 11-07-2024 Comprehensive metabolic 2000 panel - Serum or Plasma COMPREHENSIVE METABOLIC PANEL Lab Routine Essential hypertension, benign Expected: 08/08/2024, Expires: 11/07/2024 [facility] Work Phone: Comment on above: Expected: 08/08/2024 , Expires: 11/07/2024 Start: 08-08-2024 End: 11-07-2024 Hemoglobin A1c in Blood HEMOGLOBIN A1C Lab Routine Elevated hemoglobin A1c Expected: 08/08/2024, Expires: 11/07/2024 [facility] Comment on above: Expected: 08/08/2024 , Expires: 11/07/2024 Start: 08-08-2024 End: 01-24-2025 LIPID PANEL, NONFASTING LIPID PANEL, NONFASTING Lab Routine Essential hypertension, benign Elevated hemoglobin A1c Mild AI (aortic insufficiency) Expected: 08/08/2024, Expires: 11/07/2024 [facility] Comment on above: Expected: 08/08/2024 , Expires: 11/07/2024 Start: 08-08-2024 RSV Vaccine (1 - 1-d ose 60+ series) RSV Vaccine (1 - 1-dose 60+ series) [facility] Comment on above: Postponed from 10/11 (Insurance Coverage) Start: 08-08-2024 RSV Vaccine (1 - 1-d ose 75+ series) RSV Vaccine (1 - 1-dose 75+ series) [facility] Comment on above: Postponed from 10/11 (Insurance Coverage) Start: 08-08-2024 Urine microalbumin profile DTa P,Tdap,Td Vaccine (2 - Td or Tdap) [facility] Comment on above: Postponed from 10/31 (Insurance Coverage) Start: 08-08-2024 End: 08-08-2024 Patient encounter procedure 08/08/2024 11:40 AM EDT Office Visit [facility] [place] [address] [place], [place] [phone] Fabian Mcmullen MD [address] [place] [address] Medicare Wellness Exam [facility] [place] Comment on above: Medicare Wellness Ex am Start: 08-03-2024 BP Controlled (<130/80) BP Controlle d (<130/80) [facility] Start: 06-15-2024 Covid-19 Vaccine () Covid-19 Vaccine () [facility] Start: 06-15-2024 Covid-19 Vaccine () Covid-19 Vaccine () [facility] Start: 05-14-2024 ANNUAL PCP TEAM NETWORK SUPPORT MANAGER HENRY DISEASE VISIT ANNUAL PCP TEAM CHRONIC DISEASE VISIT [facility] Start: 05-14-2024 BP CONTROLLED (<130/80) BP CONTROLLE D (<130/80) [facility] Start: 04-23-2024 ANNUAL PCP TEAM NETWORK SUPPORT MANAGER HENRY DISEASE VISIT ANNUAL PCP TEAM CHRONIC DISEASE VISIT [facility] Start: 04-23-2024 BP CONTROLLED (<130/80) BP CONTROLLE D (<130/80) [facility] Start: 03-08-2024 ANNUAL PCP TEAM NETWORK SUPPORT MANAGER HENRY DISEASE VISIT ANNUAL PCP TEAM CHRONIC DISEASE VISIT [facility] Start: 03-08-2024 BP CONTROLLED (<130/80) BP CONTROLLE D (<130/80) [facility] Start: 03-04-2024 End: 03-04-2024 Patient encounter procedure 03/04/2024 2:15 PM EDT Office Visit [facility] [address] [place] [id number] Alexei Kruger MD [address] [place] [id number] [facility] Start: 02-28-2024 [facility] Start: 02-10-2024 ANNUAL PCP TEAM NETWORK SUPPORT MANAGER HENRY DISEASE VISIT ANNUAL PCP TEAM CHRONIC DISEASE VISIT [facility] Start: 01-25-2024 ANNUAL PCP TEAM NETWORK SUPPORT MANAGER HENRY DISEASE VISIT ANNUAL PCP TEAM CHRONIC DISEASE VISIT [facility] Start: 01-25-2024 End: 04-25-2024 Hemoglobin A1c in Blood HGB A1C Lab Routine Elevated hemoglobin A1c Expected: 01/25/2024, Expires: 04/25/2024 [facility] Work Phone: Comment on above: Expected: 01/25/2024 , Expires: 04/25/2024 Start: 01-17-2024 ANNUAL PCP TEAM NETWORK SUPPORT MANAGER HENRY DISEASE VISIT ANNUAL PCP TEAM CHRONIC DISEASE VISIT [facility] Start: 01-17-2024 BP CONTROLLED (<130/80) BP CONTROLLE D (<130/80) [facility] Start: 12-22-2023 ANNUAL PCP TEAM NETWORK SUPPORT MANAGER HENRY DISEASE VISIT ANNUAL PCP TEAM CHRONIC DISEASE VISIT [facility] Start: 12-22-2023 BP CONTROLLED (<130/80) BP CONTROLLE D (<130/80) [facility] Start: 12-11-2023 ANNUAL PCP TEAM NETWORK SUPPORT MANAGER HENRY DISEASE VISIT ANNUAL PCP TEAM CHRONIC DISEASE VISIT [facility] Start: 12-11-2023 BP CONTROLLED (<130/80) BP CONTROLLE D (<130/80) [facility] Start: 12-04-2023 End: 12-04-2023 Patient encounter procedure [facility] Start: 11-27-2023 Enteric Bacteriology Enteric Bacteri ology [facility] Start: 11-27-2023 [facility] Start: 11-26-2023 Enteric precautions [facility] Start: 10-15-2023 Advance Directive Discussion Advance Directive Discussion [facility] Start: 10-15-2023 Behavioral Health Screening Behavioral Health Screening [facility] Start: 10-15-2023 Depression Assessment Depression Ass essment [facility] Start: 2023 RSV Vaccine (1 - 1-d ose 75+ series) RSV Vaccine (1 - 1-dose 75+ series) [facility] Start: 09-06-2023 ANNUAL PCP TEAM NETWORK SUPPORT MANAGER HENRY DISEASE VISIT ANNUAL PCP TEAM CHRONIC DISEASE VISIT [facility] Start: 08-09-2023 ANNUAL PCP TEAM NETWORK SUPPORT MANAGER HENRY DISEASE VISIT ANNUAL PCP TEAM CHRONIC DISEASE VISIT [facility] Start: 07-26-2023 ANNUAL PCP TEAM NETWORK SUPPORT MANAGER HENRY DISEASE VISIT ANNUAL PCP TEAM CHRONIC DISEASE VISIT [facility] Start: 07-17-2023 ANNUAL PCP TEAM NETWORK SUPPORT MANAGER HENRY DISEASE VISIT ANNUAL PCP TEAM CHRONIC DISEASE VISIT [facility] Start: 07-17-2023 BP CONTROLLED (<130/80) BP CONTROLLE D (<130/80) [facility] Start: 07-13-2023 End: 09-12-2023 Comprehensive metabolic 2000 panel - Serum or Plasma COMP METABOLIC PANEL Lab Routine Essential hypertension, benign Elevated hemoglobin A1c Expected: 07/13/2023, Expires: 09/12/2023 [facility] Work Phone: Comment on above: Expected: 07/13/2023 , Expires: 09/12/2023 Start: 07-13-2023 End: 09-12-2023 Hemoglobin A1c in Blood HGB A1C Lab Routine Elevated hemoglobin A1c Expected: 07/13/2023, Expires: 09/12/2023 [facility] Work Phone: Comment on above: Expected: 07/13/2023 , Expires: 09/12/2023 Start: 07-13-2023 End: 09-12-2023 LIPID PANEL, NONFASTING LIPID PANEL, NONFASTING Lab Routine Essential hypertension, benign 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 dysplasia of both carotid arteries (HCC) Expected: 07/13/2023, Expires: 09/12/2023 [facility] Work Phone: Comment on above: Expected: 07/13/2023 , Expires: 09/12/2023 Start: 07-13-2023 End: 09-12-2023 Urinalysis complete panel - Urine URINALYSIS, WITH MICROSCOPIC Lab Routine Essential hypertension, benign Expected: 07/13/2023, Expires: 09/12/2023 [facility] Work Phone: Comment on above: Expected: 07/13/2023 , Expires: 09/12/2023 Start: 06-15-2023 Covid-19 Vaccine () Covid-19 Vaccine () [facility] Start: 05-01-2023 Patient discharge [facility] Start: 04-27-2023 Following clinical p athway protocol [facility] Start: 04-27-2023 Ambulation without limitation [facility] Start: 04-27-2023 Assessment of risk o f venous thromboembolism [facility] Start: 04-27-2023 Insertion of cathete r into peripheral vein [facility] Start: 04-27-2023 Providing care accor ding to standard [facility] Start: 04-27-2023 Provision of activit y privileges [facility] Start: 04-27-2023 [facility] Start: 04-27-2023 Clostridioides diffi cile [Presence] in Stool [facility] Start: 04-27-2023 Verification routine [facility] Start: 04-27-2023 Admission procedure [facility] Start: 04-27-2023 Enteric precautions [facility] Start: 04-27-2023 [facility] Start: 01-04-2023 ANNUAL PCP TEAM NETWORK SUPPORT MANAGER HENRY DISEASE VISIT ANNUAL PCP TEAM CHRONIC DISEASE VISIT [facility] Start: 12-11-2022 End: 12-25-2022 Influenza virus A and B RNA and SARS-CoV-2 (COVID-19) N gene panel - Respiratory specimen by BRITTANI with probe detection COVID WITH FLUA+B, ROUTINE Microbiology Routine Sore throat Strep throat exposure Sinus pressure Right ear pain Non-recurrent acute serous otitis media of right ear Expected: 12/11/2022, Expires: 12/25/2022 [facility] Work Phone: Comment on above: Expected: 12/11/2022 , Expires: 12/25/2022 Start: 12-10-2022 COVID-19 VACCINE (5 - Pfizer series) COVID-19 VACCINE (5 - Pfizer series) [facility] Start: 10-31-2022 Tetanus vaccination Tetanus: Every 1 0yrs [facility] Start: 10-31-2022 Urine microalbumin profile [facility] Start: 10-15-2022 ADVANCE DIRECTIVE DISCUSSION ADVANCE DIRECTIVE DISCUSSION [facility] Start: 10-15-2022 DEPRESSION ASSESSMENT DEPRESSION ASS ESSMENT [facility] Start: 05-04-2022 Mammography MAMMOGRAM [facility] Start: 05-04-2022 Screening for malign ant neoplasm of breast Mammogram [facility] Start: 12-16-2021 COVID-19 VACCINE (4 - Booster for Pfizer series) COVID-19 VACCINE (4 - Booster for Pfizer series) [facility] Start: 11-23-2021 Colonoscopy COLONOSCOPY [facility] Start: 11-23-2021 Screening for malign ant neoplasm of colon Colonoscopy [facility] Start: 10-15-2021 ADVANCE DIRECTIVE DISCUSSION ADVANCE DIRECTIVE DISCUSSION [facility] Start: 10-15-2021 DEPRESSION ASSESSMENT DEPRESSION ASS ESSMENT [facility] Start: 10-13-2021 COVID-19 VACCINE (4 - Booster for Pfizer series) COVID-19 VACCINE (4 - Booster for Pfizer series) [facility] Start: 07-30-2018 Screening for malign ant neoplasm of colon [facility] Start: 2013 Fall risk assessment Falls Risk Asse ssment [facility] Start: 2013 Pneumococcal Vaccine : Age 65+ (1 of 1 - PCV) Pneumococcal Vaccine: Age 65+ (1 of 1 - PCV) [facility] Start: 2013 PNEUMOCOCCAL: 65+ (1 - PCV) PNEUMOCOCCAL: 65+ (1 - PCV) [facility] Start: 2008 RSV Vaccine (1 - 1-d ose 60+ series) RSV Vaccine (1 - 1-dose 60+ series) [facility] Start: 1998 Screening for malign ant neoplasm of colon Flexible sigmoidoscopy [facility] Start: 1993 COLOGUARD (FIT-DNA) COLOGUARD (FIT-D NA) [facility] Start: [address] COLONOGRAPHY [facility] Start: 1993 Screening for malign ant neoplasm of colon [facility] Start: 1993 SIGMOIDOSCOPY SIGMOIDOSCOPY [facility] Start: 1966 Anxiety Screening Anxiety Screening [facility] Start: 1966 BP CONTROLLED (<130/80) BP CONTROLLE D (<130/80) [facility] Start: 1966 Depression Screening Depression Scre ening [facility] Start: 1966 Hepatitis C screening Hepatitis C Sc jose francisco [facility] Start: 1960 Depression screening using PHQ-9 (Patient Health Questionnaire 9) score Depression Screening (PHQ-2/9) [facility] Start: 1951 History and physical examination, annual for health maintenance Wellness Visit [facility] Start: 1948 Screening for malign ant neoplasm of colon [facility] Albumin [Moles/volum e] in Serum or Plasma [facility] Albumin/Globulin ratio [facility] End: 09-07-2025 BD DXA TRABECULAR BONE SCORE (TBS) BD DXA TRABECULAR BONE SCORE (TBS) Radiology Routine Age-related osteoporosis without current pathological fracture 1 Occurrences starting 08/08/2024 until 09/07/2025 [facility] Comment on above: 1 Occurrences starti ng 08/08/2024 until 09/07/2025 BD DXA TRABECULAR GARRETT NE SCORE (TBS) BD DXA TRABECULAR BONE SCORE (TBS) Radiology Routine Age-related osteoporosis without current pathological fracture 09/26/2024 1:24 PM EST [facility] Beef IgE Ab [Units/v olume] in Serum [facility] Chocolate IgE Ab [Units/volume] in Serum [facility] Clostridioides diffi cile DNA [Presence] in Unspecified specimen by BRITTANI with probe detection [facility] Clostridioides diffi cile toxin genes [Presence] in Stool by BRITTANI with probe detection CLOSTRIDIUM DIFFICILE TOXIN BY PCR Lab Routine Diarrhea, unspecified type Diverticulosis Diverticulitis History of Clostridium difficile colitis Ordered: 02/12/2025 [facility] Comment on above: Ordered: 02/12/2025 Codfish IgE Ab [Units/volume] in Serum [facility] Dodge IgE Ab [Units/v olume] in Serum [facility] Cow milk IgE Ab [Units/volume] in Serum [facility] CTA Head vessels and Neck vessels W contrast IV [facility] CTA Head vessels and Neck vessels W contrast IV [facility] End: 08-25-2023 Dxa bone density study 1/> sites axial skel DXA-AXIAL SKELETON Radiology Routine Osteopenia, unspecified location 1 Occurrences starting 07/26/2022 until 08/25/2023 [facility] Work Phone: Comment on above: 1 Occurrences starti ng 07/26/2022 until 08/25/2023 End: 09-07-2025 DXA Skeletal system.axial Views for bone density DXA-AXIAL SKELETON Radiology Routine Age-related osteoporosis without current pathological fracture 1 Occurrences starting 08/08/2024 until 09/07/2025 [facility] Work Phone: Comment on above: 1 Occurrences starti ng 08/08/2024 until 09/07/2025 DXA Skeletal system. axial Views for bone density DXA-AXIAL SKELETON Radiology Routine Age-related osteoporosis without current pathological fracture 09/26/2024 1:24 PM EST [facility] Work Phone: Electrophoresis: [id number] [facility] Electrophoresis: ashley ma globulin [facility] ENTERIC BACTERIAL PA LANE BY PCR ENTERIC BACTERIAL PANEL BY PCR Lab Routine Diarrhea, unspecified type Diverticulosis Diverticulitis History of Clostridium difficile colitis Ordered: 02/12/2025 [facility] Work Phone: Comment on above: Ordered: 02/12/2025 Food RAST [facility] Gastrointestinal pat hogens panel - Stool by BRITTANI with probe detection [facility] Gastrointestinal pat hogens panel - Stool by BRITTANI with probe detection [facility] Globulin measurement [facility] GROUP A STREPTOCOCCU S BY PCR GROUP A STREPTOCOCCUS BY PCR Lab Routine Sore throat Strep throat exposure Sinus pressure Right ear pain Non-recurrent acute serous otitis media of right ear 12/11/2022 11:11 AM EST [facility] Work Phone: Hemoglobin.gastroint estina l.lower [Presence] in Stool by Immunoassay IMMUNOCHEMICAL FECAL OCCULT BLOOD TEST Lab Routine Diarrhea, unspecified type Anemia, unspecified type Ordered: 02/12/2025 [facility] Comment on above: Ordered: 02/12/2025 IgA [Mass/volume] in Serum or Plasma [facility] IgE [Units/volume] i n Serum or Plasma [facility] IgG [Mass/volume] in Serum or Plasma [facility] IgM [Mass/volume] in Serum or Plasma [facility] Influenza virus A an d B RNA and SARS-CoV-2 (COVID-19) N gene panel - Respiratory specimen by BRITTANI with probe detection COVID WITH FLUA+B, ROUTINE Microbiology Routine Headache, unspecified headache type Acute cough Ordered: 09/06/2022 [facility] Work Phone: Comment on above: Ordered: 09/06/2022 Laboratory data interpretation [facility] Lactoferrin [Presenc e] in Stool by Immunoassay [facility] Neutrophil cytoplasm ic Ab.classic [Units/volume] in Serum [facility] Ova and parasites identified in Unspecified specimen by Light microscopy [facility] P-ANCA measurement [facility] Patient [facility] Work Phone: Patient referral [facility] Work Phone: Peanut IgE Ab [Units/volume] in Serum [facility] Pork IgE Ab [Units/v olume] in Serum [facility] Protein electrophore sis panel - Serum or Plasma [facility] RAPID STREP TEST B/O RAPID STREP TEST B/O Lab Routine Sore throat Strep throat exposure Ordered: 12/11/2022 [facility] Work Phone: Comment on above: Ordered: 12/11/2022 [place] IgE Ab [Units/volume] in Serum [facility] End: 07-14-2023 Screening mammography bi 2-view breast inc cad SANDOVAL SCREENING Radiology Routine Encounter for screening mammogram for breast cancer 1 Occurrences starting 06/14/2022 until 07/14/2023 [facility] Work Phone: Comment on above: 1 Occurrences starti ng 06/14/2022 until 07/14/2023 Shrimp IgE Ab [Units/volume] in Serum [facility] Soybean IgE Ab [Units/volume] in Serum [facility] STREP A MOLECULAR (POC) STREP A MOLECULAR (POC) Microbiology Routine Sore throat Strep throat exposure Sinus pressure Right ear pain Non-recurrent acute serous otitis media of right ear Ordered: 12/11/2022 [facility] Work Phone: Comment on above: Ordered: 12/11/2022 Tissue transglutamin ase IgA Ab [Units/volume] in Serum [facility] Tuna IgE Ab [Units/v olume] in Serum [facility] US Carotid arteries [facility] US Renal artery [facility] Wheat IgE Ab [Units/volume] in Serum [facility] Whole Egg IgE Ab [Units/volume] in Serum [facility] End: 01-18-2025 XR Chest PA and Lateral XR CHEST 2V FRONTAL/LAT Radiology Routine Viral bronchitis 1 Occurrences starting 12/20/2023 until 01/18/2025 [facility] Work Phone: Comment on above: 1 Occurrences starti ng 12/20/2023 until 01/18/2025 XR Chest PA and Lateral XR CHEST 2V FRONTAL/LAT Radiology Routine Viral bronchitis 12/20/2023 1:31 PM EST [facility] Work Phone: [facility] Immunizations Immunization Date Immunization Notes Care Provider Darren burns 08-08-2023 influenza (HD-IIV4) vaccine, age 65+ yr, high dose, quadrivalent, PF (FLUZONE HIGH-DOSE) Fabian Mcmullen MD Work Phone: [facility] 08-09-2022 COVID-19 booster vaccine, age 12+ yr, bivalent (PFIZER-BIONTSharedBy.co) Joelle Katz APRN.CNP Work Phone: [facility] 07-26-2022 pneumococcal Conjuga te, unspecified formulation Fabian Mcmullen MD Work Phone: [facility] Work Phone: 07-26-2022 pneumococcal (PCV20) vaccine, 20 valent (PREVNAR 20) Fabian Mcmullen MD Work Phone: [facility] 07-25-2022 influenza, high dose seasonal, preservative-free Fabian Mcmullen MD Work Phone: [facility] Work Phone: 08-18-2021 COVID-19 vaccine, ag e 12+ yr (PFIZER-BIONTECH - PURPLE [facility]) Fabian Mcmullen MD Work Phone: [facility] 07-06-2021 zoster vaccine recombinant Fabian Mcmullen MD Work Phone: [facility] 01-28-2021 zoster vaccine recombinant Fabian Mcmullen MD Work Phone: [facility] Work Phone: 01-06-2021 COVID-19 vaccine, ag e 12+ yr (PFIZER-BIONTECH - PURPLE TOP) Fabian Mcmullen MD Work Phone: [facility] Work Phone: 12-16-2020 COVID-19 vaccine, ag e 12+ yr (PFIZER-BIONTECH - PURPLE TOP) Fabian Mcmullen MD Work Phone: [facility] Work Phone: 10-31-2012 tetanus toxoid, redu jameson diphtheria toxoid, and acellular pertussis vaccine, adsorbed Fabian Mcmullen MD Work Phone: [facility] Payers Date Payer Category Payer Self-pay [id number] 2023 Medicare [id number] 2023 Private Health Insurance 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 2014 Unknown [id number] 2013 Medicare [id number] 2013 Medicare [id number] 2012 Unknown [id number] 1948 Unknown [id number] [id number]. 903 1948 Unknown [id number] 2.16.840.1.554093.3.579.2. 903 Unknown [facility] PACKAGE PLAN [id number] Unknown [id number] 2.16.840.1.572965.3.579.2. 462 Unknown [id number] 2.16.840.1.859969.3.579.2. 462 Unknown [id number] 2.16.840.1.370411.3.579.2. 462 Unknown [id number] 2.16.840.1.129667.3.579.2. 462 Unknown [id number] 2.16.840.1.065212.3.579.2. 462 Unknown [id number] 2.16.840.1.055831.3.579.2. 462 Unknown [id number] 2.16.840.1.918225.3.579.2. 462 Unknown [id number] 2.16.840.1.279009.3.579.2. 462 Unknown [id number] 2.16.840.1.918146.3.579.2. 462 Unknown [id number] 2.16.840.1.360007.3.579.2. 462 Unknown [id number] 2.16.840.1.269514.3.579.2. 462 Unknown [id number] 2..840.1.691213.3.579.2. 462 Social History Date Type Detail Facility Start: 06-28-2016 End: 07-17-2022 Tobacco smoking status NHIS Never smoked tobacco [facility] Work Phone: Start: 01-04-2022 End: 05-26-2025 Alcohol intake Current non-drinker of alcohol (finding) [facility] Start: 04-12-2021 History SDOH Alcohol Frequency 1 [facility] Start: 04-12-2021 History SDOH Alcohol Std Drinks 98 [facility] Start: 04-12-2021 History SDOH Social Connections Phone 5 [facility] Start: 04-12-2021 History SDOH Social Connections Rastafarian 3 [facility] Start: 04-12-2021 History SDOH Physical Activity MPS 2 [facility] Start: 1950 Sex Assigned At Not on file [facility] Start: 08-13-2021 End: 09-06-2022 Exposure to SARS-CoV-2 (event) Not sure [facility] Work Phone: Start: 01-11-2022 End: 11-26-2023 Tobacco smoking status NHIS Unknown if ever smoked [facility] Start: 11-19-2020 None [facility] Start: 11-19-2020 Alone [facility] Start: 1950 Sex Assigned At Female [facility] Start: 06-28-2016 End: 07-17-2022 Tobacco use and exposure Smokeless tobacco non-user [facility] Work Phone: Start: 04-12-2021 End: 03-08-2023 History of Social function [facility] Start: 04-12-2021 End: 03-08-2023 Social connection and isolation panel [facility] Start: 09-15-2012 Do you belong to any clubs or organizations such as yazidism groups, unions, fraternal or athletic groups, or school groups? Patient refused [facility] Are you now , , , , never or living with a partner? [facility] How often to you hav e a drink containing alcohol? Never [facility] Do you feel stress - tense, restless, nervous, or anxious, or unable to sleep at night because your mind is troubled all the time - these days [OSQ] Only a little [facility] (I/We) worried franchesca fortune (my/our) food would run out before (I/we) got money to buy more. Never true [facility] Start: 04-12-2021 Gender identity Identifies as female gender (finding) [facility] Start: 04-12-2021 Sexual orientation Heterosexual (finding) [facility] Start: 12-04-2023 Alcohol intake Lifetime non-drinker (finding) [facility] How often to you hav e a drink containing alcohol? Monthly or less [facility] How many standard dr inks containing alcohol do you have on a typical day? 1 or 2 [facility] Start: 01-26-2025 Sex Female (finding) [facility] Goals Date Patient Goal Desired Activity /State Functional Status Date Assessment Result Facility 05-01-2023 Functional status [facility] Work Phone: 05-03-2015 Are you deaf, or do you have serious difficulty hearing No 05/03/2015 8:06 AM Frances Carter Ma No [facility] 05-03-2015 Are you blind, or do you have serious difficulty seeing, even when wearing glasses No 05/03/2015 8:06 AM Frances Carter Ma No [facility] 05-03-2015 Do you have serious difficulty walking or climbing stairs No 05/03/2015 8:06 AM Frances Carter Ma No [facility] 05-03-2015 Do you have difficul ty dressing or bathing No 05/03/2015 8:06 AM Frances Carter Ma No [facility] 05-03-2015 Because of a physica l, mental, or emotional condition, do you have difficulty doing errands alone such as visiting a physician's office or shopping No 05/03/2015 8:06 AM EDT Abdulkadir RandleFrances No [facility] Mental Status Date Assessment Result Facility 04-30-2023 Cognitive function Voice/Name [facility] Work Phone: 04-27-2023 Cognitive function Level Of Cons ciousness Awake;Alert;Appropriate;Fol lows Commands [facility] Work Phone: 01-11-2022 Cognitive function Level Of Cons ciousness Awake;Alert;Appropriate;Fol lows Commands [facility] Work Phone: 05-03-2015 Because of a physica l, mental, or emotional condition, do you have serious difficulty concentrating, remembering, or making decisions No 05/03/2015 8:06 AM EDT Abdulkadir Randle Frances Baxter No [facility] Clinical Notes 12-03-2011 to 08-06-2025 Telephone Encounter - Nahid Oswald [facility] - 06/29/2025 1:14 PM EDTTelephone Encounter - Nahid Oswald [facility] - 06/29/2025 1:14 PM Guido Layton PT - 06/26/2025 10:36 AM EDT Note Date & Type Note Facility 08-06-2025 Note HNO ID: [id number] Author: VLADIMIR MCGHEE PT Service: ? Author Type: Physical Therapist Type: Progress Notes Filed: 08/06/2025 14:49 Note Text: Episode Visit Count: 5 Therapist That Will Accept/Oversee The Plan Of Care: Vladimir Mcghee Start of Care Date: 06/09/25 Onset Date: 04/09/25 Plan of Care Certification Date: 06/09/25 Next Certification Due Date: 08/09/25 REHABILITATION AND SPORTS THERAPY PHYSICAL THERAPY DISCONTINUANCE OF CARE PLAN OF CARE UPDATE: Assessment: Laurence Koroma is discontinued from Physical Therapy services due to goal achievement.. Patient was seen for 5 visits from Start of Care Date: 06/09/25 to 08/06/2025 and treatment included: Therapeutic exercise and Manual therapy. Goals updated on 08/05/2025. Goals for Episode of Care: established 06/09/2025 Independent in a Home Exercise Program. Met, on-going Patient will decrease pain rating by 2 points to meet minimal clinical important difference for numeric pain rating scale. Met Restore pain free cervical ROM to minimal to nil limitations to allow for decreased pain and improved functional mobility. Met Drive with no aggravation of pain/symptoms. Met Sleep throughout the night without pain/symptoms. Met Patient will demonstrate 50% reduction is cervical and fascial muscles upon palpation. Met SUBJECTIVE: CLAYTON frequency has decreased to 1-2 times/week. Notes the exercises/stretches tend to take this pain away. Left with daily stiffness, and neck pain. This is her previous baseline prior to the CLAYTON's starting. Pain: Pain Pain Level: 1 Pain Location: Neck Description: Stiffness Frequency: Intermittent PROMIS Scales 08/05/2025 Higher is Better Phys Func - T Score 46 (within normal limits) Phys Func - Percentile 34 Self-Eff Symptom - T Score 56 (Average) Self-Eff Symptom - Percentile 73 Proxy-reported T-Score and Percentile Interpretation T-scores: mean of general population = 50. 5 points is clinically meaningfully difference Percentiles provide an indication of how the patient's score ranks in relation to the general population. Higher percentile rankings indicate better function/quality of life. 50th percentile is the average of the general population and indicates half of respondents had a worse score. OBJECTIVE MEASURES WITH LEVEL OF FUNCTION: Cervical Spine ROM Cervical Flexion AROM: Normal Cervical Extension AROM: Normal Cervical Side-Bend Right AROM: Minimal limitation Cervical Side-Bend Left AROM: Minimal limitation Cervical Rotation Right AROM (degrees) : 75 Degrees Cervical Rotation Left AROM (degrees) : 57 Degrees TREATMENT: Therapeutic Exercise: 1: Objective measures obtained 2: Reviewed HEP and discussed proper follow through, progressions/regressions Skilled Intervention: Patient was educated in proper exercise technique and purpose for exercises. Skilled judgment was used in selection of appropriate interventions. Provided written instruction for home exercise program to facilitate proper performance and compliance. Correct performance of therapeutic exercises was facilitated with verbal, visual, and tactile cuing. Billing Therapeutic Exercise Treatment Minutes: 23 Skilled Treatment Time Minutes (timed and untimed codes): 23 Total Session Time (minutes): 23 Session Start Time : 1030 Session Stop Time : 1053 Vladimir Mcghee PT [facility] 07-24-2025 Note HNO ID: [id number] Author: VLADIMIR MCGHEE PT Service: ? Author Type: Physical Therapist Type: Progress Notes Filed: 07/24/2025 16:37 Note Text: Episode Visit Count: 4 Therapist That Will Accept/Oversee The Plan Of Care: Vladimir Mcghee Start of Care Date: 06/09/25 Onset Date: 04/09/25 Plan of Care Certification Date: 06/09/25 Next Certification Due Date: 08/09/25 REHABILITATION AND SPORTS THERAPY PHYSICAL THERAPY TREATMENT NOTE ASSESSMENT: Laurence Koroma tolerated the session with decreased symptoms. She demonstrated improvements in neck pain. The patient will continue to benefit from ongoing skilled physical therapy to progress toward set goals. PLAN FOR NEXT VISIT: DE SUBJECTIVE: Patient contineus to feel better with less frequent and intense pain. She thinks her sleeping difficulties is an exacerbating factor Pain: Pain Pain Level: 2 Pain Location: Neck Description: Tightness Frequency: Intermittent OBJECTIVE MEASURES WITH LEVEL OF FUNCTION: Response to manual monitored throughout session TREATMENT: Manual Therapy: 1: Gentle STM to R SCM and upper trap with push to tolerance 2: Gentle cervical traction x10 min Skilled Intervention: Manual skills to improve joint mobility, ROM, and decrease pain. Utilized anatomy knowledge of the clinician, and assessment of patient's response to intervention. Billing Manual TherapyTreatment Minutes: 42 Skilled Treatment Time Minutes (timed and untimed codes): 42 Total Session Time (minutes): 42 Session Start Time : 1118 Session Stop Time : 1200 Vladimir Mcghee PT [facility] 07-10-2025 Note HNO ID: [id number] Author: VLADIMIR MCGHEE PT Service: ? Author Type: Physical Therapist Type: Progress Notes Filed: 07/10/2025 10:25 Note Text: Episode Visit Count: 3 Therapist That Will Accept/Oversee The Plan Of Care: Vladimir Mcghee Start of Care Date: 06/09/25 Onset Date: 04/09/25 Plan of Care Certification Date: 06/09/25 Next Certification Due Date: 08/09/25 REHABILITATION AND SPORTS THERAPY PHYSICAL THERAPY PROGRESS REPORT PLAN OF CARE UPDATE: Assessment: Laurence Koroma demonstrates moderate improvement in CLAYTON's. The patient has progressed toward goals. Patient continues to present with impairments in overall function, range of motion, symptom management, and tissue tenderness that interfere with heavy exertion, physical activities, sleeping, cleaning, cooking . Current prognosis is Fair due to: clinical presentation, chronic nature of impairments, advanced age, multiple co- morbidities . The patient will benefit from continued skilled therapy services to meet the updated goals for this plan of care as noted below. Goals updated on 07/08/2025. Goals for Episode of Care: established 06/09/2025 Independent in a Home Exercise Program. Met, on-going Patient will decrease pain rating by 2 points to meet minimal clinical important difference for numeric pain rating scale. Partially met Restore pain free cervical ROM to minimal to nil limitations to allow for decreased pain and improved functional mobility. Improved Drive with no aggravation of pain/symptoms. Improved Sleep throughout the night without pain/symptoms. Improved Patient will demonstrate 50% reduction is cervical and fascial muscles upon palpation. Improved Time Frame for Goals and Treatment : 08/09/25 Planned Interventions, Frequency, and Duration: 1x every other week, 4 weeks Total Number of Visits Planned: 2 Patient to be seen for Therapeutic exercise (34470), Neuromuscular re-education (00547), Manual therapy (04872), Therapeutic activities (98010), Self-fci management (02606), Patient/Family/Caregiver Education, Body Mechanics Training PLAN FOR NEXT VISIT: Continue gentle manual, progress exercises per patient tolerance and symptom response SUBJECTIVE: Patient notes maybe 2 CLAYTON's since last being seen. She feels she is progressing well but not quite gone yet. Functional Limitations: heavy exertion, physical activities, sleeping, cleaning, cooking Pain: Pain Pain Level: 4 Pain Location: Neck Description: Tightness Frequency: Intermittent OBJECTIVE MEASURES WITH LEVEL OF FUNCTION: Spine Observations R Cervical Spine Palpation Tenderness: Upper trapezius, Sternocleidomastoid, Paraspinals, Suboccipitals L Cervical Spine Palpation Tenderness: Upper trapezius, Sternocleidomastoid, Paraspinals, Suboccipitals Cervical Spine ROM Cervical Flexion AROM: Minimal limitation Cervical Extension AROM: Moderate limitation (causes dizziness) Cervical Side-Bend Right AROM: Moderate limitation Cervical Side-Bend Left AROM: Moderate limitation Cervical Rotation Right AROM (degrees) : 70 Degrees Cervical Rotation Left AROM (degrees) : 40 Degrees TREATMENT: Therapeutic Exercise: 1: *Cervical elongation 3x10, 2-3 sec holds 2: *Upper trap stretch 3x30 sec/side 3: *Cervical rotation 3x10, 2-3 sec holds at end range to tolerance 4: Objective measures obtained Skilled Intervention: Patient was educated in proper exercise technique and purpose for exercises. Skilled judgment was used in selection of appropriate interventions. Provided written instruction for home exercise program to facilitate proper performance and compliance. Correct performance of therapeutic exercises was facilitated with verbal, visual, and tactile cuing. Manual Therapy: 1: Gentle STM to R SCM and upper trap with push to tolerance 2: Gentle cervical traction x7 min Skilled Intervention: Manual skills to improve joint mobility, ROM, and decrease pain. Utilized anatomy knowledge of the clinician, and assessment of patient's response to intervention. Billing Therapeutic Exercise Treatment Minutes: 20 Manual TherapyTreatment Minutes: 22 Skilled Treatment Time Minutes (timed and untimed codes): 42 Total Session Time (minutes): 42 Session Start Time : 1032 Session Stop Time : 1114 Vladimir Mcghee PT [facility] 07-07-2025 Note HNO ID: [id number] Author: LAISHA NEVAREZ PA-C Service: ? Author Type: Physician Guide Cruise Type: Progress Notes Filed: 07/07/2025 09:32 Note Text: Neurology Outpatient Clinic Date: July 07, 2025 Patient Name: Laurence Koroma Referring provider: Constance Klein PA-C [address] [facility] [address] Consult requested for headache by Constance Klein PA-C. Recommendations will be communicated via shared medical record or US mail. Primary physician: Fabian Mcmullen [address] [place] [id number] Reason for Evaluation: Headaches Subjective HPI Laurence Koroma is a 74 year old female who presents for evaluation of headache. Constance Klein PA-C is the referring provider. Dr. Fabian Mcmullen MD is the PCP. Chart review: Saw PCP for CLAYTON on 05/26/25 Headache and Eye Pain: - Onset: Began around April 26. - Location: Initially behind the eye, now a dull ache in the temporal area. - Duration: Persistent for about a month. - Severity: Initially more painful, now subsided to a dull ache. - Associated Symptoms: Sensitivity and tenderness in the head, no visible rash or redness. - Aggravating Factors: Physical activity and rushing around. - Alleviating Factors: Antibiotic treatment. - Denies known trauma or injury. - Recent CT scan showed no significant issues in the arteries around the head. - Lexie has a history of poor posture and neck issues, previously treated with physical therapy. - Scheduled dental appointment to check for potential bite issues contributing to the pain. Sent to PT, CRP and ESR negative. Patient presents for evaluation of headache. Started in April, located to the right jew and was originally at the posterior aspect of the head as well but this is resolved. 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 However imaging not related to headaches. Continue to follow with primary care who started physical therapy and notes some moderate improvement in her symptoms since that time. Also follow-up with her dentist who recommended a bite guard but patient does not want to use this. Headache is now mild and only occurs some days but still to the right jew. At 1 point she did have a curtain coming over her right eye but this only happened once and improved with stretching. No other symptoms associated with this head pain. Has not taken anything for it as she does not like to take medications. Has never happened before. Notes that she is under a lot of stress with her daughter and son-in-law financially and feels this is contributing. Did see her eye doctor last Sunday with normal evaluation. Current Headache treatment Preventative: none Abortive: OTC Medications effective? no Previous imaging: CTA head and neck Previous Medications: Lisinopril Headache Description Onset: April Total headache days per month: almost daily Total headache attacks per month: almost daily Headache free days: Yes Duration of attacks: on and off Severity of headaches? mild Onset to Peak: gradual Location: right jew. Aura: None Prodrome:none. Accompanying symptoms: once she had a curtain over the right eye but then went away after stretching. Quality:just a pain. Worse with activity: No Triggers: stress. Cough/sneeze/valsalva as trigger: no Positional changes: No Most common time of day for headache to begin:would wake up with it. ROS Review of Systems CONSTITUTIONAL: No reported fevers, chills, night sweats, or significant unintentional weight loss. EYES: No visual changes indicated. No eye pain or orbital swelling reported. HEENT: No hearing changes or vertiginous symptoms indicated. No history of nose bleeds reported. RESPIRATORY: No reported cough, wheezing and dyspnea. CARDIOVASCULAR: Negative for significant chest pain and palpitations per report. GI: Negative for significant abdominal discomfort, blood in stools or black stools reported. No recent reported change in bowel habits. : No reported history of incontinence. No dark/cola colored urine reported. MUSCLOSKELETAL: No history of significant joint pain or swelling, or myalgias reported. SKIN: Negative for pertinent lesions, rash, and itching per report. HEMATOLOGY/ONCOLOGY: Negative for reported prolonged bleeding, bruising easily, and swollen nodes. ENDOCRINE: Negative for reported significant cold or heat intolerance, no reported goitrous neck swelling or polydipsia PSYCH: No reported depression or anxiety symptoms. No reported SI or HI. NEURO: Per HPI above. Sleep: Interrupted due to stress, Mood: normal, Energy: Normal - stable, Stress: High Medications: Current Outpatient Medications Medication Sig Dispense Refill lisinopril (ZESTRIL) 40 mg tablet Take 0.5 tablets by mouth two times a day. 90 (more content not included)... [facility] 06-29-2025 Telephone encounter Note Prescription Refill Information The patient has been identified by name and date of : Yes Caregiver verified no other encounters exist for this prescription request: Yes Caregiver confirmed with patient/requestor that no other refills are due, in the near future, with this provider at this time: Yes The last office visit in the department: 05/26/2025 Does the patient have a future office visit with this provider/department: Yes Requested Prescriptions Pending Prescriptions Disp Refills lisinopril (ZESTRIL) 40 mg tablet 90 tablet 1 Sig: Take 0.5 tablets by mouth two times a day. fluticasone (FLONASE) 50 mcg/actuation nasal spray 16 mL 2 Sig: Use 2 sprays in each nostril once daily. Rinse mouth after use. Johanna Oswald June 29, 2025 1:15 PM [facility] 06-29-2025 Miscellaneous Notes Prescription Refill Information The patient has been identified by name and date of : Yes Caregiver verified no other encounters exist for this prescription request: Yes Caregiver confirmed with patient/requestor that no other refills are due, in the near future, with this provider at this time: Yes The last office visit in the department: 05/26/2025 Does the patient have a future office visit with this provider/department: Yes Requested Prescriptions Pending Prescriptions Disp Refills lisinopril (ZESTRIL) 40 mg tablet 90 tablet 1 Sig: Take 0.5 tablets by mouth two times a day. fluticasone (FLONASE) 50 mcg/actuation nasal spray 16 mL 2 Sig: Use 2 sprays in each nostril once daily. Rinse mouth after use. Johanna Oswald June 29, 2025 1:15 PM documented in this encounter [facility] 06-26-2025 Note HNO ID: [id number] Author: GUIDO JEFFERS PT Service: ? Author Type: Physical Therapist Type: Progress Notes Filed: 06/26/2025 11:26 Note Text: Episode Visit Count: 2 Therapist That Will Accept/Oversee The Plan Of Care: Vladimir Mcghee Start of Care Date: 06/09/25 Onset Date: 04/09/25 Plan of Care Certification Date: 06/09/25 Next Certification Due Date: 08/09/25 REHABILITATION AND SPORTS THERAPY PHYSICAL THERAPY TREATMENT NOTE ASSESSMENT: Laurence Koroma tolerated the session with decreased symptoms, expected muscle soreness, and no issues. She demonstrated difficulty with neck stiffness and left shoulder pain, major limitation w/ L active shoulder elevation which limits her functional mobility and improvements in headache symptoms, no headache in session today. The patient responded positively to cervical traction and ROM exercises. The patient will continue to benefit from ongoing skilled physical therapy to progress toward set goals. PLAN FOR NEXT VISIT: Gentle manual. No manipulations or anything higher than grade 2-3 mobs due to vascular history. Assess compliance with initial stretches and HEP SUBJECTIVE: The headaches have relieved. The headache is gone, but I still feel stiff. The headaches have been gone for a couple week, but sometimes I feel it wanting to start up. I try not to look up because it makes me feel lightheaded Pain: Pain Pain Level: 0 Pain Location: Neck - Right, Head - Right Description: Tightness Frequency: Intermittent Post Treatment Pain Post Treatment Pain Level: Better OBJECTIVE MEASURES WITH LEVEL OF FUNCTION: Cervical Spine ROM Cervical ROM : Limitation AROM Cervical Flexion AROM: Moderate limitation Cervical Extension AROM: Moderate limitation Cervical Side-Bend Right AROM: Moderate limitation Cervical Side-Bend Left AROM: Moderate limitation Cervical Rotation Right AROM: Moderate limitation Cervical Rotation Left AROM: Moderate limitation TREATMENT: Therapeutic Exercise: 4: Postural education w/ lumbar roll - positioned in upright sitting posture prior to neck stretching exercises 5: Cervical R Sidebending stretch 10x 5 sec hold 6: Cervical L Sidebending stretch 10x 5 sec hold 7: Cervical R Rotation stretch 10x 5 sec hold 8: Cervical L Rotation stretch 10x 5 sec hold 9: Cervical chin tuck w/ elongation 3x10, 2-3 sec holds 10: Seated thoracic extension 10x 5 sec hold Skilled Intervention: Patient was educated in proper exercise technique and purpose for exercises. Skilled judgment was used in selection of appropriate interventions. Provided written instruction for home exercise program to facilitate proper performance and compliance. Correct performance of therapeutic exercises was facilitated with verbal, visual, and tactile cuing. Patient education as noted. Manual Therapy: 3: Gentle cervical traction x4 min x2, education on towel roll in pillow w/ sleeping Skilled Intervention: Manual skills to improve joint mobility, ROM, and decrease pain. Utilized anatomy knowledge of the clinician, and assessment of patient's response to intervention. Billing Therapeutic Exercise Treatment Minutes: 31 Manual TherapyTreatment Minutes: 15 Skilled Treatment Time Minutes (timed and untimed codes): 46 Total Session Time (minutes): 46 Session Start Time : 1037 Session Stop Time : 1123 Guido Jeffers PT [facility] 06-26-2025 History of Presen t illness Narrative Episode Visit Count: 2 Therapist That Will Accept/Oversee The Plan Of Care: Vladimir Taz Start of Care Date: 06/09/25 Onset Date: 04/09/25 Plan of Care Certification Date: 06/09/25 Next Certification Due Date: 08/09/25 REHABILITATION AND SPORTS THERAPY PHYSICAL THERAPY TREATMENT NOTE ASSESSMENT: Laurence Koroma tolerated the session with decreased symptoms, expected muscle soreness, and no issues. She demonstrated difficulty with neck stiffness and left shoulder pain, major limitation w/ L active shoulder elevation which limits her functional mobility and improvements in headache symptoms, no headache in session today. The patient responded positively to cervical traction and ROM exercises. The patient will continue to benefit from ongoing skilled physical therapy to progress toward set goals. PLAN FOR NEXT VISIT: Gentle manual. No manipulations or anything higher than grade 2-3 mobs due to vascular history. Assess compliance with initial stretches and HEP SUBJECTIVE: The headaches have relieved. The headache is gone, but I still feel stiff. The headaches have been gone for a couple week, but sometimes I feel it wanting to start up. I try not to look up because it makes me feel lightheaded Pain: Pain Pain Level: 0 Pain Location: Neck - Right, Head - Right Description: Tightness Frequency: Intermittent Post Treatment Pain Post Treatment Pain Level: Better OBJECTIVE MEASURES WITH LEVEL OF FUNCTION: Cervical Spine ROM Cervical ROM : Limitation AROM Cervical Flexion AROM: Moderate limitation Cervical Extension AROM: Moderate limitation Cervical Side-Bend Right AROM: Moderate limitation Cervical Side-Bend Left AROM: Moderate limitation Cervical Rotation Right AROM: Moderate limitation Cervical Rotation Left AROM: Moderate limitation TREATMENT: Therapeutic Exercise: 4: Postural education w/ lumbar roll - positioned in upright sitting posture prior to neck stretching exercises 5: Cervical R Sidebending stretch 10x 5 sec hold 6: Cervical L Sidebending stretch 10x 5 sec hold 7: Cervical R Rotation stretch 10x 5 sec hold 8: Cervical L Rotation stretch 10x 5 sec hold 9: Cervical chin tuck w/ elongation 3x10, 2-3 sec holds 10: Seated thoracic extension 10x 5 sec hold Skilled Intervention: Patient was educated in proper exercise technique and purpose for exercises. Skilled judgment was used in selection of appropriate interventions. Provided written instruction for home exercise program to facilitate proper performance and compliance. Correct performance of therapeutic exercises was facilitated with verbal, visual, and tactile cuing. Patient education as noted. Manual Therapy: 3: Gentle cervical traction x4 min x2, education on towel roll in pillow w/ sleeping Skilled Intervention: Manual skills to improve joint mobility, ROM, and decrease pain. Utilized anatomy knowledge of the clinician, and assessment of patient's response to intervention. Billing Therapeutic Exercise Treatment Minutes: 31 Manual TherapyTreatment Minutes: 15 Skilled Treatment Time Minutes (timed and untimed codes): 46 Total Session Time (minutes): 46 Session Start Time : 1037 Session Stop Time : 1123 Guido Jeffers PT documented in this encounter [facility] 06-12-2025 Telephone encounter Note Spoke with pt gave information provided. Pt voices understanding. [facility] 06-12-2025 Miscellaneous Notes Spoke with pt gave information provided. Pt voices understanding. Let patient know her anemia is resolved and back up around her normal level. Her B12, Folate and iron studies were all normal. documented in this encounter [facility] 06-11-2025 Telephone encounter Note Let patient know her anemia is resolved and back up around her normal level. Her B12, Folate and iron studies were all normal. [facility] 06-09-2025 Note HNO ID: [id number] Author: VLADIMIR MCGHEE PT Service: ? Author Type: Physical Therapist Type: Progress Notes Filed: 06/09/2025 14:08 Note Text: Episode Visit Count: 1 Therapist That Will Accept/Oversee The Plan Of Care: Vladimir Mcghee Plan of Care Certification Date: 06/09/25 Next Certification Due Date: 08/09/25 Patient Identified by Name and Date of : Yes REHABILITATION AND SPORTS THERAPY PHYSICAL THERAPY EVALUATION PLAN OF CARE: Assessment: Laurence Koroma presents with chief complaint of neck pain and CLAYTON's that interferes with heavy exertion, physical activities, sleeping, cleaning, cooking . The patient presents with impairments in ADL's, overall function, range of motion, symptom management, and tissue tenderness. Patient did not complete the PROMIS? (Patient Reported Outcome Measures Information System). Prognosis for therapy is Fair due to: clinical presentation, chronic nature of impairments, advanced age, multiple co- morbidities . The patient will benefit from skilled therapy services to meet the goals established for this plan of care as noted below. Goals for Episode of Care: established Independent in a Home Exercise Program. Patient will decrease pain rating by 2 points to meet minimal clinical important difference for numeric pain rating scale. Restore pain free cervical ROM to minimal to nil limitations to allow for decreased pain and improved functional mobility. Drive with no aggravation of pain/symptoms. Sleep throughout the night without pain/symptoms. Patient will demonstrate 50% reduction is cervical and fascial muscles upon palpation. Time Frame for Goals and Treatment : 08/09/25 Planned Interventions, Frequency, and Duration: Current Frequency: 1x/week Duration: 8 weeks Total Number of Visits Planned: 8 Planned Treatment Interventions: Therapeutic exercise (20830), Neuromuscular re-education (43603), Manual therapy (76924), Therapeutic activities (88328), Self-fci management (53510), Patient/Family/Caregiver Education, Body Mechanics Training PLAN FOR NEXT VISIT: Gentle manual. No manipulations or anything higher than grade 2-3 mobs due to vascular history. Assess compliance with initial stretches and HEP Patient demonstrates good understanding of plan of care and treatment. The above goals and plan of care were discussed and agreed upon by patient/family. SUBJECTIVE: Patient notes R sided CLAYTON's and L sided shoulder pain. Shoulder pain is long standing and she just wants to avoid flaring this up. 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 Pain usually sits in the jew and eye area. Also has a sensitive scalp parietal and occipital areas. Patient also notes a lot of neck tightness. Functional Limitations: heavy exertion, physical activities, sleeping, cleaning, cooking Prior Level of Function: Independent without limitations Intake Information: Prescription present Red Flags Vertebral Fracture Red Flags: Female, Age >70 Vertebral Fracture Clinical Reasoning: No identified risk factors Cancer Clinical Reasoning: No identified risk factors. Infection Clinical Reasoning: No identified risk factors. Cervical Arterial Dysfunction: Dizziness Cervical Arterial Dysfunction Clinical Reasoning: Proceed with caution (given history of vascular disease, will continue to monitor this) Cervical Myelopathy: Age > 45 yo Cervical Myelopathy Diagnostic Rule: No identified risk factors. Red Flags - Cervical Cancer Clinical Reasoning: No identified risk factors. Infection Clinical Reasoning: No identified risk factors. Cervical Arterial Dysfunction: Dizziness Cervical Arterial Dysfunction Clinical Reasoning: Proceed with caution (given history of vascular disease, will continue to monitor this) Cervical Myelopathy: Age > 45 yo Cervical Myelopathy Diagnostic Rule: No identified risk factors. Pain: Pain Pain Level: 5 Pain Location: Neck - Right, Head - Right Description: Tightness, Sore, Aching Frequency: Intermittent OBJECTIVE MEASURES WITH LEVEL OF FUNCTION: Spine Observations R Cervical Spine Palpation Tenderness: Upper trapezius, Sternocleidomastoid, Paraspinals, Suboccipitals L Cervical Spine Palpation Tenderness: Upper trapezius, Sternocleidomastoid, Paraspinals, Suboccipitals Cervical Spine ROM Cervical ROM : Measurement AROM Cervical Rotation Right AROM (degrees) : 65 Degrees Cervical Rotation Left AROM (degrees) : 40 Degrees Special Tests - Cervical Cervical Special Tests: Vertebral Artery Test, Cervical Compression, Spurling Vertebral Artery Test: Negative Cervical Compression: Negative Spurling: Right Negative, Left Negative Special Tests - Hip and Spine Special Test Comments: Patient reports some dizziness looking up, but could not get into formal verterbal artery testing position due to neck pain and limitation of motion. Will continue to monitor (more content not included)... [facility] 06-09-2025 History of Presen t illness Narrative Episode Visit Count: 1 Therapist That Will Accept/Oversee The Plan Of Care: Vladimir Mcghee Plan of Care Certification Date: 06/09/25 Next Certification Due Date: 08/09/25 Patient Identified by Name and Date of : Yes REHABILITATION AND SPORTS THERAPY PHYSICAL THERAPY EVALUATION PLAN OF CARE: Assessment: Laurence Koroma presents with chief complaint of neck pain and CLAYTON's that interferes with heavy exertion, physical activities, sleeping, cleaning, cooking . The patient presents with impairments in ADL's, overall function, range of motion, symptom management, and tissue tenderness. Patient did not complete the PROMIS (Patient Reported Outcome Measures Information System). Prognosis for therapy is Fair due to: clinical presentation, chronic nature of impairments, advanced age, multiple co- morbidities . The patient will benefit from skilled therapy services to meet the goals established for this plan of care as noted below. Goals for Episode of Care: established Independent in a Home Exercise Program. Patient will decrease pain rating by 2 points to meet minimal clinical important difference for numeric pain rating scale. Restore pain free cervical ROM to minimal to nil limitations to allow for decreased pain and improved functional mobility. Drive with no aggravation of pain/symptoms. Sleep throughout the night without pain/symptoms. Patient will demonstrate 50% reduction is cervical and fascial muscles upon palpation. Time Frame for Goals and Treatment : 08/09/25 Planned Interventions, Frequency, and Duration: Current Frequency: 1x/week Duration: 8 weeks Total Number of Visits Planned: 8 Planned Treatment Interventions: Therapeutic exercise (00005), Neuromuscular re-education (86054), Manual therapy (39799), Therapeutic activities (71597), Self-fci management (03931), Patient/Family/Caregiver Education, Body Mechanics Training PLAN FOR NEXT VISIT: Gentle manual. No manipulations or anything higher than grade 2-3 mobs due to vascular history. Assess compliance with initial stretches and HEP Patient demonstrates good understanding of plan of care and treatment. The above goals and plan of care were discussed and agreed upon by patient/family. SUBJECTIVE: Patient notes R sided CLAYTON's and L sided shoulder pain. Shoulder pain is long standing and she just wants to avoid flaring this up. 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 Pain usually sits in the jew and eye area. Also has a sensitive scalp parietal and occipital areas. Patient also notes a lot of neck tightness. Functional Limitations: heavy exertion, physical activities, sleeping, cleaning, cooking Prior Level of Function: Independent without limitations Intake Information: Prescription present Red Flags Vertebral Fracture Red Flags: Female, Age >70 Vertebral Fracture Clinical Reasoning: No identified risk factors Cancer Clinical Reasoning: No identified risk factors. Infection Clinical Reasoning: No identified risk factors. Cervical Arterial Dysfunction: Dizziness Cervical Arterial Dysfunction Clinical Reasoning: Proceed with caution (given history of vascular disease, will continue to monitor this) Cervical Myelopathy: Age > 45 yo Cervical Myelopathy Diagnostic Rule: No identified risk factors. Red Flags - Cervical Cancer Clinical Reasoning: No identified risk factors. Infection Clinical Reasoning: No identified risk factors. Cervical Arterial Dysfunction: Dizziness Cervical Arterial Dysfunction Clinical Reasoning: Proceed with caution (given history of vascular disease, will continue to monitor this) Cervical Myelopathy: Age > 45 yo Cervical Myelopathy Diagnostic Rule: No identified risk factors. Pain: Pain Pain Level: 5 Pain Location: Neck - Right, Head - Right Description: Tightness, Sore, Aching Frequency: Intermittent OBJECTIVE MEASURES WITH LEVEL OF FUNCTION: Spine Observations R Cervical Spine Palpation Tenderness: Upper trapezius, Sternocleidomastoid, Paraspinals, Suboccipitals L Cervical Spine Palpation Tenderness: Upper trapezius, Sternocleidomastoid, Paraspinals, Suboccipitals Cervical Spine ROM Cervical ROM : Measurement AROM Cervical Rotation Right AROM (degrees) : 65 Degrees Cervical Rotation Left AROM (degrees) : 40 Degrees Special Tests - Cervical Cervical Special Tests: Vertebral Artery Test, Cervical Compression, Spurling Vertebral Artery Test: Negative Cervical Compression: Negative Spurling: Right Negative, Left Negative Special Tests - Hip and Spine Special Test Comments: Patient reports some dizziness looking up, but could not get into formal verterbal artery testing position due to neck pain and limitation of motion. Will continue to monitor Education: Education Learning Preferences: Demonstration, Explanation, Performance, Printed Materials Barriers: None TREATMENT: PT Treatment Interventions: Therapeutic Exercise, Manual Therapy Evaluation Therapeutic Exercise: 1: *Cervical elongation 3x10, 2-3 sec holds 2: *Upper trap stretch 3x30 sec/side 3: *Cervical rotation 3x10, 2-3 sec holds at end range to tolerance Skilled Intervention: Patient was educated in proper exercise technique and purpose for exercises. Skilled judgment was used in selection of appropriate interventions. Provided written instruction for home exercise program to facilitate proper performance and compliance. Correct performance of therapeutic exercises was facilitated with verbal, visual, and tactile cuing. Manual Therapy: 1: Gentle STM to R SCM and upper trap with push to tolerance 2: Gentle cervical traction x3 min Skilled Intervention: Manual skills to improve joint mobility, ROM, and decrease pain. Utilized anatomy knowledge of the clinician, and assessment of patient's response to intervention. Billing * Evaluation Low Complexity: 1 Unit Therapeutic Exercise Treatment Minutes: 9 Manual TherapyTreatment Minutes: 15 Skilled Treatment Time Minutes (timed and untimed codes): 41 Total Session Time (minutes): 41 Session Start Time : 1005 Session Stop Time : 1046 Vladimir Mcghee PT Program_ID:[id number] Access Code: [email or web address] URL: [email or web address] Date: 06-09-2025 Prepared By: Vladimir Mcghee Program Notes Exercises - Seated Neck Sidebending Stretch - 3 x daily - 7 x weekly - 1 sets - 3 reps - Seated Chin Tuck with Neck Elongation - 1 x daily - 7 x weekly - 3 sets - 10 reps - Seated Cervical Rotation AROM - 1 x daily - 7 x weekly - 3 sets - 10 reps documented in this encounter [facility] 05-26-2025 Note HNO ID: [id number] Author: CONSTANCE KLEIN PA-C Service: ? Author Type: Physician Guide Cruise Type: Progress Notes Filed: 05/26/2025 11:25 Note Text: Chief Complaint Patient presents with: Follow Up: headache HPI Laurence Koroma is a 74 year old female who presents here today for Above Complaints.. Headache and Eye Pain: - Onset: Began around April 26. - Location: Initially behind the eye, now a dull ache in the temporal area. - Duration: Persistent for about a month. - Severity: Initially more painful, now subsided to a dull ache. - Associated Symptoms: Sensitivity and tenderness in the head, no visible rash or redness. - Aggravating Factors: Physical activity and rushing around. - Alleviating Factors: Antibiotic treatment. - Denies known trauma or injury. - Recent CT scan showed no significant issues in the arteries around the head. - Lexie has a history of poor posture and neck issues, previously treated with physical therapy. - Scheduled dental appointment to check for potential bite issues contributing to the pain. 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 Dysplasia: - Recent scan on May 22 showed no blood clot. 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 - Lexie is under the care of Dr. Wells, a vascular specialist, and is scheduled for annual scans. Past medical history, appointments, medications, allergies reviewed. [...] 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 dysplasia of both carotid arteries 08/03/2022 07/2022 LALO (generalized anxiety disorder) 12/29/2020 History [...] tablet by mouth two times a day. psyllium husk (METAMUCIL ORAL) Take by mouth [...] Take 1 capsule by mouth once daily. multivit,iron,minerals/lutein (CENTRUM SILVER ULTRA WOMEN'S ORAL) Take by mouth. Take one tablet daily L.acid/L.casei/B.bif/B.yevgeniy/FOS (PROBIOTIC BLEND ORAL) Take by mouth two times a day. refrigerated acyclovir (ZOVIRAX) 800 mg tablet 1 tablet three times daily. aspirin, enteric coated (ASPIRIN, ENTERIC COATED) 81 mg EC tablet Take 1 tablet by mouth once daily. loratadine (CLARITIN) 10 mg tablet Take 1 tablet by mouth once daily. cefADROxil (DURICEF) 500 mg capsule Take 1 (more content not included)... [facility] 05-26-2025 History of Presen t illness Narrative Chief Complaint Patient presents with: Follow Up: headache HPI Laurence Koroma is a 74 year old female who presents here today for Above Complaints.. Headache and Eye Pain: - Onset: Began around April 26. - Location: Initially behind the eye, now a dull ache in the temporal area. - Duration: Persistent for about a month. - Severity: Initially more painful, now subsided to a dull ache. - Associated Symptoms: Sensitivity and tenderness in the head, no visible rash or redness. - Aggravating Factors: Physical activity and rushing around. - Alleviating Factors: Antibiotic treatment. - Denies known trauma or injury. - Recent CT scan showed no significant issues in the arteries around the head. - Lexie has a history of poor posture and neck issues, previously treated with physical therapy. - Scheduled dental appointment to check for potential bite issues contributing to the pain. 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 Dysplasia: - Recent scan on May 22 showed no blood clot. 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 - Lexie is under the care of Dr. Wells, a vascular specialist, and is scheduled for annual scans. Past medical history, appointments, medications, allergies reviewed. [...] tablet by mouth two times a day. psyllium husk (METAMUCIL ORAL) Take by mouth [...] Take 1 capsule by mouth once daily. multivit,iron,minerals/lutein (CENTRUM SILVER ULTRA WOMEN'S ORAL) Take by mouth. Take one tablet daily L.acid/L.casei/B.bif/B.yevgeniy/FOS (PROBIOTIC BLEND ORAL) Take by mouth two times a day. refrigerated acyclovir (ZOVIRAX) 800 mg tablet 1 tablet three times daily. aspirin, enteric coated (ASPIRIN, ENTERIC COATED) 81 mg EC tablet Take 1 tablet by mouth once daily. loratadine (CLARITIN) 10 mg tablet Take 1 tablet by mouth once daily. cefADROxil (DURICEF) 500 mg capsule Take 1 capsule by mouth two times a day. No current facility-administered medications on file prior to visit. Social History SOCIAL HISTORY[1] Review of Symptoms REVIEW OF SYSTEMS Head: (+) dull temporal headache, (+) scalp tenderness Ears/Nose/Mouth/Throat: (-) sinus congestion, (-) jaw pain Neck: (+) neck pain Skin: (-) rash SEE HPI EXAM: BP 124/66 (BP Site: Left Arm, BP Position: Sitting, BP Cuff Size: Regular Adult) Pulse 75 Temp 36.4 C (97.5 F) Wt 45.4 kg (100 lb) SpO2 100% [...] Discontinued Hepatitis C Screening Discontinued Data reviewed See hpi Assessment and Plan 1. Headache, unspecified headache type (R51.9) 2. Temporal pain (R51.9) 3. Neck tightness (R29.898) - Headache and temporal pain improving; CT scan unremarkable for vascular issues. - Differential includes musculoskeletal etiology related to neck tightness, nerve-related pain, or dental issues. - Refer to neurology for further evaluation of persistent head sensitivity and pain. - Refer to physical therapy for neck muscle evaluation and treatment. - Advised patient to follow up with dentist to rule out dental causes. - Instructed patient to return sooner if symptoms worsen prior to neurology appointment. 4. 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 dysplasia (I77.3) - Reviewed recent vascular imaging showing moderate stenosis on the left side - Advised patient to follow up with vascular specialist for ongoing management. Constance Klein PA-C Recording using [employer] software for draft documentation of the visit was discussed with the patient/authorized call center support representative; all questions welcomed and answered. Patient/authorized call center support representative agreed to proceed [1] Social History Tobacco Use Smoking status: Never Smokeless tobacco: Never Vaping Use Vaping status: Never Used Substance Use Topics Alcohol use: No Drug use: No documented in this encounter [facility] 05-22-2025 Radiology Diagnostic study note [facility] Imaging Services [address] [place] [address] [id number] CTA Head AND Neck W/ Contrast MR#: [id number] Acct: [id number] Name: LAURENCE KOROMA Rep #: [id number] : 1950 F 74 From: Dimas Willett MD PCP: Dr. Fabian Mcmullen MD Status: REG CLI Study:CTA Head AND Neck W/ Contrast Date of E xam: 05/22/25 Exam# [id number] Ordering Dr: Quang Cheung PROCEDURE: CTA HEAD AND NECK W/ CONTRAST 05/22/2025 CT head without contrast REASON FOR EXAM: FMD, NEW NECK/HEAD PAIN TECHNIQUE: CTA HEAD AND NECK W/ CONTRAST Multiplanar Sagittal and Coronal images were obtained. Multi planer sagittal axial and coronal CT head without contrast CONTRAST: Isovue 370 VOLUME: 100 mL One or more dose reduction techniques were used (e.g., Automated exposure control, adjustment of the mA and/or kV according to patient size, use of iterative reconstruction technique). RADIATION DOSE SUMMARY: CTDlvol: 11.43 mGy DLP: 420.0 mGycm COMPARISON: CTA head and neck March 27, 2023. FINDINGS: CT head: No acute intracranial abnormalities. No mass effect or midline shift. The craniocervical junction is unremarkable. No ventriculomegaly. The mastoid cells and paranasal sinuses are clear. CTA head and neck: Aortic Arch: Normal size and branching pattern. No significant atherosclerotic plaque. Brachiocephalic and Subclavians: Unremarkable RIGHT Carotid: Right CCA: Unremarkable. Right ICA: Beading appearance of the right internal carotid artery from the level of C2 to skull base which can be from atherosclerotic changes or fibromuscular dysplasia. No significant stenosis. Right ECA: Calcified plaque proximally. LEFT Carotid: Left CCA: Unremarkable. Left ICA: Unremarkable. Left ECA: Calcified plaque proximally. Vertebrals: Codominant. Arise from the subclavians. Both vertebrals form the basilar. RIGHT Vertebral: Unremarkable. LEFT Vertebral: Unremarkable. Anatomy: [place] of [place] anatomy is normal. Aneurysm or avm: No intracranial aneurysms or large vascular malformations are identified. Anterior cerebral arteries: Unremarkable: Middle cerebral arteries: Unremarkable. Basilar artery: Unremarkable. Posterior cerebral arteries: Atherosclerotic calcifications of the left posterior cerebral artery causing moderate stenosis. origin of the right posterior cerebral artery with no significant stenosis. Other major branches of the posterior circulation: Unremarkable. Major venous structures: Unremarkable. Other findings: Neck: No lymphadenopathy. Lungs: Lung apices are clear. Bones: Bones are unremarkable. CT/CTA Head AND Neck W/ Contrast IMPRESSION: No acute intracranial abnormalities. Beading appearance of the right internal carotid artery from the level of C2 to skull base which can be from atherosclerotic changes or fibromuscular dysplasia without hemodynamically significant stenosis. Atherosclerotic calcifications of the left posterior cerebral artery causing moderate stenosis. Otherwise, no hemodynamically significant stenosis in the head and neck. Reading Location: [facility] CC: ELVIS Raza; Dr. Fabian Mcmullen MD ~ Mud Temperer: Signed [facility] 05-21-2025 Note HNO ID: [id number] Author: ELMIRA AMOS MA Service: ? Author Type: LICENSED NURSE Type: Progress Notes Filed: 05/22/2025 09:56 Note Text: Scan on 05/20/2025 5:22 PM by ProviderYuly PA-C: Consultation - Vascular Medicine/Vascular Surgery Outside testing, non [facility] ordered; CT. Elmira Amos MA Scan on 05/22/2025 7:13 AM by Provider, RISHABH Emery: Head and Neck [facility] 05-18-2025 Note HNO ID: [id number] Author: ELMIRA AMOS MA Service: ? Author Type: Vocational Rehabilitation Administrator Type: Progress Notes Filed: 05/18/2025 14:48 Note Text: Renal Artery US, non-[facility] ordered. Elmira Amos MA View External Imaging - Renal artery [ID [id number]] [facility] 05-18-2025 History of Presen t illness Narrative Renal Artery US, non-[facility] ordered. Elmira Amos MA View External Imaging - Renal artery [ID [id number]] documented in this encounter [facility] 05-13-2025 Telephone encounter Note Call to pt and notified her of message below from Provider. Pt will update if not improving. Asking what steroid treatment would do. Advised pt this can help reduce inflammation as possible dx of sinusitis. Pt understood, will take it one day at a time. Elmira Amos MA [facility] 05-13-2025 Miscellaneous Notes Call to pt and [...] and not a tumor. She said her jew pain is not any better at all, she has tender spot on top of her head when touched. Please advise documented in this encounter [facility] 05-13-2025 Telephone encounter Note Let the patient know that based on my exam in the office and documentation insurance is not going to cover a head CT at this time. Please complete the antibiotic first. If pain not much better by next Wed let me know and then I would proceed with the steroid Tx we had discussed. [facility] 05-13-2025 Telephone encounter Note Patient calling asking if she could have some sort of scan done to make sure it is sinus issues and not a tumor. She said her jew pain is not any better at all, she has tender spot on top of her head when touched. Please advise [facility] 05-13-2025 Telephone encounter Note Patient returned call and went over notes from Dr Mcmullen with understanding. [facility] 05-13-2025 Miscellaneous Notes Patient returned call and [...] with the antibiotic. documented in this encounter [facility] 05-12-2025 Telephone encounter Note The mildly elevated ESR is most likely due to the suspected sinus infection. The number can be raised due to any type of inflammation including arthritis. [facility] 05-12-2025 Telephone encounter Note Call to pt [...] to review and advise. Elmira Amos MA [facility] 05-12-2025 Telephone encounter Note Let patient know [...] to resolve it sooner with the antibiotic. [facility] 05-11-2025 Instructions Fabian Mcmullen MD - 05/11/2025 [...] medical attention promptly. documented in this encounter [facility] 05-11-2025 Note HNO ID: [id number] Author: FABIAN MCMULLEN MD Service: ? Author Type: Physician Type: Progress Notes Filed: 05/11/2025 23:26 Note Text: Chief Complaint Patient presents with: Pain: Right jew HPI Laurence Koroma is a 74 year old female who presents here today for an acute visit. Right jaw, jew pain, and behind right eye for 7-10 [...] mg tablet Ta (more content not included)... [facility] 05-11-2025 History of Presen t illness Narrative Chief Complaint Patient presents with: Pain: Right jew HPI Laurence Koroma is a 74 year old female who presents here today for an acute visit. Right jaw, jew pain, and behind right eye for 7-10 [...] which included preparing to see the patient, [id number] patient care, completing clinical documentation, performing a medically appropriate examination, counseling and educating the patient/family/caregiver and ordering medications, tests, or procedures. Recording using [employer] software for draft documentation of the visit was discussed with the patient/authorized call center support representative; all questions welcomed and answered. Patient/authorized call center support representative agreed to proceed documented in this encounter [facility] 04-27-2025 Note HNO ID: [id number] Author: ELMIRA AMOS MA Service: ? Author Type: Vocational Rehabilitation Administrator Type: Progress Notes Filed: 04/27/2025 14:33 Note Text: Carotid Duplex US. View External Imaging - Carotid duplex [ID [id number]] [facility] 04-27-2025 History of Presen t illness Narrative Carotid Duplex US. View External Imaging - Carotid duplex [ID [id number]] documented in this encounter [facility] 03-18-2025 Telephone encounter Note Patient notified and voiced understanding. Sol Lowery MA [facility] 03-18-2025 Miscellaneous Notes Patient notified and voiced understanding. Sol Lowery MA Urine is normal. Constance Klein PA-C documented in this encounter [facility] 03-18-2025 Telephone encounter Note Urine is normal. Constance Klein PA-C [facility] 03-17-2025 Note HNO ID: [id number] Author: CONSTANCE KLEIN PA-C Service: ? Author Type: Physician Guide Cruise Type: Progress Notes Filed: 03/17/2025 13:55 Note Text: Chief Complaint Patient presents with: Recheck: GI issues HPI Laurence Koroma is a 74 year old female who presents here today for wellness visit. Saw Dr Friend, taking 1tbs metamucil with 10oz and daily [...] Vaccine(2 - T (more content not included)... [facility] 03-17-2025 History of Presen t illness Narrative [...] Lymph 1.00 - 4.00 k/uL 1.98 2.99 Coamo% % 8.0 9.7 Abs Coamo <0.87 k/uL 0.48 0.56 Eosin% % 1.8 [...] making components. I have reviewed the Physician Guide Cruise (PA) student's documentation and verified the findings in the note as written. Any additions or changes are noted in bold/italics. Constance Klein PA-C documented in this encounter [facility] 03-10-2025 Telephone encounter Note Pt notified of same. Elina Mckenzie LPN [facility] 03-10-2025 Miscellaneous Notes Pt notified of john. Elina Mckenzie LPN Repeat CBC is normal. Constance Klein PA-C documented in this encounter [facility] 03-10-2025 Telephone encounter Note Repeat CBC is normal. Constance Klein PA-C [facility] 03-02-2025 Telephone encounter Note The following approved [...] 30 min. Authorizing Provider: CONSTANCE KLEIN PA-C [facility] 03-02-2025 Miscellaneous Notes The following approved medication [...] 2025 10:16 AM documented in this encounter [facility] 03-02-2025 Telephone encounter Note Prescription Refill Information [...] Mckenzie LPN March 02, 2025 1:34 PM [facility] 03-02-2025 Telephone encounter Note Prescription Refill Information [...] and stay upright for 30 min. Dionna Barcenas [facility] March 02, 2025 10:16 AM [facility] 02-26-2025 Note HNO ID: [id number] Author: ELINA MCKENZIE LPN Service: ? Author Type: LICENSED NURSE Type: Progress Notes Filed: 02/26/2025 07:22 Note Text: Scan on 02/25/2025 7:35 PM by ProviderYuly PA-C: Miscellaneous Lab Scan on 02/26/2025 4:35 AM by ProviderYuly PAJanetteC: Miscellaneous Lab [facility] 02-26-2025 History of Presen t illness Narrative Scan on 02/25/2025 7:35 PM by Yuly Mills PA-C: Miscellaneous Lab Scan on 02/26/2025 4:35 AM by Yuly Mills PA-C: Miscellaneous Lab documented in this encounter [facility] 02-20-2025 Note HNO ID: [id number] Author: ELINA MCKENZIE LPN Service: ? Author Type: LICENSED NURSE Type: Progress Notes Filed: 02/20/2025 13:19 Note Text: Scan on 02/20/2025 12:41 PM by Yuly Mills PA-C: Chemistry Scan on 02/20/2025 12:14 PM by Yuly Mills PA-C: Hematology [facility] 02-20-2025 History of Presen t illness Narrative Scan on 02/20/2025 12:41 PM by Yuly Mills PA-C: Chemistry Scan on 02/20/2025 12:14 PM by Yuly Mills PA-C: Hematology documented in this encounter [facility] 02-20-2025 Evaluation note Diagnosis Onset Date Resolution Clostridium difficile diarrhea acute February 20, 2025 8: 51am Diverticulitis acute February 20, 2 025 8:51am [facility] Work Phone: 1(821) 322-417705-09-2025 Evaluation note* Diagnosis Onset Date Resolution Status Admit Date Clostridium difficile diarrhea acute February 20, 2025 8:51am Diverticulitis acute February 20, 2 025 8:51am Clostridium difficile diarrhea acute March 04, 2025 1:34pm Diverticulitis acute March 04, 2025 1:34pm [facility] Work Phone: 1(916) 858-135105-09-2025 Evaluation note* Diagnosis Onset Date Resolution Status Admit Date Clostridium difficile diarrhea acute February 20, 2025 8:51am Diverticulitis acute February 20, 2 025 8:51am Clostridium difficile diarrhea acute March 04, 2025 1:34pm Diverticulitis acute March 04, 2025 1:34pm 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 dysplasia chronic J mary 2024 1:00pm [facility] Work Phone: 1(554) 137-245405-09-2025 Evaluation note* Diagnosis Onset Date Resolution Status Admit Date Clostridium difficile diarrhea acute February 20, 2025 8:51am Diverticulitis acute February 20, 2 025 8:51am Clostridium difficile diarrhea acute March 04, 2025 1:34pm Diverticulitis acute March 04, 2025 1:34pm 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 dysplasia chronic J mary 2024 1:00pm Headache noneactive May 20 1:15pm [facility] Work Phone: 1(838) 404-313805-09-2025 Evaluation note* Diagnosis Onset Date Resolution Status Admit Date Clostridium difficile diarrhea acute February 20, 2025 8:51am Diverticulitis acute February 20, 2 025 8:51am Clostridium difficile diarrhea acute March 04, 2025 1:34pm Diverticulitis acute March 04, 2025 1:34pm 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 dysplasia chronic J mary 2024 1:00pm 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 dysplasia chronic A ugust 2024 1:15pm Headache noneactive May 20 1:15pm [facility] Work Phone: 1(496) 500-686905-06-2025 Telephone encounter Note* Telephone Encounter - Elina Mckenzie LPN - 02/17/2025 12:18 PM EDT Patient notified of results and provider's instructions. Patient verbalizes understanding. Pt advises that she has an appointment this 02/20/[address] Quigley. Copy of stool studies faxed to Dr Quigley's office. Elina Mckenzie LPN [facility]05-06-2025 Miscellaneous Notes* Telephone Encounter - Elina Mckenzie LPN - 02/17/2025 12:18 PM EDT Patient notified of results and provider's instructions. Patient verbalizes understanding. Pt advises that she has an appointment this 02/20/[address] at [address] Quigley. Copy of stool studies faxed to Dr Quigley's office. Elina Mckenzie LPN * Telephone Encounter - Constance lKein PA-C - 02/17/2025 10:49 AM EDT Stool [...] results. Constance Klein PA-C documented in this encounterBar[facility] Telephone encounter Note * Telephone Encounter - Constance Klein PA-C - 02/17/2025 10:49 AM EDT Stool tests are negative. I will defer further testing for gastro. She can do cbc before appointment. That's fine. Just want to trend. Constance Klein PA-C [facility]05-06-2025 Telephone encounter Note* Telephone Encounter - Margaret Reyes RN - 02/17/2025 8:24 AM EDT Opened in error. Margaret Reyes RN [facility]05-06-2025 Miscellaneous Notes* Telephone Encounter - Margaret Reyes RN - 02/17/2025 8:24 AM EDT Opened in error. Margaret Reyes RN documented in this encounterBarney [facility]05[facility] Telephone encounter Note * Telephone Encounter - [...] back. Pt verbalizes understanding. Elina Mckenzie LPN [facility]05-05-2025 Telephone encounter Note* Telephone Encounter - Constance Klein PA-C - 02/16/2025 10:39 AM EDT Additional labs are all wnl. Repeat CBC in 1 month to trend values. Still waiting on some of the stool results. Constance Klein PA-C [facility]05-01-2025 NoteHNO ID: [id number] Author: CONSTANCE KLEIN PA-C Service: ? Author Type: Physician Guide Cruise Type: Progress Notes Filed: 02/12/2025 14:42 Note [...] mouth and stay upright for 30 min. L.acid/L.casei/B.bif/B.yvegeniy/FOS (PROBIOTIC BLEND ORAL) Take by mouth. acyclovir [...] Used Substance Use Topics (more content not included)...[facility]05-01-2025 History of Present illness Narrative* Constance Klein [...] throat (J02.9) Constance Klein PA-C Recording using [employer] software for draft documentation of the visit was discussed with the patient/authorized call center support representative; all questions welcomed and answered. Patient/authorized call center support representative agreed to proceed documented in this encounterBarney [facility]04[facility] Telephone encounter Note * Telephone Encounter - Constance Klein PA-C - 02/11/2025 12:18 PM EDT Will discuss tomorrow. [facility]04-30-2025 Miscellaneous Notes* Telephone Encounter - Constance Klein [...] with her at appt. documented in this encounterBarney [facility]04-30-2025 Telephone encounter Note * Telephone Encounter - [...] is worried about that. Elina Mckenzie LPN [facility]04-30-2025 Telephone encounter Note* Telephone Encounter - Constance [...] reschedule her for the routine health visit. [facility]04-30-2025 Telephone encounter Note* Telephone Encounter - Osmar Bradford RN - 02/11/2025 10:49 AM EDT Pt reports she has appt with Eric Klein tomorrow at 1:20 pm. Pt reports she has not received the results of the CT scan done at [facility] ER on 01/26/25. Asking if provider would review those results with her at appt. [facility]04-17-2025 NoteHNO ID: [id number] Author: KATIE CHAUDHARI APRN.CAMPGROUND ATTENDANT Service: ? Author Type: Nurse Practitioner Type: [...] Depression Screening due on (more content not included)...[facility]04-17-2025 History of Present illness Narrative* Katie Chaudhari, WAYLON.CAMPGROUND ATTENDANT - 01/29/2025 1:09 PM EDT Chief Complaint [...] frequentBM's will order stool studies. Katie Chaudhari APRN.SONDRA documented in this encounterBarney [facility]04-15-2025 NoteHNO ID: [id number] Author: SOL LOWERY MA Service: ? Author Type: Vocational Rehabilitation Administrator Type: Progress Notes Filed: 01/27/2025 14:53 Note Text: Scan on 01/26/2025 3:24 PM by ProviderYuly PA-C: Consultation - Emergency Medicine Appointment ER - Katie 01/30/2025 Sol Lowery [facility]04-15-2025 History of Present illness Narrative* Sol Lowery MA - 01/27/2025 2:52 PM EDT Scan on 01/26/2025 3:24 PM by Yuly Mills PA-C: Consultation - Emergency Medicine Appointment ER - Katie 01/30/2025 Sol Lowery MA documented in this encounterBarney [facility]04-[facility]25 Telephone encounter Note * Telephone Encounter - Osmar Bradford RN - 01/27/2025 1:20 PM EDT Pt returned call and given provider's message below with verbalized understanding. [facility]04-15-2025 Miscellaneous Notes* Telephone Encounter - Osmar Bradford [...] avoid. She started taking a probiotoc, called [facility]. Patient asking provider if there is anything she should be doing or watching for in the mean time between now and her appt with aKtie on Sunday? She wants to avoid getting C-Diff again or having to go back to the hospital in the future. Margaret Reyes RN documented in this encounterBarney [facility]04-15-2025 Telephone encounter Note * Telephone Encounter - Elmira Amos MA - 01/27/2025 12:28 PM EDT Call to patient, received VM. LM to return call to office and speak with Triage Nurse. Please update pt on Provider's response below. Elmira Amos MA [facility]04-15-2025 Telephone encounter Note* Telephone Encounter - Katie Chaudhari APRN.CNP - 01/27/2025 11:59 AM EDT Unfortunately Cdiff can occur with any antibiotic use. Would recommend patient stay well hydrated and keep track of amount of loose stools each day. [facility]04-15-2025 Telephone encounter Note* Telephone Encounter - Margaret [...] avoid. She started taking a probiotoc, called [facility]. Patient asking provider if there is anything she should be doing or watching for in the mean time between now and her appt with Katie on Sunday? She wants to avoid getting C-Diff again or having to go back to the hospital in the future. Margaret Reyes RN [facility]03-03-2025 Telephone encounter Note* Telephone Encounter - Sol [...] Lowery MA December 15, 2024 2:39 PM [facility]03-03-2025 Miscellaneous Notes* Telephone Encounter - Sol Lowery [...] 15, 2024 1:28 PM documented in this encounterBarney [facility]03-03-2025 Telephone encounter Note * Telephone Encounter - [...] Margaret Allan December 15, 2024 1:28 PM [facility]12-23-2024 Telephone encounter Note* Telephone Encounter - Sol [...] Lowery MA October 06, 2024 12:03 PM [facility]12-23-2024 Miscellaneous Notes* Telephone Encounter - Sol Lowery [...] by mouth two times a day. Johanna Martinmaddie October 06, 2024 11:59 AM documented in this encounterBarney Children'S [facility] Center12-23-2024 Telephone encounter Note * Telephone Encounter - [...] by mouth two times a day. Johanna [facility] October 06, 2024 11:59 AM [facility]12-17-2024 Telephone encounter Note* Telephone Encounter - Sol Lowery MA - 09/30/2024 11:02 AM EST Patient notified. Sol Lowery MA [facility]12-17-2024 Miscellaneous Notes* Telephone Encounter - Sol Lowery [...] and walking for exercise. documented in this encounterBarney Children'S Medical Center12-17-2024 NoteHNO ID: [id number] Author: KATIE CHAUDHARI APRN.[facility] Service: ? Author Type: Nurse Practitioner [...] No ectopy. Health Maintenan (more content not included)...[facility] 09-30-2024 History of Present illness Narrative* Katie Chaudhari APRN.CAMPGROUND ATTENDANT - 09/30/2024 10:28 AM EST Chief Complaint [...] sooner if worsening of symptoms Katie Chaudhari APRN.CAMPGROUND ATTENDANT documented in this encounterBarney Children'S Medical Center12-17-2024 Telephone encounter Note * Telephone Encounter - Fabian Mcmullen MD - 09/30/2024 10:19 AM EST Let patient know what she is taking is good. [facility]12-16-2024 Telephone encounter Note* Telephone Encounter - Corrie [...] is enough vitamin D? Corrie Koroma RN [facility]12-16-2024 Telephone encounter Note* Telephone Encounter - Fabian Mcmullen MD - 09/29/2024 4:19 PM EST Let patient know her bone strength study shows improvement. Cont the fosamax. Also make sure she istrying to get 2,000 international unit(s) 's of Vit D a day, Calcium 600-800 mg twice a day and walking for exercise. [facility]12-16-2024 Telephone encounter Note* Telephone Encounter [...] apt 09-30-24 with provider/team. Frank Sharpe LPN [facility]12-16-2024 Miscellaneous Notes* Telephone Encounter - [...] provider/team. Frank Sharpe LPN documented in this encounterBarney Children'S Medical Center12-13-2024 History of Present illness Narrative* Mehnaz Walsh RT(Debbie) - 09/26/2024 1:05 PM EST Radiology Service [...] PATIENT PRESENTS WITH AN IMPLANTABLE OR ATTACHED LEAD TRAINER: No RADIOLOGY DEPARTMENT: Bone Density PERIPHERAL IV DATA: Not applicable SIGNED BY: RT Bijal(Debbie) September 26, 2024 12:59 PM documented in this encounterBarney Children'S Medical Center12-13-2024 NoteHNO ID: [id number] Author: KADEN, MEHNAZ, RT(R) Service: ? Author Type: Technologist Type: Progress [...] PATIENT PRESENTS WITH AN IMPLANTABLE OR ATTACHED LEAD TRAINER: No RADIOLOGY DEPARTMENT: Bone Density PERIPHERAL IV DATA: Not applicable SIGNED BY: RT Bijal(R) September 26, 2024 12:59 [facility]12-09-2024 NoteHNO ID: [id number] Author: CONSTANCE KLEIN PA-C Service: ? Author Type: Physician Guide Cruise Type: Progress Notes Filed: 09/22/2024 12:03 Note [...] Visit due on (more content not included)... [facility]12-[facility] History of Present illness Narrative* Constance Klein [...] exercise Constance Klein PA-C documented in this encounterBarney Children'S [facility] Center11-26-2024 Telephone encounter Note * Telephone Encounter - Sol Lowery MA - 09/09/2024 11:10 AM EST Patient notified and voiced understanding. Sol Lowery MA [facility]11-26-2024 Miscellaneous Notes* Telephone Encounter - Sol Lowery [...] to cut them out. documented in this encounterBarney Children'S Medical Center11-26-2024 Telephone encounter Note * Telephone Encounter - [...] them and try to cut them out. [facility]11-26-2024 Telephone encounter Note* Telephone Encounter - Fabian [...] was identified. 09/09/2024 by Fabian Mcmullen MD [facility]11-26-2024 Miscellaneous Notes* Telephone Encounter - Fabian Mcmullen [...] Thank you. Cristina Ware. documented in this encounterBarney Children'S Medical Center11-26-2024 Telephone encounter Note * Telephone Encounter - [...] 09/22/2024 Please advise. Thank you. Cristina Ware. [facility]11-25-2024 NoteHNO ID: [id number] Author: CONSTANCE KLEIN PA-C Service: ? Author Type: Physician Guide Cruise Type: Progress Notes Filed: 09/08/2024 12:03 Note Text: Chief Complaint Patient presents with: 2 wk BP check HPI Laurence Koroma is a 73 year old female who presents here today for Above Complaints.. 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 When she checks her [...] 10/31/2022 RSV Vaccine(1 - (more content not included)...[facility] 09-08-2024 History of Present illness Narrative* Constance Klein PA-C - 09/08/2024 11:31 AM EST Chief Complaint Patient presents with: 2 wk BP check HPI Laurence Koroma is a 73 year old female who presents here today for Above Complaints.. 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 When she checks her BP [...] TABLET Constance Klein PA-C documented in this encounterBarney Children'S Medical Center11-11-2024 NoteHNO ID: [id number] Author: CONSTANCE KLEIN PA-C Service: ? Author Type: Physician Guide Cruise Type: Progress Notes Filed: 08/25/2024 12:17 Note [...] Directive Discussion Completed Alba (more content not included)...[facility]11-11-2024 History of Present illness Narrative* Constance Klein [...] weeks. Constance Klein PA-C documented in this encounterBarney Children'S Medical Center11-11-2024 Nurse Note* Laurence Steele LPN - 08/25/2024 11:31 AM EST 08/25/2024: Home BP Cuff Validated. Home BP: 119/49 Office BP: 118/62 [facility]11-11-2024 Nurse Note* Laurence Steele LPN - 08/25/2024 11:31 AM EST 08/25/2024: Home BP Cuff Validated. Home BP: 119/49 Office BP: 118/62 documented in this encounterBarney Children'S Medical Center10-25-2024 Nurse Note* Sol Lowery MA - 08/08/2024 1:13 PM EDT Aayush bp Average 164/68 171/69 165/65 162/67 163/70 169/67 172/69 Sol Lowery MA [facility]10-25-2024 Nurse Note* Sol Lowery MA - 08/08/2024 1:13 PM EDT Aayush bp Average 164/68 171/69 165/65 162/67 163/70 169/67 172/69 Sol Lowery MA documented in this encounterBarney Children'S Medical Center10-25-2024 Instructions* Patient Instructions* Fabian Mcmullen MD - [...] review all the medicines you take, even jbyb-uud-tzjowvh medicines. As you get older, the way [...] have certain medical conditions. documented in this encounterBarney Children'S Medical Center10-25-2024 NoteHNO ID: [id number] Author: FABIAN MCMULLEN MD Service: ? Author [...] - General (Family Medicine) Dr. Wells: Vascular [employer] CARTOONIST Optho Medical/Family history review Reviewed and updated [...] Take 1 tab (more content not included)... [facility]10[facility] History of Present illness Narrative* Fabian Mcmullen [...] - General (Family Medicine) Dr. Wells: Vascular MOTION PICTURES CARTOONIST Optho Medical/Family history review Reviewed and updated [...] Abs Lymph 1.00 - 4.00 k/uL 2.50 Coamo% % 7.9 Abs Coamo <0.87 k/uL 0.52 Eosin% % 2.0 Abs Eosin <0.46 k/uL 0.13 Baso% % 0.5 Abs Baso <0.11 k/uL 0.03 Immature Gran % % 0.3 IMMATURE GRANS (ABS) <0.10 k/uL <0.03 NRBC /100 WBC 0.0 Absolute nRBC <0.01 k/uL <0.01 DTYPE Auto Color Yellow Yellow Clarity Clear Clear Glucose, Urine Negative Negative Bilirubin, Urine Negative Negative Ketones, Urine Negative Trace ! Specific Paoli, Ur 1.005 - 1.030 1.020 Hemoglobin/Blood,Ur Negative [...] which included preparing to see the patient, lhhr-cj-krta patient care, completing clinical documentation, performing a medically appropriate examination, counseling and educating the patient/family/caregiver and ordering medications, tests, or procedures. Fabian Mcmullen MD documented in this encounterBarney Children'S Medical Center10-17-2024 Telephone encounter Note * Telephone Encounter - Elina Mckenzie LPN - 07/31/2024 8:39 AM EDT Pt notified of Constance's instructions. Pt verbalizes understanding and repeats instructions back correctly. Elina Mckenzie LPN [facility]10-17-2024 Miscellaneous Notes* Telephone Encounter - Elina Mckenzie [...] D? Constance Klein PA-C documented in this encounterBarney Children'S Medical Center10-17-2024 Telephone encounter Note * Telephone Encounter - Constance Klein PA-C - 07/31/2024 8:31 AM EDT Have her decrease to just 1000 international unit(s) at this time and then discuss with Dr. Mcmullen at upcoming visit. Constance Klein PA-C [facility]10-17-2024 Telephone encounter Note* Telephone Encounter - Elina Mckenzie LPN - 07/31/2024 8:27 AM EDT Spoke with pt and reviewed results. Pt advises that she takes vit D3 1000 international unit(s) twice daily and takes Centrum Silver multivitamin which has 1000 international unit(s) of vit D3 so shetakes a total of 3000 international unit(s) vit D 3 daily. Elina Mckenzie LPN [facility]10-17-2024 Telephone encounter Note* Telephone Encounter - Constance Klein PA-C - 07/31/2024 8:13 AM EDT Labs will be discussed at upcoming visit but her vit D is high. We have in the system that she is only on 2000 international unit(s) daily of Vit D. Is this correct? No other vitamins that have vit D? Constance Klein PA-C [facility]08-23-2024 Telephone encounter Note* Telephone Encounter - Heidy Mckeon - 06/06/2024 11:01 AM EDT Patient is requesting [facility] for pharmacy. [facility]08-23-[facility]24 Miscellaneous Notes* Telephone Encounter - Heidy Mckeon - 06/06/2024 11:01 AM EDT Patient is requesting [facility] for pharmacy. * Telephone Encounter - Heidy [...] 06, 2024 11:00 AM documented in this encounterBarney Children'S Medical Center08-23-2024 Telephone encounter Note * Telephone Encounter - [...] Heidy Mckeon June 06, 2024 11:00 AM [facility]08-12-2024 Telephone encounter Note* Telephone Encounter - Sol [...] MA May 26, 2024 9:36 AM T [facility]08-12-2024 Miscellaneous Notes* Telephone Encounter - Sol Lowery [...] 26, 2024 8:14 AM documented in this encounterBarney Children'S Medical Center08-12-2024 Telephone encounter Note * Telephone Encounter - [...] Heidy Mckeon May 26, 2024 8:14 AM [facility]07-22-2024 History of Present illness Narrative* Sol Lowery MA - 05/05/2024 2:57 PM EDT Scan on 05/01/2024 5:33 PM by Provider, LILIA EmeryC: Ultrasound Scan on 05/01/2024 5:35 PM by Provider, Yuly, PA-C: Ultrasound Carotid and Renal US. Sol Lowery MA documented in this encounterBarney Children'S Medical Center07-15-2024 History of Present illness Narrative* Katie Chaudhari APRN.CAMPGROUND ATTENDANT - 04/28/2024 9:03 AM EDT Chief Complaint [...] to follow up with provider. Katie Chaudhari APRN.CAMPGROUND ATTENDANT documented in this encounterBarney Children'S Medical Center07-15-2024 Telephone encounter Note * Telephone Encounter - [...] in 2012. 9. OTHER SYMPTOMS: Denies numbness/tingling. Lorimor a tingling and stinging on this area of arm yesterday. This lasted while she was driving for an hour and a half. Still stinging later that evening yesterday. Lorimor lightheaded yesterday evening. Eating and drinking normally, urinating normally. Patient feels she has a blood clot. 10. : n/a Protocols used: Arm Xqxrxi-LNUVD-PL [facility]07-15-2024 Miscellaneous Notes* Telephone Encounter - Noemi Delacruz [...] in 2012. 9. OTHER SYMPTOMS: Denies numbness/tingling. Lorimor a tingling and stinging on this area of arm yesterday. This lasted while she was driving for an hour and a half. Still stinging later that evening yesterday. Lorimor lightheaded yesterday evening. Eating and drinking normally, urinating normally. Patient feels she has a blood clot. 10. : n/a Protocols used: Arm Zmjvqh-EMUAG-RJ documented in this encounterBarney Children'S Medical Center06-14-2024 Telephone encounter Note * Telephone Encounter - [...] Kaye Allan March 28, 2024 9:29 AM [facility] Work Phone: [phone] Miscellaneous Notes* Telephone Encounter - Kaye Pacheco [...] 28, 2024 9:29 AM documented in this encounterBarney Children'S Medical Center05-29-2024 Telephone encounter Note * Telephone Encounter - Fabian Mcmullen MD - 03/12/2024 6:21 PM EDT The following approved medication requests have been transmitted electronically. Requested Prescriptions Signed Prescriptions Disp Refills zolpidem (AMBIEN) 10 mg 90 tablet 1 Sig: Take 1 tablet by mouth at bedtime as needed for up to 180 days. FOR INSOMNIA Authorizing Provider: FABIAN MCMULLEN MD [facility]05-29-2024 Miscellaneous Notes* Telephone Encounter - Fabian Mcmullen [...] Thank you. Johanna Oswald. documented in this encounterBarney Children'S Medical Center05-29-2024 Telephone encounter Note * Telephone Encounter - [...] care: 08/08/2024 Please advise. Thank you. Johanna Whitfield [facility]04-25-2024 History of Present illness Narrative* Constance Klein [...] prior. Constance Klein PA-C documented in this encounterBarney Children'S Medical Center04-16-2024 Miscellaneous Notes* Telephone Encounter - Sol Lowery [...] CONSTANCE KLEIN PA-C * Telephone Encounter - Norman Dionna Allan - 01/29/2024 9:09 AM EDT [...] spray Class: Normal Route: EACH NOSTRIL Order: [id number] E-Prescribing Status: Receipt confirmed by pharmacy (01/16/2023 9:49 AM EDT) Please send to [facility] [place], today, out of medication. Patient has been identified by name and birthdate. Duration of symptoms: N/A Person calling: self Call patient at: on cell [phone] (home) [phone] (cell) Was an appointment scheduled: No Closing statement: Results or non-symptom based questions: Thank you for calling [facility], your call will be returned within the next business day. Dionna Allan documented in this encounterBarney Children'S Medical Center03-11-2024 Miscellaneous Notes* Telephone Encounter - Danielle Quarles [...] normal. Constance Klein PA-C documented in this encounterBarney Children'S Medical Center03-07-2024 History of Present illness Narrative* Halley Evans [...] PATIENT PRESENTS WITH AN IMPLANTABLE OR ATTACHED LEAD TRAINER: No RADIOLOGY DEPARTMENT: General X-ray: Exam(s) Completed: Chest X-Ray PERIPHERAL IV DATA: Not applicable SIGNED BY: RT Mike(Debbie) December 20, 2023 1:20 PM documented in this encounterBarney Children'S Medical Center03-07-2024 History of Present illness Narrative* Constance Klein [...] prn. Constance Klein PA-C documented in this encounterBarney Children'S Medical Center02-27-2024 Miscellaneous Notes* Telephone Encounter - Elina Mckenzie LPN - 12/11/2023 11:46 AM EST Pt notified of same. Advises she did not picker machine operator the Ambien but did just see that she has a refill left. Advises she thinks they may have this on hold for her to picker machine operator. Pt will check with pharmacy.Elina Mckenzie LPN [...] Thank you. Heidy Mckeon. documented in this encounterBarney Children'S Medical Center02-20-2024 History of Present illness Narrative* Ana Nieto AuD - 12/04/2023 8:20 AM EST Images from the original note were not included. [facility] [address] [id number] Name: Laurence Koroma : 1950 Date: 12/04/23 [...] expressed understanding. Electronically Signed by: Teddy Win, [facility] 12/04/23 8:20 AM Audiogram: documented in this [id number] History of Present illness Narrative* Alexei Kruger MD - 12/04/2023 8:07 AM EST [facility] [address] [facility] [address] [facility] [address] Dept: [phone] Alexei Kruger MD Laurence Espinosa Koroma 73 y.o. female Patient presents with [...] subma ndibular glands, clear salivary flow from Stockton's ducts, no stones of Tita's ducts Temporomandibular [...] well to amplification. An appointment with the treasury accountant in the office is offered if the [...] for dizziness and light-headedness. documented in this [id number] History of Present illness Narrative* Elina Mckenzie LPN - 11/29/2023 8:19 AM EST Scan on 11/27/2023 3:15 AM by Provider, RISHABH Emery: Consultation - Emergency Medicine documented in this encounterBarney Children'S Medical Center02-06-2024 Miscellaneous Notes* Telephone Encounter - Kristen Griffin RN - 11/20/2023 12:36 PM EST Pt called and is notified of providers message and instructions. Pt voices understanding. Faxed Pt Snapshot to [facility] at fax # [phone]. Kristen Griffin RN * Telephone Encounter - Fabian Mcmullen MD - 11/20/2023 12:17 PM EST Let patient know based on her last exam I would not place on a new course of antibiotics. Advise her to finish the prednisone and keep her appt with ENT. Please fax a copy of patient's Snap Shot to [facility]. * Telephone Encounter - Corrie Koroma [...] advise, Corrie Koroma RN documented in this encounterBarney Children'S Medical Center02-02-2024 Instructions* Patient Instructions* Fabian Mcmullen MD - 11/16/2023 10:[address] Mcmullen an update on how tour ear feels on Sunday 11/19 or 11/20. documented in this encounterBarney Children'S Medical Center02-02-2024 History of Present illness Narrative* Fabian Mcmullen [...] List BP Controlled (<130/80) Never done Covid-19 Vaccine(5 - 2023-24 season) due on 06/15/2023 Advance Directive Discussion [...] week. Fabian Mcmullen MD documented in this encounterBarney Children'S Medical Center11-21-2023 Miscellaneous Notes* Telephone Encounter - Fabian Mcmullen [...] vm. Marianela Petersen Ma documented in this encounterBarney Children'S Medical Center11-09-2023 Miscellaneous Notes* Telephone Encounter - Susan Schneider Ma - 08/23/2023 10:20 AM EST Message left on pt identified VM that scripts refilled. Susan Schneider Ma * Telephone Encounter - Fabian Mcmullen MD - 08/23/2023 10:17 AM EST Et patient know [facility] The following approved medication requests have been [...] FABIAN MCMULLEN MD * Telephone Encounter - Norman Dionna Allan - 08/23/2023 10:05 AM EST Laurence Koroma is calling Fabian Mcmullen MD today to change her Pharmacy due to problems with 2 medications at current Pharmacy: potassium chloride SR (MICRO-K) 8 mEq cpER zolpidem (AMBIEN) 10 mg Please send [facility], please send today. Patient has been identified by name and birthdate. Duration of symptoms: N/A Person calling: self Call patient at: at home [phone] (home) [phone] (cell) Was an appointment scheduled: No Closing statement: Results or non-symptom based questions: Thank you for calling [facility], your call will be returned within the next business day. Dionna Allan documented in this encounterBarney Children'S Medical Center10-25-2023 Instructions* Patient Instructions* Fabian Mcmullen MD - 08/08/2023 5:15 PM EDT Consider getting the RSV vaccine from a local pharmacy. Consider getting a Tdap for tetanus update at the health dept. Please get lab done on or after prior to your next visit. documented in this encounterBarney Children'S Medical Center10-25-2023 History of Present illness Narrative* Fabian Mcmullen [...] addressed below and in ROS. Patient sees [facility] - last visit 08/07/2023. Had [...] Negative Ketones, Urine Negative Trace (A) Specific Paoli, Ur 1.005 - 1.030 1.020 Hemoglobin/Blood,Ur Negative [...] mg/day for 50+ - Patient was counseled miph-fs-wres by myself (the billing provider) for the [...] which included preparing to see the patient, hizu-iv-yach patient care, completing clinical documentation, performing a medically appropriate examination, counseling and educating the patient/family/caregiver and ordering medications, tests, or procedures. Patient was asked at end of visit if they had any questions or input regarding the plan of care we had discussed. Fabian Mcmullen MD documented in this encounterBarney Children'S Medical Center10-25-2023 History of Present illness Narrative* Elina Mckenzie LPN - 08/08/2023 7:59 AM EDT Scan on 08/07/2023 4:47 PM by ProviderYuly PA-C: CT Scan Scan on 08/07/2023 3:44 PM by ProviderYuly PA-C: CT Scan documented in this encounterBarney Children'S Medical Center10-20-2023 History of Present illness Narrative* Shital Hatfield [...] 03, 2023 12:08 PM documented in this encounterBarney Children'S Medical Center10-20-2023 History of Present illness Narrative* Daniela Mcdowell PA-C - 08/03/2023 12:00 PM EDT This note was created using [employer]. Subjective Laurence Koroma is a 72 year [...] No diarrhea or vomiting.She has tried multiple lnqe-soz-hxhksbq cough medications without relief. Review of Systems [...] antibiotic. Daniela Mcdowell PA-C documented in this encounterBarney Children'S Medical Center09-27-2023 History of Present illness Narrative* Elina Mckenzie LPN - 07/11/2023 11:41 AM EDT Scan on 07/11/2023 11:25 AM by Provider, RISHABH Emery: Consultation - Cardiology documented in this encounterBarney Children'S Medical Center09-12-2023 Miscellaneous Notes* Telephone Encounter - Elina Mckenzie [...] need to notify patient. Sol Lowery MA Rawjinder 04/2023 Nov 07/2023 Last refill; 01/2023 * [...] and advise. Nicky Prajapati documented in this encounterBarney Children'S Medical Center08-31-2023 Miscellaneous Notes* Telephone Encounter - Abimbola Palomares [...] and advise. Abimbola Allan documented in this encounterBarney Children'S Medical Center08-01-2023 Miscellaneous Notes* Telephone Encounter - Chey Ponce Cma - 05/15/2023 9:21 AM EDT Forms faxed to number given. Patient notified Chey Ponce Cma * Telephone Encounter - Katie Chaudhari APRN.CNP - 05/15/2023 9:16 AM EDT Forms completed and returned to PA to be faxed. * Telephone Encounter - Chey Ponce Cma - 05/14/2023 3:33 PM EDT Type of form: Short-term Disability Form received via fax When form is completed, Fax form to [phone] Form has been forwarded to Nurse Practictioner: Katie Ponce Cma documented in this encounterBarney Children'S Medical Center07-31-2023 Miscellaneous Notes* Telephone Encounter - Fabian Mcmullen [...] receive fax today. * Telephone Encounter - Kristen Griffin RN - 05/11/2023 9:22 AM EDT [...] call Pt and advise. documented in this encounterBarney Children'S Medical Center07-31-2023 History of Present illness Narrative* Katie Chaudhari APRN.CAMPGROUND ATTENDANT - 05/14/2023 10:32 AM EDT Chief Complaint [...] and continuing tohave soft stools. Katie Chaudhari APRN.CAMPGROUND ATTENDANT documented in this encounterBarney Children'S Medical Center07-14-2023 History of Present illness Narrative* Marianela Petersen Ma - 04/27/2023 11:46 AM EDT Scan on 04/27/2023 9:38 AM by Provider, External, PA-C: Consultation - Emergency Medicine Scan on 04/27/2023 11:11 AM by Yuly Mills PA-C Scan on 04/27/2023 8:23 AM by Yuly Mills PA-C: CT Scan documented in this encounterBarney Children'S Medical Center07-14-2023 Discharge summary Author Tavon Rodriguez [facility] April 27, 2023 9:02am Note Date/Time April 27, 2023 5:58 am [facility] Medical Records Department [address] [place] [address] Emergency Department Summary 04/27/23 MR#: [id number] Acct: [id number] Name: LAURENCE KOROMA Rep #:[id number] : 1950 72 From: Kaye Gardner MD PCP: Dr. Fabian Mcmullen MD Status:[facility] ER Location: ED HPI <Dr. Kaye Gardner [...] arrival her initial blood pressure was 60/40. [facility] <Dr. Kaye Gardner MD - Last Filed: 04/27/23 07:02> [facility] Medical History Aortic insufficiency Chronic back pain [...] 04/18/23 [History Last Taken Unknown] glucosamine 750 ok-zeoyjcouqx-crm no.1 625 mg-C 30 hz-xcxt-hmsj tablet 1 tab PO BID 04/18/23 [History [...] Const Vital Signs: 04/27/23 05:45 04/27/23 05:49 07/14/23 06:23 Temperature 97.0 F L Temperature Source Temporal Pulse Rate 79 85 Respiratory Rate 20 H 16 Respiratory Effort Normal Respiratory Pattern Normal Blood Pressure 105/46 L 115/46 L Blood Pressure Mean 65 69 Pulse Ox 98 98 Oxygen Delivery Method Room Air Room Air MDM <Dr. Kaye Gardner MD - Last Filed: 04/27/23 07:02> [facility] Narrative Medical decision making narrative: IV fluids [...] 74.8 H Lymph % (Auto) 15.0 L Coamo % (Auto) 9.2 Eos % (Auto) 0.1 [...] this time. Patient be [facility] for further evaluation and disposition. <Dr. Tavon Rodriguez, DO - Last Filed: 04/27/23 09:02> [facility] Lab Data Attestation: I reviewed the patient's [...] 74.8 H Lymph % (Auto) 15.0 L Coamo % (Auto) 9.2 Eos % (Auto) 0.1 [...] 8:19 EDT Reading Location ID and State: [facility] / [place] , Service support , Treatment and Re-Evaluation :: Patient systolic blood pressure has remained between 105 and 125 since arrival to the emergency room. CBC reveals white count to be elevated to 17.0. This isincreased when compared to her labs from 1 week ago. Differential reveals 75% neutrophils. Remainder blood work is pending at this time. [facility] and [facility]. Patient was [...] (acute kidney injury) Disposition Disposition: Acute Care [facility] What to do if you have Problems For any increased pain, shortness of breath, bleeding, nausea or vomiting, chestpain, or any unexpected problems, contact your Primary Care Provider. Call [facility] ([phone]) or report to the closest Emergency Room. Call 911 if necessary. 04/27/23706 <Electronically signed by Kaye Gardner MD> Cosigner Signature (if applicable): 04/27/23901 <Electronically signed by Tavon Rodriguez DO> CC: Dr. Fabian Mcmullen MD ~ Signed [facility] Work Phone: 1(865) 382-940807-12-2023 Miscellaneous Notes* Telephone Encounter - Angela Stapleton [...] she should expect to have diarrhea? Liyah Gaming RN documented in this encounterBarney Children'S Medical Center07-10-2023 Instructions* Patient Instructions* Fabian Mcmullen MD - 04/23/2023 2:02 PM EDT Ok to take imodium AD one tab every 8 hrs as needed. Stop if feel constipated. documented in this encounterBarney Children'S Medical Center07-10-2023 History of Present illness Narrative* Fabian Mcmullen [...] constipated. Fabian Mcmullen MD documented in this encounterBarney Children'S Medical Center07-07-2023 History of Present illness Narrative* Marianela Petersen Ma - 04/20/2023 9:38 AM EDT Scan on 04/19/2023 1:01 PM by External Provider, RISHABH: Consultation - Vascular Medicine/Vascular Surgery documented in this encounterBarney Children'S Medical Center07-06-2023 History of Present illness Narrative* Sumi Botello LPN - 04/19/2023 11:50 AM EDT Scan on 04/19/2023 9:31 AM by External Provider, RISHABH: CT Scan Scan on 04/19/2023 10:19 AM by External Provider, RISHABH: Consultation - Emergency Medicine documented in this encounterBarney Children'S Medical Center07-06-2023 Discharge summary Author Keenan Bowser [facility] April 19, 2023 10:11am Note Date/Time April 19, 2023 7:15a m [facility] Medical Records Department [address] [place] [address] Emergency Department Summary 04/19/23 MR#: [id number] Acct: [id number] Name: LAURENCE KOROMA Rep #:[id number] : 1950 72 From: Keenan Bowser MD [...] it is gone. They were not swollen. [facility] Medical History (Updated 04/19/23 @ 10:[address] Keenan Boswer MD) Aortic insufficiency Chronic back pain Dehydration [...] 04/18/23 [History Last Taken Unknown] glucosamine 750 cv-incehjbmhn-dbp no.1 625 mg-C 30 cn-ygti-gtoz tablet 1 tab PO BID 04/18/23 [History [...] 77.3 H Lymph % (Auto) 12.8 L Coamo % (Auto) 9.1 Eos % (Auto) 0.1 [...] Sl. Cloudy Urine pH 7.0 Ur Specific Paoli 1.010 Urine Protein 15 H Urine Glucose [...] 40 mg tablet 40 mg PO DAILY nnruduxd-bbls-xyh0-C-joan-bosw 750-625-30 mg tablet 1 tab PO BID [...] your Primary Care Provider. Call [facility] ([phone]) or report to the closest Emergency Room. Call 911 if necessary. 04/19/23 1011 <Electronically signed by Keenan Bowser MD> Cosigner Signature (if applicable): CC: Dr. Fabian Mcmullen MD ~ Signed [facility] Work Phone: 1(817) 811-405206-05-2023 History of Present illness Narrative* Sol Lowery MA - 03/19/2023 1:45 PM EDT Scan on 03/15/2023 2:21 PM by External Provider, PA-C: Consultation - Vascular Medicine/Vascular Surgery Scan on 03/15/2023 4:10 PM by External Provider, PAJanetteC: Chemistry Sol Lowery MA documented in this encounterBarney Children'S Medical Center05-16-2023 History of Present illness Narrative* Elena Hayward RT(Debbie) - 02/27/2023 3:00 PM EDT Radiology Service [...] 27, 2023 2:53 PM documented in this encounterBarney Children'S Medical Center04-28-2023 History of Present illness Narrative* Constance Klein [...] month Constance Klein PA-C documented in this encounterBarney Children'S Medical Center04-13-2023 Miscellaneous Notes* Telephone Encounter - Peggy Jefferson RN - 01/25/2023 10:00 AM EDT Patient called and notified of results and providers instructions. Patient verbalizes understanding. Peggy Jefferson RN * Telephone Encounter - Katie Chaudhari APRN.CNP - 01/25/2023 9:56 AM EDT Please let patient know her labs are normal. documented in this encounterBarney Children'S Medical Center04-12-2023 Instructions* Patient Instructions* Fabian Mcmullen MD - 01/24/2023 4:26 PM EDT Please get labs and urine test done on or after 07/13/2023 prior to your next visit. documented in this encounterBarney Children'S Medical Center04-12-2023 History of Present illness Narrative* Fabian Mcmullen [...] prior. Fabian Mcmullen MD documented in this encounterBarney Children'S Medical Center04-04-2023 Instructions* Patient Instructions* Katie Chaudhari APRN.CNP - 01/16/2023 9:49 AM EDT Restart claritin and flonase Encourage good fluid intake, use of warm salt water gargles, and use of throat lozenges. Follow up in 5 days if no improvement in symptoms documented in this encounterBar[facility] History of Present illness Narrative* Katie Chaudhari [...] if symptoms persist or worsen Katie Chaudhari APRN.CAMPGROUND ATTENDANT documented in this encounterBarney [facility]03-21-2023 Miscellaneous Notes* Telephone Encounter - Fabian Mcmullen [...] you. Frank Sharpe LPN documented in this encounterBarney [facility]03-09-2023 History of Present illness Narrative* Fabian Mcmullen [...] days. Fabian Mcmullen MD documented in this encounterBarney [facility]03-03-2023 Miscellaneous Notes* Telephone Encounter - Sol Lowery [...] seen in -rates ear pain 3 out of10. States having a lot of popping and cracking in right ear and area behind her right ear is verysensitive when she touches it. She states she thinks Augmentin may be more beneficial for her ear infection, due to the clavulanate that is in Augmentin. Needs liquid or chewable form, if ordered. Please advise. Thank you. documented in this encounterBarney [facility] Center02-27-2023 History of Present illness Narrative* Nikky Lopez APRN.CAMPGROUND ATTENDANT - 12/11/2022 8:23 AM EST Chief Complaint [...] GROUP A STREPTOCOCCUS BY PCR Nikky Lopez APRN.CAMPGROUND ATTENDANT TEACHING PROVIDER (Physician/PA/ENGLISH COMPOSITION TEACHER) NOTE OF PERSONAL INVOLVEMENT IN CARE: I have personally seen and examined the patient and performed the medical decision-making components. I have reviewed the Advanced Practice Registered Nurse (ENGLISH COMPOSITION TEACHER) Student's documentation and verified the findings in the note as written. Any additions or changes are noted in bold/italics. Signature: Nikky Lopez Date: 12/11/2022 Time: 11:34 AM documented in this encounterBarney [facility] Center02-27-2023 Miscellaneous Notes* Telephone Encounter - Adrian Brice [...] : n/a; postmenopausal Protocols used: Strep Throat [id number] documented in this encounterBarney Children'S [facility] Center01-30-2023 Miscellaneous Notes* Telephone Encounter - Kaci Kitchen [...] patient. Kaci Kitchen RN documented in this encounterBarney [facility]01-06-2023 Miscellaneous Notes* Telephone Encounter - Sol Lowery [...] advise. Margaret Benton Pss documented in this encounterBarney [facility] Center01-05-2023 Miscellaneous Notes* Telephone Encounter - Constance Klein [...] advise. Laurence Chang LPN documented in this encounterBarney [facility] Center11-25-2022 Miscellaneous Notes* Telephone Encounter - Amara Capone Ma - 09/08/2022 1:45 PM EST Pt informed, verbalized understanding Amara Capone Ma * Telephone Encounter - Joelle Katz APRN.CAMPGROUND ATTENDANT - 09/08/2022 12:33 PM EST No problem. Both rx sent to pharmacy. Tamiflu 2x per day x 5 days. Tessalone perles as needed for cough TID. Thank you, Joelel Katz APRN.CNP The following approved medication requests have been transmitted electronically. Requested Prescriptions Pending Prescriptions Disp Refills oseltamivir (TAMIFLU) 75 mg capsule 10 capsule 0 Sig: Take 1 capsule by mouth twice daily for 5 days. benzonatate (TESSALON PERLES) 100 mg capsule 30 capsule 0 Sig: Take 1 capsule by mouth three times daily as needed for cough. Joelle Katz APRN.CNP * Telephone Encounter - Geri Gore LPN [...] Rx for cough can be sent to [facility] in [place]. Amara Capone Ma * Telephone Encounter - Joelle Katz APRN.CNP - 09/08/2022 7:30 AM EST Please call patient and let her know that COVID was negative. However, influenza A was positive. Please rest and increase fluids as much as possible. If symptoms do not improve within 5 days, please let us know. Thank you, Joelle Katz APRN.CNP documented in this encounterBarney Children'[facility] Center11-23-2022 History of Present illness Narrative* Joelle Katz [...] agreeable to treatment plan. Joelle Katz APRN.SONDRA [address] [place] [address] documented in this encounterBarney Children'S Medical Center11-22-2022 Miscellaneous Notes* Telephone Encounter - Laurence Chang [...] mg once a week. documented in this [facility]11-17-2022 Miscellaneous Notes* Telephone Encounter - Hayley [...] you. Hayley Gibbs LPN documented in this [facility]10-26-2022 Nurse Note* Angi Rosales LPN - 08/09/2022 4:47 PM EDT Pt received her covid booster in office today as ordered. Pt tolerated well. documented in this [facility]10-26-2022 History of Present illness Narrative* Joelle Katz APRN.SONDRA - 08/09/2022 3:33 PM EDT Chief Complaint [...] Patient agreeable to treatment plan. Joelle Katz APRN.CAMPGROUND ATTENDANT [address] [place] [address] documented in this encounterBarney Children'S Medical Center10-20-2022 Miscellaneous Notes* Telephone Encounter - Chey Ponce Cma - 08/03/2022 11:28 AM EDT [employer] message sent to patient Chey Ponce Lesley * Telephone Encounter - Fabian Mcmullen MD [...] mg once a day. documented in this encounterBarney Children'S Medical Center10-17-2022 Miscellaneous Notes* Telephone Encounter - Sol Lowery MA - 07/31/2022 9:15 AM EDT Patient notified and voiced understanding. Sol Lowery MA * Telephone Encounter - Fabian Mcmullen MD - 07/30/2022 8:56 PM EDT Let patient know blood sugar A1c slightly elevated at 5.8%. Continue to try to reduce carbs, sugarsand starches in diet. Lipid panel and UA were both ok. documented in this encounterBarney Children'[facility] Medical Center10-15-2022 Miscellaneous Notes* Telephone Encounter - Sol Lowery [...] Panel and Urinalysis done. documented in this encounterBarney Children'S Medical Center10-13-2022 Miscellaneous Notes* Telephone Encounter - Hayley Gibbs [...] will monitor for now. documented in this encounterBarney Children'S Medical Center10-12-2022 History of Present illness Narrative* Fabian Mcmullen [...] mg/day for 50+ - Patient was counseled [id number] by myself (the billing provider) for the [...] and COVID Booster F/u 6 months routine Fabain Mcmullen MD documented in this encounterBarney Children'S Medical Center10-04-2022 Miscellaneous Notes* Telephone Encounter - Elina Mckenzie [...] of water a day. documented in this encounterBarney Children'S Medical Center10-03-2022 Miscellaneous Notes* Telephone Encounter - Peggy Jefferson [...] denies any symptoms of dehydration. 2. LIGHTHEADED: Lorimor faint with all over weakness. 3. VERTIGO: [...] 11. : NA Protocols used: Dizziness - [id number] documented in this encounterBarney Children'S Medical Center08-10-2022 Miscellaneous Notes* Telephone Encounter - Kaye Allan - 05/24/2022 10:11 AM EDT [facility] Patient has been identified by name and [...] advise. Kaye Vazquez Pss documented in this encounterBarney Children'S [facility] Center04-25-2022 Miscellaneous Notes* Telephone Encounter - Sol Lowery [...] notify patient. Dionna Allan documented in this encounterBarney Children'S Medical Center03-28-2022 Miscellaneous Notes* Telephone Encounter - Danielle Quarles [...] and starches in diet. documented in this encounterBarney Children'S Medical Center11-29-2021 History of Present illness Narrative* Shital Hatfield [...] 12, 2021 9:27 AM documented in this encounterBarney Children'S Medical Center02-19-2012 History of Past illness Narrative* Problem Noted Date Resolved Date Lichen Planus: lower lip 12/03/2011 012 Actinic cheilitis 12/03/2011 04/25/2012 Seborrheic Keratosis 12/03/2011 04/25/2012 documented as of this encounter (statuses as of 01/09/2022) [address]19-2012 History of Past illness Narrative* Problem Noted Date Resolved Date Lichen Planus: lower lip 12/03/2011 012 Actinic cheilitis 12/03/2011 04/25/2012 Seborrheic Keratosis 12/03/2011 04/25/2012 documented as of this encounter (statuses as of 02/06/2022) [address]19-2012 History of Past illness Narrative* Problem Noted Date Resolved Date Lichen Planus: lower lip 12/03/2011 012 Actinic cheilitis 12/03/2011 04/25/2012 Seborrheic Keratosis 12/03/2011 04/25/2012 documented as of this encounter (statuses as of 05/24/2022) [address]19-2012 History of Past illness Narrative* Problem Noted Date Resolved Date Lichen Planus: lower lip 12/03/2011 012 Actinic cheilitis 12/03/2011 04/25/2012 Seborrheic Keratosis 12/03/2011 04/25/2012 documented as of this encounter (statuses as of 06/19/2022) [address]19-2012 History of Past illness Narrative* Problem Noted Date Resolved Date Lichen Planus: lower lip 12/03/2011 012 Actinic cheilitis 12/03/2011 04/25/2012 Seborrheic Keratosis 12/03/2011 04/25/2012 documented as of this encounter (statuses as of 07/17/2022) [address]19-2012 History of Past illness Narrative* Problem Noted Date Resolved Date Lichen Planus: lower lip 12/03/2011 012 Actinic cheilitis 12/03/2011 04/25/2012 Seborrheic Keratosis 12/03/2011 04/25/2012 documented as of this encounter (statuses as of 07/18/2022) [address]19-2012 History of Past illness Narrative* Problem Noted Date Resolved Date Lichen Planus: lower lip 12/03/2011 012 Actinic cheilitis 12/03/2011 04/25/2012 Seborrheic Keratosis 12/03/2011 04/25/2012 documented as of this encounter (statuses as of 07/27/2022) [address]19-2012 History of Past illness Narrative* Problem Noted Date Resolved Date Lichen Planus: lower lip 12/03/2011 012 Actinic cheilitis 12/03/2011 04/25/2012 Seborrheic Keratosis 12/03/2011 04/25/2012 documented as of this encounter (statuses as of 07/27/2022) [address]19-2012 History of Past illness Narrative* Problem Noted Date Resolved Date Lichen Planus: lower lip 12/03/2011 012 Actinic cheilitis 12/03/2011 04/25/2012 Seborrheic Keratosis 12/03/2011 04/25/2012 documented as of this encounter (statuses as of 07/29/2022) [address]19-2012 History of Past illness Narrative* Problem Noted Date Resolved Date Lichen Planus: lower lip 12/03/2011 012 Actinic cheilitis 12/03/2011 04/25/2012 Seborrheic Keratosis 12/03/2011 04/25/2012 documented as of this encounter (statuses as of 07/31/2022) [address]19-2012 History of Past illness Narrative* Problem Noted Date Resolved Date Lichen Planus: lower lip 12/03/2011 012 Actinic cheilitis 12/03/2011 04/25/2012 Seborrheic Keratosis 12/03/2011 04/25/2012 documented as of this encounter (statuses as of 08/03/2022) [address]19-2012 History of Past illness Narrative* Problem Noted Date Resolved Date Lichen Planus: lower lip 12/03/2011 012 Actinic cheilitis 12/03/2011 04/25/2012 Seborrheic Keratosis 12/03/2011 04/25/2012 documented as of this encounter (statuses as of 08/09/2022) [address]19-2012 History of Past illness Narrative* Problem Noted Date Resolved Date Lichen Planus: lower lip 12/03/2011 012 Actinic cheilitis 12/03/2011 04/25/2012 Seborrheic Keratosis 12/03/2011 04/25/2012 documented as of this encounter (statuses as of 08/31/2022) [facility] Narrative* Problem Noted Date Resolved Date Lichen Planus: lower lip 12/03/2011 012 Actinic cheilitis 12/03/2011 04/25/2012 Seborrheic Keratosis 12/03/2011 04/25/2012 documented as of this encounter (statuses as of 09/06/2022) [address]19-2012 History of Past illness Narrative* Problem Noted Date Resolved Date Lichen Planus: lower lip 12/03/2011 012 Actinic cheilitis 12/03/2011 04/25/2012 Seborrheic Keratosis 12/03/2011 04/25/2012 documented as of this encounter (statuses as of 09/08/2022) [address]19-2012 History of Past illness Narrative* Problem Noted Date Resolved Date Lichen Planus: lower lip 12/03/2011 012 Actinic cheilitis 12/03/2011 04/25/2012 Seborrheic Keratosis 12/03/2011 04/25/2012 documented as of this encounter (statuses as of 09/08/2022) [facility] Narrative* Problem Noted Date Resolved Date Lichen Planus: lower lip 12/03/2011 012 Actinic cheilitis 12/03/2011 04/25/2012 Seborrheic Keratosis 12/03/2011 04/25/2012 documented as of this encounter (statuses as of 10/20/2022) [address]19-2012 History of Past illness Narrative* Problem Noted Date Resolved Date Lichen Planus: lower lip 12/03/2011 012 Actinic cheilitis 12/03/2011 04/25/2012 Seborrheic Keratosis 12/03/2011 04/25/2012 documented as of this encounter (statuses as of 10/20/2022) [address]19-2012 History of Past illness Narrative* Problem Noted Date Resolved Date Lichen Planus: lower lip 12/03/2011 012 Actinic cheilitis 12/03/2011 04/25/2012 Seborrheic Keratosis 12/03/2011 04/25/2012 documented as of this encounter (statuses as of 11/13/2022) [facility] Narrative* Problem Noted Date Resolved Date Lichen Planus: lower lip 12/03/2011 012 Actinic cheilitis 12/03/2011 04/25/2012 Seborrheic Keratosis 12/03/2011 04/25/2012 documented as of this encounter (statuses as of 12/11/2022) [facility] Narrative* Problem Noted Date Resolved Date Lichen Planus: lower lip 12/03/2011 012 Actinic cheilitis 12/03/2011 04/25/2012 Seborrheic Keratosis 12/03/2011 04/25/2012 documented as of this encounter (statuses as of 12/11/2022) [address]19-2012 History of Past illness Narrative* Problem Noted Date Resolved Date Lichen Planus: lower lip 12/03/2011 012 Actinic cheilitis 12/03/2011 04/25/2012 Seborrheic Keratosis 12/03/2011 04/25/2012 documented as of this encounter (statuses as of 12/15/2022) [facility] Narrative* Problem Noted Date Resolved Date Lichen Planus: lower lip 12/03/2011 012 Actinic cheilitis 12/03/2011 04/25/2012 Seborrheic Keratosis 12/03/2011 04/25/2012 documented as of this encounter (statuses as of 12/22/2022) [address]19-2012 History of Past illness Narrative* Problem Noted Date Resolved Date Lichen Planus: lower lip 12/03/2011 012 Actinic cheilitis 12/03/2011 04/25/2012 Seborrheic Keratosis 12/03/2011 04/25/2012 documented as of this encounter (statuses as of 01/02/2023) [address]19-2012 History of Past illness Narrative* Problem Noted Date Resolved Date Lichen Planus: lower lip 12/03/2011 012 Actinic cheilitis 12/03/2011 04/25/2012 Seborrheic Keratosis 12/03/2011 04/25/2012 documented as of this encounter (statuses as of 01/16/2023) [address]19-2012 History of Past illness Narrative* Problem Noted Date Resolved Date Lichen Planus: lower lip 12/03/2011 012 Actinic cheilitis 12/03/2011 04/25/2012 Seborrheic Keratosis 12/03/2011 04/25/2012 documented as of this encounter (statuses as of 01/25/2023) [address]19-2012 History of Past illness Narrative* Problem Noted Date Resolved Date Lichen Planus: lower lip 12/03/2011 012 Actinic cheilitis 12/03/2011 04/25/2012 Seborrheic Keratosis 12/03/2011 04/25/2012 documented as of this encounter (statuses as of 01/26/2023) [address]19-2012 History of Past illness Narrative* Problem Noted Date Resolved Date Lichen Planus: lower lip 12/03/2011 012 Actinic cheilitis 12/03/2011 04/25/2012 Seborrheic Keratosis 12/03/2011 04/25/2012 documented as of this encounter (statuses as of 02/09/2023) [address]19-2012 History of Past illness Narrative* Problem Noted Date Resolved Date Lichen Planus: lower lip 12/03/2011 012 Actinic cheilitis 12/03/2011 04/25/2012 Seborrheic Keratosis 12/03/2011 04/25/2012 documented as of this encounter (statuses as of 03/20/2023) [address]19-2012 History of Past illness Narrative* Problem Noted Date Resolved Date Lichen Planus: lower lip 12/03/2011 012 Actinic cheilitis 12/03/2011 04/25/2012 Seborrheic Keratosis 12/03/2011 04/25/2012 documented as of this encounter (statuses as of 04/19/2023) [place] [address] History of Past illness Narrative* Problem Noted Date Resolved Date Lichen Planus: lower lip 12/03/2011 012 Actinic cheilitis 12/03/2011 04/25/2012 Seborrheic Keratosis 12/03/2011 04/25/2012 documented as of this encounter (statuses as of 04/20/2023) [facility] Narrative* Problem Noted Date Diagnosed Date Resolved Date Lichen Planus: lower lip 12/03/201109/2012 Actinic cheilitis 12/03/2011 04/25/2012 Seborrheic Keratosis 12/03/2011 012 documented as of this encounter (statuses as of 04/24/2023) [address]19-2012 History of Past illness Narrative* Problem Noted Date Diagnosed Date Resolved Date Lichen Planus: lower lip 12/03/201109/2012 Actinic cheilitis 12/03/2011 04/25/2012 Seborrheic Keratosis 12/03/2011 012 documented as of this encounter (statuses as of 04/26/2023) [facility] Narrative* Problem Noted Date Diagnosed Date Resolved Date Lichen Planus: lower lip 12/03/201109/2012 Actinic cheilitis 12/03/2011 04/25/2012 Seborrheic Keratosis 12/03/2011 012 documented as of this encounter (statuses as of 04/29/2023) [facility] Narrative* Problem Noted Date Diagnosed Date Resolved Date Lichen Planus: lower lip 12/03/201109/2012 Actinic cheilitis 12/03/2011 04/25/2012 Seborrheic Keratosis 12/03/2011 012 documented as of this encounter (statuses as of 05/14/2023) [address]19-2012 History of Past illness Narrative* Problem Noted Date Diagnosed Date Resolved Date Lichen Planus: lower lip 12/03/201109/2012 Actinic cheilitis 12/03/2011 04/25/2012 Seborrheic Keratosis 12/03/2011 012 documented as of this encounter (statuses as of 05/15/2023) [facility] Narrative* Problem Noted Date Diagnosed Date Resolved Date Lichen Planus: lower lip 12/03/201109/2012 Actinic cheilitis 12/03/2011 04/25/2012 Seborrheic Keratosis 12/03/2011 012 documented as of this encounter (statuses as of 05/15/2023) [facility] Narrative* Problem Noted Date Diagnosed Date Resolved Date Lichen Planus: lower lip 12/03/201109/2012 Actinic cheilitis 12/03/2011 04/25/2012 Seborrheic Keratosis 12/03/2011 012 documented as of this encounter (statuses as of 06/14/2023) [address]19-2012 History of Past illness Narrative* Problem Noted Date Diagnosed Date Resolved Date Lichen Planus: lower lip 12/03/201109/2012 Actinic cheilitis 12/03/2011 04/25/2012 Seborrheic Keratosis 12/03/2011 012 documented as of this encounter (statuses as of 06/26/2023) [facility] Narrative* Problem Noted Date Diagnosed Date Resolved Date Lichen Planus: lower lip 12/03/201109/2012 Actinic cheilitis 12/03/2011 04/25/2012 Seborrheic Keratosis 12/03/2011 012 documented as of this encounter (statuses as of 07/13/2023) [address]19-2012 History of Past illness Narrative* Problem Noted Date Diagnosed Date Resolved Date Lichen Planus: lower lip 12/03/201109/2012 Actinic cheilitis 12/03/2011 04/25/2012 Seborrheic Keratosis 12/03/2011 012 documented as of this encounter (statuses as of 08/03/2023) [address]19-2012 History of Past illness Narrative* Problem Noted Date Diagnosed Date Resolved Date Lichen Planus: lower lip 12/03/201109/2012 Actinic cheilitis 12/03/2011 04/25/2012 Seborrheic Keratosis 12/03/2011 012 documented as of this encounter (statuses as of 08/08/2023) [address]19-2012 History of Past illness Narrative* Problem Noted Date Diagnosed Date Resolved Date Lichen Planus: lower lip 12/03/201109/2012 Actinic cheilitis 12/03/2011 04/25/2012 Seborrheic Keratosis 12/03/2011 012 documented as of this encounter (statuses as of 08/09/2023) [facility] Narrative* Problem Noted Date Diagnosed Date Resolved Date Lichen Planus: lower lip 12/03/201109/2012 Actinic cheilitis 12/03/2011 04/25/2012 Seborrheic Keratosis 12/03/2011 012 documented as of this encounter (statuses as of 08/19/2023) [address]19-2012 History of Past illness Narrative* Problem Noted Date Diagnosed Date Resolved Date Lichen Planus: lower lip 12/03/201109/2012 Actinic cheilitis 12/03/2011 04/25/2012 Seborrheic Keratosis 12/03/2011 012 documented as of this encounter (statuses as of 08/23/2023) [address]19-2012 History of Past illness Narrative* Problem Noted Date Diagnosed Date Resolved Date Lichen Planus: lower lip 12/03/201109/2012 Actinic cheilitis 12/03/2011 04/25/2012 Seborrheic Keratosis 12/03/2011 012 documented as of this encounter (statuses as of 09/04/2023) [address]19-2012 History of Past illness Narrative* Problem Noted Date Diagnosed Date Resolved Date Lichen Planus: lower lip 12/03/201109/2012 Actinic cheilitis 12/03/2011 04/25/2012 Seborrheic Keratosis 12/03/2011 012 documented as of this encounter (statuses as of 09/05/2023) [facility] Narrative* Problem Noted Date Diagnosed Date Resolved Date Lichen Planus: lower lip 12/03/201109/2012 Actinic cheilitis 12/03/2011 04/25/2012 Seborrheic Keratosis 12/03/2011 012 documented as of this encounter (statuses as of 11/16/2023) [facility] Narrative* Problem Noted Date Diagnosed Date Resolved Date Lichen Planus: lower lip 12/03/201109/2012 Actinic cheilitis 12/03/2011 04/25/2012 Seborrheic Keratosis 12/03/2011 012 documented as of this encounter (statuses as of 11/20/2023) [facility] Narrative* Problem Noted Date Diagnosed Date Resolved Date Lichen Planus: lower lip 12/03/201109/2012 Actinic cheilitis 12/03/2011 04/25/2012 Seborrheic Keratosis 12/03/2011 012 documented as of this encounter (statuses as of 11/29/2023) [facility] illness Narrative* Problem Noted Date Diagnosed Date Resolved Date Lichen Planus: lower lip 12/03/201109/2012 Actinic cheilitis 12/03/2011 04/25/2012 Seborrheic Keratosis 12/03/2011 012 documented as of this encounter (statuses as of 12/12/2023) [facility] Narrative* Problem Noted Date Diagnosed Date Resolved Date Lichen Planus: lower lip 12/03/201109/2012 Actinic cheilitis 12/03/2011 04/25/2012 Seborrheic Keratosis 12/03/2011 012 documented as of this encounter (statuses as of 12/20/2023) [facility] Narrative* Problem Noted Date Diagnosed Date Resolved Date Lichen Planus: lower lip 12/03/201109/2012 Actinic cheilitis 12/03/2011 04/25/2012 Seborrheic Keratosis 12/03/2011 012 documented as of this encounter (statuses as of 12/24/2023) [facility] illness Narrative* Problem Noted Date Diagnosed Date Resolved Date Lichen Planus: lower lip 12/03/201109/2012 Actinic cheilitis 12/03/2011 04/25/2012 Seborrheic Keratosis 12/03/2011 012 documented as of this encounter (statuses as of 01/30/2024) [facility] noteNo assessment information availableWMartin Memorial Hospital Work Phone: Evaluation note* Diagnosis Encounter for screening mammogram for breast cancer [facility] Diagnosis Well adult exam- Primary Routine [...] single bacterial disease [facility]* Diagnosis Mild AI (aortic insufficiency) Aortic valve disorders documented [facility]* Diagnosis 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 dysplasia of both carotid arteries (HCC) documented in this encounter [facility]* Diagnosis Essential hypertension, benign- Primary Encounter for immunization Need for other specified prophylactic vaccination against single bacterial disease documented [facility] this [facility]* Diagnosis Primary hypertension- Primary Unspecified essential hypertension Headache, unspecified headache type Acute cough [facility] Diagnosis Primary hypertension Unspecified essential hypertension [facility] Diagnosis Primary hypertension Unspecified essential hypertension [facility] Diagnosis Primary hypertension- Primary Unspecified essential hypertension [facility] Diagnosis Sore throat- Primary Acute pharyngitis Strep throat exposure Contact with or exposure to other communicable diseases Sinus pressure Other diseases of nasal cavity and sinuses Right ear pain Otalgia, unspecified Non-recurrent acute serous otitis media of right ear [facility] Diagnosis Bacterial sinusitis- Primary Unspecified sinusitis (chronic) [facility] Diagnosis Sore throat Acute pharyngitis Strep throat exposure Contact with or exposure to other communicable diseases Sinus pressure Other diseases of nasal cavity and sinuses Right ear pain Otalgia, unspecified Non-recurrent acute serous otitis media of right ear [facility] Seasonal allergic rhinitis, unspecified trigger- Primary Sore throat Acute pharyngitis [facility] Diagnosis Essential hypertension, benign- Primary Elevated hemoglobin A1c Other abnormal blood chemistry LALO (generalized anxiety disorder) Generalized anxiety disorder 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 dysplasia of both carotid arteries (HCC) Insomnia, unspecified type Advance directive discussed with patient Other specified counseling [facility] Essential hypertension, benign- Primary Primary hypertension Unspecified essential hypertension 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 dysplasia of both carotid arteries (HCC) Primary insomnia Persistent disorder of initiating or maintaining sleep 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 [facility] Diagnosis Onset Date Resolution Status 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 dysplasia batter out henry [facility] Work Phone: Evaluation note* Diagnosis Onset Date Resolution Status 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 dysplasia batter out henry 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 dysplasia batter out henry [facility] Work Phone: Evaluation note* Diagnosis 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 dysplasia of both carotid arteries (HCC) [facility] Diagnosis Diverticulitis- Primary Diverticulitis of colon (without mention of hemorrhage) Diverticulosis Diverticulosis of colon (without mention of hemorrhage) [facility] Diagnosis Onset Date Resolution Status 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 dysplasia batter out henry 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 dysplasia batter out henry EVELYN (acute kidney injury) [place] Hypotension acute Near syncope acute [facility] Work Phone: Evaluation note* Diagnosis C. difficile colitis- Primary Intestinal infection due to clostridium difficile [facility] Primary hypertension Unspecified essential hypertension [facility] Diagnosis Primary insomnia Persistent disorder of initiating or maintaining sleep [facility] Diagnosis Bronchitis- Primary Bronchitis, not specified as acute or chronic Nasal congestion Other diseases of nasal cavity and sinuses [facility] Diagnosis Encounter for Medicare annual wellness exam- Primary Routine general medical examination at a health care facility Essential hypertension, benign Elevated hemoglobin A1c Other abnormal blood chemistry 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 dysplasia of both carotid arteries (HCC) LALO (generalized anxiety disorder) Generalized anxiety disorder Insomnia, unspecified type Need for vaccination Need for prophylactic vaccination and inoculation against unspecified single disease [facility] Diagnosis Onset Date Resolution Status 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 dysplasia batter out henry Clostridium difficile diarrhea acute Diarrhea acute Aortic insufficiency chronic Essential hypertension [facility] Work Phone: Evaluation note* Diagnosis Encounter for screening mammogram for breast cancer [facility] Diagnosis Primary insomnia Persistent disorder of initiating or maintaining sleep documented in this encounter [facility] note* Diagnosis Eustachian tube disorder, left- Primary Non-recurrent acute serous otitis media of left ear documented in this encounter [facility] note* Diagnosis History of Clostridium difficile colitis Personal history of other diseases of digestive system documented in this encounter [facility] note* Diagnosis Sudden hearing loss, left- Primary Disorder of left eustachian tube documented in this encounter [facility] note* Diagnosis Sensorineural hearing loss, bilateral- Primary Sudden hearing loss, left documented in this encounter [facility] note* Diagnosis Primary hypertension Unspecified essential hypertension Primary insomnia Persistent disorder of initiating or maintaining sleep documented in this encounter [facility] note* Diagnosis Viral bronchitis- Primary Acute bronchitis URI, acute Acute upper respiratory infections of unspecified site documented in this encounter [facility] note* Diagnosis Sore throat Acute pharyngitis [facility]* Diagnosis Essential hypertension, benign- Primary LALO (generalized anxiety disorder) Generalized anxiety disorder Insomnia, unspecified type Elevated hemoglobin A1c Other abnormal blood chemistry Age-related osteoporosis without current pathological fracture Senile osteoporosis Mild AI (aortic insufficiency) Aortic valve disorders documented in this encounter [facility] note* Diagnosis Primary insomnia Persistent disorder of initiating or maintaining sleep documented in this encounter [facility] note* Diagnosis Hematoma and contusion- Primary [facility] Diagnosis Sore throat Acute pharyngitis [facility] Diagnosis Primary hypertension Unspecified essential hypertension [facility] Diagnosis Viral bronchitis Acute bronchitis [facility] Diagnosis Acute cough [facility] in [facility]* Diagnosis Cough documented in this encounter [facility] note* Diagnosis Encounter for Medicare annual wellness [...] Insomnia, unspecified type [facility] Diagnosis Essential hypertension, benign- Primary [facility] Diagnosis Primary hypertension Unspecified essential hypertension [facility] Diagnosis Primary insomnia Persistent disorder of initiating or maintaining sleep documented [facility] Diagnosis Essential hypertension, benign- Primary documented [facility]* Diagnosis Age-related osteoporosis without current pathological fracture Senile osteoporosis [facility]* Diagnosis Age-related osteoporosis without current pathological fracture- Primary Senile osteoporosis [facility] Diagnosis URI, acute- Primary Acute upper respiratory infections of unspecified site [facility] Diagnosis Primary hypertension Unspecified essential hypertension [facility] Diagnosis Diverticulitis- Primary Diverticulitis of colon (without mention of hemorrhage) History of Clostridium difficile colitis Personal history of other diseases of digestive system Diarrhea, unspecified type [facility] Diagnosis Diarrhea, unspecified type- Primary Diverticulosis Diverticulosis of colon (without mention of hemorrhage) Diverticulitis Diverticulitis of colon (without mention of hemorrhage) History of Clostridium difficile colitis Personal history of other diseases of digestive system Anemia, unspecified type Sore throat Acute pharyngitis [facility] Diagnosis Anemia, unspecified type- Primary [facility] Diagnosis Primary insomnia Persistent disorder of initiating or maintaining sleep documented [facility]* Diagnosis Essential hypertension, benign- Primary LALO (generalized anxiety disorder) Generalized anxiety disorder Elevated hemoglobin A1c Other abnormal blood chemistry Insomnia, unspecified type Age-related osteoporosis without current pathological fracture Senile osteoporosis 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 dysplasia of both carotid arteries Nocturia documented [facility] this [facility]* Diagnosis Bacterial sinusitis- Primary Unspecified sinusitis (chronic) Temporal pain Headache Arthralgia of right temporomandibular joint Arthralgia of temporomandibular joint documented [facility] this [facility]* Diagnosis Anemia, unspecified type- Primary documented in this [facility]* Diagnosis Headache, unspecified headache type- Primary Temporal pain Headache Neck tightness Unspecified musculoskeletal disorders and symptoms referable to neck 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 dysplasia Other specified disorders of arteries and arterioles [facility] Diagnosis Headache, unspecified headache type- Primary Neck tightness Unspecified musculoskeletal disorders and symptoms referable to neck documented in this [facility]* Diagnosis Headache, unspecified headache type- Primary Neck tightness Unspecified musculoskeletal disorders and symptoms referable to neck documented in this [facility]* Diagnosis Primary hypertension Unspecified essential hypertension Sore throat Acute [facility]itis [facility] Additional Instructions Plenty of fluids and rest. Zofran as needed for nausea. Follow-up with your doctor return emergency department if you are feeling worse. [facility] Work Phone: Hospital Discharge instructions Additional Instructions [...] you will help to replace some of it.[facility] Work Phone: Reason for referral (narrative)* Diagnostic Procedure Only (Routine) - Pending Review Specialty Diagnoses / Procedures Referred By Contcb t Referred To Contact BR IMAGING Diagnoses Encounter for screening mammogram for breast cancer Procedures SANDOVAL SCREENING SCREENING MAMMOGRAPHY BI 2-VIEW BREAST INC CAD Fabian Mcmullen MD [address] [place] [address] [facility] [address] [place] [address] Referral ID Status Reason Start Date Expiration Date Visits Requested Visits Authorized [id number] Pending Review Auto-Generat ed Referral 06/14/2022 07/14/2023 1 1 [facility] for referral (narrative)* Diagnostic Procedure Only (Routine) - Closed Specialty Diagnoses / Procedures Referred By Clive t Referred To Contact BR IMAGING Diagnoses Encounter for screening mammogram for breast cancer Procedures SANDOVAL SCREENING SCREENING MAMMOGRAPHY BI 2-VIEW BREAST INC CAD Fabian Mcmullen MD [address] [id number] [facility] [address] [place] [address] Referral ID Status Reason Start Date Expiration Date V isits Requested Visits Authorized [id number] Closed Auto-Generate d Referral 06/14/2022 07/14/2023 1 1 [facility] for referral (narrative)* Diagnostic Procedure Only (Routine) - Authorized Specialty Diagnoses / Procedures Referred By Clive t Referred To Contact XR IMAGING Diagnoses Age-related osteoporosis without current pathological fracture Procedures DXA-AXIAL SKELETON DXA BONE DENSITY STUDY 1/> [place] [address] [place], [place] [id number] Xr Imaging [id number] Referral ID Status Reason Start Date Expiration Date Visits Requested Visits Authorized [id number] Authorized Auto-Generat ed Referral 09/07/2025 1 1 [facility] for referral (narrative)No reason for referral information [facility] Work [facility]: Reason for visit Narrative* Diagnostic Procedure Only (Routine) - Closed Specialty Diagnoses / Procedures Referred By Contac t Referred To Contact BR IMAGING Diagnoses Encounter for screening mammogram for breast cancer Procedures SANDOVAL SCREENING SCREENING MAMMOGRAPHY BI 2-VIEW BREAST INC CAD Fabian Mcmullen MD [address] [place] [address] [facility] [address] [place] [address] Referral ID Status Reason Start Date Expiration Date V isits Requested Visits Authorized [id number] Closed Auto-Generate d Referral 06/14/2022 07/14/2023 1 1 [facility]* Diagnostic Procedure Only (Routine) - Closed Specialty Diagnoses / Procedures Referred By Contac t Referred To Contact XR IMAGING Diagnoses Age-related osteoporosis without current pathological fracture Procedures DXA-AXIAL SKELETON DXA BONE DENSITY STUDY 1/ SITES AXIAL SKEL Fabian Mcmullen MD [address] [place] [address] [place] [id number] Referral ID Status Reason Start Date Expiration Date V isits Requested Visits Authorized [id number] Closed Auto-Generate d Referral 08/08/2024 09/07/2025 1 1 [facility] Chief Complaint and Reason for Visit Chief [...] :00pm Headache May 20, 2025 1:1 5pm Chief Complaint Admit Date abd pain January [...] in Head May 20, 2025 1:1 5pm FMD, new neck/head pain May 22, 2025 6:01am Reason for Visit Admit Date Clostridium difficile diarrhea February 20, 2025 8:51am Diverticulitis February 20, 2025 8:51am Clostridium difficile diarrhea March 04, 2025 1:34pm Diverticulitis March 04, 2025 1:34p m 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 dysplasia April 15, 2025 1 :00pm 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 dysplasia May 20, 2025 1:15pm Headache May 20, 2025 1:1 5pm Chief Complaint Admit Date Diverticulitis flare February 20, 2025 8:51a m INT LAB ORDERS February 20, 2025 10:15a m diverticulitis moving forward plan February 132024 1:34pm 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 Dysplasia of carotid arter ies April 15, 2025 1:00pm FIBROMUSCULAR DYSPLASIA April 24, 2025 10:49am ARTERIAL FOBROMUSCULAR DYSPLASIA May 15, 2025 8:40am Pain in Head May 20, 2025 1:1 5pm FMD, new neck/head pain May 22, 2025 6:01am Family History No Family History Records Found [...] No January 11, 2022 1:31pm Power of Dish Washer No January 11 1:31pm Advance Directive Response Recorded Date/ Time Advance Directives No September 7:53pm Living Will No April 19, 2023 6 :38am Power of Dish Washer No April 19, 2023 6:38am Advance Directive Response Recorded Date/ Time Advance Directives No September 7:53pm Living Will No April 27, 2023 5:53am Power of Dish Washer No April 27 5:53am Advance Directive Response Recorded Date/ Time Advance Directives No September 7:53pm Living Will No April 27, 2023 10:45am Power of Dish Washer No April 27 10:45am Advance Directive Response Recorded Date/ Time Advance Directives No September 6:53pm Living Will No November 26 11:48pm Power of Dish Washer No November 26, 2023 11:48pm Advance Directive Response Recorded Date/ Time Living Will No January 26, 2025 7:20am Do you have a Healthcare Power of Dish Washer? No January 26, 2025 7:20am Advance Directives No September 7:53pm Advance Directive Response Recorded Date/ Time Living Will No November 27 12:48am Do you have a Healthcare Power of Dish Washer? No November 27, 2023 12:48am Living Will No January 26, 2025 7:20am Do you have a Healthcare Power of Dish Washer? No January 26, 2025 7:20am Advance Directives No September 7:53pm Advance Directive Response Recorded Date/ Time Living Will No November 27 12:48am Do you have a Healthcare Power of Dish Washer? No November 27, 2023 12:48am Advance Directives No September 7:53pm Reason for Referral Specialty Diagnoses / Procedures Referred By Contac t Referred To Contact Audiology Diagnoses Sudden hearing loss, left Kruger, Alexei Lin MD [address] [place] [address] [facility] [address] [place] [address] Referral ID Status Reason Start Date Expiration Date V isits Requested Visits Authorized [id number] Pending Review 12/04/2023 12/03/2024 1 1 Summary Purpose Additional Source Comments Source Comments (unrecognize d section and content) In the event this informatio n is protected by the Federal Confidentiality of Alcohol and Drug Abuse Patient Records regulations: The Federal rules restrict any use of the information to criminally investigate or prosecute any alcohol or drug abuse patient.[facility] the event this information is protected by the Federal Confidentiality of Alcohol and Drug Abuse Patient Records regulations: The Federal rules restrict any use of the information to criminally investigate or prosecute any alcohol or drug abuse patient.[facility] Center[facility] the event this information is protected by the Federal Confidentiality of Alcohol and Drug Abuse Patient Records regulations: The Federal rules restrict any use of the information to criminally investigate or prosecute any alcohol or drug abuse patient.[facility] Center[facility] the event this information is protected by the Federal Confidentiality of Alcohol and Drug Abuse Patient Records regulations: The Federal rules restrict any use of the information to criminally investigate or prosecute any alcohol or drug abuse patient.[facility] Center[facility] the event this information is protected by the Federal Confidentiality of Alcohol and Drug Abuse Patient Records regulations: The Federal rules restrict any use of the information to criminally investigate or prosecute any alcohol or drug abuse patient.[facility] Center[facility] the event this information is protected by the Federal Confidentiality of Alcohol and Drug Abuse Patient Records regulations: The Federal rules restrict any use of the information to criminally investigate or prosecute any alcohol or drug abuse patient.[facility] Center[facility] the event this information is protected by the Federal Confidentiality of Alcohol and Drug Abuse Patient Records regulations: The Federal rules restrict any use of the information to criminally investigate or prosecute any alcohol or drug abuse patient.[facility] Center[facility] the event this information is protected by the Federal Confidentiality of Alcohol and Drug Abuse Patient Records regulations: The Federal rules restrict any use of the information to criminally investigate or prosecute any alcohol or drug abuse patient.[facility] the event this information is protected by the Federal Confidentiality of Alcohol and Drug Abuse Patient Records regulations: The Federal rules restrict any use of the information to criminally investigate or prosecute any alcohol or drug abuse patient.[facility] Center[facility] the event this information is protected by the Federal Confidentiality of Alcohol and Drug Abuse Patient Records regulations: The Federal rules restrict any use of the information to criminally investigate or prosecute any alcohol or drug abuse patient.[facility] the event this information is protected by the Federal Confidentiality of Alcohol and Drug Abuse Patient Records regulations: The Federal rules restrict any use of the information to criminally investigate or prosecute any alcohol or drug abuse patient.[facility] Center[facility] the event this information is protected by the Federal Confidentiality of Alcohol and Drug Abuse Patient Records regulations: The Federal rules restrict any use of the information to criminally investigate or prosecute any alcohol or drug abuse patient.[facility] Center[facility] the event this information is protected by the Federal Confidentiality of Alcohol and Drug Abuse Patient Records regulations: The Federal rules restrict any use of the information to criminally investigate or prosecute any alcohol or drug abuse patient.[facility] Center[facility] the event this information is protected by the Federal Confidentiality of Alcohol and Drug Abuse Patient Records regulations: The Federal rules restrict any use of the information to criminally investigate or prosecute any alcohol or drug abuse patient.[facility] Center[facility] the event this information is protected by the Federal Confidentiality of Alcohol and Drug Abuse Patient Records regulations: The Federal rules restrict any use of the information to criminally investigate or prosecute any alcohol or drug abuse patient.[facility] Center[facility] the event this information is protected by the Federal Confidentiality of Alcohol and Drug Abuse Patient Records regulations: The Federal rules restrict any use of the information to criminally investigate or prosecute any alcohol or drug abuse patient.[facility] CenterIn the event this information is protected by the Federal Confidentiality of Alcohol and Drug Abuse Patient Records regulations: The Federal rules restrict any use of the information to criminally investigate or prosecute any alcohol or drug abuse patient.[facility] CenterIn the event this information is protected by the Federal Confidentiality of Alcohol and Drug Abuse Patient Records regulations: The Federal rules restrict any use of the information to criminally investigate or prosecute any alcohol or drug abuse patient.[facility] Center[facility] the event this information is protected by the Federal Confidentiality of Alcohol and Drug Abuse Patient Records regulations: The Federal rules restrict any use of the information to criminally investigate or prosecute any alcohol or drug abuse patient.[facility] CenterIn the event this information is protected by the Federal Confidentiality of Alcohol and Drug Abuse Patient Records regulations: The Federal rules restrict any use of the information to criminally investigate or prosecute any alcohol or drug abuse patient.[facility] Center[facility] the event this information is protected by the Federal Confidentiality of Alcohol and Drug Abuse Patient Records regulations: The Federal rules restrict any use of the information to criminally investigate or prosecute any alcohol or drug abuse patient.[facility] CenterIn the event this information is protected by the Federal Confidentiality of Alcohol and Drug Abuse Patient Records regulations: The Federal rules restrict any use of the information to criminally investigate or prosecute any alcohol or drug abuse patient.[facility] CenterIn the event this information is protected by the Federal Confidentiality of Alcohol and Drug Abuse Patient Records regulations: The Federal rules restrict any use of the information to criminally investigate or prosecute any alcohol or drug abuse patient.[facility] the event this information is protected by the Federal Confidentiality of Alcohol and Drug Abuse Patient Records regulations: The Federal rules restrict any use of the information to criminally investigate or prosecute any alcohol or drug abuse patient.[facility] CenterIn the event this information is protected by the Federal Confidentiality of Alcohol and Drug Abuse Patient Records regulations: The Federal rules restrict any use of the information to criminally investigate or prosecute any alcohol or drug abuse patient.[facility] CenterIn the event this information is protected by the Federal Confidentiality of Alcohol and Drug Abuse Patient Records regulations: The Federal rules restrict any use of the information to criminally investigate or prosecute any alcohol or drug abuse patient.[facility]In the event this information is protected by the Federal Confidentiality of Alcohol and Drug Abuse Patient Records regulations: The Federal rules restrict any use of the information to criminally investigate or prosecute any alcohol or drug abuse patient.[facility] CenterIn the event this information is protected by the Federal Confidentiality of Alcohol and Drug Abuse Patient Records regulations: The Federal rules restrict any use of the information to criminally investigate or prosecute any alcohol or drug abuse patient.[facility] CenterIn the event this information is protected by the Federal Confidentiality of Alcohol and Drug Abuse Patient Records regulations: The Federal rules restrict any use of the information to criminally investigate or prosecute any alcohol or drug abuse patient.[facility] CenterIn the event this information is protected by the Federal Confidentiality of Alcohol and Drug Abuse Patient Records regulations: The Federal rules restrict any use of the information to criminally investigate or prosecute any alcohol or drug abuse patient.[facility] CenterIn the event this information is protected by the Federal Confidentiality of Alcohol and Drug Abuse Patient Records regulations: The Federal rules restrict any use of the information to criminally investigate or prosecute any alcohol or drug abuse patient.[facility] CenterIn the event this information is protected by the Federal Confidentiality of Alcohol and Drug Abuse Patient Records regulations: The Federal rules restrict any use of the information to criminally investigate or prosecute any alcohol or drug abuse patient.[facility] CenterIn the event this information is protected by the Federal Confidentiality of Alcohol and Drug Abuse Patient Records regulations: The Federal rules restrict any use of the information to criminally investigate or prosecute any alcohol or drug abuse patient.[facility] CenterIn the event this information is protected by the Federal Confidentiality of Alcohol and Drug Abuse Patient Records regulations: The Federal rules restrict any use of the information to criminally investigate or prosecute any alcohol or drug abuse patient.[facility] CenterIn the event this information is protected by the Federal Confidentiality of Alcohol and Drug Abuse Patient Records regulations: The Federal rules restrict any use of the information to criminally investigate or prosecute any alcohol or drug abuse patient.[facility] CenterIn the event this information is protected by the Federal Confidentiality of Alcohol and Drug Abuse Patient Records regulations: The Federal rules restrict any use of the information to criminally investigate or prosecute any alcohol or drug abuse patient.[facility] CenterIn the event this information is protected by the Federal Confidentiality of Alcohol and Drug Abuse Patient Records regulations: The Federal rules restrict any use of the information to criminally investigate or prosecute any alcohol or drug abuse patient.[facility] CenterIn the event this information is protected by the Federal Confidentiality of Alcohol and Drug Abuse Patient Records regulations: The Federal rules restrict any use of the information to criminally investigate or prosecute any alcohol or drug abuse patient.[facility] CenterIn the event this information is protected by the Federal Confidentiality of Alcohol and Drug Abuse Patient Records regulations: The Federal rules restrict any use of the information to criminally investigate or prosecute any alcohol or drug abuse patient.[facility] CenterIn the event this information is protected by the Federal Confidentiality of Alcohol and Drug Abuse Patient Records regulations: The Federal rules restrict any use of the information to criminally investigate or prosecute any alcohol or drug abuse patient.[facility] CenterIn the event this information is protected by the Federal Confidentiality of Alcohol and Drug Abuse Patient Records regulations: The Federal rules restrict any use of the information to criminally investigate or prosecute any alcohol or drug abuse patient.[facility] CenterIn the event this information is protected by the Federal Confidentiality of Alcohol and Drug Abuse Patient Records regulations: The Federal rules restrict any use of the information to criminally investigate or prosecute any alcohol or drug abuse patient.[facility] CenterIn the event this information is protected by the Federal Confidentiality of Alcohol and Drug Abuse Patient Records regulations: The Federal rules restrict any use of the information to criminally investigate or prosecute any alcohol or drug abuse patient.[facility] CenterIn the event this information is protected by the Federal Confidentiality of Alcohol and Drug Abuse Patient Records regulations: The Federal rules restrict any use of the information to criminally investigate or prosecute any alcohol or drug abuse patient.[facility] CenterIn the event this information is protected by the Federal Confidentiality of Alcohol and Drug Abuse Patient Records regulations: The Federal rules restrict any use of the information to criminally investigate or prosecute any alcohol or drug abuse patient.[facility] CenterIn the event this information is protected by the Federal Confidentiality of Alcohol and Drug Abuse Patient Records regulations: The Federal rules restrict any use of the information to criminally investigate or prosecute any alcohol or drug abuse patient.[facility] CenterIn the event this information is protected by the Federal Confidentiality of Alcohol and Drug Abuse Patient Records regulations: The Federal rules restrict any use of the information to criminally investigate or prosecute any alcohol or drug abuse patient.[facility] CenterIn the event this information is protected by the Federal Confidentiality of Alcohol and Drug Abuse Patient Records regulations: The Federal rules restrict any use of the information to criminally investigate or prosecute any alcohol or drug abuse patient.[facility] CenterIn the event this information is protected by the Federal Confidentiality of Alcohol and Drug Abuse Patient Records regulations: The Federal rules restrict any use of the information to criminally investigate or prosecute any alcohol or drug abuse patient.[facility] CenterIn the event this information is protected by the Federal Confidentiality of Alcohol and Drug Abuse Patient Records regulations: The Federal rules restrict any use of the information to criminally investigate or prosecute any alcohol or drug abuse patient.[facility] CenterIn the event this information is protected by the Federal Confidentiality of Alcohol and Drug Abuse Patient Records regulations: The Federal rules restrict any use of the information to criminally investigate or prosecute any alcohol or drug abuse patient.[facility] CenterIn the event this information is protected by the Federal Confidentiality of Alcohol and Drug Abuse Patient Records regulations: The Federal rules restrict any use of the information to criminally investigate or prosecute any alcohol or drug abuse patient.[facility] CenterIn the event this information is protected by the Federal Confidentiality of Alcohol and Drug Abuse Patient Records regulations: The Federal rules restrict any use of the information to criminally investigate or prosecute any alcohol or drug abuse patient.[facility] CenterIn the event this information is protected by the Federal Confidentiality of Alcohol and Drug Abuse Patient Records regulations: The Federal rules restrict any use of the information to criminally investigate or prosecute any alcohol or drug abuse patient.[facility] CenterIn the event this information is protected by the Federal Confidentiality of Alcohol and Drug Abuse Patient Records regulations: The Federal rules restrict any use of the information to criminally investigate or prosecute any alcohol or drug abuse patient.[facility] CenterIn the event this information is protected by the Federal Confidentiality of Alcohol and Drug Abuse Patient Records regulations: The Federal rules restrict any use of the information to criminally investigate or prosecute any alcohol or drug abuse patient.[facility] CenterIn the event this information is protected by the Federal Confidentiality of Alcohol and Drug Abuse Patient Records regulations: The Federal rules restrict any use of the information to criminally investigate or prosecute any alcohol or drug abuse patient.[facility] CenterIn the event this information is protected by the Federal Confidentiality of Alcohol and Drug Abuse Patient Records regulations: The Federal rules restrict any use of the information to criminally investigate or prosecute any alcohol or drug abuse patient.[facility] CenterIn the event this information is protected by the Federal Confidentiality of Alcohol and Drug Abuse Patient Records regulations: The Federal rules restrict any use of the information to criminally investigate or prosecute any alcohol or drug abuse patient.[facility] CenterIn the event this information is protected by the Federal Confidentiality of Alcohol and Drug Abuse Patient Records regulations: The Federal rules restrict any use of the information to criminally investigate or prosecute any alcohol or drug abuse patient.[facility] CenterIn the event this information is protected by the Federal Confidentiality of Alcohol and Drug Abuse Patient Records regulations: The Federal rules restrict any use of the information to criminally investigate or prosecute any alcohol or drug abuse patient.[facility] CenterIn the event this information is protected by the Federal Confidentiality of Alcohol and Drug Abuse Patient Records regulations: The Federal rules restrict any use of the information to criminally investigate or prosecute any alcohol or drug abuse patient.[facility] CenterIn the event this information is protected by the Federal Confidentiality of Alcohol and Drug Abuse Patient Records regulations: The Federal rules restrict any use of the information to criminally investigate or prosecute any alcohol or drug abuse patient.[facility] CenterIn the event this information is protected by the Federal Confidentiality of Alcohol and Drug Abuse Patient Records regulations: The Federal rules restrict any use of the information to criminally investigate or prosecute any alcohol or drug abuse patient.[facility] CenterIn the event this information is protected by the Federal Confidentiality of Alcohol and Drug Abuse Patient Records regulations: The Federal rules restrict any use of the information to criminally investigate or prosecute any alcohol or drug abuse patient.[facility] CenterIn the event this information is protected by the Federal Confidentiality of Alcohol and Drug Abuse Patient Records regulations: The Federal rules restrict any use of the information to criminally investigate or prosecute any alcohol or drug abuse patient.[facility] CenterIn the event this information is protected by the Federal Confidentiality of Alcohol and Drug Abuse Patient Records regulations: The Federal rules restrict any use of the information to criminally investigate or prosecute any alcohol or drug abuse patient.[facility] CenterIn the event this information is protected by the Federal Confidentiality of Alcohol and Drug Abuse Patient Records regulations: The Federal rules restrict any use of the information to criminally investigate or prosecute any alcohol or drug abuse patient.[facility] CenterIn the event this information is protected by the Federal Confidentiality of Alcohol and Drug Abuse Patient Records regulations: The Federal rules restrict any use of the information to criminally investigate or prosecute any alcohol or drug abuse patient.[facility] CenterIn the event this information is protected by the Federal Confidentiality of Alcohol and Drug Abuse Patient Records regulations: The Federal rules restrict any use of the information to criminally investigate or prosecute any alcohol or drug abuse patient.[facility] CenterIn the event this information is protected by the Federal Confidentiality of Alcohol and Drug Abuse Patient Records regulations: The Federal rules restrict any use of the information to criminally investigate or prosecute any alcohol or drug abuse patient.[facility] CenterIn the event this information is protected by the Federal Confidentiality of Alcohol and Drug Abuse Patient Records regulations: The Federal rules restrict any use of the information to criminally investigate or prosecute any alcohol or drug abuse patient.[facility] CenterIn the event this information is protected by the Federal Confidentiality of Alcohol and Drug Abuse Patient Records regulations: The Federal rules restrict any use of the information to criminally investigate or prosecute any alcohol or drug abuse patient.[facility] the event this information is protected by the Federal Confidentiality of Alcohol and Drug Abuse Patient Records regulations: The Federal rules restrict any use of the information to criminally investigate or prosecute any alcohol or drug abuse patient.[facility] CenterIn the event this information is protected by the Federal Confidentiality of Alcohol and Drug Abuse Patient Records regulations: The Federal rules restrict any use of the information to criminally investigate or prosecute any alcohol or drug abuse patient.[facility] CenterIn the event this information is protected by the Federal Confidentiality of Alcohol and Drug Abuse Patient Records regulations: The Federal rules restrict any use of the information to criminally investigate or prosecute any alcohol or drug abuse patient.[facility]In the event this information is protected by the Federal Confidentiality of Alcohol and Drug Abuse Patient Records regulations: The Federal rules restrict any use of the information to criminally investigate or prosecute any alcohol or drug abuse patient.[facility] CenterIn the event this information is protected by the Federal Confidentiality of Alcohol and Drug Abuse Patient Records regulations: The Federal rules restrict any use of the information to criminally investigate or prosecute any alcohol or drug abuse patient.[facility] CenterIn the event this information is protected by the Federal Confidentiality of Alcohol and Drug Abuse Patient Records regulations: The Federal rules restrict any use of the information to criminally investigate or prosecute any alcohol or drug abuse patient.[facility] CenterIn the event this information is protected by the Federal Confidentiality of Alcohol and Drug Abuse Patient Records regulations: The Federal rules restrict any use of the information to criminally investigate or prosecute any alcohol or drug abuse patient.[facility] CenterIn the event this information is protected by the Federal Confidentiality of Alcohol and Drug Abuse Patient Records regulations: The Federal rules restrict any use of the information to criminally investigate or prosecute any alcohol or drug abuse patient.[facility] CenterIn the event this information is protected by the Federal Confidentiality of Alcohol and Drug Abuse Patient Records regulations: The Federal rules restrict any use of the information to criminally investigate or prosecute any alcohol or drug abuse patient.[facility] CenterIn the event this information is protected by the Federal Confidentiality of Alcohol and Drug Abuse Patient Records regulations: The Federal rules restrict any use of the information to criminally investigate or prosecute any alcohol or drug abuse patient.[facility] CenterIn the event this information is protected by the Federal Confidentiality of Alcohol and Drug Abuse Patient Records regulations: The Federal rules restrict any use of the information to criminally investigate or prosecute any alcohol or drug abuse patient.[facility] CenterIn the event this information is protected by the Federal Confidentiality of Alcohol and Drug Abuse Patient Records regulations: The Federal rules restrict any use of the information to criminally investigate or prosecute any alcohol or drug abuse patient.[facility] CenterIn the event this information is protected by the Federal Confidentiality of Alcohol and Drug Abuse Patient Records regulations: The Federal rules restrict any use of the information to criminally investigate or prosecute any alcohol or drug abuse patient.[facility] CenterIn the event this information is protected by the Federal Confidentiality of Alcohol and Drug Abuse Patient Records regulations: The Federal rules restrict any use of the information to criminally investigate or prosecute any alcohol or drug abuse patient.[facility] CenterIn the event this information is protected by the Federal Confidentiality of Alcohol and Drug Abuse Patient Records regulations: The Federal rules restrict any use of the information to criminally investigate or prosecute any alcohol or drug abuse patient.[facility] CenterIn the event this information is protected by the Federal Confidentiality of Alcohol and Drug Abuse Patient Records regulations: The Federal rules restrict any use of the information to criminally investigate or prosecute any alcohol or drug abuse patient.[facility] CenterIn the event this information is protected by the Federal Confidentiality of Alcohol and Drug Abuse Patient Records regulations: The Federal rules restrict any use of the information to criminally investigate or prosecute any alcohol or drug abuse patient.[facility] CenterIn the event this information is protected by the Federal Confidentiality of Alcohol and Drug Abuse Patient Records regulations: The Federal rules restrict any use of the information to criminally investigate or prosecute any alcohol or drug abuse patient.[facility] CenterIn the event this information is protected by the Federal Confidentiality of Alcohol and Drug Abuse Patient Records regulations: The Federal rules restrict any use of the information to criminally investigate or prosecute any alcohol or drug abuse patient.[facility] CenterIn the event this information is protected by the Federal Confidentiality of Alcohol and Drug Abuse Patient Records regulations: The Federal rules restrict any use of the information to criminally investigate or prosecute any alcohol or drug abuse patient.[facility] CenterIn the event this information is protected by the Federal Confidentiality of Alcohol and Drug Abuse Patient Records regulations: The Federal rules restrict any use of the information to criminally investigate or prosecute any alcohol or drug abuse patient.[facility] CenterIn the event this information is protected by the Federal Confidentiality of Alcohol and Drug Abuse Patient Records regulations: The Federal rules restrict any use of the information to criminally investigate or prosecute any alcohol or drug abuse patient.[facility] CenterIn the event this information is protected by the Federal Confidentiality of Alcohol and Drug Abuse Patient Records regulations: The Federal rules restrict any use of the information to criminally investigate or prosecute any alcohol or drug abuse patient.[facility] CenterIn the event this information is protected by the Federal Confidentiality of Alcohol and Drug Abuse Patient Records regulations: The Federal rules restrict any use of the information to criminally investigate or prosecute any alcohol or drug abuse patient.[facility] CenterIn the event this information is protected by the Federal Confidentiality of Alcohol and Drug Abuse Patient Records regulations: The Federal rules restrict any use of the information to criminally investigate or prosecute any alcohol or drug abuse patient.[facility] CenterIn the event this information is protected by the Federal Confidentiality of Alcohol and Drug Abuse Patient Records regulations: The Federal rules restrict any use of the information to criminally investigate or prosecute any alcohol or drug abuse patient.[facility] CenterIn the event this information is protected by the Federal Confidentiality of Alcohol and Drug Abuse Patient Records regulations: The Federal rules restrict any use of the information to criminally investigate or prosecute any alcohol or drug abuse patient.[facility] CenterIn the event this information is protected by the Federal Confidentiality of Alcohol and Drug Abuse Patient Records regulations: The Federal rules restrict any use of the information to criminally investigate or prosecute any alcohol or drug abuse patient.[facility] CenterIn the event this information is protected by the Federal Confidentiality of Alcohol and Drug Abuse Patient Records regulations: The Federal rules restrict any use of the information to criminally investigate or prosecute any alcohol or drug abuse patient.[facility] Reason for Visit (unrecogniz ed section and content) Reason Comments Physical Therapy Specialty Diagnoses / Procedures Referred By Contac t Referred To Contact [facility] Diagnoses Headache, unspecified headache type Neck tightness Procedures PHYSICAL THERAPY EVALUATION HIGH COMPLEX 45 MINS Constance Klein PA-C [address] [place] [address] Phone: tel: fax: [facility] [address] [place] [address] Referral ID Status Reason Start Date Expiration Date Visits Requested Visits Authorized [id number] Authorized PCP Requested Referral Auto-Generate d Referral 05/26/2025 05/26/[phone] Reason Comments Results Reason Onset Date Comments [...] Contact Audiology Diagnoses Sudden hearing loss, left KrugerAlexei fregoso MD [address] [place] [id number] [facility] [address] [place] [address] Referral ID Status Reason Start Date Expiration Date V isits Requested Visits Authorized [id number] Pending Review 12/04/2023 12/03/2024 1 1 Reason [...] Comments Follow Up Diverticulitis Reason Comments Outside [id number] Ordered Reason Onset Date Comments Refill Request 03/02/2025 Reason Onset Date Comments Results 03/18/2025 Reason Comments Recheck GI issues Reason Comments Outside Testing Carotid US Reason Comments Pain Right jew Reason Onset Date Comments Results 05/12/2025 Reason Comments Abstract Non CCF testing - Re nal Artery US Reason Comments Follow Up headache Reason Comments PT Eval Care Teams (unrecognized sec tion and content) 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 Builder Airplane Relationship Specialty Start Date End Date Fabian Mcmullen MD [address] [place] [address] PCP - General Family Practice 07/21/17 Tube Builder Airplane Relationship Specialty Start Date End Date Fabian Mcmullen MD [address] [place] [address] PCP - General Family Practice 07/21/17 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 Builder Airplane Relationship Specialty Start Date End Date aFbian Mcmullen MD [address] [place] [address] PCP - General Family Practice 07/21/17 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 Builder Airplane Relationship Specialty Start Date End Date Fabian Mcmullen MD [address] [place] [address] PCP - General Family Practice 07/21/17 Tube Builder Airplane Relationship Specialty Start Date End Date Fabian Mcmullen MD [address] [place] [address] PCP - General Family Medicine 07/21/17 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 [place] [address] PCP - General Family Medicine 07/21/17 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 [place] [address] PCP - General Family Medicine 07/21/17 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 [place] [address] PCP - General Family Medicine 07/21/17 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 Builder Airplane Relationship Specialty Start Date End Date Fabian Mcmullen MD [address] [facility] [place] [address] PCP - General Family Medicine 07/21/17 Tube Builder Airplane Relationship Specialty Start Date End Date Fabian Mcmullen MD [address] [facility] [place] [address] PCP - General Family Medicine 07/21/17 Tube Builder Airplane Relationship Specialty Start Date End Date Fabian Mcmullen MD [address] [facility] [place] [address] PCP - General Family Medicine 07/21/17 Tube Builder Airplane Relationship Specialty Start Date End Date Fabian Mcmullen MD [address] [facility] [place] [address] PCP - General Family Medicine 07/21/17 Team [...] Dr. Keenan Bowser MD Emergency Provider Active Tube Builder Airplane Relationship Specialty Start Date End Date Fabian Mcmullen MD [address] [place] [address] PCP - General Family Medicine 07/21/17 Tube Builder Airplane Relationship Specialty Start Date End Date Fabian Mcmullen MD [address] [place] [address] PCP - General Family Medicine 07/21/17 Team Status: Inactive Member Role Status Dates Dr. Fabian Mcmullen MD Primary Care Provider Active Dr. Keenan Bowser MD Attending Provider, Emergency Provider Active Team Status: Active Member Role Status Dates Dr. Fabian Mcmullen MD Primary Care Provider Active Dr. Tavon Rodriguez DO Emergency Provider Active Dr. Parth Guan MD Admit Provider, Attending Provid er Active Tube Builder Airplane Relationship Specialty Start Date End Date Fabian Mcmullen MD [address] [place] [address] PCP - General Family Medicine 07/21/17 Tube Builder Airplane Relationship Specialty Start Date End Date Fabian Mcmullen MD [address] [place] [address] PCP - General Family Medicine 07/21/17 Tube Builder Airplane Relationship Specialty Start Date End Date Fabian Mcmullen MD [address] [place] [address] PCP - General Family Medicine 07/21/17 Tube Builder Airplane Relationship Specialty Start Date End Date Fabian Mcmullen MD [address] [place] [address] PCP - General Family Medicine 07/21/17 Tube Builder Airplane Relationship Specialty Start Date End Date Fabian Mcmullen MD [address] [place] [address] PCP - General Family Medicine 07/21/17 Tube Builder Airplane Relationship Specialty Start Date End Date Fabian Mcmullen MD [address] [place] [address] PCP - General Family Medicine 07/21/17 Team [...] MD Primary Care Provider Active Gerhard Juarez DECORATOR HAND, DECORATOR HAND-C Attending Provider Active Team Status: Inactive Member Role Status Dates Dr. Fabian Mcmullen MD Primary Care Provider Active Dr. Edgar Scott MD Attending Provider, Referring Pro vider Active Team Status: Inactive Member Role Status Dates Dr. Fabian Mcmullen MD Primary Care Provider Active Dr. Tavon Rdoriguez DO Emergency Provider Active Dr. Parth Guan MD Admit Provider, Other Provider A ctive Dr. Caitlin Cadena MD Attending Provider Active Tube Builder Airplane Relationship Specialty Start Date End Date Fabian Mcmullen MD [address] [place] [address] PCP - General Family Medicine 07/21/17 Tube Builder Airplane Relationship Specialty Start Date End Date Fabian Mcmullen MD [address] [place] [address] PCP - General Family Medicine 07/21/17 Tube Builder Airplane Relationship Specialty Start Date End Date Fabian Mcmullen MD [address] [place] [address] PCP - General Family Medicine 07/21/17 Team Status: Inactive Member Role Status Dates Dr. Fabian Mcmullen MD Primary Care Provider Active Dr. Christian Trejo MD Emergency Provider Active Tube Builder Airplane Relationship Specialty Start Date End Date Fabian Mcmullen MD [address] [place] [phone] (Work) PCP - General Family Medicine 11/14/23 Tube Builder Airplane Relationship Specialty Start Date End Date Fabian Mcmullen MD [address] [place] [phone] (Work) PCP - General Family Medicine 11/14/23 Tube Builder Airplane Relationship Specialty Start Date End Date Fabian Mcmullen MD [address] [place] [phone] (Work) PCP - General Family Medicine 11/14/23 Tube Builder Airplane Relationship Specialty Start Date End Date Fabian Mcmullen MD [address] [place] [address] PCP - General Family Medicine 07/21/17 Tube Builder Airplane Relationship Specialty Start Date End Date Fabian Mcmullen MD [address] [place] [address] PCP - General Family Medicine 07/21/17 Tube Builder Airplane Relationship Specialty Start Date End Date Fabian Mcmullen MD [address] [facility] [place] [address] PCP - General Family Medicine 07/21/17 Tube Builder Airplane Relationship Specialty Start Date End Date Fabian Mcmullen MD [address] [facility] [place] [address] PCP - General Family Medicine 07/21/17 Tube Builder Airplane Relationship Specialty Start Date End Date Fabian Mcmullen MD [address] [facility] [place] [address] PCP - General Family Medicine 07/21/17 Tube Builder Airplane Relationship Specialty Start Date End Date Fabian Mcmullen MD [address] [place] [address] PCP - General Family Medicine 07/21/17 Katie Chaudhari, WAYLON.CAMPGROUND ATTENDANT [address] [place] [address] Data Warehouse Manager Family Medicine 09/20/24 Constance Klein PA-C [address] [place] [address] Data Warehouse Manager Family Medicine 09/20/24 Tube Builder Airplane Relationship Specialty Start Date End Date Fabian Mcmullen MD [address] [facility] [place] [address] PCP - General Family Medicine 07/21/17 Katie Chaudhari, WAYLON.CAMPGROUND ATTENDANT [address] [place] [address] Data Warehouse Manager Family Medicine 09/20/24 Constance Klein PA-C [address] [place] [address] Data Warehouse Manager Family Medicine 09/20/24 Tube Builder Airplane Relationship Specialty Start Date End Date Fabian Mcmullen MD [address] [place] [address] PCP - General Family Medicine 07/21/17 Katie Chaudhari, WAYLON.CAMPGROUND ATTENDANT [address] [place] [address] Data Warehouse Manager Family Medicine 09/20/24 Consatnce Klein PA-C [address] [place] [address] Data Ware[address] [facility] 09/20/24 Tube Builder Airplane Relationship Specialty Start Date End Date Fabian Mcmullen MD [address] [place] [address] PCP - General Family Medicine 07/21/17 Katie Chaudhari, WAYLON.CAMPGROUND ATTENDANT [address] [place] [address] Data Warehouse Manager Family Medicine 09/20/24 Constance Klein PA-C [address] [place] [address] Data Warehouse Manager Family Medicine 09/20/24 Tube Builder Airplane Relationship Specialty Start Date End Date Fabian Mcmullen MD [address] [place] [address] PCP - General Family Medicine 07/21/17 Katie Chaudhari, ENGLISH COMPOSITION TEACHER.CAMPGROUND ATTENDANT [address] [place] [address] [facility] 09/20/24 Constance Klein PA-C [address] [place] [address] [facility] 09/20/24 Team Status: Active Member Role Status Dates Dr. Fabian Mcmullen MD Primary Care Provider Active Team Status: Inactive Member Role Status Dates Dr. Fabian Mcmullen MD Primary Care Provider Active Start: January 26, 2025 End: January 26, 2025 Dr. Isaura Shipley DO Emergency Provider Active S tart: January 26, 2025 End: January 26, 2025 Tube Builder Airplane Relationship Specialty Start Date End Date Fabian Mcmullen MD [address] [place] [address] PCP - General Family Medicine 01/19/25 Katie Chaudhari, WAYLON.CAMPGROUND ATTENDANT [address] [place] [address] [facility] 09/20/24 Constance Klein PA-C [address] [place] [address] [facility] 09/20/24 Tube Builder Airplane Relationship Specialty Start Date End Date Fabian Mcmullen MD [address] [place] [address] PCP - General Family Medicine 01/19/25 Katie Chaudhari, ENGLISH COMPOSITION TEACHER.CAMPGROUND ATTENDANT [address] [place] [address] [facility] 09/20/24 Constance Klein PA-C [address] [place] [address] Data Warehouse Manager Family Medicine 09/20/24 Tube Builder Airplane Relationship Specialty Start Date End Date Fabian Mcmullen MD [address] [place] [address] PCP - General Family Medicine 01/19/25 Katie Chaudhari APRN.CAMPGROUND ATTENDANT [facility] [place] [address] Data Warehouse Manager Family Medicine 09/20/[address] PA-C [facility] [place] [address] [facility] 09/[facility] Tube Builder Airplane Relationship Specialty Start Date End Date Fabian Mcmullen MD [address] [place] [address] PCP - General Family Medicine 01/19/25 Katie Chaudhari APRN.CAMPGROUND ATTENDANT [address] [place] [address] Data Warehouse Manager Family Medicine 09/20/24 Constance Klein PA-C [address] [place] [address] Data Warehouse Manager Family Medicine 09/20/24 Tube Builder Airplane Relationship Specialty Start Date End Date Fabian Mcmullen MD [address] [place] [address] PCP - General Family Medicine 01/19/25 Katie Chaudhari APRN.CAMPGROUND ATTENDANT [facility] [place] [address] Data Warehouse Manager Family Medicine 09/20/24 Constance Klein PA-C [address] [place] [address] [facility] 09/20/24 Tube Builder Airplane Relationship Specialty Start Date End Date Fabian Mcmullen MD [address] [place] [address] PCP - General Family Medicine 01/19/25 Katie Chaudhari APRN.CAMPGROUND ATTENDANT [address] [place] [address] [facility] 09/20/24 Constance Klein PA-C [address] [place], [place] [id number] [facility] 09/20/24 Team Status: Inactive Member Role Status [...] February 20, 2025 End: February 20, 2025 Tube Builder Airplane Relationship Specialty Start Date End Date Fabian Mcmullen MD [address] [place], [place] [address] PCP - General Family Medicine 01/19/25 Constance Klein PA-C [address] [place], [place] [address] [facility] 09/20/24 Team Status: Inactive Member Role Status Dates Dr. Fabian Mcmullen MD Primary Care Provider Active Start: March 04, 2025 End: March 04, 2025 Dr. Fabian Mcmullen MD Referring Provider Active Start: March 04, 2025 End: March 04, 2025 Dr. Aleksandar Quigley DO Attending Provider Active Start: March 04, 2025 End: March 04, 2025 Tube Builder Airplane Relationship Specialty Start Date End Date Fabian Mcmullen MD [address] [place], [place] [address] PCP - General Family Medicine 01/19/25 Constance Klein PA-C [address] [place], [place] [address]45601 [facility] 09/20/24 Tube Builder Airplane Relationship Specialty Start Date End Date Fabian Mcmullen MD [address] [place], [place] [address] PCP - General Family Medicine 01/19/25 Katie Chaudhari APRN.CNP [address] [place], [place] 9495[address] [facility] Family [facility] 03/16/25 Constance Klein PA-C [address] [place] [address] Data Warehouse [facility] 03/16/25 Tube Builder Airplane Relationship Specialty Start Date End Date Fabian Mcmullen MD [address] [place] [phone] PCP - General Family Medicine 01/19/25 Katie Chaudhari APRN.CNP [address] [place] [phone] Data Warehouse Manager Family Medicine 03/16/25 Constance Klein PA-C [address] [place] [address] Data Warehouse Manager Family Medicine 03/16/25 Team Status: Active Member Role/Relationship Status [...] April 15, 2025 End: April 15, 2025 Tube Builder Airplane Relationship Specialty Start Date End Date Fabian Mcmullen MD [address] [place] [address] PCP - General Family Medicine 01/19/25 Katie Chaudhari APRN.CNP [address] [place] [address] Data [facility]house [facility] 03/16/25 Constance Klein PA-C [address] [place], [place] [phone] [facility] 03/16/25 Team Status: Inactive Member Role/Relationship Status [...] Provider Active S tart: April 24, 2025 Tube Builder Airplane Relationship Specialty Start Date End Date Fabian Mcmullen MD [address] [place] [id number] PCP - General Family Medicine 01/19/25 Katie Chaudhari APRN.CAMPGROUND ATTENDANT [address] [place] [address] Data Warehouse Manager Family Medicine 03/16/25 Constance Klein PA-C [address] [place] [address] Data Warehouse Manager Family Medicine 03/16/25 Tube Builder Airplane Relationship Specialty Start Date End Date Fabian Mcmullen MD [address] [place] [address] PCP - General Family Medicine 01/19/25 Katie Chaudhari APRN.CAMPGROUND ATTENDANT [address] [place] [address] Data Warehouse Manager Family Medicine 03/16/25 Constance Klein PA-C [address] [place] [address] Data Warehouse Manager Family Medicine 03/16/25 Tube Builder Airplane Relationship Specialty Start Date End Date Fabian Mcmullen MD [address] [place] [address] PCP - General Family Medicine 01/19/25 Katie Chaudhari ENGLISH COMPOSITION TEACHER.CAMPGROUND ATTENDANT [facility] [place] [address] Data Warehouse Manager Family Medicine 03/16/25 Constance Klein PA-C [address] [place] [address] Data Warehouse Manager Family Medicine 03/16/25 Tube Builder Airplane Relationship Specialty Start Date End Date Fabian Mcmullen MD [address] [place] [address] PCP - General Family Medicine 01/19/25 Katie Chaudhari APRN.CNP [address] [place] [address] [id number] Data Warehouse Manager Family Medicine 03/16/25 Constance Klein PA-C [address] [place] [phone] Data Warehouse Manager Family [facility] 03/16/25 Team Status: Active Member Role/Relationship Status [...] May 20, 2025 End: May 20, 2025 Team Status: Active Member Role/Relationship Status Dates Dr. Fabian Mcmullen MD Primary Care Provider Active Start: April 24, 2025 Dr. Alexei Wells MD Attending Provider Active S tart: April 24, 2025 ELVIS Raza Referring Provider Active Star t: April 24, 2025 Team Status: Inactive Member Role/Relationship Status Dates Dr. Fabian Mcmullen MD Primary Care Provider Active Start: May 15, 2025 End: May 15, 2025 ELVIS Raza Attending Provider Active Star t: May 15, 2025 End: May 15, 2025 ELVIS Raza Referring Provider Active Star t: May 15, 2025 End: May 15, 2025 Team Status: Active Member Role/Relationship Status Dates Dr. Fabian Mcmullen MD Primary Care Provider Active Start: May 22, 2025 ELVIS Raza Attending Provider Active Star t: May 22, 2025 ELVIS Raza Referring Provider Active Star t: May 22, 2025 Team Status: Inactive Member Role/Relationship Status [...] April 15, 2025 End: April 15, 2025 Team Status: Inactive Member Role/Relationship [...] Provider Active S tart: April 24, 2025 ELVIS Raza Referring Provider Active Star t: April 24, 2025 Team Status: Inactive Member Role/Relationship Status Dates Dr. Fabian Mcmullen MD Primary Care Provider Active Start: May 15, 2025 End: May 15, 2025 ELVIS Raza Attending Provider Active Star t: May 15, 2025 End: May 15, 2025 ELVIS Raza Referring Provider Active Star t: May 15, 2025 End: May 15, 2025 Team Status: Active Member [...] May 20, 2025 End: May 20, 2025 Team Status: Inactive Member Role/Relationship Status Dates Dr. Fabian Mcmullen MD Primary Care Provider Active Start: May 22, 2025 End: May 22, 2025 ELVIS Raza Attending Provider Active Star t: May 22, 2025 End: May 22, 2025 ELVIS Raza Referring Provider Active Star t: May 22, 2025 End: May 22, 2025 Tube Builder Airplane Relationship Specialty Start Date End Date Fabian Mcmullen MD [address] [place] [address] PCP - General Family Medicine 01/19/25 Katie Chaudhari APRN.CAMPGROUND ATTENDANT [address] [place] [address] [facility] 03/16/25 Constance Klein PA-C [address] [place] [address] [facility] 03/16/25 Tube Builder Airplane Relationship Specialty Start Date End Date Fabian Mcmullen MD [address] [place] [address] PCP - General Family Medicine 01/19/25 Katie Chaudhari APRN.CAMPGROUND ATTENDANT [address] [place] [address] [facility] 03/16/25 Constance Klein PA-C [address] [place] [address] [facility] 03/16/25 Tube Builder Airplane Relationship Specialty Start Date End Date Fabian Mcmullen MD [address] [place] [address] PCP - General Family Medicine 01/19/25 Katie Chaudhari, WAYLON.CAMPGROUND ATTENDANT [address] [place] [address] [facility] 03/16/25 Constance Klein PA-C [address] [place] [address] [facility] 03/16/25 Goals (unrecognized section and content) Goals may [...] section and content) DATE CREATED AUTHOR 12/05/2023 [facility] DATE CREATED AUTHOR AUTHOR'S ORGANIZ ATION 06/13/2025 [facility] DATE CREATED AUTHOR AUTHOR'S ORGANIZ ATION 08/06/2025 [facility] FOR RECORDS PERTAINING TO PATIENTS [...] BE BASED ON THE PRIMARY CLINICAL RECORDS. [facility] [employer], [employer] [facility]. provides no warranty or guarantee of the accuracy or completeness of information in this document.
--- NOTE | 2025-10-09 15:37 | EX.ED.DYSGE1 ---
HPI History of Present Illness Chief Complaint: Abd Pain Detail of Chief Complaint: Left lower quadrant abdominal pain Informant: patient Onset/Context/Timing Onset: Days (Sunday, October 05) Context: Gradual Onset Timing: Continuous Quality: Pain Location: Left lower quadrant Current Severity: Mild Maximum Severity: Moderate Worsened by: Walking and changing position Relieved by: Nothing Associated Symptoms Associated Symptoms: Diarrhea with significant Sunday and Sunday. Also complains of nausea Narrative Narrative: Patient is a 74-year-old woman. She has history of C. difficile colitis, diverticulitis, aortic insufficiency, and osteoarthritis who presents with left lower quad abdominal pain. She has had nausea. She did have diarrhea. The diarrhea is resolved. At most she had 5 stools per day. That occurred on Sunday and Sunday. She has not been on any antibiotic in the past month. She is no ill contacts. She denied blood or mucus in her diarrhea. She states is now formed. She complains of chills. She has had no documented fever and denies subjective fever. She denies dysuria, frequency, urgency or hematuria. Denies change in the color of her urine. She denies history of renal ureterolithiasis. Prior similar symptoms: Yes (Diverticulitis, last diagnosed January [address] Yeager.) Recent Illness/Hospitalization: No PFSH PFS Medical History Diverticulitis EVELYN (acute kidney injury) Hypotension Near syncope Aortic insufficiency Insomnia LALO (generalized anxiety disorder) Elevated plasma metanephrines Osteoporosis Essential hypertension Dehydration Diarrhea Sleep apnea Fatigue Weight loss Nausea Hemorrhoid History of Clostridium difficile colitis Osteoarthritis Chronic back pain Syncope Gastroenteritis Home Medications ?Medication ?Instructions ?Recorded ?Last Taken ?Type multivitamin 1 ea PO DAILY supplement 10/11/15 04/21/23 History hydrochlorothiazide 12.5 mg capsule 12.5 mg PO QDAY blood pressure 02/14/18 04/26/23 History alendronate 70 mg tablet 70 mg PO QWEEK bones 04/18/23 04/16/23 History lisinopril 40 mg tablet 40 mg PO DAILY blood pressure 04/18/23 04/26/23 History loratadine 10 mg tablet (Claritin) 10 mg PO DAILY allergies 04/27/23 04/26/23 History acyclovir 800 mg tablet 800 mg PO DAILY PRN FEVER BLISTER 07/11/23 Unknown History aspirin 81 mg chewable tablet 1 tab PO DAILY 11/27/23 Unknown History potassium chloride 8 mEq 8 meq PO DAILY 11/27/23 Unknown History capsule,extended release fluticasone propionate 50 2 spray intranasal BID PRN nasal 04/15/25 Unknown History mcg/actuation nasal congestion spray,suspension amoxicillin 875 mg-potassium 875 mg (0.875 x 875-125 mg) PO 10/09/25 Unknown Rx clavulanate 125 mg tablet Q12H #20 TABLETS oxycodone-acetaminophen 5 mg-325 1 tab PO Q6H PRN PRN Pain 3 days 10/09/25 Unknown Rx mg tablet #12 TABLETS zolpidem 10 mg tablet 10 mg PO QHS PRN PRN sleep 10/09/25 Unknown History Allergy/AdvReac Type Severity Reaction Status Date / Time ragweed pollen Allergy Intermediate Shortness Verified 10/09/25 14:06 of breath Sulfa (Sulfonamide Allergy Intermediate Hives Verified 10/09/25 14:06 Antibiotics) azithromycin (From Zithromax AdvReac Nausea Verified 10/09/25 14:06 Z-Bruce) cat dander (cats) AdvReac Other Verified 10/09/25 14:06 Family History Mother Hypertension Father Heart disease Cancer skin cancer Grandmother Heart disease CVA (cerebral vascular accident) Surgical History History of tonsillectomy History of colonoscopy Social History Smoking Status: Never smoker alcohol intake: never substance use type: does not use ROS ROS ED Constitutional Constitutional ED: Reports chills; Denies fever(s), subjective or sweats Eyes Eyes: Denies blurry vision, change in vision or diplopia ENT ENT ED: Denies ear pain, rhinorrhea or sore throat Cardiovascular Cardiovascular: Denies chest pain or palpitations Respiratory/Chest Respiratory/Chest: Denies cough, dyspnea or dyspnea on exertion Gastrointestinal Gastrointestinal: Reports abdominal pain, diarrhea and nausea; Denies constipation, melena or vomiting Genitourinary Genitourinary ED: Denies dysuria, hematuria or urinary frequency Musculoskeletal Musculoskeletal: Denies arthralgias, back pain, myalgias or neck pain Integumentary Denies rash Neurologic Neurologic: Denies headache(s) or paresthesias Hematologic/Lymphatic Hematologic/Lymphatic: Reports systems reviewed and no addt'l complaints, except as documented EXAM Physical Exam Const Vital Signs: 10/09/25 14:05 10/09/25 15:48 10/09/25 16:28 Temperature 97 F L Temperature Source Temporal Pulse Rate 89 86 Respiratory Rate 16 16 Blood Pressure 171/78 H 184/71 H Blood Pressure Mean 109 108 Pulse Ox 100 100 100 Oxygen Delivery Method Room Air 10/09/25 16:30 10/09/25 16:59 10/09/25 17:00 Temperature Temperature Source Pulse Rate 71 Respiratory Rate 16 Blood Pressure 194/64 H 195/66 H Blood Pressure Mean 99 100 Pulse Ox 100 100 100 Oxygen Delivery Method Positive well nourished and well developed General Appearance ED: well developed and NAD; Negative for cyanotic, diaphoretic or pallor HEENT Reports moist mucous membranes HEENT Narrative: Head is atraumatic no cephalic. Ears normal. Nares patent. Eyes PERRL and EOMs intact bilaterally General Eye ED: Negative for pale conjunctiva or scleral icterus Neck no lymphadenopathy, supple and no JVD Chest Wall inspection of chest normal and palpation of chest normal Resp normal respiratory effort and clear to auscultation bilaterally Cardio regular rate, regular rhythm, S1 normal heart sound, S2 normal heart sound and no murmurs GI hepatosplenomegaly; Negative for normal to inspection, nondistended, normoactive bowel sounds, non-tender, non-distended or no masses Inspection: abdominal distention Auscultation: hypoactive bowel sounds Palpation: soft, tender LLQ, guarding LLQ and rebound tenderness present other (Left lower quadrant abdominal pain); Negative for splenomegaly or mass Narrative: There is no suprapubic tenderness. There is no CVA tenderness. There is no inguinal lymphadenopathy or mass. Back/Spine no CVA tenderness Extremity normal to inspection General Extremety ED: Negative for edema or tenderness General Extremity: Negative for edema Neuro oriented x3 and CN's II-XII intact bilaterally Sensorium / Orientation: alert Psych mental status grossly normal Skin no rashes or lesions noted, no wounds and skin turgor normal General Skin Exam: Negative for jaundice or pallor MDM MDM MDM Narrative Medical decision making narrative: Differential diagnosis is abdominal pain of unknown etiology, diverticulitis with or without perforation and with or without abscess, CA, unusual presentation for urinary tract infection, infectious colitis and Clostridium with history of colostomy in the past. Will obtain CT of the abdomen with appropriate blood work. Patient drove herself which limits options of pain medicine. Since she has elevated creatinine ketorolac was not ordered. Nurse protocol was initiated. Agree with what was ordered. History & Record Review Additional record(s) reviewed:: Prior inpatient record (Hospitalization April 2023 for acute kidney injury status post diverticular flare.), Prior ED visit (January of this year for diverticulitis and November 2023 for acute infective gastroenteritis) and Prior labs Lab Data Attestation: I reviewed the patient's lab results. Lab results narrative: CBC is unremarkable. Labs: Laboratory Results - last 24 hr 10/09/25 10/09/25 15:20 15:35 WBC 7.4 RBC 4.30 Hgb 12.5 Hct 39.0 MCV 90.7 MCH 29.1 MCHC 32.1 RDW Std Deviation 46.6 H RDW Coeff of Pat 13.9 Plt Count 259 MPV 10.2 Immature Gran % (Auto) 0.300 Neut % (Auto) 49.5 Lymph % (Auto) 36.1 [place] % (Auto) 11.1 H Eos % (Auto) 2.3 Baso % (Auto) 0.7 Absolute Neuts (auto) 3.7 Absolute Lymphs (auto) 2.67 Nucleated RBC % 0 Sodium 137 Potassium 3.7 Chloride 103 Carbon Dioxide 23.1 Anion Gap 11 BUN 15 Creatinine 0.96 Estim Creat Clear Calc 35.81 L Est GFR (MDRD) Non-Af 61 BUN/Creatinine Ratio 15.3 Glucose 104 H Calcium 9.9 Total Bilirubin 0.31 AST 24 ALT 13 Alkaline Phosphatase 91 Total Protein 7.4 Albumin 4.1 Globulin 3.3 Albumin/Globulin Ratio 1.3 Lipase 54 Urine Color Straw Urine Clarity Clear Urine pH 6.0 Ur Specific [place] 1.015 Urine Protein Negative Urine Glucose (UA) Normal Urine Ketones Negative Urine Occult Blood Negative Urine Nitrite Negative Urine Bilirubin Negative Urine Urobilinogen Normal Ur Leukocyte Esterase 25 H Urine RBC 0-5 SEEN Urine WBC 0-5 SEEN Ur Squamous Epith Cells 0-5 SEEN Urine Bacteria RARE Urine Mucus 0 SEEN Radiography Diagnostic Testing: Clinical Impression(s) from Imaging Studies Abdomen/Pelvis CT 10/09/25 15:26 IMPRESSION: Colonic diverticulosis with thickening of the sigmoid colon concerning for sigmoiditis/diverticulitis. Reading Location: [facility] Treatment and Re-Evaluation :: Patient was reexamined at 1738. She still has some tenderness in the left lower quadrant. There is no rebound tenderness and there is no involuntary guarding. Her pain is improved. In light of the fact that she is not febrile, has a normal white count and has no nausea vomiting in my opinion she is an appropriate candidate for outpatient therapy. She was informed that she probably has a 10% chance of of returning. She understands. She was given specific signs and symptoms that mandate to her for her to come back. She states she would. Discharge Plan Triage Chief Complaint: Abd Pain ED Provider: Adolfo Malagon Dx/Rx/DC Orders Clinical Impression: Diverticulitis of sigmoid colon, Acute left lower quadrant pain, Essential hypertension Instructions: ED Diverticulitis Prescriptions: New oxycodone-acetaminophen 5-325 mg tablet 1 tab PO Q6H PRN PRN (Reason: Pain) 3 Days Qty: 12 0RF amoxicillin-pot clavulanate 875-125 mg tablet 875 mg PO Q12H Qty: 20 0RF No Action hydrochlorothiazide 12.5 mg capsule 12.5 mg PO QDAY alendronate 70 mg tablet 70 mg PO QWEEK Patient Comments: takes on sunday lisinopril 40 mg tablet 40 mg PO DAILY acyclovir 800 mg tablet 800 mg PO DAILY PRN (Reason: FEVER BLISTER) Patient Comments: when blisters occur multivitamin 1 EACH tablet 1 ea PO DAILY Patient Comments: supplement loratadine [Claritin] 10 mg tablet 10 mg PO DAILY potassium chloride 8 mEq capsule, extended release 8 meq PO DAILY Patient Comments: Take 1 capsules by mouth two times a day. aspirin 81 mg tablet,chewable 1 tab PO DAILY fluticasone propionate 50 mcg/actuation spray,suspension 2 spray INTRANASAL BID PRN (Reason: nasal congestion) Patient Comments: USE 2 SPRAYS IN EACH NOSTRIL ONCE DAILY. RINSE MOUTH AFTER USE. zolpidem 10 mg tablet 10 mg PO QHS PRN PRN (Reason: sleep) Primary Care Provider: Fabian Graham Referrals: Fabian Graham MD [Primary Care Provider, Family Practice] - 3-5 Days if not improving Aleksandar Quigley DO [Med Staff - Active Staff, Gastroenterology] - 1 Week if not improving Activity Restrictions/Additional Instructions: If you develop a temperature greater than 100, if you have shaking chills, if you are unable to eat or drink anything or it hurts to walk or jump up and down return to the emergency Print Language: Swedish Disposition Disposition: Home, Self Care
[2025-10-09 15:40] LABS: Mucous, Urine 0 SEEN /hpf (<or=2+)
[2025-10-09 15:47] LABS: Color, Urine Straw (Yellow); Glucose, Dipstick Normal (Normal); Ketone-Dipstick Negative (Negative); Leukocyte Esterase-Dipstick 25 /ul (Negative); Nitrite-Dipstick Negative (Negative); Occult Blood-Urine Negative /ul (Negative); Protein-Dipstick Negative (Negative); Specific Gravity, Urine 1.015 (1.002-1.030); Urine Bilirubin Dipstick Negative (Negative)
[2025-10-09 16:01] LABS: AST(SGOT) 24 U/L (<=31); Alanine Aminotransfer ALT/SGPT 13 U/L (<=34); Albumin, Serum 4.1 g/dL (3.4-4.8); Alkaline Phosphatase 91 U/L (35-104); Anion Gap 11 (7-18); BUN 15 mg/dL (4-19); BUN/Creat Ratio 15.3 RATIO (10-20); Calcium,Total 9.9 mg/dL (7.6-11.0); Carbon Dioxide 23.1 mmol/L (20.0-29.0); Chloride 103 mmol/L (96-106); Estimated Creatinine Clearance 35.81 ml/min (50-250); Globulin 3.3 g/dL (2.2-4.2); Glucose 104 mg/dL (70-99); Lipase 54 U/L (13-75); Potassium 3.7 mmol/L (3.5-5.1)
[2025-10-09] MEDS: Piperacil/Tazobactam 4.5 GM in 0.9% Normal Saline (100mL MB+) 100 ML IV (16:05)
[2025-10-09 16:15] LABS: Red Blood Cells-Urine 0-5 SEEN /hpf (0-5); Squamous Epithelial Cells - UA 0-5 SEEN /hpf (5-10)
== END 2025-10-09 17:51 | disposition home or self-care (01) ==
PROVIDERS: Emergency Provider Emergency Medicine; PCP Family Medicine; Visit Provider Emergency Medicine
DX: K57.32 Diverticulitis of large intestine without perforation or abscess without bleeding (principal); I10 Essential (primary) hypertension; G47.30 Sleep apnea, unspecified
CPT/HCPCS: 74177; 80053; 81001; 83690; 85025; 96365; 99283; Q9967; A4216